=== PATIENT | female | born 1970 | race Caucasian/White ===

== ENCOUNTER → 2018-01-16 15:58 | Outpatient (CLI) | payer MEDICAID, SELFPAY ==
--- NOTE | 2018-01-16 16:04 | MRI_ITS ---
STUDY: MRI LEFT MIDFOOT REASON FOR EXAM: Female, 47 years old. Pain across the metatarsals for 3 months with no known injury. Evaluate for stress injury. TECHNIQUE: Standardized fat and water weighted pulse sequences were obtained in all 3 orthogonal planes. COMPARISON: None. FINDINGS: There is moderate arthrosis of the talonavicular, navicular-cuneiform, cuneiform-metatarsal and metatarsal-tarsal articulations (sagittal series 5 images 2-16). Normal first tarsometatarsal articulation. Normal Lisfranc ligament. Normal second and third tarsometatarsal articulations. Normal cuboid fourth and cuboid fifth tarsometatarsal articulation. There is moderate arthrosis of the first metatarsophalangeal joint (coronal T2 series 8 images 8-14). Normal first through fifth metatarsi. There is no evidence of a stress injury. Normal tibialis anterior tendon. Normal extensor hallucis longus tendon. Normal extensor digitorum longus tendons. Normal peroneus longus tendon and distal insertion. Normal peroneus brevis tendon and distal insertion. Normal intrinsic muscles of the mid and forefoot region. Normal extensor digitorum brevis muscle. Normal subcutis adipose space. 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 No evidence of stress injury. Electronically Signed: Osmany Maldonado MD at 17:14 EDT , Service support ,
== END ==
PROVIDERS: Visit Provider Podiatrist
DX: M84.375A Stress fracture, left foot, initial encounter for fracture (principal); S93.602A Unspecified sprain of left foot, initial encounter; M79.672 Pain in left foot; M25.572 Pain in left ankle and joints of left foot
CPT/HCPCS: 73718

== ENCOUNTER 2018-03-13 13:13 | Emergency (ER) | payer MEDICAID, SELFPAY ==
[2018-03-13 13:14] VITALS: BP 112/80; PULSE 103; RESP 16; TEMP 36.3; O2SAT 97; BMI 33.3
--- NOTE | 2018-03-13 13:23 | RAD_ITS ---
STUDY: X-RAY - RIGHT TIBIA AND FIBULA REASON FOR EXAM: Female, 47 years old. Trauma, pain TECHNIQUE: 3 view(s) of the tibia and fibula were obtained. COMPARISON: Right ankle films, same date FINDINGS: Normal visualized tibia. Normal visualized fibula. There is soft tissue swelling along the lateral aspect of the ankle. RAD/Tibia & Fibula 2 Views IMPRESSION: Lateral soft tissue swelling. No discrete fracture. Electronically Signed: Torey Lopez DO at 14:17 EDT Tel , Service support ,
--- NOTE | 2018-03-13 13:24 | ED.VISSUMM ---
- ER Visit Summary Date of Service: 03/13/18 Chief Complaint: Right ankle injury History of Present Illness: The patient is a 47 F who presents to the emergency department with right ankle injury. Patient was walking downstairs with her hands full. She thinks she missed the last 2 steps. She landed with her foot twisted underneath her. She did not strike her head. She denies other injury. She has been unable to bear weight because of pain. Physical Examination: Exam is relatively unremarkable. Mandel test negative. Pulses are normal. Compartments are soft. Patient does have some mild tenderness at the proximal fibula. She also has some tenderness over the medial and lateral malleolus. No tenderness at the head of the fifth metatarsal. Test Results: [] Emergency Department Course and Treatment: The patient was given oral analgesics. Plain films were obtained of the tib-fib and of the ankle. Tib-fib shows no evidence of acute fracture. Ankle shows soft tissue swelling, but no evidence of acute fracture. The patient will be treated with air splint, crutches, and analgesics. OA RRS report was reviewed and is unremarkable. The patient will be discharged home with outpatient orthopedic follow-up as needed. Treatment Plan: [] Disposition: Charge Impression: 1. Right ankle sprain This note was generated with [employer] dictation software. It may contain incorrect words, spelling, and punctuation that were not noted in review of the chart prior to signing ED Disposition - Plan for ED Patient: Chief Complaint: Lower Extremity Injury Instructions: ED Sprain Ankle W X Ray Prescriptions: Hydrocodone Bitart/Apap 5-325 [[place] 5MG-325MG] 1 tab PO Q6H PRN PRN 3 Days #10 tab PRN Reason: Pain Naproxen [Naprosyn] 500 mg PO BID PRN #20 tab Referrals: NOT,TIAGO [Primary Care Provider] - Mamadou Shane DO [STAFF PHYSICIAN] - 1 Week if not improving
[2018-03-13] MEDS: HYDROcodone Bitartrate/Apap 5/325 Tablet PO (13:30)
--- NOTE | 2018-03-13 13:50 | RAD_ITS ---
STUDY: X-RAY - RIGHT ANKLE REASON FOR EXAM: Female, 47 years old. Trauma, pain TECHNIQUE: 4 view(s) of the ankle. COMPARISON: None. FINDINGS: Normal visualized distal tibia and fibula. Normal medial and lateral malleoli. Normal tibiotalar articulation and ankle mortise. Normal visualized talus and calcaneus. The visualized subtalar, talonavicular, calcaneocuboid and tarsal articulations are normal. There is a lucency seen at the base of the fifth metatarsal, on one view only, which may represent a nondisplaced fracture. There is lateral soft tissue swelling. RAD/Ankle min 3 Views IMPRESSION: Question nondisplaced fracture at the base of the fifth metatarsal. Lateral soft tissue swelling. Electronically Signed: Torey Lopez DO at 14:11 EDT Tel , Service support ,
[2018-03-13 14:29] VITALS: PULSE 90; RESP 16
== END 2018-03-13 14:29 | disposition home or self-care (01) ==
LOC: ED 14:13
PROVIDERS: Emergency Provider Emergency Medicine
DX: S93.401A Sprain of unspecified ligament of right ankle, initial encounter (principal); W10.9XXA Fall (on) (from) unspecified stairs and steps, initial encounter; Y93.9 Activity, unspecified; Y92.89 Other specified places as the place of occurrence of the external cause; Y99.9 Unspecified external cause status; E11.9 Type 2 diabetes mellitus without complications; E78.00 Pure hypercholesterolemia, unspecified; Z72.0 Tobacco use; F32.9 Major depressive disorder, single episode, unspecified
CPT/HCPCS: 73590; 73610; 99284

== ENCOUNTER 2018-06-15 22:07 | Emergency (ER) | payer MEDICAID, SELFPAY ==
[2018-06-15 22:08] VITALS: BP 167/92; PULSE 108; RESP 18; TEMP 36.9; O2SAT 95; BMI 37.0
--- NOTE | 2018-06-15 22:35 | ED.VISSUMM ---
- ER Visit Summary Date of Service: 06/15/18 Chief Complaint: Buttock abscess History of Present Illness: The patient is a 47 F with an abscess to the right buttock first noticed 5 days ago. She has been getting significant drainage at home. No fever Physical Examination: Blood pressure is 167/92. She is afebrile at 98.4. Patient is lying prone on the bed in no acute distress. Heart is regular rate and rhythm. Lung sounds are clear. Skin examination reveals a 3 cm diameter abscess to the medial right buttock. Spontaneous drainage is noted with a large moist scab. There is no surrounding satellite is. There is no remaining fluctuance. Test Results: [] Emergency Department Course and Treatment: Let is applied to the wound. Wound is cleansed and fibrous Is removed as well as possible. Quarter inch packing is placed. Bacitracin ointment and dressing is placed. Patient removed the packing in 2 days. She was treated with a course of Bactrim and Keflex, first doses given here. She is instructed on wound care. Treatment Plan: [] Disposition: Discharge Impression: Cutaneous abscess right buttock This note was generated with [employer] dictation software. It may contain incorrect words, spelling, and punctuation that were not noted in review of the chart prior to signing ED Disposition - Plan for ED Patient: Disposition: Home or Assisted Living Chief Complaint: Abscess Instructions: ED Staph Infec Abx Tx Only Prescriptions: Cephalexin [Keflex] 500 mg PO Q6 #40 capsule Smz/Tmp Ds [Bactrim Ds] 1 tablet PO BID #20 tablet Referrals: [facility] Doctor,Out of [Primary Care Provider] - 5-7 Days
[2018-06-15] MEDS: Lidocaine/Epi/Tetracaine 50 ML 1 APPLIC TOPICAL (22:38)
[2018-06-15] MEDS: Cephalexin 250 MG Capsule 500 MG PO (22:54)
[2018-06-15] MEDS: Smz/Tmp Ds Tablet 1 TABLET PO (22:54)
[2018-06-15 23:17] VITALS: BP 137/89; PULSE 88; RESP 18; O2SAT 97
== END 2018-06-15 23:18 | disposition home or self-care (01) ==
LOC: ED 22:43
PROVIDERS: Emergency Provider Emergency Medicine
DX: L02.31 Cutaneous abscess of buttock (principal); E11.9 Type 2 diabetes mellitus without complications; E78.00 Pure hypercholesterolemia, unspecified; M79.7 Fibromyalgia; Z72.0 Tobacco use; F32.9 Major depressive disorder, single episode, unspecified
CPT/HCPCS: 99283; A4216

== ENCOUNTER 2018-08-02 03:09 | Emergency (ER) | payer MEDICAID, SELFPAY ==
[2018-08-02 03:11] VITALS: BP 158/87; PULSE 97; RESP 14; TEMP 36.7; O2SAT 97
[2018-08-02 03:17] VITALS: BP 159/84; PULSE 95; RESP 18; TEMP 36.9; O2SAT 99; BMI 37.8
--- NOTE | 2018-08-02 03:24 | ED.DCSUM_ITS ---
- ER Visit Summary Date of Service: 08/02/18 Chief Complaint: Vaginal pain History of Present Illness: The patient is a 47 F presents to the emergency department vaginal pain. Patient said the symptoms for the past 3 days. She states it felt like a yeast infection, but it is gotten worse. She is been try ing [id number] remedies with little improvement. She states she felt a bump on the left posterior aspect of her labia. She states it hurts to sit and move. She denies any fevers or chills. She is an insulin-dependent diabetic. She states that her sugars been running normally. She is been taking Tylenol with little improvement. She does have an appointment with her DIRECTOR OF QUALITY CONTROL, but not until Friday. Physical Examination: Exam is relatively unremarkable. exam was done with female nurse international manager. The patient has a lot of erythema of the external vaginal canal. She does have a small indurated area the posterior lateral aspect of the left Bartholin's gland, but there is no fluctuance or evidence of abscess. There is adherent white plaque consistent with yeast vaginitis, but no discharge. There is no streaking or evidence of Suellen gangrene. There is no cellulitis down the legs. Test Results: [] Emergency Department Course and Treatment: The patient may have an early Bartholin's gland cyst, but there is no central fluctuance. I do not feel that incision and drainage is appropriate at this time. I did obtain a urine. The patient is also treated with oral Diflucan given the significant evidence of vaginitis and erythema. Her urine shows no evidence of infection. I am going to start the patient on Bactrim. She was counseled on using warm compresses. She does have follow-up in place within 48 hours with her FACULTY RESEARCH ASSISTANT. I do feel that this is safe. She was counseled on concerning symptoms and reasons to return. She will be discharged home. Treatment Plan: [] Disposition: Discharge Impression: 1. Yeast vaginitis 2. Bartholin's gland cyst This note was generated with [employer] software. It may contain incorrect words, spelling, and punctuation that were not noted in review of the chart prior to signing ED Disposition - Plan for ED Patient: Chief Complaint: Abd Pain Instructions: ED Vaginal Infec Fungal Noni Prescriptions: Fluconazole [Diflucan] 150 mg PO X1 #1 tab Smz/Tmp Ds [Bactrim Ds] 1 tab PO BID #14 tab Referrals: Jessie Grey MD [STAFF PHYSICIAN] -
[2018-08-02] MEDS: Fluconazole 100 MG Tablet 150 MG PO (03:26)
[2018-08-02 03:38] LABS: Bacteria 0 SEEN /hpf (None Seen); Mucous, Urine 0 SEEN /hpf (<or=2+); Red Blood Cells-Urine 0 SEEN /hpf (0-5)
[2018-08-02 03:41] LABS: Color, Urine Straw (Yellow); Glucose, Dipstick 1000 mg/dl (Normal); Ketone-Dipstick Negative (Negative); Leukocyte Esterase-Dipstick 25 /ul (Negative); Nitrite-Dipstick Negative (Negative); Occult Blood-Urine Negative /ul (Negative); Protein-Dipstick Negative (Negative); Specific Gravity, Urine 1.015 (1.002-1.030); Urine Bilirubin Dipstick Negative (Negative); Urine Clarity Clear (Clear); Urine Urobilinogen Normal (Normal); Urine pH 6.5 (5.0 - 8.0)
[2018-08-02 03:48] LABS: Squamous Epithelial Cells - UA 0-5 SEEN /hpf (5-10)
[2018-08-02 03:49] LABS: White Blood Cells 0-5 SEEN /hpf (0-5)
[2018-08-02] MEDS: HYDROcodone Bitartrate/Apap 5/325 Tablet PO (03:59)
[2018-08-02] MEDS: Smz/Tmp Ds Tablet 1 TABLET PO (03:59)
== END 2018-08-02 04:01 | disposition home or self-care (01) ==
PROVIDERS: Emergency Provider Emergency Medicine; Family Provider Family Medicine; PCP Family Medicine
DX: B37.3 Candidiasis of vulva and vagina (principal); N75.0 Cyst of Bartholin's gland; E11.9 Type 2 diabetes mellitus without complications; Z79.4 Long term (current) use of insulin; Z87.891 Personal history of nicotine dependence
CPT/HCPCS: 81001; 99283

== ENCOUNTER 2019-05-18 22:29 | Emergency (ER) | payer MEDICAID, SELFPAY ==
[2019-05-10 09:36] VITALS: BMI 37.8
[2019-05-18 22:30] VITALS: BP 173/101; PULSE 106; RESP 20; TEMP 36.6; O2SAT 98; BMI 37.6
[2019-05-18] MEDS: HYDROcodone Bitartrate/Apap 5/325 Tablet PO (22:52)
[2019-05-18] MEDS: 0.9% Normal Saline 1,000 ML 999 ML IV (22:53)
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
[2019-05-18] MEDS: Pregabalin 50 MG Capsule PO (23:01)
--- NOTE | 2019-05-18 23:06 | ED.RN ---
lab called with critical lab results. Glucose 518. Dr. Kent made aware. no new orders at this time
[2019-05-18 23:08] LABS: ALB/GLOB Ratio 0.9 RATIO (0.9-2.4); AST(SGOT) 8 U/L (15-37); Alanine Aminotransfer ALT/SGPT 16 U/L (13-56); Albumin, Serum 3.5 g/dL (3.2-5.0); Alkaline Phosphatase 133 U/L (45-117); Anion Gap 7 (5-15); BUN 25 mg/dL (7-18); BUN/Creat Ratio 17.4 RATIO (10-20); Calcium,Total 8.8 mg/dL (8.5-10.1); Chloride 99 mmol/L (98-107); Creatinine, Serum 1.44 mg/dL (0.55-1.02); EST Glomerular Filtration Rate 41 mL/min (>60); Est Glom Filt Rate - Afr Amer 50 mL/min (>60); Estimated Creatinine Clearance 43.46 ml/min; Glucose 518 mg/dL (74-106); Protein, Total 7.5 g/dL (6.4-8.2); Sodium Level 131 mmol/L (136-145)
[2019-05-18] MEDS: Insulin Lispro 100 UNIT/ML INSULN.PEN 15 UNIT IV (23:45)
[2019-05-19 00:56] LABS: Bedside Glucose 497 mg/dL (70-110)
[2019-05-19 01:12] VITALS: BP 114/68; PULSE 78; RESP 16; O2SAT 95
[2019-05-19 02:51] LABS: Bedside Glucose 194 mg/dL (70-110)
[2019-05-19 03:05] VITALS: BP 99/65; PULSE 90; RESP 18; O2SAT 96
== END 2019-05-19 03:17 | disposition home or self-care (01) ==
PROVIDERS: Emergency Provider Emergency Medicine; Family Provider Internal Medicine; PCP Internal Medicine
DX: E11.42 Type 2 diabetes mellitus with diabetic polyneuropathy (principal); Z91.19 Patient's noncompliance with other medical treatment and regimen; Z91.14 Patient's other noncompliance with medication regimen; E11.65 Type 2 diabetes mellitus with hyperglycemia; F32.9 Major depressive disorder, single episode, unspecified; M79.7 Fibromyalgia; E78.00 Pure hypercholesterolemia, unspecified; Z89.411 Acquired absence of right great toe
CPT/HCPCS: 80048; 80053; 82009; 82962; 96360; 99285; J7030; A4216

== ENCOUNTER → 2019-05-21 15:59 | Outpatient (CLI) | payer MEDICAID, SELFPAY ==
[2019-05-18 22:30] VITALS: BMI 37.6
[2019-05-21 18:55] LABS: M R Staph aureus DNA By PCR Negative (Negative); Probe Check PASS; Specimen Processing Control PASS; Staph aureus DNA By PCR NEGATIVE (Negative)
== END ==
PROVIDERS: Family Provider Internal Medicine; PCP Internal Medicine; Referring Provider Podiatrist; Visit Provider Podiatrist
DX: L60.0 Ingrowing nail (principal)
CPT/HCPCS: 87070; 87075; 87077; 87186; 87205; 87640

== ENCOUNTER 2019-06-12 09:08 | Inpatient (IN) | payer MEDICAID, SELFPAY ==
[2019-06-12] VITALS (10 sets, daily range): BP systolic 102–145; BP diastolic 1–81; PULSE 99–102; RESP 16–19; TEMP 36.9–39.1; O2SAT 94–99; BMI 35.9; BMI 36.8
--- NOTE | 2019-06-12 09:44 | ED.VIS.LOWEX ---
History of Present Illness Informant: Patient Occurred: Weeks - 7 days Mechanism/Context: - - post surgical wound Onset: Days - 7 Context: Gradual Onset Timing: Continuous Quality of Pain: Aching Location: right 2nd toe Current Severity: Moderate Maximum Severity: Severe Worsened by: nothing Relieved by: nothing Associated Symptoms: Negative for: Parasthesia, Weakness, Loss of Funtion Narrative: 48-year-old female presents to the emergency department for a wound check right second toe. Had a callus removed by podiatry 8 days ago. For the last 2 days has noticed worsening signs of infection. The toe is red and swollen. No drainage. No fevers. Having mild to moderate pain. No trauma. Able to ambulate. History of a right great toe amputation. She has not yet been placed on antibiotics. She has not had a fever. She denies any other review of systems. Tetanus Immunization: Unknown Prior similar symptoms: Yes Recent Illness/Hospitalization: No <Abdulaziz Chaney - Last Filed: 06/12/19 11:41> <Zane Sanz - Last Filed: 06/12/19 14:49> Chief Complaint: Lower Extremity Injury Past Medical History Prior records reviewed: Yes Past Medical History: - - Insulin-dependent diabetes, diabetic neuropathy, right great toe amputation Surgical History: - - T+A, BLTL. Smoking Status: Light Smoker (<10/day) - Family History Maternal Family History: Reports: - - Thyroid disease. Paternal Family History: Reports: Asthma <Abdulaziz Chaney - Last Filed: 06/12/19 11:41> <Zane Sanz - Last Filed: 06/12/19 14:49> - Allergies and Home Meds Allergies/Adverse Reactions: Allergies clindamycin Allergy (Verified 05/18/19 22:30) Hives erythromycin base [From E-Mycin] Allergy (Verified 05/18/19 22:30) Hives Review of Systems All systems negative except as indicated General: Denies: Chills, Fever Skin: Reports: Wounds <Abdulaziz Chaney - Last Filed: 06/12/19 11:41> Physical Exam Vital Signs/Narrative: Vital Signs Temp Pulse Resp BP Pulse Ox 06/12/19 09:10 98.9 F 102 H 19 H 121/63 H 98 Inital Vital Signs reviewed: Yes - Extremity Exam Right Foot: - - Right great toe amputation seen. The right second toe is red and swollen there is a small amount of induration and fluctuance on the medial border of the nail. The nail is intact. There is no lymphatic streaking to the proximal toe or into the foot. DP and PT pulse normal. No other redness noted of the foot or the right lower extremity. Cap refill of the second toe is normal. Sensation diminished but this is chronic from her neuropathy. General: Well nourished, Well developed Head: Normocephalic, Atraumatic Eyes: Perrl, EOMI ENT: No Trauma, Moist Mucous Membranes Neck: Nontender, Full ROM Cardiovascular: Regular rate, Regular rhythm, No murmurs Respiratory: No distress, CTA bilaterally, Chest nontender Abdomen: Soft, Nontender, Nondistended, Normal bowel sounds, No masses Back: Nontender Skin: Normal color, No rash Neurological: Alert, Oriented x3 <Abdulaziz Chaney - Last Filed: 06/12/19 11:41> Vital Signs/Narrative: Vital Signs Temp Pulse Resp BP Pulse Ox 06/12/19 12:32 101.4 F H 102 H 19 H 135/81 H 06/12/19 12:30 101.4 F H 102 H 19 H 135/81 H 99 <Zane Sanz - Last Filed: 06/12/19 14:49> Diagnostic/Tx/Re-eval X-ray of foot interpreted by emergency physician shows no acute osteomyelitis fracture or other acute bony abnormality - Medical Decision Making Patient appears to have a localized infection of the toe with a paronychia. There is no lymphatic streaking. She does not have a fever. Her white blood cell count is not elevated. X-ray shows no osteomyelitis. She has not yet failed outpatient antibiotic therapy. With an 18-gauge needle I was able to de-roof the area of infection on the medial aspect of the toenail with removal of pus. I left this area open. There is no evidence of infection extending under the nail. She was given 1 dose of vancomycin in the emergency department as the patient was concerned for worsening infection because she does have a history of a amputation of her great toe on the same foot. She has an allergy to clindamycin we will place on Bactrim and Keflex. Follow-up on Friday in 48 hours with podiatry <Abdulaziz Chaney Last Filed: 06/12/19 11:41> - Medical Decision Making Saw the patient in conjunction with the physician corporate legal assistant. She has history of diabetes. Right second toe is erythematous. Draining pus after callus removal by podiatry. Patient had a fever here. Pus on exam. X-rays unremarkable. Labs unremarkable. She does meet sirs criteria and has signs of a skin infection. Hospitalist was contacted to admit for further care. Patient was started on antibiotics. <Zane Sanz - Last Filed: 06/12/19 14:49> ED Disposition <Abdulaziz Chaney - Last Filed: 06/12/19 11:41> <Zane Sanz - Last Filed: 06/12/19 14:49> - Plan for ED Patient: Disposition: Acute Care Hospital [facility] Diagnosis: Infection of toe, Diabetes mellitus, type II
--- NOTE | 2019-06-12 10:00 | RAD_ITS ---
STUDY: X-RAY - RIGHT FOOT CLINICAL: Female, 48 years old. Infection 2nd right toe TECHNIQUE: 3 view(s) of the foot. COMPARISON: None. FINDINGS: There is generalized soft tissue swelling of the 2nd digit. There has been amputation of the 1st digit across the metatarsal phalangeal joint. There is somewhat prominent fullness of the soft tissues overlying the distal 1st metatarsal. There is no deep soft tissue gas or radiodense foreign body. There are no lytic or permeative features of the bones. There is dorsal distal foot soft tissue swelling. Small plantar calculus spur. RAD/Foot min 3 Views IMPRESSION: Diffuse soft tissue swelling of the 2nd digit with possible soft tissue swelling extending into the soft tissues distal to the 1st digit amputation. No deep soft tissue gas. No radiographic features of bone erosion to suggest ostial myelitis. Electronically Signed: Sinan Dowd MD at 11:27 EDT Tel , Service support ,
[2019-06-12 10:04] LABS: Absolute Lymphocyte Count 0.87 X10^3/uL (0.83-4.51); Absolute Neutrophil Count 7.1 X10^3/uL (2.0-7.7); Basophil# 0.03 X10^3/uL; Basophil% 0.4 % (0-1); Eosinophil# 0.01 X10^3/uL; Eosinophils% 0.1 % (0-5); Hematocrit 36.8 % (37-47); Lymphocyte # 0.87 X10^3/ul (4.0); Lymphocyte % 10.3 % (19-41); Mean Corp Hgb Conc 32.6 g/dL (32-36); Monocyte# 0.33 X10^3/uL; Monocyte% 3.9 % (0-10); NRBC Flagged by Analyzer 0 % (0-5); Neutrophil # 7.12 X10^3/uL (2.7-7.7); Neutrophil % 84.6 % (47-70); POSITIVE COUNT YES; RBC Distribution Width CV 13.4 % (11.6-14.6); RBC Distribution Width SD 42.3 fl (35.1-43.9); Red Blood Count 4.28 M/mm3 (4.2-5.4); White Blood Count 8.4 K/mm3 (4.4-11.0)
[2019-06-12 10:24] LABS: Differential Indicated SCAN CRITERIA MET
[2019-06-12 10:25] LABS: Platelet Estimate SLT DEC (ADEQ); Platelet Morphology CLUMPED
[2019-06-12 10:36] LABS: Anion Gap 8 (5-15); BUN 18 mg/dL (7-18); BUN/Creat Ratio 19.1 RATIO (10-20); Calcium,Total 8.2 mg/dL (8.5-10.1); Chloride 106 mmol/L (98-107); Creatinine, Serum 0.94 mg/dL (0.55-1.02); EST Glomerular Filtration Rate 68 mL/min (>60); Est Glom Filt Rate - Afr Amer 82 mL/min (>60); Estimated Creatinine Clearance 66.58 ml/min; Glucose 327 mg/dL (74-106); Potassium 3.6 mmol/L (3.5-5.1); Sodium Level 136 mmol/L (136-145)
[2019-06-12] MEDS: Acetaminophen 325 MG Tablet 650 MG PO (12:32)
--- NOTE | 2019-06-12 12:56 | NURSING ---
MED SURG SEMENTI SEPSIS, DIABETIC TOE INFECTION
--- NOTE | 2019-06-12 13:30 | CON.PCM_ITS ---
Problem List (1) Infection of toe Status: Acute (2) Cellulitis of foot, right Status: Acute (3) Type 2 diabetes mellitus with diabetic polyneuropathy Status: Chronic (4) Hammer toe of right foot Status: Chronic Reason for Consult Date of Consultation: 06/12/19 Reason for Consultation: Right foot infection History of Present Illness: The patient is a 48 year old F with significant past medical history of diabetes with neuropathy was seen bedside for right second toe infection. The onset was 2 to 3 days ago when she noticed some redness. She denies known trauma or active drainage. She relates drainage was first noticed when she presented to the emergency room and this was trimmed down by one of the emergency room providers. She denies foot pain however relates she usually does not feel her feet due to her neuropathy. She reports that she has subjective fever, chills, and nausea. She denies vomiting. She reports claudication symptoms after walking a half a block. She has rest paresthesias. She routinely sees Dr. Acuña in the outpatient setting for diabetic foot assessments and palliative care. She saw Dr. Acuña approximately one week ago and did not have any ulcers or infections at that time. Past Medical History Past Medical History (Chronic Problems): Chronic Problems Type 2 diabetes mellitus with diabetic polyneuropathy (Chronic) Hammer toe of right foot (Chronic) Obesity (BMI 30-39.9) (Chronic) Vertigo (Chronic) Hyperlipidemia (Chronic) Fibromyalgia (Chronic) Depression with anxiety (Chronic) Depression (Chronic) Diabetes mellitus, type II (Chronic) Allergies clindamycin Allergy (Verified 05/18/19 22:30) Hives erythromycin base [From E-Mycin] Allergy (Verified 05/18/19 22:30) Hives Home Medications: Ambulatory Orders Medication Instructions Recorded Duloxetine Hcl [Cymbalta] 60 mg PO DAILY 10/30/13 Insulin Aspart [Novolog Flexpen] 20 units SC TIDCM 10/30/13 Insulin Detemir [Levemir (BKC)] 45 units SC QHS #0 10/30/13 Multivitamins,Therapeutic 1 tablet PO DAILY 06/13/14 [Multivitamin] Fluticasone 44 Mcg [Flovent (SP)] 2 puff INHALATION BID PRN 10/17/17 Hydrochlorothiazide 50 mg PO DAILY 10/17/17 Levothyroxine [Synthroid] 112 mcg PO DAILY 10/17/17 Meclizine HCl 25 mg PO TID PRN 10/17/17 Ondansetron [Zofran Odt] 4 mg PO DAILY PRN 10/17/17 Famotidine [Pepcid] 20 mg PO DAILY 05/18/19 Hydroxyzine Pamoate [Vistaril] 50 mg PO TID PRN PRN 05/18/19 Lisinopril [Zestril] 20 mg PO DAILY 05/18/19 Cephalexin [Keflex] 500 mg PO Q12 #14 cap 06/12/19 Pregabalin [Lyrica] 100 mg PO BID 06/12/19 Smz/Tmp Ds [Bactrim Ds] 1 tab PO BID #14 tab 06/12/19 traZODone [Desyrel] 50 mg PO QHS 06/12/19 Surgical History: - - T+A, BLTL. 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 Paternal History Items: Asthma Review of Systems Constitutional: Reports: Fever, Weakness, Fatigue Cardiovascular: Reports: Claudication. Denies: Chest Pain, Orthopnea Respiratory: Denies: Shortness of Breath Gastrointestinal: Reports: Nausea. Denies: Vomiting Musculoskeletal: Denies: Foot Pain, Joint Tenderness, Leg Pain Skin: Reports: Skin Changes Neurological: Reports: Balance problems, Incoordination, Numbness, Tingling Psychiatric: Reports: Anxiety, Depression Patient Problems: Active and Suspected Problems Infection of toe (Acute) Cellulitis of foot, right (Acute) - Physical Exam General: Alert, Oriented x3, Cooperative HEENT: Atraumatic Extremities: No cyanosis, Capillary Refill Less than 3 Seconds - All digits left foot and all remaining digits right foot, No Calf Tenderness - Negative Dominic and Sosa sign bilateral. Compartments are soft to palpate to the right lower extremity and there is no bogginess or fluctuance on palpation, Edema - Mild right second toe and forefoot, Peripheral Pulses Normal - 2/4 PT and DP pulses bilateral lower extremities, Tenderness - No pain with ulcer or second toe palpation Skin: Ulcer/ Wound - Upon callus debridement of the right second distal toe there is a fibrous base ulcer that measures 0.4 x 0.4 x 0.1 cm in size post debridement. The pre-debridement measurement was 0.1 x 0.1 x 0.1 cm. She also has an excoriation to the dorsal distal aspect of the right second toe proximal to the nailbed. There is no probing to bone or joint. There is no purulence on expression. There is intense erythema that is involving the dorsal right second toe that extends to the sulcus level. She does have edema that extends to the forefoot. The nail is well adhered. There is no interdigital maceration., - - There is a right hallux amputation with well-healed cicatrix Musculoskeletal: No Tenderness to Palpation of Joints or Extremities, Muscle Wasting, - - Active range of motion digits bilateral Neurological: - - Lack of normal epicritic sensation light touch is consistent with her neuropathy status Psych/Mental Status: Normal Affect, Appropriate Vital Signs Temp Pulse Resp BP Pulse Ox 101.0 F H 100 16 127/64 H 97 06/12/19 13:16 06/12/19 13:16 06/12/19 13:16 06/12/19 13:16 06/12/19 13:16 Oxygen Delivery Method Room Air Weight: 97.976 kg Body Mass Index (BMI) 35.9 Finger Stick Blood Glucose 496 Intake and Output for Last 24 Hours 06/10/19 06/11/19 06/12/19 23:59 23:59 23:59 Intake Total 530 / 530 Balance 530 / 530 Laboratory Tests Past 24 Hrs 06/12/19 06/12/19 06/12/19 09:47 09:47 09:47 WBC 8.4 RBC 4.28 Hgb 12.0 Hct 36.8 L MCV 86.0 MCH 28.0 MCHC 32.6 RDW Std Deviation 42.3 RDW Coeff of Brea 13.4 Plt Count TNP MPV 10.0 Immature Gran % (Auto) 0.700 Neut % (Auto) 84.6 H Lymph % (Auto) 10.3 L [place] % (Auto) 3.9 Eos % (Auto) 0.1 Baso % (Auto) 0.4 Absolute Neuts (auto) 7.1 Absolute Lymphs (auto) 0.87 Nucleated RBC % 0 Platelet Estimate SLT DEC Plt Morphology Comment CLUMPED Sodium 136 Potassium 3.6 Chloride 106 Carbon Dioxide 22.0 Anion Gap 8 BUN 18 Creatinine 0.94 Estim Creat Clear Calc 66.58 Est GFR (MDRD) Af Amer 82 Est GFR (MDRD) Non-Af 68 BUN/Creatinine Ratio 19.1 Glucose 327 H Lactic Acid Pending Calcium 8.2 L Assessment/Plan All Active Problems Infection of toe (Acute) Cellulitis of foot, right (Acute) Encounter for examination required by Department of Transportation (DOT) (Acute) Right second toe cellulitis Right distal second toe ulcer with fat layer exposed; torres grade 1 Hammertoe deformity right Diabetes with neuropathy surgical shoe; this will be ordered Claudication Other comorbidities I reviewed and discussed her case. She does have a fever of 101 and she is tachycardic. She does not have leukocytosis; her white blood cell count is 8.4. ESR, CRP, and hemoglobin A1C are pending. Three radiographic views of her right foot were evaluated. There is no soft tissue emphysema, foreign body, or osseous destruction to the second toe. Hammertoe deformities noted with dorsal contraction. No acute injuries are noted. Previous hallux amputation is noted. Clinically, the ulcer is noted and verbal consent was obtained to debride the callus and any potential ulcer that is present. This was performed with a 15 blade scalpel to excise devitalized subcutaneous tissue, fibrous tissue, biofilm, and slough. An ulcer was identified and a deep wound culture was obtained for aerobic, anaerobic, and MRSA PCR. Pressure was applied to maintain hemostasis. And a dry gauze was applied. I recommend changing this ulcer site daily with [employer]. Clinically, she appears to have a right foot infection including cellulitis with systemic response. She is going to be admitted for IV antibiotics (vanco, zosyn, levofloxacin); this was initiated in the emergency room. It is noted there is no deep probing to bone. This will be clinically monitor while in house. If she fails to respond to the IV antibiotics, further work-up will be performed including advanced imaging. However at this time no surgical intervention is recommended. I recommend she offloads the ulcer site by right heel weightbearing in a surgical shoe; this will be ordered. Due to her claudication symptoms I do also recommend noninvasive vascular studies. She can obtain this while in house or the outpatient setting. Her palpable pulses are noted and I do not suspect critical limb ischemia at this time. Medical management and DVT prophylaxis per primary team is appreciated. I will continue to follow her closely one house. The consultation is appreciated. Prabhjot dominguez do not hesitate to call if you have any questions. Marge Martin DPM, [facility] [phone]
[2019-06-12 13:43] LABS: Lactic Acid 1.4 mmol/L (0.4-2.0)
--- NOTE | 2019-06-12 14:11 | ART_ITS ---
Reason For Study: Claudication Procedure A bilateral lower extremity continuous wave Doppler with analog waveform analysis,segmental pressures,and ankle brachial indexes without exercise. Left Segmental Pressures Left brachial= 133mmHg. Left posterior tibial artery = 150mmHg. Left dorsalis pedis artery = 144mmHg. Left digit = 123 mmHg. The left dorsalis pedis waveforms are triphasic. The left posterior tibial artery waveforms are triphasic. Right Segmental Pressures Right brachial= 122mmHg. Right posterior tibial artery = 149mmHg. Right dorsalis pedis artery = 142mmHg. The right dorsalis pedis waveforms are triphasic. The right posterior tibial artery waveforms are triphasic. Indices The right ankle brachial index by the dorsalis pedis is 1.07. The right ankle brachial index by the posterior tibial artery is 1.12. The left ankle brachial index by the dorsalis pedis is 1.08. The left ankle brachial index by the posterior tibial artery is 1.13. The left digital-brachial index is 0.92. Interpretation Summary Triphasic Doppler waveforms are noted at ankle level bilaterally. Pulse-volume recording waveform amplitudes appear satisfactory at all levels bilaterally, though were not determined at digital level on the right due to bandaging. Resting ankle-brachial indices are normal bilaterally. The right digital-brachial index was not determined due to bandaging. The left digital-brachial index is normal. There is no evidence of significant arterial occlusive disease in the lower extremities bilaterally. Ordering Physician: Marge Martin Referring Physician: Shirley Garcia Performed By: Chica Nunez RVT
[2019-06-12 14:38] LABS: Erythrocyte Sedimentation Rate 26 mm/hr (0-20)
[2019-06-12 14:48] LABS: AST(SGOT) 9 U/L (15-37); Alanine Aminotransfer ALT/SGPT 15 U/L (13-56); Albumin, Serum 2.9 g/dL (3.2-5.0); Alkaline Phosphatase 114 U/L (45-117); Bilirubin, Direct 0.13 mg/dL (0.00-0.30); Globulin 3.8 g/dL (2.2-4.2); Phosphorus 2.5 mg/dL (2.5-4.9); Protein, Total 6.7 g/dL (6.4-8.2)
[2019-06-12 14:50] LABS: Magnesium 1.6 mg/dL (1.6-2.6)
[2019-06-12 14:57] LABS: Hemoglobin A1c 10.5 % (4.2-6.3)
--- NOTE | 2019-06-12 14:58 | PCM.RX.CS ---
Consult Pharmacy has been consulted to manage selected antiobiotic: Vancomycin Type of Consult: New start Suspected Infection: Skin/Soft tissue Prior Doses of Antibiotics Received/Current Regimen: Received 1500mg IV x1 starting at 10:27 this morning in E.R. Labs: Sodium 136 mmol/L (136-145) 06/12/19 09:47 Potassium 3.6 mmol/L (3.5-5.1) 06/12/19 09:47 Chloride 106 mmol/L (98-107) 06/12/19 09:47 Carbon Dioxide 22.0 mmol/L (21.0-32.0) 06/12/19 09:47 Anion Gap 8 (5-15) 06/12/19 09:47 BUN 18 mg/dL (7-18) 06/12/19 09:47 Creatinine 0.94 mg/dL (0.55-1.02) 06/12/19 09:47 Est GFR (MDRD) Af Amer 82 mL/min (>60) 06/12/19 09:47 Est GFR (MDRD) Non-Af 68 mL/min (>60) 06/12/19 09:47 BUN/Creatinine Ratio 19.1 RATIO (10-20) 06/12/19 09:47 Glucose 327 mg/dL (74-106) H 06/12/19 09:47 Weight used for dosin kg Estimated Creatinine Clearance: 87 ml/min Goal Trough: 15-20 mcg/mL Pharmacy Plan for Drug Dosing: Continue with 1750mg IV q12h starting approximately 12 hours after the first dose in E.R. was given. The patient's CrCl of 87 ml/min was calculated using an adjusted body weight of 74.2 kg. A trough will be drawn before the 4th total dose. Pharmacy Service will continue to monitor and adjust dosing as required. Follow-Up Labs: Trough Vancomycin Labs to be done on [date and time ordered]: 06/13/19 21:30
--- NOTE | 2019-06-12 15:00 | HP.PCM_ITS ---
Problem List (1) Infection of toe Status: Acute (2) Type 2 diabetes mellitus with diabetic polyneuropathy Status: Chronic (3) Hammer toe of right foot Status: Chronic (4) Cellulitis of foot, right Status: Acute (5) Obesity (BMI 30-39.9) Status: Chronic (6) Vertigo Status: Chronic (7) Hyperlipidemia Status: Chronic (8) Fibromyalgia Status: Chronic (9) Depression with anxiety Status: Chronic History of Present Illness Date of Admission: 06/12/19 Chief Complaint: Right second toe redness, fever. The patient is a 48 year old F who presents emergency room due to right second toe ulcer with drainage, redness as well as fever/chills. Patient follows with Dr. Acuña, podiatry and had callus of her right second toe removed a week ago. She reports 2 days ago she began having fever, chills, nausea and noticed right second toe ulceration with redness and drainage. She denies pain. She has a history of right great toe amputation complicated by multi-organism infection. This is now healed. She denies other associated complaints. Patient reports her blood sugars are hit or miss and admits she does not check them routinely. She has a past medical history of type 2 diabetes mellitus with diabetic polyneuropathy, tobacco dependence, hypertension, hyperlipidemia, hypothyroidism, fibromyalgia, obesity. Past Medical History Past Medical History (Chronic Problems): Chronic Problems Type 2 diabetes mellitus with diabetic polyneuropathy (Chronic) Hammer toe of right foot (Chronic) Obesity (BMI 30-39.9) (Chronic) Vertigo (Chronic) Hyperlipidemia (Chronic) Fibromyalgia (Chronic) Depression with anxiety (Chronic) Allergies clindamycin Allergy (Verified 05/18/19 22:30) Hives erythromycin base [From E-Mycin] Allergy (Verified 05/18/19 22:30) Hives Home Medications: Ambulatory Orders Medication Instructions Recorded Duloxetine Hcl [Cymbalta] 60 mg PO DAILY 10/30/13 Insulin Aspart [Novolog Flexpen] 20 units SC TIDCM 10/30/13 Insulin Detemir [Levemir (BKC)] 45 units SC QHS #0 10/30/13 Multivitamins,Therapeutic 1 tablet PO DAILY 06/13/14 [Multivitamin] Fluticasone 44 Mcg [Flovent (SP)] 2 puff INHALATION BID PRN 10/17/17 Hydrochlorothiazide 50 mg PO DAILY 10/17/17 Levothyroxine [Synthroid] 112 mcg PO DAILY 10/17/17 Meclizine HCl 25 mg PO TID PRN 10/17/17 Ondansetron [Zofran Odt] 4 mg PO DAILY PRN 10/17/17 Famotidine [Pepcid] 20 mg PO DAILY 05/18/19 Hydroxyzine Pamoate [Vistaril] 50 mg PO TID PRN PRN 05/18/19 Lisinopril [Zestril] 20 mg PO DAILY 05/18/19 Cephalexin [Keflex] 500 mg PO Q12 #14 cap 06/12/19 Pregabalin [Lyrica] 100 mg PO BID 06/12/19 Smz/Tmp Ds [Bactrim Ds] 1 tab PO BID #14 tab 06/12/19 traZODone [Desyrel] 50 mg PO QHS 06/12/19 Surgical History: - - T+A, BLTL, appendectomy, right great toe amputation. 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 Alcohol: None Drugs: None - *Family History Maternal History Items: - - Thyroid disease. Paternal History Items: Asthma, - - Denies known paternal medical history including cardiac history. Review of Systems Constitutional: Reports: Chills, Fever, Malaise HEENT: Denies: Head Aches, Sinus Congestion, Sinus Drainage Cardiovascular: Denies: Chest Pain, Palpitations Respiratory: Denies: Cough, Shortness of breath at rest, Sputum production Gastrointestinal: Reports: Nausea. Denies: Abdominal Pain, Vomiting Genitourinary: Denies: Dysuria Musculoskeletal: Denies: Joint Pain, Joint Tenderness Skin: Reports: - - Right second toe ulceration with redness and drainage. Neurological: Denies: Numbness, Tingling, Focal weakness Psychiatric: Reports: Anxiety, Depression Hematologic/ Lymphatic: Denies: Easy Bruising, Easy Bleeding VTE Information - Inpt Only VTE Present on Admission: No VTE Mechan Device Prophylaxis: None VTE Pharm Prophylaxis ordered?: Yes Patient Problems: Active and Suspected Problems Infection of toe (Acute) Cellulitis of foot, right (Acute) - Physical Exam General: Alert, Oriented x3, Cooperative HEENT: Atraumatic, PERRLA, EOMI, Normocephalic Neck: Supple, No JVD, Negative Carotid Bruits Lungs: Clear to auscultation, Diminished Cardiovascular: Regular rate, Regular Rhythm, Normal S1, Normal S2, No murmurs Abdomen: Bowel Sounds Present, Soft, Non Tender, Non-Distended Extremities: No clubbing, No cyanosis, No edema, Capillary Refill Less than 3 Seconds Skin: - - Right second toe ulceration, dressing clean dry and intact. No drainage evident. Musculoskeletal: No Tenderness to Palpation of Joints or Extremities Neurological: Cranial nerves II-XII grossly intact, Neuro grossly intact Psych/Mental Status: Flat Affect Vital Signs Temp Pulse Resp BP Pulse Ox 98.8 F 99 18 109/56 L 98 06/12/19 14:15 06/12/19 14:15 06/12/19 14:15 06/12/19 14:15 06/12/19 14:15 Oxygen Delivery Method Room Air Weight: 221 lb 1.6 oz Body Mass Index (BMI) 36.8 Finger Stick Blood Glucose 496 Intake and Output for Last 24 Hours 06/10/19 06/11/19 06/12/19 23:59 23:59 23:59 Intake Total 630 / 630 Balance 630 / 630 Laboratory Tests Past 24 Hrs 06/12/19 06/12/19 06/12/19 09:47 09:47 09:47 WBC 8.4 RBC 4.28 Hgb 12.0 Hct 36.8 L MCV 86.0 MCH 28.0 MCHC 32.6 RDW Std Deviation 42.3 RDW Coeff of Brea 13.4 Plt Count TNP MPV 10.0 Immature Gran % (Auto) 0.700 Neut % (Auto) 84.6 H Lymph % (Auto) 10.3 L [place] % (Auto) 3.9 Eos % (Auto) 0.1 Baso % (Auto) 0.4 Absolute Neuts (auto) 7.1 Absolute Lymphs (auto) 0.87 Nucleated RBC % 0 Platelet Estimate SLT DEC Plt Morphology Comment CLUMPED ESR Sodium 136 Potassium 3.6 Chloride 106 Carbon Dioxide 22.0 Anion Gap 8 BUN 18 Creatinine 0.94 Estim Creat Clear Calc 66.58 Est GFR (MDRD) Af Amer 82 Est GFR (MDRD) Non-Af 68 BUN/Creatinine Ratio 19.1 Glucose 327 H Hemoglobin A1c Lactic Acid 1.4 Calcium 8.2 L Phosphorus Magnesium Total Bilirubin Direct Bilirubin AST ALT Alkaline Phosphatase C-React Prot Ext Range Total Protein Albumin Globulin S.aureus Protein A PCR MRSA (PCR) 06/12/19 06/12/19 06/12/19 13:38 Unknown Unknown WBC RBC Hgb Hct MCV MCH MCHC RDW Std Deviation RDW Coeff of Brea Plt Count MPV Immature Gran % (Auto) Neut % (Auto) Lymph % (Auto) [place] % (Auto) Eos % (Auto) Baso % (Auto) Absolute Neuts (auto) Absolute Lymphs (auto) Nucleated RBC % Platelet Estimate Plt Morphology Comment ESR 26 H Sodium Potassium Chloride Carbon Dioxide Anion Gap BUN Creatinine Estim Creat Clear Calc Est GFR (MDRD) Af Amer Est GFR (MDRD) Non-Af BUN/Creatinine Ratio Glucose Hemoglobin A1c Lactic Acid Calcium Phosphorus Magnesium 1.6 Total Bilirubin Direct Bilirubin AST ALT Alkaline Phosphatase C-React Prot Ext Range 68.60 H Total Protein Albumin Globulin S.aureus Protein A PCR Pending MRSA (PCR) Pending 06/12/19 06/12/19 Unknown Unknown WBC RBC Hgb Hct MCV MCH MCHC RDW Std Deviation RDW Coeff of Brea Plt Count MPV Immature Gran % (Auto) Neut % (Auto) Lymph % (Auto) [place] % (Auto) Eos % (Auto) Baso % (Auto) Absolute Neuts (auto) Absolute Lymphs (auto) Nucleated RBC % Platelet Estimate Plt Morphology Comment ESR Sodium Potassium Chloride Carbon Dioxide Anion Gap BUN Creatinine Estim Creat Clear Calc Est GFR (MDRD) Af Amer Est GFR (MDRD) Non-Af BUN/Creatinine Ratio Glucose Hemoglobin A1c 10.5 H Lactic Acid Calcium Phosphorus 2.5 Magnesium Total Bilirubin 0.60 Direct Bilirubin 0.13 AST 9 L ALT 15 Alkaline Phosphatase 114 C-React Prot Ext Range Total Protein 6.7 Albumin 2.9 L Globulin 3.8 S.aureus Protein A PCR MRSA (PCR) Assessment/Plan All Active Problems Infection of toe (Acute) Cellulitis of foot, right (Acute) 1. Acute sepsis secondary to right second toe ulcer with cellulitis- Wound cultures from 05/21/19 showed morganella morganii, staph epi and prevotella. IV vancomycin and IV levaquin. Podiatry, Dr. Martin on consult. Follows with Dr. Acuña as outpatient. Wound culture obtained. Dressing change daily with Aquacel Ag. Offloading right foot. Noninvasive vascular studies ordered. MRSA PCR pending. PRN pain regimen. 2. Type 2 diabetes mellitus with diabetic polyneuropathy-hemoglobin A1c 10.5%. Accu-Cheks ACHS with SSI. Continue home scheduled NovoLog and long-acting Levemir regimen. Follow blood glucose, adjust insulin as necessary. Patient may benefit from twice daily Levemir. 3. Tobacco dependence- encourage cessation. 4. Hypertension-stable, continue home hydrochlorothiazide, lisinopril. 5. Hyperlipidemia-not on regimen. 6. Hypothyroidism-continue home Synthroid regimen. 7. Morbid obesity- encouraged diet and lifestyle modifications. Nutrition consult. 8. Fibromyalgia- on lyrica. 9. Anxiety/depression-continue duloxetine, trazodone. DVT prophylaxis-Lovenox subcu This patient was seen by ANGELES Ram under the supervision of Dr. Melendez.
[2019-06-12] MEDS: levoFLOXacin IV 500 MG/100 ML BAG 100 MG IV (15:11)
[2019-06-12] MEDS: 0.9% Normal Saline 1,000 ML 100 ML IV (15:12)
[2019-06-12 16:13] LABS: M R Staph aureus DNA By PCR Negative (Negative); Probe Check PASS; Specimen Processing Control PASS; Staph aureus DNA By PCR NEGATIVE (Negative)
[2019-06-12 16:40] LABS: M R Staph aureus DNA By PCR Negative (Negative); Probe Check PASS; Specimen Processing Control PASS; Staph aureus DNA By PCR NEGATIVE (Negative)
[2019-06-12 17:30] LABS: Bedside Glucose 321 mg/dL (70-110)
[2019-06-12] MEDS: oxyCODONE 5 MG Tablet PO (17:37)
[2019-06-12] MEDS: Insulin Lispro 100 UNIT/ML INSULN.PEN 20 UNIT SC (17:38)
[2019-06-12] MEDS: traZODone 50 MG Tablet PO (21:52)
[2019-06-12] MEDS: Insulin Lispro 100 UNIT/ML INSULN.PEN SC (21:52)
[2019-06-12] MEDS: Pregabalin 50 MG Capsule 100 MG PO (21:52)
[2019-06-12 22:10] LABS: Bedside Glucose 169 mg/dL (70-110)
[2019-06-12] MEDS: 0.9% NaCl IVPB Med Flush (250 mL) 15 ML IV (23:36)
[2019-06-12] MEDS: 0.9% NaCl Peripheral Flush Adult/Peds IV (23:36)
[2019-06-13 01:54] VITALS: BP 127/58; PULSE 99; RESP 16; TEMP 39.2; O2SAT 94
[2019-06-13] MEDS: Acetaminophen 325 MG Tablet 650 MG PO ×3 (01:56→16:11)
[2019-06-13] MEDS: 0.9% Normal Saline 1,000 ML 100 ML IV ×2 (03:55→15:10)
[2019-06-13 03:56] VITALS: TEMP 37.3
[2019-06-13] MEDS: Levothyroxine 112 MCG Tablet PO (06:28)
[2019-06-13 07:54] VITALS: BP 109/64; PULSE 79; RESP 18; TEMP 36.6; O2SAT 97
[2019-06-13] MEDS: Enoxaparin 40 MG/0.4 ML Syringe SC (08:13)
[2019-06-13] MEDS: Lisinopril 20 MG Tablet PO (08:14)
[2019-06-13] MEDS: Famotidine 20 MG Tablet PO (08:14)
[2019-06-13] MEDS: Multivitamins,Therapeutic Tablet 1 TABLET PO (08:14)
[2019-06-13] MEDS: Pregabalin 50 MG Capsule 100 MG PO ×2 (08:14→19:44)
[2019-06-13] MEDS: Insulin Lispro 100 UNIT/ML INSULN.PEN SC ×3 (08:20→16:15)
[2019-06-13 08:31] LABS: Bedside Glucose 165 mg/dL (70-110)
[2019-06-13] MEDS: levoFLOXacin IV 500 MG/100 ML BAG 100 MG IV (09:33)
--- NOTE | 2019-06-13 10:20 | PCM.PROGNOTE ---
Patient Problems: Active and Suspected Problems Infection of toe (Acute) Cellulitis of foot, right (Acute) Subjective: This 48-year-old female significant past medical history of diabetes with neuropathy was seen bedside for right second toe infection. She denies subjective fever, chill, nausea that she had upon time of admission. It is noted she did have a fever overnight. She denies foot pain. She is kept her dressing intact. She is resting. She did obtain a surgical shoe since it has been ordered yesterday. She denies chest pain, shortness of breath, urinary difficulty, cough, or other illness. - Physical Exam General: Alert, Oriented x3, Cooperative Extremities: No cyanosis, Capillary Refill Less than 3 Seconds - All digits right foot, No Calf Tenderness - Negative Dominic and Sosa sign right lower extremity, Peripheral Pulses Normal - DP pulse right 2 out of 4, - - Active range of motion digits 2, 3, 4, 5 right foot with dorsal contraction of lesser digits noted. Prior hallux amputation is noted and stable Skin: Ulcer/ Wound - Erythema to right second toe persists with no proximal advancement. There is no purulence on expression to the ulcer site the ulcer bed is granular and fibrous with Aquacel Ag in place. There is no deep probing. There is no adjacent bogginess or fluctuance on palpation. There is no necrosis or maceration. Musculoskeletal: No Tenderness to Palpation of Joints or Extremities, Muscle Wasting, - - Compartment soft to palpate right lower extremity Neurological: - - Lack of normal epicritic sensation to light touch is consistent with her neuropathy status the right foot Psych/Mental Status: Normal Affect, Appropriate Vital Signs Temp Pulse Resp BP Pulse Ox 97.9 F 79 18 109/64 97 06/13/19 07:54 06/13/19 07:54 06/13/19 07:54 06/13/19 07:54 06/13/19 07:54 Oxygen Delivery Method Room Air Weight: 100.289 kg Body Mass Index (BMI) 36.8 Finger Stick Blood Glucose 496 Intake and Output for Last 24 Hours 06/11/19 06/12/19 06/13/19 23:59 23:59 23:59 Intake Total 1660.25 / 2297.25 2313.08 / 2313.08 Balance 1660.25 / 2297.25 2313.08 / 2313.08 Laboratory Tests Past 24 Hrs 06/12/19 06/12/19 06/12/19 09:47 09:47 09:47 WBC 8.4 RBC 4.28 Hgb 12.0 Hct 36.8 L MCV 86.0 MCH 28.0 MCHC 32.6 RDW Std Deviation 42.3 RDW Coeff of Brea 13.4 Plt Count TNP MPV 10.0 Immature Gran % (Auto) 0.700 Neut % (Auto) 84.6 H Lymph % (Auto) 10.3 L [place] % (Auto) 3.9 Eos % (Auto) 0.1 Baso % (Auto) 0.4 Absolute Neuts (auto) 7.1 Absolute Lymphs (auto) 0.87 Nucleated RBC % 0 Platelet Estimate SLT DEC Plt Morphology Comment CLUMPED ESR Sodium 136 Potassium 3.6 Chloride 106 Carbon Dioxide 22.0 Anion Gap 8 BUN 18 Creatinine 0.94 Estim Creat Clear Calc 66.58 Est GFR (MDRD) Af Amer 82 Est GFR (MDRD) Non-Af 68 BUN/Creatinine Ratio 19.1 Glucose 327 H Hemoglobin A1c Lactic Acid 1.4 Calcium 8.2 L Phosphorus Magnesium Total Bilirubin Direct Bilirubin AST ALT Alkaline Phosphatase C-React Prot Ext Range Total Protein Albumin Globulin S.aureus Protein A PCR MRSA (PCR) 06/12/19 06/12/19 06/12/19 13:38 14:45 Unknown WBC RBC Hgb Hct MCV MCH MCHC RDW Std Deviation RDW Coeff of Brea Plt Count MPV Immature Gran % (Auto) Neut % (Auto) Lymph % (Auto) [place] % (Auto) Eos % (Auto) Baso % (Auto) Absolute Neuts (auto) Absolute Lymphs (auto) Nucleated RBC % Platelet Estimate Plt Morphology Comment ESR 26 H Sodium Potassium Chloride Carbon Dioxide Anion Gap BUN Creatinine Estim Creat Clear Calc Est GFR (MDRD) Af Amer Est GFR (MDRD) Non-Af BUN/Creatinine Ratio Glucose Hemoglobin A1c Lactic Acid Calcium Phosphorus Magnesium Total Bilirubin Direct Bilirubin AST ALT Alkaline Phosphatase C-React Prot Ext Range Total Protein Albumin Globulin S.aureus Protein A PCR NEGATIVE NEGATIVE MRSA (PCR) Negative Negative 06/12/19 06/12/19 06/12/19 Unknown Unknown Unknown WBC RBC Hgb Hct MCV MCH MCHC RDW Std Deviation RDW Coeff of Brea Plt Count MPV Immature Gran % (Auto) Neut % (Auto) Lymph % (Auto) [place] % (Auto) Eos % (Auto) Baso % (Auto) Absolute Neuts (auto) Absolute Lymphs (auto) Nucleated RBC % Platelet Estimate Plt Morphology Comment ESR Sodium Potassium Chloride Carbon Dioxide Anion Gap BUN Creatinine Estim Creat Clear Calc Est GFR (MDRD) Af Amer Est GFR (MDRD) Non-Af BUN/Creatinine Ratio Glucose Hemoglobin A1c 10.5 H Lactic Acid Calcium Phosphorus 2.5 Magnesium 1.6 Total Bilirubin 0.60 Direct Bilirubin 0.13 AST 9 L ALT 15 Alkaline Phosphatase 114 C-React Prot Ext Range 68.60 H Total Protein 6.7 Albumin 2.9 L Globulin 3.8 S.aureus Protein A PCR MRSA (PCR) POC Glucose 06/13/19 06/12/19 06/12/19 08:19 21:47 17:24 POC Glucose 165 H 169 H 321 H Medical Necessity - Tobacco Use Smoking Status: Current every day smoker Tobacco Use: Cigarettes - 1/2 PPD. Assessment/Plan All Active Problems Infection of toe (Acute) Cellulitis of foot, right (Acute) Right second toe cellulitis Right distal second toe ulcer with fat layer exposed; torres grade 1 Hammertoe deformity right Diabetes with neuropathy surgical shoe; this will be ordered Claudication Other comorbidities I reviewed and discussed her case. She did have a fever of over 102 last night and is now afebrile this morning. She does not have leukocytosis, ESR was 26, and CRP was 68. Her elevated hemoglobin A1C of 10.5 is also noted. Her infection site was evaluated this morning with continued erythema. There is no purulence or odor. The Aquacel ag dressing was reapplied. I recommend the continuation of broad spectrum IV antibiotics including vancomycin, zosyn, and levofloxacin. Her wound and blood culture results are pending. Her wound culture is MRSA negative. These will be monitored. I recommend she offloads the ulcer site by right heel weightbearing in a surgical shoe. Due to her claudication symptoms I do also recommend noninvasive vascular studies. Medical management and DVT prophylaxis per primary team is appreciated. The podiatry team will continue to follow her closely one house. Please do not hesitate to call if you have any questions. Marge Martin DPM, [facility] [phone]
--- NOTE | 2019-06-13 13:02 | PCM.PROGNOTE ---
Patient Problems: Active and Suspected Problems Infection of toe (Acute) Cellulitis of foot, right (Acute) Subjective: Patient seen and examined. Reports fever, chills improved. Denies pain. Denies current complaints. - Physical Exam General: Alert, Oriented x3, Cooperative HEENT: Atraumatic, PERRLA, EOMI, Normocephalic Neck: Supple, No JVD, Negative Carotid Bruits Lungs: Clear to auscultation, Diminished Cardiovascular: Regular rate, Regular Rhythm, Normal S1, Normal S2, No murmurs Abdomen: Bowel Sounds Present, Soft, Non Tender, Non-Distended Extremities: No clubbing, No cyanosis, No edema, Capillary Refill Less than 3 Seconds Skin: - - Right second toe ulceration with surrounding erythema, dressing clean dry and intact. No drainage evident. Musculoskeletal: No Tenderness to Palpation of Joints or Extremities Neurological: Cranial nerves II-XII grossly intact, Neuro grossly intact Psych/Mental Status: Flat Affect Vital Signs Temp Pulse Resp BP Pulse Ox 97.9 F 79 18 109/64 97 06/13/19 07:54 06/13/19 07:54 06/13/19 07:54 06/13/19 07:54 06/13/19 07:54 Oxygen Delivery Method Room Air Weight: 221 lb 1.978 oz Body Mass Index (BMI) 36.8 Finger Stick Blood Glucose 496 Intake and Output for Last 24 Hours 06/11/19 06/12/19 06/13/19 23:59 23:59 23:59 Intake Total 1660.25 / 2297.25 2801.83 / 2801.83 Balance 1660.25 / 2297.25 2801.83 / 2801.83 Microbiology Past 72 Hours 06/13/19 02:00 Gram Stain - Final Wound - Aerobic & Anaerobic Swabs Laboratory Tests Past 24 Hrs 06/12/19 06/12/19 06/12/19 09:47 13:38 14:45 ESR Hemoglobin A1c Lactic Acid 1.4 Phosphorus Magnesium Total Bilirubin Direct Bilirubin AST ALT Alkaline Phosphatase C-React Prot Ext Range Total Protein Albumin Globulin S.aureus Protein A PCR NEGATIVE NEGATIVE MRSA (PCR) Negative Negative 06/12/19 06/12/19 06/12/19 Unknown Unknown Unknown ESR 26 H Hemoglobin A1c 10.5 H Lactic Acid Phosphorus Magnesium 1.6 Total Bilirubin Direct Bilirubin AST ALT Alkaline Phosphatase C-React Prot Ext Range 68.60 H Total Protein Albumin Globulin S.aureus Protein A PCR MRSA (PCR) 06/12/19 Unknown ESR Hemoglobin A1c Lactic Acid Phosphorus 2.5 Magnesium Total Bilirubin 0.60 Direct Bilirubin 0.13 AST 9 L ALT 15 Alkaline Phosphatase 114 C-React Prot Ext Range Total Protein 6.7 Albumin 2.9 L Globulin 3.8 S.aureus Protein A PCR MRSA (PCR) POC Glucose 06/13/19 06/12/19 06/12/19 08:19 21:47 17:24 POC Glucose 165 H 169 H 321 H Medical Necessity - Tobacco Use Smoking Status: Current every day smoker Tobacco Use: Cigarettes - 1/2 PPD. Assessment/Plan All Active Problems Infection of toe (Acute) Cellulitis of foot, right (Acute) 1. Acute sepsis secondary to right second toe ulcer with cellulitis- Wound cultures 05/21/19 from right great toe amputation site grew morganella morganii, staph epi and prevotella. IV vancomycin and IV levaquin. Podiatry, Dr. Martin on consult. Follows with Dr. Acuña as outpatient. Wound culture pending. Dressing change daily with Aquacel Ag. Offloading right foot. Noninvasive vascular studies ordered. MRSA PCR negative. PRN pain regimen. 2. Type 2 diabetes mellitus with diabetic polyneuropathy-hemoglobin A1c 10.5%. Accu-Cheks ACHS with SSI. Continue home scheduled NovoLog and long-acting Levemir regimen. 3. Tobacco dependence- encourage cessation. 4. Hypertension-stable, continue home hydrochlorothiazide, lisinopril. 5. Hyperlipidemia-not on regimen. 6. Hypothyroidism-continue home Synthroid regimen. 7. Morbid obesity- encouraged diet and lifestyle modifications. Nutrition consult. 8. Fibromyalgia- on lyrica. 9. Anxiety/depression-continue duloxetine, trazodone. DVT prophylaxis-Lovenox subcu This patient was seen by ANGELES Ram under the supervision of Dr. Melendez.
[2019-06-13 14:00] VITALS: BP 91/67; PULSE 71; RESP 18; TEMP 36.7; O2SAT 98
[2019-06-13 14:11] LABS: Bedside Glucose 275 mg/dL (70-110)
[2019-06-13 16:21] LABS: Bedside Glucose 219 mg/dL (70-110)
[2019-06-13] MEDS: DULoxetine Hcl 60 MG Capsule PO (19:45)
[2019-06-13] MEDS: traZODone 50 MG Tablet PO (19:45)
[2019-06-13 19:54] VITALS: BP 131/82; PULSE 67; RESP 18; TEMP 37.1; O2SAT 100
[2019-06-13] MEDS: hydrOXYzine PAM 25 MG Capsule 50 MG PO (21:44)
[2019-06-13] MEDS: oxyCODONE 5 MG Tablet PO (21:44)
[2019-06-13 22:05] LABS: Bedside Glucose 232 mg/dL (70-110)
[2019-06-13 22:15] LABS: Vancomycin, Trough Level 13.2 ug/mL (5.0-15.0)
--- NOTE | 2019-06-13 23:08 | PCM.RX.CS ---
Consult Pharmacy has been consulted to manage selected antiobiotic: Vancomycin Type of Consult: Follow-up Suspected Infection: Skin/Soft tissue Labs: Sodium 136 mmol/L (136-145) 06/12/19 09:47 Potassium 3.6 mmol/L (3.5-5.1) 06/12/19 09:47 Chloride 106 mmol/L (98-107) 06/12/19 09:47 Carbon Dioxide 22.0 mmol/L (21.0-32.0) 06/12/19 09:47 Anion Gap 8 (5-15) 06/12/19 09:47 BUN 18 mg/dL (7-18) 06/12/19 09:47 Creatinine 0.94 mg/dL (0.55-1.02) 06/12/19 09:47 Est GFR (MDRD) Af Amer 82 mL/min (>60) 06/12/19 09:47 Est GFR (MDRD) Non-Af 68 mL/min (>60) 06/12/19 09:47 BUN/Creatinine Ratio 19.1 RATIO (10-20) 06/12/19 09:47 Glucose 327 mg/dL (74-106) H 06/12/19 09:47 Vancomycin Trough 13.2 ug/mL (5.0-15.0) 06/13/19 21:25 Microbiology: Microbiology 06/13/19 02:00 Wound - Aerobic & Anaerobic Swabs Gram Stain - Final Weight used for dosin kg Estimated Creatinine Clearance: 86.7 Goal Trough: 15-20 mcg/mL Pharmacy Plan for Drug Dosing: Pharmacy Service will continue to monitor and adjust dosing as required. Medications Vancomycin HCl 1,750 mg/ (Sodium Chloride) 535 mls @ 250 mls/hr IV Q12H ASHLEY Last Admin: 06/13/19 21:48 Dose: 250 mls/hr Documented by: TROUGH 13.2 INCREASE TO 2000MG Q12H AND REDRAW TROUGH 06/15 @ 2129 Follow-Up Labs: Trough Vancomycin Labs to be done on [date and time ordered]: 06/15
[2019-06-14 02:07] VITALS: BP 109/68; PULSE 69; RESP 16; TEMP 36.6; O2SAT 95
[2019-06-14] MEDS: 0.9% Normal Saline 1,000 ML 100 ML IV ×2 (03:56→16:05)
[2019-06-14] MEDS: Levothyroxine 112 MCG Tablet PO (06:55)
[2019-06-14] MEDS: Insulin Lispro 100 UNIT/ML INSULN.PEN SC ×2 (06:58→22:32)
[2019-06-14] MEDS: Acetaminophen 325 MG Tablet 650 MG PO (07:03)
[2019-06-14 07:11] LABS: Bedside Glucose 206 mg/dL (70-110)
[2019-06-14 07:55] VITALS: BP 111/66; PULSE 64; RESP 16; TEMP 36.8; O2SAT 97
[2019-06-14] MEDS: Multivitamins,Therapeutic Tablet 1 TABLET PO (07:55)
[2019-06-14] MEDS: Pregabalin 50 MG Capsule 100 MG PO ×2 (08:17→20:10)
[2019-06-14] MEDS: Enoxaparin 40 MG/0.4 ML Syringe SC (08:18)
[2019-06-14] MEDS: DULoxetine Hcl 30 MG Capsule PO (08:18)
[2019-06-14] MEDS: Famotidine 20 MG Tablet PO (08:19)
[2019-06-14] MEDS: Lisinopril 20 MG Tablet PO (08:20)
[2019-06-14 08:44] LABS: Anion Gap 5 (5-15); BUN 11 mg/dL (7-18); BUN/Creat Ratio 19.8 RATIO (10-20); Calcium,Total 7.7 mg/dL (8.5-10.1); Chloride 112 mmol/L (98-107); Creatinine, Serum 0.56 mg/dL (0.55-1.02); EST Glomerular Filtration Rate 124 mL/min (>60); Est Glom Filt Rate - Afr Amer 150 mL/min (>60); Estimated Creatinine Clearance 111.75 ml/min; Glucose 192 mg/dL (74-106); Magnesium 1.7 mg/dL (1.6-2.6); Potassium 3.4 mmol/L (3.5-5.1); Sodium Level 141 mmol/L (136-145)
[2019-06-14] MEDS: levoFLOXacin IV 500 MG/100 ML BAG 100 MG IV (11:19)
[2019-06-14 12:10] LABS: Bedside Glucose 273 mg/dL (70-110)
--- NOTE | 2019-06-14 12:20 | MRI_ITS ---
STUDY: MRI RIGHT FOREFOOT WITHOUT CONTRAST REASON FOR EXAM: Female, 48 years old. Right toe open wound x2 days. Cellulitis. Recent right great toe amputation. TECHNIQUE: Standardized fat and water weighted pulse sequences were obtained in all 3 orthogonal planes. COMPARISON: X-ray June 12, 2019 FINDINGS: There is amputation of the phalanges of the great toe. There is soft tissue swelling with focal tract consistent with wound. There is marrow edema of the first metatarsal head and distal shaft, series 8 image 8/. There is marrow edema of the proximal shaft of the second and the base of the third metatarsals and the distal second metatarsal, series 8 images 14/ through . There is marrow edema of the medial and intermediate cuneiform, series 8 image 10 and / . Normal flexor and extensor hallucis longus tendons. Normal second through fifth metatarsophalangeal (MTP) joints. Normal interphalangeal joints of the second through fifth toes. Normal proximal, middle and distal phalanges of the second through fifth toes. Normal flexor and extensor tendons of the second through fifth toes. Normal intrinsic muscles of the forefoot. There is diminished T1 signal at the second interspace and plantar region with possible neuroma, series 4 image 24/36. MRI/Lower Ext/No Jt/w/o IMPRESSION: Amputation of the phalanges of the first toe. Marrow edema of the first metatarsal and second metatarsal head with osteomyelitis. Marrow edema of the proximal second and third metatarsals and cuneiform bones with contiguous spread osteomyelitis versus Charcot arthropathy. Electronically Signed: Irineo Tinajero MD at 16:51 EDT , Service support ,
--- NOTE | 2019-06-14 12:24 | PN_ITS ---
Patient Problems: Active and Suspected Problems Infection of toe (Acute) Cellulitis of foot, right (Acute) Subjective: This 48-year-old female significant past medical history of diabetes with neuropathy was seen bedside for right second toe infection again today. Patient had no acute events overnight. She denies foot pain. Patient states she feels much better today overall. No strikethrough to outer dressing. She is resting comfortably in chair beside her bed. Patient currently denies any feelings of nausea, vomiting, fever, chills. - Physical Exam General: Alert, Oriented x3, Cooperative, No apparent distress Extremities: No cyanosis, Capillary Refill Less than 3 Seconds - All remaining digits of right foot, No Calf Tenderness - Negative Dominic and Sosa sign to right lower extremity, Peripheral Pulses Normal - DP and PT pulses palpable bilateral Skin: Ulcer/ Wound - Erythema to right second toe persists with no proximal advancement. Patient feels this area looks slightly improved since yesterday. There is no purulence on expression to the ulcer site the ulcer bed is granular and fibrous with small amount of slough. There is no deep probing to bone noted. There is no adjacent bogginess or fluctuance on palpation. There is no necrosis or maceration. Small ulcer appreciated to distal medial aspect of right second toe. Ulcer site measured approximately 0.6 cm x 0.6 cm x 0.1 cm pre-debridement and measured approximately 1.1 cm x 0.9 cm x 0.1 cm post debridement. Musculoskeletal: No Tenderness to Palpation of Joints or Extremities, - - Active range of motion digits 2, 3, 4, 5 right foot with dorsal contraction of lesser digits noted. Prior hallux amputation is noted and stable Neurological: - - Lack of normal epicritic sensation consistent with patient's diabetic neuropathy status. Psych/Mental Status: Normal Affect, Appropriate Vital Signs Temp Pulse Resp BP Pulse Ox 98.3 F 64 16 111/66 97 06/14/19 07:55 06/14/19 07:55 06/14/19 07:55 06/14/19 07:55 06/14/19 07:55 Oxygen Delivery Method Room Air Weight: 100.3 kg Body Mass Index (BMI) 36.8 Finger Stick Blood Glucose 496 Intake and Output for Last 24 Hours 06/12/19 06/13/19 06/14/19 23:59 23:59 23:59 Intake Total 1660.25 / 2297.25 5544.16 / 5544.16 1114.92 / 1114.92 Output Total 650 / 650 Balance 1660.25 / 2297.25 5544.16 / 5544.16 464.92 / 464.92 Microbiology Past 72 Hours 06/13/19 02:00 Gram Stain - Final Wound - Aerobic & Anaerobic Swabs Wound Culture - Preliminary Streptococcus agalactiae (B) Coag Negative Staph Laboratory Tests Past 24 Hrs 06/13/19 06/14/19 21:25 08:06 Sodium 141 Potassium 3.4 L Chloride 112 H Carbon Dioxide 24.0 Anion Gap 5 BUN 11 Creatinine 0.56 Estim Creat Clear Calc 111.75 Est GFR (MDRD) Af Amer 150 Est GFR (MDRD) Non-Af 124 BUN/Creatinine Ratio 19.8 Glucose 192 H Calcium 7.7 L Magnesium 1.7 Vancomycin Trough 13.2 POC Glucose 06/14/19 06/14/19 06/13/19 11:25 06:58 21:40 POC Glucose 273 H 206 H 232 H 06/13/19 06/13/19 16:13 11:25 POC Glucose 219 H 275 H Medical Necessity - Tobacco Use Smoking Status: Current every day smoker Tobacco Use: Cigarettes - 1/2 PPD. Assessment/Plan All Active Problems Infection of toe (Acute) Cellulitis of foot, right (Acute) Right second toe cellulitis Right distal second toe ulcer with fat layer exposed Hammertoe deformity right Diabetes with neuropathy Other comorbidities This patient was carefully examined and evaluated earlier this afternoon while resting in a chair beside her bed. Patient's vital signs are all currently stable and she has had no acute events overnight. Patient says she is feeling much better today than she did on admission. Her hemoglobin A1C was 10.5. Her infection site was evaluated today with continued erythema. There is no purulence or odor. A slight selective debridement was then performed using a #15 blade to remove any adherent slough and fibrous tissue as well as some slight surrounding hyperkeratotic tissue from the ulcer site to the right second toe. Patient feels her toe has shown improvement over the last day in appearance. The Aquacel ag dressing was reapplied. I recommend the continuation of broad spectrum IV antibiotics including vancomycin, zosyn, and levofloxacin. Her wound culture is showing preliminary results of strep agalactiae and coag negative staph. Her wound culture is MRSA negative. Blood culture results st ill pending. These will continue to be monitored. I recommend she offloads the ulcer site by right heel weightbearing in a surgical shoe. Noninvasive vascular studies are ordered and will continue to monitor for results from this. I also discussed this case with hospitalist and we will move forward with obtaining an MRI to rule out osteomyelitis of the right second toe since she already has a p revious amputation of the right hallux. Medical management and DVT prophylaxis per primary team is appreciated. The podiatry team will continue to follow closely while in house.
[2019-06-14] MEDS: Insulin Lispro 100 UNIT/ML INSULN.PEN 15 UNIT SC (12:30)
--- NOTE | 2019-06-14 13:30 | CASEMGMT ---
RN GUERO Face to Face with patient for initial transition planning/care coordination assessment. RN GUERO introduced self and role at [facility]. Patient lying in bed, alert and oriented. Patient willing to participate in assessment and is able to answer all questions appropriately. Care providers, pharmacy, and demographics verified. Patient wishes to discharge home, denies need for home health at this time. Patient states she has no further needs or concerns at this time. CM to follow for discharge planning needs that may arise. PCP: Radha Specialists: Domenico podiatramarilis Preferred Pharmacy: [facility] Insurance: [employer] Prescription Benefit: yes Living Will/HPOA: none LNOK: Mother Living Arrangements: Patient is currently [facility]: Patient denies DME. Patient states she has previously been to [facility]. Disposition Plan: Patient to discharge back to [facility] with follow-up plans in place. Will continue to monitor for need for IV ATBs and alternative discharge plans. Chica ARRYOO, RN, CM
--- NOTE | 2019-06-14 14:07 | PCM.PROGNOTE ---
<Marcelle Lopez - Last Filed: 06/14/19 14:14> Patient Problems: Active and Suspected Problems Infection of toe (Acute) Cellulitis of foot, right (Acute) Subjective: Patient seen and examined. Very flat affect. Denies fever, chills. Denies pain. No complaints. - Physical Exam General: Alert, Oriented x3, Cooperative HEENT: Atraumatic, PERRLA, EOMI, Normocephalic Neck: Supple, No JVD, Negative Carotid Bruits Lungs: Clear to auscultation, Normal air movement Cardiovascular: Regular rate, Regular Rhythm, Normal S1, Normal S2, No murmurs Abdomen: Bowel Sounds Present, Soft, Non Tender, Non-Distended Extremities: No clubbing, No cyanosis, No edema Skin: - - Right second toe ulceration with surrounding erythema, no drainage. Musculoskeletal: No Tenderness to Palpation of Joints or Extremities Neurological: Cranial nerves II-XII grossly intact, Neuro grossly intact Psych/Mental Status: Flat Affect Vital Signs Temp Pulse Resp BP Pulse Ox 98.3 F 64 16 111/66 97 06/14/19 07:55 06/14/19 07:55 06/14/19 07:55 06/14/19 07:55 06/14/19 07:55 Oxygen Delivery Method Room Air Weight: 221 lb 1.978 oz Body Mass Index (BMI) 36.8 Finger Stick Blood Glucose 496 Intake and Output for Last 24 Hours 06/12/19 06/13/19 06/14/19 23:59 23:59 23:59 Intake Total 1660.25 / 2297.25 5544.16 / 5544.16 2354.92 / 2354.92 Output Total 950 / 950 Balance 1660.25 / 2297.25 5544.16 / 5544.16 1404.92 / 1404.92 Microbiology Past 72 Hours 06/13/19 02:00 Gram Stain - Final Wound - Aerobic & Anaerobic Swabs Wound Culture - Preliminary Streptococcus agalactiae (B) Coag Negative Staph Laboratory Tests Past 24 Hrs 06/13/19 06/14/19 21:25 08:06 Sodium 141 Potassium 3.4 L Chloride 112 H Carbon Dioxide 24.0 Anion Gap 5 BUN 11 Creatinine 0.56 Estim Creat Clear Calc 111.75 Est GFR (MDRD) Af Amer 150 Est GFR (MDRD) Non-Af 124 BUN/Creatinine Ratio 19.8 Glucose 192 H Calcium 7.7 L Magnesium 1.7 Vancomycin Trough 13.2 POC Glucose 06/14/19 06/14/19 06/13/19 11:25 06:58 21:40 POC Glucose 273 H 206 H 232 H 06/13/19 06/13/19 16:13 11:25 POC Glucose 219 H 275 H Medical Necessity - Tobacco Use Smoking Status: Current every day smoker Tobacco Use: Cigarettes - 1/2 PPD. Assessment/Plan All Active Problems Infection of toe (Acute) Cellulitis of foot, right (Acute) 1. Acute sepsis secondary to right second toe ulcer with cellulitis- Wound cultures 05/21/19 from right great toe amputation site grew morganella morganii, staph epi and prevotella. IV vancomycin and IV Zosyn. Podiatry on consult. Follows with Dr. Acuña as outpatient. Bedside debridement performed 06/14/2018. Wound culture shows strep agalactiae and coag negative staph preliminary. Dressing change daily with Aquacel Ag. Offloading right foot. Noninvasive vascular studies ordered. MRSA PCR negative. PRN pain regimen. MRI of right lower extremity pending. 2. Type 2 diabetes mellitus with diabetic polyneuropathy-hemoglobin A1c 10.5%. Accu-Cheks ACHS with SSI. Continue home scheduled NovoLog and long-acting Levemir regimen. Patient noncompliant with insulin regimen and refused insulin last night. 3. Tobacco dependence- encourage cessation. 4. Hypertension-stable, continue home hydrochlorothiazide, lisinopril. 5. Hyperlipidemia-not on regimen. 6. Hypothyroidism-continue home Synthroid regimen. 7. Morbid obesity- encouraged diet and lifestyle modifications. Nutrition consult. 8. Fibromyalgia- on lyrica. 9. Anxiety/depression-continue duloxetine, trazodone. DVT prophylaxis-Lovenox subcu This patient was seen by ANGELES Ram under the supervision of Dr. Pineda. <Gail Pineda - Last Filed: 06/14/19 14:20> - Physical Exam Vital Signs Temp Pulse Resp BP Pulse Ox 98.3 F 64 16 111/66 97 06/14/19 07:55 06/14/19 07:55 06/14/19 07:55 06/14/19 07:55 06/14/19 07:55 Oxygen Delivery Method Room Air Weight: 100.3 kg Body Mass Index (BMI) 36.8 Finger Stick Blood Glucose 496 Intake and Output for Last 24 Hours 06/12/19 06/13/19 06/14/19 23:59 23:59 23:59 Intake Total 1660.25 / 2297.25 5544.16 / 5544.16 2354.92 / 2354.92 Output Total 950 / 950 Balance 1660.25 / 2297.25 5544.16 / 5544.16 1404.92 / 1404.92 Microbiology Past 72 Hours 06/12/19 09:47 Blood Culture - Preliminary Blood Culture (Wb) - Anticubital Left No growth in 48 hours. 06/13/19 02:00 Gram Stain - Final Wound - Aerobic & Anaerobic Swabs Wound Culture - Preliminary Streptococcus agalactiae (B) Coag Negative Staph Laboratory Tests Past 24 Hrs 06/13/19 06/14/19 21:25 08:06 Sodium 141 Potassium 3.4 L Chloride 112 H Carbon Dioxide 24.0 Anion Gap 5 BUN 11 Creatinine 0.56 Estim Creat Clear Calc 111.75 Est GFR (MDRD) Af Amer 150 Est GFR (MDRD) Non-Af 124 BUN/Creatinine Ratio 19.8 Glucose 192 H Calcium 7.7 L Magnesium 1.7 Vancomycin Trough 13.2 POC Glucose 06/14/19 06/14/19 06/13/19 11:25 06:58 21:40 POC Glucose 273 H 206 H 232 H 06/13/19 16:13 POC Glucose 219 H Assessment/Plan This patient was seen in conjunction with Marcelle Lopez NP. I have independently interviewed and examined the patient and reviewed pertinent historical, laboratory, and other data. Please refer to her note for patient's presentation, findings, and recommendations. Patient was seen and examined. Denies any pain to the right foot. Denies any fever or chills or dizziness or shortness of breath. No acute events overnight. Vitals were reviewed -stable; last fever recorded was 06/13/19 at 1 AM Physical Exam: Gen: Obese, appears comfortable, not pale, not jaundiced, alert oriented x3 CVS:HS I +II, regular, no murmurs RESP: Clinically clear to auscultation GI: BS present and normal, nontender, no palpable organs EXT: Right lower extremity second to dressed up in bandages, no edema or erythema to the foot Labs reviewed?cultures growing Streptococcus agalactiae, coag negative staph Potassium is 3.4, magnesium 1.7 ASSESSMENT: 1. Sepsis secondary to second toe ulcer with cellulitis, possible osteomyelitis 2. Hypokalemia 3. Hypomagnesemia 4. Type II DM with diabetic polyneuropathy 5. Nicotine dependence 6. Hypertension 7. Hypothyroidism 8. Morbid obesity 9. Anxiety/depression/fibromyalgia Meds reviewed Plan: Discussed with Dr. Acuña, patient will be getting MRI of the foot to rule out osteomyelitis Continue on IV Zosyn, vancomycin, Levaquin for now; need to narrow down tomorrow depending on sensitivities Replace potassium, magnesium, recheck in a.m. Continue rest of home medications Code Visit Inpatient E&M: 73568 Subs Hosp L2
[2019-06-14 16:00] VITALS: BP 123/73; PULSE 66; RESP 18; TEMP 36.7; O2SAT 99
--- NOTE | 2019-06-14 16:37 | CASEMGMT ---
Social Work Met with patient for possible need for resources as pt lives at [facility]. Spoke to patient about needs. Pt states she has already applied for [facility] - is on waitlist. Pt has no family or friends. Used bus to get around town and typically spends the day at the library. Offered medical, food, counseling resources - pt declines. States shes is okay and utilizes all resources she can. Patient's mood appears stable. No issues noted. Marisel Cherry, END FINDER FORMING DEPARTMENT FEED CRUSHER
[2019-06-14 17:00] LABS: Bedside Glucose 148 mg/dL (70-110)
[2019-06-14 20:00] VITALS: BP 135/69; PULSE 71; RESP 18; TEMP 36.8; O2SAT 100
[2019-06-14] MEDS: hydrOXYzine PAM 25 MG Capsule 50 MG PO (20:09)
[2019-06-14] MEDS: DULoxetine Hcl 60 MG Capsule PO (20:09)
[2019-06-14] MEDS: traZODone 50 MG Tablet PO (20:09)
[2019-06-14 22:41] LABS: Bedside Glucose 268 mg/dL (70-110)
[2019-06-14] MEDS: oxyCODONE 5 MG Tablet PO (23:17)
[2019-06-15] VITALS (11 sets, daily range): BP systolic 85–141; BP diastolic 48–82; PULSE 65–80; RESP 16–18; TEMP 36.1–37; O2SAT 95–99; BMI 36.8
[2019-06-15] MEDS: 0.9% NaCl IVPB Med Flush (250 mL) 15 ML IV (05:20)
--- NOTE | 2019-06-15 05:55 | EKG12_ITS ---
Test Reason : AM EKG Blood Pressure : / mmHG Vent. Rate : 069 BPM Atrial Rate : 069 BPM P-R Int : 136 ms QRS Dur : 088 ms QT Int : 428 ms P-R-T Axes : 021 058 042 degrees QTc Int : 458 ms Normal sinus rhythm Normal ECG Confirmed by KITTY SEGOVIA, CHEYENNE ([id number]), editor news VINICIUS MULTANI ([id number]) on 06/16/2019 2:27:18 PM Referred By: Ayde Melendez Confirmed By:CHEYENNE TANG MD
[2019-06-15] MEDS: 0.9% NaCl Peripheral Flush Adult/Peds IV (06:18)
[2019-06-15] MEDS: 0.9% Normal Saline 1,000 ML 100 ML IV (06:18)
[2019-06-15 06:34] LABS: Absolute Lymphocyte Count 2.08 X10^3/uL (0.83-4.51); Absolute Neutrophil Count 5.4 X10^3/uL (2.0-7.7); Basophil# 0.04 X10^3/uL; Basophil% 0.5 % (0-1); Eosinophil# 0.21 X10^3/uL; Eosinophils% 2.5 % (0-5); Hematocrit 32.2 % (37-47); Hemoglobin 10.2 g/dL (12.0-15.0); Lymphocyte # 2.08 X10^3/ul (4.0); Lymphocyte % 24.8 % (19-41); Mean Corp Hgb Conc 31.7 g/dL (32-36); Mean Corpuscular Hgb 27.3 pg (27.0-32.0); Mean Corpuscular Volume 86.1 fL (81-99); Mean Platelet Vol. 9.6 fl (6.2-12.0); Monocyte# 0.68 X10^3/uL; Monocyte% 8.1 % (0-10); NRBC Flagged by Analyzer 0 % (0-5); Neutrophil # 5.35 X10^3/uL (2.7-7.7); Neutrophil % 63.6 % (47-70); Platelet Count 197 K/mm3 (150-450); RBC Distribution Width CV 13.6 % (11.6-14.6); RBC Distribution Width SD 42.7 fl (35.1-43.9); Red Blood Count 3.74 M/mm3 (4.2-5.4); White Blood Count 8.4 K/mm3 (4.4-11.0)
[2019-06-15] MEDS: Insulin Lispro 100 UNIT/ML INSULN.PEN SC ×3 (06:35→21:57)
--- NOTE | 2019-06-15 06:54 | NURSING ---
called report to CHUCK James in [place]
[2019-06-15 07:01] LABS: Anion Gap 7 (5-15); BUN 11 mg/dL (7-18); BUN/Creat Ratio 16.3 RATIO (10-20); Chloride 113 mmol/L (98-107); Creatinine, Serum 0.67 mg/dL (0.55-1.02); EST Glomerular Filtration Rate 99 mL/min (>60); Est Glom Filt Rate - Afr Amer 120 mL/min (>60); Glucose 223 mg/dL (74-106); Potassium 3.7 mmol/L (3.5-5.1); Sodium Level 141 mmol/L (136-145); Thyroid Stim Hormone (TSH) 2.91 uIU/mL (0.358-3.74)
[2019-06-15 07:05] LABS: Bedside Glucose 224 mg/dL (70-110)
[2019-06-15 07:17] LABS: Hemoglobin A1c 10.8 % (4.2-6.3)
--- NOTE | 2019-06-15 08:00 | BON_PTH ---
PATIENT: KATHRYN ESQUIVEL LOC: MS3 U#:[id number] AGE/SX: 48/F ROOM: [facility] [place] RE06/12/[address]: Dr. Gail Pineda MD : [id number] BED: 1 DIS: 06/18/2019 SPEC #: [id number] RECD: 06/15/19 11:53 STATUS: GALILEO REQ #: [id number] MARIE: 06/15/19 08:[address]: Mamadou Acuña DEPT: SURGICAL PATHOLOGY RECD BY: Alton Granados ENTERED: 06/15/19 13:18 SP TYPE: Bone OTHR DR: MD Dr. Shirley Golden MD Dr. Mary Catherine Sementi, DO Dr. Jeanna Fascione, FRANCISM Dr. Roger Lorenzo MD Tissues: A - Bone of foot, NOS B - Bone of foot, NOS Procedures: Decalcification bone/plaque Surgery Specimen Level IV HEADER OPERATION: Amputation second toe PRE-OP DIAGNOSIS: Right second toe cellulitis; right distal second toe ulcer fat layer exposed; hammertoe deformity right TISSUE SUBMITTED: A - Bone and soft tissue right second toe, B - Clearance fragment bone and soft tissue second toe MICROSCOPIC DIAGNOSIS A. Bone and soft tissue of right second toe, excision: Ulceration with associated acute and chronic inflammation and granulation. Underlying bone with focal reparative and reactive change. No evidence of acute osteomyelitis. B. Clearance fragment bone, second toe: Bone and soft tissue with no significant pathologic change. No evidence of osteomyelitis. AM:jt 06/18/19 MICROSCOPIC DESCRIPTION Slides are reviewed. GROSS DESCRIPTION A - Received in fixative is one container labeled with the patient's name and designated bone and soft tissue right second toe. The specimen consists of a piece of skin with underlying bone measuring 2 x 2 x 1 cm. The entire specimen is submitted in two cassettes as follows: 1 - skin with underlying tissue, 2??bone after decalcification. B - Received in fixative is one container labeled with the patient's name and designated clearance fragment bone and soft tissue right second toe. The specimen consists of a piece of bone measuring 1 x 0.5 x 0.4 cm. The entire specimen is submitted in one cassette after decalcification. / YVETTE:jt 06/15/19 TC:2 CPT: 30812 x2, 97240 x2
[2019-06-15] MEDS: Bupivacaine Mpf 0.5% 30 ML VIAL (08:10)
--- NOTE | 2019-06-15 08:58 | RAD_ITS ---
STUDY: X-RAY - RIGHT FOOT CLINICAL: Female, 48 years old. Postoperative amputation. TECHNIQUE: 3 view(s) of the foot. COMPARISON: Comparison is made with prior study dated June 12, 2019. FINDINGS: There is a plantar calcaneal spur. Normal visualized subtalar, talonavicular, calcaneocuboid, tarsal and tarsometatarsal articulations. Normal metatarsi. The patient is status post amputation of the great toe as well as the middle and distal phalanges of the second toe. Normal second through fifth metatarsophalangeal joints. Normal interphalangeal joints and phalanges of the lesser toes. Postoperative soft tissue swelling. RAD/Foot min 3 Views IMPRESSION: Status post amputation of the great toe as well as the middle and distal phalanges of the second toe. Postoperative soft tissue changes. Electronically Signed: Jaydon Villanueva, at 13:12 EDT , Service support ,
--- NOTE | 2019-06-15 09:23 | OP.PCM_ITS ---
Problem List (1) Osteomyelitis of toe of right foot Status: Acute (2) Chronic ulcer of right foot with fat layer exposed Status: Chronic (3) Infection of toe Status: Acute (4) Type 2 diabetes mellitus with diabetic polyneuropathy Status: Chronic (5) Hammer toe of right foot Status: Chronic (6) Cellulitis of foot, right Status: Acute Report of Operation Date of Procedure: 06/15/19 Pre-Operative Diagnosis: Ulcer to the distal right second toe with osteomyelitis and cellulitis Post-Operative Diagnosis: Same Surgery/Procedure Performed:: Debridement of necrotic, nonviable, infected soft tissue and bone of the right foot with partial second toe amputation Description of Surgical Findings:: Hemostasis: Well-padded ankle tourniquet Type of Anesthesia:: Local MAC - Preoperative block consisting of 13 mL of 0.5% Marcaine plain and a right ankle block fashion Specimen's removed: Necrotic, infected, nonviable soft tissue and bone of the right second toe that was sent to pathology microbiology for further evaluation. Clearance fragment from the proximal phalanx of the right second toe sent to pathology and microbiology for further evaluation. Description of Procedure: Indications: This 48-year-old uncontrolled diabetic female with neuropathy as well as other comorbidities has been seen by myself in clinic in the past. This patient has a long-standing history of noncompliance. She continues to walk extended amounts of time without checking her feet. She also wears shoes that are in appropriate. This patient most recently presented to the emergency department on June 12 complaining of redness, swelling, tenderness as well as some ulcer to the end of her right second toe. Due to patient's history of previous right hallux amputation, the patient was admitted for further observance. The patient was started on a course of broad-spectrum IV antibiotics on admission. Erythema to the distal half of the left second toe is noted and marked with a pen on admission. Over the next couple of days this area did not worsen, however it did not improve significantly either. The ulcer most recently to the distal aspect of the right second toe measured approximately 1.1 cm x 0.9 cm x 0.1 cm. This area did not probe to bone. As noted above there was some surrounding erythema to the distal half of the right second toe. The patient's vital signs are stable. The patient's WBC today is 8.4. Deep wound cultures were taken and show growth of Streptococcus agalactiae and Staphylococcus epidermidis. Patient is noted to have palpable dorsalis pedis and posterior tibial pulses. Capillary fill time is less than 3 seconds. MRI of the right foot was obtained that showed signs consistent with osteomyelitis to the distal phalanx of the right second toe. At this time the decision was made to perform the debridement of all nonviable, infected, necrotic soft tissue and bone of the right foot with partial right second toe amputation. At this time, the planned surgical procedure was discussed in great detail with the patient. This was done to the patient's satisfaction. The patient agrees to proceed with the planned procedure and operation at this time. All the risks and potential complications were reviewed to the patient. She relates an understanding and importance of proper compliance following this procedure to help optimize the potential of healing, but no guarantees were given. She is advised that the complications and risks include, but are not l imited to, further infection, need for further surgeries, recurrence of ulcers, transfer lesions, increased deformity of the feet and toes, weakness, loss of strength, chronic swelling, Charcot foot, nerve damage, inability to walk, inability to wear shoes, severe pain, complex regional pain syndrome, need for more proximal or extensive amputation such as a TMA or BKA, loss of complete limb, or even possible loss of life. All the patient's questions were answered to her satisfaction. It was then agreed upon to proceed with the above-stated procedure. The consent form was reviewed with the patient and was freely signed. Again no guarantees were given. Description of procedure: The patient was brought to the operating room and placed on the table in the supine position. The patient is already on antibiotics per hospitalist. The patient received MAC anesthesia with a local block consisting of 13 mL of 0.5% Marcaine plain administered in a typical ankle block fashion about the patient's right ankle. Next, a well-padded ankle tourniquet was then applied to the patient's right ankle. The right foot and ankle were then scrubbed prepped and draped in usual aseptic manner. A timeout was performed and the patient was properly identified and the surgical plan was confirmed. Next, attention was first directed to the right foot. The foot was then elevated and the tourniquet was inflated to 250 mmHg. Using a #15 scalpel blade, a vertical fishmouth incision was made starting dorsally overlying the midshaft of the proximal phalanx of the right second toe. This incision was ma de completely down to bone. Next, the right second toe was then disarticulated at the proximal interphalangeal joint of the right second toe, and the end of the right second toe was passed from the operative table in toto. The soft tissue and bone of the right second toe was then divided into 2 sections on the back table and half was sent to microbiology for aerobic, anaerobic, acid-fast, and fungal evaluation. The second half was then sent to pathology for further evaluation. Next, attention was directed back to the surgical site. All tendons were transected as far back as possible and any other nonviable appearing soft tissue was carefully dissected and removed. At this time, top gloves were taken off and clean instruments were used. The surgical site was flushed with copious amounts of normal sterile saline. The remaining tissue and bone appeared healthy. It was at this time that a bone cutter was employed to remove the head of the proximal phalanx of the left second toe as a clearance fragment. The bone appeared to be hard and healthy. This was again passed in toto from the operative table and split into 2 pieces with half going to microbiology for aerobic, anaerobic, acid-fast, and fungal evaluation. The other half was sent to pathology for further evaluation. Once this was complete, the surgical site was again flushed with copious amounts of normal sterile saline. Since all the soft tissue and bone appeared to be healthy and the incision was proximal to the erythematous tissue prior to the start of the procedure, the decision was made to than primarily close the surgical site. This was done with 3-0 nylon in a simple interrupted fashion. The tourniquet was then dropped and a prompt hyperemic response was appreciated to remaining digits of the left foot as well as the distal surgical site and previous healed amputation site of the right hallux. The surgical site was then dressed with Betadine soaked Adaptic, followed by 4 x 4's, ABDs, Kerlix, and an Matthew bandage. After procedure: The patient tolerated the procedure and anesthesia well. He was transferred to the PACU with vital signs stable and vascular status intact to all remaining digits of the left foot. She will be transferred back to the hospital floor upon continued stability. She was advised to continue with nonweightbearing to left lower extremity as much as possible, and if she needs to be up for any reason, she is to be heel weightbearing to the right foot for only a few steps at a time with the assistance of her surgical shoe. She is to keep the dressing clean, dry, and intact. The patient is to continue with antibiotics under the management of primary team. Infectious disease will be consulted. She is also to continue DVT prophylaxis and medical management per primary team. She is to elevate the left foot for postop pain and inflammation management. I will continue to follow this patient while in house.
[2019-06-15 09:31] LABS: Bedside Glucose 177 mg/dL (70-110)
--- NOTE | 2019-06-15 09:37 | PCA ---
pt off floor
[2019-06-15] MEDS: Pregabalin 50 MG Capsule 100 MG PO ×2 (11:31→21:52)
[2019-06-15] MEDS: DULoxetine Hcl 30 MG Capsule PO (11:32)
[2019-06-15] MEDS: Enoxaparin 40 MG/0.4 ML Syringe SC (11:32)
[2019-06-15] MEDS: Psyllium 1 PACKET PO (11:32)
[2019-06-15] MEDS: Famotidine 20 MG Tablet PO (11:33)
[2019-06-15] MEDS: Lisinopril 20 MG Tablet PO (11:33)
[2019-06-15 12:05] LABS: Bedside Glucose 142 mg/dL (70-110)
--- NOTE | 2019-06-15 12:06 | PCM.HP.ID ---
Problem List (1) Osteomyelitis of toe of right foot Status: Acute Reason for Consult: osteo Consulted by: Dr. Pineda History of Present Illness: The patient is a 48 year old F with DM neuropathy, prior R 1st toe amputation, presented 06/12 with acute onset of R foot pain, swelling, redness, and drainage. Toe with bloody drainage, some fevers. Started on vanc/zosyn/levaquin, taken to OR this AM for partial R 2nd toe amputation by Dr. Acuña. Full ROS performed and neg except as noted above. - Medical History Past Medical History (Chronic Problems): Chronic Problems Chronic ulcer of right foot with fat layer exposed (Chronic) Type 2 diabetes mellitus with diabetic polyneuropathy (Chronic) Hammer toe of right foot (Chronic) Obesity (BMI 30-39.9) (Chronic) Vertigo (Chronic) Hyperlipidemia (Chronic) Fibromyalgia (Chronic) Depression with anxiety (Chronic) Allergies/Adverse Reactions: Allergies clindamycin Allergy (Verified 05/18/19 22:30) Hives erythromycin base [From E-Mycin] Allergy (Verified 05/18/19 22:30) Hives Home Medications: Ambulatory Orders Medication Instructions Recorded Duloxetine Hcl [Cymbalta] 60 mg PO QHS 10/30/13 Insulin Detemir [Levemir (BK)] 45 units SC QHS #0 10/30/13 Multivitamins,Therapeutic 1 tablet PO DAILY 06/13/14 [Multivitamin] Fluticasone 44 Mcg [Flovent (SP)] 2 puff INHALATION BID PRN 10/17/17 Hydrochlorothiazide 50 mg PO DAILY 10/17/17 Levothyroxine [Synthroid] 112 mcg PO DAILY 10/17/17 Meclizine HCl 25 mg PO TID PRN 10/17/17 Ondansetron [Zofran Odt] 4 mg PO DAILY PRN 10/17/17 Famotidine [Pepcid] 20 mg PO DAILY 05/18/19 Hydroxyzine Pamoate [Vistaril] 50 mg PO QHS 05/18/19 Lisinopril [Zestril] 20 mg PO DAILY 05/18/19 Insulin Aspart [Novolog Flexpen See Protocol SUBCUT TIDCM 06/12/19 ([facility])] Pregabalin [Lyrica] 100 mg PO BID 06/12/19 traZODone [Desyrel] 50 mg PO QHS 06/12/19 Duloxetine Hcl [Cymbalta] 30 mg PO DAILY 06/13/19 - Social History Tobacco Use: cigarettes Vital Signs Temp Pulse Resp BP Pulse Ox 97.5 F L 67 18 114/66 98 06/15/19 10:40 06/15/19 10:40 06/15/19 10:40 06/15/19 10:40 06/15/19 10:40 Oxygen Delivery Method Room Air Weight: 100.3 kg Body Mass Index (BMI) 36.8 Finger Stick Blood Glucose 496 Microbiology Past 72 Hours 06/13/19 02:00 Gram Stain - Final Wound - Aerobic & Anaerobic Swabs Wound Culture - Final Streptococcus agalactiae (B) Staphylococcus epidermidis 06/12/19 09:47 Blood Culture - Preliminary Blood Culture (Wb) - Anticubital Left No growth in 48 hours. Laboratory Tests Past 24 Hrs 06/15/19 06/15/19 06/15/19 05:58 05:58 05:58 WBC 8.4 RBC 3.74 L Hgb 10.2 L Hct 32.2 L MCV 86.1 MCH 27.3 MCHC 31.7 L RDW Std Deviation 42.7 RDW Coeff of Brea 13.6 Plt Count 197 MPV 9.6 Immature Gran % (Auto) 0.500 Neut % (Auto) 63.6 Lymph % (Auto) 24.8 [place] % (Auto) 8.1 Eos % (Auto) 2.5 Baso % (Auto) 0.5 Absolute Neuts (auto) 5.4 Absolute Lymphs (auto) 2.08 Nucleated RBC % 0 Sodium 141 Potassium 3.7 Chloride 113 H Carbon Dioxide 21.0 Anion Gap 7 BUN 11 Creatinine 0.67 Estim Creat Clear Calc 93.40 Est GFR (MDRD) Af Amer 120 Est GFR (MDRD) Non-Af 99 BUN/Creatinine Ratio 16.3 Glucose 223 H Hemoglobin A1c 10.8 H Calcium 8.0 L TSH 2.91 - Other Studies Radiology: [] reviewed Other Studies: [] Route of nutrition/ use of supplements: [] Nutritional Intake: [] IV Site: [] Carrillo Catheter: [] - Physical Exam General: Alert, Oriented x3, Cooperative, No apparent distress HEENT: Atraumatic, PERRLA, EOMI Neck: Supple, No Nodes Lungs: Clear to auscultation, Normal air movement Cardiovascular: Regular rate, Regular Rhythm Abdomen: Soft, Non Tender, Non-Distended Extremities: No edema Skin: Ulcer/ Wound - R foot wrapped IV Site: Peripheral Musculoskeletal: No Tenderness to Palpation of Joints or Extremities Neurological: Cranial nerves II-XII grossly intact - Assessment/Plan Antibiotics: [] Assessment/Plan: [] Active and Suspected Problems Osteomyelitis of toe of right foot (Acute) Infection of toe (Acute) Cellulitis of foot, right (Acute) R 2nd toe osteo - now s/p partial amputation by Dr. Acuña. Wound cx with MRSE and GBS. Recent cx with morganella and MRSE. Will stop levaquin, continue vanc/zosyn for now. Will follow, thank you.
--- NOTE | 2019-06-15 12:27 | NURSING ---
up to unit talked with patient. Aware per Dr. Pineda if pt wants to leave the unit to sign AMA form. pt being wheeled towards the elevator by a visitor. aware per primary RN pt had unhooked her own IVF. Dr. Pineda at nurses' station reminded patient to sign the form. AMA form taken to the patient in the hallway. Discussed with patient if she leaves the unit she will need to have the IV removed and to return as a patient will have to go through the ER as she will no longer be a patient on our unit. Pt demanding to see the policy to leave the unit. Dr. Pineda came over to talk w/ patient. Discussed patient's safety and monitoring patient and IVF with the infection, and that it in the best interest for the patient to follow the physician's instructions which she has stated at this point not to leave the unit. Pt signed the AMA form but then decided to go back to her room. Alton Ordonez. Energy Sales Broker informed of situation. [id number] This nurse, primary RN, Dr. Pineda, and Alton WOODS discussed situation. Primary RN and Assist. Energy Sales Broker back to talk w/ Patient regarding plan of care
--- NOTE | 2019-06-15 12:45 | NURSING ---
It was reported to this nurse that the patient was requesting to leave the floor temporarily. There was a concern from a previous occurrence when the patient had left the floor but was not easily able to be found the previous day and hospital security was notified to help locate the patient. It was agreed upon that for patient safety reasons that a discussion would occur with the patient to allow her to leave the floor but that certain parameters would need to be followed to mitigate potential safety concerns. Dr Pineda agreed that patient would be able to leave the floor to help relieve some of the patient's anxiety but that we would want to restrict the number of occurrences to 3 times a day for a 10 minute duration each time. It was also noted that the patient should not be going further than the receptionist airline lounge desk and front door area when leaving the unit. This nurse and Mandie RN spoke with the patient and her visitor. Described specific parameters that have been previously mentioned in this note as well as the need to sign in and out when leaving the unit. Emphasized that for the patient's safety nursing staff must be able to easily identify where patients are. Patient kept her hands over her eyes during nearly the whole conversation and stated that she just wanted to take a nap. This nurse exited the room after ensuring there were not any further questions or concerns.
--- NOTE | 2019-06-15 13:06 | PCM.PROGNOTE ---
<Marcelle Lopez - Last Filed: 06/15/19 14:40> Patient Problems: Active and Suspected Problems Osteomyelitis of toe of right foot (Acute) Infection of toe (Acute) Cellulitis of foot, right (Acute) Subjective: Patient seen and examined. Underwent partial second toe amputation this morning with Dr. Acuña. Resting comfortably in bed. Postop dressing in place. - Physical Exam General: Alert, Oriented x3, No apparent distress HEENT: Atraumatic, PERRLA, EOMI, Normocephalic Neck: Supple, No JVD, Negative Carotid Bruits Lungs: Clear to auscultation, Normal air movement Cardiovascular: Regular rate, Regular Rhythm, Normal S1, Normal S2, No murmurs Abdomen: Bowel Sounds Present, Soft, Non Tender, Non-Distended Extremities: No clubbing, No cyanosis, No edema Skin: - - Right foot postop dressing clean dry and intact. Musculoskeletal: No Tenderness to Palpation of Joints or Extremities Neurological: Cranial nerves II-XII grossly intact, Neuro grossly intact Psych/Mental Status: Flat Affect Vital Signs Temp Pulse Resp BP Pulse Ox 97.5 F L 67 18 114/66 98 06/15/19 10:40 06/15/19 10:40 06/15/19 10:40 06/15/19 10:40 06/15/19 10:40 Oxygen Delivery Method Room Air Weight: 221 lb 1.978 oz Body Mass Index (BMI) 36.8 Finger Stick Blood Glucose 496 Intake and Output for Last 24 Hours 06/13/19 06/14/19 06/15/19 23:59 23:59 23:59 Intake Total 5544.16 / 5544.16 4657.50 / 5057.50 2518.84 / 2518.84 Output Total 950 / 950 450 / 450 Balance 5544.16 / 5544.16 3707.50 / 4107.50 2068.84 / 2068.84 Microbiology Past 72 Hours 06/13/19 02:00 Gram Stain - Final Wound - Aerobic & Anaerobic Swabs Wound Culture - Final Streptococcus agalactiae (B) Staphylococcus epidermidis 06/12/19 09:47 Blood Culture - Preliminary Blood Culture (Wb) - Anticubital Left No growth in 48 hours. Laboratory Tests Past 24 Hrs 06/15/19 06/15/19 06/15/19 05:58 05:58 05:58 WBC 8.4 RBC 3.74 L Hgb 10.2 L Hct 32.2 L MCV 86.1 MCH 27.3 MCHC 31.7 L RDW Std Deviation 42.7 RDW Coeff of Brea 13.6 Plt Count 197 MPV 9.6 Immature Gran % (Auto) 0.500 Neut % (Auto) 63.6 Lymph % (Auto) 24.8 [place] % (Auto) 8.1 Eos % (Auto) 2.5 Baso % (Auto) 0.5 Absolute Neuts (auto) 5.4 Absolute Lymphs (auto) 2.08 Nucleated RBC % 0 Sodium 141 Potassium 3.7 Chloride 113 H Carbon Dioxide 21.0 Anion Gap 7 BUN 11 Creatinine 0.67 Estim Creat Clear Calc 93.40 Est GFR (MDRD) Af Amer 120 Est GFR (MDRD) Non-Af 99 BUN/Creatinine Ratio 16.3 Glucose 223 H Hemoglobin A1c 10.8 H Calcium 8.0 L TSH 2.91 POC Glucose 06/15/19 06/15/19 06/15/19 11:53 09:25 06:35 POC Glucose 142 H 177 H 224 H 06/14/19 06/14/19 22:30 16:46 POC Glucose 268 H 148 H Medical Necessity - Tobacco Use Smoking Status: Current every day smoker Tobacco Use: Cigarettes - 1/2 PPD. Assessment/Plan All Active Problems Osteomyelitis of toe of right foot (Acute) Infection of toe (Acute) Cellulitis of foot, right (Acute) 1. Acute sepsis secondary to right second distal toe ulcer with osteomyelitis and cellulitis- Wound culture shows strep agalactiae and staph epidermidis. IV vancomycin and IV Zosyn. Podiatry on consult. Follows with Dr. Acuña as outpatient. Bedside debridement performed 06/14/2018. MRI showed evidence of osteomyelitis second distal phalanx. Patient underwent partial right second toe amputation 06/15/[address] Acuña. Continue dressing changes per podiatry orders. Offloading right foot. Noninvasive vascular studies ordered. MRSA PCR negative. PRN pain regimen. Blood cultures negative. ID consulted. 2. Type 2 diabetes mellitus with diabetic polyneuropathy-hemoglobin A1c 10.5%. Accu-Cheks ACHS with SSI. Continue home scheduled NovoLog and long-acting Levemir regimen. Patient noncompliant with insulin regimen and refused insulin last night. 3. Tobacco dependence- encourage cessation. 4. Hypertension-stable, continue home hydrochlorothiazide, lisinopril. 5. Hyperlipidemia-not on regimen. 6. Hypothyroidism-continue home Synthroid regimen. 7. Morbid obesity- encouraged diet and lifestyle modifications. Nutrition consult. 8. Fibromyalgia- on lyrica. 9. Anxiety/depression-continue duloxetine, trazodone. DVT prophylaxis-Lovenox subcu This patient was seen by ANGELES Ram under the supervision of Dr. Pineda. <Gail Pineda - Last Filed: 06/15/19 16:04> - Physical Exam Vital Signs Temp Pulse Resp BP Pulse Ox 97.5 F L 67 18 114/66 98 06/15/19 10:40 06/15/19 10:40 06/15/19 10:40 06/15/19 10:40 06/15/19 10:40 Oxygen Delivery Method Room Air Weight: 100.3 kg Body Mass Index (BMI) 36.8 Finger Stick Blood Glucose 496 Intake and Output for Last 24 Hours 06/13/19 06/14/19 06/15/19 23:59 23:59 23:59 Intake Total 5544.16 / 5544.16 4657.50 / 5057.50 2518.84 / 2518.84 Output Total 950 / 950 450 / 450 Balance 5544.16 / 5544.16 3707.50 / 4107.50 2068.84 / 2068.84 Microbiology Past 72 Hours 06/15/19 09:00 Gram Stain - Final Bone - Toe 06/15/19 09:00 Gram Stain - Final Bone - Toe 06/13/19 02:00 Gram Stain - Final Wound - Aerobic & Anaerobic Swabs Wound Culture - Final Streptococcus agalactiae (B) Staphylococcus epidermidis Anaerobic Culture - Preliminary Checking for anaerobes, further studies to follow. 06/12/19 09:47 Blood Culture - Preliminary Blood Culture (Wb) - Anticubital Left No growth in 48 hours. Laboratory Tests Past 24 Hrs 06/15/19 06/15/19 06/15/19 05:58 05:58 05:58 WBC 8.4 RBC 3.74 L Hgb 10.2 L Hct 32.2 L MCV 86.1 MCH 27.3 MCHC 31.7 L RDW Std Deviation 42.7 RDW Coeff of Brea 13.6 Plt Count 197 MPV 9.6 Immature Gran % (Auto) 0.500 Neut % (Auto) 63.6 Lymph % (Auto) 24.8 [place] % (Auto) 8.1 Eos % (Auto) 2.5 Baso % (Auto) 0.5 Absolute Neuts (auto) 5.4 Absolute Lymphs (auto) 2.08 Nucleated RBC % 0 Sodium 141 Potassium 3.7 Chloride 113 H Carbon Dioxide 21.0 Anion Gap 7 BUN 11 Creatinine 0.67 Estim Creat Clear Calc 93.40 Est GFR (MDRD) Af Amer 120 Est GFR (MDRD) Non-Af 99 BUN/Creatinine Ratio 16.3 Glucose 223 H Hemoglobin A1c 10.8 H Calcium 8.0 L TSH 2.91 POC Glucose 06/15/19 06/15/19 06/15/19 11:53 09:25 06:35 POC Glucose 142 H 177 H 224 H 06/14/19 06/14/19 22:30 16:46 POC Glucose 268 H 148 H Assessment/Plan This patient was seen in conjunction with Marcelle Lopez NP. I have independently interviewed and examined the patient and reviewed pertinent historical, laboratory, and other data. Please refer to her note for patient's presentation, findings, and recommendations. Patient was seen and examined. MRI of the foot showed marrow edema with osteomyelitis of the second distal phalanx Patient underwent debridement of necrotic, nonviable infected soft tissue and bone of the right foot with partial second toe amputation today, 06/15/19. Operatively on the floor, patient attempted to sign out AMA because she wanted to go outside. Convinced to stay and receive treatment. Vitals were reviewed -stable Physical Exam: Gen: Obese, appears comfortable, not pale, not jaundiced, alert oriented x3 CVS:HS I +II, regular, no murmurs RESP: Clinically clear to auscultation GI: BS present and normal, nontender, no palpable organs EXT: Right lower extremity second to dressed up in ROHAN-bandages, no edema or erythema to the foot Labs reviewed ASSESSMENT: 1. Sepsis secondary to MRSE/ strept agalactaie second toe ulcer osteomyelitis cellulitis, status post excision 2. Hypokalemia, resolved 3. Hypomagnesemia, replaced 4. Type II DM with diabetic polyneuropathy 5. Nicotine dependence 6. Hypertension 7. Hypothyroidism 8. Morbid obesity 9. Anxiety/depression/fibromyalgia Meds reviewed Plan: Continue on vancomycin and Zosyn per ID recommendation Wound care per podiatry recommendation Discussed with child protective services social worker/case management -I think you will be prudent for patient to be discharged to a prison facility for aggressive wound therapy as she is homeless; to assist with facilitating good healing and overall favorable outcome for this patient's wound in the light of her associated neuropathy. Code Visit Inpatient E&M: 52162 Subs Hosp L2
--- NOTE | 2019-06-15 13:17 | PCA ---
pt off floor
--- NOTE | 2019-06-15 15:00 | CASEMGMT ---
Social Work Note SW spoke with pt regarding possibly going to SNF at discharge due to wound care. SW met with pt and introduced self and role at [facility]. Pt is sleeping but easy to awake. SW informed pt that physician is recommending SNF for pt. Pt appears receptive to SNF. SW provided pt with list of area SNF that accept pt's insurance. Pt agreeable to this worker sending a referral to [facility]. SW explained referral process and that pt will need pre-cert. Pt states understanding. SW placed a call to Maritza at [facility] and updated her on referral. SW faxed referral to [facility]. Plan: SNF pending acceptance and pre-cert. Chica Torres RN PALLIATIVE CARE, CASH POSTING CLERK
--- NOTE | 2019-06-15 16:23 | CASEMGMT ---
Social Work Note STEFFI received call from Maritza at [facility] stating pt smokes one pack of cigarettes a day and [facility] is a nonsmoking facility. Maritza mentioned [facility] as they are a smoking facility. STEFFI in to update pt. STEFFI updated pt that [facility] is a non smoking facility so she won't be able to smoke at that facility. Pt states then I am not going. STEFFI informed pt that [facility] in [place] does allow smoking. Pt agreeable to [facility]. STEFFI placed a call back to Maritza and updated her that pt is agreeable to [facility]. Maritza states she will submit for pre-cert. Plan: [facility] pending pre-cert Chica Torres ACCOUNTS RECEIVABLE PROCESSOR, MARKET SURVEY REPRESENTATIVE
[2019-06-15 16:40] LABS: Bedside Glucose 214 mg/dL (70-110)
--- NOTE | 2019-06-15 17:42 | NURSING ---
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 She is insisting to go out and take fresh air. Pt is notified that she cannot leave floor due to her recent surgery and her iv antibiotics. She is very angry and upset demanding to leave stating she is has claustrophobia needs open space. Friend at bedside.Dr. Holloway into see pt and she is ok with her leaving the floor for intervals of 10 mins, 3 times per shift. Pt is also notified that she is to stay in front of the main entrance. Pt later in room having a breakdown sobbing and crying on phone. She later recovers quickly when she is given okay that she can leave the floor for the intervals.She is instructed to sign off floor and sign in on return. She has left at 1740 and did not sign the paper. Also she was noted smoking below 315 room. IV atbs are off due to her leaving the floor for periods of time and not alerting staff she has return immediately.
[2019-06-15] MEDS: oxyCODONE 5 MG Tablet PO (18:14)
[2019-06-15] MEDS: traZODone 50 MG Tablet PO (21:40)
[2019-06-15] MEDS: hydrOXYzine PAM 25 MG Capsule 50 MG PO (21:40)
[2019-06-15] MEDS: DULoxetine Hcl 60 MG Capsule PO (21:41)
[2019-06-15 22:06] LABS: Vancomycin, Trough Level 20.4 ug/mL (5.0-15.0)
[2019-06-15 22:30] LABS: Bedside Glucose 273 mg/dL (70-110)
--- NOTE | 2019-06-15 23:58 | PCM.RX.CS ---
Consult Pharmacy has been consulted to manage selected antiobiotic: Vancomycin Type of Consult: Follow-up Suspected Infection: Skin/Soft tissue Labs: Sodium 141 mmol/L (136-145) 06/15/19 05:58 Potassium 3.7 mmol/L (3.5-5.1) 06/15/19 05:58 Chloride 113 mmol/L (98-107) H 06/15/19 05:58 Carbon Dioxide 21.0 mmol/L (21.0-32.0) 06/15/19 05:58 Anion Gap 7 (5-15) 06/15/19 05:58 BUN 11 mg/dL (7-18) 06/15/19 05:58 Creatinine 0.67 mg/dL (0.55-1.02) 06/15/19 05:58 Est GFR (MDRD) Af Amer 120 mL/min (>60) 06/15/19 05:58 Est GFR (MDRD) Non-Af 99 mL/min (>60) 06/15/19 05:58 BUN/Creatinine Ratio 16.3 RATIO (10-20) 06/15/19 05:58 Glucose 223 mg/dL (74-106) H 06/15/19 05:58 Vancomycin Trough 20.4 ug/mL (5.0-15.0) H 06/15/19 21:08 Microbiology: Microbiology 06/15/19 09:00 Bone - Toe Gram Stain - Final 06/15/19 09:00 Bone - Toe Gram Stain - Final 06/13/19 02:00 Wound - Aerobic & Anaerobic Swabs Gram Stain - Final 06/13/19 02:00 Wound - Aerobic & Anaerobic Swabs Wound Culture - Final Streptococcus agalactiae (B) Staphylococcus epidermidis 06/13/19 02:00 Wound - Aerobic & Anaerobic Swabs Anaerobic Culture - Preliminary Checking for anaerobes, further studies to follow. 06/12/19 09:47 Blood Culture (Wb) - Anticubital Left Blood Culture - Preliminary No growth in 48 hours. Goal Trough: 15-20 mcg/mL Pharmacy Plan for Drug Dosing: Pharmacy Service will continue to monitor and adjust dosing as required. TROUGH 20.4 NO CHANGES REDRAW TROUGH 06/19 Follow-Up Labs: Trough Vancomycin Labs to be done on [date and time ordered]: 06/19
[2019-06-16 03:15] VITALS: BP 124/67; PULSE 73; RESP 16; TEMP 36.6; O2SAT 93
[2019-06-16] MEDS: oxyCODONE 5 MG Tablet PO (03:24)
[2019-06-16 05:50] LABS: Hematocrit 28.7 % (37-47); Hemoglobin 9.2 g/dL (12.0-15.0); Mean Corp Hgb Conc 32.1 g/dL (32-36); Mean Corpuscular Hgb 27.3 pg (27.0-32.0); Mean Corpuscular Volume 85.2 fL (81-99); Mean Platelet Vol. 9.1 fl (6.2-12.0); Platelet Count 205 K/mm3 (150-450); RBC Distribution Width CV 13.9 % (11.6-14.6); RBC Distribution Width SD 43.6 fl (35.1-43.9); Red Blood Count 3.37 M/mm3 (4.2-5.4); White Blood Count 6.7 K/mm3 (4.4-11.0)
[2019-06-16 06:30] LABS: Anion Gap 6 (5-15); BUN 8 mg/dL (7-18); BUN/Creat Ratio 13.3 RATIO (10-20); Chloride 111 mmol/L (98-107); EST Glomerular Filtration Rate 113 mL/min (>60); Est Glom Filt Rate - Afr Amer 137 mL/min (>60); Glucose 214 mg/dL (74-106); Potassium 3.5 mmol/L (3.5-5.1); Sodium Level 141 mmol/L (136-145)
[2019-06-16] MEDS: Insulin Lispro 100 UNIT/ML INSULN.PEN SC ×3 (06:58→21:13)
[2019-06-16] MEDS: Levothyroxine 112 MCG Tablet PO (06:58)
[2019-06-16 07:11] LABS: Bedside Glucose 241 mg/dL (70-110)
[2019-06-16 09:15] VITALS: BP 122/75; PULSE 67; RESP 16; TEMP 36.6; O2SAT 97
[2019-06-16] MEDS: Famotidine 20 MG Tablet PO (10:06)
[2019-06-16] MEDS: Lisinopril 20 MG Tablet PO (10:06)
[2019-06-16] MEDS: Multivitamins,Therapeutic Tablet 1 TABLET PO (10:06)
[2019-06-16] MEDS: DULoxetine Hcl 30 MG Capsule PO (10:06)
[2019-06-16] MEDS: Enoxaparin 40 MG/0.4 ML Syringe SC (10:07)
[2019-06-16] MEDS: Psyllium 1 PACKET PO (10:07)
[2019-06-16] MEDS: HYDROcodone Bitartrate/Apap 5/325 Tablet PO ×2 (10:13→20:38)
[2019-06-16] MEDS: Pregabalin 50 MG Capsule 100 MG PO ×2 (10:14→20:22)
--- NOTE | 2019-06-16 10:15 | NURSING ---
Addendum entered by Tawnya Rogel 06/16/19 12:56: zosyn was hung- attached to ordered IVF not PRN 15ml/hr bag. Notified by lens edger that housekeeper and laundry assistant reported that IV was leaking last night. Vancomycin was scheduled to be hung however, due to leaking- this RN did not feel this was safe for pt. Leaking IV removed and new IV site attempted x2. Mague, charge aide notified and discussed with this RN. Dr. Lorenzo states he is awaiting cultures and then he will decide if pt needs IV atb and d/c to [facility] or if OK to send on PO atb and d/c home. Since need for IV ATB is uncertain, staff requesting it we may have order to obtain midline from Dr. Pineda. Awaiting reply. Original Note: vanco will be hung late due to zosyn running at this time-
--- NOTE | 2019-06-16 12:01 | PN_ITS ---
Patient Problems: Active and Suspected Problems Osteomyelitis of toe of right foot (Acute) Infection of toe (Acute) Cellulitis of foot, right (Acute) Subjective: This 48-year-old female patient was seen resting comfortably in chair by her bed with her feet in the dependent position upon my arrival today. Patient is postop day #1 status post partial right second toe amputation. Patient reports no acute events overnight. Patient states that she feels well today and has no complaints currently. The nursing notes as well as discussing the patient with the hospitalist show that the patient has been noncompliant with not only keeping pressure off of her right foot but is also been noncompliant in her care trying to continually leave the floor and almost signing out AMA yesterday. Patient currently denies any feelings of nausea, vomiting, fever, chills. - Physical Exam General: Alert, Oriented x3, Cooperative, No apparent distress Extremities: Capillary Refill Less than 3 Seconds - To distal stumps of right toes 1 and 2 into the distal digits 3 through 5., No Calf Tenderness - Negative Dominic and Sosa signs bilateral, Edema - Improving edema to right remaining second toe., Peripheral Pulses Normal - DP and PT pulses palpable bilateral Skin: - - Surgical site is well coapted with sutures intact to the remaining proximal aspect of the right second toe following her partial toe amputation yesterday. There is no purulence, no malodor, no streaking cellulitis, no significant increase in warmth appreciated today. Musculoskeletal: No Tenderness to Palpation of Joints or Extremities Neurological: - - Lack of normal epicritic sensation consistent with patient's diabetic status. Psych/Mental Status: Normal Affect, Appropriate Vital Signs Temp Pulse Resp BP Pulse Ox 97.9 F 67 16 122/75 H 97 06/16/19 09:15 06/16/19 09:15 06/16/19 09:15 06/16/19 09:15 06/16/19 09:15 Oxygen Delivery Method Room Air Weight: 100.3 kg Body Mass Index (BMI) 36.8 Finger Stick Blood Glucose 496 Intake and Output for Last 24 Hours 06/14/19 06/15/19 06/16/19 23:59 23:59 23:59 Intake Total 4657.50 / 5057.50 4608.63 / 4908.63 1121 / 1121 Output Total 950 / 950 450 / 950 500 / 500 Balance 3707.50 / 4107.50 4158.63 / 3958.63 621 / 621 Microbiology Past 72 Hours 06/15/19 09:00 Gram Stain - Final Bone - Toe Wound Culture - Preliminary No growth-Final to follow 06/15/19 09:00 Gram Stain - Final Bone - Toe Wound Culture - Preliminary No growth-Final to follow 06/13/19 02:00 Gram Stain - Final Wound - Aerobic & Anaerobic Swabs Wound Culture - Final Streptococcus agalactiae (B) Staphylococcus epidermidis Anaerobic Culture - Preliminary Checking for anaerobes, further studies to follow. 06/12/19 09:47 Blood Culture - Preliminary Blood Culture (Wb) - Anticubital Left No growth in 48 hours. Laboratory Tests Past 24 Hrs 06/15/19 06/16/19 06/16/19 21:08 05:40 05:40 WBC 6.7 RBC 3.37 L Hgb 9.2 L Hct 28.7 L MCV 85.2 MCH 27.3 MCHC 32.1 RDW Std Deviation 43.6 RDW Coeff of Brea 13.9 Plt Count 205 MPV 9.1 Sodium 141 Potassium 3.5 Chloride 111 H Carbon Dioxide 24.0 Anion Gap 6 BUN 8 Creatinine 0.60 Estim Creat Clear Calc 104.30 Est GFR (MDRD) Af Amer 137 Est GFR (MDRD) Non-Af 113 BUN/Creatinine Ratio 13.3 Glucose 214 H Calcium 8.0 L Vancomycin Trough 20.4 H POC Glucose 06/16/19 06/15/19 06/15/19 06:55 21:56 16:30 POC Glucose 241 H 273 H 214 H 06/15/19 11:53 POC Glucose 142 H Medical Necessity - Tobacco Use Smoking Status: Current every day smoker Tobacco Use: Cigarettes - 1/2 PPD. Assessment/Plan All Active Problems Osteomyelitis of toe of right foot (Acute) Infection of toe (Acute) Cellulitis of foot, right (Acute) Postop day #1 status post right partial second toe amputation DM with neuropathy Resolving cellulitis Other comorbidities This patient was carefully examined and evaluated today resting in a chair by her bed with her feet in the dependent position which she was advised against doing. Patient is postop day #1 status post right partial second toe amputation. WBC 6.7. Vital signs are currently stable. Wound cultures taken before the procedure show growth of Streptococcus agalactiae as well as Staphylococcus epidermidis. Bone and soft tissue cultures taken during procedure show rare white blood cells as well as rare gram-positive cocci. Preliminary results from the clearance fragment currently show no white blood cells and no organisms seen currently. No strikethrough appreciated outer dressing. ID on case. The surgical site was carefully examined and evaluated in detail today. Surgical site still well coapted with sutures intact. Erythema continues to resolve as well as edema to the area. No purulence or any other s igns of infection appreciated today. The site was then carefully cleansed with saline, and then dressed with Betadine soaked Adaptic, Betadine gauze, regular 4 x 4's, ABDs, Kerlix and an Matthew bandage. Patient is to continue to leave the dressing clean dry and intact. I again stressed the importance of compliance with the patient and following all the orders that have been placed. Patient to continue to keep right lower extremity elevated as much as possible to help with postop swelling and pain. Upon discharge, the patient is to follow-up with me at [facility] in [place] early next week. She knows the office number and where office is located as she has been there before. Continue medical management DVT prophylaxis appreciated per primary team. Podiatry will continue to follow this patient while in house.
--- NOTE | 2019-06-16 12:14 | PN_ITS ---
<Marcelle Lopez - Last Filed: 06/16/19 12:19> Patient Problems: Active and Suspected Problems Osteomyelitis of toe of right foot (Acute) Infection of toe (Acute) Cellulitis of foot, right (Acute) Subjective: Patient seen and examined. Complains of 8/10 right foot pain. Reports headache, requesting pain medicine be switched to [place]. Denies fever, chills. - Physical Exam General: Alert, Oriented x3, Cooperative HEENT: Atraumatic, PERRLA, EOMI, Normocephalic Neck: Supple, No JVD, Negative Carotid Bruits Lungs: Clear to auscultation, Normal air movement Cardiovascular: Regular rate, Regular Rhythm, Normal S1, Normal S2, No murmurs Abdomen: Bowel Sounds Present, Soft, Non Tender, Non-Distended Extremities: No clubbing, No cyanosis, No edema Skin: No rashes, No breakdown, - - Right foot postop dressing clean dry and intact. Musculoskeletal: No Tenderness to Palpation of Joints or Extremities Neurological: Cranial nerves II-XII grossly intact, Neuro grossly intact Psych/Mental Status: Flat Affect Vital Signs Temp Pulse Resp BP Pulse Ox 97.9 F 67 16 122/75 H 97 06/16/19 09:15 06/16/19 09:15 06/16/19 09:15 06/16/19 09:15 06/16/19 09:15 Oxygen Delivery Method Room Air Weight: 221 lb 1.978 oz Body Mass Index (BMI) 36.8 Finger Stick Blood Glucose 496 Intake and Output for Last 24 Hours 06/14/19 06/15/19 06/16/19 23:59 23:59 23:59 Intake Total 4657.50 / 5057.50 4608.63 / 4908.63 1171 / 1171 Output Total 950 / 950 450 / 950 500 / 500 Balance 3707.50 / 4107.50 4158.63 / 3958.63 671 / 671 Microbiology Past 72 Hours 06/15/19 09:00 Gram Stain - Final Bone - Toe Wound Culture - Preliminary No growth-Final to follow 06/15/19 09:00 Gram Stain - Final Bone - Toe Wound Culture - Preliminary No growth-Final to follow 06/13/19 02:00 Gram Stain - Final Wound - Aerobic & Anaerobic Swabs Wound Culture - Final Streptococcus agalactiae (B) Staphylococcus epidermidis Anaerobic Culture - Preliminary Checking for anaerobes, further studies to follow. 06/12/19 09:47 Blood Culture - Preliminary Blood Culture (Wb) - Anticubital Left No growth in 48 hours. Laboratory Tests Past 24 Hrs 06/15/19 06/16/19 06/16/19 21:08 05:40 05:40 WBC 6.7 RBC 3.37 L Hgb 9.2 L Hct 28.7 L MCV 85.2 MCH 27.3 MCHC 32.1 RDW Std Deviation 43.6 RDW Coeff of Brea 13.9 Plt Count 205 MPV 9.1 Sodium 141 Potassium 3.5 Chloride 111 H Carbon Dioxide 24.0 Anion Gap 6 BUN 8 Creatinine 0.60 Estim Creat Clear Calc 104.30 Est GFR (MDRD) Af Amer 137 Est GFR (MDRD) Non-Af 113 BUN/Creatinine Ratio 13.3 Glucose 214 H Calcium 8.0 L Vancomycin Trough 20.4 H POC Glucose 06/16/19 06/15/19 06/15/19 06:55 21:56 16:30 POC Glucose 241 H 273 H 214 H Medical Necessity - Tobacco Use Smoking Status: Current every day smoker Tobacco Use: Cigarettes - 1/2 PPD. Assessment/Plan All Active Problems Osteomyelitis of toe of right foot (Acute) Infection of toe (Acute) Cellulitis of foot, right (Acute) 1. Acute sepsis secondary to right second distal toe ulcer with osteomyelitis and cellulitis- Wound culture shows strep agalactiae and staph epidermidis. IV vancomycin and IV Zosyn. Podiatry on consult. Follows with Dr. Acuña as outpatient. Bedside debridement performed 06/14/2018. MRI showed evidence of osteomyelitis second distal phalanx. Patient underwent partial right second toe amputation 06/15/[address] Acuña. Continue dressing changes per podiatry orders. Offloading right foot. Noninvasive vascular studies completed. MRSA PCR negative. PRN pain regimen. Blood cultures negative. ID consulted. 2. Type 2 diabetes mellitus with diabetic polyneuropathy-hemoglobin A1c 10.5%. Accu-Cheks ACHS with SSI. Continue home scheduled NovoLog and long-acting Levemir regimen. 3. Tobacco dependence- encourage cessation. 4. Hypertension-stable, continue home hydrochlorothiazide, lisinopril. 5. Hyperlipidemia-not on regimen. 6. Hypothyroidism-continue home Synthroid regimen. 7. Morbid obesity- encouraged diet and lifestyle modifications. Nutrition co nsult. 8. Fibromyalgia- on lyrica. 9. Anxiety/depression-continue duloxetine, trazodone. DVT prophylaxis-Lovenox subcu Discharge planning: SNF pending pre-CERT. This patient was seen by ANGELES Ram under the supervision of Dr. Pineda. <Gail Pineda - Last Filed: 06/16/19 16:41> - Physical Exam Vital Signs Temp Pulse Resp BP Pulse Ox 97.9 F 67 16 122/75 H 97 06/16/19 09:15 06/16/19 09:15 06/16/19 09:15 06/16/19 09:15 06/16/19 09:15 Oxygen Delivery Method Room Air Weight: 100.3 kg Body Mass Index (BMI) 36.8 Finger Stick Blood Glucose 496 Intake and Output for Last 24 Hours 06/14/19 06/15/19 06/16/19 23:59 23:59 23:59 Intake Total 4657.50 / 5057.50 4608.63 / 4908.63 1631 / 1631 Output Total 950 / 950 450 / 950 500 / 500 Balance 3707.50 / 4107.50 4158.63 / 3958.63 1131 / 1131 Microbiology Past 72 Hours 06/15/19 09:00 Gram Stain - Final Bone - Toe Wound Culture - Preliminary No growth-Final to follow 06/15/19 09:00 Gram Stain - Final Bone - Toe Wound Culture - Preliminary No growth-Final to follow 06/13/19 02:00 Gram Stain - Final Wound - Aerobic & Anaerobic Swabs Wound Culture - Final Streptococcus agalactiae (B) Staphylococcus epidermidis Anaerobic Culture - Preliminary Checking for anaerobes, further studies to follow. 06/12/19 09:47 Blood Culture - Preliminary Blood Culture (Wb) - Anticubital Left No growth in 48 hours. Laboratory Tests Past 24 Hrs 06/15/19 06/16/19 06/16/19 21:08 05:40 05:40 WBC 6.7 RBC 3.37 L Hgb 9.2 L Hct 28.7 L MCV 85.2 MCH 27.3 MCHC 32.1 RDW Std Deviation 43.6 RDW Coeff of Brea 13.9 Plt Count 205 MPV 9.1 Sodium 141 Potassium 3.5 Chloride 111 H Carbon Dioxide 24.0 Anion Gap 6 BUN 8 Creatinine 0.60 Estim Creat Clear Calc 104.30 Est GFR (MDRD) Af Amer 137 Est GFR (MDRD) Non-Af 113 BUN/Creatinine Ratio 13.3 Glucose 214 H Calcium 8.0 L Vancomycin Trough 20.4 H POC Glucose 06/16/19 06/15/19 06/15/19 06:55 21:56 16:30 POC Glucose 241 H 273 H 214 H Assessment/Plan This patient was seen in conjunction with Marcelle Lopez NP. I have independently interviewed and examined the patient and reviewed pertinent historical, laboratory, and other data. Please refer to her note for patient's presentation, findings, and recommendations. Patient was seen and examined. No acute events. Denies fever or chills or SOB. Vitals were reviewed -stable Physical Exam: Gen: Obese, appears comfortable, not pale, not jaundiced, alert oriented x3 CVS:HS I +II, regular, no murmurs RESP: Clinically clear to auscultation GI: BS present and normal, nontender, no palpable organs EXT: Right lower extremity, dressed up in ROHAN-bandages, no edema or erythema to the foot Labs reviewed ASSESSMENT: 1. Sepsis secondary to MRSE/ strept agalactaie/second toe ulcer osteomyelitis cellulitis, status post excision 2. Hypokalemia, resolved 3. Hypomagnesemia, replaced 4. Type II DM with diabetic polyneuropathy 5. Nicotine dependence 6. Hypertension 7. Hypothyroidism 8. Morbid obesity 9. Anxiety/depression/fibromyalgia Meds reviewed Plan: On Unasyn per ID recommendation Wound care per podiatry recommendation Discharge planning in the works Code Visit Inpatient E&M: 63321 Subs Hosp L2
--- NOTE | 2019-06-16 12:20 | PCM.PN.ID ---
Patient Problems: Active and Suspected Problems Osteomyelitis of toe of right foot (Acute) Infection of toe (Acute) Cellulitis of foot, right (Acute) Subjective: Feeling ok, no fever, no n/v/d - Physical Exam General: Alert, Cooperative, No apparent distress Lungs: Clear to auscultation, Normal air movement Cardiovascular: Regular rate, Regular Rhythm Abdomen: Soft, Non Tender, Non-Distended Skin: Ulcer/ Wound - toe with improved redness, sutures in place Vital Signs Temp Pulse Resp BP Pulse Ox 97.9 F 67 16 122/75 H 97 06/16/19 09:15 06/16/19 09:15 06/16/19 09:15 06/16/19 09:15 06/16/19 09:15 Oxygen Delivery Method Room Air Weight: 100.3 kg Body Mass Index (BMI) 36.8 Finger Stick Blood Glucose 496 Intake and Output for Last 24 Hours 06/14/19 06/15/19 06/16/19 23:59 23:59 23:59 Intake Total 4657.50 / 5057.50 4608.63 / 4908.63 1171 / 1171 Output Total 950 / 950 450 / 950 500 / 500 Balance 3707.50 / 4107.50 4158.63 / 3958.63 671 / 671 Microbiology Past 72 Hours 06/15/19 09:00 Gram Stain - Final Bone - Toe Wound Culture - Preliminary No growth-Final to follow 06/15/19 09:00 Gram Stain - Final Bone - Toe Wound Culture - Preliminary No growth-Final to follow 06/13/19 02:00 Gram Stain - Final Wound - Aerobic & Anaerobic Swabs Wound Culture - Final Streptococcus agalactiae (B) Staphylococcus epidermidis Anaerobic Culture - Preliminary Checking for anaerobes, further studies to follow. 06/12/19 09:47 Blood Culture - Preliminary Blood Culture (Wb) - Anticubital Left No growth in 48 hours. Laboratory Tests Past 24 Hrs 06/15/19 06/16/19 06/16/19 21:08 05:40 05:40 WBC 6.7 RBC 3.37 L Hgb 9.2 L Hct 28.7 L MCV 85.2 MCH 27.3 MCHC 32.1 RDW Std Deviation 43.6 RDW Coeff of Brea 13.9 Plt Count 205 MPV 9.1 Sodium 141 Potassium 3.5 Chloride 111 H Carbon Dioxide 24.0 Anion Gap 6 BUN 8 Creatinine 0.60 Estim Creat Clear Calc 104.30 Est GFR (MDRD) Af Amer 137 Est GFR (MDRD) Non-Af 113 BUN/Creatinine Ratio 13.3 Glucose 214 H Calcium 8.0 L Vancomycin Trough 20.4 H POC Glucose 06/16/19 06/15/19 06/15/19 06:55 21:56 16:30 POC Glucose 241 H 273 H 214 H Medical Necessity - Tobacco Use Smoking Status: Current every day smoker Tobacco Use: Cigarettes - 1/2 PPD. Route of nutrition/ use of supplements: [] Nutritional Intake: [] IV Site: [] Carrillo Catheter: [] - Assessment/Plan Antibiotics: [] Assessment/Plan: [] Active and Suspected Problems Osteomyelitis of toe of right foot (Acute) Infection of toe (Acute) Cellulitis of foot, right (Acute) R 2nd toe osteo - now s/p partial amputation by Dr. Acuña 06/14. Wound cx with MRSE and GBS. Recent cx with morganella and MRSE. Narrow abx to vanc/unasyn. May be able to complete short course of po abx with levaquin after discharge as long as surgical margins are clear. Will follow, d/w case management coordinator and Dr. Acuña
--- NOTE | 2019-06-16 13:15 | NURSING ---
pt had late breakfast- asked pt to let this RN know before eats lunch
--- NOTE | 2019-06-16 14:06 | CASEMGMT ---
Addendum entered by Chica Torres 06/17/19 16:12: STEFFI spoke with Maritza and Tarun at [facility] regarding pt's pre-cert. Maritza and Tarun state that they have called [facility] and [facility] told them both that they have up to 10 days to complete pre-cert. STEFFI informed Maritza and Tarun that this worker is leaving for the day and to call [facility] number if pre-cert is obtained. SW provided [facility] number. SW placed green sheet and transportation form on pt's chart in the even pre-cert is obtained. STEFFI completed convalescent 7000 in [facility] and placed on pt's chart. Addendum entered by Chica Torres 06/17/19 13:42: STEFFI spoke with Maritza at [facility] and informed Maritza that pt is medically ready for discharge once pre-cert is obtained. Addendum entered by Chica Torres 06/17/19 12:03: STEFFI updated pt that this worker is still waiting for pre-cert for pt to go to [facility]. Pt states she is ready to discharge. SW informed pt that she can't discharge to SNF until pre-cert is obtained. Pt states understanding. Original Note: Social Work Note STEFFI faxed updated clinicals to [facility]. Plan: [facility] pending pre-cert Chica Torres MSW, [employer] SERVICE EDUCATION TEACHER
[2019-06-16 15:30] VITALS: BP 121/79; PULSE 65; RESP 16; TEMP 36.6; O2SAT 97
[2019-06-16 17:01] LABS: Bedside Glucose 274 mg/dL (70-110)
[2019-06-16 20:20] VITALS: BP 147/89; PULSE 72; RESP 18; TEMP 37.1; O2SAT 99
[2019-06-16] MEDS: traZODone 50 MG Tablet PO (20:23)
[2019-06-16] MEDS: hydrOXYzine PAM 25 MG Capsule 50 MG PO (20:23)
[2019-06-16] MEDS: DULoxetine Hcl 60 MG Capsule PO (20:23)
[2019-06-16] MEDS: 0.9% NaCl Peripheral Flush Adult/Peds IV (20:40)
[2019-06-16 21:00] VITALS: PULSE 72; RESP 18; O2SAT 99
[2019-06-16 22:26] LABS: Bedside Glucose 286 mg/dL (70-110)
[2019-06-17 02:38] VITALS: BP 98/53; PULSE 72; RESP 16; TEMP 36.4; O2SAT 94
[2019-06-17] MEDS: HYDROcodone Bitartrate/Apap 5/325 Tablet PO (02:40)
[2019-06-17] MEDS: Levothyroxine 112 MCG Tablet PO (06:44)
[2019-06-17] MEDS: Insulin Lispro 100 UNIT/ML INSULN.PEN SC ×4 (06:50→21:22)
[2019-06-17 06:56] LABS: Bedside Glucose 169 mg/dL (70-110)
[2019-06-17] MEDS: DULoxetine Hcl 30 MG Capsule PO (09:10)
[2019-06-17] MEDS: Lisinopril 20 MG Tablet PO (09:10)
[2019-06-17] MEDS: Enoxaparin 40 MG/0.4 ML Syringe SC (09:10)
[2019-06-17] MEDS: Multivitamins,Therapeutic Tablet 1 TABLET PO (09:10)
[2019-06-17] MEDS: Famotidine 20 MG Tablet PO (09:10)
[2019-06-17] MEDS: Psyllium 1 PACKET PO (09:11)
[2019-06-17] MEDS: Pregabalin 50 MG Capsule 100 MG PO ×2 (09:14→21:20)
[2019-06-17 09:47] VITALS: BP 146/76; PULSE 77; RESP 16; TEMP 36.3; O2SAT 97
--- NOTE | 2019-06-17 10:30 | PCM.PN.ID ---
Patient Problems: Active and Suspected Problems Osteomyelitis of toe of right foot (Acute) Infection of toe (Acute) Cellulitis of foot, right (Acute) Subjective: Feeling ok, wants to be discharged, no fever. - Physical Exam General: Alert, Cooperative, No apparent distress Lungs: Clear to auscultation, Normal air movement Cardiovascular: Regular rate, Regular Rhythm Abdomen: Soft, Non Tender, Non-Distended Skin: Ulcer/ Wound - foot wrapped Vital Signs Temp Pulse Resp BP Pulse Ox 97.4 F L 77 16 146/76 H 97 06/17/19 09:47 06/17/19 09:47 06/17/19 09:47 06/17/19 09:47 06/17/19 09:47 Oxygen Delivery Method Room Air Weight: 100.3 kg Body Mass Index (BMI) 36.8 Finger Stick Blood Glucose 496 Intake and Output for Last 24 Hours 06/15/19 06/16/19 06/17/19 23:59 23:59 23:59 Intake Total 4608.63 / 4908.63 3043 / 3543 1070.50 / 1070.50 Output Total 450 / 950 500 / 500 Balance 4158.63 / 3958.63 2543 / 3043 1070.50 / 1070.50 Microbiology Past 72 Hours 06/13/19 02:00 Gram Stain - Final Wound - Aerobic & Anaerobic Swabs Wound Culture - Final Streptococcus agalactiae (B) Staphylococcus epidermidis Anaerobic Culture - Final Anaerobic cocci 06/15/19 09:00 Gram Stain - Final Bone - Toe Wound Culture - Preliminary Coag Negative Staph 06/15/19 09:00 Gram Stain - Final Bone - Toe Wound Culture - Preliminary No growth-Final to follow Anaerobic Culture - Preliminary No growth in 48 hours. 06/12/19 09:47 Blood Culture - Preliminary Blood Culture (Wb) - Anticubital Left No growth in 48 hours. POC Glucose 06/17/19 06/16/19 06/16/19 06:50 21:00 15:53 POC Glucose 169 H 286 H 274 H Medical Necessity - Tobacco Use Smoking Status: Current every day smoker Tobacco Use: Cigarettes - 1/2 PPD. Route of nutrition/ use of supplements: [] Nutritional Intake: [] IV Site: [] Carrillo Catheter: [] - Assessment/Plan Antibiotics: [] Assessment/Plan: [] Active and Suspected Problems Osteomyelitis of toe of right foot (Acute) Infection of toe (Acute) Cellulitis of foot, right (Acute) R 2nd toe osteo - now s/p partial amputation by Dr. Acuña 06/14. Wound cx with MRSE and GBS and anaerobes. Recent cx with morganella and MRSE. Narrowed abx to vanc/unasyn. Ok to complete short course of po abx with 4 days more oflevaquin/flagyl after discharge as long as surgical margins are clear. Will follow, d/w family service caseworker
[2019-06-17 11:15] LABS: Bedside Glucose 181 mg/dL (70-110)
[2019-06-17 11:19] VITALS: BP 119/67; PULSE 65; RESP 16; TEMP 36.4; O2SAT 97
--- NOTE | 2019-06-17 11:57 | PCM.PROGNOTE ---
Patient Problems: Active and Suspected Problems Osteomyelitis of toe of right foot (Acute) Infection of toe (Acute) Cellulitis of foot, right (Acute) Subjective: This 48-year-old female patient was seen resting comfortably in chair by her bed with her feet in the dependent position upon my arrival today. Patient is postop day #2 status post partial right second toe amputation. Patient reports no acute events overnight. Patient states that she feels well today and has no complaints currently. Patient relates her pain is currently well controlled. Patient currently denies any feelings of nausea, vomiting, fever, chills. - Physical Exam General: Alert, Oriented x3, Cooperative, No apparent distress Extremities: No cyanosis, Capillary Refill Less than 3 Seconds - To distal stumps of right toes 1 and 2 into the distal digits 3-5, No Calf Tenderness - Negative Dominic and Sosa signs bilateral, Edema - Continued improving edema, Peripheral Pulses Normal - DP and PT pulses palpable bilateral Skin: - - Surgical site is well coapted with sutures intact to the remaining proximal aspect of the right second toe following her partial toe amputation yesterday. There is no purulence, no malodor, no streaking cellulitis, no significant increase in warmth appreciated today. No signs of local infection appreciated. Musculoskeletal: No Tenderness to Palpation of Joints or Extremities Neurological: - - Lack of normal epicritic sensation consistent with patient's diabetic status Psych/Mental Status: Normal Affect, Appropriate Vital Signs Temp Pulse Resp BP Pulse Ox 97.5 F L 65 16 119/67 97 06/17/19 11:19 06/17/19 11:19 06/17/19 11:19 06/17/19 11:19 06/17/19 11:19 Oxygen Delivery Method Room Air Weight: 100.3 kg Body Mass Index (BMI) 36.8 Finger Stick Blood Glucose 496 Intake and Output for Last 24 Hours 06/15/19 06/16/19 06/17/19 23:59 23:59 23:59 Intake Total 4608.63 / 4908.63 3043 / 3543 1420.50 / 1420.50 Output Total 450 / 950 500 / 500 Balance 4158.63 / 3958.63 2543 / 3043 1420.50 / 1420.50 Microbiology Past 72 Hours 06/13/19 02:00 Gram Stain - Final Wound - Aerobic & Anaerobic Swabs Wound Culture - Final Streptococcus agalactiae (B) Staphylococcus epidermidis Anaerobic Culture - Final Anaerobic cocci 06/15/19 09:00 Gram Stain - Final Bone - Toe Wound Culture - Preliminary Coag Negative Staph 06/15/19 09:00 Gram Stain - Final Bone - Toe Wound Culture - Preliminary No growth-Final to follow Anaerobic Culture - Preliminary No growth in 48 hours. 06/12/19 09:47 Blood Culture - Preliminary Blood Culture (Wb) - Anticubital Left No growth in 48 hours. POC Glucose 06/17/19 06/17/19 06/16/19 11:06 06:50 21:00 POC Glucose 181 H 169 H 286 H 06/16/19 15:53 POC Glucose 274 H Medical Necessity - Tobacco Use Smoking Status: Current every day smoker Tobacco Use: Cigarettes - 1/2 PPD. Assessment/Plan All Active Problems Osteomyelitis of toe of right foot (Acute) Infection of toe (Acute) Cellulitis of foot, right (Acute) Postop day #2 status post right partial second toe amputation DM with neuropathy Resolving cellulitis Other comorbidities This patient was carefully examined and evaluated today again. She was walking across her room without surgical shoe or pressure to her heel as she had been instructed to do. Patient is postop day #2 status post right partial second toe amputation. Vital signs are currently stable. Wound cultures taken before the procedure show growth of Streptococcus agalactiae as well as Staphylococcus epidermidis. Bone and soft tissue cultures taken during procedure show rare white blood cells as well as rare growth of coag negative staph. Preliminary results from the clearance fragment currently show no white blood cells and no organisms seen currently. No strikethrough appreciated outer dressing. ID on case. The surgical site was carefully examined and evaluated in detail again today. Surgical site still well coapted with sutures intact. No significant signs of erythema or edema to surgical site. No purulence or any other signs of infection appreciated today. The site was then carefully cleansed with saline, and then dressed with Betadine soaked Adaptic, Betadine gauze, regular 4 x 4's, ABDs, Kerlix and an Matthew bandage. Patient is to continue to leave the dressing clean dry and intact. I again stressed the importance of compliance with the patient and following all the orders that have been placed. Patient to continue to keep right lower extremity elevated as much as possible to help with postop swelling and pain. Patient is to keep her dressing from today clean dry and intact until she follows up with me in office. Upon discharge, the patient is to follow-up with me at [facility] in [place] early next week either Friday or Friday. Patient is aware of this. She knows the office number and where office is located as she has been there before. Continue medical management DVT prophylaxis appreciated per primary team. Podiatry will continue to follow this patient while in house.
[2019-06-17 14:37] VITALS: BP 125/76; PULSE 65; RESP 16; TEMP 36.4; O2SAT 99
[2019-06-17] MEDS: 0.9% NaCl Peripheral Flush Adult/Peds IV ×2 (16:26→21:20)
[2019-06-17 16:36] LABS: Bedside Glucose 224 mg/dL (70-110)
--- NOTE | 2019-06-17 18:08 | PCM.PN.HOSP ---
Patient Problems: Active and Suspected Problems Osteomyelitis of toe of right foot (Acute) Infection of toe (Acute) Cellulitis of foot, right (Acute) Subjective: Patient was seen and examined. No new complaints. No acute events. Waiting on discharge to [place] Objective: Physical Exam General: Alert, Oriented x3, Cooperative HEENT: Atraumatic, PERRLA, EOMI, Normocephalic Neck: Supple, No JVD, Negative Carotid Bruits Lungs: Clear to auscultation, Normal air movement Cardiovascular: Regular rate, Regular Rhythm, Normal S1, Normal S2, No murmurs Abdomen: Bowel Sounds Present, Soft, Non Tender, Non-Distended Extremities: No clubbing, No cyanosis, No edema Skin: No rashes, No breakdown, - - Right foot postop dressing clean dry and intact. Musculoskeletal: No Tenderness to Palpation of Joints or Extremities Neurological: Cranial nerves II-XII grossly intact, Neuro grossly intact Psych/Mental Status: Flat Affect Vitals/I&O's: Vital Signs Temp Pulse Resp BP Pulse Ox 97.6 F L 65 16 125/76 H 99 06/17/19 14:37 06/17/19 14:37 06/17/19 14:37 06/17/19 14:37 06/17/19 14:37 Oxygen Delivery Method Room Air Weight: 100.3 kg Body Mass Index (BMI) 36.8 Finger Stick Blood Glucose 496 Intake and Output for Last 24 Hours 06/15/19 06/16/19 06/17/19 23:59 23:59 23:59 Intake Total 4608.63 / 4908.63 3043 / 3543 2657.25 / 2657.25 Output Total 450 / 950 500 / 500 Balance 4158.63 / 3958.63 2543 / 3043 2657.25 / 2657.25 Microbiology Past 72 Hours 06/12/19 09:47 Blood Culture (Wb) - Anticubital Left Blood Culture - Final No growth in 5 days. 06/13/19 02:00 Wound - Aerobic & Anaerobic Swabs Gram Stain - Final 06/13/19 02:00 Wound - Aerobic & Anaerobic Swabs Wound Culture - Final Streptococcus agalactiae (B) Staphylococcus epidermidis 06/13/19 02:00 Wound - Aerobic & Anaerobic Swabs Anaerobic Culture - Final Anaerobic cocci 06/15/19 09:00 Bone - Toe Gram Stain - Final 06/15/19 09:00 Bone - Toe Wound Culture - Preliminary Coag Negative Staph 06/15/19 09:00 Bone - Toe Gram Stain - Final 06/15/19 09:00 Bone - Toe Wound Culture - Preliminary No growth-Final to follow 06/15/19 09:00 Bone - Toe Anaerobic Culture - Preliminary No growth in 48 hours. Laboratory Results 06/16/19 21:00: POC Glucose 286 H 06/17/19 06:50: POC Glucose 169 H 06/17/19 11:06: POC Glucose 181 H 06/17/19 16:19: POC Glucose 224 H Current Medications Hydrocodone Bitart/Acetaminophen ([place] 5mg-325mg) 2 tablet PO Q6H PRN PRN PRN Reason: SEVERE PAIN (6-07/08) Last Admin: 06/17/19 02:40 Dose: 2 tablet Documented by: Dextrose (D50w Syringe) 0 gm IV X1 PRN; Protocol PRN Reason: Hypoglycemia Duloxetine HCl (Cymbalta) 60 mg PO QHS [facility] Last Admin: 06/16/19 20:23 Dose: 60 mg Documented by: Duloxetine HCl (Cymbalta) 30 mg PO DAILY [facility] Last Admin: 06/17/19 09:10 Dose: 30 mg Documented by: Enoxaparin Sodium (Lovenox) 40 mg SC DAILY@1000 [facility] Last Admin: 06/17/19 09:10 Dose: 40 mg Documented by: Famotidine (Pepcid) 20 mg PO DAILY [facility] Last Admin: 06/17/19 09:10 Dose: 20 mg Documented by: Glucagon () 1 mg IM .X1 PRN PRN Reason: Hypoglycemia Hydralazine HCl (Apresoline Iv) 10 mg IV Q4H PRN PRN PRN Reason: SBP > 160 Hydroxyzine Pamoate (Vistaril Pamoate Capsule) 50 mg PO QHS [facility] Last Admin: 06/16/19 20:23 Dose: 50 mg Documented by: Vancomycin IV Pharmacy to Dose (1 ea/ Sodium Chloride) 500 mls @ 250 mls/hr IV X1 PRN; Protocol PRN Reason: Rx to Dose Sodium Chloride () 250 mls @ 15 mls/hr IV .[id number] PRN PRN Reason: SALINE FLUSH Last Infusion: 06/17/19 16:28 Dose: 0 mls/hr Documented by: Vancomycin HCl 2,000 mg/ (Sodium Chloride) 540 mls @ 250 mls/hr IV Q12H [facility] Last Infusion: 06/17/19 12:31 Dose: Infused Documented by: Ampicillin Sodium/Sulbactam Sodium 3,000 mg/ Sodium Chloride 100 mls @ 150 mls/hr IV Q8 [facility] Last Infusion: 06/17/19 15:15 Dose: Infused Documented by: Insulin Glargine (Lantus ([facility])) 45 units SC QHS [facility] Last Admin: 06/16/19 21:12 Dose: 45 u Documented by: Insulin Human Lispro (Humalog Kwikpen ([facility])) 0 unit SC ACHS [facility]; Protocol Last Admin: 06/17/19 16:21 Dose: 4 unit Documented by: Levothyroxine Sodium (Synthroid) 112 mcg PO DAILY@0600 [facility] Last Admin: 06/17/19 06:44 Dose: 112 mcg Documented by: Lisinopril (Zestril) 20 mg PO DAILY [facility] Last Admin: 06/17/19 09:10 Dose: 20 mg Documented by: Magnesium Hydroxide (Milk Of Magnesia) 30 ml PO DAILY PRN PRN PRN Reason: Constipation Meclizine HCl (Antivert) 25 mg PO TID PRN PRN Reason: Vertigo [facility] Last Admin: 06/17/19 09:10 Dose: 1 tablet Documented by: Nicotine (Nicoderm Cq ([facility])) 14 mg TRANSDERM. DAILY [facility] Last Admin: 06/17/19 09:16 Dose: 14 mg Documented by: Nicotine Polacrilex ([place] Nicotine ([facility])) 2 mg PO Q2H PRN PRN PRN Reason: smoking Ondansetron HCl (Zofran) 4 mg IV Q8H PRN PRN PRN Reason: NAUSEA/VOMITING Pregabalin (Lyrica) 100 mg PO BID [facility] Last Admin: 06/17/19 09:14 Dose: 100 mg Documented by: Prochlorperazine Edisylate (Compazine Iv) 5 mg IV Q4H PRN PRN PRN Reason: Breakthrough nausea/vomiting Psyllium Hydrophilic Mucilloid (Metamucil) 1 packet PO DAILY [facility] Last Admin: 06/17/19 09:11 Dose: 1 packet Documented by: Sodium Chloride () 10 - 40 ml IV UD PRN PRN Reason: SALINE FLUSH Last Admin: 06/17/19 16:26 Dose: 10 ml Documented by: Sodium Chloride () 10 - 40 ml IV UD PRN PRN Reason: Midline Flush Trazodone HCl (Desyrel) 50 mg PO QHS [facility] Last Admin: 06/16/19 20:23 Dose: 50 mg Documented by: Medical Necessity - Tobacco Use Smoking Status: Current every day smoker Tobacco Use: Cigarettes - 1/2 PPD. Assessment/Plan All Active Problems Osteomyelitis of toe of right foot (Acute) Infection of toe (Acute) Cellulitis of foot, right (Acute) 1. Sepsis secondary to MRSE/ strept agalactaie/anerobes second toe ulcer osteomyelitis cellulitis, status post partial amputation on 05/30 6 Currently on Vancomycin and Unasyn, ID and podiatry following. ID plans on oral antibiotics after discharge. 2. Hypokalemia, resolved 3. Hypomagnesemia, replaced 4. Type II DM with diabetic polyneuropathy, sugars are fairly controlled, continue on current insulin regimen and blood glucose checks 5. Nicotine dependence, on nicotine replacement 6. Hypertension, controlled, continue lisinopril 7. Hypothyroidism, on levothyroxine 8. Anxiety/depression/fibromyalgia, continue home regimen 9. DVT PPx- Lovenox SC Code Visit Inpatient E&M: 87478 Subs Hosp L2
[2019-06-17 20:58] VITALS: BP 161/96; PULSE 83; RESP 16; TEMP 36.7; O2SAT 96
[2019-06-17] MEDS: hydrOXYzine PAM 25 MG Capsule 50 MG PO (21:20)
[2019-06-17] MEDS: traZODone 50 MG Tablet PO (21:20)
[2019-06-17] MEDS: DULoxetine Hcl 60 MG Capsule PO (21:25)
[2019-06-17 21:41] LABS: Bedside Glucose 216 mg/dL (70-110)
[2019-06-18] MEDS: HYDROcodone Bitartrate/Apap 5/325 Tablet PO (00:15)
[2019-06-18 02:47] VITALS: BP 112/50; PULSE 76; RESP 16; TEMP 36.5; O2SAT 93
[2019-06-18 06:10] LABS: Absolute Lymphocyte Count 2.23 X10^3/uL (0.83-4.51); Absolute Neutrophil Count 5.9 X10^3/uL (2.0-7.7); Basophil# 0.04 X10^3/uL; Basophil% 0.4 % (0-1); Eosinophil# 0.23 X10^3/uL; Eosinophils% 2.5 % (0-5); Hematocrit 32.4 % (37-47); Hemoglobin 10.6 g/dL (12.0-15.0); Lymphocyte # 2.23 X10^3/ul (4.0); Lymphocyte % 24.6 % (19-41); Mean Corp Hgb Conc 32.7 g/dL (32-36); Mean Corpuscular Hgb 27.5 pg (27.0-32.0); Mean Corpuscular Volume 84.2 fL (81-99); Monocyte# 0.62 X10^3/uL; Monocyte% 6.8 % (0-10); NRBC Flagged by Analyzer 0 % (0-5); Neutrophil # 5.87 X10^3/uL (2.7-7.7); Neutrophil % 64.9 % (47-70); Platelet Count 291 K/mm3 (150-450); RBC Distribution Width CV 13.7 % (11.6-14.6); RBC Distribution Width SD 41.9 fl (35.1-43.9); Red Blood Count 3.85 M/mm3 (4.2-5.4); White Blood Count 9.1 K/mm3 (4.4-11.0)
[2019-06-18 06:23] LABS: Anion Gap 5 (5-15); BUN 13 mg/dL (7-18); BUN/Creat Ratio 22.1 RATIO (10-20); Calcium,Total 8.7 mg/dL (8.5-10.1); Chloride 111 mmol/L (98-107); Creatinine, Serum 0.59 mg/dL (0.55-1.02); EST Glomerular Filtration Rate 116 mL/min (>60); Est Glom Filt Rate - Afr Amer 141 mL/min (>60); Estimated Creatinine Clearance 106.07 ml/min; Glucose 114 mg/dL (74-106); Magnesium 1.8 mg/dL (1.6-2.6); Potassium 3.6 mmol/L (3.5-5.1); Sodium Level 142 mmol/L (136-145)
[2019-06-18] MEDS: 0.9% NaCl Peripheral Flush Adult/Peds IV (06:35)
[2019-06-18] MEDS: Levothyroxine 112 MCG Tablet PO (06:35)
[2019-06-18 06:51] LABS: Bedside Glucose 95 mg/dL (70-110)
[2019-06-18] MEDS: Famotidine 20 MG Tablet PO (09:02)
[2019-06-18] MEDS: Psyllium 1 PACKET PO (09:02)
[2019-06-18] MEDS: Lisinopril 20 MG Tablet PO (09:02)
[2019-06-18] MEDS: Enoxaparin 40 MG/0.4 ML Syringe SC (09:02)
[2019-06-18] MEDS: DULoxetine Hcl 30 MG Capsule PO (09:02)
[2019-06-18] MEDS: Multivitamins,Therapeutic Tablet 1 TABLET PO (09:02)
[2019-06-18] MEDS: Pregabalin 50 MG Capsule 100 MG PO (09:05)
[2019-06-18 09:22] VITALS: BP 133/69; PULSE 68; RESP 16; TEMP 36.4; O2SAT 96
--- NOTE | 2019-06-18 10:37 | PCM.TXEXTCAR ---
- Diet 06/15/19 08:55 Diet: Calorie Controlled Is pt able to select menu?: Yes How many daily calories?: 1800 calorie - Routine Orders/Code Status Routine Lab Work: CBC - within 3 days, BMP - within 3 days Code Status: Full Code - Wound(s) Right Second toe proximal Wound Type: s/p I & D and partial second toe amputation Dressing Change: Keep dressing intact until patient see Dr. Acuña on Friday06/21/19 Right second toe Distal Wound Type: Surgical Incision - Therapies Weight Bearing: Non weight bearing - on right foot Extremity Affected:: Right Lower Physical Therapy: Eval and Treat Occupational Therapy: Eval and Treat - Allergies/Procedures Done in Hospital Allergies/Adverse Reactions: Allergies clindamycin Allergy (Verified 05/18/19 22:30) Hives erythromycin base [From E-Mycin] Allergy (Verified 05/18/19 22:30) Hives Procedures: - - s/p right partial 2nd toe amputation - Type of Care/Length of Stay Estimated LOS: Convalescent Care Less Than 30 days Type of Care Needed: Skilled Rehab Potential: Good Prognosis: Good - Additional Orders/Day of Discharge Day of Discharge: 06/18/19 - Dietary and Speech Recommendations Dietitian Recommendations/Changes: Rec diet change to 1600 calorie; cardiac; high fiber diet. Rec Rip 1 packet BID for wound healing--order from pharmacy. - Follow Up Care Primary Care Physician: Shirley Garcia MD [Primary Care Provider] - Mamadou Acuña DPM [STAFF PHYSICIAN] - Please Follow Up With: Mamadou Acuña DPM When: on 06/21/19
--- NOTE | 2019-06-18 10:46 | PCM.DC.SUM ---
Discharge Date and Diagnosis - Problem List Patient Problems: Active and Suspected Problems Osteomyelitis of toe of right foot (Acute) Infection of toe (Acute) Cellulitis of foot, right (Acute) Date of Admission: 06/12/19 Date of Discharge: 06/18/19 - Primary Discharge Diagnosis Active and Suspected Problems Sepsis secondary to MRSA/strep agalactiae/anaerobes Acute osteomyelitis of 2nd toe of right foot (Acute) s/p second toe partial amputation Cellulitis of the foot Hypokalemia Hypomagnesemia Nicotine dependence - Secondary Discharge Diagnosis Chronic Problems Chronic ulcer of right foot with fat layer exposed (Chronic) Type 2 diabetes mellitus with diabetic polyneuropathy (Chronic) Hammer toe of right foot (Chronic) Obesity (BMI 30-39.9) (Chronic) Vertigo (Chronic) Hyperlipidemia (Chronic) Fibromyalgia (Chronic) Depression with anxiety (Chronic) Hospital Course and Treatment Imaging Results: Clinical Impression(s) from Imaging Studies Foot X-Ray 06/12/19 10:00 IMPRESSION: Diffuse soft tissue swelling of the 2nd digit with possible soft tissue swelling extending into the soft tissues distal to the 1st digit amputation. No deep soft tissue gas. No radiographic features of bone erosion to suggest ostial myelitis. Electronically Signed: Sinan Dowd MD at 11:27 EDT Tel , Service support , Lower Extremity MRI 06/14/19 12:20 IMPRESSION: Amputation of the phalanges of the first toe. Marrow edema of the first metatarsal and second metatarsal head with osteomyelitis. Marrow edema of the proximal second and third metatarsals and cuneiform bones with contiguous spread osteomyelitis versus Charcot arthropathy. Electronically Signed: Irineo Tinajero MD at 16:51 EDT , Service support , ADDENDUM: 06/14/19 1724 Foot X-Ray 06/15/19 08:58 IMPRESSION: Status post amputation of the great toe as well as the middle and distal phalanges of the second toe. Postoperative soft tissue changes. Electronically Signed: Jaydon Villanueva, at 13:12 EDT , Service support , [place] [facility] Operations: - - Status post right partial second toe amputation on 06/14/19 Summary of Care Provided: The patient is a 48 year old F with past medical history of type II DM complicated by diabetic polyneuropathy, hypertension, hypothyroidism, history of right first toe amputation who comes in with 3-day history of redness and drainage from ulcer in the right second toe. Patient is homeless and was following with Dr. Acuña in the wound clinic. She initially underwent bedside I&D on 06/13/19. An MRI of the right foot was suspicious for osteomyelitis of the second distal phalanx. She underwent right second toe partial amputation on 06/14/19. Wound cultures from earlier on grew MRSE and GBS. Infectious disease was consulted. He was maintained on IV vancomycin, Levaquin and Zosyn initially. Later transitioned on IV vancomycin and Zosyn. Preliminary results on bone biopsy shows no growth. Patient was discharged on 4 days of Levaquin and metronidazole. She will follow up with Dr. Acuña in the outpatient on 06/21/19. She is non-weight bearing on the right foot. She is to keep the dressing intact until she sees Dr. Acuña in the outpatient Patient Problems: Active and Suspected Problems Osteomyelitis of toe of right foot (Acute) Infection of toe (Acute) Cellulitis of foot, right (Acute) Subjective: On the day of discharge, patient was seen and examined. She denied any new complaints. Her pain is controlled. Objective: Physical Exam General: Alert, Oriented x3, Cooperative HEENT: Atraumatic, PERRLA, EOMI, Normocephalic Neck: Supple, No JVD, Negative Carotid Bruits Lungs: Clear to auscultation, Normal air movement Cardiovascular: Regular rate, Regular Rhythm, Normal S1, Normal S2, No murmurs Abdomen: Bowel Sounds Present, Soft, Non Tender, Non-Distended Extremities: No clubbing, No cyanosis, No edema Skin: No rashes, No breakdown, - - Right foot postop dressing clean dry and intact. Musculoskeletal: No Tenderness to Palpation of Joints or Extremities Neurological: Cranial nerves II-XII grossly intact, Neuro grossly intact Psych/Mental Status: Flat Affect - Physical Exam Vital Signs Temp Pulse Resp BP Pulse Ox 97.5 F L 68 16 133/69 H 96 06/18/19 09:22 06/18/19 09:22 06/18/19 09:22 06/18/19 09:22 06/18/19 09:22 Oxygen Delivery Method Room Air Weight: 100.3 kg Body Mass Index (BMI) 36.8 Finger Stick Blood Glucose 496 Intake and Output for Last 24 Hours 06/16/19 06/17/19 06/18/19 23:59 23:59 23:59 Intake Total 3043 / 3543 2763.00 / 2763.00 1453.00 / 1453.00 Output Total 500 / 500 Balance 2543 / 3043 2763.00 / 2763.00 1453.00 / 1453.00 Microbiology Past 72 Hours 06/15/19 09:00 Gram Stain - Final Bone - Toe Wound Culture - Final No growth aerobically. Anaerobic Culture - Preliminary No growth in 48 hours. 06/15/19 09:00 Gram Stain - Final Bone - Toe Wound Culture - Final Staphylococcus epidermidis 06/12/19 09:47 Blood Culture - Final Blood Culture (Wb) - Anticubital Left No growth in 5 days. 06/13/19 02:00 Gram Stain - Final Wound - Aerobic & Anaerobic Swabs Wound Culture - Final Streptococcus agalactiae (B) Staphylococcus epidermidis Anaerobic Culture - Final Anaerobic cocci Laboratory Tests Past 24 Hrs 06/18/19 06/18/19 05:31 05:31 WBC 9.1 RBC 3.85 L Hgb 10.6 L Hct 32.4 L MCV 84.2 MCH 27.5 MCHC 32.7 RDW Std Deviation 41.9 RDW Coeff of Brea 13.7 Plt Count 291 MPV 9.0 Immature Gran % (Auto) 0.800 Neut % (Auto) 64.9 Lymph % (Auto) 24.6 [place] % (Auto) 6.8 Eos % (Auto) 2.5 Baso % (Auto) 0.4 Absolute Neuts (auto) 5.9 Absolute Lymphs (auto) 2.23 Nucleated RBC % 0 Sodium 142 Potassium 3.6 Chloride 111 H Carbon Dioxide 26.0 Anion Gap 5 BUN 13 Creatinine 0.59 Estim Creat Clear Calc 106.07 Est GFR (MDRD) Af Amer 141 Est GFR (MDRD) Non-Af 116 BUN/Creatinine Ratio 22.1 H Glucose 114 H Calcium 8.7 Magnesium 1.8 POC Glucose 09/20/19 09/19/19 09/19/19 06:45 21:18 16:19 POC Glucose 95 216 H 224 H 06/17/19 11:06 POC Glucose 181 H Discharge Diet: Low fat/ Low Cholesterol, 2000 mg Sodium Diet, Carb Control Diet Discharge Activity: Return to Normal Activity Home Medications: Medications to take at Discharge Duloxetine Hcl [Cymbalta] 60 mg PO QHS 10/30/13 Insulin Detemir [Levemir FlexPen] 45 units SC QHS #0 10/30/13 Multivitamins,Therapeutic [Multivitamin] 1 tablet PO DAILY 06/13/14 Fluticasone 44 Mcg [Flovent 44 Mcg] 2 puff INHALATION BID PRN 10/17/17 Levothyroxine [Synthroid] 112 mcg PO DAILY 10/17/17 Meclizine HCl 25 mg PO TID PRN 10/17/17 Famotidine [Pepcid] 20 mg PO DAILY 05/18/19 Hydroxyzine Pamoate [Vistaril] 50 mg PO QHS 05/18/19 Lisinopril [Zestril] 20 mg PO DAILY 05/18/19 Pregabalin [Lyrica] 100 mg PO BID 06/12/19 traZODone [Desyrel] 50 mg PO QHS 06/12/19 Duloxetine Hcl [Cymbalta] 30 mg PO DAILY 06/13/19 Metronidazole [Flagyl] 500 mg PO TID #12 tab 06/17/19 levoFLOXacin tablet [Levaquin tablet] 500 mg PO DAILY 4 Days #4 tab 06/17/19 Hydrocodone Bitart/Apap 5-325 [[place] 5/325] 1 tab PO Q6H PRN PRN 5 Days #20 tab 06/18/19 Insulin Lispro [Humalog KwikPen] See Protocol SUBCUT ACHS insuln.pen 06/18/19 Nicotine Polacrilex [Nicotine Gum] 2 mg PO Q2H PRN PRN gum 06/18/19 Nicotine [Nicoderm] 14 mg TRANSDERM. DAILY patch 06/18/19 Following Prescrptions Were Given to Patient: Metronidazole [Flagyl] 500 mg PO TID #12 tab Transmission Status: Received by [facility]/pharmacy #[id number] levoFLOXacin tablet [Levaquin tablet] 500 mg PO DAILY 4 Days #4 tab Transmission Status: Received by [facility]pharmacy #[id number] Hydrocodone Bitart/Apap 5-325 [[place] 5/325] 1 tab PO Q6H PRN PRN 5 Days #20 tab PRN Reason: Severe Pain (-07/08) Prescription Printed Primary Care Physician: Shirley Garcia MD [Primary Care Provider] - Mamadou Acuña DPM [STAFF PHYSICIAN] - Please Follow Up With: Mamadou Acuña DPM When: on 06/21/19 Patient Instructions: Cellulitis Disposition: Residential facility Minutes spent on discharge:: 50 Patient Condition:: Stable Medical Necessity - Tobacco Use Smoking Status: Current every day smoker Tobacco Use: Cigarettes - 1/2 PPD. Meaningful Use Info Meaningful Use Diagnoses (Choose all that apply): None applicable Code Visit Inpatient E&M: 40709 Disch Hosp
[2019-06-18] MEDS: Insulin Lispro 100 UNIT/ML INSULN.PEN SC (10:56)
--- NOTE | 2019-06-18 11:09 | PCM.PN.ID ---
Patient Problems: Active and Suspected Problems Osteomyelitis of toe of right foot (Acute) Infection of toe (Acute) Cellulitis of foot, right (Acute) Subjective: Feeling ok, d/c planned, no fever - Physical Exam General: Alert, Cooperative, No apparent distress Lungs: Clear to auscultation, Normal air movement Cardiovascular: Regular rate, Regular Rhythm Abdomen: Soft, Non Tender, Non-Distended Skin: Ulcer/ Wound - foot wrapped Vital Signs Temp Pulse Resp BP Pulse Ox 97.5 F L 68 16 133/69 H 96 06/18/19 09:22 06/18/19 09:22 06/18/19 09:22 06/18/19 09:22 06/18/19 09:22 Oxygen Delivery Method Room Air Weight: 100.3 kg Body Mass Index (BMI) 36.8 Finger Stick Blood Glucose 496 Intake and Output for Last 24 Hours 06/16/19 06/17/19 06/18/19 23:59 23:59 23:59 Intake Total 3043 / 3543 2763.00 / 2763.00 1453.00 / 1453.00 Output Total 500 / 500 Balance 2543 / 3043 2763.00 / 2763.00 1453.00 / 1453.00 Microbiology Past 72 Hours 06/15/19 09:00 Gram Stain - Final Bone - Toe Wound Culture - Final No growth aerobically. Anaerobic Culture - Preliminary No growth in 48 hours. 06/15/19 09:00 Gram Stain - Final Bone - Toe Wound Culture - Final Staphylococcus epidermidis 06/12/19 09:47 Blood Culture - Final Blood Culture (Wb) - Anticubital Left No growth in 5 days. 06/13/19 02:00 Gram Stain - Final Wound - Aerobic & Anaerobic Swabs Wound Culture - Final Streptococcus agalactiae (B) Staphylococcus epidermidis Anaerobic Culture - Final Anaerobic cocci Laboratory Tests Past 24 Hrs 06/18/19 06/18/19 05:31 05:31 WBC 9.1 RBC 3.85 L Hgb 10.6 L Hct 32.4 L MCV 84.2 MCH 27.5 MCHC 32.7 RDW Std Deviation 41.9 RDW Coeff of Bre[place] 13.7 Plt Count 291 MPV 9.0 Immature Gran % (Auto) 0.800 Neut % (Auto) 64.9 Lymph % (Auto) 24.6 [place] % (Auto) 6.8 Eos % (Auto) 2.5 Baso % (Auto) 0.4 Absolute Neuts (auto) 5.9 Absolute Lymphs (auto) 2.23 Nucleated RBC % 0 Sodium 142 Potassium 3.6 Chloride 111 H Carbon Dioxide 26.0 Anion Gap 5 BUN 13 Creatinine 0.59 Estim Creat Clear Calc 106.07 Est GFR (MDRD) Af Amer 141 Est GFR (MDRD) Non-Af 116 BUN/Creatinine Ratio 22.1 H Glucose 114 H Calcium 8.7 Magnesium 1.8 POC Glucose 06/18/19 06/17/19 06/17/19 06:45 21:18 16:19 POC Glucose 95 216 H 224 H 06/17/19 11:06 POC Glucose 181 H Medical Necessity - Tobacco Use Smoking Status: Current every day smoker Tobacco Use: Cigarettes - 1/2 PPD. Route of nutrition/ use of supplements: [] Nutritional Intake: [] IV Site: [] Carrillo Catheter: [] - Assessment/Plan Antibiotics: [] Assessment/Plan: [] Active and Suspected Problems Osteomyelitis of toe of right foot (Acute) Infection of toe (Acute) Cellulitis of foot, right (Acute) R 2nd toe osteo - now s/p partial amputation by Dr. Acuña 06/14. Wound cx with MRSE and GBS and anaerobes. Recent cx with morganella and MRSE. Narrowed abx to vanc/unasyn. Ok to complete short course of po abx with 4 days more of levaquin/flagyl after discharge. Will follow, d/w case operator
[2019-06-18 11:15] LABS: Bedside Glucose 210 mg/dL (70-110)
[2019-06-18 11:18] VITALS: BP 120/68; PULSE 79; RESP 16; TEMP 36.5; O2SAT 97
--- NOTE | 2019-06-18 12:48 | CASEMGMT ---
Social Work Call from [facility] at [facility] and precert has been obtained. Physician informed and d/c planned for today. SW met with pt and informed and she is agreeable. Phone call to [facility] to provide transportation and they will cotton picker between 2 and 5. Pt and nursing made aware. Phone call to [facility] and notified of d/c time. D/C orders faxed. Pt states she will notify anyone that she would like to know about the transfer. D/C to [facility] today. CHRISTOPHER Bejarano
--- NOTE | 2019-06-18 14:50 | NURSING ---
called report to [facility]. pt leaving by susi felix
== END 2019-06-18 17:18 | disposition skilled nursing facility (03) | DRG 314 ==
LOC: ED 11:45 → MS3 13:10
PROVIDERS: Anesthesiology; Nurse Practitioner Family; Podiatrist; Admitting Provider Internal Medicine; Emergency Provider Physician Assistant Medical; Family Provider Internal Medicine; PCP Internal Medicine; Referring Provider Internal Medicine; Visit Provider Internal Medicine
PROC: 0Y6R0Z1 Detachment at Right 2nd Toe, High, Open Approach (ICD-10-PCS; principal; 2019-06-15 07:45)
DX: E11.42 Type 2 diabetes mellitus with diabetic polyneuropathy (principal); E11.65 Type 2 diabetes mellitus with hyperglycemia; E03.9 Hypothyroidism, unspecified; E78.5 Hyperlipidemia, unspecified; I10 Essential (primary) hypertension; L97.512 Non-pressure chronic ulcer of other part of right foot with fat layer exposed; E66.01 Morbid (severe) obesity due to excess calories; L03.031 Cellulitis of right toe; M86.171 Other acute osteomyelitis, right ankle and foot; E11.69 Type 2 diabetes mellitus with other specified complication; E87.6 Hypokalemia; E83.42 Hypomagnesemia; F17.210 Nicotine dependence, cigarettes, uncomplicated; L03.115 Cellulitis of right lower limb; F41.8 Other specified anxiety disorders; Z89.411 Acquired absence of right great toe; Z68.36 Body mass index [BMI] 36.0-36.9, adult; Z79.4 Long term (current) use of insulin; Z59.0 Homelessness; E11.621 Type 2 diabetes mellitus with foot ulcer
CPT/HCPCS: 36415; 73630; 73718; 80048; 80076; 80202; 82962; 83036; 83605; 83735; 84100; 84443; 85025; 85027; 85652; 86140; 87015; 87040; 87070; 87075; 87077; 87102; 87116; 87186; 87205; 87206; 87640; 88304; 88305; 88311; 93005; 93923; 97110; 97162; 97166; 97530; 97802; 99284; 99406; J7030; J7040; J7050; A4216; J0295

== ENCOUNTER 2019-08-23 15:20 | Emergency (ER) | payer MEDICAID, SELFPAY ==
[2019-06-15 06:39] VITALS: BMI 36.8
[2019-08-23] VITALS (13 sets, daily range): BP systolic 104–144; BP diastolic 68–115; PULSE 73–88; RESP 12–20; TEMP 36.5; O2SAT 93–99; BMI 36.0
--- NOTE | 2019-08-23 15:25 | CT_ITS ---
STUDY: CT BRAIN WITHOUT CONTRAST REASON FOR EXAM: Female, 48 years old. Neurological deficit. RADIATION DOSAGE (If Supplied By Facility): CTDIvol = ( 44.99 ) mGy, DLP = ( 767.99 ) mGycm TECHNIQUE: Transaxial CT imaging of the brain was performed without administration of intravenous contrast material. Individualized dose optimization techniques were used for this CT. COMPARISON: Noncontrast CT brain June 13, 2015. FINDINGS: Normal soft tissue structures. Normal calvarium. Normal size ventricles and extra-axial spaces for the patient's age. Normal white matter tracts of the cerebral hemispheres. Normal basal ganglia and thalami. Normal brainstem. Stable, focal low-density in the white matter of the left cerebellar hemisphere may be an old lacunar infarct or volume averaging of a deep sulcus. There is no intracranial hemorrhage. Question of stable lacunar infarct versus deep basilar sulcus at the medial margin of the left temporal lobe on series 2 image 17. There are no findings of an acute ischemic infarction. Normal visualized paranasal sinuses. CT/Brain/Head without Contrast IMPRESSION: No acute intracranial pathology. N.B. : The above information has been verbally conveyed by Sony Padilla MD to Dr. Zane Sanz MD, on 08/23/2019 15:56:02 (ET). Electronically Signed: Sony Padilla MD at 15:57 EST , Service support ,
--- NOTE | 2019-08-23 15:25 | EKG12_ITS ---
Test Reason : STROKETEAM Blood Pressure : / mmHG Vent. Rate : 088 BPM Atrial Rate : 088 BPM P-R Int : 138 ms QRS Dur : 084 ms QT Int : 398 ms P-R-T Axes : 041 074 053 degrees QTc Int : 481 ms Normal sinus rhythm Prolonged QT Abnormal ECG Confirmed by DESIREE SEGOVIA, PHOEBE ([id number]), medical editor VINICIUS MULTANI ([id number]) on 08/25/2019 11:17:09 AM Referred By: RANDALL Confirmed By:PHOEBE RAMÍREZ MD
--- NOTE | 2019-08-23 15:26 | CT_ITS ---
We are attempting to reach an attending provider to discuss findings. An addendum with communication details will be sent when the communication is complete. STUDY: CTA HEAD AND NECK WITH CONTRAST REASON FOR EXAM: Female, 48 years old. RADIATION DOSAGE (If Supplied By Facility): CTDIvol = ( 18.14 ) mGy, DLP = ( 724.24 ) mGycm TECHNIQUE: CT angiography was performed with a multi-detector CT scanner. Data acquisition was obtained from the skull base through the vertex following intravenous administration of IV 100mL [id number]-370 100CC. MIP images were reconstructed from the axial data set. Post-processing of the angiographic images was performed, with multiplanar reformation and 3D reconstruction. Individualized dose optimization techniques were used for this CT. COMPARISON: No relevant priors. FINDINGS: Significant artifacts seen in this examination, however: Normal bilateral petrous carotid arteries. Normal right cavernous carotid artery with a normal supraclinoid bifurcation. Normal left cavernous carotid artery with a normal supraclinoid bifurcation. Normal right A1 segments of the anterior cerebral artery. Normal left A1 segments of the anterior cerebral artery. Normal intact anterior communicating artery (ACOM). Normal bilateral A2 segments of the anterior cerebral arteries. Normal right M1 and M2 segments of the middle cerebral arteries, with a normal M1 bifurcation. Normal left M1 and M2 segments of the middle cerebral arteries, with a normal M1 bifurcation. Normal right posterior communicating artery (PCOM). Normal left posterior communicating artery (PCOM). Normal bilateral vertebral arteries. Normal basilar artery with a normal basilar bifurcation. The visualized bilateral superior cerebellar (SCA) arteries are normal. Normal bilateral P1, P2 and visualized P3 segments of the posterior cerebral arteries. There is no demonstrated aneurysm of the [place]. There is no demonstrated abnormality of the visualized brain. AORTIC ARCH: Normal visualized aortic arch. Normal origins of the brachiocephalic, left common carotid, and left subclavian arteries. RIGHT CAROTID ARTERIES: Normal right common carotid artery (CCA). Normal right common carotid bulb. Normal origin of the right internal carotid (ICA) artery without a hemodynamically significant stenosis. Normal visualized cervical portion of the right internal carotid artery. Normal origin of the right external carotid artery (ECA). LEFT CAROTID ARTERIES: Normal left common carotid artery (CCA). Normal left common carotid bulb. Normal origin of the left internal carotid (ICA) artery without a hemodynamically significant stenosis. Normal visualized cervical portion of the left internal carotid artery. Normal origin of the left external carotid artery (ECA). VERTEBRAL ARTERIES: Normal bilateral vertebral arteries. CT/CTA Head AND Neck W/ Contrast IMPRESSION: Normal CTA Head and neck with contrast. Electronically Signed: Agustina Nguyen, at 16:23 EST Tel , Service support ,
--- NOTE | 2019-08-23 15:31 | NURSING ---
STROKE ALERT CALLED [id number]
--- NOTE | 2019-08-23 15:31 | ED.VISSUMM ---
- ER Visit Summary Date of Service: 08/23/19 Chief Complaint: Stroke History of Present Illness: The patient is a 48 F brought by EMS as a stroke alert. The patient had sudden onset of a headache and then difficulty speaking per EMS. They said that she could not speak at all. Here, her history is limited as she will speak in 1 or 2 word sentences. She said she never had this before. Denies any history of stroke or blood thinners. History of diabetes, M?ni?re's disease. Smoker. Physical Examination: Afebrile and vitals unremarkable except for blood pressure 143/115. Patient is alert but appears uncomfortable. She is oriented to person, place, and month. Neurologic exam is limited secondary to lack of participation. She seems to have muscle tone, but is not making an attempt to hold her arms or legs up bilaterally. She will follow my fingers somewhat. She speaks in short fragments, but does not have any obvious dysarthria. She will follow commands somewhat and her speech does make sense when she does speak. Test Results: EKG shows sinus rhythm at a rate of 88. Imaging and laboratory studies are pending. Emergency Department Course and Treatment: It appears to be uncomfortable and her exam is limited secondary to lack of participation. I cannot identify anything focal, and it seems like her speech changes are related to lack of effort. I suspect she may have hemorrhagic stroke given the sudden onset headache. We will continue with the team, but she will likely not be a TPA candidate based on her symptoms alone. CT, labs, chest x-ray pending. EKG showed sinus rhythm at a rate of 88. No sign of ischemia or infarction pattern. Chest x-ray showed nothing acute. CT brain was unchanged. CTA was normal. Labs were unremarkable except for glucose 241. Patient received Compazine, Benadryl, and Toradol for her headache. The neuro robot was utilized for consultation. Neurology did not feel this was a stroke for that the patient was a TPA candidate. They were concerned this might be conversion disorder, but that is a diagnosis of exclusion. Patient rested in the room. Her symptoms improved. She was able to get up and move. She was able to ambulate. At one point, she was not aware that nursing was still in the room, and she was using her phone without any issue. I suspect there is some component of secondary gain. On reevaluation, she is doing well. Walking, talking, no further symptoms. I do not believe that she needs further inpatient evaluation. Patient will be discharged to follow-up with primary care. Treatment Plan: As above Disposition: Discharge Impression: 1. Headache This note was generated with [employer] dictation software. It may contain incorrect words, spelling, and punctuation that were not noted in review of the chart prior to signing ED Disposition - Plan for ED Patient: Referrals: Shirley Garcia MD [Primary Care Provider] -
--- NOTE | 2019-08-23 15:35 | NURSING ---
FACESHEET FAXED TO [facility]
[2019-08-23 15:37] LABS: Basophil# 0.03 X10^3/uL; Basophil% 0.3 % (0-1); Eosinophil# 0.13 X10^3/uL; Eosinophils% 1.4 % (0-5); Hematocrit 41.5 % (37-47); Hemoglobin 13.6 g/dL (12.0-15.0); Lymphocyte % 25.4 % (19-41); Mean Corp Hgb Conc 32.8 g/dL (32-36); Mean Corpuscular Hgb 26.4 pg (27.0-32.0); Mean Corpuscular Volume 80.4 fL (81-99); Mean Platelet Vol. 9.3 fl (6.2-12.0); Monocyte# 0.58 X10^3/uL; Monocyte% 6.4 % (0-10); NRBC Flagged by Analyzer 0 % (0-5); Neutrophil # 5.98 X10^3/uL (2.7-7.7); Neutrophil % 66.2 % (47-70); Platelet Count 285 K/mm3 (150-450); RBC Distribution Width CV 14.4 % (11.6-14.6); RBC Distribution Width SD 41.5 fl (35.1-43.9); Red Blood Count 5.16 M/mm3 (4.2-5.4); White Blood Count 9.1 K/mm3 (4.4-11.0)
[2019-08-23 15:46] LABS: International Normalized Ratio 1.1; Prothrombin Time (Protime)PT. 13.5 SECONDS (11.7-14.9)
[2019-08-23 15:47] LABS: Partial Thromboplast Time 28.7 Seconds (24.1-36.2)
[2019-08-23 15:57] LABS: Anion Gap 9 (5-15); BUN 10 mg/dL (7-18); BUN/Creat Ratio 14.9 RATIO (10-20); Calcium,Total 8.7 mg/dL (8.5-10.1); Chloride 103 mmol/L (98-107); Creatinine, Serum 0.67 mg/dL (0.55-1.02); EST Glomerular Filtration Rate 100 mL/min (>60); Est Glom Filt Rate - Afr Amer 120 mL/min (>60); Estimated Creatinine Clearance 97.17 ml/min; Glucose 241 mg/dL (74-106); Potassium 3.6 mmol/L (3.5-5.1); Sodium Level 136 mmol/L (136-145)
--- NOTE | 2019-08-23 16:10 | RAD_ITS ---
STUDY: X-RAY CHEST REASON FOR EXAM: Female, 48 years old. Collapse with subsequent incoherence. Stroke alert. TECHNIQUE: Single AP portable upright view of the chest. COMPARISON: PA and lateral chest x-ray November 05, 2015. FINDINGS: The lungs are clear, but under expanded. There is no demonstrated pleural abnormality. Normal size heart. Normal mediastinum and liam. Normal visualized pulmonary arteries. Normal visualized aortic arch and descending thoracic aorta. Normal visualized thoracic spine. Normal visualized ribs, clavicles, and shoulders. There is no demonstrated abnormality of the visualized soft tissue structures of the upper abdomen. RAD/Chest 1 View IMPRESSION: Poor inspiratory effort with crowding. No acute cardiopulmonary disease. Electronically Signed: Sony Padilla MD at 17:25 EST , Service support ,
--- NOTE | 2019-08-23 16:21 | ED.RN ---
pt now using cell phone and texting independently. Speech improved. Able to ambulate to bedside commode without difficulties or assistance. Dr. Umu sullivan.
[2019-08-23] MEDS: DiphenhydrAMINE 50 MG/ML Syringe 25 MG IV (16:25)
[2019-08-23] MEDS: proCHLORPERazine 10 MG/2 ML Vial IV (16:25)
[2019-08-23] MEDS: Ketorolac 30 MG/ML Syringe IV (17:07)
--- NOTE | 2019-08-23 18:22 | ED.DEP ---
ED Disposition - Plan for ED Patient: Instructions: HEADACHE, Unspecified Referrals: Shirley Garcia MD [Primary Care Provider] -
[2019-08-24 07:15] LABS: Bedside Glucose 229 mg/dL (70-110)
== END 2019-08-23 18:36 | disposition home or self-care (01) ==
LOC: ED 15:29
PROVIDERS: Emergency Provider Emergency Medicine; Family Provider Internal Medicine; PCP Internal Medicine
DX: R51 Headache (principal); E11.9 Type 2 diabetes mellitus without complications; F17.200 Nicotine dependence, unspecified, uncomplicated; E03.9 Hypothyroidism, unspecified; K21.9 Gastro-esophageal reflux disease without esophagitis; I10 Essential (primary) hypertension; H81.09 Meniere's disease, unspecified ear
CPT/HCPCS: 70450; 70496; 70498; 71045; 80048; 82962; 84484; 85025; 85610; 85730; 93005; 96374; 96375; 99251; 99285; Q9967; G0463

== ENCOUNTER 2019-08-30 16:10 | Inpatient (IN) | payer MEDICAID, SELFPAY ==
[2019-08-23 15:28] VITALS: BMI 36.0
[2019-08-30] VITALS (8 sets, daily range): BP systolic 105–123; BP diastolic 55–99; PULSE 81–92; RESP 14–18; TEMP 36.6–36.9; O2SAT 95–100; BMI 36.3; BMI 30.6
--- NOTE | 2019-08-30 16:52 | EKG12_ITS ---
Test Reason : CP NEVER CALLED Blood Pressure : / mmHG Vent. Rate : 090 BPM Atrial Rate : 090 BPM P-R Int : 138 ms QRS Dur : 084 ms QT Int : 390 ms P-R-T Axes : 044 046 045 degrees QTc Int : 477 ms Normal sinus rhythm Normal ECG Confirmed by KITTY SEGOVIA, [place] ([id number]), web editor AMI TOUSSAINT ([id number]) on 09/01/2019 12:59:00 PM Referred By: Eliane Israel Confirmed By:CHEYENNE TANG MD
--- NOTE | 2019-08-30 16:54 | RAD_ITS ---
STUDY: X-RAY - RIGHT FOOT CLINICAL: Female, 48 years old. Right foot redness, attention second digit. TECHNIQUE: 3 view(s) of the foot. COMPARISON: None. FINDINGS: Status post amputation of the first digit at the metatarsophalangeal joint. Status post amputation of the second digit at the proximal phalangeal head. There is marked periosteal reaction of the second proximal phalanx. Small chip or bone fragments are noted at the resection site. Bony structures are otherwise unremarkable. Joint spaces are well-maintained. RAD/Foot min 3 Views IMPRESSION: 1. Prominent periosteal reaction of the second proximal phalanx. This may be due to prior surgery or trauma, but is concerning for infection. Consider MRI of the foot with contrast to rule out osteomyelitis. Electronically Signed: Sirena Ortez MD at 18:08 EST Tel , Service support ,
--- NOTE | 2019-08-30 16:55 | ED.DCSUM_ITS ---
History of Present Illness Chief Complaint: Fatigue Informant: Patient, Significant Other Onset: Days - 2-3 Context: Gradual Onset Timing: Continuous Quality: malaised, fatigued Location: all over Current Severity: Severe Maximum Severity: Severe Worsened by: nothing in particular Relieved by: nothing Associated Symptoms: right 2nd toe infection, URI sx; no fevers Narrative: Patient is a diabetic. She states she has had a cold for about a week or week and a half. Occasionally productive cough, swallowing a lot of mucus, which yesterday caused her to vomit multiple times throughout the day, she states that is common for her whenever she swallows mucus from a cold. Today she has no nausea, abdominal pain, diarrhea. She noticed today that her right second toe, which was partially amputated in April of this year due to infection it would not get better, had a blister on the end of it that drained a small amount of pus. She has numbness in that area of her foot so she has no pain. According to her and significant other, she has had soreness at the base of her second metatarsal, the lump on the top of my foot, chronically and that is sore now too. She has no pain elsewhere. She has been dizzy today, vertiginous and has a history of M?ni?re's disease. The dizziness mixed with feeling malaised has made her feel like she was going to collapse several times but not with presyncope/syncope. Her significant other was with her and states she was concerned because she was so tired and weak. In the last day or 2 she has not eaten anything and drink a little fluid. She has not checked her blood sugar. She states she is on Trulicity and that is new for her and made her feel faint since she was on it. - Past Medical History (1) Meniere disease Status: Chronic (2) Osteomyelitis of toe of right foot Status: Resolved (3) Depression with anxiety Status: Chronic (4) Fibromyalgia Status: Chronic (5) Hyperlipidemia Status: Chronic (6) Type 2 diabetes mellitus with diabetic polyneuropathy Status: Chronic Past Medical History - Allergies and Home Meds Allergies/Adverse Reactions: Allergies clindamycin Allergy (Verified 05/18/19 22:30) Hives erythromycin base [From E-Mycin] Allergy (Verified 05/18/19 22:30) Hives Primary Care Physician: Shirley Garcia MD [Primary Care Provider] - Doctors: Dr. Acuña, podiatry Surgical History: - - T+A, BLTL, appendectomy, right great toe amputation. Lives: Spouse/ Significant Other Smoking Status: Current every day smoker - Family History Paternal Family History: Reports: Asthma, - - Denies known paternal medical history including cardiac history. Maternal Family History: Reports: - - Thyroid disease. Review of Systems General: Reports: Malaise. Denies: Chills, Fever, Sweats Eyes: Denies: Visual changes - bilaterally, Diplopia ENT: Reports: Rhinorrhea. Denies: Bilateral ear pain, Sore throat Cardiovascular: Denies: Chest pain, Palpitations Respiratory: Reports: Cough, Sputum. Denies: Dyspnea, Dyspnea on exertion, Orthopnea Gastrointestinal: Reports: Vomiting - yest; resolved. Denies: Abdominal pain, Nausea, Diarrhea, Melena, Hematochezia Genitourinary: Denies: Dysuria, Hematuria, Frequency Musculoskeletal: Reports: Extremity Pain - see HPI. Denies: Back pain, Swelling Skin: Reports: Wounds - right 2nd tow. Denies: Rash Neurological: Reports: Numbness - BLE distally. Denies: Headache, Weakness Physical Exam Vital Signs/Narrative: Vital Signs Temp Pulse Resp BP Pulse Ox 08/30/19 16:14 97.8 F 89 18 109/55 L 100 08/30/19 16:11 97.8 F 91 18 109/55 L 100 Inital Vital Signs reviewed: Yes General: Well nourished, Well developed, No Acute Distress Head: Normocephalic, Atraumatic Eyes: Perrl, EOMI ENT: Moist mucous membranes, No rhinorrhea, - - POP clear Neck: Supple, Nontender, No lymphadenopathy Cardiovascular: Regular rate, Regular rhythm, No murmurs, Normal S1, Normal S2 Respiratory: No distress, CTA bilaterally, Chest nontender Abdomen: Soft, Nontender, Nondistended, Normal bowel sounds Back: Nontender, Normal Inspection Extremities: No edema, Tenderness - much of right foot dorsum, most of which is normal-appearing; small blister end/tip of right 2nd toe at distal aspect of surgical incision, open to peroneal aspect of it, no d/c expressible. no bleeding. toe is mildly erythemetous. no lymphangitis or redness progressing into foot. Skin: Normal color, No Trauma, - - erythema right 2nd toe, mild. see above. no other areas of erythema/wound Neurological: Alert, Oriented x3, Cranial nerves II-XII grossly intact, Normal Strength, Parasthesia - all toes Psychological: Normal affect, Normal Mood Diagnostic/Tx/Re-eval Impressions Foot X-Ray 08/30/19 16:54 IMPRESSION: 1. Prominent periosteal reaction of the second proximal phalanx. This may be due to prior surgery or trauma, but is concerning for infection. Consider MRI of the foot with contrast to rule out osteomyelitis. Electronically Signed: Sirena Ortez MD at 18:08 EST Tel , Service support , Chest X-Ray 08/30/19 17:35 IMPRESSION: Normal x-ray examination of the chest. Electronically Signed: Sirena Ortez MD at 17:56 EST Tel , Service support , 08/30/19 16:54 Foot min 3 Views [RAD] Stat 08/30/19 17:35 Chest PA and Lateral [RAD] Stat Laboratory Results 08/30/19 08/30/19 08/30/19 17:10 17:10 17:10 WBC 12.4 H RBC 4.98 Hgb 13.3 Hct 41.1 MCV 82.5 MCH 26.7 L MCHC 32.4 RDW Std Deviation 44.2 H RDW Coeff of [place] 14.8 H Plt Count 350 MPV 9.8 Immature Gran % (Auto) 0.300 Neut % (Auto) 71.4 H Lymph % (Auto) 21.4 [place] % (Auto) 5.1 Eos % (Auto) 1.3 Baso % (Auto) 0.5 Absolute Neuts (auto) 8.8 H Absolute Lymphs (auto) 2.65 Nucleated RBC % 0 Sodium 136 Potassium 3.6 Chloride 101 Carbon Dioxide 28.0 Anion Gap 7 BUN 27 H Creatinine 1.84 H Estim Creat Clear Calc 34.01 Est GFR (MDRD) Af Amer 38 L Est GFR (MDRD) Non-Af 31 L BUN/Creatinine Ratio 14.7 Glucose 294 H Lactic Acid 1.5 Calcium 9.2 Total Bilirubin 0.60 AST 19 ALT 25 Alkaline Phosphatase 114 Total Protein 7.1 Albumin 3.6 Globulin 3.5 Albumin/Globulin Ratio 1.0 - Medical Decision Making Patient has a mild leukocytosis, acute kidney injury compared with labs that were performed 1 week ago, and an x-ray suggesting periosteal reaction at the proximal phalanx of the right second toe, which may be indicative of early osteomyelitis. Zosyn was given empirically, will add vancomycin and admit for further treatment and work-up. Prior to testing I did discuss with Dr. Acuña, who agreed with admitting her if indicated, or following up with her on oral antibiotics if not. I think admission will probably be beneficial for her today. ED Disposition - Plan for ED Patient: [facility] Diagnosis: SEUN (acute kidney injury), Infection of toe, Type 2 diabetes mellitus with diabetic polyneuropathy, Osteomyelitis of second toe of right foot Referrals: Shirley Garcia MD [Primary Care Provider] -
[2019-08-30] MEDS: 0.9% Normal Saline 1,000 ML 999 ML IV (17:32)
--- NOTE | 2019-08-30 17:35 | RAD_ITS ---
STUDY: X-RAY CHEST REASON FOR EXAM: Female, 48 years old. Infection. TECHNIQUE: PA and lateral chest. COMPARISON: 08/23/2019. FINDINGS: The lungs are clear and expanded. There is no demonstrated pleural abnormality. Normal size heart. Normal mediastinum and liam. Normal visualized pulmonary arteries. Normal visualized aortic arch and descending thoracic aorta. Normal visualized thoracic spine. Normal visualized ribs, clavicles, and shoulders. There is no demonstrated abnormality of the visualized soft tissue structures of the upper abdomen. RAD/Chest PA and Lateral IMPRESSION: Normal x-ray examination of the chest. Electronically Signed: Sirena Ortez MD at 17:56 EST Tel , Service support ,
[2019-08-30 17:37] LABS: Absolute Lymphocyte Count 2.65 X10^3/uL (0.83-4.51); Absolute Neutrophil Count 8.8 X10^3/uL (2.0-7.7); Basophil# 0.06 X10^3/uL; Basophil% 0.5 % (0-1); Eosinophil# 0.16 X10^3/uL; Eosinophils% 1.3 % (0-5); Hematocrit 41.1 % (37-47); Hemoglobin 13.3 g/dL (12.0-15.0); Lymphocyte # 2.65 X10^3/ul (4.0); Lymphocyte % 21.4 % (19-41); Mean Corp Hgb Conc 32.4 g/dL (32-36); Mean Corpuscular Hgb 26.7 pg (27.0-32.0); Mean Corpuscular Volume 82.5 fL (81-99); Mean Platelet Vol. 9.8 fl (6.2-12.0); Monocyte# 0.63 X10^3/uL; Monocyte% 5.1 % (0-10); NRBC Flagged by Analyzer 0 % (0-5); Neutrophil # 8.82 X10^3/uL (2.7-7.7); Neutrophil % 71.4 % (47-70); Platelet Count 350 K/mm3 (150-450); RBC Distribution Width CV 14.8 % (11.6-14.6); RBC Distribution Width SD 44.2 fl (35.1-43.9); Red Blood Count 4.98 M/mm3 (4.2-5.4); White Blood Count 12.4 K/mm3 (4.4-11.0)
[2019-08-30 17:41] LABS: AST(SGOT) 19 U/L (15-37); Alanine Aminotransfer ALT/SGPT 25 U/L (13-56); Albumin, Serum 3.6 g/dL (3.2-5.0); Alkaline Phosphatase 114 U/L (45-117); Anion Gap 7 (5-15); BUN 27 mg/dL (7-18); BUN/Creat Ratio 14.7 RATIO (10-20); Calcium,Total 9.2 mg/dL (8.5-10.1); Chloride 101 mmol/L (98-107); Creatinine, Serum 1.84 mg/dL (0.55-1.02); EST Glomerular Filtration Rate 31 mL/min (>60); Est Glom Filt Rate - Afr Amer 38 mL/min (>60); Estimated Creatinine Clearance 34.01 ml/min; Globulin 3.5 g/dL (2.2-4.2); Glucose 294 mg/dL (74-106); Potassium 3.6 mmol/L (3.5-5.1); Protein, Total 7.1 g/dL (6.4-8.2); Sodium Level 136 mmol/L (136-145)
[2019-08-30 17:51] LABS: Lactic Acid 1.5 mmol/L (0.4-2.0)
--- NOTE | 2019-08-30 18:58 | ED.RN ---
PT GIVEN BEVERAGE TO DRINK. REPORTS SHE IS UNABLE TO URINATE AT THIS TIME.
[2019-08-30] MEDS: Acetaminophen 500 MG Tablet 1000 MG PO (19:07)
--- NOTE | 2019-08-30 19:16 | HP.PCM_ITS ---
Problem List (1) SEUN (acute kidney injury) Status: Acute (2) Osteomyelitis of second toe of right foot Status: Acute (3) Type 2 diabetes mellitus with diabetic polyneuropathy Status: Chronic (4) Hyperlipidemia Status: Chronic (5) Fibromyalgia Status: Chronic (6) Depression with anxiety Status: Chronic History of Present Illness Date of Admission: 08/30/19 Chief Complaint: Weakness, fatigue. The patient is a 48 year old F patient with past medical history as mentioned above presented to the emergency room because of vague symptoms of weakness and fatigue. And although she was young but she was not interested in providing detailed history. Her fianc? was at the bedside and he has been intervening given history throughout the encounter. The patient came to the emergency room because of weakness and fatigue, generalized, nonspecific and without other associated symptoms. Also, she complained of swelling and mild erythema of the right second toe which has been going on for several days and she is not sure if she bumped her right foot on something or not. She denies fever chills. She denied open wound or drainage. Patient underwent debridement and partial amputation of the second right toe for osteomyelitis on May, and she was discharged on Levaquin and Flagyl and she completed her course of antibiotics. She has a history of type 2 diabetes mellitus which seemed to be uncontrolled, her hemoglobin A1c was 10.8 on May, and she mentioned that her doctor increased dose of Levemir to 50 units twice daily 4 days ago. She had a history of hypothyroidism and she has been on levothyroxine, TSH was normal on May,. She has history of depression and anxiety and she has been on Cymbalta, trazodone and Vistaril. In the emergency department, her vital signs were stable. Her routine blood work was remarkable for mild leukocytosis, BUN of 27 and creatinine of 1.84. Her blood glucose was 294 without evidence of DKA. Lactic acid was normal. LFT was unremarkable. EKG revealed normal sinus rhythm, normal QRS, normal WA interval, no acute ischemic changes. X-ray of the right foot revealed prominent periosteal reaction of the second proximal phalanx concerning for osteomyelitis. Chest x-ray showed no acute findings. She is being admitted for acute kidney injury and suspected recurrent osteomyelitis of the right second toe. Past Medical History Past Medical History (Chronic Problems): Chronic Problems Meniere disease (Chronic) Chronic ulcer of right foot with fat layer exposed (Chronic) Type 2 diabetes mellitus with diabetic polyneuropathy (Chronic) Hammer toe of right foot (Chronic) Obesity (BMI 30-39.9) (Chronic) Vertigo (Chronic) Hyperlipidemia (Chronic) Fibromyalgia (Chronic) Depression with anxiety (Chronic) Allergies clindamycin Allergy (Verified 05/18/19 22:30) Hives erythromycin base [From E-Mycin] Allergy (Verified 05/18/19 22:30) Hives Home Medications: Ambulatory Orders Medication Instructions Recorded Duloxetine Hcl [Cymbalta] 60 mg PO QHS 10/30/13 Insulin Detemir [Levemir FlexPen] 50 units SC BID #0 10/30/13 Fluticasone 44 Mcg [Flovent 44 Mcg] 2 puff INHALATION BID PRN 10/17/17 Levothyroxine [Synthroid] 112 mcg PO DAILY 10/17/17 Meclizine HCl 25 mg PO TID PRN 10/17/17 Famotidine [Pepcid] 20 mg PO DAILY 05/18/19 Hydroxyzine Pamoate [Vistaril] 50 mg PO QHS 05/18/19 Lisinopril [Zestril] 20 mg PO DAILY 05/18/19 Pregabalin [Lyrica] 100 mg PO BID 06/12/19 traZODone [Desyrel] 50 mg PO QHS 06/12/19 Duloxetine Hcl [Cymbalta] 30 mg PO DAILY 06/13/19 Insulin Lispro [Humalog KwikPen] See Protocol SUBCUT ACHS 06/18/19 insuln.pen Albuterol Inhaler [Ventolin Hfa 1 - 2 puff INHALATION Q6H PRN PRN 08/30/19 (SP)] Atorvastatin Calcium [Lipitor] 80 mg PO QHS 08/30/19 Biotin 1 mg PO DAILY 08/30/19 Dulaglutide [Trulicity] 0.75 mg SQ WE 08/30/19 Hydrochlorothiazide 50 mg PO DAILY 08/30/19 Surgical History: appendectomy, - - T+A, BLTL, appendectomy, right great toe amputation. 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 Paternal History Items: - - Denies known paternal medical history including cardiac history. Review of Systems Constitutional: Reports: Anorexia, Weakness. Denies: Chills, Fever Eyes: Denies: Blurred vision, Double vision, Drainage, Redness, Vision Change HEENT: Denies: Difficulty Hearing, Ear Pain, Eye Pain, Nasal Congestion, Sore Throat Cardiovascular: Denies: Chest Pain, Chest Pressure, Edema, Heaviness, Light Headedness, Palpitations, Syncope Respiratory: Reports: Cough. Denies: Pleuritic Pain, Shortness of Breath, Sputum production, Wheezing Gastrointestinal: Denies: Abdominal Pain, Constipation, Diarrhea, Nausea, Vomiting Genitourinary: Denies: Dysuria, Frequency, Hematuria Musculoskeletal: Denies: Arm Pain, Back Pain, Foot Pain Skin: Denies: Dryness, Rash Neurological: Denies: Balance problems, Blurred vision, Double vision, Change in Speech, Focal weakness, Headaches, Incoordination, Numbness Psychiatric: Reports: Anxiety, Depression Endocrine: Denies: Change in Body Habitus, Polydipsia, Polyuria VTE Information - Inpt Only VTE Present on Admission: No VTE Mechan Device Prophylaxis: None VTE Pharm Prophylaxis ordered?: Yes Patient Problems: Active and Suspected Problems SEUN (acute kidney injury) (Acute) Osteomyelitis of second toe of right foot (Acute) - Physical Exam Vitals/I&O's: Vital Signs Temp Pulse Resp BP Pulse Ox 98.5 F 92 14 114/99 H 95 08/30/19 19:12 08/30/19 19:12 08/30/19 19:12 08/30/19 19:12 08/30/19 19:12 Oxygen Delivery Method Room Air Weight: 218 lb 11.177 oz Body Mass Index (BMI) 36.3 Finger Stick Blood Glucose 229 Intake and Output for Last 24 Hours 08/28/19 08/29/19 08/30/19 23:59 23:59 23:59 Intake Total 1050.00 / 1050.00 Balance 1050.00 / 1050.00 General: Alert, Oriented x3, Cooperative, No apparent distress HEENT: Atraumatic, PERRLA, EOMI, Normocephalic Oral: Moist Mucosa, No Gingival or Mucosal Lesions/ Ulcerations Neck: Supple, No JVD, Negative Carotid Bruits, Trachea Midline, Thyroid Normal Size and Texture Lungs: Clear to auscultation, Normal air movement, No rhonchi, No wheeze, No rales, Diminished Cardiovascular: Regular rate, Regular Rhythm, Normal S1, Normal S2, PMI Normal Abdomen: Bowel Sounds Present, Soft, Non Tender, Non-Distended, No Hepato- splenomegaly Extremities: No clubbing, No cyanosis, No edema Skin: No rashes, Ulcer/ Wound, - - Right second toe: Mild swelling and erythema of the middle phalanx of the right second toe, very small dry wound on the top of it without drainage. Lymphatic: No Cervical, Supraclavicular, or Inguinal Adenopathy Neurological: Cranial nerves II-XII grossly intact, Motor Exam 5/5 strength throughout Psych/Mental Status: Normal Affect, Appropriate, Alert and oriented to time, place, person, mood and affect Laboratory Results 08/30/19 17:10: WBC 12.4 H, RBC 4.98, Hgb 13.3, Hct 41.1, MCV 82.5, MCH 26.7 L, MCHC 32.4, RDW Std Deviation 44.2 H, RDW Coeff of [place] 14.8 H, Plt Count 350, MPV 9.8, Immature Gran % (Auto) 0.300, Neut % (Auto) 71.4 H, Lymph % (Auto) 21.4, [place] % (Auto) 5.1, Eos % (Auto) 1.3, Baso % (Auto) 0.5, Absolute Neuts (auto) 8.8 H, Absolute Lymphs (auto) 2.65, Nucleated RBC % 0 08/30/19 17:10: Sodium 136, Potassium 3.6, Chloride 101, Carbon Dioxide 28.0, Anion Gap 7, BUN 27 H, Creatinine 1.84 H, Estim Creat Clear Calc 34.01, Est GFR (MDRD) Af Amer 38 L, Est GFR (MDRD) Non-Af 31 L, BUN/Creatinine Ratio 14.7, Glucose 294 H, Calcium 9.2, Total Bilirubin 0.60, AST 19, ALT 25, Alkaline Phosphatase 114, Total Protein 7.1, Albumin 3.6, Globulin 3.5, Albumin/Globulin Ratio 1.0 08/30/19 17:10: Lactic Acid 1.5 Clinical Impression(s) from Imaging Studies Foot X-Ray 08/30/19 16:54 IMPRESSION: 1. Prominent periosteal reaction of the second proximal phalanx. This may be due to prior surgery or trauma, but is concerning for infection. Consider MRI of the foot with contrast to rule out osteomyelitis. Electronically Signed: Sirena Ortez MD at 18:08 EST Tel , Service support , Chest X-Ray 08/30/19 17:35 IMPRESSION: Normal x-ray examination of the chest. Electronically Signed: Sirena Ortez MD at 17:56 EST Tel , Service support , Current Medications Vancomycin HCl 1,500 mg/ (Sodium Chloride) 530 mls @ 250 mls/hr IV X1 ONE Stop: 08/30/19 21:07 Assessment/Plan All Active Problems SEUN (acute kidney injury) (Acute) Osteomyelitis of second toe of right foot (Acute) This is a 48 years old female patient presented to the emergency room because of vague symptoms of weakness and fatigue and also complained of right second toe swelling and erythema and she was found to have acute kidney injury as well as suspected acute osteomyelitis of the right second toe in context of recent history of osteomyelitis of the right second toe status post debridement and partial amputation on May,. #1 suspected recurrent osteomyelitis of the right second toe: In context of recent history of osteomyelitis of the same place status post partial limitation of the right second toe with debridement which was done on May,, patient completed course of Levaquin and Flagyl after surgery. X-ray of the right foot reviewed as above. No evidence of sepsis or severe sepsis. Plan: Admit to [facility] floor, IV fluids, Tylenol PRN, MRSA nasal screening, start IV vancomycin, ESR, CRP, podiatry medicine consult, repeat CBC and BMP tomorrow morning. #2 acute kidney injury: Probably prerenal secondary to dehydration and poor oral intake as well as medication side effects including HCTZ and lisinopril. Baseline kidney function is normal. On admission, BUN was 27 and creatinine was 1.84, creatinine was 0.671-week ago. Plan: IV fluids, hold lisinopril and HCTZ, input output chart, repeat BMP tomorrow morning. #3 uncontrolled type 2 diabetes mellitus: Hemoglobin A1c was 10.8 on April,. According to the patient, dose of Levemir increased to 50 units twice daily 4 days ago by her PCP. Plan: Continue same dose of Levemir twice daily, Accu-Cheks q. before meals at bedtime, sliding scale, hold Trulicity for now, check hemoglobin A1c. #4 hypothyroidism: Stable, continue levothyroxine. #5 anxiety/depression: Continue Cymbalta, Vistaril and trazodone. #6 peripheral neuropathy: Stable, continue Lyrica. #7 M?ni?re's disease/chronic vertigo: Stable, continue meclizine as needed. #8 DVT prophylaxis: Subcu heparin. This note was generated with [employer] dictation software. It may contain incorrect words, spelling, and punctuation that were not noted in checking the note before signing. Code Visit Inpatient E&M: 10684 Init Hosp L3
--- NOTE | 2019-08-30 19:58 | PCM.RX.CS ---
Consult Pharmacy has been consulted to manage selected antiobiotic: Vancomycin Type of Consult: New start Labs: Sodium 136 mmol/L (136-145) 08/30/19 17:10 Potassium 3.6 mmol/L (3.5-5.1) 08/30/19 17:10 Chloride 101 mmol/L (98-107) 08/30/19 17:10 Carbon Dioxide 28.0 mmol/L (21.0-32.0) 08/30/19 17:10 Anion Gap 7 (5-15) 08/30/19 17:10 BUN 27 mg/dL (7-18) H 08/30/19 17:10 Creatinine 1.84 mg/dL (0.55-1.02) H 08/30/19 17:10 Est GFR (MDRD) Af Amer 38 mL/min (>60) L 08/30/19 17:10 Est GFR (MDRD) Non-Af 31 mL/min (>60) L 08/30/19 17:10 BUN/Creatinine Ratio 14.7 RATIO (10-20) 08/30/19 17:10 Glucose 294 mg/dL (74-106) H 08/30/19 17:10 Weight used for dosin lb 15.739 oz Estimated Creatinine Clearance: 40 Goal Trough: 10-15 mcg/mL Pharmacy Plan for Drug Dosing: Pharmacy Service will continue to monitor and adjust dosing as required. Initial dose of 1500mg given 08/30 at 1922 New dose of 1250mg q24h entered Trough will be obtained 09/01 1930 Follow-Up Labs: Trough Vancomycin
[2019-08-30] MEDS: hydrOXYzine PAM 25 MG Capsule 50 MG PO (20:23)
--- NOTE | 2019-08-30 20:37 | PCM.CONS.GEN ---
Problem List (1) Infection of toe Status: Acute (2) Osteomyelitis of second toe of right foot Status: Suspected (3) Chronic ulcer of right foot with fat layer exposed Status: Chronic (4) Type 2 diabetes mellitus with diabetic polyneuropathy Status: Chronic (5) Hammer toe of right foot Status: Chronic Reason for Consult Date of Consultation: 08/30/19 Reason for Consultation: Right foot infection History of Present Illness: The patient is a 48 year old F presented to the emergency room complaining of weakness and fatigue. She also relates she has a right second partial toe amputation stump site ulcer that has been intermittently healing since her surgery with Dr. Acuña earlier this year (06/15/19). She had a prior hallux amputation and partial second toe amputation on the right foot. She has been applying Aquacel Ag to the ulcer site and relates recently this wound has been open for at least a couple of weeks. She relates she last noticed some purulent drainage earlier this week and not currently. She relates her symptoms started yesterday and she also has concurrent redness and swelling to the right foot particularly around the second toe. She denies injury. She denies increased recent activity over the holiday weekend. She denies wearing dress shoes or tight shoes. 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 She does not recall having a previous vascular study performed. She admits she is claudication after walking 2 blocks. She has pronounced neuropathy and does not even feel light touch. She relates her diabetes is fairly controlled and that her kidney impairment is only due to dehydration. She is worried about having another amputation and is crying bedside this evening. Past Medical History Past Medical History (Chronic Problems): Chronic Problems Meniere disease (Chronic) Chronic ulcer of right foot with fat layer exposed (Chronic) Type 2 diabetes mellitus with diabetic polyneuropathy (Chronic) Hammer toe of right foot (Chronic) Obesity (BMI 30-39.9) (Chronic) Vertigo (Chronic) Hyperlipidemia (Chronic) Fibromyalgia (Chronic) Depression with anxiety (Chronic) Allergies clindamycin Allergy (Verified 05/18/19 22:30) Hives erythromycin base [From E-Mycin] Allergy (Verified 05/18/19 22:30) Hives Home Medications: Ambulatory Orders Medication Instructions Recorded Duloxetine Hcl [Cymbalta] 60 mg PO QHS 02/01/14 Insulin Detemir [Levemir FlexPen] 50 units SC BID #0 10/30/13 Levothyroxine [Synthroid] 112 mcg PO DAILY 10/17/17 Meclizine HCl 25 mg PO TID PRN 10/17/17 Famotidine [Pepcid] 20 mg PO DAILY 05/18/19 Hydroxyzine Pamoate [Vistaril] 50 mg PO TID PRN PRN 05/18/19 Pregabalin [Lyrica] 100 mg PO BID 06/12/19 traZODone [Desyrel] 50 mg PO QHS 06/12/19 Duloxetine Hcl [Cymbalta] 30 mg PO DAILY 06/13/19 Albuterol Inhaler [Ventolin Hfa 1 - 2 puff INHALATION Q6H PRN PRN 08/30/19 (SP)] Atorvastatin Calcium [Lipitor] 80 mg PO QHS 08/30/19 Biotin 1 mg PO DAILY 08/30/19 Dulaglutide [Trulicity] 0.75 mg SQ WE 08/30/19 Hydrochlorothiazide 50 mg PO DAILY 08/30/19 Insulin Aspart [Novolog Flexpen] See Protocol SQ TIDCM 08/30/19 Surgical History: appendectomy, - - T+A, BLTL, appendectomy, right great toe amputation. 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 Paternal History Items: - - Denies known paternal medical history including cardiac history. Review of Systems Constitutional: Reports: Malaise, Weakness, Fatigue. Denies: Chills, Fever Cardiovascular: Reports: Claudication. Denies: Chest Pain Respiratory: Denies: Shortness of Breath Gastrointestinal: Denies: Abdominal Pain, Nausea, Vomiting Musculoskeletal: Denies: Foot Pain, Joint Tenderness, Leg Pain Skin: Reports: Wounds. Denies: Skin Changes Neurological: Reports: Incoordination, Numbness, Tingling Psychiatric: Reports: Anxiety, Depression Hematologic/ Lymphatic: Denies: Easy Bleeding Patient Problems: Active and Suspected Problems Infection of toe (Acute) SEUN (acute kidney injury) (Acute) Osteomyelitis of second toe of right foot (Suspected) - Physical Exam Vitals/I&O's: Vital Signs Temp Pulse Resp BP Pulse Ox 98 F 81 16 117/73 96 08/30/19 19:50 08/30/19 19:50 08/30/19 19:50 08/30/19 19:50 08/30/19 19:50 Oxygen Delivery Method Room Air Weight: 83.4 kg Body Mass Index (BMI) 30.6 Finger Stick Blood Glucose 229 Intake and Output for Last 24 Hours 08/28/19 08/29/19 08/30/19 23:59 23:59 23:59 Intake Total 1050.00 / 1050.00 Balance 1050.00 / 1050.00 General: Alert, Oriented x3, Cooperative HEENT: Atraumatic Extremities: No cyanosis, Capillary Refill Less than 3 Seconds, Diminished Peripheral Pulses - 2 out of 4 DP pulse bilateral and PT pulse bilateral. Her hair is scant to the lower leg and foot bilateral, Edema Skin: Ulcer/ Wound - Distal right second amputation stump site of the toe skin discontinuity pre-debridement measures 1 mm x 1 mm x 2 mm post debridement measures 2 mm x 4 mm x 2 mm. It is pale granular base. There is no purulence or odor on expression and no streaking. There is some ecchymosis and faint erythema localized just to the remaining second toe and this has some bulbous swelling. There is no proximal streaking. There is no bogginess or crepitus on palpation. The right hallux amputation cicatrix is healed and intact. There is no interdigital maceration or necrosis noted, - - Atrophic hair bilateral lower extremities. No ulcer or infection noted to the left lower extremity Musculoskeletal: No Muscle Wasting, Muscle Wasting, - - Negative Dominic and Sosa sign bilateral. Compartments are soft to palpate bilateral lower extremities. Right hallux amputation and partial second toe amputation noted. Active range of motion digits and ankle noted without pain bilateral Lymphatic: - - Non palpable popliteal lymph nodes bilateral Neurological: - - Lack of normal epicritic sensation light touch consistent with neuropathy status bilateral lower extremity Psych/Mental Status: Normal Affect, Appropriate Laboratory Results 08/30/19 17:10: WBC 12.4 H, RBC 4.98, Hgb 13.3, Hct 41.1, MCV 82.5, MCH 26.7 L, MCHC 32.4, RDW Std Deviation 44.2 H, RDW Coeff of Brea 14.8 H, Plt Count 350, MPV 9.8, Immature Gran % (Auto) 0.300, Neut % (Auto) 71.4 H, Lymph % (Auto) 21.4, Eddy % (Auto) 5.1, Eos % (Auto) 1.3, Baso % (Auto) 0.5, Absolute Neuts (auto) 8.8 H, Absolute Lymphs (auto) 2.65, Nucleated RBC % 0 08/30/19 17:10: Sodium 136, Potassium 3.6, Chloride 101, Carbon Dioxide 28.0, Anion Gap 7, BUN 27 H, Creatinine 1.84 H, Estim Creat Clear Calc 34.01, Est GFR (MDRD) Af Amer 38 L, Est GFR (MDRD) Non-Af 31 L, BUN/Creatinine Ratio 14.7, Glucose 294 H, Calcium 9.2, Total Bilirubin 0.60, AST 19, ALT 25, Alkaline Phosphatase 114, Total Protein 7.1, Albumin 3.6, Globulin 3.5, Albumin/Globulin Ratio 1.0 08/30/19 17:10: Lactic Acid 1.5 08/30/19 17:10: ESR Pending 08/30/19 17:10: C-React Prot Ext Range Pending 08/30/19 17:10: Hemoglobin A1c Pending Current Medications Acetaminophen (Tylenol) 650 mg PO Q6H PRN PRN PRN Reason: Pain Score 1-3/Temp > 100.7 F Albuterol Sulfate (Ventolin Aerosols) 2.5 mg INHALATION Q4H PRN PRN PRN Reason: Shortness of breath, wheezing Atorvastatin Calcium (Lipitor) 80 mg PO QHS ASHLEY Budesonide (Pulmicort Aerosol) 0.5 mg INHALATION BID PRN PRN Reason: ALLERGIES Dextrose (D50w Syringe) 0 gm IV X1 PRN; Protocol PRN Reason: Hypoglycemia Duloxetine HCl (Cymbalta) 60 mg PO QHS ASHLYE Duloxetine HCl (Cymbalta) 30 mg PO DAILY ASHLEY Famotidine (Pepcid) 20 mg PO DAILY ASHLEY Glucagon () 1 mg IM .X1 PRN PRN Reason: Hypoglycemia Heparin Sodium (Porcine) (Heparin Na) 5,000 unit SC Q8 ASHLEY Hydroxyzine Pamoate (Vistaril Pamoate Capsule) 50 mg PO QHS [facility] Last Admin: 08/30/19 20:23 Dose: 50 mg Documented by: Vancomycin HCl 1,500 mg/ (Sodium Chloride) 530 mls @ 250 mls/hr IV X1 ONE Stop: 08/30/19 21:07 Last Admin: 08/30/19 19:22 Dose: 250 mls/hr Documented by: Sodium Chloride () 1,000 mls @ 125 mls/hr IV .Q8H ASHLEY Vancomycin HCl 1,250 mg/ (Sodium Chloride) 275 mls @ 167 mls/hr IV Q24H ASHLEY Insulin Glargine (Lantus (Bkc)) 50 units SC BID [facility] Insulin Human Lispro (Humalog Kwikpen (Bkc)) 0 unit SC ACHS [facility]; Protocol Levothyroxine Sodium (Synthroid) 112 mcg PO DAILY@0600 [facility] Meclizine HCl (Antivert) 25 mg PO TID PRN PRN Reason: DIZZINESS Nutritional Formula (Lactose Free) (Glucerna Shake) 120 ml PO 4X/DAY [facility] Ondansetron HCl (Zofran) 4 mg IV Q8H PRN PRN PRN Reason: NAUSEA/VOMITING Pregabalin (Lyrica) 100 mg PO BID [facility] Sodium Chloride () 10 - 40 ml IV UD PRN PRN Reason: SALINE FLUSH Trazodone HCl (Desyrel) 50 mg PO QHS [facility] Assessment/Plan All Active Problems Infection of toe (Acute) SEUN (acute kidney injury) (Acute) Right foot cellulitis Right second toe amputation at partial amputation stump site Osteomyelitis suspected versus reparative periosteal thickening secondary to biomechanical forces of proximal phalanx given hallux amputation Uncontrolled diabetes mellitus with neuropathy Acute kidney injury Small vessel disease suspected Smoker Other comorbidities I reviewed and discussed her case this evening. Her x-rays were reviewed which demonstrated no soft tissue emphysema, foreign body, acute fracture dislocation. There is some periosteal thickening noted to the second toe proximal phalanx and previous partial toe amputation is noted. This finding was not present when comparing to her films taken approximately 3 months ago. He does have mild leukocytosis of 12.4, sedimentation rate of 10 and normal C-reactive protein level. Her ulcer was debrided with a 15 blade scalpel after verbal consent was obtained to further evaluate. This was performed to excisionally debride nonviable subcutaneous tissue, biofilm, slough, and fibrous tissue. Pressure was applied to maintain hemostasis and she tolerated this well. Is noted there was no purulence or odor on expression. The ulcer site was cultured and sent for aerobic, anaerobic, and MRSA PCR. There was no deep probing directly to bone. She was advised to have this change daily with Aquacel Ag and gauze. A dry dressing was applied today. She does have some clinical findings consistent with cellulitis in the concern is that there is underlying osteomyelitis. These x-ray findings could be consistent with a bone infection or just increased mechanical stresses to the stomach and also because the periosteal thickening observed. I recommend an MRI to gain further insight on this issue. Her GFR of less than 40 is noted and therefore the test was ordered without contrast. We discussed treatment options pending her response to continue IV broad spectrum antibiotics of vancomycin and Zosyn versus surgical options such as completing the toe amputation. I also recommend an infectious disease consultation given her comorbidities and history of impaired healing potential. We will proceed forward with the testing and reevaluate tomorrow. I also reviewed her noninvasive vascular studies obtained earlier this year and appears she has normal perfusion to the ankle level. Digital brachial indices were not obtained given she has a right hallux amputation. I am concerned about some form of vascular disease including small vessel disease of the toes given her smoking history and her reported claudication symptoms. I do recommend a vascular surgery referral on an inpatient versus outpatient basis given her delayed healing. We discussed compliance with offloading and I recommend she returns to a surgical shoe and performs heel weightbearing activity only. She understands at this time getting into a shoe when the wound is not healed will significantly impair the healing process. Smoking cessation, improved glycemic control, and nutritional supplementation were recommended to optimize healing. Medical management and DVT prophylaxis per primary team is greatly appreciated. Thank you for the consultation. I will continue to follow her closely one house. I answered her questions this evening. Please do not hesitate to call if you have any questions. Marge Martin DPM, [facility] [phone]
--- NOTE | 2019-08-30 20:43 | MRI_ITS ---
STUDY: MRI RIGHT MIDFOOT REASON FOR EXAM: Female, 48 years old. Right second toe redness and swelling. TECHNIQUE: Standardized fat and water weighted pulse sequences were obtained in all 3 orthogonal planes. COMPARISON: X-ray 08/30/2019. FINDINGS: Prior amputation of the first digit at the metatarsophalangeal joint. Prior amputation of the second digit at the neck of the second proximal phalanx. Marrow edema in the cuneiform bones, second and third proximal metatarsal bones. There is mild marrow edema in the first metatarsal head and neck. Tarsometatarsal joints are intact. Metatarsophalangeal joints are unremarkable. Lisfranc ligament is intact. Extensor tendons are intact. Signal abnormality is noted in the flexor tendons of the first and second digits, suspicious for tendinosis. There is moderate marrow edema in the proximal phalanx of the second digit. No cortical destruction. There is moderate soft tissue edema around the second proximal phalanx. No organized collection. Mild dorsal subcutaneous edema. MRI/Lower Ext/No Jt/w/o IMPRESSION: 1. Marrow edema in the second proximal phalanx is concerning for osteomyelitis. 2. Moderate marrow edema in the cuneiform, second and third metatarsal bones is suspicious for early degenerative changes. 3. Tendinosis of the flexor tendons of the first and second digits. Electronically Signed: Sirena Ortez MD at 18:00 EST Tel , Service support ,
[2019-08-30 20:49] LABS: CRP < 2.90 mg/L (0.0-3.0)
[2019-08-30 20:52] LABS: Erythrocyte Sedimentation Rate 10 mm/hr (0-20)
[2019-08-30] MEDS: DULoxetine Hcl 30 MG Capsule 60 MG PO (21:32)
[2019-08-30] MEDS: Atorvastatin Calcium 80 MG Tablet PO (21:32)
[2019-08-30] MEDS: Pregabalin 50 MG Capsule 100 MG PO (21:32)
[2019-08-30] MEDS: traZODone 50 MG Tablet PO (21:32)
[2019-08-30] MEDS: Heparin Injection (Vial) 5,000 UNIT/ML VIAL 5000 UNIT SC (21:33)
[2019-08-30] MEDS: Insulin Lispro 100 UNIT/ML INSULN.PEN SC (21:33)
[2019-08-30] MEDS: 0.9% Normal Saline 1,000 ML 125 ML IV (21:34)
[2019-08-30] MEDS: Glucerna Shake 120 ML LIQUID PO (21:37)
[2019-08-30 23:00] LABS: Bedside Glucose 323 mg/dL (70-110)
[2019-08-30 23:22] LABS: M R Staph aureus DNA By PCR Negative (Negative); Probe Check PASS; Specimen Processing Control PASS; Staph aureus DNA By PCR NEGATIVE (Negative)
[2019-08-31] VITALS (7 sets, daily range): BP systolic 84–134; BP diastolic 51–82; PULSE 68–95; RESP 16–18; TEMP 36.4–37.1; O2SAT 92–99
[2019-08-31] MEDS: 0.9% Normal Saline 1,000 ML 999 ML IV (04:30)
[2019-08-31] MEDS: Heparin Injection (Vial) 5,000 UNIT/ML VIAL 5000 UNIT SC ×3 (06:18→20:17)
[2019-08-31] MEDS: 0.9% Normal Saline 1,000 ML 125 ML IV ×2 (06:18→15:02)
[2019-08-31] MEDS: Levothyroxine 112 MCG Tablet PO (06:19)
[2019-08-31] MEDS: Insulin Lispro 100 UNIT/ML INSULN.PEN SC ×4 (06:19→20:19)
[2019-08-31 06:28] LABS: Bacteria 0 SEEN /hpf (None Seen); Mucous, Urine 0 SEEN /hpf (<or=2+)
[2019-08-31 06:46] LABS: Bedside Glucose 315 mg/dL (70-110)
[2019-08-31 06:51] LABS: Color, Urine Yellow (Yellow); Glucose, Dipstick 1000 mg/dl (Normal); Ketone-Dipstick Negative (Negative); Leukocyte Esterase-Dipstick Negative /ul (Negative); Nitrite-Dipstick Negative (Negative); Occult Blood-Urine 250 /ul (Negative); Protein-Dipstick Negative (Negative); Specific Gravity, Urine 1.015 (1.002-1.030); Urine Bilirubin Dipstick Negative (Negative); Urine Clarity Clear (Clear); Urine Urobilinogen Normal (Normal)
[2019-08-31 06:55] LABS: Absolute Lymphocyte Count 2.63 X10^3/uL (0.83-4.51); Absolute Neutrophil Count 4.4 X10^3/uL (2.0-7.7); Basophil# 0.05 X10^3/uL; Basophil% 0.6 % (0-1); Eosinophil# 0.18 X10^3/uL; Eosinophils% 2.3 % (0-5); Hematocrit 34.6 % (37-47); Hemoglobin 10.9 g/dL (12.0-15.0); Lymphocyte # 2.63 X10^3/ul (4.0); Lymphocyte % 33.4 % (19-41); Mean Corp Hgb Conc 31.5 g/dL (32-36); Mean Corpuscular Hgb 26.5 pg (27.0-32.0); Mean Corpuscular Volume 84.2 fL (81-99); Mean Platelet Vol. 10.3 fl (6.2-12.0); Monocyte# 0.59 X10^3/uL; Monocyte% 7.5 % (0-10); NRBC Flagged by Analyzer 0 % (0-5); Neutrophil # 4.39 X10^3/uL (2.7-7.7); Neutrophil % 55.7 % (47-70); Platelet Count 268 K/mm3 (150-450); RBC Distribution Width CV 14.8 % (11.6-14.6); RBC Distribution Width SD 45.2 fl (35.1-43.9); Red Blood Count 4.11 M/mm3 (4.2-5.4); White Blood Count 7.9 K/mm3 (4.4-11.0)
[2019-08-31 06:58] LABS: Red Blood Cells-Urine 0-5 SEEN /hpf (0-5); Squamous Epithelial Cells - UA 0-5 SEEN /hpf (5-10); White Blood Cells 0 SEEN /hpf (0-5)
--- NOTE | 2019-08-31 07:27 | PCM.PN.HOSP ---
Patient Problems: Active and Suspected Problems Infection of toe (Acute) SEUN (acute kidney injury) (Acute) Osteomyelitis of second toe of right foot (Suspected) Reason for Visit: Follow-up right second toe possible osteomyelitis and acute kidney injury Subjective: No fever or chills. Hemodynamically stable. Vitals/I&O's: Vital Signs Temp Pulse Resp BP Pulse Ox 97.5 F L 71 16 87/51 L 92 08/31/19 06:03 08/31/19 06:03 08/31/19 06:03 08/31/19 06:03 08/31/19 06:03 Oxygen Delivery Method Room Air Weight: 183 lb 13.848 oz Body Mass Index (BMI) 30.6 Finger Stick Blood Glucose 229 Intake and Output for Last 24 Hours 08/29/19 08/30/19 08/31/19 23:59 23:59 23:59 Intake Total 2079. / 2079.00 1966.67 / 1966.67 Output Total 700 / 700 Balance 2079.00 / 2079.00 1266.67 / 1266.67 General: Alert, Oriented x3, Cooperative HEENT: Atraumatic, PERRLA, EOMI, Normocephalic Neck: Supple, No JVD, Negative Carotid Bruits Lungs: Clear to auscultation, Normal air movement, No rhonchi, No wheeze, No rales Cardiovascular: Regular rate, Regular Rhythm, Normal S1, Normal S2, No murmurs Abdomen: Bowel Sounds Present, Soft, Non Tender, Non-Distended Extremities: Capillary Refill Less than 3 Seconds, Edema, - - Right hallux amputation Skin: No rashes, No breakdown, Ulcer/ Wound - Partial second toe amputation. Musculoskeletal: Arthritic Changes, Tenderness - Of right second toe Neurological: Cranial nerves II-XII grossly intact, Deep Tendon Reflexes 2+/4 and Symmetrical, Neuro grossly intact Psych/Mental Status: Normal Affect, Appropriate Laboratory Results 08/30/19 17:10: WBC 12.4 H, RBC 4.98, Hgb 13.3, Hct 41.1, MCV 82.5, MCH 26.7 L, MCHC 32.4, RDW Std Deviation 44.2 H, RDW Coeff of Brea 14.8 H, Plt Count 350, MPV 9.8, Immature Gran % (Auto) 0.300, Neut % (Auto) 71.4 H, Lymph % (Auto) 21.4, [place] % (Auto) 5.1, Eos % (Auto) 1.3, Baso % (Auto) 0.5, Absolute Neuts (auto) 8.8 H, Absolute Lymphs (auto) 2.65, Nucleated RBC % 0 08/30/19 17:10: Sodium 136, Potassium 3.6, Chloride 101, Carbon Dioxide 28.0, Anion Gap 7, BUN 27 H, Creatinine 1.84 H, Estim Creat Clear Calc 34.01, Est GFR (MDRD) Af Amer 38 L, Est GFR (MDRD) Non-Af 31 L, BUN/Creatinine Ratio 14.7, Glucose 294 H, Calcium 9.2, Total Bilirubin 0.60, AST 19, ALT 25, Alkaline Phosphatase 114, Total Protein 7.1, Albumin 3.6, Globulin 3.5, Albumin/Globulin Ratio 1.0 08/30/19 17:10: Lactic Acid 1.5 08/30/19 17:10: ESR 10 08/30/19 17:10: C-React Prot Ext Range < 2.90 08/30/19 17:10: Hemoglobin A1c 12.0 H 08/30/19 20:05: S.aureus Protein A PCR NEGATIVE, MRSA (PCR) Negative 08/30/19 21:13: POC Glucose 323 H 08/31/19 05:55: WBC 7.9, RBC 4.11 L, Hgb 10.9 L, Hct 34.6 L, MCV 84.2, MCH 26.5 L, MCHC 31.5 L, RDW Std Deviation 45.2 H, RDW Coeff of Brea 14.8 H, Plt Count 268, MPV 10.3, Immature Gran % (Auto) 0.500, Neut % (Auto) 55.7, Lymph % (Auto) 33.4, [place] % (Auto) 7.5, Eos % (Auto) 2.3, Baso % (Auto) 0.6, Absolute Neuts (auto) 4.4, Absolute Lymphs (auto) 2.63, Nucleated RBC % 0 08/31/19 05:55: Sodium Pending, Potassium Pending, Chloride Pending, Carbon Dioxide Pending, Anion Gap Pending, BUN Pending, Creatinine Pending, Est GFR (MDRD) Af Amer Pending, Est GFR (MDRD) Non-Af Pending, BUN/Creatinine Ratio Pending, Glucose Pending, Calcium Pending 08/31/19 06:18: POC Glucose 315 H 08/31/19 06:20: Urine Color Yellow, Urine Clarity Clear, Urine pH 6.0, Ur Specific [place] 1.015, Urine Protein Negative, Urine Glucose (UA) 1000 H, Urine Ketones Negative, Urine Occult Blood 250 H, Urine Nitrite Negative, Urine Bilirubin Negative, Urine Urobilinogen Normal, Ur Leukocyte Esterase Negative, Urine RBC 0-5 SEEN, Urine WBC 0 SEEN, Ur Squamous Epith Cells 0-5 SEEN, Urine Bacteria 0 SEEN, Urine Mucus 0 SEEN Current Medications Acetaminophen (Tylenol) 650 mg PO Q6H PRN PRN PRN Reason: Pain Score 1-3/Temp > 100.7 F Albuterol Sulfate (Ventolin Aerosols) 2.5 mg INHALATION Q4H PRN PRN PRN Reason: Shortness of breath, wheezing Atorvastatin Calcium (Lipitor) 80 mg PO QHS [facility] Last Admin: 08/30/19 21:32 Dose: 80 mg Documented by: Budesonide (Pulmicort Aerosol) 0.5 mg INHALATION BID PRN PRN Reason: ALLERGIES Dextrose (D50w Syringe) 0 gm IV X1 PRN; Protocol PRN Reason: Hypoglycemia Duloxetine HCl (Cymbalta) 60 mg PO QHS [facility] Last Admin: 08/30/19 21:32 Dose: 60 mg Documented by: Duloxetine HCl (Cymbalta) 30 mg PO DAILY [facility] Famotidine (Pepcid) 20 mg PO DAILY [facility] Glucagon () 1 mg IM .X1 PRN PRN Reason: Hypoglycemia Heparin Sodium (Porcine) (Heparin Na) 5,000 unit SC Q8 [facility] Last Admin: 08/31/19 06:18 Dose: 5,000 unit Documented by: Hydroxyzine Pamoate (Vistaril Pamoate Capsule) 50 mg PO QHS [facility] Last Admin: 08/30/19 20:23 Dose: 50 mg Documented by: Sodium Chloride () 1,000 mls @ 125 mls/hr IV .Q8H [facility] Last Admin: 08/31/19 06:18 Dose: 125 mls/hr Documented by: Vancomycin HCl 1,250 mg/ (Sodium Chloride) 275 mls @ 167 mls/hr IV Q24H [facility] Insulin Glargine (Lantus (Bkc)) 50 units SC BID [facility] Last Admin: 08/30/19 21:33 Dose: 50 u Documented by: Insulin Human Lispro (Humalog Kwikpen (Bkc)) 0 unit SC ACHS [facility]; Protocol Last Admin: 08/31/19 06:19 Dose: 5 u Documented by: Levothyroxine Sodium (Synthroid) 112 mcg PO DAILY@0600 [facility] Last Admin: 08/31/19 06:19 Dose: 112 mcg Documented by: Meclizine HCl (Antivert) 25 mg PO TID PRN PRN Reason: DIZZINESS Nutritional Formula (Rip - [facility] Flavor) 1 packet PO BIDCM [facility] Nutritional Formula (Lactose Free) (Glucerna Shake) 120 ml PO 4X/DAY [facility] Last Admin: 08/30/19 21:37 Dose: 120 ml Documented by: Ondansetron HCl (Zofran) 4 mg IV Q8H PRN PRN PRN Reason: NAUSEA/VOMITING Pregabalin (Lyrica) 100 mg PO BID [facility] Last Admin: 08/30/19 21:32 Dose: 100 mg Documented by: Sodium Chloride () 10 - 40 ml IV UD PRN PRN Reason: SALINE FLUSH Trazodone HCl (Desyrel) 50 mg PO QHS [facility] Last Admin: 08/30/19 21:32 Dose: 50 mg Documented by: STROKE Vital Signs/Narrative: Vital Signs Temp Pulse Resp BP Pulse Ox 08/31/19 06:03 97.5 F L 71 16 87/51 L 92 08/31/19 04:08 97.7 F L 68 18 84/55 L 92 Medical Necessity - Tobacco Use Smoking Status: Current every day smoker Tobacco Use: Cigarettes Assessment/Plan All Active Problems Infection of toe (Acute) SEUN (acute kidney injury) (Acute) This is a 48 years old female patient who was admitted with right second toe swelling and erythema and was found to have acute kidney injury as well as suspected acute osteomyelitis of the right second toe in context of recent history of osteomyelitis of the right second toe status post debridement and partial amputation on May,. Patient is admitted on [facility] floor. #1 suspected recurrent osteomyelitis of the right second toe: Foot x-ray shows no soft tissue emphysema, foreign body, acute fracture/dislocation. Periosteal reaction with previous partial toe amputation of second toe reported on x-ray. MRI of right foot is ordered. As per industrial recruiter, she had vascular studies ordered 2019 done which showed good perfusion up to ankle level. Digital brachial index was not done because of hallux amputation. Maintain offloading of left lower extremity. 08/31: No fever/chill. On IV vancomycin. MRSA nasal screen negative. CRP and ESR normal. Patient was seen by industrial recruiter. On IV vancomycin. In May 2019 when she had partial amputation of right second toe she completed course of Levaquin and Flagyl. Monitor Vanco trough and level. Pharmacist consulted. #2 acute kidney injury with hypokalemia: Baseline kidney function is normal. On admission, BUN was 27 and creatinine was 1.84, creatinine was 0.67; 1 week ago. 08/31: BUN/creatinine getting better, 25/1.08. Mild hypokalemia, potassium being replaced. Lisinopril and HCTZ on hold. Monitor intake and output. Monitor BMP and electrolytes. #3 uncontrolled type 2 diabetes mellitus: Hemoglobin A1c was 10.8 on April,. 08/31: A1c 12. Glucose in BMP 334, A1c 12.0. Started on Lantus 10 units subcutaneous twice daily. Lantus dose increased to 60 units twice daily. On high-dose sliding scale. Patient was on Levemir 50 units twice daily; increase by PCP 4 days prior to admission. Patient was also on Trulicity. On Accu-Cheks before meals and at bedtime and cover with Humalog sliding scale. Patient also started on 15 units Humalog 3 times daily before meals. #4 hypothyroidism: Stable, continue levothyroxine. #5 anxiety/depression: Continue Cymbalta, Vistaril and trazodone. #6 peripheral neuropathy: Stable, continue Lyrica. #7 M?ni?re's disease/chronic vertigo: Stable, continue meclizine as needed. #8 DVT prophylaxis: Subcu heparin. Microbiology Past 72 Hours 08/30/19 20:05 Wound Drainage - Aerobic & Anaerobic Swabs Gram Stain - Final 08/30/19 20:05 Wound Drainage - Aerobic & Anaerobic Swabs Wound Culture - Preliminary Gram Positive Cocci Laboratory Results 08/30/19 17:10: WBC 12.4 H, RBC 4.98, Hgb 13.3, Hct 41.1, MCV 82.5, MCH 26.7 L, MCHC 32.4, RDW Std Deviation 44.2 H, RDW Coeff of Brea 14.8 H, Plt Count 350, MPV 9.8, Immature Gran % (Auto) 0.300, Neut % (Auto) 71.4 H, Lymph % (Auto) 21.4, [place] % (Auto) 5.1, Eos % (Auto) 1.3, Baso % (Auto) 0.5, Absolute Neuts (auto) 8.8 H, Absolute Lymphs (auto) 2.65, Nucleated RBC % 0 08/30/19 17:10: Sodium 136, Potassium 3.6, Chloride 101, Carbon Dioxide 28.0, Anion Gap 7, BUN 27 H, Creatinine 1.84 H, Estim Creat Clear Calc 34.01, Est GFR (MDRD) Af Amer 38 L, Est GFR (MDRD) Non-Af 31 L, BUN/Creatinine Ratio 14.7, Glucose 294 H, Calcium 9.2, Total Bilirubin 0.60, AST 19, ALT 25, Alkaline Phosphatase 114, Total Protein 7.1, Albumin 3.6, Globulin 3.5, Albumin/Globulin Ratio 1.0 08/30/19 17:10: Lactic Acid 1.5 08/30/19 17:10: ESR 10 08/30/19 17:10: C-React Prot Ext Range < 2.90 08/30/19 17:10: Hemoglobin A1c 12.0 H 08/30/19 20:05: S.aureus Protein A PCR NEGATIVE, MRSA (PCR) Negative 08/30/19 21:13: POC Glucose 323 H 08/31/19 05:55: WBC 7.9, RBC 4.11 L, Hgb 10.9 L, Hct 34.6 L, MCV 84.2, MCH 26.5 L, MCHC 31.5 L, RDW Std Deviation 45.2 H, RDW Coeff of Brea 14.8 H, Plt Count 268, MPV 10.3, Immature Gran % (Auto) 0.500, Neut % (Auto) 55.7, Lymph % (Auto) 33.4, [place] % (Auto) 7.5, Eos % (Auto) 2.3, Baso % (Auto) 0.6, Absolute Neuts (auto) 4.4, Absolute Lymphs (auto) 2.63, Nucleated RBC % 0 08/31/19 05:55: Sodium 138, Potassium 3.1 L, Chloride 106, Carbon Dioxide 25.0, Anion Gap 7, BUN 25 H, Creatinine 1.08 H, Estim Creat Clear Calc 57.95, Est GFR (MDRD) Af Amer 70, Est GFR (MDRD) Non-Af 58 L, BUN/Creatinine Ratio 23.1 H, Glucose 334 H, Calcium 7.8 L 08/31/19 05:55: Magnesium Pending 08/31/19 06:18: POC Glucose 315 H 08/31/19 06:20: Urine Color Yellow, Urine Clarity Clear, Urine pH 6.0, Ur Specific [place] 1.015, Urine Protein Negative, Urine Glucose (UA) 1000 H, Urine Ketones Negative, Urine Occult Blood 250 H, Urine Nitrite Negative, Urine Bilirubin Negative, Urine Urobilinogen Normal, Ur Leukocyte Esterase Negative, Urine RBC 0-5 SEEN, Urine WBC 0 SEEN, Ur Squamous Epith Cells 0-5 SEEN, Urine Bacteria 0 SEEN, Urine Mucus 0 SEEN 08/31/19 11:06: POC Glucose 203 H L Clinical Impression(s) from Imaging Studies Foot X-Ray 08/30/19 16:54 IMPRESSION: 1. Prominent periosteal reaction of the second proximal phalanx. This may be due to prior surgery or trauma, but is concerning for infection. Consider MRI of the foot with contrast to rule out osteomyelitis. Chest X-Ray 08/30/19 17:35 IMPRESSION: Normal x-ray examination of the chest. Code Visit Inpatient E&M: 39726 Subs Hosp L3
[2019-08-31 07:55] LABS: Anion Gap 7 (5-15); BUN 25 mg/dL (7-18); BUN/Creat Ratio 23.1 RATIO (10-20); Calcium,Total 7.8 mg/dL (8.5-10.1); Chloride 106 mmol/L (98-107); Creatinine, Serum 1.08 mg/dL (0.55-1.02); EST Glomerular Filtration Rate 58 mL/min (>60); Est Glom Filt Rate - Afr Amer 70 mL/min (>60); Estimated Creatinine Clearance 57.95 ml/min; Glucose 334 mg/dL (74-106); Potassium 3.1 mmol/L (3.5-5.1); Sodium Level 138 mmol/L (136-145)
[2019-08-31] MEDS: DULoxetine Hcl 30 MG Capsule PO (09:10)
[2019-08-31] MEDS: Famotidine 20 MG Tablet PO (09:11)
[2019-08-31] MEDS: Pregabalin 50 MG Capsule 100 MG PO ×2 (09:15→20:24)
[2019-08-31 11:25] LABS: Bedside Glucose 203 mg/dL (70-110)
--- NOTE | 2019-08-31 11:40 | CASEMGMT ---
Social Work Note SW updated by Surface Supervisor that pt is having difficulty with getting appropriate food for diabetic diet and doesn't have the means to buy the food. SW met with pt and introduced self and role at [facility]. Pt is alert and orientated x3. Pt states that he has everything she needs and denies needing any resources or assistance. Pt states that she is current with [facility] for housing assistance and also has food stamps. SW offered again to provide pt with additional information but pt denied, again stating she has everything she needs and denied any issues with obtaining supplies. Chica Torres SUBSURFACE AUGMENTEE ELINT OPERATOR, [employer]
--- NOTE | 2019-08-31 13:08 | CASEMGMT ---
RN CM Assessment Introduced role of RN CM to patient.? Patient is alert, oriented and able?to participate in RN CM Assessment. ?Care providers, pharmacy, and demographics verified. Presentation: presented to the emergency room because of vague symptoms of weakness and fatigue. And although she was young but she was not interested in providing detailed history. Her fianc? was at the bedside and he has been intervening given history throughout the encounter. The patient came to the emergency room because of weakness and fatigue, generalized, nonspecific and without other associated symptoms. Also, she complained of swelling and mild erythema of the right second toe which has been going on for several days and she is not sure if she bumped her right foot on something or not. She denies fever chills. She denied open wound or drainage. Patient underwent debridement and partial amputation of the second right toe for osteomyelitis on May, and she was discharged on Levaquin and Flagyl and she completed her course of antibiotics. Admit Dx: SEUN, suspected Rt 2nd toe osteomyelitis Re-Admit: No, Inpt 06/12-06/18/19 for diabetic foot infection, Dc'd to [place] (patient chose as she could smoke at that facility) Barriers/Issues: Patient states that she is currently staying with a friend while they look for a place. States that the address that is listed on demographics is a mailing address. PCP: Shirley Garcia Specialists: [facility]- Dr Acuña Preferred Pharmacy: [facility] Insurance: [facility] Benefit: Yes? ?LNOK: Mother Breanna Martínez LW/HPOA: None, states wants information, this Cm provided patient advanced directive information with SW rack card. Living Arrangements:? Lives in a 2SH with approx 20-25 steps to enter through the back. Staying at a friends house until her and sig. other fine a place. ADL?s: Independent with ambulation and ADLs Transportation: [place] Bus/Transit DME: None HHC: None SNF: Past at [facility] Goal: Home and does not think will have any needs. Left a In network HHC list along with [facility] list at bedside in case either is recommended or felt is needed. Denies any other questions, concerns, or issues with DC planning at this time. Aware CM remains available for any emerging needs. DC PLAN: Home with possible [facility] Ab[facility]. Liz Power RNCM
[2019-08-31] MEDS: 0.9% Saline Lock 10 ML Syringe IV (13:12)
[2019-08-31 14:40] LABS: Magnesium 1.9 mg/dL (1.6-2.6)
--- NOTE | 2019-08-31 14:41 | NURSING ---
wound photo: right 2nd toe
[2019-08-31] MEDS: Glucerna Shake 120 ML LIQUID PO (14:47)
--- NOTE | 2019-08-31 16:06 | PN_ITS ---
Patient Problems: Active and Suspected Problems Infection of toe (Acute) SEUN (acute kidney injury) (Acute) Osteomyelitis of second toe of right foot (Suspected) Subjective: This 48 year old female with diabetes was seen bedside for follow up of right foot infection. she denies foot pain. She denies fever, chills, nausea, vomiting , loss of appetite. Upon arrival she was found with her sneakers and jacket on and reports she was going to go out side for a walk. - Physical Exam Vitals/I&O's: Vital Signs Temp Pulse Resp BP Pulse Ox 97.7 F L 82 18 120/74 97 08/31/19 14:52 08/31/19 14:52 08/31/19 14:52 08/31/19 14:52 08/31/19 14:52 Oxygen Delivery Method Room Air Weight: 83.4 kg Body Mass Index (BMI) 30.6 Finger Stick Blood Glucose 229 Intake and Output for Last 24 Hours 08/29/19 08/30/19 08/31/19 23:59 23:59 23:59 Intake Total 2080.00 / 2080.00 3416.67 / 3416.67 Output Total 850 / 850 Balance 2080.00 / 2080.00 2566.67 / 2566.67 General: Alert, Oriented x3, Cooperative Extremities: Capillary Refill Less than 3 Seconds, No Calf Tenderness - negative clem and pichardo signs bilateral, Diminished Peripheral Pulses, Edema - reduced right foot Skin: Ulcer/ Wound - granular base small ulcer tip of partial 2nd toe amputation. no purulence, erythema, streaking noted. Her erythema has resolved. Still have some bulbous shape of her second partial toe amputation site but this is reduced in size compared to yesterday. There are no other open lesions noted to the right lower extremity, maceration, or necrosis. Musculoskeletal: No Tenderness to Palpation of Joints or Extremities, Muscle Wasting, - - Hallux amputation right foot and partial toe amputation Neurological: - - Lack of epicritic sensation light touch consistent with neuropathy status Psych/Mental Status: Normal Affect, Appropriate Microbiology Past 72 Hours 08/30/19 20:05 Wound Drainage - Aerobic & Anaerobic Swabs Gram Stain - Final 08/30/19 20:05 Wound Drainage - Aerobic & Anaerobic Swabs Wound Culture - Preliminary Gram Positive Cocci Laboratory Results 08/30/19 17:10: WBC 12.4 H, RBC 4.98, Hgb 13.3, Hct 41.1, MCV 82.5, MCH 26.7 L, MCHC 32.4, RDW Std Deviation 44.2 H, RDW Coeff of Brea 14.8 H, Plt Count 350, MPV 9.8, Immature Gran % (Auto) 0.300, Neut % (Auto) 71.4 H, Lymph % (Auto) 21.4, [place] % (Auto) 5.1, Eos % (Auto) 1.3, Baso % (Auto) 0.5, Absolute Neuts (auto) 8.8 H, Absolute Lymphs (auto) 2.65, Nucleated RBC % 0 08/30/19 17:10: Sodium 136, Potassium 3.6, Chloride 101, Carbon Dioxide 28.0, Anion Gap 7, BUN 27 H, Creatinine 1.84 H, Estim Creat Clear Calc 34.01, Est GFR (MDRD) Af Amer 38 L, Est GFR (MDRD) Non-Af 31 L, BUN/Creatinine Ratio 14.7, Glucose 294 H, Calcium 9.2, Total Bilirubin 0.60, AST 19, ALT 25, Alkaline Ph osphatase 114, Total Protein 7.1, Albumin 3.6, Globulin 3.5, Albumin/Globulin Ratio 1.0 08/30/19 17:10: Lactic Acid 1.5 08/30/19 17:10: ESR 10 08/30/19 17:10: C-React Prot Ext Range < 2.90 08/30/19 17:10: Hemoglobin A1c 12.0 H 08/30/19 20:05: S.aureus Protein A PCR NEGATIVE, MRSA (PCR) Negative 08/30/19 21:13: POC Glucose 323 H 08/31/19 05:55: WBC 7.9, RBC 4.11 L, Hgb 10.9 L, Hct 34.6 L, MCV 84.2, MCH 26.5 L, MCHC 31.5 L, RDW Std Deviation 45.2 H, RDW Coeff of Brea 14.8 H, Plt Count 268, MPV 10.3, Immature Gran % (Auto) 0.500, Neut % (Auto) 55.7, Lymph % (Auto) 33.4, [place] % (Auto) 7.5, Eos % (Auto) 2.3, Baso % (Auto) 0.6, Absolute Neuts (auto) 4.4, Absolute Lymphs (auto) 2.63, Nucleated RBC % 0 08/31/19 05:55: Sodium 138, Potassium 3.1 L, Chloride 106, Carbon Dioxide 25.0, Anion Gap 7, BUN 25 H, Creatinine 1.08 H, Estim Creat Clear Calc 57.95, Est GFR (MDRD) Af Amer 70, Est GFR (MDRD) Non-Af 58 L, BUN/Creatinine Ratio 23.1 H, Glucose 334 H, Calcium 7.8 L 08/31/19 05:55: Magnesium 1.9 08/31/19 06:18: POC Glucose 315 H 08/31/19 06:20: Urine Color Yellow, Urine Clarity Clear, Urine pH 6.0, Ur Specific [place] 1.015, Urine Protein Negative, Urine Glucose (UA) 1000 H, Urine Ketones Negative, Urine Occult Blood 250 H, Urine Nitrite Negative, Urine Bilirubin Negative, Urine Urobilinogen Normal, Ur Leukocyte Esterase Negative, Urine RBC 0-5 SEEN, Urine WBC 0 SEEN, Ur Squamous Epith Cells 0-5 SEEN, Urine Bacteria 0 SEEN, Urine Mucus 0 SEEN 08/31/19 11:06: POC Glucose 203 H Current Medications Acetaminophen (Tylenol) 650 mg PO Q6H PRN PRN PRN Reason: Pain Score 1-3/Temp > 100.7 F Albuterol Sulfate (Ventolin Aerosols) 2.5 mg INHALATION Q4H PRN PRN PRN Reason: Shortness of breath, wheezing Atorvastatin Calcium (Lipitor) 80 mg PO QHS [facility] Last Admin: 08/30/19 21:32 Dose: 80 mg Documented by: Budesonide (Pulmicort Aerosol) 0.5 mg INHALATION BID PRN PRN Reason: ALLERGIES Dextrose (D50w Syringe) 0 gm IV X1 PRN; Protocol PRN Reason: Hypoglycemia Duloxetine HCl (Cymbalta) 60 mg PO QHS [facility] Last Admin: 08/30/19 21:32 Dose: 60 mg Documented by: Duloxetine HCl (Cymbalta) 30 mg PO DAILY [facility] Last Admin: 08/31/19 09:10 Dose: 30 mg Documented by: Famotidine (Pepcid) 20 mg PO DAILY [facility] Last Admin: 08/31/19 09:11 Dose: 20 mg Documented by: Glucagon () 1 mg IM .X1 PRN PRN Reason: Hypoglycemia Heparin Sodium (Porcine) (Heparin Na) 5,000 unit SC Q8 [facility] Last Admin: 08/31/19 14:47 Dose: 5,000 unit Documented by: Hydroxyzine Pamoate (Vistaril Pamoate Capsule) 50 mg PO QHS [facility] Last Admin: 08/30/19 20:23 Dose: 50 mg Documented by: Sodium Chloride () 1,000 mls @ 125 mls/hr IV .Q8H [facility] Last Admin: 08/31/19 15:02 Dose: 125 mls/hr Documented by: Vancomycin HCl 1,250 mg/ (Sodium Chloride) 275 mls @ 167 mls/hr IV Q24H [facility] Insulin Glargine (Lantus (Bkc)) 60 units SC BID [facility] Insulin Human Lispro (Humalog Kwikpen (Bkc)) 0 unit SC ACHS [facility]; Protocol Last Admin: 08/31/19 13:12 Dose: 2 u Documented by: Insulin Human Lispro (Humalog Kwikpen (Bkc)) 15 unit SC TIDAC [facility] Levothyroxine Sodium (Synthroid) 112 mcg PO DAILY@0600 [facility] Last Admin: 08/31/19 06:19 Dose: 112 mcg Documented by: Meclizine HCl (Antivert) 25 mg PO TID PRN PRN Reason: DIZZINESS Nicotine (Nicoderm Cq (Pbkc)) 21 mg TRANSDERM. DAILY [facility] Last Admin: 08/31/19 15:47 Dose: 21 mg Documented by: Nutritional Formula (Rip - [place] Flavor) 1 packet PO BIDCM [facility] Last Admin: 08/31/19 09:10 Dose: 1 packet Documented by: Nutritional Formula (Lactose Free) (Glucerna Shake) 120 ml PO 4X/DAY [facility] Last Admin: 08/31/19 14:47 Dose: 120 ml Documented by: Ondansetron HCl (Zofran) 4 mg IV Q8H PRN PRN PRN Reason: NAUSEA/VOMITING Potassium Chloride (K-Dur) 40 meq PO BIDCM [facility] Stop: 08/31/19 17:01 Last Admin: 08/31/19 14:47 Dose: 40 meq Documented by: Pregabalin (Lyrica) 100 mg PO BID [facility] Last Admin: 08/31/19 09:15 Dose: 100 mg Documented by: Sodium Chloride () 10 - 40 ml IV UD PRN PRN Reason: SALINE FLUSH Last Admin: 08/31/19 13:12 Dose: 10 ml Documented by: Trazodone HCl (Desyrel) 50 mg PO QHS [facility] Last Admin: 08/30/19 21:32 Dose: 50 mg Documented by: Medical Necessity - Tobacco Use Smoking Status: Current every day smoker Tobacco Use: Cigarettes Assessment/Plan All Active Problems Infection of toe (Acute) SEUN (acute kidney injury) (Acute) Right foot cellulitis Right second toe amputation at partial amputation stump site Osteomyelitis suspected versus reparative periosteal thickening secondary to biomechanical forces of proximal phalanx given hallux amputation Uncontrolled diabetes mellitus with neuropathy Acute kidney injury Small vessel disease suspected Smoker Other comorbidities I reviewed and discussed her case this afternoon. Her x-rays were reviewed which demonstrated no soft tissue emphysema, foreign body, acute fracture dislocation. There is some periosteal thickening noted to the second toe proximal phalanx and previous partial toe amputation is noted. This finding was not present when comparing to her films taken approximately 3 months ago. He does have mild leukocytosis of 12.4 that is now reduced to 7.9, sedimentation rate of 10 and normal C-reactive protein level. She does have some clinical findings consistent with cellulitis in the concern is that there is underlying osteomyelitis. These x-ray findings could be consistent with a bone infection or just increased mechanical stresses to the toe stump site. I recommended an M RI and this has been completed. There appears to be increased intensity to the 2nd proximal phalanx on STIR and T2 which is concern of osteo. The radiologist interpretation is still pending. Her dressing was reapplied. We discussed treatment options pending her response to continue IV broad spectrum antibiotics of vancomycin and Zosyn versus surgical options such as completing the toe amputation. I also recommend an infectious disease consultation given her comorbidities and history of impaired healing potential. She is not amendable to have an amputation at this time and is amendable to proceed with seeing how she does with wound care and antibiotics. I also previously reviewed her noninvasive vascular studies obtained earlier this year and appears she has normal perfusion to the ankle level. Digital brachial indices were not obtained given she has a right hallux amputation. I am concerned about some form of vascular disease including small vessel disease of the toes given her smoking history and her reported claudication symptoms. I do recommend a vascular surgery referral on an inpatient versus outpatient basis given her delayed healing. We discussed compliance with offloading and I recommend she returns to a surgical shoe and performs heel weightbearing activity only. Compliance was reviewed about this again today. Smoking cessation, improved glycemic control, and nutritional supplementation were recommended to optimize healing. Medical management and DVT prophylaxis per primary team is greatly appreciated. I will continue to follow her closely one house. Please do not hesitate to call if you have any questions. Marge Martin DPM, [facility] [phone]
[2019-08-31] MEDS: Insulin Lispro 100 UNIT/ML INSULN.PEN 15 UNIT SC (16:50)
[2019-08-31 17:00] LABS: Bedside Glucose 268 mg/dL (70-110)
[2019-08-31] MEDS: traZODone 50 MG Tablet PO (20:23)
[2019-08-31] MEDS: Acetaminophen 325 MG Tablet 650 MG PO (20:23)
[2019-08-31] MEDS: DULoxetine Hcl 30 MG Capsule 60 MG PO (20:23)
[2019-08-31] MEDS: hydrOXYzine PAM 25 MG Capsule 50 MG PO (20:23)
[2019-08-31] MEDS: Atorvastatin Calcium 80 MG Tablet PO (20:24)
[2019-08-31 20:36] LABS: Bedside Glucose 164 mg/dL (70-110)
[2019-09-01] MEDS: 0.9% Normal Saline 1,000 ML 125 ML IV ×2 (01:55→10:15)
[2019-09-01 02:05] VITALS: BP 131/74; PULSE 77; RESP 16; TEMP 36.6; O2SAT 96
[2019-09-01] MEDS: Heparin Injection (Vial) 5,000 UNIT/ML VIAL 5000 UNIT SC ×3 (05:25→20:44)
[2019-09-01] MEDS: Levothyroxine 112 MCG Tablet PO (05:25)
[2019-09-01] MEDS: Acetaminophen 325 MG Tablet 650 MG PO ×3 (05:29→17:53)
[2019-09-01] MEDS: Insulin Lispro 100 UNIT/ML INSULN.PEN SC ×3 (06:42→16:46)
[2019-09-01] MEDS: Insulin Lispro 100 UNIT/ML INSULN.PEN 15 UNIT SC (06:43)
[2019-09-01 06:44] LABS: Anion Gap 4 (5-15); BUN 22 mg/dL (7-18); BUN/Creat Ratio 33.5 RATIO (10-20); Calcium,Total 7.8 mg/dL (8.5-10.1); Chloride 110 mmol/L (98-107); Creatinine, Serum 0.66 mg/dL (0.55-1.02); EST Glomerular Filtration Rate 102 mL/min (>60); Est Glom Filt Rate - Afr Amer 124 mL/min (>60); Estimated Creatinine Clearance 94.82 ml/min; Glucose 229 mg/dL (74-106); Potassium 3.7 mmol/L (3.5-5.1); Sodium Level 139 mmol/L (136-145)
[2019-09-01 06:50] LABS: Bedside Glucose 223 mg/dL (70-110)
[2019-09-01 07:32] VITALS: O2SAT 95
--- NOTE | 2019-09-01 09:40 | PN_ITS ---
Patient Problems: Active and Suspected Problems Infection of toe (Acute) SEUN (acute kidney injury) (Acute) Osteomyelitis of second toe of right foot (Suspected) Reason for Visit: Follow-up for right toe ulcer. Patient also having diarrhea since yesterday. Objective: Patient had one loose bowel movement yesterday and 3 today. Patient not on laxatives/stool softeners. Vitals/I&O's: Vital Signs Temp Pulse Resp BP Pulse Ox 97.9 F 77 16 131/74 H 96 09/01/19 02:05 09/01/19 02:05 09/01/19 02:05 09/01/19 02:05 09/01/19 02:05 Oxygen Delivery Method Room Air Weight: 183 lb 13.848 oz Body Mass Index (BMI) 30.6 Finger Stick Blood Glucose 229 Intake and Output for Last 24 Hours 08/30/19 08/31/19 09/01/19 23:59 23:59 23:59 Intake Total 0.00 / 0.00 5291.67 / 5771.67 780 / 780 Output Total 850 / 850 Balance 208.00 / 2080.00 4441.67 / 4921.67 780 / 780 General: Alert, Oriented x3, Cooperative HEENT: Atraumatic, PERRLA, EOMI, Normocephalic Neck: Supple, No JVD, Negative Carotid Bruits Lungs: Clear to auscultation, Normal air movement, No rhonchi, No wheeze, No rales Cardiovascular: Regular rate, Regular Rhythm, Normal S1, Normal S2, No murmurs Abdomen: Bowel Sounds Present, Soft, Non Tender, Non-Distended Extremities: No edema, Capillary Refill Less than 3 Seconds Skin: No rashes, No breakdown, Ulcer/ Wound - Right second toe tiny ulcer. Wound photo reviewed Musculoskeletal: No Tenderness to Palpation of Joints or Extremities, Arthritic Changes, Tenderness Neurological: Cranial nerves II-XII grossly intact Psych/Mental Status: Normal Affect, Appropriate Microbiology Past 72 Hours 08/30/19 20:05 Wound Drainage - Aerobic & Anaerobic Swabs Gram Stain - Final 08/30/19 20:05 Wound Drainage - Aerobic & Anaerobic Swabs Wound Culture - Preliminary Gram Positive Cocci Laboratory Results 08/31/19 05:55: Magnesium 1.9 08/31/19 11:06: POC Glucose 203 H 08/31/19 16:49: POC Glucose 268 H 08/31/19 20:18: POC Glucose 164 H 09/01/19 05:58: Sodium 139, Potassium 3.7, Chloride 110 H, Carbon Dioxide 25.0, Anion Gap 4 L, BUN 22 H, Creatinine 0.66, Estim Creat Clear Calc 94.82, Est GFR (MDRD) Af Amer 124, Est GFR (MDRD) Non-Af 102, BUN/Creatinine Ratio 33.5 H, Glucose 229 H, Calcium 7.8 L 09/01/19 06:41: POC Glucose 223 H Current Medications Acetaminophen (Tylenol) 650 mg PO Q6H PRN PRN PRN Reason: Pain Score 1-3/Temp > 100.7 F Last Admin: 09/01/19 05:29 Dose: 650 mg Documented by: Albuterol Sulfate (Ventolin Aerosols) 2.5 mg INHALATION Q4H PRN PRN PRN Reason: Shortness of breath, wheezing Atorvastatin Calcium (Lipitor) 80 mg PO QHS [facility] Last Admin: 08/31/19 20:24 Dose: 80 mg Documented by: Budesonide (Pulmicort Aerosol) 0.5 mg INHALATION BID PRN PRN Reason: ALLERGIES Dextrose (D50w Syringe) 0 gm IV X1 PRN; Protocol PRN Reason: Hypoglycemia Duloxetine HCl (Cymbalta) 60 mg PO QHS [facility] Last Admin: 08/31/19 20:23 Dose: 60 mg Documented by: Duloxetine HCl (Cymbalta) 30 mg PO DAILY [facility] Last Admin: 08/31/19 09:10 Dose: 30 mg Documented by: Famotidine (Pepcid) 20 mg PO DAILY [facility] Last Admin: 08/31/19 09:11 Dose: 20 mg Documented by: Glucagon () 1 mg IM .X1 PRN PRN Reason: Hypoglycemia Heparin Sodium (Porcine) (Heparin Na) 5,000 unit SC Q8 [facility] Last Admin: 09/01/19 05:25 Dose: 5,000 unit Documented by: Hydroxyzine Pamoate (Vistaril Pamoate Capsule) 50 mg PO QHS [facility] Last Admin: 08/31/19 20:23 Dose: 50 mg Documented by: Sodium Chloride () 1,000 mls @ 125 mls/hr IV .Q8H [facility] Last Admin: 09/01/19 01:55 Dose: 125 mls/hr Documented by: Vancomycin HCl 1,250 mg/ (Sodium Chloride) 275 mls @ 167 mls/hr IV Q24H [facility] Last Infusion: 08/31/19 21:51 Dose: Infused Documented by: Insulin Glargine (Lantus (Bkc)) 60 units SC BID [facility] Last Admin: 08/31/19 20:20 Dose: 50 u Documented by: Insulin Human Lispro (Humalog Kwikpen (Bkc)) 0 unit SC ACHS [facility]; Protocol Last Admin: 09/01/19 06:42 Dose: 4 u Documented by: Insulin Human Lispro (Humalog Kwikpen (Bkc)) 15 unit SC TIDAC [facility] Last Admin: 09/01/19 06:43 Dose: 15 units Documented by: Levothyroxine Sodium (Synthroid) 112 mcg PO DAILY@0600 [facility] Last Admin: 09/01/19 05:25 Dose: 112 mcg Documented by: Meclizine HCl (Antivert) 25 mg PO TID PRN PRN Reason: DIZZINESS Nicotine (Nicoderm Cq (Pbkc)) 21 mg TRANSDERM. DAILY [facility] Last Admin: 08/31/19 15:47 Dose: 21 mg Documented by: Nutritional Formula (Rip - [place] Flavor) 1 packet PO BIDCM [facility] Last Admin: 09/01/19 09:10 Dose: Not Given Documented by: Nutritional Formula (Lactose Free) (Glucerna Shake) 120 ml PO 4X/DAY [facility] Last Admin: 08/31/19 20:25 Dose: Not Given Documented by: Ondansetron HCl (Zofran) 4 mg IV Q8H PRN PRN PRN Reason: NAUSEA/VOMITING Pregabalin (Lyrica) 100 mg PO BID [facility] Last Admin: 08/31/19 20:24 Dose: 100 mg Documented by: Sodium Chloride () 10 - 40 ml IV UD PRN PRN Reason: SALINE FLUSH Last Admin: 08/31/19 13:12 Dose: 10 ml Documented by: Trazodone HCl (Desyrel) 50 mg PO QHS [facility] Last Admin: 08/31/19 20:23 Dose: 50 mg Documented by: Medical Necessity - Tobacco Use Smoking Status: Current every day smoker Tobacco Use: Cigarettes Assessment/Plan All Active Problems Infection of toe (Acute) SEUN (acute kidney injury) (Acute) This is a 48 years old female patient who was admitted with right second toe swelling and erythema and was found to have acute kidney injury as well as suspected acute osteomyelitis of the right second toe in context of recent history of osteomyelitis of the right second toe status post debridement and partial amputation on May,. Patient is admitted on [facility] floor. #1 suspected recurrent osteomyelitis of the right second toe: Foot x-ray shows no soft tissue emphysema, foreign body, acute fracture/dislocation. Periosteal reaction with previous partial toe amputation of second toe reported on x-ray. MRI of right foot is ordered. As per ice cream van vendor, she had vascular studies ordered 2019 done which showed good perfusion up to ankle level. Digital brachial index was not done because of hallux amputation. Maintain offloading of left lower extremity. 08/31: No fever/chill. On IV vancomycin. MRSA nasal screen negative. CRP and ESR normal. Patient was seen by ice cream van vendor. On IV vancomycin. In May 2019 when she had partial amputation of right second toe she completed course of Levaquin and Flagyl. Monitor Vanco trough and level. Pharmacist consulted. 09/01: No fever or chills. Continue IV vancomycin. #2 Diarrhea: Patient has positive C. difficile test in September 2017 and was treated with p.o. vancomycin. Stool for C. difficile ordered. Stool for occult blood and lactoferrin ordered. Patient has history of recurrent antibiotic use, was on antibiotic in May 2019. 3. acute kidney injury with hypokalemia: Baseline kidney function is normal. On admission, BUN was 27 and creatinine was 1.84, creatinine was 0.67; 1 week ago. 08/31: BUN/creatinine getting better, 25/1.08. Mild hypokalemia, potassium being replaced. Lisinopril and HCTZ on hold. Monitor intake and output. Monitor BMP and electrolytes. 09/01: Acute kidney injury resolved. #3 uncontrolled type 2 diabetes mellitus: Hemoglobin A1c was 10.8 on April,. 08/31: A1c 12. Glucose in BMP 334, A1c 12.0. Started on Lantus 10 units subcutaneous twice daily. Lantus dose increased to 60 units twice daily. On high-dose sliding scale. Patient was on Levemir 50 units twice daily; increase by PCP 4 days prior to admission. Patient was also on Trulicity. On Accu-Cheks before meals and at bedtime and cover with Humalog sliding scale. Patient also started on 15 units Humalog 3 times daily before meals. /: Blood sugar still elevated. Fasting blood sugar 223. Lantus insulin increased to 70 units twice daily and Humalog 20 units 3 times before meal. #4 hypothyroidism: Stable, continue levothyroxine. #5 anxiety/depression: Continue Cymbalta, Vistaril and trazodone. #6 peripheral neuropathy: Stable, continue Lyrica. #7 M?ni?re's disease/chronic vertigo: Stable, continue meclizine as needed. As per the nursing staff, there is suspicion of substance abuse at home. U tox ordered. #8 DVT prophylaxis: Subcut heparin. Microbiology Past 72 Hours 08/30/19 20:05 Wound Drainage - Aerobic & Anaerobic Swabs Gram Stain - Final 08/30/19 20:05 Wound Drainage - Aerobic & Anaerobic Swabs Wound Culture - Preliminary Gram Positive Cocci Laboratory Results 08/31/19 05:55: Magnesium 1.9 08/31/19 11:06: POC Glucose 203 H 08/31/19 16:49: POC Glucose 268 H 08/31/19 20:18: POC Glucose 164 H 09/01/19 05:58: Sodium 139, Potassium 3.7, Chloride 110 H, Carbon Dioxide 25.0, Anion Gap 4 L, BUN 22 H, Creatinine 0.66, Estim Creat Clear Calc 94.82, Est GFR (MDRD) Af Amer 124, Est GFR (MDRD) Non-Af 102, BUN/Creatinine Ratio 33.5 H, Glucose 229 H, Calcium 7.8 L 09/01/19 06:41: POC Glucose 223 H Clinical Impression(s) from Imaging Studies Foot X-Ray 08/30/19 16:54 IMPRESSION: 1. Prominent periosteal reaction of the second proximal phalanx. This may be due to prior surgery or trauma, but is concerning for infection. Consider MRI of the foot with contrast to rule out osteomyelitis. Chest X-Ray 08/30/19 17:35 IMPRESSION: Normal x-ray examination of the chest. Code Visit Inpatient E&M: 13913 Subs Hosp L2
[2019-09-01 09:52] VITALS: BP 132/78; PULSE 81; RESP 16; TEMP 36.7; O2SAT 97
[2019-09-01] MEDS: DULoxetine Hcl 30 MG Capsule PO (10:01)
[2019-09-01] MEDS: Famotidine 20 MG Tablet PO (10:03)
[2019-09-01] MEDS: Pregabalin 50 MG Capsule 100 MG PO ×2 (10:08→20:45)
[2019-09-01] MEDS: Insulin Lispro 100 UNIT/ML INSULN.PEN 20 UNIT SC ×2 (12:12→16:45)
[2019-09-01 12:21] LABS: Bedside Glucose 159 mg/dL (70-110)
--- NOTE | 2019-09-01 12:37 | PCM.HP.ID ---
Reason for Consult: Diabetic right foot infection Consulted by: Dr. Flynn Aponte History of Present Illness: The patient is a 48 year old F [] This a 48-year-old white female with a past medical history of diabetes mellitus complicated by peripheral neuropathy and previous partial rotation to the right foot including the big toe on the right foot in March and partial imitation the right second toe this past May. Patient was admitted because of concern of erythema of the right foot. No fevers or chills no significant constitutional symptoms. Patient was subsequently placed on parenteral antibiotic therapy. She did undergo an MRI of the right foot. Also had the opportunity to talk to Dr. Martin, metal leaf layer. Patient denies any gastrointestinal distress. No cardiopulmonary symptoms she is otherwise clinically stable. - Medical History Past Medical History (Chronic Problems): Chronic Problems Meniere disease (Chronic) Chronic ulcer of right foot with fat layer exposed (Chronic) Type 2 diabetes mellitus with diabetic polyneuropathy (Chronic) Hammer toe of right foot (Chronic) Obesity (BMI 30-39.9) (Chronic) Vertigo (Chronic) Hyperlipidemia (Chronic) Fibromyalgia (Chronic) Depression with anxiety (Chronic) Allergies/Adverse Reactions: Allergies clindamycin Allergy (Verified 05/18/19 22:30) Hives erythromycin base [From E-Mycin] Allergy (Verified 05/18/19 22:30) Hives Home Medications: Ambulatory Orders Medication Instructions Recorded Duloxetine Hcl [Cymbalta] 60 mg PO QHS 10/30/13 Insulin Detemir [Levemir FlexPen] 50 units SC BID #0 10/30/13 Levothyroxine [Synthroid] 112 mcg PO DAILY 10/17/17 Meclizine HCl 25 mg PO TID PRN 10/17/17 Famotidine [Pepcid] 20 mg PO DAILY 05/18/19 Hydroxyzine Pamoate [Vistaril] 50 mg PO TID PRN PRN 05/18/19 Pregabalin [Lyrica] 100 mg PO BID 06/12/19 traZODone [Desyrel] 50 mg PO QHS 06/12/19 Duloxetine Hcl [Cymbalta] 30 mg PO DAILY 06/13/19 Albuterol Inhaler [Ventolin Hfa 1 - 2 puff INHALATION Q6H PRN PRN 08/30/19 (SP)] Atorvastatin Calcium [Lipitor] 80 mg PO QHS 08/30/19 Biotin 1 mg PO DAILY 08/30/19 Dulaglutide [Trulicity] 0.75 mg SQ WE 08/30/19 Hydrochlorothiazide 50 mg PO DAILY 08/30/19 Insulin Aspart [Novolog Flexpen] See Protocol SQ TIDCM 08/30/19 Vital Signs Temp Pulse Resp BP Pulse Ox 98.0 F 81 16 132/78 H 97 09/01/19 09:52 09/01/19 09:52 09/01/19 09:52 09/01/19 09:52 09/01/19 09:52 Oxygen Delivery Method Room Air Weight: 83.4 kg Body Mass Index (BMI) 30.6 Finger Stick Blood Glucose 229 Microbiology Past 72 Hours 08/30/19 20:05 Gram Stain - Final Wound Drainage - Aerobic & Anaerobic Swabs Wound Culture - Preliminary Gram Positive Cocci Laboratory Tests Past 24 Hrs 08/31/19 09/01/19 05:55 05:58 Sodium 139 Potassium 3.7 Chloride 110 H Carbon Dioxide 25.0 Anion Gap 4 L BUN 22 H Creatinine 0.66 Estim Creat Clear Calc 94.82 Est GFR (MDRD) Af Amer 124 Est GFR (MDRD) Non-Af 102 BUN/Creatinine Ratio 33.5 H Glucose 229 H Calcium 7.8 L Magnesium 1.9 - Other Studies Radiology: [] Other Studies: [] Route of nutrition/ use of supplements: [] Nutritional Intake: [] IV Site: [] Carrillo Catheter: [] Patient is alert does not appear toxic lungs are clear heart exam S1-S2 abdomen is obese but soft. Left foot looks benign right foot I examined with , mild swelling in the right second toe with minimal erythema. - Assessment/Plan Antibiotics: [] Assessment/Plan: [] Active and Suspected Problems Infection of toe (Acute) SEUN (acute kidney injury) (Acute) Osteomyelitis of second toe of right foot (Suspected) Right foot diabetic soft tissue infection. Low suspicion for deep infection. Reasonable to switch to oral antibiotics in the form of Augmentin 875 mg twice daily for 14-day course.
--- NOTE | 2019-09-01 12:49 | PCM.PROGNOTE ---
Patient Problems: Active and Suspected Problems Infection of toe (Acute) SEUN (acute kidney injury) (Acute) Osteomyelitis of second toe of right foot (Suspected) Subjective: This 48-year-old female was seen bedside for follow-up of right second partial toe amputation stump site ulcer with underlying osteomyelitis. She denies pain, fever, chill, nausea, vomiting. - Physical Exam Vitals/I&O's: Vital Signs Temp Pulse Resp BP Pulse Ox 98.0 F 81 16 132/78 H 97 09/01/19 09:52 09/01/19 09:52 09/01/19 09:52 09/01/19 09:52 09/01/19 09:52 Oxygen Delivery Method Room Air Weight: 83.4 kg Body Mass Index (BMI) 30.6 Finger Stick Blood Glucose 229 Intake and Output for Last 24 Hours 08/30/19 08/31/19 09/01/19 23:59 23:59 23:59 Intake Total 2079. / 2079. 5291.67 / 5771.67 2129 Output Total 850 / 850 Balance 2079. / 4441.67 / 4921.67 2129 General: Alert, Oriented x3, Cooperative HEENT: Atraumatic Extremities: No cyanosis, Capillary Refill Less than 3 Seconds, No Calf Tenderness, Diminished Peripheral Pulses, Edema - decreased Skin: Ulcer/ Wound - No erythema, streaking, purulence, necrosis. There is mild serosanguineous drainage only. There is peripheral atrophic and hairless skin to the foot Musculoskeletal: No Tenderness to Palpation of Joints or Extremities, Muscle Wasting, - - Right foot hallux amputation and partial second toe amputation Neurological: - - Lack of epicritic sensation light touch is consistent with neuropathy Psych/Mental Status: Normal Affect, Appropriate Microbiology Past 72 Hours 08/30/19 20:05 Wound Drainage - Aerobic & Anaerobic Swabs Gram Stain - Final 08/30/19 20:05 Wound Drainage - Aerobic & Anaerobic Swabs Wound Culture - Preliminary Gram Positive Cocci Laboratory Results 08/31/19 05:55: Magnesium 1.9 08/31/19 16:49: POC Glucose 268 H 08/31/19 20:18: POC Glucose 164 H 09/01/19 05:58: Sodium 139, Potassium 3.7, Chloride 110 H, Carbon Dioxide 25.0, Anion Gap 4 L, BUN 22 H, Creatinine 0.66, Estim Creat Clear Calc 94.82, Est GFR (MDRD) Af Amer 124, Est GFR (MDRD) Non-Af 102, BUN/Creatinine Ratio 33.5 H, Glucose 229 H, Calcium 7.8 L 09/01/19 06:41: POC Glucose 223 H 09/01/19 12:10: POC Glucose 159 H Current Medications Acetaminophen (Tylenol) 650 mg PO Q6H PRN PRN PRN Reason: Pain Score 1-3/Temp > 100.7 F Last Admin: 09/01/19 12:11 Dose: 650 mg Documented by: Albuterol Sulfate (Ventolin Aerosols) 2.5 mg INHALATION Q4H PRN PRN PRN Reason: Shortness of breath, wheezing Amoxicillin/Clavulanate Potassium (Augmentin Tablet) 875 mg PO BID [facility] Atorvastatin Calcium (Lipitor) 80 mg PO QHS [facility] Last Admin: 08/31/19 20:24 Dose: 80 mg Documented by: Budesonide (Pulmicort Aerosol) 0.5 mg INHALATION BID PRN PRN Reason: ALLERGIES Dextrose (D50w Syringe) 0 gm IV X1 PRN; Protocol PRN Reason: Hypoglycemia Duloxetine HCl (Cymbalta) 60 mg PO QHS [facility] Last Admin: 08/31/19 20:23 Dose: 60 mg Documented by: Duloxetine HCl (Cymbalta) 30 mg PO DAILY [facility] Last Admin: 09/01/19 10:01 Dose: 30 mg Documented by: Famotidine (Pepcid) 20 mg PO DAILY [facility] Last Admin: 09/01/19 10:03 Dose: 20 mg Documented by: Glucagon () 1 mg IM .X1 PRN PRN Reason: Hypoglycemia Heparin Sodium (Porcine) (Heparin Na) 5,000 unit SC Q8 [facility] Last Admin: 09/01/19 05:25 Dose: 5,000 unit Documented by: Hydroxyzine Pamoate (Vistaril Pamoate Capsule) 50 mg PO TID PRN PRN PRN Reason: ANXIETY Sodium Chloride () 1,000 mls @ 125 mls/hr IV .Q8H [facility] Last Admin: 09/01/19 10:15 Dose: 125 mls/hr Documented by: Insulin Glargine (Lantus (Bkc)) 70 units SC BID [facility] Insulin Human Lispro (Humalog Kwikpen (Bkc)) 0 unit SC ACHS [facility]; Protocol Last Admin: 09/01/19 12:13 Dose: 2 u Documented by: Insulin Human Lispro (Humalog Kwikpen (Bkc)) 20 unit SC TIDAC [facility] Last Admin: 09/01/19 12:12 Dose: 20 units Documented by: Levothyroxine Sodium (Synthroid) 112 mcg PO DAILY@0600 [facility] Last Admin: 09/01/19 05:25 Dose: 112 mcg Documented by: Meclizine HCl (Antivert) 25 mg PO TID PRN PRN Reason: DIZZINESS Nicotine (Nicoderm Cq (Pbkc)) 21 mg TRANSDERM. DAILY [facility] Last Admin: 09/01/19 10:01 Dose: 21 mg Documented by: Nutritional Formula ([facility] - [place] Flavor) [facility] Last Admin: 09/01/19 09:10 Dose: Not Given Documented by: Nutritional Formula (Lactose Free) (Glucerna Shake) 120 ml PO 4X/DAY [facility] Last Admin: 09/01/19 10:01 Dose: Not Given Documented by: Ondansetron HCl (Zofran) 4 mg IV Q8H PRN PRN PRN Reason: NAUSEA/VOMITING Pregabalin (Lyrica) 100 mg PO BID [facility] Last Admin: 09/01/19 10:08 Dose: 100 mg Documented by: Sodium Chloride () 10 - 40 ml IV UD PRN PRN Reason: SALINE FLUSH Last Admin: 08/31/19 13:12 Dose: 10 ml Documented by: Trazodone HCl (Desyrel) 50 mg PO QHS [facility] Last Admin: 08/31/19 20:23 Dose: 50 mg Documented by: Medical Necessity - Tobacco Use Smoking Status: Current every day smoker Tobacco Use: Cigarettes Assessment/Plan All Active Problems Infection of toe (Acute) SEUN (acute kidney injury) (Acute) Right foot cellulitis Right second toe amputation at partial amputation stump site Osteomyelitis is possible 2nd proximal phalanx Uncontrolled diabetes mellitus with neuropathy Acute kidney injury Small vessel disease suspected Smoker Other comorbidities I reviewed and discussed her case this afternoon. Her MRI report was reviewed which suggest osteomyelitis is likely to the second proximal phalanx of the right foot. Clinically she demonstrates great improvement without purulence or necrosis. This is likely a subacute condition and there is a low suspicion for acute deep infection at this time. Her dressing was reapplied. The case was discussed with infectious disease. She will be transitioned to oral antibiotics and will likely be discharged home today or tomorrow. We will proceed with a comprehensive wound healing plan including offloading, daily dressing changes and serial debridements, nutrition supplementation and glycemic management. She is not amendable to have an amputation at this time and is amendable to proceed with seeing how she does with wound care and antibiotics. I also previously reviewed her noninvasive vascular studies obtained earlier this year and appears she has normal perfusion to the ankle level. Digital brachial indices were not obtained given she has a right hallux amputation. I am concerned about some form of vascular disease including small vessel disease of the toes given her smoking history and her reported claudication symptoms. I do recommend a vascular surgery referral on an inpatient versus outpatient basis given her delayed healing. Medical management and DVT prophylaxis per primary team is greatly appreciated. I will continue to follow her while in house. Please do not hesitate to call if you have any questions. Marge Martin DPM, [facility] [phone]
--- NOTE | 2019-09-01 12:50 | DCINST_ITS ---
Weight Bearing Status: Partial weight bearing - heel weightbear surgical shoe Call your doctor if your incision/area has: Continuous Slow Oozing, Sudden Increased Bleeding, Increased Pain/ Swelling, Increased Redness, Foul Smelling Discharge Call your doctor if you observe: Fever of 101 or Higher, Calf discomfort, Uncontrolled pain Cleanse incision/area with: Normal Saline, - - change dressing daily with aquacell ag Additional Instructions: take oral antibiotics as recommended by infectious disease Allergies/Adverse Reactions: Allergies clindamycin Allergy (Verified 05/18/19 22:30) Hives erythromycin base [From E-Mycin] Allergy (Verified 05/18/19 22:30) Hives Medications to take at Discharge Duloxetine Hcl [Cymbalta] 60 mg PO QHS 10/30/13 Insulin Detemir [Levemir FlexPen] 50 units SC BID #0 10/30/13 Levothyroxine [Synthroid] 112 mcg PO DAILY 10/17/17 Meclizine HCl 25 mg PO TID PRN 10/17/17 Famotidine [Pepcid] 20 mg PO DAILY 05/18/19 Hydroxyzine Pamoate [Vistaril] 50 mg PO TID PRN PRN 05/18/19 Pregabalin [Lyrica] 100 mg PO BID 06/12/19 traZODone [Desyrel] 50 mg PO QHS 06/12/19 Duloxetine Hcl [Cymbalta] 30 mg PO DAILY 06/13/19 Albuterol Inhaler [Ventolin Hfa (SP)] 1 - 2 puff INHALATION Q6H PRN PRN 08/30/19 Atorvastatin Calcium [Lipitor] 80 mg PO QHS 08/30/19 Biotin 1 mg PO DAILY 08/30/19 Dulaglutide [Trulicity] 0.75 mg SQ WE 08/30/19 Hydrochlorothiazide 50 mg PO DAILY 08/30/19 Insulin Aspart [Novolog Flexpen] See Protocol SQ TIDCM 08/30/19 Primary Care Physician: Shirley Garcia MD [Primary Care Provider] - Test Results: Test results from this visit will be discussed in further detail at your follow- up appointment, if applicable. Please Follow Up With: Marge Martin DPM When: [facility] week [facility]; call [phone] Proposed Discharge Date: 09/01/19
[2019-09-01] MEDS: hydrOXYzine PAM 25 MG Capsule 50 MG PO ×2 (13:13→20:49)
[2019-09-01] MEDS: Amox/Clavulanate 875 MG Tablet PO ×2 (13:17→20:45)
[2019-09-01 15:02] LABS: Amphetamine Urine VISTA NEGATIVE (<1000 ng/mL); Barbiturate Urine VISTA NEGATIVE (< 200 ng/mL); Benzodiazepine Urine VISTA NEGATIVE (< 200 ng/mL); Cocaine Urine VISTA NEGATIVE (< 300 ng/mL); Ecstacy Urine VISTA NEGATIVE (< 500 ng/mL); Methadone Urine VISTA NEGATIVE (< 300 ng/mL); PCP Urine VISTA NEGATIVE (< 25 ng/mL); THC Urine VISTA NEGATIVE (< 50 ng/mL); Vista UDS pH Range 5
[2019-09-01 15:35] VITALS: BP 158/73; PULSE 79; RESP 16; TEMP 37.1; O2SAT 94
[2019-09-01 16:50] LABS: Bedside Glucose 170 mg/dL (70-110)
[2019-09-01 20:32] VITALS: BP 163/87; PULSE 82; RESP 16; TEMP 37.1; O2SAT 95
[2019-09-01] MEDS: Atorvastatin Calcium 80 MG Tablet PO (20:44)
[2019-09-01] MEDS: DULoxetine Hcl 30 MG Capsule 60 MG PO (20:45)
[2019-09-01] MEDS: traZODone 50 MG Tablet PO (20:45)
[2019-09-01 21:00] LABS: Bedside Glucose 126 mg/dL (70-110)
[2019-09-02 02:08] VITALS: BP 110/59; PULSE 74; RESP 16; TEMP 36.6; O2SAT 94
[2019-09-02] MEDS: Acetaminophen 325 MG Tablet 650 MG PO (03:38)
[2019-09-02] MEDS: Heparin Injection (Vial) 5,000 UNIT/ML VIAL 5000 UNIT SC (06:54)
[2019-09-02] MEDS: Levothyroxine 112 MCG Tablet PO (06:54)
[2019-09-02 07:00] LABS: Bedside Glucose 199 mg/dL (70-110)
[2019-09-02 08:12] VITALS: BP 144/82; PULSE 73; PULSE 74; RESP 20; TEMP 36.9; O2SAT 97; O2SAT 98
[2019-09-02] MEDS: Insulin Lispro 100 UNIT/ML INSULN.PEN SC (08:56)
[2019-09-02] MEDS: Insulin Lispro 100 UNIT/ML INSULN.PEN 20 UNIT SC (08:57)
[2019-09-02] MEDS: Amox/Clavulanate 875 MG Tablet PO (08:58)
[2019-09-02] MEDS: Famotidine 20 MG Tablet PO (08:58)
[2019-09-02] MEDS: Pregabalin 50 MG Capsule 100 MG PO (08:58)
[2019-09-02] MEDS: DULoxetine Hcl 30 MG Capsule PO (08:59)
--- NOTE | 2019-09-02 09:43 | DCINST_ITS ---
- Discharge Diagnoses Current Active Problems: Current Active and Chronic Problems Infection of toe (Acute) SEUN (acute kidney injury) (Acute) Type 2 diabetes mellitus with diabetic polyneuropathy (Chronic) You will use the following diet at home:: Calorie/Carbohydrate Controlled (specify 1200, 1400, etc), Cardiac Your food should be the consistency of: Regular Discharge Activity: May Not Drive Weight Bearing Status: Partial weight bearing - heel weightbear surgical shoe Call your doctor if your incision/area has: Continuous Slow Oozing, Sudden Increased Bleeding, Increased Pain/ Swelling, Increased Redness, Foul Smelling Discharge Call your doctor if you observe: Fever of 101 or Higher, Coldness, Increased Pain, Numbness or Tingling, Inability to have a bowel movement, Shortness of b reath, Fainting spells, Swelling in the ankles, Calf discomfort, Uncontrolled pain Cleanse incision/area with: Normal Saline, - - change dressing daily with aquacell ag Additional Instructions: Follow-up BMP with PCP in 1 to 2 weeks. She had acute kidney injury; which is resolved. Patient was on HCTZ 50 mg daily which is stopped. Prescription given for STD 12.5 mg starting on 09/06/2019 Allergies/Adverse Reactions: Allergies clindamycin Allergy (Verified 05/18/19 22:30) Hives erythromycin base [From E-Mycin] Allergy (Verified 05/18/19 22:30) Hives Medications to take at Discharge Duloxetine Hcl [Cymbalta] 60 mg PO QHS 10/30/13 Levothyroxine [Synthroid] 112 mcg PO DAILY 10/17/17 Meclizine HCl 25 mg PO TID PRN 10/17/17 Famotidine [Pepcid] 20 mg PO DAILY 05/18/19 Hydroxyzine Pamoate [Vistaril] 50 mg PO TID PRN PRN 05/18/19 Pregabalin [Lyrica] 100 mg PO BID 06/12/19 traZODone [Desyrel] 50 mg PO QHS 06/12/19 Duloxetine Hcl [Cymbalta] 30 mg PO DAILY 06/13/19 Albuterol Inhaler [Ventolin Hfa] 1 - 2 puff INHALATION Q6H PRN PRN 08/30/19 Atorvastatin Calcium [Lipitor] 80 mg PO QHS 08/30/19 Biotin 1 mg PO DAILY 08/30/19 Dulaglutide [Trulicity] 0.75 mg SQ WE 08/30/19 Insulin Aspart [Novolog Flexpen] See Protocol SQ TIDCM 08/30/19 Amox/Clavulanate Tablet [Augmentin Tablet] 875 mg PO BID #28 tab 09/02/19 Hydrochlorothiazide [Hctz] 12.5 mg PO DAILY #30 tab 09/02/19 Insulin Detemir [Levemir FlexPen] 70 units SC BID #0 09/02/19 Nicotine [Nicoderm Cq] 21 mg TRANSDERM. DAILY patch 09/02/19 The following prescriptions were given: Amox/Clavulanate Tablet [Augmentin Tablet] 875 mg PO BID #28 tab Transmission Status: Pending to [facility]/pharmacy #[id number] Hydrochlorothiazide [Hctz] 12.5 mg PO DAILY #30 tab Transmission Status: Pending to [facility]/pharmacy #[id number] Primary Care Physician: Shirley Garcia MD [Primary Care Provider] - Please follow up with your Primary Care Physician in: in 1 week Test Results: Test results from this visit will be discussed in further detail at your follow- up appointment, if applicable. Please Follow Up With: Marge Martin DPM When: [facility] week [facility]; call [phone] Please Follow Up With: Joaquín Torres MD When: for right toe in 2-3 week Proposed Discharge Date: 09/01/19
[2019-09-02 10:05] VITALS: BP 146/72; PULSE 83; RESP 18; TEMP 36.8; O2SAT 97
--- NOTE | 2019-09-02 10:06 | PCM.DC.SUM ---
Discharge Date and Diagnosis Date of Admission: 08/30/19 Date of Discharge: 09/02/19 - Primary Discharge Diagnosis Active and Suspected Problems Infection of toe (Acute) SEUN (acute kidney injury) (Acute) Osteomyelitis of second toe of right foot (Suspected) - Secondary Discharge Diagnosis Chronic Problems Meniere disease (Chronic) Chronic ulcer of right foot with fat layer exposed (Chronic) Type 2 diabetes mellitus with diabetic polyneuropathy (Chronic) Hammer toe of right foot (Chronic) Obesity (BMI 30-39.9) (Chronic) Vertigo (Chronic) Hyperlipidemia (Chronic) Fibromyalgia (Chronic) Depression with anxiety (Chronic) Hospital Course and Treatment Consultations 08/31/19 14:16 Consult: Onc/Wound/vp ad sales [place] Routine Comment: Reason for Consult:: right 2nd toe ulcer, possible OM Operations: - - Status post right partial second toe amputation on 06/14/19 Summary of Care Provided: This is a 48 years old female patient who was admitted with right second toe swelling and erythema and was found to have acute kidney injury as well as suspected acute osteomyelitis of the right second toe in context of recent history of osteomyelitis of the right second toe status post debridement and partial amputation on May,. Patient is admitted on [facility]. #1 suspected recurrent osteomyelitis of the right second toe: Foot x-ray shows no soft tissue emphysema, foreign body, acute fracture/dislocation. Periosteal reaction with previous partial toe amputation of second toe reported on x-ray. MRI of right foot is ordered. As per water control station engineer, she had vascular studies ordered 2019 done which showed good perfusion up to ankle level. Digital brachial index was not done because of hallux amputation. Maintain offloading of left lower extremity. 08/31: No fever/chill. On IV vancomycin. MRSA nasal screen negative. CRP and ESR normal. Patient was seen by water control station engineer. On IV vancomycin. In May 2019 when she had partial amputation of right second toe she completed course of Levaquin and Flagyl. Monitor Vanco trough and level. Pharmacist consulted. 09/01: No fever or chills. Continue IV vancomycin. 09/02: Antibiotic was changed to Augmentin yesterday. ID follow-up reviewed and appreciated. Patient is discharged on Augmentin for 2 weeks. #2 Diarrhea: Patient has positive C. difficile test in September 2017 and was treated with p.o. vancomycin. Stool for C. difficile ordered. Stool for occult blood and lactoferrin ordered. Patient has history of recurrent antibiotic use, was on antibiotic in May 2019. 09/02: No more loose bowel movement. C. difficile was negative. Enteric bacterial D panel, stool for occult blood and lactoferrin all negative. Probably mild diarrhea related to antibiotics or medications. 3. acute kidney injury with hypokalemia: Baseline kidney function is normal. On admission, BUN was 27 and creatinine was 1.84, creatinine was 0.67; 1 week ago. 08/31: BUN/creatinine getting better, 25/1.08. Mild hypokalemia, potassium being replaced. Lisinopril and HCTZ on hold. Monitor intake and output. Monitor BMP and electrolytes. 09/01: Acute kidney injury resolved. #3 uncontrolled type 2 diabetes mellitus: Hemoglobin A1c was 10.8 on April,. 08/31: A1c 12. Glucose in BMP 334, A1c 12.0. Started on Lantus 10 units subcutaneous twice daily. Lantus dose increased to 60 units twice daily. On high-dose sliding scale. Patient was on Levemir 50 units twice daily; increase by PCP 4 days prior to admission. Patient was also on Trulicity. On Accu-Cheks before meals and at bedtime and cover with Humalog sliding scale. Patient also started on 15 units Humalog 3 times daily before meals. 09/01: Blood sugar still elevated. Fasting blood sugar 223. Lantus insulin increased to 70 units twice daily and Humalog 20 units 3 times before meal. 09/02: Glucose is better controlled. #4 hypothyroidism: Stable, continue levothyroxine. #5 anxiety/depression: Continue Cymbalta, Vistaril and trazodone. #6 peripheral neuropathy: Stable, continue Lyrica. #7 M?ni?re's disease/chronic vertigo: Stable, continue meclizine as needed. As per the nursing staff, there is suspicion of substance abuse at home. U tox ordered. #8 DVT prophylaxis: Subcut heparin. Discharge medication reconciliation done. Discharge follow-up instructions completed. Discharge process discussed with the patient and all questions were answered to patient's satisfaction. Patient was advised for Accu-Cheks and good glucose control between 120- 180 mg/dL. Patient was also on high dose of hydrochlorothiazide 50 mg daily at home. Advised start HCTZ at lower dose on Friday 12.5mg daily and follow-up with PCP with BMP after 1 week. Total time spent, exact 35 minutes on discharge meds reconciliation, examination, review of imaging and blood test and discussion with the patient on follow-up instructions. Microbiology Past 72 Hours 09/01/19 14:00 Stool Enteric Bacteriology - Final 08/30/19 20:05 Wound Drainage - Aerobic & Anaerobic Swabs Gram Stain - Final 08/30/19 20:05 Wound Drainage - Aerobic & Anaerobic Swabs Wound Culture - Preliminary Enterococcus faecalis 08/30/19 20:05 Wound Drainage - Aerobic & Anaerobic Swabs Anaerobic Culture - Preliminary Checking for anaerobes, further studies to follow. 08/30/19 17:10 Blood Culture (Wb) - Anticubital Left Blood Culture - Preliminary No growth in 48 hours. 08/30/19 17:28 Blood Culture (Wb) - Anticubital Right Blood Culture - Preliminary No growth in 48 hours. 09/01/19 14:00 Stool C. difficile DNA Amplification - Final 09/01/19 14:00 Stool Stool Lactoferrin - Final 09/01/19 14:00 Stool Stool Occult Blood (TIA) - Final Laboratory Results 09/01/19 16:41: POC Glucose 170 H 09/01/19 20:38: POC Glucose 126 H 09/02/19 06:53: POC Glucose 199 H Subjective: Vitals are stable. No fever. No abdominal cramps. Patient had one bowel movement yesterday. C. difficile was negative Objective: General: Alert, Oriented x3, Cooperative HEENT: Atraumatic, PERRLA, EOMI, Normocephalic Neck: Supple, No JVD, Negative Carotid Bruits Lungs: Clear to auscultation, Normal air movement, No rhonchi, No wheeze, No rales Cardiovascular: Regular rate, Regular Rhythm, Normal S1, Normal S2, No murmurs Abdomen: Bowel Sounds Present, Soft, Non Tender, Non-Distended Extremities: No edema, Capillary Refill Less than 3 Seconds Skin: No rashes, No breakdown, Ulcer/ Wound Right second toe tiny ulcer. Musculoskeletal: No Tenderness to Palpation of Joints or Extremities, Arthritic Changes, Tenderness Neurological: Cranial nerves II-XII grossly intact Psych/Mental Status: Normal Affect, Appropriate - Physical Exam Vitals/I&O's: Vital Signs Temp Pulse Resp BP Pulse Ox 98.4 F 74 20 H 144/82 H 98 09/02/19 08:12 09/02/19 08:12 09/02/19 08:12 09/02/19 08:12 09/02/19 08:12 Oxygen Delivery Method Room Air Weight: 183 lb 13.848 oz Body Mass Index (BMI) 30.6 Finger Stick Blood Glucose 229 Intake and Output for Last 24 Hours 08/31/19 09/01/19 09/02/19 23:59 23:59 23:59 Intake Total 5291.67 / 5771.67 3484.17 / 3784.17 500 / 500 Output Total 850 / 850 Balance 4441.67 / 4921.67 3484.17 / 3784.17 500 / 500 Microbiology Past 72 Hours 08/30/19 20:05 Wound Drainage - Aerobic & Anaerobic Swabs Gram Stain - Final 08/30/19 20:05 Wound Drainage - Aerobic & Anaerobic Swabs Wound Culture - Preliminary Enterococcus faecalis 08/30/19 20:05 Wound Drainage - Aerobic & Anaerobic Swabs Anaerobic Culture - Preliminary Checking for anaerobes, further studies to follow. 08/30/19 17:10 Blood Culture (Wb) - Anticubital Left Blood Culture - Preliminary No growth in 48 hours. 08/30/19 17:28 Blood Culture (Wb) - Anticubital Right Blood Culture - Preliminary No growth in 48 hours. 09/01/19 14:00 Stool C. difficile DNA Amplification - Final 09/01/19 14:00 Stool Stool Lactoferrin - Final 09/01/19 14:00 Stool Stool Occult Blood (TIA) - Final Laboratory Results 09/01/19 12:10: POC Glucose 159 H 09/01/19 14:20: Urine Opiates Screen NEGATIVE, Urine Methadone Screen NEGATIVE, Ur Barbiturates Screen NEGATIVE, Ur Phencyclidine Scrn NEGATIVE, Ur Amphetamines Screen NEGATIVE, U Methamphetamin-MDMA NEGATIVE, U Benzodiazepines Scrn NEGATIVE, Urine Cocaine Screen NEGATIVE, U Cannabinoids Screen NEGATIVE, Ur Drug Screen Comment 09/01/19 16:41: POC Glucose 170 H 09/01/19 20:38: POC Glucose 126 H 09/02/19 06:53: POC Glucose 199 H Current Medications Acetaminophen (Tylenol) 650 mg PO Q6H PRN PRN PRN Reason: Pain Score 1-3/Temp > 100.7 F Last Admin: 09/02/19 03:38 Dose: 650 mg Documented by: Albuterol Sulfate (Ventolin Aerosols) 2.5 mg INHALATION Q4H PRN PRN PRN Reason: Shortness of breath, wheezing Amoxicillin/Clavulanate Potassium (Augmentin Tablet) 875 mg PO BID [facility] Last Admin: 09/02/19 08:58 Dose: 875 mg Documented by: Atorvastatin Calcium (Lipitor) 80 mg PO QHS [facility] Last Admin: 09/01/19 20:44 Dose: 80 mg Documented by: Budesonide (Pulmicort Aerosol) 0.5 mg INHALATION BID PRN PRN Reason: ALLERGIES Dextrose (D50w Syringe) 0 gm IV X1 PRN; Protocol PRN Reason: Hypoglycemia Duloxetine HCl (Cymbalta) 60 mg PO QHS [facility] Last Admin: 09/01/19 20:45 Dose: 60 mg Documented by: Duloxetine HCl (Cymbalta) 30 mg PO DAILY [facility] Last Admin: 09/02/19 08:59 Dose: 30 mg Documented by: Famotidine (Pepcid) 20 mg PO DAILY [facility] Last Admin: 09/02/19 08:58 Dose: 20 mg Documented by: Glucagon () 1 mg IM .X1 PRN PRN Reason: Hypoglycemia Heparin Sodium (Porcine) (Heparin Na) 5,000 unit SC Q8 [facility] Last Admin: 09/02/19 06:54 Dose: 5,000 unit Documented by: Hydroxyzine Pamoate (Vistaril Pamoate Capsule) 50 mg PO TID PRN PRN PRN Reason: ANXIETY Last Admin: 09/01/19 20:49 Dose: 50 mg Documented by: Insulin Glargine (Lantus (Bkc)) 70 units SC BID [facility] Last Admin: 09/02/19 08:57 Dose: 70 u Documented by: Insulin Human Lispro (Humalog Kwikpen (Bkc)) 0 unit SC ACHS [facility]; Protocol Last Admin: 09/02/19 08:56 Dose: 2 u Documented by: Insulin Human Lispro (Humalog Kwikpen (Bkc)) 20 unit SC TIDAC [facility] Last Admin: 09/02/19 08:57 Dose: 20 units Documented by: Levothyroxine Sodium (Synthroid) 112 mcg PO DAILY@0600 [facility] Last Admin: 09/02/19 06:54 Dose: 112 mcg Documented by: Meclizine HCl (Antivert) 25 mg PO TID PRN PRN Reason: DIZZINESS Nicotine (Nicoderm Cq (Pbkc)) 21 mg TRANSDERM. DAILY [facility] Last Admin: 09/02/19 08:59 Dose: 21 mg Documented by: Nutritional Formula (Rip - [place] Flavor) 1 packet PO BIDCM [facility] Last Admin: 09/02/19 08:59 Dose: 1 packet Documented by: Nutritional Formula (Lactose Free) (Glucerna Shake) 120 ml PO 4X/DAY [facility] Last Admin: 09/02/19 08:59 Dose: Not Given Documented by: Ondansetron HCl (Zofran) 4 mg IV Q8H PRN PRN PRN Reason: NAUSEA/VOMITING Pregabalin (Lyrica) 100 mg PO BID [facility] Last Admin: 09/02/19 08:58 Dose: 100 mg Documented by: Sodium Chloride () 10 - 40 ml IV UD PRN PRN Reason: SALINE FLUSH Last Admin: 08/31/19 13:12 Dose: 10 ml Documented by: Trazodone HCl (Desyrel) 50 mg PO QHS [facility] Last Admin: 09/01/19 20:45 Dose: 50 mg Documented by: Discharge Activity: May Not Drive Weight Bearing Status: Partial weight bearing - heel weightbear surgical shoe Call your doctor if your incision/area has: Continuous Slow Oozing, Sudden Increased Bleeding, Increased Pain/ Swelling, Increased Redness, Foul Smelling Discharge Call your doctor if you observe: Fever of 101 or Higher, Coldness, Increased Pain, Numbness or Tingling, Inability to have a bowel movement, Shortness of breath, Fainting spells, Swelling in the ankles, Calf discomfort, Uncontrolled pain Cleanse incision/area with: Normal Saline, - - change dressing daily with [facility] Home Medications: Medications to take at Discharge Duloxetine Hcl [Cymbalta] 60 mg PO QHS 10/30/13 Levothyroxine [Synthroid] 112 mcg PO DAILY 10/17/17 Meclizine HCl 25 mg PO TID PRN 10/17/17 Famotidine [Pepcid] 20 mg PO DAILY 05/18/19 Hydroxyzine Pamoate [Vistaril] 50 mg PO TID PRN PRN 05/18/19 Pregabalin [Lyrica] 100 mg PO BID 06/12/19 traZODone [Desyrel] 50 mg PO QHS 06/12/19 Duloxetine Hcl [Cymbalta] 30 mg PO DAILY 06/13/19 Albuterol Inhaler [Ventolin Hfa] 1 - 2 puff INHALATION Q6H PRN PRN 08/30/19 Atorvastatin Calcium [Lipitor] 80 mg PO QHS 08/30/19 Biotin 1 mg PO DAILY 08/30/19 Dulaglutide [Trulicity] 0.75 mg SQ WE 08/30/19 Insulin Aspart [Novolog Flexpen] See Protocol SQ TIDCM 08/30/19 Amox/Clavulanate Tablet [Augmentin Tablet] 875 mg PO BID #28 tab 09/02/19 Hydrochlorothiazide [Hctz] 12.5 mg PO DAILY #30 tab 09/02/19 Insulin Detemir [Levemir FlexPen] 70 units SUBCUT BID #0 09/02/19 Nicotine [Nicoderm Cq] 21 mg TRANSDERM. DAILY patch 09/02/19 Following Prescrptions Were Given to Patient: Amox/Clavulanate Tablet [Augmentin Tablet] 875 mg PO BID #28 tab Transmission Status: Received by [id number] Hydrochlorothiazide [Hctz] 12.5 mg PO DAILY #30 tab Transmission Status: Received by [id number] Primary Care Physician: Shirley Garcia MD [Primary Care Provider] - Please follow up with your Primary Care Physician in: in 1 week Please Follow Up With: Marge Martin DPM When: 1 week at [facility]; call [phone] Please Follow Up With: Joaquín Torres MD When: for right toe in 2-3 week Additional Instructions: take oral antibiotics as recommended by infectious disease Medical Necessity - Tobacco Use Smoking Status: Current every day smoker Tobacco Use: Cigarettes Meaningful Use Info Meaningful Use Diagnoses (Choose all that apply): None applicable Code Visit Inpatient E&M: 39924 Disch Hosp
--- NOTE | 2019-09-03 15:37 | CASEMGMT ---
CHUCK CM Discharge Follow-Up Phone Call. Lace: 14 Strata: 4 Discharge Date: 09/02/19 Adm Dx: Acute Kidney Injury, Suspected Rt Second Toe Osteomyelitis. Attempted discharge follow-up phone call. No answer and no voicemail msg came on to be able to leave a message. Man PAREKHN RN CM
== END 2019-09-02 11:45 | disposition home or self-care (01) | DRG 344 ==
LOC: ED 18:54 → MS3 19:18
PROVIDERS: Podiatrist; Admitting Provider Hospitalist; Emergency Provider Emergency Medicine; Family Provider Internal Medicine; PCP Internal Medicine; Referring Provider Hospitalist; Visit Provider Internal Medicine
DX: E11.628 Type 2 diabetes mellitus with other skin complications (principal); L03.031 Cellulitis of right toe; E11.69 Type 2 diabetes mellitus with other specified complication; N17.9 Acute kidney failure, unspecified; L03.115 Cellulitis of right lower limb; E78.5 Hyperlipidemia, unspecified; M86.8X7 Other osteomyelitis, ankle and foot; M79.7 Fibromyalgia; F41.8 Other specified anxiety disorders; E66.9 Obesity, unspecified; E11.42 Type 2 diabetes mellitus with diabetic polyneuropathy; E87.6 Hypokalemia; E11.65 Type 2 diabetes mellitus with hyperglycemia; Z89.421 Acquired absence of other right toe(s); E03.9 Hypothyroidism, unspecified; H81.09 Meniere's disease, unspecified ear; K52.1 Toxic gastroenteritis and colitis; T36.95XA Adverse effect of unspecified systemic antibiotic, initial encounter; Z68.30 Body mass index [BMI] 30.0-30.9, adult; Z79.4 Long term (current) use of insulin; Z89.411 Acquired absence of right great toe
CPT/HCPCS: 36415; 71046; 73630; 73718; 80048; 80053; 80307; 81001; 82274; 82962; 83036; 83605; 83630; 83735; 85025; 85652; 86140; 87040; 87070; 87075; 87077; 87186; 87205; 87493; 87506; 87640; 93005; 97802; 99285; 99406; J7030; J7040; J7050; A4216

== ENCOUNTER 2019-12-14 13:06 | Emergency (ER) | payer MEDICAID, SELFPAY ==
[2019-12-14 13:06] VITALS: BMI 36.3
[2019-12-14 13:07] VITALS: BP 155/83; PULSE 94; RESP 18; TEMP 36.6; O2SAT 100; BMI 33.3
--- NOTE | 2019-12-14 13:19 | RAD_ITS ---
STUDY: X-RAY - RIGHT FOOT CLINICAL: Female, 49 years old. wound distal second toe TECHNIQUE: 3 view(s) of the foot. COMPARISON: August 30, 2019 FINDINGS: Partial amputation of the distal second toe and first toe. Soft tissue swelling of the tissue stump. No evidence of acute osteomyelitis, abscess or soft tissue ulceration. Remainder is within normal limits RAD/Foot min 3 Views IMPRESSION: No significant change from prior. Remainder as above Electronically Signed: Garett Mejia DO at 13:52 EDT Tel , Service support ,
[2019-12-14] MEDS: Smz/Tmp Ds Tablet 1 TABLET PO (13:54)
[2019-12-14] MEDS: Cephalexin 250 MG Capsule 500 MG PO (13:54)
--- NOTE | 2019-12-14 14:03 | ED.DCSUM_ITS ---
- ER Visit Summary Date of Service: 12/14/19 Chief Complaint: [Right second toe wound] History of Present Illness: The patient is a 49 F [presents to the emergency department with a wound on her right second toe that she has had for about a week. Patient states that she accidentally bumped it against a carpet fastener that caused an abrasion to the tip of the second toe which has been surgically partially amputated already. Patient has history of osteomyelitis and has had her great toe resected in part of her second toe. Patient denies any fevers. Patient fell today the wound appears a little bit deeper and also she is noticed some mild swelling and erythema around the wound that she became concerned about infection. Patient called her contract post office clerk who instructed her to come to the ER to get evaluated. Patient denies any other illness recently. Patient has history of diabetes, high cholesterol, osteomyelitis, and fibromyalgia. Patient had been recently on antibiotics for a dental infection and just finished amoxicillin.] Physical Examination: [HEENT-PERRLA, EOMI. Cranial nerves II through XII grossly intact. TMs clear. Mucous membranes moist. No adenopathy. Cardiovascular-regular rate and rhythm without murmur or ectopy Lungs-clear to auscultation, chest wall stable without crepitus or subcu emphysema Abdomen-normoactive bowel sounds, soft, nontender, no rebound or rigidity, no peritoneal signs. Extremities-intact ?4, normal range of motion, normal pulses, atraumatic. Right second toe has a shallow ulceration to the tip of what is now the proximal phalanx as it is been partially amputated. Patient has some mild soft tissue swelling and just minimal erythema. No lymphangitic streaking. No significant pain on palpation. Has decreased sensation to light touch which is chronic secondary to her neuropathy.] Test Results: [X-ray of the right foot obtained showed no evidence of osteomyelitis and x-ray appears unchanged from prior] Emergency Department Course and Treatment: [Patient was treated with Keflex and Bactrim. Given we are in the middle of the pandemic I felt minimizing her stay in the department was reasonable. I did obtain a culture of the wound. I discussed case with Dr. Muniz who was covering for Dr. Acuña. They will follow-up with her in the office within the next several days for a wound check.] Treatment Plan: [Patient will be treated with Bactrim and Keflex] Disposition: [Discharged home in stable condition] Impression: [Diabetic foot wound with cellulitis] This note was generated with [employer] dictation software. It may contain incorrect words, spelling, and punctuation that were not noted in review of the chart prior to signing ED Disposition - Plan for ED Patient: Referrals: Shirley Garcia MD [Primary Care Provider] -
--- NOTE | 2019-12-14 14:06 | ED.DEP ---
ED Disposition - Plan for ED Patient: Instructions: Diabetic Foot Ulcers, Cellulitis Prescriptions: Smz/Tmp Ds [Bactrim Ds] 1 tab PO BID #20 tab Transmission Status: Pending to [id number] Cephalexin [Keflex] 500 mg PO Q6 #40 cap Transmission Status: Pending to [id number] Referrals: Shirley Garcia MD [Primary Care Provider] - Mamadou Acuña DPM [STAFF PHYSICIAN] - 3-5 Days
== END 2019-12-14 14:36 | disposition home or self-care (01) ==
LOC: ED 13:42
PROVIDERS: Emergency Provider Emergency Medicine; PCP Internal Medicine
DX: L03.119 Cellulitis of unspecified part of limb (principal); W19.XXXA Unspecified fall, initial encounter; Z98.890 Other specified postprocedural states; E11.69 Type 2 diabetes mellitus with other specified complication; E78.00 Pure hypercholesterolemia, unspecified; M79.7 Fibromyalgia
CPT/HCPCS: 73630; 87070; 87077; 87186; 87205; 99283

== ENCOUNTER 2020-03-21 14:16 | Inpatient (IN) | payer MEDICAID, SELFPAY ==
[2020-03-21] VITALS (7 sets, daily range): BP systolic 118–164; BP diastolic 66–89; PULSE 85–95; RESP 15–20; TEMP 36.8–37.6; O2SAT 97–100; BMI 43.0; BMI 39.1; BMI 39.0
--- NOTE | 2020-03-21 14:39 | EKG12_ITS ---
Test Reason : Blood Pressure : / mmHG Vent. Rate : 088 BPM Atrial Rate : 088 BPM P-R Int : 140 ms QRS Dur : 084 ms QT Int : 378 ms P-R-T Axes : 026 035 023 degrees QTc Int : 457 ms Normal sinus rhythm Normal ECG Confirmed by YOSVANY ROWLAND ([id number]), clinical editor AMI TOUSSAINT ([id number]) on 03/28/2020 8:13:12 AM Referred By: SAHRA Confirmed By:YOSVANY ROWLAND
--- NOTE | 2020-03-21 14:43 | ED.DCSUM_ITS ---
History of Present Illness Chief Complaint: Wound Informant: Patient Onset: Days - 3 Context: Gradual Onset Timing: Continuous Quality of Pain: Aching Location: right foot/2nd toe Current Severity: Severe Maximum Severity: Severe Worsened by: touching or moving Relieved by: leaving alone Associated Symptoms: Parasthesia. Negative for: Weakness, Loss of Funtion Narrative: Patient states she has had a nonhealing ulcerated wound in the bottom of her right second toe for months and has been seeing Dr. Martin. Due to a nonhealing amputation has been discussed but not decided on yet. Patient states 3 days ago it started getting red painful draining infected, and is getting worse. She called her doctor but she is out of town so she states that she was advised to come to the ER and have us contact the safety clothing and equipment developer on-call. She states it has never been infected until several days ago. She is feeling achy all over and feels she is going septic. She denies any fevers, chills, lightheadedness, shortness of breath, or other systemic symptoms. She is a diabetic and has peripheral neuropathy, she usually is insensate in her feet, but now her pain is severe in her right foot. - Past Medical History (1) Chronic ulcer of right foot with fat layer exposed Status: Chronic (2) Depression with anxiety Status: Chronic (3) Fibromyalgia Status: Chronic (4) Hyperlipidemia Status: Chronic (5) Meniere disease Status: Chronic (6) Obesity (BMI 30-39.9) Status: Chronic (7) Type 2 diabetes mellitus with diabetic polyneuropathy Status: Chronic (8) Osteomyelitis of second toe of right foot Status: Suspected Past Medical History - Allergies and Home Meds Allergies/Adverse Reactions: Allergies clindamycin Allergy (Verified 03/21/20 14:16) Hives erythromycin base [From E-Mycin] Allergy (Verified 03/21/20 14:16) Hives Primary Care Physician: Shirley Garcia MD [Primary Care Provider] - Surgical History: appendectomy, - - T+A, BLTL, appendectomy, right great toe amputation. Lives: Spouse/ Significant Other Smoking Status: Current every day smoker - Family History Maternal Family History: Reports: - - Thyroid disease. Paternal Family History: Reports: - - Denies known paternal medical history including cardiac history. Review of Systems General: Reports: Malaise. Denies: Chills, Fever, Sweats Eyes: Denies: Visual changes - bilaterally, Diplopia ENT: Denies: Rhinorrhea, Sore throat Cardiovascular: Denies: Chest pain, Palpitations Respiratory: Denies: Dyspnea, Cough, Dyspnea on exertion Gastrointestinal: Denies: Abdominal pain, Nausea, Vomiting, Diarrhea, Melena, Hematochezia Genitourinary: Denies: Dysuria, Hematuria, Frequency Musculoskeletal: Reports: Myalgias, Extremity Pain Skin: Reports: Wounds. Denies: Rash Neurological: Reports: Numbness. Denies: Headache, Weakness Physical Exam Vital Signs/Narrative: Vital Signs Temp Pulse Resp BP Pulse Ox 03/21/20 14:17 98.8 F 95 18 135/75 H 99 Inital Vital Signs reviewed: Yes General: Well nourished, Well developed, Obese, - - nad Head: Normocephalic, Atraumatic Eyes: Perrl, EOMI ENT: No Trauma, Moist Mucous Membranes Neck: Nontender, Full ROM Cardiovascular: Regular rate, Regular rhythm, No murmurs. Negative for: Tachycardia Respiratory: No distress, CTA bilaterally, Chest nontender Abdomen: Soft, Nontender, Nondistended, Normal bowel sounds Back: Nontender Skin: Normal color, No rash, - - Ulcerated 1 cm or less wound on the plantar aspect distal right second toe. The great toe has been amputated remotely. The second toe is erythematous, very tender, there is a scant amount of discharge within the wound, and there is erythema spreading from the toe dorsally to the midfoot. There is no erythema above this but she is tender severely throughout the foot, and the distal lower leg, which is normal-appearing in the skin. There is no palpable cords there is no lymphangitis throughout the right lower extremity. There is only very mild swelling in the right forefoot and no swelling elsewhere in the right lower extremity. I see no other wounds. Neurological: Alert, Oriented x3, Cranial nerves II-XII grossly intact, Normal Strength, Parasthesia - Both feet Psychological: - - Anxious Diagnostic/Tx/Re-eval Impressions Foot X-Ray 03/21/20 15:42 IMPRESSION: Status post amputation of the first and second toes. Findings suspicious for evolving acute osteomyelitis involving the distal shaft of the proximal phalanx of the second toe. Electronically Signed: Baldomero Funez MD at 15:56 EDT , Service support , 03/21/20 15:42 Foot min 3 Views [RAD] Stat Laboratory Results 03/21/20 03/21/20 03/21/20 15:10 15:10 15:30 WBC 12.3 H RBC 4.92 Hgb 11.7 L Hct 39.5 MCV 80.3 L MCH 23.8 L MCHC 29.6 L RDW Std Deviation 47.3 H RDW Coeff of Brea 17.2 H Plt Count 342 MPV 9.1 Immature Gran % (Auto) 0.200 Neut % (Auto) 77.5 H Lymph % (Auto) 14.1 L Ross % (Auto) 6.2 Eos % (Auto) 1.5 Baso % (Auto) 0.5 Absolute Neuts (auto) 9.6 H Absolute Lymphs (auto) 1.74 Nucleated RBC % 0 ESR 54 H PT 25.6 H INR 2.4 APTT 54.6 H Sodium 136 Potassium 3.4 L Chloride 101 Carbon Dioxide 25.0 Anion Gap 10 BUN 9 Creatinine 0.70 Estim Creat Clear Calc 70.60 Est GFR (MDRD) Af Amer 115 Est GFR (MDRD) Non-Af 95 BUN/Creatinine Ratio 12.9 Glucose 137 H Lactic Acid Calcium 8.9 Total Bilirubin 0.60 AST 14 L ALT 22 Alkaline Phosphatase 130 H C-React Prot Ext Range 37.60 H Total Protein 7.8 Albumin 3.3 Globulin 4.5 H Albumin/Globulin Ratio 0.7 L 03/21/20 15:30 WBC RBC Hgb Hct MCV MCH MCHC RDW Std Deviation RDW Coeff of Brea Plt Count MPV Immature Gran % (Auto) Neut % (Auto) Lymph % (Auto) Ross % (Auto) Eos % (Auto) Baso % (Auto) Absolute Neuts (auto) Absolute Lymphs (auto) Nucleated RBC % ESR PT INR APTT Sodium Potassium Chloride Carbon Dioxide Anion Gap BUN Creatinine Estim Creat Clear Calc Est GFR (MDRD) Af Amer Est GFR (MDRD) Non-Af BUN/Creatinine Ratio Glucose Lactic Acid 0.7 Calcium Total Bilirubin AST ALT Alkaline Phosphatase C-React Prot Ext Range Total Protein Albumin Globulin Albumin/Globulin Ratio - Rhythm Strip Rhythm Strip: Sinus Rhythm Rate: 88 Ectopy: None - EKG Initial EKG Interpretation: Sinus Rhythm, No Acute Injury Pattern - normal EKG - Medical Decision Making Discussed with Dr. caba who is covering for his , he would be happy to consult on this patient and agrees with admitting her with IV antibiotics. X- ray shows changes consistent with osteomyelitis in the area where the wound/infection is present clinically. The CRP and ESR and white blood count all elevated. There is coagulopathy for unknown reason. Lactate is within normal limits, wound culture and blood cultures were sent prior to starting Zosyn and vancomycin. Plan is for admission to medical surgical and podiatry consultation. There is no subcutaneous emphysema, necrotic tissue, or apparent clinical indication for emergent operative intervention. ED Disposition - Plan for ED Patient: Disposition: [facility] Diagnosis: Osteomyelitis of toe of right foot, Chronic ulcer of right foot with fat layer exposed Referrals: Shirley Garcia MD [Primary Care Provider] -
[2020-03-21] MEDS: Morphine 4 MG/ML Syringe IV (15:21)
[2020-03-21] MEDS: 0.9% Normal Saline 1,000 ML 999 ML IV (15:21)
[2020-03-21 15:27] LABS: Absolute Lymphocyte Count 1.74 X10^3/uL (0.83-4.51); Absolute Neutrophil Count 9.6 X10^3/uL (2.0-7.7); Basophil# 0.06 X10^3/uL; Basophil% 0.5 % (0-1); Eosinophil# 0.19 X10^3/uL; Eosinophils% 1.5 % (0-5); Hematocrit 39.5 % (37-47); Hemoglobin 11.7 g/dL (12.0-15.0); Lymphocyte # 1.74 X10^3/ul (4.0); Lymphocyte % 14.1 % (19-41); Mean Corp Hgb Conc 29.6 g/dL (32-36); Mean Corpuscular Hgb 23.8 pg (27.0-32.0); Mean Corpuscular Volume 80.3 fL (81-99); Mean Platelet Vol. 9.1 fl (6.2-12.0); Monocyte# 0.77 X10^3/uL; Monocyte% 6.2 % (0-10); NRBC Flagged by Analyzer 0 % (0-5); Neutrophil # 9.55 X10^3/uL (2.7-7.7); Neutrophil % 77.5 % (47-70); Platelet Count 342 K/mm3 (150-450); RBC Distribution Width CV 17.2 % (11.6-14.6); RBC Distribution Width SD 47.3 fl (35.1-43.9); Red Blood Count 4.92 M/mm3 (4.2-5.4); White Blood Count 12.3 K/mm3 (4.4-11.0)
--- NOTE | 2020-03-21 15:42 | RAD_ITS ---
STUDY: X-RAY - RIGHT FOOT CLINICAL: Female, 49 years old. INFECTED 2ND TOE ON RIGHT FOOT TECHNIQUE: 3 view(s) of the foot. COMPARISON: None. FINDINGS: Post surgical changes status post amputation of the great toe at the first metatarsal phalangeal joint. There is amputation of the second toe through the PIP joint. There is soft tissue swelling at the operative site as well as diffusely increased lucency involving the articular surface of the distal shaft of the proximal phalanx suggesting early osteomyelitis. This may be further assessed with three-phase bone scan or MRI. RAD/Foot min 3 Views IMPRESSION: Status post amputation of the first and second toes. Findings suspicious for evolving acute osteomyelitis involving the distal shaft of the proximal phalanx of the second toe. Electronically Signed: Baldomero Funez MD at 15:56 EDT , Service support ,
[2020-03-21 15:48] LABS: Erythrocyte Sedimentation Rate 54 mm/hr (0-20)
[2020-03-21 15:52] LABS: International Normalized Ratio 2.4; Prothrombin Time (Protime)PT. 25.6 SECONDS (11.7-14.9)
[2020-03-21 15:54] LABS: Partial Thromboplast Time 54.6 Seconds (24.1-36.2)
[2020-03-21 15:58] LABS: ALB/GLOB Ratio 0.7 RATIO (0.9-2.4); AST(SGOT) 14 U/L (15-37); Alanine Aminotransfer ALT/SGPT 22 U/L (13-56); Albumin, Serum 3.3 g/dL (3.2-5.0); Alkaline Phosphatase 130 U/L (45-117); Anion Gap 10 (5-15); BUN 9 mg/dL (7-18); BUN/Creat Ratio 12.9 RATIO (10-20); Calcium,Total 8.9 mg/dL (8.5-10.1); Chloride 101 mmol/L (98-107); EST Glomerular Filtration Rate 95 mL/min (>60); Est Glom Filt Rate - Afr Amer 115 mL/min (>60); Globulin 4.5 g/dL (2.2-4.2); Glucose 137 mg/dL (74-106); Potassium 3.4 mmol/L (3.5-5.1); Protein, Total 7.8 g/dL (6.4-8.2); Sodium Level 136 mmol/L (136-145)
[2020-03-21 16:16] LABS: Lactic Acid 0.7 mmol/L (0.4-1.9)
--- NOTE | 2020-03-21 17:26 | HP.PCM_ITS ---
<Marcelle Lopez - Last Filed: 03/21/20 17:47> Problem List (1) Osteomyelitis of toe of right foot Status: Suspected (2) Meniere disease Status: Chronic (3) Osteomyelitis of second toe of right foot Status: Suspected (4) Chronic ulcer of right foot with fat layer exposed Status: Chronic (5) Type 2 diabetes mellitus with diabetic polyneuropathy Status: Chronic (6) Hammer toe of right foot Status: Chronic (7) Obesity (BMI 30-39.9) Status: Chronic (8) Vertigo Status: Chronic (9) Hyperlipidemia Status: Chronic (10) Fibromyalgia Status: Chronic (11) Depression with anxiety Status: Chronic History of Present Illness Date of Admission: 03/21/20 Chief Complaint: Right second toe redness. The patient is a 49 year old F who presents to the Emergency Department due to right second toe redness. Patient reports this began on Friday and redness has spread down her foot since that time. She denies fever. Reports shaking chills. States she normally does not have much feeling in her feet however has had stabbing pain in her right second toe since this began. She reports foul- smelling purulent drainage. She denies nausea, vomiting. She has not been on antibiotics. Patient follows with Dr. Martin, podiatry. She has a past medical history of type 2 diabetes mellitus with diabetic polyneuropathy, tobacco dependence, hypertension, hyperlipidemia, hypothyroidism, fibromyalgia, obesity. Past Medical History Past Medical History (Chronic Problems): Chronic Problems Meniere disease (Chronic) Chronic ulcer of right foot with fat layer exposed (Chronic) Type 2 diabetes mellitus with diabetic polyneuropathy (Chronic) Hammer toe of right foot (Chronic) Obesity (BMI 30-39.9) (Chronic) Vertigo (Chronic) Hyperlipidemia (Chronic) Fibromyalgia (Chronic) Depression with anxiety (Chronic) Allergies clindamycin Allergy (Verified 03/21/20 14:16) Hives erythromycin base [From E-Mycin] Allergy (Verified 03/21/20 14:16) Hives Home Medications: Ambulatory Orders Medication Instructions Recorded Famotidine [Pepcid] 20 mg PO BID 05/18/19 Hydroxyzine Pamoate [Vistaril] 50 mg PO TID PRN PRN 05/18/19 traZODone [Desyrel] 100 mg PO QHS 06/12/19 Duloxetine Hcl [Cymbalta] 30 mg PO DAILY PRN PRN 06/13/19 Albuterol Inhaler [Ventolin Hfa] 1 - 2 puff INHALATION Q6H PRN PRN 08/30/19 Atorvastatin Calcium [Lipitor] 80 mg PO QHS 08/30/19 Biotin 1 mg PO DAILY 08/30/19 Dulaglutide [Trulicity] 0.75 mg SQ WE 08/30/19 Insulin Aspart [Novolog Flexpen] See Protocol SQ TIDCM 08/30/19 Nicotine [Nicoderm Cq] 21 mg TRANSDERM. DAILY patch 09/02/19 Cyanocobalamin (Vitamin B-12) 1,000 mcg PO DAILY 03/21/20 [B-12] Duloxetine HCl 60 mg PO DAILY@1800 03/21/20 Hydrochlorothiazide 12.5 mg PO DAILY 03/21/20 Insulin Degludec [Tresiba 100 unit SQ DAILY 03/21/20 Flextouch U-100] Losartan Potassium [Cozaar] 50 mg PO DAILY 03/21/20 Multivitamin with Minerals 1 tab PO DAILY 03/21/20 [Multiple Vitamin] Pregabalin [Lyrica] 100 mg PO BID 03/21/20 Surgical History: appendectomy, - - T+A, BLTL, appendectomy, right great toe amputation. Right second toe partial amputation. Psychiatric History: Anxiety, Depression DATA ARCHITECT History: No pertinent DATA ARCHITECT history Lives: Alone Smoking Status: Current every day smoker Tobacco Use: Cigarettes - Half pack per day Alcohol: None Drugs: None - *Family History Maternal History Items: - - Thyroid disease. Paternal History Items: Asthma, - - Denies known paternal medical history including cardiac history. Review of Systems Constitutional: Reports: Chills, Malaise. Denies: Fever HEENT: Denies: Head Aches, Sinus Congestion, Sinus Drainage Cardiovascular: Denies: Chest Pain, Palpitations Respiratory: Denies: Cough, Shortness of breath at rest, Sputum production Gastrointestinal: Denies: Abdominal Pain, Nausea, Vomiting Genitourinary: Denies: Dysuria Musculoskeletal: Denies: Joint Pain, Joint Tenderness Skin: Reports: - - Right second toe distal wound Neurological: Denies: Numbness, Tingling, Focal weakness Psychiatric: Reports: Anxiety, Depression Hematologic/ Lymphatic: Denies: Easy Bruising, Easy Bleeding VTE Information - Inpt Only VTE Present on Admission: No VTE Mechan Device Prophylaxis: None VTE Pharm Prophylaxis ordered?: Yes Patient Problems: Active and Suspected Problems Osteomyelitis of toe of right foot (Suspected) Osteomyelitis of toe of right foot (Acute) - Physical Exam Vitals/I&O's: Vital Signs Temp Pulse Resp BP Pulse Ox 98.7 F 92 17 164/89 H 99 03/21/20 16:00 03/21/20 16:00 03/21/20 16:00 03/21/20 16:00 03/21/20 16:00 Oxygen Delivery Method Room Air Weight: 220 lb Body Mass Index (BMI) 43.0 Finger Stick Blood Glucose 229 Intake and Output for Last 24 Hours 03/19/20 03/20/20 03/21/20 23:59 23:59 23:59 Intake Total 50 / 50 Balance 50 / 50 General: Alert, Oriented x3, Cooperative HEENT: Atraumatic, PERRLA, EOMI, Normocephalic Neck: Supple, No JVD, Negative Carotid Bruits Lungs: Clear to auscultation, Diminished Cardiovascular: Regular rate, No murmurs Abdomen: Bowel Sounds Present, Soft, Non Tender, Non-Distended, Obese Extremities: No clubbing, No cyanosis, No edema Skin: - - Right second toe distal ulceration with surrounding redness and purulent drainage. Musculoskeletal: No Tenderness to Palpation of Joints or Extremities Neurological: Cranial nerves II-XII grossly intact, Neuro grossly intact Psych/Mental Status: Normal Affect, Appropriate Laboratory Results 03/21/20 15:10: WBC 12.3 H, RBC 4.92, Hgb 11.7 L, Hct 39.5, MCV 80.3 L, MCH 23.8 L, MCHC 29.6 L, RDW Std Deviation 47.3 H, RDW Coeff of Brea 17.2 H, Plt Count 342, MPV 9.1, Immature Gran % (Auto) 0.200, Neut % (Auto) 77.5 H, Lymph % (Auto) 14.1 L, [place] % (Auto) 6.2, Eos % (Auto) 1.5, Baso % (Auto) 0.5, Absolute Neuts (auto) 9.6 H, Absolute Lymphs (auto) 1.74, Nucleated RBC % 0, ESR 54 H 03/21/20 15:10: Sodium 136, Potassium 3.4 L, Chloride 101, Carbon Dioxide 25.0, Anion Gap 10, BUN 9, Creatinine 0.70, Estim Creat Clear Calc 70.60, Est GFR (MDRD) Af Amer 115, Est GFR (MDRD) Non-Af 95, BUN/Creatinine Ratio 12.9, Glucose 137 H, Calcium 8.9, Total Bilirubin 0.60, AST 14 L, ALT 22, Alkaline Phosphatase 130 H, C-React Prot Ext Range 37.60 H, Total Protein 7.8, Albumin 3.3, Globulin 4.5 H, Albumin/Globulin Ratio 0.7 L 03/21/20 15:30: PT 25.6 H, INR 2.4, APTT 54.6 H 03/21/20 15:30: Lactic Acid 0.7 Current Medications Sodium Chloride () 250 mls @ 15 mls/hr IV .[id number] PRN PRN Reason: Additional IVPB Infusion Last Admin: 03/21/20 15:41 Dose: 15 mls/hr Documented by: Vancomycin HCl 1,500 mg/ (Sodium Chloride) 530 mls @ 250 mls/hr IV X1 ONE Stop: 03/21/20 19:07 Assessment/Plan All Active Problems Osteomyelitis of toe of right foot (Acute) 1. Right second toe cellulitis with suspected [id number] demonstrates possible evolving acute osteomyelitis of the distal shaft of the proximal phalanx of the right second toe. Afebrile. Mild leukocytosis. Begin IV vancomycin and IV Zosyn. Podiatry consult, Dr. Muniz. Wound and blood cultures pending. Wound RN consult. Obtain MRI right foot. 2. Type 2 diabetes mellitus with diabetic yhexidsddthboy-Sxtx-Khigi with sliding scale insulin. Lantus 20 units twice daily. Check hemoglobin A1c. Hemoglobin A1c August 2000 1812%. 3. Tobacco dependence-encouraged cessation. Nicotine replacement patch. 4. Hypertension-stable, continue home hydrochlorothiazide, lisinopril. 5. Hyperlipidemia-not on regimen. 6. Hypothyroidism-continue Synthroid regimen. 7. Obesity-encouraged diet lifestyle modifications. 8. Fibromyalgia-on Lyrica. 9. Anxiety/depression-continue duloxetine, trazodone. DVT prophylaxis-Lovenox subcu This patient was seen by ANGELES Ram under the supervision of Dr. Pineda. <Gail Pineda - Last Filed: 03/21/20 20:12> History of Present Illness The patient is a 49 year old F [] Past Medical History Allergies clindamycin Allergy (Verified 03/21/20 14:16) Hives erythromycin base [From E-Mycin] Allergy (Verified 03/21/20 14:16) Hives - Physical Exam Vitals/I&O's: Vital Signs Temp Pulse Resp BP Pulse Ox 98.5 F 89 15 126/71 H 99 03/21/20 17:00 03/21/20 17:00 03/21/20 17:00 03/21/20 17:00 03/21/20 17:00 Oxygen Delivery Method Room Air Weight: 99.79 kg Body Mass Index (BMI) 43.0 Finger Stick Blood Glucose 229 Intake and Output for Last 24 Hours 03/19/20 03/20/20 03/21/20 23:59 23:59 23:59 Intake Total 1050 / 1050 Balance 1050 / 1050 Laboratory Results 03/21/20 15:10: WBC 12.3 H, RBC 4.92, Hgb 11.7 L, Hct 39.5, MCV 80.3 L, MCH 23.8 L, MCHC 29.6 L, RDW Std Deviation 47.3 H, RDW Coeff of Brea 17.2 H, Plt Count 342, MPV 9.1, Immature Gran % (Auto) 0.200, Neut % (Auto) 77.5 H, Lymph % (Auto) 14.1 L, [place] % (Auto) 6.2, Eos % (Auto) 1.5, Baso % (Auto) 0.5, Absolute Neuts (auto) 9.6 H, Absolute Lymphs (auto) 1.74, Nucleated RBC % 0, ESR 54 H 03/21/20 15:10: Sodium 136, Potassium 3.4 L, Chloride 101, Carbon Dioxide 25.0, Anion Gap 10, BUN 9, Creatinine 0.70, Estim Creat Clear Calc 70.60, Est GFR (MDRD) Af Amer 115, Est GFR (MDRD) Non-Af 95, BUN/Creatinine Ratio 12.9, Glucose 137 H, Calcium 8.9, Total Bilirubin 0.60, AST 14 L, ALT 22, Alkaline Phosphatase 130 H, C-React Prot Ext Range 37.60 H, Total Protein 7.8, Albumin 3.3, Globulin 4.5 H, Albumin/Globulin Ratio 0.7 L 03/21/20 15:30: PT 25.6 H, INR 2.4, APTT 54.6 H 03/21/20 15:30: Lactic Acid 0.7 Current Medications Sodium Chloride () 250 mls @ 15 mls/hr IV .[id number] PRN PRN Reason: Additional IVPB Infusion Last Admin: 03/21/20 15:41 Dose: 15 mls/hr Documented by: Vancomycin HCl 1,500 mg/ (Sodium Chloride) 530 mls @ 250 mls/hr IV X1 ONE Stop: 03/21/20 19:07 Last Admin: 03/21/20 17:36 Dose: 250 mls/hr Documented by: Assessment/Plan This patient was seen in conjunction with Marcelle Lopez NP. I have independently interviewed and examined the patient and reviewed pertinent historical, laboratory, and other data. Please refer to her note for patient's presentation, findings, and recommendations. 49-year-old female with past medical history of sepsis secondary to MRSA/strep agalactiae osteomyelitis of the first and second toes osteomyelitis status post amputations, type II DM complicated by diabetic poorly neuropathy, hypothyroidism, who comes in with right second toe redness which started 3 days prior to presentation. Patient admits to chills but denies fever. Denied dizziness or palpitations or shortness of breath or nausea vomiting. She has had worsening pain as well as increased drainage from her foot. Vitals were reviewed -stable, slight elevation in blood pressure on account of pain Physical Exam: Gen: Looks in some discomfort, not pale, not jaundiced, alert oriented x3 CVS:HS I +II, regular, no murmurs RESP: CTA GI: BS present and normal, nontender, no palpable organs EXT: Differential warmth of the right lower leg, erythema of the right second toe stump, open wound with drainage to the plantar surface of the distal phalanx. Labs reviewed: WBC count is 12.3, hemoglobin 11.7, platelet count 342, potassium 3.4, INR 2.4 Foot x-ray shows evolving acute osteomyelitis involving distal shaft of the proximal phalanx of the second toe on the right. ASSESSMENT: 1. Acute right second toe osteomyelitis with cellulitis 2. Type II DM complicated by diabetic polyneuropathy 3. Hypokalemia 4. Hypertension, uncontrolled secondary to pain 5. Nicotine dependence 6. Hyperlipidemia 7. Hypothyroidism 8. Obesity 9. Anxiety/depression/fibromyalgia Meds reviewed Plan: Continue on IV Zosyn and vancomycin; pharmacy to dose vancomycin per trough Podiatry consulted from ED; Would also consult ID MRI of the foot Pain control, Check HbA1c, repeat INR in a.m. Hold Lovenox on account of elevated INR Start on Lantus 20 units twice daily Inpatient E&M: 78716 Init Hosp L3
--- NOTE | 2020-03-21 18:27 | MRI_ITS ---
STUDY: MRI RIGHT FOREFOOT WITHOUT CONTRAST REASON FOR EXAM: Female, 49 years old. R 2ND TOE GOT CAUGHT ON METAL 2 MONS AGO, NON HEALING WOUND, H/O 1ST TOTAL AND 2ND PARTIAL TOE AMPUTATION TECHNIQUE: Standardized fat and water weighted pulse sequences were obtained in all 3 orthogonal planes. COMPARISON: Right foot x-ray dated March 21, 2020 FINDINGS: The phalanges of the great toe have been previously amputated. The middle and distal phalanges of the second digit have been previously amputated. An open soft tissue ulcer is present at the tip of the second proximal phalanx with mild cortical erosion and diffuse edema throughout the bone compatible with osteomyelitis. Cortical thickening and chronic periosteal reaction is also seen indicating acute on chronic process. There are no additional areas concerning for active osteomyelitis. Mild reactive signal is present in the proximal phalanx third digit. A small effusion is present in the second MTP joint space. Mild diffuse subcutaneous edema is present around the foot. Normal metatarsophalangeal joint of the hallux. Normal tibial and fibular sesamoids, with normal sesamoids-first metatarsal articulations. Normal interphalangeal joint of the hallux. Normal proximal and distal phalanges of the great toe. Normal medial and lateral heads of the flexor hallucis brevis tendons. Normal flexor and extensor hallucis longus tendons. Normal second through fifth metatarsophalangeal (MTP) joints. Normal interphalangeal joints of the second through fifth toes. Normal proximal, middle and distal phalanges of the second through fifth toes. Normal first through fourth intermetatarsal spaces. Normal flexor and extensor tendons of the second through fifth toes. Normal visualized metatarsi. There is diffuse atrophy of the intrinsic muscles of the forefoot consistent with a peripheral neuropathy. No visualized soft tissue abscess. There is no demonstrated soft tissue abnormality. MRI/Lower Ext/No Jt/w/o IMPRESSION: 1. Osteomyelitis in the proximal phalanx of the second digit with an open soft tissue ulcer and surrounding soft tissue edema/cellulitis. 2. A small effusion is present in the second MTP joint space. Electronically Signed: Diogenes Serrano MD at 21:40 EDT , Service support ,
--- NOTE | 2020-03-21 18:54 | PCM.CONS.GEN ---
Reason for Consult Date of Consultation: 03/21/20 Reason for Consultation: Right toe ulcer infection History of Present Illness: The patient is a 49 year old female with history of diabetes, previous right 1st toe amputation, and partial 2nd toe amputation has chronic ulceration to the distal aspect of the residual right 2nd toe, which is now infected. Patient has noted redness, swelling and drainage. ESR, CRP and WBC elevated. Xrays findings c/w osteomyelitis. Patient is scheduled to get MRI today. Patient has been admitted for further workup and treatment. Patient relates blood sugars have not been well controlled recently. Patient relates she does not feel well. Patient lives at home with her boyfriend. Past Medical History Past Medical History (Chronic Problems): Chronic Problems Meniere disease (Chronic) Chronic ulcer of right foot with fat layer exposed (Chronic) Type 2 diabetes mellitus with diabetic polyneuropathy (Chronic) Hammer toe of right foot (Chronic) Obesity (BMI 30-39.9) (Chronic) Vertigo (Chronic) Hyperlipidemia (Chronic) Fibromyalgia (Chronic) Depression with anxiety (Chronic) Allergies clindamycin Allergy (Verified 03/21/20 14:16) Hives erythromycin base [From E-Mycin] Allergy (Verified 03/21/20 14:16) Hives Home Medications: Ambulatory Orders Medication Instructions Recorded Famotidine [Pepcid] 20 mg PO BID 05/18/19 Hydroxyzine Pamoate [Vistaril] 50 mg PO TID PRN PRN 05/18/19 traZODone [Desyrel] 100 mg PO QHS 06/12/19 Duloxetine Hcl [Cymbalta] 30 mg PO DAILY PRN PRN 06/13/19 Albuterol Inhaler [Ventolin Hfa] 1 - 2 puff INHALATION Q6H PRN PRN 08/30/19 Atorvastatin Calcium [Lipitor] 80 mg PO QHS 08/30/19 Biotin 1 mg PO DAILY 08/30/19 Dulaglutide [Trulicity] 0.75 mg SQ WE 08/30/19 Insulin Aspart [Novolog Flexpen] See Protocol SQ TIDCM 08/30/19 Nicotine [Nicoderm Cq] 21 mg TRANSDERM. DAILY patch 09/02/19 Cyanocobalamin (Vitamin B-12) 1,000 mcg PO DAILY 03/21/20 [B-12] Duloxetine HCl 60 mg PO DAILY@1800 03/21/20 Hydrochlorothiazide 12.5 mg PO DAILY 03/21/20 Insulin Degludec [Tresiba 100 unit SQ DAILY 03/21/20 Flextouch U-100] Losartan Potassium [Cozaar] 50 mg PO DAILY 03/21/20 Multivitamin with Minerals 1 tab PO DAILY 03/21/20 [Multiple Vitamin] Pregabalin [Lyrica] 100 mg PO BID 03/21/20 Surgical History: appendectomy, - - T+A, BLTL, appendectomy, right great toe amputation. Right second toe partial amputation. 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 Paternal History Items: Asthma, - - Denies known paternal medical history including cardiac history. Review of Systems Constitutional: Denies: Fever Gastrointestinal: Denies: Nausea, Vomiting Musculoskeletal: Reports: Foot Pain Patient Problems: Active and Suspected Problems Osteomyelitis of toe of right foot (Suspected) Osteomyelitis of toe of right foot (Acute) - Physical Exam Vitals/I&O's: Vital Signs Temp Pulse Resp BP Pulse Ox 98.5 F 89 15 126/71 H 99 03/21/20 17:00 03/21/20 17:00 03/21/20 17:00 03/21/20 17:00 03/21/20 17:00 Oxygen Delivery Method Room Air Weight: 106.549 kg Body Mass Index (BMI) 39.0 Finger Stick Blood Glucose 229 Intake and Output for Last 24 Hours 03/19/20 03/20/20 03/21/20 23:59 23:59 23:59 Intake Total 1050 / 1050 Balance 1050 / 1050 General: Alert, Oriented x3, Cooperative, No apparent distress Extremities: Capillary Refill Less than 3 Seconds, No Calf Tenderness, Peripheral Pulses Normal, - - Open ulceration to the distal aspect of the right 2nd toe with drainage, there is localized erythema/cellulitis and edema to the toe, probes deep c/w infection/osteomyelitis. There are no other open lesions, no visible abscess, no crepitus, no fluctuance bilateral foot/ankle. Sensation significantly diminished bilateral foot c/w diabetic neuropathy. There is some tenderness to the right 2nd toe, otherwise no other POP or pain on ROM to the foot/ankle bilateral. Absent 1st toe, right foot from previous amputation. Musculoskeletal: No Muscle Wasting Psych/Mental Status: Normal Affect, Appropriate, Alert and oriented to time, place, person, mood and affect Laboratory Results 03/21/20 15:10: WBC 12.3 H, RBC 4.92, Hgb 11.7 L, Hct 39.5, MCV 80.3 L, MCH 23.8 L, MCHC 29.6 L, RDW Std Deviation 47.3 H, RDW Coeff of Brea 17.2 H, Plt Count 342, MPV 9.1, Immature Gran % (Auto) 0.200, Neut % (Auto) 77.5 H, Lymph % (Auto) 14.1 L, [place] % (Auto) 6.2, Eos % (Auto) 1.5, Baso % (Auto) 0.5, Absolute Neuts (auto) 9.6 H, Absolute Lymphs (auto) 1.74, Nucleated RBC % 0, ESR 54 H 03/21/20 15:10: Sodium 136, Potassium 3.4 L, Chloride 101, Carbon Dioxide 25.0, Anion Gap 10, BUN 9, Creatinine 0.70, Estim Creat Clear Calc 70.60, Est GFR (MDRD) Af Amer 115, Est GFR (MDRD) Non-Af 95, BUN/Creatinine Ratio 12.9, Glucose 137 H, Calcium 8.9, Total Bilirubin 0.60, AST 14 L, ALT 22, Alkaline Phosphatase 130 H, C-React Prot Ext Range 37.60 H, Total Protein 7.8, Albumin 3.3, Globulin 4.5 H, Albumin/Globulin Ratio 0.7 L 03/21/20 15:10: Hemoglobin A1c Pending 03/21/20 15:30: PT 25.6 H, INR 2.4, APTT 54.6 H 03/21/20 15:30: Lactic Acid 0.7 03/21/20 18:36: S.aureus Protein A PCR Pending, MRSA (PCR) Pending Current Medications Acetaminophen (Tylenol) 650 mg PO Q6H PRN PRN PRN Reason: Pain Score 1-10/Temp > 100.7 F Atorvastatin Calcium (Lipitor) 80 mg PO QHS [facility] Cyanocobalamin (Vitamin B12) 1,000 mcg PO DAILYCM [facility] Dextrose (D50w Syringe) 0 gm IV X1 PRN; Protocol PRN Reason: Hypoglycemia Duloxetine HCl (Cymbalta) 60 mg PO DAILY@1800 [facility] Enoxaparin Sodium (Lovenox) 40 mg SC DAILY [facility] Famotidine (Pepcid) 20 mg PO BID [facility] Glucagon () 1 mg IM .X1 PRN PRN Reason: Hypoglycemia Hydrochlorothiazide () 12.5 mg PO DAILY [facility] Vancomycin HCl 1,500 mg/ (Sodium Chloride) 530 mls @ 250 mls/hr IV X1 ONE Stop: 03/21/20 19:07 Last Admin: 03/21/20 17:36 Dose: 250 mls/hr Documented by: Sodium Chloride () 1,000 mls @ 100 mls/hr IV .Q10H [facility] Vancomycin IV Pharmacy to Dose (1 ea/ Sodium Chloride) 500 mls @ 250 mls/hr IV X1 PRN; Protocol PRN Reason: Rx to Dose Piperacillin Sod/Tazobactam (Sod 3.375 gm/ Sodium Chloride) 50 mls @ 12.5 mls/hr IV Q8 [facility] Insulin Glargine (Lantus (Bkc)) 20 units SC BID [facility] Insulin Human Lispro (Humalog Kwikpen (Bkc)) 0 unit SC ACHS ASHLEY; Protocol Insulin Human Lispro (Humalog Kwikpen (Bkc)) 10 unit SC TIDAC [facility] Losartan Potassium (Cozaar) 50 mg PO DAILY [facility] Morphine Sulfate () 2 mg IV Q3H PRN PRN PRN Reason: Pain Score 6-10/10 Nicotine (Nicoderm Cq (Pbkc)) 21 mg TRANSDERM. DAILY [facility] Nicotine (Nicoderm Cq (Pbkc)) 21 mg TRANSDERM. X1 ONE Stop: 03/21/20 18:45 Ondansetron HCl (Zofran) 4 mg IV Q8H PRN PRN PRN Reason: NAUSEA/VOMITING Oxycodone HCl (Oxyir) 5 mg PO Q4H PRN PRN PRN Reason: Pain Score 4-5/10 Pregabalin (Lyrica) 100 mg PO BID [facility] Sodium Chloride () 10 - 40 ml IV UD PRN PRN Reason: SALINE FLUSH Trazodone HCl (Desyrel) 100 mg PO QHS [facility] Assessment/Plan All Active Problems Osteomyelitis of toe of right foot (Acute) Osteomyelitis right 2nd toe Diabetes w/ peripheral neuropathy Reviewed diagnostic data. MRI was been ordered for further evaluation. Culture has been obtained and is pending. Patient has been started on IV antibiotics. We discussed debridement/amputation of the right 2nd toe. Reviewed rationale of this with patient. Patient would like to proceed with this, we will likely plan to proceed w/ this tomorrow. Ordered LEAS for further evaluation of arterial flow. No weightbearing right foot. Apply betadine, gauze, kerlix and jessica dressing to right foot. Reviewed importance of proper blood sugar control to help optimize healing. Podiatry will continue to follow, thank you for consultation.
[2020-03-21 18:57] LABS: Hemoglobin A1c 9.9 % (3.8-5.6)
--- NOTE | 2020-03-21 19:01 | ART_ITS ---
Reason For Study: ulcer Procedure A bilateral lower extremity continuous wave Doppler with analog waveform analysis,segmental pressures,and ankle brachial indexes without exercise. Left Segmental Pressures Left posterior tibial artery = 142mmHg. Left dorsalis pedis artery = 149mmHg. Left digit = 133 mmHg. Right Segmental Pressures Right brachial= 100mmHg. Right posterior tibial artery = 130mmHg. Right dorsalis pedis artery = 138mmHg. Indices The right ankle brachial index by the posterior tibial artery is 1.3. The right ankle brachial index by the dorsalis pedis is 1.38. The left ankle brachial index by the posterior tibial artery is 1.42. The left ankle brachial index by the dorsalis pedis is 1.49. The left digital-brachial index is 1.33. Interpretation Summary Triphasic Doppler waveforms are noted at ankle level bilaterally. Pulse-volume recordings appear satisfactory at all levels bilaterally. The resting right ankle-brachial index is normal. The resting left ankle-brachial index is supra-normal. The right digital-brachial index was not determined due to recent surgery. The left digital-brachial index is normal. There is evidence of arterial calcification distally in the left lower extremity. There is no evidence of significant arterial occlusive disease in the lower extremities bilaterally. Ordering Physician: Baldomero Muniz Performed By: LAYTON WHEELER T
--- NOTE | 2020-03-21 19:11 | PCM.RX.CS ---
Consult Pharmacy has been consulted to manage selected antiobiotic: Vancomycin Type of Consult: New start Suspected Infection: Skin/Soft tissue, Other - POSSIBLE OSTEOMYELITIS Prior Doses of Antibiotics Received/Current Regimen: received 1500mg IV x1 in E.R. starting at 17:36 tonight Labs: Sodium 136 mmol/L (136-145) 03/21/20 15:10 Potassium 3.4 mmol/L (3.5-5.1) L 03/21/20 15:10 Chloride 101 mmol/L (98-107) 03/21/20 15:10 Carbon Dioxide 25.0 mmol/L (21.0-32.0) 03/21/20 15:10 Anion Gap 10 (5-15) 03/21/20 15:10 BUN 9 mg/dL (7-18) 03/21/20 15:10 Creatinine 0.70 mg/dL (0.55-1.02) 03/21/20 15:10 Est GFR (MDRD) Af Amer 115 mL/min (>60) 03/21/20 15:10 Est GFR (MDRD) Non-Af 95 mL/min (>60) 03/21/20 15:10 BUN/Creatinine Ratio 12.9 RATIO (10-20) 03/21/20 15:10 Glucose 137 mg/dL (74-106) H 03/21/20 15:10 Weight used for dosin.5 kg Estimated Creatinine Clearance: >100ml/min Goal Trough: 10-15 mcg/mL Pharmacy Plan for Drug Dosing: Per [facility] dosing protocol, will continue with 1750mg IV q12h. Since this dose is actually greater than the first dose in E.R., will start the 1750mg dose a couple hours earlier than 12 hours after that initial E.R. dose. Will order a trough to be drawn before the 4th total dose. The patient's CrCl of 119ml/min was calculated using an adjusted body weight of 76.8kg since the patient's actual weight is more than 120% of the ideal body weight. Consider increasing to high trough goal range if osteo is confirmed. Pharmacy Service will continue to monitor and adjust dosing as required. Follow-Up Labs: Trough Vancomycin Labs to be done on [date and time ordered]: 03/23/20 02:30
[2020-03-21] MEDS: 0.9% Saline Lock 10 ML Syringe IV ×2 (20:09→22:49)
[2020-03-21] MEDS: Morphine 2 MG/ML Syringe IV (20:10)
[2020-03-21] MEDS: 0.9% Normal Saline 1,000 ML 100 ML IV (20:17)
[2020-03-21] MEDS: DULoxetine Hcl 60 MG Capsule PO (20:25)
[2020-03-21] MEDS: Famotidine 20 MG Tablet PO (20:32)
[2020-03-21] MEDS: traZODone 100 MG Tablet PO (20:34)
[2020-03-21] MEDS: Atorvastatin Calcium 80 MG Tablet PO (20:34)
[2020-03-21 20:37] LABS: M R Staph aureus DNA By PCR Negative (Negative); Probe Check PASS; Specimen Processing Control PASS; Staph aureus DNA By PCR POSITIVE (Negative)
[2020-03-21] MEDS: Pregabalin 50 MG Capsule 100 MG PO (20:37)
--- NOTE | 2020-03-21 20:52 | NURSING ---
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
[2020-03-21] MEDS: Insulin Lispro 100 UNIT/ML INSULN.PEN SC (21:36)
[2020-03-21 22:41] LABS: Bedside Glucose 201 mg/dL (70-110)
[2020-03-21] MEDS: oxyCODONE 5 MG Tablet PO (22:42)
[2020-03-22] VITALS (15 sets, daily range): BP systolic 91–128; BP diastolic 58–72; PULSE 67–100; RESP 14–18; TEMP 36.2–36.9; O2SAT 91–99; BMI 39.1
--- NOTE | 2020-03-22 | BON_PTH ---
PATIENT: KATHRYN ESQUIVEL LOC: MS3 U#:[id number] AGE/SX: 49/F ROOM: PA314 RE03/21/[address]: Dr. Steven Rahman MD : 1970 BED: 1 DIS: 03/24/2020 SPEC #: [id number] RECD: 03/22/20 13:34 STATUS: GALILEO DUARTEVenus #: [id number] MARIE: 03/22/20 00:[address]: Steven Rahman DEPT: SURGICAL PATHOLOGY RECD BY: Ab Medina ENTERED: 03/23/20 07:50 SP TYPE: Bone OTHR DR: MD Dr. Shirley Golden MD Dr. Jeffrey Wunning, DPM Dr. Roger Lorenzo MD Tissues: A - Toe, NOS B - Bone of foot, NOS Procedures: Decalcification bone/plaque Surgery Specimen Level III Surgery Specimen Level IV HEADER OPERATION: Amputation second toe PRE-OP DIAGNOSIS: Osteomyelitis of toe of right foot TISSUE SUBMITTED: A - Second toe, right, B - Clearance fragment second metatarsal MICROSCOPIC DIAGNOSIS A. Second toe, right, amputation: Focal ulceration, acute and chronic inflammation and granulation tissue reaction. Pseudoepitheliomatous hyperplasia and hyperkeratosis. Underlying bone with acute osteomyelitis. B. Clearance fragment second metatarsal: Fragments of bone, cartilage and fibroconnective tissue, negative for acute osteomyelitis. YVETTE:jt 03/29/20 MICROSCOPIC DESCRIPTION Slides are reviewed. GROSS DESCRIPTION A - Received in fixative is one container labeled with the patient's name and designated second toe right. The specimen consists of a portion of toe measuring 4.5 x 1 x 1 cm. The portion of skin measures 3.5 x 2 cm. A focal area of ulceration is noted at the tip of the toe measuring 1.5 x 1 cm. Financial Aid Manager sections are submitted in two cassettes as follows: 1 - ulcerated area, 2 - bone after decalcification. B - Received in fixative is one container labeled with the patient's name and designated clearance fragment second metatarsal. The specimen consists of two fragments of light read soft tissue mixed with possible fragments of bone that in aggregate measure 1 x 0.5 x 0.2 cm. The entire specimen is submitted in one cassette after short decalcification. / YVETTE:jt 03/23/20 TC:2 CPT: 00092, 55043, 06926 x2
[2020-03-22] MEDS: 0.9% Saline Lock 10 ML Syringe IV ×3 (03:10→18:20)
[2020-03-22] MEDS: oxyCODONE 5 MG Tablet PO ×2 (06:32→19:44)
[2020-03-22 06:34] LABS: Absolute Lymphocyte Count 2.31 X10^3/uL (0.83-4.51); Absolute Neutrophil Count 7.3 X10^3/uL (2.0-7.7); Basophil# 0.06 X10^3/uL; Basophil% 0.5 % (0-1); Eosinophils% 2.7 % (0-5); Hematocrit 31.4 % (37-47); Hemoglobin 9.4 g/dL (12.0-15.0); Lymphocyte # 2.31 X10^3/ul (4.0); Lymphocyte % 21.2 % (19-41); Mean Corp Hgb Conc 29.9 g/dL (32-36); Mean Corpuscular Hgb 24.1 pg (27.0-32.0); Mean Corpuscular Volume 80.5 fL (81-99); Mean Platelet Vol. 9.2 fl (6.2-12.0); Monocyte# 0.85 X10^3/uL; Monocyte% 7.8 % (0-10); NRBC Flagged by Analyzer 0 % (0-5); Neutrophil # 7.34 X10^3/uL (2.7-7.7); Neutrophil % 67.3 % (47-70); Platelet Count 278 K/mm3 (150-450); RBC Distribution Width CV 16.9 % (11.6-14.6); White Blood Count 10.9 K/mm3 (4.4-11.0)
[2020-03-22 06:58] LABS: Anion Gap 5 (5-15); BUN 8 mg/dL (7-18); BUN/Creat Ratio 15.8 RATIO (10-20); Calcium,Total 7.6 mg/dL (8.5-10.1); Chloride 109 mmol/L (98-107); EST Glomerular Filtration Rate 138 mL/min (>60); Est Glom Filt Rate - Afr Amer 167 mL/min (>60); Estimated Creatinine Clearance 123.82 ml/min; Glucose 74 mg/dL (74-106); Potassium 3.2 mmol/L (3.5-5.1); Sodium Level 141 mmol/L (136-145)
[2020-03-22 07:36] LABS: Bedside Glucose 80 mg/dL (70-110)
[2020-03-22] MEDS: Famotidine 20 MG Tablet PO ×2 (07:44→19:44)
[2020-03-22] MEDS: Pregabalin 50 MG Capsule 100 MG PO ×2 (07:44→19:44)
[2020-03-22] MEDS: 0.9% Normal Saline 1,000 ML 100 ML IV ×2 (07:46→14:35)
--- NOTE | 2020-03-22 08:05 | NURSING ---
Had discussed patient with Dr Muniz this am. Dr Muniz plans to take patient to surgery later today so there is no need to remove dressing at this time. will follow post op as needed.
[2020-03-22 10:22] LABS: Probe Check PASS; Specimen Processing Control PASS
[2020-03-22 10:26] LABS: Bedside Glucose 77 mg/dL (70-110)
--- NOTE | 2020-03-22 10:50 | CASEMGMT ---
RN CM INDUSTRIAL TECHNOLOGY TEACHER CM to room to meet with patient for initial transition planning/care coordination assessment. CHUCK JACK introduced self and role at [facility]. Pt voices understanding and consents to assessment at this time. Pt resting in bed in no distress at this time. Pt is A/O at this time and answers all questions appropriately. Care providers, pharmacy, and demographics verified/updated at this time. PCP: Dr Garcia Specialists: Dr Martin Preferred Pharmacy: [facility] Insurance: [employer] Prescription Benefit: Yes Living Will/HPOA: States does not have LW or HCPOA . Interested in more information and would like to talk with SW to complete paperwork. Chica Torres, STEFFI, made aware. LNOK: Mother, 4 siblings. Living Arrangements: Lives with her Boyfriend and 11-yr-old son lives with them. They live in a one-story home w/3 steps to enter. No rails. Pt independent w/ADL's. BF/pt share home mgmt tasks. Transportation: Pt states drives self and states no transportation concerns at this time. BF also drives and will be taking pt home @ d/c. DME: Has a glucometer. State it is working properly and she has all the needed supplies for it. Pt states she needs a walker and shower chair. Given list of local DME companies. Pt denies having preference. HHC/SNF: Pt states she went to [facility] about a year ago. Has not had HHC in the past. Pt does not want to go back to a SNF @ D/C. She wants to return home and feels she could manage IV atb's if needed @ discharge. She also states thinks her BF would be able to assist/help as needed. She does not have a preference of HHC agency or Infusion supply company. CM to folow for further discharge planning/needs. Pt voices no further concerns/needs at this time. Advised pt to ask for CM if any further questions/concerns/needs arise. Voices understanding. PLAN: Home. Follow for possible need of IV atb's and HHC. Pt states she needs a walker and shower chair. ID has been consulted. Man ARROYO RN, CM
--- NOTE | 2020-03-22 12:08 | PCM.PROGNOTE ---
<Marcelle Lopez - Last Filed: 03/22/20 12:19> Patient Problems: Active and Suspected Problems Osteomyelitis of toe of right foot (Suspected) Osteomyelitis of toe of right foot (Acute) Subjective: Patient seen and examined. Drowsy this morning. Asking for home Vistaril regimen to be reordered. Denies pain. Denies fever, chills. - Physical Exam Vitals/I&O's: Vital Signs Temp Pulse Resp BP Pulse Ox 97.8 F 73 18 128/67 H 98 03/22/20 10:32 03/22/20 10:32 03/22/20 10:32 03/22/20 10:32 03/22/20 10:32 Oxygen Delivery Method Room Air Weight: 234 lb 14.405 oz Body Mass Index (BMI) 39.1 Finger Stick Blood Glucose 229 Intake and Output for Last 24 Hours 03/20/20 03/21/20 03/22/20 23:59 23:59 23:59 Intake Total 1580.0 / 1780.0 2085 / 2085 Output Total 400 / 400 Balance 1580.0 / 1380.0 1685 / 1685 General: Oriented x3, Cooperative, - - Drowsy HEENT: Atraumatic, PERRLA, EOMI, Normocephalic Oral: Dry Mucosa Neck: Supple, No JVD, Negative Carotid Bruits Lungs: Clear to auscultation, Normal air movement Cardiovascular: Regular rate, No murmurs Abdomen: Bowel Sounds Present, Soft, Non Tender Extremities: No edema, Capillary Refill Less than 3 Seconds Skin: No rashes, No breakdown, - - Right second toe distal ulceration with surrounding redness and purulent drainage. Musculoskeletal: No Tenderness to Palpation of Joints or Extremities Neurological: Cranial nerves II-XII grossly intact, Neuro grossly intact Psych/Mental Status: Flat Affect Microbiology Past 72 Hours 03/21/20 16:15 Wound - Right Foot Wound Culture - Preliminary Staphylococcus aureus Gram negative madeline 03/21/20 15:30 Blood Culture (Wb) - Left Forearm Blood Culture - Preliminary No growth in 48 hours. 03/21/20 15:10 Blood Culture (Wb) - Left Hand Blood Culture - Preliminary No growth in 48 hours. Laboratory Results 03/21/20 15:10: WBC 12.3 H, RBC 4.92, Hgb 11.7 L, Hct 39.5, MCV 80.3 L, MCH 23.8 L, MCHC 29.6 L, RDW Std Deviation 47.3 H, RDW Coeff of Brea 17.2 H, Plt Count 342, MPV 9.1, Immature Gran % (Auto) 0.200, Neut % (Auto) 77.5 H, Lymph % (Auto) 14.1 L, Woodruff % (Auto) 6.2, Eos % (Auto) 1.5, Baso % (Auto) 0.5, Absolute Neuts (auto) 9.6 H, Absolute Lymphs (auto) 1.74, Nucleated RBC % 0, ESR 54 H 03/21/20 15:10: Sodium 136, Potassium 3.4 L, Chloride 101, Carbon Dioxide 25.0, Anion Gap 10, BUN 9, Creatinine 0.70, Estim Creat Clear Calc 70.60, Est GFR (MDRD) Af Amer 115, Est GFR (MDRD) Non-Af 95, BUN/Creatinine Ratio 12.9, Glucose 137 H, Calcium 8.9, Total Bilirubin 0.60, AST 14 L, ALT 22, Alkaline Phosphatase 130 H, C-React Prot Ext Range 37.60 H, Total Protein 7.8, Albumin 3.3, Globulin 4.5 H, Albumin/Globulin Ratio 0.7 L 03/21/20 15:10: Hemoglobin A1c 9.9 H 03/21/20 15:30: PT 25.6 H, INR 2.4, APTT 54.6 H 03/21/20 15:30: Lactic Acid 0.7 03/21/20 18:36: S.aureus Protein A PCR POSITIVE H, MRSA (PCR) Negative 03/21/20 21:35: POC Glucose 201 H 03/22/20 06:00: WBC 10.9, RBC 3.90 L, Hgb 9.4 L, Hct 31.4 L, MCV 80.5 L, MCH 24.1 L, MCHC 29.9 L, RDW Std Deviation 48.0 H, RDW Coeff of Brea 16.9 H, Plt Count 278, MPV 9.2, Immature Gran % (Auto) 0.500, Neut % (Auto) 67.3, Lymph % (Auto) 21.2, Woodruff % (Auto) 7.8, Eos % (Auto) 2.7, Baso % (Auto) 0.5, Absolute Neuts (auto) 7.3, Absolute Lymphs (auto) 2.31, Nucleated RBC % 0 03/22/20 06:00: Sodium 141, Potassium 3.2 L, Chloride 109 H, Carbon Dioxide 27.0, Anion Gap 5, BUN 8, Creatinine 0.50 L, Estim Creat Clear Calc 123.82, Est GFR (MDRD) Af Amer 167, Est GFR (MDRD) Non-Af 138, BUN/Creatinine Ratio 15.8, Glucose 74, Calcium 7.6 L 03/22/20 07:31: POC Glucose 80 03/22/20 08:50: COVID-19 ([facility]) Negative 03/22/20 10:19: POC Glucose 77 Current Medications Acetaminophen (Tylenol) 650 mg PO Q6H PRN PRN PRN Reason: Pain Score 1-10/Temp > 100.7 F Atorvastatin Calcium (Lipitor) 80 mg PO QHS [facility] Last Admin: 03/21/20 20:34 Dose: 80 mg Documented by: Cyanocobalamin (Vitamin B12) 1,000 mcg PO DAILYCM [facility] Last Admin: 03/22/20 07:40 Dose: Not Given Documented by: Dextrose (D50w Syringe) 0 gm IV X1 PRN; Protocol PRN Reason: Hypoglycemia Duloxetine HCl (Cymbalta) 60 mg PO DAILY@1800 [facility] Last Admin: 03/21/20 20:25 Dose: 60 mg Documented by: Famotidine (Pepcid) 20 mg PO BID [facility] Last Admin: 03/22/20 07:44 Dose: 20 mg Documented by: Glucagon () 1 mg IM .X1 PRN PRN Reason: Hypoglycemia Hydrochlorothiazide () 12.5 mg PO DAILY [facility] Last Admin: 03/22/20 10:28 Dose: Not Given Documented by: Sodium Chloride () 1,000 mls @ 100 mls/hr IV .Q10H [facility] Last Admin: 03/22/20 07:46 Dose: 100 mls/hr Documented by: Vancomycin IV Pharmacy to Dose (1 ea/ Sodium Chloride) 500 mls @ 250 mls/hr IV X1 PRN; Protocol PRN Reason: Rx to Dose Piperacillin Sod/Tazobactam (Sod 3.375 gm/ Sodium Chloride) 50 mls @ 12.5 mls/hr IV Q8 [facility] Last Infusion: 03/22/20 11:07 Dose: Infused Documented by: Vancomycin HCl 1,750 mg/ (Sodium Chloride) 535 mls @ 250 mls/hr IV Q12H [facility] Last Infusion: 03/22/20 05:30 Dose: Infused Documented by: Insulin Glargine (Lantus (Bkc)) 20 units SC BID [facility] Last Admin: 03/22/20 10:29 Dose: Not Given Documented by: Insulin Human Lispro (Humalog Kwikpen (Bkc)) 0 unit SC ACHS [facility]; Protocol Last Admin: 03/22/20 11:07 Dose: Not Given Documented by: Insulin Human Lispro (Humalog Kwikpen (Bkc)) 10 unit SC TIDAC [facility] Last Admin: 03/22/20 11:08 Dose: Not Given Documented by: Losartan Potassium (Cozaar) 50 mg PO DAILY [facility] Last Admin: 03/22/20 10:28 Dose: Not Given Documented by: Morphine Sulfate () 2 mg IV Q3H PRN PRN PRN Reason: Pain Score 6-10/10 Last Admin: 03/21/20 20:10 Dose: 2 mg Documented by: Nicotine (Nicoderm Cq (Pbkc)) 21 mg TRANSDERM. DAILY [facility] Last Admin: 03/22/20 10:29 Dose: Not Given Documented by: Ondansetron HCl (Zofran) 4 mg IV Q8H PRN PRN PRN Reason: NAUSEA/VOMITING Oxycodone HCl (Oxyir) 5 mg PO Q4H PRN PRN PRN Reason: Pain Score 4-5/10 Last Admin: 03/22/20 06:32 Dose: 5 mg Documented by: Pregabalin (Lyrica) 100 mg PO BID [facility] Last Admin: 03/22/20 07:44 Dose: 100 mg Documented by: Sodium Chloride () 10 - 40 ml IV UD PRN PRN Reason: SALINE FLUSH Last Admin: 03/22/20 11:06 Dose: 10 ml Documented by: Trazodone HCl (Desyrel) 100 mg PO QHS [facility] Last Admin: 03/21/20 20:34 Dose: 100 mg Documented by: Medical Necessity - Tobacco Use Smoking Status: Current every day smoker Tobacco Use: Cigarettes Assessment/Plan All Active Problems Osteomyelitis of toe of right foot (Acute) 1. Right second toe cellulitis with [id number] demonstrates possible evolving acute osteomyelitis of the distal shaft of the proximal phalanx of the right second toe. MRI right lower extremity shows osteomyelitis of the proximal phalanx of the second digit with open soft tissue ulcer and surrounding soft tissue cellulitis. Continue IV vancomycin and IV Zosyn. Podiatry consult, Dr. Muniz. Blood culture showed no growth in 48 hours. Wound culture preliminary growing staph aureus and gram-negative madeline. Wound RN consult. To undergo surgery today for amputation of right second toe. LEAS ordered, pending. 2. Type 2 diabetes mellitus with diabetic [id number]-Yueh-Prdby with sliding scale insulin. Lantus 10 units twice daily. Hemoglobin A1c 9.9%. Hemoglobin A1c August 2019 12%. 3. Tobacco dependence-encouraged cessation. Nicotine replacement patch. 4. Hypertension-stable, continue home hydrochlorothiazide, lisinopril. 5. Hyperlipidemia-not on regimen. 6. Hypothyroidism-continue Synthroid regimen. 7. Obesity-encouraged diet lifestyle modifications. 8. Fibromyalgia-on Lyrica. 9. Anxiety/depression-continue duloxetine, trazodone. 10. Microcytic anemia-check iron studies. Trend CBC. DVT prophylaxis-Lovenox subcu This patient was seen by ANGELES Ram under the supervision of Dr. Rahman. <Steven Rahman F - Last Filed: 03/22/20 15:18> - Physical Exam Vitals/I&O's: Vital Signs Temp Pulse Resp BP Pulse Ox 97.3 F L 80 18 95/66 99 03/22/20 14:46 03/22/20 14:46 03/22/20 14:46 03/22/20 14:46 03/22/20 14:46 Oxygen Delivery Method Room Air Weight: 234 lb 14.405 oz Body Mass Index (BMI) 39.1 Finger Stick Blood Glucose 229 Intake and Output for Last 24 Hours 03/20/20 03/21/20 03/22/20 23:59 23:59 23:59 Intake Total 1580.0 / 1780.0 3085 / 3085 Output Total 400 / 400 Balance 1580.0 / 1380.0 2685 / 2685 Microbiology Past 72 Hours 03/21/20 16:15 Wound - Right Foot Gram Stain - Final 03/21/20 16:15 Wound - Right Foot Wound Culture - Preliminary Staphylococcus aureus Gram negative madeline 03/21/20 15:30 Blood Culture (Wb) - Left Forearm Blood Culture - Preliminary No growth in 48 hours. 03/21/20 15:10 Blood Culture (Wb) - Left Hand Blood Culture - Preliminary No growth in 48 hours. Laboratory Results 03/21/20 15:10: WBC 12.3 H, RBC 4.92, Hgb 11.7 L, Hct 39.5, MCV 80.3 L, MCH 23.8 L, MCHC 29.6 L, RDW Std Deviation 47.3 H, RDW Coeff of Brea 17.2 H, Plt Count 342, MPV 9.1, Immature Gran % (Auto) 0.200, Neut % (Auto) 77.5 H, Lymph % (Auto) 14.1 L, Woodruff % (Auto) 6.2, Eos % (Auto) 1.5, Baso % (Auto) 0.5, Absolute Neuts (auto) 9.6 H, Absolute Lymphs (auto) 1.74, Nucleated RBC % 0, ESR 54 H 03/21/20 15:10: Sodium 136, Potassium 3.4 L, Chloride 101, Carbon Dioxide 25.0, Anion Gap 10, BUN 9, Creatinine 0.70, Estim Creat Clear Calc 70.60, Est GFR (MDRD) Af Amer 115, Est GFR (MDRD) Non-Af 95, BUN/Creatinine Ratio 12.9, Glucose 137 H, Calcium 8.9, Total Bilirubin 0.60, AST 14 L, ALT 22, Alkaline Phosphatase 130 H, C-React Prot Ext Range 37.60 H, Total Protein 7.8, Albumin 3.3, Globulin 4.5 H, Albumin/Globulin Ratio 0.7 L 03/21/20 15:10: Hemoglobin A1c 9.9 H 03/21/20 15:30: PT 25.6 H, INR 2.4, APTT 54.6 H 03/21/20 15:30: Lactic Acid 0.7 03/21/20 18:36: S.aureus Protein A PCR POSITIVE H, MRSA (PCR) Negative 03/21/20 21:35: POC Glucose 201 H 03/22/20 06:00: WBC 10.9, RBC 3.90 L, Hgb 9.4 L, Hct 31.4 L, MCV 80.5 L, MCH 24.1 L, MCHC 29.9 L, RDW Std Deviation 48.0 H, RDW Coeff of Brea 16.9 H, Plt Count 278, MPV 9.2, Immature Gran % (Auto) 0.500, Neut % (Auto) 67.3, Lymph % (Auto) 21.2, Woodruff % (Auto) 7.8, Eos % (Auto) 2.7, Baso % (Auto) 0.5, Absolute Neuts (auto) 7.3, Absolute Lymphs (auto) 2.31, Nucleated RBC % 0 03/22/20 06:00: Sodium 141, Potassium 3.2 L, Chloride 109 H, Carbon Dioxide 27.0, Anion Gap 5, BUN 8, Creatinine 0.50 L, Estim Creat Clear Calc 123.82, Est GFR (MDRD) Af Amer 167, Est GFR (MDRD) Non-Af 138, BUN/Creatinine Ratio 15.8, Glucose 74, Calcium 7.6 L 03/22/20 06:00: Iron 17 L, TIBC 302, Iron Saturation 5.6 L, Ferritin 4 L, Folate 23.00 03/22/20 07:31: POC Glucose 80 03/22/20 08:50: COVID-19 ([facility]) Negative 03/22/20 10:19: POC Glucose 77 Current Medications Acetaminophen (Tylenol) 650 mg PO Q6H PRN PRN PRN Reason: Pain Score 1-10/Temp > 100.7 F Atorvastatin Calcium (Lipitor) 80 mg PO QHS [facility] Last Admin: 03/21/20 20:34 Dose: 80 mg Documented by: Cyanocobalamin (Vitamin B12) 1,000 mcg PO DAILYCM [facility] Last Admin: 03/22/20 07:40 Dose: Not Given Documented by: Dextrose (D50w Syringe) 0 gm IV X1 PRN; Protocol PRN Reason: Hypoglycemia Duloxetine HCl (Cymbalta) 60 mg PO DAILY@1800 [facility] Last Admin: 03/21/20 20:25 Dose: 60 mg Documented by: Famotidine (Pepcid) 20 mg PO BID [facility] Last Admin: 03/22/20 07:44 Dose: 20 mg Documented by: Glucagon () 1 mg IM .X1 PRN PRN Reason: Hypoglycemia Hydrochlorothiazide () 12.5 mg PO DAILY [facility] Last Admin: 03/22/20 10:28 Dose: Not Given Documented by: Hydroxyzine Pamoate (Vistaril Pamoate Capsule) 50 mg PO TID PRN PRN PRN Reason: ANXIETY Sodium Chloride () 1,000 mls @ 100 mls/hr IV .Q10H [facility] Last Admin: 03/22/20 14:35 Dose: 100 mls/hr Documented by: Vancomycin IV Pharmacy to Dose (1 ea/ Sodium Chloride) 500 mls @ 250 mls/hr IV X1 PRN; Protocol PRN Reason: Rx to Dose Piperacillin Sod/Tazobactam (Sod 3.375 gm/ Sodium Chloride) 50 mls @ 12.5 mls/hr IV Q8 [facility] Last Admin: 03/22/20 13:36 Dose: 12.5 mls/hr Documented by: Vancomycin HCl 1,750 mg/ (Sodium Chloride) 535 mls @ 250 mls/hr IV Q12H [facility] Last Admin: 03/22/20 14:35 Dose: 250 mls/hr Documented by: Lactated Ringer's () 1,000 mls @ 100 mls/hr IV .Q10H [facility] Last Admin: 03/22/20 13:07 Dose: 100 mls/hr Documented by: Insulin Glargine (Lantus (Bkc)) 10 units SC BID [facility] Insulin Human Lispro (Humalog Kwikpen (Bkc)) 0 unit SC ACHS [facility]; Protocol Last Admin: 03/22/20 11:07 Dose: Not Given Documented by: Insulin Human Lispro (Humalog Kwikpen (Bkc)) 10 unit SC TIDAC [facility] Last Admin: 03/22/20 11:08 Dose: Not Given Documented by: Losartan Potassium (Cozaar) 50 mg PO DAILY [facility] Last Admin: 03/22/20 10:28 Dose: Not Given Documented by: Morphine Sulfate () 2 mg IV Q3H PRN PRN PRN Reason: Pain Score 6-10/10 Last Admin: 03/21/20 20:10 Dose: 2 mg Documented by: Nicotine (Nicoderm Cq (Pbkc)) 21 mg TRANSDERM. DAILY [facility] Last Admin: 03/22/20 10:29 Dose: Not Given Documented by: Ondansetron HCl (Zofran) 4 mg IV Q8H PRN PRN PRN Reason: NAUSEA/VOMITING Oxycodone HCl (Oxyir) 5 mg PO Q4H PRN PRN PRN Reason: Pain Score 4-5/10 Last Admin: 03/22/20 06:32 Dose: 5 mg Documented by: Pregabalin (Lyrica) 100 mg PO BID [facility] Last Admin: 03/22/20 07:44 Dose: 100 mg Documented by: Sodium Chloride () 10 - 40 ml IV UD PRN PRN Reason: SALINE FLUSH Last Admin: 03/22/20 11:06 Dose: 10 ml Documented by: Trazodone HCl (Desyrel) 100 mg PO QHS [facility] Last Admin: 03/21/20 20:34 Dose: 100 mg Documented by: Addendum: Dr. Rahman I personally examined the patient and reviewed the chart. I agree with the above. 49-year-old female with a history of diabetes presents with right second toe cellulitis and osteomyelitis on MRI. She underwent operative debridement and amputation of her toe which was sent for culture. Blood cultures are negative however superficial wound cultures demonstrating staph aureus and gram-negative rods, with a positive MRSA PCR. At the moment we will continue with vancomycin and Zosyn for treatment and await cultures. She is doing well postoperatively. Appreciate both podiatry and ID input. Inpatient E&M: [id number] [facility] L2
[2020-03-22] MEDS: Bupivacaine Mpf 0.5% 30 ML VIAL (12:21)
--- NOTE | 2020-03-22 12:40 | OP.PCM_ITS ---
Report of Operation Date of Procedure: 03/22/20 Pre-Operative Diagnosis: Ulcer down to necrotic bone with osteomyelitis right 2nd toe Post-Operative Diagnosis: Same Surgery/Procedure Performed:: Debridement of ulceration/amputation of right 2nd toe business continuity strategy director: None Type of Anesthesia:: Local MAC Specimen's removed: 1. Left 2nd toe sent to pathology. 2. Bone culture left sent toe sent to microbiology. 3. Clearance fragment left 2nd metatarsal sent to pathology and microbiology Estimated Blood Loss (mL): <1mL Description of Procedure: Indications: The patient is a 49 year old female who had a nonviable and necrotic ulceration at the very distal tip of the residual right 2nd toe, probed deep with localized erythema and edema to the distal toe, xray and MRI shows osteomyelitis. The ulcer is chronic. She has uncontrolled diabetes. Given the findings patient elected to proceed with further surgical debridement/amputation of the entire right 2nd toe.This was discussed in great detail, and ultimately patient elected to proceed with this procedure. This was discussed with her in detail, reviewed the possible benefits vs risks. She was advised the risks include, but are not limited to pain, further infections, need for further surgery, nonhealing, delay healing, scarring, poor cosmetic result, numbness, weakness, loss of function, complex regional pain syndrome, blood clots, loss of limb, loss of life, need for further surgery. Patient expressed understanding and agreement, and able to repeat back, all questions were answered. The consent form was reviewed and it was freely signed. No guaranties were given nor implied. Operative Procedure: The patient was brought into the operating room, and was place on the operating room table in the supine position. Patient was carefully secured to the operating room table with a safely belt around their waist. A time out was performed, the patient was properly identified and the surgical plan was confirmed. Patient was already on antibiotics. A well padded pneumatic tourniquet was placed around the right ankle. The patient received MAC anesthesia per the anesthesia team. The patient received a total of 10mL of 0.5% Marcaine plain was given as a right foot 2nd ray block after the skin was cleansed with 70% isopropyl alcohol. The right foot was scrubbed, prepped and draped in the usual aseptic fashion. The right foot was exsanguinated via elevation and the right ankle pneumatic tourniquet was inflated to 250mmHg. There was noted to be an ulceration to the distal aspect of the 2nd toe which probed to the head of the proximal phalanx, there was cellulitis and drainage from site which only extended to the tip of the residual toe. The ulceration measured 0.7cm x 0.5cm and 0.4cm in depth down to bone. The bone was necrotic. Using a 15 scalpel blade an incision was made around the base of the toe, and the ulcer was excisded. The toe was disarticulated at the level of the 2nd metatarsal phalangeal joint excising the toe and ulceration. The bone was necrotic and nonviable. A culture of the proximal phalanx bone was obtained and sent to microbiology. The excised u lceration and toe were sent to pathology. The head of the 2nd metatarsal was healthy appearing was hard, white and did not appear to be infected. A bone culture was obtained from the head of the 2nd metatarsal and was sent to microbiology and pathology for further evaluation. The site was flushed out with copious amounts of normal saline solution. All remaining tissues appeared to be healthy and viable, free of any infection. The site was again flushed out with copious amounts of normal saline solution. A flap was created with the remaining viable skin using a 15 blade, the skin edges were brought together and were reapproximated using 3-0 Prolene. The pneumatic tourniquet was deflated (total tourniquet time was 16 minutes), and there was return of normal flow to the foot, with normal temperature gradient and CFT < 2 seconds to all remaining toes. Hemostasis achieved prior to closure. A dressing was applied which consisted of betadine soaked adaptic, 4x4 gauze, kerlix and jessica dressing. Patient tolerated the above procedure well with no complications. The patient was transported from the operating room to the recovery room in good condition. Post operative orders placed. Patient will be followed as a inpatient. Also of note right foot xrays were obtained after procedure, 3 views. These were reviewed. There is amputation of the 2nd toe, otherwise no acute findings. Grafts/Implants Used: None - Complications None
[2020-03-22] MEDS: Lactated Ringers 1,000 ML 100 ML IV (13:07)
--- NOTE | 2020-03-22 13:07 | PCA ---
pt off floor
--- NOTE | 2020-03-22 13:20 | RAD_ITS ---
STUDY: X-RAY - LEFT FOOT CLINICAL: Female, 49 years old. POST OP TECHNIQUE: 3 view(s) of the foot. COMPARISON: X-ray and MRI of the right foot dated March 21, 2020 FINDINGS: The patient is status post surgical resection of the second proximal phalanx. Expected postoperative gas and swelling is seen in the operative bed and adjacent regions. The remaining bony structures are stable and normal with exception of demineralization. All of the phalanges of the first and second digits have been amputated. No occult fracture. RAD/Foot min 3 Views IMPRESSION: Status post surgical resection of the second proximal phalanx Electronically Signed: Diogenes Serrano MD at 15:57 EDT , Service support ,
--- NOTE | 2020-03-22 13:59 | CASEMGMT ---
Social Work Note SW received referral for advanced directives. Pt is having surgery today, SW will follow up with pt tomorrow. Chica Torres ECONOMIC CONSULTANT, [employer]YR[employer] OPERATOR
[2020-03-22 14:14] LABS: Ferritin 4 ng/mL (8-252); Iron 17 ug/dL (50-170); Iron Binding Capacity,Total 302 ug/dL (250-450); PERCENT IRON SATURATION 5.6 % (15.0-55.0)
--- NOTE | 2020-03-22 15:41 | CON.PCM_ITS ---
Problem List (1) Osteomyelitis of toe of right foot Status: Suspected Reason for Consult: osteo Consulted by: Dr. Rahman History of Present Illness: The patient is a 49 year old F with DM neuropathy, prior foot osteo, presented 03/21 with 3-4 days of R 2nd toe pain, swelling, redness, purulent drainage. She had stubbed her toe recently. No fever or chills. No recent abx. Came to ED, admitted on vanc/zosyn. MRI done. Taken to OR by Dr. Muniz today 03/22 for 2nd toe amputation. Full ROS performed and neg except as noted above. - Medical History Past Medical History (Chronic Problems): Chronic Problems Meniere disease (Chronic) Chronic ulcer of right foot with fat layer exposed (Chronic) Type 2 diabetes mellitus with diabetic polyneuropathy (Chronic) Hammer toe of right foot (Chronic) Obesity (BMI 30-39.9) (Chronic) Vertigo (Chronic) Hyperlipidemia (Chronic) Fibromyalgia (Chronic) Depression with anxiety (Chronic) Allergies/Adverse Reactions: Allergies clindamycin Allergy (Verified 03/21/20 14:16) Hives erythromycin base [From E-Mycin] Allergy (Verified 03/21/20 14:16) Hives Home Medications: Ambulatory Orders Medication Instructions Recorded Famotidine [Pepcid] 20 mg PO BID 05/18/19 Hydroxyzine Pamoate [Vistaril] 50 mg PO TID PRN PRN 05/18/19 traZODone [Desyrel] 100 mg PO QHS 06/12/19 Duloxetine Hcl [Cymbalta] 30 mg PO DAILY PRN PRN 06/13/19 Albuterol Inhaler [Ventolin Hfa] 1 - 2 puff INHALATION Q6H PRN PRN 08/30/19 Atorvastatin Calcium [Lipitor] 80 mg PO QHS 08/30/19 Biotin 1 mg PO DAILY 08/30/19 Dulaglutide [Trulicity] 0.75 mg SQ WE 08/30/19 Insulin Aspart [Novolog Flexpen] See Protocol SQ TIDCM 08/30/19 Nicotine [Nicoderm Cq] 21 mg TRANSDERM. DAILY patch 09/02/19 Cyanocobalamin (Vitamin B-12) 1,000 mcg PO DAILY 03/21/20 [B-12] Duloxetine HCl 60 mg PO DAILY@1800 03/21/20 Hydrochlorothiazide 12.5 mg PO DAILY 03/21/20 Insulin Degludec [Tresiba 100 unit SQ DAILY 03/21/20 Flextouch U-100] Losartan Potassium [Cozaar] 50 mg PO DAILY 03/21/20 Multivitamin with Minerals 1 tab PO DAILY 03/21/20 [Multiple Vitamin] Pregabalin [Lyrica] 100 mg PO BID 03/21/20 - Social History Tobacco Use: cigarettes Vital Signs Temp Pulse Resp BP Pulse Ox 97.3 F L 80 18 95/66 99 03/22/20 14:46 03/22/20 14:46 03/22/20 14:46 03/22/20 14:46 03/22/20 14:46 Oxygen Delivery Method Room Air Weight: 106.549 kg Body Mass Index (BMI) 39.1 Finger Stick Blood Glucose 229 Microbiology Past 72 Hours 03/21/20 16:15 Gram Stain - Final Wound - Right Foot Wound Culture - Preliminary Staphylococcus aureus Gram negative madeline 03/21/20 15:30 Blood Culture - Preliminary Blood Culture (Wb) - Left Forearm No growth in 48 hours. 03/21/20 15:10 Blood Culture - Preliminary Blood Culture (Wb) - Left Hand No growth in 48 hours. Laboratory Tests Past 24 Hrs 03/21/20 03/21/20 03/21/20 15:10 15:10 15:10 WBC RBC Hgb Hct MCV MCH MCHC RDW Std Deviation RDW Coeff of Brea Plt Count MPV Immature Gran % (Auto) Neut % (Auto) Lymph % (Auto) Alexander % (Auto) Eos % (Auto) Baso % (Auto) Absolute Neuts (auto) Absolute Lymphs (auto) Nucleated RBC % ESR 54 H PT INR APTT Sodium 136 Potassium 3.4 L Chloride 101 Carbon Dioxide 25.0 Anion Gap 10 BUN 9 Creatinine 0.70 Estim Creat Clear Calc 70.60 Est GFR (MDRD) Af Amer 115 Est GFR (MDRD) Non-Af 95 BUN/Creatinine Ratio 12.9 Glucose 137 H Hemoglobin A1c 9.9 H Lactic Acid Calcium 8.9 Iron TIBC Iron Saturation Ferritin Total Bilirubin 0.60 AST 14 L ALT 22 Alkaline Phosphatase 130 H C-React Prot Ext Range 37.60 H Total Protein 7.8 Albumin 3.3 Globulin 4.5 H Albumin/Globulin Ratio 0.7 L Folate COVID-19 ([facility]) S.aureus Protein A PCR MRSA (PCR) 03/21/20 03/21/20 03/21/20 15:30 15:30 18:36 WBC RBC Hgb Hct MCV MCH MCHC RDW Std Deviation RDW Coeff of Brea Plt Count MPV Immature Gran % (Auto) Neut % (Auto) Lymph % (Auto) Alexander % (Auto) Eos % (Auto) Baso % (Auto) Absolute Neuts (auto) Absolute Lymphs (auto) Nucleated RBC % ESR PT 25.6 H INR 2.4 APTT 54.6 H Sodium Potassium Chloride Carbon Dioxide Anion Gap BUN Creatinine Estim Creat Clear Calc Est GFR (MDRD) Af Amer Est GFR (MDRD) Non-Af BUN/Creatinine Ratio Glucose Hemoglobin A1c Lactic Acid 0.7 Calcium Iron TIBC Iron Saturation Ferritin Total Bilirubin AST ALT Alkaline Phosphatase C-React Prot Ext Range Total Protein Albumin Globulin Albumin/Globulin Ratio Folate COVID-19 ([facility]) S.aureus Protein A PCR POSITIVE H MRSA (PCR) Negative 03/22/20 03/22/20 03/22/20 06:00 06:00 06:00 WBC 10.9 RBC 3.90 L Hgb 9.4 L Hct 31.4 L MCV 80.5 L MCH 24.1 L MCHC 29.9 L RDW Std Deviation 48.0 H RDW Coeff of Brea 16.9 H Plt Count 278 MPV 9.2 Immature Gran % (Auto) 0.500 Neut % (Auto) 67.3 Lymph % (Auto) 21.2 Alexander % (Auto) 7.8 Eos % (Auto) 2.7 Baso % (Auto) 0.5 Absolute Neuts (auto) 7.3 Absolute Lymphs (auto) 2.31 Nucleated RBC % 0 ESR PT INR APTT Sodium 141 Potassium 3.2 L Chloride 109 H Carbon Dioxide 27.0 Anion Gap 5 BUN 8 Creatinine 0.50 L Estim Creat Clear Calc 123.82 Est GFR (MDRD) Af Amer 167 Est GFR (MDRD) Non-Af 138 BUN/Creatinine Ratio 15.8 Glucose 74 Hemoglobin A1c Lactic Acid Calcium 7.6 L Iron 17 L TIBC 302 Iron Saturation 5.6 L Ferritin 4 L Total Bilirubin AST ALT Alkaline Phosphatase C-React Prot Ext Range Total Protein Albumin Globulin Albumin/Globulin Ratio Folate 23.00 COVID-19 ([facility]) S.aureus Protein A PCR MRSA (PCR) 03/22/20 08:50 WBC RBC Hgb Hct MCV MCH MCHC RDW Std Deviation RDW Coeff of Brea Plt Count MPV Immature Gran % (Auto) Neut % (Auto) Lymph % (Auto) Alexander % (Auto) Eos % (Auto) Baso % (Auto) Absolute Neuts (auto) Absolute Lymphs (auto) Nucleated RBC % ESR PT INR APTT Sodium Potassium Chloride Carbon Dioxide Anion Gap BUN Creatinine Estim Creat Clear Calc Est GFR (MDRD) Af Amer Est GFR (MDRD) Non-Af BUN/Creatinine Ratio Glucose Hemoglobin A1c Lactic Acid Calcium Iron TIBC Iron Saturation Ferritin Total Bilirubin AST ALT Alkaline Phosphatase C-React Prot Ext Range Total Protein Albumin Globulin Albumin/Globulin Ratio Folate COVID-19 ([facility]) Negative S.aureus Protein A PCR MRSA (PCR) - Other Studies Radiology: [] reviewed Other Studies: [] Route of nutrition/ use of supplements: [] Nutritional Intake: [] IV Site: [] Carrillo Catheter: [] - Physical Exam General: Alert, Oriented x3, Cooperative, No apparent distress HEENT: Atraumatic, PERRLA, EOMI Neck: Supple, No Nodes Lungs: Clear to auscultation, Normal air movement Cardiovascular: Regular rate, Regular Rhythm Abdomen: Soft, Non Tender, Non-Distended Extremities: No edema Skin: Ulcer/ Wound - R foot wrapped IV Site: Peripheral, without redness Musculoskeletal: No Tenderness to Palpation of Joints or Extremities Neurological: Cranial nerves II-XII grossly intact - Assessment/Plan Antibiotics: [] Assessment/Plan: [] Active and Suspected Problems Osteomyelitis of toe of right foot (Suspected) Osteomyelitis of toe of right foot (Acute) R 2nd toe osteo with DM neuropathy - wound cx with staph aureus and GNR. Wound pcr with mssa. Taken to OR 03/22/[address] Muniz for amputation. Surg cx pending. Cont empiric vanc/zosyn. If margins are clear, plan will be for short course of po abx at discharge. A1c was 9.9. Will follow, thank you.
[2020-03-22 16:56] LABS: Bedside Glucose 63 mg/dL (70-110)
[2020-03-22 16:56] LABS: Bedside Glucose 68 mg/dL (70-110)
[2020-03-22 16:56] LABS: Bedside Glucose 180 mg/dL (70-110)
[2020-03-22] MEDS: Insulin Lispro 100 UNIT/ML INSULN.PEN SC ×2 (17:33→21:39)
[2020-03-22] MEDS: DULoxetine Hcl 60 MG Capsule PO (17:34)
[2020-03-22] MEDS: Insulin Lispro 100 UNIT/ML INSULN.PEN 10 UNIT SC (17:34)
[2020-03-22] MEDS: Morphine 2 MG/ML Syringe IV ×2 (18:20→21:31)
[2020-03-22] MEDS: Atorvastatin Calcium 80 MG Tablet PO (19:43)
[2020-03-22] MEDS: Acetaminophen 325 MG Tablet 650 MG PO (19:44)
[2020-03-22] MEDS: hydrOXYzine PAM 25 MG Capsule 50 MG PO (19:45)
[2020-03-22] MEDS: traZODone 100 MG Tablet PO (19:45)
[2020-03-22 21:55] LABS: Bedside Glucose 172 mg/dL (70-110)
[2020-03-23 02:21] LABS: Hemoglobin 8.9 g/dL (12.0-15.0); Mean Corp Hgb Conc 27.8 g/dL (32-36); Mean Corpuscular Hgb 23.9 pg (27.0-32.0); Mean Corpuscular Volume 85.8 fL (81-99); Mean Platelet Vol. 9.3 fl (6.2-12.0); Platelet Count 251 K/mm3 (150-450); RBC Distribution Width CV 16.7 % (11.6-14.6); RBC Distribution Width SD 52.2 fl (35.1-43.9); Red Blood Count 3.73 M/mm3 (4.2-5.4); White Blood Count 9.9 K/mm3 (4.4-11.0)
[2020-03-23 02:36] LABS: Anion Gap 1 (5-15); BUN 8 mg/dL (7-18); BUN/Creat Ratio 14.6 RATIO (10-20); Calcium,Total 7.8 mg/dL (8.5-10.1); Chloride 112 mmol/L (98-107); Creatinine, Serum 0.55 mg/dL (0.55-1.02); EST Glomerular Filtration Rate 126 mL/min (>60); Est Glom Filt Rate - Afr Amer 152 mL/min (>60); Estimated Creatinine Clearance 108.02 ml/min; Glucose 168 mg/dL (74-106); Potassium 3.7 mmol/L (3.5-5.1); Sodium Level 139 mmol/L (136-145)
[2020-03-23 02:57] LABS: Vancomycin, Trough Level 12.6 ug/mL (5.0-15.0)
[2020-03-23 03:01] VITALS: BP 121/72; PULSE 75; RESP 18; TEMP 36.5; O2SAT 92
[2020-03-23] MEDS: Morphine 2 MG/ML Syringe IV ×2 (03:05→06:10)
--- NOTE | 2020-03-23 03:25 | PCM.RX.CS ---
Consult Pharmacy has been consulted to manage selected antiobiotic: Vancomycin Type of Consult: Follow-up Suspected Infection: Skin/Soft tissue Prior Doses of Antibiotics Received/Current Regimen: Medications Vancomycin HCl 1,750 mg/ (Sodium Chloride) 535 mls @ 250 mls/hr IV Q12H [facility] Last Admin: 03/23/20 03:05 Dose: 250 mls/hr Labs: Sodium 139 mmol/L (136-145) 03/23/20 02:10 Potassium 3.7 mmol/L (3.5-5.1) 03/23/20 02:10 Chloride 112 mmol/L (98-107) H 03/23/20 02:10 Carbon Dioxide 26.0 mmol/L (21.0-32.0) 03/23/20 02:10 Anion Gap 1 (5-15) L 03/23/20 02:10 BUN 8 mg/dL (7-18) 03/23/20 02:10 Creatinine 0.55 mg/dL (0.55-1.02) 03/23/20 02:10 Est GFR (MDRD) Af Amer 152 mL/min (>60) 03/23/20 02:10 Est GFR (MDRD) Non-Af 126 mL/min (>60) 03/23/20 02:10 BUN/Creatinine Ratio 14.6 RATIO (10-20) 03/23/20 02:10 Glucose 168 mg/dL (74-106) H 03/23/20 02:10 Vancomycin Trough 12.6 ug/mL (5.0-15.0) 03/23/20 02:10 Microbiology: Microbiology 03/21/20 16:15 Wound - Right Foot Gram Stain - Final 03/21/20 16:15 Wound - Right Foot Wound Culture - Preliminary Staphylococcus aureus Gram negative madeline 03/21/20 15:30 Blood Culture (Wb) - Left Forearm Blood Culture - Preliminary No growth in 48 hours. 03/21/20 15:10 Blood Culture (Wb) - Left Hand Blood Culture - Preliminary No growth in 48 hours. Weight used for dosin.5 kg Estimated Creatinine Clearance: >100 Goal Trough: 10-15 mcg/mL Pharmacy Plan for Drug Dosing: Vancomycin trough level of 12.6 was within target range of 10-15. Will continue current dosing at 1750mg q12h, and re-draw trough in 4 days. Pharmacy Service will continue to monitor and adjust dosing as required. Follow-Up Labs: Trough Vancomycin Labs to be done on [date and time ordered]: 03/27/20 @3344
[2020-03-23] MEDS: oxyCODONE 5 MG Tablet PO ×3 (04:41→20:28)
[2020-03-23] MEDS: Acetaminophen 325 MG Tablet 650 MG PO ×2 (04:41→20:28)
[2020-03-23] MEDS: 0.9% Normal Saline 1,000 ML 100 ML IV ×2 (06:11→15:59)
[2020-03-23 06:51] LABS: Bedside Glucose 151 mg/dL (70-110)
[2020-03-23 07:48] VITALS: BP 123/66; PULSE 79; RESP 16; TEMP 37; O2SAT 97
[2020-03-23 07:56] VITALS: PULSE 90
[2020-03-23] MEDS: Insulin Lispro 100 UNIT/ML INSULN.PEN SC ×2 (08:01→22:37)
[2020-03-23] MEDS: Insulin Lispro 100 UNIT/ML INSULN.PEN 10 UNIT SC ×3 (08:02→16:54)
[2020-03-23] MEDS: Famotidine 20 MG Tablet PO ×2 (08:03→20:27)
[2020-03-23] MEDS: Pregabalin 50 MG Capsule 100 MG PO ×2 (08:03→20:27)
[2020-03-23] MEDS: Cyanocobalamin 500 MCG Tablet 1000 MCG PO (08:03)
[2020-03-23] MEDS: hydroCHLOROthiazide 12.5mg 12.5 MG PO (08:03)
[2020-03-23] MEDS: DULoxetine Hcl 60 MG Capsule PO (08:03)
[2020-03-23] MEDS: Losartan Potassium 50 MG Tablet PO (08:03)
--- NOTE | 2020-03-23 10:06 | PN.ID_ITS ---
Patient Problems: Active and Suspected Problems Osteomyelitis of toe of right foot (Suspected) Osteomyelitis of toe of right foot (Acute) Subjective: Feeling ok, no fever, no n/v/d. - Physical Exam Vitals/I&O's: Vital Signs Temp Pulse Resp BP Pulse Ox 98.6 F 90 16 123/66 H 97 03/23/20 07:48 03/23/20 07:56 03/23/20 07:48 03/23/20 07:48 03/23/20 07:48 Oxygen Delivery Method Room Air Weight: 106.549 kg Body Mass Index (BMI) 39.1 Finger Stick Blood Glucose 229 Intake and Output for Last 24 Hours 03/21/20 03/22/20 03/23/20 23:59 23:59 23:59 Intake Total 1580.0 / 1780.0 5270 / 5270 2085 / 2085 Output Total 1200 / 1200 500 / 500 Balance 1580.0 / 1380.0 4070 / 4070 1585 / 1585 General: Alert, Cooperative, No apparent distress Lungs: Clear to auscultation, Normal air movement Cardiovascular: Regular rate, Regular Rhythm Abdomen: Soft, Non Tender, Non-Distended Skin: Ulcer/ Wound - foot wrapped Microbiology Past 72 Hours 03/21/20 16:15 Wound - Right Foot Gram Stain - Final 03/21/20 16:15 Wound - Right Foot Wound Culture - Preliminary Staphylococcus aureus Gram negative madeline 03/21/20 15:30 Blood Culture (Wb) - Left Forearm Blood Culture - Preliminary No growth in 48 hours. 03/21/20 15:10 Blood Culture (Wb) - Left Hand Blood Culture - Preliminary No growth in 48 hours. Laboratory Results 03/22/20 06:00: Iron 17 L, TIBC 302, Iron Saturation 5.6 L, Ferritin 4 L, Folate 23.00 03/22/20 08:50: COVID-19 ([facility]) Negative 03/22/20 10:19: POC Glucose 77 03/22/20 14:42: POC Glucose 63 L 03/22/20 15:06: POC Glucose 68 L 03/22/20 16:48: POC Glucose 180 H 03/22/20 21:38: POC Glucose 172 H 03/23/20 02:10: Vancomycin Trough 12.6 03/23/20 02:10: WBC 9.9, RBC 3.73 L, Hgb 8.9 L, Hct 32.0 L, MCV 85.8 D, MCH 23.9 L, MCHC 27.8 L D, RDW Std Deviation 52.2 H, RDW Coeff of Brea 16.7 H, Plt Count 251, MPV 9.3 03/23/20 02:10: Sodium 139, Potassium 3.7, Chloride 112 H, Carbon Dioxide 26.0, Anion Gap 1 L, BUN 8, Creatinine 0.55, Estim Creat Clear Calc 108.02, Est GFR (MDRD) Af Amer 152, Est GFR (MDRD) Non-Af 126, BUN/Creatinine Ratio 14.6, Glucose 168 H, Calcium 7.8 L 03/23/20 06:45: POC Glucose 151 H Current Medications Acetaminophen (Tylenol) 650 mg PO Q6H PRN PRN PRN Reason: Pain Score 1-10/Temp > 100.7 F Last Admin: 03/23/20 04:41 Dose: 650 mg Documented by: Atorvastatin Calcium (Lipitor) 80 mg PO QHS [facility] Last Admin: 03/22/20 19:43 Dose: 80 mg Documented by: Cyanocobalamin (Vitamin B12) 1,000 mcg PO DAILYCM [facility] Last Admin: 03/23/20 08:03 Dose: 1,000 mcg Documented by: Dextrose (D50w Syringe) 0 gm IV X1 PRN; Protocol PRN Reason: Hypoglycemia Duloxetine HCl (Cymbalta) 60 mg PO DAILY@1800 [facility] Last Admin: 03/23/20 08:03 Dose: 60 mg Documented by: Famotidine (Pepcid) 20 mg PO BID [facility] Last Admin: 03/23/20 08:03 Dose: 20 mg Documented by: Glucagon () 1 mg IM .X1 PRN PRN Reason: Hypoglycemia Hydrochlorothiazide () 12.5 mg PO DAILY [facility] Last Admin: 03/23/20 08:03 Dose: 12.5 mg Documented by: Hydroxyzine Pamoate (Vistaril Pamoate Capsule) 50 mg PO TID PRN PRN PRN Reason: ANXIETY Last Admin: 03/22/20 19:45 Dose: 50 mg Documented by: Sodium Chloride () 1,000 mls @ 100 mls/hr IV .Q10H [facility] Last Admin: 03/23/20 06:11 Dose: 100 mls/hr Documented by: Piperacillin Sod/Tazobactam (Sod 3.375 gm/ Sodium Chloride) 50 mls @ 12.5 mls/hr IV Q8 [facility] Last Admin: 03/23/20 06:10 Dose: 12.5 mls/hr Documented by: Insulin Glargine (Lantus (Bkc)) 10 units SC BID [facility] Last Admin: 03/22/20 21:39 Dose: Not Given Documented by: Insulin Human Lispro (Humalog Kwikpen (Bkc)) 0 unit SC ACHS [facility]; Protocol Last Admin: 03/23/20 08:01 Dose: 1 units Documented by: Insulin Human Lispro (Humalog Kwikpen (Bkc)) 10 unit SC TIDAC [facility] Last Admin: 03/23/20 08:02 Dose: 10 units Documented by: Losartan Potassium (Cozaar) 50 mg PO DAILY [facility] Last Admin: 03/23/20 08:03 Dose: 50 mg Documented by: Morphine Sulfate () 2 mg IV Q3H PRN PRN PRN Reason: Pain Score 6-10/10 Last Admin: 03/23/20 06:10 Dose: 2 mg Documented by: Nicotine (Nicoderm Cq (Pbkc)) 21 mg TRANSDERM. DAILY [facility] Last Admin: 03/23/20 08:03 Dose: 21 mg Documented by: Ondansetron HCl (Zofran) 4 mg IV Q8H PRN PRN PRN Reason: NAUSEA/VOMITING Oxycodone HCl (Oxyir) 5 mg PO Q4H PRN PRN PRN Reason: Pain Score 4-5/10 Last Admin: 03/23/20 04:41 Dose: 5 mg Documented by: Pregabalin (Lyrica) 100 mg PO BID [facility] Last Admin: 03/23/20 08:03 Dose: 100 mg Documented by: Sodium Chloride () 10 - 40 ml IV UD PRN PRN Reason: SALINE FLUSH Last Admin: 03/22/20 18:20 Dose: 10 ml Documented by: Trazodone HCl (Desyrel) 100 mg PO QHS [facility] Last Admin: 03/22/20 19:45 Dose: 100 mg Documented by: Medical Necessity - Tobacco Use Smoking Status: Current every day smoker Tobacco Use: Cigarettes Route of nutrition/ use of supplements: [] Nutritional Intake: [] IV Site: [] Carrillo Catheter: [] - Assessment/Plan Antibiotics: [] Assessment/Plan: [] Active and Suspected Problems Osteomyelitis of toe of right foot (Suspected) Osteomyelitis of toe of right foot (Acute) R 2nd toe osteo with DM neuropathy - wound cx with MSSA and GNR. Wound pcr with mssa. Taken to OR 03/22/[address] Muniz for amputation. Surg cx pending. S top vanc today. Cont empiric zosyn. If margins are clear, plan will be for short course of po abx at discharge. A1c was 9.9. Will follow, d/w primary team
--- NOTE | 2020-03-23 10:30 | CASEMGMT ---
Addendum entered by Nikita Mendez 03/23/20 15:27: Script for tub transfer bench and WW obtained from RADHA Davidson, and faxed to [facility] at this time. They were notified plan is for discharge tomorrow 03/24. CHUCK JACK requested for WW to be delivered to pt's room. Original Note: CHUCK JACK NOTE: To room to discuss discharge planning w/pt. Pt states she gets into a tub to bath and requests a tub/bath transfer bench. Call placed to [facility] and they do have these available and they are covered under [employer] insurance. Pt agreeable to [facility]. Will get script for both tub/bath transfer bench and WW and fax to [facility] prior to pt being discharged. Per ID, anticipated that pt will d/c home on PO atb's. Pt states she does not want [facility] for nursing/teaching unless she would need IV atb's and does not want therapy. Man ARROYO RN CM
[2020-03-23 11:35] LABS: Bedside Glucose 84 mg/dL (70-110)
--- NOTE | 2020-03-23 12:22 | PN_ITS ---
<Nilo Holman - Last Filed: 03/23/20 12:22> Patient Problems: Active and Suspected Problems Osteomyelitis of toe of right foot (Suspected) Osteomyelitis of toe of right foot (Acute) Reason for Visit: RLE osteo Subjective: Pt resting comfortably in bed. Pain adequately controlled with current regimen. No pain at all at time of interview. No fever/chills. No cough/SOB. No N/V/D. Pt plans to go home with assistance of family. Vitals/I&O's: Vital Signs Temp Pulse Resp BP Pulse Ox 98.6 F 90 16 123/66 H 97 03/23/20 07:48 03/23/20 07:56 03/23/20 07:48 03/23/20 07:48 03/23/20 07:48 Oxygen Delivery Method Room Air Weight: 234 lb 14.405 oz Body Mass Index (BMI) 39.1 Finger Stick Blood Glucose 229 Intake and Output for Last 24 Hours 03/21/20 03/22/20 03/23/20 23:59 23:59 23:59 Intake Total 1580.0 / 1780.0 5270 / 5270 2135 / 2135 Output Total 1200 / 1200 500 / 500 Balance 1580.0 / 1380.0 4070 / 4070 1635 / 1635 General: Alert, Oriented x3, Cooperative HEENT: Atraumatic, PERRLA, EOMI, Normocephalic Neck: Supple, No JVD, Negative Carotid Bruits Lungs: Clear to auscultation, Normal air movement Cardiovascular: Regular rate, No murmurs Abdomen: Bowel Sounds Present, Soft, Non Tender Extremities: No edema, Capillary Refill Less than 3 Seconds Skin: No rashes, No breakdown Musculoskeletal: No Tenderness to Palpation of Joints or Extremities Neurological: Cranial nerves II-XII grossly intact Psych/Mental Status: Normal Affect, Appropriate, Alert and oriented to time, place, person, mood and affect Microbiology Past 72 Hours 03/21/20 16:15 Wound - Right Foot Gram Stain - Final 03/21/20 16:15 Wound - Right Foot Wound Culture - Preliminary Staphylococcus aureus Gram negative madeline 03/22/20 12:34 Tissue - Right Foot Gram Stain - Final 03/22/20 12:33 Tissue - Right Foot Gram Stain - Final 03/21/20 15:30 Blood Culture (Wb) - Left Forearm Blood Culture - Preliminary No growth in 48 hours. 03/21/20 15:10 Blood Culture (Wb) - Left Hand Blood Culture - Preliminary No growth in 48 hours. Laboratory Results 03/22/20 06:00: Iron 17 L, TIBC 302, Iron Saturation 5.6 L, Ferritin 4 L, Folate 23.00 03/22/20 14:42: POC Glucose 63 L 03/22/20 15:06: POC Glucose 68 L 03/22/20 16:48: POC Glucose 180 H 03/22/20 21:38: POC Glucose 172 H 03/23/20 02:10: Vancomycin Trough 12.6 03/23/20 02:10: WBC 9.9, RBC 3.73 L, Hgb 8.9 L, Hct 32.0 L, MCV 85.8 D, MCH 23.9 L, MCHC 27.8 L D, RDW Std Deviation 52.2 H, RDW Coeff of Brea 16.7 H, Plt Count 251, MPV 9.3 03/23/20 02:10: Sodium 139, Potassium 3.7, Chloride 112 H, Carbon Dioxide 26.0, Anion Gap 1 L, BUN 8, Creatinine 0.55, Estim Creat Clear Calc 108.02, Est GFR (MDRD) Af Amer 152, Est GFR (MDRD) Non-Af 126, BUN/Creatinine Ratio 14.6, Glucose 168 H, Calcium 7.8 L 03/23/20 06:45: POC Glucose 151 H 03/23/20 11:03: POC Glucose 84 Current Medications Acetaminophen (Tylenol) 650 mg PO Q6H PRN PRN PRN Reason: Pain Score 1-10/Temp > 100.7 F Last Admin: 03/23/20 04:41 Dose: 650 mg Documented by: Atorvastatin Calcium (Lipitor) 80 mg PO QHS [facility] Last Admin: 03/22/20 19:43 Dose: 80 mg Documented by: Cyanocobalamin (Vitamin B12) 1,000 mcg PO DAILYCM [facility] Last Admin: 03/23/20 08:03 Dose: 1,000 mcg Documented by: Dextrose (D50w Syringe) 0 gm IV X1 PRN; Protocol PRN Reason: Hypoglycemia Duloxetine HCl (Cymbalta) 60 mg PO DAILY@1800 [facility] Last Admin: 03/23/20 08:03 Dose: 60 mg Documented by: Famotidine (Pepcid) 20 mg PO BID [facility] Last Admin: 03/23/20 08:03 Dose: 20 mg Documented by: Glucagon () 1 mg IM .X1 PRN PRN Reason: Hypoglycemia Hydrochlorothiazide () 12.5 mg PO DAILY [facility] Last Admin: 03/23/20 08:03 Dose: 12.5 mg Documented by: Hydroxyzine Pamoate (Vistaril Pamoate Capsule) 50 mg PO TID PRN PRN PRN Reason: ANXIETY Last Admin: 03/22/20 19:45 Dose: 50 mg Documented by: Sodium Chloride () 1,000 mls @ 100 mls/hr IV .Q10H [facility] Last Admin: 03/23/20 06:11 Dose: 100 mls/hr Documented by: Piperacillin Sod/Tazobactam (Sod 3.375 gm/ Sodium Chloride) 50 mls @ 12.5 mls/hr IV Q8 [facility] Last Infusion: 03/23/20 10:20 Dose: Infused Documented by: Insulin Glargine (Lantus (Bk)) 10 units SC BID [facility] Last Admin: 03/23/20 10:20 Dose: Not Given Documented by: Insulin Human Lispro (Humalog Kwikpen (Bk)) 0 unit SC ACHS [facility]; Protocol Last Admin: 03/23/20 11:04 Dose: Not Given Documented by: Insulin Human Lispro (Humalog Kwikpen (Bk)) 10 unit SC TIDAC [facility] Last Admin: 03/23/20 08:02 Dose: 10 units Documented by: Losartan Potassium (Cozaar) 50 mg PO DAILY [facility] Last Admin: 03/23/20 08:03 Dose: 50 mg Documented by: Morphine Sulfate () 2 mg IV Q3H PRN PRN PRN Reason: Pain Score 6-10/10 Last Admin: 03/23/20 06:10 Dose: 2 mg Documented by: Nicotine (Nicoderm Cq (Pbkc)) 21 mg TRANSDERM. DAILY [facility] Last Admin: 03/23/20 08:03 Dose: 21 mg Documented by: Ondansetron HCl (Zofran) 4 mg IV Q8H PRN PRN PRN Reason: NAUSEA/VOMITING Oxycodone HCl (Oxyir) 5 mg PO Q4H PRN PRN PRN Reason: Pain Score 4-5/10 Last Admin: 03/23/20 04:41 Dose: 5 mg Documented by: Pregabalin (Lyrica) 100 mg PO BID [facility] Last Admin: 03/23/20 08:03 Dose: 100 mg Documented by: Sodium Chloride () 10 - 40 ml IV UD PRN PRN Reason: SALINE FLUSH Last Admin: 03/22/20 18:20 Dose: 10 ml Documented by: Trazodone HCl (Desyrel) 100 mg PO QHS [facility] Last Admin: 03/22/20 19:45 Dose: 100 mg Documented by: Medical Necessity - Tobacco Use Smoking Status: Current every day smoker Tobacco Use: Cigarettes Assessment/Plan All Active Problems Osteomyelitis of toe of right foot (Acute) 1. RLE osteomyelitis R 2nd digit - s/p amputation. MSSA and GNR. Await final fx. Continue abx per ID. Likely PO at DC. BCx NTD. Surgical cx pending. Afebrile no leukocytosis. Podiatry following. 2. T2DM with obesity - uncontrolled with hyperglycemia, with diabetic polyneuropathy. SSI, lantus. A1C 9.9%. [employer] consult. 3. Nicotine abuse - patch. needs complete cessation in order to promote healing. 4. HTN - hctz, lisinopril 5. Hypothyroidism - synthroid 6. Fibromyalgia - lyrica 7. Anx/Depression - duloxetine, trazodone 8. iron deficiency anemia - low iron/sat/ferritin. venofer, po iron 9. HLD - statin DVT ppx: lovenox DC Planning: home likely tomorrow. await final C&S This patient was seen by Nilo Holman PA-C under the supervision of Doctor Lacey. <Steven Rahman F - Last Filed: 03/23/20 14:38> Vitals/I&O's: Vital Signs Temp Pulse Resp BP Pulse Ox 98.0 F 80 16 128/68 H 97 03/23/20 13:54 03/23/20 14:16 03/23/20 13:54 03/23/20 13:54 03/23/20 13:54 Oxygen Delivery Method Room Air Weight: 234 lb 14.405 oz Body Mass Index (BMI) 39.1 Finger Stick Blood Glucose 229 Intake and Output for Last 24 Hours 03/21/20 03/22/2003/23/20 23:59 23:59 23:59 Intake Total 1580.0 / 1780.0 5270 / 5270 2245 / 2245 Output Total 1200 / 1200 850 / 850 Balance 1580.0 / 1380.0 4070 / 4070 1395 / 1395 Microbiology Past 72 Hours 03/22/20 12:34 Tissue - Right Foot Gram Stain - Final 03/22/20 12:34 Tissue - Right Foot Wound Culture - Preliminary No growth-Final to follow 03/22/20 12:33 Tissue - Right Foot Gram Stain - Final 03/22/20 12:33 Tissue - Right Foot Wound Culture - Preliminary Beta hemolytic organism Mixed Olivia 03/21/20 16:15 Wound - Right Foot Gram Stain - Final 03/21/20 16:15 Wound - Right Foot Wound Culture - Preliminary Staphylococcus aureus Gram negative madeline 03/21/20 15:30 Blood Culture (Wb) - Left Forearm Blood Culture - Preliminary No growth in 48 hours. 03/21/20 15:10 Blood Culture (Wb) - Left Hand Blood Culture - Preliminary No growth in 48 hours. Laboratory Results 03/22/20 14:42: POC Glucose 63 L 03/22/20 15:06: POC Glucose 68 L 03/22/20 16:48: POC Glucose 180 H 03/22/20 21:38: POC Glucose 172 H 03/23/20 02:10: Vancomycin Trough 12.6 03/23/20 02:10: WBC 9.9, RBC 3.73 L, Hgb 8.9 L, Hct 32.0 L, MCV 85.8 D, MCH 23.9 L, MCHC 27.8 L D, RDW Std Deviation 52.2 H, RDW Coeff of Brea 16.7 H, Plt Count 251, MPV 9.3 03/23/20 02:10: Sodium 139, Potassium 3.7, Chloride 112 H, Carbon Dioxide 26.0, Anion Gap 1 L, BUN 8, Creatinine 0.55, Estim Creat Clear Calc 108.02, Est GFR (MDRD) Af Amer 152, Est GFR (MDRD) Non-Af 126, BUN/Creatinine Ratio 14.6, Glucose 168 H, Calcium 7.8 L 03/23/20 06:45: POC Glucose 151 H 03/23/20 11:03: POC Glucose 84 Current Medications Acetaminophen (Tylenol) 650 mg PO Q6H PRN PRN PRN Reason: Pain Score 1-10/Temp > 100.7 F Last Admin: 03/23/20 04:41 Dose: 650 mg Documented by: Atorvastatin Calcium (Lipitor) 80 mg PO QHS [facility] Last Admin: 03/22/20 19:43 Dose: 80 mg Documented by: Cyanocobalamin (Vitamin B12) 1,000 mcg PO DAILYCM [facility] Last Admin: 03/23/20 08:03 Dose: 1,000 mcg Documented by: Dextrose (D50w Syringe) 0 gm IV X1 PRN; Protocol PRN Reason: Hypoglycemia Duloxetine HCl (Cymbalta) 60 mg PO DAILY@1800 [facility] Last Admin: 03/23/20 08:03 Dose: 60 mg Documented by: Enoxaparin Sodium (Lovenox) 40 mg SC DAILY [facility] Famotidine (Pepcid) 20 mg PO BID [facility] Last Admin: 03/23/20 08:03 Dose: 20 mg Documented by: Glucagon () 1 mg IM .X1 PRN PRN Reason: Hypoglycemia Hydrochlorothiazide () 12.5 mg PO DAILY [facility] Last Admin: 03/23/20 08:03 Dose: 12.5 mg Documented by: Hydroxyzine Pamoate (Vistaril Pamoate Capsule) 50 mg PO TID PRN PRN PRN Reason: ANXIETY Last Admin: 03/22/20 19:45 Dose: 50 mg Documented by: Sodium Chloride () 1,000 mls @ 100 mls/hr IV .Q10H [facility] Last Admin: 03/23/20 06:11 Dose: 100 mls/hr Documented by: Piperacillin Sod/Tazobactam (Sod 3.375 gm/ Sodium Chloride) 50 mls @ 12.5 mls/hr IV Q8 [facility] Last Admin: 03/23/20 13:18 Dose: 12.5 mls/hr Documented by: Insulin Glargine (Lantus (Bkc)) 10 units SC BID [facility] Last Admin: 03/23/20 10:20 Dose: Not Given Documented by: Insulin Human Lispro (Humalog Kwikpen (Bkc)) 0 unit SC ACHS [facility]; Protocol Last Admin: 03/23/20 11:04 Dose: Not Given Documented by: Insulin Human Lispro (Humalog Kwikpen (Bkc)) 10 unit SC TIDAC [facility] Last Admin: 03/23/20 12:29 Dose: 10 units Documented by: Losartan Potassium (Cozaar) 50 mg PO DAILY [facility] Last Admin: 03/23/20 08:03 Dose: 50 mg Documented by: Morphine Sulfate () 2 mg IV Q3H PRN PRN PRN Reason: Pain Score 6-10/10 Last Admin: 03/23/20 06:10 Dose: 2 mg Documented by: Nicotine (Nicoderm Cq (Pbkc)) 21 mg TRANSDERM. DAILY [facility] Last Admin: 03/23/20 08:03 Dose: 21 mg Documented by: Ondansetron HCl (Zofran) 4 mg IV Q8H PRN PRN PRN Reason: NAUSEA/VOMITING Oxycodone HCl (Oxyir) 5 mg PO Q4H PRN PRN PRN Reason: Pain Score 4-5/10 Last Admin: 03/23/20 04:41 Dose: 5 mg Documented by: Polysaccharide Iron Complex (Ferrex 150) 150 mg PO DAILY [facility] Pregabalin (Lyrica) 100 mg PO BID [facility] Last Admin: 03/23/20 08:03 Dose: 100 mg Documented by: Sodium Chloride () 10 - 40 ml IV UD PRN PRN Reason: SALINE FLUSH Last Admin: 03/22/20 18:20 Dose: 10 ml Documented by: Trazodone HCl (Desyrel) 100 mg PO QHS [facility] Last Admin: 03/22/20 19:45 Dose: 100 mg Documented by: STROKE Vital Signs/Narrative: Vital Signs Temp Pulse Resp BP Pulse Ox 03/23/20 14:16 80 03/23/20 13:54 98.0 F 79 16 128/68 H 97 Addendum: Dr. Rahman I personally examined the patient and reviewed the chart. I agree with the above. 49-year-old female with a history of diabetes presents with right second toe cellulitis and osteomyelitis on MRI. She underwent operative debridement and amputation of her toe which was sent for culture. Blood cultures are negative however superficial wound cultures demonstrating staph aureus and gram- negative rods, with a negative MRSA PCR. Can discontinue vancomycin continue with dose of Zosyn for now. She is doing well postoperatively. Appreciate both podiatry and ID input. Because the amputation she will likely need a short course of oral antibiotics. Inpatient E&M: 78407 Subs Hosp L2
[2020-03-23 13:54] VITALS: BP 128/68; PULSE 79; RESP 16; TEMP 36.7; O2SAT 97
--- NOTE | 2020-03-23 13:54 | CASEMGMT ---
Social Work Note SW in to speak with pt regarding advanced directives. Pt completed advanced directives. Original provided to pt and copy placed on pt's chart. Chica Torres [employer] PHOTOGRAPHER, [employer]
[2020-03-23 14:16] VITALS: PULSE 80
[2020-03-23 16:01] LABS: Bedside Glucose 119 mg/dL (70-110)
--- NOTE | 2020-03-23 18:33 | PN_ITS ---
Patient Problems: Active and Suspected Problems Osteomyelitis of toe of right foot (Suspected) Osteomyelitis of toe of right foot (Acute) Subjective: Patient was seen today for follow up on right foot. She relates foot is feeling better, no complaints. No complaints of fever, chills, nausea or vomiting. - Physical Exam Vitals/I&O's: Vital Signs Temp Pulse Resp BP Pulse Ox 98.0 F 80 16 128/68 H 97 03/23/20 13:54 03/23/20 14:16 03/23/20 13:54 03/23/20 13:54 03/23/20 13:54 Oxygen Delivery Method Room Air Weight: 106.549 kg Body Mass Index (BMI) 39.1 Finger Stick Blood Glucose 229 Intake and Output for Last 24 Hours 03/21/20 03/22/20 03/23/20 23:59 23:59 23:59 Intake Total 1580.0 / 1780.0 5270 / 5270 3275 / 3275 Output Total 1200 / 1200 850 / 850 Balance 1580.0 / 1380.0 4070 / 4070 2425 / 2425 General: Alert, Oriented x3, Cooperative, No apparent distress Extremities: Capillary Refill Less than 3 Seconds, No Calf Tenderness, Peripheral Pulses Normal, - - s/p debridement/amputation right 2nd toe - tissues viable and well coapted, no necrosis, no fluctuance, no evidence of cellulitis at this time, no drainage, no maloder - healing well. No new ulcerations or areas of breakdown right foot. No POP or pain on ROM to the foot/ankle, right. Psych/Mental Status: Normal Affect, Appropriate, Alert and oriented to time, place, person, mood and affect Microbiology Past 72 Hours 03/22/20 12:34 Tissue - Right Foot Gram Stain - Final 03/22/20 12:34 Tissue - Right Foot Wound Culture - Preliminary No growth-Final to follow 03/22/20 12:33 Tissue - Right Foot Gram Stain - Final 03/22/20 12:33 Tissue - Right Foot Wound Culture - Preliminary Beta hemolytic organism Mixed Olivia 03/21/20 16:15 Wound - Right Foot Gram Stain - Final 03/21/20 16:15 Wound - Right Foot Wound Culture - Preliminary Staphylococcus aureus Gram negative madeline 03/21/20 15:30 Blood Culture (Wb) - Left Forearm Blood Culture - Preliminary No growth in 48 hours. 03/21/20 15:10 Blood Culture (Wb) - Left Hand Blood Culture - Preliminary No growth in 48 hours. Laboratory Results 03/22/20 21:38: POC Glucose 172 H 03/23/20 02:10: Vancomycin Trough 12.6 03/23/20 02:10: WBC 9.9, RBC 3.73 L, Hgb 8.9 L, Hct 32.0 L, MCV 85.8 D, MCH 23.9 L, MCHC 27.8 L D, RDW Std Deviation 52.2 H, RDW Coeff of Brea 16.7 H, Plt Count 251, MPV 9.3 03/23/20 02:10: Sodium 139, Potassium 3.7, Chloride 112 H, Carbon Dioxide 26.0, Anion Gap 1 L, BUN 8, Creatinine 0.55, Estim Creat Clear Calc 108.02, Est GFR (MDRD) Af Amer 152, Est GFR (MDRD) Non-Af 126, BUN/Creatinine Ratio 14.6, Glucose 168 H, Calcium 7.8 L 03/23/20 06:45: POC Glucose 151 H 03/23/20 11:03: POC Glucose 84 03/23/20 15:54: POC Glucose 119 H Current Medications Acetaminophen (Tylenol) 650 mg PO Q6H PRN PRN PRN Reason: Pain Score 1-10/Temp > 100.7 F Last Admin: 03/23/20 04:41 Dose: 650 mg Documented by: Atorvastatin Calcium (Lipitor) 80 mg PO QHS [facility] Last Admin: 03/22/20 19:43 Dose: 80 mg Documented by: [facility] Last Admin: 03/23/20 08:03 Dose: 1,000 mcg Documented by: Dextrose (D50w Syringe) 0 gm IV X1 PRN; Protocol PRN Reason: Hypoglycemia Duloxetine HCl (Cymbalta) 60 mg PO DAILY@1800 [facility] Last Admin: 03/23/20 08:03 Dose: 60 mg Documented by: Enoxaparin Sodium (Lovenox) 40 mg SC DAILY [facility] Famotidine (Pepcid) 20 mg PO BID [facility] Last Admin: 03/23/20 08:03 Dose: 20 mg Documented by: Glucagon () 1 mg IM .X1 PRN PRN Reason: Hypoglycemia Hydrochlorothiazide () 12.5 mg PO DAILY [facility] Last Admin: 03/23/20 08:03 Dose: 12.5 mg Documented by: Hydroxyzine Pamoate (Vistaril Pamoate Capsule) 50 mg PO TID PRN PRN PRN Reason: ANXIETY Last Admin: 03/22/20 19:45 Dose: 50 mg Documented by: Sodium Chloride () 1,000 mls @ 100 mls/hr IV .Q10H [facility] Last Admin: 03/23/20 15:59 Dose: 100 mls/hr Documented by: Piperacillin Sod/Tazobactam (Sod 3.375 gm/ Sodium Chloride) 50 mls @ 12.5 mls/hr IV Q8 [facility] Last Infusion: 03/23/20 17:44 Dose: Infused Documented by: Insulin Glargine (Lantus (Bkc)) 10 units SC BID [facility] Last Admin: 03/23/20 10:20 Dose: Not Given Documented by: Insulin Human Lispro (Humalog Kwikpen (Bkc)) 0 unit SC ACHS [facility]; Protocol Last Admin: 03/23/20 16:00 Dose: Not Given Documented by: Insulin Human Lispro (Humalog Kwikpen (Bkc)) 10 unit SC TIDAC [facility] Last Admin: 03/23/20 16:54 Dose: 10 units Documented by: Losartan Potassium (Cozaar) 50 mg PO DAILY [facility] Last Admin: 03/23/20 08:03 Dose: 50 mg Documented by: Morphine Sulfate () 2 mg IV Q3H PRN PRN PRN Reason: Pain Score 6-10/10 Last Admin: 03/23/20 06:10 Dose: 2 mg Documented by: Nicotine (Nicoderm Cq (Pbkc)) 21 mg TRANSDERM. DAILY [facility] Last Admin: 03/23/20 08:03 Dose: 21 mg Documented by: Ondansetron HCl (Zofran) 4 mg IV Q8H PRN PRN PRN Reason: NAUSEA/VOMITING Oxycodone HCl (Oxyir) 5 mg PO Q4H PRN PRN PRN Reason: Pain Score 4-5/10 Last Admin: 03/23/20 16:00 Dose: 5 mg Documented by: Polysaccharide Iron Complex (Ferrex 150) 150 mg PO DAILY [facility] Pregabalin (Lyrica) 100 mg PO BID [facility] Last Admin: 03/23/20 08:03 Dose: 100 mg Documented by: Sodium Chloride () 10 - 40 ml IV UD PRN PRN Reason: SALINE FLUSH Last Admin: 03/22/20 18:20 Dose: 10 ml Documented by: Trazodone HCl (Desyrel) 100 mg PO QHS [facility] Last Admin: 03/22/20 19:45 Dose: 100 mg Documented by: Medical Necessity - Tobacco Use Smoking Status: Current every day smoker Tobacco Use: Cigarettes Assessment/Plan All Active Problems Osteomyelitis of toe of right foot (Acute) Ulceration down to necrotic bone w/ osteomyelitis right 2nd toe s/p samantha ridement/amputation on 03/22/2020 Diabetes w/ peripheral neuropathy Site checked, healing well, no evidence of complication at this time. Ordered LEAS for further evaluation of arterial flow - reviewed - good arterial flow to foot. No weightbearing right foot. Apply betadine, gauze, kerlix and jessica dressing to right foot - keep dressing clean, dry and intact. Reviewed importance of proper blood sugar control and tobacco cessation to help optimize healing and help prevent further diabetic foot complications. Podiatry will continue to follow; ok to d/c home when ok with ID and medicine teams. Patient to follow up with [facility] on Friday at 8:45am as scheduled, sooner if needed.
--- NOTE | 2020-03-23 18:37 | PCM.DC.POD ---
Discharge Activity: May Not Drive, Use Walker Weight Bearing Status: No weight bearing - No weightbearing on toes on right foot, ok to put partial weight on right heel for transitions if needed. Keep extremity elevated above heart level: Right Leg - Keep right foot elevated w/ pillows as much as possible. Call your doctor if your incision/area has: Continuous Slow Oozing, Sudden Increased Bleeding, Foul Smelling Discharge Call your doctor if you observe: Fever of 101 or Higher, Shortness of breath, Chest pain, Calf discomfort, Uncontrolled pain Cleanse incision/area with: Do not get Incision Wet, Keep Dressing Clean & Dry Allergies/Adverse Reactions: Allergies clindamycin Allergy (Verified 03/21/20 14:16) Hives erythromycin base [From E-Mycin] Allergy (Verified 03/21/20 14:16) Hives Medications to take at Discharge Famotidine [Pepcid] 20 mg PO BID 05/18/19 Hydroxyzine Pamoate [Vistaril] 50 mg PO TID PRN PRN 05/18/19 traZODone [Desyrel] 100 mg PO QHS 06/12/19 Duloxetine Hcl [Cymbalta] 30 mg PO DAILY PRN PRN 06/13/19 Albuterol Inhaler [Ventolin Hfa] 1 - 2 puff INHALATION Q6H PRN PRN 08/30/19 Atorvastatin Calcium [Lipitor] 80 mg PO QHS 08/30/19 Biotin 1 mg PO DAILY 08/30/19 Dulaglutide [Trulicity] 0.75 mg SQ WE 08/30/19 Insulin Aspart [Novolog Flexpen] See Protocol SQ TIDCM 08/30/19 Cyanocobalamin (Vitamin B-12) [B-12] 1,000 mcg PO DAILY 03/21/20 Duloxetine HCl 60 mg PO DAILY@1800 03/21/20 Hydrochlorothiazide 12.5 mg PO DAILY 03/21/20 Losartan Potassium [Cozaar] 50 mg PO DAILY 03/21/20 Multivitamin with Minerals [Multiple Vitamin] 1 tab PO DAILY 03/21/20 Pregabalin [Lyrica] 100 mg PO BID 03/21/20 Acetaminophen [Tylenol Tablet] 650 mg PO Q6H PRN PRN tab 03/24/20 Fluconazole [Diflucan] 200 mg PO X1 #1 tab 03/24/20 Insulin Degludec [Tresiba Flextouch U-100] 10 unit SQ BID #0 03/24/20 Iron Polysaccharide Complex [Ferrex 150] 150 mg PO DAILY #30 cap 03/24/20 Metronidazole [Flagyl] 500 mg PO TID #15 tab 03/24/20 Nicotine [Nicoderm Cq] 21 mg TRANSDERM. DAILY #14 patch 03/24/20 Nystatin [Mycostatin] 1 applic TOPICAL BID tube 03/24/20 levoFLOXacin tablet [Levaquin tablet] 500 mg PO DAILY #5 tab 03/24/20 The following prescriptions were given: Fluconazole [Diflucan] 200 mg PO X1 #1 tab Transmission Status: Re[facility] by [facility] Iron Polysaccharide Complex [Ferrex 150] 150 mg PO DAILY #30 cap Transmission Status: Received by [facility] Metronidazole [Flagyl] 500 mg PO TID #15 tab Transmission Status: Received by [facility] levoFLOXacin tablet [Levaquin tablet] 500 mg PO DAILY #5 tab Transmission Status: Received by [facility] Nicotine [Nicoderm Cq] 21 mg TRANSDERM. DAILY #14 patch Transmission Status: Received by [facility]/pharmacy #[id number] Orders to be completed after discharge: Walker Location: None Selected Primary Care Physician: Shirley Garcia MD [Primary Care Provider] - Test Results: Test results from this visit will be discussed in further detail at your follow-up appointment, if applicable. Please Follow Up With: Baldomero Muniz, DPM - [address], [place], [place]; [phone] When: 03/27/2020 @ 8:45am @ [facility]
[2020-03-23 20:19] VITALS: BP 154/80; PULSE 80; RESP 16; TEMP 37.3; O2SAT 98
[2020-03-23] MEDS: Atorvastatin Calcium 80 MG Tablet PO (20:28)
[2020-03-23] MEDS: traZODone 100 MG Tablet PO (20:29)
[2020-03-23] MEDS: hydrOXYzine PAM 25 MG Capsule 50 MG PO (20:54)
[2020-03-23 22:50] LABS: Bedside Glucose 162 mg/dL (70-110)
[2020-03-24 02:40] VITALS: BP 104/66; PULSE 72; RESP 16; TEMP 36.6; O2SAT 93
[2020-03-24 06:00] LABS: Absolute Neutrophil Count 5.6 X10^3/uL (2.0-7.7); Basophil# 0.07 X10^3/uL; Basophil% 0.8 % (0-1); Eosinophil# 0.28 X10^3/uL; Eosinophils% 3.3 % (0-5); Hematocrit 33.7 % (37-47); Hemoglobin 9.3 g/dL (12.0-15.0); Lymphocyte % 21.4 % (19-41); Mean Corp Hgb Conc 27.6 g/dL (32-36); Mean Corpuscular Volume 86.9 fL (81-99); Mean Platelet Vol. 9.5 fl (6.2-12.0); Monocyte# 0.67 X10^3/uL; Monocyte% 7.9 % (0-10); NRBC Flagged by Analyzer 0 % (0-5); Neutrophil # 5.58 X10^3/uL (2.7-7.7); Neutrophil % 66.2 % (47-70); Platelet Count 256 K/mm3 (150-450); RBC Distribution Width CV 17.1 % (11.6-14.6); RBC Distribution Width SD 53.9 fl (35.1-43.9); Red Blood Count 3.88 M/mm3 (4.2-5.4); White Blood Count 8.4 K/mm3 (4.4-11.0)
[2020-03-24] MEDS: 0.9% Normal Saline 1,000 ML 100 ML IV (06:18)
[2020-03-24 06:50] LABS: Bedside Glucose 79 mg/dL (70-110)
[2020-03-24 08:40] VITALS: BP 140/79; PULSE 79; RESP 16; TEMP 36.6; O2SAT 94
--- NOTE | 2020-03-24 09:07 | NURSING ---
Order is to leave dressing clean and dry to the right foot. will leave in place unless hear otherwise from Dr Muniz.
[2020-03-24] MEDS: Iron Polysaccharide Complex 150 MG CAPSULE PO (09:58)
[2020-03-24] MEDS: Cyanocobalamin 500 MCG Tablet 1000 MCG PO (09:58)
[2020-03-24] MEDS: Losartan Potassium 50 MG Tablet PO (09:59)
[2020-03-24] MEDS: Enoxaparin 40 MG/0.4 ML Syringe SC (09:59)
[2020-03-24] MEDS: Famotidine 20 MG Tablet PO (09:59)
[2020-03-24] MEDS: hydroCHLOROthiazide 12.5mg 12.5 MG PO (10:00)
[2020-03-24] MEDS: Pregabalin 50 MG Capsule 100 MG PO (10:10)
--- NOTE | 2020-03-24 10:13 | DCINST_ITS ---
- Discharge Diagnoses Current Active Problems: Current Active and Chronic Problems Osteomyelitis of toe of right foot (Acute) Chronic ulcer of right foot with fat layer exposed (Chronic) You will use the following diet at home:: Calorie/Carbohydrate Controlled (specify 1200, 1400, etc) - 1800 ron / day, Cardiac Your food should be the consistency of: Regular Your liquids should be the consistency of: Regular/Thin Discharge Activity: May Not Drive, Use Walker Weight Bearing Status: No weight bearing - No weightbearing on toes on right foot, ok to put partial weight on right heel for transitions if needed. Keep extremity elevated above heart level: Right Leg - Keep right foot elevated w/ pillows as much as possible. Call your doctor if your incision/area has: Continuous Slow Oozing, Sudden Increased Bleeding, Foul Smelling Discharge Call your doctor if you observe: Fever of 101 or Higher, Shortness of breath, Chest pain, Calf discomfort, Uncontrolled pain Cleanse incision/area with: Do not get Incision Wet, Keep Dressing Clean & Dry Allergies/Adverse Reactions: Allergies clindamycin Allergy (Verified 03/21/20 14:16) Hives erythromycin base [From E-Mycin] Allergy (Verified 03/21/20 14:16) Hives Medications to take at Discharge Famotidine [Pepcid] 20 mg PO BID 05/18/19 Hydroxyzine Pamoate [Vistaril] 50 mg PO TID PRN PRN 05/18/19 traZODone [Desyrel] 100 mg PO QHS 06/12/19 Duloxetine Hcl [Cymbalta] 30 mg PO DAILY PRN PRN 06/13/19 Albuterol Inhaler [Ventolin Hfa] 1 - 2 puff INHALATION Q6H PRN PRN 08/30/19 Atorvastatin Calcium [Lipitor] 80 mg PO QHS 08/30/19 Biotin 1 mg PO DAILY 08/30/19 Dulaglutide [Trulicity] 0.75 mg SQ WE 08/30/19 Insulin Aspart [Novolog Flexpen] See Protocol SQ TIDCM 08/30/19 Cyanocobalamin (Vitamin B-12) [B-12] 1,000 mcg PO DAILY 03/21/20 Duloxetine HCl 60 mg PO DAILY@1800 03/21/20 Hydrochlorothiazide 12.5 mg PO DAILY 03/21/20 Losartan Potassium [Cozaar] 50 mg PO DAILY 03/21/20 Multivitamin with Minerals [Multiple Vitamin] 1 tab PO DAILY 03/21/20 Pregabalin [Lyrica] 100 mg PO BID 03/21/20 Acetaminophen [Tylenol Tablet] 650 mg PO Q6H PRN PRN tablet 03/24/20 Insulin Degludec [Tresiba Flextouch U-100] 10 unit SQ BID #0 03/24/20 Iron Polysaccharide Complex [Ferrex 150] 150 mg PO DAILY #30 capsule 03/24/20 Nicotine [Nicoderm Cq] 21 mg TRANSDERM. DAILY #14 patch 03/24/20 Nystatin [Mycostatin] 1 applic TOPICAL BID tube 03/24/20 Oxycodone [Oxyir] 5 mg PO Q6H PRN PRN 3 Days #12 tablet 03/24/20 The following prescriptions were given: Iron Polysaccharide Complex [Ferrex 150] 150 mg PO DAILY #30 capsule Nicotine [Nicoderm Cq] 21 mg TRANSDERM. DAILY #14 patch Oxycodone [Oxyir] 5 mg PO Q6H PRN PRN 3 Days #12 tablet PRN Reason: Pain Score 6-10/10 Orders to be completed after discharge: Walker Location: None Selected Primary Care Physician: Shirley Garcia MD [Primary Care Provider] - Please follow up with your Primary Care Physician in: 1-2 weeks Test Results: Test results from this visit will be discussed in further detail at your follow- up appointment, if applicable. Please Follow Up With: Baldomero Muniz, DPM - [address], [place], [place]; [phone] When: 03/27/2020 @ 8:45am @ [facility] Proposed Discharge Date: 03/24/20
[2020-03-24 12:40] LABS: Bedside Glucose 168 mg/dL (70-110)
[2020-03-24 13:00] VITALS: BP 138/78; PULSE 75; RESP 16; TEMP 36.2; O2SAT 95
--- NOTE | 2020-03-24 13:15 | PCM.DC.SUM ---
<Nilo Holman - Last Filed: 03/24/20 13:31> Discharge Date and Diagnosis Date of Admission: 03/21/20 - Primary Discharge Diagnosis Acute Problems: Active Problems Osteomyelitis of toe of right foot (Acute) vaginal candidiasis DMt2 Nicotine abuse Obesity Suspected Problems: Suspected Problems Osteomyelitis of toe of right foot (Suspected) - Secondary Discharge Diagnosis Chronic Problems: Chronic Problems Meniere disease (Chronic) Chronic ulcer of right foot with fat layer exposed (Chronic) Type 2 diabetes mellitus with diabetic polyneuropathy (Chronic) Hammer toe of right foot (Chronic) Obesity (BMI 30-39.9) (Chronic) Vertigo (Chronic) Hyperlipidemia (Chronic) Fibromyalgia (Chronic) Depression with anxiety (Chronic) Hospital Course and Treatment Imaging Results: RAD/Foot min 3 Views IMPRESSION: Status post amputation of the first and second toes. Findings suspicious for evolving acute osteomyelitis involving the distal shaft of the proximal phalanx of the second toe. MRI/Lower Ext/No Jt/w/o IMPRESSION: 1. Osteomyelitis in the proximal phalanx of the second digit with an open soft tissue ulcer and surrounding soft tissue edema/cellulitis. 2. A small effusion is present in the second MTP joint space. Arterial Study: Interpretation Summary Triphasic Doppler waveforms are noted at ankle level bilaterally. Pulse-volume recordings appear satisfactory at all levels bilaterally. The resting right ankle-brachial index is normal. The resting left ankle-brachial index is supra-normal. The right digital-brachial index was not determined due to recent surgery. The left digital-brachial index is normal. There is evidence of arterial calcification distally in the left lower extremity. There is no evidence of significant arterial occlusive disease in the lower extremities bilaterally. RAD/Foot min 3 Views IMPRESSION: Status post surgical resection of the second proximal phalanx Consultations 03/21/20 18:27 Consult: Onc/Wound/glaze sprayer Routine Comment: Podiatry: Cristy ID : [id number] Operations: - - right 2nd digit amputation 03/22/20 Procedures: None Summary of Care Provided: Hospital Course: The patient is a 49 year old F with pmhx of DMt2, nicotine abuse, obesity, who presented to the ER with c/o redness of the right 2nd digit, and shaking chills with foul smelling discharge. Xray showed possible osteomyelitis, MRI showed osteomyelitis. She was placed on vanc and zosyn and ID and podiatry were consulted. Arterial study were not indicative of PAD. She was taken to the OR and had right 2nd toe amputation on 03/22. She tolerated the procedure well. Wound and surgical culture swere sent. She demonstrated MSSA and Enterobacter cloacae. Infectious disease transitioned her antibiotics to 5 more days of levaquin and flagyl. She will need complete smoking cessation and I advised the importance of nicotine cessation to promote wound healing. She requested and was prescribed nicotine patches. She had significant microcytic anemia while here and iron studies demonstrated significant deficiency. She was given venofer with transition to PO iron. She had hypoglycemia initially with her home basal insulin, and this was decreased significant to 10 units BID. She had a vaginal yeast infection while here and was placed on topical fluconazole. She was provided with a dose of diflucan oral to take once she completes antibiotic therapy for her infection. She was discharged home in stable condition with activity restriction per podiatry. She will need follow up with podiatry within 1 week and with her PCP in 1-2 weeks. This patient was seen by Nilo Holman PA-C under the supervision of Dr. Rahman [] - Physical Exam Vitals/I&O's: Vital Signs Temp Pulse Resp BP Pulse Ox 97.8 F 72 16 104/66 93 03/24/20 02:40 03/24/20 02:40 03/24/20 02:40 03/24/20 02:40 03/24/20 02:40 Oxygen Delivery Method Room Air Weight: 234 lb 14.405 oz Body Mass Index (BMI) 39.1 Finger Stick Blood Glucose 229 Intake and Output for Last 24 Hours 03/22/20 03/23/20 03/24/20 23:59 23:59 23:59 Intake Total 5270 / 5270 3675 / 3675 1451.67 / 1451.67 Output Total 1200 / 1200 850 / 850 Balance 4070 / 4070 2825 / 2825 1451.67 / 1451.67 General: Alert, Oriented x3, Cooperative HEENT: Atraumatic, PERRLA, EOMI, Normocephalic Neck: Supple, No JVD, Negative Carotid Bruits Lungs: Clear to auscultation, Normal air movement Cardiovascular: Regular rate, No murmurs Abdomen: Bowel Sounds Present, Soft, Non Tender Extremities: No edema, Capillary Refill Less than 3 Seconds Skin: No rashes, No breakdown Musculoskeletal: No Tenderness to Palpation of Joints or Extremities Neurological: Cranial nerves II-XII grossly intact Psych/Mental Status: Normal Affect, Appropriate, Alert and oriented to time, place, person, mood and affect Microbiology Past 72 Hours 03/22/20 12:33 Tissue - Right Foot Gram Stain - Final 03/22/20 12:33 Tissue - Right Foot Wound Culture - Preliminary Staphylococcus aureus Gram negative madeline Alpha Hemolytic Streptococcus 03/22/20 12:33 Tissue - Right Foot Anaerobic Culture - Preliminary Checking for anaerobes, further studies to follow. 03/22/20 12:34 Tissue - Right Foot Gram Stain - Final 03/22/20 12:34 Tissue - Right Foot Wound Culture - Preliminary No growth-Final to follow 03/22/20 12:34 Tissue - Right Foot Anaerobic Culture - Preliminary No growth in 48 hours. 03/21/20 16:15 Wound - Right Foot Gram Stain - Final 03/21/20 16:15 Wound - Right Foot Wound Culture - Final Staphylococcus aureus Enterobacter cloacae complex 03/21/20 15:30 Blood Culture (Wb) - Left Forearm Blood Culture - Preliminary No growth in 48 hours. 03/21/20 15:10 Blood Culture (Wb) - Left Hand Blood Culture - Preliminary No growth in 48 hours. Laboratory Results 03/23/20 15:54: POC Glucose 119 H 03/23/20 22:36: POC Glucose 162 H 03/24/20 05:38: WBC 8.4, RBC 3.88 L, Hgb 9.3 L, Hct 33.7 L, MCV 86.9, MCH 24.0 L, MCHC 27.6 L, RDW Std Deviation 53.9 H, RDW Coeff of Brea 17.1 H, Plt Count 256, MPV 9.5, Immature Gran % (Auto) 0.400, Neut % (Auto) 66.2, Lymph % (Auto) 21.4, Jack % (Auto) 7.9, Eos % (Auto) 3.3, Baso % (Auto) 0.8, Absolute Neuts (auto) 5.6, Absolute Lymphs (auto) 1.80, Nucleated RBC % 0 03/24/20 06:44: POC Glucose 79 03/24/20 12:25: POC Glucose 168 H Current Medications Acetaminophen (Tylenol) 650 mg PO Q6H PRN PRN PRN Reason: Pain Score 1-10/Temp > 100.7 F Last Admin: 03/23/20 20:28 Dose: 650 mg Documented by: Atorvastatin Calcium (Lipitor) 80 mg PO QHS [facility] Last Admin: 03/23/20 20:28 Dose: 80 mg Documented by: Cyanocobalamin (Vitamin B12) 1,000 mcg PO DAILYCM [facility] Last Admin: 03/24/20 09:58 Dose: 1,000 mcg Documented by: Dextrose (D50w Syringe) 0 gm IV X1 PRN; Protocol PRN Reason: Hypoglycemia Duloxetine HCl (Cymbalta) 60 mg PO DAILY@1800 [facility] Last Admin: 03/23/20 08:03 Dose: 60 mg Documented by: Enoxaparin Sodium (Lovenox) 40 mg SC DAILY [facility] Last Admin: 03/24/20 09:59 Dose: 40 mg Documented by: Famotidine (Pepcid) 20 mg PO BID [facility] Last Admin: 03/24/20 09:59 Dose: 20 mg Documented by: Glucagon () 1 mg IM .X1 PRN PRN Reason: Hypoglycemia Hydrochlorothiazide () 12.5 mg PO DAILY [facility] Last Admin: 03/24/20 10:00 Dose: 12.5 mg Documented by: Hydroxyzine Pamoate (Vistaril Pamoate Capsule) 50 mg PO TID PRN PRN PRN Reason: ANXIETY Last Admin: 03/23/20 20:54 Dose: 50 mg Documented by: Sodium Chloride () 1,000 mls @ 100 mls/hr IV .Q10H [facility] Last Infusion: 03/24/20 06:19 Dose: 0 mls/hr Documented by: Piperacillin Sod/Tazobactam (Sod 3.375 gm/ Sodium Chloride) 50 mls @ 12.5 mls/hr IV Q8 [facility] Last Infusion: 03/24/20 10:15 Dose: Infused Documented by: Insulin Glargine (Lantus (Bk)) 10 units SC BID [facility] Last Admin: 03/24/20 09:57 Dose: Not Given Documented by: Insulin Human Lispro (Humalog Kwikpen ([facility])) 0 unit SC ACHS [facility]; Protocol Last Admin: 03/24/20 12:25 Dose: Not Given Documented by: Insulin Human Lispro (Humalog Kwikpen ([facility])) 10 unit SC TIDAC [facility] Last Admin: 03/24/20 12:26 Dose: Not Given Documented by: Losartan Potassium (Cozaar) 50 mg PO DAILY [facility] Last Admin: 03/24/20 09:59 Dose: 50 mg Documented by: Morphine Sulfate () 2 mg IV Q3H PRN PRN PRN Reason: Pain Score 6-10/10 Last Admin: 03/23/20 06:10 Dose: 2 mg Documented by: Nicotine (Nicoderm Cq ([facility])) 21 mg TRANSDERM. DAILY [facility] Last Admin: 03/24/20 09:59 Dose: 21 mg Documented by: Nystatin (Mycostatin) 1 applic TOPICAL BID [facility]; Protocol Last Admin: 03/24/20 12:26 Dose: Not Given Documented by: Ondansetron HCl (Zofran) 4 mg IV Q8H PRN PRN PRN Reason: NAUSEA/VOMITING Oxycodone HCl (Oxyir) 5 mg PO Q4H PRN PRN PRN Reason: Pain Score 4-5/10 Last Admin: 03/23/20 20:28 Dose: 5 mg Documented by: Polysaccharide Iron Complex (Ferrex 150) 150 mg PO DAILY [facility] Last Admin: 03/24/20 09:58 Dose: 150 mg Documented by: Pregabalin (Lyrica) 100 mg PO BID [facility] Last Admin: 03/24/20 10:10 Dose: 100 mg Documented by: Sodium Chloride () 10 - 40 ml IV UD PRN PRN Reason: SALINE FLUSH Last Admin: 03/22/20 18:20 Dose: 10 ml Documented by: Trazodone HCl (Desyrel) 100 mg PO QHS [facility] Last Admin: 03/23/20 20:29 Dose: 100 mg Documented by: Discharge Diet: Low fat/ Low Cholesterol, 1800 Calorie Control Diet, 2000 mg Sodium Diet Discharge Activity: May Not Drive, Use Walker Weight Bearing Status: No weight bearing - No weightbearing on toes on right foot, ok to put partial weight on right heel for transitions if needed. Keep extremity elevated above heart level: Right Leg - Keep right foot elevated w/ pillows as much as possible. Call your doctor if your incision/area has: Continuous Slow Oozing, Sudden Increased Bleeding, Foul Smelling Discharge Call your doctor if you observe: Fever of 101 or Higher, Shortness of breath, Chest pain, Calf discomfort, Uncontrolled pain Cleanse incision/area with: Do not get Incision Wet, Keep Dressing Clean & Dry Home Medications: Medications to take at Discharge Famotidine [Pepcid] 20 mg PO BID 05/18/19 Hydroxyzine Pamoate [Vistaril] 50 mg PO TID PRN PRN 05/18/19 traZODone [Desyrel] 100 mg PO QHS 06/12/19 Duloxetine Hcl [Cymbalta] 30 mg PO DAILY PRN PRN 06/13/19 Albuterol Inhaler [Ventolin Hfa] 1 - 2 puff INHALATION Q6H PRN PRN 08/30/19 Atorvastatin Calcium [Lipitor] 80 mg PO QHS 08/30/19 Biotin 1 mg PO DAILY 08/30/19 Dulaglutide [Trulicity] 0.75 mg SQ WE 08/30/19 Insulin Aspart [Novolog Flexpen] See Protocol SQ TIDCM 08/30/19 Cyanocobalamin (Vitamin B-12) [B-12] 1,000 mcg PO DAILY 03/21/20 Duloxetine HCl 60 mg PO DAILY@1800 03/21/20 Hydrochlorothiazide 12.5 mg PO DAILY 03/21/20 Losartan Potassium [Cozaar] 50 mg PO DAILY 03/21/20 Multivitamin with Minerals [Multiple Vitamin] 1 tab PO DAILY 03/21/20 Pregabalin [Lyrica] 100 mg PO BID 03/21/20 Acetaminophen [Tylenol Tablet] 650 mg PO Q6H PRN PRN tab 03/24/20 Fluconazole [Diflucan] 200 mg PO X1 #1 tab 03/24/20 Insulin Degludec [Tresiba Flextouch U-100] 10 unit SQ BID #0 03/24/20 Iron Polysaccharide Complex [Ferrex 150] 150 mg PO DAILY #30 cap 03/24/20 Metronidazole [Flagyl] 500 mg PO TID #15 tab 03/24/20 Nicotine [Nicoderm Cq] 21 mg TRANSDERM. DAILY #14 patch 03/24/20 Nystatin [Mycostatin] 1 applic TOPICAL BID tube 03/24/20 Oxycodone [Oxyir] 5 mg PO Q6H PRN PRN 3 Days #12 tab 03/24/20 levoFLOXacin tablet [Levaquin tablet] 500 mg PO DAILY #5 tab 03/24/20 Following Prescrptions Were Given to Patient: Fluconazole [Diflucan] 200 mg PO X1 #1 tab Transmission Status: Received by [facility] Iron Polysaccharide Complex [Ferrex 150] 150 mg PO DAILY #30 cap Transmission Status: [facility] [place] [address] Metronidazole [Flagyl] 500 mg PO TID #15 tab [facility]: [facility] [place] [address] levoFLOXacin tablet [Levaquin tablet] 500 mg PO DAILY #5 tab Transmission Status: [facility] [place] [address] Nicotine [Nicoderm Cq] 21 mg TRANSDERM. DAILY #14 patch Transmission Status: Received by [facility]/pharmacy #[id number] Oxycodone [Oxyir] 5 mg PO Q6H PRN PRN 3 Days #12 tab PRN Reason: Pain Score 6-10/10 Transmission Status: Received by [facility] Other Amb Orders: Walker Location: None Selected Primary Care Physician: Shirley Garcia MD [Primary Care Provider] - Please follow up with your Primary Care Physician in: 1-2 weeks Please Follow Up With: Baldomero Muniz DPM When: 03/27/2020 @ 8:45am @ [facility] Please Follow Up With: Shirley Garcia MD When: 1 to 2 week Disposition: Home Minutes spent on discharge:: 35 Patient Condition:: Stable Medical Necessity - Tobacco Use Smoking Status: Current every day smoker Tobacco Use: Cigarettes Meaningful Use Info Meaningful Use Diagnoses (Choose all that apply): None applicable <Steven Rahman - Last Filed: 03/24/20 14:00> Discharge Date and Diagnosis Date of Discharge: 03/24/20 - Secondary Discharge Diagnosis Chronic Problems: Chronic Problems Meniere disease (Chronic) Chronic ulcer of right foot with fat layer exposed (Chronic) Type 2 diabetes mellitus with diabetic polyneuropathy (Chronic) Hammer toe of right foot (Chronic) Obesity (BMI 30-39.9) (Chronic) Vertigo (Chronic) Hyperlipidemia (Chronic) Fibromyalgia (Chronic) Depression with anxiety (Chronic) Hospital Course and Treatment Consultations 03/21/20 18:27 Consult: Onc/Wound/glaze sprayer Routine Comment: Summary of Care Provided: The patient is a 49 year old F [] - Physical Exam Vitals/I&O's: Vital Signs Temp Pulse Resp BP Pulse Ox 97.1 F L 75 16 138/78 H 95 03/24/20 13:00 03/24/20 13:00 03/24/20 13:00 03/24/20 13:00 03/24/20 13:00 Oxygen Delivery Method Room Air Weight: 234 lb 14.405 oz Body Mass Index (BMI) 39.1 Finger Stick Blood Glucose 229 Intake and Output for Last 24 Hours 03/22/20 03/23/20 03/24/20 23:59 23:59 23:59 Intake Total 5270 / 5270 3675 / 3675 1770.00 / 1770.00 Output Total 1200 / 1200 850 / 850 Balance 4070 / 4070 2825 / 2825 1770.00 / 1770.00 Microbiology Past 72 Hours 03/22/20 12:33 Tissue - Right Foot Gram Stain - Final 03/22/20 12:33 Tissue - Right Foot Wound Culture - Preliminary Staphylococcus aureus Gram negative madeline Alpha Hemolytic Streptococcus 03/22/20 12:33 Tissue - Right Foot Anaerobic Culture - Preliminary Checking for anaerobes, further studies to follow. 03/22/20 12:34 Tissue - Right Foot Gram Stain - Final 03/22/20 12:34 Tissue - Right Foot Wound Culture - Preliminary No growth-Final to follow 03/22/20 12:34 Tissue - Right Foot Anaerobic Culture - Preliminary No growth in 48 hours. 03/21/20 16:15 Wound - Right Foot Gram Stain - Final 03/21/20 16:15 Wound - Right Foot Wound Culture - Final Staphylococcus aureus Enterobacter cloacae complex 03/21/20 15:30 Blood Culture (Wb) - Left Forearm Blood Culture - Preliminary No growth in 48 hours. 03/21/20 15:10 Blood Culture (Wb) - Left Hand Blood Culture - Preliminary No growth in 48 hours. Laboratory Results 03/23/20 15:54: POC Glucose 119 H 03/23/20 22:36: POC Glucose 162 H 03/24/20 05:38: WBC 8.4, RBC 3.88 L, Hgb 9.3 L, Hct 33.7 L, MCV 86.9, MCH 24.0 L, MCHC 27.6 L, RDW Std Deviation 53.9 H, RDW Coeff of Brea 17.1 H, Plt Count 256, MPV 9.5, Immature Gran % (Auto) 0.400, Neut % (Auto) 66.2, Lymph % (Auto) 21.4, Jack % (Auto) 7.9, Eos % (Auto) 3.3, Baso % (Auto) 0.8, Absolute Neuts (auto) 5.6, Absolute Lymphs (auto) 1.80, Nucleated RBC % 0 03/24/20 06:44: POC Glucose 79 03/24/20 12:25: POC Glucose 168 H Addendum: Dr. Rahman I personally examined the patient and reviewed the chart. I agree with the above. 49-year-old female with a history of diabetes presents with right second toe cellulitis and osteomyelitis on MRI. She underwent operative debridement and amputation of her toe which was sent for culture. Blood cultures are negative however superficial wound cultures demonstrating staph aureus and gram-negative rods, with a negative MRSA PCR. Can discontinue vancomycin continue with dose of Zosyn for now. She is doing well postoperatively. Appreciate both podiatry and ID input. Because the amputation she will likely need a short course of oral antibiotics. 03/24/2020: She is feeling better today, cultures have finalized with MSSA and she was evaluated by infectious disease who placed her on Levaquin 500 mg p.o. daily and Flagyl 500 mg p.o. 3 times daily. She is been having yeast infection as well so she was also sent home with Diflucan 200 mg x 1 to be taken after she completes her antibiotics. She is also set up with outpatient follow-up with her PCP and will follow-up with podiatry as an outpatient. The discharge plan was discussed with her and she expressed understanding the risks and benefits of going home today. Inpatient E&M: [id number] Disch Hosp
--- NOTE | 2020-03-24 14:51 | PN.ID_ITS ---
Subjective: Feeling better, d/c home today, no fever - Physical Exam Vitals/I&O's: Vital Signs Temp Pulse Resp BP Pulse Ox 97.1 F L 75 16 138/78 H 95 03/24/20 13:00 03/24/20 13:00 03/24/20 13:00 03/24/20 13:00 03/24/20 13:00 Oxygen Delivery Method Room Air Weight: 106.549 kg Body Mass Index (BMI) 39.1 Finger Stick Blood Glucose 229 Intake and Output for Last 24 Hours 03/22/20 03/23/20 03/24/20 23:59 23:59 23:59 Intake Total 5270 / 5270 3675 / 3675 1770.00 / 1770.00 Output Total 1200 / 1200 850 / 850 Balance 4070 / 4070 2825 / 2825 1770.00 / 1770.00 General: Alert, Cooperative, No apparent distress Lungs: Clear to auscultation, Normal air movement Cardiovascular: Regular rate, Regular Rhythm Abdomen: Soft, Non Tender, Non-Distended Skin: No rashes Microbiology Past 72 Hours 03/22/20 12:33 Tissue - Right Foot Gram Stain - Final 03/22/20 12:33 Tissue - Right Foot Wound Culture - Preliminary Staphylococcus aureus Gram negative madeline Alpha Hemolytic Streptococcus 03/22/20 12:33 Tissue - Right Foot Anaerobic Culture - Preliminary Checking for anaerobes, further studies to follow. 03/22/20 12:34 Tissue - Right Foot Gram Stain - Final 03/22/20 12:34 Tissue - Right Foot Wound Culture - Preliminary No growth-Final to follow 03/22/20 12:34 Tissue - Right Foot Anaerobic Culture - Preliminary No growth in 48 hours. 03/21/20 16:15 Wound - Right Foot Gram Stain - Final 03/21/20 16:15 Wound - Right Foot Wound Culture - Final Staphylococcus aureus Enterobacter cloacae complex 03/21/20 15:30 Blood Culture (Wb) - Left Forearm Blood Culture - Preliminary No growth in 48 hours. 03/21/20 15:10 Blood Culture (Wb) - Left Hand Blood Culture - Preliminary No growth in 48 hours. Laboratory Results 03/23/20 15:54: POC Glucose 119 H 03/23/20 22:36: POC Glucose 162 H 03/24/20 05:38: WBC 8.4, RBC 3.88 L, Hgb 9.3 L, Hct 33.7 L, MCV 86.9, MCH 24.0 L , MCHC 27.6 L, RDW Std Deviation 53.9 H, RDW Coeff of Brea 17.1 H, Plt Count 256, MPV 9.5, Immature Gran % (Auto) 0.400, Neut % (Auto) 66.2, Lymph % (Auto) 21.4, Dolores % (Auto) 7.9, Eos % (Auto) 3.3, Baso % (Auto) 0.8, Absolute Neuts (auto) 5.6, Absolute Lymphs (auto) 1.80, Nucleated RBC % 0 03/24/20 06:44: POC Glucose 79 03/24/20 12:25: POC Glucose 168 H Medical Necessity - Tobacco Use Smoking Status: Current every day smoker Tobacco Use: Cigarettes Route of nutrition/ use of supplements: [] Nutritional Intake: [] IV Site: [] Carrillo Catheter: [] - Assessment/Plan Antibiotics: [] Assessment/Plan: [] Active and Suspected Problems Osteomyelitis of toe of right foot (Suspected) Osteomyelitis of toe of right foot (Acute) R 2nd toe osteo with DM neuropathy - wound cx with MSSA, enterobacter. Wound pcr with mssa. Taken to OR 03/22/[address] Muniz for amputation. Surg cx with staph, GNR, and strep like. Clearance cx pending, neg so far. Ok for d/c home with 5 more days of levaquin and flagyl. If margins are clear, plan will be for short course of po abx at discharge. A1c was 9.9. Will follow as needed, d/w primary team
--- NOTE | 2020-03-27 14:50 | CASEMGMT ---
CHUCK JACK Discharge Follow-up Phone Call: ROSALBA: Colt Strata: 3 Call Date: 02/25/2020 Discharge Date: 02/22/2020 Time of Call: 1450 Duration: 4 minutes Admitting Diagnosis: Right 2nd toe cellulitis with suspected osteomyelitis CHUCK JACK completed follow-up phone call after recent hospitalization. Patient states that she is doing well. Patient had no questions regarding discharge instructions. Patient has follow-up appts scheduled. Patient had no further questions at this time.
== END 2020-03-24 13:18 | disposition home or self-care (01) | DRG 314 ==
LOC: ED 16:46 → MS3 17:55
PROVIDERS: Nurse Practitioner Family; Physician Assistant; Podiatrist; Admitting Provider Internal Medicine; Emergency Provider Emergency Medicine; PCP Internal Medicine; Visit Provider Family Medicine
PROC: 0Y6R0Z0 Detachment at Right 2nd Toe, Complete, Open Approach (ICD-10-PCS; principal; 2020-03-22 11:45)
DX: E11.69 Type 2 diabetes mellitus with other specified complication (principal); M86.8X7 Other osteomyelitis, ankle and foot; B95.61 Methicillin susceptible Staphylococcus aureus infection as the cause of diseases classified elsewhere; B96.89 Other specified bacterial agents as the cause of diseases classified elsewhere; E11.42 Type 2 diabetes mellitus with diabetic polyneuropathy; E11.621 Type 2 diabetes mellitus with foot ulcer; F41.8 Other specified anxiety disorders; M79.7 Fibromyalgia; E78.5 Hyperlipidemia, unspecified; E66.9 Obesity, unspecified; F17.210 Nicotine dependence, cigarettes, uncomplicated; I10 Essential (primary) hypertension; Z68.41 Body mass index [BMI] 40.0-44.9, adult; E03.9 Hypothyroidism, unspecified; E11.649 Type 2 diabetes mellitus with hypoglycemia without coma; E87.6 Hypokalemia; L03.031 Cellulitis of right toe; L97.514 Non-pressure chronic ulcer of other part of right foot with necrosis of bone; D50.9 Iron deficiency anemia, unspecified; E11.65 Type 2 diabetes mellitus with hyperglycemia; B37.3 Candidiasis of vulva and vagina
CPT/HCPCS: 36415; 73630; 73718; 80048; 80053; 80202; 82728; 82746; 82962; 83036; 83540; 83550; 83605; 85025; 85027; 85610; 85652; 85730; 86140; 87015; 87040; 87070; 87075; 87077; 87102; 87116; 87186; 87205; 87206; 87635; 87640; 88304; 88305; 88311; 93005; 93923; 99284; G2023; J1756; J7030; J7040; J7050; J7120; A4216; J2405; U0003

== ENCOUNTER 2020-07-24 19:50 | Emergency (ER) | payer MEDICARE, MEDICAID, SELFPAY ==
[2020-03-22 10:32] VITALS: BMI 39.1
[2020-07-24 19:51] VITALS: BP 163/83; PULSE 92; RESP 18; TEMP 36.2; O2SAT 99; BMI 41.1
--- NOTE | 2020-07-24 20:55 | RAD_ITS ---
STUDY: X-RAY - LEFT FOOT CLINICAL: Female, 49 years old. WOUND TO GREAT TOE x2-3 DAYS, REDNESS AND SWELLING TECHNIQUE: 3 view(s) of the foot. COMPARISON: None. FINDINGS: Normal talus, calcaneus, and tarsal bones. Mild hindfoot osteoarthritis. Normal metatarsi. Normal metatarsophalangeal joint of the great toe. Normal tibial and fibular sesamoid bones. Normal interphalangeal joint of the great toe. Normal phalanges of the great toe. Normal second through fifth metatarsophalangeal joints. Normal interphalangeal joints and phalanges of the lesser toes. Great toe soft tissue swelling. RAD/Foot min 3 Views IMPRESSION: No evidence of osteomyelitis. If there is further concern for osteomyelitis, consider correlation with three-phase bone scan or contrast-enhanced MRI. Electronically Signed: Ryan Kinney MD at 21:29 EDT Tel , Service support ,
--- NOTE | 2020-07-24 21:15 | ED.VIS.GEN ---
History of Present Illness Chief Complaint: Wound Informant: Patient Onset: Days - 2 Context: Gradual Onset Timing: Continuous Quality: sore Location: left foot/toes Current Severity: Mild Maximum Severity: Moderate Worsened by: weight-bearing, palpation Relieved by: leaving alone Associated Symptoms: redness in toes. malaised. no fevers/chills, no discharge. Narrative: Patient is a diabetic with peripheral neuropathy and had a wound on her right third toe, she saw her coloring room worker and they had her do some type of dressings and treatments to it, and that is improving but over the weekend past couple days she noticed that she is now getting wounds/redness that is painful on her other foot that were not there before. She is currently not on any antibiotic and was not recently prescribed 1. She denies any systemic symptoms other than feeling fatigued. Patient presents during the national coronavirus emergency declaration/pandemic. She denies any known contact with anyone infected with COVID-19. She denies traveling out of the immediate area recently. - Past Medical History (1) Osteomyelitis of toe of right foot Status: Resolved (2) Depression with anxiety Status: Chronic (3) Fibromyalgia Status: Chronic (4) Hammer toe of right foot Status: Chronic (5) Hyperlipidemia Status: Chronic (6) Meniere disease Status: Chronic (7) Type 2 diabetes mellitus with diabetic polyneuropathy Status: Chronic Past Medical History - Allergies and Home Meds Allergies/Adverse Reactions: Allergies clindamycin Allergy (Verified 07/24/20 19:53) Hives erythromycin base [From E-Mycin] Allergy (Verified 07/24/20 19:53) Hives Primary Care Physician: Shirley Garcia MD [Primary Care Provider] - Surgical History: appendectomy, - - T+A, BLTL, appendectomy, right great toe amputation. Right second toe partial amputation. Smoking Status: Current every day smoker - Family History Paternal Family History: Reports: Asthma, - - Denies known paternal medical history including cardiac history. Maternal Family History: Reports: - - Thyroid disease. Review of Systems General: Reports: Malaise. Denies: Chills, Fever, Sweats Eyes: Denies: Visual changes - bilaterally, Diplopia ENT: Denies: Rhinorrhea, Sore throat Cardiovascular: Denies: Chest pain, Palpitations Respiratory: Denies: Dyspnea, Cough, Dyspnea on exertion Gastrointestinal: Denies: Abdominal pain, Nausea, Vomiting, Diarrhea, Melena, Hematochezia Genitourinary: Denies: Dysuria, Hematuria, Frequency Musculoskeletal: Reports: Extremity Pain. Denies: Back pain Skin: Reports: Rash, Wounds Neurological: Reports: Parasthesia - Chronic both feet, unchanged. Denies: Headache, Weakness Physical Exam Vital Signs/Narrative: Vital Signs Temp Pulse Resp BP Pulse Ox 07/24/20 19:51 97.1 F L 92 18 163/83 H 99 Inital Vital Signs reviewed: Yes General: Well nourished, Well developed, Obese, No Acute Distress - Well-appearing no distress Head: Normocephalic, Atraumatic ENT: Moist mucous membranes, No rhinorrhea Neck: Supple, Nontender Extremities: Tenderness - Left toes 1-2, and forefoot just proximal to this. Redness is limited to the toes, and the forefoot where she is tender also is normal-appearing dorsally and at the plantar aspect without fluctuance/abscess or lymphangitis. Skin: No Trauma, Rash - Erythema to first 2 toes on the left foot, tibial aspect of both of them, without an obvious wound/etiology. There is a chronic callus on the bottom of the great toe that is not infected. Erythema does not progress proximally. Neurological: Alert, Oriented x3, Cranial nerves II-XII grossly intact, Normal Strength, Parasthesia - Both feet distally Psychological: Normal affect, Normal Mood Diagnostic/Tx/Re-eval Clinical Impression(s) from Imaging Studies Foot X-Ray 07/24/20 20:55 IMPRESSION: No evidence of osteomyelitis. If there is further concern for osteomyelitis, consider correlation with three-phase bone scan or contrast-enhanced MRI. Electronically Signed: Ryan Kinney MD at 21:29 EDT Tel , Service support , - Medical Decision Making Patient states she watches her food carefully, and she knows that this just started within the last 2 days. In order to ensure this is the case, I obtained x-rays, they do not show any radiographic signs of osteomyelitis. At this time I think it would be reasonable to start her on systemic antibiotics. She has a history of MRSA, and although this does not specifically look like MRSA, I think it would be reasonable to cover her for that in addition to regular strep and other more common causes of cellulitis. Advised to follow-up closely with her coloring room worker. Discussed all this with her, and she is comfortable with this overall plan. Prescribed Keflex and Bactrim, started on it now. ED Disposition - Plan for ED Patient: Disposition: Home or Assisted Living Diagnosis: Cellulitis of left toe, Type 2 diabetes mellitus with diabetic polyneuropathy Instructions: ED Cellulitis Prescriptions: Sulfamethoxazole/Trimethoprim [Bactrim Ds Tablet] 1 ea PO BID #20 tab Prescription Printed Cephalexin [Keflex] 500 mg PO Q6 #40 cap Prescription Printed Referrals: Marge Martin DPM [STAFF PHYSICIAN] - 5-7 Days
[2020-07-24] MEDS: Smz/Tmp Ds Tablet 1 TABLET PO (21:31)
[2020-07-24] MEDS: Cephalexin 250 MG Capsule 500 MG PO (21:31)
[2020-07-24 21:40] LABS: Bedside Glucose 269 mg/dL (70-110)
[2020-07-24 22:40] VITALS: BP 157/78; PULSE 73; RESP 18; O2SAT 98
== END 2020-07-24 22:42 | disposition home or self-care (01) ==
PROVIDERS: Emergency Provider Emergency Medicine; PCP Internal Medicine
DX: L03.032 Cellulitis of left toe (principal); E11.42 Type 2 diabetes mellitus with diabetic polyneuropathy; E78.5 Hyperlipidemia, unspecified; M79.7 Fibromyalgia; F32.9 Major depressive disorder, single episode, unspecified; F41.9 Anxiety disorder, unspecified; H81.09 Meniere's disease, unspecified ear; M20.41 Other hammer toe(s) (acquired), right foot; Z88.1 Allergy status to other antibiotic agents; F17.200 Nicotine dependence, unspecified, uncomplicated; Z86.14 Personal history of Methicillin resistant Staphylococcus aureus infection
CPT/HCPCS: 73630; 82962; 99281

== ENCOUNTER → 2020-10-10 18:23 | Outpatient (CLI) | payer MEDICARE, MEDICAID, SELFPAY | PROVIDERS: PCP Internal Medicine; Referring Provider Podiatrist Foot & Ankle Surgery; Visit Provider Podiatrist Foot & Ankle Surgery | DX: L03.032 Cellulitis of left toe (principal) | CPT/HCPCS: 87070; 87205 ==

== ENCOUNTER 2020-10-24 10:30 | Outpatient (RCR) | payer MEDICARE, MEDICAID, SELFPAY ==
[2020-10-17 09:24] VITALS: BP 146/79; PULSE 96; RESP 18; TEMP 36.3; BMI 39.9
--- NOTE | 2020-10-17 11:35 | PCM.WC.PN ---
(1) Skin ulcer of left great toe with fat layer exposed Status: Acute Code(s): L97.522 - Non-pressure chronic ulcer of other part of left foot with fat layer exposed (2) Fibromyalgia Status: Chronic (3) Obesity (BMI 30-39.9) Status: Chronic Code(s): E66.9 - Obesity, unspecified (4) Type 2 diabetes mellitus with diabetic polyneuropathy Status: Chronic Code(s): E11.42 - Type 2 diabetes mellitus with diabetic polyneuropathy Type of Wound Date of Service: 10/17/20 Chief Complaint: left plantar hallux ulcer History of Wound: Patient is a 49 year old female who presents with plantar left hallux ulceration. She was previously seen in my office for management of this wound. At that time she also had cellulitis which was cultured showing coag negative staph with antibiotics on 10/10/20. Patient has been offloading with offloaded surgical shoe. Patient has been struggling with buildup of callus to ulcer site. 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 Patient to continue treatment at the wound care center Progress of Wound: improved, redness and purulent drainage resolved Subjective: Patient seen and examined bedside. Patient denies any new pedal complaints. Patient denies nausea, fever, vomiting, chills, chest pain, shortness of breath, streaking, purulence - Physical Exam Vital Signs Temp Pulse Resp BP 97.4 F L 96 18 146/79 H 10/17/20 09:24 10/17/20 09:24 10/17/20 09:24 10/17/20 09:24 General: Alert, Oriented x3 Abdomen: Obese Extremities: No clubbing, No cyanosis, No edema, Capillary Refill Less than 3 Seconds, No Calf Tenderness, Peripheral Pulses Normal Skin: Ulcer/ Wound - left plantar hallux ulceration. No malodor, erythema, purulence, probing to bone, streaking, or other signs of infection. Skin is atrophic and hairless. Granular base with serosanguineous drainage after debridement, periwound callus noted which is less than last visit Wound Measurements and Assessment WC - Nurse 1 - General Ulcer Measurement Start: 10/17/20 09:05 Freq: Status: Active Protocol: Activity Type Activity Date Activity User E-Sign Co-Sign Detail Recorded Client Recorded Date Recorded By Document 10/17/20 09:24 MW [id number] 10/17/20 09:37 MW 10/17/20 09:24 Wound Center Nurse 1 [Ulcer Assessment] #1 left great toe plantar -Combined with other wound No -Current Size (cm) - Length 0.3 -Current Size (cm) - Width 0.2 -Current Size (cm) - Depth 0.3 -Total Square Cm 0.06 -Date of Last Picture (Recall this 10/17/20 field) -Photo Taken Yes -Epithelialization None Present -Tunneling No -Undermining/Tunneling No -Circular Undermining Yes -Exudate Amt Medium -Wound Margin Flat & Intact -Granulation Amt None Present (0 %) -Granulation Quality N/A -Slough/Fibrin Yes -Necrosis Amt Large (67-100%) -Necrotic Tissue Type Adherent Slough -Structure Exposed N/A -Texture (Sherin-wound Skin Appearance) Assessed,Callus -Moisture (Sherin-wound Skin Appearance Assessed,Dry/ ) Scaly -Color (Sherin-wound Skin Appearance) No Abnormality, Assessed -Temperature (Sherin-wound Skin No Abnormality Appearance) (Pt Warm) -Tenderness on Palpation (Sherin-wound No Skin Appearance) -Ulcer Cleansing Rinsed/ Irrigated with Saline -Foul Odor after Cleansing No -Anesthetic Used 4% Lidocaine Solution [Edema Assessment] -Lower Limb Edema Present No WC - Nurse 2 - General Ulcer CM Notes Start: 10/17/20 09:05 Freq: Status: Active Protocol: Activity Type Activity Date Activity User E-Sign Co-Sign Detail Recorded Client Recorded Date Recorded By Document 10/17/20 10:09 [id number] 10/17/20 10:10 10/17/20 10:09 Wound Center Nurse 2 [Procedure/Treatment] #1 left great toe plantar -Time 10:09 -Correct Patient Yes -Correct Side, Site, Position Yes -Correct Procedure Yes -Procedure Performed Yes -Type of Procedure Debridement -Clinical Debridement Subcutaneous -Tissue Removed Subcutaneous -Post Debridement (cm) - Length 0.6 -Post Debridement (cm) - Width 0.4 -Post Debridement (cm) - Depth 0.3 -Total Square (Post) (cm) 0.24 -Area of Debridement (cm) - Length 0.6 -Area of Debridement (cm) - Width 0.4 -Total Square (Area) (cm) 0.24 -Tunneling No -Undermining/Tunneling No -Circular Undermining No -Wound/Ulcer Outcome Not Healed -Ulcer Cleansing Rinsed/ Irrigated with Saline -Foul Odor after Cleansing No -Bioengineered Tissue No -Bleeding Controlled with Pressure -Offloading No -Type of Offloading Surgical Shoe -Treatment Response Procedure Tolerated Well -Debridement - Subq, 1st 20sq cm Yes [See Physician Procedure note for Specifics] Musculoskeletal: No Tenderness to Palpation of Joints or Extremities, - - right 1,2 toe amputation Neurological: - - decreased epicritic sensation Psych/Mental Status: Normal Affect, Appropriate Debridement Note Post-Debridement Measurements/Treatment WC - Nurse 2 - General Ulcer CM Notes Start: 10/17/20 09:05 Freq: Status: Active Protocol: Activity Type Activity Date Activity User E-Sign Co-Sign Detail Recorded Client Recorded Date Recorded By Document 10/17/20 10:09 [email or web address] [id number] 10/17/20 10:10 [email or web address] 10/17/20 10:09 Wound Center Nurse 2 #1 left great toe plantar -Time 10:09 -Correct Patient Yes -Correct Side, Site, Position Yes -Correct Procedure Yes -Procedure Performed Yes -Type of Procedure Debridement -Clinical Debridement Subcutaneous -Tissue Removed Subcutaneous -Post Debridement (cm) - Length 0.6 -Post Debridement (cm) - Width 0.4 -Post Debridement (cm) - Depth 0.3 -Total Square (Post) (cm) 0.24 -Area of Debridement (cm) - Length 0.6 -Area of Debridement (cm) - Width 0.4 -Total Square (Area) (cm) 0.24 -Tunneling No -Undermining/Tunneling No -Circular Undermining No -Wound/Ulcer Outcome Not Healed -Ulcer Cleansing Rinsed/ Irrigated with Saline -Foul Odor after Cleansing No -Bioengineered Tissue No -Bleeding Controlled with Pressure -Offloading No -Type of Offloading Surgical Shoe -Treatment Response Procedure Tolerated Well -Debridement - Subq, 1st 20sq cm Yes Wound debrided: plantar hallux Laterality: Left Wound Grade/Stage: torres 2 Type of Debridement: Excisional debridement Anesthesia Used: 4% Lidocaine Solution Depth: in the subcutaneous layer Percentage of wound debrided: 100 Instrument Used: #15 blade Tissue Removed: Tissue removed includes fibrous, devitalized, biofilm, and slough tissue Severity: Fat Layer Exposed Amount of bleeding with debridement: Mild Bleeding Controlled with: Pressure Patient tolerated procedure well Assessment/Plan Active Problems Skin ulcer of left great toe with fat layer exposed (Acute) Type 2 diabetes mellitus with diabetic polyneuropathy (Chronic) Obesity (BMI 30-39.9) (Chronic) Fibromyalgia (Chronic) Assessment: left plantar hallux ulceration torres 2. diabetes with neuropathy. toe 1 and 2 amutation right foot Plan: Patient seen and examined. After verbal consent was obtained sharp excisional debridement was carried out which was well tolerated. Patient to finish out course of antibiotics. Infection has resolved. Continue wound care. Continue offloading with offloaded surgical shoe. Discussed proper blood sugar control, diet, wound care, and offloading to better allow healing. Discussed signs of infection to watch out for and to contact if any concerns arise. All questions answered. Follow up 1 week
--- NOTE | 2020-10-23 09:34 | VDLE_ITS ---
Reason For Study: EDEMA RIGHT LEFT CFV is compressible, spontaneous, phasic, CFV is compressible, spontaneous, phasic, competent and demonstrates normal competent, and demonstrates normal augmentation. augmentation. FV is compressible, spontaneous, phasic, FV is compressible, spontaneous, phasic, competent and demonstrates normal competent and demonstrates normal augmentation. augmentation. POP V is compressible, spontaneous, phasic, POP V is compressible, spontaneous, phasic, competent and demonstrates normal competent and demonstrates normal augmentation. augmentation. T/P Trunk is compressible. T/P Trunk is compressible. PTV is compressible. PTV is compressible. RT PerV is compressible. LT PerV is compressible. SFJ is competent and measures 0.67 X 0.94 cm. SFJ is competent and measures 0.83 X 0.67 cm. GSV proximal thigh measures 0.43 X 0.41 cm. GSV proximal thigh measures 0.41 X 0.44 cm. GSV at knee measures 0.32 X 0.37 cm. GSV at knee measures 0.46 X 0.52 cm. GSV is competent throughout. GSV is competent throughout. SSV proximal calf is competent and measures SSV proximal calf is competent and measures 0.33 X 0.42 cm. 0.36 X 0.38 cm. Procedure This is a venous duplex using B-mode, color flow and spectral Doppler. Exam performed in department. Patient was scanned in reverse Trendelenburg position during reflux assessment. The exam was diagnostic. A preliminary report was called and/or faxed to Wound Center. Interpretation Summary Deep veins of the lower extremities are bilaterally patent and compressible segmentally. There is no evidence of deep vein thrombosis on either side. Valvular competence appears intact within the proximal deep venous systems bilaterally. The great saphenous veins appear bilaterally patent and compressible segmentally. Sapheno-femoral junctions are bilaterally competent . Valvular competence appears to be intact segmentally within the great saphenous veins bilaterally. Small saphenous veins are patent and competent bilaterally. Ordering Physician: Haylee Guillen Referring Physician: Baldomero Muniz Performed By: Tova Salazar RDCS, RVT
[2020-10-24 11:09] VITALS: BP 155/90; PULSE 83; RESP 16; TEMP 36.2; BMI 39.9
--- NOTE | 2020-10-24 12:07 | PN.PCM_ITS ---
(1) Skin ulcer of left great toe with fat layer exposed Status: Acute Code(s): L97.522 - Non-pressure chronic ulcer of other part of left foot with fat layer exposed (2) Fibromyalgia Status: Chronic (3) Obesity (BMI 30-39.9) Status: Chronic Code(s): E66.9 - Obesity, unspecified (4) Type 2 diabetes mellitus with diabetic polyneuropathy Status: Chronic Code(s): E11.42 - Type 2 diabetes mellitus with diabetic polyneuropathy Type of Wound Date of Service: 10/24/20 Chief Complaint: left plantar hallux ulcer History of Wound: Patient is a 49 year old female who presents with plantar left hallux ulceration. She was previously seen in my office for management of this wound. At that time she also had cellulitis which was cultured showing coag negative staph with antibiotics on 10/10/20. Patient has been offloading with offloaded surgical shoe. Patient has been struggling with buildup of callus to ulcer site. 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 Patient noted to have completed antibiotics. She has noticed some discoloration to the wound site. Progress of Wound: improved Subjective: Patient seen and examined bedside. Patient denies any new pedal complaints. Patient denies any nausea, fever, chills, chest pain, shortness of breath, cough, streaking, purulence, vomiting. - Physical Exam Vital Signs Temp Pulse Resp BP 97.2 F L 83 16 155/90 H 10/24/20 11:09 10/24/20 11:09 10/24/20 11:09 10/24/20 11:09 General: Alert, Oriented x3 HEENT: Atraumatic Abdomen: Obese Extremities: No clubbing, No cyanosis, No edema, Capillary Refill Less than 3 Seconds, No Calf Tenderness, Peripheral Pulses Normal Skin: Ulcer/ Wound - Left plantar hallux ulceration. No malodor, erythema, purulence, probing to bone, streaking, or other signs of infection. Surrounding callus with dried blood discoloration noted. Skin island noted. Granular base with serosanguineous drainage after debridement Wound Measurements and Assessment WC - Nurse 1 - General Ulcer Measurement Start: 10/17/20 09:05 Freq: Status: Active Protocol: Activity Type Activity Date Activity User E-Sign Co-Sign Detail Recorded Client Recorded Date Recorded By Document 10/24/20 11:09 [id number] 10/24/20 11:19 MW 10/24/20 11:09 Wound Center Nurse 1 [Ulcer Assessment] #1 left great toe plantar -Combined with other wound No -Current Size (cm) - Length 1.4 -Current Size (cm) - Width 0.8 -Current Size (cm) - Depth 0.1 -Total Square Cm 1.12 -Photo Taken No -Epithelialization None Present -Tunneling No -Undermining/Tunneling No -Circular Undermining No -Exudate Amt Small -Exudate Type Serosanguineous -Wound Margin Flat & Intact -Granulation Amt None Present (0 %) -Granulation Quality N/A -Slough/Fibrin Yes -Necrosis Amt Large (67-100%) -Necrotic Tissue Type Adherent Slough -Structure Exposed N/A -Texture (Sherin-wound Skin Appearance) Assessed,Callus -Moisture (Sherin-wound Skin Appearance No Abnormality, ) Assessed -Color (Sherin-wound Skin Appearance) No Abnormality, Assessed -Temperature (Sherin-wound Skin No Abnormality Appearance) (Pt Warm) -Tenderness on Palpation (Sherin-wound No Skin Appearance) -Ulcer Cleansing Rinsed/ Irrigated with Saline -Foul Odor after Cleansing No -Anesthetic Used 4% Lidocaine Solution [Edema Assessment] -Lower Limb Edema Present No WC - Nurse 2 - General Ulcer CM Notes Start: 10/17/20 09:05 Freq: Status: Active Protocol: Activity Type Activity Date Activity User E-Sign Co-Sign Detail Recorded Client Recorded Date Recorded By Document 10/24/20 11:39 [id number] 10/24/20 11:42 10/24/20 11:39 Wound Center Nurse 2 [Procedure/Treatment] #1 left great toe plantar -Time 11:39 -Correct Patient Yes -Correct Side, Site, Position Yes -Correct Procedure Yes -Procedure Performed Yes -Type of Procedure Debridement -Clinical Debridement Subcutaneous -Tissue Removed Subcutaneous -Post Debridement (cm) - Length 1 -Post Debridement (cm) - Width 0.5 -Post Debridement (cm) - Depth 0.1 -Total Square (Post) (cm) 0.5 -Area of Debridement (cm) - Length 1.0 -Area of Debridement (cm) - Width 0.5 -Total Square (Area) (cm) 0.50 -Tunneling No -Undermining/Tunneling No -Circular Undermining No -Wound/Ulcer Outcome Not Healed -Ulcer Cleansing Rinsed/ Irrigated with Saline -Foul Odor after Cleansing No -Bioengineered Tissue No -Bleeding Controlled with Pressure -Offloading Yes -Type of Offloading Surgical Shoe -Treatment Response Procedure Tolerated Well -Debridement - Subq, 1st 20sq cm Yes [See Physician Procedure note for Specifics] Pain Scale: 0-10 Numeric [Pain] -Is Patient Pain Free? Yes - Nurse 3 - General Ulcer D/C NN Start: 10/17/20 09:05 Freq: Status: Active Protocol: Activity Type Activity Date Activity User E-Sign Co-Sign Detail Recorded Client Recorded Date Recorded By Document 10/24/20 11:58 DL [id number] 10/24/20 11:59 DL 10/24/20 11:58 Wound Care Nurse 3 [Wound Dressing] #1 left great toe plantar -Ulcer Cleansing Rinsed/ Irrigated with Saline -Foul Odor after Cleansing No -Other Dressing hydrogel today -Primary Dressing Covered/Secured Dry Gauze, with Secured with Tape [Post Procedure Tolerated] -Treatment Response Procedure Tolerated Well Pain Scale: 0-10 Numeric [Pain] -Is Patient Pain Free? Yes - Visit Discharge [Visit Discharge Information] -Discharge Condition Stable -Ambulatory Status Ambulatory -Accompanied by walked Musculoskeletal: No Tenderness to Palpation of Joints or Extremities Neurological: - - decreased epicritic sensation Psych/Mental Status: Normal Affect, Appropriate, Alert and oriented to time, santo ce, person, mood and affect Debridement Note Post-Debridement Measurements/Treatment - Nurse 2 - General Ulcer CM Notes Start: 10/17/20 09:05 Freq: Status: Active Protocol: Activity Type Activity Date Activity User E-Sign Co-Sign Detail Recorded Client Recorded Date Recorded By Document 10/17/20 10:09 [id number] 10/17/20 10:10 Document 10/24/20 11:39 [id number] 10/24/20 11:42 10/17/20 10/24/20 10:09 11:39 Wound Center Nurse 2 #1 left great toe plantar -Time 10:09 11:39 -Correct Patient Yes Yes -Correct Side, Site, Position Yes Yes -Correct Procedure Yes Yes -Procedure Performed Yes Yes -Type of Procedure Debridement Debridement -Clinical Debridement Subcutaneous Subcutaneous -Tissue Removed Subcutaneous Subcutaneous -Post Debridement (cm) - Length 0.6 1 -Post Debridement (cm) - Width 0.4 0.5 -Post Debridement (cm) - Depth 0.3 0.1 -Total Square (Post) (cm) 0.24 0.5 -Area of Debridement (cm) - Length 0.6 1.0 -Area of Debridement (cm) - Width 0.4 0.5 -Total Square (Area) (cm) 0.24 0.50 -Tunneling No No -Undermining/Tunneling No No -Circular Undermining No No -Wound/Ulcer Outcome Not Healed Not Healed -Ulcer Cleansing Rinsed/ Rinsed/ Irrigated with Irrigated with Saline Saline -Foul Odor after Cleansing No No -Bioengineered Tissue No No -Bleeding Controlled with Pressure Pressure -Offloading No Yes -Type of Offloading Surgical Shoe Surgical Shoe -Treatment Response Procedure Procedure Tolerated Well Tolerated Well -Debridement - Subq, 1st 20sq cm Yes Yes Pain Scale: 0-10 Numeric Is Patient Pain Free? Yes - Nurse 3 - General Ulcer D/C NN Start: 10/17/20 09:05 Freq: Status: Active Protocol: Activity Type Activity Date Activity User E-Sign Co-Sign Detail Recorded Client Recorded Date Recorded By Document 10/24/20 11:58 DL [id number] 10/24/20 11:59 DL 10/24/20 11:58 Wound Care Nurse 3 #1 left great toe plantar -Ulcer Cleansing Rinsed/ Irrigated with Saline -Foul Odor after Cleansing No -Other Dressing hydrogel today -Primary Dressing Covered/Secured with Dry Gauze, Secured with Tape Treatment Response Procedure Tolerated Well Pain Scale: 0-10 Numeric Is Patient Pain Free? Yes WC - Visit Discharge Discharge Condition Stable Ambulatory Status Ambulatory Accompanied by walked Wound debrided: plantar hallux Laterality: Left Wound Grade/Stage: torres 1 Type of Debridement: Excisional debridement Anesthesia Used: 4% Lidocaine Solution Depth: in the subcutaneous layer Percentage of wound debrided: 100 Instrument Used: #15 blade Tissue Removed: Tissue removed includes fibrous, devitalized, biofilm, and slough tissue Severity: Fat Layer Exposed Amount of bleeding with debridement: Mild Bleeding Controlled with: Pressure Patient tolerated procedure well Assessment/Plan Active Problems Skin ulcer of left great toe with fat layer exposed (Acute) Type 2 diabetes mellitus with diabetic polyneuropathy (Chronic) Obesity (BMI 30-39.9) (Chronic) Fibromyalgia (Chronic) Assessment: left plantar hallux ulceration torres 2. diabetes with neuropathy. toe 1 and 2 amutation right foot Plan: Patient seen and examined. Blood flow studies reviewed. Venous studies showed patent deep veins. Arterial studies showed Right OSVALDO 1.08 and TBI 0.99 and left OSVALDO 1.02 and TBI 1.07 with bilateral triphasic pulses noted. This should prove adequate to allow healing. After verbal consent was obtained sharp excisional debridement was carried out which was well tolerated. Patient finished course of antibiotics. Infection has resolved. Continue wound care. Continue offloading with offloaded surgical shoe. Discussed proper blood sugar control, diet, wound care, and offloading to better allow healing. Discussed signs of infection to watch out for and to contact if any concerns arise. Less depth noted to ulceration site. All questions answered. Follow up 1 week
== END 2020-10-29 23:59 ==
LOC: WC 10:30
PROVIDERS: PCP Internal Medicine; Referring Provider Podiatrist; Visit Provider Podiatrist Foot & Ankle Surgery
DX: E11.621 Type 2 diabetes mellitus with foot ulcer (principal); L97.522 Non-pressure chronic ulcer of other part of left foot with fat layer exposed; M79.7 Fibromyalgia; E11.42 Type 2 diabetes mellitus with diabetic polyneuropathy; E66.9 Obesity, unspecified; Z68.30 Body mass index [BMI] 30.0-30.9, adult; R60.0 Localized edema
CPT/HCPCS: 11042; 93923; 93970; 99213; G0463

== ENCOUNTER 2020-10-31 10:00 | Outpatient (RCR) | payer MEDICARE, MEDICAID, SELFPAY ==
[2020-10-31 09:58] VITALS: BP 151/83; PULSE 87; RESP 20; TEMP 36.4; BMI 39.9
--- NOTE | 2020-10-31 10:13 | PN.PCM_ITS ---
(1) Skin ulcer of left great toe with fat layer exposed Status: Acute Code(s): L97.522 - Non-pressure chronic ulcer of other part of left foot with fat layer exposed (2) Type 2 diabetes mellitus with diabetic polyneuropathy Status: Chronic Code(s): E11.42 - Type 2 diabetes mellitus with diabetic polyneuropathy Type of Wound Date of Service: 10/31/20 Chief Complaint: left plantar hallux ulcer History of Wound: Patient is a 49 year old female who presents with plantar left hallux ulceration. She was previously seen in my office for management of this wound. At that time she also had cellulitis which was cultured showing coag negative staph with antibiotics on 10/10/20. Patient has been offloading with offloaded surgical shoe. Patient has been struggling with buildup of callus to ulcer site. 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 Patient noted to have completed antibiotics. She has noticed some discoloration to the wound site. Patient has noticed some redness to yop of her toe which she thinks is rubbing on her shoe. Progress of Wound: Improved Subjective: Patient seen and examined bedside. Patient denies any new pedal complaints. Patient denies any nausea, fever, chills, chest pain, shortness of breath, cough, streaking, purulence, vomiting. Has also noticed some redness to the top of her left great toe. She is not sure what is coming from she has not noticed any drainage or any other issues. - Physical Exam Vital Signs Temp Pulse Resp BP 97.5 F L 87 20 H 151/83 H 10/31/20 09:58 10/31/20 09:58 10/31/20 09:58 10/31/20 09:58 General: Alert, Oriented x3 HEENT: Atraumatic Extremities: No clubbing, No cyanosis, No edema, Capillary Refill Less than 3 Seconds, No Calf Tenderness, Peripheral Pulses Normal, - - Mild erythema noted around nail to dorsal left hallux Skin: Ulcer/ Wound - Left plantar medial hallux ulceration. No malodor, erythema, purulence, probing to bone, streaking, or other signs of infection to periwound. Granular base with serosanguineous drainage after debridement. some callus buildup noted around ulceration with some dried blood in it. Wound Measurements and Assessment WC - Nurse 1 - General Ulcer Measurement Start: 10/31/20 09:58 Freq: Status: Active Protocol: Activity Type Activity Date Activity User E-Sign Co-Sign Detail Recorded Client Recorded Date Recorded By Document 10/31/20 09:58 DL [id number] 10/31/20 10:03 DL 10/31/20 09:58 Wound Center Nurse 1 [Ulcer Assessment] #1 left great toe plantar -Current Size (cm) - Length 0.1 -Current Size (cm) - Width 0.1 -Current Size (cm) - Depth 0.1 -Total Square Cm 0.01 -Photo Taken No -Exudate Amt None Present -Wound Margin Thickened -Granulation Amt Large (67-100%) -Granulation Quality Pale -Necrosis Amt None Present (0 %) -Structure Exposed N/A -Texture (Sherin-wound Skin Appearance) Callus,Scarring -Moisture (Sherin-wound Skin Appearance No Abnormality ) -Color (Sherin-wound Skin Appearance) No Abnormality -Temperature (Sherin-wound Skin No Abnormality Appearance) (Pt Warm) -Tenderness on Palpation (Sherin-wound No Skin Appearance) -Ulcer Cleansing Rinsed/ Irrigated with Saline -Foul Odor after Cleansing No -Anesthetic Used 4% Lidocaine Solution Musculoskeletal: No Tenderness to Palpation of Joints or Extremities, No Muscle Wasting Neurological: - - Lack of epicritic sensation consistent with neuropathy Psych/Mental Status: Normal Affect, Appropriate Debridement Note Wound debrided: Plantar medial hallux Laterality: Left Wound Grade/Stage: Bucio 1 Type of Debridement: Excisional debridement Anesthesia Used: 4% Lidocaine Solution Depth: in the subcutaneous layer Percentage of wound debrided: 100 Instrument Used: #15 blade Tissue Removed: Tissue removed includes fibrous, devitalized, biofilm, and sloug h tissue Severity: Fat Layer Exposed Amount of bleeding with debridement: Mild Bleeding Controlled with: Pressure Patient tolerated procedure well Assessment/Plan Assessment: left plantar hallux ulceration bucio 1. diabetes with neuropathy. toe 1 and 2 amutation right foot Plan: Patient seen and examined. Blood flow studies reviewed. Venous studies showed patent deep veins. Arterial studies showed Right OSVALDO 1.08 and TBI 0.99 and left OSVALDO 1.02 and TBI 1.07 with bilateral triphasic pulses noted. This should prove adequate to allow healing. After verbal consent was obtained sharp excisional debridement was carried out which was well tolerated. Patient finished course of antibiotics. Infection has resolved. Continue wound care. Continue offloading with offloaded surgical shoe. Discussed proper blood sugar control, diet, wound care, and offloading to better allow healing. Discussed signs of infection to watch out for and to contact if any concerns arise. Less depth and size noted to ulceration site. Patient concerned about redness to the top of her left hallux. Patient walked here from her house. Is most likely redness from rubbing on her shoe. The ulceration site itself does not appear to have any signs of infection. Patient is allowed to lotion across the foot but to avoid ulceration site. Continue Fibracol dressing changes daily. All questions answered. Follow up 1 week
== END 2020-11-26 23:59 ==
LOC: WC 10:00
PROVIDERS: PCP Internal Medicine; Visit Provider Podiatrist Foot & Ankle Surgery
DX: E11.621 Type 2 diabetes mellitus with foot ulcer (principal); L97.522 Non-pressure chronic ulcer of other part of left foot with fat layer exposed; E11.42 Type 2 diabetes mellitus with diabetic polyneuropathy; Z89.411 Acquired absence of right great toe; Z89.421 Acquired absence of other right toe(s)
CPT/HCPCS: 11042

== ENCOUNTER 2020-11-11 19:27 | Inpatient (IN) | payer MEDICARE, MEDICAID, SELFPAY ==
[2020-11-11 19:27] VITALS: BP 144/88; PULSE 114; RESP 20; TEMP 36; O2SAT 94; BMI 41.1
--- NOTE | 2020-11-11 20:07 | RAD_ITS ---
STUDY: X-RAY - LEFT FOOT CLINICAL: Female, 49 years old. PT C/O INCREASED PAIN AND INFECTION OF LEFT BIG TOE. TECHNIQUE: 3 view(s) of the foot. COMPARISON: 07/24/2020 FINDINGS: Normal talus, calcaneus, and tarsal bones. Normal visualized subtalar, talonavicular, calcaneocuboid, tarsal and tarsometatarsal articulations. Normal metatarsi. Normal metatarsophalangeal joint of the great toe. Normal tibial and fibular sesamoid bones. Normal interphalangeal joint of the great toe. Normal phalanges of the great toe. Normal second through fifth metatarsophalangeal joints. Normal interphalangeal joints and phalanges of the lesser toes. The soft tissue structures are unremarkable. RAD/Foot min 3 Views IMPRESSION: Normal x-ray examination of the foot. Electronically Signed: Zeferino Duong MD at 20:40 EST , Service support ,
[2020-11-11] MEDS: Ondansetron 4 MG/2 ML Vial IV (20:11)
[2020-11-11] MEDS: Morphine 4 MG/ML Syringe IV (20:11)
[2020-11-11 20:13] LABS: Absolute Lymphocyte Count 2.94 X10^3/uL (0.83-4.51); Absolute Neutrophil Count 7.1 X10^3/uL (2.0-7.7); Basophil# 0.04 X10^3/uL; Basophil% 0.4 % (0-1); Eosinophil# 0.27 X10^3/uL; Eosinophils% 2.5 % (0-5); Hematocrit 45.4 % (37-47); Hemoglobin 15.1 g/dL (12.0-15.0); Lymphocyte # 2.94 X10^3/ul (4.0); Lymphocyte % 26.7 % (19-41); Mean Corp Hgb Conc 33.3 g/dL (32-36); Mean Corpuscular Hgb 29.5 pg (27.0-32.0); Mean Corpuscular Volume 88.8 fL (81-99); Mean Platelet Vol. 10.3 fl (6.2-12.0); Monocyte# 0.66 X10^3/uL; NRBC Flagged by Analyzer 0 % (0-5); Neutrophil # 7.05 X10^3/uL (2.7-7.7); Platelet Count 251 K/mm3 (150-450); RBC Distribution Width CV 13.5 % (11.6-14.6); RBC Distribution Width SD 43.9 fl (35.1-43.9); Red Blood Count 5.11 M/mm3 (4.2-5.4)
[2020-11-11 20:27] LABS: Anion Gap 4 (5-15); BUN 12 mg/dL (7-18); BUN/Creat Ratio 14.4 RATIO (10-20); Calcium,Total 8.7 mg/dL (8.5-10.1); Chloride 102 mmol/L (98-107); Creatinine, Serum 0.83 mg/dL (0.55-1.02); EST Glomerular Filtration Rate 78 mL/min (>60); Est Glom Filt Rate - Afr Amer 94 mL/min (>60); Estimated Creatinine Clearance 74.59 ml/min; Glucose 355 mg/dL (74-106); Potassium 3.9 mmol/L (3.5-5.1); Sodium Level 133 mmol/L (136-145)
[2020-11-11 20:50] LABS: Lactic Acid 1.5 mmol/L (0.4-1.9)
--- NOTE | 2020-11-11 21:31 | ED.DCSUM_ITS ---
History of Present Illness Chief Complaint: Wound Informant: Patient Onset: - - Acute on chronic Current Severity: Moderate Maximum Severity: Moderate Narrative: Patient presents with worsening left toe infection. She has a chronic wound to her medial left great toe is been following in the wound center. She was last on antibiotics in September. Patient states the wound was healing nicely but today noted increased redness and swelling along with pain. She denies fever or chills. No drainage is been noted from the wound. - Past Medical History (1) Depression with anxiety Status: Chronic (2) Fibromyalgia Status: Chronic (3) Hyperlipidemia Status: Chronic (4) Meniere disease Status: Chronic (5) Type 2 diabetes mellitus with diabetic polyneuropathy Status: Chronic Past Medical History - Allergies and Home Meds Allergies/Adverse Reactions: Allergies clindamycin Allergy (Verified 11/11/20 19:37) Hives erythromycin base [From E-Mycin] Allergy (Verified 11/11/20 19:37) Hives Primary Care Physician: Shirley Garcia MD [Primary Care Provider] - Prior records reviewed: Yes Surgical History: appendectomy, - - T+A, BLTL, appendectomy, right great toe amputation. Right second toe partial amputation. Lives: With Family Smoking Status: Current every day smoker - Family History Paternal Family History: Reports: Asthma, - - Denies known paternal medical history including cardiac history. Maternal Family History: Reports: - - Thyroid disease. Review of Systems General: Denies: Chills, Fever Eyes: Denies: Visual changes - bilaterally ENT: Denies: Bilateral ear pain Cardiovascular: Denies: Chest pain Respiratory: Denies: Dyspnea, Cough Gastrointestinal: Denies: Abdominal pain Skin: Reports: Wounds Hematologic: Denies: Easy bruising, Easy bleeding Allergy: Denies: Uticaria Physical Exam Vital Signs/Narrative: Vital Signs Temp Pulse Resp BP Pulse Ox 11/11/20 19:27 96.8 F L 114 H 20 H 144/88 H 94 Inital Vital Signs reviewed: Yes General: Well nourished, Well developed Head: Normocephalic ENT: Moist mucous membranes Neck: Supple Cardiovascular: Regular rate, Regular rhythm Respiratory: No distress, CTA bilaterally Abdomen: Soft, Nontender Extremities: - - Callused ulceration to the medial left great toe. Mild erythema to the toe. No lymphangitic streaking noted. No drainage from the wound. Neurological: Alert, Oriented x3 Psychological: Normal affect Diagnostic/Tx/Re-eval Impressions Foot X-Ray 11/11/20 20:07 IMPRESSION: Normal x-ray examination of the foot. Electronically Signed: Zeferino Duong MD at 20:40 EST , Service support , 11/11/20 20:07 Foot min 3 Views [RAD] Stat Laboratory Results 11/11/20 11/11/20 11/11/20 19:55 19:55 19:55 WBC 11.0 RBC 5.11 Hgb 15.1 H Hct 45.4 MCV 88.8 MCH 29.5 MCHC 33.3 RDW Std Deviation 43.9 RDW Coeff of Brea 13.5 Plt Count 251 MPV 10.3 Immature Gran % (Auto) 0.400 Neut % (Auto) 64.0 Lymph % (Auto) 26.7 [place] % (Auto) 6.0 Eos % (Auto) 2.5 Baso % (Auto) 0.4 Absolute Neuts (auto) 7.1 Absolute Lymphs (auto) 2.94 Nucleated RBC % 0 Sodium 133 L Potassium 3.9 Chloride 102 Carbon Dioxide 27.0 Anion Gap 4 L BUN 12 Creatinine 0.83 Estim Creat Clear Calc 74.59 Est GFR (MDRD) Af Amer 94 Est GFR (MDRD) Non-Af 78 BUN/Creatinine Ratio 14.4 Glucose 355 H Lactic Acid 1.5 Calcium 8.7 - Medical Decision Making Patient was given morphine and Zofran for pain and nausea. Repeat evaluation patient is resting comfortably. I spoke with her wound care doctor, Dr. Guillen. She stated that if the wound looks okay she could go home with oral antibiotics and follow-up in the office on Friday. When I presented this to the patient she was uncomfortable with this plan and stated that with her experience with her past infections she is concerned that this is going to get significantly worse and feels that it would be better treated with IV antibiotics. I have no problem with this and will give the patient a dose of vancomycin and Zosyn. I will speak with hospitalist regarding admission. ED Disposition - Plan for ED Patient: Disposition: Home or Assisted Living Diagnosis: Diabetic foot ulcer Referrals: Ganta,Shirley, MD [Primary Care Provider] -
--- NOTE | 2020-11-11 21:45 | HP.PCM_ITS ---
History of Present Illness Date of Admission: 11/11/20 Chief Complaint: redness and increased pain of left great toe The patient is a 49 year old F with a PMH as outlined who was admitted via the ED with a worsening wound on her left great toe which worsened on the day of admission. She had been following up at the wound clinic and says it was previously healing well. However, she noticed that the toe was more red, swollen and painful today, so she decided to come in to the ED> she denied any fever or chills, nausea vomiting. Review of symptoms otherwise negative. She was tachycardic and tachypneic with temperature was 96.8 Fahrenheit and blood pressure was 144/88. CBC showed WBC of 11 with hemoglobin of 15.1 and platelets of 251. Chemistry showed sodium of 133. Lactic acid was 1.5. Foot x-ray was essentially normal. ED doctor did discuss with podiatry and podiatry first suggested that patient could be sent home on oral antibiotics. However patient preferred to stay for IV antibiotics. She has been admitted to be managed for sepsis due to left great toe infection.] Past Medical History Past Medical History (Chronic Problems): Chronic Problems Meniere disease (Chronic) Chronic ulcer of right foot with fat layer exposed (Chronic) Type 2 diabetes mellitus with diabetic polyneuropathy (Chronic) Hammer toe of right foot (Chronic) Obesity (BMI 30-39.9) (Chronic) Vertigo (Chronic) Hyperlipidemia (Chronic) Fibromyalgia (Chronic) Depression with anxiety (Chronic) Allergies clindamycin Allergy (Verified 11/11/20 19:37) Hives erythromycin base [From E-Mycin] Allergy (Verified 11/11/20 19:37) Hives Home Medications: Ambulatory Orders Medication Instructions Recorded Hydroxyzine Pamoate [Vistaril] 100 mg PO QHS PRN PRN 05/18/19 traZODone [Desyrel] 100 - 200 mg PO QHS PRN PRN 06/12/19 Duloxetine Hcl [Cymbalta] 60 mg PO DAILY 06/13/19 Albuterol Inhaler [Ventolin Hfa] 1 - 2 puff INHALATION Q6H PRN PRN 08/30/19 Atorvastatin Calcium [Lipitor] 80 mg PO QHS 08/30/19 Dulaglutide [Trulicity] 0.75 mg SQ WE 08/30/19 Duloxetine HCl 60 mg PO DAILY@1800 03/21/20 Losartan Potassium [Cozaar] 50 mg PO DAILY 03/21/20 Multivitamin with Minerals 1 tab PO DAILY 03/21/20 [Multiple Vitamin] Pregabalin [Lyrica] 100 mg PO BID 03/21/20 Acetaminophen [Tylenol Tablet] 650 mg PO Q6H PRN PRN tab 03/24/20 Iron Polysaccharide Complex 150 mg PO DAILY #30 cap 03/24/20 [Ferrex 150] Ergocalciferol [Vitamin D] 50,000 unit PO Q7D 10/17/20 Insulin Degludec [Tresiba 100 unit SQ DAILY 10/17/20 Flextouch U-100] Levothyroxine [Synthroid] 25 mcg PO DAILY 11/11/20 Pantoprazole Sodium [Protonix] 20 mg PO BID 11/11/20 Surgical History: appendectomy, - - T+A, BLTL, appendectomy, right great toe amputation. Right second toe partial amputation. 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 Paternal History Items: Asthma, - - Denies known paternal medical history including cardiac history. Review of Systems Constitutional: Denies: Chills, Fever, Malaise, Weakness, Weight Change Eyes: Denies: Blurred vision HEENT: Denies: Head Aches, Sinus Congestion, Sinus Drainage Cardiovascular: Denies: Chest Pain, Palpitations Respiratory: Denies: Cough, Shortness of Breath, Shortness of breath at rest, Sputum production Gastrointestinal: Denies: Abdominal Pain, Nausea, Vomiting Genitourinary: Reports: Dysuria Musculoskeletal: Denies: Joint Pain, Joint Tenderness Skin: Reports: - - left great toe ulceration. Neurological: Denies: Numbness, Tingling, Focal weakness Psychiatric: Denies: Anxiety, Depression, Homicidal Ideations, Suicidal Ideations Hematologic/ Lymphatic: Denies: Easy Bruising, Easy Bleeding VTE Information - Inpt Only VTE Present on Admission: No VTE Pharm Prophylaxis ordered?: Yes Patient Problems: Active and Suspected Problems Diabetic foot ulcer (Acute) - Physical Exam Vitals/I&O's: Vital Signs Temp Pulse Resp BP Pulse Ox 96.8 F L 114 H 20 H 144/88 H 94 11/11/20 19:27 11/11/20 19:27 11/11/20 19:27 11/11/20 19:27 11/11/20 19:27 Oxygen Delivery Method Room Air Weight: 247 lb 9.266 oz Body Mass Index (BMI) 41.1 Finger Stick Blood Glucose 269 General: Alert, Oriented x3, Cooperative HEENT: Atraumatic, PERRLA, EOMI, Normocephalic Oral: Moist Mucosa Neck: Supple, No JVD, Negative Carotid Bruits Lungs: Clear to auscultation, Normal air movement Cardiovascular: Regular rate, No murmurs Abdomen: Bowel Sounds Present, Soft, Non Tender Extremities: No edema, Capillary Refill Less than 3 Seconds Skin: No rashes, No breakdown, Ulcer/ Wound - left great toe is swollen, er ythematous, warm and tender to touch. Has a chronic ulceration on the base of the left great toe Musculoskeletal: No Tenderness to Palpation of Joints or Extremities Lymphatic: No Cervical, Supraclavicular, or Inguinal Adenopathy Neurological: Cranial nerves II-XII grossly intact, Neuro grossly intact, Motor Exam 5/5 strength throughout Psych/Mental Status: Normal Affect, Appropriate, Alert and oriented to time, place, person, mood and affect Laboratory Results 11/11/20 19:55: WBC 11.0, RBC 5.11, Hgb 15.1 H, Hct 45.4, MCV 88.8, MCH 29.5, MCHC 33.3, RDW Std Deviation 43.9, RDW Coeff of Bre[place] 13.5, Plt Count 251, MPV 10.3, Immature Gran % (Auto) 0.400, Neut % (Auto) 64.0, Lymph % (Auto) 26.7, [place] % (Auto) 6.0, Eos % (Auto) 2.5, Baso % (Auto) 0.4, Absolute Neuts (auto) 7.1, Absolute Lymphs (auto) 2.94, Nucleated RBC % 0 11/11/20 19:55: Sodium 133 L, Potassium 3.9, Chloride 102, Carbon Dioxide 27.0, Anion Gap 4 L, BUN 12, Creatinine 0.83, Estim Creat Clear Calc 74.59, Est GFR (MDRD) Af Amer 94, Est GFR (MDRD) Non-Af 78, BUN/Creatinine Ratio 14.4, Glucose 355 H, Calcium 8.7 11/11/20 19:55: Lactic Acid 1.5 Diagnostic Data Foot X-Ray 11/11/20 20:07 IMPRESSION: Normal x-ray examination of the foot. Electronically Signed: Zeferino Duong MD at 20:40 EST , Service support , Current Medications Piperacillin Sod/Tazobactam (Sod 3.375 gm/ Sodium Chloride) 50 mls @ 100 mls/hr IV X1 ONE Stop: 11/11/20 21:59 Last Admin: 11/11/20 21:43 Dose: 100 mls/hr Documented by: Vancomycin HCl 1,750 mg/ (Sodium Chloride) 535 mls @ 250 mls/hr IV X1 ONE Stop: 11/11/20 23:43 Assessment/Plan All Active Problems Osteomyelitis of toe of right foot (Resolved) Skin ulcer of left great toe with fat layer exposed (Acute) Diabetic foot ulcer (Acute) 49 y/o admitted with a complaint of left great toe redness and swelling #Sepsis due to left great toe infection * admit to PCU with telemetry * hydrate gently with IVF * start on IV vancomycin and zosyn * consult podiatry * get blood cultures and consult wound care * #Diabetes mellitus with neuropathy * on trulicity 0.75mg weekly and tresiba insulin 100 units sq daily. * ISS * accuchecks ACHS * on lyrica for neuropathy * #Hypothyroidism: on synthroid #Hypertension: on losartan #Hyperlipidemia: on statin DVT prophylaxis: lovenox Inpatient E&M: 38937 Init Hosp L3
[2020-11-11 21:46] VITALS: BP 132/79; PULSE 82; RESP 16; TEMP 36.3; O2SAT 96
[2020-11-11 21:56] VITALS: BP 132/79; PULSE 82; RESP 16; TEMP 36.3; O2SAT 96
[2020-11-11 22:35] VITALS: BMI 40.5
--- NOTE | 2020-11-11 22:44 | PCS.PANDOC ---
PANDEMIC DOCUMENTATION INITIATED: Date: 11/11/2020 Time: 0
[2020-11-11 22:49] VITALS: BMI 40.5
[2020-11-11 22:51] VITALS: BP 142/78; PULSE 85; RESP 18; TEMP 36.7; O2SAT 97
[2020-11-11 23:05] VITALS: PULSE 79
[2020-11-11 23:31] LABS: Bedside Glucose 218 mg/dL (70-110)
[2020-11-11] MEDS: 0.9% Normal Saline 1,000 ML 125 ML IV (23:37)
[2020-11-11] MEDS: 0.9% Saline Lock 10 ML Syringe IV (23:37)
[2020-11-11] MEDS: Morphine 2 MG/ML Syringe IV (23:37)
[2020-11-12] VITALS (13 sets, daily range): BP systolic 85–127; BP diastolic 48–69; PULSE 73–108; RESP 16–20; TEMP 36.7–39.2; O2SAT 92–100
--- NOTE | 2020-11-12 01:15 | PCM.RX.CS ---
Consult Pharmacy has been consulted to manage selected antiobiotic: Vancomycin Type of Consult: New start Suspected Infection: Sepsis Labs: Sodium 133 mmol/L (136-145) L 11/11/20 19:55 Potassium 3.9 mmol/L (3.5-5.1) 11/11/20 19:55 Chloride 102 mmol/L (98-107) 11/11/20 19:55 Carbon Dioxide 27.0 mmol/L (21.0-32.0) 11/11/20 19:55 Anion Gap 4 (5-15) L 11/11/20 19:55 BUN 12 mg/dL (7-18) 11/11/20 19:55 Creatinine 0.83 mg/dL (0.55-1.02) 11/11/20 19:55 Est GFR (MDRD) Af Amer 94 mL/min (>60) 11/11/20 19:55 Est GFR (MDRD) Non-Af 78 mL/min (>60) 11/11/20 19:55 BUN/Creatinine Ratio 14.4 RATIO (10-20) 11/11/20 19:55 Glucose 355 mg/dL (74-106) H 11/11/20 19:55 Weight used for dosin.5 kg Estimated Creatinine Clearance: 102.6 Goal Trough: 15-20 mcg/mL Pharmacy Plan for Drug Dosing: Pharmacy Service will continue to monitor and adjust dosing as required. Medications Vancomycin HCl 1,500 mg/ (Sodium Chloride) 530 mls @ 250 mls/hr IV Q8H ASHLEY Discontinued Medications Vancomycin HCl 1,750 mg/ (Sodium Chloride) 535 mls @ 250 mls/hr IV X1 ONE Stop: 11/11/20 23:43 Last Admin: 11/11/20 22:12 Dose: 250 mls/hr Documented by: Follow-Up Labs: Trough Vancomycin Labs to be done on [date and time ordered]: 11/12 @ [id number]
[2020-11-12] MEDS: oxyCODONE 5 MG Tablet PO (05:41)
[2020-11-12] MEDS: Levothyroxine 25 MCG TABLET PO (05:43)
[2020-11-12 06:11] LABS: Absolute Lymphocyte Count 2.59 X10^3/uL (0.83-4.51); Absolute Neutrophil Count 6.7 X10^3/uL (2.0-7.7); Basophil# 0.03 X10^3/uL; Basophil% 0.3 % (0-1); Eosinophil# 0.22 X10^3/uL; Eosinophils% 2.1 % (0-5); Hematocrit 42.9 % (37-47); Hemoglobin 13.5 g/dL (12.0-15.0); Lymphocyte # 2.59 X10^3/ul (4.0); Lymphocyte % 25.1 % (19-41); Mean Corp Hgb Conc 31.5 g/dL (32-36); Mean Corpuscular Hgb 29.1 pg (27.0-32.0); Mean Corpuscular Volume 92.5 fL (81-99); Mean Platelet Vol. 10.1 fl (6.2-12.0); Monocyte# 0.68 X10^3/uL; Monocyte% 6.6 % (0-10); NRBC Flagged by Analyzer 0 % (0-5); Neutrophil # 6.73 X10^3/uL (2.7-7.7); Neutrophil % 65.4 % (47-70); Platelet Count 232 K/mm3 (150-450); RBC Distribution Width CV 13.5 % (11.6-14.6); RBC Distribution Width SD 46.3 fl (35.1-43.9); Red Blood Count 4.64 M/mm3 (4.2-5.4); White Blood Count 10.3 K/mm3 (4.4-11.0)
[2020-11-12 06:37] LABS: Anion Gap 4 (5-15); BUN 13 mg/dL (7-18); BUN/Creat Ratio 13.2 RATIO (10-20); Calcium,Total 7.8 mg/dL (8.5-10.1); Chloride 105 mmol/L (98-107); Creatinine, Serum 0.99 mg/dL (0.55-1.02); EST Glomerular Filtration Rate 64 mL/min (>60); Est Glom Filt Rate - Afr Amer 77 mL/min (>60); Estimated Creatinine Clearance 62.53 ml/min; Glucose 312 mg/dL (74-106); Potassium 3.9 mmol/L (3.5-5.1); Sodium Level 135 mmol/L (136-145)
[2020-11-12] MEDS: 0.9% Normal Saline 1,000 ML 125 ML IV (06:38)
[2020-11-12] MEDS: Insulin Lispro 100 UNIT/ML INSULN.PEN SC ×2 (06:44→11:30)
[2020-11-12 07:05] LABS: Bedside Glucose 322 mg/dL (70-110)
--- NOTE | 2020-11-12 07:45 | CON.PCM_ITS ---
Problem List (1) Foot ulcer, left Status: Acute (2) Cellulitis of left foot Status: Acute (3) Diabetic foot ulcer Status: Acute (4) Type 2 diabetes mellitus with diabetic polyneuropathy Status: Chronic Reason for Consult Date of Consultation: 11/12/20 Reason for Consultation: Left foot cellulitis. Left foot ulcer to hallux History of Present Illness: The patient is a 49 year old F who presents to emergency department with worsening of left hallux ulceration. Patient has history of diabetes with a mputation amputation of right toe. Patient relates that she has been seen at the wound care center but missed this week's appointment due to not be able to get transportation. Patient states that that has worsened in the last day with increased redness swelling pain. Patient is also noted a spike in her blood sugar. Patient was seen in the emergency department where course of oral antibiotics and close follow-up with me in office was offered to her. Patient not been on antibiotics since September when she took some Bactrim for a similar issue. At which time the issue cleared up and the wound continued to progress. Patient states that this felt really bad and she did not want to lose another toe so was like to be admitted for IV antibiotics. Patient denies any nausea fever vomiting chills chest pain shortness of breath diarrhea constipation. She denies any drainage out of the ulcer site. No other pedal complaints. Patient also has a surgical shoe with offloading. [] Past Medical History Past Medical History (Chronic Problems): Chronic Problems Meniere disease (Chronic) Chronic ulcer of right foot with fat layer exposed (Chronic) Type 2 diabetes mellitus with diabetic polyneuropathy (Chronic) Hammer toe of right foot (Chronic) Obesity (BMI 30-39.9) (Chronic) Vertigo (Chronic) Hyperlipidemia (Chronic) Fibromyalgia (Chronic) Depression with anxiety (Chronic) Allergies clindamycin Allergy (Verified 11/11/20 19:37) Hives erythromycin base [From E-Mycin] Allergy (Verified 11/11/20 19:37) Hives Home Medications: Ambulatory Orders Medication Instructions Recorded Hydroxyzine Pamoate [Vistaril] 100 mg PO QHS PRN PRN 05/18/19 traZODone [Desyrel] 100 - 200 mg PO QHS 06/12/19 Albuterol Inhaler [Ventolin Hfa] 1 - 2 puff INHALATION Q6H PRN PRN 08/30/19 Atorvastatin Calcium [Lipitor] 80 mg PO QHS 08/30/19 Dulaglutide [Trulicity] 0.75 mg SQ WE 08/30/19 Duloxetine HCl 60 mg PO DAILY@1800 03/21/20 Losartan Potassium [Cozaar] 50 mg PO DAILY 03/21/20 Multivitamin with Minerals 1 tab PO DAILY 03/21/20 [Multiple Vitamin] Pregabalin [Lyrica] 100 mg PO BID 03/21/20 Acetaminophen [Tylenol Tablet] 650 mg PO Q6H PRN PRN tab 03/24/20 Ergocalciferol [Vitamin D] 50,000 unit PO WE 10/17/20 Insulin Degludec [Tresiba 100 unit SQ DAILY 10/17/20 Flextouch U-100] Iron Polysaccharide Complex 150 mg PO DAILY 11/11/20 [Ferrex 150] Levothyroxine [Synthroid] 25 mcg PO DAILY 11/11/20 Pantoprazole Sodium [Protonix] 20 mg PO BID 11/11/20 Surgical History: appendectomy, - - T+A, BLTL, appendectomy, right great toe amputation. Right second toe partial amputation. 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 Paternal History Items: Asthma, - - Denies known paternal medical history including cardiac history. Review of Systems Constitutional: Denies: Chills, Fever Cardiovascular: Denies: Chest Pain Respiratory: Denies: Cough, Shortness of Breath Gastrointestinal: Denies: Constipation, Diarrhea, Nausea, Vomiting Musculoskeletal: Reports: Foot Pain - Left hallux Skin: Reports: Wounds - Left hallux Neurological: Reports: Numbness, Tingling Patient Problems: Active and Suspected Problems Diabetic foot ulcer (Acute) Foot ulcer, left (Acute) Cellulitis of left foot (Acute) - Physical Exam Vitals/I&O's: Vital Signs Temp Pulse Resp BP Pulse Ox 98.2 F 77 16 110/53 L 93 11/12/20 04:46 11/12/20 07:01 11/12/20 04:46 11/12/20 04:46 11/12/20 07:17 Oxygen Delivery Method Room Air Weight: 110.5 kg Body Mass Index (BMI) 40.5 Finger Stick Blood Glucose 269 Intake and Output for Last 24 Hours 11/10/20 11/11/20 11/12/20 23:59 23:59 23:59 Intake Total 290 / 290 1532.33 / 1532.33 Balance 290 / 290 1532.33 / 1532.33 General: Alert, Oriented x3 HEENT: Atraumatic Abdomen: Obese Extremities: Capillary Refill Less than 3 Seconds, No Calf Tenderness, Diminished Peripheral Pulses, Edema - Left hallux, Tenderness Skin: Ulcer/ Wound - Hallux left. No malodor, purulence, probing to bone. There is some erythema and edema noted to the left hallux. This is worse than last time I saw her. Ulcer covered by callus tissue. skin atrophic and hairless. Sanguinous drainage noted upon debridement Musculoskeletal: Tenderness, - - Right hallux amputation Neurological: - - Lack of epicritic sensation consistent with neuropathy Psych/Mental Status: Normal Affect, Appropriate Laboratory Results 11/11/20 19:55: WBC 11.0, RBC 5.11, Hgb 15.1 H, Hct 45.4, MCV 88.8, MCH 29.5, MCHC 33.3, RDW Std Deviation 43.9, RDW Coeff of Brea 13.5, Plt Count 251, MPV 10.3, Immature Gran % (Auto) 0.400, Neut % (Auto) 64.0, Lymph % (Auto) 26.7, [place] % (Auto) 6.0, Eos % (Auto) 2.5, Baso % (Auto) 0.4, Absolute Neuts (auto) 7.1, Absolute Lymphs (auto) 2.94, Nucleated RBC % 0 11/11/20 19:55: Sodium 133 L, Potassium 3.9, Chloride 102, Carbon Dioxide 27.0, Anion Gap 4 L, BUN 12, Creatinine 0.83, Estim Creat Clear Calc 74.59, Est GFR (MDRD) Af Amer 94, Est GFR (MDRD) Non-Af 78, BUN/Creatinine Ratio 14.4, Glucose 355 H, Calcium 8.7 11/11/20 19:55: Lactic Acid 1.5 11/11/20 23:25: POC Glucose 218 H 11/12/20 05:32: WBC 10.3, RBC 4.64, Hgb 13.5, Hct 42.9, MCV 92.5, MCH 29.1, MCHC 31.5 L D, RDW Std Deviation 46.3 H, RDW Coeff of Brea 13.5, Plt Count 232, MPV 10.1, Immature Gran % (Auto) 0.500, Neut % (Auto) 65.4, Lymph % (Auto) 25.1, [place] % (Auto) 6.6, Eos % (Auto) 2.1, Baso % (Auto) 0.3, Absolute Neuts (auto) 6.7, Absolute Lymphs (auto) 2.59, Nucleated RBC % 0 11/12/20 05:32: Sodium 135 L, Potassium 3.9, Chloride 105, Carbon Dioxide 26.0, Anion Gap 4 L, BUN 13, Creatinine 0.99, Estim Creat Clear Calc 62.53, Est GFR (MDRD) Af Amer 77, Est GFR (MDRD) Non-Af 64, BUN/Creatinine Ratio 13.2, Glucose 312 H, Calcium 7.8 L 11/12/20 06:42: POC Glucose 322 H Current Medications Acetaminophen (Acetaminophen 325 Mg Tablet) 650 mg PO Q6H PRN PRN PRN Reason: Pain Score 1-10/Temp > 100.7 F Albuterol Sulfate (Albuterol 2.5 Mg/3 Ml Vial.Neb.) 2.5 mg INHALATION Q4H PRN PRN PRN Reason: SOB &/OR WHEEZING Atorvastatin Calcium (Atorvastatin Calcium 80 Mg Tablet) 80 mg PO QHS ASHLEY Duloxetine HCl (Duloxetine Hcl 60 Mg Capsule) 60 mg PO DAILY@1800 [facility] Enoxaparin Sodium (Enoxaparin 40 Mg/0.4 Ml Syringe) 40 mg SC DAILY ASHLEY Ergocalciferol (Ergocalciferol 50,000 Unit Capsule) 50,000 unit PO Q7D ASHLEY Hydroxyzine Pamoate (Hydroxyzine Yarely 25 Mg Capsule) 100 mg PO QHS PRN PRN PRN Reason: ANXIETY Sodium Chloride () 250 mls @ 15 mls/hr IV .[id number] PRN PRN Reason: Saline Flush Last Infusion: 11/12/20 05:42 Dose: 0 mls/hr Documented by: Sodium Chloride () 250 mls @ 15 mls/hr IV .[id number] PRN PRN Reason: Additional IVPB Infusion Sodium Chloride () 1,000 mls @ 125 mls/hr IV .Q8H [facility] Stop: 11/12/20 14:49 Last Admin: 11/12/20 06:38 Dose: 125 mls/hr Documented by: Vancomycin IV Pharmacy to Dose (1 ea/ Sodium Chloride) 500 mls @ 250 mls/hr IV X1 PRN; Protocol PRN Reason: Rx to Dose Piperacillin Sod/Tazobactam (Sod 3.375 gm/ Sodium Chloride) 50 mls @ 12.5 mls/hr IV Q8 [facility] Last Admin: 11/12/20 05:39 Dose: 12.5 mls/hr Documented by: Vancomycin HCl 1,500 mg/ (Sodium Chloride) 530 mls @ 250 mls/hr IV Q8H [facility] Last Admin: 11/12/20 05:39 Dose: 250 mls/hr Documented by: Insulin Glargine (Insulin Glargine 100 Units/Ml Pen) 100 units SC DAILY [facility] Insulin Human Lispro (Insulin Lispro 100 Unit/Ml Insuln.Pen) 0 unit SC ACHS [facility]; Protocol Last Admin: 11/12/20 06:44 Dose: 6 u Documented by: Levothyroxine Sodium (Levothyroxine 25 Mcg Tablet) 25 mcg PO DAILY@0600 [facility] Last Admin: 11/12/20 05:43 Dose: 25 mcg Documented by: Losartan Potassium (Losartan Potassium 50 Mg Tablet) 50 mg PO DAILY [facility] Morphine Sulfate (Morphine 2 Mg/Ml Syringe) 2 mg IV Q3H PRN PRN PRN Reason: Pain Score 6-10 Last Admin: 11/11/20 23:37 Dose: 2 mg Documented by: Multivitamins/Minerals (Multivitamins,Ther W-Minerals Tablet) 1 tablet PO DAILY@0800 [facility] Non-Formulary Medication (Dulaglutide) 0.75 mg SQ WE [facility] Nutritional Formula (Lactose Free) (Glucerna Shake 120 Ml Liquid) 120 ml PO 4X/DAY [facility] Ondansetron HCl (Ondansetron 4 Mg/2 Ml Vial) 4 mg IV Q8H PRN PRN PRN Reason: NAUSEA/VOMITING Oxycodone HCl (Oxycodone 5 Mg Tablet) 5 mg PO Q4H PRN PRN PRN Reason: Pain Score 4-5 Last Admin: 11/12/20 05:41 Dose: 5 mg Documented by: Pantoprazole Sodium (Pantoprazole Sodium 20 Mg Tablet) 20 mg PO BID A[facility] Polysaccharide Iron Complex (Iron Polysaccharide Complex 150 Mg Capsule) 150 mg PO DAILYCM [facility] Pregabalin (Pregabalin 50 Mg Capsule) 100 mg PO BID [facility] Sodium Chloride (0.9% Saline Lock 10 Ml Syringe) 10 - 40 ml IV UD PRN PRN Reason: SALINE FLUSH Last Admin: 11/11/20 23:37 Dose: 10 ml Documented by: Trazodone HCl (Trazodone 50 Mg Tablet) 100 mg PO QHS [facility] Assessment/Plan All Active Problems Osteomyelitis of toe of right foot (Resolved) Skin ulcer of left great toe with fat layer exposed (Acute) Diabetic foot ulcer (Acute) Foot ulcer, left (Acute) Cellulitis of left foot (Acute) Left hallux ulceration Left hallux cellulitis Diabetes with neuropathy Patient seen and examined. I have been seeing patient at the wound care center for this wound. Patient was noted to have missed this week's appointment due to transportation issues. There is increased erythema and edema to the left hallux compared to last time I saw the patient. Blood flow studies reviewed. Venous studies showed patent deep veins. Arterial studies showed Right OSVALDO 1.08 and TBI 0.99 and left OSVALDO 1.02 and TBI 1.07 with bilateral triphasic pulses noted. This should prove adequate to allow healing. White blood cell count of 11, lactic acid 1.5, glucose 355, blood cultures pending Continue wound care With hydrogel dry sterile dressing daily Continue offloading with offloaded surgical shoe. She has this with her for while in the hospital discussed proper blood sugar control, diet, wound care, and offloading to better allow healing. Left medial hallux ulceration sharp excisional nonselective debridement was carried out into the level of subcutaneous tissue with a curette with removal of all devitalized, slough, biofilm, and fibrous tissue. This was done without incidence. This was tolerated due to patient's neuropathy. Debridement measurements reviewed 0 x 0 x 0 cm with complete callus Over ulceration. Post debridement post debridement measurements were 0.8 x 0.8 x 0.5 cm Cultures were obtained Continue antibiotics X-rays were reviewed showing no evidence of osteomyelitis Wound does not currently probe to bone. Discussed with patient the next up would be getting an MRI to assess if there is any underlying bone infection. Patient has had cellulitis in his toe before. He responded well to antibiotics at that time. MRI ordered Thank you for the consult Podiatry continue to follow. Please reach out if any questions or concerns Haylee Guillen DPM [facility] [phone] This note was generated with [employer] dictation software. It may contain incorrect words, spelling, and punctuation that were not noted in checking the note before signing.
[2020-11-12] MEDS: Morphine 2 MG/ML Syringe IV (08:07)
[2020-11-12] MEDS: 0.9% Saline Lock 10 ML Syringe IV (08:07)
[2020-11-12] MEDS: Glucerna Shake 120 ML LIQUID PO (09:35)
[2020-11-12] MEDS: Enoxaparin 40 MG/0.4 ML Syringe SC (09:35)
[2020-11-12] MEDS: Iron Polysaccharide Complex 150 MG CAPSULE PO (09:36)
[2020-11-12] MEDS: Pantoprazole Sodium 20 MG Tablet PO ×2 (09:36→21:13)
[2020-11-12] MEDS: Multivitamins,Ther W-Minerals Tablet 1 TABLET PO (09:36)
[2020-11-12] MEDS: Losartan Potassium 50 MG Tablet PO (09:36)
[2020-11-12] MEDS: Pregabalin 50 MG Capsule 100 MG PO ×2 (09:36→21:12)
[2020-11-12 11:46] LABS: Bedside Glucose 209 mg/dL (70-110)
[2020-11-12] MEDS: Acetaminophen 325 MG Tablet 650 MG PO (15:56)
[2020-11-12 16:56] LABS: Bedside Glucose 101 mg/dL (70-110)
--- NOTE | 2020-11-12 17:10 | PN_ITS ---
Patient Problems: Active and Suspected Problems Diabetic foot ulcer (Acute) Foot ulcer, left (Acute) Cellulitis of left foot (Acute) Subjective: Patient was seen and examined today, she spiked a temperature this afternoon of 102. Patient's white blood cell count was normal however this morning. Patient is currently on broad-spectrum antibiotics, she was seen by podiatry today who ordered an MRI of the patient. Patient has no complaints of any chills however at this time and does not really feel like she is running a temperature. - Physical Exam Vitals/I&O's: Vital Signs Temp Pulse Resp BP Pulse Ox 102.5 F H 108 H 18 103/48 L 92 11/12/20 15:35 11/12/20 15:35 11/12/20 15:35 11/12/20 15:35 11/12/20 15:35 Oxygen Delivery Method Room Air Weight: 110.5 kg Body Mass Index (BMI) 40.5 Finger Stick Blood Glucose 269 Intake and Output for Last 24 Hours 11/10/20 11/11/20 11/12/20 23:59 23:59 23:59 Intake Total 290 / 290 4002.33 / 4002.33 Balance 290 / 290 4002.33 / 4002.33 General: Alert, Oriented x3, Cooperative, No apparent distress, Well developed HEENT: Atraumatic, PERRLA, EOMI, Normocephalic Oral: Moist Mucosa Neck: Supple, No JVD, Trachea Midline, Thyroid Normal Size and Texture Lungs: Clear to auscultation, Normal air movement, No rhonchi, No wheeze, No rales Cardiovascular: Regular rate, Regular Rhythm, Normal S1, Normal S2, No murmurs, PMI Normal, No rub noted, No Gallop Abdomen: Bowel Sounds Present, Soft, Non Tender, Non-Distended Extremities: No clubbing, No cyanosis, No edema, Capillary Refill Less than 3 Seconds Skin: No rashes, No breakdown Musculoskeletal: No Tenderness to Palpation of Joints or Extremities Neurological: Cranial nerves II-XII grossly intact, Neuro grossly intact Psych/Mental Status: Normal Affect, Appropriate, Alert and oriented to time, place, person, mood and affect Laboratory Results 11/11/20 19:55: WBC 11.0, RBC 5.11, Hgb 15.1 H, Hct 45.4, MCV 88.8, MCH 29.5, MCHC 33.3, RDW Std Deviation 43.9, RDW Coeff of Brea 13.5, Plt Count 251, MPV 10.3, Immature Gran % (Auto) 0.400, Neut % (Auto) 64.0, Lymph % (Auto) 26.7, Dickens % (Auto) 6.0, Eos % (Auto) 2.5, Baso % (Auto) 0.4, Absolute Neuts (auto) 7.1, Absolute Lymphs (auto) 2.94, Nucleated RBC % 0 11/11/20 19:55: Sodium 133 L, Potassium 3.9, Chloride 102, Carbon Dioxide 27.0, Anion Gap 4 L, BUN 12, Creatinine 0.83, Estim Creat Clear Calc 74.59, Est GFR (MDRD) Af Amer 94, Est GFR (MDRD) Non-Af 78, BUN/Creatinine Ratio 14.4, Glucose 355 H, Calcium 8.7 11/11/20 19:55: Lactic Acid 1.5 11/11/20 23:25: POC Glucose 218 H 11/12/20 05:32: WBC 10.3, RBC 4.64, Hgb 13.5, Hct 42.9, MCV 92.5, MCH 29.1, MCHC 31.5 L D, RDW Std Deviation 46.3 H, RDW Coeff of Brea 13.5, Plt Count 232, MPV 10.1, Immature Gran % (Auto) 0.500, Neut % (Auto) 65.4, Lymph % (Auto) 25.1, Dickens % (Auto) 6.6, Eos % (Auto) 2.1, Baso % (Auto) 0.3, Absolute Neuts (auto) 6.7, Absolute Lymphs (auto) 2.59, Nucleated RBC % 0 11/12/20 05:32: Sodium 135 L, Potassium 3.9, Chloride 105, Carbon Dioxide 26.0, Anion Gap 4 L, BUN 13, Creatinine 0.99, Estim Creat Clear Calc 62.53, Est GFR (MDRD) Af Amer 77, Est GFR (MDRD) Non-Af 64, BUN/Creatinine Ratio 13.2, Glucose 312 H, Calcium 7.8 L 11/12/20 06:42: POC Glucose 322 H 11/12/20 11:29: POC Glucose 209 H 11/12/20 16:31: POC Glucose 101 Current Medications Acetaminophen (Acetaminophen 325 Mg Tablet) 650 mg PO Q6H PRN PRN PRN Reason: Pain Score 1-10/Temp > 100.7 F Last Admin: 11/12/20 15:56 Dose: 650 mg Documented by: Albuterol Sulfate (Albuterol 2.5 Mg/3 Ml Vial.Neb.) 2.5 mg INHALATION Q4H PRN PRN PRN Reason: SOB &/OR WHEEZING Atorvastatin Calcium (Atorvastatin Calcium 80 Mg Tablet) 80 mg PO QHS [facility] Duloxetine HCl (Duloxetine Hcl 60 Mg Capsule) 60 mg PO DAILY@1800 [facility] Enoxaparin Sodium (Enoxaparin 40 Mg/0.4 Ml Syringe) 40 mg SC DAILY [facility] Last Admin: 11/12/20 09:35 Dose: 40 mg Documented by: Ergocalciferol (Ergocalciferol 50,000 Unit Capsule) 50,000 unit PO Q7D [facility] Hydroxyzine Pamoate (Hydroxyzine Yarely 25 Mg Capsule) 100 mg PO QHS PRN PRN PRN Reason: ANXIETY Sodium Chloride () 250 mls @ 15 mls/hr IV .[id number] PRN PRN Reason: Saline Flush Last Infusion: 11/12/20 05:42 Dose: 0 mls/hr Documented by: Sodium Chloride () 250 mls @ 15 mls/hr IV .[id number] PRN PRN Reason: Additional IVPB Infusion Vancomycin IV Pharmacy to Dose (1 ea/ Sodium Chloride) 500 mls @ 250 mls/hr IV X1 PRN; Protocol PRN Reason: Rx to Dose Piperacillin Sod/Tazobactam (Sod 3.375 gm/ Sodium Chloride) 50 mls @ 12.5 mls/hr IV Q8 [facility] Last Admin: 11/12/20 13:39 Dose: 12.5 mls/hr Documented by: Vancomycin HCl 1,500 mg/ (Sodium Chloride) 530 mls @ 250 mls/hr IV Q8H [facility] Last Infusion: 11/12/20 15:54 Dose: Infused Documented by: Insulin Glargine (Insulin Glargine 100 Units/Ml Pen) 100 units SC DAILY [facility] Last Admin: 11/12/20 09:35 Dose: 100 u Documented by: Insulin Human Lispro (Insulin Lispro 100 Unit/Ml Insuln.Pen) 0 unit SC ACHS [facility]; Protocol Last Admin: 11/12/20 16:32 Dose: Not Given Documented by: L-Arginine/L-Glutamine/Calcium HMB (Rip (Unflavored) Packet) [facility] Levothyroxine Sodium (Levothyroxine 25 Mcg Tablet) 25 mcg PO DAILY@0600 [facility] Last Admin: 11/12/20 05:43 Dose: 25 mcg Documented by: Losartan Potassium (Losartan Potassium 50 Mg Tablet) 50 mg PO DAILY [facility] Last Admin: 11/12/20 09:36 Dose: 50 mg Documented by: Morphine Sulfate (Morphine 2 Mg/Ml Syringe) 2 mg IV Q3H PRN PRN PRN Reason: Pain Score 6-10 Last Admin: 11/12/20 08:07 Dose: 2 mg Documented by: Multivitamins/Minerals (Multivitamins,Ther W-Minerals Tablet) 1 tablet PO DAILY@0800 [facility] Last Admin: 11/12/20 09:36 Dose: 1 tablet Documented by: Non-Formulary Medication (Dulaglutide) 0.75 mg SQ [facility] Ondansetron HCl (Ondansetron 4 Mg/2 Ml Vial) 4 mg IV Q8H PRN PRN PRN Reason: NAUSEA/VOMITING Oxycodone HCl (Oxycodone 5 Mg Tablet) 5 mg PO Q4H PRN PRN PRN Reason: Pain Score 4-5 Last Admin: 11/12/20 05:41 Dose: 5 mg Documented by: Pantoprazole Sodium (Pantoprazole Sodium 20 Mg Tablet) 20 mg PO BID [facility] Last Admin: 11/12/20 09:36 Dose: 20 mg Documented by: Polysaccharide Iron Complex (Iron Polysaccharide Complex 150 Mg Capsule) 150 [facility] Last Admin: 11/12/20 09:36 Dose: 150 mg Documented by: Pregabalin (Pregabalin 50 Mg Capsule) 100 mg PO BID [facility] Last Admin: 11/12/20 09:36 Dose: 100 mg Documented by: Sodium Chloride (0.9% Saline Lock 10 Ml Syringe) 10 - 40 ml IV UD PRN PRN Reason: SALINE FLUSH Last Admin: 11/12/20 08:07 Dose: 10 ml Documented by: Trazodone HCl (T[facility]odone 50 Mg Tablet) [facility] Medical Necessity - Tobacco Use Smoking Status: Current every day smoker Assessment/Plan All Active Problems Osteomyelitis of toe of right foot (Resolved) Skin ulcer of left great toe with fat layer exposed (Acute) Diabetic foot ulcer (Acute) Foot ulcer, left (Acute) Cellulitis of left foot (Acute) #1 cellulitis of the left great toe-secondary to type 2 diabetes with polyneuropathy-patient will remain on her current coverage, blood cultures are pending at this time, patient will have an MRI of her lower extremity tomorrow, podiatry is participating in her care, labs will be repeated tomorrow. #2 cellulitis of the left foot-again patient is on broad-spectrum antibiotics #3 type 2 diabetes #4 diabetic neuropathy #5 hyperlipidemia Inpatient E&M: 51308 Subs Hosp L2
[2020-11-12] MEDS: Juven (unflavored) Packet 1 PACKET PO (17:16)
[2020-11-12] MEDS: DULoxetine Hcl 60 MG Capsule PO (17:16)
[2020-11-12] MEDS: Ondansetron 4 MG/2 ML Vial IV (19:09)
[2020-11-12 19:21] LABS: Bedside Glucose 115 mg/dL (70-110)
[2020-11-12] MEDS: 0.9% Normal Saline 1,000 ML 500 ML IV (21:11)
[2020-11-12] MEDS: Atorvastatin Calcium 80 MG Tablet PO (21:13)
[2020-11-12 21:25] LABS: Bedside Glucose 86 mg/dL (70-110)
[2020-11-12] MEDS: 0.9% Normal Saline 1,000 ML 150 ML IV (22:42)
[2020-11-13] VITALS (11 sets, daily range): BP systolic 89–134; BP diastolic 54–71; PULSE 69–86; RESP 16–18; TEMP 36.7–36.9; O2SAT 92–97
--- NOTE | 2020-11-13 03:02 | PCM.RX.CS ---
Consult Pharmacy has been consulted to manage selected antiobiotic: Vancomycin Type of Consult: Follow-up Labs: Sodium 135 mmol/L (136-145) L 11/12/20 05:32 Potassium 3.9 mmol/L (3.5-5.1) 11/12/20 05:32 Chloride 105 mmol/L (98-107) 11/12/20 05:32 Carbon Dioxide 26.0 mmol/L (21.0-32.0) 11/12/20 05:32 Anion Gap 4 (5-15) L 11/12/20 05:32 BUN 13 mg/dL (7-18) 11/12/20 05:32 Creatinine 0.99 mg/dL (0.55-1.02) 11/12/20 05:32 Est GFR (MDRD) Af Amer 77 mL/min (>60) 11/12/20 05:32 Est GFR (MDRD) Non-Af 64 mL/min (>60) 11/12/20 05:32 BUN/Creatinine Ratio 13.2 RATIO (10-20) 11/12/20 05:32 Glucose 312 mg/dL (74-106) H 11/12/20 05:32 Vancomycin Trough 49.0 ug/mL (5.0-15.0) H 11/12/20 21:16 Goal Trough: 15-20 mcg/mL Pharmacy Plan for Drug Dosing: Pharmacy Service will continue to monitor and adjust dosing as required. TROUGH 49 HOLD DOSE AND DRAW RANDOM TROUGH 11/13 @ 2200 Follow-Up Labs: Trough Vancomycin Labs to be done on [date and time ordered]: 11/14 @ 2200
[2020-11-13] MEDS: 0.9% Normal Saline 1,000 ML 999 ML IV (04:58)
[2020-11-13 06:00] LABS: Absolute Lymphocyte Count 2.52 X10^3/uL (0.83-4.51); Absolute Neutrophil Count 11.2 X10^3/uL (2.0-7.7); Basophil# 0.05 X10^3/uL; Basophil% 0.3 % (0-1); Eosinophil# 0.31 X10^3/uL; Hematocrit 36.6 % (37-47); Hemoglobin 11.6 g/dL (12.0-15.0); Lymphocyte # 2.52 X10^3/ul (4.0); Lymphocyte % 16.6 % (19-41); Mean Corp Hgb Conc 31.7 g/dL (32-36); Mean Corpuscular Hgb 29.7 pg (27.0-32.0); Mean Corpuscular Volume 93.6 fL (81-99); Mean Platelet Vol. 9.8 fl (6.2-12.0); Monocyte# 1.03 X10^3/uL; Monocyte% 6.8 % (0-10); NRBC Flagged by Analyzer 0 % (0-5); Neutrophil # 11.18 X10^3/uL (2.7-7.7); Platelet Count 158 K/mm3 (150-450); RBC Distribution Width CV 14.1 % (11.6-14.6); RBC Distribution Width SD 47.8 fl (35.1-43.9); Red Blood Count 3.91 M/mm3 (4.2-5.4); White Blood Count 15.1 K/mm3 (4.4-11.0)
[2020-11-13] MEDS: Levothyroxine 25 MCG TABLET PO (06:36)
[2020-11-13 06:45] LABS: Anion Gap 6 (5-15); BUN 30 mg/dL (7-18); Calcium,Total 7.2 mg/dL (8.5-10.1); Chloride 110 mmol/L (98-107); Creatinine, Serum 3.34 mg/dL (0.55-1.02); EST Glomerular Filtration Rate 16 mL/min (>60); Est Glom Filt Rate - Afr Amer 19 mL/min (>60); Estimated Creatinine Clearance 18.54 ml/min; Glucose 113 mg/dL (74-106); Potassium 4.2 mmol/L (3.5-5.1); Sodium Level 139 mmol/L (136-145)
[2020-11-13] MEDS: Albuterol 2.5 MG/3 ML VIAL.NEB. INHALATION (07:16)
[2020-11-13] MEDS: 0.9% Normal Saline 1,000 ML 150 ML IV (07:30)
[2020-11-13] MEDS: Enoxaparin 40 MG/0.4 ML Syringe SC (09:13)
[2020-11-13] MEDS: Pantoprazole Sodium 20 MG Tablet PO ×2 (09:14→21:26)
[2020-11-13] MEDS: Multivitamins,Ther W-Minerals Tablet 1 TABLET PO (09:14)
[2020-11-13] MEDS: Iron Polysaccharide Complex 150 MG CAPSULE PO (09:14)
--- NOTE | 2020-11-13 10:11 | MRI_ITS ---
STUDY: MRI LEFT FOREFOOT WITH AND WITHOUT CONTRAST REASON FOR EXAM: Ulcer at the plantar surface of the first toe. TECHNIQUE: Standardized fat and water weighted pulse sequences were obtained in all 3 orthogonal planes, post contrast administration. DOTAREM 20 CC IV was administered for the contrast portion of the examination. COMPARISON: Radiographs 11/11/2020. FINDINGS: There is mild arthrosis of the metatarsophalangeal joint of the hallux with mild chondral thinning and and an osteochondral lesion of the head of the first metatarsal measuring 0.5 cm in AP dimension (T1 sagittal image 20). Normal tibial and fibular sesamoids, with normal sesamoids-first metatarsal articulations. Normal interphalangeal joint of the hallux. There is mild bone edema of the ungual tuft of the first distal phalanx (inversion recovery sagittal image 19) without corresponding decreased T1 bone marrow signal and with mild contrast enhancement (postcontrast T1 sagittal image 19), either early osteomyelitis or reactive bone edema. Normal proximal phalanx of the great toe. Normal medial and lateral heads of the flexor hallucis brevis tendons. Normal flexor and extensor hallucis longus tendons. Normal second through fifth metatarsophalangeal (MTP) joints. Normal interphalangeal joints of the second through fifth toes. Normal proximal, middle and distal phalanges of the second through fifth toes. Normal flexor and extensor tendons of the second through fifth toes. Normal first through fourth intermetatarsal spaces. There is mild bone edema of the proximal second metatarsal (inversion recovery sagittal image 11), a stress phenomenon. There is mild bone edema of the proximal third metatarsal (inversion recovery sagittal image 8), a stress phenomenon. There is bone edema of the medial cuneiform (inversion recovery sagittal images 15-17), a stress phenomenon. Normal intrinsic muscles of the forefoot. There is edema in the subcutis adipose space. There is no focal fluid collection to indicate soft tissue abscess. MRI/Lower Ext No Joint W/WO Cont IMPRESSION: Mild bone edema of the ungual tuft of the first distal phalanx, either early osteomyelitis or reactive bone edema. Mild arthrosis of the first metatarsophalangeal joint with an osteochondral lesion of the head of the first metatarsal. Mild bone edema of the proximal second and third metatarsals, a stress phenomenon. Bone edema of the medial cuneiform, a stress phenomenon. No demonstrated soft tissue abscess. Electronically Signed: Cesar Bey MD at 11:23 EST Tel , Service support ,
--- NOTE | 2020-11-13 10:47 | CASEMGMT ---
RN CM Assessment Note Introduced role of CM to patient in room. Pt is awake, alert and able to participate in assessment. Demographics, PCP verified. Patient states she was independent at home prior to admission. Presentation: pain and worsening wound on left great toe. Diagnosis: cellulitis of the L great toe PCP: Dr. Garcia Specialists: wound center Insurance: Mikael Rizvi Pharmacy: [facility] Prescription Benefit: yes LNOK: kristal Martínez, Mother; Monserrat Crenshaw, sister is DPOA Living Will/DPOA: on file in [facility] and Monserrat Crenshaw, sister is Living Arrangements: Live in a ground floor apartment with 8 steps down. She states she is independent with ADL and no care needs prior. She has a tub/shower. No difficulty with showering at this time. Tranportation: drives or has friend who can drive DME: [facility]- is functioning and patient has supplies. HHC: none SNF: [facility] in past Patient DC Goals: Home DC Plan: anticipate home on discharge. will follow for dc needs re: foot wound. CM available for discharge planning coordination. Contact CM for any concerns/needs that may arise. Anisha ARROYO RN ACM
[2020-11-13] MEDS: Insulin Lispro 100 UNIT/ML INSULN.PEN SC ×3 (10:56→21:27)
[2020-11-13 11:01] LABS: Bedside Glucose 86 mg/dL (70-110)
[2020-11-13 11:10] LABS: Bedside Glucose 188 mg/dL (70-110)
[2020-11-13 13:33] LABS: Anion Gap 9 (5-15); BUN 33 mg/dL (7-18); BUN/Creat Ratio 8.3 RATIO (10-20); Calcium,Total 7.4 mg/dL (8.5-10.1); Chloride 109 mmol/L (98-107); Creatinine, Serum 3.96 mg/dL (0.55-1.02); EST Glomerular Filtration Rate 13 mL/min (>60); Est Glom Filt Rate - Afr Amer 16 mL/min (>60); Estimated Creatinine Clearance 15.63 ml/min; Glucose 174 mg/dL (74-106); Potassium 4.4 mmol/L (3.5-5.1); Sodium Level 137 mmol/L (136-145)
--- NOTE | 2020-11-13 14:01 | PCM.PROGNOTE ---
Patient Problems: Active and Suspected Problems Diabetic foot ulcer (Acute) Foot ulcer, left (Acute) Cellulitis of left foot (Acute) Subjective: Patient was seen today for follow up on left 1st toe. Patient had MRI done today. Patient resting in bed, no complaints of fever, chills, nausea or vomiting. She is asking if she can go home today. - Physical Exam Vitals/I&O's: Vital Signs Temp Pulse Resp BP Pulse Ox 98.5 F 76 18 109/62 95 11/13/20 09:13 11/13/20 09:13 11/13/20 09:13 11/13/20 09:13 11/13/20 09:13 Oxygen Delivery Method Room Air Weight: 110.5 kg Body Mass Index (BMI) 40.5 Finger Stick Blood Glucose 269 Intake and Output for Last 24 Hours 11/11/20 11/12/20 11/13/20 23:59 23:59 23:59 Intake Total 290 / 290 5640.66 / 6315.66 3281.25 / 3281.25 Balance 290 / 290 5640.66 / 6315.66 3281.25 / 3281.25 General: Alert, Oriented x3, Cooperative, No apparent distress Extremities: No cyanosis, Capillary Refill Less than 3 Seconds, No Calf Tenderness, Peripheral Pulses Normal, - - Left 1st toe with some mild erythema and some edema localized to the toe, there is healed ulceration to the plantar 1st toe with no drainage, no maloder, no necrosis, no fluctuance, no crepitus, no visible abscess, no evidence of ischemia to the foot. Psych/Mental Status: Appropriate, Alert and oriented to time, place, person, mood and affect Microbiology Past 72 Hours 11/12/20 07:30 Wound - Toe Gram Stain - Final 11/12/20 07:30 Wound - Toe Wound Culture - Preliminary Coag Negative Staph Laboratory Results 11/12/20 16:31: POC Glucose 101 11/12/20 19:12: POC Glucose 115 H 11/12/20 20:55: POC Glucose 86 11/12/20 21:16: Vancomycin Trough 49.0 H 11/13/20 05:54: WBC 15.1 H, RBC 3.91 L, Hgb 11.6 L, Hct 36.6 L, MCV 93.6, MCH 29.7, MCHC 31.7 L, RDW Std Deviation 47.8 H, RDW Coeff of Brea 14.1, Plt Count 158, MPV 9.8, Immature Gran % (Auto) 0.300, Neut % (Auto) 74.0 H, Lymph % (Auto) 16.6 L, [place] % (Auto) 6.8, Eos % (Auto) 2.0, Baso % (Auto) 0.3, Absolute Neuts (auto) 11.2 H, Absolute Lymphs (auto) 2.52, Nucleated RBC % 0 11/13/20 05:54: Sodium 139, Potassium 4.2, Chloride 110 H, Carbon Dioxide 23.0, Anion Gap 6, BUN 30 H, Creatinine 3.34 H, Estim Creat Clear Calc 18.54, Est GFR (MDRD) Af Amer 19 L, Est GFR (MDRD) Non-Af 16 L, BUN/Creatinine Ratio 9.0 L, Glucose 113 H, Calcium 7.2 L 11/13/20 06:35: POC Glucose 86 11/13/20 10:55: POC Glucose 188 H 11/13/20 13:13: Sodium 137, Potassium 4.4, Chloride 109 H, Carbon Dioxide 19.0 L, Anion Gap 9, BUN 33 H, Creatinine 3.96 H, Estim Creat Clear Calc 15.63, Est GFR (MDRD) Af Amer 16 L, Est GFR (MDRD) Non-Af 13 L, BUN/Creatinine Ratio 8.3 L, Glucose 174 H, Calcium 7.4 L Current Medications Acetaminophen (Acetaminophen 325 Mg Tablet) 650 mg PO Q6H PRN PRN PRN Reason: Pain Score 1-10/Temp > 100.7 F Last Admin: 11/12/20 15:56 Dose: 650 mg Documented by: Albuterol Sulfate (Albuterol 2.5 Mg/3 Ml Vial.Neb.) 2.5 mg INHALATION Q4H PRN PRN PRN Reason: SOB &/OR WHEEZING Last Admin: 11/13/20 07:16 Dose: 2.5 mg Documented by: Atorvastatin Calcium (Atorvastatin Calcium 80 Mg Tablet) 80 mg PO QHS [facility] Last Admin: 11/12/20 21:13 Dose: 80 mg Documented by: Duloxetine HCl (Duloxetine Hcl 60 Mg Capsule) 60 mg PO DAILY@1800 [facility] Last Admin: 11/12/20 17:16 Dose: 60 mg Documented by: Enoxaparin Sodium (Enoxaparin 40 Mg/0.4 Ml Syringe) 40 mg SC DAILY [facility] Last Admin: 11/13/20 09:13 Dose: 40 mg Documented by: Ergocalciferol (Ergocalciferol 50,000 Unit Capsule) 50,000 unit PO Q7D [facility] Hydroxyzine Pamoate (Hydroxyzine Yarely 25 Mg Capsule) 100 mg PO QHS PRN PRN PRN Reason: ANXIETY Sodium Chloride () 250 mls @ 15 mls/hr IV .[id number] PRN PRN Reason: Saline Flush Last Infusion: 11/13/20 06:15 Dose: 0 mls/hr Documented by: Sodium Chloride () 250 mls @ 15 mls/hr IV .[id number] PRN PRN Reason: Additional IVPB Infusion Vancomycin IV Pharmacy to Dose (1 ea/ Sodium Chloride) 500 mls @ 250 mls/hr IV X1 PRN; Protocol PRN Reason: Rx to Dose Piperacillin Sod/Tazobactam (Sod 3.375 gm/ Sodium Chloride) 50 mls @ 12.5 mls/hr IV Q8 [facility] Last Infusion: 11/13/20 09:45 Dose: Infused Documented by: Insulin Glargine (Insulin Glargine 100 Units/Ml Pen) 100 units SC DAILY [facility] Last Admin: 11/13/20 09:15 Dose: Not Given Documented by: Insulin Human Lispro (Insulin Lispro 100 Unit/Ml Insuln.Pen) 0 unit SC [facility]; Protocol Last Admin: 11/13/20 10:56 Dose: 2 u Documented by: L-Arginine/L-Glutamine/Calcium HMB (Rip (Unflavored) Packet) 1 packet PO BIDCM [facility] Last Admin: 11/13/20 09:14 Dose: Not Given Documented by: Levothyroxine Sodium (Levothyroxine 25 Mcg Tablet) 25 mcg PO DAILY@0600 [facility] Last Admin: 11/13/20 06:36 Dose: 25 mcg Documented by: Losartan Potassium (Losartan Potassium 50 Mg Tablet) 50 mg PO DAILY [facility] Last Admin: 11/12/20 09:36 Dose: 50 mg Documented by: Morphine Sulfate (Morphine 2 Mg/Ml Syringe) 2 mg IV Q3H PRN PRN PRN Reason: Pain Score 6-10 Last Admin: 11/12/20 08:07 Dose: 2 mg Documented by: Multivitamins/Minerals (Multivitamins,Ther W-Minerals Tablet) 1 tablet PO DAILY@0800 [facility] Last Admin: 11/13/20 09:14 Dose: 1 tablet Documented by: Ondansetron HCl (Ondansetron 4 Mg/2 Ml Vial) 4 mg IV Q8H PRN PRN PRN Reason: NAUSEA/VOMITING Last Admin: 11/12/20 19:09 Dose: 4 mg Documented by: Oxycodone HCl (Oxycodone 5 Mg Tablet) 5 mg PO Q4H PRN PRN PRN Reason: Pain Score 4-5 Last Admin: 11/12/20 05:41 Dose: 5 mg Documented by: Pantoprazole Sodium (Pantoprazole Sodium 20 Mg Tablet) 20 mg PO BID [facility] Last Admin: 11/13/20 09:14 Dose: 20 mg Documented by: Polysaccharide Iron Complex (Iron Polysaccharide Complex 150 Mg Capsule) 150 mg PO DAILYCM [facility] Last Admin: 11/13/20 09:14 Dose: 150 mg Documented by: Pregabalin (Pregabalin 50 Mg Capsule) 100 mg PO BID [facility] Last Admin: 11/12/20 21:12 Dose: 100 mg Documented by: Sodium Chloride (0.9% Saline Lock 10 Ml Syringe) 10 - 40 ml IV UD PRN PRN Reason: SALINE FLUSH Last Admin: 11/12/20 08:07 Dose: 10 ml Documented by: Trazodone HCl (Trazodone 50 Mg Tablet) 100 mg PO QHS [facility] Last Admin: 11/12/20 23:45 Dose: Not Given Documented by: Medical Necessity - Tobacco Use Smoking Status: Current every day smoker Assessment/Plan All Active Problems Osteomyelitis of toe of right foot (Resolved) Skin ulcer of left great toe with fat layer exposed (Acute) Diabetic foot ulcer (Acute) Foot ulcer, left (Acute) Cellulitis of left foot (Acute) Ulceration down to subcutaneous tissue left 1st toe w/ early osteomyelitis to distal phalanx Diabetes with peripheral neuropathy Hx of previous toe amputations Reviewed diagnostic data. There has been noted improvement to left 1st toe - ulceration appears healed at this time, there is some residual mild erythema and edema localized to the toe but does appear improved. There is no drainage, no necrosis, no maloder, no visible abscess. Culture reviewed and growing coag neg staph, patient on IV antibiotic therapy at this time. Blood cultures pending. Amputation vs nonsurgical/antibiotic care discussed. Wound is healed at this time and toe is improved on antibiotics, however it was noted her creatinine was elevated on repeat BMP. Patient would like to save toe if possible. Infectious Disease/Dr. Lorenzo has been consulted. Although wound is healed recommend continuing with daily dressing changes to keep the toe protected to help prevent ulcer recurrence. Applied hydrogel and gauze dressing - change daily - when patient goes home do daily dressing changes using Aquacel Ag and gauze daily. Keep toe offloaded at all times. Use offloading surgical shoe when all weightbearing on left foot. Limit weightbearing on left foot as much as possible. Heel weightbearing only left foot. Podiatry will continue to follow while in hospital, otherwise patient to follow up with Dr. Guillen in clinic within 1 week of discharge.
--- NOTE | 2020-11-13 15:22 | PCM.HP.ID ---
Problem List (1) Osteomyelitis Status: Acute Reason for Consult: osteo Consulted by: Dr. Vergara History of Present Illness: The patient is a 49 year old F with diabetic neuropathy, recurrent osteo, presented to ED 11/11 with L 1st toe pain, redness, ulcer, fever. No recent abx. Admitted on vanc/zosyn, seen by podiatry. Had high vanc level last night, developed SEUN, then MRI done with contrast this AM. Feeling ok, fever resolved. Full ROS performed and neg except as noted above. - Medical History Past Medical History (Chronic Problems): Chronic Problems Meniere disease (Chronic) Chronic ulcer of right foot with fat layer exposed (Chronic) Type 2 diabetes mellitus with diabetic polyneuropathy (Chronic) Hammer toe of right foot (Chronic) Obesity (BMI 30-39.9) (Chronic) Vertigo (Chronic) Hyperlipidemia (Chronic) Fibromyalgia (Chronic) Depression with anxiety (Chronic) Allergies/Adverse Reactions: Allergies clindamycin Allergy (Verified 11/11/20 19:37) Hives erythromycin base [From E-Mycin] Allergy (Verified 11/11/20 19:37) Hives Home Medications: Ambulatory Orders Medication Instructions Recorded Hydroxyzine Pamoate [Vistaril] 100 mg PO QHS PRN PRN 05/18/19 traZODone [Desyrel] 100 - 200 mg PO QHS 06/12/19 Albuterol Inhaler [Ventolin Hfa] 1 - 2 puff INHALATION Q6H PRN PRN 08/30/19 Atorvastatin Calcium [Lipitor] 80 mg PO QHS 08/30/19 Dulaglutide [Trulicity] 0.75 mg SQ WE 08/30/19 Duloxetine HCl 60 mg PO DAILY@1800 03/21/20 Losartan Potassium [Cozaar] 50 mg PO DAILY 03/21/20 Multivitamin with Minerals 1 tab PO DAILY 03/21/20 [Multiple Vitamin] Pregabalin [Lyrica] 100 mg PO BID 03/21/20 Acetaminophen [Tylenol Tablet] 650 mg PO Q6H PRN PRN tab 03/24/20 Ergocalciferol [Vitamin D] 50,000 unit PO WE 10/17/20 Insulin Degludec [Tresiba 100 unit SQ DAILY 10/17/20 Flextouch U-100] Iron Polysaccharide Complex 150 mg PO DAILY 11/11/20 [Ferrex 150] Levothyroxine [Synthroid] 25 mcg PO DAILY 11/11/20 Pantoprazole Sodium [Protonix] 20 mg PO BID 11/11/20 - Social History Tobacco Use: cigarettes Vital Signs Temp Pulse Resp BP Pulse Ox 98.3 F 86 18 128/68 H 96 11/13/20 15:13 11/13/20 15:13 11/13/20 15:13 11/13/20 15:13 11/13/20 15:13 Oxygen Delivery Method Room Air Weight: 110.5 kg Body Mass Index (BMI) 40.5 Finger Stick Blood Glucose 269 Microbiology Past 72 Hours 11/12/20 07:30 Gram Stain - Final Wound - Toe Wound Culture - Preliminary Coag Negative Staph Laboratory Tests Past 24 Hrs 11/12/20 11/13/20 11/13/20 21:16 05:54 05:54 WBC 15.1 H RBC 3.91 L Hgb 11.6 L Hct 36.6 L MCV 93.6 MCH 29.7 MCHC 31.7 L RDW Std Deviation 47.8 H RDW Coeff of Brea 14.1 Plt Count 158 MPV 9.8 Immature Gran % (Auto) 0.300 Neut % (Auto) 74.0 H Lymph % (Auto) 16.6 L [place] % (Auto) 6.8 Eos % (Auto) 2.0 Baso % (Auto) 0.3 Absolute Neuts (auto) 11.2 H Absolute Lymphs (auto) 2.52 Nucleated RBC % 0 Sodium 139 Potassium 4.2 Chloride 110 H Carbon Dioxide 23.0 Anion Gap 6 BUN 30 H Creatinine 3.34 H Estim Creat Clear Calc 18.54 Est GFR (MDRD) Af Amer 19 L Est GFR (MDRD) Non-Af 16 L BUN/Creatinine Ratio 9.0 L Glucose 113 H Calcium 7.2 L Vancomycin Trough 49.0 H 11/13/20 13:13 WBC RBC Hgb Hct MCV MCH MCHC RDW Std Deviation RDW Coeff of Brea Plt Count MPV Immature Gran % (Auto) Neut % (Auto) Lymph % (Auto) [place] % (Auto) Eos % (Auto) Baso % (Auto) Absolute Neuts (auto) Absolute Lymphs (auto) Nucleated RBC % Sodium 137 Potassium 4.4 Chloride 109 H Carbon Dioxide 19.0 L Anion Gap 9 BUN 33 H Creatinine 3.96 H Estim Creat Clear Calc 15.63 Est GFR (MDRD) Af Amer 16 L Est GFR (MDRD) Non-Af 13 L BUN/Creatinine Ratio 8.3 L Glucose 174 H Calcium 7.4 L Vancomycin Trough - Other Studies Radiology: [] reviewed Other Studies: [] Route of nutrition/ use of supplements: [] Nutritional Intake: [] IV Site: [] Carrillo Catheter: [] - Physical Exam General: Alert, Oriented x3, Cooperative, No apparent distress HEENT: Atraumatic, PERRLA, EOMI Neck: Supple, No Nodes Lungs: Clear to auscultation, Normal air movement Cardiovascular: Regular rate, Regular Rhythm Abdomen: Soft, Non Tender, Non-Distended Extremities: No edema Skin: Ulcer/ Wound - L 1st toe ulcer mild redness IV Site: Peripheral, without redness Musculoskeletal: No Tenderness to Palpation of Joints or Extremities Neurological: Cranial nerves II-XII grossly intact - Assessment/Plan Antibiotics: [] Assessment/Plan: [] Active and Suspected Problems Diabetic foot ulcer (Acute) Foot ulcer, left (Acute) Cellulitis of left foot (Acute) L 1st toe osteo with DM neuropathy - cx with CoNS so far. New SEUN after vanc trough of 49. Cr worse this afternoon, now at 4. Given GFR less than 20 this AM, not sure how she was able to get MRI this morning but she was given gadolinium. Concern for being high risk for development of nephrogenic systemic fibrosis. Would consult neph urgently for eval for dialysis to try to clear the contrast. Will stop vanc, repeat level to be done tonight. Change zosyn to ceftriaxone. Will follow, thank you, spoke with Dr. Vergara.
[2020-11-13] MEDS: Acetaminophen 325 MG Tablet 650 MG PO (16:21)
[2020-11-13 16:31] LABS: Bedside Glucose 200 mg/dL (70-110)
--- NOTE | 2020-11-13 16:57 | US_ITS ---
STUDY: RENAL ULTRASOUND - COMPLETE REASON FOR EXAM: Female, 49 years old. Elevated BUN/creatinine TECHNIQUE: Ultrasound evaluation of the kidneys was performed with real-time and static arteaga-scale imaging. COMPARISON: None. FINDINGS: RIGHT KIDNEY: Normal location of the right kidney, which is normal in size. The right kidney measures 11.9 x 5.8 x 6.0 cm. There is a normal cortex of the right kidney. The renal cortex measures 2.7 cm. There is no right renal mass or cyst. There are no right renal calculi. There is no right hydronephrosis. DISTAL RIGHT URETER: There is non-visualization of the distal right ureter. There is no demonstrated right ureterovesical junction calculus. There is a visualized right ureteral jet. LEFT KIDNEY: Normal location of the left kidney, which is normal in size. The left kidney measures 11.6 x 6.6 x 7.1 cm. There is a normal cortex of the left kidney. The renal cortex measures 2.2 cm. There is no left renal mass or cyst. There are no left renal calculi. There is no left hydronephrosis. DISTAL LEFT URETER: There is non-visualization of the distal left ureter. There is no demonstrated left ureterovesical junction calculus. There is a visualized left ureteral jet. AORTA: There is no elongation or tortuosity of the abdominal aorta. I.V.C.: The IVC is patent. BLADDER: The bladder is incompletely distended US/Kidney and Bladder IMPRESSION: No suspicious sonographic findings Electronically Signed: Sony Soria MD at 19:21 EST , Service support ,
[2020-11-13] MEDS: 0.9% Normal Saline 1,000 ML 125 ML IV (16:58)
[2020-11-13] MEDS: DULoxetine Hcl 60 MG Capsule PO (18:15)
--- NOTE | 2020-11-13 19:03 | PN_ITS ---
Patient Problems: Active and Suspected Problems Diabetic foot ulcer (Acute) Foot ulcer, left (Acute) Cellulitis of left foot (Acute) Osteomyelitis (Acute) Subjective: Patient was seen and examined today, her creatinine was elevated highly today over her creatinine yesterday, patient completed an MRI with contrast today which showed evidence of osteomyelitis in the left great toe. I talked with infectious diseases and nephrology today, nephrology feels that it is possible but unlikely that the MRI contrast is going to cause a problem but there is a possibility. Nephrology recommended administration of fluids along with monitoring of her labs. Ultrasound of the kidneys and bladder was recommended as well as a UA with urinary sodium and creatinine. Patient is aware of her elevated creatinine today. I also talked with podiatry about her medical care. Objective: General: Alert, Oriented x3, Cooperative, No apparent distress, Well developed HEENT: Atraumatic, PERRLA, EOMI, Normocephalic Oral: Moist Mucosa Neck: Supple, No JVD, Trachea Midline, Thyroid Normal Size and Texture Lungs: Clear to auscultation, Normal air movement, No rhonchi, No wheeze, No rales Cardiovascular: Regular rate, Regular Rhythm, Normal S1, Normal S2, No murmurs, PMI Normal, No rub noted, No Gallop Abdomen: Bowel Sounds Present, Soft, Non Tender, Non-Distended Extremities: No clubbing, No cyanosis, No edema, Capillary Refill Less than 3 Seconds Skin: No rashes, No breakdown Musculoskeletal: No Tenderness to Palpation of Joints or Extremities Neurological: Cranial nerves II-XII grossly intact, Neuro grossly intact Psych/Mental Status: Normal Affect, Appropriate, Alert and oriented to time, place, person, mood and affect - Physical Exam Vitals/I&O's: Vital Signs Temp Pulse Resp BP Pulse Ox 98.3 F 86 18 128/68 H 96 11/13/20 15:13 11/13/20 15:13 11/13/20 15:13 11/13/20 15:13 11/13/20 15:13 Oxygen Delivery Method Room Air Weight: 110.5 kg Body Mass Index (BMI) 40.5 Finger Stick Blood Glucose 269 Intake and Output for Last 24 Hours 11/11/20 11/12/20 11/13/20 23:59 23:59 23:59 Intake Total 290 / 290 5640.66 / 6315.66 4967.08 / 4967.08 Balance 290 / 290 5640.66 / 6315.66 4967.08 / 4967.08 Microbiology Past 72 Hours 11/12/20 07:30 Wound - Toe Gram Stain - Final 11/12/20 07:30 Wound - Toe Wound Culture - Preliminary Coag Negative Staph Laboratory Results 11/12/20 19:12: POC Glucose 115 H 11/12/20 20:55: POC Glucose 86 11/12/20 21:16: Vancomycin Trough 49.0 H 11/13/20 05:54: WBC 15.1 H, RBC 3.91 L, Hgb 11.6 L, Hct 36.6 L, MCV 93.6, MCH 29.7, MCHC 31.7 L, RDW Std Deviation 47.8 H, RDW Coeff of Brea 14.1, Plt Count 158, MPV 9.8, Immature Gran % (Auto) 0.300, Neut % (Auto) 74.0 H, Lymph % (Auto) 16.6 L, [place] % (Auto) 6.8, Eos % (Auto) 2.0, Baso % (Auto) 0.3, Absolute Neuts (auto) 11.2 H, Absolute Lymphs (auto) 2.52, Nucleated RBC % 0 11/13/20 05:54: Sodium 139, Potassium 4.2, Chloride 110 H, Carbon Dioxide 23.0, Anion Gap 6, BUN 30 H, Creatinine 3.34 H, Estim Creat Clear Calc 18.54, Est GFR (MDRD) Af Amer 19 L, Est GFR (MDRD) Non-Af 16 L, BUN/Creatinine Ratio 9.0 L, Glucose 113 H, Calcium 7.2 L 11/13/20 06:35: POC Glucose 86 11/13/20 10:55: POC Glucose 188 H 11/13/20 13:13: Sodium 137, Potassium 4.4, Chloride 109 H, Carbon Dioxide 19.0 L , Anion Gap 9, BUN 33 H, Creatinine 3.96 H, Estim Creat Clear Calc 15.63, Est GFR (MDRD) Af Amer 16 L, Est GFR (MDRD) Non-Af 13 L, BUN/Creatinine Ratio 8.3 L, Glucose 174 H, Calcium 7.4 L 11/13/20 16:18: POC Glucose 200 H Current Medications Acetaminophen (Acetaminophen 325 Mg Tablet) 650 mg PO Q6H PRN PRN PRN Reason: Pain Score 1-10/Temp > 100.7 F Last Admin: 11/13/20 16:21 Dose: 650 mg Documented by: Albuterol Sulfate (Albuterol 2.5 Mg/3 Ml Vial.Neb.) 2.5 mg INHALATION Q4H PRN PRN PRN Reason: SOB &/OR WHEEZING Last Admin: 11/13/20 07:16 Dose: 2.5 mg Documented by: Atorvastatin Calcium (Atorvastatin Calcium 80 Mg Tablet) 80 mg PO QHS [facility] Last Admin: 11/12/20 21:13 Dose: 80 mg Documented by: Duloxetine HCl (Duloxetine Hcl 60 Mg Capsule) 60 mg PO DAILY@1800 [facility] Last Admin: 11/13/20 18:15 Dose: 60 mg Documented by: Ergocalciferol (Ergocalciferol 50,000 Unit Capsule) 50,000 unit PO Q7D [facility] Hydroxyzine Pamoate (Hydroxyzine Yarely 25 Mg Capsule) 100 mg PO QHS PRN PRN PRN Reason: ANXIETY Sodium Chloride () 250 mls @ 15 mls/hr IV .[id number] PRN PRN Reason: Saline Flush Last Infusion: 11/13/20 06:15 Dose: 0 mls/hr Documented by: Sodium Chloride () 250 mls @ 15 mls/hr IV .[id number] PRN PRN Reason: Additional IVPB Infusion Ceftriaxone Sodium 2 gm/ (Sodium Chloride) 50 mls @ 100 mls/hr IV Q24 ASHLEY Sodium Chloride () 1,000 mls @ 125 mls/hr IV .Q8H [facility] Last Infusion: 11/13/20 18:15 Dose: 125 mls/hr Documented by: Insulin Glargine (Insulin Glargine 100 Units/Ml Pen) 100 units SC DAILY [facility] Last Admin: 11/13/20 09:15 Dose: Not Given Documented by: Insulin Human Lispro (Insulin Lispro 100 Unit/Ml Insuln.Pen) 0 unit SC ACHS [facility]; Protocol Last Admin: 11/13/20 16:19 Dose: 4 u Documented by: L-Arginine/L-Glutamine/Calcium HMB (Rip (Unflavored) Packet) 1 packet PO BIDCM [facility] Last Admin: 11/13/20 16:19 Dose: Not Given Documented by: Levothyroxine Sodium (Levothyroxine 25 Mcg Tablet) 25 mcg PO DAILY@0600 [facility] Last Admin: 11/13/20 06:36 Dose: 25 mcg Documented by: Losartan Potassium (Losartan Potassium 50 Mg Tablet) 50 mg PO DAILY [facility] Last Admin: 11/12/20 09:36 Dose: 50 mg Documented by: Morphine Sulfate (Morphine 2 Mg/Ml Syringe) 2 mg IV Q3H PRN PRN PRN Reason: Pain Score 6-10 Last Admin: 11/12/20 08:07 Dose: 2 mg Documented by: Multivitamins/Minerals (Multivitamins,Ther W-Minerals Tablet) 1 tablet PO DAILY@0800 [facility] Last Admin: 11/13/20 09:14 Dose: 1 tablet Documented by: Ondansetron HCl (Ondansetron 4 Mg/2 Ml Vial) 4 mg IV Q8H PRN PRN PRN Reason: NAUSEA/VOMITING Last Admin: 11/12/20 19:09 Dose: 4 mg Documented by: Oxycodone HCl (Oxycodone 5 Mg Tablet) 5 mg PO Q4H PRN PRN PRN Reason: Pain Score 4-5 Last Admin: 11/12/20 05:41 Dose: 5 mg Documented by: Pantoprazole Sodium (Pantoprazole Sodium 20 Mg Tablet) 20 mg PO BID [facility] Last Admin: 11/13/20 09:14 Dose: 20 mg Documented by: Polysaccharide Iron Complex (Iron Polysaccharide Complex 150 Mg [facility]apsule) [facility] Last Admin: 11/13/20 09:14 Dose: 150 mg Documented by: Pregabalin (Pregabalin 50 Mg Capsule) 100 mg PO BID [facility] Last Admin: 11/12/20 21:12 Dose: 100 mg Documented by: Sodium Chloride (0.9% Saline Lock 10 Ml Syringe) 10 - 40 ml IV UD PRN PRN Reason: SALINE FLUSH Last Admin: 11/12/20 08:07 Dose: 10 ml Documented by: Trazodone HCl (Trazodone 50 Mg Tablet) 100 mg PO QHS [facility] Last Admin: 11/12/20 23:45 Dose: Not Given Documented by: Medical Necessity - Tobacco Use Smoking Status: Current every day smoker Assessment/Plan All Active Problems Osteomyelitis of toe of right foot (Resolved) Skin ulcer of left great toe with fat layer exposed (Acute) Diabetic foot ulcer (Acute) Foot ulcer, left (Acute) Cellulitis of left foot (Acute) Osteomyelitis (Acute) #1 cellulitis of the left great toe with osteomyelitis-secondary to type 2 diabetes with polyneuropathy-ID has changed her antibiotic coverage at this time, patient's vancomycin was stopped #2 cellulitis of the left foot-again patient is on broad-spectrum antibiotics #3 type 2 diabetes #4 diabetic neuropathy #5 hyperlipidemia #6 acute kidney injury secondary to probable ATN nephrology will see the patient, patient will have a renal ultrasound performed tonight, she will receive IV fluids and labs will be rechecked tomorrow Inpatient E&M: 73449 Subs Hosp L2
[2020-11-13] MEDS: traZODone 50 MG Tablet 100 MG PO (21:26)
[2020-11-13] MEDS: Atorvastatin Calcium 80 MG Tablet PO (21:27)
[2020-11-13 21:35] LABS: Bedside Glucose 260 mg/dL (70-110)
[2020-11-14] VITALS (11 sets, daily range): BP systolic 124–155; BP diastolic 65–94; PULSE 74–93; RESP 14–18; TEMP 36.4–37; O2SAT 96–99
[2020-11-14] MEDS: 0.9% Normal Saline 1,000 ML 125 ML IV ×2 (01:28→09:38)
[2020-11-14 04:52] LABS: Color, Urine Yellow (Yellow); Glucose, Dipstick 50 mg/dl (Normal); Ketone-Dipstick Negative (Negative); Leukocyte Esterase-Dipstick 500 /ul (Negative); Nitrite-Dipstick Negative (Negative); Occult Blood-Urine 25 /ul (Negative); Protein-Dipstick 100 mg/dl (Negative); Urine Bilirubin Dipstick Negative (Negative); Urine Clarity Cloudy (Clear); Urine Urobilinogen Normal (Normal)
[2020-11-14 05:08] LABS: Urine Sodium 60 mmol/L (Not Establ.)
[2020-11-14] MEDS: Insulin Lispro 100 UNIT/ML INSULN.PEN SC ×4 (06:48→21:09)
[2020-11-14] MEDS: Levothyroxine 25 MCG TABLET PO (06:48)
[2020-11-14 07:06] LABS: Bedside Glucose 207 mg/dL (70-110)
[2020-11-14 07:17] LABS: Absolute Lymphocyte Count 1.63 X10^3/uL (0.83-4.51); Absolute Neutrophil Count 9.7 X10^3/uL (2.0-7.7); Basophil# 0.05 X10^3/uL; Basophil% 0.4 % (0-1); Eosinophil# 0.28 X10^3/uL; Eosinophils% 2.2 % (0-5); Hematocrit 39.3 % (37-47); Hemoglobin 12.1 g/dL (12.0-15.0); Lymphocyte # 1.63 X10^3/ul (4.0); Lymphocyte % 12.9 % (19-41); Mean Corp Hgb Conc 30.8 g/dL (32-36); Mean Corpuscular Hgb 29.1 pg (27.0-32.0); Mean Corpuscular Volume 94.5 fL (81-99); Mean Platelet Vol. 10.6 fl (6.2-12.0); Monocyte# 0.98 X10^3/uL; Monocyte% 7.8 % (0-10); NRBC Flagged by Analyzer 0 % (0-5); Neutrophil # 9.65 X10^3/uL (2.7-7.7); Neutrophil % 76.3 % (47-70); Platelet Count 186 K/mm3 (150-450); RBC Distribution Width CV 13.8 % (11.6-14.6); RBC Distribution Width SD 48.2 fl (35.1-43.9); Red Blood Count 4.16 M/mm3 (4.2-5.4); White Blood Count 12.6 K/mm3 (4.4-11.0)
[2020-11-14 07:31] LABS: Anion Gap 8 (5-15); BUN 46 mg/dL (7-18); BUN/Creat Ratio 8.8 RATIO (10-20); Calcium,Total 7.4 mg/dL (8.5-10.1); Chloride 110 mmol/L (98-107); Creatinine, Serum 5.22 mg/dL (0.55-1.02); EST Glomerular Filtration Rate 9 mL/min (>60); Est Glom Filt Rate - Afr Amer 11 mL/min (>60); Estimated Creatinine Clearance 11.86 ml/min; Glucose 226 mg/dL (74-106); Potassium 4.7 mmol/L (3.5-5.1); Sodium Level 137 mmol/L (136-145)
[2020-11-14] MEDS: Iron Polysaccharide Complex 150 MG CAPSULE PO (08:30)
[2020-11-14] MEDS: Multivitamins,Ther W-Minerals Tablet 1 TABLET PO (08:31)
[2020-11-14] MEDS: Pantoprazole Sodium 20 MG Tablet PO ×2 (08:32→21:09)
[2020-11-14] MEDS: Albuterol 2.5 MG/3 ML VIAL.NEB. INHALATION (08:43)
--- NOTE | 2020-11-14 08:47 | PCM.PN.HOSP ---
Patient Problems: Active and Suspected Problems Diabetic foot ulcer (Acute) Foot ulcer, left (Acute) Cellulitis of left foot (Acute) Osteomyelitis (Acute) Reason for Visit: Follow-up on acute SEUN/cellulitis of the left foot/ulcer Subjective: Patient was seen and examined. She complains of feeling swollen. Her urine output according to her is fair; not accurately recorded. She denied any dizziness or palpitations. Discussed with nephrology, patient will be having kidney biopsy tomorrow Objective: Physical exam: General: Alert, Oriented x3, Cooperative, No apparent distress, Well developed HEENT: Atraumatic, PERRLA, EOMI, Normocephalic Oral: Moist Mucosa Neck: Supple, No JVD, Trachea Midline, Thyroid Normal Size and Texture Lungs: Clear to auscultation, Normal air movement, No rhonchi, No wheeze, No rales Cardiovascular: Regular rate, Regular Rhythm, Normal S1, Normal S2, No murmurs, PMI Normal, No rub noted, No Gallop Abdomen: Bowel Sounds Present, Soft, Non Tender, Non-Distended Extremities: No clubbing, No cyanosis, No edema, Capillary Refill Less than 3 Seconds Skin: No rashes, No breakdown Musculoskeletal: No Tenderness to Palpation of Joints or Extremities Neurological: Cranial nerves II-XII grossly intact, Neuro grossly intact Psych/Mental Status: Normal Affect, Appropriate, Alert and oriented to time, place, person, mood and affect Vitals/I&O's: Vital Signs Temp Pulse Resp BP Pulse Ox 98.6 F 77 14 139/68 H 96 11/14/20 03:25 11/14/20 07:00 11/14/20 03:25 11/14/20 03:25 11/14/20 03:25 Oxygen Delivery Method Room Air Weight: 110.5 kg Body Mass Index (BMI) 40.5 Finger Stick Blood Glucose 269 Intake and Output for Last 24 Hours 11/12/20 11/13/20 11/14/20 23:59 23:59 23:59 Intake Total 5640.66 / 6315.66 5687.08 / 5687.08 1142.08 / 1142.08 Balance 5640.66 / 6315.66 5687.08 / 5687.08 1142.08 / 1142.08 Microbiology Past 72 Hours 11/12/20 07:30 Wound - Toe Gram Stain - Final 11/12/20 07:30 Wound - Toe Wound Culture - Final Staphylococcus epidermidis 11/12/20 07:30 Wound - Toe Anaerobic Culture - Final No anaerobic bacteria isolated. Laboratory Results 11/13/20 06:35: POC Glucose 86 11/13/20 10:55: POC Glucose 188 H 11/13/20 13:13: Sodium 137, Potassium 4.4, Chloride 109 H, Carbon Dioxide 19.0 L, Anion Gap 9, BUN 33 H, Creatinine 3.96 H, Estim Creat Clear Calc 15.63, Est GFR (MDRD) Af Amer 16 L, Est GFR (MDRD) Non-Af 13 L, BUN/Creatinine Ratio 8.3 L, Glucose 174 H, Calcium 7.4 L 11/13/20 16:18: POC Glucose 200 H 11/13/20 21:24: POC Glucose 260 H 11/14/20 04:40: Urine Color Yellow, Urine Clarity Cloudy, Urine pH 6.0, Ur Specific [place] 1.010, Urine Protein 100 H, Urine Glucose (UA) 50 H, Urine Ketones Negative, Urine Occult Blood 25 H, Urine Nitrite Negative, Urine Bilirubin Negative, Urine Urobilinogen Normal, Ur Leukocyte Esterase 500 H 11/14/20 04:40: Ur Random Sodium 60, Urine Creatinine 39.10 11/14/20 06:05: WBC 12.6 H, RBC 4.16 L, Hgb 12.1, Hct 39.3, MCV 94.5, MCH 29.1, MCHC 30.8 L, RDW Std Deviation 48.2 H, RDW Coeff of Brea 13.8, Plt Count 186, MPV 10.6, Immature Gran % (Auto) 0.400, Neut % (Auto) 76.3 H, Lymph % (Auto) 12.9 L, [place] % (Auto) 7.8, Eos % (Auto) 2.2, Baso % (Auto) 0.4, Absolute Neuts (auto) 9.7 H, Absolute Lymphs (auto) 1.63, Nucleated RBC % 0 11/14/20 06:05: Sodium 137, Potassium 4.7, Chloride 110 H, Carbon Dioxide 19.0 L, Anion Gap 8, BUN 46 H, Creatinine 5.22 H, Estim Creat Clear Calc 11.86, Est GFR (MDRD) Af Amer 11 L, Est GFR (MDRD) Non-Af 9 L, BUN/Creatinine Ratio 8.8 L, Glucose 226 H, Calcium 7.4 L 11/14/20 06:47: POC Glucose 207 H Current Medications Acetaminophen (Acetaminophen 325 Mg Tablet) 650 mg PO Q6H PRN PRN PRN Reason: Pain Score 1-10/Temp > 100.7 F Last Admin: 11/13/20 16:21 Dose: 650 mg Documented by: Albuterol Sulfate (Albuterol 2.5 Mg/3 Ml Vial.Neb.) 2.5 mg INHALATION Q4H PRN PRN PRN Reason: SOB &/OR WHEEZING Last Admin: 11/14/20 08:43 Dose: 2.5 mg Documented by: Atorvastatin Calcium (Atorvastatin Calcium 80 Mg Tablet) 80 mg PO QHS [facility] Last Admin: 11/13/20 21:27 Dose: 80 mg Documented by: Duloxetine HCl (Duloxetine Hcl 60 Mg Capsule) 60 mg PO DAILY@1800 [facility] Last Admin: 11/13/20 18:15 Dose: 60 mg Documented by: Ergocalciferol (Ergocalciferol 50,000 Unit Capsule) 50,000 unit PO Q7D [facility] Hydroxyzine Pamoate (Hydroxyzine Yarely 25 Mg Capsule) 100 mg PO QHS PRN PRN PRN Reason: ANXIETY Sodium Chloride () 250 mls @ 15 mls/hr IV .[id number] PRN PRN Reason: Saline Flush Last Infusion: 11/13/20 06:15 Dose: 0 mls/hr Documented by: Sodium Chloride () 250 mls @ 15 mls/hr IV .[id number] PRN PRN Reason: Additional IVPB Infusion Ceftriaxone Sodium 2 gm/ (Sodium Chloride) 50 mls @ 100 mls/hr IV Q24 ASHLEY Sodium Chloride () 1,000 mls @ 125 mls/hr IV .Q8H [facility] Last Admin: 11/14/20 01:28 Dose: 125 mls/hr Documented by: Insulin Glargine (Insulin Glargine 100 Units/Ml Pen) 100 units SC DAILY [facility] Last Admin: 11/13/20 09:15 Dose: Not Given Documented by: Insulin Human Lispro (Insulin Lispro 100 Unit/Ml Insuln.Pen) 0 unit SC [facility]; Protocol Last Admin: 11/14/20 06:48 Dose: 4 u Documented by: L-Arginine/L-Glutamine/Calcium HMB ([facility] (Unflavored) Packet) [facility] Last Admin: 11/14/20 08:30 Dose: Not Given Documented by: Levothyroxine Sodium (Levothyroxine 25 Mcg Tablet) 25 mcg PO DAILY@0600 [facility] Last Admin: 11/14/20 06:48 Dose: 25 mcg Documented by: Loratadine (Loratadine 10 Mg Tablet) 10 mg PO DAILY PRN PRN PRN Reason: ALLERGIES Losartan Potassium (Losartan Potassium 50 Mg Tablet) 50 mg PO DAILY [facility] Last Admin: 11/12/20 09:36 Dose: 50 mg Documented by: Morphine Sulfate (Morphine 2 Mg/Ml Syringe) 2 mg IV Q3H PRN PRN PRN Reason: Pain Score 6-10 Last Admin: 11/12/20 08:07 Dose: 2 mg Documented by: Multivitamins/Minerals (Multivitamins,Ther W-Minerals Tablet) 1 tablet PO DAILY@0800 [facility] Last Admin: 11/14/20 08:31 Dose: 1 tablet Documented by: Nicotine (Nicotine 21 Mg Patch) 21 mg TD DAILY [facility] Last Admin: 11/14/20 08:33 Dose: 21 mg Documented by: Ondansetron HCl (Ondansetron 4 Mg/2 Ml Vial) 4 mg IV Q8H PRN PRN PRN Reason: NAUSEA/VOMITING Last Admin: 11/12/20 19:09 Dose: 4 mg Documented by: Oxycodone HCl (Oxycodone 5 Mg Tablet) 5 mg PO Q4H PRN PRN PRN Reason: Pain Score 4-5 Last Admin: 11/12/20 05:41 Dose: 5 mg Documented by: Pantoprazole Sodium (Pantoprazole Sodium 20 Mg Tablet) 20 mg PO BID [facility] Last Admin: 11/14/20 08:32 Dose: 20 mg Documented by: Polysaccharide Iron Complex (Iron Polysaccharide Complex 150 Mg Capsule) [facility] Last Admin: 11/14/20 08:30 Dose: 150 mg Documented by: Pregabalin (Pregabalin 50 Mg Capsule) 100 mg PO BID [facility] Last Admin: 11/12/20 21:12 Dose: 100 mg Documented by: Sodium Chloride (0.9% Saline Lock 10 Ml Syringe) 10 - 40 ml IV UD PRN PRN Reason: SALINE FLUSH Last Admin: 11/12/20 08:07 Dose: 10 ml Documented by: Trazodone HCl (Trazodone 50 Mg Tablet) 100 mg PO QHS ASHLEY Last Admin: 11/13/20 21:26 Dose: 100 mg Documented by: STROKE Vital Signs/Narrative: Vital Signs Pulse 11/14/20 07:00 77 Medical Necessity - Tobacco Use Smoking Status: Current every day smoker Assessment/Plan All Active Problems Osteomyelitis of toe of right foot (Resolved) Skin ulcer of left great toe with fat layer exposed (Acute) Diabetic foot ulcer (Acute) Foot ulcer, left (Acute) Cellulitis of left foot (Acute) Osteomyelitis (Acute) 1. Acute kidney injury, likely ATN vs AIN vs vancomycin side-effect Baseline Cr <1, Cr now >5 Kidney USG unremarkable Nephrology consulted, plan for kidney biopsy noted, serologies ordered Will repeat labs in am 2. Acute cellulitis/osteomyelitis of the left great toe, wound cultures growing staph epidermidis On IV ceftriaxone, podiatry and ID following 3. Type 2 DM complicated by diabetic neuropathy, BS fairly controlled Continue on Lantus and ISS Hold Lyrica and pregabalin 4. Hypothyroidism, continue on synthroid 5. Hypertension, controlled, continue to monitor Home losartan on hold 6. DVT PPx- SCDs - Lovenox on hold for biopsy [facility]: [id number]
--- NOTE | 2020-11-14 10:42 | PN.ID_ITS ---
Patient Problems: Active and Suspected Problems Diabetic foot ulcer (Acute) Foot ulcer, left (Acute) Cellulitis of left foot (Acute) Osteomyelitis (Acute) Subjective: Toe feels better, no fever, making urine, no n/v/d. - Physical Exam Vitals/I&O's: Vital Signs Temp Pulse Resp BP Pulse Ox 97.6 F L 86 18 155/94 H 99 11/14/20 08:50 11/14/20 08:50 11/14/20 08:50 11/14/20 08:50 11/14/20 08:50 Oxygen Delivery Method Room Air Weight: 110.5 kg Body Mass Index (BMI) 40.5 Finger Stick Blood Glucose 269 Intake and Output for Last 24 Hours 11/12/20 11/13/20 11/14/20 23:59 23:59 23:59 Intake Total 5640.66 / 6315.66 5687.08 / 5687.08 2192.08 / 2192.08 Balance 5640.66 / 6315.66 5687.08 / 5687.08 2192.08 / 2192.08 General: Alert, Cooperative, No apparent distress Lungs: Clear to auscultation, Normal air movement Cardiovascular: Regular rate, Regular Rhythm Abdomen: Soft, Non Tender, Non-Distended Skin: Ulcer/ Wound - toe wrapped Microbiology Past 72 Hours 11/12/20 07:30 Wound - Toe Gram Stain - Final 11/12/20 07:30 Wound - Toe Wound Culture - Final Staphylococcus epidermidis 11/12/20 07:30 Wound - Toe Anaerobic Culture - Final No anaerobic bacteria isolated. Laboratory Results 11/13/20 06:35: POC Glucose 86 11/13/20 10:55: POC Glucose 188 H 11/13/20 13:13: Sodium 137, Potassium 4.4, Chloride 109 H, Carbon Dioxide 19.0 L , Anion Gap 9, BUN 33 H, Creatinine 3.96 H, Estim Creat Clear Calc 15.63, Est GFR (MDRD) Af Amer 16 L, Est GFR (MDRD) Non-Af 13 L, BUN/Creatinine Ratio 8.3 L, Glucose 174 H, Calcium 7.4 L 11/13/20 16:18: POC Glucose 200 H 11/13/20 21:24: POC Glucose 260 H 11/14/20 04:40: Urine Color Yellow, Urine Clarity Cloudy, Urine pH 6.0, Ur Specific Malin 1.010, Urine Protein 100 H, Urine Glucose (UA) 50 H, Urine Ketones Negative, Urine Occult Blood 25 H, Urine Nitrite Negative, Urine Bilirubin Negative, Urine Urobilinogen Normal, Ur Leukocyte Esterase 500 H 11/14/20 04:40: Ur Random Sodium 60, Urine Creatinine 39.10 11/14/20 06:05: WBC 12.6 H, RBC 4.16 L, Hgb 12.1, Hct 39.3, MCV 94.5, MCH 29.1, MCHC 30.8 L, RDW Std Deviation 48.2 H, RDW Coeff of Brea 13.8, Plt Count 186, MPV 10.6, Immature Gran % (Auto) 0.400, Neut % (Auto) 76.3 H, Lymph % (Auto) 12.9 L, [place] % (Auto) 7.8, Eos % (Auto) 2.2, Baso % (Auto) 0.4, Absolute Neuts (auto) 9.7 H, Absolute Lymphs (auto) 1.63, Nucleated RBC % 0 11/14/20 06:05: Sodium 137, Potassium 4.7, Chloride 110 H, Carbon Dioxide 19.0 L , Anion Gap 8, BUN 46 H, Creatinine 5.22 H, Estim Creat Clear Calc 11.86, Est GFR (MDRD) Af Amer 11 L, Est GFR (MDRD) Non-Af 9 L, BUN/Creatinine Ratio 8.8 L, Glucose 226 H, Calcium 7.4 L 11/14/20 06:47: POC Glucose 207 H Current Medications Acetaminophen (Acetaminophen 325 Mg Tablet) 650 mg PO Q6H PRN PRN PRN Reason: Pain Score 1-10/Temp > 100.7 F Last Admin: 11/13/20 16:21 Dose: 650 mg Documented by: Albuterol Sulfate (Albuterol 2.5 Mg/3 Ml Vial.Neb.) 2.5 mg INHALATION Q4H PRN PRN PRN Reason: SOB &/OR WHEEZING Last Admin: 11/14/20 08:43 Dose: 2.5 mg Documented by: Atorvastatin Calcium (Atorvastatin Calcium 80 Mg Tablet) 80 mg PO QHS [facility] Last Admin: 11/13/20 21:27 Dose: 80 mg Documented by: Duloxetine HCl (Duloxetine Hcl 60 Mg Capsule) 60 mg PO DAILY@1800 [facility] Last Admin: 11/13/20 18:15 Dose: 60 mg Documented by: Ergocalciferol (Ergocalciferol 50,000 Unit Capsule) 50,000 unit PO Q7D [facility] Hydroxyzine Pamoate (Hydroxyzine Yarely 25 Mg Capsule) 100 mg PO QHS PRN PRN PRN Reason: ANXIETY Sodium Chloride () 250 mls @ 15 mls/hr IV .[id number] PRN PRN Reason: Saline Flush Last Infusion: 11/13/20 06:15 Dose: 0 mls/hr Documented by: Sodium Chloride () 250 mls @ 15 mls/hr IV .[id number] PRN PRN Reason: Additional IVPB Infusion Ceftriaxone Sodium 2 gm/ (Sodium Chloride) 50 mls @ 100 mls/hr IV Q24 [facility] Last Infusion: 11/14/20 09:44 Dose: Infused Documented by: Sodium Chloride () 1,000 mls @ 125 mls/hr IV .Q8H [facility] Last Admin: 11/14/20 09:38 Dose: 125 mls/hr Documented by: Insulin Glargine (Insulin Glargine 100 Units/Ml Pen) 100 units SC DAILY [facility] Last Admin: 11/14/20 09:38 Dose: 100 u Documented by: Insulin Human Lispro (Insulin Lispro 100 Unit/Ml Insuln.Pen) 0 unit [facility]; Protocol Last Admin: 11/14/20 06:48 Dose: 4 u Documented by: L-Arginine/L-Glutamine/Calcium HMB (Rip (Unflavored) Packet) 1 packet PO BIDCM [facility] Last Admin: 11/14/20 08:30 Dose: Not Given Documented by: Levothyroxine Sodium (Levothyroxine 25 Mcg Tablet) 25 mcg PO DAILY@0600 [facility] Last Admin: 11/14/20 06:48 Dose: 25 mcg Documented by: Loratadine (Loratadine 10 Mg Tablet) 10 mg PO DAILY PRN PRN PRN Reason: ALLERGIES Losartan Potassium (Losartan Potassium 50 Mg Tablet) 50 mg PO DAILY [facility] Last Admin: 11/12/20 09:36 Dose: 50 mg Documented by: Morphine Sulfate (Morphine 2 Mg/Ml Syringe) 2 mg IV Q3H PRN PRN PRN Reason: Pain Score 6-10 Last Admin: 11/12/20 08:07 Dose: 2 mg Documented by: Multivitamins/Minerals (Multivitamins,Ther W-Minerals Tablet) 1 tablet PO DAILY@0800 [facility] Last Admin: 11/14/20 08:31 Dose: 1 tablet Documented by: Nicotine (Nicotine 21 Mg Patch) 21 mg TD DAILY [facility] Last Admin: 11/14/20 08:33 Dose: 21 mg Documented by: Ondansetron HCl (Ondansetron 4 Mg/2 Ml Vial) 4 mg IV Q8H PRN PRN PRN Reason: NAUSEA/VOMITING Last Admin: 11/12/20 19:09 Dose: 4 mg Documented by: Oxycodone HCl (Oxycodone 5 Mg Tablet) 5 mg PO Q4H PRN PRN PRN Reason: Pain Score 4-5 Last Admin: 11/12/20 05:41 Dose: 5 mg Documented by: Pantoprazole Sodium (Pantoprazole Sodium 20 Mg Tablet) 20 mg PO BID [facility] Last Admin: 11/14/20 08:32 Dose: 20 mg Documented by: Polysaccharide Iron Complex (Iron Polysaccharide Complex 150 Mg Capsule) 150 mg PO DAILYCM [facility] Last Admin: 11/14/20 08:30 Dose: 150 mg Documented by: Pregabalin (Pregabalin 50 Mg Capsule) 100 mg PO BID [facility] Last Admin: 11/12/20 21:12 Dose: 100 mg Documented by: Sodium Chloride (0.9% Saline Lock 10 Ml Syringe) 10 - 40 ml IV UD PRN PRN Reason: SALINE FLUSH Last Admin: 11/12/20 08:07 Dose: 10 ml Documented by: Trazodone HCl (Trazodone 50 Mg Tablet) 100 mg PO QHS [facility] Last Admin: 11/13/20 21:26 Dose: 100 mg Documented by: Medical Necessity - Tobacco Use Smoking Status: Current every day smoker Route of nutrition/ use of supplements: [] Nutritional Intake: [] IV Site: [] Carrillo Catheter: [] - Assessment/Plan Antibiotics: [] Assessment/Plan: [] Active and Suspected Problems Diabetic foot ulcer (Acute) Foot ulcer, left (Acute) Cellulitis of left foot (Acute) L 1st toe osteo with DM neuropathy - cx with MSSE. New SEUN after vanc trough of 49. Cr worse this AM, neph consulted. Reported last night that the gadolinium-based contrast would not require dialysis. Cont ceftriaxone. Will follow
[2020-11-14 11:46] LABS: Bedside Glucose 255 mg/dL (70-110)
--- NOTE | 2020-11-14 13:04 | PCM.PROGNOTE ---
Patient Problems: Active and Suspected Problems Diabetic foot ulcer (Acute) Foot ulcer, left (Acute) Cellulitis of left foot (Acute) Osteomyelitis (Acute) Subjective: Patient was seen today for follow up on left 1st toe. She was resting in bed. She relates she feels swollen. Otherwise no other complaints, no complaints of f/c/n/v. - Physical Exam Vitals/I&O's: Vital Signs Temp Pulse Resp BP Pulse Ox 97.6 F L 80 18 155/94 H 99 11/14/20 08:50 11/14/20 11:00 11/14/20 08:50 11/14/20 08:50 11/14/20 08:50 Oxygen Delivery Method Room Air Weight: 110.5 kg Body Mass Index (BMI) 40.5 Finger Stick Blood Glucose 269 Intake and Output for Last 24 Hours 11/12/20 11/13/20 11/14/20 23:59 23:59 23:59 Intake Total 5640.66 / 6315.66 5687.08 / 5687.08 2794.58 / 2794.58 Balance 5640.66 / 6315.66 5687.08 / 5687.08 2794.58 / 2794.58 General: Alert, Oriented x3, Cooperative, No apparent distress Microbiology Past 72 Hours 11/12/20 07:30 Wound - Toe Gram Stain - Final 11/12/20 07:30 Wound - Toe Wound Culture - Final Staphylococcus epidermidis 11/12/20 07:30 Wound - Toe Anaerobic Culture - Final No anaerobic bacteria isolated. Laboratory Results 11/13/20 13:13: Sodium 137, Potassium 4.4, Chloride 109 H, Carbon Dioxide 19.0 L, Anion Gap 9, BUN 33 H, Creatinine 3.96 H, Estim Creat Clear Calc 15.63, Est GFR (MDRD) Af Amer 16 L, Est GFR (MDRD) Non-Af 13 L, BUN/Creatinine Ratio 8.3 L, Glucose 174 H, Calcium 7.4 L 11/13/20 16:18: POC Glucose 200 H 11/13/20 21:24: POC Glucose 260 H 11/14/20 04:40: Urine Color Yellow, Urine Clarity Cloudy, Urine pH 6.0, Ur Specific Eads 1.010, Urine Protein 100 H, Urine Glucose (UA) 50 H, Urine Ketones Negative, Urine Occult Blood 25 H, Urine Nitrite Negative, Urine Bilirubin Negative, Urine Urobilinogen Normal, Ur Leukocyte Esterase 500 H 11/14/20 04:40: Ur Random Sodium 60, Urine Creatinine 39.10 11/14/20 06:05: WBC 12.6 H, RBC 4.16 L, Hgb 12.1, Hct 39.3, MCV 94.5, MCH 29.1, MCHC 30.8 L, RDW Std Deviation 48.2 H, RDW Coeff of Brea 13.8, Plt Count 186, MPV 10.6, Immature Gran % (Auto) 0.400, Neut % (Auto) 76.3 H, Lymph % (Auto) 12.9 L, [place] % (Auto) 7.8, Eos % (Auto) 2.2, Baso % (Auto) 0.4, Absolute Neuts (auto) 9.7 H, Absolute Lymphs (auto) 1.63, Nucleated RBC % 0 11/14/20 06:05: Sodium 137, Potassium 4.7, Chloride 110 H, Carbon Dioxide 19.0 L, Anion Gap 8, BUN 46 H, Creatinine 5.22 H, Estim Creat Clear Calc 11.86, Est GFR (MDRD) Af Amer 11 L, Est GFR (MDRD) Non-Af 9 L, BUN/Creatinine Ratio 8.8 L, Glucose 226 H, Calcium 7.4 L 11/14/20 06:47: POC Glucose 207 H 11/14/20 11:35: POC Glucose 255 H Current Medications Acetaminophen (Acetaminophen 325 Mg Tablet) 650 mg PO Q6H PRN PRN PRN Reason: Pain Score 1-10/Temp > 100.7 F Last Admin: 11/13/20 16:21 Dose: 650 mg Documented by: Albuterol Sulfate (Albuterol 2.5 Mg/3 Ml Vial.Neb.) 2.5 mg INHALATION Q4H PRN PRN PRN Reason: SOB &/OR WHEEZING Last Admin: 11/14/20 08:43 Dose: 2.5 mg Documented by: Atorvastatin Calcium (Atorvastatin Calcium 80 Mg Tablet) 80 mg PO QHS [facility] Last Admin: 11/13/20 21:27 Dose: 80 mg Documented by: Duloxetine HCl (Duloxetine Hcl 60 Mg Capsule) 60 mg PO DAILY@1800 [facility] Last Admin: 11/13/20 18:15 Dose: 60 mg Documented by: Ergocalciferol (Ergocalciferol 50,000 Unit Capsule) 50,000 unit PO Q7D [facility] Hydroxyzine Pamoate (Hydroxyzine Yarely 25 Mg Capsule) 100 mg PO QHS PRN PRN PRN Reason: ANXIETY Sodium Chloride () 250 mls @ 15 mls/hr IV .[id number] PRN PRN Reason: Saline Flush Last Infusion: 11/13/20 06:15 Dose: 0 mls/hr Documented by: Sodium Chloride () 250 mls @ 15 mls/hr IV .[id number] PRN PRN Reason: Additional IVPB Infusion Ceftriaxone Sodium 2 gm/ (Sodium Chloride) 50 mls @ 100 mls/hr IV Q24 [facility] Last Infusion: 11/14/20 09:44 Dose: Infused Documented by: Insulin Glargine (Insulin Glargine 100 Units/Ml Pen) 100 units SC DAILY [facility] Last Admin: 11/14/20 09:38 Dose: 100 u Documented by: Insulin Human Lispro (Insulin Lispro 100 Unit/Ml Insuln.Pen) 0 unit SC ACHS [facility]; Protocol Last Admin: 11/14/20 11:37 Dose: 4 u Documented by: L-Arginine/L-Glutamine/Calcium HMB (Rip (Unflavored) Packet) 1 packet PO BIDCM [facility] Last Admin: 11/14/20 08:30 Dose: Not Given Documented by: Levothyroxine Sodium (Levothyroxine 25 Mcg Tablet) 25 mcg PO DAILY@0600 [facility] Last Admin: 11/14/20 06:48 Dose: 25 mcg Documented by: Loratadine (Loratadine 10 Mg Tablet) 10 mg PO DAILY PRN PRN PRN Reason: ALLERGIES Losartan Potassium (Losartan Potassium 50 Mg Tablet) 50 mg PO DAILY [facility] Last Admin: 11/12/20 09:36 Dose: 50 mg Documented by: Morphine Sulfate (Morphine 2 Mg/Ml Syringe) 2 mg IV Q3H PRN PRN PRN Reason: Pain Score 6-10 Last Admin: 11/12/20 08:07 Dose: 2 mg Documented by: Multivitamins/Minerals (Multivitamins,Ther W-Minerals Tablet) 1 tablet PO DAILY@0800 [facility] Last Admin: 11/14/20 08:31 Dose: 1 tablet Documented by: Nicotine (Nicotine 21 Mg Patch) 21 mg TD DAILY [facility] Last Admin: 11/14/20 08:33 Dose: 21 mg Documented by: Ondansetron HCl (Ondansetron 4 Mg/2 Ml Vial) 4 mg IV Q8H PRN PRN PRN Reason: NAUSEA/VOMITING Last Admin: 11/12/20 19:09 Dose: 4 mg Documented by: Oxycodone HCl (Oxycodone 5 Mg Tablet) 5 mg PO Q4H PRN PRN PRN Reason: Pain Score 4-5 Last Admin: 11/12/20 05:41 Dose: 5 mg Documented by: Pantoprazole Sodium (Pantoprazole Sodium 20 Mg Tablet) 20 mg PO BID [facility] Last Admin: 11/14/20 08:32 Dose: 20 mg Documented by: Polysaccharide Iron Complex (Iron Polysaccharide Complex 150 [facility]apsule) [facility] Last Admin: 11/14/20 08:30 Dose: 150 mg Documented by: Pregabalin (Pregabalin 50 Mg Capsule) 100 mg PO BID [facility] Last Admin: 11/12/20 21:12 Dose: 100 mg Documented by: Sodium Chloride (0.9% Saline Lock 10 Ml Syringe) 10 - 40 ml IV UD PRN PRN Reason: SALINE FLUSH Last Admin: 11/12/20 08:07 Dose: 10 ml Documented by: Trazodone HCl (Trazodone 50 Mg Tablet) 100 mg PO QHS [facility] Last Admin: 11/13/20 21:26 Dose: 100 mg Documented by: Medical Necessity - Tobacco Use Smoking Status: Current every day smoker Assessment/Plan All Active Problems Osteomyelitis of toe of right foot (Resolved) Skin ulcer of left great toe with fat layer exposed (Acute) Diabetic foot ulcer (Acute) Foot ulcer, left (Acute) Cellulitis of left foot (Acute) Osteomyelitis (Acute) Ulceration down to subcutaneous tissue left 1st toe w/ early osteomyelitis to distal phalanx Diabetes with peripheral neuropathy Hx of previous toe amputations SEUN Reviewed diagnostic data. MRI left foot has been reviewed. Left 1st toe ulceration appears healed at this time. There is no drainage, no necrosis, no maloder, no visible abscess. Culture reviewed and growing staph epi, patient on IV antibiotic therapy at this time. Blood cultures pending. Amputation vs nonsurgical/antibiotic care discussed. Wound is healed at this time and toe is improved on antibiotics. Infectious Disease/Dr. Lorenzo on consult. Although wound is healed recommend continuing with daily dressing changes to keep the toe protected to help prevent ulcer recurrence. Applied hydrogel and gauze dressing - change daily. Keep toe offloaded at all times. Use offloading surgical shoe when all weightbearing on left foot. Limit weightbearing on left foot as much as possible. Nephrology has been consulted for SEUN. Podiatry will continue to follow while in hospital.
--- NOTE | 2020-11-14 13:07 | NURSING ---
Was consulted on patient for wound to the left great toe. Dr Muniz states wound is now healed.
--- NOTE | 2020-11-14 14:46 | PCM.CONS.R ---
Consultation - Renal 11/14/20 PCP/ Referring MD: Requesting physician: [] Primary care physician: Dr. Shirley Garcia MD Reason for Consultation:: seun - History of Present Illness History of Present Illness: The patient is a 49 year old F w/pmh as below noted on November 11 with first toe pain redness ulcerations and fever and she was admitted for IV antibiotics. She was started on vancomycin and Zosyn and she was seen by podiatry. A trough vanco level was 49 and a creatinine was noted to increase to 5.2 today which prompted renal consult from normal range on admission. Patient was started yesterday on IV fluids but those were stopped because she felt that she developed puffiness in her hands and feet. She denies shortness of breath nausea vomiting diarrhea abdominal pain dysuria fever chills headache flank pain skin rashes hemoptysis hematochezia melena. Initial creatinine 3 days ago was 0.9 and today is 5.2. No other complaints today. - Allergies Allergies: Allergies clindamycin Allergy (Verified 11/11/20 19:37) Hives erythromycin base [From E-Mycin] Allergy (Verified 11/11/20 19:37) Hives - Current Medications Current Medications: Current Medications Acetaminophen (Acetaminophen 325 Mg Tablet) 650 mg PO Q6H PRN PRN PRN Reason: Pain Score 1-10/Temp > 100.7 F Last Admin: 11/13/20 16:21 Dose: 650 mg Documented by: Albuterol Sulfate (Albuterol 2.5 Mg/3 Ml Vial.Neb.) 2.5 mg INHALATION Q4H PRN PRN PRN Reason: SOB &/OR WHEEZING Last Admin: 11/14/20 08:43 Dose: 2.5 mg Documented by: Atorvastatin Calcium (Atorvastatin Calcium 80 Mg Tablet) 80 mg PO QHS [facility] Last Admin: 11/13/20 21:27 Dose: 80 mg Documented by: Duloxetine HCl (Duloxetine Hcl 60 Mg Capsule) 60 mg PO DAILY@1800 [facility] Last Admin: 11/13/20 18:15 Dose: 60 mg Documented by: Ergocalciferol (Ergocalciferol 50,000 Unit Capsule) 50,000 unit PO Q7D ASHLEY Hydroxyzine Pamoate (Hydroxyzine Yarely 25 Mg Capsule) 100 mg PO QHS PRN PRN PRN Reason: ANXIETY Sodium Chloride () 250 mls @ 15 mls/hr IV .[id number] PRN PRN Reason: Saline Flush Last Infusion: 11/13/20 06:15 Dose: 0 mls/hr Documented by: Sodium Chloride () 250 mls @ 15 mls/hr IV .[id number] PRN PRN Reason: Additional IVPB Infusion Ceftriaxone Sodium 2 gm/ (Sodium Chloride) 50 mls @ 100 mls/hr IV Q24 [facility] Last Infusion: 11/14/20 09:44 Dose: Infused Documented by: Insulin Glargine (Insulin Glargine 100 Units/Ml Pen) 100 units SC DAILY [facility] Last Admin: 11/14/20 09:38 Dose: 100 u Documented by: Insulin Human Lispro (Insulin Lispro 100 Unit/Ml Insuln.Pen) 0 unit SC ACHS [facility]; Protocol Last Admin: 11/14/20 11:37 Dose: 4 u Documented by: L-Arginine/L-Glutamine/Calcium HMB (Rip (Unflavored) Packet) 1 packet PO BIDCM [facility] Last Admin: 11/14/20 08:30 Dose: Not Given Documented by: Levothyroxine Sodium (Levothyroxine 25 Mcg Tablet) 25 mcg PO DAILY@0600 [facility] Last Admin: 11/14/20 06:48 Dose: 25 mcg Documented by: Loratadine (Loratadine 10 Mg Tablet) 10 mg PO DAILY PRN PRN PRN Reason: ALLERGIES Losartan Potassium (Losartan Potassium 50 Mg Tablet) 50 mg PO DAILY [facility] Last Admin: 11/12/20 09:36 Dose: 50 mg Documented by: Morphine Sulfate (Morphine 2 Mg/Ml Syringe) 2 mg IV Q3H PRN PRN PRN Reason: Pain Score 6-10 Last Admin: 11/12/20 08:07 Dose: 2 mg Documented by: Multivitamins/Minerals (Multivitamins,Ther W-Minerals Tablet) 1 tablet PO DAILY@0800 [facility] Last Admin: 11/14/20 08:31 Dose: 1 tablet Documented by: Nicotine (Nicotine 21 Mg Patch) 21 mg TD DAILY [facility] Last Admin: 11/14/20 08:33 Dose: 21 mg Documented by: Ondansetron HCl (Ondansetron 4 Mg/2 Ml Vial) 4 mg IV Q8H PRN PRN PRN Reason: NAUSEA/VOMITING Last Admin: 11/12/20 19:09 Dose: 4 mg Documented by: Oxycodone HCl (Oxycodone 5 Mg Tablet) 5 mg PO Q4H PRN PRN PRN Reason: Pain Score 4-5 Last Admin: 11/12/20 05:41 Dose: 5 mg Documented by: Pantoprazole Sodium (Pantoprazole Sodium 20 Mg Tablet) 20 mg PO BID [facility] Last Admin: 11/14/20 08:32 Dose: 20 mg Documented by: Polysaccharide Iron Complex (Iron Polysaccharide Complex 150 Mg Capsule) 150 mg PO DAILYCM [facility] Last Admin: 11/14/20 08:30 Dose: 150 mg Documented by: Pregabalin (Pregabalin 50 Mg Capsule) 100 mg PO BID [facility] Last Admin: 11/12/20 21:12 Dose: 100 mg Documented by: Sodium Chloride (0.9% Saline Lock 10 Ml Syringe) 10 - 40 ml IV UD PRN PRN Reason: SALINE FLUSH Last Admin: 11/12/20 08:07 Dose: 10 ml Documented by: Trazodone HCl (Trazodone 50 Mg Tablet) 100 mg PO QHS [facility] Last Admin: 11/13/20 21:26 Dose: 100 mg Documented by: - Past Medical History Past Medical History (Chronic Problems): Chronic Problems Meniere disease (Chronic) Chronic ulcer of right foot with fat layer exposed (Chronic) Type 2 diabetes mellitus with diabetic polyneuropathy (Chronic) Hammer toe of right foot (Chronic) Obesity (BMI 30-39.9) (Chronic) Vertigo (Chronic) Hyperlipidemia (Chronic) Fibromyalgia (Chronic) Depression with anxiety (Chronic) - Past Surgical History Surgical History: appendectomy, - - T+A, BLTL, appendectomy, right great toe amputation. Right second toe partial amputation. - Social History Smoking Status: Current every day smoker - Family History Maternal History Items: - - Thyroid disease. Paternal History Items: Asthma, - - Denies known paternal medical history including cardiac history. Review of Systems Eyes: Reports: - - negative unless noted in the HPI Patient Problems: Active and Suspected Problems Diabetic foot ulcer (Acute) Foot ulcer, left (Acute) Cellulitis of left foot (Acute) Osteomyelitis (Acute) - Physical Exam Vitals/I&O's: Vital Signs Temp Pulse Resp BP Pulse Ox 97.6 F L 80 18 155/94 H 99 11/14/20 08:50 11/14/20 11:00 11/14/20 08:50 11/14/20 08:50 11/14/20 08:50 Oxygen Delivery Method Room Air Weight: 110.5 kg Body Mass Index (BMI) 40.5 Finger Stick Blood Glucose 269 Intake and Output for Last 24 Hours 11/12/20 11/13/20 11/14/20 23:59 23:59 23:59 Intake Total 5640.66 / 6315.66 5687.08 / 5687.08 2794.58 / 2794.58 Balance 5640.66 / 6315.66 5687.08 / 5687.08 2794.58 / 2794.58 General: Alert, Cooperative HEENT: Atraumatic, EOMI Oral: Moist Mucosa Neck: Supple, Trachea Midline Lungs: Clear to auscultation, Normal air movement Cardiovascular: Regular rate, Regular Rhythm, Normal S1, Normal S2 Abdomen: Bowel Sounds Present, Soft, Obese Extremities: No edema Skin: No rashes, - - muyltiple toe amputations Microbiology Past 72 Hours 11/11/20 19:55 Blood Culture (Wb) - Left Forearm Blood Culture - Preliminary No growth in 48 hours. 11/11/20 20:10 Blood Culture (Wb) - Anticubital Right Blood Culture - Preliminary No growth in 48 hours. 11/12/20 07:30 Wound - Toe Gram Stain - Final 11/12/20 07:30 Wound - Toe Wound Culture - Final Staphylococcus epidermidis 11/12/20 07:30 Wound - Toe Anaerobic Culture - Final No anaerobic bacteria isolated. Laboratory Results 11/13/20 16:18: POC Glucose 200 H 11/13/20 21:24: POC Glucose 260 H 11/14/20 04:40: Urine Color Yellow, Urine Clarity Cloudy, Urine pH 6.0, Ur Specific [place] 1.010, Urine Protein 100 H, Urine Glucose (UA) 50 H, Urine Ketones Negative, Urine Occult Blood 25 H, Urine Nitrite Negative, Urine Bilirubin Negative, Urine Urobilinogen Normal, Ur Leukocyte Esterase 500 H 11/14/20 04:40: Ur Random Sodium 60, Urine Creatinine 39.10 11/14/20 06:05: WBC 12.6 H, RBC 4.16 L, Hgb 12.1, Hct 39.3, MCV 94.5, MCH 29.1, MCHC 30.8 L, RDW Std Deviation 48.2 H, RDW Coeff of Brea 13.8, Plt Count 186, MPV 10.6, Immature Gran % (Auto) 0.400, Neut % (Auto) 76.3 H, Lymph % (Auto) 12.9 L, [place] % (Auto) 7.8, Eos % (Auto) 2.2, Baso % (Auto) 0.4, Absolute Neuts (auto) 9.7 H, Absolute Lymphs (auto) 1.63, Nucleated RBC % 0 11/14/20 06:05: Sodium 137, Potassium 4.7, Chloride 110 H, Carbon Dioxide 19.0 L, Anion Gap 8, BUN 46 H, Creatinine 5.22 H, Estim Creat Clear Calc 11.86, Est GFR (MDRD) Af Amer 11 L, Est GFR (MDRD) Non-Af 9 L, BUN/Creatinine Ratio 8.8 L, Glucose 226 H, Calcium 7.4 L 11/14/20 06:47: POC Glucose 207 H 11/14/20 11:35: POC Glucose 255 H Current Medications Acetaminophen (Acetaminophen 325 Mg Tablet) 650 mg PO Q6H PRN PRN PRN Reason: Pain Score 1-10/Temp > 100.7 F Last Admin: 11/13/20 16:21 Dose: 650 mg Documented by: Albuterol Sulfate (Albuterol 2.5 Mg/3 Ml Vial.Neb.) 2.5 mg INHALATION Q4H PRN PRN PRN Reason: SOB &/OR WHEEZING Last Admin: 11/14/20 08:43 Dose: 2.5 mg Documented by: Atorvastatin Calcium (Atorvastatin Calcium 80 Mg Tablet) 80 mg PO QHS [facility] Last Admin: 11/13/20 21:27 Dose: 80 mg Documented by: Duloxetine HCl (Duloxetine Hcl 60 Mg Capsule) 60 mg PO DAILY@1800 [facility] Last Admin: 11/13/20 18:15 Dose: 60 mg Documented by: Ergocalciferol (Ergocalciferol 50,000 Unit Capsule) 50,000 unit PO Q7D [facility] Hydroxyzine Pamoate (Hydroxyzine Yarely 25 Mg Capsule) 100 mg PO QHS PRN PRN PRN Reason: ANXIETY Sodium Chloride () 250 mls @ 15 mls/hr IV .[id number] PRN PRN Reason: Saline Flush Last Infusion: 02/15/21 06:15 Dose: 0 mls/hr Documented by: Sodium Chloride () 250 mls @ 15 mls/hr IV .[id number] PRN PRN Reason: Additional IVPB Infusion Ceftriaxone Sodium 2 gm/ (Sodium Chloride) 50 mls @ 100 mls/hr IV Q24 [facility] Last Infusion: 11/14/20 09:44 Dose: Infused Documented by: Insulin Glargine (Insulin Glargine 100 Units/Ml Pen) 100 units SC DAILY [facility] Last Admin: 11/14/20 09:38 Dose: 100 u Documented by: Insulin Human Lispro (Insulin Lispro 100 Unit/Ml Insuln.Pen) 0 unit SC ACHS [facility]; Protocol Last Admin: 11/14/20 11:37 Dose: 4 u Documented by: L-Arginine/L-Glutamine/Calcium HMB (Rip (Unflavored) Packet) 1 packet PO BIDCM [facility] Last Admin: 11/14/20 08:30 Dose: Not Given Documented by: Levothyroxine Sodium (Levothyroxine 25 Mcg Tablet) 25 mcg PO DAILY@0600 [facility] Last Admin: 11/14/20 06:48 Dose: 25 mcg Documented by: Loratadine (Loratadine 10 Mg Tablet) 10 mg PO DAILY PRN PRN PRN Reason: ALLERGIES Losartan Potassium (Losartan Potassium 50 Mg Tablet) 50 mg PO DAILY [facility] Last Admin: 11/12/20 09:36 Dose: 50 mg Documented by: Morphine Sulfate (Morphine 2 Mg/Ml Syringe) 2 mg IV Q3H PRN PRN PRN Reason: Pain Score 6-10 Last Admin: 11/12/20 08:07 Dose: 2 mg Documented by: Multivitamins/Minerals (Multivitamins,Ther W-Minerals Tablet) 1 tablet PO DAILY@0800 [facility] Last Admin: 11/14/20 08:31 Dose: 1 tablet Documented by: Nicotine (Nicotine 21 Mg Patch) 21 mg TD DAILY [facility] Last Admin: 11/14/20 08:33 Dose: 21 mg Documented by: Ondansetron HCl (Ondansetron 4 Mg/2 Ml Vial) 4 mg IV Q8H PRN PRN PRN Reason: NAUSEA/VOMITING Last Admin: 11/12/20 19:09 Dose: 4 mg Documented by: Oxycodone HCl (Oxycodone 5 Mg Tablet) 5 mg PO Q4H PRN PRN PRN Reason: Pain Score 4-5 Last Admin: 11/12/20 05:41 Dose: 5 mg Documented by: Pantoprazole Sodium (Pantoprazole Sodium 20 Mg Tablet) 20 mg PO BID [facility] Last Admin: 11/14/20 08:32 Dose: 20 mg Documented by: Polysaccharide Iron Complex (Iron Polysaccharide Complex 150 Mg Capsule) 150 mg PO DAILYCM [facility] Last Admin: 11/14/20 08:30 Dose: 150 mg Documented by: Pregabalin (Pregabalin 50 Mg Capsule) 100 mg PO BID [facility] Last Admin: 11/12/20 21:12 Dose: 100 mg Documented by: Sodium Chloride (0.9% Saline Lock 10 Ml Syringe) 10 - 40 ml IV UD PRN PRN Reason: SALINE FLUSH Last Admin: 11/12/20 08:07 Dose: 10 ml Documented by: Trazodone HCl (Trazodone 50 Mg Tablet) 100 mg PO QHS [facility] Last Admin: 11/13/20 21:26 Dose: 100 mg Documented by: Assessment/Plan All Active Problems Osteomyelitis of toe of right foot (Resolved) Skin ulcer of left great toe with fat layer exposed (Acute) Diabetic foot ulcer (Acute) Foot ulcer, left (Acute) Cellulitis of left foot (Acute) Osteomyelitis (Acute) SEUN ATI with vanco nephrotoxicity also AIN in differential diagnosis Metabolic acidosis the patient had MRI with dotarem so HD was not performed to prevent NSF because risks of placing a dialysis catheter outweighed the benefits. I discussed at length with the patient the major benefits and risks of renal biopsy including but not limited to , kidney loss, other organ damage, bleeding requiring transfusion, infection, pain. The patient agrees to proceed with the biopsy. I also explained to her that if there is no significant improvement in her renal function she might still need dialysis Will order serologies though the suspicion for other diagnosis except ATI with vanco and AIN is low but they are requested by the pathologist who reads the renal biopsy Avoid nephrotoxins Vancomycin was stopped The ultrasound was normal Patient is nonoliguric continue to measure strict I's and O's hold losartan but pressure increases can start labetalol 100 mg p.o. twice daily and titrate as needed or can start a calcium channel erin Above assessment and plan was discussed at length with the patient who voiced understanding and agrees to proceed with the plan as outlined above. She was given the opportunity to ask questions and stated that those were answered to her satisfaction. Thank you very much for allowing me to participate in the care of this patient. Please do not hesitate to call if you have any questions or concerns.
[2020-11-14 16:16] LABS: International Normalized Ratio 1.1; Prothrombin Time (Protime)PT. 13.8 SECONDS (11.7-14.9)
[2020-11-14 16:31] LABS: Bedside Glucose 173 mg/dL (70-110)
[2020-11-14 17:08] LABS: HIV - WCH Non-Reactive (Nonreactive)
[2020-11-14] MEDS: DULoxetine Hcl 60 MG Capsule PO (17:29)
[2020-11-14] MEDS: Bisacodyl 5 MG Tablet PO (17:39)
[2020-11-14] MEDS: Polyethylene Glycol 3350 17 GM PACKET PO (17:39)
[2020-11-14] MEDS: Acetaminophen 325 MG Tablet 650 MG PO (19:41)
[2020-11-14] MEDS: Sodium Bicarbonate 650 MG Tablet PO (21:09)
[2020-11-14] MEDS: traZODone 50 MG Tablet 100 MG PO (21:09)
[2020-11-14 21:45] LABS: Bedside Glucose 249 mg/dL (70-110)
[2020-11-14] MEDS: oxyCODONE 5 MG Tablet PO (22:26)
[2020-11-14 22:31] LABS: Mucous, Urine 0 SEEN /hpf (<or=2+); Red Blood Cells-Urine 0 SEEN /hpf (0-5)
[2020-11-14 22:33] LABS: Color, Urine Yellow (Yellow); Glucose, Dipstick 50 mg/dl (Normal); Ketone-Dipstick Negative (Negative); Leukocyte Esterase-Dipstick 500 /ul (Negative); Nitrite-Dipstick Negative (Negative); Occult Blood-Urine 10 /ul (Negative); Protein-Dipstick 30 mg/dl (Negative); Urine Bilirubin Dipstick Negative (Negative); Urine Clarity Clear (Clear); Urine Urobilinogen Normal (Normal)
[2020-11-14 22:53] LABS: Bacteria 1+ /hpf (None Seen); Squamous Epithelial Cells - UA 0-5 SEEN /hpf (5-10); White Blood Cells 5-10 SEEN /hpf (0-5)
[2020-11-15] VITALS (26 sets, daily range): BP systolic 123–161; BP diastolic 70–99; PULSE 71–88; RESP 15–19; TEMP 36.2–36.7; O2SAT 93–100; BMI 39.9
[2020-11-15 07:00] LABS: Bedside Glucose 161 mg/dL (70-110)
[2020-11-15 07:27] LABS: Absolute Lymphocyte Count 1.67 X10^3/uL (0.83-4.51); Absolute Neutrophil Count 8.1 X10^3/uL (2.0-7.7); Basophil# 0.05 X10^3/uL; Basophil% 0.5 % (0-1); Eosinophil# 0.27 X10^3/uL; Eosinophils% 2.5 % (0-5); Hematocrit 38.8 % (37-47); Lymphocyte # 1.67 X10^3/ul (4.0); Lymphocyte % 15.2 % (19-41); Mean Corp Hgb Conc 30.9 g/dL (32-36); Mean Corpuscular Hgb 29.2 pg (27.0-32.0); Mean Corpuscular Volume 94.4 fL (81-99); Mean Platelet Vol. 10.5 fl (6.2-12.0); Monocyte# 0.86 X10^3/uL; Monocyte% 7.8 % (0-10); NRBC Flagged by Analyzer 0 % (0-5); Neutrophil # 8.11 X10^3/uL (2.7-7.7); Neutrophil % 73.5 % (47-70); Platelet Count 203 K/mm3 (150-450); RBC Distribution Width CV 13.9 % (11.6-14.6); RBC Distribution Width SD 47.6 fl (35.1-43.9); Red Blood Count 4.11 M/mm3 (4.2-5.4)
[2020-11-15 07:54] LABS: Albumin, Serum 2.3 g/dL (3.2-5.0); Anion Gap 8 (5-15); BUN 54 mg/dL (7-18); BUN/Creat Ratio 8.4 RATIO (10-20); Chloride 110 mmol/L (98-107); Creatinine, Serum 6.42 mg/dL (0.55-1.02); EST Glomerular Filtration Rate 7 mL/min (>60); Est Glom Filt Rate - Afr Amer 9 mL/min (>60); Estimated Creatinine Clearance 9.64 ml/min; Glucose 161 mg/dL (74-106); Phosphorus 7.8 mg/dL (2.5-4.9); Potassium 4.6 mmol/L (3.5-5.1); Sodium Level 137 mmol/L (136-145)
[2020-11-15 08:03] LABS: Vancomycin, Random Level 39.8 ug/mL (0.0-15.0)
--- NOTE | 2020-11-15 09:00 | CT_ITS ---
PROCEDURE: CT GUIDED PERCUTANEOUS KIDNEY BIOPSY. DATE: 11/15/2020 INDICATION: Female, 49 years old. Renal insufficiency. PHYSICIAN: Jaydon Villanueva M.D. MEDICATIONS: 2 mg of VERSED and 50 mcg of FENTANYL intravenously. Conscious sedation was started at 9:11 AM and terminated and 9:27 AM. The patient was independently monitored by the department nurses. ACCESS SITE: Lower pole of the right kidney. NEEDLE: 18-gauge core biopsy needle system SPECIMEN: 4 18-gauge cores EBL: None. COMPLICATIONS: None immediate. RADIATION DOSAGE (If Supplied By Facility): CTDIvol = ( 15 ) mGy, DLP = ( 314.82 ) mGycm. Individualized dose optimization techniques were utilized. The risks, benefits, and alternatives to the procedure and sedation were explained to the patient. The specific risk of hemorrhage requiring further treatment or intervention was detailed and accepted. Written informed consent was obtained. The patient was placed on the CT table in the prone position. Multiple axial images were obtained from the lung base through the caudal extent of the kidneys. An appropriate entry site was identified and a wale made on the skin. The skin overlying the [right ] posterior flank was prepped and draped in sterile fashion. 1% lidocaine was administered subcutaneously for local anesthesia. Initially, a 22 gauge needle was advanced and CT images confirmed good needle position. The 22 gauge needle was then exchanged for an 17 gauge introducer needle which was advanced. Repeat CT images confirmed good needle trajectory and tip position. The introducer needle was then advanced into the periphery of the inferior renal pole, and CT images were again obtained to confirm exact tip location. The inner stylet of the introducer needle was then removed and an 18 gauge coaxial needle was advanced thru the introducer needle and biopsy performed. A total of [4 ] passes were performed and the specimen collected was sent to Pathology for further evaluation. The needle was withdrawn. Hemostasis was achieved with manual compression and a sterile dressing was applied. Repeat CT images of the biopsy area was performed which demonstrated no gross bleeding or hematoma. The patient tolerated the procedure well without immediate complications. The patient was transported to the [floor/recovery area] in stable condition. CT/Biopsy/Inj or Needle Placement IMPRESSION: Successful CT guided percutaneous kidney biopsy. Electronically Signed: Jaydon Villanueva MD at 9:48 EST , Service support ,
[2020-11-15] MEDS: Midazolam 2 MG/2 ML Syringe IV (09:11)
[2020-11-15] MEDS: fentaNYL 100 MCG/2 ML Ampul IV (09:11)
--- NOTE | 2020-11-15 09:30 | KID_PTH ---
PATIENT: KATHRYN ESQUIVEL LOC: [facility] U#:[id number] AGE/SX: 49/F ROOM: [facility] RE11/11/[address]: Dr. Steven Rahman MD : 1970 BED: 1 DIS: 11/17/2020 SPEC #: [id number] RECD: 11/15/20 09:34 STATUS: GALILEO REVenus #: [id number] MARIE: 11/15/20 09:[address]: Agustin Preciado DEPT: SURGICAL PATHOLOGY RECD BY: Sally Bucio ENTERED: 11/15/20 10:28 SP TYPE: KIDNEY OTHR DR: MD Dr. Gail Og MD Dr. Chitra Ganta, MD Dr. Kelly Kubiak DPM MD Dr. Roger Kaur MD Tissues: Kidney, NOS Procedures: Electron Microscopy (ACH) Fluorescent Antibody (ACH) Sp St Grp II Kidney (ACH) Kidney Biopsy (ACH) Fluorescent antibody (ACH) add'l Comments: @ Ordering doctor for [facility] edited from to @ by RGOOD at 11/15/20 1538 @ Submitting doctor edited from to @ by RGOOD at 11/15/20 1538 HEADER OPERATION: CT-guided right kidney biopsy PRE-OP DIAGNOSIS: Acute kidney injury; Vancomycin nephrotoxicity & AIN TISSUE SUBMITTED: Kidney, 18-gauge x4 MICROSCOPIC DIAGNOSIS Kidney, right, renal biopsy: Acute/allergic interstitial nephritis, moderate. Acute tubular damage, moderate. Renal parenchyma with moderate arteriolar hyalinosis. See comment. COMMENT The findings are those of renal parenchyma with both acute tubular damage including dilated proximal tubular profiles with degenerative changes and regenerative epithelial changes including mitotic figures and sloughed epithelial cells as well as rare broad acellular casts in collecting tubules. Some collecting tubules demonstrate tubular cytoplasmic debris. Also identified within the specimen are foci (multifocal) of interstitial inflammatory infiltrate consisting predominantly of lymphocytes with admixed eosinophils as would be seen in acute/allergic interstitial nephritis. Also, of note are afferent and efferent arteriolar hyalinosis changes as would be seen in diabetic arteriolar hyalinosis. The possibility of additional/ underlying hypertensive changes cannot be completely ruled out given the changes in afferent arterioles. Clinical correlation is essential. No glomerulosclerosis or ischemic glomerular changes or increased mesangial matrix is noted. Pattern best fits with allergic/acute interstitial nephritis and acute tubular necrosis (acute tubular damage) in this renal biopsy specimen. Clinical and medication history correlation is essential. CLINICAL INFORMATION: Acute tubular injury; Vancomycin nephrotoxicity and allergic/acute interstitial nephritis. Acute kidney injury. MICROSCOPIC DESCRIPTION LIGHT MICROSCOPY: Marginally adequate biopsy specimen consisting predominantly of renal cortex and up to 9 glomeruli or portions of glomeruli for histologic evaluation. All glomeruli demonstrate open capillary loops and normal mesangial matrix and cellularity. Rare arterioles demonstrate moderate arteriolar hyalinosis. Vasculature is otherwise unremarkable. Renal parenchyma demonstrates numerous dilated proximal tubule profiles with simplified epithelial features and rare mitotic figures in addition to interstitial inflammatory infiltrate with admixture of lymphocytes and eosinophils. Focal tubulitis is identified. No pyelonephritis is noted. No epithelial crescents are identified within glomeruli. No areas of vasculitis are seen. Afferent and efferent arterioles demonstrate moderate arteriolar hyalinosis. Dilated collecting tubules demonstrate few broad acellular casts. PAS stain highlights arteriolar hyalinosis, moderate and demonstrates loss of normal brush border on many dilated proximal tubular epithelial cells cytoplasm/apical cytoplasm. Slight increase in mesangial matrix is seen in glomeruli. No arterial intimal fibrosis is seen. Interstitial/tubular interstitial inflammatory infiltrate is seen. Munguia (silver) stain demonstrates normal mesangial matrix and normal thickness glomerular basement membranes with no splits, breaks or irregular luminal outlines. Arteriolar hyalinosis is seen. Trichrome stain demonstrates normal mesangial matrix and is negative for fuchsinophilic deposits within glomeruli. Moderate arteriolar hyalinosis is seen. Renal parenchyma demonstrates 25% interstitial fibrosis. Interstitial inflammatory infiltrate is noted as are dilated tubular profiles throughout. [place] red stain is negative for congophilia and for birefringence and dichromatism by polarization microscopy. IMMUNOFLUORESCENCE: Tissue submitted for immunofluorescence microscopy demonstrates renal cortex and medulla and up to 3 glomeruli or portions of glomeruli for histologic evaluation. All glomeruli demonstrate open capillary loops and normal mesangial matrix and cellularity. IgG, IgA, IgM, C1q, kappa light chain, lambda light chain, fibrin and albumin are negative within glomeruli, tubules and vascular structures. C3 demonstrates trace positivity at vascular pole in some glomeruli as well as 1+ positive staining in arteriolar hyalinosis in the biopsy specimen. No staining of tubulointerstitium is seen. ELECTRON MICROSCOPY: Toluidine blue-stained sections (thick/media production operator sections) reveal tubular interstitium without identifiable glomerulus for histologic evaluation. Dilated tubular profiles are seen in addition to reparative changes of tubular epithelium and interstitial inflammatory infiltrate consisting predominantly of lymphocytes with rare admixed eosinophils. Tissue insufficient for electron microscopic/ultrastructural examination (absent glomeruli). GROSS DESCRIPTION The specimen is sent entirely to [facility] for diagnosis. Received in transport medium labeled with the patient's name and right kidney, the specimen consists of three cylindrical pieces of read renal parenchyma which ae 0.7 x 0.1 x 0.1 cm each. Bead Preparer section is submitted for immunofluorescence microscopy. Bead Preparer section is submitted for electron microscopy. The remainder of the specimen is entirely submitted as A1.
--- NOTE | 2020-11-15 09:46 | PN_ITS ---
Patient Problems: Active and Suspected Problems Diabetic foot ulcer (Acute) Foot ulcer, left (Acute) Cellulitis of left foot (Acute) Osteomyelitis (Acute) Subjective: Patient was seen this morning, patient has planned renal biopsy today. She has no other complaints of f/c/n/v. - Physical Exam Vitals/I&O's: Vital Signs Temp Pulse Resp BP Pulse Ox 97.4 F L 80 15 128/76 H 94 11/15/20 06:22 11/15/20 09:37 11/15/20 09:37 11/15/20 09:37 11/15/20 09:37 Oxygen Flow Rate (L/min) [4] 2 Oxygen Flow Rate (L/min) [3] 2 Oxygen Flow Rate (L/min) [2] 2 Oxygen Flow Rate (L/min) [1 ( 2 Initial Baseline)] Oxygen Flow Rate (L/min) 2 Oxygen Delivery Method [4] Nasal Cannula Oxygen Delivery Method [3] Nasal Cannula Oxygen Delivery Method [2] Nasal Cannula Oxygen Delivery Method [1 ( Room Air Initial Baseline)] Oxygen Delivery Method Room Air Weight: 108.862 kg Body Mass Index (BMI) 39.9 Finger Stick Blood Glucose 269 Intake and Output for Last 24 Hours 11/13/20 11/14/20 11/15/20 23:59 23:59 23:59 Intake Total 5687.08 / 5687.08 3274.58 / 3274.58 637.5 / 637.5 Output Total 400 / 400 Balance 5687.08 / 5687.08 2874.58 / 2874.58 637.5 / 637.5 General: Alert, Oriented x3, Cooperative, No apparent distress Extremities: Capillary Refill Less than 3 Seconds, No Calf Tenderness, - - Left 1st toe with no open lesion, no drainage, no cellulitis noted. Microbiology Past 72 Hours 11/14/20 04:40 Urine, Clean Catch Urine Culture - Preliminary Culture exhibits no growth. 11/11/20 19:55 Blood Culture (Wb) - Left Forearm Blood Culture - Preliminary No growth in 48 hours. 11/11/20 20:10 Blood Culture (Wb) - Anticubital Right Blood Culture - Preliminary No growth in 48 hours. 11/12/20 07:30 Wound - Toe Gram Stain - Final 11/12/20 07:30 Wound - Toe Wound Culture - Final Staphylococcus epidermidis 11/12/20 07:30 Wound - Toe Anaerobic Culture - Final No anaerobic bacteria isolated. Laboratory Results 11/14/20 11:35: POC Glucose 255 H 11/14/20 15:52: c-ANCA Antibody Pending, p-ANCA Antibody Pending 11/14/20 15:52: PABLO Screen Pending, DILLON-1 Antibody Pending, SS-A/Ro IgG Antibody Pending, SS-B/La IgG Antibody Pending, Sm (Guerra) Antibody Pending, BANQUET PILOT Antibody Pending, Scl-70 Scleroderma Ab Pending, Double Strand DNA Ab Pending, Centromere B Antibody Pending 11/14/20 15:52: Glomerular Base Memb Ab Pending, Complement C3 Pending, Complement C4 Pending 11/14/20 15:52: RPR Pending 11/14/20 15:52: Serum Cryoglobulins Pending, Hepatitis A IgM Ab Pending, Hep Bs Antigen Pending, Hep B Core IgM Ab Pending, Hepatitis C Ab (EIA) Pending 11/14/20 15:52: HIV 1&2 Antibody Non-Reactive 11/14/20 15:52: PT 13.8, INR 1.1, APTT 32.0 11/14/20 16:21: POC Glucose 173 H 11/14/20 21:08: POC Glucose 249 H 11/14/20 22:20: Urine Color Yellow, Urine Clarity Clear, Urine pH 6.0, Ur Specific [place] 1.010, Urine Protein 30 H, Urine Glucose (UA) 50 H, Urine Ketones Negative, Urine Occult Blood 10 H, Urine Nitrite Negative, Urine Bilirubin Negative, Urine Urobilinogen Normal, Ur Leukocyte Esterase 500 H, Urine RBC 0 SEEN, Urine WBC 5-10 SEEN, Ur Squamous Epith Cells 0-5 SEEN, Urine Bacteria 1+, Urine Mucus 0 SEEN 11/15/20 05:55: WBC 11.0, RBC 4.11 L, Hgb 12.0, Hct 38.8, MCV 94.4, MCH 29.2, MCHC 30.9 L, RDW Std Deviation 47.6 H, RDW Coeff of Bre[place] 13.9, Plt Count 203, MPV 10.5, Immature Gran % (Auto) 0.500, Neut % (Auto) 73.5 H, Lymph % (Auto) 15.2 L, [place] % (Auto) 7.8, Eos % (Auto) 2.5, Baso % (Auto) 0.5, Absolute Neuts (auto) 8.1 H, Absolute Lymphs (auto) 1.67, Nucleated RBC % 0 11/15/20 05:55: Sodium 137, Potassium 4.6, Chloride 110 H, Carbon Dioxide 19.0 L , Anion Gap 8, BUN 54 H, Creatinine 6.42 H, Estim Creat Clear Calc 9.64, Est GFR (MDRD) Af Amer 9 L, Est GFR (MDRD) Non-Af 7 L, BUN/Creatinine Ratio 8.4 L, Glucose 161 H, Calcium 8.0 L, Phosphorus 7.8 H, Albumin 2.3 L 11/15/20 05:55: Random Vancomycin 39.8 H 11/15/20 06:29: POC Glucose 161 H Current Medications Acetaminophen (Acetaminophen 325 Mg Tablet) 650 mg PO Q6H PRN PRN PRN Reason: Pain Score 1-10/Temp > 100.7 F Last Admin: 11/14/20 19:41 Dose: 650 mg Documented by: Albuterol Sulfate (Albuterol 2.5 Mg/3 Ml Vial.Neb.) 2.5 mg INHALATION Q4H PRN PRN PRN Reason: SOB &/OR WHEEZING Last Admin: 11/14/20 08:43 Dose: 2.5 mg Documented by: Bisacodyl (Bisacodyl 5 Mg Tablet) 5 mg PO DAILY [facility] Last Admin: 11/14/20 17:39 Dose: 5 mg Documented by: Ergocalciferol (Ergocalciferol 50,000 Unit Capsule) 50,000 unit PO Q7D [facility] Fentanyl Citrate (Fentanyl 100 Mcg/2 Ml Ampul) 25 - 50 mcg IV UD PRN PRN Reason: Procedural Pain Control Stop: 11/15/20 23:59 Last Admin: 11/15/20 09:11 Dose: 50 mcg Documented by: Sodium Chloride () 250 mls @ 15 mls/hr IV .[id number] PRN PRN Reason: Saline Flush Last Infusion: 11/13/20 06:15 Dose: 0 mls/hr Documented by: Sodium Chloride () 250 mls @ 15 mls/hr IV .[id number] PRN PRN Reason: Additional IVPB Infusion Ceftriaxone Sodium 2 gm/ (Sodium Chloride) 50 mls @ 100 mls/hr IV Q24 [facility] Last Infusion: 11/14/20 09:44 Dose: Infused Documented by: Sodium Chloride () 1,000 mls @ 75 mls/hr IV .[id number] [facility] Sodium Chloride () 500 mls @ 0 mls/hr IV .Q0M [facility] Stop: 11/15/20 23:59 Last Admin: 11/15/20 09:11 Dose: 15 mls/hr Documented by: Insulin Glargine (Insulin Glargine 100 Units/Ml Pen) 100 units SC DAILY [facility] Last Admin: 11/14/20 09:38 Dose: 100 u Documented by: Insulin Human Lispro (Insulin Lispro 100 Unit/Ml Insuln.Pen) 0 unit SC ACHS [facility]; Protocol Last Admin: 11/15/20 08:09 Dose: Not Given Documented by: L-Arginine/L-Glutamine/Calcium HMB (Rip (Unflavored) Packet) 1 packet PO BIDCM [facility] Last Admin: 11/14/20 16:24 Dose: Not Given Documented by: Levothyroxine Sodium (Levothyroxine 25 Mcg Tablet) 25 mcg PO DAILY@0600 [facility] Last Admin: 11/14/20 06:48 Dose: 25 mcg Documented by: Loratadine (Loratadine 10 Mg Tablet) 10 mg PO DAILY PRN PRN PRN Reason: ALLERGIES Midazolam HCl (Midazolam 2 Mg/2 Ml Syringe) 1 - 2 mg IV UD PRN PRN Reason: Procedural Sedation Stop: 11/15/20 23:59 Last Admin: 11/15/20 09:11 Dose: 2 mg Documented by: Multivitamins/Minerals (Multivitamins,Ther W-Minerals Tablet) 1 tablet PO DAILY@0800 [facility] Last Admin: 11/14/20 08:31 Dose: 1 tablet Documented by: Nicotine (Nicotine 21 Mg Patch) 21 mg TD DAILY [facility] Last Admin: 11/14/20 08:33 Dose: 21 mg Documented by: Ondansetron HCl (Ondansetron 4 Mg/2 Ml Vial) 4 mg IV Q8H PRN PRN PRN Reason: NAUSEA/VOMITING Last Admin: 11/12/20 19:09 Dose: 4 mg Documented by: Oxycodone HCl (Oxycodone 5 Mg Tablet) 5 mg PO Q6H PRN PRN PRN Reason: Pain Score 4-10 Last Admin: 11/14/20 22:26 Dose: 5 mg Documented by: Pantoprazole Sodium (Pantoprazole Sodium 20 Mg Tablet) 20 mg PO BID [facility] Last Admin: 11/14/20 21:09 Dose: 20 mg Documented by: Polysaccharide Iron Complex (Iron Polysaccharide Complex 150 Mg Capsule) 150 mg PO DAILYCM [facility] Last Admin: 11/14/20 08:30 Dose: 150 mg Documented by: Sodium Bicarbonate (Sodium Bicarbonate 650 Mg Tablet) 650 mg PO TID [facility] Last Admin: 11/14/20 21:09 Dose: 650 mg Documented by: Sodium Chloride (0.9% Saline Lock 10 Ml Syringe) 10 - 40 ml IV UD PRN PRN Reason: SALINE FLUSH Last Admin: 11/12/20 08:07 Dose: 10 ml Documented by: Trazodone HCl (Trazodone 50 Mg Tablet) 100 mg PO QHS [facility] Last Admin: 11/14/20 21:09 Dose: 100 mg Documented by: Medical Necessity - Tobacco Use Smoking Status: Current every day smoker Assessment/Plan All Active Problems Osteomyelitis of toe of right foot (Resolved) Skin ulcer of left great toe with fat layer exposed (Acute) Diabetic foot ulcer (Acute) Foot ulcer, left (Acute) Cellulitis of left foot (Acute) Osteomyelitis (Acute) Ulceration down to subcutaneous tissue left 1st toe w/ early osteomyelitis to distal phalanx Diabetes with peripheral neuropathy Hx of previous toe amputations SEUN Reviewed diagnostic data. Left 1st toe ulceration appears healed at this time. There is no drainage, no necrosis, no maloder, no visible abscess. Culture reviewed and growing staph epi, patient on IV antibiotic therapy at this time. Amputation vs nonsurgical/antibiotic care discussed. Wound is healed at this time and toe is improved on antibiotics. Patient would like to avoid amputation. Toe appears salvageable at this time. Infectious Disease/Dr. Lorenzo on consult. Although wound is healed recommend continuing with daily dressing changes to keep the toe protected to help prevent ulcer recurrence. Applied hydrogel and gauze dressing - change daily. Keep toe offloaded at all times. Use offloading surgical shoe when all weightbearing on left foot. Limit weightbearing on left foot as much as possib le. Nephrology has been consulted for SEUN. Podiatry will continue to follow while in hospital.
[2020-11-15] MEDS: 0.9% Normal Saline 1,000 ML 75 ML IV (10:40)
[2020-11-15] MEDS: Sodium Bicarbonate 650 MG Tablet PO ×3 (10:41→20:45)
[2020-11-15] MEDS: Iron Polysaccharide Complex 150 MG CAPSULE PO (10:42)
[2020-11-15] MEDS: Multivitamins,Ther W-Minerals Tablet 1 TABLET PO (10:42)
[2020-11-15] MEDS: Pantoprazole Sodium 20 MG Tablet PO ×2 (10:42→20:45)
[2020-11-15] MEDS: Levothyroxine 25 MCG TABLET PO (10:42)
[2020-11-15] MEDS: Bisacodyl 5 MG Tablet PO (10:42)
[2020-11-15 11:11] LABS: Bedside Glucose 130 mg/dL (70-110)
--- NOTE | 2020-11-15 11:26 | RDU_ITS ---
Reason For Study: Severe SEUN Right Renal Artery Left Renal Artery Right renal artery ostium Left renal artery ostium 72.7/13.6 118.3/21.5 RSV/EDV. PSV/EDV. Right renal artery proximal Left renal artery proximal PSV/EDV 146/23.5 PSV/EDV. 72.7/16.4 . Right renal artery mid 168.2/30.8 Left renal artery mid 90.6/19.4 PSV/EDV. PSV/EDV . Right renal artery distal Left renal artery distal 79.6/13.6 136.5/22.4 PSV/EDV. PSV/EDV. Right RAR 2.78. Left RAR 1.50. Right Renal Parenchyma Left Renal Parenchyma Upper Pole Medula 34/7.5 PSV/EDV. Left upper pole medulla 34.9/7.9 Right upper pole medulla EDR 0.22 . PSV/EDV . Right upper pole medulla R.I. Left upper pole medulla EDR 0.23 . 0.78 . Left upper pole medulla R.I. 0.77 . Upper Andrea Cortx 23.9/6.6 PSV/EDV. UP Cortex 17.7/4.2 PSV/EDV. Right upper pole cortex EDR 0.27 . Left upper pole cortex EDR 0.24 . Right upper pole cortex R.I. 0.73 . Left upper pole cortex R.I. 0.76 . Right lower Pole medulla 35.8/7.5 Left lower Pole medulla 27/6.1 PSV/EDV . PSV/EDV . Right lower pole medulla EDR 0.21 . Left lower pole medulla EDR 0.23 . Right lower pole medulla R.I. Left lower pole medulla R.I. 0.77 . 0.79 . Lower Pole Cortx 21.4/6.1 PSV/EDV. Lower Pole Cortex 19.4/7.5 PSV/EDV. Left lower pole cortex EDR 0.28 . Right lower pole cortex EDR 0.39 . Left lower pole cortex R.I. 0.72 . Right lower pole cortex R.I. 0.61 . Left Renal Hilar Right Renal Hilar LT Hilar avg 52.6/10.9 PSV/EDV . Right Hilar avg 55/10.2 PSV/EDV. Left hilar acceleration time 70 Right hilar acceleration time 40 m/sec. m/sec. Left Renal Dimensions Right Renal Dimensions Left kidney size 11.38 cm . Right kidney size 11.23 cm . Left cortical dimension 2.54 cm . Right cortical dimension 2.27 cm . Aorta Aorta mid, 60.5 cm/sec. Velocity taken while pateint in left decubital position. Unable to obtain from supine due to fluid and bowel gas. Interpretation Summary Technically difficult examination with poor visualization and fluid/bowel gas identified. Diameter of the abdominal aorta was not obtained Less than 60% stenosis right renal artery Maintained right renal length of 11.23 cm Less than 60% stenosis left renal artery Maintained left renal length of 11.38 cm Abnormal renal resistivity indices bilaterally suspicious for intrinsic renal parenchymal disease. Ordering Physician: Agustin Preciado Referring Physician: Shirley Garcia Performed By: Chica Nunez RVT
--- NOTE | 2020-11-15 11:31 | PCM.PN.REN ---
Patient Problems: Active and Suspected Problems Diabetic foot ulcer (Acute) Foot ulcer, left (Acute) Cellulitis of left foot (Acute) Osteomyelitis (Acute) Subjective: No gross hematuria no pain at the renal biopsy site no shortness of air no chest pain still has good urine output - Physical Exam Vitals/I&O's: Vital Signs Temp Pulse Resp BP Pulse Ox 97.2 F L 75 18 133/72 H 96 11/15/20 10:40 11/15/20 11:00 11/15/20 10:40 11/15/20 10:40 11/15/20 10:40 Oxygen Flow Rate (L/min) [4] 2 Oxygen Flow Rate (L/min) [3] 2 Oxygen Flow Rate (L/min) [2] 2 Oxygen Flow Rate (L/min) [1 ( 2 Initial Baseline)] Oxygen Flow Rate (L/min) 2 Oxygen Delivery Method [4] Nasal Cannula Oxygen Delivery Method [3] Nasal Cannula Oxygen Delivery Method [2] Nasal Cannula Oxygen Delivery Method [1 ( Room Air Initial Baseline)] Oxygen Delivery Method Room Air Weight: 108.862 kg Body Mass Index (BMI) 39.9 Finger Stick Blood Glucose 269 Intake and Output for Last 24 Hours 11/13/20 11/14/20 11/15/20 23:59 23:59 23:59 Intake Total 5687.08 / 5687.08 3274.58 / 3274.58 716.5 / 716.5 Output Total 400 / 400 Balance 5687.08 / 5687.08 2874.58 / 2874.58 716.5 / 716.5 General: Alert, Cooperative HEENT: Atraumatic, Normocephalic Neck: Supple, Trachea Midline Lungs: Clear to auscultation, Normal air movement Cardiovascular: Regular rate, Regular Rhythm, Normal S1 Abdomen: Bowel Sounds Present, Soft, Obese Extremities: No clubbing Skin: No rashes Microbiology Past 72 Hours 11/14/20 04:40 Urine, Clean Catch Urine Culture - Preliminary Culture exhibits no growth. 11/11/20 19:55 Blood Culture (Wb) - Left Forearm Blood Culture - Preliminary No growth in 48 hours. 11/11/20 20:10 Blood Culture (Wb) - Anticubital Right Blood Culture - Preliminary No growth in 48 hours. 11/12/20 07:30 Wound - Toe Gram Stain - Final 11/12/20 07:30 Wound - Toe Wound Culture - Final Staphylococcus epidermidis 11/12/20 07:30 Wound - Toe Anaerobic Culture - Final No anaerobic bacteria isolated. Laboratory Results 11/14/20 11:35: POC Glucose 255 H 11/14/20 15:52: c-ANCA Antibody Pending, p-ANCA Antibody Pending 11/14/20 15:52: PABLO Screen Pending, DILLON-1 Antibody Pending, SS-A/Ro IgG Antibody Pending, SS-B/La IgG Antibody Pending, Sm (Guerra) Antibody Pending, [employer] Antibody Pending, Scl-70 Scleroderma Ab Pending, Double Strand DNA Ab Pending, Centromere B Antibody Pending 11/14/20 15:52: Glomerular Base Memb Ab Pending, Complement C3 Pending, Complement C4 Pending 11/14/20 15:52: RPR Pending 11/14/20 15:52: Serum Cryoglobulins Pending, Hepatitis A IgM Ab Pending, Hep Bs Antigen Pending, Hep B Core IgM Ab Pending, Hepatitis C Ab (EIA) Pending 11/14/20 15:52: HIV 1&2 Antibody Non-Reactive 11/14/20 15:52: PT 13.8, INR 1.1, APTT 32.0 11/14/20 16:21: POC Glucose 173 H 11/14/20 21:08: POC Glucose 249 H 11/14/20 22:20: Urine Color Yellow, Urine Clarity Clear, Urine pH 6.0, Ur Specific [place] 1.010, Urine Protein 30 H, Urine Glucose (UA) 50 H, Urine Ketones Negative, Urine Occult Blood 10 H, Urine Nitrite Negative, Urine Bilirubin Negative, Urine Urobilinogen Normal, Ur Leukocyte Esterase 500 H, Urine RBC 0 SEEN, Urine WBC 5-10 SEEN, Ur Squamous Epith Cells 0-5 SEEN, Urine Bacteria 1+, Urine Mucus 0 SEEN 11/15/20 05:55: WBC 11.0, RBC 4.11 L, Hgb 12.0, Hct 38.8, MCV 94.4, MCH 29.2, MCHC 30.9 L, RDW Std Deviation 47.6 H, RDW Coeff of Bre[place] 13.9, Plt Count 203, MPV 10.5, Immature Gran % (Auto) 0.500, Neut % (Auto) 73.5 H, Lymph % (Auto) 15.2 L, [place] % (Auto) 7.8, Eos % (Auto) 2.5, Baso % (Auto) 0.5, Absolute Neuts (auto) 8.1 H, Absolute Lymphs (auto) 1.67, Nucleated RBC % 0 11/15/20 05:55: Sodium 137, Potassium 4.6, Chloride 110 H, Carbon Dioxide 19.0 L, Anion Gap 8, BUN 54 H, Creatinine 6.42 H, Estim Creat Clear Calc 9.64, Est GFR (MDRD) Af Amer 9 L, Est GFR (MDRD) Non-Af 7 L, BUN/Creatinine Ratio 8.4 L, Glucose 161 H, Calcium 8.0 L, Phosphorus 7.8 H, Albumin 2.3 L 11/15/20 05:55: Random Vancomycin 39.8 H 11/15/20 06:29: POC Glucose 161 H 11/15/20 10:53: POC Glucose 130 H Current Medications Acetaminophen (Acetaminophen 325 Mg Tablet) 650 mg PO Q6H PRN PRN PRN Reason: Pain Score 1-10/Temp > 100.7 F Last Admin: 11/14/20 19:41 Dose: 650 mg Documented by: Albuterol Sulfate (Albuterol 2.5 Mg/3 Ml Vial.Neb.) 2.5 mg INHALATION Q4H PRN PRN PRN Reason: SOB &/OR WHEEZING Last Admin: 11/14/20 08:43 Dose: 2.5 mg Documented by: Bisacodyl (Bisacodyl 5 Mg Tablet) 5 mg PO DAILY [facility] Last Admin: 11/15/20 10:42 Dose: 5 mg Documented by: Ergocalciferol (Ergocalciferol 50,000 Unit Capsule) 50,000 unit PO Q7D [facility] Last Admin: 11/15/20 10:43 Dose: 50,000 unit Documented by: Sodium Chloride () 250 mls @ 15 mls/hr IV .[id number] PRN PRN Reason: Saline Flush Last Infusion: 11/15/20 10:55 Dose: 0 mls/hr Documented by: Sodium Chloride () 250 mls @ 15 mls/hr IV .[id number] PRN PRN Reason: Additional IVPB Infusion Ceftriaxone Sodium 2 gm/ (Sodium Chloride) 50 mls @ 100 mls/hr IV Q24 [facility] Last Infusion: 11/15/20 11:20 Dose: Infused Documented by: Sodium Chloride () 1,000 mls @ 75 mls/hr IV .[id number] [facility] Last Admin: 11/15/20 10:40 Dose: 75 mls/hr Documented by: Insulin Glargine (Insulin Glargine 100 Units/Ml Pen) 100 units SC DAILY [facility] Last Admin: 11/14/20 09:38 Dose: 100 u Documented by: Insulin Human Lispro (Insulin Lispro 100 Unit/Ml Insuln.Pen) 0 unit SC [facility]; Protocol Last Admin: 11/15/20 10:54 Dose: Not Given Documented by: L-Arginine/L-Glutamine/Calcium HMB (Rip (Unflavored) Packet) [facility] Last Admin: 11/15/20 10:42 Dose: Not Given Documented by: Levothyroxine Sodium (Levothyroxine 25 Mcg Tablet) 25 mcg PO DAILY@0600 [facility] Last Admin: 11/15/20 10:42 Dose: 25 mcg Documented by: Loratadine (Loratadine 10 Mg Tablet) 10 mg PO DAILY PRN PRN PRN Reason: ALLERGIES Multivitamins/Minerals (Multivitamins,Ther W-Minerals Tablet) 1 tablet PO DAILY@0800 [facility] Last Admin: 11/15/20 10:42 Dose: 1 tablet Documented by: Nicotine (Nicotine 21 Mg Patch) 21 mg TD DAILY [facility] Last Admin: 11/15/20 10:44 Dose: 21 mg Documented by: Ondansetron HCl (Ondansetron 4 Mg/2 Ml Vial) 4 mg IV Q8H PRN PRN PRN Reason: NAUSEA/VOMITING Last Admin: 11/12/20 19:09 Dose: 4 mg Documented by: Oxycodone HCl (Oxycodone 5 Mg Tablet) 5 mg PO Q6H PRN PRN PRN Reason: Pain Score 4-10 Last Admin: 11/14/20 22:26 Dose: 5 mg Documented by: Pantoprazole Sodium (Pantoprazole Sodium 20 Mg Tablet) 20 mg PO BID [facility] Last Admin: 11/15/20 10:42 Dose: 20 mg Documented by: Polysaccharide Iron Complex (Iron Polysaccharide Complex 150 Mg Capsule) [facility] Last Admin: 11/15/20 10:42 Dose: 150 mg Documented by: Sodium Bicarbonate (Sodium Bicarbonate 650 Mg Tablet) 650 mg PO TID [facility] Last Admin: 11/15/20 10:41 Dose: 650 mg Documented by: Sodium Chloride (0.9% Saline Lock 10 Ml Syringe) 10 - 40 ml IV UD PRN PRN Reason: SALINE FLUSH Last Admin: 11/12/20 08:07 Dose: 10 ml Documented by: Trazodone HCl (Trazodone 50 Mg Tablet) 100 mg PO QHS [facility] Last Admin: 11/14/20 21:09 Dose: 100 mg Documented by: Medical Necessity - Tobacco Use Smoking Status: Current every day smoker Assessment/Plan All Active Problems Osteomyelitis of toe of right foot (Resolved) Skin ulcer of left great toe with fat layer exposed (Acute) Diabetic foot ulcer (Acute) Foot ulcer, left (Acute) Cellulitis of left foot (Acute) Osteomyelitis (Acute) SEUN ATI with vanco nephrotoxicity also AIN in differential diagnosis Metabolic acidosis Hyperphosphatemia Patient is nonoliguric continue to measure strict I's and O's hold losartan avoid nephrotoxins major risks and benefits of dialysis including but not limited to heart attack stroke seizures infection explained to the patient voiced understanding and agrees to proceed with dialysis. Order was placed for tunneled dialysis catheter placement by surgery. We will initiate dialysis tomorrow. Start binders Follow-up on the renal biopsy result hopefully we can get light microscopy report by Friday my office will try to contact repeatedly the pathologist. d/w patient and donta
--- NOTE | 2020-11-15 12:55 | PCM.PN.ID ---
Patient Problems: Active and Suspected Problems Diabetic foot ulcer (Acute) Foot ulcer, left (Acute) Cellulitis of left foot (Acute) Osteomyelitis (Acute) Subjective: Feeling ok, making urine, no fever - Physical Exam Vitals/I&O's: Vital Signs Temp Pulse Resp BP Pulse Ox 97.2 F L 75 18 133/72 H 96 11/15/20 10:40 11/15/20 11:00 11/15/20 10:40 11/15/20 10:40 11/15/20 10:40 Oxygen Flow Rate (L/min) [4] 2 Oxygen Flow Rate (L/min) [3] 2 Oxygen Flow Rate (L/min) [2] 2 Oxygen Flow Rate (L/min) [1 ( 2 Initial Baseline)] Oxygen Flow Rate (L/min) 2 Oxygen Delivery Method [4] Nasal Cannula Oxygen Delivery Method [3] Nasal Cannula Oxygen Delivery Method [2] Nasal Cannula Oxygen Delivery Method [1 ( Room Air Initial Baseline)] Oxygen Delivery Method Room Air Weight: 108.862 kg Body Mass Index (BMI) 39.9 Finger Stick Blood Glucose 269 Intake and Output for Last 24 Hours 11/13/20 11/14/20 11/15/20 23:59 23:59 23:59 Intake Total 5687.08 / 5687.08 3274.58 / 3274.58 836.5 / 836.5 Output Total 400 / 400 300 / 300 Balance 5687.08 / 5687.08 2874.58 / 2874.58 536.5 / 536.5 General: Alert, Cooperative, No apparent distress Lungs: Clear to auscultation, Normal air movement Cardiovascular: Regular rate, Regular Rhythm Abdomen: Soft, Non Tender, Non-Distended Skin: Ulcer/ Wound - toe wrapped Microbiology Past 72 Hours 11/14/20 04:40 Urine, Clean Catch Urine Culture - Preliminary Culture exhibits no growth. 11/11/20 19:55 Blood Culture (Wb) - Left Forearm Blood Culture - Preliminary No growth in 48 hours. 11/11/20 20:10 Blood Culture (Wb) - Anticubital Right Blood Culture - Preliminary No growth in 48 hours. 11/12/20 07:30 Wound - Toe Gram Stain - Final 11/12/20 07:30 Wound - Toe Wound Culture - Final Staphylococcus epidermidis 11/12/20 07:30 Wound - Toe Anaerobic Culture - Final No anaerobic bacteria isolated. Laboratory Results 11/14/20 15:52: c-ANCA Antibody Pending, p-ANCA Antibody Pending 11/14/20 15:52: PABLO Screen Pending, DILLON-1 Antibody Pending, SS-A/Ro IgG Antibody Pending, SS-B/La IgG Antibody Pending, Sm (Guerra) Antibody Pending, COLLEGE TEACHER Antibody Pending, Scl-70 Scleroderma Ab Pending, Double Strand DNA Ab Pending, Centromere B Antibody Pending 11/14/20 15:52: Glomerular Base Memb Ab Pending, Complement C3 Pending, Complement C4 Pending 11/14/20 15:52: RPR Pending 11/14/20 15:52: Serum Cryoglobulins Pending, Hepatitis A IgM Ab Pending, Hep Bs Antigen Pending, Hep B Core IgM Ab Pending, Hepatitis C Ab (EIA) Pending 11/14/20 15:52: HIV 1&2 Antibody Non-Reactive 11/14/20 15:52: PT 13.8, INR 1.1, APTT 32.0 11/14/20 16:21: POC Glucose 173 H 11/14/20 21:08: POC Glucose 249 H 11/14/20 22:20: Urine Color Yellow, Urine Clarity Clear, Urine pH 6.0, Ur Specific [place] 1.010, Urine Protein 30 H, Urine Glucose (UA) 50 H, Urine Ketones Negative, Urine Occult Blood 10 H, Urine Nitrite Negative, Urine Bilirubin Negative, Urine Urobilinogen Normal, Ur Leukocyte Esterase 500 H, Urine RBC 0 SEEN, Urine WBC 5-10 SEEN, Ur Squamous Epith Cells 0-5 SEEN, Urine Bacteria 1+, Urine Mucus 0 SEEN 11/15/20 05:55: WBC 11.0, RBC 4.11 L, Hgb 12.0, Hct 38.8, MCV 94.4, MCH 29.2, MCHC 30.9 L, RDW Std Deviation 47.6 H, RDW Coeff of Bre[place] 13.9, Plt Count 203, MPV 10.5, Immature Gran % (Auto) 0.500, Neut % (Auto) 73.5 H, Lymph % (Auto) 15.2 L, [place] % (Auto) 7.8, Eos % (Auto) 2.5, Baso % (Auto) 0.5, Absolute Neuts (auto) 8.1 H, Absolute Lymphs (auto) 1.67, Nucleated RBC % 0 11/15/20 05:55: Sodium 137, Potassium 4.6, Chloride 110 H, Carbon Dioxide 19.0 L, Anion Gap 8, BUN 54 H, Creatinine 6.42 H, Estim Creat Clear Calc 9.64, Est GFR (MDRD) Af Amer 9 L, Est GFR (MDRD) Non-Af 7 L, BUN/Creatinine Ratio 8.4 L, Glucose 161 H, Calcium 8.0 L, Phosphorus 7.8 H, Albumin 2.3 L 11/15/20 05:55: Random Vancomycin 39.8 H 11/15/20 06:29: POC Glucose 161 H 11/15/20 10:53: POC Glucose 130 H Current Medications Acetaminophen (Acetaminophen 325 Mg Tablet) 650 mg PO Q6H PRN PRN PRN Reason: Pain Score 1-10/Temp > 100.7 F Last Admin: 11/14/20 19:41 Dose: 650 mg Documented by: Albuterol Sulfate (Albuterol 2.5 Mg/3 Ml Vial.Neb.) 2.5 mg INHALATION Q4H PRN PRN PRN Reason: SOB &/OR WHEEZING Last Admin: 11/14/20 08:43 Dose: 2.5 mg Documented by: Bisacodyl (Bisacodyl 5 Mg Tablet) 5 mg PO DAILY [facility] Last Admin: 11/15/20 10:42 Dose: 5 mg Documented by: Ergocalciferol (Ergocalciferol 50,000 Unit Capsule) 50,000 unit PO Q7D [facility] Last Admin: 11/15/20 10:43 Dose: 50,000 unit Documented by: Sodium Chloride () 250 mls @ 15 mls/hr IV .[id number] PRN PRN Reason: Saline Flush Last Infusion: 11/15/20 10:55 Dose: 0 mls/hr Documented by: Sodium Chloride () 250 mls @ 15 mls/hr IV .[id number] PRN PRN Reason: Additional IVPB Infusion Ceftriaxone Sodium 2 gm/ (Sodium Chloride) 50 mls @ 100 mls/hr IV Q24 [facility] Last Infusion: 11/15/20 11:20 Dose: Infused Documented by: Sodium Chloride () 1,000 mls @ 75 mls/hr IV .[id number] [facility] Last Admin: 11/15/20 10:40 Dose: 75 mls/hr Documented by: Insulin Glargine (Insulin Glargine 100 Units/Ml Pen) 100 units SC DAILY [facility] Last Admin: 11/14/20 09:38 Dose: 100 u Documented by: Insulin Human Lispro (Insulin Lispro 100 Unit/Ml Insuln.Pen) 0 unit SC [facility]; Protocol Last Admin: 11/15/20 10:54 Dose: Not Given Documented by: L-Arginine/L-Glutamine/Calcium HMB ([facility] (Unflavored) Packet) [facility] Last Admin: 11/15/20 10:42 Dose: Not Given Documented by: Levothyroxine Sodium (Levothyroxine 25 Mcg Tablet) 25 mcg PO DAILY@0600 [facility] Last Admin: 11/15/20 10:42 Dose: 25 mcg Documented by: Loratadine (Loratadine 10 Mg Tablet) 10 mg PO DAILY PRN PRN PRN Reason: ALLERGIES Multivitamins/Minerals (Multivitamins,Ther W-Minerals Tablet) 1 tablet PO DAILY@0800 [facility] Last Admin: 11/15/20 10:42 Dose: 1 tablet Documented by: Nicotine (Nicotine 21 Mg Patch) 21 mg TD DAILY [facility] Last Admin: 11/15/20 10:44 Dose: 21 mg Documented by: Ondansetron HCl (Ondansetron 4 Mg/2 Ml Vial) 4 mg IV Q8H PRN PRN PRN Reason: NAUSEA/VOMITING Last Admin: 11/12/20 19:09 Dose: 4 mg Documented by: Oxycodone HCl (Oxycodone 5 Mg Tablet) 5 mg PO Q6H PRN PRN PRN Reason: Pain Score 4-10 Last Admin: 11/14/20 22:26 Dose: 5 mg Documented by: Pantoprazole Sodium (Pantoprazole Sodium 20 Mg Tablet) 20 mg PO BID [facility] Last Admin: 11/15/20 10:42 Dose: 20 mg Documented by: Polysaccharide Iron Complex (Iron Polysaccharide Complex 150 Mg Capsule) [facility] Last Admin: 11/15/20 10:42 Dose: 150 mg Documented by: Sevelamer Carbonate (Sevelamer Carbonate 800 Mg Tablet) [facility] [place] Sodium Bicarbonate (Sodium Bicarbonate 650 Mg Tablet) 650 mg PO TID [facility] Last Admin: 11/15/20 10:41 Dose: 650 mg Documented by: Sodium Chloride (0.9% Saline Lock 10 Ml Syringe) 10 - 40 ml IV UD PRN PRN Reason: SALINE FLUSH Last Admin: 11/12/20 08:07 Dose: 10 ml Documented by: Trazodone HCl (Trazodone 50 Mg Tablet) 100 mg PO QHS [facility] Last Admin: 11/14/20 21:09 Dose: 100 mg Documented by: Medical Necessity - Tobacco Use Smoking Status: Current every day smoker Route of nutrition/ use of supplements: [] Nutritional Intake: [] IV Site: [] Carrillo Catheter: [] - Assessment/Plan Antibiotics: [] Assessment/Plan: [] Active and Suspected Problems Diabetic foot ulcer (Acute) Foot ulcer, left (Acute) Cellulitis of left foot (Acute) L 1st toe osteo with DM neuropathy - cx with MSSE. New SEUN after vanc trough of 49. Cr worse this AM, neph following, HD planned. Cont ceftriaxone. Will follow
--- NOTE | 2020-11-15 14:54 | CON.PCM_ITS ---
Problem List (1) SEUN (acute kidney injury) Status: Acute (2) Vascular catheter fitting or adjustment Status: Acute Reason for Consult Date of Consultation: 11/15/20 History of Present Illness: The patient is a 49 year old F w/pmh as below noted on November 11 with first toe pain redness ulcerations and fever and she was admitted for IV antibiotics. She was started on vancomycin and Zosyn and she was seen by podiatry. A trough vanco level was 49 and a creatinine was noted to increase to 5.2 today which prompted renal consult from normal range on admission. Patient was started yesterday on IV fluids but those were stopped because she felt that she developed puffiness in her hands and feet. She denies shortness of breath nausea vomiting diarrhea abdominal pain dysuria fever chills headache flank pain skin rashes hemoptysis hematochezia melena. I have been consulted by nephrology for placement of a tunneled dialysis catheter. Past Medical History Past Medical History (Chronic Problems): Chronic Problems Meniere disease (Chronic) Chronic ulcer of right foot with fat layer exposed (Chronic) Type 2 diabetes mellitus with diabetic polyneuropathy (Chronic) Hammer toe of right foot (Chronic) Obesity (BMI 30-39.9) (Chronic) Vertigo (Chronic) Hyperlipidemia (Chronic) Fibromyalgia (Chronic) Depression with anxiety (Chronic) Allergies clindamycin Allergy (Verified 11/11/20 19:37) Hives erythromycin base [From E-Mycin] Allergy (Verified 11/11/20 19:37) Hives Home Medications: Ambulatory Orders Medication Instructions Recorded Hydroxyzine Pamoate [Vistaril] 100 mg PO QHS PRN PRN 05/18/19 traZODone [Desyrel] 100 - 200 mg PO QHS 06/12/19 Albuterol Inhaler [Ventolin Hfa] 1 - 2 puff INHALATION Q6H PRN PRN 08/30/19 Atorvastatin Calcium [Lipitor] 80 mg PO QHS 08/30/19 Dulaglutide [Trulicity] 0.75 mg SQ WE 08/30/19 Duloxetine HCl 60 mg PO DAILY@1800 03/21/20 Losartan Potassium [Cozaar] 50 mg PO DAILY 03/21/20 Multivitamin with Minerals 1 tab PO DAILY 03/21/20 [Multiple Vitamin] Pregabalin [Lyrica] 100 mg PO BID 03/21/20 Acetaminophen [Tylenol Tablet] 650 mg PO Q6H PRN PRN tab 03/24/20 Ergocalciferol [Vitamin D] 50,000 unit PO WE 10/17/20 Insulin Degludec [Tresiba 100 unit SQ DAILY 10/17/20 Flextouch U-100] Iron Polysaccharide Complex 150 mg PO DAILY 11/11/20 [Ferrex 150] Levothyroxine [Synthroid] 25 mcg PO DAILY 11/11/20 Pantoprazole Sodium [Protonix] 20 mg PO BID 11/11/20 Surgical History: appendectomy, - - T+A, BLTL, appendectomy, right great toe amputation. Right second toe partial amputation. 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 Paternal History Items: Asthma, - - Denies known paternal medical history including cardiac history. Review of Systems Constitutional: Denies: Chills, Fever, Weight Change Cardiovascular: Denies: Chest Pain, Chest Pressure, Chest Tightness, Pal pitations Respiratory: Denies: Cough, Hemoptysis, Shortness of breath at rest, Shortness of breath upon exertion, Wheezing Gastrointestinal: Denies: Abdominal Pain, Constipation, Diarrhea, Hematemesis, Nausea, Melena, Vomiting Patient Problems: Active and Suspected Problems Diabetic foot ulcer (Acute) Foot ulcer, left (Acute) Cellulitis of left foot (Acute) Osteomyelitis (Acute) - Physical Exam Vitals/I&O's: Vital Signs Temp Pulse Resp BP Pulse Ox 97.2 F L 75 18 133/72 H 96 11/15/20 10:40 11/15/20 11:00 11/15/20 10:40 11/15/20 10:40 11/15/20 10:40 Oxygen Flow Rate (L/min) [4] 2 Oxygen Flow Rate (L/min) [3] 2 Oxygen Flow Rate (L/min) [2] 2 Oxygen Flow Rate (L/min) [1 ( 2 Initial Baseline)] Oxygen Flow Rate (L/min) 2 Oxygen Delivery Method [4] Nasal Cannula Oxygen Delivery Method [3] Nasal Cannula Oxygen Delivery Method [2] Nasal Cannula Oxygen Delivery Method [1 ( Room Air Initial Baseline)] Oxygen Delivery Method Room Air Weight: 240 lb Body Mass Index (BMI) 39.9 Finger Stick Blood Glucose 269 Intake and Output for Last 24 Hours 11/13/20 11/14/20 11/15/20 23:59 23:59 23:59 Intake Total 5687.08 / 5687.08 3274.58 / 3274.58 836.5 / 836.5 Output Total 400 / 400 300 / 300 Balance 5687.08 / 5687.08 2874.58 / 2874.58 536.5 / 536.5 General: Alert, Oriented x3 Lungs: Clear to auscultation Cardiovascular: Regular rate, Regular Rhythm, No murmurs Abdomen: Bowel Sounds Present, Soft, Non Tender, Non-Distended Microbiology Past 72 Hours 11/14/20 04:40 Urine, Clean Catch Urine Culture - Preliminary Culture exhibits no growth. 11/11/20 19:55 Blood Culture (Wb) - Left Forearm Blood Culture - Preliminary No growth in 48 hours. 11/11/20 20:10 Blood Culture (Wb) - Anticubital Right Blood Culture - Preliminary No growth in 48 hours. 11/12/20 07:30 Wound - Toe Gram Stain - Final 11/12/20 07:30 Wound - Toe Wound Culture - Final Staphylococcus epidermidis 11/12/20 07:30 Wound - Toe Anaerobic Culture - Final No anaerobic bacteria isolated. Laboratory Results 11/14/20 15:52: c-ANCA Antibody Pending, p-ANCA Antibody Pending 11/14/20 15:52: PABLO Screen Pending, DILLON-1 Antibody Pending, SS-A/Ro IgG Antibody Pending, SS-B/La IgG Antibody Pending, Sm (Guerra) Antibody Pending, CLOCK SMITH Antibody Pending, Scl-70 Scleroderma Ab Pending, Double Strand DNA Ab Pending, Centromere B Antibody Pending 11/14/20 15:52: Glomerular Base Memb Ab Pending, Complement C3 Pending, Complement C4 Pending 11/14/20 15:52: RPR Pending 11/14/20 15:52: Serum Cryoglobulins Pending, Hepatitis A IgM Ab Pending, Hep Bs Antigen Pending, Hep B Core IgM Ab Pending, Hepatitis C Ab (EIA) Pending 11/14/20 15:52: HIV 1&2 Antibody Non-Reactive 11/14/20 15:52: PT 13.8, INR 1.1, APTT 32.0 11/14/20 16:21: POC Glucose 173 H 11/14/20 21:08: POC Glucose 249 H 11/14/20 22:20: Urine Color Yellow, Urine Clarity Clear, Urine pH 6.0, Ur Specific [place] 1.010, Urine Protein 30 H, Urine Glucose (UA) 50 H, Urine Ketones Negative, Urine Occult Blood 10 H, Urine Nitrite Negative, Urine Bilirubin Negative, Urine Urobilinogen Normal, Ur Leukocyte Esterase 500 H, Urine RBC 0 SEEN, Urine WBC 5-10 SEEN, Ur Squamous Epith Cells 0-5 SEEN, Urine Bacteria 1+, Urine Mucus 0 SEEN 11/15/20 05:55: WBC 11.0, RBC 4.11 L, Hgb 12.0, Hct 38.8, MCV 94.4, MCH 29.2, MC HC 30.9 L, RDW Std Deviation 47.6 H, RDW Coeff of Bre[place] 13.9, Plt Count 203, MPV 10.5, Immature Gran % (Auto) 0.500, Neut % (Auto) 73.5 H, Lymph % (Auto) 15.2 L, [place] % (Auto) 7.8, Eos % (Auto) 2.5, Baso % (Auto) 0.5, Absolute Neuts (auto) 8.1 H, Absolute Lymphs (auto) 1.67, Nucleated RBC % 0 11/15/20 05:55: Sodium 137, Potassium 4.6, Chloride 110 H, Carbon Dioxide 19.0 L , Anion Gap 8, BUN 54 H, Creatinine 6.42 H, Estim Creat Clear Calc 9.64, Est GFR (MDRD) Af Amer 9 L, Est GFR (MDRD) Non-Af 7 L, BUN/Creatinine Ratio 8.4 L, Glucose 161 H, Calcium 8.0 L, Phosphorus 7.8 H, Albumin 2.3 L 11/15/20 05:55: Random Vancomycin 39.8 H 11/15/20 06:29: POC Glucose 161 H 11/15/20 10:53: POC Glucose 130 H Current Medications Acetaminophen (Acetaminophen 325 Mg Tablet) 650 mg PO Q6H PRN PRN PRN Reason: Pain Score 1-10/Temp > 100.7 F Last Admin: 11/14/20 19:41 Dose: 650 mg Documented by: Albuterol Sulfate (Albuterol 2.5 Mg/3 Ml Vial.Neb.) 2.5 mg INHALATION Q4H PRN PRN PRN Reason: SOB &/OR WHEEZING Last Admin: 11/14/20 08:43 Dose: 2.5 mg Documented by: Bisacodyl (Bisacodyl 5 Mg Tablet) 5 mg PO DAILY [facility] Last Admin: 11/15/20 10:42 Dose: 5 mg Documented by: Ergocalciferol (Ergocalciferol 50,000 Unit Capsule) 50,000 unit PO Q7D [facility] Last Admin: 11/15/20 10:43 Dose: 50,000 unit Documented by: Sodium Chloride () 250 mls @ 15 mls/hr IV .[id number] PRN PRN Reason: Saline Flush Last Infusion: 11/15/20 10:55 Dose: 0 mls/hr Documented by: Sodium Chloride () 250 mls @ 15 mls/hr IV .[id number] PRN PRN Reason: Additional IVPB Infusion Ceftriaxone Sodium 2 gm/ (Sodium Chloride) 50 mls @ 100 mls/hr IV Q24 [facility] Last Infusion: 11/15/20 11:20 Dose: Infused Documented by: Sodium Chloride () 1,000 mls @ 75 mls/hr IV .[id number] [facility] Last Admin: 11/15/20 10:40 Dose: 75 mls/hr Documented by: Insulin Glargine (Insulin Glargine 100 Units/Ml Pen) 100 units SC DAILY [facility] Last Admin: 11/14/20 09:38 Dose: 100 u Documented by: Insulin Human Lispro (Insulin Lispro 100 Unit/Ml Insuln.Pen) 0 unit SC [facility]; Protocol Last Admin: 11/15/20 10:54 Dose: Not Given Documented by: L-Arginine/L-Glutamine/Calcium HMB (Rip (Unflavored) Packet) 1 packet PO BIDCM [facility] Last Admin: 11/15/20 10:42 Dose: Not Given Documented by: Levothyroxine Sodium (Levothyroxine 25 Mcg Tablet) 25 mcg PO DAILY@0600 [facility] Last Admin: 11/15/20 10:42 Dose: 25 mcg Documented by: Loratadine (Loratadine 10 Mg Tablet) 10 mg PO DAILY PRN PRN PRN Reason: ALLERGIES Multivitamins/Minerals (Multivitamins,Ther W-Minerals Tablet) 1 tablet PO DAILY@0800 [facility] Last Admin: 11/15/20 10:42 Dose: 1 tablet Documented by: Nicotine (Nicotine 21 Mg Patch) 21 mg TD DAILY [facility] Last Admin: 11/15/20 10:44 Dose: 21 mg Documented by: Ondansetron HCl (Ondansetron 4 Mg/2 Ml Vial) 4 mg IV Q8H PRN PRN PRN Reason: NAUSEA/VOMITING Last Admin: 11/12/20 19:09 Dose: 4 mg Documented by: Oxycodone HCl (Oxycodone 5 Mg Tablet) 5 mg PO Q6H PRN PRN PRN Reason: Pain Score 4-10 Last Admin: 11/14/20 22:26 Dose: 5 mg Documented by: Pantoprazole Sodium (Pantoprazole Sodium 20 Mg Tablet) 20 mg PO BID [facility] Last Admin: 11/15/20 10:42 Dose: 20 mg Documented by: Polysaccharide Iron Complex (Iron Polysaccharide Complex 150 Mg Capsule) 150 mg PO DAILYCM [facility] Last Admin: 11/15/20 10:42 Dose: 150 mg Documented by: Sevelamer Carbonate (Sevelamer Carbonate 800 Mg Tablet) 800 mg PO TIDCM [facility] Sodium Bicarbonate (Sodium Bicarbonate 650 Mg Tablet) 650 mg PO TID [facility] Last Admin: 11/15/20 10:41 Dose: 650 mg Documented by: Sodium Chloride (0.9% Saline Lock 10 Ml Syringe) 10 - 40 ml IV UD PRN PRN Reason: SALINE FLUSH Last Admin: 11/12/20 08:07 Dose: 10 ml Documented by: Trazodone HCl (Trazodone 50 Mg Tablet) 100 mg PO QHS [facility] Last Admin: 11/14/20 21:09 Dose: 100 mg Documented by: Assessment/Plan All Active Problems Osteomyelitis of toe of right foot (Resolved) Skin ulcer of left great toe with fat layer exposed (Acute) Diabetic foot ulcer (Acute) Foot ulcer, left (Acute) Cellulitis of left foot (Acute) Osteomyelitis (Acute) SEUN (acute kidney injury) (Acute) Vascular catheter fitting or adjustment (Acute) I am going to place a right internal jugular tunneled dialysis catheter. Risk benefits to include bleeding infection possible pneumothorax with possible infections later which could require this to be removed prematurely. Patient also understands the general surgery holes risk for Covid disease as well as blood clots heart attacks pneumonias and strokes up to and including .
[2020-11-15 15:01] LABS: Bedside Glucose 195 mg/dL (70-110)
--- NOTE | 2020-11-15 15:06 | CASEMGMT ---
Pt qualifies for a Palliative referral per the [facility] palliative screening tool at this time. Dr. Pineda aware and states ok for Palliative c/s at this time. Palliative updated at this time. Anjali WOODS CM
--- NOTE | 2020-11-15 15:30 | CASEMGMT ---
Per Dr. Preciado, pt will need OP dialysis set up. Pt is currently in OR getting a tunnel cath placed, so this RN CM unable to speak with pt regarding choice for local dialysis center at this time. CM to follow. Anjali RN CM
[2020-11-15] MEDS: Cefazolin 2 GM in 0.9% Normal Saline 100 ML IV (15:44)
[2020-11-15] MEDS: Lidocaine 1% (30 ml sdv) 30 ML Vial (15:52)
[2020-11-15] MEDS: Bupivacaine Mpf 0.5% 30 ML VIAL (15:52)
[2020-11-15] MEDS: Heparin 10,000 UNITS/10 ML Vial 10000 UNITS (16:00)
--- NOTE | 2020-11-15 16:06 | PCM.PN.HOSP ---
Patient Problems: Active and Suspected Problems Diabetic foot ulcer (Acute) Foot ulcer, left (Acute) Cellulitis of left foot (Acute) Osteomyelitis (Acute) SEUN (acute kidney injury) (Acute) Vascular catheter fitting or adjustment (Acute) Reason for Visit: Follow-up on acute SEUN/cellulitis of the left foot/ulcer Subjective: Patient was seen and examined. She had a kidney biopsy done today and a tunneled catheter placed. Feels well. Complains of still feeling swollen. Denied any shortness of breath. Objective: Physical exam: General: Alert, Oriented x3, Cooperative, No apparent distress, Well developed HEENT: Atraumatic, PERRLA, EOMI, Normocephalic Oral: Moist Mucosa Neck: Supple, No JVD, Trachea Midline, Thyroid Normal Size and Texture Lungs: Clear to auscultation, Normal air movement, No rhonchi, No wheeze, No rales Cardiovascular: Regular rate, Regular Rhythm, Normal S1, Normal S2, No murmurs, PMI Normal, No rub noted, No Gallop Abdomen: Bowel Sounds Present, Soft, Non Tender, Non-Distended Extremities: No clubbing, No cyanosis, No edema, Capillary Refill Less than 3 Seconds Skin: No rashes, No breakdown Musculoskeletal: No Tenderness to Palpation of Joints or Extremities Neurological: Cranial nerves II-XII grossly intact, Neuro grossly intact Psych/Mental Status: Normal Affect, Appropriate, Alert and oriented to time, place, person, mood and affect Vitals/I&O's: Vital Signs Temp Pulse Resp BP Pulse Ox 97.2 F L 75 18 133/72 H 96 11/15/20 10:40 11/15/20 11:00 11/15/20 10:40 11/15/20 10:40 11/15/20 10:40 Oxygen Flow Rate (L/min) [4] 2 Oxygen Flow Rate (L/min) [3] 2 Oxygen Flow Rate (L/min) [2] 2 Oxygen Flow Rate (L/min) [1 ( 2 Initial Baseline)] Oxygen Flow Rate (L/min) 2 Oxygen Delivery Method [4] Nasal Cannula Oxygen Delivery Method [3] Nasal Cannula Oxygen Delivery Method [2] Nasal Cannula Oxygen Delivery Method [1 ( Room Air Initial Baseline)] Oxygen Delivery Method Room Air Weight: 108.862 kg Body Mass Index (BMI) 39.9 Finger Stick Blood Glucose 269 Intake and Output for Last 24 Hours 11/13/20 11/14/20 11/15/20 23:59 23:59 23:59 Intake Total 5687.08 / 5687.08 3274.58 / 3274.58 836.5 / 836.5 Output Total 400 / 400 300 / 300 Balance 5687.08 / 5687.08 2874.58 / 2874.58 536.5 / 536.5 Microbiology Past 72 Hours 11/14/20 04:40 Urine, Clean Catch Urine Culture - Preliminary Culture exhibits no growth. 11/11/20 19:55 Blood Culture (Wb) - Left Forearm Blood Culture - Preliminary No growth in 48 hours. 11/11/20 20:10 Blood Culture (Wb) - Anticubital Right Blood Culture - Preliminary No growth in 48 hours. 11/12/20 07:30 Wound - Toe Gram Stain - Final 11/12/20 07:30 Wound - Toe Wound Culture - Final Staphylococcus epidermidis 11/12/20 07:30 Wound - Toe Anaerobic Culture - Final No anaerobic bacteria isolated. Laboratory Results 11/14/20 15:52: HIV 1&2 Antibody Non-Reactive 11/14/20 15:52: PT 13.8, INR 1.1, APTT 32.0 11/14/20 16:21: POC Glucose 173 H 11/14/20 21:08: POC Glucose 249 H 11/14/20 22:20: Urine Color Yellow, Urine Clarity Clear, Urine pH 6.0, Ur Specific [place] 1.010, Urine Protein 30 H, Urine Glucose (UA) 50 H, Urine Ketones Negative, Urine Occult Blood 10 H, Urine Nitrite Negative, Urine Bilirubin Negative, Urine Urobilinogen Normal, Ur Leukocyte Esterase 500 H, Urine RBC 0 SEEN, Urine WBC 5-10 SEEN, Ur Squamous Epith Cells 0-5 SEEN, Urine Bacteria 1+, Urine Mucus 0 SEEN 11/15/20 05:55: WBC 11.0, RBC 4.11 L, Hgb 12.0, Hct 38.8, MCV 94.4, MCH 29.2, MCHC 30.9 L, RDW Std Deviation 47.6 H, RDW Coeff of [place] 13.9, Plt Count 203, MPV 10.5, Immature Gran % (Auto) 0.500, Neut % (Auto) 73.5 H, Lymph % (Auto) 15.2 L, [place] % (Auto) 7.8, Eos % (Auto) 2.5, Baso % (Auto) 0.5, Absolute Neuts (auto) 8.1 H, Absolute Lymphs (auto) 1.67, Nucleated RBC % 0 11/15/20 05:55: Sodium 137, Potassium 4.6, Chloride 110 H, Carbon Dioxide 19.0 L, Anion Gap 8, BUN 54 H, Creatinine 6.42 H, Estim Creat Clear Calc 9.64, Est GFR (MDRD) Af Amer 9 L, Est GFR (MDRD) Non-Af 7 L, BUN/Creatinine Ratio 8.4 L, Glucose 161 H, Calcium 8.0 L, Phosphorus 7.8 H, Albumin 2.3 L 11/15/20 05:55: Random Vancomycin 39.8 H 11/15/20 06:29: POC Glucose 161 H 11/15/20 10:53: POC Glucose 130 H 11/15/20 14:53: POC Glucose 195 H Current Medications Acetaminophen (Acetaminophen 325 Mg Tablet) 650 mg PO Q6H PRN PRN PRN Reason: Pain Score 1-10/Temp > 100.7 F Last Admin: 11/14/20 19:41 Dose: 650 mg Documented by: Albuterol Sulfate (Albuterol 2.5 Mg/3 Ml Vial.Neb.) 2.5 mg INHALATION Q4H PRN PRN PRN Reason: SOB &/OR WHEEZING Last Admin: 11/14/20 08:43 Dose: 2.5 mg Documented by: Bisacodyl (Bisacodyl 5 Mg Tablet) 5 mg PO DAILY [facility] Last Admin: 11/15/20 10:42 Dose: 5 mg Documented by: Ergocalciferol (Ergocalciferol 50,000 Unit Capsule) 50,000 unit PO Q7D [facility] Last Admin: 11/15/20 10:43 Dose: 50,000 unit Documented by: Sodium Chloride () 250 mls @ 15 mls/hr IV .[id number] PRN PRN Reason: Saline Flush Last Infusion: 11/15/20 10:55 Dose: 0 mls/hr Documented by: Sodium Chloride () 250 mls @ 15 mls/hr IV .[id number] PRN PRN Reason: Additional IVPB Infusion Ceftriaxone Sodium 2 gm/ (Sodium Chloride) 50 mls @ 100 mls/hr IV Q24 [facility] Last Infusion: 11/15/20 11:20 Dose: Infused Documented by: Sodium Chloride () 1,000 mls @ 75 mls/hr IV .[id number] [facility] Last Admin: 11/15/20 10:40 Dose: 75 mls/hr Documented by: Insulin Glargine (Insulin Glargine 100 Units/Ml Pen) 100 units SC DAILY [facility] Last Admin: 11/14/20 09:38 Dose: 100 u Documented by: Insulin Human Lispro (Insulin Lispro 100 Unit/Ml Insuln.Pen) 0 unit SC [facility]; Protocol Last Admin: 11/15/20 10:54 Dose: Not Given Documented by: L-Arginine/L-Glutamine/Calcium HMB (Rip (Unflavored) Packet) [facility] Last Admin: 11/15/20 10:42 Dose: Not Given Documented by: Levothyroxine Sodium (Levothyroxine 25 Mcg Tablet) 25 mcg PO DAILY@0600 [facility] Last Admin: 11/15/20 10:42 Dose: 25 mcg Documented by: Loratadine (Loratadine 10 Mg Tablet) 10 mg PO DAILY PRN PRN PRN Reason: ALLERGIES Multivitamins/Minerals (Multivitamins,Ther W-Minerals Tablet) 1 tablet PO DAILY@0800 [facility] Last Admin: 11/15/20 10:42 Dose: 1 tablet Documented by: Nicotine (Nicotine 21 Mg Patch) 21 mg TD DAILY [facility] Last Admin: 11/15/20 10:44 Dose: 21 mg Documented by: Ondansetron HCl (Ondansetron 4 Mg/2 Ml Vial) 4 mg IV Q8H PRN PRN PRN Reason: NAUSEA/VOMITING Last Admin: 11/12/20 19:09 Dose: 4 mg Documented by: Oxycodone HCl (Oxycodone 5 Mg Tablet) 5 mg PO Q6H PRN PRN PRN Reason: Pain Score 4-10 Last Admin: 11/14/20 22:26 Dose: 5 mg Documented by: Pantoprazole Sodium (Pantoprazole Sodium 20 Mg Tablet) 20 mg PO BID [facility] Last Admin: 11/15/20 10:42 Dose: 20 mg Documented by: Polysaccharide Iron Complex (Iron Polysaccharide Complex 150 Mg Capsule) [facility] Last Admin: 11/15/20 10:42 Dose: 150 mg Documented by: Sevelamer Carbonate (Sevelamer Carbonate 800 Mg Tablet) 800 mg PO TIDCM [facility] Sodium Bicarbonate (Sodium Bicarbonate 650 Mg Tablet) 650 mg PO TID [facility] Last Admin: 11/15/20 10:41 Dose: 650 mg Documented by: Sodium Chloride (0.9% Saline Lock 10 Ml Syringe) 10 - 40 ml IV UD PRN PRN Reason: SALINE FLUSH Last Admin: 11/12/20 08:07 Dose: 10 ml Documented by: Trazodone HCl (Trazodone 50 Mg Tablet) 100 mg PO QHS [facility] Last Admin: 11/14/20 21:09 Dose: 100 mg Documented by: Medical Necessity - Tobacco Use Smoking Status: Current every day smoker Assessment/Plan All Active Problems Osteomyelitis of toe of right foot (Resolved) Skin ulcer of left great toe with fat layer exposed (Acute) Diabetic foot ulcer (Acute) Foot ulcer, left (Acute) Cellulitis of left foot (Acute) Osteomyelitis (Acute) SEUN (acute kidney injury) (Acute) Vascular catheter fitting or adjustment (Acute) 1. Acute kidney injury, likely ATN vs AIN vs vancomycin side-effect Creatinine is worse at 6.42. Baseline Cr <1, Cr now >5 Kidney USG unremarkable Status post kidney biopsy and tunneled dialysis catheter; dialysis planned for a.m. Will repeat labs in am 2. Acute cellulitis/osteomyelitis of the left great toe, wound cultures growing staph epidermidis On IV ceftriaxone, podiatry and ID following 3. Type 2 DM complicated by diabetic neuropathy, BS fairly controlled Continue on Lantus and ISS Hold Lyrica and pregabalin 4. Hypothyroidism, continue on synthroid 5. Hypertension, controlled, continue to monitor Home losartan on hold 6. DVT PPx- SCDs - Lovenox on hold for biopsy Inpatient E&M: 00395 Subs Hosp L3
--- NOTE | 2020-11-15 16:24 | PCM.OPRPT ---
Problem List (1) SEUN (acute kidney injury) Status: Acute (2) Vascular catheter fitting or adjustment Status: Acute Report of Operation Date of Procedure: 11/15/20 Pre-Operative Diagnosis: 1. Vascular fitting and adjustment. 2. Acute kidney injury Post-Operative Diagnosis: Same Surgery/Procedure Performed:: Placement of a tunneled palindrome IV dialysis catheter (right internal jugular) Type of Anesthesia:: Local MAC Anesthesiologist: Jd Romo Estimated Blood Loss (mL): <25 cc Description of Procedure: Patient was brought into the operating room. Placed in the supine position. Position of the bed was then placed head down. Ultrasound of the neck revealed the location of the internal jugular vein. The neck and chest were marked appropriately. The neck and chest were then sterilely prepped and draped in the usual fashion. Local was injected into the neck. Seldinger's technique was used to gain access into the internal jugular vein. Guidewire was placed over the needle the needle was removed. Fluoroscopy was used to confirm proper placement of the wire. I used the catheter to wale an area on the chest I injected local into the chest and more local into the neck I lengthen my incision on the neck and made an incision on the neck I dilated these areas with a small hemostat. I injected local in the subcutaneous tissues. I tunneled from the chest up into the neck and brought the palindrome catheter through. I then used sequential dilators over the guidewire placing the single-lumen sheath and dilator into the internal jugular vein. I removed the guidewire and the dilator. I placed the palindrome catheter through the introducer remove the sheath and the catheter was then placed completely into the internal jugular vein. I used fluoroscopy showing that there was a gentle bend in the catheter and it lay perfectly straight into the superior vena cava. I flushed it with 2 cc of Hepflush in both of the lines. I sutured the neck incision with a 3-0 Vicryl the chest incision with a 3-0 Vicryl then I secured the catheter to the skin with 2 sutures of 2-0 nylon. Dermabond was applied sterile dressings were applied and the patient tolerated the procedure well. Portable chest x-ray was obtained. - Admit VTE Documentation VTE Present on Admission: No VTE Mechan Device Prophylaxis: SCD's VTE Pharm Prophylaxis ordered?: No Reason prophylaxis not ordered:: Treatment Not Indicated - Procedures Cardiovascular CF Procedures [id number]: [id number] Insert tunneled cv cath
--- NOTE | 2020-11-15 16:25 | RAD_ITS ---
STUDY: X-RAY CHEST REASON FOR EXAM: Female, 49 years old. DIALYSIS CATH PLACEMENT TECHNIQUE: Single frontal view of the chest. COMPARISON: 08/30/2019 FINDINGS: There is no new focal consolidation. There is a new right sided dialysis catheter in place with its tip terminating within the expected region of the superior vena cava. There is no pneumothorax visualized. Normal size heart. Normal mediastinum and liam. Normal visualized pulmonary arteries. Normal visualized aortic arch and descending thoracic aorta. Normal visualized thoracic spine. Normal visualized ribs, clavicles, and shoulders. There is no demonstrated abnormality of the visualized soft tissue structures of the upper abdomen. RAD/CXR for Line Placement IMPRESSION: New central venous catheter in a satisfactory position. No acute cardiopulmonary process. Electronically Signed: Sheridan Buck MD at 16:42 EST Tel , Service support ,
[2020-11-15 16:55] LABS: Bedside Glucose 159 mg/dL (70-110)
[2020-11-15] MEDS: Insulin Lispro 100 UNIT/ML INSULN.PEN SC ×2 (17:14→20:45)
[2020-11-15] MEDS: SEVELAMER CARBONATE 800 MG TABLET PO (17:14)
[2020-11-15] MEDS: Acetaminophen 325 MG Tablet 650 MG PO (20:27)
[2020-11-15] MEDS: traZODone 50 MG Tablet 100 MG PO (20:45)
[2020-11-15] MEDS: oxyCODONE 5 MG Tablet PO (22:24)
[2020-11-15 22:41] LABS: Bedside Glucose 184 mg/dL (70-110)
[2020-11-16] VITALS (12 sets, daily range): BP systolic 130–161; BP diastolic 74–87; PULSE 74–80; RESP 16–18; TEMP 36.2–37.1; O2SAT 92–97
[2020-11-16 01:10] LABS: Rapid Plasmin Reagin (RPR) NONREACTIVE (NONREACTIVE)
[2020-11-16] MEDS: Sodium Bicarbonate 650 MG Tablet PO ×3 (05:05→20:24)
[2020-11-16] MEDS: Levothyroxine 25 MCG TABLET PO (05:05)
[2020-11-16] MEDS: oxyCODONE 5 MG Tablet PO (05:05)
[2020-11-16] MEDS: Insulin Lispro 100 UNIT/ML INSULN.PEN SC ×3 (06:34→20:24)
[2020-11-16 06:35] LABS: Albumin, Serum 2.3 g/dL (3.2-5.0); BUN 61 mg/dL (7-18); BUN/Creat Ratio 8.5 RATIO (10-20); Chloride 109 mmol/L (98-107); Creatinine, Serum 7.18 mg/dL (0.55-1.02); EST Glomerular Filtration Rate 6 mL/min (>60); Est Glom Filt Rate - Afr Amer 8 mL/min (>60); Estimated Creatinine Clearance 8.62 ml/min; Glucose 168 mg/dL (74-106); Phosphorus 7.4 mg/dL (2.5-4.9); Potassium 4.7 mmol/L (3.5-5.1); Sodium Level 136 mmol/L (136-145)
[2020-11-16 07:00] LABS: Bedside Glucose 177 mg/dL (70-110)
--- NOTE | 2020-11-16 11:15 | CASEMGMT ---
Addendum entered by Chica Wharton 11/16/20 15:35: [facility]. Anjali WOODS CM Addendum entered by Chica Wharton 11/16/20 11:49: Stefanie Head, Hospital/patient liasion, updated on referral at this time. Anjali WOODS CM Original Note: This RN CM to room and pt provided with verbal list of in-network OP dialysis centers and [facility]. Referral placed thru [facility] at this time and faxed to [facility] admissions/[facility] at this time. Hep B is still pending from 11/14 and Moe, PCU charge, is checking on this at this time. Call to [facility] to notify of referral at this time. Pt states she would be able to get a ride through her insurance at this time for her 1st visit. CM to follow. Anjali WOODS CM
--- NOTE | 2020-11-16 11:21 | DIALYSIS ---
HD x 2 hours complete. Tolerated first tx well. No fluid removed. Used right chest wall dialysis catheter. Catheter closed with heparin per fill volume. Caps placed. Dressing is dry and intact. Report was given to CHUCK Nice.
[2020-11-16] MEDS: 0.9% Saline Lock 10 ML Syringe IV (11:25)
[2020-11-16] MEDS: Heparin 10,000 UNITS/10 ML Vial IV (11:29)
[2020-11-16 11:36] LABS: Bedside Glucose 123 mg/dL (70-110)
--- NOTE | 2020-11-16 11:55 | NURSING ---
Scheduled AM medications late d/t HD and NPO for kidney ultrasound.
[2020-11-16] MEDS: SEVELAMER CARBONATE 800 MG TABLET PO ×2 (11:59→16:55)
[2020-11-16] MEDS: Iron Polysaccharide Complex 150 MG CAPSULE PO (12:00)
[2020-11-16] MEDS: Bisacodyl 5 MG Tablet PO (12:00)
[2020-11-16] MEDS: Multivitamins,Ther W-Minerals Tablet 1 TABLET PO (12:00)
[2020-11-16] MEDS: Acetaminophen 325 MG Tablet 650 MG PO ×2 (12:00→20:23)
[2020-11-16] MEDS: Pantoprazole Sodium 20 MG Tablet PO ×2 (12:00→20:24)
[2020-11-16] MEDS: Juven (unflavored) Packet 1 PACKET PO (12:03)
--- NOTE | 2020-11-16 12:22 | PN.RENAL_ITS ---
Patient Problems: Active and Suspected Problems Diabetic foot ulcer (Acute) Foot ulcer, left (Acute) Cellulitis of left foot (Acute) Osteomyelitis (Acute) SEUN (acute kidney injury) (Acute) Vascular catheter fitting or adjustment (Acute) Subjective: no sob/cp no c/o today - Physical Exam Vitals/I&O's: Vital Signs Temp Pulse Resp BP Pulse Ox 97.5 F L 79 18 161/87 H 95 11/16/20 11:20 11/16/20 11:20 11/16/20 11:20 11/16/20 11:20 11/16/20 10:50 Oxygen Flow Rate (L/min) [4] 2 Oxygen Flow Rate (L/min) [3] 2 Oxygen Flow Rate (L/min) [2] 2 Oxygen Flow Rate (L/min) [1 ( 2 Initial Baseline)] Oxygen Flow Rate (L/min) 2 Oxygen Delivery Method [4] Nasal Cannula Oxygen Delivery Method [3] Nasal Cannula Oxygen Delivery Method [2] Nasal Cannula Oxygen Delivery Method [1 ( Room Air Initial Baseline)] Oxygen Delivery Method Room Air Weight: 108.862 kg Body Mass Index (BMI) 39.9 Finger Stick Blood Glucose 159 Intake and Output for Last 24 Hours 11/14/20 11/15/20 11/16/20 23:59 23:59 23:59 Intake Total 3274.58 / 3274.58 1256.5 / 1376.5 291.25 / 291.25 Output Total 400 / 400 600 / 600 500 / 500 Balance 2874.58 / 2874.58 656.5 / 776.5 -208.75 / -208.75 General: Alert, Cooperative HEENT: Atraumatic, PERRLA, Normocephalic Neck: Supple, Trachea Midline Lungs: Clear to auscultation, Normal air movement Cardiovascular: Regular rate, Regular Rhythm, Normal S1, Normal S2 Abdomen: Bowel Sounds Present, Soft, Non Tender Extremities: No edema Skin: No rashes Microbiology Past 72 Hours 11/14/20 04:40 Urine, Clean Catch Urine Culture - Final Culture exhibits no growth. 11/11/20 19:55 Blood Culture (Wb) - Left Forearm Blood Culture - Preliminary No growth in 48 hours. 11/11/20 20:10 Blood Culture (Wb) - Anticubital Right Blood Culture - Preliminary No growth in 48 hours. 11/12/20 07:30 Wound - Toe Gram Stain - Final 11/12/20 07:30 Wound - Toe Wound Culture - Final Staphylococcus epidermidis 11/12/20 07:30 Wound - Toe Anaerobic Culture - Final No anaerobic bacteria isolated. Laboratory Results 11/14/20 15:52: RPR NONREACTIVE 11/15/20 14:53: POC Glucose 195 H 11/15/20 16:40: POC Glucose 159 H 11/15/20 20:43: POC Glucose 184 H 11/16/20 05:35: Sodium 136, Potassium 4.7, Chloride 109 H, Carbon Dioxide 17.0 L , BUN 61 H, Creatinine 7.18 H, Estim Creat Clear Calc 8.62, Est GFR (MDRD) Af Amer 8 L, Est GFR (MDRD) Non-Af 6 L, BUN/Creatinine Ratio 8.5 L, Glucose 168 H, Calcium 8.0 L, Phosphorus 7.4 H, Albumin 2.3 L 11/16/20 06:32: POC Glucose 177 H 11/16/20 10:55: POC Glucose 123 H Current Medications Acetaminophen (Acetaminophen 325 Mg Tablet) 650 mg PO Q6H PRN PRN PRN Reason: Pain Score 1-10/Temp > 100.7 F Last Admin: 11/16/20 12:00 Dose: 650 mg Documented by: Albuterol Sulfate (Albuterol 2.5 Mg/3 Ml Vial.Neb.) 2.5 mg INHALATION Q4H PRN PRN PRN Reason: SOB &/OR WHEEZING Last Admin: 11/14/20 08:43 Dose: 2.5 mg Documented by: Bisacodyl (Bisacodyl 5 Mg Tablet) 5 mg PO DAILY [facility] Last Admin: 11/16/20 12:00 Dose: 5 mg Documented by: Ergocalciferol (Ergocalciferol 50,000 Unit Capsule) 50,000 unit PO Q7D [facility] Last Admin: 11/15/20 10:43 Dose: 50,000 unit Documented by: Sodium Chloride () 250 mls @ 15 mls/hr IV .[id number] PRN PRN Reason: Saline Flush Last Infusion: 11/16/20 12:00 Dose: 0 mls/hr Documented by: Sodium Chloride () 250 mls @ 15 mls/hr IV .[id number] PRN PRN Reason: Additional IVPB Infusion Ceftriaxone Sodium 2 gm/ (Sodium Chloride) 50 mls @ 100 mls/hr IV Q24 [facility] Last Infusion: 11/16/20 11:55 Dose: Infused Documented by: Insulin Glargine (Insulin Glargine 100 Units/Ml Pen) 100 units SC DAILY [facility] Last Admin: 11/15/20 17:10 Dose: Not Given Documented by: Insulin Human Lispro (Insulin Lispro 100 Unit/Ml Insuln.Pen) 0 unit SC [facility]; Protocol Last Admin: 11/16/20 11:15 Dose: Not Given Documented by: L-Arginine/L-Glutamine/Calcium [facility]MB ([facility]) [facility]) [facility] Last Admin: 11/16/20 12:03 Dose: 1 packet Documented by: Levothyroxine Sodium (Levothyroxine 25 Mcg Tablet) 25 mcg PO DAILY@0600 [facility] Last Admin: 11/16/20 05:05 Dose: 25 mcg Documented by: Loratadine (Loratadine 10 Mg Tablet) 10 mg PO DAILY PRN PRN PRN Reason: ALLERGIES Multivitamins/Minerals (Multivitamins,Ther W-Minerals Tablet) 1 tablet PO DAILY@0800 [facility] Last Admin: 11/16/20 12:00 Dose: 1 tablet Documented by: Nicotine (Nicotine 21 Mg Patch) 21 mg TD DAILY [facility] Last Admin: 11/16/20 11:28 Dose: 21 mg Documented by: Ondansetron HCl (Ondansetron 4 Mg/2 Ml Vial) 4 mg IV Q8H PRN PRN PRN Reason: NAUSEA/VOMITING Last Admin: 11/12/20 19:09 Dose: 4 mg Documented by: Oxycodone HCl (Oxycodone 5 Mg Tablet) 5 mg PO Q6H PRN PRN PRN Reason: Pain Score 4-10 Last Admin: 11/16/20 05:05 Dose: 5 mg Documented by: Pantoprazole Sodium (Pantoprazole Sodium 20 Mg Tablet) 20 mg PO BID [facility] Last Admin: 11/16/20 12:00 Dose: 20 mg Documented by: Polysaccharide Iron Complex (Iron Polysaccharide Complex 150 Mg Capsule) [facility] Last Admin: 11/16/20 12:00 Dose: 150 mg Documented by: Sevelamer Carbonate (Sevelamer Carbonate 800 Mg Tablet) [facility] [place] Last Admin: 11/16/20 11:59 Dose: 800 mg Documented by: Sodium Bicarbonate (Sodium Bicarbonate 650 Mg Tablet) 650 mg PO TID [facility] Last Admin: 11/16/20 05:05 Dose: 650 mg Documented by: Sodium Chloride (0.9% Saline Lock 10 Ml Syringe) 10 - 40 ml IV UD PRN PRN Reason: SALINE FLUSH Last Admin: 11/16/20 11:25 Dose: 10 ml Documented by: Trazodone HCl (Trazodone 50 Mg Tablet) 100 mg PO QHS [facility] Last Admin: 11/15/20 20:45 Dose: 100 mg Documented by: Medical Necessity - Tobacco Use Smoking Status: Current every day smoker Assessment/Plan All Active Problems Osteomyelitis of toe of right foot (Resolved) Skin ulcer of left great toe with fat layer exposed (Acute) Diabetic foot ulcer (Acute) Foot ulcer, left (Acute) Cellulitis of left foot (Acute) Osteomyelitis (Acute) SEUN (acute kidney injury) (Acute) Vascular catheter fitting or adjustment (Acute) SEUN ATI with vanco nephrotoxicity also AIN in differential diagnosis Metabolic acidosis Hyperphosphatemia Patient is nonoliguric continue to measure strict I's and O's hold losartan avoid nephrotoxins tolerated well first HD session for now on binders Follow-up on the renal biopsy result hopefully we can get light microscopy report by tomorrow my office will try to contact the pathologist. STEFFI working on HD unit placement d/w patient and CM.
[2020-11-16 13:25] LABS: Bedside Glucose 161 mg/dL (70-110)
[2020-11-16 13:31] LABS: Absolute Lymphocyte Count 1.17 X10^3/uL (0.83-4.51); Absolute Neutrophil Count 6.8 X10^3/uL (2.0-7.7); Basophil# 0.04 X10^3/uL; Basophil% 0.4 % (0-1); Eosinophil# 0.21 X10^3/uL; Eosinophils% 2.3 % (0-5); Hematocrit 36.2 % (37-47); Hemoglobin 11.8 g/dL (12.0-15.0); Lymphocyte # 1.17 X10^3/ul (4.0); Lymphocyte % 12.9 % (19-41); Mean Corp Hgb Conc 32.6 g/dL (32-36); Mean Corpuscular Volume 88.9 fL (81-99); Mean Platelet Vol. 9.7 fl (6.2-12.0); Monocyte# 0.78 X10^3/uL; Monocyte% 8.6 % (0-10); NRBC Flagged by Analyzer 0 % (0-5); Neutrophil # 6.83 X10^3/uL (2.7-7.7); Neutrophil % 75.2 % (47-70); Platelet Count 217 K/mm3 (150-450); RBC Distribution Width CV 13.8 % (11.6-14.6); RBC Distribution Width SD 44.7 fl (35.1-43.9); Red Blood Count 4.07 M/mm3 (4.2-5.4); White Blood Count 9.1 K/mm3 (4.4-11.0)
[2020-11-16] MEDS: predniSONE 20 MG Tablet 60 MG PO (15:45)
[2020-11-16 17:15] LABS: Bedside Glucose 166 mg/dL (70-110)
--- NOTE | 2020-11-16 18:31 | PCM.PN.HOSP ---
Patient Problems: Active and Suspected Problems Diabetic foot ulcer (Acute) Foot ulcer, left (Acute) Cellulitis of left foot (Acute) Osteomyelitis (Acute) SEUN (acute kidney injury) (Acute) Vascular catheter fitting or adjustment (Acute) Reason for Visit: Follow-up on acute SEUN/cellulitis of the left foot/ulcer Subjective: Adonis was seen and examined. She is having her first dialysis today. Discussed with nephrology later on, her kidney biopsy was suggestive of ATN and AIN; discussed with ID, agree with prednisone 60 mg daily for 2 weeks. Nephrology will be following Objective: Physical exam: General: Alert, Oriented x3, Cooperative, No apparent distress, Well developed HEENT: Atraumatic, PERRLA, EOMI, Normocephalic Oral: Moist Mucosa Neck: Supple, No JVD, Trachea Midline, Thyroid Normal Size and Texture Lungs: Clear to auscultation, Normal air movement, No rhonchi, No wheeze, No rales Cardiovascular: Regular rate, Regular Rhythm, Normal S1, Normal S2, No murmurs, PMI Normal, No rub noted, No Gallop Abdomen: Bowel Sounds Present, Soft, Non Tender, Non-Distended Extremities: No clubbing, No cyanosis, No edema, Capillary Refill Less than 3 Seconds Skin: No rashes, No breakdown Musculoskeletal: No Tenderness to Palpation of Joints or Extremities Neurological: Cranial nerves II-XII grossly intact, Neuro grossly intact Psych/Mental Status: Normal Affect, Appropriate, Alert and oriented to time, place, person, mood and affect Vitals/I&O's: Vital Signs Temp Pulse Resp BP Pulse Ox 98.8 F 80 16 153/80 H 97 11/16/20 16:50 11/16/20 16:50 11/16/20 16:50 11/16/20 16:50 11/16/20 16:50 Oxygen Flow Rate (L/min) [4] 2 Oxygen Flow Rate (L/min) [3] 2 Oxygen Flow Rate (L/min) [2] 2 Oxygen Flow Rate (L/min) [1 ( 2 Initial Baseline)] Oxygen Flow Rate (L/min) 2 Oxygen Delivery Method [4] Nasal Cannula Oxygen Delivery Method [3] Nasal Cannula Oxygen Delivery Method [2] Nasal Cannula Oxygen Delivery Method [1 ( Room Air Initial Baseline)] Oxygen Delivery Method Room Air Weight: 108.862 kg Body Mass Index (BMI) 39.9 Finger Stick Blood Glucose 159 Intake and Output for Last 24 Hours 11/14/20 11/15/20 11/16/20 23:59 23:59 23:59 Intake Total 3274.58 / 3274.58 1256.5 / 1376.5 651.25 / 651.25 Output Total 400 / 400 600 / 600 700 / 700 Balance 2874.58 / 2874.58 656.5 / 776.5 -48.75 / -48.75 Microbiology Past 72 Hours 11/14/20 04:40 Urine, Clean Catch Urine Culture - Final Culture exhibits no growth. 11/11/20 19:55 Blood Culture (Wb) - Left Forearm Blood Culture - Preliminary No growth in 48 hours. 11/11/20 20:10 Blood Culture (Wb) - Anticubital Right Blood Culture - Preliminary No growth in 48 hours. 11/12/20 07:30 Wound - Toe Gram Stain - Final 11/12/20 07:30 Wound - Toe Wound Culture - Final Staphylococcus epidermidis 11/12/20 07:30 Wound - Toe Anaerobic Culture - Final No anaerobic bacteria isolated. Laboratory Results 11/14/20 15:52: RPR NONREACTIVE 11/15/20 20:43: POC Glucose 184 H 11/16/20 05:35: Sodium 136, Potassium 4.7, Chloride 109 H, Carbon Dioxide 17.0 L, BUN 61 H, Creatinine 7.18 H, Estim Creat Clear Calc 8.62, Est GFR (MDRD) Af Amer 8 L, Est GFR (MDRD) Non-Af 6 L, BUN/Creatinine Ratio 8.5 L, Glucose 168 H, Calcium 8.0 L, Phosphorus 7.4 H, Albumin 2.3 L 11/16/20 06:32: POC Glucose 177 H 11/16/20 10:55: POC Glucose 123 H 11/16/20 13:08: POC Glucose 161 H 11/16/20 13:20: WBC 9.1, RBC 4.07 L, Hgb 11.8 L, Hct 36.2 L, MCV 88.9 D, MCH 29.0, MCHC 32.6 D, RDW Std Deviation 44.7 H, RDW Coeff of Brea 13.8, Plt Count 217, MPV 9.7, Immature Gran % (Auto) 0.600, Neut % (Auto) 75.2 H, Lymph % (Auto) 12.9 L, [place] % (Auto) 8.6, Eos % (Auto) 2.3, Baso % (Auto) 0.4, Absolute Neuts (auto) 6.8, Absolute Lymphs (auto) 1.17, Nucleated RBC % 0 11/16/20 16:52: POC Glucose 166 H Current Medications Acetaminophen (Acetaminophen 325 Mg Tablet) 650 mg PO Q6H PRN PRN PRN Reason: Pain Score 1-10/Temp > 100.7 F Last Admin: 11/16/20 12:00 Dose: 650 mg Documented by: Albuterol Sulfate (Albuterol 2.5 Mg/3 Ml Vial.Neb.) 2.5 mg INHALATION Q4H PRN PRN PRN Reason: SOB &/OR WHEEZING Last Admin: 11/14/20 08:43 Dose: 2.5 mg Documented by: Bisacodyl (Bisacodyl 5 Mg Tablet) 5 mg PO DAILY [facility] Last Admin: 11/16/20 12:00 Dose: 5 mg Documented by: Ergocalciferol (Ergocalciferol 50,000 Unit Capsule) 50,000 unit PO Q7D [facility] Last Admin: 11/15/20 10:43 Dose: 50,000 unit Documented by: Sodium Chloride () 250 mls @ 15 mls/hr IV .[id number] PRN PRN Reason: Saline Flush Last Infusion: 11/16/20 12:00 Dose: 0 mls/hr Documented by: Sodium Chloride () 250 mls @ 15 mls/hr IV .[id number] PRN PRN Reason: Additional IVPB Infusion Ceftriaxone Sodium 2 gm/ (Sodium Chloride) 50 mls @ 100 mls/hr IV Q24 [facility] Last Infusion: 11/16/20 11:55 Dose: Infused Documented by: Insulin Glargine (Insulin Glargine 100 Units/Ml Pen) 100 units SC DAILY [facility] Last Admin: 11/16/20 13:09 Dose: 100 u Documented by: Insulin Human Lispro (Insulin Lispro 100 Unit/Ml Insuln.Pen) 0 unit SC ACHS [facility]; Protocol Last Admin: 11/16/20 16:55 Dose: 2 u Documented by: L-Arginine/L-Glutamine/Calcium HMB (Rip (Unflavored) Packet) 1 packet PO BIDCM [facility] Last Admin: 11/16/20 16:54 Dose: Not Given Documented by: Levothyroxine Sodium (Levothyroxine 25 Mcg Tablet) 25 mcg PO DAILY@0600 [facility] Last Admin: 11/16/20 05:05 Dose: 25 mcg Documented by: Loratadine (Loratadine 10 Mg Tablet) 10 mg PO DAILY PRN PRN PRN Reason: ALLERGIES Multivitamins/Minerals (Multivitamins,Ther W-Minerals Tablet) 1 tablet PO DAILY@0800 [facility] Last Admin: 11/16/20 12:00 Dose: 1 tablet Documented by: Nicotine (Nicotine 21 Mg Patch) 21 mg TD DAILY [facility] Last Admin: 11/16/20 11:28 Dose: 21 mg Documented by: Ondansetron HCl (Ondansetron 4 Mg/2 Ml Vial) 4 mg IV Q8H PRN PRN PRN Reason: NAUSEA/VOMITING Last Admin: 11/12/20 19:09 Dose: 4 mg Documented by: Oxycodone HCl (Oxycodone 5 Mg Tablet) 5 mg PO Q6H PRN PRN PRN Reason: Pain Score 4-10 Last Admin: 11/16/20 05:05 Dose: 5 mg Documented by: Pantoprazole Sodium (Pantoprazole Sodium 20 Mg Tablet) 20 mg PO BID [facility] Last Admin: 11/16/20 12:00 Dose: 20 mg Documented by: Polysaccharide Iron Complex (Iron Polysaccharide Complex 150 Mg Capsule) 150 mg PO DAILYCM [facility] Last Admin: 11/16/20 12:00 Dose: 150 mg Documented by: Prednisone (Prednisone 20 Mg Tablet) 60 mg PO DAILY@0800 [facility] Sevelamer Carbonate (Sevelamer Carbonate 800 Mg Tablet) 800 mg PO TIDCM [facility] Last Admin: 11/16/20 16:55 Dose: 800 mg Documented by: Sodium Bicarbonate (Sodium Bicarbonate 650 Mg Tablet) 650 mg PO TID [facility] Last Admin: 11/16/20 14:21 Dose: 650 mg Documented by: Sodium Chloride (0.9% Saline Lock 10 Ml Syringe) 10 - 40 ml IV UD PRN PRN Reason: SALINE FLUSH Last Admin: 11/16/20 11:25 Dose: 10 ml Documented by: Trazodone HCl (Trazodone 50 Mg Tablet) 100 mg PO QHS [facility] Last Admin: 11/15/20 20:45 Dose: 100 mg Documented by: STROKE Vital Signs/Narrative: Vital Signs Temp Pulse Resp BP Pulse Ox 11/16/20 16:50 98.8 F 80 16 153/80 H 97 11/16/20 15:00 74 Medical Necessity - Tobacco Use Smoking Status: Current every day smoker Assessment/Plan All Active Problems Osteomyelitis of toe of right foot (Resolved) Skin ulcer of left great toe with fat layer exposed (Acute) Diabetic foot ulcer (Acute) Foot ulcer, left (Acute) Cellulitis of left foot (Acute) Osteomyelitis (Acute) SEUN (acute kidney injury) (Acute) Vascular catheter fitting or adjustment (Acute) 1. Acute kidney injury, likely ATN vs AIN vs vancomycin side-effect Creatinine is worse at 6.42. Baseline Cr <1, creatinine is 7.18 Started on dialysis today (day1) Kidney USG unremarkable Status post kidney biopsy and tunneled dialysis catheter; biopsy results suggestive of ATN and AIN Started on prednisone 60 mg daily for 2 weeks Will repeat labs in am 2. Acute cellulitis/osteomyelitis of the left great toe, wound cultures growing staph epidermidis On IV ceftriaxone, podiatry and ID following 3. Type 2 DM complicated by diabetic neuropathy, BS fairly controlled Continue on Lantus and ISS Resumed on Lyrica and pregabalin 4. Hypothyroidism, continue on synthroid 5. Hypertension, controlled, continue to monitor Home losartan on hold 6. DVT PPx- SCDs - Lovenox on hold for biopsy Inpatient E&M: 33800 [facility] Hosp L3
[2020-11-16 20:10] LABS: Cytoplasmic Ab (C-ANCA) <1:20 titer (Neg:<1:20)
[2020-11-16] MEDS: traZODone 50 MG Tablet 100 MG PO (20:24)
[2020-11-16 21:56] LABS: Bedside Glucose 224 mg/dL (70-110)
[2020-11-16] MEDS: DULoxetine Hcl 60 MG Capsule PO (22:00)
[2020-11-16] MEDS: Pregabalin 50 MG Capsule 100 MG PO (22:00)
--- NOTE | 2020-11-16 23:32 | NURSING ---
Patient PM meds given early d/t patient request.
[2020-11-17] VITALS (8 sets, daily range): BP systolic 125–166; BP diastolic 67–91; PULSE 64–83; RESP 14–16; TEMP 36.6–37; O2SAT 94–97
[2020-11-17] MEDS: Acetaminophen 325 MG Tablet 650 MG PO (04:12)
[2020-11-17] MEDS: Sodium Bicarbonate 650 MG Tablet PO (06:36)
[2020-11-17] MEDS: Levothyroxine 25 MCG TABLET PO (06:36)
[2020-11-17] MEDS: Insulin Lispro 100 UNIT/ML INSULN.PEN SC ×3 (06:36→16:39)
[2020-11-17 06:50] LABS: Bedside Glucose 350 mg/dL (70-110)
[2020-11-17 06:55] LABS: Absolute Lymphocyte Count 0.82 X10^3/uL (0.83-4.51); Absolute Neutrophil Count 9.2 X10^3/uL (2.0-7.7); Basophil# 0.02 X10^3/uL; Basophil% 0.2 % (0-1); Hemoglobin 12.3 g/dL (12.0-15.0); Lymphocyte # 0.82 X10^3/ul (4.0); Lymphocyte % 7.9 % (19-41); Mean Corp Hgb Conc 32.4 g/dL (32-36); Mean Corpuscular Volume 89.6 fL (81-99); Mean Platelet Vol. 9.5 fl (6.2-12.0); Monocyte# 0.31 X10^3/uL; NRBC Flagged by Analyzer 0 % (0-5); Neutrophil # 9.16 X10^3/uL (2.7-7.7); Neutrophil % 88.2 % (47-70); Platelet Count 256 K/mm3 (150-450); RBC Distribution Width CV 13.6 % (11.6-14.6); RBC Distribution Width SD 44.5 fl (35.1-43.9); Red Blood Count 4.24 M/mm3 (4.2-5.4); White Blood Count 10.4 K/mm3 (4.4-11.0)
[2020-11-17 07:27] LABS: Albumin, Serum 2.2 g/dL (3.2-5.0); BUN 64 mg/dL (7-18); Calcium,Total 7.9 mg/dL (8.5-10.1); Chloride 106 mmol/L (98-107); Creatinine, Serum 6.38 mg/dL (0.55-1.02); EST Glomerular Filtration Rate 7 mL/min (>60); Est Glom Filt Rate - Afr Amer 9 mL/min (>60); Glucose 353 mg/dL (74-106); Phosphorus 5.5 mg/dL (2.5-4.9); Potassium 4.4 mmol/L (3.5-5.1); Sodium Level 135 mmol/L (136-145)
[2020-11-17] MEDS: SEVELAMER CARBONATE 800 MG TABLET PO ×2 (08:01→12:58)
[2020-11-17 09:36] LABS: Complement C3 142 mg/dL (82-167)
--- NOTE | 2020-11-17 10:32 | CASEMGMT ---
Call from Stefanie at [facility] and she states pt is medically and financially cleared at this time. This RN CM has not received schedule letter yet at this time and Stefanie is aware. CM to follow. SStdarrell WOODS CM
[2020-11-17 10:54] LABS: Perinuclear Ab (P-ANCA) <1:20 titer (Neg:<1:20)
[2020-11-17 10:55] LABS: ANTINUCLEAR ANTIBODIES DIRECT Negative (Negative)
[2020-11-17 12:09] LABS: Anti-Glomerular Basement Memb 4 units (0-20)
[2020-11-17 13:05] LABS: Bedside Glucose 305 mg/dL (70-110)
--- NOTE | 2020-11-17 14:10 | CASEMGMT ---
Addendum entered by Chica Wharton 11/17/20 15:41: [facility] aware that pt will be there tomorrow, voice understanding. Pt states that she has a ride for tomorrow and will work on getting rides set up thru her insurance. Pt provided with chair time/contact info on her d/c f/u appts and pt provided a copy at this time. Still on schedule letter from [facility]. Pt voices no further questions/concerns/needs at this time. Anjali WOODS CM Original Note: Per Guerrero at [facility], pt's chair time is TTS at 0610 and pt will need to arrive at 0550. Pt updated at this time. Page to Dr. Preciado to see if pt needs to have 1st OP dialysis on 11/18/20 or 11/21/20 at this time. Guerrero at [facility] to be updated if pt is coming tomorrow. Anjali WOODS CM
--- NOTE | 2020-11-17 14:26 | PCM.PN.ID ---
Patient Problems: Active and Suspected Problems Diabetic foot ulcer (Acute) Foot ulcer, left (Acute) Cellulitis of left foot (Acute) Osteomyelitis (Acute) SEUN (acute kidney injury) (Acute) Vascular catheter fitting or adjustment (Acute) Subjective: Feeling ok, HD today, no fever - Physical Exam Vitals/I&O's: Vital Signs Temp Pulse Resp BP Pulse Ox 98.6 F 81 14 125/67 H 96 11/17/20 10:05 11/17/20 10:05 11/17/20 10:05 11/17/20 10:05 11/17/20 10:05 Oxygen Flow Rate (L/min) [4] 2 Oxygen Flow Rate (L/min) [3] 2 Oxygen Flow Rate (L/min) [2] 2 Oxygen Flow Rate (L/min) [1 ( 2 Initial Baseline)] Oxygen Flow Rate (L/min) 2 Oxygen Delivery Method [4] Nasal Cannula Oxygen Delivery Method [3] Nasal Cannula Oxygen Delivery Method [2] Nasal Cannula Oxygen Delivery Method [1 ( Room Air Initial Baseline)] Oxygen Delivery Method Room Air Weight: 108.862 kg Body Mass Index (BMI) 39.9 Finger Stick Blood Glucose 159 Intake and Output for Last 24 Hours 11/15/20 11/16/20 11/17/20 23:59 23:59 23:59 Intake Total 1256.5 / 1376.5 651.25 / 771.25 420 / 420 Output Total 600 / 600 700 / 700 0 / 0 Balance 656.5 / 776.5 -48.75 / 71.25 420 / 420 General: Alert, Cooperative, No apparent distress Lungs: Clear to auscultation, Normal air movement Cardiovascular: Regular rate, Regular Rhythm Abdomen: Soft, Non Tender, Non-Distended Skin: No rashes Microbiology Past 72 Hours 11/11/20 19:55 Blood Culture (Wb) - Left Forearm Blood Culture - Final No growth in 5 days. 11/11/20 20:10 Blood Culture (Wb) - Anticubital Right Blood Culture - Final No growth in 5 days. 11/14/20 04:40 Urine, Clean Catch Urine Culture - Final Culture exhibits no growth. Laboratory Results 11/14/20 15:52: c-ANCA Antibody <1:20, Atypical p-ANCA <1:20, p-ANCA Antibody <1:20 11/14/20 15:52: PABLO Screen Negative, DILLON-1 Antibody Not Reportable, SS-A/Ro IgG Antibody Not Reportable, SS-B/La IgG Antibody Not Reportable, Sm (Guerra) Antibody Not Reportable, PASTRY COOK HELPER Antibody Not Reportable, Scl-70 Scleroderma Ab Not Reportable, Double Strand DNA Ab Not Reportable, Centromere B Antibody Not Reportable 11/14/20 15:52: Glomerular Base Memb Ab 4, Complement C3 142, Complement C4 31 11/16/20 16:52: POC Glucose 166 H 11/16/20 20:22: POC Glucose 224 H 11/17/20 06:35: POC Glucose 350 H 11/17/20 06:43: WBC 10.4, RBC 4.24, Hgb 12.3, Hct 38.0, MCV 89.6, MCH 29.0, MCHC 32.4, RDW Std Deviation 44.5 H, RDW Coeff of Brea 13.6, Plt Count 256, MPV 9.5, Immature Gran % (Auto) 0.700, Neut % (Auto) 88.2 H, Lymph % (Auto) 7.9 L, [place] % (Auto) 3.0, Eos % (Auto) 0.0, Baso % (Auto) 0.2, Absolute Neuts (auto) 9.2 H, Absolute Lymphs (auto) 0.82 L, Nucleated RBC % 0 11/17/20 06:43: Sodium 135 L, Potassium 4.4, Chloride 106, Carbon Dioxide 19.0 L, BUN 64 H, Creatinine 6.38 H, Estim Creat Clear Calc 9.70, Est GFR (MDRD) Af Amer 9 L, Est GFR (MDRD) Non-Af 7 L, BUN/Creatinine Ratio 10.0, Glucose 353 H, Calcium 7.9 L, Phosphorus 5.5 H, Albumin 2.2 L 11/17/20 12:51: POC Glucose 305 H Current Medications Acetaminophen (Acetaminophen 325 Mg Tablet) 650 mg PO Q6H PRN PRN PRN Reason: Pain Score 1-10/Temp > 100.7 F Last Admin: 11/17/20 04:12 Dose: 650 mg Documented by: Albuterol Sulfate (Albuterol 2.5 Mg/3 Ml Vial.Neb.) 2.5 mg INHALATION Q4H PRN PRN PRN Reason: SOB &/OR WHEEZING Last Admin: 11/14/20 08:43 Dose: 2.5 mg Documented by: Amlodipine Besylate (Amlodipine 10 Mg Tablet) 10 mg PO DAILY [facility] Bisacodyl (Bisacodyl 5 Mg Tablet) 5 mg PO DAILY [facility] Last Admin: 11/16/20 12:00 Dose: 5 mg Documented by: Duloxetine HCl (Duloxetine Hcl 60 Mg Capsule) 60 mg PO QPM [facility] Ergocalciferol (Ergocalciferol 50,000 Unit Capsule) 50,000 unit PO Q7D [facility] Last Admin: 11/15/20 10:43 Dose: 50,000 unit Documented by: Sodium Chloride () 250 mls @ 15 mls/hr IV .[id number] PRN PRN Reason: Saline Flush Last Infusion: 11/16/20 12:00 Dose: 0 mls/hr Documented by: Sodium Chloride () 250 mls @ 15 mls/hr IV .[id number] PRN PRN Reason: Additional IVPB Infusion Ceftriaxone Sodium 2 gm/ (Sodium Chloride) 50 mls @ 100 mls/hr IV Q24 [facility] Last Infusion: 11/16/20 11:55 Dose: Infused Documented by: Insulin Glargine (Insulin Glargine 100 Units/Ml Pen) 100 units SC DAILY [facility] Last Admin: 11/17/20 12:54 Dose: 100 u Documented by: Insulin Human Lispro (Insulin Lispro 100 Unit/Ml Insuln.Pen) 0 unit SC [facility]; Protocol Last Admin: 11/17/20 12:54 Dose: 6 u Documented by: L-Arginine/L-Glutamine/Calcium HMB (Rip (Unflavored) Packet) 1 packet PO BIDCM [facility] Last Admin: 11/17/20 08:01 Dose: Not Given Documented by: Levothyroxine Sodium (Levothyroxine 25 Mcg Tablet) 25 mcg PO DAILY@0600 [facility] Last Admin: 11/17/20 06:36 Dose: 25 mcg Documented by: Loratadine (Loratadine 10 Mg Tablet) 10 mg PO DAILY PRN PRN PRN Reason: ALLERGIES Multivitamins/Minerals (Multivitamins,Ther W-Minerals Tablet) 1 tablet PO DAILY@0800 [facility] Last Admin: 11/16/20 12:00 Dose: 1 tablet Documented by: Nicotine (Nicotine 21 Mg Patch) 21 mg TD DAILY [facility] Last Admin: 11/17/20 10:03 Dose: 21 mg Documented by: Ondansetron HCl (Ondansetron 4 Mg/2 Ml Vial) 4 mg IV Q8H PRN PRN PRN Reason: NAUSEA/VOMITING Last Admin: 11/12/20 19:09 Dose: 4 mg Documented by: Oxycodone HCl (Oxycodone 5 Mg Tablet) 5 mg PO Q6H PRN PRN PRN Reason: Pain Score 4-10 Last Admin: 11/16/20 05:05 Dose: 5 mg Documented by: Pantoprazole Sodium (Pantoprazole Sodium 20 Mg Tablet) 20 mg PO BID [facility] Last Admin: 11/16/20 20:24 Dose: 20 mg Documented by: Polysaccharide Iron Complex (Iron Polysaccharide Complex 150 Mg Capsule) 150 mg PO DAILYCM [facility] Last Admin: 11/16/20 12:00 Dose: 150 mg Documented by: Prednisone (Prednisone 20 Mg Tablet) 60 mg PO DAILY@0800 [facility] Pregabalin (Pregabalin 50 Mg Capsule) 100 mg PO BID [facility] Last Admin: 11/16/20 22:00 Dose: 100 mg Documented by: Sevelamer Carbonate (Sevelamer Carbonate 800 Mg Tablet) 800 mg PO TIDCM [facility] Last Admin: 11/17/20 12:58 Dose: 800 mg Documented by: Sodium Bicarbonate (Sodium Bicarbonate 650 Mg Tablet) 650 mg PO TID [facility] Last Admin: 11/17/20 06:36 Dose: 650 mg Documented by: Sodium Chloride (0.9% Saline Lock 10 Ml Syringe) 10 - 40 ml IV UD PRN PRN Reason: SALINE FLUSH Last Admin: 11/16/20 11:25 Dose: 10 ml Documented by: Trazodone HCl (Trazodone 50 Mg Tablet) 100 mg PO QHS [facility] Last Admin: 11/16/20 20:24 Dose: 100 mg Documented by: Medical Necessity - Tobacco Use Smoking Status: Current every day smoker Route of nutrition/ use of supplements: [] Nutritional Intake: [] IV Site: [] Carrillo Catheter: [] - Assessment/Plan Antibiotics: [] Assessment/Plan: [] Active and Suspected Problems Diabetic foot ulcer (Acute) Foot ulcer, left (Acute) Cellulitis of left foot (Acute) L 1st toe osteo with DM neuropathy - cx with MSSE. New SEUN after vanc trough of 49. On HD now, getting ceftriaxone, toe looks better. Ok for d/c on po doxy to complete 6 weeks total abx. ID followup prn. Will follow
--- NOTE | 2020-11-17 15:28 | PCM.DC ---
- Discharge Diagnoses Current Active Problems: Current Active and Chronic Problems Diabetic foot ulcer (Acute) Foot ulcer, left (Acute) Cellulitis of left foot (Acute) Osteomyelitis (Acute) SEUN (acute kidney injury) (Acute) Vascular catheter fitting or adjustment (Acute) Meniere disease (Chronic) Type 2 diabetes mellitus with diabetic polyneuropathy (Chronic) Hyperlipidemia (Chronic) Fibromyalgia (Chronic) Depression with anxiety (Chronic) You will use the following diet at home:: Renal (restricted protein/sodium) Your food should be the consistency of: Regular Your liquids should be the consistency of: Regular/Thin Discharge Activity: Return to Normal Activity Call your doctor if you observe: Fever of 101 or Higher, Shortness of breath, Dizziness, Fainting spells, Swelling in the ankles, Chest pain, Increased palpitations (irregular heartbeat) Instructions: Discharge Instructions for Kidney Biopsy, ED Procedural Sedation, (Adult) Allergies/Adverse Reactions: Allergies clindamycin Allergy (Verified 11/11/20 19:37) Hives erythromycin base [From E-Mycin] Allergy (Verified 11/11/20 19:37) Hives Medications to take at Discharge Hydroxyzine Pamoate [Vistaril] 100 mg PO QHS PRN PRN 05/18/19 traZODone [Desyrel] 100 - 200 mg PO QHS 06/12/19 Albuterol Inhaler [Ventolin Hfa] 1 - 2 puff INHALATION Q6H PRN PRN 08/30/19 Atorvastatin Calcium [Lipitor] 80 mg PO QHS 08/30/19 Dulaglutide [Trulicity] 0.75 mg SQ WE 08/30/19 Duloxetine HCl 60 mg PO DAILY@1800 03/21/20 Multivitamin with Minerals [Multiple Vitamin] 1 tab PO DAILY 03/21/20 Pregabalin [Lyrica] 100 mg PO BID 03/21/20 Acetaminophen [Tylenol Tablet] 650 mg PO Q6H PRN PRN tab 03/24/20 Ergocalciferol [Vitamin D] 50,000 unit PO WE 10/17/20 Insulin Degludec [Tresiba Flextouch U-100] 100 unit SQ DAILY 10/17/20 Iron Polysaccharide Complex [Ferrex 150] 150 mg PO DAILY 11/11/20 Levothyroxine [Synthroid] 25 mcg PO DAILY 11/11/20 Pantoprazole Sodium [Protonix] 20 mg PO BID 11/11/20 Amlodipine [Norvasc] 10 mg PO DAILY #30 tab 11/17/20 Doxycycline 100 mg PO BID #72 cap 11/17/20 Sodium Bicarbonate 650 mg PO TID #90 tab 11/17/20 predniSONE tablet 60 mg PO DAILY@0800 #42 tab 11/17/20 The following prescriptions were given: Doxycycline 100 mg PO BID #72 cap Transmission Status: Received by [facility] Amlodipine [Norvasc] 10 mg PO DAILY #30 tab Transmission Status: Pending to [facility] predniSONE tablet 60 mg PO DAILY@0800 #42 tab Transmission Status: Pending to [facility] Sodium Bicarbonate 650 mg PO TID #90 tab Transmission Status: Pending to [facility] Primary Care Physician: Shirley Garcia MD [Primary Care Provider] - Please follow up with your Primary Care Physician in: 3-5 days Test Results: Test results from this visit will be discussed in further detail at your follow-up appointment, if applicable. Please Follow Up With: Friday, , Friday When: 6:10am, arrive by 5:50
[2020-11-17] MEDS: Heparin 10,000 UNITS/10 ML Vial IV (15:53)
--- NOTE | 2020-11-17 16:09 | DIALYSIS ---
HD x 3 hours complete. Tolerated tx well. No fluid removed. Used right chest wall dialysis catheter. Lumens closed with heparin per fill volume. Caps placed. Dressing is dry and intact. Report was given to CHUCK Ibanez.
--- NOTE | 2020-11-17 16:23 | NURSING ---
Medications late d/t dialysis treatment
--- NOTE | 2020-11-17 16:26 | PCM.DC.SUM ---
Discharge Date and Diagnosis - Problem List Patient Problems: Active and Suspected Problems Diabetic foot ulcer (Acute) Foot ulcer, left (Acute) Cellulitis of left foot (Acute) Osteomyelitis (Acute) SEUN (acute kidney injury) (Acute) Vascular catheter fitting or adjustment (Acute) Date of Admission: 11/11/20 Date of Discharge: 11/17/20 - Primary Discharge Diagnosis Acute Problems: Active Problems Diabetic foot ulcer (Acute) Foot ulcer, left (Acute) Cellulitis of left foot (Acute) Osteomyelitis (Acute) SEUN (acute kidney injury) (Acute) Vascular catheter fitting or adjustment (Acute) - Secondary Discharge Diagnosis Chronic Problems: Chronic Problems Meniere disease (Chronic) Chronic ulcer of right foot with fat layer exposed (Chronic) Type 2 diabetes mellitus with diabetic polyneuropathy (Chronic) Hammer toe of right foot (Chronic) Obesity (BMI 30-39.9) (Chronic) Vertigo (Chronic) Hyperlipidemia (Chronic) Fibromyalgia (Chronic) Depression with anxiety (Chronic) Hospital Course and Treatment Imaging Results: Clinical Impression(s) from Imaging Studies Foot X-Ray 11/11/20 20:07 IMPRESSION: Normal x-ray examination of the foot. Electronically Signed: Zeferino Duong MD at 20:40 EST , Service support , Lower Extremity MRI 11/13/20 10:11 IMPRESSION: Mild bone edema of the ungual tuft of the first distal phalanx, either early osteomyelitis or reactive bone edema. Mild arthrosis of the first metatarsophalangeal joint with an osteochondral lesion of the head of the first metatarsal. Mild bone edema of the proximal second and third metatarsals, a stress phenomenon. Bone edema of the medial cuneiform, a stress phenomenon. No demonstrated soft tissue abscess. Electronically Signed: Cesar Bey MD at 11:23 EST Tel , Service support , Renal Ultrasound 11/13/20 16:57 IMPRESSION: No suspicious sonographic findings Electronically Signed: Sony Soria MD at 19:21 EST , Service support , Biopsy CT 11/15/20 09:00 IMPRESSION: Successful CT guided percutaneous kidney biopsy. Electronically Signed: Jaydon Villanueva MD at 9:48 EST , Service support , Chest X-Ray 11/15/20 16:25 IMPRESSION: New central venous catheter in a satisfactory position. No acute cardiopulmonary process. Electronically Signed: Sheridan Buck MD at 16:42 EST Tel , Service support , Renal Artery Duplex: Interpretation Summary Technically difficult examination with poor visualization and fluid/bowel gas identified. Diameter of the abdominal aorta was not obtained Less than 60% stenosis right renal artery Maintained right renal length of 11.23 cm Less than 60% stenosis left renal artery Maintained left renal length of 11.38 cm Abnormal renal resistivity indices bilaterally suspicious for intrinsic renal parenchymal disease. Consults: ID Nephrology Podiatry Operations: - - right 2nd digit amputation 03/22/20 Procedures: None Summary of Care Provided: Per HPI: The patient is a 49 year old F with a PMH as outlined who was admitted via the ED with a worsening wound on her left great toe which worsened on the day of admission. She had been following up at the wound clinic and says it was previously healing well. However, she noticed that the toe was more red, swollen and painful today, so she decided to come in to the ED> she denied any fever or chills, nausea vomiting. Review of symptoms otherwise negative. She was tachycardic and tachypneic with temperature was 96.8 Fahrenheit and blood pressure was 144/88. CBC showed WBC of 11 with hemoglobin of 15.1 and platelets of 251. Chemistry showed sodium of 133. Lactic acid was 1.5. Foot x-ray was essentially normal. ED doctor did discuss with podiatry and podiatry first suggested that patient could be sent home on oral antibiotics. However patient preferred to stay for IV antibiotics. She has been admitted to be managed for sepsis due to left great toe infection. Hospital Course: 1. Acute osteomyelitis of the left great [id number] female presented to the ER with a worsening wound in her left great toe. On presentation she had a leukocytosis of 11 but was afebrile. Cultures obtained demonstrated Staph epidermidis sensitive initially to vancomycin. She was ultimately transitioned to p.o. doxycycline on discharge for 6 weeks with outpatient follow-up. She will need to follow-up with podiatry in the future if this becomes another issue however it was felt that her toe was salvageable since she was improving on antibiotic so podiatry did not feel that amputation was warranted. I discussed with her the plan for discharge today and she expressed understanding of the risk and benefits of going home and would like to go home. 2. ATN/AIN-during her hospitalization her vancomycin trough reached 49 and then she obtained an MRI of her left lower extremity with contrast. Afterward she was found to be in an SEUN. She ultimately obtained a renal biopsy which demonstrated AIN and nephrology was consulted. They recommended initiation of steroids for 2 weeks, and general surgery was consulted to place a tunneled dialysis catheter as dialysis is anticipated to be temporary. Her creatinine peaked at 7.18, and on the day of discharge was down to 6.38. She did receive dialysis today and will receive another short course dialysis tomorrow and then she can resume her normal schedule of Friday, , Friday. 3. Insulin-dependent type 2 diabetes, hypothyroidism, hypertension are all chronic medical conditions which complicate her care her home medications were continued where appropriate. Because of the SEUN her losartan was discontinued and she was placed on Norvasc. Since she is on prednisone for her AIN would recommend that she have close follow-up with her outpatient physician to monitor her blood sugars. She is continued on her Trulicity as well as her Tresiba. Patient Problems: Active and Suspected Problems Diabetic foot ulcer (Acute) Foot ulcer, left (Acute) Cellulitis of left foot (Acute) Osteomyelitis (Acute) SEUN (acute kidney injury) (Acute) Vascular catheter fitting or adjustment (Acute) - Physical Exam Vitals/I&O's: Vital Signs Temp Pulse Resp BP Pulse Ox 98.3 F 83 16 149/86 H 95 11/17/20 16:07 11/17/20 16:07 11/17/20 16:07 11/17/20 16:07 11/17/20 15:00 Oxygen Flow Rate (L/min) [4] 2 Oxygen Flow Rate (L/min) [3] 2 Oxygen Flow Rate (L/min) [2] 2 Oxygen Flow Rate (L/min) [1 ( 2 Initial Baseline)] Oxygen Flow Rate (L/min) 2 Oxygen Delivery Method [4] Nasal Cannula Oxygen Delivery Method [3] Nasal Cannula Oxygen Delivery Method [2] Nasal Cannula Oxygen Delivery Method [1 ( Room Air Initial Baseline)] Oxygen Delivery Method Room Air Weight: 240 lb 1.334 oz Body Mass Index (BMI) 39.9 Finger Stick Blood Glucose 159 Intake and Output for Last 24 Hours 11/15/20 11/16/20 11/17/20 23:59 23:59 23:59 Intake Total 1256.5 / 1376.5 651.25 / 771.25 420 / 420 Output Total 600 / 600 700 / 700 0 / 0 Balance 656.5 / 776.5 -48.75 / 71.25 420 / 420 General: Alert, Oriented x3, Cooperative, No apparent distress HEENT: Atraumatic, PERRLA, EOMI, Normocephalic Oral: Moist Mucosa Neck: Supple, No JVD Lungs: Clear to auscultation, Normal air movement, No rhonchi, No wheeze, No rales Cardiovascular: Regular rate, Regular Rhythm, Normal S1, Normal S2, No murmurs Abdomen: Soft, Non Tender, Non-Distended, No Hepato-splenomegaly, Obese Extremities: No edema, Capillary Refill Less than 3 Seconds Skin: No rashes, No breakdown, - - Very minimal redness on her left great toe she states much improved Neurological: Neuro grossly intact, Sensory exam intact to light touch and pain Psych/Mental Status: Normal Affect, Appropriate Microbiology Past 72 Hours 11/11/20 19:55 Blood Culture (Wb) - Left Forearm Blood Culture - Final No growth in 5 days. 11/11/20 20:10 Blood Culture (Wb) - Anticubital Right Blood Culture - Final No growth in 5 days. 11/14/20 04:40 Urine, Clean Catch Urine Culture - Final Culture exhibits no growth. Laboratory Results 11/14/20 15:52: c-ANCA Antibody <1:20, Atypical p-ANCA <1:20, p-ANCA Antibody <1:20 11/14/20 15:52: PABLO Screen Negative, DILLON-1 Antibody Not Reportable, SS-A/Ro IgG Antibody Not Reportable, SS-B/La IgG Antibody Not Reportable, Sm (Guerra) Antibody Not Reportable, PAYMENT PROCESSOR Antibody Not Reportable, Scl-70 Scleroderma Ab Not Reportable, Double Strand DNA Ab Not Reportable, Centromere B Antibody Not Reportable 11/14/20 15:52: Glomerular Base Memb Ab 4, Complement C3 142, Complement C4 31 11/16/20 16:52: POC Glucose 166 H 11/16/20 20:22: POC Glucose 224 H 11/17/20 06:35: POC Glucose 350 H 11/17/20 06:43: WBC 10.4, RBC 4.24, Hgb 12.3, Hct 38.0, MCV 89.6, MCH 29.0, MCHC 32.4, RDW Std Deviation 44.5 H, RDW Coeff of Brea 13.6, Plt Count 256, MPV 9.5, Immature Gran % (Auto) 0.700, Neut % (Auto) 88.2 H, Lymph % (Auto) 7.9 L, [place] % (Auto) 3.0, Eos % (Auto) 0.0, Baso % (Auto) 0.2, Absolute Neuts (auto) 9.2 H, Absolute Lymphs (auto) 0.82 L, Nucleated RBC % 0 11/17/20 06:43: Sodium 135 L, Potassium 4.4, Chloride 106, Carbon Dioxide 19.0 L, BUN 64 H, Creatinine 6.38 H, Estim Creat Clear Calc 9.70, Est GFR (MDRD) Af Amer 9 L, Est GFR (MDRD) Non-Af 7 L, BUN/Creatinine Ratio 10.0, Glucose 353 H, Calcium 7.9 L, Phosphorus 5.5 H, Albumin 2.2 L 11/17/20 12:51: POC Glucose 305 H Current Medications Acetaminophen (Acetaminophen 325 Mg Tablet) 650 mg PO Q6H PRN PRN PRN Reason: Pain Score 1-10/Temp > 100.7 F Last Admin: 11/17/20 04:12 Dose: 650 mg Documented by: Albuterol Sulfate (Albuterol 2.5 Mg/3 Ml Vial.Neb.) 2.5 mg INHALATION Q4H PRN PRN PRN Reason: SOB &/OR WHEEZING Last Admin: 11/14/20 08:43 Dose: 2.5 mg Documented by: Amlodipine Besylate (Amlodipine 10 Mg Tablet) 10 mg PO DAILY [facility] Bisacodyl (Bisacodyl 5 Mg Tablet) 5 mg PO DAILY [facility] Last Admin: 11/16/20 12:00 Dose: 5 mg Documented by: Duloxetine HCl (Duloxetine Hcl 60 Mg Capsule) 60 mg PO QPM [facility] Ergocalciferol (Ergocalciferol 50,000 Unit Capsule) 50,000 unit PO Q7D [facility] Last Admin: 11/15/20 10:43 Dose: 50,000 unit Documented by: Sodium Chloride () 250 mls @ 15 mls/hr IV .[id number] PRN PRN Reason: Saline Flush Last Infusion: 11/16/20 12:00 Dose: 0 mls/hr Documented by: Sodium Chloride () 250 mls @ 15 mls/hr IV .[id number] PRN PRN Reason: Additional IVPB Infusion Ceftriaxone Sodium 2 gm/ (Sodium Chloride) 50 mls @ 100 mls/hr IV Q24 [facility] Last Infusion: 11/16/20 11:55 Dose: Infused Documented by: Insulin Glargine (Insulin Glargine 100 Units/Ml Pen) 100 units SC DAILY [facility] Last Admin: 11/17/20 12:54 Dose: 100 u Documented by: Insulin Human Lispro (Insulin Lispro 100 Unit/Ml Insuln.Pen) 0 unit SC [facility]; Protocol Last Admin: 11/17/20 12:54 Dose: 6 u Documented by: Levothyroxine Sodium (Levothyroxine 25 Mcg Tablet) 25 mcg PO DAILY@0600 [facility] Last Admin: 11/17/20 06:36 Dose: 25 mcg Documented by: Loratadine (Loratadine 10 Mg Tablet) 10 mg PO DAILY PRN PRN PRN Reason: ALLERGIES Multivitamins/Minerals (Multivitamins,Ther W-Minerals Tablet) 1 tablet PO DAILY@0800 [facility] Last Admin: 11/16/20 12:00 Dose: 1 tablet Documented by: Nicotine (Nicotine 21 Mg Patch) 21 mg TD DAILY [facility] Last Admin: 11/17/20 10:03 Dose: 21 mg Documented by: Ondansetron HCl (Ondansetron 4 Mg/2 Ml Vial) 4 mg IV Q8H PRN PRN PRN Reason: NAUSEA/VOMITING Last Admin: 11/12/20 19:09 Dose: 4 mg Documented by: Oxycodone HCl (Oxycodone 5 Mg Tablet) 5 mg PO Q6H PRN PRN PRN Reason: Pain Score 4-10 Last Admin: 11/16/20 05:05 Dose: 5 mg Documented by: Pantoprazole Sodium (Pantoprazole Sodium 20 Mg Tablet) 20 mg PO BID [facility] Last Admin: 11/16/20 20:24 Dose: 20 mg Documented by: Polysaccharide Iron Complex (Iron Polysaccharide Complex 150 Mg Capsule) 150 mg PO DAILYCM [facility] Last Admin: 11/16/20 12:00 Dose: 150 mg Documented by: Prednisone (Prednisone 20 Mg Tablet) 60 mg PO DAILY@0800 [facility] Pregabalin (Pregabalin 50 Mg Capsule) 100 mg PO BID [facility] Last Admin: 11/17/20 16:23 Dose: Not Given Documented by: Sevelamer Carbonate (Sevelamer Carbonate 800 Mg Tablet) 800 mg PO TIDCM [facility] Last Admin: 11/17/20 12:58 Dose: 800 mg Documented by: Sodium Bicarbonate (Sodium Bicarbonate 650 Mg Tablet) 650 mg PO TID [facility] Last Admin: 11/17/20 16:23 Dose: Not Given Documented by: Sodium Chloride (0.9% Saline Lock 10 Ml Syringe) 10 - 40 ml IV UD PRN PRN Reason: SALINE FLUSH Last Admin: 11/16/20 11:25 Dose: 10 ml Documented by: Trazodone HCl (Trazodone 50 Mg Tablet) 100 mg PO QHS [facility] Last Admin: 11/16/20 20:24 Dose: 100 mg Documented by: Discharge Activity: Return to Normal Activity Call your doctor if you observe: Fever of 101 or Higher, Shortness of breath, Dizziness, Fainting spells, Swelling in the ankles, Chest pain, Increased palpitations (irregular heartbeat) Home Medications: Medications to take at Discharge Hydroxyzine Pamoate [Vistaril] 100 mg PO QHS PRN PRN 05/18/19 traZODone [Desyrel] 100 - 200 mg PO QHS 06/12/19 Albuterol Inhaler [Ventolin Hfa] 1 - 2 puff INHALATION Q6H PRN PRN 08/30/19 Atorvastatin Calcium [Lipitor] 80 mg PO QHS 08/30/19 Dulaglutide [Trulicity] 0.75 mg SQ WE 08/30/19 Duloxetine HCl 60 mg PO DAILY@1800 03/21/20 Multivitamin with Minerals [Multiple Vitamin] 1 tab PO DAILY 03/21/20 Pregabalin [Lyrica] 100 mg PO BID 03/21/20 Acetaminophen [Tylenol Tablet] 650 mg PO Q6H PRN PRN tab 03/24/20 Ergocalciferol [Vitamin D] 50,000 unit PO WE 10/17/20 Insulin Degludec [Tresiba Flextouch U-100] 100 unit SQ DAILY 10/17/20 Iron Polysaccharide Complex [Ferrex 150] 150 mg PO DAILY 11/11/20 Levothyroxine [Synthroid] 25 mcg PO DAILY 11/11/20 Pantoprazole Sodium [Protonix] 20 mg PO BID 11/11/20 Amlodipine [Norvasc] 10 mg PO DAILY #30 tab 11/17/20 Doxycycline 100 mg PO BID #72 cap 11/17/20 Sodium Bicarbonate 650 mg PO TID #90 tab 11/17/20 predniSONE tablet 60 mg PO DAILY@0800 #42 tab 11/17/20 Following Prescriptions Were Given to Patient: Doxycycline 100 mg PO BID #72 cap Transmission Status: Received by [facility] Amlodipine [Norvasc] 10 mg PO DAILY #30 tab Transmission Status: Received by [facility] predniSONE tablet 60 mg PO DAILY@0800 #42 tab Transmission Status: Received by [facility] Sodium Bicarbonate 650 mg PO TID #90 tab Transmission Status: Received by [facility] Primary Care Physician: Shirley Garcia MD [Primary Care Provider] - Please follow up with your Primary Care Physician in: 3-5 days Please Follow Up With: Friday, , Friday When: 6:10am, arrive by 5:50 Please Follow Up With: Shirley Garcia MD Patient Instructions: Discharge Instructions for Kidney Biopsy, ED Procedural Sedation, (Adult) Disposition: Home Minutes spent on discharge:: 35 Patient Condition:: Stable Medical Necessity - Tobacco Use Smoking Status: Current every day smoker Meaningful Use Info Meaningful Use Diagnoses (Choose all that apply): None applicable Inpatient E&M: [id number] [facility]
[2020-11-17] MEDS: Multivitamins,Ther W-Minerals Tablet 1 TABLET PO (16:35)
[2020-11-17] MEDS: Iron Polysaccharide Complex 150 MG CAPSULE PO (16:35)
[2020-11-17] MEDS: predniSONE 20 MG Tablet 60 MG PO (16:35)
[2020-11-17] MEDS: amLODIPine 10 MG Tablet PO (16:39)
--- NOTE | 2020-11-17 16:45 | PN.RENAL_ITS ---
Patient Problems: Active and Suspected Problems Diabetic foot ulcer (Acute) Foot ulcer, left (Acute) Cellulitis of left foot (Acute) Osteomyelitis (Acute) SEUN (acute kidney injury) (Acute) Vascular catheter fitting or adjustment (Acute) Subjective: no c/o tolerated HD well - Physical Exam Vitals/I&O's: Vital Signs Temp Pulse Resp BP Pulse Ox 98.3 F 83 16 159/68 H 95 11/17/20 16:07 11/17/20 16:07 11/17/20 16:07 11/17/20 16:40 11/17/20 15:00 Oxygen Flow Rate (L/min) [4] 2 Oxygen Flow Rate (L/min) [3] 2 Oxygen Flow Rate (L/min) [2] 2 Oxygen Flow Rate (L/min) [1 ( 2 Initial Baseline)] Oxygen Flow Rate (L/min) 2 Oxygen Delivery Method [4] Nasal Cannula Oxygen Delivery Method [3] Nasal Cannula Oxygen Delivery Method [2] Nasal Cannula Oxygen Delivery Method [1 ( Room Air Initial Baseline)] Oxygen Delivery Method Room Air Weight: 108.9 kg Body Mass Index (BMI) 39.9 Finger Stick Blood Glucose 159 Intake and Output for Last 24 Hours 11/15/20 11/16/20 11/17/20 23:59 23:59 23:59 Intake Total 1256.5 / 1376.5 651.25 / 771.25 420 / 420 Output Total 600 / 600 700 / 700 0 / 0 Balance 656.5 / 776.5 -48.75 / 71.25 420 / 420 General: Alert, Cooperative HEENT: Atraumatic, Normocephalic Neck: Supple Lungs: Clear to auscultation, Normal air movement Cardiovascular: Normal S1, Normal S2 Abdomen: Bowel Sounds Present, Soft, Non Tender, Obese Extremities: No edema Microbiology Past 72 Hours 11/11/20 19:55 Blood Culture (Wb) - Left Forearm Blood Culture - Final No growth in 5 days. 11/11/20 20:10 Blood Culture (Wb) - Anticubital Right Blood Culture - Final No growth in 5 days. 11/14/20 04:40 Urine, Clean Catch Urine Culture - Final Culture exhibits no growth. Laboratory Results 11/14/20 15:52: c-ANCA Antibody <1:20, Atypical p-ANCA <1:20, p-ANCA Antibody <1:20 11/14/20 15:52: PABLO Screen Negative, DILLON-1 Antibody Not Reportable, SS-A/Ro IgG Antibody Not Reportable, SS-B/La IgG Antibody Not Reportable, Sm (Guerra) Antibody Not Reportable, DIAMOND DIE DRILLER Antibody Not Reportable, Scl-70 Scleroderma Ab Not Reportable, Double Strand DNA Ab Not Reportable, Centromere B Antibody Not Reportable 11/14/20 15:52: Glomerular Base Memb Ab 4, Complement C3 142, Complement C4 31 11/16/20 16:52: POC Glucose 166 H 11/16/20 20:22: POC Glucose 224 H 11/17/20 06:35: POC Glucose 350 H 11/17/20 06:43: WBC 10.4, RBC 4.24, Hgb 12.3, Hct 38.0, MCV 89.6, MCH 29.0, MCHC 32.4, RDW Std Deviation 44.5 H, RDW Coeff of Brea 13.6, Plt Count 256, MPV 9.5, Immature Gran % (Auto) 0.700, Neut % (Auto) 88.2 H, Lymph % (Auto) 7.9 L, [place] % (Auto) 3.0, Eos % (Auto) 0.0, Baso % (Auto) 0.2, Absolute Neuts (auto) 9.2 H, Absolute Lymphs (auto) 0.82 L, Nucleated RBC % 0 11/17/20 06:43: Sodium 135 L, Potassium 4.4, Chloride 106, Carbon Dioxide 19.0 L , BUN 64 H, Creatinine 6.38 H, Estim Creat Clear Calc 9.70, Est GFR (MDRD) Af Amer 9 L, Est GFR (MDRD) Non-Af 7 L, BUN/Creatinine Ratio 10.0, Glucose 353 H, Calcium 7.9 L, Phosphorus 5.5 H, Albumin 2.2 L 11/17/20 12:51: POC Glucose 305 H Current Medications Acetaminophen (Acetaminophen 325 Mg Tablet) 650 mg PO Q6H PRN PRN PRN Reason: Pain Score 1-10/Temp > 100.7 F Last Admin: 11/17/20 04:12 Dose: 650 mg Documented by: Albuterol Sulfate (Albuterol 2.5 Mg/3 Ml Vial.Neb.) 2.5 mg INHALATION Q4H PRN PRN PRN Reason: SOB &/OR WHEEZING Last Admin: 11/14/20 08:43 Dose: 2.5 mg Documented by: Amlodipine Besylate (Amlodipine 10 Mg Tablet) 10 mg PO DAILY [facility] Last Admin: 11/17/20 16:39 Dose: 10 mg Documented by: Bisacodyl (Bisacodyl 5 Mg Tablet) 5 mg PO DAILY [facility] Last Admin: 11/17/20 16:28 Dose: Not Given Documented by: Duloxetine HCl (Duloxetine Hcl 60 Mg Capsule) 60 mg PO QPM [facility] Ergocalciferol (Ergocalciferol 50,000 Unit Capsule) 50,000 unit PO Q7D [facility] Last Admin: 11/15/20 10:43 Dose: 50,000 unit Documented by: Sodium Chloride () 250 mls @ 15 mls/hr IV .[id number] PRN PRN Reason: Saline Flush Last Infusion: 11/16/20 12:00 Dose: 0 mls/hr Documented by: Sodium Chloride () 250 mls @ 15 mls/hr IV .[id number] PRN PRN Reason: Additional IVPB Infusion Ceftriaxone Sodium 2 gm/ (Sodium Chloride) 50 mls @ 100 mls/hr IV Q24 [facility] Last Admin: 11/17/20 16:28 Dose: 100 mls/hr Documented by: Insulin Glargine (Insulin Glargine 100 Units/Ml Pen) 100 units SC DAILY [facility] Last Admin: 11/17/20 12:54 Dose: 100 u Documented by: Insulin Human Lispro (Insulin Lispro 100 Unit/Ml Insuln.Pen) 0 unit SC [facility]; Protocol Last Admin: 11/17/20 16:39 Dose: 4 u Documented by: Levothyroxine Sodium (Levothyroxine 25 Mcg Tablet) 25 mcg PO DAILY@0600 [facility] Last Admin: 11/17/20 06:36 Dose: 25 mcg Documented by: Loratadine (Loratadine 10 Mg Tablet) 10 mg PO DAILY PRN PRN PRN Reason: ALLERGIES Multivitamins/Minerals (Multivitamins,Ther W-Minerals Tablet) 1 tablet PO DAILY@0800 [facility] Last Admin: 11/17/20 16:35 Dose: 1 tablet Documented by: Nicotine (Nicotine 21 Mg Patch) 21 mg TD DAILY [facility] Last Admin: 11/17/20 10:03 Dose: 21 mg Documented by: Ondansetron HCl (Ondansetron 4 Mg/2 Ml Vial) 4 mg IV Q8H PRN PRN PRN Reason: NAUSEA/VOMITING Last Admin: 11/12/20 19:09 Dose: 4 mg Documented by: Oxycodone HCl (Oxycodone 5 Mg Tablet) 5 mg PO Q6H PRN PRN PRN Reason: Pain Score 4-10 Last Admin: 11/16/20 05:05 Dose: 5 mg Documented by: Pantoprazole Sodium (Pantoprazole Sodium 20 Mg Tablet) 20 mg PO BID [facility] Last Admin: 11/17/20 16:28 Dose: Not Given Documented by: Polysaccharide Iron Complex (Iron Polysaccharide Complex 150 Mg Capsule) 150 mg PO DAILYCM [facility] Last Admin: 11/17/20 16:35 Dose: 150 mg Documented by: Prednisone (Prednisone 20 Mg Tablet) 60 mg PO DAILY@0800 [facility] Last Admin: 11/17/20 16:35 Dose: 60 mg Documented by: Pregabalin (Pregabalin 50 Mg Capsule) 100 mg PO BID [facility] Last Admin: 11/17/20 16:23 Dose: Not Given Documented by: Sevelamer Carbonate (Sevelamer Carbonate 800 Mg Tablet) 800 mg PO TIDCM [facility] Last Admin: 11/17/20 12:58 Dose: 800 mg Documented by: Sodium Bicarbonate (Sodium Bicarbonate 650 Mg Tablet) 650 mg PO TID [facility] Last Admin: 11/17/20 16:23 Dose: Not Given Documented by: Sodium Chloride (0.9% Saline Lock 10 Ml Syringe) 10 - 40 ml IV UD PRN PRN Reason: SALINE FLUSH Last Admin: 11/16/20 11:25 Dose: 10 ml Documented by: Trazodone HCl (Trazodone 50 Mg Tablet) 100 mg PO QHS [facility] Last Admin: 11/16/20 20:24 Dose: 100 mg Documented by: Medical Necessity - Tobacco Use Smoking Status: Current every day smoker Assessment/Plan All Active Problems Osteomyelitis of toe of right foot (Resolved) Skin ulcer of left great toe with fat layer exposed (Acute) Diabetic foot ulcer (Acute) Foot ulcer, left (Acute) Cellulitis of left foot (Acute) Osteomyelitis (Acute) SEUN (acute kidney injury) (Acute) Vascular catheter fitting or adjustment (Acute) SEUN 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 Continue for now prednisone for AIN component but will need to be taper fast when she started to recover and come off dialysis. Signed out to Dr. Beavers which will be her community case manager in the dialysis unit to taper the steroids fast as soon as she starts to recover. stop binders and sodium bicarbonate d/w patient hd rn and CM
[2020-11-17 16:50] LABS: Bedside Glucose 210 mg/dL (70-110)
[2020-11-20 14:08] LABS: HEPATITIS B SURFACE AG Negative (Negative); Hepatitis A IgM Antibody Negative (Negative); Hepatitis B Core AB IgM Negative (Negative)
--- NOTE | 2020-11-20 14:37 | CASEMGMT ---
CHUCK JACK Discharge F/U Phone Call LACE: 13 Strata: 3 Discharge date: 11/17/20 Call date: 11/20/20 Call time: [phone] Admission dx: Sepsis d/t great toe infection Pt states is doing 'much better' since discharge. Pt states had 1st OP dialysis on friday and then will go back tomorrow. Pt states they started to go over diet with her and will continue tomorrow. Pt states no questions regarding d/c instructions/medications at this time. Pt states has f/u virtual visit with Dr. Garcia scheduled and will see Dr. Beavers at dialysis center. Pt states no suggestions for [facility] at this time. Pt voices no further questions/concerns/needs at this time. [place] JACK
[2020-11-20 20:33] LABS: Hep C Antibodies 0.1 s/co ratio (0.0-0.9)
== END 2020-11-17 17:21 | disposition home or self-care (01) | DRG 623 ==
LOC: ED 21:37 → PCU 22:23
PROVIDERS: Internal Medicine; Internal Medicine Infectious Disease; Surgery; Admitting Provider Student in an Organized Health Care Education/Training Program; Emergency Provider Emergency Medicine; PCP Internal Medicine; Visit Provider Family Medicine
PROC: 0JH63XZ Insertion of Tunneled Vascular Access Device into Chest Subcutaneous Tissue and Fascia, Percutaneous Approach (ICD-10-PCS; principal; 2020-11-15 14:45)
DX: E11.621 Type 2 diabetes mellitus with foot ulcer (principal); L03.116 Cellulitis of left lower limb; Z68.41 Body mass index [BMI] 40.0-44.9, adult; M86.172 Other acute osteomyelitis, left ankle and foot; E87.2 Acidosis; N17.0 Acute kidney failure with tubular necrosis; L97.522 Non-pressure chronic ulcer of other part of left foot with fat layer exposed; H81.09 Meniere's disease, unspecified ear; E03.9 Hypothyroidism, unspecified; E83.39 Other disorders of phosphorus metabolism; E78.5 Hyperlipidemia, unspecified; E11.42 Type 2 diabetes mellitus with diabetic polyneuropathy; E11.69 Type 2 diabetes mellitus with other specified complication; I10 Essential (primary) hypertension; F41.8 Other specified anxiety disorders; M79.7 Fibromyalgia; Z79.4 Long term (current) use of insulin; Z79.890 Hormone replacement therapy; Z89.429 Acquired absence of other toe(s), unspecified side; Z82.5 Family history of asthma and other chronic lower respiratory diseases; Z79.899 Other long term (current) drug therapy; E66.9 Obesity, unspecified; T36.8X5A Adverse effect of other systemic antibiotics, initial encounter; F17.210 Nicotine dependence, cigarettes, uncomplicated
CPT/HCPCS: 36415; 71045; 73630; 73720; 76000; 76770; 77012; 80048; 80069; 80074; 80202; 81001; 81002; 82570; 82595; 82962; 83520; 83605; 84300; 85025; 85610; 85730; 86038; 86160; 86225; 86235; 86256; 86592; 86703; 87040; 87070; 87075; 87077; 87086; 87186; 87205; 88305; 88307; 88313; 88346; 88348; 88350; 90937; 93975; 94640; 97802; 97803; 99155; 99156; 99284; 99406; A9575; J7030; J7040; J7050; A4216; G0257; J0696; J2405

== ENCOUNTER 2020-12-08 17:24 | Emergency (ER) | payer MEDICARE, MEDICAID, SELFPAY ==
[2020-11-15 08:39] VITALS: BMI 39.9
[2020-12-08 17:25] VITALS: BP 163/84; PULSE 115; RESP 14; TEMP 36.9; O2SAT 98; BMI 38.9
--- NOTE | 2020-12-08 18:35 | ED.VIS.GEN ---
History of Present Illness Chief Complaint: Wound Detail of Chief Complaint: Left great toe Informant: Patient Onset: Days Context: Sudden Onset Timing: Continuous Quality: Pain Location: Left great toe Current Severity: Mild Maximum Severity: Moderate Worsened by: Walking Relieved by: Nothing Associated Symptoms: Redness and drainage Narrative: Patient is a 50-year-old woman with history of diabetes who was admitted approximate 1 month ago for infection of her left great toe. She was seen by podiatry. She developed renal failure requiring hemodialysis. She states the cause was vancomycin. She reports allergy to clindamycin and macrolide. She reports documented temperature of 101.0 ?F at home. She also reports chills. She denies blurred vision, polyuria polydipsia. She denies HEENT, cardiac or respiratory symptoms. She denies nausea or vomiting. She denies urologic symptoms. She is concerned that she is experiencing pain since she has diabetic neuropathy and normally does not feel anything. Prior similar symptoms: Yes Recent Illness/Hospitalization: Yes - Past Medical History (1) Diabetic foot ulcer Status: Acute (2) Osteomyelitis Status: Acute (3) Depression with anxiety Status: Chronic (4) Fibromyalgia Status: Chronic (5) Hammer toe of right foot Status: Chronic (6) Hyperlipidemia Status: Chronic (7) Meniere disease Status: Chronic (8) Obesity (BMI 30-39.9) Status: Chronic (9) Type 2 diabetes mellitus with diabetic polyneuropathy Status: Chronic Past Medical History - Allergies and Home Meds Allergies/Adverse Reactions: Allergies clindamycin Allergy (Verified 11/11/20 19:37) Hives erythromycin base [From E-Mycin] Allergy (Verified 11/11/20 19:37) Hives vancomycin Allergy (Verified 12/08/20 17:28) Hives Primary Care Physician: Shirley Garcia MD [Primary Care Provider] - Prior records reviewed: Yes Surgical History: appendectomy, - - T+A, BLTL, appendectomy, right great toe amputation. Right second toe partial amputation. Lives: Alone Smoking Status: Unknown if ever smoked Alcohol: None Drugs: None - Family History Paternal Family History: Reports: Asthma, - - Denies known paternal medical history including cardiac history. Maternal Family History: Reports: - - Thyroid disease. Review of Systems General: Reports: Chills, Fever, Malaise. Denies: Subjective, Sweats Eyes: Denies: Visual changes - bilaterally, Blurred Vision - bilaterally ENT: Denies: Bilateral ear pain, Rhinorrhea, Sore throat Cardiovascular: Denies: Chest pain, Palpitations Respiratory: Denies: Dyspnea, Cough, Dyspnea on exertion Gastrointestinal: Denies: Abdominal pain, Nausea, Vomiting, Diarrhea, Melena, Hematochezia Genitourinary: Denies: Dysuria, Hematuria, Frequency Musculoskeletal: Reports: Swelling, Extremity Pain. Denies: Myalgias, Arthralgias, Neck pain, Back pain Skin: Reports: Rash, Wounds. Denies: Abscess, Abrasions Neurological: Reports: Parasthesia. Denies: Headache, Weakness Psych: Reports: Depression Endocrine: Denies: Polyuria, Polydipsia Physical Exam Vital Signs/Narrative: Vital Signs Temp Pulse Resp BP Pulse Ox 12/08/20 17:25 98.4 F 115 H 14 163/84 H 98 Inital Vital Signs reviewed: Yes General: Well nourished, Well developed, No Acute Distress Head: Normocephalic, Atraumatic Eyes: Perrl, EOMI ENT: Moist mucous membranes, No rhinorrhea Neck: Supple, Nontender Cardiovascular: Regular rhythm, No murmurs, Normal S1, Normal S2, Tachycardia Respiratory: No distress, CTA bilaterally, Chest nontender Abdomen: Soft, Nontender, Nondistended, Normal bowel sounds Back: Nontender, Normal Inspection Extremities: No edema, Tenderness, - - Erythema of the left great toe. There is a wound on the medial plantar surface. No fluctuance. There is no lymphangitis. DP and PT pulse are 2+ on the left side. Skin: Normal color, No rash Neurological: Alert, Oriented x3, Cranial nerves II-XII grossly intact, Normal Strength, Normal Sensation Psychological: Normal affect, Normal Mood Diagnostic/Tx/Re-eval Chest X-Ray - ED: Read by ED Physician - Review x-ray of the left foot reveals no acute abnormality. There is no subcutaneous air, periosteal elevation or destruction of the phalanges involving the great toe. X-ray was interpreted by me at 1918. Impressions Foot X-Ray 12/08/20 18:45 IMPRESSION: Normal x-ray examination of the foot. Electronically Signed: Diogenes Serrano MD at 19:30 EST , Service support , 12/08/20 18:45 Foot min 3 Views [RAD] Stat Laboratory Results 12/08/20 12/08/20 12/08/20 18:35 18:35 18:35 WBC Cancelled Corrected WBC Cancelled RBC Cancelled Hgb Cancelled Hct Cancelled MCV Cancelled MCH Cancelled MCHC Cancelled RDW Std Deviation Cancelled RDW Coeff of Brea Cancelled Plt Count Cancelled MPV Cancelled Immature Gran % (Auto) Cancelled Neut % (Auto) Cancelled Lymph % (Auto) Cancelled Pendleton % (Auto) Cancelled Eos % (Auto) Cancelled Baso % (Auto) Cancelled Absolute Neuts (auto) Cancelled Absolute Lymphs (auto) Cancelled Total Counted Cancelled Neutrophils % (Manual) Cancelled Band Neutrophils % Cancelled Lymphocytes % (Manual) Cancelled Monocytes % (Manual) Cancelled Eosinophils % (Manual) Cancelled Basophils % (Manual) Cancelled Metamyelocytes % Cancelled Myelocytes % Cancelled Promyelocytes % Cancelled Blast Cells % Cancelled Plasma Cell % (Manual) Cancelled Other Cells % Cancelled Nucleated RBC % Cancelled Nucleated RBCs/100 WBC Cancelled Differential Comment Cancelled Diff Path Review Cancelled Hypersegmented Neuts Cancelled Atypical Lymphocytes Cancelled Reactive Lymphocytes Cancelled Smudge Cells Cancelled Toxic Granulation Cancelled Toxic Vacuolation Cancelled Dohle Bodies Cancelled Alida Rods Cancelled Platelet Estimate Cancelled Plt Morphology Comment Cancelled RBC Morphology Cancelled Polychromasia Cancelled Hypochromasia Cancelled Poikilocytosis Cancelled Basophilic Stippling Cancelled Anisocytosis Cancelled Microcytosis Cancelled Macrocytosis Cancelled Spherocytes Cancelled Sickle Cells Cancelled Target Cells Cancelled Tear Drop Cells Cancelled Ovalocytes Cancelled Stomatocytes Cancelled Clifton-Mcclure Bodies Cancelled Greenbush Cells Cancelled Bite Cells Cancelled Crenated Cell Cancelled Acanthocytes (Spur) Cancelled Rouleaux Cancelled Schistocytes Cancelled ESR Cancelled Sodium 132 L Potassium 4.7 Chloride 100 Carbon Dioxide 27.0 Anion Gap 5 BUN 17 Creatinine 1.15 H Estim Creat Clear Calc 53.25 Est GFR (MDRD) Af Amer 65 Est GFR (MDRD) Non-Af 53 L BUN/Creatinine Ratio 14.8 Glucose 283 H Lactic Acid Cancelled Calcium 9.6 12/08/20 12/08/20 19:57 19:57 WBC 11.8 H Corrected WBC RBC 4.37 Hgb 12.9 Hct 40.3 MCV 92.2 MCH 29.5 MCHC 32.0 RDW Std Deviation 47.8 H RDW Coeff of Brea 14.2 Plt Count 158 MPV 9.5 Immature Gran % (Auto) 1.000 H Neut % (Auto) 77.6 H Lymph % (Auto) 13.3 L Pendleton % (Auto) 6.6 Eos % (Auto) 1.1 Baso % (Auto) 0.4 Absolute Neuts (auto) 9.1 H Absolute Lymphs (auto) 1.56 Total Counted Neutrophils % (Manual) Band Neutrophils % Lymphocytes % (Manual) Monocytes % (Manual) Eosinophils % (Manual) Basophils % (Manual) Metamyelocytes % Myelocytes % Promyelocytes % Blast Cells % Plasma Cell % (Manual) Other Cells % Nucleated RBC % 0 Nucleated RBCs/100 WBC Differential Comment Diff Path Review Hypersegmented Neuts Atypical Lymphocytes Reactive Lymphocytes Smudge Cells Toxic Granulation Toxic Vacuolation Dohle Bodies Alida Rods Platelet Estimate Plt Morphology Comment RBC Morphology Polychromasia Hypochromasia Poikilocytosis Basophilic Stippling Anisocytosis Microcytosis Macrocytosis Spherocytes Sickle Cells Target Cells Tear Drop Cells Ovalocytes Stomatocytes Clifton-Mcclure Bodies Greenbush Cells Bite Cells Crenated Cell Acanthocytes (Spur) Rouleaux Schistocytes ESR 28 Sodium Potassium Chloride Carbon Dioxide Anion Gap BUN Creatinine Estim Creat Clear Calc Est GFR (MDRD) Af Amer Est GFR (MDRD) Non-Af BUN/Creatinine Ratio Glucose Lactic Acid 1.1 Calcium Patient is white count is slightly elevated. ESR is slightly elevated. Lactate is normal. Creatinine is improved to 1.15. Case was discussed with the ammonia refrigeration technician. Plan is IV antibiotics in the emergency department and discharged with doxycycline 100 mg twice daily. She is to call Dr. Guillen's office to be seen on Friday. - Medical Decision Making X-rays were obtained to determine if there is evidence of osteomyelitis. There is appropriate labs obtaining which included a CBC, ESR and lactate. Electrolyte panel was obtained to assess glucose, renal function and electrolytes. She was treated with Zosyn. ED Disposition - Plan for ED Patient: Disposition: Home or Assisted Living Diagnosis: Cellulitis of great toe, left, Hyperglycemia due to type 2 diabetes mellitus, Elevated serum creatinine Instructions: ED Cellulitis Prescriptions: Doxycycline 100 mg PO BID #14 cap Prescription Printed Referrals: Shirley Garcia MD [Primary Care Provider] - Haylee Guillen DPM [STAFF PHYSICIAN] - 12/11/20 Additional Instructions: Call Dr. Guillen's office tomorrow morning or Friday morning to be seen on Friday.
[2020-12-08] MEDS: Ondansetron 4 MG/2 ML Vial IV (18:39)
[2020-12-08] MEDS: Morphine 4 MG/ML Syringe IV (18:40)
--- NOTE | 2020-12-08 18:45 | RAD_ITS ---
STUDY: X-RAY - LEFT FOOT CLINICAL: Female, 50 years old. Injury/Pain TECHNIQUE: 3 view(s) of the foot. COMPARISON: None. FINDINGS: Normal talus, calcaneus, and tarsal bones. Normal visualized subtalar, talonavicular, calcaneocuboid, tarsal and tarsometatarsal articulations. Normal metatarsi. Normal metatarsophalangeal joint of the great toe. Normal tibial and fibular sesamoid bones. Normal interphalangeal joint of the great toe. Normal phalanges of the great toe. Normal second through fifth metatarsophalangeal joints. Normal interphalangeal joints and phalanges of the lesser toes. The soft tissue structures are unremarkable. There is no demonstrated fracture. RAD/Foot min 3 Views IMPRESSION: Normal x-ray examination of the foot. Electronically Signed: Diogenes Serrano MD at 19:30 EST , Service support ,
[2020-12-08 19:05] LABS: Anion Gap 5 (5-15); BUN 17 mg/dL (7-18); BUN/Creat Ratio 14.8 RATIO (10-20); Calcium,Total 9.6 mg/dL (8.5-10.1); Chloride 100 mmol/L (98-107); Creatinine, Serum 1.15 mg/dL (0.55-1.02); EST Glomerular Filtration Rate 53 mL/min (>60); Est Glom Filt Rate - Afr Amer 65 mL/min (>60); Estimated Creatinine Clearance 53.25 ml/min; Glucose 283 mg/dL (74-106); Potassium 4.7 mmol/L (3.5-5.1); Sodium Level 132 mmol/L (136-145)
[2020-12-08 19:26] VITALS: BP 116/70; PULSE 103; RESP 19; O2SAT 98
[2020-12-08 20:07] LABS: Absolute Lymphocyte Count 1.56 X10^3/uL (0.83-4.51); Absolute Neutrophil Count 9.1 X10^3/uL (2.0-7.7); Basophil# 0.05 X10^3/uL; Basophil% 0.4 % (0-1); Eosinophil# 0.13 X10^3/uL; Eosinophils% 1.1 % (0-5); Hematocrit 40.3 % (37-47); Hemoglobin 12.9 g/dL (12.0-15.0); Lymphocyte # 1.56 X10^3/ul (4.0); Lymphocyte % 13.3 % (19-41); Mean Corpuscular Hgb 29.5 pg (27.0-32.0); Mean Corpuscular Volume 92.2 fL (81-99); Mean Platelet Vol. 9.5 fl (6.2-12.0); Monocyte# 0.78 X10^3/uL; Monocyte% 6.6 % (0-10); NRBC Flagged by Analyzer 0 % (0-5); Neutrophil # 9.12 X10^3/uL (2.7-7.7); Neutrophil % 77.6 % (47-70); Platelet Count 158 K/mm3 (150-450); RBC Distribution Width CV 14.2 % (11.6-14.6); RBC Distribution Width SD 47.8 fl (35.1-43.9); Red Blood Count 4.37 M/mm3 (4.2-5.4); White Blood Count 11.8 K/mm3 (4.4-11.0)
[2020-12-08 20:23] LABS: Erythrocyte Sedimentation Rate 28 mm/hr (0-30)
[2020-12-08 20:32] LABS: Lactic Acid 1.1 mmol/L (0.4-1.9)
[2020-12-08 21:44] VITALS: BP 116/70; PULSE 103; RESP 19; TEMP 36.9; O2SAT 98
--- NOTE | 2020-12-08 21:44 | ED.RN ---
UPON DISCHARGING PT, PT WAS SHAKING LET AND RESTLESS. QUESTIONED PT IF SHE NEEDING ANYTHING, SHE VERBALIZED NO I AM JUST IN PAIN. OFFERED PAIN MEDICINE, SHE VERBALIZED NO I JUST LIVE DOWN THE STREET. AMBULATED OUT OF DEPARTMENT WITHOUT DIFFICULTY.
== END 2020-12-08 21:46 | disposition home or self-care (01) ==
PROVIDERS: Emergency Provider Emergency Medicine; PCP Internal Medicine
DX: L03.032 Cellulitis of left toe (principal); E11.40 Type 2 diabetes mellitus with diabetic neuropathy, unspecified; E11.65 Type 2 diabetes mellitus with hyperglycemia; E66.9 Obesity, unspecified; E78.5 Hyperlipidemia, unspecified; M79.7 Fibromyalgia; Z88.1 Allergy status to other antibiotic agents; Z83.49 Family history of other endocrine, nutritional and metabolic diseases; R79.89 Other specified abnormal findings of blood chemistry; F41.8 Other specified anxiety disorders; H81.09 Meniere's disease, unspecified ear; Z99.2 Dependence on renal dialysis
CPT/HCPCS: 36415; 73630; 80048; 83605; 85025; 85652; 87040; 96365; 96375; 99285; J7040; A4216; J2405

== ENCOUNTER 2020-12-20 12:24 | Observation (INO) | payer MEDICARE, MEDICAID, SELFPAY ==
[2020-12-19 10:56] VITALS: BMI 38.9
[2020-12-20] VITALS (8 sets, daily range): BP systolic 119–157; BP diastolic 67–91; PULSE 77–102; RESP 13–16; TEMP 36.5–36.9; O2SAT 95–98; BMI 41.1; BMI 41.4
--- NOTE | 2020-12-20 12:49 | ED.VISSUMM ---
- ER Visit Summary Date of Service: 12/20/20 Chief Complaint: Left first toe infected History of Present Illness: The patient is a [address] Guillen and Dr. Garcia. She was admitted to the hospital last month for sepsis due to her left great toe. She was discharged on doxycycline. She went to the wound center yesterday. Despite the doxycycline patient reports that she has had increasing redness and drainage from her left great toe that began 2 days ago. States that the drainage is yellow. She complains of a throbbing pain is 10 out of 10 at worst and 9 out of 10 currently. Is worsened by walking relieved by rest. There is been no relief with Tylenol. She reports that she has chronic paresthesias in her legs bilaterally that are unchanged. Patient reports that this morning she had subjective fever, chills, nausea. She denies any other complaints. Physical Examination: Vitals: Stable. Afebrile. General: Well-nourished and well-developed. Head: Normocephalic atraumatic. Neck: Supple, no lymphadenopathy. No JVD. Nontender. Cardiovascular: Regular rate and rhythm. No murmurs. Respiratory: No respiratory distress. Clear to auscultation bilaterally. Abdominal: Soft, nontender, nondistended, normal bowel sounds. No guarding, rebound, or peritoneal signs. Back: Nontender. Extremities: Left great toe is swollen and erythematous. Is moderately tender to palpation. She does have a draining wound on the medial side of this. She has 2+ dorsalis pedis pulse. She has decrease sensation to light touch in a stocking distribution. Skin: Normal color, no rash. Neurologic: Alert and oriented ?3. Cranial nerves II through XII are intact. Normal strength and sensation. Psych: Normal affect. Test Results: CBC shows an H&H 10.9 and 33.5, second neutrophils 77, lymphocytes 15. Chem-7 shows sodium 134, glucose of 392. Of note her creatinine is 0.95. ESR is 18. CRP is 8.35. LFTs show an albumin of 3.0, AST of 9, alk phos of 135, total protein 6.3. INR is 1.1. PTT is 28.5. Lactic acid is 1.6. Clinical Impression(s) from Imaging Studies Foot X-Ray 03/24/21 13:27 IMPRESSION: Soft tissue swelling overlying the great toe Electronically Signed: Jaydon Villanueva MD at 13:45 EDT , Service support , Emergency Department Course and Treatment: Patient had an IV placed. She was given Zosyn, morphine, and Zofran IV. At this time vancomycin has been held because she went into renal failure last month following an MRI and vancomycin. Treatment Plan: Patient was discussed with Dr. Aponte. She will be admitted the hospital for further evaluation and treatment. Disposition: Admitted in improved condition. Impression: 1. Abscess left great toe. 2. [id number] diabetes mellitus. This note was generated with [employer] dictation software. It may contain incorrect words, spelling, and punctuation that were not noted in review of the chart prior to signing ED Disposition - Plan for ED Patient: Referrals: Shirley Garcia MD [Primary Care Provider] -
[2020-12-20] MEDS: Ondansetron 4 MG/2 ML Vial IV (13:02)
[2020-12-20] MEDS: Morphine 4 MG/ML Syringe IV ×2 (13:02→17:06)
[2020-12-20 13:08] LABS: Erythrocyte Sedimentation Rate 18 mm/hr (0-30)
[2020-12-20 13:10] LABS: Absolute Lymphocyte Count 1.33 X10^3/uL (0.83-4.51); Absolute Neutrophil Count 6.6 X10^3/uL (2.0-7.7); Basophil# 0.04 X10^3/uL; Basophil% 0.5 % (0-1); Eosinophil# 0.08 X10^3/uL; Eosinophils% 0.9 % (0-5); Hematocrit 33.5 % (37-47); Hemoglobin 10.9 g/dL (12.0-15.0); Lymphocyte # 1.33 X10^3/ul (4.0); Lymphocyte % 15.4 % (19-41); Mean Corp Hgb Conc 32.5 g/dL (32-36); Mean Corpuscular Hgb 29.6 pg (27.0-32.0); Mean Platelet Vol. 9.5 fl (6.2-12.0); Monocyte# 0.51 X10^3/uL; Monocyte% 5.9 % (0-10); NRBC Flagged by Analyzer 0 % (0-5); Neutrophil # 6.64 X10^3/uL (2.7-7.7); Neutrophil % 76.6 % (47-70); Platelet Count 181 K/mm3 (150-450); RBC Distribution Width CV 14.3 % (11.6-14.6); Red Blood Count 3.68 M/mm3 (4.2-5.4); White Blood Count 8.7 K/mm3 (4.4-11.0)
[2020-12-20 13:15] LABS: International Normalized Ratio 1.1; Partial Thromboplast Time 28.5 Seconds (24.1-36.2); Prothrombin Time (Protime)PT. 13.4 SECONDS (11.7-14.9)
--- NOTE | 2020-12-20 13:27 | RAD_ITS ---
STUDY: X-RAY - LEFT FOOT CLINICAL: Female, 50 years old. Osteo TECHNIQUE: 3 view(s) of the foot. COMPARISON: Comparison is made with prior examination dated 12/08/2020. FINDINGS: Normal talus, calcaneus, and tarsal bones. Normal visualized subtalar, talonavicular, calcaneocuboid, tarsal and tarsometatarsal articulations. Normal metatarsi. There is degenerative arthrosis of the metatarsophalangeal joint of the hallux . Normal tibial and fibular sesamoid bones. Normal interphalangeal joint of the great toe. Normal phalanges of the great toe. Normal second through fifth metatarsophalangeal joints. Normal interphalangeal joints and phalanges of the lesser toes. Soft tissue swelling overlying the great toe. No bony destruction is seen. RAD/Foot min 3 Views IMPRESSION: Soft tissue swelling overlying the great toe Electronically Signed: Jaydon Villanueva MD at 13:45 EDT , Service support ,
[2020-12-20 13:28] LABS: Lactic Acid 1.6 mmol/L (0.4-1.9)
[2020-12-20 13:33] LABS: ALB/GLOB Ratio 0.9 RATIO (0.9-2.4); AST(SGOT) 9 U/L (15-37); Alanine Aminotransfer ALT/SGPT 22 U/L (13-56); Alkaline Phosphatase 135 U/L (45-117); Anion Gap 5 (5-15); BUN 12 mg/dL (7-18); BUN/Creat Ratio 12.6 RATIO (10-20); CRP 8.35 mg/L (0.0-3.0); Calcium,Total 8.5 mg/dL (8.5-10.1); Chloride 104 mmol/L (98-107); Creatinine, Serum 0.95 mg/dL (0.55-1.02); EST Glomerular Filtration Rate 66 mL/min (>60); Est Glom Filt Rate - Afr Amer 80 mL/min (>60); Estimated Creatinine Clearance 64.46 ml/min; Globulin 3.3 g/dL (2.2-4.2); Glucose 392 mg/dL (74-106); Protein, Total 6.3 g/dL (6.4-8.2); Sodium Level 134 mmol/L (136-145)
--- NOTE | 2020-12-20 14:30 | NURSING ---
DR KING FOR DR BHAKTA
--- NOTE | 2020-12-20 14:37 | NURSING ---
MED SURG CHRISTINE ABSCESS LEFT GREAT TOE
--- NOTE | 2020-12-20 14:46 | NURSING ---
DR KING IN ER
--- NOTE | 2020-12-20 15:14 | PCM.HP.STD ---
Problem List (1) Osteomyelitis of toe of right foot Status: Resolved (2) Skin ulcer of left great toe with fat layer exposed Status: Acute (3) Diabetic foot ulcer Status: Acute Qualifiers: Diabetic foot ulcer location: toe Diabetes mellitus type: type 2 Laterality: left (4) Osteomyelitis Status: Acute (5) SEUN (acute kidney injury) Status: Resolved (6) Vascular catheter fitting or adjustment Status: Resolved (7) Presence of permanent central venous catheter Status: Resolved (8) Meniere disease Status: Chronic (9) Osteomyelitis of second toe of right foot Status: Suspected (10) Chronic ulcer of right foot with fat layer exposed Status: Chronic (11) Type 2 diabetes mellitus with diabetic polyneuropathy Status: Chronic (12) Hammer toe of right foot Status: Chronic (13) Obesity (BMI 30-39.9) Status: Chronic (14) Vertigo Status: Chronic (15) Hyperlipidemia Status: Chronic (16) Fibromyalgia Status: Chronic (17) Depression with anxiety Status: Chronic History of Present Illness Date of Admission: 12/20/20 Chief Complaint: Left great toe abscess and ulcer The patient is a 50 year old F with history of left great toe osteomyelitis for which she was admitted in October 2020 came to ER for increased pain, swelling and drainage from the left great toe. During previous admission, patient had MRI with contrast and vancomycin for osteomyelitis which resulted into acute kidney injury/AIN for which she required temporary hemodialysis through tunneled dialysis catheter. Her creatinine peaked up at 7.18. Current BUN/creatinine normal range. She has generalized symptoms of chills, aches and pain but denies vomiting, headache. Pain is 8-10/10 intensity, worse with movement. Patient has diabetic foot shoe. She was sent to ER from wound care center as infection is getting worse. She is on doxycycline at home. In ED, vital signs are in normal range except initial BP was 157/81. Heart rate 102/min. CRP elevated. Normal white count. Liver chemistry shows alkaline phosphatase 135. Glucose 210 in Accu-Chek and 392 and BMP. Lactic acid normal. Last A1c 9.9 in February 2020. Patient had foot x-ray done which shows soft tissue swelling overlying the great toe. Past Medical History Past Medical History (Chronic Problems): Chronic Problems (Last Reviewed 12/15/20 @ 10:40 by Yudelka Bustos) Meniere disease (Chronic) Chronic ulcer of right foot with fat layer exposed (Chronic) Type 2 diabetes mellitus with diabetic polyneuropathy (Chronic) Hammer toe of right foot (Chronic) Obesity (BMI 30-39.9) (Chronic) Vertigo (Chronic) Hyperlipidemia (Chronic) Fibromyalgia (Chronic) Depression with anxiety (Chronic) Medical History: Medical History (Last Reviewed 12/15/20 @ 10:40 by Yudelka Bustos) Osteomyelitis of toe of right foot (Resolved) M86.9 Skin ulcer of left great toe with fat layer exposed (Acute) L97.522 Diabetic foot ulcer (Acute) E11.621, L97.509 Osteomyelitis (Acute) M86.9 SEUN (acute kidney injury) (Acute) N17.9 Vascular catheter fitting or adjustment (Acute) Z45.2 Presence of permanent central venous catheter (Acute) Z95.828 Meniere disease (Chronic) H81.09 Osteomyelitis of second toe of right foot (Suspected) M86.9 Chronic ulcer of right foot with fat layer exposed (Chronic) L97.512 Type 2 diabetes mellitus with diabetic polyneuropathy (Chronic) E11.42 Obesity (BMI 30-39.9) (Chronic) E66.9 Vertigo (Chronic) R42 Hyperlipidemia (Chronic) E78.5 Fibromyalgia (Chronic) Depression with anxiety (Chronic) Allergies clindamycin Allergy (Verified 12/19/20 11:05) Hives erythromycin base [From E-Mycin] Allergy (Verified 12/19/20 11:05) Hives vancomycin Allergy (Verified 12/19/20 11:05) Hives Gadolinium-MRI Contrast Medium [CONTRAST] Adverse Reaction (Verified 12/20/20 12:25) NEEDS FOLLOW-UP Iodinated Contrast Media [CONTRASTS] Adverse Reaction (Verified 12/20/20 12:25) NEEDS FOLLOW-UP Home Medications: Ambulatory Orders Medication Instructions Recorded Albuterol Inhaler [Ventolin Hfa] 1 - 2 puff INHALATION Q6H PRN PRN 08/30/19 Atorvastatin Calcium [Lipitor] 80 mg PO DAILY 08/30/19 Dulaglutide [Trulicity] 0.75 mg SQ WE 08/30/19 Duloxetine HCl 60 mg PO DAILY@1800 03/21/20 Multivitamin with Minerals 1 tab PO DAILY 03/21/20 [Multiple Vitamin] Pregabalin [Lyrica] 100 mg PO BID 03/21/20 Ergocalciferol [Vitamin D] 50,000 unit PO WE 10/17/20 Insulin Degludec [Tresiba 100 unit SQ DAILY 10/17/20 Flextouch U-100] Levothyroxine [Synthroid] 25 mcg PO DAILY 11/11/20 Pantoprazole Sodium [Protonix] 20 mg PO BID 11/11/20 Doxycycline 100 mg PO BID #72 cap 11/17/20 Acetaminophen [Tylenol Arthritis] 1,300 mg PO DAILY PRN PRN 12/08/20 Biotin 5,000 mcg SL DAILY 12/08/20 Hydroxyzine Pamoate 100 mg PO QHS PRN 12/08/20 Losartan Potassium 50 mg PO DAILY 12/08/20 Amlodipine [Norvasc] 10 mg PO DAILY 12/20/20 Trazodone HCl 100 mg PO QHS 12/20/20 Surgical History: appendectomy, - - T+A, BLTL, appendectomy, right great toe amputation. Right second toe partial amputation. 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 Maternal History Items: - - Thyroid disease. Review of Systems Constitutional: Reports: Chills, Malaise, Weakness. Denies: Fever, Weight Change HEENT: Denies: Head Aches, Sinus Congestion, Sinus Drainage Cardiovascular: Denies: Chest Pain, Palpitations Respiratory: Denies: Cough, Shortness of breath at rest, Sputum production Gastrointestinal: Denies: Abdominal Pain, Nausea, Vomiting Genitourinary: Denies: Dysuria Musculoskeletal: Denies: Joint Pain, Joint Tenderness Skin: Reports: Rash, Skin Changes, Wounds Neurological: Reports: Incoordination, Numbness, Tingling. Denies: Focal weakness Psychiatric: Reports: Anxiety, Depression. Denies: Homicidal Ideations, Suicidal Ideations Hematologic/ Lymphatic: Denies: Easy Bruising, Easy Bleeding VTE Information - Inpt Only VTE Present on Admission: No VTE Mechan Device Prophylaxis: None VTE Pharm Prophylaxis ordered?: Yes Objective: General: Alert, Oriented x3, Cooperative HEENT: Atraumatic, PERRLA, EOMI, Normocephalic Oral: No Gingival or Mucosal Lesions/ Ulcerations Neck: Supple, No JVD, Negative Carotid Bruits Lungs: Air entry diminished in bilateral lung bases. No crepitation/rhonchi Cardiovascular: Regular rate, Regular Rhythm, Normal S1, Normal S2, No murmurs Abdomen: Bowel Sounds Present, Soft, Non Tender, Non-Distended : No renal angle tenderness. No suprapubic tenderness. Extremities: No edema, Capillary Refill Less than 3 Seconds Skin: Subcutaneous deep ulcer over plantar aspect of left toe. Tenderness, swelling and induration of left great toe. Redness extends proximally up to mid forefoot. Musculoskeletal: No Tenderness to Palpation of Joints or Extremities Neurological: Decreased sensation over plantar aspect of bilateral foot. Position sense great toe absence. Cranial nerves II-XII grossly intact, Deep Tendon Reflexes 2+/4 Psych/Mental Status: Normal Affect, Appropriate. - Physical Exam Vitals/I&O's: Vital Signs Temp Pulse Resp BP Pulse Ox 98.1 F 91 16 128/91 H 97 12/20/20 14:55 12/20/20 14:55 12/20/20 14:55 12/20/20 14:55 12/20/20 14:55 Oxygen Delivery Method Room Air Weight: 246 lb 14.684 oz Body Mass Index (BMI) 41.1 Finger Stick Blood Glucose 159 Intake and Output for Last 24 Hours 12/18/20 12/19/20 12/20/20 23:59 23:59 23:59 Intake Total 100 / 100 Balance 100 / 100 Laboratory Results 12/20/20 12:55: WBC 8.7, RBC 3.68 L, Hgb 10.9 L, Hct 33.5 L, MCV 91.0, MCH 29.6, MCHC 32.5, RDW Std Deviation 47.0 H, RDW Coeff of Brea 14.3, Plt Count 181, MPV 9.5, Immature Gran % (Auto) 0.700, Neut % (Auto) 76.6 H, Lymph % (Auto) 15.4 L, [place] % (Auto) 5.9, Eos % (Auto) 0.9, Baso % (Auto) 0.5, Absolute Neuts (auto) 6.6, Absolute Lymphs (auto) 1.33, Nucleated RBC % 0, ESR 18 12/20/20 12:55: PT 13.4, INR 1.1, APTT 28.5 12/20/20 12:55: Sodium 134 L, Potassium 4.0, Chloride 104, Carbon Dioxide 25.0, Anion Gap 5, BUN 12, Creatinine 0.95, Estim Creat Clear Calc 64.46, Est GFR (MDRD) Af Amer 80, Est GFR (MDRD) Non-Af 66, BUN/Creatinine Ratio 12.6, Glucose 392 H, Calcium 8.5, Total Bilirubin 0.50, AST 9 L, ALT 22, Alkaline Phosphatase 135 H, C-React Prot Ext Range 8.35 H, Total Protein 6.3 L, Albumin 3.0 L, Globulin 3.3, Albumin/Globulin Ratio 0.9 12/20/20 12:55: Lactic Acid 1.6 Current Medications Sodium Chloride (0.9% Saline Lock 10 Ml Syringe) 10 - 40 ml IV UD PRN PRN Reason: SALINE FLUSH Assessment/Plan All Active Problems (Last Reviewed 12/15/20 @ 10:40 by Yudelka Bustos) Osteomyelitis of toe of right foot (Resolved) Skin ulcer of left great toe with fat layer exposed (Acute) Diabetic foot ulcer (Acute) Osteomyelitis (Acute) SEUN (acute kidney injury) (Resolved) Presence of permanent central venous catheter (Resolved) Vascular catheter fitting or adjustment (Resolved) The patient is a 50 year old F with history of left great toe osteomyelitis for which she was admitted in October 2020 came to ER for increased pain, swelling and drainage from the left great toe with worsening of ulcer. 1. Chronic ulcer of left great toe with localized cellulitis extending up to left forefoot with recent history of acute osteomyelitis: Patient is being admitted in PCU. Consult podiatry. Previous wound culture shows MSSE sensitive to doxycycline. Other wound culture was coagulase-negative staph. Patient started on IV Zosyn and continue it. ID has been consulted. 2. Diabetes mellitus type 2, uncontrolled complicated with diabetic polyneuropathy diabetic foot: Patient has decreased sensation over plantar aspect of both feet. Accu-Cheks before meals and at bedtime. At home, patient on Trulicity and Tresiba. Started on Lantus 90 units subcutaneous daily along with prandial Humalog insulin and sliding scale coverage. Titrate the dose of insulin as per Accu-Cheks. A1c tomorrow a.m. 3. Recent history of acute kidney injury from AIN from vancomycin and IV contrast, Dotarem: Continue losartan as her home medications. Avoid vancomycin or other nephrotoxic medications. Monitor kidney function daily. 4. Hypertension: Blood pressure last one is 126/75. Continue home medication. 5. Other comorbidities include hypothyroidism, morbid obesity, BMI 41.4 kg/m?: Home medication reconciliation done. VTE prophylaxis: Lovenox 40 mg subcu daily Living will/advanced directive/end of life care: Patient does have living will or advanced directive. After discussion of benefits/risks procedures involved with full code, DNR CC arrest and DNR CC, the patient opted for full code Patient does want artificial life support including intubation, tube feed, ventilator and/chest compression, central venous catheter, vasopressor and DC shock if needed Total time spent in [id number] encounter in discussion of advanced directive 16 minutes. Clinical Impression(s) from Imaging Studies Foot X-Ray 12/20/20 13:27 IMPRESSION: Soft tissue swelling overlying the great toe Inpatient E&M: 20842 Init Hosp L3 Procedures: 03930 Advncd Care Plan 30 Min
[2020-12-20] MEDS: 0.9% Normal Saline 1,000 ML 75 ML IV (15:30)
--- NOTE | 2020-12-20 16:00 | CON.PCM_ITS ---
Problem List (1) Non-pressure chronic ulcer of other part of left foot with fat layer exposed Status: Chronic (2) Cellulitis of toe of left foot Status: Acute (3) Diabetic foot ulcer Status: Acute Qualifiers: Diabetic foot ulcer location: toe Diabetes mellitus type: type 2 Laterality: left Reason for Consult Date of Consultation: 12/20/20 Reason for Consultation: left foot ulcer History of Present Illness: The patient is a 50 year old F who I am well established with. Patient was seen by me yesterday at the wound care center at which time patient was complaining of some increased pain to her ulcer site. This morning patient woke up with nausea fever chills and temperature. To call the office for emergency visit notes she was seen this morning in office. It is noted that the toe ulcer had increased drainage with increased amount of erythema and edema surrounding the digit. That given patient clinical symptoms we decided patient should go to the emergency room for further work-up. Patient has been on doxycycline since discharge from the hospital from previous admission at which time she had an SEUN from vancomycin and IV contrast dye. Patient wears a surgical shoe with offloaded area to the ulceration site. Patient has history of osteomyelitis to the right hallux which required amputation. Patient would like to try to save the toe if at all possible. [] Past Medical History Past Medical History (Chronic Problems): Chronic Problems (Last Reviewed 12/15/20 @ 10:40 by Yudelak Bustos) Non-pressure chronic ulcer of other part of left foot with fat layer exposed (Chronic) Meniere disease (Chronic) Chronic ulcer of right foot with fat layer exposed (Chronic) Type 2 diabetes mellitus with diabetic polyneuropathy (Chronic) Hammer toe of right foot (Chronic) Obesity (BMI 30-39.9) (Chronic) Vertigo (Chronic) Hyperlipidemia (Chronic) Fibromyalgia (Chronic) Depression with anxiety (Chronic) Medical History: Medical History (Last Reviewed 12/15/20 @ 10:40 by Yudelka Bustos) Osteomyelitis of toe of right foot (Resolved) M86.9 Skin ulcer of left great toe with fat layer exposed (Acute) L97.522 Diabetic foot ulcer (Acute) E11.621, L97.509 Osteomyelitis (Acute) M86.9 Meniere disease (Chronic) H81.09 Osteomyelitis of second toe of right foot (Suspected) M86.9 Chronic ulcer of right foot with fat layer exposed (Chronic) L97.512 Type 2 diabetes mellitus with diabetic polyneuropathy (Chronic) E11.42 Obesity (BMI 30-39.9) (Chronic) E66.9 Vertigo (Chronic) R42 Hyperlipidemia (Chronic) E78.5 Fibromyalgia (Chronic) Depression with anxiety (Chronic) SEUN (acute kidney injury) (Resolved) N17.9 Presence of permanent central venous catheter (Resolved) Z95.828 Vascular catheter fitting or adjustment (Resolved) Z45.2 Allergies clindamycin Allergy (Verified 12/19/20 11:05) Hives erythromycin base [From E-Mycin] Allergy (Verified 12/19/20 11:05) Hives vancomycin Allergy (Verified 12/19/20 11:05) Hives Gadolinium-MRI Contrast Medium [CONTRAST] Adverse Reaction (Verified 12/20/20 12:25) NEEDS FOLLOW-UP Iodinated Contrast Media [CONTRASTS] Adverse Reaction (Verified 12/20/20 12:25) NEEDS FOLLOW-UP Home Medications: Ambulatory Orders Medication Instructions Recorded Albuterol Inhaler [Ventolin Hfa] 1 - 2 puff INHALATION Q6H PRN PRN 08/30/19 Atorvastatin Calcium [Lipitor] 80 mg PO DAILY 08/30/19 Dulaglutide [Trulicity] 0.75 mg SQ WE 08/30/19 Duloxetine HCl 60 mg PO DAILY@1800 03/21/20 Multivitamin with Minerals 1 tab PO DAILY 03/21/20 [Multiple Vitamin] Pregabalin [Lyrica] 100 mg PO BID 03/21/20 Ergocalciferol [Vitamin D] 50,000 unit PO WE 10/17/20 Insulin Degludec [Tresiba 100 unit SQ DAILY 10/17/20 Flextouch U-100] Levothyroxine [Synthroid] 25 mcg PO DAILY 11/11/20 Pantoprazole Sodium [Protonix] 20 mg PO BID 11/11/20 Doxycycline 100 mg PO BID #72 cap 11/17/20 Acetaminophen [Tylenol Arthritis] 1,300 mg PO DAILY PRN PRN 12/08/20 Biotin 5,000 mcg SL DAILY 12/08/20 Hydroxyzine Pamoate 100 mg PO QHS PRN 12/08/20 Losartan Potassium 50 mg PO DAILY 12/08/20 Amlodipine [Norvasc] 10 mg PO DAILY 12/20/20 Trazodone HCl 100 mg PO QHS 12/20/20 Surgical History: appendectomy, - - T+A, BLTL, appendectomy, right great toe amputation. Right second toe partial amputation. 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 Paternal History Items: Asthma, - - Denies known paternal medical history including cardiac history. Review of Systems Constitutional: Reports: Chills, Fever HEENT: Denies: Hard of Hearing Cardiovascular: Reports: Edema - Left hallux. Denies: Chest Pain Respiratory: Reports: Cough - Chronic. Denies: Shortness of Breath Gastrointestinal: Denies: Nausea, Vomiting Musculoskeletal: Reports: Foot Pain, - - Right hallux amputation Skin: Reports: Wounds - Left hallux Neurological: Reports: Numbness, Tingling Patient Problems: Active and Suspected Problems (Last Reviewed 12/15/20 @ 10:40 by Yudelka Bustos) Cellulitis of toe of left foot (Acute) Skin ulcer of left great toe with fat layer exposed (Acute) Diabetic foot ulcer (Acute) Osteomyelitis (Acute) Osteomyelitis of second toe of right foot (Suspected) - Physical Exam Vitals/I&O's: Vital Signs Temp Pulse Resp BP Pulse Ox 97.8 F 88 16 132/82 H 97 12/20/20 15:15 12/20/20 15:20 12/20/20 15:15 12/20/20 15:15 12/20/20 15:15 Oxygen Delivery Method Room Air Weight: 112.9 kg Body Mass Index (BMI) 41.4 Finger Stick Blood Glucose 159 Intake and Output for Last 24 Hours 12/18/20 12/19/20 12/20/20 23:59 23:59 23:59 Intake Total 100 / 100 Balance 100 / 100 General: Alert, Oriented x3, Cooperative HEENT: Atraumatic Abdomen: Obese Extremities: No clubbing, No cyanosis, No Calf Tenderness, Edema - Edema and erythema noted to left hallux worsening from previous visit 24 hours ago, Peripheral Pulses Normal, Tenderness - Left hallux Skin: Ulcer/ Wound - Left medial plantar hallux ulceration. No malodor, purulence, probing to bone, crepitus. There is surrounding erythema and edema with slight fluctuation noted. Skin is atrophic and hairless. Granular base sanguinous drainage. Musculoskeletal: Tenderness - Left hallux Neurological: - - Decrease in epicritic sensation consistent with neuropathy Psych/Mental Status: Normal Affect, Appropriate Laboratory Results 12/20/20 12:55: WBC 8.7, RBC 3.68 L, Hgb 10.9 L, Hct 33.5 L, MCV 91.0, MCH 29.6, MCHC 32.5, RDW Std Deviation 47.0 H, RDW Coeff of Brea 14.3, Plt Count 181, MPV 9.5, Immature Gran % (Auto) 0.700, Neut % (Auto) 76.6 H, Lymph % (Auto) 15.4 L, [place] % (Auto) 5.9, Eos % (Auto) 0.9, Baso % (Auto) 0.5, Absolute Neuts (auto) 6.6, Absolute Lymphs (auto) 1.33, Nucleated RBC % 0, ESR 18 12/20/20 12:55: PT 13.4, INR 1.1, APTT 28.5 12/20/20 12:55: Sodium 134 L, Potassium 4.0, Chloride 104, Carbon Dioxide 25.0, Anion Gap 5, BUN 12, Creatinine 0.95, Estim Creat Clear Calc 64.46, Est GFR (MDRD) Af Amer 80, Est GFR (MDRD) Non-Af 66, BUN/Creatinine Ratio 12.6, Glucose 392 H, Calcium 8.5, Total Bilirubin 0.50, AST 9 L, ALT 22, Alkaline Phosphatase 135 H, C-React Prot Ext Range 8.35 H, Total Protein 6.3 L, Albumin 3.0 L, Globulin 3.3, Albumin/Globulin Ratio 0.9 12/20/20 12:55: Lactic Acid 1.6 12/20/20 12:55: Phosphorus Pending, Magnesium Pending, Prealbumin Pending Current Medications Acetaminophen (Acetaminophen 325 Mg Tablet) 650 mg PO Q6H PRN PRN PRN Reason: Pain Score 1-10/Temp > 100.7 F Albuterol Sulfate (Albuterol 2.5 Mg/3 Ml Vial.Neb.) 2.5 mg INHALATION Q4H PRN PRN Reason: SOB &/OR WHEEZING Amlodipine Besylate (Amlodipine 10 Mg Tablet) 10 mg PO DAILY [facility] Atorvastatin Calcium (Atorvastatin Calcium 80 Mg Tablet) 80 mg PO QHS [facility] Dextrose (Dextrose 50%-Water 25 Gm/50 Ml Disp.Syrin) 0 gm IV X1 PRN; Protocol PRN Reason: Hypoglycemia Doxycycline Monohydrate (Doxycycline 100 Mg Capsule) 100 mg PO BID [facility] Duloxetine HCl (Duloxetine Hcl 60 Mg Capsule) 60 mg PO DAILY@1800 [facility] Ergocalciferol (Ergocalciferol 50,000 Unit Capsule) 50,000 unit PO WE [facility] Glucagon (Glucagon 1 Mg/Ml Syringe) 1 mg IM .X1 PRN PRN Reason: Hypoglycemia Sodium Chloride () 1,000 mls @ 75 mls/hr IV .[id number] [facility] Stop: 12/21/20 04:52 Piperacillin Sod/Tazobactam (Sod 3.375 gm/ Sodium Chloride) 50 mls @ 12.5 mls/hr IV Q8 [facility] Insulin Glargine (Insulin Glargine 100 Units/Ml Pen) 90 units SC BREAKFAST [facility] Insulin Human Lispro (Insulin Lispro 100 Unit/Ml Insuln.Pen) 0 unit SC ACHS ASHLEY; Protocol Insulin Human Lispro (Insulin Lispro 100 Unit/Ml Insuln.Pen) 15 unit SC TIDAC [facility] Levothyroxine Sodium (Levothyroxine 25 Mcg Tablet) 25 mcg PO DAILY [facility] Losartan Potassium (Losartan Potassium 50 Mg Tablet) 50 mg PO DAILY [facility] Morphine Sulfate (Morphine 4 Mg/Ml Syringe) 4 mg IV Q3H PRN PRN PRN Reason: Pain Score 6-10 Nitroglycerin (Nitroglycerin (Inpatient Use) 0.4 Mg Tab.Subl) 0.4 mg SL Q5M PRN PRN Reason: CARDIAC/CHEST PAIN Non-Formulary Medication (Hydroxyzine Pamoate) 100 mg PO QHS PRN PRN Reason: ANXIETY Non-Formulary Medication (Pregabalin [Lyrica]) 100 mg PO BID [facility] Oxycodone HCl (Oxycodone 5 Mg Tablet) 5 mg PO Q4H PRN PRN PRN Reason: Pain Score 4-10 Pantoprazole Sodium (Pantoprazole Sodium 20 Mg Tablet) 20 mg PO BID [facility] Polyethylene Glycol (Polyethylene Glycol 3350 17 Gm Packet) 17 gm PO DAILY [facility] Prochlorperazine Edisylate (Prochlorperazine 10 Mg/2 Ml Vial) 5 mg IV Q4H PRN PRN PRN Reason: Breakthrough nausea/vomiting Trazodone HCl (Trazodone 100 Mg Tablet) 100 mg PO QHS [facility] Assessment/Plan All Active Problems (Last Reviewed 12/15/20 @ 10:40 by Yudelka Bustos) Cellulitis of toe of left foot (Acute) Osteomyelitis of toe of right foot (Resolved) Skin ulcer of left great toe with fat layer exposed (Acute) Diabetic foot ulcer (Acute) Osteomyelitis (Acute) SEUN (acute kidney injury) (Resolved) Presence of permanent central venous catheter (Resolved) Vascular catheter fitting or adjustment (Resolved) Left hallux ulceration Left foot cellulitis Possible deeper infection abscess versus osteomyelitis Diabetes with neuropathy History of osteomyelitis with amputation of right hallux Patient seen and examined. WBC 8.7, ESR 18, CRP 8.35 Patient is well-known to me and has been battling this wound to her left hallux for months. Patient had recent worsening of wound which required admission to the hospital with IV antibiotics. At that time patient received vancomycin and IV contrast dye which gave her an SEUN. Patient has recently come off of dialysis. Patient was discharged at that time with doxycycline. Patient still on doxycycline. Patient had recent worsening of the wound even from when I saw her 12/19/2020 2 today 12/20/2020. At time of previous admission an MRI was obtained which showed ostitis of the left hallux. I recommend getting another MRI to see if there has been any progression of infection or an abscess. MRI ordered left toes Discussed with the patient that we will await these results and order further tests discuss if there is any necessity for surgery whether amputation or an I&D. Patient would like to save toe if at all possible. Again discussed that we will know more once results come back. Cultures were obtained follow results Continue antibiotics per infectious disease All questions were answered Thank you for the consult. Please contact if any questions or concerns Haylee Guillen DPM [facility] [phone]
--- NOTE | 2020-12-20 16:12 | MRI_ITS ---
STUDY: MRI LEFT FOREFOOT WITHOUT CONTRAST REASON FOR EXAM: Female, 50 years old. possible abscess/OM left hallux - TECHNIQUE: Standardized fat and water weighted pulse sequences were obtained in all 3 orthogonal planes. COMPARISON: X-ray dated 12/20/2020 and MRI dated 11/13/2020. FINDINGS: First digit soft tissue swelling with skin thickening. No abscess identified. No acute osteomyelitis. No acute fracture or dislocation. Mild reactive bone marrow edema at the first metatarsal head. First metatarsophalangeal joint arthrosis. Mild/moderate tarsometatarsal joint arthrosis predominating medially. Medial navicular cuneiform arthrosis. Mild talonavicular arthrosis. Stable stress reactions at the second and third metatarsals. Mild muscle atrophy (axial image 9 series 4). Flexor and extensor tendons intact without acute abnormality. Normal Lisfranc ligament. Capsular/ligamentous structures intact. Visualized portions of the plantar fascia intact. Normal plantar plates. MRI/Lower Ext/No Jt/w/o IMPRESSION: No acute osteomyelitis or abscess Soft tissue swelling/cellulitis Degenerative changes, as above, with stable metatarsal stress reactions Muscle atrophy/denervation Electronically Signed: Jd España DO at 8:05 EDT Tel , Service support ,
[2020-12-20 16:17] LABS: Magnesium 1.5 mg/dL (1.6-2.6); Phosphorus 2.9 mg/dL (2.5-4.9); Prealbumin 18.4 mg/dL (20.0-40.0)
[2020-12-20 16:55] LABS: Bedside Glucose 332 mg/dL (70-110)
[2020-12-20] MEDS: Insulin Lispro 100 UNIT/ML INSULN.PEN SC (16:58)
[2020-12-20] MEDS: Insulin Lispro 100 UNIT/ML INSULN.PEN 15 UNIT SC (16:58)
[2020-12-20] MEDS: 0.9% Saline Lock 10 ML Syringe IV (17:58)
[2020-12-20] MEDS: DULoxetine Hcl 60 MG Capsule PO (19:14)
[2020-12-20] MEDS: Glucerna Shake 120 ML LIQUID PO (19:14)
[2020-12-20 20:11] LABS: Bedside Glucose 80 mg/dL (70-110)
[2020-12-20] MEDS: Acetaminophen 325 MG Tablet 650 MG PO (20:19)
[2020-12-20] MEDS: oxyCODONE 5 MG Tablet PO (20:19)
[2020-12-20] MEDS: Pantoprazole Sodium 20 MG Tablet PO (22:01)
[2020-12-20] MEDS: Atorvastatin Calcium 80 MG Tablet PO (22:01)
[2020-12-20] MEDS: Doxycycline 100 MG CAPSULE PO (22:01)
[2020-12-20] MEDS: Pregabalin 50 MG Capsule 100 MG PO (22:06)
[2020-12-20 22:15] LABS: Bedside Glucose 162 mg/dL (70-110)
[2020-12-21 00:41] LABS: M R Staph aureus DNA By PCR Negative (Negative); Probe Check PASS; Specimen Processing Control PASS; Staph aureus DNA By PCR NEGATIVE (Negative)
[2020-12-21] MEDS: Acetaminophen 325 MG Tablet 650 MG PO ×2 (03:56→11:33)
[2020-12-21] MEDS: oxyCODONE 5 MG Tablet PO (03:57)
[2020-12-21 03:58] VITALS: BP 118/70; PULSE 73; RESP 18; TEMP 36.3; O2SAT 98
[2020-12-21 04:09] LABS: Mucous, Urine 0 SEEN /hpf (<or=2+); Red Blood Cells-Urine 0 SEEN /hpf (0-5)
[2020-12-21 04:23] LABS: Color, Urine Yellow (Yellow); Glucose, Dipstick 250 mg/dl (Normal); Ketone-Dipstick 5 mg/dl (Negative); Leukocyte Esterase-Dipstick Negative /ul (Negative); Nitrite-Dipstick Negative (Negative); Occult Blood-Urine Negative /ul (Negative); Protein-Dipstick 15 mg/dl (Negative); Specific Gravity, Urine 1.015 (1.002-1.030); Urine Bilirubin Dipstick Negative (Negative); Urine Clarity Clear (Clear); Urine Urobilinogen Normal (Normal)
[2020-12-21 04:31] LABS: Squamous Epithelial Cells - UA 10-25 SEEN /hpf (5-10)
[2020-12-21 04:32] LABS: Bacteria RARE /hpf (None Seen); White Blood Cells 0-5 SEEN /hpf (0-5)
[2020-12-21] MEDS: Levothyroxine 25 MCG TABLET PO (06:12)
[2020-12-21 07:01] VITALS: O2SAT 98
[2020-12-21 07:12] LABS: Absolute Lymphocyte Count 2.22 X10^3/uL (0.83-4.51); Absolute Neutrophil Count 3.7 X10^3/uL (2.0-7.7); Basophil# 0.04 X10^3/uL; Basophil% 0.6 % (0-1); Eosinophil# 0.16 X10^3/uL; Eosinophils% 2.3 % (0-5); Hematocrit 32.1 % (37-47); Hemoglobin 10.2 g/dL (12.0-15.0); Lymphocyte # 2.22 X10^3/ul (4.0); Lymphocyte % 32.4 % (19-41); Mean Corp Hgb Conc 31.8 g/dL (32-36); Mean Corpuscular Hgb 29.5 pg (27.0-32.0); Mean Corpuscular Volume 92.8 fL (81-99); Mean Platelet Vol. 9.5 fl (6.2-12.0); Monocyte% 10.2 % (0-10); NRBC Flagged by Analyzer 0 % (0-5); Neutrophil # 3.69 X10^3/uL (2.7-7.7); Neutrophil % 53.9 % (47-70); Platelet Count 162 K/mm3 (150-450); RBC Distribution Width CV 14.6 % (11.6-14.6); RBC Distribution Width SD 48.7 fl (35.1-43.9); Red Blood Count 3.46 M/mm3 (4.2-5.4); White Blood Count 6.9 K/mm3 (4.4-11.0)
[2020-12-21 07:53] LABS: ALB/GLOB Ratio 0.8 RATIO (0.9-2.4); AST(SGOT) 15 U/L (15-37); Alanine Aminotransfer ALT/SGPT 22 U/L (13-56); Albumin, Serum 2.6 g/dL (3.2-5.0); Alkaline Phosphatase 106 U/L (45-117); Anion Gap 4 (5-15); BUN 12 mg/dL (7-18); BUN/Creat Ratio 16.1 RATIO (10-20); Calcium,Total 8.1 mg/dL (8.5-10.1); Chloride 107 mmol/L (98-107); Creatinine, Serum 0.75 mg/dL (0.55-1.02); EST Glomerular Filtration Rate 88 mL/min (>60); Est Glom Filt Rate - Afr Amer 106 mL/min (>60); Estimated Creatinine Clearance 81.65 ml/min; Globulin 3.1 g/dL (2.2-4.2); Glucose 173 mg/dL (74-106); Protein, Total 5.7 g/dL (6.4-8.2); Sodium Level 138 mmol/L (136-145)
--- NOTE | 2020-12-21 08:29 | PN_ITS ---
Patient Problems: Active and Suspected Problems (Last Reviewed 12/15/20 @ 10:40 by Yudelka Bustos) Cellulitis of toe of left foot (Acute) Skin ulcer of left great toe with fat layer exposed (Acute) Diabetic foot ulcer (Acute) Osteomyelitis (Acute) Osteomyelitis of second toe of right foot (Suspected) Subjective: Patient seen and examined resting comfortably. Patient denies any new pedal complaints. Patient denies any nausea, fever, chills, chest pain, shortness of breath, cough, streaking, purulence, vomiting. Patient relates that her pain fever chills and nausea have improved vastly since being admitted to the hospital started on IV antibiotics. - Physical Exam Vitals/I&O's: Vital Signs Temp Pulse Resp BP Pulse Ox 97.3 F L 73 18 118/70 98 12/21/20 03:58 12/21/20 03:58 12/21/20 03:58 12/21/20 03:58 12/21/20 07:01 Oxygen Delivery Method Room Air Weight: 112.9 kg Body Mass Index (BMI) 41.4 Finger Stick Blood Glucose 159 Intake and Output for Last 24 Hours 12/19/20 12/20/20 12/21/20 23:59 23:59 23:59 Intake Total 710.00 / 1330.00 1090 / 1090 Output Total 400 / 400 Balance 310.00 / 930.00 1090 / 1090 General: Alert, Oriented x3 HEENT: Atraumatic Extremities: No clubbing, No cyanosis, Capillary Refill Less than 3 Seconds, No Calf Tenderness, Edema - Edema and erythema improved to left hallux, Peripheral Pulses Normal Skin: Ulcer/ Wound - Left plantar medial hallux ulceration. Decreased erythema and edema and pain to palpation compared to previous study. Wound is granular without any purulent drainage. Does not probe to bone. Musculoskeletal: Tenderness - Ulceration site improved Neurological: - - Decrease in epicritic sensation consistent with neuropathy Psych/Mental Status: Normal Affect, Appropriate Laboratory Results 12/20/20 12:55: WBC 8.7, RBC 3.68 L, Hgb 10.9 L, Hct 33.5 L, MCV 91.0, MCH 29.6, MCHC 32.5, RDW Std Deviation 47.0 H, RDW Coeff of [place] 14.3, Plt Count 181, MPV 9.5, Immature Gran % (Auto) 0.700, Neut % (Auto) 76.6 H, Lymph % (Auto) 15.4 L, [place] % (Auto) 5.9, Eos % (Auto) 0.9, Baso % (Auto) 0.5, Absolute Neuts (auto) 6.6, Absolute Lymphs (auto) 1.33, Nucleated RBC % 0, ESR 18 12/20/20 12:55: PT 13.4, INR 1.1, APTT 28.5 12/20/20 12:55: Sodium 134 L, Potassium 4.0, Chloride 104, Carbon Dioxide 25.0, Anion Gap 5, BUN 12, Creatinine 0.95, Estim Creat Clear Calc 64.46, Est GFR (MDRD) Af Amer 80, Est GFR (MDRD) Non-Af 66, BUN/Creatinine Ratio 12.6, Glucose 392 H, Calcium 8.5, Total Bilirubin 0.50, AST 9 L, ALT 22, Alkaline Phosphatase 135 H, C-React Prot Ext Range 8.35 H, Total Protein 6.3 L, Albumin 3.0 L, Globulin 3.3, Albumin/Globulin Ratio 0.9 12/20/20 12:55: Lactic Acid 1.6 12/20/20 12:55: Phosphorus 2.9, Magnesium 1.5 L, Prealbumin 18.4 L 12/20/20 16:45: POC Glucose 332 H 12/20/20 20:04: POC Glucose 80 12/20/20 20:15: S.aureus Protein A PCR NEGATIVE, MRSA (PCR) Negative 12/20/20 22:03: POC Glucose 162 H 12/21/20 03:25: Urine Color Yellow, Urine Clarity Clear, Urine pH 6.0, Ur Specific [place] 1.015, Urine Protein 15 H, Urine Glucose (UA) 250 H, Urine Ketones 5 H, Urine Occult Blood Negative, Urine Nitrite Negative, Urine Bilirubin Negative, Urine Urobilinogen Normal, Ur Leukocyte Esterase Negative, Urine RBC 0 SEEN, Urine WBC 0-5 SEEN, Ur Squamous Epith Cells 10-25 SEEN, Urine Bacteria RARE, Urine Mucus 0 SEEN 12/21/20 07:00: WBC 6.9, RBC 3.46 L, Hgb 10.2 L, Hct 32.1 L, MCV 92.8, MCH 29.5, MCHC 31.8 L, RDW Std Deviation 48.7 H, RDW Coeff of [place] 14.6, Plt Count 162, MPV 9.5, Immature Gran % (Auto) 0.600, Neut % (Auto) 53.9, Lymph % (Auto) 32.4, [place] % (Auto) 10.2 H, Eos % (Auto) 2.3, Baso % (Auto) 0.6, Absolute Neuts (auto) 3.7, Absolute Lymphs (auto) 2.22, Nucleated RBC % 0 12/21/20 07:00: Sodium 138, Potassium 4.0, Chloride 107, Carbon Dioxide 27.0, Anion Gap 4 L, BUN 12, Creatinine 0.75, Estim Creat Clear Calc 81.65, Est GFR (MDRD) Af Amer 106, Est GFR (MDRD) Non-Af 88, BUN/Creatinine Ratio 16.1, Glucose 173 H, Calcium 8.1 L, Total Bilirubin 0.40, AST 15, ALT 22, Alkaline Phosphatase 106, Total Protein 5.7 L, Albumin 2.6 L, Globulin 3.1, Albumin/Globulin Ratio 0.8 L 12/21/20 07:00: Hemoglobin A1c Pending Current Medications Acetaminophen (Acetaminophen 325 Mg Tablet) 650 mg PO Q6H PRN PRN PRN Reason: Pain Score 1-10/Temp > 100.7 F Last Admin: 12/21/20 03:56 Dose: 650 mg Documented by: Albuterol Sulfate (Albuterol 2.5 Mg/3 Ml Vial.Neb.) 2.5 mg INHALATION Q4H PRN PRN Reason: SOB &/OR WHEEZING Amlodipine Besylate (Amlodipine 10 Mg Tablet) 10 mg PO DAILY [facility] Atorvastatin Calcium (Atorvastatin Calcium 80 Mg Tablet) 80 mg PO QHS [facility] Last Admin: 12/20/20 22:01 Dose: 80 mg Documented by: Dextrose (Dextrose 50%-Water 25 Gm/50 Ml Disp.Syrin) 0 gm IV X1 PRN; Protocol PRN Reason: Hypoglycemia Doxycycline Monohydrate (Doxycycline 100 Mg Capsule) 100 mg PO BID [facility] Last Admin: 12/20/20 22:01 Dose: 100 mg Documented by: Duloxetine HCl (Duloxetine Hcl 60 Mg Capsule) 60 mg PO DAILY@1800 [facility] Last Admin: 12/20/20 19:14 Dose: 60 mg Documented by: Ergocalciferol (Ergocalciferol 50,000 Unit Capsule) 50,000 unit PO WE [facility] Glucagon (Glucagon 1 Mg/Ml Syringe) 1 mg IM .X1 PRN PRN Reason: Hypoglycemia Hydroxyzine Pamoate (Hydroxyzine Yarely 25 Mg Capsule) 100 mg PO QHS PRN PRN Reason: ANXIETY Piperacillin Sod/Tazobactam (Sod 3.375 gm/ Sodium Chloride) 50 mls @ 12.5 mls/hr IV Q8 [facility] Last Admin: 12/21/20 06:12 Dose: 12.5 mls/hr Documented by: Sodium Chloride () 250 mls @ 15 mls/hr IV .[id number] PRN PRN Reason: Saline Flush Insulin Glargine (Insulin Glargine 100 Units/Ml Pen) 90 units SC BREAKFAST [facility] Insulin Human Lispro (Insulin Lispro 100 Unit/Ml Insuln.Pen) 0 unit SC ACHS [facility]; Protocol Last Admin: 12/20/20 22:04 Dose: Not Given Documented by: Insulin Human Lispro (Insulin Lispro 100 Unit/Ml Insuln.Pen) 15 unit SC TIDAC [facility] Last Admin: 12/20/20 16:58 Dose: 15 u Documented by: Levothyroxine Sodium (Levothyroxine 25 Mcg Tablet) 25 mcg PO DAILY@0600 [facility] Last Admin: 12/21/20 06:12 Dose: 25 mcg Documented by: Losartan Potassium (Losartan Potassium 50 Mg Tablet) 50 mg PO DAILY [facility] Morphine Sulfate (Morphine 4 Mg/Ml Syringe) 4 mg IV Q3H PRN PRN PRN Reason: Pain Score 6-10 Last Admin: 12/20/20 17:06 Dose: 4 mg Documented by: Nicotine (Nicotine 21 Mg Patch) 21 mg TD DAILY [facility] Last Admin: 12/20/20 19:14 Dose: 21 mg Documented by: Nitroglycerin (Nitroglycerin (Inpatient Use) 0.4 Mg Tab.Subl) 0.4 mg SL Q5M PRN PRN Reason: CARDIAC/CHEST PAIN Nutritional Formula (Lactose Free) (Glucerna Shake 120 Ml Liquid) 120 ml PO TIDCM [facility] Last Admin: 12/20/20 19:14 Dose: 120 ml Documented by: Oxycodone HCl (Oxycodone 5 Mg Tablet) 5 mg PO Q4H PRN PRN PRN Reason: Pain Score 4-10 Last Admin: 12/21/20 03:57 Dose: 5 mg Documented by: Pantoprazole Sodium (Pantoprazole Sodium 20 Mg Tablet) 20 mg PO BID [facility] Last Admin: 12/20/20 22:01 Dose: 20 mg Documented by: Polyethylene Glycol (Polyethylene Glycol 3350 17 Gm Packet) 17 gm PO DAILY [facility] Pregabalin (Pregabalin 50 Mg Capsule) 100 mg PO BID [facility] Last Admin: 12/20/20 22:06 Dose: 100 mg Documented by: Prochlorperazine Edisylate (Prochlorperazine 10 Mg/2 Ml Vial) 5 mg IV Q4H PRN PRN PRN Reason: Breakthrough nausea/vomiting Sodium Chloride (0.9% Saline Lock 10 Ml Syringe) 10 - 40 ml IV UD PRN PRN Reason: SALINE FLUSH Last Admin: 12/20/20 17:58 Dose: 20 ml Documented by: Trazodone HCl (Trazodone 100 Mg Tablet) 100 mg PO QHS [facility] Last Admin: 12/20/20 22:01 Dose: Not Given Documented by: Medical Necessity - Tobacco Use Smoking Status: Current every day smoker Tobacco Use: Cigarettes Assessment/Plan All Active Problems (Last Reviewed 12/15/20 @ 10:40 by Yudelka Bustos) Cellulitis of toe of left foot (Acute) Osteomyelitis of toe of right foot (Resolved) Skin ulcer of left great toe with fat layer exposed (Acute) Diabetic foot ulcer (Acute) Osteomyelitis (Acute) SEUN (acute kidney injury) (Resolved) Presence of permanent central venous catheter (Resolved) Vascular catheter fitting or adjustment (Resolved) Left hallux ulceration Left foot cellulitis Possible deeper infection abscess versus osteomyelitis Diabetes with neuropathy History of osteomyelitis with amputation of right hallux Patient seen and examined. WBC 6.9, ESR 18, CRP 8.35 Noted improvement to the left hallux both with edema, erythema, pain to palpation MRI obtained 11/13/2020 demonstrated early osteomyelitic changes without abscess. MRI obtained 12/20/2020 demonstrated no osteomyelitis or abscess. Discussed these results with the patient. Discussed that given patient's history of recurrent cellulitis to the area with chronic ulceration that she may benefit from a stronger course of antibiotics possibly IV antibiotics. Will await ID recommendations. Patient has been on doxycycline since October with the reoccurrence of her left hallux infection. She has had significant improvement with just a days worth of IV antibiotics. Patient also has a history of kidney issues requiring dialysis which will play a part and antibiotic selection. Upon discussion with the patient she elected to continue trying to save the toe. She does not wish to undergo any amputation or surgery at this time. She wishes to pursue antibiotic treatment of her infection. Cultures were obtained follow results Continue antibiotics per infectious disease All questions were answered Please contact if any questions or concerns Haylee Guillen DPM [facility] [place] [phone]
[2020-12-21 08:47] LABS: Hemoglobin A1c 10.8 % (3.8-5.6)
[2020-12-21] MEDS: Insulin Lispro 100 UNIT/ML INSULN.PEN 15 UNIT SC ×3 (08:47→17:21)
[2020-12-21] MEDS: Insulin Lispro 100 UNIT/ML INSULN.PEN SC ×3 (08:48→21:46)
[2020-12-21] MEDS: Glucerna Shake 120 ML LIQUID PO (08:54)
[2020-12-21 08:55] VITALS: BP 146/83; PULSE 79; RESP 16; TEMP 36.7; O2SAT 98
--- NOTE | 2020-12-21 09:18 | NURSING ---
skin photo: left great toe
[2020-12-21] MEDS: Losartan Potassium 50 MG Tablet PO (09:19)
[2020-12-21] MEDS: Doxycycline 100 MG CAPSULE PO ×2 (09:19→21:46)
[2020-12-21] MEDS: Pantoprazole Sodium 20 MG Tablet PO ×2 (09:19→21:47)
--- NOTE | 2020-12-21 09:19 | NURSING ---
wound photo: left great toe
[2020-12-21] MEDS: amLODIPine 10 MG Tablet PO (09:21)
[2020-12-21] MEDS: Pregabalin 50 MG Capsule 100 MG PO ×2 (09:27→21:45)
[2020-12-21 09:31] LABS: Bedside Glucose 247 mg/dL (70-110)
--- NOTE | 2020-12-21 09:44 | PCM.HP.ID ---
Problem List (1) Cellulitis of toe of left foot Status: Acute Reason for Consult: toe infection Consulted by: Dr. Robertson History of Present Illness: The patient is a 50 year old F with DM, tobacco abuse, recurrent osteo, presented with acute onset L 1st toe pain, redness, swelling, yellow/bloody drainage. No clear inciting event, but she did hit her toe on the laundry basket. Has been on doxy since October for L 1st toe msse osteo, hospital course at that time complicated by SEUN with vanc requiring temporary HD. HD line has been removed. Had some chills yesterday. Sent to ED from wound center, admitted on po doxy and zosyn. Foot improved today. Full ROS performed and neg except as noted above. - Medical History Past Medical History (Chronic Problems): Chronic Problems (Last Reviewed 12/15/20 @ 10:40 by Yudelka Bustos) Non-pressure chronic ulcer of other part of left foot with fat layer exposed (Chronic) Meniere disease (Chronic) Chronic ulcer of right foot with fat layer exposed (Chronic) Type 2 diabetes mellitus with diabetic polyneuropathy (Chronic) Hammer toe of right foot (Chronic) Obesity (BMI 30-39.9) (Chronic) Vertigo (Chronic) Hyperlipidemia (Chronic) Fibromyalgia (Chronic) Depression with anxiety (Chronic) Allergies/Adverse Reactions: Allergies clindamycin Allergy (Verified 12/19/20 11:05) Hives erythromycin base [From E-Mycin] Allergy (Verified 12/19/20 11:05) Hives vancomycin Allergy (Verified 12/19/20 11:05) Hives Gadolinium-MRI Contrast Medium [CONTRAST] Adverse Reaction (Verified 12/20/20 12:25) NEEDS FOLLOW-UP Iodinated Contrast Media [CONTRASTS] Adverse Reaction (Verified 12/20/20 12:25) NEEDS FOLLOW-UP Home Medications: Ambulatory Orders Medication Instructions Recorded Albuterol Inhaler [Ventolin Hfa] 1 - 2 puff INHALATION Q6H PRN PRN 08/30/19 Atorvastatin Calcium [Lipitor] 80 mg PO DAILY 08/30/19 Dulaglutide [Trulicity] 0.75 mg SQ WE 08/30/19 Duloxetine HCl 60 mg PO DAILY@1800 03/21/20 Multivitamin with Minerals 1 tab PO DAILY 03/21/20 [Multiple Vitamin] Pregabalin [Lyrica] 100 mg PO BID 03/21/20 Ergocalciferol [Vitamin D] 50,000 unit PO WE 10/17/20 Insulin Degludec [Tresiba 100 unit SQ DAILY 10/17/20 Flextouch U-100] Levothyroxine [Synthroid] 25 mcg PO DAILY 11/11/20 Pantoprazole Sodium [Protonix] 20 mg PO BID 11/11/20 Doxycycline 100 mg PO BID #72 cap 11/17/20 Acetaminophen [Tylenol Arthritis] 1,300 mg PO DAILY PRN PRN 12/08/20 Biotin 5,000 mcg SL DAILY 12/08/20 Hydroxyzine Pamoate 100 mg PO QHS PRN 12/08/20 Losartan Potassium 50 mg PO DAILY 12/08/20 Amlodipine [Norvasc] 10 mg PO DAILY 12/20/20 Trazodone HCl 100 mg PO QHS 12/20/20 - Social History Tobacco Use: cigarettes Vital Signs Temp Pulse Resp BP Pulse Ox 98.0 F 79 16 146/83 H 98 12/21/20 08:55 12/21/20 08:55 12/21/20 08:55 12/21/20 08:55 12/21/20 08:55 Oxygen Delivery Method Room Air Weight: 112.9 kg Body Mass Index (BMI) 41.4 Finger Stick Blood Glucose 159 Laboratory Tests Past 24 Hrs 12/20/20 12/20/20 12/20/20 12:55 12:55 12:55 WBC 8.7 RBC 3.68 L Hgb 10.9 L Hct 33.5 L MCV 91.0 MCH 29.6 MCHC 32.5 RDW Std Deviation 47.0 H RDW Coeff of Bre[place] 14.3 Plt Count 181 MPV 9.5 Immature Gran % (Auto) 0.700 Neut % (Auto) 76.6 H Lymph % (Auto) 15.4 L [place] % (Auto) 5.9 Eos % (Auto) 0.9 Baso % (Auto) 0.5 Absolute Neuts (auto) 6.6 Absolute Lymphs (auto) 1.33 Nucleated RBC % 0 ESR 18 PT 13.4 INR 1.1 APTT 28.5 Sodium 134 L Potassium 4.0 Chloride 104 Carbon Dioxide 25.0 Anion Gap 5 BUN 12 Creatinine 0.95 Estim Creat Clear Calc 64.46 Est GFR (MDRD) Af Amer 80 Est GFR (MDRD) Non-Af 66 BUN/Creatinine Ratio 12.6 Glucose 392 H Hemoglobin A1c Lactic Acid Calcium 8.5 Phosphorus Magnesium Total Bilirubin 0.50 AST 9 L ALT 22 Alkaline Phosphatase 135 H C-React Prot Ext Range 8.35 H Total Protein 6.3 L Albumin 3.0 L Globulin 3.3 Albumin/Globulin Ratio 0.9 Prealbumin Urine Color Urine Clarity Urine pH Ur Specific [place] Urine Protein Urine Glucose (UA) Urine Ketones Urine Occult Blood Urine Nitrite Urine Bilirubin Urine Urobilinogen Ur Leukocyte Esterase Urine RBC Urine WBC Ur Squamous Epith Cells Urine Bacteria Urine Mucus S.aureus Protein A PCR MRSA (PCR) 12/20/20 12/20/20 12/20/20 12:55 12:55 20:15 WBC RBC Hgb Hct MCV MCH MCHC RDW Std Deviation RDW Coeff of [place] Plt Count MPV Immature Gran % (Auto) Neut % (Auto) Lymph % (Auto) [place]aines % (Auto) Eos % (Auto) Baso % (Auto) Absolute Neuts (auto) Absolute Lymphs (auto) Nucleated RBC % ESR PT INR APTT Sodium Potassium Chloride Carbon Dioxide Anion Gap BUN Creatinine Estim Creat Clear Calc Est GFR (MDRD) Af Amer Est GFR (MDRD) Non-Af BUN/Creatinine Ratio Glucose Hemoglobin A1c Lactic Acid 1.6 Calcium Phosphorus 2.9 Magnesium 1.5 L Total Bilirubin AST ALT Alkaline Phosphatase C-React Prot Ext Range Total Protein Albumin Globulin Albumin/Globulin Ratio Prealbumin 18.4 L Urine Color Urine Clarity Urine pH Ur Specific [place] Urine Protein Urine Glucose (UA) Urine Ketones Urine Occult Blood Urine Nitrite Urine Bilirubin Urine Urobilinogen Ur Leukocyte Esterase Urine RBC Urine WBC Ur Squamous Epith Cells Urine Bacteria Urine Mucus S.aureus Protein A PCR NEGATIVE MRSA (PCR) Negative 12/21/20 12/21/20 12/21/20 03:25 07:00 07:00 WBC 6.9 RBC 3.46 L Hgb 10.2 L Hct 32.1 L MCV 92.8 MCH 29.5 MCHC 31.8 L RDW Std Deviation 48.7 H RDW Coeff of Bre[place] 14.6 Plt Count 162 MPV 9.5 Immature Gran % (Auto) 0.600 Neut % (Auto) 53.9 Lymph % (Auto) 32.4 Haines % (Auto) 10.2 H Eos % (Auto) 2.3 Baso % (Auto) 0.6 Absolute Neuts (auto) 3.7 Absolute Lymphs (auto) 2.22 Nucleated RBC % 0 ESR PT INR APTT Sodium 138 Potassium 4.0 Chloride 107 Carbon Dioxide 27.0 Anion Gap 4 L BUN 12 Creatinine 0.75 Estim Creat Clear Calc 81.65 Est GFR (MDRD) Af Amer 106 Est GFR (MDRD) Non-Af 88 BUN/Creatinine Ratio 16.1 Glucose 173 H Hemoglobin A1c Lactic Acid Calcium 8.1 L Phosphorus Magnesium Total Bilirubin 0.40 AST 15 ALT 22 Alkaline Phosphatase 106 C-React Prot Ext Range Total Protein 5.7 L Albumin 2.6 L Globulin 3.1 Albumin/Globulin Ratio 0.8 L Prealbumin Urine Color Yellow Urine Clarity Clear Urine pH 6.0 Ur Specific [place] 1.015 Urine Protein 15 H Urine Glucose (UA) 250 H Urine Ketones 5 H Urine Occult Blood Negative Urine Nitrite Negative Urine Bilirubin Negative Urine Urobilinogen Normal Ur Leukocyte Esterase Negative Urine RBC 0 SEEN Urine WBC 0-5 SEEN Ur Squamous Epith Cells 10-25 SEEN Urine Bacteria RARE Urine Mucus 0 SEEN S.aureus Protein A PCR MRSA (PCR) 12/21/20 07:00 WBC RBC Hgb Hct MCV MCH MCHC RDW Std Deviation RDW Coeff of Bre[place] Plt Count MPV Immature Gran % (Auto) Neut % (Auto) Lymph % (Auto) [place]aines % (Auto) Eos % (Auto) Baso % (Auto) Absolute Neuts (auto) Absolute Lymphs (auto) Nucleated RBC % ESR PT INR APTT Sodium Potassium Chloride Carbon Dioxide Anion Gap BUN Creatinine Estim Creat Clear Calc Est GFR (MDRD) Af Amer Est GFR (MDRD) Non-Af BUN/Creatinine Ratio Glucose Hemoglobin A1c 10.8 H Lactic Acid Calcium Phosphorus Magnesium Total Bilirubin AST ALT Alkaline Phosphatase C-React Prot Ext Range Total Protein Albumin Globulin Albumin/Globulin Ratio Prealbumin Urine Color Urine Clarity Urine pH Ur Specific [place] Urine Protein Urine Glucose (UA) Urine Ketones Urine Occult Blood Urine Nitrite Urine Bilirubin Urine Urobilinogen Ur Leukocyte Esterase Urine RBC Urine WBC Ur Squamous Epith Cells Urine Bacteria Urine Mucus S.aureus Protein A PCR MRSA (PCR) - Other Studies Radiology: [] reviewed Other Studies: [] Route of nutrition/ use of supplements: [] Nutritional Intake: [] IV Site: [] Carrillo Catheter: [] - Physical Exam General: Alert, Oriented x3, Cooperative, No apparent distress HEENT: Atraumatic, PERRLA, EOMI Neck: Supple, No Nodes Lungs: Clear to auscultation, Normal air movement Cardiovascular: Regular rate, Regular Rhythm Abdomen: Soft, Non Tender, Non-Distended Extremities: No edema Skin: Ulcer/ Wound - toe wrapped, reviewed photos IV Site: Peripheral, without redness Musculoskeletal: No Tenderness to Palpation of Joints or Extremities Neurological: Cranial nerves II-XII grossly intact - Assessment/Plan Antibiotics: [] Assessment/Plan: [] Active and Suspected Problems (Last Reviewed 12/15/20 @ 10:40 by Yudelka Bustos) Cellulitis of toe of left foot (Acute) Skin ulcer of left great toe with fat layer exposed (Acute) Diabetic foot ulcer (Acute) Osteomyelitis (Acute) Osteomyelitis of second toe of right foot (Suspected) toe infection with DM and recent msse osteo - MRI now shows no osteo. Staph aureus pcr neg. Improving on po doxy and zosyn. Wound cx pending. Plan at this point will be for short course of abx for superficial infection. Will follow, thank you, d/w Dr. Guillen
--- NOTE | 2020-12-21 11:14 | CASEMGMT ---
CHUCK JACK Assessment: Face to Face with pt for initial transition planning/care coordination assessment. RN CM introduced self and role at [facility], pt voices understanding and consents to assessment. Pt is A/O x4 and answers all questions appropriately at this time. Pt lying in bed in no distress. Care providers, pharmacy, and demographics verified/updated. Admitting Dx: L Great Toe Abscess/Cellulitis PCP: Dr. Garcia Specialists: Dr. 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 Pt DPOA is Monserrat Crenshaw, her sister. LNOK: Sister Monserrat Crenshaw and mother Breanna Martínez Living Arrangements: Pt lives with her son in a single story apt with 8 steps to enter with rail. Pt denies concerns at home. Pt states she is I in ADL's. Transportation: Pt drives self. No concerns regarding transportation. DME/HHC/SNF: Pt has a working BGM. She states she has not used it in years. She is aware of how to use it, but chooses not to. Denies any DME in the home. Pt is aware that therapy recommended a fww. This CM provided pt with a list of local in network DME companies. Pt chose [employer]. Pt states she was in [facility] in the past. Pt sees Dr. Guillen at the [facility] one time a week. States she is I in dressing changes. Pt states she would be open to having HH SN if necessary, but states she doesn't need any therapy at home. Pt states no concerns with going home at time of dc. Pt states no further concerns/needs. CM to follow. Advised pt to ask CM if any further question/concerns/needs arise, voices understanding. Pt Goal: Home Plan: Home with family support, fu plans in place. Will follow for HHC needs.
[2020-12-21 12:50] LABS: Bedside Glucose 187 mg/dL (70-110)
--- NOTE | 2020-12-21 13:36 | PCM.PN.HOSP ---
Patient Problems: Active and Suspected Problems (Last Reviewed 12/15/20 @ 10:40 by Yudelka Bustos) Cellulitis of toe of left foot (Acute) Skin ulcer of left great toe with fat layer exposed (Acute) Diabetic foot ulcer (Acute) Osteomyelitis (Acute) Osteomyelitis of second toe of right foot (Suspected) Subjective: Patient seen and examined. She was admitted with a complaint of left great toe abscess and ulcer. She is currently on IV antibiotics. She has been managed for cellulitis of the left great toe. She had no complaints this morning. Pain was well controlled. Review of systems otherwise negative. Podiatry and ID are on board. Vitals/I&O's: Vital Signs Temp Pulse Resp BP Pulse Ox 98.0 F 79 16 146/83 H 98 12/21/20 08:55 12/21/20 08:55 12/21/20 08:55 12/21/20 08:55 12/21/20 08:55 Oxygen Delivery Method Room Air Weight: 248 lb 14.43 oz Body Mass Index (BMI) 41.4 Finger Stick Blood Glucose 159 Intake and Output for Last 24 Hours 12/19/20 12/20/20 12/21/20 23:59 23:59 23:59 Intake Total 710.00 / 1330.00 1940 / 1940 Output Total 400 / 400 300 / 300 Balance 310.00 / 930.00 1640 / 1640 General: Alert, Oriented x3, Cooperative, No apparent distress HEENT: Atraumatic, PERRLA, EOMI, Normocephalic Oral: Dry Mucosa Neck: Supple, No JVD, Negative Carotid Bruits Lungs: Clear to auscultation, Normal air movement, No rhonchi, No wheeze, No rales Cardiovascular: Regular rate, Regular Rhythm, Normal S1, Normal S2, No murmurs Abdomen: Bowel Sounds Present, Soft, Non Tender Extremities: No clubbing, No cyanosis, - - left great toe wrapped in bandage Skin: - Musculoskeletal: No Tenderness to Palpation of Joints or Extremities Lymphatic: No Cervical, Supraclavicular, or Inguinal Adenopathy Neurological: Cranial nerves II-XII grossly intact, Neuro grossly intact, Motor Exam 5/5 strength throughout Psych/Mental Status: Normal Affect, Appropriate, Alert and oriented to time, place, person, mood and affect Microbiology Past 72 Hours 12/20/20 Unknown Wound - Toe Gram Stain - Final Laboratory Results 12/20/20 12:55: Phosphorus 2.9, Magnesium 1.5 L, Prealbumin 18.4 L 12/20/20 16:45: POC Glucose 332 H 12/20/20 20:04: POC Glucose 80 12/20/20 20:15: S.aureus Protein A PCR NEGATIVE, MRSA (PCR) Negative 12/20/20 22:03: POC Glucose 162 H 12/21/20 03:25: Urine Color Yellow, Urine Clarity Clear, Urine pH 6.0, Ur Specific [place] 1.015, Urine Protein 15 H, Urine Glucose (UA) 250 H, Urine Ketones 5 H, Urine Occult Blood Negative, Urine Nitrite Negative, Urine Bilirubin Negative, Urine Urobilinogen Normal, Ur Leukocyte Esterase Negative, Urine RBC 0 SEEN, Urine WBC 0-5 SEEN, Ur Squamous Epith Cells 10-25 SEEN, Urine Bacteria RARE, Urine Mucus 0 SEEN 12/21/20 07:00: WBC 6.9, RBC 3.46 L, Hgb 10.2 L, Hct 32.1 L, MCV 92.8, MCH 29.5, MCHC 31.8 L, RDW Std Deviation 48.7 H, RDW Coeff of Brea 14.6, Plt Count 162, MPV 9.5, Immature Gran % (Auto) 0.600, Neut % (Auto) 53.9, Lymph % (Auto) 32.4, [place] % (Auto) 10.2 H, Eos % (Auto) 2.3, Baso % (Auto) 0.6, Absolute Neuts (auto) 3.7, Absolute Lymphs (auto) 2.22, Nucleated RBC % 0 12/21/20 07:00: Sodium 138, Potassium 4.0, Chloride 107, Carbon Dioxide 27.0, Anion Gap 4 L, BUN 12, Creatinine 0.75, Estim Creat Clear Calc 81.65, Est GFR (MDRD) Af Amer 106, Est GFR (MDRD) Non-Af 88, BUN/Creatinine Ratio 16.1, Glucose 173 H, Calcium 8.1 L, Total Bilirubin 0.40, AST 15, ALT 22, Alkaline Phosphatase 106, Total Protein 5.7 L, Albumin 2.6 L, Globulin 3.1, Albumin/Globulin Ratio 0.8 L 12/21/20 07:00: Hemoglobin A1c 10.8 H 12/21/20 08:46: POC Glucose 247 H 12/21/20 11:29: POC Glucose 187 H Diagnostic Data Foot X-Ray 12/20/20 13:27 IMPRESSION: Soft tissue swelling overlying the great toe Electronically Signed: Jaydon Villanueva MD at 13:45 EDT , Service support , Lower Extremity MRI 12/20/20 16:12 IMPRESSION: No acute osteomyelitis or abscess Soft tissue swelling/cellulitis Degenerative changes, as above, with stable metatarsal stress reactions Muscle atrophy/denervation Electronically Signed: Jd España DO at 8:05 EDT Tel , Service support , Current Medications Acetaminophen (Acetaminophen 325 Mg Tablet) 650 mg PO Q6H PRN PRN PRN Reason: Pain Score 1-10/Temp > 100.7 F Last Admin: 12/21/20 11:33 Dose: 650 mg Documented by: Albuterol Sulfate (Albuterol 2.5 Mg/3 Ml Vial.Neb.) 2.5 mg INHALATION Q4H PRN PRN Reason: SOB &/OR WHEEZING Amlodipine Besylate (Amlodipine 10 Mg Tablet) 10 mg PO DAILY [facility] Last Admin: 12/21/20 09:21 Dose: 10 mg Documented by: Atorvastatin Calcium (Atorvastatin Calcium 80 Mg Tablet) 80 mg PO QHS [facility] Last Admin: 12/20/20 22:01 Dose: 80 mg Documented by: Dextrose (Dextrose 50%-Water 25 Gm/50 Ml Disp.Syrin) 0 gm IV X1 PRN; Protocol PRN Reason: Hypoglycemia Doxycycline Monohydrate (Doxycycline 100 Mg Capsule) 100 mg PO BID [facility] Last Admin: 12/21/20 09:19 Dose: 100 mg Documented by: Duloxetine HCl (Duloxetine Hcl 60 Mg Capsule) 60 mg PO DAILY@1800 [facility] Last Admin: 12/20/20 19:14 Dose: 60 mg Documented by: Ergocalciferol (Ergocalciferol 50,000 Unit Capsule) 50,000 unit PO [facility] Glucagon (Glucagon 1 Mg/Ml Syringe) 1 mg IM .X1 PRN PRN Reason: Hypoglycemia Hydroxyzine Pamoate (Hydroxyzine Yarely 25 Mg Capsule) 100 mg PO QHS PRN PRN Reason: ANXIETY Piperacillin Sod/Tazobactam (Sod 3.375 gm/ Sodium Chloride) 50 mls @ 12.5 mls/hr IV Q8 [facility] Last Infusion: 12/21/20 10:12 Dose: Infused Documented by: Sodium Chloride () 250 mls @ 15 mls/hr IV .[id number] PRN PRN Reason: Saline Flush Insulin Glargine (Insulin Glargine 100 Units/Ml Pen) 90 units SC BREAKFAST [facility] Last Admin: 12/21/20 08:49 Dose: 90 units Documented by: Insulin Human Lispro (Insulin Lispro 100 Unit/Ml Insuln.Pen) 0 unit SC ACHS [facility]; Protocol Last Admin: 12/21/20 12:35 Dose: 2 u Documented by: Insulin Human Lispro (Insulin Lispro 100 Unit/Ml Insuln.Pen) 15 unit SC TIDAC [facility] Last Admin: 12/21/20 12:34 Dose: 15 u Documented by: Levothyroxine Sodium (Levothyroxine 25 Mcg Tablet) 25 mcg PO DAILY@0600 [facility] Last Admin: 12/21/20 06:12 Dose: 25 mcg Documented by: Losartan Potassium (Losartan Potassium 50 Mg Tablet) 50 mg PO DAILY [facility] Last Admin: 12/21/20 09:19 Dose: 50 mg Documented by: Morphine Sulfate (Morphine 4 Mg/Ml Syringe) 4 mg IV Q3H PRN PRN PRN Reason: Pain Score 6-10 Last Admin: 12/20/20 17:06 Dose: 4 mg Documented by: Nicotine (Nicotine 21 Mg Patch) 21 mg TD DAILY [facility] Last Admin: 12/21/20 09:20 Dose: 21 mg Documented by: Nitroglycerin (Nitroglycerin (Inpatient Use) 0.4 Mg Tab.Subl) 0.4 mg SL Q5M PRN PRN Reason: CARDIAC/CHEST PAIN Nutritional Formula (Lactose Free) (Glucerna Shake 120 Ml Liquid) 120 ml PO TIDCM [facility] Last Admin: 12/21/20 12:36 Dose: Not Given Documented by: Oxycodone HCl (Oxycodone 5 Mg Tablet) 5 mg PO Q4H PRN PRN PRN Reason: Pain Score 4-10 Last Admin: 12/21/20 03:57 Dose: 5 mg Documented by: Pantoprazole Sodium (Pantoprazole Sodium 20 Mg Tablet) 20 mg PO BID [facility] Last Admin: 12/21/20 09:19 Dose: 20 mg Documented by: Polyethylene Glycol (Polyethylene Glycol 3350 17 Gm Packet) 17 gm PO DAILY [facility] Last Admin: 12/21/20 09:20 Dose: Not Given Documented by: Pregabalin (Pregabalin 50 Mg Capsule) 100 mg PO BID [facility] Last Admin: 12/21/20 09:27 Dose: 100 mg Documented by: Prochlorperazine Edisylate (Prochlorperazine 10 Mg/2 Ml Vial) 5 mg IV Q4H PRN PRN PRN Reason: Breakthrough nausea/vomiting Sodium Chloride (0.9% Saline Lock 10 Ml Syringe) 10 - 40 ml IV UD PRN PRN Reason: SALINE FLUSH Last Admin: 12/20/20 17:58 Dose: 20 ml Documented by: Trazodone HCl (Trazodone 100 Mg Tablet) 100 mg PO QHS [facility] Last Admin: 12/20/20 22:01 Dose: Not Given Documented by: Medical Necessity - Tobacco Use Smoking Status: Current every day smoker Tobacco Use: Cigarettes Assessment/Plan All Active Problems (Last Reviewed 12/15/20 @ 10:40 by Yudelka Bustos) Cellulitis of toe of left foot (Acute) Osteomyelitis of toe of right foot (Resolved) Skin ulcer of left great toe with fat layer exposed (Acute) Diabetic foot ulcer (Acute) Osteomyelitis (Acute) SEUN (acute kidney injury) (Resolved) Presence of permanent central venous catheter (Resolved) Vascular catheter fitting or adjustment (Resolved) #Chronic ulcer of the left great toe with cellulitis podiatry on board on IV zosyn and doxycycline ID also consulted; MRI of the foot shows no acute osteomyelitis or abscess, and showed soft tissue swelling and cellulitis wound cultures pending #Type 2 diabetes mellitus with peripheral neuropathy On Tresiba 100 units daily. Also on dulaglutide 0.75 mg once weekly ISS. Accuchecks ACHS A1C is 10.8 #Hypertension: On amlodipine #Hypothyroidism: on synthroid #History of SEUN due to vancomycin and IV contrast CR now normal will monitor DVT prophylaxis: lovenox Inpatient E&M: [id number] [facility] L2
[2020-12-21 14:18] VITALS: BP 117/66; PULSE 80; RESP 18; TEMP 36.5; O2SAT 94
[2020-12-21] MEDS: DULoxetine Hcl 60 MG Capsule PO (17:20)
[2020-12-21 17:21] LABS: Bedside Glucose 141 mg/dL (70-110)
[2020-12-21] MEDS: hydrOXYzine PAM 25 MG Capsule 100 MG PO (18:55)
[2020-12-21] MEDS: traZODone 100 MG Tablet PO (19:00)
[2020-12-21 19:02] VITALS: BP 134/75; PULSE 85; RESP 18; TEMP 36.6; O2SAT 95
[2020-12-21] MEDS: Atorvastatin Calcium 80 MG Tablet PO (21:46)
[2020-12-21 21:50] VITALS: BP 103/61; PULSE 83; RESP 16; TEMP 36.4; O2SAT 96
[2020-12-21 21:55] LABS: Bedside Glucose 238 mg/dL (70-110)
[2020-12-22 04:06] VITALS: BP 95/63; PULSE 70; RESP 18; TEMP 36.6; O2SAT 96
[2020-12-22] MEDS: Levothyroxine 25 MCG TABLET PO (06:15)
[2020-12-22 07:15] VITALS: BP 109/55; PULSE 79; RESP 16; TEMP 36.5; O2SAT 94
--- NOTE | 2020-12-22 07:56 | PCM.PROGNOTE ---
Patient Problems: Active and Suspected Problems (Last Reviewed 12/15/20 @ 10:40 by Yudelka Bustos) Cellulitis of toe of left foot (Acute) Skin ulcer of left great toe with fat layer exposed (Acute) Diabetic foot ulcer (Acute) Osteomyelitis (Acute) Osteomyelitis of second toe of right foot (Suspected) Subjective: Patient seen and examined resting comfortably. Patient denies any new pedal complaints. Patient denies any nausea, fever, chills, chest pain, shortness of breath, cough, streaking, purulence, vomiting. She relates some neuropathy pain bilateral feet - Physical Exam Vitals/I&O's: Vital Signs Temp Pulse Resp BP Pulse Ox 97.7 F L 79 16 109/55 L 94 12/22/20 07:15 12/22/20 07:15 12/22/20 07:15 12/22/20 07:15 12/22/20 07:15 Oxygen Delivery Method Room Air Weight: 114.3 kg Body Mass Index (BMI) 41.4 Finger Stick Blood Glucose 159 Intake and Output for Last 24 Hours 12/20/20 12/21/20 12/22/20 23:59 23:59 23:59 Intake Total 710.00 / 1330.00 2440 / 2690 300 / 300 Output Total 400 / 400 300 / 300 Balance 310.00 / 930.00 2140 / 2390 300 / 300 General: Alert, Oriented x3 HEENT: Atraumatic Abdomen: Obese Skin: Ulcer/ Wound - Left medial hallux. Less erythema and edema. No pain to palpation. Overall generalized improvement. Musculoskeletal: No Tenderness to Palpation of Joints or Extremities Neurological: - - Decrease in epicritic sensation consistent with neuropathy Psych/Mental Status: Normal Affect, Appropriate Microbiology Past 72 Hours 12/20/20 Unknown Wound - Toe Gram Stain - Final Laboratory Results 12/21/20 07:00: Hemoglobin A1c 10.8 H 12/21/20 08:46: POC Glucose 247 H 12/21/20 11:29: POC Glucose 187 H 12/21/20 16:52: POC Glucose 141 H 12/21/20 21:45: POC Glucose 238 H Current Medications Acetaminophen (Acetaminophen 325 Mg Tablet) 650 mg PO Q6H PRN PRN PRN Reason: Pain Score 1-10/Temp > 100.7 F Last Admin: 12/21/20 11:33 Dose: 650 mg Documented by: Albuterol Sulfate (Albuterol 2.5 Mg/3 Ml Vial.Neb.) 2.5 mg INHALATION Q4H PRN PRN Reason: SOB &/OR WHEEZING Amlodipine Besylate (Amlodipine 10 Mg Tablet) 10 mg PO DAILY [facility] Last Admin: 12/21/20 09:21 Dose: 10 mg Documented by: Atorvastatin Calcium (Atorvastatin Calcium 80 Mg Tablet) 80 mg PO QHS [facility] Last Admin: 12/21/20 21:46 Dose: 80 mg Documented by: Dextrose (Dextrose 50%-Water 25 Gm/50 Ml Disp.Syrin) 0 gm IV X1 PRN; Protocol PRN Reason: Hypoglycemia Doxycycline Monohydrate (Doxycycline 100 Mg Capsule) 100 mg PO BID [facility] Last Admin: 12/21/20 21:46 Dose: 100 mg Documented by: Duloxetine HCl (Duloxetine Hcl 60 Mg Capsule) 60 mg PO DAILY@1800 [facility] Last Admin: 12/21/20 17:20 Dose: 60 mg Documented by: Ergocalciferol (Ergocalciferol 50,000 Unit Capsule) 50,000 unit PO [facility] Glucagon (Glucagon 1 Mg/Ml Syringe) 1 mg IM .X1 PRN PRN Reason: Hypoglycemia Hydroxyzine Pamoate (Hydroxyzine Yarely 25 Mg Capsule) 100 mg PO QHS PRN PRN Reason: ANXIETY Last Admin: 12/21/20 18:55 Dose: 100 mg Documented by: Piperacillin Sod/Tazobactam (Sod 3.375 gm/ Sodium Chloride) 50 mls @ 12.5 mls/hr IV Q8 [facility] Last Admin: 12/22/20 06:17 Dose: 12.5 mls/hr Documented by: Sodium Chloride () 250 mls @ 15 mls/hr IV .[id number] PRN PRN Reason: Saline Flush Insulin Glargine (Insulin Glargine 100 Units/Ml Pen) 90 units SC BREAKFAST [facility] Last Admin: 12/21/20 08:49 Dose: 90 units Documented by: Insulin Human Lispro (Insulin Lispro 100 Unit/Ml Insuln.Pen) 0 unit SC ACHS [facility]; Protocol Last Admin: 12/21/20 21:46 Dose: 4 u Documented by: Insulin Human Lispro (Insulin Lispro 100 Unit/Ml Insuln.Pen) 15 unit SC TIDAC [facility] Last Admin: 12/21/20 17:21 Dose: 15 u Documented by: Levothyroxine Sodium (Levothyroxine 25 Mcg Tablet) 25 mcg PO DAILY@0600 [facility] Last Admin: 12/22/20 06:15 Dose: 25 mcg Documented by: Losartan Potassium (Losartan Potassium 50 Mg Tablet) 50 mg PO DAILY [facility] Last Admin: 12/21/20 09:19 Dose: 50 mg Documented by: Morphine Sulfate (Morphine 4 Mg/Ml Syringe) 4 mg IV Q3H PRN PRN PRN Reason: Pain Score 6-10 Last Admin: 12/20/20 17:06 Dose: 4 mg Documented by: Nicotine (Nicotine 21 Mg Patch) 21 mg TD DAILY [facility] Last Admin: 12/21/20 09:20 Dose: 21 mg Documented by: Nitroglycerin (Nitroglycerin (Inpatient Use) 0.4 Mg Tab.Subl) 0.4 mg SL Q5M PRN PRN Reason: CARDIAC/CHEST PAIN Nutritional Formula (Lactose Free) (Glucerna Shake 120 Ml Liquid) 120 ml PO TIDCM [facility] Last Admin: 12/21/20 17:20 Dose: Not Given Documented by: Oxycodone HCl (Oxycodone 5 Mg Tablet) 5 mg PO Q4H PRN PRN PRN Reason: Pain Score 4-10 Last Admin: 12/21/20 03:57 Dose: 5 mg Documented by: Pantoprazole Sodium (Pantoprazole Sodium 20 Mg Tablet) 20 mg PO BID [facility] Last Admin: 12/21/20 21:47 Dose: 20 mg Documented by: Polyethylene Glycol (Polyethylene Glycol 3350 17 Gm Packet) 17 gm PO DAILY [facility] Last Admin: 12/21/20 09:20 Dose: Not Given Documented by: Pregabalin (Pregabalin 50 Mg Capsule) 100 mg PO BID [facility] Last Admin: 12/21/20 21:45 Dose: 100 mg Documented by: Prochlorperazine Edisylate (Prochlorperazine 10 Mg/2 Ml Vial) 5 mg IV Q4H PRN PRN PRN Reason: Breakthrough nausea/vomiting Sodium Chloride (0.9% Saline Lock 10 Ml Syringe) 10 - 40 ml IV UD PRN PRN Reason: SALINE FLUSH Last Admin: 12/20/20 17:58 Dose: 20 ml Documented by: Trazodone HCl (Trazodone 100 Mg Tablet) 100 mg PO QHS [facility] Last Admin: 12/21/20 19:00 Dose: 100 mg Documented by: Medical Necessity - Tobacco Use Smoking Status: Current every day smoker Tobacco Use: Cigarettes Assessment/Plan All Active Problems (Last Reviewed 12/15/20 @ 10:40 by Yudelka Bustos) Cellulitis of toe of left foot (Acute) Osteomyelitis of toe of right foot (Resolved) Skin ulcer of left great toe with fat layer exposed (Acute) Diabetic foot ulcer (Acute) Osteomyelitis (Acute) SEUN (acute kidney injury) (Resolved) Presence of permanent central venous catheter (Resolved) Vascular catheter fitting or adjustment (Resolved) Left hallux ulceration Left foot cellulitis Possible deeper infection abscess versus osteomyelitis Diabetes with neuropathy History of osteomyelitis with amputation of right hallux Patient seen and examined. WBC 6.9, ESR 18, CRP 8.35 Noted improvement to the left hallux both with edema, erythema, pain to palpation MRI obtained 11/13/2020 demonstrated early osteomyelitic changes without abscess. MRI obtained 12/20/2020 demonstrated no osteomyelitis or abscess. Discussed these results with the patient. Discussed that given patient's history of recurrent cellulitis to the area with chronic ulceration that she may benefit from a stronger course of antibiotics possibly IV antibiotics. Will await ID recommendations. Patient has been on doxycycline since October with the reoccurrence of her left hallux infection. She has had significant improvement with just a days worth of IV antibiotics. Patient also has a history of kidney issues requiring dialysis which will play a part and antibiotic selection. Upon discussion with the patient she elected to continue trying to save the toe. She does not wish to undergo any amputation or surgery at this time. She wishes to pursue antibiotic treatment of her infection. Cultures were obtained follow results so far growing strept group B Continue antibiotics per infectious disease All questions were answered Please contact if any questions or concerns Upon DC patient to follow up at [facility]. She is already scheduled for Friday appointment. To continue silver dressing. Abx per ID recs. Haylee Guillen DPM [facility] [phone] thank you
[2020-12-22 08:31] VITALS: PULSE 74; RESP 16; O2SAT 94
[2020-12-22 08:33] LABS: Absolute Neutrophil Count 4.6 X10^3/uL (2.0-7.7); Basophil# 0.06 X10^3/uL; Basophil% 0.8 % (0-1); Eosinophil# 0.17 X10^3/uL; Eosinophils% 2.2 % (0-5); Hematocrit 35.2 % (37-47); Hemoglobin 11.2 g/dL (12.0-15.0); Lymphocyte % 28.8 % (19-41); Mean Corp Hgb Conc 31.8 g/dL (32-36); Mean Corpuscular Hgb 29.4 pg (27.0-32.0); Mean Corpuscular Volume 92.4 fL (81-99); Mean Platelet Vol. 9.6 fl (6.2-12.0); Monocyte# 0.56 X10^3/uL; Monocyte% 7.3 % (0-10); NRBC Flagged by Analyzer 0 % (0-5); Neutrophil # 4.62 X10^3/uL (2.7-7.7); Neutrophil % 60.4 % (47-70); Platelet Count 211 K/mm3 (150-450); RBC Distribution Width CV 14.5 % (11.6-14.6); Red Blood Count 3.81 M/mm3 (4.2-5.4); White Blood Count 7.7 K/mm3 (4.4-11.0)
[2020-12-22] MEDS: Insulin Lispro 100 UNIT/ML INSULN.PEN 15 UNIT SC ×2 (08:45→12:40)
[2020-12-22] MEDS: Doxycycline 100 MG CAPSULE PO (08:47)
[2020-12-22] MEDS: Losartan Potassium 50 MG Tablet PO (08:47)
[2020-12-22] MEDS: Pantoprazole Sodium 20 MG Tablet PO (08:47)
[2020-12-22] MEDS: amLODIPine 10 MG Tablet PO (08:48)
[2020-12-22 08:50] LABS: Anion Gap 4 (5-15); BUN 21 mg/dL (7-18); BUN/Creat Ratio 29.3 RATIO (10-20); Calcium,Total 9.1 mg/dL (8.5-10.1); Chloride 107 mmol/L (98-107); Creatinine, Serum 0.72 mg/dL (0.55-1.02); EST Glomerular Filtration Rate 92 mL/min (>60); Est Glom Filt Rate - Afr Amer 111 mL/min (>60); Estimated Creatinine Clearance 85.05 ml/min; Glucose 135 mg/dL (74-106); Potassium 3.9 mmol/L (3.5-5.1); Sodium Level 138 mmol/L (136-145)
[2020-12-22] MEDS: Glucerna Shake 120 ML LIQUID PO (08:52)
[2020-12-22] MEDS: Pregabalin 50 MG Capsule 100 MG PO (08:52)
[2020-12-22 09:05] LABS: Bedside Glucose 143 mg/dL (70-110)
--- NOTE | 2020-12-22 10:06 | CASEMGMT ---
Pt screened with [facility] Palliative Care Tool. Pt did not meet criteria.
[2020-12-22 11:42] VITALS: BP 152/83; PULSE 86; RESP 12; TEMP 36.6; O2SAT 96
--- NOTE | 2020-12-22 12:18 | PN.ID_ITS ---
Patient Problems: Active and Suspected Problems (Last Reviewed 12/15/20 @ 10:40 by Yudelka Bustos) Cellulitis of toe of left foot (Acute) Skin ulcer of left great toe with fat layer exposed (Acute) Diabetic foot ulcer (Acute) Osteomyelitis (Acute) Osteomyelitis of second toe of right foot (Suspected) Subjective: Feeling better, toe improved, no fever, no n/v/d - Physical Exam Vitals/I&O's: Vital Signs Temp Pulse Resp BP Pulse Ox 97.8 F 86 12 152/83 H 96 12/22/20 11:42 12/22/20 11:42 12/22/20 11:42 12/22/20 11:42 12/22/20 11:42 Oxygen Delivery Method Room Air Weight: 114.3 kg Body Mass Index (BMI) 41.4 Finger Stick Blood Glucose 159 Intake and Output for Last 24 Hours 12/20/20 12/21/20 12/22/20 23:59 23:59 23:59 Intake Total 710.00 / 1330.00 2440 / 2690 300 / 300 Output Total 400 / 400 300 / 300 Balance 310.00 / 930.00 2140 / 2390 300 / 300 General: Alert, Cooperative, No apparent distress Lungs: Clear to auscultation, Normal air movement Cardiovascular: Regular rate, Regular Rhythm Abdomen: Soft, Non Tender, Non-Distended Skin: Ulcer/ Wound - toe wrapped Microbiology Past 72 Hours 12/20/20 Unknown Wound - Toe Gram Stain - Final 12/20/20 Unknown Wound - Toe Wound Culture - Preliminary Streptococcus agalactiae (B) Coag Negative Staph Laboratory Results 12/21/20 11:29: POC Glucose 187 H 12/21/20 16:52: POC Glucose 141 H 12/21/20 21:45: POC Glucose 238 H 12/22/20 08:20: WBC 7.7, RBC 3.81 L, Hgb 11.2 L, Hct 35.2 L, MCV 92.4, MCH 29.4, MCHC 31.8 L, RDW Std Deviation 49.0 H, RDW Coeff of Brea 14.5, Plt Count 211, MPV 9.6, Immature Gran % (Auto) 0.500, Neut % (Auto) 60.4, Lymph % (Auto) 28.8, Dunn % (Auto) 7.3, Eos % (Auto) 2.2, Baso % (Auto) 0.8, Absolute Neuts (auto) 4.6, Absolute Lymphs (auto) 2.20, Nucleated RBC % 0 12/22/20 08:20: Sodium 138, Potassium 3.9, Chloride 107, Carbon Dioxide 27.0, Anion Gap 4 L, BUN 21 H, Creatinine 0.72, Estim Creat Clear Calc 85.05, Est GFR (MDRD) Af Amer 111, Est GFR (MDRD) Non-Af 92, BUN/Creatinine Ratio 29.3 H, Glucose 135 H, Calcium 9.1 12/22/20 08:41: POC Glucose 143 H Current Medications Acetaminophen (Acetaminophen 325 Mg Tablet) 650 mg PO Q6H PRN PRN PRN Reason: Pain Score 1-10/Temp > 100.7 F Last Admin: 12/21/20 11:33 Dose: 650 mg Documented by: Albuterol Sulfate (Albuterol 2.5 Mg/3 Ml Vial.Neb.) 2.5 mg INHALATION Q4H PRN PRN Reason: SOB &/OR WHEEZING Amlodipine Besylate (Amlodipine 10 Mg Tablet) 10 mg PO DAILY [facility] Last Admin: 12/22/20 08:48 Dose: 10 mg Documented by: Atorvastatin Calcium (Atorvastatin Calcium 80 Mg Tablet) 80 mg PO QHS [facility] Last Admin: 12/21/20 21:46 Dose: 80 mg Documented by: Dextrose (Dextrose 50%-Water 25 Gm/50 Ml Disp.Syrin) 0 gm IV X1 PRN; Protocol PRN Reason: Hypoglycemia Doxycycline Monohydrate (Doxycycline 100 Mg Capsule) 100 mg PO BID [facility] Last Admin: 12/22/20 08:47 Dose: 100 mg Documented by: Duloxetine HCl (Duloxetine Hcl 60 Mg Capsule) 60 mg PO DAILY@1800 [facility] Last Admin: 12/21/20 17:20 Dose: 60 mg Documented by: Ergocalciferol (Ergocalciferol 50,000 Unit Capsule) 50,000 unit PO [facility] Glucagon (Glucagon 1 Mg/Ml Syringe) 1 mg IM .X1 PRN PRN Reason: Hypoglycemia Hydroxyzine Pamoate (Hydroxyzine Yarely 25 Mg Capsule) 100 mg PO QHS PRN PRN Reason: ANXIETY Last Admin: 12/21/20 18:55 Dose: 100 mg Documented by: Piperacillin Sod/Tazobactam (Sod 3.375 gm/ Sodium Chloride) 50 mls @ 12.5 mls/hr IV Q8 [facility] Last Admin: 12/22/20 06:17 Dose: 12.5 mls/hr Documented by: Sodium Chloride () 250 mls @ 15 mls/hr IV .[id number] PRN PRN Reason: Saline Flush Insulin Glargine (Insulin Glargine 100 Units/Ml Pen) 90 units SC BREAKFAST [facility] Last Admin: 12/22/20 08:43 Dose: 90 units Documented by: Insulin Human Lispro (Insulin Lispro 100 Unit/Ml Insuln.Pen) 0 unit SC ACHS [facility]; Protocol Last Admin: 12/22/20 08:44 Dose: Not Given Documented by: Insulin Human Lispro (Insulin Lispro 100 Unit/Ml Insuln.Pen) 15 unit SC TIDAC [facility] Last Admin: 12/22/20 08:45 Dose: 15 u Documented by: Levothyroxine Sodium (Levothyroxine 25 Mcg Tablet) 25 mcg PO DAILY@0600 [facility] Last Admin: 12/22/20 06:15 Dose: 25 mcg Documented by: Losartan Potassium (Losartan Potassium 50 Mg Tablet) 50 mg PO DAILY [facility] Last Admin: 12/22/20 08:47 Dose: 50 mg Documented by: Morphine Sulfate (Morphine 4 Mg/Ml Syringe) 4 mg IV Q3H PRN PRN PRN Reason: Pain Score 6-10 Last Admin: 12/20/20 17:06 Dose: 4 mg Documented by: Nicotine (Nicotine 21 Mg Patch) 21 mg TD DAILY [facility] Last Admin: 12/22/20 08:46 Dose: 21 mg Documented by: Nitroglycerin (Nitroglycerin (Inpatient Use) 0.4 Mg Tab.Subl) 0.4 mg SL Q5M PRN PRN Reason: CARDIAC/CHEST PAIN Nutritional Formula (Lactose Free) (Glucerna Shake 120 Ml Liquid) 120 ml PO TIDCM [facility] Last Admin: 12/22/20 08:52 Dose: 120 ml Documented by: Oxycodone HCl (Oxycodone 5 Mg Tablet) 5 mg PO Q4H PRN PRN PRN Reason: Pain Score 4-10 Last Admin: 12/21/20 03:57 Dose: 5 mg Documented by: Pantoprazole Sodium (Pantoprazole Sodium 20 Mg Tablet) 20 mg PO BID [facility] Last Admin: 12/22/20 08:47 Dose: 20 mg Documented by: Polyethylene Glycol (Polyethylene Glycol 3350 17 Gm Packet) 17 gm PO DAILY [facility] Last Admin: 12/22/20 08:53 Dose: Not Given Documented by: Pregabalin (Pregabalin 50 Mg Capsule) 100 mg PO BID [facility] Last Admin: 12/22/20 08:52 Dose: 100 mg Documented by: Prochlorperazine Edisylate (Prochlorperazine 10 Mg/2 Ml Vial) 5 mg IV Q4H PRN PRN PRN Reason: Breakthrough nausea/vomiting Sodium Chloride (0.9% Saline Lock 10 Ml Syringe) 10 - 40 ml IV UD PRN PRN Reason: SALINE FLUSH Last Admin: 12/20/20 17:58 Dose: 20 ml Documented by: Trazodone HCl (Trazodone 100 Mg Tablet) 100 mg PO QHS [facility] Last Admin: 12/21/20 19:00 Dose: 100 mg Documented by: Medical Necessity - Tobacco Use Smoking Status: Current every day smoker Tobacco Use: Cigarettes Route of nutrition/ use of supplements: [] Nutritional Intake: [] IV Site: [] Carrillo Catheter: [] - Assessment/Plan Antibiotics: [] Assessment/Plan: [] Active and Suspected Problems (Last Reviewed 12/15/20 @ 10:40 by Yudelka Bustos) Cellulitis of toe of left foot (Acute) Skin ulcer of left great toe with fat layer exposed (Acute) Diabetic foot ulcer (Acute) Osteomyelitis (Acute) Osteomyelitis of second toe of right foot (Suspected) toe infection with DM and recent msse osteo - MRI now shows no osteo. Staph aureus pcr neg. Improving on po doxy and zosyn. Wound cx with GBS and 2nd cx with rare GBS and CoNS. Ok for d/c home off of doxy, with 7 days of keflex. Will follow as needed, d/w showcase maker
[2020-12-22] MEDS: Insulin Lispro 100 UNIT/ML INSULN.PEN SC (12:40)
[2020-12-22 12:56] LABS: Bedside Glucose 213 mg/dL (70-110)
--- NOTE | 2020-12-22 14:07 | PCM.DC ---
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) Type 2 diabetes mellitus with diabetic polyneuropathy (Chronic) Hammer toe of right foot (Chronic) Obesity (BMI 30-39.9) (Chronic) Vertigo (Chronic) Hyperlipidemia (Chronic) Fibromyalgia (Chronic) Depression with anxiety (Chronic) You will use the following diet at home:: Calorie/Carbohydrate Controlled (specify 1200, 1400, etc) - 1800 calorie diet Your food should be the consistency of: Regular Your liquids should be the consistency of: Regular/Thin Discharge Activity: Return to Normal Activity Weight Bearing Status: Weight bearing as tolerated Call your doctor if your incision/area has: Increased Pain/ Swelling, Increased Redness, Foul Smelling Discharge, Swelling at the incision site Call your doctor if you observe: Fever of 101 or Higher, Uncontrolled pain Instructions: ED Cellulitis Allergies/Adverse Reactions: Allergies clindamycin Allergy (Verified 12/19/20 11:05) Hives erythromycin base [From E-Mycin] Allergy (Verified 12/19/20 11:05) Hives vancomycin Allergy (Verified 12/19/20 11:05) Hives Gadolinium-MRI Contrast Medium [CONTRAST] Adverse Reaction (Verified 12/20/20 12:25) NEEDS FOLLOW-UP Iodinated Contrast Media [CONTRASTS] Adverse Reaction (Verified 12/20/20 12:25) NEEDS FOLLOW-UP Medications to take at Discharge Albuterol Inhaler [Ventolin Hfa] 1 - 2 puff INHALATION Q6H PRN PRN 08/30/19 Atorvastatin Calcium [Lipitor] 80 mg PO DAILY 08/30/19 Dulaglutide [Trulicity] 0.75 mg SQ WE 08/30/19 Duloxetine HCl 60 mg PO DAILY@1800 03/21/20 Multivitamin with Minerals [Multiple Vitamin] 1 tab PO DAILY 03/21/20 Pregabalin [Lyrica] 100 mg PO BID 03/21/20 Ergocalciferol [Vitamin D] 50,000 unit PO WE 10/17/20 Insulin Degludec [Tresiba Flextouch U-100] 100 unit SQ DAILY 10/17/20 Levothyroxine [Synthroid] 25 mcg PO DAILY 11/11/20 Pantoprazole Sodium [Protonix] 20 mg PO BID 11/11/20 Acetaminophen [Tylenol Arthritis] 1,300 mg PO DAILY PRN PRN 12/08/20 Biotin 5,000 mcg SL DAILY 12/08/20 Hydroxyzine Pamoate 100 mg PO QHS PRN 12/08/20 Losartan Potassium 50 mg PO DAILY 12/08/20 Amlodipine [Norvasc] 10 mg PO DAILY 12/20/20 Trazodone HCl 100 mg PO QHS 12/20/20 Cephalexin [Keflex] 500 mg PO Q8 #20 capsule 12/22/20 The following prescriptions were given: Cephalexin [Keflex] 500 mg PO Q8 #20 capsule Transmission Status: [facility] Primary Care Physician: Shirley Garcia MD [Primary Care Provider] - Please follow up with your Primary Care Physician in: 1-2 weeks Test Results: Test results from this visit will be discussed in further detail at your follow-up appointment, if applicable. Please Follow Up With: Haylee Guillen DPM When: at the wound care clinic next Friday as scheduled. Proposed Discharge Date: 12/22/20
--- NOTE | 2020-12-22 14:14 | PCM.DC.SUM ---
Discharge Date and Diagnosis - Problem List Patient Problems: Active and Suspected Problems (Last Reviewed 12/15/20 @ 10:40 by Yudelka Bustos) Cellulitis of toe of left foot (Acute) Skin ulcer of left great toe with fat layer exposed (Acute) Diabetic foot ulcer (Acute) Osteomyelitis (Acute) Osteomyelitis of second toe of right foot (Suspected) Date of Admission: 12/20/20 Date of Discharge: 12/22/20 - Primary Discharge Diagnosis Acute Problems: Active Problems (Last Reviewed 12/15/20 @ 10:40 by Yudelka Bustos) Cellulitis of toe of left foot (Acute) Skin ulcer of left great toe with fat layer exposed (Acute) Diabetic foot ulcer (Acute) Osteomyelitis (Acute) Suspected Problems: Suspected Problems (Last Reviewed 12/15/20 @ 10:40 by Yudelka Bustos) Osteomyelitis of second toe of right foot (Suspected) - Secondary Discharge Diagnosis Chronic Problems: Chronic Problems (Last Reviewed 12/15/20 @ 10:40 by Yudelka Bustos) Non-pressure chronic ulcer of other part of left foot with fat layer exposed (Chronic) Meniere disease (Chronic) Chronic ulcer of right foot with fat layer exposed (Chronic) Type 2 diabetes mellitus with diabetic polyneuropathy (Chronic) Hammer toe of right foot (Chronic) Obesity (BMI 30-39.9) (Chronic) Vertigo (Chronic) Hyperlipidemia (Chronic) Fibromyalgia (Chronic) Depression with anxiety (Chronic) Hospital Course and Treatment Imaging Results: Diagnostic Data Foot X-Ray 12/20/20 13:27 IMPRESSION: Soft tissue swelling overlying the great toe Electronically Signed: Jaydon Villanueva MD at 13:45 EDT , Service support , Lower Extremity MRI 12/20/20 16:12 IMPRESSION: No acute osteomyelitis or abscess Soft tissue swelling/cellulitis Degenerative changes, as above, with stable metatarsal stress reactions Muscle atrophy/denervation Electronically Signed: Jd España DO at 8:05 EDT Tel , Service support , podiatry- Dr Guillen Infectious Diseases- Dr Lorenzo Operations: - - right 2nd digit amputation 03/22/20 Procedures: None Summary of Care Provided: The patient is a 50 year old F with a past medical history as outlined including left great toe osteomyelitis for which she was admitted via the ER in October 2020, type 2 diabetes mellitus, hyperlipidemia and chronic right foot ulcer. She was admitted through the ED on 12/20/2020 after being sent there from the wound care center as her left great toe infection was getting worse. She had chills, aches and pains and vomiting as well as headache. She had been on doxycycline at home. On admission, his CRP was elevated and lactic acid was normal. Last A1c in February 2020 was 9.9. X-ray of the foot done showed soft tissue swelling overlying the left great toe. She was admitted to be managed for cellulitis of the left great toe., During her previous admission in October 2020, she had SEUN due to IV vancomycin and IV contrast administration and required dialysis. Podiatry and infectious disease were consulted. Started on IV Zosyn in addition to the IV doxycycline. A1c checked was 10.8. Wound cultures obtained grew coagulase-negative staph and strep agalactiae. Blood cultures were negative after 48 hours. Patient was discharged home on 12/22/2020 with a prescription for p.o. Keflex for 7 days. She is to follow-up with her primary care doctor and is also to follow-up with podiatry on outpatient basis at the wound clinic. Patient seen and examined prior to discharge. She had no complaints. Review of systems otherwise negative. Labs and vitals reviewed. Home medication reviewed and reconciled. O/E: Vital Signs Temp Pulse Resp BP Pulse Ox 97.8 F 86 12 152/83 H 96 12/22/20 11:42 12/22/20 11:42 12/22/20 11:42 12/22/20 11:42 12/22/20 11:42 General: Alert, Oriented x3, Cooperative, No apparent distress HEENT: Atraumatic, PERRLA, EOMI, Normocephalic Oral: Dry Mucosa Neck: Supple, No JVD, Negative Carotid Bruits Lungs: Clear to auscultation, Normal air movement, No rhonchi, No wheeze, No rales Cardiovascular: Regular rate, Regular Rhythm, Normal S1, Normal S2, No murmurs Abdomen: Bowel Sounds Present, Soft, Non Tender Extremities: No clubbing, No cyanosis, - - left great toe wrapped in bandage Skin: - Musculoskeletal: No Tenderness to Palpation of Joints or Extremities Lymphatic: No Cervical, Supraclavicular, or Inguinal Adenopathy Neurological: Cranial nerves II-XII grossly intact, Neuro grossly intact, Motor Exam 5/5 strength throughout Psych/Mental Status: Normal Affect, Appropriate, Alert and oriented to time, place, person, mood and affect Plan is for discharge home today. Patient Problems: Active and Suspected Problems (Last Reviewed 12/15/20 @ 10:40 by Yudekla Bustos) Cellulitis of toe of left foot (Acute) Skin ulcer of left great toe with fat layer exposed (Acute) Diabetic foot ulcer (Acute) Osteomyelitis (Acute) Osteomyelitis of second toe of right foot (Suspected) - Physical Exam Vitals/I&O's: Vital Signs Temp Pulse Resp BP Pulse Ox 97.8 F 86 12 152/83 H 96 12/22/20 11:42 12/22/20 11:42 12/22/20 11:42 12/22/20 11:42 12/22/20 11:42 Oxygen Delivery Method Room Air Weight: 251 lb 15.814 oz Body Mass Index (BMI) 41.4 Finger Stick Blood Glucose 159 Intake and Output for Last 24 Hours 12/20/20 12/21/20 12/22/20 23:59 23:59 23:59 Intake Total 710.00 / 1330.00 2440 / 2690 350 / 350 Output Total 400 / 400 300 / 300 Balance 310.00 / 930.00 2140 / 2390 350 / 350 Microbiology Past 72 Hours 12/20/20 12:55 Blood Culture (Wb) - Anticubital Right Blood Culture - Preliminary No growth in 48 hours. 12/20/20 13:10 Blood Culture (Wb) - Left Forearm Blood Culture - Preliminary No growth in 48 hours. 12/20/20 Unknown Wound - Toe Gram Stain - Final 12/20/20 Unknown Wound - Toe Wound Culture - Preliminary Streptococcus agalactiae (B) Coag Negative Staph Laboratory Results 12/21/20 16:52: POC Glucose 141 H 12/21/20 21:45: POC Glucose 238 H 12/22/20 08:20: WBC 7.7, RBC 3.81 L, Hgb 11.2 L, Hct 35.2 L, MCV 92.4, MCH 29.4, MCHC 31.8 L, RDW Std Deviation 49.0 H, RDW Coeff of Brea 14.5, Plt Count 211, MPV 9.6, Immature Gran % (Auto) 0.500, Neut % (Auto) 60.4, Lymph % (Auto) 28.8, [place] % (Auto) 7.3, Eos % (Auto) 2.2, Baso % (Auto) 0.8, Absolute Neuts (auto) 4.6, Absolute Lymphs (auto) 2.20, Nucleated RBC % 0 12/22/20 08:20: Sodium 138, Potassium 3.9, Chloride 107, Carbon Dioxide 27.0, Anion Gap 4 L, BUN 21 H, Creatinine 0.72, Estim Creat Clear Calc 85.05, Est GFR (MDRD) Af Amer 111, Est GFR (MDRD) Non-Af 92, BUN/Creatinine Ratio 29.3 H, Glucose 135 H, Calcium 9.1 12/22/20 08:41: POC Glucose 143 H 12/22/20 12:38: POC Glucose 213 H Current Medications Acetaminophen (Acetaminophen 325 Mg Tablet) 650 mg PO Q6H PRN PRN PRN Reason: Pain Score 1-10/Temp > 100.7 F Last Admin: 12/21/20 11:33 Dose: 650 mg Documented by: Albuterol Sulfate (Albuterol 2.5 Mg/3 Ml Vial.Neb.) 2.5 mg INHALATION Q4H PRN PRN Reason: SOB &/OR WHEEZING Amlodipine Besylate (Amlodipine 10 Mg Tablet) 10 mg PO DAILY [facility] Last Admin: 12/22/20 08:48 Dose: 10 mg Documented by: Atorvastatin Calcium (Atorvastatin Calcium 80 Mg Tablet) 80 mg PO QHS [facility] Last Admin: 12/21/20 21:46 Dose: 80 mg Documented by: Dextrose (Dextrose 50%-Water 25 Gm/50 Ml Disp.Syrin) 0 gm IV X1 PRN; Protocol PRN Reason: Hypoglycemia Doxycycline Monohydrate (Doxycycline 100 Mg Capsule) 100 mg PO BID [facility] Last Admin: 12/22/20 08:47 Dose: 100 mg Documented by: Duloxetine HCl (Duloxetine Hcl 60 Mg Capsule) 60 mg PO DAILY@1800 [facility] Last Admin: 12/21/20 17:20 Dose: 60 mg Documented by: Ergocalciferol (Ergocalciferol 50,000 Unit Capsule) 50,[address] [facility] Glucagon (Glucagon 1 Mg/Ml Syringe) 1 mg IM .X1 PRN PRN Reason: Hypoglycemia Hydroxyzine Pamoate (Hydroxyzine Yarely 25 Mg Capsule) 100 mg PO QHS PRN PRN Reason: ANXIETY Last Admin: 12/21/20 18:55 Dose: 100 mg Documented by: Piperacillin Sod/Tazobactam (Sod 3.375 gm/ Sodium Chloride) 50 mls @ 12.5 mls/hr IV Q8 [facility] Last Admin: 12/22/20 12:49 Dose: 12.5 mls/hr Documented by: Sodium Chloride () 250 mls @ 15 mls/hr IV .[id number] PRN PRN Reason: Saline Flush Insulin Glargine (Insulin Glargine 100 Units/Ml Pen) 90 units SC BREAKFAST [facility] Last Admin: 12/22/20 08:43 Dose: 90 units Documented by: Insulin Human Lispro (Insulin Lispro 100 Unit/Ml Insuln.Pen) 0 unit SC ACHS [facility]; Protocol Last Admin: 12/22/20 12:40 Dose: 4 u Documented by: Insulin Human Lispro (Insulin Lispro 100 Unit/Ml Insuln.Pen) 15 unit SC TIDAC [facility] Last Admin: 12/22/20 12:40 Dose: 15 u Documented by: Levothyroxine Sodium (Levothyroxine 25 Mcg Tablet) 25 mcg PO DAILY@0600 [facility] Last Admin: 12/22/20 06:15 Dose: 25 mcg Documented by: Losartan Potassium (Losartan Potassium 50 Mg Tablet) 50 mg PO DAILY [facility] Last Admin: 12/22/20 08:47 Dose: 50 mg Documented by: Morphine Sulfate (Morphine 4 Mg/Ml Syringe) 4 mg IV Q3H PRN PRN PRN Reason: Pain Score 6-10 Last Admin: 12/20/20 17:06 Dose: 4 mg Documented by: Nicotine (Nicotine 21 Mg Patch) 21 mg TD DAILY [facility] Last Admin: 12/22/20 08:46 Dose: 21 mg Documented by: Nitroglycerin (Nitroglycerin (Inpatient Use) 0.4 Mg Tab.Subl) 0.4 mg SL Q5M PRN PRN Reason: CARDIAC/CHEST PAIN Nutritional Formula (Lactose Free) (Glucerna Shake 120 Ml Liquid) 120 ml PO TIDCM [facility] Last Admin: 12/22/20 12:43 Dose: Not Given Documented by: Oxycodone HCl (Oxycodone 5 Mg Tablet) 5 mg PO Q4H PRN PRN PRN Reason: Pain Score 4-10 Last Admin: 12/21/20 03:57 Dose: 5 mg Documented by: Pantoprazole Sodium (Pantoprazole Sodium 20 Mg Tablet) 20 mg PO BID [facility] Last Admin: 12/22/20 08:47 Dose: 20 mg Documented by: Polyethylene Glycol (Polyethylene Glycol 3350 17 Gm Packet) 17 gm PO DAILY [facility] Last Admin: 12/22/20 08:53 Dose: Not Given Documented by: Pregabalin (Pregabalin 50 Mg Capsule) 100 mg PO BID [facility] Last Admin: 12/22/20 08:52 Dose: 100 mg Documented by: Prochlorperazine Edisylate (Prochlorperazine 10 Mg/2 Ml Vial) 5 mg IV Q4H PRN PRN PRN Reason: Breakthrough nausea/vomiting Sodium Chloride (0.9% Saline Lock 10 Ml Syringe) 10 - 40 ml IV UD PRN PRN Reason: SALINE FLUSH Last Admin: 12/20/20 17:58 Dose: 20 ml Documented by: Trazodone HCl (Trazodone 100 Mg Tablet) 100 mg PO QHS [facility] Last Admin: 12/21/20 19:00 Dose: 100 mg Documented by: Discharge Diet: Low fat/ Low Cholesterol, 1800 Calorie Control Diet Discharge Activity: Return to Normal Activity Weight Bearing Status: Weight bearing as tolerated Call your doctor if your incision/area has: Increased Pain/ Swelling, Increased Redness, Foul Smelling Discharge, Swelling at the incision site Call your doctor if you observe: Fever of 101 or Higher, Uncontrolled pain Home Medications: Medications to take at Discharge Albuterol Inhaler [Ventolin Hfa] 1 - 2 puff INHALATION Q6H PRN PRN 08/30/19 Atorvastatin Calcium [Lipitor] 80 mg PO DAILY 08/30/19 Dulaglutide [Trulicity] 0.75 mg SQ WE 08/30/19 Duloxetine HCl 60 mg PO DAILY@1800 03/21/20 Multivitamin with Minerals [Multiple Vitamin] 1 tab PO DAILY 03/21/20 Pregabalin [Lyrica] 100 mg PO BID 03/21/20 Ergocalciferol [Vitamin D] 50,000 unit PO WE 10/17/20 Insulin Degludec [Tresiba Flextouch U-100] 100 unit SQ DAILY 10/17/20 Levothyroxine [Synthroid] 25 mcg PO DAILY 11/11/20 Pantoprazole Sodium [Protonix] 20 mg PO BID 11/11/20 Acetaminophen [Tylenol Arthritis] 1,300 mg PO DAILY PRN PRN 12/08/20 Biotin 5,000 mcg SL DAILY 12/08/20 Hydroxyzine Pamoate 100 mg PO QHS PRN 12/08/20 Losartan Potassium 50 mg PO DAILY 12/08/20 Amlodipine [Norvasc] 10 mg PO DAILY 12/20/20 Trazodone HCl 100 mg PO QHS 12/20/20 Cephalexin [Keflex] 500 mg PO Q8 #20 capsule 12/22/20 Following Prescriptions Were Given to Patient: Cephalexin [Keflex] 500 mg PO Q8 #20 capsule Transmission Status: Received by GUERA HAMMER1953 [facility] Primary Care Physician: Shirley Garcia MD [Primary Care Provider] - Please follow up with your Primary Care Physician in: 1-2 weeks Please Follow Up With: Haylee Guillen DPM When: at the wound care clinic next Friday as scheduled. Patient Instructions: ED Cellulitis Disposition: Home Minutes spent on discharge:: 45 Patient Condition:: Stable Medical Necessity - Tobacco Use Smoking Status: Current every day smoker Tobacco Use: Cigarettes Meaningful Use Info Meaningful Use Diagnoses (Choose all that apply): None applicable Inpatient E&M: 70577 Disch Hosp
[2020-12-22 15:00] VITALS: BP 110/65; PULSE 78; RESP 16; TEMP 36.7; O2SAT 96
--- NOTE | 2020-12-22 15:08 | CASEMGMT ---
Addendum entered by Demetrice Serrato 12/22/20 15:38: Transport called for pt to dc. Pt walker has not arrived. TC to [employer]. They have not left yet. Spoke with pt in room. She is agreeable to bead picker walker when she leaves the hospital. No further needs at this time. Original Note: Faxed referral for fww to [facility]. TC to [facility] and spoke with Loreta to make aware that pt is dc'ing today and to deliver to room.
[2020-12-22 15:30] LABS: Bedside Glucose 91 mg/dL (70-110)
--- NOTE | 2020-12-25 15:36 | CASEMGMT ---
CHUCK JACK Discharge Follow-up Phone Call: ROSALBA: Chelle Strata: 3 Call Date: 12/25/2020 Discharge Date: 12/22/2020 Time of Call:[id number] Duration: 0 Admitting Diagnosis: L great toe abscess CHUCK JACK attempted to reach pt for follow up tc. No answer, left vm on pt identified phone with return call back number.
== END 2020-12-22 15:35 | disposition home or self-care (01) | DRG 638 ==
LOC: ED 13:29 → MS3 15:02
PROVIDERS: Admitting Provider Internal Medicine; Emergency Provider Emergency Medicine; PCP Internal Medicine; Visit Provider Student in an Organized Health Care Education/Training Program
DX: E11.621 Type 2 diabetes mellitus with foot ulcer (principal); L97.522 Non-pressure chronic ulcer of other part of left foot with fat layer exposed; E11.42 Type 2 diabetes mellitus with diabetic polyneuropathy; E11.65 Type 2 diabetes mellitus with hyperglycemia; Z68.41 Body mass index [BMI] 40.0-44.9, adult; E66.01 Morbid (severe) obesity due to excess calories; Z79.4 Long term (current) use of insulin; L03.032 Cellulitis of left toe; M20.41 Other hammer toe(s) (acquired), right foot; E78.5 Hyperlipidemia, unspecified; F41.8 Other specified anxiety disorders; M79.7 Fibromyalgia; I10 Essential (primary) hypertension; E03.9 Hypothyroidism, unspecified; Z66 Do not resuscitate; F17.210 Nicotine dependence, cigarettes, uncomplicated; Z79.890 Hormone replacement therapy; Z79.899 Other long term (current) drug therapy
CPT/HCPCS: 11042; 36415; 73630; 73718; 80048; 80053; 81001; 82962; 83036; 83605; 83735; 84100; 84134; 85025; 85610; 85652; 85730; 86140; 87040; 87070; 87075; 87077; 87186; 87205; 87640; 96361; 96365; 96366; 96375; 96376; 97802; 99213; 99218; 99284; J7030; A4216; G0378; G0463; J2405

== ENCOUNTER → 2020-12-20 16:35 | Outpatient (CLI) | payer MEDICARE, MEDICAID, SELFPAY ==
[2020-12-20 15:16] VITALS: BMI 41.4
[2020-12-20 19:39] LABS: M R Staph aureus DNA By PCR Negative (Negative); Probe Check PASS; Staph aureus DNA By PCR NEGATIVE (Negative)
== END ==
PROVIDERS: PCP Internal Medicine; Referring Provider Podiatrist Foot & Ankle Surgery; Visit Provider Podiatrist Foot & Ankle Surgery
DX: L03.032 Cellulitis of left toe (principal); M20.12 Hallux valgus (acquired), left foot
CPT/HCPCS: 87070; 87077; 87186; 87205; 87640

== ENCOUNTER 2020-12-26 09:15 | Outpatient (RCR) | payer MEDICARE, MEDICAID, SELFPAY ==
[2020-11-15 08:39] VITALS: BMI 39.9
[2020-11-27 00:35] VITALS: BP 151/83; PULSE 87; RESP 20; TEMP 36.4
[2020-12-19 10:56] VITALS: BP 161/85; PULSE 86; RESP 18; TEMP 36.3; BMI 38.9
--- NOTE | 2020-12-20 16:35 | PN.PCM_ITS ---
(1) Cellulitis of toe of left foot Status: Acute Code(s): L03.032 - Cellulitis of left toe (2) Skin ulcer of left great toe with fat layer exposed Status: Acute Code(s): L97.522 - Non-pressure chronic ulcer of other part of left foot with fat layer exposed (3) Diabetic foot ulcer Status: Acute Qualifiers: Diabetic foot ulcer location: toe Diabetes mellitus type: type 2 Laterality: left Code(s): E11.621 - Type 2 diabetes mellitus with foot ulcer; L97.509 - Non- pressure chronic ulcer of other part of unspecified foot with unspecified severity (4) Obesity (BMI 30-39.9) Status: Chronic Code(s): E66.9 - Obesity, unspecified (5) Type 2 diabetes mellitus with diabetic polyneuropathy Status: Chronic Code(s): E11.42 - Type 2 diabetes mellitus with diabetic shanta yneuropathy Type of Wound Date of Service: 12/19/20 Chief Complaint: left plantar hallux ulcer History of Wound: Patient is a 49 year old female who presents with plantar left hallux ulceration. She was previously seen in my office for management of this wound. At that time she also had cellulitis which was cultured showing coag negative staph with antibiotics on 10/10/20. Patient has been offloading with offloaded surgical shoe. Patient has been struggling with buildup of callus to ulcer site. 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 Patient was admitted to the hospital in October 2019 for worsening infection with early acute osteomyelitis noted on MRI to her left great toe. Patient was discharged at that time on doxycycline 6-week course per infectious disease. Patient was also noted during that hospital stay to have an SEUN from combination of vancomycin and IV dye contrast. Patient has recently finished dialysis with return of normal kidney function. Patient relates that is starting to get red again is concern for infection. Progress of Wound: Slight erythema with increased pain per patient Subjective: Patient seen and examined resting comfortably. Patient denies any new pedal complaints. Patient denies any nausea, fever, chills, chest pain, shortness of breath, cough, streaking, purulence, vomiting. Patient relates that the toe is getting red again and is more painful than normal. She is concern for infection - Physical Exam Vital Signs Temp Pulse Resp BP 97.3 F L 86 18 161/85 H 12/19/20 10:56 12/19/20 10:56 12/19/20 10:56 12/19/20 10:56 General: Alert, Oriented x3 HEENT: Atraumatic Abdomen: Obese Extremities: No clubbing, No cyanosis, Capillary Refill Less than 3 Seconds, No Calf Tenderness, Edema - Left great toe with mild erythema, Peripheral Pulses Normal, Tenderness - To palpation of left great toe Skin: Ulcer/ Wound - Left plantar medial hallux. No malodor, purulence, probing to bone, streaking, fluctuation, crepitus. There is some edema noted to hallux with slight erythema. Skin is hairless. Granular base Wound Measurements and Assessment WC - Nurse 1 - General Ulcer Measurement Start: 12/19/20 10:56 Freq: Status: Active Protocol: Activity Type Activity Date Activity User E-Sign Co-Sign Detail Recorded Client Recorded Date Recorded By Document 12/19/20 10:56 DL [id number] 12/19/20 11:02 DL 12/19/20 10:56 Wound Center Nurse 1 [Ulcer Assessment] #2 l Grt Toe Plantar -Current Size (cm) - Length 0.4 -Current Size (cm) - Width 0.2 -Current Size (cm) - Depth 0.2 -Total Square Cm 0.08 -Photo Taken Yes -Maximum Distance #2 (cm) 0.2 -Circular Undermining Yes -Exudate Amt Small -Exudate Type Serosanguineous -Wound Margin Thickened -Granulation Amt Small (1-33%) -Granulation Quality [place] -Necrosis Amt Small (1-33%) -Necrotic Tissue Type Adherent Slough -Structure Exposed N/A -Texture (Sherin-wound Skin Appearance) Callus, Localized Edema ,Scarring -Moisture (Sherin-wound Skin Appearance Dry/Scaly ) -Color (Sherin-wound Skin Appearance) Erythema -Temperature (Sherin-wound Skin No Abnormality Appearance) (Pt Warm) -Tenderness on Palpation (Sherin-wound No Skin Appearance) -Ulcer Cleansing Wound Cleanser -Foul Odor after Cleansing No -Anesthetic Used 4% Lidocaine Solution WC - Nurse 2 - General Ulcer CM Notes Start: 12/19/20 10:56 Freq: Status: Active Protocol: Activity Type Activity Date Activity User E-Sign Co-Sign Detail Recorded Client Recorded Date Recorded By Document 12/19/20 11:33 [id number] 12/19/20 11:36 JF 12/19/20 11:33 Wound Center Nurse 2 [Procedure/Treatment] -Time 11:33 -Correct Patient Yes -Correct Side, Site, Position Yes -Correct Procedure Yes -Procedure Performed Yes -Type of Procedure Debridement -Clinical Debridement Subcutaneous -Tissue Removed Subcutaneous -Post Debridement (cm) - Length 1 -Post Debridement (cm) - Width 0.2 -Post Debridement (cm) - Depth 0.2 -Total Square (Post) (cm) 0.2 -Area of Debridement (cm) - Length 1 -Area of Debridement (cm) - Width 0.2 -Total Square (Area) (cm) 0.2 -Tunneling No -Undermining/Tunneling No -Circular Undermining No -Wound/Ulcer Outcome Not Healed -Ulcer Cleansing Rinsed/ Irrigated with Saline -Foul Odor after Cleansing No -Bioengineered Tissue No -Bleeding Controlled with Pressure -Offloading Yes -Type of Offloading Surgical Shoe -Debridement - Subq, 1st 20sq cm Yes [See Physician Procedure note for Specifics] Pain Scale: 0-10 Numeric [Pain] -Is Patient Pain Free? Yes - Nurse 3 - General Ulcer D/C NN Start: 12/19/20 10:56 Freq: Status: Active Protocol: Activity Type Activity Date Activity User E-Sign Co-Sign Detail Recorded Client Recorded Date Recorded By Document 12/19/20 11:47 DL [email or web address] 12/19/20 11:48 DL 12/19/20 11:47 Wound Care Nurse 3 [Wound Dressing] #2 l Grt Toe Plantar -Ulcer Cleansing Rinsed/ Irrigated with Saline -Foul Odor after Cleansing No -Primary Dressing Applied Fibracol Plus 4x4 -Primary Dressing Covered/Secured Dry Gauze & with Roll Gauze, Secured with Tape -Fibracol Plus 4x4 1 Pain Scale: 0-10 Numeric [Pain] -Is Patient Pain Free? Yes - Visit Discharge [Visit Discharge Information] -Discharge Condition Stable -Ambulatory Status Ambulatory -Transportation Private Auto Musculoskeletal: Tenderness Neurological: - - Decrease in epicritic sensation consistent with neuropathy Psych/Mental Status: Normal Affect, Appropriate Debridement Note Post-Debridement Measurements/Treatment - Nurse 2 - General Ulcer CM Notes Start: 12/19/20 10:56 Freq: Status: Active Protocol: Activity Type Activity Date Activity User E-Sign Co-Sign Detail Recorded Client Recorded Date Recorded By Document 12/19/20 11:33 [id number] 12/19/20 11:36 12/19/20 11:33 Wound Center Nurse 2 #2 l Grt Toe Plantar -Time 11:33 -Correct Patient Yes -Correct Side, Site, Position Yes -Correct Procedure Yes -Procedure Performed Yes -Type of Procedure Debridement -Clinical Debridement Subcutaneous -Tissue Removed Subcutaneous -Post Debridement (cm) - Length 1 -Post Debridement (cm) - Width 0.2 -Post Debridement (cm) - Depth 0.2 -Total Square (Post) (cm) 0.2 -Area of Debridement (cm) - Length 1 -Area of Debridement (cm) - Width 0.2 -Total Square (Area) (cm) 0.2 -Tunneling No -Undermining/Tunneling No -Circular Undermining No -Wound/Ulcer Outcome Not Healed -Ulcer Cleansing Rinsed/ Irrigated with Saline -Foul Odor after Cleansing No -Bioengineered Tissue No -Bleeding Controlled with Pressure -Offloading Yes -Type of Offloading Surgical Shoe -Debridement - Subq, 1st 20sq cm Yes Pain Scale: 0-10 Numeric Is Patient Pain Free? Yes - Nurse 3 - General Ulcer D/C NN Start: 12/19/20 10:56 Freq: Status: Active Protocol: Activity Type Activity Date Activity User E-Sign Co-Sign Detail Recorded Client Recorded Date Recorded By Document 12/19/20 11:47 DL [id number] 12/19/20 11:48 DL 12/19/20 11:47 Wound Care Nurse 3 #2 l Grt Toe Plantar -Ulcer Cleansing Rinsed/ Irrigated with Saline -Foul Odor after Cleansing No -Primary Dressing Applied Fibracol Plus 4x4 -Primary Dressing Covered/Secured with Dry Gauze & Roll Gauze, Secured with Tape -Fibracol Plus 4x4 1 Pain Scale: 0-10 Numeric Is Patient Pain Free? Yes WC - Visit Discharge Discharge Condition Stable Ambulatory Status Ambulatory Transportation Private Auto Wound debrided: Hallux medial plantar Laterality: Left Wound Grade/Stage: Bucio 3 Type of Debridement: Excisional debridement Anesthesia Used: 4% Lidocaine Solution Depth: in the subcutaneous layer Percentage of wound debrided: 100 Instrument Used: #15 blade Tissue Removed: Tissue removed include fibrous, devitalized, biofilm, slough tissue, callus Severity: Fat Layer Exposed Amount of bleeding with debridement: Mild Bleeding Controlled with: Pressure Patient tolerated procedure well Assessment/Plan Assessment: left plantar hallux ulceration bucio 3. History of acute osteomyelitis left great toe. diabetes with neuropathy. toe 1 and 2 amutation right foot Plan: Patient seen and examined. Blood flow studies reviewed. Venous studies showed patent deep veins. Arterial studies showed Right OSVALDO 1.08 and TBI 0.99 and left OSVALDO 1.02 and TBI 1.07 with bilateral triphasic pulses noted. This should prove adequate to allow healing. After verbal consent was obtained sharp excisional debridement was carried out which was well tolerated with patient's neuropathy. Patient on doxycycline. Continue wound care. Continue offloading with offloaded surgical shoe. Discussed proper blood sugar control, diet, wound care, and offloading to better allow healing. Discussed signs of infection to watch out for and to contact if any concerns arise. Patient concerned about redness to the top of her left hallux with increased pain. Patient denies any nausea fever vomiting chills chest pain shortness of breath at this time. Patient educated on signs to watch out for and if seen patient contact doctor's office or go to the emergency room. All questions answered. Follow up 1 week. This note was generated with [employer] dictation software. It may contain incorrect words, spelling, and punctuation that were not noted in checking the note before signing.
[2020-12-26 09:21] VITALS: BP 161/81; PULSE 95; RESP 16; TEMP 35.7; BMI 38.9
--- NOTE | 2020-12-26 10:01 | PN.PCM_ITS ---
(1) Cellulitis of toe of left foot Status: Acute Code(s): L03.032 - Cellulitis of left toe (2) Skin ulcer of left great toe with fat layer exposed Status: Acute Code(s): L97.522 - Non-pressure chronic ulcer of other part of left foot with fat layer exposed (3) Diabetic foot ulcer Status: Acute Qualifiers: Diabetic foot ulcer location: toe Diabetes mellitus type: type 2 Laterality: left Code(s): E11.621 - Type 2 diabetes mellitus with foot ulcer; L97.509 - Non- pressure chronic ulcer of other part of unspecified foot with unspecified severity (4) Obesity (BMI 30-39.9) Status: Chronic Code(s): E66.9 - Obesity, unspecified (5) Type 2 diabetes mellitus with diabetic polyneuropathy Status: Chronic Code(s): E11.42 - Type 2 diabetes mellitus with diabetic shanta yneuropathy (6) Amputation of right great toe Status: Acute Code(s): S98.111A - Complete traumatic amputation of right great toe, initial encounter Type of Wound Date of Service: 11/28/20 Chief Complaint: left plantar hallux ulcer History of Wound: Patient is a 49 year old female who presents with plantar left hallux ulceration. She was previously seen in my office for management of this wound. At that time she also had cellulitis which was cultured showing coag negative staph with antibiotics on 10/10/20. Patient has been offloading with offloaded surgical shoe. Patient has been struggling with buildup of callus to ulcer site. 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 Patient was admitted to the hospital in October 2019 for worsening infection with early acute osteomyelitis noted on MRI to her left great toe. Patient was discharged at that time on doxycycline 6-week course per infectious disease. Patient was also noted during that hospital stay to have an SEUN from combination of vancomycin and IV dye contrast. Patient has recently finished dialysis with return of normal kidney function. After patient visit last week patient woke up the next morning with complaints of fever chills malaise and worsening of the wound. Patient seen in my office on 12/20/2020 at which point she was sent to emergency room for admittance from 12/20/2020 to 12/22/2020. New cultures were obtained and 12/20/2020 demonstrating strep agalactiae and strep epididymis. Blood work from this admission demonstrated a white blood cell count of 7.7, ESR of 18, hemoglobin A1c of 10.8 and CRP of 8.35. A new MRI was obtained of the left foot showing no further evidence of osteomyelitis of the hallux. Patient was seen by infectious disease and was discharged on oral antibiotics of cephalexin and doxycycline. Progress of Wound: Wound is improved from being seen in the hospital Subjective: Patient seen and examined resting comfortably. Patient denies any new pedal complaints. Patient denies any nausea, fever, chills, chest pain, shortness of breath, cough, streaking, purulence, vomiting. Patient relates pain is much improved - Physical Exam Vital Signs Temp Pulse Resp BP 96.2 F L 95 16 161/81 H 12/26/20 09:21 12/26/20 09:21 12/26/20 09:21 12/26/20 09:21 General: Alert, Oriented x3 HEENT: Atraumatic Abdomen: Obese Extremities: No clubbing, No cyanosis, Capillary Refill Less than 3 Seconds, No Calf Tenderness, Diminished Peripheral Pulses, Edema - Improved Skin: Ulcer/ Wound - Left medial hallux ulceration. No malodor, purulence, probing to bone, streaking, fluctuation, crepitus, or other signs of infection. Skin is atrophic and hairless. Granular base, erythema improved Wound Measurements and Assessment WC - Nurse 1 - General Ulcer Measurement Start: 12/19/20 10:56 Freq: Status: Active Protocol: Activity Type Activity Date Activity User E-Sign Co-Sign Detail Recorded Client Recorded Date Recorded By Document 12/26/20 09:21 [facility] [id number] 12/26/20 09:25 [facility] 12/26/20 09:21 Wound Center Nurse 1 [Ulcer Assessment] #2 l Grt Toe Plantar -Combined with other wound No -Current Size (cm) - Length 0.1 -Current Size (cm) - Width 0.1 -Current Size (cm) - Depth 0.1 -Total Square Cm 0.01 -Photo Taken No -Tunneling No -Undermining/Tunneling No -Circular Undermining No -Exudate Amt Small -Exudate Type Serosanguineous -Wound Margin Distinct, Outline Attached -Granulation Amt None Present (0 %) -Slough/Fibrin Yes -Necrosis Amt Large (67-100%) -Necrotic Tissue Type Adherent Slough -Texture (Sherin-wound Skin Appearance) Assessed,Callus ,Scarring -Moisture (Sherin-wound Skin Appearance Assessed ) -Color (Sherin-wound Skin Appearance) Assessed -Temperature (Sherin-wound Skin No Abnormality Appearance) (Pt Warm) -Tenderness on Palpation (Sherin-wound No Skin Appearance) -Ulcer Cleansing Rinsed/ Irrigated with Saline -Foul Odor after Cleansing No -Anesthetic Used 5% Lidocaine Gel - Nurse 2 - General Ulcer CM Notes Start: 12/19/20 10:56 Freq: Status: Active Protocol: Activity Type Activity Date Activity User E-Sign Co-Sign Detail Recorded Client Recorded Date Recorded By Document 12/26/20 09:44 [id number] 12/26/20 09:47 12/26/20 09:44 Wound Center Nurse 2 [Procedure/Treatment] -Time 09:44 -Correct Patient Yes -Correct Side, Site, Position Yes -Correct Procedure Yes -Procedure Performed Yes -Type of Procedure Debridement -Clinical Debridement Subcutaneous -Tissue Removed Subcutaneous -Post Debridement (cm) - Length 1.5 -Post Debridement (cm) - Width 0.2 -Post Debridement (cm) - Depth 0.1 -Total Square (Post) (cm) 0.30 -Area of Debridement (cm) - Length 1.5 -Area of Debridement (cm) - Width 0.2 -Total Square (Area) (cm) 0.30 -Tunneling No -Undermining/Tunneling No -Circular Undermining No -Wound/Ulcer Outcome Not Healed -Ulcer Cleansing Rinsed/ Irrigated with Saline -Foul Odor after Cleansing No -Bioengineered Tissue No -Bleeding Controlled with Pressure -Offloading Yes -Type of Offloading Surgical Shoe -Treatment Response Procedure Tolerated Well -Debridement - Subq, 1st 20sq cm Yes [See Physician Procedure note for Specifics] Pain Scale: 0-10 Numeric [Pain] -Is Patient Pain Free? Yes - Nurse 3 - General Ulcer D/C NN Start: 12/19/20 10:56 Freq: Status: Active Protocol: Activity Type Activity Date Activity User E-Sign Co-Sign Detail Recorded Client Recorded Date Recorded By Document 12/26/20 09:54 [facility] [id number] 12/26/20 09:54 [facility] 03/30/21 09:54 Wound Care Nurse 3 [Wound Dressing] #2 l Grt Toe Plantar -Ulcer Cleansing Rinsed/ Irrigated with Saline -Foul Odor after Cleansing No -Primary Dressing Applied Other -Other Dressing hydrogel today -Primary Dressing Covered/Secured Dry Gauze, with Secured with Tape [Post Procedure Tolerated] -Treatment Response Procedure Tolerated Well Pain Scale: 0-10 Numeric [Pain] -Is Patient Pain Free? Yes WC - Visit Discharge [Visit Discharge Information] -Discharge Condition Stable -Ambulatory Status Ambulatory -Transportation Private Auto Musculoskeletal: Tenderness - Minimal to ulceration site, - - Right hallux amputation Neurological: - - Decrease in epicritic sensation Psych/Mental Status: Normal Affect, Appropriate Debridement Note Post-Debridement Measurements/Treatment - Nurse 2 - General Ulcer CM Notes Start: 12/19/20 10:56 Freq: Status: Active Protocol: Activity Type Activity Date Activity User E-Sign Co-Sign Detail Recorded Client Recorded Date Recorded By Document 12/19/20 11:33 [id number] 12/19/20 11:36 Document 12/26/20 09:44 [id number] 12/26/20 09:47 12/19/20 12/26/20 11:33 09:44 Wound Center Nurse 2 #2 l Grt Toe Plantar -Time 11:33 09:44 -Correct Patient Yes Yes -Correct Side, Site, Position Yes Yes -Correct Procedure Yes Yes -Procedure Performed Yes Yes -Type of Procedure Debridement Debridement -Clinical Debridement Subcutaneous Subcutaneous -Tissue Removed Subcutaneous Subcutaneous -Post Debridement (cm) - Length 1 1.5 -Post Debridement (cm) - Width 0.2 0.2 -Post Debridement (cm) - Depth 0.2 0.1 -Total Square (Post) (cm) 0.2 0.30 -Area of Debridement (cm) - Length 1 1.5 -Area of Debridement (cm) - Width 0.2 0.2 -Total Square (Area) (cm) 0.2 0.30 -Tunneling No No -Undermining/Tunneling No No -Circular Undermining No No -Wound/Ulcer Outcome Not Healed Not Healed -Ulcer Cleansing Rinsed/ Rinsed/ Irrigated with Irrigated with Saline Saline -Foul Odor after Cleansing No No -Bioengineered Tissue No No -Bleeding Controlled with Pressure Pressure -Offloading Yes Yes -Type of Offloading Surgical Shoe Surgical Shoe -Treatment Response Procedure Tolerated Well -Debridement - Subq, 1st 20sq cm Yes Yes Pain Scale: 0-10 Numeric Is Patient Pain Free? Yes Yes - Nurse 3 - General Ulcer D/C NN Start: 12/19/20 10:56 Freq: Status: Active Protocol: Activity Type Activity Date Activity User E-Sign Co-Sign Detail Recorded Client Recorded Date Recorded By Document 12/19/20 11:47 DL [id number] 12/19/20 11:48 DL Document 12/26/20 09:54 [facility] [id number] 12/26/20 09:54 [facility] 12/19/20 12/26/20 11:47 09:54 Wound Care Nurse 3 #2 l Grt Toe Plantar -Ulcer Cleansing Rinsed/ Rinsed/ Irrigated with Irrigated with Saline Saline -Foul Odor after Cleansing No No -Primary Dressing Applied Fibracol Plus Other 4x4 -Other Dressing hydrogel today -Primary Dressing Covered/Secured with Dry Gauze & Dry Gauze, Roll Gauze, Secured with Secured with Tape Tape -Fibracol Plus 4x4 1 Treatment Response Procedure Tolerated Well Pain Scale: 0-10 Numeric Is Patient Pain Free? Yes Yes - Visit Discharge Discharge Condition Stable Stable Ambulatory Status Ambulatory Ambulatory Transportation Private Auto Private Auto Wound debrided: Hallux Laterality: Left Wound Grade/Stage: Bucio 1 Type of Debridement: Excisional debridement Anesthesia Used: 4% Lidocaine Solution Depth: in the subcutaneous layer Percentage of wound debrided: 100 Instrument Used: #15 blade Tissue Removed: Tissue removed includes fibrous, devitalized, biofilm, and slough tissue Severity: Fat Layer Exposed Amount of bleeding with debridement: Mild Bleeding Controlled with: Pressure Patient tolerated procedure well Assessment/Plan Active Problems (Last Reviewed 12/15/20 @ 10:40 by Yudelka Bustos) Cellulitis of toe of left foot (Acute) Amputation of right great toe (Acute) Skin ulcer of left great toe with fat layer exposed (Acute) Diabetic foot ulcer (Acute) Type 2 diabetes mellitus with diabetic polyneuropathy (Chronic) Obesity (BMI 30-39.9) (Chronic) Assessment: left plantar hallux ulceration Bucio 1, previously bucio 3. History of acute osteomyelitis left great toe-resolved. diabetes with neuropathy. toe 1 and 2 amutation right foot Plan: Patient seen and examined. Patient is being seen as a follow-up from recent hospital stay. Clinically patient looks much improved. Patient reports improvement in her pain as well. MRI obtained while in the hospital on 12/20/2020 demonstrated no evidence of osteomyelitis to the left hallux after treatment course of antibiotics. Blood flow studies reviewed. Venous studies showed patent deep veins. Arterial studies showed Right OSVALDO 1.08 and TBI 0.99 and left OSVALDO 1.02 and TBI 1.07 with bilateral triphasic pulses noted. This should prove adequate to allow healing. After verbal consent was obtained sharp excisional debridement was carried out which was well tolerated with patient's neuropathy. Patient on doxycycline and Keflex per infectious disease by Dr. Lorenzo. Continue wound care. Continue offloading with offloaded surgical shoe. Discussed proper blood sugar control, diet, wound care, and offloading to better allow healing. Discussed signs of infection to watch out for and to contact if any concerns arise. Patient educated on signs to watch out for and if seen patient contact doctor's office or go to the emergency room. All questions answered. Follow up 1 week. This note was generated with [employer] dictation software. It may contain incorrect words, spelling, and punctuation that were not noted in checking the note before signing.
== END 2020-12-27 23:59 ==
LOC: WC 09:15
PROVIDERS: PCP Internal Medicine; Visit Provider Podiatrist Foot & Ankle Surgery
DX: E11.621 Type 2 diabetes mellitus with foot ulcer (principal); L97.522 Non-pressure chronic ulcer of other part of left foot with fat layer exposed; L03.032 Cellulitis of left toe; E11.42 Type 2 diabetes mellitus with diabetic polyneuropathy; E66.9 Obesity, unspecified; Z89.411 Acquired absence of right great toe; Z89.421 Acquired absence of other right toe(s)
CPT/HCPCS: 11042; 99213; G0463

== ENCOUNTER 2021-01-24 11:15 | Outpatient (RCR) | payer MEDICARE, MEDICAID, SELFPAY ==
[2020-12-28 00:42] VITALS: BP 161/81; PULSE 95; RESP 16; TEMP 35.7; BMI 41.4
[2021-01-02 09:36] VITALS: BP 154/99; PULSE 85; RESP 16; TEMP 36.9; BMI 41.4
--- NOTE | 2021-01-02 12:48 | PN.PCM_ITS ---
(1) Skin ulcer of left great toe with fat layer exposed Status: Chronic Code(s): L97.522 - Non-pressure chronic ulcer of other part of left foot with fat layer exposed (2) Type 2 diabetes mellitus with diabetic polyneuropathy Status: Chronic Code(s): E11.42 - Type 2 diabetes mellitus with diabetic polyneuropathy (3) Cellulitis of toe of left foot Status: Acute Code(s): L03.032 - Cellulitis of left toe (4) Osteomyelitis Status: Acute Code(s): M86.9 - Osteomyelitis, unspecified (5) Amputation of right great toe Status: Chronic Code(s): S98.111A - Complete traumatic amputation of right great toe, initial encounter Type of Wound Date of Service: 01/02/21 Chief Complaint: left plantar hallux ulcer History of Wound: Patient is a 49 year old female who presents with plantar left hallux ulceration. She was previously seen in my office for management of this wound. At that time she also had cellulitis which was cultured showing coag negative staph with antibiotics on 10/10/20. Patient has been offloading with offloaded surgical shoe. Patient has been struggling with buildup of callus to ulcer site. 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 Patient was admitted to the hospital in October 2019 for worsening infection with early acute osteomyelitis noted on MRI to her left great toe. Patient was discharged at that time on doxycycline 6-week course per infectious disease. Patient was also noted during that hospital stay to have an SEUN from combination of vancomycin and IV dye contrast. Patient has recently finished dialysis with return of normal kidney function. After patient visit last week patient woke up the next morning with complaints of fever chills malaise and worsening of the wound. Patient seen in my office on 12/20/2020 at which point she was sent to emergency room for admittance from 12/20/2020 to 12/22/2020. New cultures were obtained and 12/20/2020 demonstrating strep agalactiae and strep epididymis. Blood work from this admission demonstrated a white blood cell count of 7.7, ESR of 18, hemoglobin A1c of 10.8 and CRP of 8.35. A new MRI was obtained of the left foot showing no further evidence of osteomyelitis of the hallux. Patient was seen by infectious disease and was discharged on oral antibiotics of cephalexin and doxycycline. Progress of Wound: Hallux ulcerations stable with some remaining erythema noted Subjective: Patient seen and examined resting comfortably. Patient denies any new pedal complaints. Patient denies any nausea, fever, chills, chest pain, shortness of breath, cough, streaking, purulence, vomiting. Patient relates some concern over remaining redness to the toe. She relates that her pain and swelling to the digit have resolved though. Patient still taking antibiotics - Physical Exam Vital Signs Temp Pulse Resp BP 98.4 F 85 16 154/99 H 01/02/21 09:36 01/02/21 09:36 01/02/21 09:36 01/02/21 09:36 General: Alert, Oriented x3 HEENT: Atraumatic Abdomen: Obese Extremities: No clubbing, No cyanosis, No edema, Capillary Refill Less than 3 Seconds, No Calf Tenderness, Peripheral Pulses Normal Skin: Ulcer/ Wound - Left medial hallux. No malodor, purulence, probing to bone, streaking, fluctuation, crepitus, or other signs of infection. There is mild erythema to entire hallux remaining. Skin is atrophic and hairless. Granular base Wound Measurements and Assessment WC - Nurse 1 - General Ulcer Measurement Start: 01/02/21 09:36 Freq: Status: Active Protocol: Activity Type Activity Date Activity User E-Sign Co-Sign Detail Recorded Client Recorded Date Recorded By Document 01/02/21 09:36 [facility] [id number] 01/02/21 09:42 [facility] 01/02/21 09:36 Wound Center Nurse 1 [Ulcer Assessment] #2 l Grt Toe Plantar -Combined with other wound No -Current Size (cm) - Length 0.1 -Current Size (cm) - Width 0.1 -Current Size (cm) - Depth 0.3 -Total Square Cm 0.01 -Photo Taken No -Epithelialization None Present -Tunneling No -Undermining/Tunneling No -Circular Undermining No -Exudate Amt Small -Exudate Type Serosanguineous -Wound Margin Distinct, Outline Attached -Granulation Amt Small (1-33%) -Granulation Quality Red -Slough/Fibrin Yes -Necrosis Amt Large (67-100%) -Necrotic Tissue Type Adherent Slough -Texture (Sherin-wound Skin Appearance) Assessed,Callus ,Scarring -Moisture (Sherin-wound Skin Appearance Assessed,Dry/ ) Scaly -Color (Sherin-wound Skin Appearance) Assessed -Temperature (Sherin-wound Skin No Abnormality Appearance) (Pt Warm) -Tenderness on Palpation (Sherin-wound No Skin Appearance) -Ulcer Cleansing Rinsed/ Irrigated with Saline -Foul Odor after Cleansing No -Anesthetic Used 5% Lidocaine Gel - Nurse 2 - General Ulcer CM Notes Start: 01/02/21 09:36 Freq: Status: Active Protocol: Activity Type Activity Date Activity User E-Sign Co-Sign Detail Recorded Client Recorded Date Recorded By Document 01/02/21 10:17 [id number] 01/02/21 10:21 01/02/21 10:17 Wound Center Nurse 2 [Procedure/Treatment] -Time 10:17 -Correct Patient Yes -Correct Side, Site, Position Yes -Correct Procedure Yes -Procedure Performed Yes -Type of Procedure Debridement -Clinical Debridement Subcutaneous -Tissue Removed Subcutaneous -Post Debridement (cm) - Length 0.8 -Post Debridement (cm) - Width 0.4 -Post Debridement (cm) - Depth 0.1 -Total Square (Post) (cm) 0.32 -Area of Debridement (cm) - Length 0.8 -Area of Debridement (cm) - Width 0.4 -Total Square (Area) (cm) 0.32 -Tunneling No -Undermining/Tunneling No -Circular Undermining No -Wound/Ulcer Outcome Not Healed -Ulcer Cleansing Rinsed/ Irrigated with Saline -Foul Odor after Cleansing No -Bioengineered Tissue No -Bleeding Controlled with Pressure -Offloading No -Treatment Response Procedure Tolerated Well -Debridement - Subq, 1st 20sq cm Yes [See Physician Procedure note for Specifics] Pain Scale: 0-10 Numeric [Pain] -Is Patient Pain Free? Yes - Nurse 3 - General Ulcer D/C NN Start: 01/02/21 09:36 Freq: Status: Active Protocol: Activity Type Activity Date Activity User E-Sign Co-Sign Detail Recorded Client Recorded Date Recorded By Document 01/02/21 10:23 [id number] 01/02/21 10:23 01/02/21 10:23 Wound Care Nurse 3 [Wound Dressing] #2 l Grt Toe Plantar -Ulcer Cleansing Rinsed/ Irrigated with Saline -Foul Odor after Cleansing No -Primary Dressing Applied C Hydrogel ($) -Primary Dressing Covered/Secured Dry Gauze, with Secured with Tape Pain Scale: 0-10 Numeric [Pain] -Is Patient Pain Free? Yes WC - Visit Discharge [Visit Discharge Information] -Discharge Condition Stable -Ambulatory Status Ambulatory -Transportation Private Auto -Medication Reconcilliation completed Yes & provided to patient/care provider -Clinical Summary of Care Provided Yes Musculoskeletal: No Tenderness to Palpation of Joints or Extremities, - - Toe amputations Neurological: - - Decrease in epicritic sensation Psych/Mental Status: Normal Affect, Appropriate Debridement Note Post-Debridement Measurements/Treatment - Nurse 2 - General Ulcer CM Notes Start: 01/02/21 09:36 Freq: Status: Active Protocol: Activity Type Activity Date Activity User E-Sign Co-Sign Detail Recorded Client Recorded Date Recorded By Document 01/02/21 10:17 GISELA [id number] 01/02/21 10:21 01/02/21 10:17 Wound Center Nurse 2 #2 l Grt Toe Plantar -Time 10:17 -Correct Patient Yes -Correct Side, Site, Position Yes -Correct Procedure Yes -Procedure Performed Yes -Type of Procedure Debridement -Clinical Debridement Subcutaneous -Tissue Removed Subcutaneous -Post Debridement (cm) - Length 0.8 -Post Debridement (cm) - Width 0.4 -Post Debridement (cm) - Depth 0.1 -Total Square (Post) (cm) 0.32 -Area of Debridement (cm) - Length 0.8 -Area of Debridement (cm) - Width 0.4 -Total Square (Area) (cm) 0.32 -Tunneling No -Undermining/Tunneling No -Circular Undermining No -Wound/Ulcer Outcome Not Healed -Ulcer Cleansing Rinsed/ Irrigated with Saline -Foul Odor after Cleansing No -Bioengineered Tissue No -Bleeding Controlled with Pressure -Offloading No -Treatment Response Procedure Tolerated Well -Debridement - Subq, 1st 20sq cm Yes Pain Scale: 0-10 Numeric Is Patient Pain Free? Yes - Nurse 3 - General Ulcer D/C NN Start: 01/02/21 09:36 Freq: Status: Active Protocol: Activity Type Activity Date Activity User E-Sign Co-Sign Detail Recorded Client Recorded Date Recorded By Document 01/02/21 10:23 JF [id number] 01/02/21 10:23 01/02/21 10:23 Wound Care Nurse 3 #2 l Grt Toe Plantar -Ulcer Cleansing Rinsed/ Irrigated with Saline -Foul Odor after Cleansing No -Primary Dressing Applied C Hydrogel ($) -Primary Dressing Covered/Secured with Dry Gauze, Secured with Tape Pain Scale: 0-10 Numeric Is Patient Pain Free? Yes WC - Visit Discharge Discharge Condition Stable Ambulatory Status Ambulatory Transportation Private Auto Medication Reconcilliation completed & Yes provided to patient/care provider Clinical Summary of Care Provided Yes Wound debrided: Hallux Laterality: Left Wound Grade/Stage: Bucio 1 Type of Debridement: Excisional debridement Anesthesia Used: 4% Lidocaine Solution Depth: in the subcutaneous layer Percentage of wound debrided: 100 Instrument Used: #15 blade Tissue Removed: Tissue removed includes fibrous, devitalized, biofilm, callus,slough tissue Severity: Fat Layer Exposed Amount of bleeding with debridement: Mild Bleeding Controlled with: Compression and gauze Patient tolerated procedure well Assessment/Plan Assessment: left plantar hallux ulceration Bucio 1, previously bucio 3. History of acute osteomyelitis left great toe-resolved. diabetes with neuropathy. toe 1 and 2 amutation right foot Plan: Patient seen and examined. Patient is being seen as a follow-up from recent hospital stay. Clinically patient looks much improved. Patient reports improvement in her pain as well. There is some redness remaining. Edema and pain resolved. MRI obtained while in the hospital on 12/20/2020 demonstrated no evidence of osteomyelitis to the left hallux after treatment course of antibiotics. Blood flow studies reviewed. Venous studies showed patent deep veins. Arterial studies showed Right OSVALDO 1.08 and TBI 0.99 and left OSVALDO 1.02 and TBI 1.07 with bilateral triphasic pulses noted. This should prove adequate to allow healing. After verbal consent was obtained sharp excisional debridement was carried out which was well tolerated with patient's neuropathy. Patient on doxycycline and Keflex per infectious disease by Dr. Lorenzo. Patient relates having finished the doxycycline, but is still taking the keflex. Continue wound care daily. Continue offloading with offloaded surgical shoe. Discussed proper blood sugar control, diet, wound care, and offloading to better allow healing. Discussed signs of infection to watch out for and to contact if any concerns arise. Patient educated on signs to watch out for and if seen patient contact doctor's office or go to the emergency room. All questions answered. Follow up 1 week. This note was generated with [employer] software. It may contain incorrect words, spelling, and punctuation that were not noted in checking the note before signing.
[2021-01-09 09:43] VITALS: BP 178/93; PULSE 85; RESP 18; TEMP 36.8; BMI 41.4
--- NOTE | 2021-01-09 12:25 | PN.PCM_ITS ---
(1) Skin ulcer of left great toe with fat layer exposed Status: Chronic Code(s): L97.522 - Non-pressure chronic ulcer of other part of left foot with fat layer exposed (2) Type 2 diabetes mellitus with diabetic polyneuropathy Status: Chronic Code(s): E11.42 - Type 2 diabetes mellitus with diabetic polyneuropathy (3) Cellulitis of toe of left foot Status: Acute Code(s): L03.032 - Cellulitis of left toe (4) Osteomyelitis Status: Acute Code(s): M86.9 - Osteomyelitis, unspecified (5) Amputation of right great toe Status: Chronic Code(s): S98.111A - Complete traumatic amputation of right great toe, initial encounter Type of Wound Date of Service: 01/09/21 Chief Complaint: left plantar hallux ulcer History of Wound: Patient is a 49 year old female who presents with plantar left hallux ulceration. She was previously seen in my office for management of this wound. At that time she also had cellulitis which was cultured showing coag negative staph with antibiotics on 10/10/20. Patient has been offloading with offloaded surgical shoe. Patient has been struggling with buildup of callus to ulcer site. 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 Patient was admitted to the hospital in October 2019 for worsening infection with early acute osteomyelitis noted on MRI to her left great toe. Patient was discharged at that time on doxycycline 6-week course per infectious disease. Patient was also noted during that hospital stay to have an SEUN from combination of vancomycin and IV dye contrast. Patient has recently finished dialysis with return of normal kidney function. After patient visit last week patient woke up the next morning with complaints of fever chills malaise and worsening of the wound. Patient seen in my office on 12/20/2020 at which point she was sent to emergency room for admittance from 12/20/2020 to 12/22/2020. New cultures were obtained and 12/20/2020 demonstrating strep agalactiae and strep epididymis. Blood work from this admission demonstrated a white blood cell count of 7.7, ESR of 18, hemoglobin A1c of 10.8 and CRP of 8.35. A new MRI was obtained of the left foot showing no further evidence of osteomyelitis of the hallux. Patient was seen by infectious disease and was discharged on oral antibiotics of cephalexin and doxycycline. Patient has since finished these. Progress of Wound: Hallux ulcerations stable with some continuing decrease in erythema noted Subjective: Patient seen and examined resting comfortably. Patient denies any new pedal complaints. Patient denies any nausea, fever, chills, chest pain, shortness of breath, cough, streaking, purulence, vomiting. Patient denies any pain in her foot and has not noticed any erythema - Physical Exam Vital Signs Temp Pulse Resp BP 98.2 F 85 18 178/93 H 01/09/21 09:43 01/09/21 09:43 01/09/21 09:43 01/09/21 09:43 General: Alert, Oriented x3 HEENT: Atraumatic Abdomen: Obese Extremities: No cyanosis, No edema, Capillary Refill Less than 3 Seconds, No Calf Tenderness, Diminished Peripheral Pulses Skin: Ulcer/ Wound - Left hallux. No malodor, purulence, probing to bone, streaking, fluctuation, crepitus, or other signs of infection. Skin is atrophic and hairless. Granular base. Surrounding callus tissue noted with some dried blood encountered. Some maceration tissue. Minimal erythema present much improved Wound Measurements and Assessment WC - Nurse 1 - General Ulcer Measurement Start: 01/02/21 09:36 Freq: Status: Active Protocol: Activity Type Activity Date Activity User E-Sign Co-Sign Detail Recorded Client Recorded Date Recorded By Document 01/09/21 09:43 [id number] 01/09/21 09:48 DL 01/09/21 09:43 Wound Center Nurse 1 [Ulcer Assessment] #2 l Grt Toe Plantar -Current Size (cm) - Length 1.2 -Current Size (cm) - Width 0.8 -Current Size (cm) - Depth 0.1 -Total Square Cm 0.96 -Photo Taken No -Exudate Amt None Present -Wound Margin Thickened -Granulation Amt None Present (0 %) -Necrosis Amt Large (67-100%) -Necrotic Tissue Type Adherent Slough -Structure Exposed N/A -Texture (Sherin-wound Skin Appearance) Callus -Moisture (Sherin-wound Skin Appearance Dry/Scaly ) -Color (Sherin-wound Skin Appearance) No Abnormality -Temperature (Sherin-wound Skin No Abnormality Appearance) (Pt Warm) -Tenderness on Palpation (Sherin-wound No Skin Appearance) -Ulcer Cleansing Wound Cleanser -Foul Odor after Cleansing No -Anesthetic Used 4% Lidocaine Solution - Nurse 2 - General Ulcer CM Notes Start: 01/02/21 09:36 Freq: Status: Active Protocol: Activity Type Activity Date Activity User E-Sign Co-Sign Detail Recorded Client Recorded Date Recorded By Document 01/09/21 10:09 [email or web address] [email or web address] 01/09/21 10:13 GISELA 01/09/21 10:09 Wound Center Nurse 2 [Procedure/Treatment] -Time 10:09 -Correct Patient Yes -Correct Side, Site, Position Yes -Correct Procedure Yes -Procedure Performed Yes -Type of Procedure Debridement -Clinical Debridement Subcutaneous -Tissue Removed Subcutaneous -Post Debridement (cm) - Length 1 -Post Debridement (cm) - Width 0.2 -Post Debridement (cm) - Depth 0.1 -Total Square (Post) (cm) 0.2 -Area of Debridement (cm) - Length 1 -Area of Debridement (cm) - Width 0.2 -Total Square (Area) (cm) 0.2 -Tunneling No -Undermining/Tunneling No -Circular Undermining No -Wound/Ulcer Outcome Not Healed -Ulcer Cleansing Rinsed/ Irrigated with Saline -Foul Odor after Cleansing No -Bioengineered Tissue No -Bleeding Controlled with Pressure -Offloading No -Treatment Response Procedure Tolerated Well -Debridement - Subq, 1st 20sq cm Yes [See Physician Procedure note for Specifics] Pain Scale: 0-10 Numeric [Pain] -Is Patient Pain Free? Yes - Nurse 3 - General Ulcer D/C NN Start: 01/02/21 09:36 Freq: Status: Active Protocol: Activity Type Activity Date Activity User E-Sign Co-Sign Detail Recorded Client Recorded Date Recorded By Document 01/09/21 10:17 [email or web address] [id number] 01/09/21 10:18 GISELA 01/09/21 10:17 Wound Care Nurse 3 [Wound Dressing] #2 l Grt Toe Plantar -Ulcer Cleansing Rinsed/ Irrigated with Saline -Foul Odor after Cleansing No -Primary Dressing Applied C Hydrogel ($) -Primary Dressing Covered/Secured Dry Gauze, with Secured with Tape Pain Scale: 0-10 Numeric [Pain] -Is Patient Pain Free? Yes - Visit Discharge [Visit Discharge Information] -Discharge Condition Stable -Ambulatory Status Ambulatory -Transportation Private Auto -Medication Reconcilliation completed Yes & provided to patient/care provider -Clinical Summary of Care Provided Yes Musculoskeletal: - - Toe amputation right Neurological: - - Decrease in epicritic sensation Psych/Mental Status: Normal Affect, Appropriate Debridement Note Post-Debridement Measurements/Treatment - Nurse 2 - General Ulcer CM Notes Start: 01/02/21 09:36 Freq: Status: Active Protocol: Activity Type Activity Date Activity User E-Sign Co-Sign Detail Recorded Client Recorded Date Recorded By Document 01/02/21 10:17 [id number] 01/02/21 10:21 Document 01/09/21 10:09 [id number] 01/09/21 10:13 01/02/21 01/09/21 10:17 10:09 Wound Center Nurse 2 #2 l Grt Toe Plantar -Time 10:17 10:09 -Correct Patient Yes Yes -Correct Side, Site, Position Yes Yes -Correct Procedure Yes Yes -Procedure Performed Yes Yes -Type of Procedure Debridement Debridement -Clinical Debridement Subcutaneous Subcutaneous -Tissue Removed Subcutaneous Subcutaneous -Post Debridement (cm) - Length 0.8 1 -Post Debridement (cm) - Width 0.4 0.2 -Post Debridement (cm) - Depth 0.1 0.1 -Total Square (Post) (cm) 0.32 0.2 -Area of Debridement (cm) - Length 0.8 1 -Area of Debridement (cm) - Width 0.4 0.2 -Total Square (Area) (cm) 0.32 0.2 -Tunneling No No -Undermining/Tunneling No No -Circular Undermining No No -Wound/Ulcer Outcome Not Healed Not Healed -Ulcer Cleansing Rinsed/ Rinsed/ Irrigated with Irrigated with Saline Saline -Foul Odor after Cleansing No No -Bioengineered Tissue No No -Bleeding Controlled with Pressure Pressure -Offloading No No -Treatment Response Procedure Procedure Tolerated Well Tolerated Well -Debridement - Subq, 1st 20sq cm Yes Yes Pain Scale: 0-10 Numeric Is Patient Pain Free? Yes Yes - Nurse 3 - General Ulcer D/C NN Start: 01/02/21 09:36 Freq: Status: Active Protocol: Activity Type Activity Date Activity User E-Sign Co-Sign Detail Recorded Client Recorded Date Recorded By Document 01/02/21 10:23 GISELA [id number] 01/02/21 10:23 Document 01/09/21 10:17 [id number] 01/09/21 10:18 GISELA 01/02/21 01/09/21 10:23 10:17 Wound Care Nurse 3 #2 l Grt Toe Plantar -Ulcer Cleansing Rinsed/ Rinsed/ Irrigated with Irrigated with Saline Saline -Foul Odor after Cleansing No No -Primary Dressing Applied C Hydrogel ($) C Hydrogel ($) -Primary Dressing Covered/Secured with Dry Gauze, Dry Gauze, Secured with Secured with Tape Tape Pain Scale: 0-10 Numeric Is Patient Pain Free? Yes Yes WC - Visit Discharge Discharge Condition Stable Stable Ambulatory Status Ambulatory Ambulatory Transportation Private Auto Private Auto Medication Reconcilliation completed & Yes Yes provided to patient/care provider Clinical Summary of Care Provided Yes Yes Wound debrided: Hallux Laterality: Left Wound Grade/Stage: Bucio 1 Type of Debridement: Excisional debridement Anesthesia Used: 4% Lidocaine Solution Depth: in the subcutaneous layer Percentage of wound debrided: 100 Instrument Used: #15 blade Tissue Removed: Tissue removed includes fibrous, devitalized, biofilm, ron john,slough tissue Severity: Fat Layer Exposed Amount of bleeding with debridement: Mild Bleeding Controlled with: Pressure Patient tolerated procedure well Assessment/Plan Active Problems (Last Reviewed 12/15/20 @ 10:40 by Yudelka Bustos) Cellulitis of toe of left foot (Acute) Amputation of right great toe (Chronic) Skin ulcer of left great toe with fat layer exposed (Chronic) Osteomyelitis (Acute) Type 2 diabetes mellitus with diabetic polyneuropathy (Chronic) Assessment: left plantar hallux ulceration Bucio 1, previously bucio 3. History of acute osteomyelitis left great toe-resolved. diabetes with neuropathy. toe 1 and 2 amutation right foot Plan: Patient seen and examined. Ulceration site noted to have been improved. There is still callus buildup likely from patient walking on the foot with increased pressure. MRI obtained while in the hospital on 12/20/2020 demonstrated no evidence of osteomyelitis to the left hallux after treatment course of antibiotics. Blood flow studies reviewed. Venous studies showed patent deep veins. Arterial studies showed Right OSVALDO 1.08 and TBI 0.99 and left OSVADLO 1.02 and TBI 1.07 with bilateral triphasic pulses noted. This should prove adequate to allow healing. After verbal consent was obtained sharp excisional debridement was carried out which was well tolerated with patient's neuropathy. Patient has since finished course of antibiotics per Dr. Lorenzo after [facility] admission. Continue wound care daily. Continue offloading with offloaded surgical shoe or offloading pad is patient states that she does not tolerate the surgical shoe well. Reiterated patient the importance of offloading for wound healing. Discussed that the amount of callus buildup is suggestive of too much pressure to the ulcerative site. Discussed proper blood sugar control, diet, wo und care, and offloading to better allow healing. Discussed signs of infection to watch out for and to contact if any concerns arise. Patient educated on signs to watch out for and if seen patient contact doctor's office or go to the emergency room. All questions answered. Follow up 1 week. This note was generated with [employer] dictation software. It may contain incorrect words, spelling, and punctuation that were not noted in checking the note before signing.
[2021-01-16 08:46] VITALS: BP 152/95; PULSE 83; RESP 16; TEMP 36.6; BMI 41.4
--- NOTE | 2021-01-16 12:26 | PCM.WC.PN ---
(1) Skin ulcer of left great toe with fat layer exposed Status: Chronic Code(s): L97.522 - Non-pressure chronic ulcer of other part of left foot with fat layer exposed (2) Type 2 diabetes mellitus with diabetic polyneuropathy Status: Chronic Code(s): E11.42 - Type 2 diabetes mellitus with diabetic polyneuropathy (3) Cellulitis of toe of left foot Status: Acute Code(s): L03.032 - Cellulitis of left toe (4) Osteomyelitis Status: Acute Code(s): M86.9 - Osteomyelitis, unspecified (5) Amputation of right great toe Status: Chronic Code(s): S98.111A - Complete traumatic amputation of right great toe, initial encounter Type of Wound Date of Service: 01/16/21 Chief Complaint: left plantar hallux ulcer History of Wound: Patient is a 49 year old female who presents with plantar left hallux ulceration. She was previously seen in my office for management of this wound. At that time she also had cellulitis which was cultured showing coag negative staph with antibiotics on 10/10/20. Patient has been offloading with offloaded surgical shoe. Patient has been struggling with buildup of callus to ulcer site. 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 Patient was admitted to the hospital in October 2019 for worsening infection with early acute osteomyelitis noted on MRI to her left great toe. Patient was discharged at that time on doxycycline 6-week course per infectious disease. Patient was also noted during that hospital stay to have an SEUN from combination of vancomycin and IV dye contrast. Patient has recently finished dialysis with return of normal kidney function. After patient visit last week patient woke up the next morning with complaints of fever chills malaise and worsening of the wound. Patient seen in my office on 12/20/2020 at which point she was sent to emergency room for admittance from 12/20/2020 to 12/22/2020. New cultures were obtained and 12/20/2020 demonstrating strep agalactiae and strep epididymis. Blood work from this admission demonstrated a white blood cell count of 7.7, ESR of 18, hemoglobin A1c of 10.8 and CRP of 8.35. A new MRI was obtained of the left foot showing no further evidence of osteomyelitis of the hallux. Patient was seen by infectious disease and was discharged on oral antibiotics of cephalexin and doxycycline. Patient has since finished these. She relates that there has been some return of the redness since finishing the antibiotics Progress of Wound: Hallux ulcerations noted increase in erythema Subjective: Patient seen and examined resting comfortably. Patient relates the redness has come back to her hallux. Patient denies any nausea, fever, chills, chest pain, shortness of breath, cough, streaking, purulence, vomiting. - Physical Exam Vital Signs Temp Pulse Resp BP 97.9 F 83 16 152/95 H 01/16/21 08:46 01/16/21 08:46 01/16/21 08:46 01/16/21 08:46 General: Alert, Oriented x3 HEENT: Atraumatic Abdomen: Obese Extremities: No clubbing, No cyanosis, Capillary Refill Less than 3 Seconds, No Calf Tenderness, Edema - Hallux, Peripheral Pulses Normal Skin: Ulcer/ Wound - Left hallux. No malodor malodor, purulent. There is significant callus buildup with blood noted within the callus. Erythema has increased from last visit. Minor edema noted. Does not probe to bone. Granular base. Periwound maceration noted Wound Measurements and Assessment WC - Nurse 1 - General Ulcer Measurement Start: 01/02/21 09:36 Freq: Status: Active Protocol: Activity Type Activity Date Activity User E-Sign Co-Sign Detail Recorded Client Recorded Date Recorded By Document 01/16/21 08:46 [facility] [id number] 01/16/21 08:50 BMF 01/16/21 08:46 Wound Center Nurse 1 [Ulcer Assessment] #2 l Grt Toe Plantar -Combined with other wound No -Current Size (cm) - Length 1.2 -Current Size (cm) - Width 0.3 -Current Size (cm) - Depth 0.1 -Total Square Cm 0.36 -Photo Taken No -Epithelialization None Present -Tunneling No -Undermining/Tunneling No -Circular Undermining No -Exudate Amt Small -Exudate Type Serosanguineous -Wound Margin Distinct, Outline Attached -Granulation Amt Large (67-100%) -Granulation Quality Red -Slough/Fibrin Yes -Necrosis Amt Small (1-33%) -Necrotic Tissue Type Adherent Slough -Texture (Sherin-wound Skin Appearance) Assessed, Localized Edema ,Scarring -Moisture (Sherin-wound Skin Appearance Assessed ) -Color (Sherin-wound Skin Appearance) Assessed, Erythema -Temperature (Sherin-wound Skin Hot Appearance) -Tenderness on Palpation (Sherin-wound Yes Skin Appearance) -Ulcer Cleansing Rinsed/ Irrigated with Saline -Foul Odor after Cleansing No -Anesthetic Used 5% Lidocaine Gel EVIN - Nurse 2 - General Ulcer CM Notes Start: 01/02/21 09:36 Freq: Status: Active Protocol: Activity Type Activity Date Activity User E-Sign Co-Sign Detail Recorded Client Recorded Date Recorded By Document 01/16/21 09:13 [id number] 01/16/21 09:20 01/16/21 09:13 Wound Center Nurse 2 [Procedure/Treatment] -Time 09:14 -Correct Patient Yes -Correct Side, Site, Position Yes -Correct Procedure Yes -Procedure Performed Yes -Type of Procedure Debridement -Clinical Debridement Subcutaneous -Tissue Removed Subcutaneous -Post Debridement (cm) - Length 1.7 -Post Debridement (cm) - Width 1 -Post Debridement (cm) - Depth 0.1 -Total Square (Post) (cm) 1.7 -Area of Debridement (cm) - Length 1.7 -Area of Debridement (cm) - Width 1 -Total Square (Area) (cm) 1.7 -Tunneling No -Undermining/Tunneling No -Circular Undermining No -Wound/Ulcer Outcome Not Healed -Ulcer Cleansing Rinsed/ Irrigated with Saline -Foul Odor after Cleansing No -Bioengineered Tissue No -Bleeding Controlled with Pressure -Offloading No -Treatment Response Procedure Tolerated Well -Debridement - Subq, 1st 20sq cm Yes [See Physician Procedure note for Specifics] Pain Scale: 0-10 Numeric [Pain] -Is Patient Pain Free? Yes EVIN - Nurse 3 - General Ulcer D/C NN Start: 01/02/21 09:36 Freq: Status: Active Protocol: Activity Type Activity Date Activity User E-Sign Co-Sign Detail Recorded Client Recorded Date Recorded By Document 01/16/21 09:46 [facility] [id number] 01/16/21 09:46 [facility] 01/16/21 09:46 Wound Care Nurse 3 [Wound Dressing] #2 l Grt Toe Plantar -Ulcer Cleansing Rinsed/ Irrigated with Saline -Foul Odor after Cleansing No -Primary Dressing Applied Aquacel AG 4x4 -Primary Dressing Covered/Secured Dry Gauze, with Secured with Tape -[employer] 4x4 1 [Post Procedure Tolerated] -Treatment Response Procedure Tolerated Well Pain Scale: 0-10 Numeric [Pain] -Is Patient Pain Free? Yes - Visit Discharge [Visit Discharge Information] -Discharge Condition Stable -Ambulatory Status Ambulatory -Transportation Private Auto Musculoskeletal: - - Right toes amputation Neurological: - - Decrease in epicritic sensation Psych/Mental Status: Normal Affect, Appropriate Debridement Note Post-Debridement Measurements/Treatment - Nurse 2 - General Ulcer CM Notes Start: 01/02/21 09:36 Freq: Status: Active Protocol: Activity Type Activity Date Activity User E-Sign Co-Sign Detail Recorded Client Recorded Date Recorded By Document 01/02/21 10:17 [id number] 01/02/21 10:21 Document 01/09/21 10:09 [id number] 01/09/21 10:13 Document 01/16/21 09:13 [id number] 01/16/21 09:20 01/02/21 01/09/21 01/16/21 10:17 10:09 09:13 Wound Center Nurse 2 #2 l Grt Toe Plantar -Time 10:17 10:09 09:14 -Correct Patient Yes Yes Yes -Correct Side, Site, Position Yes Yes Yes -Correct Procedure Yes Yes Yes -Procedure Performed Yes Yes Yes -Type of Procedure Debridement Debridement Debridement -Clinical Debridement Subcutaneous Subcutaneous Subcutaneous -Tissue Removed Subcutaneous Subcutaneous Subcutaneous -Post Debridement (cm) - Length 0.8 1 1.7 -Post Debridement (cm) - Width 0.4 0.2 1 -Post Debridement (cm) - Depth 0.1 0.1 0.1 -Total Square (Post) (cm) 0.32 0.2 1.7 -Area of Debridement (cm) - Length 0.8 1 1.7 -Area of Debridement (cm) - Width 0.4 0.2 1 -Total Square (Area) (cm) 0.32 0.2 1.7 -Tunneling No No No -Undermining/Tunneling No No No -Circular Undermining No No No -Wound/Ulcer Outcome Not Healed Not Healed Not Healed -Ulcer Cleansing Rinsed/ Rinsed/ Rinsed/ Irrigated with Irrigated with Irrigated with Saline Saline Saline -Foul Odor after Cleansing No No No -Bioengineered Tissue No No No -Bleeding Controlled with Pressure Pressure Pressure -Offloading No No No -Treatment Response Procedure Procedure Procedure Tolerated Well Tolerated Well Tolerated Well -Debridement - Subq, 1st 20sq cm Yes Yes Yes Pain Scale: 0-10 Numeric Is Patient Pain Free? Yes Yes Yes - Nurse 3 - General Ulcer D/C NN Start: 01/02/21 09:36 Freq: Status: Active Protocol: Activity Type Activity Date Activity User E-Sign Co-Sign Detail Recorded Client Recorded Date Recorded By Document 01/02/21 10:23 [id number] 01/02/21 10:23 Document 01/09/21 10:17 [id number] 01/09/21 10:18 Document 01/16/21 09:46 [facility] [id number] 01/16/21 09:46 [facility] 01/02/21 01/09/21 01/16/21 10:23 10:17 09:46 Wound Care Nurse 3 #2 l Grt Toe Plantar -Ulcer Cleansing Rinsed/ Rinsed/ Rinsed/ Irrigated with Irrigated with Irrigated with Saline Saline Saline -Foul Odor after Cleansing No No No -Primary Dressing Applied C Hydrogel ($) C Hydrogel ($) Aquacel AG 4x4 -Primary Dressing Covered/Secured with Dry Gauze, Dry Gauze, Dry Gauze, Secured with Secured with Secured with Tape Tape Tape -Aquacel AG 4x4 1 Treatment Response Procedure Tolerated Well Pain Scale: 0-10 Numeric Is Patient Pain Free? Yes Yes Yes - Visit Discharge Discharge Condition Stable Stable Stable Ambulatory Status Ambulatory Ambulatory Ambulatory Transportation Private Auto Private Auto Private Auto Medication Reconcilliation completed & Yes Yes provided to patient/care provider Clinical Summary of Care Provided Yes Yes Wound debrided: Hallux Laterality: Left Wound Grade/Stage: Bucio 1 Type of Debridement: Excisional debridement Anesthesia Used: 4% Lidocaine Solution Depth: in the subcutaneous layer Percentage of wound debrided: 100 Instrument Used: #15 blade Tissue Removed: Tissue removed includes fibrous, devitalized, biofilm, and slough tissue Severity: Fat Layer Exposed Amount of bleeding with debridement: Mild Bleeding Controlled with: Pressure Patient tolerated procedure well Assessment/Plan Active Problems (Last Reviewed 12/15/20 @ 10:40 by Yudelka Bustos) Cellulitis of toe of left foot (Acute) Amputation of right great toe (Chronic) Skin ulcer of left great toe with fat layer exposed (Chronic) Osteomyelitis (Acute) Type 2 diabetes mellitus with diabetic polyneuropathy (Chronic) Assessment: left plantar hallux ulceration Bucio 1, previously bucio 3. Cellulitis left hallux. History of acute osteomyelitis left great toe-resolved. diabetes with neuropathy. toe 1 and 2 amutation right foot Plan: Patient seen and examined. Ulceration site noted to have been worsening with increased erythema since patient finished antibiotic course. This is consistent with return of cellulitis. There is still callus buildup likely from patient walking on the foot with increased pressure. New culture was obtained today. Patient was also started on Keflex and doxycycline based on cultures from recent admission. We will adjust if needed as cultures result. Patient also had a hemoglobin A1c ordered. We will begin work-up for hyperbaric oxygen therapy as a potential treatment modality for the patient. Other work-up labs and tests were recently ordered during hospital visit. MRI obtained while in the hospital on 12/20/2020 demonstrated no evidence of osteomyelitis to the left hallux after treatment course of antibiotics. Blood flow studies reviewed. Venous studies showed patent deep veins. Arterial studies showed Right OSVALDO 1.08 and TBI 0.99 and left OSVALDO 1.02 and TBI 1.07 with bilateral triphasic pulses noted. This should prove adequate to allow healing. After verbal consent was obtained sharp excisional debridement was carried out which was well tolerated with patient's neuropathy. Continue wound care daily with silver dressing. Continue offloading with offloaded surgical shoe or offloading pad is patient states that she does not tolerate the surgical shoe well. Reiterated patient the importance of offloading for wound healing. Discussed that the amount of callus buildup is suggestive of too much pressure to the ulcerative site. Discussed proper blood sugar control, diet, wound care, and offloading to better allow healing. Discussed signs of infection to watch out for and to contact if any concerns arise. Patient educated on signs to watch out for and if seen patient contact doctor's office or go to the emergency room. All questions answered. Follow up 1 week. This note was generated with [employer] dictation software. It may contain incorrect words, spelling, and punctuation that were not noted in checking the note before signing. The problems addressed require a low medical decision making level which includes two or more minor problems, a stable chronic illness, or an acute uncomplicated illness or injury.
[2021-01-16 18:10] LABS: M R Staph aureus DNA By PCR Negative (Negative); Probe Check PASS; Staph aureus DNA By PCR POSITIVE (Negative)
[2021-01-23 09:00] VITALS: BP 156/89; PULSE 90; RESP 16; TEMP 36; BMI 41.4
[2021-01-24 11:09] VITALS: BP 153/88; PULSE 96; RESP 16; TEMP 36.8; BMI 41.4
--- NOTE | 2021-01-24 13:09 | PCM.PROGNOTE ---
Subjective Subjective: progress note for HBO consult Objective Data Objective Data She currently has a DFU torres 3 of the L foot a including the toes She has been following standard wound care and it is failing so will try HBO along with wound care She still needs to repeat her EKG because it on its date and she is to repeat her A1c because it was while she was on prednisone and in the hospital. It was >10 She will start at 2 EVY no breaks once a day for 30 days to start Vital Signs: Vital Signs Temp Pulse Resp BP 98.2 F 96 16 153/88 H 01/24/21 11:09 01/24/21 11:09 01/24/21 11:09 01/24/21 11:09 Oxygen Delivery Method Room Air Body Mass Index (BMI) 41.4 Finger Stick Blood Glucose 159 Lab / Micro Data Micro: Microbiology 01/16/21 Unknown Wound Abcess - Toe Gram Stain - Final 01/16/21 Unknown Wound Abcess - Toe Wound Culture - Final Streptococcus agalactiae (B) Staphylococcus aureus 01/16/21 Unknown Wound Abcess - Toe Anaerobic Culture - Preliminary Checking for anaerobes, further studies to follow. Physical Exam Const alert and oriented x3 HEENT head/scalp atraumatic Eyes PERRL Neck supple Lymph Lymphatic: no lymphadenopathy noted Resp normal respiratory effort Cardio regular rate, regular rhythm and S1 normal heart sound GI normal to inspection, nondistended, normoactive bowel sounds, soft to palpation and non-tender Palpation: Negative for guarding Extremity no clubbing, cyanosis or edema Skin Wounds: wounds noted Neuro CN's II-XII intact bilaterally Psych affect normal Assessment & Plan Assessment/Plan (1) Non-pressure chronic ulcer of other part of left foot with fat layer exposed: Status: Chronic Code(s): L97.522 - Non-pressure chronic ulcer of other part of left foot with fat layer exposed Plan: progression after receiving all information and submitting to INS for approval (2) Cellulitis of toe of left foot: Status: Acute Code(s): L03.032 - Cellulitis of left toe (3) Skin ulcer of left great toe with fat layer exposed: Status: Chronic Code(s): L97.522 - Non-pressure chronic ulcer of other part of left foot with fat layer exposed (4) Diabetic foot ulcer: Status: Acute Code(s): E11.621 - Type 2 diabetes mellitus with foot ulcer; L97.509 - Non-pressure chronic ulcer of other part of unspecified foot with unspecified severity Qualifiers: Diabetic foot ulcer location: toe Diabetes mellitus type: type 2 Laterality: left Non-pressure ulcer stage: with muscle involvement without evidence of necrosis Qualified Code(s): E11.621 - Type 2 diabetes mellitus with foot ulcer; L97.525 - Non-pressure chronic ulcer of other part of left foot with muscle involvement without evidence of necrosis (5) Osteomyelitis: Status: Acute Code(s): M86.9 - Osteomyelitis, unspecified Qualifiers: Osteomyelitis type: subacute Osteomyelitis location: foot Laterality: left Qualified Code(s): M86.272 - Subacute osteomyelitis, left ankle and foot
--- NOTE | 2021-01-24 13:27 | EKG12_ITS ---
Test Reason : HYPERBARIC CLEARANCE Blood Pressure : / mmHG Vent. Rate : 090 BPM Atrial Rate : 090 BPM P-R Int : 140 ms QRS Dur : 080 ms QT Int : 376 ms P-R-T Axes : 030 052 048 degrees QTc Int : 459 ms Normal sinus rhythm Normal ECG Confirmed by KITTY SEGOVIA, [place] ([id number]), editor school photograph AMI TOUSSAINT ([id number]) on 01/25/2021 9:18:30 AM Referred By: LOGAN Confirmed By:CHEYENNE TANG MD
--- NOTE | 2021-01-24 15:24 | PCM.WC.PN ---
History of Present Illness Date of Service: 01/23/21 Chief Complaint: left plantar hallux ulcer infection History of Wound: Patient is a 49 year old female who presents with plantar left hallux ulceration. Patient has had multiple previous infections to this wound. Patient has had both cellulitis and osteomyelitis noted to this wound. She has been hospitalized for this on multiple occasions. She has been following up with infectious disease with Dr. Lorenzo for management. 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 She would not like to lose this toe. Patient has been offloading with offloaded surgical shoe or cam boot. Patient has been struggling with buildup of callus to ulcer site. 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 Patient was most recently admitted to the hospital in November 2019 for worsening infection. During admission in October 2019 patient was also noted during that hospital stay to have an SEUN from combination of vancomycin and IV dye contrast. Patient has recently finished dialysis with return of normal kidney function. Patient seen in my office on 12/20/2020 at which point she was sent to emergency room for admittance from 12/20/2020 to 12/22/2020. New cultures were obtained and 12/20/2020 demonstrating strep agalactiae and strep epididymis. Blood work from this admission demonstrated a white blood cell count of 7.7, ESR of 18, hemoglobin A1c of 10.8 and CRP of 8.35. A new MRI was obtained of the left foot showing no further evidence of osteomyelitis of the hallux. Patient was seen by infectious disease and was discharged on oral antibiotics of cephalexin and doxycycline. After finishing these antibiotics symptoms have returned. Patient was restarted on antibiotics. New cultures were obtained. Subjective Subjective: Patient is resting comfortably and denies any new pedal complains. Patient denies any nausea, fever, vomiting, chills, chest pain, shortness of breath, streaking, or purulence. Patient relates that wound is still present with redness noted to her toe. She states that there is some improvement in the swelling. She is still having some pain. She is concerned about infection. Objective Data Objective Data Vital Signs: Vital Signs Temp Pulse Resp BP 98.2 F 96 16 153/88 H 01/24/21 11:09 01/24/21 11:09 01/24/21 11:09 01/24/21 11:09 Oxygen Delivery Method Room Air Body Mass Index (BMI) 41.4 Finger Stick Blood Glucose 159 Lab / Micro Data Micro: Microbiology 01/16/21 Unknown Wound Abcess - Toe Gram Stain - Final 01/16/21 Unknown Wound Abcess - Toe Wound Culture - Final Streptococcus agalactiae (B) Staphylococcus aureus 01/16/21 Unknown Wound Abcess - Toe Anaerobic Culture - Final Prevotella bivia Assessment & Plan Assessment/Plan (1) Non-pressure chronic ulcer of other part of left foot with fat layer exposed: Status: Chronic Code(s): L97.522 - Non-pressure chronic ulcer of other part of left foot with fat layer exposed (2) Cellulitis of toe of left foot: Status: Acute Code(s): L03.032 - Cellulitis of left toe (3) Type 2 diabetes mellitus with diabetic polyneuropathy: Status: Chronic Code(s): E11.42 - Type 2 diabetes mellitus with diabetic polyneuropathy (4) Abscess of left great toe: Status: Acute Code(s): L02.612 - Cutaneous abscess of left foot (5) Osteomyelitis: Status: Resolved Code(s): M86.9 - Osteomyelitis, unspecified Qualifiers: Laterality: left Osteomyelitis location: foot Osteomyelitis type: subacute Qualified Code(s): M86.272 - Subacute osteomyelitis, left ankle and foot (6) Amputation of right great toe: Status: Chronic Code(s): S98.111A - Complete traumatic amputation of right great toe, initial encounter Plan: Assessment: left plantar hallux ulceration Bucio 3. Cellulitis/abscess left hallux. History of acute osteomyelitis left great toe diabetes with neuropathy and ulceration. toe 1 and 2 amputation right foot Plan: Patient seen and examined. Ulceration site noted to have consistent erythema and edema. Slight diminishment of edema noted. Again drainage noted underneath the callus Consistent with an abscess. Cultures from 01/16/2021 demonstrated Streptococcus agalactiae and Staph aureus as well as Prevotella Bivia. I discussed case with Dr. Lorenzo for continued antibiotic management. Patient keeps getting signs of infection. Patient has possibility of remaining underlying infection. It was determined that patinet should be started on augmentin PO 250mg 125mg for 7 days. This was sent to patient's pharmacy Patient also had a hemoglobin A1c 12/21/2020 was 10.8. Albumin 12/21/20 of 2/6. CRP 12/20/20 of 8.35 During recent inpatient admission for reoccuring infection to her hallux wound patient saw the hospital legal billing clerk on 12/20/20 where dietary counseling was given to address low albumin and high blood sugar to better optimize patient for healing. We will begin work-up for hyperbaric oxygen therapy as a potential treatment modality for the patient. Other work-up labs and tests were recently ordered during hospital visit. MRI obtained while in the hospital on 12/20/2020 demonstrated no evidence of osteomyelitis to the left hallux but did show swelling and cellulitis after treatment course of antibiotics. Patient is noted to have recurrent signs of infection to the hallux consistent with infection. There is concern the infection could have reinfected the bone. Blood flow studies reviewed. Venous studies showed patent deep veins. Arterial studies showed Right OSVALDO 1.08 and TBI 0.99 and left OSVALDO 1.02 and TBI 1.07 with bilateral triphasic pulses noted. This should prove adequate to allow healing. After verbal consent was obtained sharp excisional debridement was carried out which was well tolerated with patient's neuropathy. Continue wound care daily with silver dressing. Continue offloading with offloaded surgical shoe or offloading pad is patient states that she does not tolerate the surgical shoe well. Patient presents today in offloaded cam boot that she said she was able to find at home. The offloaded CAM boot is also a valid offloading option for the patient. Reiterated patient the importance of offloading for wound healing. Discussed that the amount of callus buildup is suggestive of too much pressure to the ulcerative site. Discussed proper blood sugar control, diet, wound care, and offloading to better allow healing. Discussed signs of infection to watch out for and to contact if any concerns arise. Patient educated on signs to watch out for and if seen patient contact doctor's office or go to the emergency room. Patient to finish course of antibiotics. Patient has a diabetic foot ulceration that has failed to show mesureable signs of healing after completing 30 consecutive days of standard wound care. We will discuss to see if patient might be a potential candidate for hyperbaric oxygen therapy. This would include further work up with labs, imaging, and clearance consultation. If patient is approved for hyperbaric oxygen therapy our goals would be to get progression and healing of patient's wounds while continuing regular debridements, monitoring, offloading, medical optimizing and monitoring. All questions answered. Follow up 1 week. This note was generated with [employer] dictation software. It may contain incorrect words, spelling, and punctuation that were not noted in checking the note before signing. The problems addressed require a low medical decision making level which includes two or more minor problems, a stable chronic illness, or an acute uncomplicated illness or injury. Physical Exam Const alert and no apparent distress General Appearance: cooperative and comfortable HEENT Head and Scalp: atraumatic Lymph Lymphatic: no lymphedema noted Resp normal respiratory effort Effort and Inspection: able to speak in complete sentences Cardio Peripheral Pulses: posterior tibial pulses present bilateral diminished and dorsalis pedis pulses present bilateral diminished Extremity normal capillary refill and no calf tenderness General Extremity: edema bilateral lower extremity, no tenderness to palpation of joints or extremities and other findings Other Details: Ambulating in offloaded cam boot ; Negative for clubbing or cyanosis Peripheral Pulses: Yes posterior tibial pulses present bilateral diminished and dorsalis pedis pulses present bilateral diminished Right Lower Extremity: foot and digits Positive for other (Amputation noted to toes without signs of infection well-healed) Skin General Skin Exam: Negative for ecchymosis, eschar or pallor Wounds: amputation other toe and wounds noted Wound Narrative: ulcers noted to left medial hallux. No malodor, probing to bone, streaking, fluctuation, crepitus. Skin is atrophic and hairless. Surrounding callus tissue noted. Granular base with surrounding maceration. Patient has had recurrent erythema with cellulitis/abscess noted to ulceration. Overlying skin callus is not allowing wound to drain. Neuro Gait (Neuro): normal gait Sensory Exam: extremities light-touch: decreased Motor Exam: strength 5/5 throughout Psych Appearance: appropriate Attitude: calm
== END 2021-01-26 23:59 ==
LOC: WC 11:15
PROVIDERS: PCP Internal Medicine; Visit Provider Podiatrist Foot & Ankle Surgery
DX: E11.621 Type 2 diabetes mellitus with foot ulcer (principal); L97.522 Non-pressure chronic ulcer of other part of left foot with fat layer exposed; L97.525 Non-pressure chronic ulcer of other part of left foot with muscle involvement without evidence of necrosis; E11.42 Type 2 diabetes mellitus with diabetic polyneuropathy; L03.032 Cellulitis of left toe; M86.272 Subacute osteomyelitis, left ankle and foot; E66.9 Obesity, unspecified; Z89.411 Acquired absence of right great toe; Z89.421 Acquired absence of other right toe(s)
CPT/HCPCS: 11042; 87070; 87075; 87077; 87186; 87205; 87640; 93005; 99212; G0463

== ENCOUNTER 2021-02-02 16:04 | Emergency (ER) | payer MEDICARE, MEDICAID, SELFPAY ==
[2021-01-30 08:45] VITALS: BMI 41.4
[2021-02-02 16:05] VITALS: BP 139/72; PULSE 85; RESP 16; TEMP 36.3; O2SAT 95; BMI 39.2
[2021-02-02 16:43] VITALS: BP 139/72; PULSE 85; RESP 16; TEMP 36.3; O2SAT 95
--- NOTE | 2021-02-02 16:57 | ED.VIS.LOWEX ---
HPI History of Present Illness Chief Complaint: Wound Narrative Narrative: 50-year-old female presenting with left great toe pain. She states she has history of osteomyelitis on the right foot and has previously been seen by Dr. Haylee Guillen and wound care for monitoring of the left great toe. She states he is currently on Augmentin and has multiple antibiotic allergies. She states that her left great toe is getting worse. She has not talked to her housekeeping coordinator about this. She does go to wound care every Friday. She states she feels nauseous but she does not have any fever, chills, vomiting, diarrhea, constipation. She feels that she is nauseous because her toe was more infected. She states it is not painful. [facility] Medical History SEUN (acute kidney injury) Chronic ulcer of right foot with fat layer exposed Depression with anxiety Diabetic foot ulcer Fibromyalgia Hyperlipidemia Meniere disease Obesity (BMI 30-39.9) Osteomyelitis Osteomyelitis of second toe of right foot Osteomyelitis of toe of right foot Presence of permanent central venous catheter Skin ulcer of left great toe with fat 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 Vascular catheter fitting or adjustment Vertigo Home Medications albuterol sulfate 1 - 2 puff INHALATION Q6H PRN PRN 08/30/19 [History Last Taken 11/08/20] atorvastatin 80 mg PO DAILY 08/30/19 [History Last Taken 12/19/20] dulaglutide 0.75 mg SQ WE 08/30/19 [History Last Taken 12/13/20] duloxetine 60 mg PO DAILY@1800 03/21/20 [History Last Taken 12/19/20] multivitamin with minerals 1 tab PO DAILY 03/21/20 [History Last Taken 12/20/20] pregabalin 100 mg PO BID 03/21/20 [History Last Taken 12/20/20] ergocalciferol (vitamin D2) 50,000 unit PO WE 10/17/20 [History Last Taken 12/20/20] insulin degludec 100 unit SQ DAILY 10/17/20 [History Last Taken 12/20/20] levothyroxine 50 mcg PO DAILY 11/11/20 [History Last Taken 12/20/20] pantoprazole 20 mg PO BID 11/11/20 [History Last Taken 12/20/20] acetaminophen 1,300 mg PO DAILY PRN PRN 12/08/20 [History Last Taken Unknown] biotin 5,000 mcg SL DAILY 12/08/20 [History Last Taken 12/20/20] hydroxyzine pamoate 100 mg PO QHS PRN 12/08/20 [History Last Taken 12/19/20] losartan 50 mg PO DAILY 12/08/20 [History Last Taken 12/20/20] amlodipine 10 mg PO DAILY 12/20/20 [History Last Taken 12/20/20] trazodone 100 mg PO QHS 12/20/20 [History Last Taken 12/19/20] amoxicillin-pot clavulanate 1 tab PO BID 02/02/21 [History Last Taken Unknown] sulfamethoxazole-trimethoprim [Bactrim DS] 1 tab PO Q12H #20 tab 02/02/21 [Rx Last Taken Unknown] Allergy/AdvReac Type Severity Reaction Status Date / Time clindamycin Allergy Hives Verified 02/02/21 16:09 erythromycin base Allergy Hives Verified 02/02/21 16:09 [From E-Mycin] vancomycin Allergy Hives Verified 02/02/21 16:09 Gadolinium-MRI Contrast AdvReac NEEDS Verified 02/02/21 16:09 Medium FOLLOW-UP [CONTRAST] Iodinated Contrast Media AdvReac NEEDS Verified 02/02/21 16:09 [CONTRASTS] FOLLOW-UP Social History Smoking Status: Current every day smoker ROS ROS ED Constitutional Constitutional ED: Denies chills, fever(s) or sweats Eyes Eyes: Denies blurry vision or change in vision ENT ENT ED: Denies ear pain or sore throat Cardiovascular Cardiovascular: Denies chest pain, palpitations or racing heartbeat Respiratory/Chest Respiratory/Chest: Denies cough, dyspnea or sputum Gastrointestinal Gastrointestinal: Reports nausea; Denies abdominal pain, constipation, diarrhea or vomiting Genitourinary Genitourinary ED: Denies dysuria, hematuria or urinary frequency Musculoskeletal Musculoskeletal: Denies arthralgias, myalgias or neck pain Integumentary Reports other Details: Erythema of left great toe. Wound on plantar surface of left great toe. ; Denies abscess, Abrasions or rash Neurologic Neurologic: Denies headache(s), paresthesias or weakness Psychiatric Psychiatric: Denies anxiety, depression, suicidal ideation or suicidal thoughts Endocrine Endocrinology: Denies polydipsia or polyuria EXAM Physical Exam Const Vital Signs: 02/02/21 16:05 02/02/21 16:43 Temperature 97.3 F L 97.3 F L Temperature Source Temporal Temporal Pulse Rate 85 85 Respiratory Rate 16 16 Blood Pressure 139/72 H 139/72 H Blood Pressure Mean 94 94 Pulse Ox 95 95 Oxygen Delivery Method Room Air Room Air General Appearance ED: Negative for pallor HEENT Reports normocephalic, head/scalp atraumatic and moist mucous membranes Eyes PERRL and EOMs intact bilaterally Neck no lymphadenopathy and supple Chest Wall inspection of chest normal and palpation of chest normal Resp normal respiratory effort and clear to auscultation bilaterally Auscultation: Negative for rales, rhonchi or wheezes Cardio regular rate and regular rhythm GI normal to inspection, nondistended, normoactive bowel sounds and non-distended Auscultation: normoactive bowel sounds Palpation: soft Narrative: Deferred Back/Spine no CVA tenderness General Back: Negative for CVA tenderness Cervical Spine: Negative for cervical spine tenderness Extremity normal to inspection General Extremety ED: Yes edema and tenderness General Extremity: edema Left Lower Extremity: foot and digits Positive for inspection (Erythema over left great toe. There is a small area of superficial ulceration on the left great toe. There is no drainage present. There is no tenderness to palpation. No crepitance palpated.) Neuro oriented x3 and CN's II-XII intact bilaterally Sensorium / Orientation: alert Motor Exam: strength 5/5 throughout Psych mental status grossly normal Attitude: No agitated Skin no rashes or lesions noted and no wounds General Skin Exam: Negative for jaundice or pallor MDM MDM MDM Narrative Medical decision making narrative: Patient presenting with left toe erythema. She is on Augmentin currently. Patient has not talked to her housekeeping coordinator before coming. Patient has not had any systemic signs or symptoms other than nausea. Her lab work today shows a leukocytosis white blood cell count of 9.0 without left shift. Hemoglobin hematocrit are stable. Electrolytes and renal function are normal. Sed rate is 23. CRP is 6.25. Left foot x-ray as interpreted by myself shows no acute bony abnormalities. Radiology does agree. I did speak with Dr. Guillen who recommended changing the patient's medication to Bactrim. At this point I do not believe that she needs to be admitted and neither does Dr. Guillen. She has an appointment with Dr. Guillen on Friday and is urged to make this. If she has any new or worsening symptoms she will return. Lab Data Attestation: I reviewed the patient's lab results. Labs: Laboratory Results - last 24 hr 02/02/21 02/02/21 17:05 17:05 WBC 9.0 RBC 4.52 Hgb 13.0 Hct 39.9 MCV 88.3 MCH 28.8 MCHC 32.6 RDW Std Deviation 45.4 H RDW Coeff of [place] 14.0 Plt Count 284 MPV 9.5 Immature Gran % (Auto) 0.300 Neut % (Auto) 56.8 Lymph % (Auto) 31.6 [place] % (Auto) 8.0 Eos % (Auto) 2.7 Baso % (Auto) 0.6 Absolute Neuts (auto) 5.1 Absolute Lymphs (auto) 2.83 Nucleated RBC % 0 ESR 23 Sodium 138 Potassium 3.8 Chloride 106 Carbon Dioxide 27.0 Anion Gap 5 BUN 18 Creatinine 0.79 Estim Creat Clear Calc 77.51 Est GFR (MDRD) Af Amer 100 Est GFR (MDRD) Non-Af 83 BUN/Creatinine Ratio 22.9 H Glucose 177 H Calcium 8.9 Total Bilirubin 0.40 AST 6 L ALT 18 Alkaline Phosphatase 118 H C-React Prot Ext Range 6.25 H Total Protein 7.1 Albumin 3.4 Globulin 3.7 Albumin/Globulin Ratio 0.9 Radiography Diagnostic Testing: Radiology Impression Foot X-Ray 02/02/21 17:12 IMPRESSION: No acute or focal abnormalities in the foot. Electronically Signed: Ashley Shannon MD at 17:33 EDT Tel , Service support , Discharge Plan Triage Chief Complaint: Wound ED Provider: Greg Aleman Dx/Rx/DC Orders Instructions: Diabetic Foot Ulcers Prescriptions: New sulfamethoxazole-trimethoprim [Bactrim DS] 800-160 mg tablet 1 tab PO Q12H Qty: 20 RF: 0 No Action dulaglutide 0.75 MG/0.5 ML pen injector 0.75 mg SQ WE RF: 0 atorvastatin 80 MG tablet 80 mg PO DAILY RF: 0 albuterol sulfate 1 INHALER inhaler 1 - 2 puff inhalation Q6H PRN PRN (Reason: Sob &/Or Wheezing) RF: 0 multivitamin with minerals 1 EACH tablet 1 tab PO DAILY RF: 0 duloxetine 60 MG capsule,delayed release(DR/EC) 60 mg PO DAILY@1800 RF: 0 pregabalin 100 MG capsule 100 mg PO BID RF: 0 ergocalciferol (vitamin D2) 50,000 UNIT capsule 50,000 unit PO WE RF: 0 insulin degludec 100 UNIT/ML insulin pen 100 unit SQ DAILY RF: 0 levothyroxine 25 MCG tablet 50 mcg PO DAILY RF: 0 pantoprazole 20 MG tablet 20 mg PO BID RF: 0 losartan 50 MG tablet 50 mg PO DAILY RF: 0 hydroxyzine pamoate 100 MG capsule 100 mg PO QHS PRN (Reason: Anxiety) RF: 0 acetaminophen 650 MG tablet extended release 1,300 mg PO DAILY PRN PRN (Reason: Pain 1-10 Or Fever) RF: 0 biotin 5,000 MCG tablet, sublingual 5,000 mcg SL DAILY RF: 0 trazodone 100 MG tablet 100 mg PO QHS RF: 0 amlodipine 10 MG tablet 10 mg PO DAILY RF: 0 amoxicillin-pot clavulanate 250-125 mg tablet 1 tab PO BID RF: 0 Primary Care Provider: Shirley Garcia Referrals: Shirley Garcia MD [Primary Care Provider] - Disposition Disposition: Home, self care Discharge Date/Time: 02/02/21 19:46
--- NOTE | 2021-02-02 17:12 | RAD_ITS ---
STUDY: X-RAY - LEFT FOOT CLINICAL: Female, 50 years old. great toe pain TECHNIQUE: 3 view(s) of the foot. COMPARISON: None. FINDINGS: Normal talus, calcaneus, and tarsal bones. There are minor age-related changes. Normal visualized subtalar, talonavicular, calcaneocuboid, tarsal and tarsometatarsal articulations. Normal metatarsi. Normal metatarsophalangeal joint of the great toe. Normal tibial and fibular sesamoid bones. Normal interphalangeal joint of the great toe. Normal phalanges of the great toe. Normal second through fifth metatarsophalangeal joints. Normal interphalangeal joints and phalanges of the lesser toes. The soft tissue structures are unremarkable. RAD/Foot min 3 Views IMPRESSION: No acute or focal abnormalities in the foot. Electronically Signed: Ashley Shannon MD at 17:33 EDT Tel , Service support ,
[2021-02-02 17:14] LABS: Absolute Lymphocyte Count 2.83 X10^3/uL (0.83-4.51); Absolute Neutrophil Count 5.1 X10^3/uL (2.0-7.7); Basophil# 0.05 X10^3/uL; Basophil% 0.6 % (0-1); Eosinophil# 0.24 X10^3/uL; Eosinophils% 2.7 % (0-5); Hematocrit 39.9 % (37-47); Lymphocyte # 2.83 X10^3/ul (0.83-4.51); Lymphocyte % 31.6 % (19-41); Mean Corp Hgb Conc 32.6 g/dL (32-36); Mean Corpuscular Hgb 28.8 pg (27.0-32.0); Mean Corpuscular Volume 88.3 fL (81-99); Mean Platelet Vol. 9.5 fl (6.2-12.0); Monocyte# 0.72 X10^3/uL; NRBC Flagged by Analyzer 0 % (0-5); Neutrophil # 5.09 X10^3/uL (2.7-7.7); Neutrophil % 56.8 % (47-70); Platelet Count 284 K/mm3 (150-450); RBC Distribution Width SD 45.4 fl (35.1-43.9); Red Blood Count 4.52 M/mm3 (4.2-5.4)
[2021-02-02 17:30] LABS: ALB/GLOB Ratio 0.9 RATIO (0.9-2.4); AST(SGOT) 6 U/L (15-37); Alanine Aminotransfer ALT/SGPT 18 U/L (13-56); Albumin, Serum 3.4 g/dL (3.2-5.0); Alkaline Phosphatase 118 U/L (45-117); Anion Gap 5 (5-15); BUN 18 mg/dL (7-18); BUN/Creat Ratio 22.9 RATIO (10-20); CRP 6.25 mg/L (0.0-3.0); Calcium,Total 8.9 mg/dL (8.5-10.1); Chloride 106 mmol/L (98-107); Creatinine, Serum 0.79 mg/dL (0.55-1.02); EST Glomerular Filtration Rate 83 mL/min (>60); Est Glom Filt Rate - Afr Amer 100 mL/min (>60); Estimated Creatinine Clearance 77.51 ml/min; Globulin 3.7 g/dL (2.2-4.2); Glucose 177 mg/dL (74-106); Potassium 3.8 mmol/L (3.5-5.1); Protein, Total 7.1 g/dL (6.4-8.2); Sodium Level 138 mmol/L (136-145)
[2021-02-02 17:39] LABS: Erythrocyte Sedimentation Rate 23 mm/hr (0-30)
== END 2021-02-02 19:46 | disposition home or self-care (01) ==
PROVIDERS: Emergency Provider Student in an Organized Health Care Education/Training Program; PCP Internal Medicine
DX: E11.621 Type 2 diabetes mellitus with foot ulcer (principal); L97.529 Non-pressure chronic ulcer of other part of left foot with unspecified severity; E66.9 Obesity, unspecified; F17.200 Nicotine dependence, unspecified, uncomplicated; E78.5 Hyperlipidemia, unspecified; Z79.4 Long term (current) use of insulin
CPT/HCPCS: 73630; 80053; 85025; 85652; 86140; 99282

== ENCOUNTER 2021-02-23 08:30 | Outpatient (RCR) | payer MEDICARE, MEDICAID, SELFPAY ==
[2021-01-27 00:41] VITALS: BP 153/88; PULSE 96; RESP 16; TEMP 36.8
[2021-01-30 08:45] VITALS: BP 150/78; PULSE 95; RESP 16; TEMP 36.5; BMI 41.4
--- NOTE | 2021-01-30 12:09 | PN.PCM_ITS ---
History of Present Illness Date of Service: 01/30/21 Chief Complaint: left plantar hallux ulcer infection History of Wound: Patient is a 49 year old female who presents with plantar left hallux ulceration. Patient has had multiple previous infections to this wound. Patient has had both cellulitis and osteomyelitis noted to this wound. She has been hospitalized for this on multiple occasions. She has been following up with infectious disease with Dr. Lorenzo for management. 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 She would not like to lose this toe. Patient has been offloading with offloaded surgical shoe or cam boot. Patient has been struggling with buildup of callus to ulcer site. 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 Patient was most recently admitted to the hospital in November 2019 for worsening infection. During admission in October 2019 patient was also noted during that hospital stay to have an SEUN from combination of vancomycin and IV dye contrast. Patient has recently finished dialysis with return of normal kidney function. Patient seen in my office on 12/20/2020 at which point she was sent to emergency room for admittance from 12/20/2020 to 12/22/2020. Cultures were obtained and 12/20/2020 demonstrating strep agalactiae and strep epididymis. Blood work from this admission demonstrated a white blood cell count of 7.7, ESR of 18, hemoglobin A1c of 10.8 and CRP of 8.35. A new MRI was obtained of the left foot showing no further evidence of osteomyelitis of the hallux. Patient was seen by infectious disease and was discharged on oral antibiotics of cephalexin and doxycycline. After finishing these antibiotics symptoms have returned. Cultures obtained 01/16/21 grew prevotella bivia, MSSA, and strep agalactiae. Discussion was had with Dr. Lorenzo who recommended Augmentin for patient treatment course. This was prescribed and patient is currently taking. Progress of Wound: unchanged, still showing signs of cellulitis Subjective Subjective: Patient seen and examined resting comfortably. Patient denies any new pedal complaints. Patient denies any nausea, fever, chills, chest pain, shortness of breath, cough, streaking, purulence, vomiting. She relates that her toe still remains red, she is worried about infection. She does not have pain to the area Objective Data Objective Data Vital Signs: Vital Signs Temp Pulse Resp BP 97.7 F L 95 16 150/78 H 01/30/21 08:45 01/30/21 08:45 01/30/21 08:45 01/30/21 08:45 Body Mass Index (BMI) 41.4 Finger Stick Blood Glucose 159 Assessment & Plan Assessment/Plan (1) Non-pressure chronic ulcer of other part of left foot with fat layer exposed: Status: Chronic Code(s): L97.522 - Non-pressure chronic ulcer of other part of left foot with fat layer exposed (2) Abscess of left great toe: Status: Acute Code(s): L02.612 - Cutaneous abscess of left foot (3) Cellulitis of toe of left foot: Status: Acute Code(s): L03.032 - Cellulitis of left toe (4) Diabetic foot ulcer: Status: Acute Code(s): E11.621 - Type 2 diabetes mellitus with foot ulcer; L97.509 - Non-pressure chronic ulcer of other part of unspecified foot with unspecified severity Qualifiers: Diabetes mellitus type: type 2 Diabetic foot ulcer location: toe Laterality: left Non-pressure ulcer stage: with muscle involvement without evidence of necrosis Qualified Code(s): E11.621 - Type 2 diabetes mellitus with foot ulcer; L97.525 - Non-pressure chronic ulcer of other part of left foot with muscle involvement without evidence of necrosis (5) Type 2 diabetes mellitus with diabetic polyneuropathy: Status: Chronic Code(s): E11.42 - Type 2 diabetes mellitus with diabetic polyneuropathy Qualifiers: Diabetes mellitus fci insulin use: unspecified assistant terminal manager insulin use status Qualified Code(s): E11.42 - Type 2 diabetes mellitus with diabetic polyneuropathy (6) Amputation of right great toe: Status: Chronic Code(s): S98.111A - Complete traumatic amputation of right great toe, initial encounter Plan: Patient seen and examined.? Ulceration site noted to have consistent erythema and edema.? Slight diminishment of edema noted.? Again drainage noted underneath the callus Consistent with an abscess.? ? Cultures from 01/16/2021 demonstrated Streptococcus agalactiae and Staph aureus as well as Prevotella Bivia.? I discussed case with Dr. Lorenzo for continued antibiotic management. Patient keeps getting signs of infection. Patient has possibility of remaining underlying infection. It was determined that patient should be started on augmentin. Patient relates that she did not fill this prescription as she is currently taking amoxicillin from her dentist after some dental work. Patient also had a hemoglobin A1c 12/21/2020 was 10.8.? Albumin 12/21/20 of 2/6.? CRP 12/20/20 of 8.35. Patient had more recent labs done at the [facility]. We we will try to obtain these results. During recent inpatient admission for reoccuring infection to her hallux wound patient saw the hospital enterprise sales person on 12/20/20 where dietary counseling was given to address low albumin and high blood sugar to better optimize patient for healing. We will begin work-up for hyperbaric oxygen therapy as a potential treatment mo dality for the patient.? Other work-up labs and tests were recently ordered during hospital visit.? MRI obtained while in the hospital on 12/20/2020 demonstrated no evidence of osteomyelitis to the left hallux but did show swelling and cellulitis after treatment course of antibiotics.? Patient is noted to have recurrent signs of infection to the hallux consistent with infection.? There is concern the infection could have reinfected the bone.? No signs of infection recur since patient comes off the antibiotics and sometimes remain even while on the antibiotics even though not as severe Blood flow studies reviewed. Venous studies showed patent deep veins.? Arterial studies showed Right OSVALDO 1.08 and TBI 0.99 and left OSVALDO 1.02 and TBI 1.07 with bilateral triphasic pulses noted.? This should prove adequate to allow healing.? After verbal consent was obtained sharp excisional debridement was carried out which was well tolerated with patient's neuropathy.? Continue wound care daily with silver dressing.? Continue offloading with offloaded surgical shoe or offloading pad is patient states that she does not tolerate the surgical shoe well.? Patient presents today in offloaded cam boot that she said she was able to find at home. The offloaded CAM boot is also a valid offloading option for the patient. ?Reiterated patient the importance of offloading for wound healing.? Discussed that the amount of callus buildup is suggestive of too much pressure to the ulcerative site.? Discussed proper blood sugar control, diet, wound care, and offloading to better allow healing.? Discussed signs of infection to watch out for and to contact if any concerns arise.? Patient educated on signs to watch out for and if seen patient contact doctor's office or go to the emergency room.? Patient to finish course of antibiotics.? Patient has a diabetic foot ulceration that has failed to show measurable signs of healing after completing 30 consecutive days of standard wound care. We will discuss to see if patient might be a potential candidate for hyperbaric oxygen therapy.? This would include further work up with labs, imaging, and clearance consultation. If patient is approved for hyperbaric oxygen therapy our goals would be to get progression and healing of patient's wounds while continuing regular debridements, monitoring, offloading, medical optimizing and monitoring. All questions answered.? Follow up 1 week.? This note was generated with [employer] dictation software.? It may contain incorrect words, spelling, and punctuation that were not noted in checking the note before signing.? Physical Exam Const alert and no apparent distress General Appearance: cooperative and comfortable HEENT Head and Scalp: atraumatic Lymph Lymphatic: no lymphedema noted and lymphedema Resp normal respiratory effort Effort and Inspection: able to speak in complete sentences Extremity normal capillary refill, no calf tenderness and no pedal edema General Extremity: no tenderness to palpation of joints or extremities; Negative for clubbing or cyanosis Peripheral Pulses: Yes posterior tibial pulses present bilateral diminished and dorsalis pedis pulses present bilateral diminished Skin General Skin Exam: Negative for ecchymosis, erythema, eschar, pallor or dermatitis Rashes: no rashes Wounds: wounds noted Wound Narrative: ulcers noted to left medial hallux. No malodor, probing to bone, streaking, fluctuation, crepitus.? Skin is atrophic and hairless.? Surrounding callus tissue noted.? Granular base with surrounding maceration.? Patient has had recurrent erythema with cellulitis/abscess noted to ulceration.? Overlying skin callus is not allowing wound to drain. Upon debridement of overlying callus Serous drainage noted Amputation noted to right toes Neuro Gait (Neuro): normal gait Sensory Exam: extremities light-touch: decreased Motor Exam: strength 5/5 throughout Psych Appearance: appropriate Attitude: calm Debridement Note Debridement Note Post-Debridement Measurements and Additional Note: Post-Debridement Measurements/Treatment WC - Nurse 2 - General Ulcer CM Notes Start: 01/30/21 08:45 Freq: Status: Active Protocol: Activity Type Activity Date Activity User E-Sign Co-Sign Detail Recorded Client Recorded Date Recorded By Document 01/30/21 09:02 GISELA [id number] 01/30/21 09:08 01/30/21 09:02 Wound Center Nurse 2 #2 l Grt Toe Plantar -Time 09:04 -Correct Patient Yes -Correct Side, Site, Position Yes -Correct Procedure Yes -Procedure Performed Yes -Type of Procedure Debridement -Clinical Debridement Subcutaneous -Tissue Removed Subcutaneous -Post Debridement (cm) - Length 1.1 -Post Debridement (cm) - Width 0.8 -Post Debridement (cm) - Depth 0.2 -Total Square (Post) (cm) 0.88 -Area of Debridement (cm) - Length 1.1 -Area of Debridement (cm) - Width 0.8 -Total Square (Area) (cm) 0.88 -Tunneling No -Undermining/Tunneling No -Circular Undermining No -Wound/Ulcer Outcome Not Healed -Ulcer Cleansing Rinsed/ Irrigated with Saline -Foul Odor after Cleansing No -Bioengineered Tissue No -Bleeding Controlled with Pressure -Offloading Yes -Type of Offloading Surgical Shoe -Treatment Response Procedure Tolerated Well -Debridement - Subq, 1st 20sq cm Yes Pain Scale: 0-10 Numeric Is Patient Pain Free? Yes - Nurse 3 - General Ulcer D/C NN Start: 01/30/21 08:45 Freq: Status: Active Protocol: Activity Type Activity Date Activity User E-Sign Co-Sign Detail Recorded Client Recorded Date Recorded By Document 01/30/21 09:19 MW [id number] 01/30/21 09:20 MW 01/30/21 09:19 Wound Care Nurse 3 #2 l Grt Toe Plantar -Ulcer Cleansing Rinsed/ Irrigated with Saline -Foul Odor after Cleansing No -Negative Pressure Wound Therapy N/A -Primary Dressing Applied Aquacel AG 4x4 -Primary Dressing Covered/Secured with Dry Gauze, Secured with Tape -Aquacel AG 4x4 1 Treatment Response Procedure Tolerated Well Pain Scale: 0-10 Numeric Is Patient Pain Free? Yes Teaching: Wound Center Dressing Your Wound -Person Taught Patient -Teaching Method Discussion, Demonstration -Response to teaching Verbalize understanding WC - Visit Discharge Discharge Condition Stable Ambulatory Status Ambulatory Transportation Private Auto Accompanied by self Medication Reconcilliation completed & No provided to patient/care provider Clinical Summary of Care Provided Yes Wound debrided: Hallux Laterality: Left Wound Grade/Stage: Bucio 3 Type of Debridement: Excisional debridement Anesthesia Used: 4% Lidocaine Solution Depth: in the subcutaneous layer Percentage of wound debrided: 100 Instrument Used: #15 blade Tissue Removed: includes fibrous, devitalized, biofilm, callus and slough tissue Severity: Fat Layer Exposed Amount of bleeding with debridement: Mild Bleeding Controlled with: Pressure Patient tolerated procedure: Patient tolerated procedure well
[2021-02-06 08:30] VITALS: BP 150/76; PULSE 81; RESP 16; TEMP 36.3; BMI 41.4
--- NOTE | 2021-02-06 09:38 | PCM.WC.PN ---
History of Present Illness Date of Service: 02/06/21 Chief Complaint: left plantar hallux ulcer infection History of Wound: Patient is a 49 year old female who presents with plantar left hallux ulceration. Patient has had multiple previous infections to this wound. Patient has had both cellulitis and osteomyelitis noted to this wound. She has been hospitalized for this on multiple occasions. She has been following up with infectious disease with Dr. Lorenzo for management. 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 She would not like to lose this toe. Patient has been offloading with offloaded surgical shoe or cam boot. Patient has been struggling with buildup of callus to ulcer site. 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 Patient was most recently admitted to the hospital in November 2019 for worsening infection. During admission in October 2019 patient was also noted during that hospital stay to have an SEUN from combination of vancomycin and IV dye contrast. Patient has recently finished dialysis with return of normal kidney function. Patient seen in my office on 12/20/2020 at which point she was sent to emergency room for admittance from 12/20/2020 to 12/22/2020. Cultures were obtained and 12/20/2020 demonstrating strep agalactiae and strep epididymis. Blood work from this admission demonstrated a white blood cell count of 7.7, ESR of 18, hemoglobin A1c of 10.8 and CRP of 8.35. A new MRI was obtained of the left foot showing no further evidence of osteomyelitis of the hallux. Patient was seen by infectious disease and was discharged on oral antibiotics of cephalexin and doxycycline. After finishing these antibiotics symptoms have returned. Cultures obtained 01/16/21 grew prevotella bivia, MSSA, and strep agalactiae. Discussion was had with Dr. Lorenzo who recommended Augmentin for patient treatment course. This was prescribed and patient is currently taking. Patient relates that she is currently taking the Augmentin. She was seen in the emergency room over the weekend 02/02/2021 at which point Bactrim was prescribed for her at that time. Patient had a white blood cell count of 9.0, ESR of 23, CRP of 6.25, albumin of 3.4, creatinine of 0.79. Patient went to the ED for worsening pain to her left hallux wound. Hemoglobin A1c obtained at the [facility] showed results of 9.5% on 01/24/2021 Progress of Wound: unchanged, still showing signs of cellulitis Subjective Subjective: Patient seen and examined resting comfortably. Patient denies any new pedal complaints. She relates that her left hallux is still red and hot. Patient denies any nausea, fever, chills, chest pain, shortness of breath, cough, streaking, purulence, vomiting. Objective Data Objective Data Vital Signs: Vital Signs Temp Pulse Resp BP 97.3 F L 81 16 150/76 H 02/06/21 08:30 02/06/21 08:30 02/06/21 08:30 02/06/21 08:30 Oxygen Delivery Method Room Air Body Mass Index (BMI) 41.4 Finger Stick Blood Glucose 159 Assessment & Plan Assessment/Plan (1) Non-pressure chronic ulcer of other part of left foot with fat layer exposed: (2) Abscess of left great toe: (3) Cellulitis of toe of left foot: (4) Diabetic foot ulcer: QUALIFIERS: Diabetic foot ulcer location: toe Diabetes mellitus type: type 2 Laterality: left Non-pressure ulcer stage: with muscle involvement without evidence of necrosis Qualified Code(s): E11.621 - Type 2 diabetes mellitus with foot ulcer; L97.525 - Non-pressure chronic ulcer of other part of left foot with muscle involvement without evidence of necrosis (5) Type 2 diabetes mellitus with diabetic polyneuropathy: QUALIFIERS: Diabetes mellitus assistant terminal manager insulin use: unspecified skilled nursing insulin use status Qualified Code(s): E11.42 - Type 2 diabetes mellitus with diabetic polyneuropathy (6) Amputation of right great toe: PLAN: Patient seen and examined.? Ulceration site noted to have consistent erythema and edema.? Slight diminishment of edema noted.? Again drainage noted underneath the callus Consistent with an abscess.? ? Cultures from 01/16/2021 demonstrated Streptococcus agalactiae and Staph aureus as well as Prevotella Bivia.? I discussed case with Dr. Lorenzo for continued antibiotic management. Patient keeps getting signs of infection. Patient has possibility of remaining underlying infection. It was determined that patient should be started on augmentin. Patient relates that she is currently taking the Augmentin. Patient was seen in the hospital emergency department over the weekend for worsening pain to her left hallux. Patient at that time was given prescription for Bactrim. Patient relates she is taking the Augmentin at this time but has not filled her Bactrim prescription. Patient also had a hemoglobin A1c 01/24/2021 was 9.5%.? Albumin 02/02/2021 of 3.4.? CRP 02/02/2021 of 6.25. ESR on 02/02/2021 was 23. White blood cell count of 9.0 on 02/02/2021 During recent inpatient admission for reoccuring infection to her hallux wound patient saw the hospital reservoir engineering consultant on 12/20/20 where dietary counseling was given to address low albumin and high blood sugar to better optimize patient for healing. We will begin work-up for hyperbaric oxygen therapy as a potential treatment modality for the patient.? Other work-up labs and tests were recently ordered during hospital visit.? MRI obtained while in the hospital on 12/20/2020 demonstrated no evidence of osteomyelitis to the left hallux but did show swelling and cellulitis after treatment course of antibiotics.? Patient is noted to have recurrent signs of infection to the hallux consistent with infection.? There is concern the infection could have reinfected the bone.? No signs of infection recur since patient comes off the antibiotics and sometimes remain even while on the antibiotics even though not as severe Blood flow studies reviewed. Venous studies showed patent deep veins.? Arterial studies showed Right OSVALDO 1.08 and TBI 0.99 and left OSVALDO 1.02 and TBI 1.07 with bilateral triphasic pulses noted.? This should prove adequate to allow healing.? After verbal consent was obtained sharp excisional debridement was carried out which was well tolerated with patient's neuropathy.? Continue wound care daily with silver dressing.? Discussed importance of offloading with offloaded surgical shoe or offloading pad is patient states that she does not tolerate the surgical shoe well.? Patient presents today in offloaded cam boot that she said she was able to find at home. The offloaded CAM boot is also a valid offloading option for the patient. Discussed with the patient doing a total contact cast for offloading purposes. Patient was agreeable. Patient provided verbal consent for a total contact cast. This was applied in a well padded neutral position according standard protocol. The patient tolerated this well. Patient was also advised to keep this clean, dry, and intact until follow-up next week. Patient is to have this checked on Friday for any problems with the total contact cast. ?Reiterated patient the importance of offloading for wound healing.? Discussed that the amount of callus buildup is suggestive of too much pressure to the ulcerative site.? Discussed proper blood sugar control, diet, wound care, and offloading to better allow healing.? Discussed signs of infection to watch out for and to contact if any concerns arise.? Patient educated on signs to watch out for and if seen patient contact doctor's office or go to the emergency room.? Patient to finish course of antibiotics.? Patient has a diabetic foot ulceration that has failed to show measurable signs of healing after completing 30 consecutive days of standard wound care. We will discuss to see if patient might be a potential candidate for hyperbaric oxygen therapy.? This would include further work up with labs, imaging, and clearance consultation. If patient is approved for hyperbaric oxygen therapy our goals would be to get progression and healing of patient's wounds while continuing regular debridements, monitoring, offloading, medical optimizing and monitoring. All questions answered.? We are still waiting clearance for HBO from patient's insurance. Hopefully will be able to start next week. Follow up 1 week.? This note was generated with [employer] dictation software.? It may contain incorrect words, spelling, and punctuation that were not noted in checking the note before signing.? Physical Exam Const alert and no apparent distress General Appearance: cooperative and comfortable Lymph Lymphatic: no lymphedema noted Resp normal respiratory effort Effort and Inspection: able to speak in complete sentences Extremity normal capillary refill, no calf tenderness and no pedal edema General Extremity: no tenderness to palpation of joints or extremities; Negative for clubbing or cyanosis Skin General Skin Exam: Negative for ecchymosis, erythema, eschar, pallor or dermatitis Rashes: no rashes Wounds: wounds noted Wound Narrative: ulcers noted to left medial hallux. No malodor, probing to bone, streaking, fluctuation, crepitus.? Skin is atrophic and hairless.? Surrounding callus tissue noted.? Granular base with surrounding maceration.? Patient has had recurrent erythema with cellulitis/abscess noted to ulceration.? Overlying skin callus is not allowing wound to drain. Upon debridement of overlying callus Serous drainage noted 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 Neuro Gait (Neuro): normal gait Sensory Exam: extremities light-touch: decreased Motor Exam: strength 5/5 throughout Psych Appearance: appropriate Attitude: calm Debridement Note Debridement Note Post-Debridement Measurements and Additional Note: Post-Debridement Measurements/Treatment WC - Nurse 1 - General Ulcer Assessment Start: 01/30/21 08:45 Freq: Status: Active Protocol: NANCY Activity Type Activity Date Activity User E-Sign Co-Sign Detail Recorded Client Recorded Date Recorded By Document 01/30/21 08:45 MS [id number] 01/30/21 08:54 MS Document 02/06/21 08:30 BMF [id number] 02/06/21 08:35 BMF 01/30/21 02/06/21 08:45 08:30 WC - Today's Visit Information Type of service Follow-up Visit Follow-up Visit (Physician/COMPUTER SYSTEMS DESIGN ANALYST (Physician/COMPUTER SYSTEMS DESIGN ANALYST ) ) Arrival Mode Ambulatory Ambulatory Transfer Assistance None Patient Identification Verified (Name & Yes Yes ) Patient Requires Transmission-Based No No Precautions Safety Precautions NA Finger Stick Blood Sugar(mg/dl) (if 186 indicated): Blood Sugar Stated by Stated by Patient Patient Height and Weight Body Mass Index (BMI) 41.4 41.4 BMI Classification Obese Obese Vital Signs Temperature (97.8 F-99.1 F) 97.7 F L 97.3 F L Temperature Source Temporal Temporal Pulse Rate (60-100) 95 81 Pulse Location Monitor Monitor Respiratory Rate (12-18) 16 16 Respiratory rate source Observation Observation Oxygen Delivery Method Room Air Blood Pressure (90/60-120/80) 150/78 H 150/76 H Blood Pressure Mean (mm Hg) 102 100 Source Monitor Monitor Position Sitting Sitting Blood Pressure Location Left Arm Right Arm History Since Last Visit- (Skip if this is Patient's initial visit) Have you changed medications since your No No last visit? Any new allergies or adverse reactions No No Had a fall/change in ADL's that may No No increase risk of falls Signs or symptoms of abuse and/or No No neglect since last visit Have you been in the hospital since your No No last visit? Has dressing in place as prescribed Yes Yes Has compression in place as prescribed N/A N/A Has offloadiing in place as prescribed N/A Yes Experienced any changes in pain level or No No management Left Footwear Surgical Shoe Multipodus with pressure Splint/Boot relief insole Right Footwear Regular Shoe Regular Shoe Pain Scale: 0-10 Numeric Is Patient Pain Free? Yes WC - Nurse 1 - General Ulcer Measurement Start: 01/30/21 08:45 Freq: Status: Active Protocol: Activity Type Activity Date Activity User E-Sign Co-Sign Detail Recorded Client Recorded Date Recorded By Document 01/30/21 08:45 MS [id number] 01/30/21 08:54 MS Document 02/06/21 08:30 [facility] [id number] 02/06/21 08:35 [facility] 01/30/21 02/06/21 08:45 08:30 Wound Center Nurse 1 #2 l Grt Toe Plantar -Combined with other wound No -Current Size (cm) - Length 1.6 1.8 -Current Size (cm) - Width 1 1.4 -Current Size (cm) - Depth 0.1 0.2 -Total Square Cm 1.6 2.52 -Photo Taken No -Epithelialization None Present -Tunneling No -Undermining/Tunneling No -Circular Undermining No -Exudate Amt Small Medium -Exudate Type Serosanguineous -Wound Margin Distinct, Distinct, Outline Outline Attached Attached -Granulation Amt Small (1-33%) None Present (0 %) -Slough/Fibrin Yes Yes -Necrosis Amt Small (1-33%) Large (67-100%) -Necrotic Tissue Type Adherent Slough Adherent Slough -Texture (Sherin-wound Skin Appearance) No Abnormality Assessed,Callus ,Scarring -Moisture (Sherin-wound Skin Appearance) No Abnormality Assessed, Maceration -Color (Sherin-wound Skin Appearance) No Abnormality Assessed -Temperature (Sherin-wound Skin No Abnormality No Abnormality Appearance) (Pt Warm) (Pt Warm) -Tenderness on Palpation (Sherin-wound Yes Skin Appearance) -Ulcer Cleansing soap and water Rinsed/ Irrigated with Saline -Foul Odor after Cleansing No No -Anesthetic Used 4% Lidocaine 5% Lidocaine Solution Gel WC - Nurse 2 - General Ulcer CM Notes Start: 01/30/21 08:45 Freq: Status: Active Protocol: Activity Type Activity Date Activity User E-Sign Co-Sign Detail Recorded Client Recorded Date Recorded By Document 01/30/21 09:02 GISELA [id number] 01/30/21 09:08 JF Document 02/06/21 08:47 JF [id number] 02/06/21 08:58 JF 01/30/21 02/06/21 09:02 08:47 Wound Center Nurse 2 #2 l Grt Toe Plantar -Time 09:04 08:47 -Correct Patient Yes Yes -Correct Side, Site, Position Yes Yes -Correct Procedure Yes Yes -Procedure Performed Yes Yes -Type of Procedure Debridement Debridement -Clinical Debridement Subcutaneous Subcutaneous -Tissue Removed Subcutaneous Subcutaneous -Post Debridement (cm) - Length 1.1 1.2 -Post Debridement (cm) - Width 0.8 0.5 -Post Debridement (cm) - Depth 0.2 0.1 -Total Square (Post) (cm) 0.88 0.60 -Area of Debridement (cm) - Length 1.1 1.2 -Area of Debridement (cm) - Width 0.8 0.5 -Total Square (Area) (cm) 0.88 0.60 -Tunneling No No -Undermining/Tunneling No No -Circular Undermining No No -Wound/Ulcer Outcome Not Healed Not Healed -Ulcer Cleansing Rinsed/ Rinsed/ Irrigated with Irrigated with Saline Saline -Foul Odor after Cleansing No No -Bioengineered Tissue No No -Bleeding Controlled with Pressure Pressure -Offloading Yes Yes -Type of Offloading Surgical Shoe Total Contact Cast (TCC) - Left ($) -Treatment Response Procedure Procedure Tolerated Well Tolerated Well -Debridement - Subq, 1st 20sq cm Yes Yes Pain Scale: 0-10 Numeric Is Patient Pain Free? Yes Yes WC - Nurse 3 - General Ulcer D/C NN Start: 01/30/21 08:45 Freq: Status: Active Protocol: Activity Type Activity Date Activity User E-Sign Co-Sign Detail Recorded Client Recorded Date Recorded By Document 01/30/21 09:19 MW [id number] 01/30/21 09:20 MW Document 02/06/21 09:03 [facility] [id number] 02/06/21 09:08 [facility] Document 02/06/21 09:04 JF [id number] 02/06/21 09:05 JF 01/30/21 02/06/21 02/06/21 09:19 09:03 09:04 Wound Care Nurse 3 #2 l Grt Toe Plantar -Ulcer Cleansing Rinsed/ Rinsed/ Irrigated with Irrigated with Saline Saline -Foul Odor after Cleansing No No -Negative Pressure Wound Therapy N/A -Primary Dressing Applied Aquacel AG 4x4 Aquacel AG 2x2 Aquacel AG 4x4 -Primary Dressing Covered/Secured with Dry Gauze, Dry Gauze Dry Gauze, Secured with Secured with Tape Tape -Other Covering TCC Undercasting applied, size 3 -Aquacel AG 4x4 1 1 -Aquacel AG 2x2 1 Treatment Response Procedure Procedure Tolerated Well Tolerated Well Pain Scale: 0-10 Numeric Is Patient Pain Free? Yes Yes Yes Teaching: Wound Center Dressing Your Wound -Person Taught Patient -Teaching Method Discussion, Demonstration -Response to teaching Verbalize understanding WC - Visit Discharge Discharge Condition Stable Stable Stable Ambulatory Status Ambulatory Ambulatory Ambulatory Transportation Private Auto Private Auto Private Auto Accompanied by self Medication Reconcilliation completed & No Yes provided to patient/care provider Clinical Summary of Care Provided Yes Yes Notes: TCC applied today per Brandan Stewart, instruction given. Wound debrided: Hallux Laterality: Left Wound Grade/Stage: Bucio 3 Type of Debridement: Excisional debridement Anesthesia Used: 4% Lidocaine Solution Depth: in the subcutaneous layer Percentage of wound debrided: 100 Instrument Used: #15 blade Tissue Removed: Includes fibrous, devitalized, biofilm, callus and slough tissue Severity: Fat Layer Exposed Amount of bleeding with debridement: Mild Bleeding Controlled with: Pressure Patient tolerated procedure: Patient tolerated procedure well
[2021-02-07 14:11] VITALS: BP 150/91; PULSE 94; RESP 16; TEMP 36.6; BMI 41.4
[2021-02-13 08:35] VITALS: BP 152/81; PULSE 87; RESP 16; TEMP 36.8; BMI 41.4
--- NOTE | 2021-02-13 09:12 | PN.PCM_ITS ---
History of Present Illness Date of Service: 02/13/21 Chief Complaint: left plantar hallux ulcer infection History of Wound: Patient is a 49 year old female who presents with plantar left hallux ulceration. Patient has had multiple previous infections to this wound. Patient has had both cellulitis and osteomyelitis noted to this wound. She has been hospitalized for this on multiple occasions. She has been following up with infectious disease with Dr. Lorenzo for management. 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 She would not like to lose this toe. Patient has been offloading with offloaded surgical shoe or cam boot. Patient has been struggling with buildup of callus to ulcer site. 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 Patient was most recently admitted to the hospital in November 2019 for worsening infection. During admission in October 2019 patient was also noted during that hospital stay to have an SEUN from combination of vancomycin and IV dye contrast. Patient has recently finished dialysis with return of normal kidney function. Patient seen in my office on 12/20/2020 at which point she was sent to emergency room for admittance from 12/20/2020 to 12/22/2020. Cultures were obtained and 12/20/2020 demonstrating strep agalactiae and strep epididymis. Blood work from this admission demonstrated a white blood cell count of 7.7, ESR of 18, hemoglobin A1c of 10.8 and CRP of 8.35. A new MRI was obtained of the left foot showing no further evidence of osteomyelitis of the hallux. Patient was seen by infectious disease and was discharged on oral antibiotics of cephalexin and doxycycline. After finishing these antibiotics symptoms have returned. Cultures obtained 01/16/21 grew prevotella bivia, MSSA, and strep agalactiae. Discussion was had with Dr. Lorenzo who recommended Augmentin for patient treatment course. This was prescribed and patient is currently taking. Patient relates that she is currently taking the Augmentin. She was seen in the emergency room over the weekend 02/02/2021 at which point Bactrim was prescribed for her at that time. Patient had a white blood cell count of 9.0, ESR of 23, CRP of 6.25, albumin of 3.4, creatinine of 0.79. Patient went to the ED for worsening pain to her left hallux wound. Hemoglobin A1c obtained at the [facility] showed results of 9.5% on 01/24/2021 Progress of Wound: Improved less erythema noted Subjective Subjective Patient seen and examined resting comfortably. Patient denies any new pedal complaints. Patient denies any nausea, fever, chills, chest pain, shortness of breath, cough, streaking, purulence, vomiting. Patient was not able to tolerate the total contact cast and had it removed end of last week at her nurses visit. She relates that it was just too unwieldy and she was afraid that she is getting a new wound with a blister formation. Objective Data Objective Data Vital Signs: Vital Signs Temp Pulse Resp BP 98.2 F 87 16 152/81 H 02/13/21 08:35 02/13/21 08:35 02/13/21 08:35 02/13/21 08:35 Oxygen Delivery Method Room Air Body Mass Index (BMI) 41.4 Assessment & Plan Assessment/Plan (1) Non-pressure chronic ulcer of other part of left foot with fat layer exposed: (2) Abscess of left great toe: (3) Cellulitis of toe of left foot: (4) Diabetic foot ulcer: QUALIFIERS: Diabetic foot ulcer location: toe Diabetes mellitus type: type 2 Laterality: left Non-pressure ulcer stage: with muscle involvement without evidence of necrosis Qualified Code(s): E11.621 - Type 2 diabetes mellitus with foot ulcer; L97.525 - Non-pressure chronic ulcer of other part of left foot with muscle involvement without evidence of necrosis (5) Type 2 diabetes mellitus with diabetic polyneuropathy: QUALIFIERS: Diabetes mellitus half-way insulin use: unspecified half-way insulin use status Qualified Code(s): E11.42 - Type 2 diabetes mellitus with diabetic polyneuropathy (6) Amputation of right great toe: PLAN: Patient seen and examined.? Ulceration site noted to have consistent erythema and edema.? Diminishment of erythema and edema noted.? Patient has since finished her antibiotics. Cultures from 01/16/2021 demonstrated Streptococcus agalactiae and Staph aureus as well as Prevotella Bivia.? I discussed case with Dr. Lorenzo for continued antibiotic management. Patient keeps getting signs of infection. Patient has possibility of remaining underlying infection. It was determined that patient should be started on augmentin. Patient has since finished her prescription. Patient also had a hemoglobin A1c 01/24/2021 was 9.5%.? Albumin 02/02/2021 of 3.4.? CRP 02/02/2021 of 6.25. ESR on 02/02/2021 was 23. White blood cell count of 9.0 on 02/02/2021 During recent inpatient admission for reoccurring infection to her hallux wound patient saw the hospital studio technician video operator on 12/20/20 where dietary counseling was given to address low albumin and high blood sugar to better optimize patient for healing. We will begin work-up for hyperbaric oxygen therapy as a potential treatment modality for the patient.? Other work-up labs and tests were recently ordered during hospital visit.? MRI obtained while in the hospital on 12/20/2020 demonstrated no evidence of osteomyelitis to the left hallux but did show swelling and cellulitis after treatment course of antibiotics.? Patient is noted to have recurrent signs of infection to the hallux consistent with infection.? There is concern the infection could have reinfected the bone.? No signs of infection recur since patient comes off the antibiotics and sometimes remain even while on the antibiotics even though not as severe Blood flow studies reviewed. Venous studies showed patent deep veins.? Arterial studies showed Right OSVALDO 1.08 and TBI 0.99 and left OSVALDO 1.02 and TBI 1.07 with bilateral triphasic pulses noted.? This should prove adequate to allow healing.? After verbal consent was obtained sharp excisional debridement was carried out which was well tolerated with patient's neuropathy.? Continue wound care daily with silver dressing.? Discussed importance of offloading with offloaded surgical shoe or cam boot with offloading pad. Patient did not tolerate an offloading by a total contact cast and does not wish to return to this option in the future. Patient presents today in offloaded cam boot that she said she was able to find at home. The offloaded CAM boot is also a valid offloading option for the patient. ?Reiterated patient the importance of offloading for wound healing.? Discussed that the amount of callus buildup is suggestive of too much pressure to the ulcerative site.? Discussed proper blood sugar control, diet, wound care, and offloading to better allow healing.? Discussed signs of infection to watch out for and to contact if any concerns arise.? Patient educated on signs to watch out for and if seen patient contact doctor's office or go to the emergency room.? Patient to finish course of antibiotics.? Patient has a diabetic foot ulceration that has failed to show measurable signs of healing after completing 30 consecutive days of standard wound care. We will discuss to see if patient might be a potential candidate for hyperbaric oxygen therapy.? This would include further work up with labs, imaging, and clearance consultation. If patient is approved for hyperbaric oxygen therapy our goals would be to get progression and healing of patient's wounds while continuing regular debridements, monitoring, offloading, medical optimizing and monitoring. All questions answered.? We are still waiting clearance for HBO from patient's insurance. Patient to begin her therapy tomorrow Follow up 1 week.? This note was generated with goBramble dictation software.? It may contain incorrect words, spelling, and punctuation that were not noted in checking the note before signing.? Physical Exam Const alert and no apparent distress General Appearance: cooperative and comfortable Lymph Lymphatic: no lymphedema noted Resp normal respiratory effort Effort and Inspection: able to speak in complete sentences Extremity normal capillary refill, no calf tenderness and no pedal edema General Extremity: no tenderness to palpation of joints or extremities; Negative for clubbing or cyanosis Peripheral Pulses: Yes posterior tibial pulses present bilateral 2+ and dorsalis pedis pulses present bilateral 2+ Skin General Skin Exam: Negative for ecchymosis, erythema, eschar, pallor or dermatitis Rashes: no rashes Wounds: wounds noted Wound Narrative: ulcers noted to left medial hallux. No malodor, probing to bone, streaking, fluctuation, crepitus.? Skin is atrophic and hairless.? Surrounding callus tissue noted.? Granular base with surrounding maceration.? Patient has last erythema noted to hallux.? Overlying skin callus is not allowing wound to drain adequately. Upon debridement of overlying callus Serous drainage noted 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 Neuro Gait (Neuro): normal gait Sensory Exam: extremities light-touch: decreased Motor Exam: strength 5/5 throughout Psych Appearance: appropriate Attitude: calm Debridement Note Debridement Note Post-Debridement Measurements and Additional Note: Post-Debridement Measurements/Treatment EVIN - Nurse 1 - General Ulcer Assessment Start: 01/30/21 08:45 Freq: Status: Active Protocol: NANCY Activity Type Activity Date Activity User E-Sign Co-Sign Detail Recorded Client Recorded Date Recorded By Document 05/04/21 08:45 MS [id number] 01/30/21 08:54 MS Document 02/06/21 08:30 BMF [id number] 02/06/21 08:35 BMF Document 02/07/21 14:11 MS [id number] 02/07/21 14:13 MS Document 02/13/21 08:35 BMF [id number] 02/13/21 08:40 BMF 01/30/21 02/06/21 02/07/21 08:45 08:30 14:11 WC - Today's Visit Information Type of service Follow-up Visit Follow-up Visit Nurse-only (Physician/ASSISTED LIVING CARE MANAGER (Physician/ASSISTED LIVING CARE MANAGER Visit ) ) Arrival Mode Ambulatory Ambulatory Ambulatory Transfer Assistance None Patient Identification Verified (Name & Yes Yes Yes ) Patient Requires Transmission-Based No No No Precautions Safety Precautions NA NA Finger Stick Blood Sugar(mg/dl) (if 186 indicated): Blood Sugar Stated by Stated by Patient Patient Height and Weight Body Mass Index (BMI) 41.4 41.4 41.4 BMI Classification Obese Obese Obese Vital Signs Temperature (97.8 F-99.1 F) 97.7 F L 97.3 F L 97.9 F Temperature Source Temporal Temporal Temporal Pulse Rate (60-100) 95 81 94 Pulse Location Monitor Monitor Monitor Respiratory Rate (12-18) 16 16 16 Respiratory rate source Observation Observation Observation Oxygen Delivery Method Room Air Blood Pressure (90/60-120/80) 150/78 H 150/76 H 150/91 H Blood Pressure Mean (mm Hg) 102 100 110 Source Monitor Monitor Monitor Position Sitting Sitting Sitting Blood Pressure Location Left Arm Right Arm Right Arm History Since Last Visit- (Skip if this is Patient's initial visit) Have you changed medications since your No No No last visit? Any new allergies or adverse reactions No No No Had a fall/change in ADL's that may No No No increase risk of falls Signs or symptoms of abuse and/or No No No neglect since last visit Have you been in the hospital since your No No No last visit? Has dressing in place as prescribed Yes Yes Yes Has compression in place as prescribed N/A N/A N/A Has offloadiing in place as prescribed N/A Yes N/A Experienced any changes in pain level or No No No management Left Footwear Surgical Shoe Multipodus No Footwear with pressure Splint/Boot relief insole Right Footwear Regular Shoe Regular Shoe Regular Shoe Pain Scale: 0-10 Numeric Is Patient Pain Free? Yes 02/13/21 08:35 WC - Today's Visit Information Type of service Follow-up Visit (Physician/ASSISTED LIVING CARE MANAGER ) Arrival Mode Ambulatory Transfer Assistance None Patient Identification Verified (Name & Yes ) Patient Requires Transmission-Based No Precautions Safety Precautions Finger Stick Blood Sugar(mg/dl) (if indicated): Blood Sugar Height and Weight Body Mass Index (BMI) 41.4 BMI Classification Obese Vital Signs Temperature (97.8 F-99.1 F) 98.2 F Temperature Source Temporal Pulse Rate (60-100) 87 Pulse Location Monitor Respiratory Rate (12-18) 16 Respiratory rate source Observation Oxygen Delivery Method Room Air Blood Pressure (90/60-120/80) 152/81 H Blood Pressure Mean (mm Hg) 104 Source Monitor Position Sitting Blood Pressure Location Left Arm History Since Last Visit- (Skip if this is Patient's initial visit) Have you changed medications since your No last visit? Any new allergies or adverse reactions No Had a fall/change in ADL's that may No increase risk of falls Signs or symptoms of abuse and/or No neglect since last visit Have you been in the hospital since your No last visit? Has dressing in place as prescribed Yes Has compression in place as prescribed N/A Has offloadiing in place as prescribed Yes Experienced any changes in pain level or No management Left Footwear Multipodus Splint/Boot Right Footwear Regular Shoe Pain Scale: 0-10 Numeric Is Patient Pain Free? Yes - Nurse 1 - General Ulcer Measurement Start: 01/30/21 08:45 Freq: Status: Active Protocol: Activity Type Activity Date Activity User E-Sign Co-Sign Detail Recorded Client Recorded Date Recorded By Document 01/30/21 08:45 MS [id number] 01/30/21 08:54 MS Document 02/06/21 08:30 BMF [id number] 02/06/21 08:35 BMF Document 02/13/21 08:35 BMF [id number] 02/13/21 08:40 BMF 01/30/21 02/06/21 02/13/21 08:45 08:30 08:35 Wound Center Nurse 1 #2 l Grt Toe Plantar -Combined with other wound No No -Current Size (cm) - Length 1.6 1.8 1.2 -Current Size (cm) - Width 1 1.4 1 -Current Size (cm) - Depth 0.1 0.2 0.2 -Total Square Cm 1.6 2.52 1.2 -Photo Taken No No -Epithelialization None Present None Present -Tunneling No No -Undermining/Tunneling No No -Circular Undermining No No -Exudate Amt Small Medium Small -Exudate Type Serosanguineous Serosanguineous -Wound Margin Distinct, Distinct, Distinct, Outline Outline Outline Attached Attached Attached -Granulation Amt Small (1-33%) None Present (0 Small (1-33%) %) -Granulation Quality [place] -Slough/Fibrin Yes Yes Yes -Necrosis Amt Small (1-33%) Large (67-100%) Large (67-100%) -Necrotic Tissue Type Adherent Slough Adherent Slough Adherent Slough -Texture (Sherin-wound Skin Appearance) No Abnormality Assessed,Callus Assessed, ,Scarring Scarring -Moisture (Sherin-wound Skin Appearance) No Abnormality Assessed, Assessed,Dry/ Maceration Scaly -Color (Sherin-wound Skin Appearance) No Abnormality Assessed Assessed -Temperature (Sherin-wound Skin No Abnormality No Abnormality No Abnormality Appearance) (Pt Warm) (Pt Warm) (Pt Warm) -Tenderness on Palpation (Sherin-wound Yes No Skin Appearance) -Ulcer Cleansing soap and water Rinsed/ Rinsed/ Irrigated with Irrigated with Saline Saline -Foul Odor after Cleansing No No No -Anesthetic Used 4% Lidocaine 5% Lidocaine 5% Lidocaine Solution Gel Gel WC - Nurse 2 - General Ulcer CM Notes Start: 01/30/21 08:45 Freq: Status: Active Protocol: Activity Type Activity Date Activity User E-Sign Co-Sign Detail Recorded Client Recorded Date Recorded By Document 01/30/21 09:02 [id number] 01/30/21 09:08 Document 02/06/21 08:47 JF [id number] 02/06/21 08:58 Document 02/13/21 08:50 [id number] 02/13/21 08:54 01/30/21 02/06/21 02/13/21 09:02 08:47 08:50 Wound Center Nurse 2 #2 l Grt Toe Plantar -Time 09:04 08:47 08:50 -Correct Patient Yes Yes Yes -Correct Side, Site, Position Yes Yes Yes -Correct Procedure Yes Yes Yes -Procedure Performed Yes Yes Yes -Type of Procedure Debridement Debridement Debridement -Clinical Debridement Subcutaneous Subcutaneous Subcutaneous -Tissue Removed Subcutaneous Subcutaneous Subcutaneous -Post Debridement (cm) - Length 1.1 1.2 1 -Post Debridement (cm) - Width 0.8 0.5 0.5 -Post Debridement (cm) - Depth 0.2 0.1 0.1 -Total Square (Post) (cm) 0.88 0.60 0.5 -Area of Debridement (cm) - Length 1.1 1.2 1 -Area of Debridement (cm) - Width 0.8 0.5 0.5 -Total Square (Area) (cm) 0.88 0.60 0.5 -Tunneling No No No -Undermining/Tunneling No No No -Circular Undermining No No No -Wound/Ulcer Outcome Not Healed Not Healed Not Healed -Ulcer Cleansing Rinsed/ Rinsed/ Rinsed/ Irrigated with Irrigated with Irrigated with Saline Saline Saline -Foul Odor after Cleansing No No No -Bioengineered Tissue No No No -Bleeding Controlled with Pressure Pressure Pressure -Offloading Yes Yes Yes -Type of Offloading Surgical Shoe Total Contact Surgical Shoe Cast (TCC) - Left ($) -Treatment Response Procedure Procedure Tolerated Well Tolerated Well -Debridement - Subq, 1st 20sq cm Yes Yes Yes Pain Scale: 0-10 Numeric Is Patient Pain Free? Yes Yes Yes WC - Nurse 3 - General Ulcer D/C NN Start: 01/30/21 08:45 Freq: Status: Active Protocol: Activity Type Activity Date Activity User E-Sign Co-Sign Detail Recorded Client Recorded Date Recorded By Document 01/30/21 09:19 MW [id number] 01/30/21 09:20 MW Document 02/06/21 09:03 BMF [id number] 02/06/21 09:08 BMF Document 02/06/21 09:04 JF [id number] 02/06/21 09:05 JF Document 02/07/21 14:23 MS [id number] 02/07/21 14:23 MS Document 02/13/21 09:04 DL [id number] 02/13/21 09:07 DL 01/30/21 02/06/21 02/06/21 09:19 09:03 09:04 Wound Care Nurse 3 #2 l Grt Toe Plantar -Ulcer Cleansing Rinsed/ Rinsed/ Irrigated with Irrigated with Saline Saline -Foul Odor after Cleansing No No -Negative Pressure Wound Therapy N/A -Primary Dressing Applied Aquacel AG 4x4 Aquacel AG 2x2 Aquacel AG 4x4 -Other Dressing -Primary Dressing Covered/Secured with Dry Gauze, Dry Gauze Dry Gauze, Secured with Secured with Tape Tape -Other Covering TCC Undercasting applied, size 3 -Aquacel AG 4x4 1 1 -Aquacel AG 2x2 1 Treatment Response Procedure Procedure Tolerated Well Tolerated Well Pain Scale: 0-10 Numeric Is Patient Pain Free? Yes Yes Yes Teaching: Wound Center Dressing Your Wound -Person Taught Patient -Teaching Method Discussion, Demonstration -Response to teaching Verbalize understanding WC - Visit Discharge Discharge Condition Stable Stable Stable Ambulatory Status Ambulatory Ambulatory Ambulatory Transportation Private Auto Private Auto Private Auto Accompanied by self Medication Reconcilliation completed & No Yes provided to patient/care provider Clinical Summary of Care Provided Yes Yes Notes: TCC applied today per Brandan Stewart, instruction given. 02/07/21 02/13/21 14:23 09:04 Wound Care Nurse 3 #2 l Grt Toe Plantar -Ulcer Cleansing Wound Cleanser -Foul Odor after Cleansing No -Negative Pressure Wound Therapy -Primary Dressing Applied Aquacel AG 4x4 -Other Dressing aquacel ag -Primary Dressing Covered/Secured with Dry Gauze, Dry Gauze, Secured with Secured with Tape Tape -Other Covering -Aquacel AG 4x4 1 -Aquacel AG 2x2 Treatment Response Procedure Tolerated Well Pain Scale: 0-10 Numeric Is Patient Pain Free? Yes Teaching: Wound Center Dressing Your Wound -Person Taught -Teaching Method -Response to teaching WC - Visit Discharge Discharge Condition Stable Ambulatory Status Ambulatory Transportation Accompanied by Medication Reconcilliation completed & provided to patient/care provider Clinical Summary of Care Provided Notes: Wound debrided: Plantar medial hallux Laterality: Left Wound Grade/Stage: [place] 3 Type of Debridement: Excisional debridement Anesthesia Used: 4% Lidocaine Solution Depth: in the subcutaneous layer Percentage of wound debrided: 100 Instrument Used: #15 blade Tissue Removed: includes fibrous, devitalized, biofilm, callus and slough tissue Severity: Fat Layer Exposed Amount of bleeding with debridement: Mild Bleeding Controlled with: Pressure Patient tolerated procedure: Patient tolerated procedure well
[2021-02-14 11:37] LABS: Bedside Glucose 347 mg/dL (70-110)
--- NOTE | 2021-02-14 12:34 | PCM.HBO.PN ---
History of Present Illness Date of Service: 02/14/21 Chief Complaint: left plantar hallux ulcer infection History of Wound: Patient is a 49 year old female who presents with plantar left hallux ulceration. Patient has had multiple previous infections to this wound. Patient has had both cellulitis and osteomyelitis noted to this wound. She has been hospitalized for this on multiple occasions. She has been following up with infectious disease with Dr. Lorenzo for management. 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 She would not like to lose this toe. Patient has been offloading with offloaded surgical shoe or cam boot. Patient has been struggling with buildup of callus to ulcer site. 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 Patient was most recently admitted to the hospital in November 2019 for worsening infection. During admission in October 2019 patient was also noted during that hospital stay to have an SEUN from combination of vancomycin and IV dye contrast. Patient has recently finished dialysis with return of normal kidney function. Patient seen in my office on 12/20/2020 at which point she was sent to emergency room for admittance from 12/20/2020 to 12/22/2020. Cultures were obtained and 12/20/2020 demonstrating strep agalactiae and strep epididymis. Blood work from this admission demonstrated a white blood cell count of 7.7, ESR of 18, hemoglobin A1c of 10.8 and CRP of 8.35. A new MRI was obtained of the left foot showing no further evidence of osteomyelitis of the hallux. Patient was seen by infectious disease and was discharged on oral antibiotics of cephalexin and doxycycline. After finishing these antibiotics symptoms have returned. Cultures obtained 01/16/21 grew prevotella bivia, MSSA, and strep agalactiae. Discussion was had with Dr. Lorenzo who recommended Augmentin for patient treatment course. This was prescribed and patient is currently taking. Patient relates that she is currently taking the Augmentin. She was seen in the emergency room over the weekend 02/02/2021 at which point Bactrim was prescribed for her at that time. Patient had a white blood cell count of 9.0, ESR of 23, CRP of 6.25, albumin of 3.4, creatinine of 0.79. Patient went to the ED for worsening pain to her left hallux wound. Hemoglobin A1c obtained at the [facility] showed results of 9.5% on 01/24/2021 Progress of Wound: Improved less erythema noted Subjective Subjective BS 349 has been trying to take insulin by counting Carbs . Did not eat this AM or take insulin. Objective Data Objective Data unable to dive today becasuse of the Hyperglycemia Vital Signs: Vital Signs Temp Pulse Resp BP 98.2 F 87 16 152/81 H 02/13/21 08:35 02/13/21 08:35 02/13/21 08:35 02/13/21 08:35 Oxygen Delivery Method Room Air Body Mass Index (BMI) 41.4 Lab / Micro Data Labs: Laboratory Results - last 24 hr 02/14/21 08:34 POC Glucose 347 H Exam Nursing Assessment and Debridement Post-Debridement Measurements and Additional Note: Post-Debridement Measurements/Treatment - Nurse 1 - General Ulcer Assessment Start: 01/30/21 08:45 Freq: Status: Active Protocol: EVIN.LOWEXT Activity Type Activity Date Activity User E-Sign Co-Sign Detail Recorded Client Recorded Date Recorded By Document 02/13/21 08:35 [facility] [id number] 02/13/21 08:40 [facility] 02/13/21 08:35 - Today's Visit Information Type of service Follow-up Visit (Physician/MEMBER SERVICE REPRESENTATIVE ) Arrival Mode Ambulatory Transfer Assistance None Patient Identification Verified (Name & Yes ) Patient Requires Transmission-Based No Precautions Height and Weight Body Mass Index (BMI) 41.4 BMI Classification Obese Vital Signs Temperature (97.8 F-99.1 F) 98.2 F Temperature Source Temporal Pulse Rate (60-100) 87 Pulse Location Monitor Respiratory Rate (12-18) 16 Respiratory rate source Observation Oxygen Delivery Method Room Air Blood Pressure (90/60-120/80) 152/81 H Blood Pressure Mean (mm Hg) 104 Source Monitor Position Sitting Blood Pressure Location Left Arm History Since Last Visit- (Skip if this is Patient's initial visit) Have you changed medications since your No last visit? Any new allergies or adverse reactions No Had a fall/change in ADL's that may No increase risk of falls Signs or symptoms of abuse and/or No neglect since last visit Have you been in the hospital since your No last visit? Has dressing in place as prescribed Yes Has compression in place as prescribed N/A Has offloadiing in place as prescribed Yes Experienced any changes in pain level or No management Left Footwear Multipodus Splint/Boot Right Footwear Regular Shoe Pain Scale: 0-10 Numeric Is Patient Pain Free? Yes - Nurse 1 - General Ulcer Measurement Start: 01/30/21 08:45 Freq: Status: Active Protocol: Activity Type Activity Date Activity User E-Sign Co-Sign Detail Recorded Client Recorded Date Recorded By Document 02/13/21 08:35 [facility] [id number] 02/13/21 08:40 [facility] 02/13/21 08:35 Wound Center Nurse 1 #2 l Grt Toe Plantar -Combined with other wound No -Current Size (cm) - Length 1.2 -Current Size (cm) - Width 1 -Current Size (cm) - Depth 0.2 -Total Square Cm 1.2 -Photo Taken No -Epithelialization None Present -Tunneling No -Undermining/Tunneling No -Circular Undermining No -Exudate Amt Small -Exudate Type Serosanguineous -Wound Margin Distinct, Outline Attached -Granulation Amt Small (1-33%) -Granulation Quality [place] -Slough/Fibrin Yes -Necrosis Amt Large (67-100%) -Necrotic Tissue Type Adherent Slough -Texture (Sherin-wound Skin Appearance) Assessed, Scarring -Moisture (Sherin-wound Skin Appearance) Assessed,Dry/ Scaly -Color (Sherin-wound Skin Appearance) Assessed -Temperature (Sherin-wound Skin No Abnormality Appearance) (Pt Warm) -Tenderness on Palpation (Sherin-wound No Skin Appearance) -Ulcer Cleansing Rinsed/ Irrigated with Saline -Foul Odor after Cleansing No -Anesthetic Used 5% Lidocaine Gel - Nurse 2 - General Ulcer CM Notes Start: 01/30/21 08:45 Freq: Status: Active Protocol: Activity Type Activity Date Activity User E-Sign Co-Sign Detail Recorded Client Recorded Date Recorded By Document 02/13/21 08:50 GISELA [id number] 02/13/21 08:54 GISELA 02/13/21 08:50 Wound Center Nurse 2 -Time 08:50 -Correct Patient Yes -Correct Side, Site, Position Yes -Correct Procedure Yes -Procedure Performed Yes -Type of Procedure Debridement -Clinical Debridement Subcutaneous -Tissue Removed Subcutaneous -Post Debridement (cm) - Length 1 -Post Debridement (cm) - Width 0.5 -Post Debridement (cm) - Depth 0.1 -Total Square (Post) (cm) 0.5 -Area of Debridement (cm) - Length 1 -Area of Debridement (cm) - Width 0.5 -Total Square (Area) (cm) 0.5 -Tunneling No -Undermining/Tunneling No -Circular Undermining No -Wound/Ulcer Outcome Not Healed -Ulcer Cleansing Rinsed/ Irrigated with Saline -Foul Odor after Cleansing No -Bioengineered Tissue No -Bleeding Controlled with Pressure -Offloading Yes -Type of Offloading Surgical Shoe -Debridement - Subq, 1st 20sq cm Yes Pain Scale: 0-10 Numeric Is Patient Pain Free? Yes - Nurse 3 - General Ulcer D/C NN Start: 01/30/21 08:45 Freq: Status: Active Protocol: Activity Type Activity Date Activity User E-Sign Co-Sign Detail Recorded Client Recorded Date Recorded By Document 02/13/21 09:04 DL [id number] 02/13/21 09:07 DL 02/13/21 09:04 Wound Care Nurse 3 #2 l Grt Toe Plantar -Ulcer Cleansing Wound Cleanser -Foul Odor after Cleansing No -Other Dressing aquacel ag -Primary Dressing Covered/Secured with Dry Gauze, Secured with Tape Treatment Response Procedure Tolerated Well Pain Scale: 0-10 Numeric Is Patient Pain Free? Yes WC - Visit Discharge Discharge Condition Stable Ambulatory Status Ambulatory
[2021-02-15 08:26] LABS: Bedside Glucose 221 mg/dL (70-110)
[2021-02-15 09:24] VITALS: BP 149/81; PULSE 97; RESP 16; TEMP 37.2
--- NOTE | 2021-02-15 12:58 | PCM.HBO.PN ---
History of Present Illness Date of Service: 02/15/21 Chief Complaint: left plantar hallux ulcer infection History of Wound: Patient is a 49 year old female who presents with plantar left hallux ulceration. Patient has had multiple previous infections to this wound. Patient has had both cellulitis and osteomyelitis noted to this wound. She has been hospitalized for this on multiple occasions. She has been following up with infectious disease with Dr. Lorenzo for management. 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 She would not like to lose this toe. Patient has been offloading with offloaded surgical shoe or cam boot. Patient has been struggling with buildup of callus to ulcer site. 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 Patient was most recently admitted to the hospital in November 2019 for worsening infection. During admission in October 2019 patient was also noted during that hospital stay to have an SEUN from combination of vancomycin and IV dye contrast. Patient has recently finished dialysis with return of normal kidney function. Patient seen in my office on 12/20/2020 at which point she was sent to emergency room for admittance from 12/20/2020 to 12/22/2020. Cultures were obtained and 12/20/2020 demonstrating strep agalactiae and strep epididymis. Blood work from this admission demonstrated a white blood cell count of 7.7, ESR of 18, hemoglobin A1c of 10.8 and CRP of 8.35. A new MRI was obtained of the left foot showing no further evidence of osteomyelitis of the hallux. Patient was seen by infectious disease and was discharged on oral antibiotics of cephalexin and doxycycline. After finishing these antibiotics symptoms have returned. Cultures obtained 01/16/21 grew prevotella bivia, MSSA, and strep agalactiae. Discussion was had with Dr. Lorenzo who recommended Augmentin for patient treatment course. This was prescribed and patient is currently taking. Patient relates that she is currently taking the Augmentin. She was seen in the emergency room over the weekend 02/02/2021 at which point Bactrim was prescribed for her at that time. Patient had a white blood cell count of 9.0, ESR of 23, CRP of 6.25, albumin of 3.4, creatinine of 0.79. Patient went to the ED for worsening pain to her left hallux wound. Hemoglobin A1c obtained at the [facility] showed results of 9.5% on 01/24/2021 Progress of Wound: Improved less erythema noted Subjective Subjective She denies any new concerns at this time. Here for initial HBO treatment. Could not go through with HBO yesterday due to elevated blood glucose readings. Objective Data Objective Data Vital Signs: Vital Signs Temp Pulse Resp BP 98.9 F 97 16 149/81 H 02/15/21 09:24 02/15/21 09:24 02/15/21 09:24 02/15/21 09:24 Oxygen Delivery Method Room Air Body Mass Index (BMI) 41.4 Lab / Micro Data Labs: Laboratory Results - last 24 hr 02/15/21 08:24 POC Glucose 221 H Exam Physical Exam Const alert, oriented x3 and no apparent distress General Appearance: cooperative and comfortable HEENT normocephalic Head and Scalp: normal to inspection and normocephalic Neck full ROM and supple Resp normal respiratory effort Effort and Inspection: able to speak in complete sentences Neuro oriented x3, CN's II-XII intact bilaterally, moves all extremities and no focal motor deficits Psych mental status grossly normal Nursing Assessment and Debridement Post-Debridement Measurements and Additional Note: Post-Debridement Measurements/Treatment - Nurse 1 - General Ulcer Assessment Start: 01/30/21 08:45 Freq: Status: Active Protocol: NANCY Activity Type Activity Date Activity User E-Sign Co-Sign Detail Recorded Client Recorded Date Recorded By Document 02/13/21 08:35 [facility] [id number] 02/13/21 08:40 [facility] 02/13/21 08:35 - Today's Visit Information Type of service Follow-up Visit (Physician/CRAB PICKER ) Arrival Mode Ambulatory Transfer Assistance None Patient Identification Verified (Name & Yes ) Patient Requires Transmission-Based No Precautions Height and Weight Body Mass Index (BMI) 41.4 BMI Classification Obese Vital Signs Temperature (97.8 F-99.1 F) 98.2 F Temperature Source Temporal Pulse Rate (60-100) 87 Pulse Location Monitor Respiratory Rate (12-18) 16 Respiratory rate source Observation Oxygen Delivery Method Room Air Blood Pressure (90/60-120/80) 152/81 H Blood Pressure Mean (mm Hg) 104 Source Monitor Position Sitting Blood Pressure Location Left Arm History Since Last Visit- (Skip if this is Patient's initial visit) Have you changed medications since your No last visit? Any new allergies or adverse reactions No Had a fall/change in ADL's that may No increase risk of falls Signs or symptoms of abuse and/or No neglect since last visit Have you been in the hospital since your No last visit? Has dressing in place as prescribed Yes Has compression in place as prescribed N/A Has offloadiing in place as prescribed Yes Experienced any changes in pain level or No management Left Footwear Multipodus Splint/Boot Right Footwear Regular Shoe Pain Scale: 0-10 Numeric Is Patient Pain Free? Yes - Nurse 1 - General Ulcer Measurement Start: 01/30/21 08:45 Freq: Status: Active Protocol: Activity Type Activity Date Activity User E-Sign Co-Sign Detail Recorded Client Recorded Date Recorded By Document 02/13/21 08:35 [facility] [id number] 02/13/21 08:40 [facility] 02/13/21 08:35 Wound Center Nurse 1 #2 l Grt Toe Plantar -Combined with other wound No -Current Size (cm) - Length 1.2 -Current Size (cm) - Width 1 -Current Size (cm) - Depth 0.2 -Total Square Cm 1.2 -Photo Taken No -Epithelialization None Present -Tunneling No -Undermining/Tunneling No -Circular Undermining No -Exudate Amt Small -Exudate Type Serosanguineous -Wound Margin Distinct, Outline Attached -Granulation Amt Small (1-33%) -Granulation Quality [place] -Slough/Fibrin Yes -Necrosis Amt Large (67-100%) -Necrotic Tissue Type Adherent Slough -Texture (Sherin-wound Skin Appearance) Assessed, Scarring -Moisture (Sherin-wound Skin Appearance) Assessed,Dry/ Scaly -Color (Sherin-wound Skin Appearance) Assessed -Temperature (Sherin-wound Skin No Abnormality Appearance) (Pt Warm) -Tenderness on Palpation (Sherin-wound No Skin Appearance) -Ulcer Cleansing Rinsed/ Irrigated with Saline -Foul Odor after Cleansing No -Anesthetic Used 5% Lidocaine Gel - Nurse 2 - General Ulcer CM Notes Start: 01/30/21 08:45 Freq: Status: Active Protocol: Activity Type Activity Date Activity User E-Sign Co-Sign Detail Recorded Client Recorded Date Recorded By Document 02/13/21 08:50 GISELA [id number] 02/13/21 08:54 GISELA 05/18/21 08:50 Wound Center Nurse 2 -Time 08:50 -Correct Patient Yes -Correct Side, Site, Position Yes -Correct Procedure Yes -Procedure Performed Yes -Type of Procedure Debridement -Clinical Debridement Subcutaneous -Tissue Removed Subcutaneous -Post Debridement (cm) - Length 1 -Post Debridement (cm) - Width 0.5 -Post Debridement (cm) - Depth 0.1 -Total Square (Post) (cm) 0.5 -Area of Debridement (cm) - Length 1 -Area of Debridement (cm) - Width 0.5 -Total Square (Area) (cm) 0.5 -Tunneling No -Undermining/Tunneling No -Circular Undermining No -Wound/Ulcer Outcome Not Healed -Ulcer Cleansing Rinsed/ Irrigated with Saline -Foul Odor after Cleansing No -Bioengineered Tissue No -Bleeding Controlled with Pressure -Offloading Yes -Type of Offloading Surgical Shoe -Debridement - Subq, 1st 20sq cm Yes Pain Scale: 0-10 Numeric Is Patient Pain Free? Yes - Nurse 3 - General Ulcer D/C NN Start: 01/30/21 08:45 Freq: Status: Active Protocol: Activity Type Activity Date Activity User E-Sign Co-Sign Detail Recorded Client Recorded Date Recorded By Document 02/13/21 09:04 DL [id number] 02/13/21 09:07 DL 02/13/21 09:04 Wound Care Nurse 3 #2 l Grt Toe Plantar -Ulcer Cleansing Wound Cleanser -Foul Odor after Cleansing No -Other Dressing aquacel ag -Primary Dressing Covered/Secured with Dry Gauze, Secured with Tape Treatment Response Procedure Tolerated Well Pain Scale: 0-10 Numeric Is Patient Pain Free? 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 As above, could not have treatment yesterday due to elevated blood glucose readings. Bilateral cerumen impaction noted on examination left greater than right. Cerumen removal of the left ear done with a curette however, patient could not tolerate hyperbaric oxygen treatment due to bilateral ear pain/discomfort. Hyperbaric oxygen treatment was terminated. Refer to ENT for further assessment. This note was generated with [employer] dictation software. It may contain incorrect words, spelling, and punctuation that were not noted in checking the note before signing.
[2021-02-19 08:31] LABS: Bedside Glucose 107 mg/dL (70-110)
[2021-02-19 09:04] VITALS: BP 151/94; PULSE 92; RESP 16; TEMP 36.4
[2021-02-19 23:46] LABS: Bedside Glucose 66 mg/dL (70-110)
[2021-02-19 23:46] LABS: Bedside Glucose 69 mg/dL (70-110)
[2021-02-20 08:26] LABS: Bedside Glucose 211 mg/dL (70-110)
[2021-02-20 09:03] VITALS: BP 152/97; PULSE 90; RESP 16; TEMP 36.8
[2021-02-20 09:16] VITALS: BP 152/97; PULSE 90; RESP 16; TEMP 36.8; BMI 41.4
--- NOTE | 2021-02-20 11:29 | PN.PCM_ITS ---
History of Present Illness Date of Service: 02/20/21 Chief Complaint: left plantar hallux ulcer infection History of Wound: Patient is a 49 year old female who presents with plantar left hallux ulceration. Patient has had multiple previous infections to this wound. Patient has had both cellulitis and osteomyelitis noted to this wound. She has been hospitalized for this on multiple occasions. She has been following up with infectious disease with Dr. Lorenzo for management. 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 She would not like to lose this toe. Patient has been offloading with offloaded surgical shoe or cam boot. Patient has been struggling with buildup of callus to ulcer site. 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 Patient was most recently admitted to the hospital in November 2019 for worsening infection. During admission in October 2019 patient was also noted during that hospital stay to have an SEUN from combination of vancomycin and IV dye contrast. Patient has recently finished dialysis with return of normal kidney function. Patient seen in my office on 12/20/2020 at which point she was sent to emergency room for admittance from 12/20/2020 to 12/22/2020. Cultures were obtained and 12/20/2020 demonstrating strep agalactiae and strep epididymis. Blood work from this admission demonstrated a white blood cell count of 7.7, ESR of 18, hemoglobin A1c of 10.8 and CRP of 8.35. A new MRI was obtained of the left foot showing no further evidence of osteomyelitis of the hallux. Patient was seen by infectious disease and was discharged on oral antibiotics of cephalexin and doxycycline. After finishing these antibiotics symptoms have returned. Cultures obtained 01/16/21 grew prevotella bivia, MSSA, and strep agalactiae. Patient relates that she is currently taking the Augmentin. She was seen in the emergency room over the weekend 02/02/2021 at which point Bactrim was prescribed for her at that time. Patient had a white blood cell count of 9.0, ESR of 23, CRP of 6.25, albumin of 3.4, creatinine of 0.79. Patient went to the ED for worsening pain to her left hallux wound. Hemoglobin A1c obtained at the [facility] showed results of 9.5% on 01/24/2021 Patient has started hyperbaric oxygen therapy to assist in wound healing Progress of Wound: More erythema noted and dry blister noted to second digit Subjective Subjective Patient seen and examined resting comfortably. Patient denies any new pedal complaints. Patient denies any nausea, fever, chills, chest pain, shortness of breath, cough, streaking, purulence, vomiting. Patient relates that there is more pain noted to her hallux and she is concerned about how red it is getting again Objective Data Objective Data Vital Signs: Vital Signs Temp Pulse Resp BP 98.3 F 90 16 152/97 H 02/20/21 09:16 02/20/21 09:16 02/20/21 09:16 02/20/21 09:16 Oxygen Delivery Method Room Air Body Mass Index (BMI) 41.4 Lab / Micro Data Labs: Laboratory Results - last 24 hr 02/19/21 02/19/21 02/20/21 08:42 08:44 08:19 POC Glucose 69 L 66 L 211 H Physical Exam Const alert and no apparent distress General Appearance: cooperative and comfortable Lymph Lymphatic: no lymphedema noted Resp normal respiratory effort Effort and Inspection: able to speak in complete sentences Extremity normal capillary refill, no calf tenderness and no pedal edema General Extremity: no tenderness to palpation of joints or extremities; Negative for clubbing or cyanosis Peripheral Pulses: Yes posterior tibial pulses present right 2+ and dorsalis pedis pulses present right 2+ Skin General Skin Exam: Negative for ecchymosis, erythema, eschar, pallor or dermatitis Rashes: no rashes Wounds: wounds noted Wound Narrative: ulcers noted to left medial hallux. No malodor, probing to bone, streaking, fluctuation, crepitus.? Skin is atrophic and hairless.? Surrounding callus tissue noted.? Granular base with surrounding maceration.? Patient has erythema noted to entire hallux.? Overlying skin callus is not allowing wound to drain adequately. Upon debridement of overlying callus Serous drainage noted. Pain upon palpation and range of motion of IPJ of hallux Left second digit noted to have dry dorsal skin from previous blister secondary to total contact cast 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 Neuro Gait (Neuro): normal gait Sensory Exam: extremities light-touch: decreased Motor Exam: strength 5/5 throughout Psych Appearance: appropriate Attitude: calm Debridement Note Debridement Note Post-Debridement Measurements and Additional Note: Post-Debridement Measurements/Treatment WC - Nurse 1 - General Ulcer Assessment Start: 01/30/21 08:45 Freq: Status: Active Protocol: EVIN.LOWEXT Activity Type Activity Date Activity User E-Sign Co-Sign Detail Recorded Client Recorded Date Recorded By Document 01/30/21 08:45 MS [id number] 01/30/21 08:54 MS Document 02/06/21 08:30 BMF [id number] 02/06/21 08:35 BMF Document 02/07/21 14:11 MS [id number] 02/07/21 14:13 MS Document 02/13/21 08:35 BMF [id number] 02/13/21 08:40 BMF Document 02/20/21 09:16 JF [id number] 02/20/21 09:19 JF Edit Result 02/20/21 09:16 JF (1) [id number] 02/20/21 09:23 JF (1) Type of service => Initial Visit, => Follow-up Visit ( => Physician/PLASTIC CARD GRADER [employer]) Arrival Mode => Ambulatory Patient Identification Verified (Name & => Yes ) Patient Requires Transmission-Based => No Precautions Temperature (97.8 F-99.1 F) => 98.3 F Temperature Source => Temporal Pulse Rate (60-100) => 90 Respiratory Rate (12-18) => 16 Respiratory rate source => Observation Blood Pressure (90/60-120/80) => 152/97 H Blood Pressure Mean (mm Hg) => 115 Source => Monitor Position => Semi-Fowlers Blood Pressure Location => Left Arm 01/30/21 02/06/21 02/07/21 08:45 08:30 14:11 - Today's Visit Information Type of service Follow-up Visit Follow-up Visit Nurse-only (Physician/PLASTIC CARD GRADER [employer] (Physician/PLASTIC CARD GRADER [employer] Visit ) ) Arrival Mode Ambulatory Ambulatory Ambulatory Transfer Assistance None Patient Identification Verified (Name & Yes Yes Yes ) Patient Requires Transmission-Based No No No Precautions Safety Precautions NA NA Finger Stick Blood Sugar(mg/dl) (if 186 indicated): Blood Sugar Stated by Stated by Patient Patient Height and Weight Body Mass Index (BMI) 41.4 41.4 41.4 BMI Classification Obese Obese Obese Vital Signs Temperature (97.8 F-99.1 F) 97.7 F L 97.3 F L 97.9 F Temperature Source Temporal Temporal Temporal Pulse Rate (60-100) 95 81 94 Pulse Location Monitor Monitor Monitor Respiratory Rate (12-18) 16 16 16 Respiratory rate source Observation Observation Observation Oxygen Delivery Method Room Air Blood Pressure (90/60-120/80) 150/78 H 150/76 H 150/91 H Blood Pressure Mean (mm Hg) 102 100 110 Source Monitor Monitor Monitor Position Sitting Sitting Sitting Blood Pressure Location Left Arm Right Arm Right Arm History Since Last Visit- (Skip if this is Patient's initial visit) Have you changed medications since your No No No last visit? Any new allergies or adverse reactions No No No Had a fall/change in ADL's that may No No No increase risk of falls Signs or symptoms of abuse and/or No No No neglect since last visit Have you been in the hospital since your No No No last visit? Has dressing in place as prescribed Yes Yes Yes Has compression in place as prescribed N/A N/A N/A Has offloadiing in place as prescribed N/A Yes N/A Experienced any changes in pain level or No No No management Left Footwear Surgical Shoe Multipodus No Footwear with pressure Splint/Boot relief insole Right Footwear Regular Shoe Regular Shoe Regular Shoe Pain Scale: 0-10 Numeric Is Patient Pain Free? Yes 02/13/21 02/20/21 08:35 09:16 WC - Today's Visit Information Type of service Follow-up Visit Initial Visit, (Physician/PLASTIC CARD GRADER [facility] Follow-up Visit ) (Physician/PLASTIC CARD GRADER [employer] ) Arrival Mode Ambulatory Ambulatory Transfer Assistance None Patient Identification Verified (Name & Yes Yes ) Patient Requires Transmission-Based No No Precautions Safety Precautions Finger Stick Blood Sugar(mg/dl) (if indicated): Blood Sugar Height and Weight Body Mass Index (BMI) 41.4 41.4 BMI Classification Obese Obese Vital Signs Temperature (97.8 F-99.1 F) 98.2 F 98.3 F Temperature Source Temporal Temporal Pulse Rate (60-100) 87 90 Pulse Location Monitor Respiratory Rate (12-18) 16 16 Respiratory rate source Observation Observation Oxygen Delivery Method Room Air Blood Pressure (90/60-120/80) 152/81 H 152/97 H Blood Pressure Mean (mm Hg) 104 115 Source Monitor Monitor Position Sitting Semi-Fowlers Blood Pressure Location Left Arm Left Arm History Since Last Visit- (Skip if this is Patient's initial visit) Have you changed medications since your No last visit? Any new allergies or adverse reactions No Had a fall/change in ADL's that may No increase risk of falls Signs or symptoms of abuse and/or No neglect since last visit Have you been in the hospital since your No last visit? Has dressing in place as prescribed Yes Has compression in place as prescribed N/A Has offloadiing in place as prescribed Yes Experienced any changes in pain level or No management Left Footwear Multipodus Surgical Shoe Splint/Boot with pressure relief insole Right Footwear Regular Shoe Pain Scale: 0-10 Numeric Is Patient Pain Free? Yes Yes WC - Nurse 1 - General Ulcer Measurement Start: 01/30/21 08:45 Freq: Status: Active Protocol: Activity Type Activity Date Activity User E-Sign Co-Sign Detail Recorded Client Recorded Date Recorded By Document 01/30/21 08:45 MS [id number] 01/30/21 08:54 MS Document 02/06/21 08:30 BMF [id number] 02/06/21 08:35 BMF Document 02/13/21 08:35 BMF [id number] 02/13/21 08:40 BM Document 02/20/21 09:16 JF [id number] 02/20/21 09:19 JF 01/30/21 02/06/21 02/13/21 08:45 08:30 08:35 Wound Center Nurse 1 #2 l Grt Toe Plantar -Combined with other wound No No -Current Size (cm) - Length 1.6 1.8 1.2 -Current Size (cm) - Width 1 1.4 1 -Current Size (cm) - Depth 0.1 0.2 0.2 -Total Square Cm 1.6 2.52 1.2 -Photo Taken No No -Epithelialization None Present None Present -Tunneling No No -Undermining/Tunneling No No -Circular Undermining No No -Exudate Amt Small Medium Small -Exudate Type Serosanguineous Serosanguineous -Wound Margin Distinct, Distinct, Distinct, Outline Outline Outline Attached Attached Attached -Granulation Amt Small (1-33%) None Present (0 Small (1-33%) %) -Granulation Quality [place] -Slough/Fibrin Yes Yes Yes -Necrosis Amt Small (1-33%) Large (67-100%) Large (67-100%) -Necrotic Tissue Type Adherent Slough Adherent Slough Adherent Slough -Structure Exposed -Texture (Sherin-wound Skin Appearance) No Abnormality Assessed,Callus Assessed, ,Scarring Scarring -Moisture (Sherin-wound Skin Appearance) No Abnormality Assessed, Assessed,Dry/ Maceration Scaly -Color (Sherin-wound Skin Appearance) No Abnormality Assessed Assessed -Temperature (Sherin-wound Skin No Abnormality No Abnormality No Abnormality Appearance) (Pt Warm) (Pt Warm) (Pt Warm) -Tenderness on Palpation (Sherin-wound Yes No Skin Appearance) -Ulcer Cleansing soap and water Rinsed/ Rinsed/ Irrigated with Irrigated with Saline Saline -Foul Odor after Cleansing No No No -Anesthetic Used 4% Lidocaine 5% Lidocaine 5% Lidocaine Solution Gel Gel Lower Limb Edema Present 02/20/21 09:16 Wound Center Nurse 1 #2 l Grt Toe Plantar -Combined with other wound No -Current Size (cm) - Length 1.2 -Current Size (cm) - Width 0.9 -Current Size (cm) - Depth 0.4 -Total Square Cm 1.08 -Photo Taken -Epithelialization None Present -Tunneling No -Undermining/Tunneling No -Circular Undermining No -Exudate Amt Small -Exudate Type Sanguineous -Wound Margin Flat & Intact -Granulation Amt Small (1-33%) -Granulation Quality Hyper- granulation, [place] -Slough/Fibrin -Necrosis Amt Large (67-100%) -Necrotic Tissue Type Adherent Slough -Structure Exposed N/A -Texture (Sherin-wound Skin Appearance) Assessed,Callus -Moisture (Sherin-wound Skin Appearance) Assessed,Dry/ Scaly -Color (Sherin-wound Skin Appearance) Assessed,Rubor -Temperature (Sherin-wound Skin No Abnormality Appearance) (Pt Warm) -Tenderness on Palpation (Sherin-wound No Skin Appearance) -Ulcer Cleansing Rinsed/ Irrigated with Saline -Foul Odor after Cleansing No -Anesthetic Used 5% Lidocaine Gel Lower Limb Edema Present No WC - Nurse 2 - General Ulcer CM Notes Start: 01/30/21 08:45 Freq: Status: Active Protocol: Activity Type Activity Date Activity User E-Sign Co-Sign Detail Recorded Client Recorded Date Recorded By Document 01/30/21 09:02 JF [id number] 01/30/21 09:08 JF Document 02/06/21 08:47 GISELA [id number] 02/06/21 08:58 Document 02/13/21 08:50 [id number] 02/13/21 08:54 Document 02/20/21 09:23 [id number] 02/20/21 09:32 01/30/21 02/06/21 02/13/21 09:02 08:47 08:50 Wound Center Nurse 2 #2 l Grt Toe Plantar -Time 09:04 08:47 08:50 -Correct Patient Yes Yes Yes -Correct Side, Site, Position Yes Yes Yes -Correct Procedure Yes Yes Yes -Procedure Performed Yes Yes Yes -Type of Procedure Debridement Debridement Debridement -Clinical Debridement Subcutaneous Subcutaneous Subcutaneous -Tissue Removed Subcutaneous Subcutaneous Subcutaneous -Post Debridement (cm) - Length 1.1 1.2 1 -Post Debridement (cm) - Width 0.8 0.5 0.5 -Post Debridement (cm) - Depth 0.2 0.1 0.1 -Total Square (Post) (cm) 0.88 0.60 0.5 -Area of Debridement (cm) - Length 1.1 1.2 1 -Area of Debridement (cm) - Width 0.8 0.5 0.5 -Total Square (Area) (cm) 0.88 0.60 0.5 -Tunneling No No No -Undermining/Tunneling No No No -Circular Undermining No No No -Wound/Ulcer Outcome Not Healed Not Healed Not Healed -Ulcer Cleansing Rinsed/ Rinsed/ Rinsed/ Irrigated with Irrigated with Irrigated with Saline Saline Saline -Foul Odor after Cleansing No No No -Bioengineered Tissue No No No -Bleeding Controlled with Pressure Pressure Pressure -Offloading Yes Yes Yes -Type of Offloading Surgical Shoe Total Contact Surgical Shoe Cast (TCC) - Left ($) -Treatment Response Procedure Procedure Tolerated Well Tolerated Well -Debridement - Subq, 1st 20sq cm Yes Yes Yes Pain Scale: 0-10 Numeric Is Patient Pain Free? Yes Yes Yes 02/20/21 09:23 Wound Center Nurse 2 #2 l Grt Toe Plantar -Time 09:24 -Correct Patient Yes -Correct Side, Site, Position Yes -Correct Procedure Yes -Procedure Performed Yes -Type of Procedure Debridement -Clinical Debridement Subcutaneous -Tissue Removed Subcutaneous -Post Debridement (cm) - Length 1 -Post Debridement (cm) - Width 1 -Post Debridement (cm) - Depth 0.1 -Total Square (Post) (cm) 1 -Area of Debridement (cm) - Length 1 -Area of Debridement (cm) - Width 1 -Total Square (Area) (cm) 1 -Tunneling No -Undermining/Tunneling No -Circular Undermining No -Wound/Ulcer Outcome Not Healed -Ulcer Cleansing Rinsed/ Irrigated with Saline -Foul Odor after Cleansing No -Bioengineered Tissue No -Bleeding Controlled with Pressure -Offloading Yes -Type of Offloading Camwalker -Treatment Response Procedure Tolerated Well -Debridement - Subq, 1st 20sq cm Yes Pain Scale: 0-10 Numeric Is Patient Pain Free? Yes WC - Nurse 3 - General Ulcer D/C NN Start: 01/30/21 08:45 Freq: Status: Active Protocol: Activity Type Activity Date Activity User E-Sign Co-Sign Detail Recorded Client Recorded Date Recorded By Document 01/30/21 09:19 MW [id number] 01/30/21 09:20 MW Document 02/06/21 09:03 [facility] [id number] 02/06/21 09:08 BMF Document 02/06/21 09:04 JF [id number] 02/06/21 09:05 JF Document 02/07/21 14:23 MS [id number] 02/07/21 14:23 MS Document 02/13/21 09:04 DL [id number] 02/13/21 09:07 DL Document 02/20/21 09:33 JF [id number] 02/20/21 09:33 JF 01/30/21 02/06/21 02/06/21 09:19 09:03 09:04 Wound Care Nurse 3 #2 l Grt Toe Plantar -Ulcer Cleansing Rinsed/ Rinsed/ Irrigated with Irrigated with Saline Saline -Foul Odor after Cleansing No No -Negative Pressure Wound Therapy N/A -Primary Dressing Applied Aquacel AG 4x4 Aquacel AG 2x2 Aquacel AG 4x4 -Other Dressing -Primary Dressing Covered/Secured with Dry Gauze, Dry Gauze Dry Gauze, Secured with Secured with Tape Tape -Other Covering TCC Undercasting applied, size 3 -Aquacel AG 4x4 1 1 -Aquacel AG 2x2 1 Treatment Response Procedure Procedure Tolerated Well Tolerated Well Pain Scale: 0-10 Numeric Is Patient Pain Free? Yes Yes Yes Teaching: Wound Center Dressing Your Wound -Person Taught Patient -Teaching Method Discussion, Demonstration -Response to teaching Verbalize understanding WC - Visit Discharge Discharge Condition Stable Stable Stable Ambulatory Status Ambulatory Ambulatory Ambulatory Transportation Private Auto Private Auto Private Auto Accompanied by self Medication Reconcilliation completed & No Yes provided to patient/care provider Clinical Summary of Care Provided Yes Yes Notes: TCC applied today per Brandan Stewart, instruction given. 02/07/21 02/13/21 02/20/21 14:23 09:04 09:33 Wound Care Nurse 3 #2 l Grt Toe Plantar -Ulcer Cleansing Wound Cleanser Rinsed/ Irrigated with Saline -Foul Odor after Cleansing No No -Negative Pressure Wound Therapy -Primary Dressing Applied Aquacel AG 4x4 Aquacel AG 2x2 -Other Dressing aquacel ag -Primary Dressing Covered/Secured with Dry Gauze, Dry Gauze, Dry Gauze, Secured with Secured with Secured with Tape Tape Tape -Other Covering -Aquacel AG 4x4 1 -Aquacel AG 2x2 1 Treatment Response Procedure Tolerated Well Pain Scale: 0-10 Numeric Is Patient Pain Free? Yes Yes Teaching: Wound Center Dressing Your Wound -Person Taught -Teaching Method -Response to teaching WC - Visit Discharge Discharge Condition Stable Stable Ambulatory Status Ambulatory Ambulatory Transportation Private Auto Accompanied by Medication Reconcilliation completed & Yes provided to patient/care provider Clinical Summary of Care Provided Yes Notes: Wound debrided: Hallux Laterality: Left Wound Grade/Stage: Bucio 3 Type of Debridement: Excisional debridement Anesthesia Used: 4% Lidocaine Solution Depth: in the subcutaneous layer Percentage of wound debrided: 100 Instrument Used: #15 blade Tissue Removed: includes fibrous, devitalized, biofilm, callus and slough tissue Severity: Fat Layer Exposed Amount of bleeding with debridement: Mild Bleeding Controlled with: Pressure Patient tolerated procedure: Patient tolerated procedure well Assessment/Plan Assessment/Plan (1) Non-pressure chronic ulcer of other part of left foot with fat layer exposed: CODE(S): L97.522 - Non-pressure chronic ulcer of other part of left foot with fat layer exposed (2) Abscess of left great toe: CODE(S): L02.612 - Cutaneous abscess of left foot (3) Cellulitis of toe of left foot: CODE(S): L03.032 - Cellulitis of left toe (4) Diabetic foot ulcer: CODE(S): E11.621 - Type 2 diabetes mellitus with foot ulcer; L97.509 - Non-pressure chronic ulcer of other part of unspecified foot with unspecified severity QUALIFIERS: Diabetic foot ulcer location: toe Diabetes mellitus type: type 2 Laterality: left Non-pressure ulcer stage: with muscle involvement without evidence of necrosis Qualified Code(s): E11.621 - Type 2 diabetes mellitus with foot ulcer; L97.525 - Non-pressure chronic ulcer of other part of left foot with muscle involvement without evidence of necrosis (5) Type 2 diabetes mellitus with diabetic polyneuropathy: CODE(S): E11.42 - Type 2 diabetes mellitus with diabetic polyneuropathy QUALIFIERS: Diabetes mellitus nursing home insulin use: unspecified terminal makeup operator insulin use status Qualified Code(s): E11.42 - Type 2 diabetes mellitus with diabetic polyneuropathy (6) Amputation of right great toe: CODE(S): S98.111A - Complete traumatic amputation of right great toe, initial encounter PLAN: Patient seen and examined.? Ulceration site noted to have worsening erythema and edema.? Patient has since finished her antibiotics. Left second digit noted to have dry stable eschar from rubbing and blistering from total contact cast. Cultures from 01/16/2021 demonstrated Streptococcus agalactiae and Staph aureus as well as Prevotella Bivia.? I discussed case with Dr. Lorenzo for continued antibiotic management. Patient keeps getting signs of infection. Patient has possibility of remaining underlying infection. It was determined that patient should be started on augmentin. Patient has since finished her prescription. With worsening signs of infection noted a new culture was obtained today and patient was started on Augmentin which was sent to her pharmacy of choice. Patient also had a hemoglobin A1c 01/24/2021 was 9.5%.? Albumin 02/02/2021 of 3.4.? CRP 02/02/2021 of 6.25. ESR on 02/02/2021 was 23. White blood cell count of 9.0 on 02/02/2021 During recent inpatient admission for reoccurring infection to her hallux wound patient saw the hospital hardwood flooring specialist on 12/20/20 where dietary counseling was given to address low albumin and high blood sugar to better optimize patient for healing. MRI obtained while in the hospital on 12/20/2020 demonstrated no evidence of osteomyelitis to the left hallux but did show swelling and cellulitis after treatment course of antibiotics.? Patient is noted to have recurrent signs of infection to the hallux consistent with infection.? There is concern the infection could have reinfected the bone.? No signs of infection recur since patient comes off the antibiotics and sometimes remain even while on the antibiotics even though not as severe Blood flow studies reviewed. Venous studies showed patent deep veins.? Arterial studies showed Right OSVALDO 1.08 and TBI 0.99 and left OSVALDO 1.02 and TBI 1.07 with bilateral triphasic pulses noted.? This should prove adequate to allow healing.? After verbal consent was obtained sharp excisional debridement was carried out which was well tolerated with patient's neuropathy.? Continue wound care daily with silver dressing.? Discussed importance of offloading with offloaded surgical shoe or cam boot with offloading pad. Patient did not tolerate an offloading by a total contact cast and does not wish to return to this option in the future. Patient presents today in offloaded cam boot that she said she was able to find at home. The offloaded CAM boot is also a valid offloading option for the patient. ?Reiterated patient the importance of offloading for wound healing.? Discussed that the amount of callus buildup is suggestive of too much pressure to the ulcerative site.? Discussed proper blood sugar control, diet, wound care, and offloading to better allow healing.? Discussed signs of infection to watch out for and to contact if any concerns arise.? Patient educated on signs to watch out for and if seen patient contact doctor's office or go to the emergency room.? Patient to finish course of antibiotics.? Patient has a diabetic foot ulceration that has failed to show measurable signs of healing after completing 30 consecutive days of standard wound care. We will discuss to see if patient might be a potential candidate for hyperbaric oxygen therapy.? This would include further work up with labs, imaging, and clearance c onsultation. If patient is approved for hyperbaric oxygen therapy our goals would be to get progression and healing of patient's wounds while continuing regular debridements, monitoring, offloading, medical optimizing and monitoring. All questions answered.? Patient noted to have started HBO therapy. Patient not been able to dive every day due to ear pain and improper glucose control. Patient has shown up daily even if she was not eligible to dive that day. Patient is to follow-up with ENT after this appointment to get her ears possibly tubed to better allow HBO. Follow up 1 week.? This note was generated with Dragon dictation software.? It may contain incorrect words, spelling, and punctuation that were not noted in checking the note before signing.? The problems addressed require a low medical decision making level which includes two or more minor problems, a stable chronic illness, or an acute uncomplicated illness or injury.
--- NOTE | 2021-02-20 14:31 | HBO.PN.PCM_ITS ---
History of Present Illness Date of Service: 02/20/21 Chief Complaint: Ulceration, infection, and osteomyelitis of the left hallux. History of Wound: Patient is a 49 year old female who presents with plantar left hallux ulceration. Patient has had multiple previous infections to this wound. Patient has had both cellulitis and osteomyelitis noted to this wound. She has been hospitalized for this on multiple occasions. She has been following up with infectious disease with Dr. Lorenzo for management. 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 She would not like to lose this toe. Patient has been offloading with offloaded surgical shoe or cam boot. Patient has been struggling with buildup of callus to ulcer site. 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 Patient was most recently admitted to the hospital in November 2019 for worsening infection. During admission in October 2019 patient was also noted during that hospital stay to have an SEUN from combination of vancomycin and IV dye contrast. Patient has recently finished dialysis with return of normal kidney function. Patient seen in my office on 12/20/2020 at which point she was sent to emergency room for admittance from 12/20/2020 to 12/22/2020. Cultures were obtained and 12/20/2020 demonstrating strep agalactiae and strep epididymis. Blood work from this admission demonstrated a white blood cell count of 7.7, ESR of 18, hemoglobin A1c of 10.8 and CRP of 8.35. A new MRI was obtained of the left foot showing no further evidence of osteomyelitis of the hallux. Patient was seen by infectious disease and was discharged on oral antibiotics of cephalexin and do xycycline. After finishing these antibiotics symptoms have returned. Cultures obtained 01/16/21 grew prevotella bivia, MSSA, and strep agalactiae. Patient relates that she is currently taking the Augmentin. She was seen in the emergency room over the weekend 02/02/2021 at which point Bactrim was prescribed for her at that time. Patient had a white blood cell count of 9.0, ESR of 23, CRP of 6.25, albumin of 3.4, creatinine of 0.79. Patient went to the ED for worsening pain to her left hallux wound. Hemoglobin A1c obtained at the [facility] showed results of 9.5% on 01/24/2021 Patient has started hyperbaric oxygen therapy to assist in wound healing Objective Data Objective Data Vital Signs: Vital Signs Temp Pulse Resp BP 98.3 F 90 16 152/97 H 02/20/21 09:16 02/20/21 09:16 02/20/21 09:16 02/20/21 09:16 Oxygen Delivery Method Room Air Body Mass Index (BMI) 41.4 Lab / Micro Data Labs: Laboratory Results - last 24 hr 02/19/21 02/19/21 02/20/21 08:42 08:44 08:19 POC Glucose 69 L 66 L 211 H Exam Physical Exam Const alert, oriented x3, no apparent distress and well nourished General Appearance: cooperative and well developed HEENT normocephalic HEENT Narrative: The right tympanic membrane looked a bit hemorrhagic by otoscopic examination. Cerumen was noted to partially obscure visualization of the entire tympanic membrane. The left tympanic membrane was not examined. Head and Scalp: atraumatic Eyes PERRL and EOMs intact bilaterally Resp normal respiratory effort and no use of accessory muscles Psych affect normal Appearance: grossly normal and well kempt Nursing Assessment and Debridement Post-Debridement Measurements and Additional Note: Post-Debridement Measurements/Treatment - Nurse 1 - General Ulcer Assessment Start: 01/30/21 08:45 Freq: Status: Active Protocol: NANCY Activity Type Activity Date Activity User E-Sign Co-Sign Detail Recorded Client Recorded Date Recorded By Document 02/20/21 09:16 [id number] 02/20/21 09:19 GISELA 02/20/21 09:16 - Today's Visit Information Type of service Initial Visit, Follow-up Visit (Physician/MEASUREMENT SUPERINTENDENT ) Arrival Mode Ambulatory Patient Identification Verified (Name & Yes ) Patient Requires Transmission-Based No Precautions Height and Weight Body Mass Index (BMI) 41.4 BMI Classification Obese Vital Signs Temperature (97.8 F-99.1 F) 98.3 F Temperature Source Temporal Pulse Rate (60-100) 90 Respiratory Rate (12-18) 16 Respiratory rate source Observation Blood Pressure (90/60-120/80) 152/97 H Blood Pressure Mean (mm Hg) 115 Source Monitor Position Semi-Fowlers Blood Pressure Location Left Arm History Since Last Visit- (Skip if this is Patient's initial visit) Left Footwear Surgical Shoe with pressure relief insole Pain Scale: 0-10 Numeric Is Patient Pain Free? Yes WC - Nurse 1 - General Ulcer Measurement Start: 01/30/21 08:45 Freq: Status: Active Protocol: Activity Type Activity Date Activity User E-Sign Co-Sign Detail Recorded Client Recorded Date Recorded By Document 02/20/21 09:16 [id number] 02/20/21 09:19 02/20/21 09:16 Wound Center Nurse 1 #2 l Grt Toe Plantar -Combined with other wound No -Current Size (cm) - Length 1.2 -Current Size (cm) - Width 0.9 -Current Size (cm) - Depth 0.4 -Total Square Cm 1.08 -Epithelialization None Present -Tunneling No -Undermining/Tunneling No -Circular Undermining No -Exudate Amt Small -Exudate Type Sanguineous -Wound Margin Flat & Intact -Granulation Amt Small (1-33%) -Granulation Quality Hyper- granulation, Pen Mar -Necrosis Amt Large (67-100%) -Necrotic Tissue Type Adherent Slough -Structure Exposed N/A -Texture (Sherin-wound Skin Appearance) Assessed,Callus -Moisture (Sherin-wound Skin Appearance) Assessed,Dry/ Scaly -Color (Sherin-wound Skin Appearance) Assessed,Rubor -Temperature (Sherin-wound Skin No Abnormality Appearance) (Pt Warm) -Tenderness on Palpation (Sherin-wound No Skin Appearance) -Ulcer Cleansing Rinsed/ Irrigated with Saline -Foul Odor after Cleansing No -Anesthetic Used 5% Lidocaine Gel Lower Limb Edema Present No WC - Nurse 2 - General Ulcer CM Notes Start: 01/30/21 08:45 Freq: Status: Active Protocol: Activity Type Activity Date Activity User E-Sign Co-Sign Detail Recorded Client Recorded Date Recorded By Document 02/20/21 09:23 [id number] 02/20/21 09:32 02/20/21 09:23 Wound Center Nurse 2 #2 l Grt Toe Plantar -Time 09:24 -Correct Patient Yes -Correct Side, Site, Position Yes -Correct Procedure Yes -Procedure Performed Yes -Type of Procedure Debridement -Clinical Debridement Subcutaneous -Tissue Removed Subcutaneous -Post Debridement (cm) - Length 1 -Post Debridement (cm) - Width 1 -Post Debridement (cm) - Depth 0.1 -Total Square (Post) (cm) 1 -Area of Debridement (cm) - Length 1 -Area of Debridement (cm) - Width 1 -Total Square (Area) (cm) 1 -Tunneling No -Undermining/Tunneling No -Circular Undermining No -Wound/Ulcer Outcome Not Healed -Ulcer Cleansing Rinsed/ Irrigated with Saline -Foul Odor after Cleansing No -Bioengineered Tissue No -Bleeding Controlled with Pressure -Offloading Yes -Type of Offloading Camwalker -Treatment Response Procedure Tolerated Well -Debridement - Subq, 1st 20sq cm Yes Pain Scale: 0-10 Numeric Is Patient Pain Free? Yes - Nurse 3 - General Ulcer D/C NN Start: 01/30/21 08:45 Freq: Status: Active Protocol: Activity Type Activity Date Activity User E-Sign Co-Sign Detail Recorded Client Recorded Date Recorded By Document 02/20/21 09:33 GISELA [id number] 02/20/21 09:33 GISELA 02/20/21 09:33 Wound Care Nurse 3 #2 l Grt Toe Plantar -Ulcer Cleansing Rinsed/ Irrigated with Saline -Foul Odor after Cleansing No -Primary Dressing Applied Aquacel AG 2x2 -Primary Dressing Covered/Secured with Dry Gauze, Secured with Tape -Aquacel AG 2x2 1 Pain Scale: 0-10 Numeric Is Patient Pain Free? Yes WC - Visit Discharge Discharge Condition Stable Ambulatory Status Ambulatory Transportation Private Auto Medication Reconcilliation completed & Yes provided to patient/care provider Clinical Summary of Care Provided Yes Assessment/Plan Assessment/Plan (1) Left hallux osteomyelitis: CODE(S): M86.9 - Osteomyelitis, unspecified (2) Osteomyelitis: CODE(S): M86.9 - Osteomyelitis, unspecified QUALIFIERS: Osteomyelitis type: subacute Osteomyelitis location: foot Laterality: left Qualified Code(s): M86.272 - Subacute osteomyelitis, left ankle and foot (3) Abscess of left great toe: CODE(S): L02.612 - Cutaneous abscess of left foot (4) Diabetic foot ulcer with osteomyelitis: CODE(S): E11.621 - Type 2 diabetes mellitus with foot ulcer; E11.69 - Type 2 diabetes mellitus with other specified complication; L97.509 - Non-pressure chronic ulcer of other part of unspecified foot with unspecified severity; M86.9 - Osteomyelitis, unspecified PLAN: The patient experienced significant pain date, upon initiation of hyperbaric oxygen therapy. Hyperbaric oxygen therapy was administered for a total of only 13 minutes. The hyperbaric oxygen session was brought to a conclusion, and the dive was concluded. Due to the pain in the patient's ears, particularly that on the left, patient is to be sent to the ENT service. It is anticipated that myringotomy tubes will be placed, which will enable the patient to continue with hyperbaric oxygen therapy as planned, without the barotrauma which is evident having occurred with today's abbreviated hyperbaric oxygen therapy session. The patient will return once her tubes have been placed.
[2021-02-20 18:28] LABS: M R Staph aureus DNA By PCR Negative (Negative); Probe Check PASS; Staph aureus DNA By PCR POSITIVE (Negative)
[2021-02-22 08:25] LABS: Bedside Glucose 383 mg/dL (70-110)
[2021-02-23 08:35] LABS: Bedside Glucose 246 mg/dL (70-110)
[2021-02-23 10:33] VITALS: BP 132/72; BP 149/71; PULSE 72; PULSE 80; RESP 16; RESP 17; TEMP 36.7
[2021-02-23 11:10] LABS: Bedside Glucose 181 mg/dL (70-110)
--- NOTE | 2021-02-23 12:55 | PCM.HBO.PN ---
History of Present Illness Date of Service: 02/23/21 Chief Complaint: Ulceration, infection, and osteomyelitis of the left hallux. History of Wound: Patient is a 49 year old female who presents with plantar left hallux ulceration. Patient has had multiple previous infections to this wound. Patient has had both cellulitis and osteomyelitis noted to this wound. She has been hospitalized for this on multiple occasions. She has been following up with infectious disease with Dr. Lorenzo for management. 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 She would not like to lose this toe. Patient has been offloading with offloaded surgical shoe or cam boot. Patient has been struggling with buildup of callus to ulcer site. 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 Patient was most recently admitted to the hospital in November 2019 for worsening infection. During admission in October 2019 patient was also noted during that hospital stay to have an SEUN from combination of vancomycin and IV dye contrast. Patient has recently finished dialysis with return of normal kidney function. Patient seen in my office on 12/20/2020 at which point she was sent to emergency room for admittance from 12/20/2020 to 12/22/2020. Cultures were obtained and 12/20/2020 demonstrating strep agalactiae and strep epididymis. Blood work from this admission demonstrated a white blood cell count of 7.7, ESR of 18, hemoglobin A1c of 10.8 and CRP of 8.35. A new MRI was obtained of the left foot showing no further evidence of osteomyelitis of the hallux. Patient was seen by infectious disease and was discharged on oral antibiotics of cephalexin and doxycycline. After finishing these antibiotics symptoms have returned. Cultures obtained 01/16/21 grew prevotella bivia, MSSA, and strep agalactiae. Patient relates that she is currently taking the Augmentin. She was seen in the emergency room over the weekend 02/02/2021 at which point Bactrim was prescribed for her at that time. Patient had a white blood cell count of 9.0, ESR of 23, CRP of 6.25, albumin of 3.4, creatinine of 0.79. Patient went to the ED for worsening pain to her left hallux wound. Hemoglobin A1c obtained at the [facility] showed results of 9.5% on 01/24/2021 Patient has started hyperbaric oxygen therapy to assist in wound healing Subjective Subjective Progress: Today is the 1st full treatment of hyperbaric oxygen therapy for Maryanne. The patient is scheduled for 30 treatments total. Tolerance of hyperbaric oxygen therapy: Hyperbaric oxygen treatment was provided as per the facility's protocol at 2.0 EVY in 100% oxygen for 90 minutes without air breaks. The patient tolerated hyperbaric oxygen well, without complications or complaints. Upon emergence of the hyperbaric chamber, the patient's vital signs remained stable. She underwent myringotomy tube placement last week and tubes are in place and open. Objective Data Objective Data Vital Signs: Vital Signs Temp Pulse Resp BP 98.0 F 80 17 132/72 H 02/23/21 10:33 02/23/21 10:33 02/23/21 10:33 02/23/21 10:33 Oxygen Delivery Method Room Air Body Mass Index (BMI) 41.4 Lab / Micro Data Labs: Laboratory Results - last 24 hr 02/23/21 02/23/21 08:33 11:04 POC Glucose 246 H 181 H Micro: Microbiology 02/20/21 Unknown Wound Abcess - Toe Gram Stain - Final 02/20/21 Unknown Wound Abcess - Toe Wound Culture - Final Staphylococcus aureus Streptococcus agalactiae (B) 02/20/21 Unknown Wound Abcess - Toe Anaerobic Culture - Preliminary Checking for anaerobes, further studies to follow. Exam Physical Exam Const alert, oriented x3 and no apparent distress General Appearance: cooperative HEENT normocephalic and head/scalp atraumatic HEENT Narrative: myringotomy tubes open patent and present TM b/l Psych cooperative and affect normal Appearance: grossly normal Assessment/Plan Assessment/Plan (1) Diabetic foot ulcer with osteomyelitis: CODE(S): E11.621 - Type 2 diabetes mellitus with foot ulcer; E11.69 - Type 2 diabetes mellitus with other specified complication; L97.509 - Non-pressure chronic ulcer of other part of unspecified foot with unspecified severity; M86.9 - Osteomyelitis, unspecified (2) Left hallux osteomyelitis: CODE(S): M86.9 - Osteomyelitis, unspecified (3) Abscess of left great toe: CODE(S): L02.612 - Cutaneous abscess of left foot (4) Non-pressure chronic ulcer of other part of left foot with fat layer exposed: CODE(S): L97.522 - Non-pressure chronic ulcer of other part of left foot with fat layer exposed (5) Diabetic foot ulcer: CODE(S): E11.621 - Type 2 diabetes mellitus with foot ulcer; L97.509 - Non-pressure chronic ulcer of other part of unspecified foot with unspecified severity QUALIFIERS: Diabetic foot ulcer location: toe Diabetes mellitus type: type 2 Laterality: left Non-pressure ulcer stage: with muscle involvement without evidence of necrosis Qualified Code(s): E11.621 - Type 2 diabetes mellitus with foot ulcer; L97.525 - Non-pressure chronic ulcer of other part of left foot with muscle involvement without evidence of necrosis (6) Type 2 diabetes mellitus with diabetic polyneuropathy: CODE(S): E11.42 - Type 2 diabetes mellitus with diabetic polyneuropathy QUALIFIERS: Diabetes mellitus long term acute care registered nurse insulin use: unspecified fdc insulin use status Qualified Code(s): E11.42 - Type 2 diabetes mellitus with diabetic polyneuropathy PLAN: Maryanne tolerated her 1st full treatment of hyperbaric oxygen well. The patient appears to be tolerating hyperbaric oxygen therapy well, which will be continued as per his medical treatment plan.
== END 2021-02-26 23:59 ==
LOC: WC 08:30
PROVIDERS: PCP Internal Medicine; Visit Provider Podiatrist Foot & Ankle Surgery
DX: E11.621 Type 2 diabetes mellitus with foot ulcer (principal); L97.522 Non-pressure chronic ulcer of other part of left foot with fat layer exposed; L02.612 Cutaneous abscess of left foot; L03.032 Cellulitis of left toe; E11.42 Type 2 diabetes mellitus with diabetic polyneuropathy; E11.69 Type 2 diabetes mellitus with other specified complication; M86.272 Subacute osteomyelitis, left ankle and foot; H61.23 Impacted cerumen, bilateral; H92.03 Otalgia, bilateral
CPT/HCPCS: 11042; 29445; 69210; 82962; 87070; 87075; 87077; 87186; 87205; 87640; 99183; 99212; G0277; G0463

== ENCOUNTER 2021-03-28 08:30 | Outpatient (RCR) | payer MEDICARE, MEDICAID, SELFPAY ==
[2021-02-21 08:07] VITALS: BMI 39.2
[2021-02-27 00:26] VITALS: BP 149/71; PULSE 72; RESP 16; TEMP 36.7
[2021-02-27 09:11] VITALS: BP 119/66; BP 139/73; PULSE 77; PULSE 87; RESP 16; TEMP 36.2
[2021-02-27 11:38] LABS: Bedside Glucose 244 mg/dL (70-110)
[2021-02-27 11:39] LABS: Bedside Glucose 207 mg/dL (70-110)
--- NOTE | 2021-02-27 15:20 | HBO.PN.PCM_ITS ---
History of Present Illness Date of Service: 02/27/21 Chief Complaint: Ulceration, infection, and osteomyelitis of the left hallux. History of Wound: Patient is a 49 year old female who presents with plantar left hallux ulceration. Patient has had multiple previous infections to this wound. Patient has had both cellulitis and osteomyelitis noted to this wound. She has been hospitalized for this on multiple occasions. She has been following up with infectious disease with Dr. Lorenzo for management. 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 She would not like to lose this toe. Patient has been offloading with offloaded surgical shoe or cam boot. Patient has been struggling with buildup of callus to ulcer site. 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 Patient was most recently admitted to the hospital in November 2019 for worsening infection. During admission in October 2019 patient was also noted during that hospital stay to have an SEUN from combination of vancomycin and IV dye contrast. Patient has recently finished dialysis with return of normal kidney function. Patient seen in my office on 12/20/2020 at which point she was sent to emergency room for admittance from 12/20/2020 to 12/22/2020. Cultures were obtained and 12/20/2020 demonstrating strep agalactiae and strep epididymis. Blood work from this admission demonstrated a white blood cell count of 7.7, ESR of 18, hemoglobin A1c of 10.8 and CRP of 8.35. A new MRI was obtained of the left foot showing no further evidence of osteomyelitis of the hallux. Patient was seen by infectious disease and was discharged on oral antibiotics of cephalexin and do xycycline. After finishing these antibiotics symptoms have returned. Cultures obtained 01/16/21 grew prevotella bivia, MSSA, and strep agalactiae. Patient relates that she is currently taking the Augmentin. She was seen in the emergency room over the weekend 02/02/2021 at which point Bactrim was prescribed for her at that time. Patient had a white blood cell count of 9.0, ESR of 23, CRP of 6.25, albumin of 3.4, creatinine of 0.79. Patient went to the ED for worsening pain to her left hallux wound. Hemoglobin A1c obtained at the [facility] showed results of 9.5% on 01/24/2021 Patient has started hyperbaric oxygen therapy to assist in wound healing Subjective Subjective The patient underwent hyperbaric oxygen therapy today. Today's session represents the third such session of an anticipated 30 such sessions. Hyperbaric oxygen therapy was administered today as per the facility's protocol. Hyperbaric oxygen therapy was administered at 2 [place] for 90 minutes with no air breaks. Patient tolerated hyperbaric oxygen therapy well, without complaints or complications. Upon emergence from the hyperbaric chamber, the patient's vital signs remained stable. She was discharged in good condition. Preprocedure and post procedure blood glucose measurements were documented elsewhere. Objective Data Objective Data Vital Signs: Vital Signs Temp Pulse Resp BP 97.2 F L 87 16 119/66 02/27/21 09:11 02/27/21 09:11 02/27/21 09:11 02/27/21 09:11 Body Mass Index (BMI) 39.2 Lab / Micro Data Labs: Laboratory Results - last 24 hr 02/27/21 02/27/21 08:29 10:36 POC Glucose 244 H 207 H Exam Physical Exam Const alert, oriented x3, no apparent distress and well nourished General Appearance: cooperative and well developed HEENT normocephalic Head and Scalp: atraumatic Eyes PERRL and EOMs intact bilaterally Resp normal respiratory effort and clear to auscultation bilaterally Psych Appearance: grossly normal Assessment/Plan Assessment/Plan (1) Left hallux osteomyelitis: CODE(S): M86.9 - Osteomyelitis, unspecified (2) Diabetic foot ulcer with osteomyelitis: CODE(S): E11.621 - Type 2 diabetes mellitus with foot ulcer; E11.69 - Type 2 diabetes mellitus with other specified complication; L97.509 - Non-pressure chronic ulcer of other part of unspecified foot with unspecified severity; M86.9 - Osteomyelitis, unspecified (3) Hyperglycemia: CODE(S): R73.9 - Hyperglycemia, unspecified (4) Abscess of left great toe: CODE(S): L02.612 - Cutaneous abscess of left foot (5) Non-pressure chronic ulcer of other part of left foot with fat layer exposed: CODE(S): L97.522 - Non-pressure chronic ulcer of other part of left foot with fat layer exposed (6) Cellulitis of toe of left foot: CODE(S): L03.032 - Cellulitis of left toe PLAN: The patient appears to be tolerating hyperbaric oxygen therapy well, which will be continued as per the patient's medical plan.
[2021-03-05 08:35] LABS: Bedside Glucose 282 mg/dL (70-110)
[2021-03-06 08:15] LABS: Bedside Glucose 228 mg/dL (70-110)
[2021-03-06 08:59] VITALS: BP 115/64; BP 148/74; PULSE 83; PULSE 85; RESP 16; TEMP 36.6; TEMP 36.7
[2021-03-06 09:50] LABS: Bedside Glucose 201 mg/dL (70-110)
[2021-03-06 10:29] VITALS: BP 148/74; PULSE 83; RESP 16; TEMP 36.6; BMI 39.2
--- NOTE | 2021-03-06 14:39 | PCM.HBO.PN ---
History of Present Illness Date of Service: 03/06/21 Chief Complaint: Ulceration, infection, and osteomyelitis of the left hallux. Subjective Subjective The patient underwent hyperbaric oxygen therapy today. Today's session represents the third such session of an anticipated 30 such sessions. Hyperbaric oxygen therapy was administered today as per the facility's protocol. Hyperbaric oxygen therapy was administered at 2 [place] for 78 minutes with no air breaks. Session was cut short due to patient requires use restroom. Patient tolerated hyperbaric oxygen therapy well, without complaints or complications. Upon emergence from the hyperbaric chamber, the patient's vital signs remained stable. She was discharged in good condition. Preprocedure and post procedure blood glucose measurements were documented elsewhere. Objective Data Objective Data Vital Signs: Vital Signs Temp Pulse Resp BP 97.9 F 83 16 148/74 H 03/06/21 10:29 03/06/21 10:29 03/06/21 10:29 03/06/21 10:29 Oxygen Delivery Method Room Air Body Mass Index (BMI) 39.2 Lab / Micro Data Labs: Laboratory Results - last 24 hr 03/06/21 03/06/21 08:09 09:47 POC Glucose 228 H 201 H Exam Physical Exam Const alert, oriented x3, no apparent distress and well nourished General Appearance: cooperative and well developed HEENT normocephalic Head and Scalp: atraumatic Resp normal respiratory effort and clear to auscultation bilaterally Cardio regular rate and regular rhythm Psych Appearance: grossly normal Nursing Assessment and Debridement Post-Debridement Measurements and Additional Note: Post-Debridement Measurements/Treatment - Nurse 1 - General Ulcer Assessment Start: 02/27/21 08:18 Freq: Status: Active Protocol: WC.LOWPAULAT Activity Type Activity Date Activity User E-Sign Co-Sign Detail Recorded Client Recorded Date Recorded By Document 03/06/21 10:29 [facility] [id number] 03/06/21 10:34 [facility] 03/06/21 10:29 - Today's Visit Information Type of service 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 ) Arrival Mode Ambulatory Transfer Assistance None Patient Identification Verified (Name & Yes ) Patient Requires Transmission-Based No Precautions Height and Weight Body Mass Index (BMI) 39.2 BMI Classification Obese Vital Signs Temperature (97.8 F-99.1 F) 97.9 F Temperature Source Temporal Pulse Rate (60-100) 83 Pulse Location Monitor Respiratory Rate (12-18) 16 Respiratory rate source Observation Oxygen Delivery Method Room Air Blood Pressure (90/60-120/80) 148/74 H Blood Pressure Mean (mm Hg) 98 Source Monitor History Since Last Visit- (Skip if this is Patient's initial visit) Have you changed medications since your No last visit? Any new allergies or adverse reactions No Had a fall/change in ADL's that may No increase risk of falls Signs or symptoms of abuse and/or No neglect since last visit Have you been in the hospital since your No last visit? Has dressing in place as prescribed Yes Has compression in place as prescribed N/A Has offloadiing in place as prescribed N/A Experienced any changes in pain level or No management Left Footwear Multipodus Splint/Boot Right Footwear Regular Shoe Pain Scale: 0-10 Numeric Is Patient Pain Free? Yes WC - Nurse 1 - General Ulcer Measurement Start: 02/27/21 08:18 Freq: Status: Active Protocol: Activity Type Activity Date Activity User E-Sign Co-Sign Detail Recorded Client Recorded Date Recorded By Document 03/06/21 10:29 [facility] [id number] 03/06/21 10:34 [facility] 03/06/21 10:29 Wound Center Nurse 1 #2 l Grt Toe Plantar -Combined with other wound No -Current Size (cm) - Length 0.8 -Current Size (cm) - Width 0.7 -Current Size (cm) - Depth 0.1 -Total Square Cm 0.56 -Photo Taken No -Epithelialization None Present -Tunneling No -Undermining/Tunneling No -Circular Undermining No -Exudate Amt Small -Exudate Type Serosanguineous -Wound Margin Distinct, Outline Attached -Granulation Amt Medium (34-66%) -Granulation Quality [place] -Slough/Fibrin Yes -Necrosis Amt Medium (34-66%) -Necrotic Tissue Type Eschar -Texture (Sherin-wound Skin Appearance) Assessed,Callus ,Scarring -Moisture (Sherin-wound Skin Appearance) Assessed,Dry/ Scaly -Color (Sherin-wound Skin Appearance) Assessed -Temperature (Sherin-wound Skin No Abnormality Appearance) (Pt Warm) -Tenderness on Palpation (Sherin-wound No Skin Appearance) -Ulcer Cleansing Rinsed/ Irrigated with Saline -Foul Odor after Cleansing No -Anesthetic Used 5% Lidocaine Gel - Nurse 2 - General Ulcer CM Notes Start: 02/27/21 08:18 Freq: Status: Active Protocol: Activity Type Activity Date Activity User E-Sign Co-Sign Detail Recorded Client Recorded Date Recorded By Document 03/06/21 11:18 [id number] 03/06/21 11:23 03/06/21 11:18 Wound Center Nurse 2 -Time 11:20 -Correct Patient Yes -Correct Side, Site, Position Yes -Correct Procedure Yes -Procedure Performed Yes -Type of Procedure Debridement -Clinical Debridement Subcutaneous -Tissue Removed Subcutaneous -Post Debridement (cm) - Length 1.3 -Post Debridement (cm) - Width 0.9 -Post Debridement (cm) - Depth 0.1 -Total Square (Post) (cm) 1.17 -Area of Debridement (cm) - Length 1.3 -Area of Debridement (cm) - Width 0.9 -Total Square (Area) (cm) 1.17 -Tunneling No -Undermining/Tunneling No -Circular Undermining No -Wound/Ulcer Outcome Not Healed -Ulcer Cleansing Rinsed/ Irrigated with Saline -Foul Odor after Cleansing No -Bioengineered Tissue No -Bleeding Controlled with Pressure -Offloading Yes -Type of Offloading Camwalker -Treatment Response Procedure Tolerated Well -Debridement - Subq, 1st 20sq cm Yes Pain Scale: 0-10 Numeric Is Patient Pain Free? Yes - Nurse 3 - General Ulcer D/C NN Start: 02/27/21 08:18 Freq: Status: Active Protocol: Activity Type Activity Date Activity User E-Sign Co-Sign Detail Recorded Client Recorded Date Recorded By Document 03/06/21 11:28 [facility] [id number] 03/06/21 11:29 [facility] 03/06/21 11:28 Wound Care Nurse 3 #2 l Grt Toe Plantar -Ulcer Cleansing Rinsed/ Irrigated with Saline -Foul Odor after Cleansing No -Primary Dressing Applied Fibracol Plus 4x4 -Primary Dressing Covered/Secured with Dry Gauze, Secured with Tape -Fibracol Plus 4x4 1 Treatment Response Procedure Tolerated Well Pain Scale: 0-10 Numeric Is Patient Pain Free? Yes WC - Visit Discharge Discharge Condition Stable Ambulatory Status Ambulatory Transportation Private Auto Assessment/Plan Assessment/Plan (1) Left hallux osteomyelitis: CODE(S): M86.9 - Osteomyelitis, unspecified (2) Diabetic foot ulcer with osteomyelitis: CODE(S): E11.621 - Type 2 diabetes mellitus with foot ulcer; E11.69 - Type 2 diabetes mellitus with other specified complication; L97.509 - Non-pressure chronic ulcer of other part of unspecified foot with unspecified severity; M86.9 - Osteomyelitis, unspecified (3) Hyperglycemia: CODE(S): R73.9 - Hyperglycemia, unspecified (4) Abscess of left great toe: CODE(S): L02.612 - Cutaneous abscess of left foot (5) Non-pressure chronic ulcer of other part of left foot with fat layer exposed: CODE(S): L97.522 - Non-pressure chronic ulcer of other part of left foot with fat layer exposed (6) Cellulitis of toe of left foot: CODE(S): L03.032 - Cellulitis of left toe
--- NOTE | 2021-03-07 15:56 | PN.PCM_ITS ---
History of Present Illness Date of Service: 03/06/21 Chief Complaint: Ulceration, infection, and osteomyelitis of the left hallux. History of Wound: Patient is a 49 year old female who presents with plantar left hallux ulceration. Patient has had multiple previous infections to this wound. Patient has had both cellulitis and osteomyelitis noted to this wound. She has been hospitalized for this on multiple occasions. She has been following up with infectious disease with Dr. Lorenzo for management. 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 She would not like to lose this toe. Patient has been offloading with offloaded surgical shoe or cam boot. Patient has been struggling with buildup of callus to ulcer site. 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 Patient was most recently admitted to the hospital in November 2019 for worsening infection. During admission in October 2019 patient was also noted during that hospital stay to have an SEUN from combination of vancomycin and IV dye contrast. Patient has recently finished dialysis with return of normal kidney function. Patient seen in my office on 12/20/2020 at which point she was sent to emergency room for admittance from 12/20/2020 to 12/22/2020. Cultures were obtained and 12/20/2020 demonstrating strep agalactiae and strep epididymis. Blood work from this admission demonstrated a white blood cell count of 7.7, ESR of 18, hemoglobin A1c of 10.8 and CRP of 8.35. A new MRI was obtained of the left foot showing no further evidence of osteomyelitis of the hallux. Patient was seen by infectious disease and was discharged on oral antibiotics of cephalexin and do xycycline. After finishing these antibiotics symptoms have returned. Cultures obtained 01/16/21 grew prevotella bivia, MSSA, and strep agalactiae. Patient relates that she is currently taking the Augmentin. She was seen in the emergency room over the weekend 02/02/2021 at which point Bactrim was prescribed for her at that time. Patient had a white blood cell count of 9.0, ESR of 23, CRP of 6.25, albumin of 3.4, creatinine of 0.79. Patient went to the ED for worsening pain to her left hallux wound. Hemoglobin A1c obtained at the [facility] showed results of 9.5% on 01/24/2021 Patient has started hyperbaric oxygen therapy to assist in wound healing Progress of Wound: Increased callus tissue noted around wound Subjective Subjective Patient seen and examined resting comfortably. Patient denies any new pedal complaints. Patient denies any nausea, fever, chills, chest pain, shortness of breath, cough, streaking, purulence, vomiting. Patient relates that she is controlling her blood sugar. Objective Data Objective Data Vital Signs: Vital Signs Temp Pulse Resp BP 97.9 F 83 16 148/74 H 03/06/21 10:29 03/06/21 10:29 03/06/21 10:29 03/06/21 10:29 Oxygen Delivery Method Room Air Body Mass Index (BMI) 39.2 Physical Exam Narrative Const alert and no apparent distress General Appearance: cooperative and comfortable Lymph Lymphatic: no lymphedema noted Resp normal respiratory effort Effort and Inspection: able to speak in complete sentences Extremity normal capillary refill, no calf tenderness and no pedal edema General Extremity: no tenderness to palpation of joints or extremities; Negative for clubbing or cyanosis Peripheral Pulses: Yes posterior tibial pulses present right 2+ and dorsalis pedis pulses present right 2+ Skin General Skin Exam: Negative for ecchymosis, erythema, eschar, pallor or dermatitis Rashes: no rashes Wounds: wounds noted Wound Narrative: ulcers noted to left medial plantar hallux. No malodor, probing to bone, streaking, fluctuation, crepitus. Skin is atrophic and hairless. Surrounding callus tissue noted. Granular base. Patient has minor erythema noted to entire hallux. Significant callus buildup noted likely given to patient having missed appointment last week. Upon debridement of overlying callus Serous drainage noted. Pain upon palpation and range of motion of IPJ of hallux Left second digit noted to have dry dorsal skin from previous blister secondary to total contact cast. Stable no signs of infection no wound. 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 Neuro Gait (Neuro): normal gait Sensory Exam: extremities light-touch: decreased Motor Exam: strength 5/5 throughout Psych Appearance: appropriate Attitude: calm Debridement Note Debridement Note Post-Debridement Measurements and Additional Note: Post-Debridement Measurements/Treatment EVIN - Nurse 1 - General Ulcer Assessment Start: 02/27/21 08:18 Freq: Status: Active Protocol: NANCY Activity Type Activity Date Activity User E-Sign Co-Sign Detail Recorded Client Recorded Date Recorded By Document 03/06/21 10:29 [facility] [id number] 03/06/21 10:34 [facility] 03/06/21 10:29 WC - Today's Visit Information Type of service Follow-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 ) Arrival Mode Ambulatory Transfer Assistance None Patient Identification Verified (Name & Yes ) Patient Requires Transmission-Based No Precautions Height and Weight Body Mass Index (BMI) 39.2 BMI Classification Obese Vital Signs Temperature (97.8 F-99.1 F) 97.9 F Temperature Source Temporal Pulse Rate (60-100) 83 Pulse Location Monitor Respiratory Rate (12-18) 16 Respiratory rate source Observation Oxygen Delivery Method Room Air Blood Pressure (90/60-120/80) 148/74 H Blood Pressure Mean (mm Hg) 98 Source Monitor History Since Last Visit- (Skip if this is Patient's initial visit) Have you changed medications since your No last visit? Any new allergies or adverse reactions No Had a fall/change in ADL's that may No increase risk of falls Signs or symptoms of abuse and/or No neglect since last visit Have you been in the hospital since your No last visit? Has dressing in place as prescribed Yes Has compression in place as prescribed N/A Has offloadiing in place as prescribed N/A Experienced any changes in pain level or No management Left Footwear Multipodus Splint/Boot Right Footwear Regular Shoe Pain Scale: 0-10 Numeric Is Patient Pain Free? Yes - Nurse 1 - General Ulcer Measurement Start: 02/27/21 08:18 Freq: Status: Active Protocol: Activity Type Activity Date Activity User E-Sign Co-Sign Detail Recorded Client Recorded Date Recorded By Document 03/06/21 10:29 [facility] [id number] 03/06/21 10:34 [facility] 03/06/21 10:29 Wound Center Nurse 1 #2 l Grt Toe Plantar -Combined with other wound No -Current Size (cm) - Length 0.8 -Current Size (cm) - Width 0.7 -Current Size (cm) - Depth 0.1 -Total Square Cm 0.56 -Photo Taken No -Epithelialization None Present -Tunneling No -Undermining/Tunneling No -Circular Undermining No -Exudate Amt Small -Exudate Type Serosanguineous -Wound Margin Distinct, Outline Attached -Granulation Amt Medium (34-66%) -Granulation Quality [place] -Slough/Fibrin Yes -Necrosis Amt Medium (34-66%) -Necrotic Tissue Type Eschar -Texture (Sherin-wound Skin Appearance) Assessed,Callus ,Scarring -Moisture (Sherin-wound Skin Appearance) Assessed,Dry/ Scaly -Color (Sherin-wound Skin Appearance) Assessed -Temperature (Sherin-wound Skin No Abnormality Appearance) (Pt Warm) -Tenderness on Palpation (Sherin-wound No Skin Appearance) -Ulcer Cleansing Rinsed/ Irrigated with Saline -Foul Odor after Cleansing No -Anesthetic Used 5% Lidocaine Gel WC - Nurse 2 - General Ulcer CM Notes Start: 02/27/21 08:18 Freq: Status: Active Protocol: Activity Type Activity Date Activity User E-Sign Co-Sign Detail Recorded Client Recorded Date Recorded By Document 03/06/21 11:18 [id number] 03/06/21 11:23 03/06/21 11:18 Wound Center Nurse 2 -Time 11:20 -Correct Patient Yes -Correct Side, Site, Position Yes -Correct Procedure Yes -Procedure Performed Yes -Type of Procedure Debridement -Clinical Debridement Subcutaneous -Tissue Removed Subcutaneous -Post Debridement (cm) - Length 1.3 -Post Debridement (cm) - Width 0.9 -Post Debridement (cm) - Depth 0.1 -Total Square (Post) (cm) 1.17 -Area of Debridement (cm) - Length 1.3 -Area of Debridement (cm) - Width 0.9 -Total Square (Area) (cm) 1.17 -Tunneling No -Undermining/Tunneling No -Circular Undermining No -Wound/Ulcer Outcome Not Healed -Ulcer Cleansing Rinsed/ Irrigated with Saline -Foul Odor after Cleansing No -Bioengineered Tissue No -Bleeding Controlled with Pressure -Offloading Yes -Type of Offloading Camwalker -Treatment Response Procedure Tolerated Well -Debridement - Subq, 1st 20sq cm Yes Pain Scale: 0-10 Numeric Is Patient Pain Free? Yes - Nurse 3 - General Ulcer D/C NN Start: 02/27/21 08:18 Freq: Status: Active Protocol: Activity Type Activity Date Activity User E-Sign Co-Sign Detail Recorded Client Recorded Date Recorded By Document 03/06/21 11:28 [facility] [id number] 03/06/21 11:29 [facility] 03/06/21 11:28 Wound Care Nurse 3 #2 l Grt Toe Plantar -Ulcer Cleansing Rinsed/ Irrigated with Saline -Foul Odor after Cleansing No -Primary Dressing Applied Fibracol Plus 4x4 -Primary Dressing Covered/Secured with Dry Gauze, Secured with Tape -Fibracol Plus 4x4 1 Treatment Response Procedure Tolerated Well Pain Scale: 0-10 Numeric Is Patient Pain Free? Yes WC - Visit Discharge Discharge Condition Stable Ambulatory Status Ambulatory Transportation Private Auto Wound debrided: Hallux Laterality: Right Wound Grade/Stage: [place] 3 Type of Debridement: Excisional debridement Anesthesia Used: 4% Lidocaine Solution Depth: in the subcutaneous layer Percentage of wound debrided: 100 Instrument Used: 3mm curette Tissue Removed: includes fibrous, devitalized, biofilm, callus and slough tissue Severity: Fat Layer Exposed Amount of bleeding with debridement: Mild Bleeding Controlled with: Pressure Patient tolerated procedure: Patient tolerated procedure well Assessment/Plan Assessment/Plan (1) Abscess of left great toe: CODE(S): L02.612 - Cutaneous abscess of left foot (2) Non-pressure chronic ulcer of other part of left foot with fat layer exposed: CODE(S): L97.522 - Non-pressure chronic ulcer of other part of left foot with fat layer exposed (3) Obesity (BMI 30-39.9): CODE(S): E66.9 - Obesity, unspecified QUALIFIERS: Obesity type: due to excess calories Serious obesity comorbidity presence: with serious comorbidity (4) Type 2 diabetes mellitus with diabetic polyneuropathy: CODE(S): E11.42 - Type 2 diabetes mellitus with diabetic polyneuropathy QUALIFIERS: Diabetes mellitus alf insulin use: unspecified alf insulin use status Qualified Code(s): E11.42 - Type 2 diabetes mellitus with diabetic polyneuropathy PLAN: Patient seen and examined. Ulceration sites are stable. There is noted increased callus buildup. This is likely due to patient not being debrided this week from missed appointment. Patient is continuing in HBO therapy. Cultures from 01/16/2021 demonstrated Streptococcus agalactiae and Staph aureus as well as Prevotella Bivia. I discussed case with Dr. Lorenzo for continued antibiotic management. Patient keeps getting signs of infection. Patient has possibility of remaining underlying infection. It was determined that patient should be started on augmentin. Patient has since finished her prescription. With worsening signs of infection noted a new culture was obtained today and patient was started on Augmentin which was sent to her pharmacy of choice. Patient also had a hemoglobin A1c 01/24/2021 was 9.5%. Albumin 02/02/2021 of 3.4. CRP 02/02/2021 of 6.25. ESR on 02/02/2021 was 23. White blood cell count of 9.0 on 02/02/2021 During recent inpatient admission for reoccurring infection to her hallux wound patient saw the hospital base filler on 12/20/20 where dietary counseling was given to address low albumin and high blood sugar to better optimize patient for healing. MRI obtained while in the hospital on 12/20/2020 demonstrated no evidence of o steomyelitis to the left hallux but did show swelling and cellulitis after treatment course of antibiotics. Patient is noted to have recurrent signs of infection to the hallux consistent with infection. There is concern the infection could have reinfected the bone. No signs of infection recur since patient comes off the antibiotics and sometimes remain even while on the antibiotics even though not as severe Blood flow studies reviewed. Venous studies showed patent deep veins. Arterial studies showed Right OSVALDO 1.08 and TBI 0.99 and left OSVALDO 1.02 and TBI 1.07 with bilateral triphasic pulses noted. This should prove adequate to allow healing. After verbal consent was obtained sharp excisional debridement was carried out which was well tolerated with patient's neuropathy. Continue wound care daily with silver dressing. Discussed importance of offloading with offloaded surgical shoe or cam boot with offloading pad. Patient did not tolerate an offloading by a total contact cast and does not wish to return to this option in the future. Patient presents today in offloaded cam boot that she said she was able to find at home. The offloaded CAM boot is also a valid offloading option for the patient. Reiterated patient the importance of offloading for wound healing. Discussed that the amount of callus buildup is suggestive of too much pressure to the ulcerative site. Discussed proper blood sugar control, diet, wound care, and offloading to better allow healing. Discussed signs of infection to watch out for and to contact if any concerns arise. Patient educated on signs to watch out for and if seen patient contact doctor's office or go to the emergency room. Patient to finish course of antibiotics. Patient has a diabetic foot ulceration that has failed to show measurable signs of healing after completing 30 consecutive days of standard wound care. We will discuss to see if patient might be a potential candidate for hyperbaric oxygen therapy. This would include further work up with labs, imaging, and clearance consultation. If patient is approved for hyperbaric oxygen therapy our goals would be to get progression and healing of patient's wounds while continuing regular debridements, monitoring, offloading, medical optimizing and monitoring. All questions answered. Patient noted to have started HBO therapy. Patient has since gotten tubes plac ed in her ears by ENT in order to better allow for HBO therapy. Patient is still not being able to drive every day due to extremes in blood sugar. Discussed referral to endocrinology to better control her blood sugars. Patient is agreeable. Referral was sent to Dr. Man. Follow up 1 week. This note was generated with [employer] dictation software. It may contain incorrect words, spelling, and punctuation that were not noted in checking the note before signing.
[2021-03-12 08:11] LABS: Bedside Glucose 323 mg/dL (70-110)
[2021-03-13 08:01] LABS: Bedside Glucose 261 mg/dL (70-110)
[2021-03-13 11:05] VITALS: BP 158/85; PULSE 88; RESP 16; TEMP 36.2; BMI 39.2
--- NOTE | 2021-03-13 12:55 | PN.PCM_ITS ---
History of Present Illness Date of Service: 03/13/21 Chief Complaint: Ulceration, infection, and osteomyelitis of the left hallux. History of Wound: Patient is a 49 year old female who presents with plantar left hallux ulceration. Patient has had multiple previous infections to this wound. Patient has had both cellulitis and osteomyelitis noted to this wound. She has been hospitalized for this on multiple occasions. She has been following up with infectious disease with Dr. Lorenzo for management. 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 She would not like to lose this toe. Patient has been offloading with offloaded surgical shoe or cam boot. Patient has been struggling with buildup of callus to ulcer site. 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 Patient was most recently admitted to the hospital in November 2019 for worsening infection. During admission in October 2019 patient was also noted during that hospital stay to have an SEUN from combination of vancomycin and IV dye contrast. Patient has recently finished dialysis with return of normal kidney function. Patient seen in my office on 12/20/2020 at which point she was sent to emergency room for admittance from 12/20/2020 to 12/22/2020. Cultures were obtained and 12/20/2020 demonstrating strep agalactiae and strep epididymis. Blood work from this admission demonstrated a white blood cell count of 7.7, ESR of 18, hemoglobin A1c of 10.8 and CRP of 8.35. A new MRI was obtained of the left foot showing no further evidence of osteomyelitis of the hallux. Patient was seen by infectious disease and was discharged on oral antibiotics of cephalexin and do xycycline. After finishing these antibiotics symptoms have returned. Cultures obtained 01/16/21 grew prevotella bivia, MSSA, and strep agalactiae. Patient relates that she is currently taking the Augmentin. She was seen in the emergency room over the weekend 02/02/2021 at which point Bactrim was prescribed for her at that time. Patient had a white blood cell count of 9.0, ESR of 23, CRP of 6.25, albumin of 3.4, creatinine of 0.79. Patient went to the ED for worsening pain to her left hallux wound. Hemoglobin A1c obtained at the [facility] showed results of 9.5% on 01/24/2021. Referral was sent to Dr. Man and nanotechnology engineering technologist for further blood glucose control. Patient is yet to make appointment. Patient is not been able to dive during HBO therapy due to extremes in blood sugar. Patient has started hyperbaric oxygen therapy to assist in wound healing Progress of Wound: Stable Subjective Subjective Patient seen and examined resting comfortably. Patient denies any new pedal complaints. Patient denies any nausea, fever, chills, chest pain, shortness of breath, cough, streaking, purulence, vomiting. Patient relates that her blood sugar was within range when she was at home but by the time she got to the facility had elevated to the point where she was no longer eligible to dive this morning. Patient relates that she has only been able to do HBO handful of times due to extremes in blood sugars Objective Data Objective Data Vital Signs: Vital Signs Temp Pulse Resp BP 97.1 F L 88 16 158/85 H 03/13/21 11:05 03/13/21 11:05 03/13/21 11:05 03/13/21 11:05 Oxygen Delivery Method Room Air Body Mass Index (BMI) 39.2 Lab / Micro Data Labs: Laboratory Results - last 24 hr 03/13/21 07:56 POC Glucose 261 H Physical Exam Narrative Const alert and no apparent distress General Appearance: cooperative and comfortable Lymph Lymphatic: no lymphedema noted Resp normal respiratory effort Effort and Inspection: able to speak in complete sentences Extremity normal capillary refill, no calf tenderness and no pedal edema General Extremity: no tenderness to palpation of joints or extremities; Negative for clubbing or cyanosis Peripheral Pulses: Yes posterior tibial pulses present right 2+ and dorsalis pedis pulses present right 2+ Skin General Skin Exam: Negative for ecchymosis, erythema, eschar, pallor or dermatitis Rashes: no rashes Wounds: wounds noted Wound Narrative: ulcers noted to left medial plantar hallux. No malodor, probing to bone, streaking, fluctuation, crepitus. Skin is atrophic and hairless. Mild surrounding callus tissue noted. Granular base. Patient has minor erythema noted to entire hallux this has possibly been chronic and has been present for several months without significant change or resolution with antibiotics. Serosanguineous drainage noted. Left second digit noted to have dry dorsal skin from previous blister secondary to total contact cast. Stable no signs of infection no wound. 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 Neuro Gait (Neuro): normal gait Sensory Exam: extremities light-touch: decreased Motor Exam: strength 5/5 throughout Psych Appearance: appropriate Attitude: calm Debridement Note Debridement Note Post-Debridement Measurements and Additional Note: Post-Debridement Measurements/Treatment - Nurse 1 - General Ulcer Assessment Start: 02/27/21 08:18 Freq: Status: Active Protocol: EVIN.LOWEXDileep Activity Type Activity Date Activity User E-Sign Co-Sign Detail Recorded Client Recorded Date Recorded By Document 03/06/21 10:29 [facility] [id number] 03/06/21 10:34 [facility] Document 03/13/21 11:05 [facility] [id number] 03/13/21 11:10 [facility] 03/06/21 03/13/21 10:29 11:05 - Today's Visit Information Type of service Follow-up Visit Follow-up Visit (Physician/CONE WORKER (Physician/CONE WORKER ) ) Arrival Mode Ambulatory Ambulatory Transfer Assistance None None Patient Identification Verified (Name & Yes Yes ) Patient Requires Transmission-Based No No Precautions Height and Weight Body Mass Index (BMI) 39.2 39.2 BMI Classification Obese Obese Vital Signs Temperature (97.8 F-99.1 F) 97.9 F 97.1 F L Temperature Source Temporal Temporal Pulse Rate (60-100) 83 88 Pulse Location Monitor Monitor Respiratory Rate (12-18) 16 16 Respiratory rate source Observation Observation Oxygen Delivery Method Room Air Room Air Blood Pressure (90/60-120/80) 148/74 H 158/85 H Blood Pressure Mean (mm Hg) 98 109 Source Monitor Monitor Position Sitting Blood Pressure Location Left Forearm History Since Last Visit- (Skip if this is Patient's initial visit) Have you changed medications since your No No last visit? Any new allergies or adverse reactions No No Had a fall/change in ADL's that may No No increase risk of falls Signs or symptoms of abuse and/or No No neglect since last visit Have you been in the hospital since your No No last visit? Has dressing in place as prescribed Yes No Has compression in place as prescribed N/A N/A Has offloadiing in place as prescribed N/A N/A Experienced any changes in pain level or No No management Left Footwear Multipodus Regular Shoe Splint/Boot Right Footwear Regular Shoe Regular Shoe Pain Scale: 0-10 Numeric Is Patient Pain Free? Yes Yes - Nurse 1 - General Ulcer Measurement Start: 02/27/21 08:18 Freq: Status: Active Protocol: Activity Type Activity Date Activity User E-Sign Co-Sign Detail Recorded Client Recorded Date Recorded By Document 03/06/21 10:29 [facility] [id number] 03/06/21 10:34 [facility] Document 03/13/21 11:05 [facility] [id number] 03/13/21 11:10 [facility] 03/06/21 03/13/21 10:29 11:05 Wound Center Nurse 1 #2 l Grt Toe Plantar -Combined with other wound No No -Current Size (cm) - Length 0.8 0.8 -Current Size (cm) - Width 0.7 0.6 -Current Size (cm) - Depth 0.1 0.2 -Total Square Cm 0.56 0.48 -Photo Taken No No -Epithelialization None Present None Present -Tunneling No No -Undermining/Tunneling No No -Circular Undermining No No -Exudate Amt Small Small -Exudate Type Serosanguineous Serosanguineous -Wound Margin Distinct, Distinct, Outline Outline Attached Attached -Granulation Amt Medium (34-66%) Small (1-33%) -Granulation Quality [place] Red -Slough/Fibrin Yes Yes -Necrosis Amt Medium (34-66%) Large (67-100%) -Necrotic Tissue Type Eschar Adherent Slough -Texture (Sherin-wound Skin Appearance) Assessed,Callus Assessed,Callus ,Scarring ,Scarring -Moisture (Sherin-wound Skin Appearance) Assessed,Dry/ Assessed,Dry/ Scaly Scaly -Color (Sherin-wound Skin Appearance) Assessed Assessed -Temperature (Sherin-wound Skin No Abnormality No Abnormality Appearance) (Pt Warm) (Pt Warm) -Tenderness on Palpation (Sherin-wound No No Skin Appearance) -Ulcer Cleansing Rinsed/ Rinsed/ Irrigated with Irrigated with Saline Saline -Foul Odor after Cleansing No No -Anesthetic Used 5% Lidocaine 5% Lidocaine Gel Gel - Nurse 2 - General Ulcer CM Notes Start: 02/27/21 08:18 Freq: Status: Active Protocol: Activity Type Activity Date Activity User E-Sign Co-Sign Detail Recorded Client Recorded Date Recorded By Document 03/06/21 11:18 [id number] 03/06/21 11:23 Document 03/13/21 11:15 MW [id number] 03/13/21 11:16 MW 03/06/21 03/13/21 11:18 11:15 Wound Center Nurse 2 #2 l Grt Toe Plantar -Time 11:20 11:15 -Correct Patient Yes Yes -Correct Side, Site, Position Yes Yes -Correct Procedure Yes Yes -Procedure Performed Yes Yes -Type of Procedure Debridement Debridement -Clinical Debridement Subcutaneous Subcutaneous -Tissue Removed Subcutaneous Subcutaneous -Post Debridement (cm) - Length 1.3 0.9 -Post Debridement (cm) - Width 0.9 0.6 -Post Debridement (cm) - Depth 0.1 0.1 -Total Square (Post) (cm) 1.17 0.54 -Area of Debridement (cm) - Length 1.3 0.9 -Area of Debridement (cm) - Width 0.9 0.6 -Total Square (Area) (cm) 1.17 0.54 -Tunneling No No -Undermining/Tunneling No No -Circular Undermining No No -Wound/Ulcer Outcome Not Healed Not Healed -Ulcer Cleansing Rinsed/ Rinsed/ Irrigated with Irrigated with Saline Saline -Foul Odor after Cleansing No No -Bioengineered Tissue No No -Bleeding Controlled with Pressure Pressure -Offloading Yes No -Type of Offloading Camwalker -Treatment Response Procedure Procedure Tolerated Well Tolerated Well -Debridement - Subq, 1st 20sq cm Yes Yes Pain Scale: 0-10 Numeric Is Patient Pain Free? Yes Yes WC - Nurse 3 - General Ulcer D/C NN Start: 02/27/21 08:18 Freq: Status: Active Protocol: Activity Type Activity Date Activity User E-Sign Co-Sign Detail Recorded Client Recorded Date Recorded By Document 03/06/21 11:28 [facility] [id number] 03/06/21 11:29 [facility] Document 03/13/21 11:16 MW [id number] 03/13/21 11:17 MW 03/06/21 03/13/21 11:28 11:16 Wound Care Nurse 3 #2 l Grt Toe Plantar -Ulcer Cleansing Rinsed/ Rinsed/ Irrigated with Irrigated with Saline Saline -Foul Odor after Cleansing No No -Negative Pressure Wound Therapy N/A -Primary Dressing Applied Fibracol Plus Promogran 4x4 Maryuri Matter -Primary Dressing Covered/Secured with Dry Gauze, Dry Gauze, Secured with Secured with Tape Tape -Fibracol Plus 4x4 1 -Promogran Maryuri Matter 1 Treatment Response Procedure Procedure Tolerated Well Tolerated Well Pain Scale: 0-10 Numeric Is Patient Pain Free? Yes Yes Teaching: Wound Center Dressing Your Wound -Person Taught Patient -Teaching Method Discussion, Demonstration -Response to teaching Verbalize understanding WC - Visit Discharge Discharge Condition Stable Stable Ambulatory Status Ambulatory Ambulatory Transportation Private Auto Private Auto Accompanied by self Medication Reconcilliation completed & No provided to patient/care provider Clinical Summary of Care Provided Yes Wound debrided: Hallux Laterality: Left Wound Grade/Stage: Bucio 3 Type of Debridement: Excisional debridement Anesthesia Used: 4% Lidocaine Solution Depth: in the subcutaneous layer Percentage of wound debrided: 100 Instrument Used: 3mm curette Tissue Removed: includes fibrous, devitalized, biofilm, callus and slough tissue Severity: Fat Layer Exposed Amount of bleeding with debridement: Mild Bleeding Controlled with: Pressure Patient tolerated procedure: Patient tolerated procedure well Assessment/Plan Assessment/Plan (1) Abscess of left great toe: CODE(S): L02.612 - Cutaneous abscess of left foot (2) Non-pressure chronic ulcer of other part of left foot with fat layer exposed: CODE(S): L97.522 - Non-pressure chronic ulcer of other part of left foot with fat layer exposed (3) Obesity (BMI 30-39.9): CODE(S): E66.9 - Obesity, unspecified QUALIFIERS: Obesity type: due to excess calories Serious obesity comorbidity presence: with serious comorbidity (4) Type 2 diabetes mellitus with diabetic polyneuropathy: CODE(S): E11.42 - Type 2 diabetes mellitus with diabetic polyneuropathy QUALIFIERS: Diabetes mellitus residential insulin use: unspecified rodent exterminator insulin use status Qualified Code(s): E11.42 - Type 2 diabetes mellitus with diabetic polyneuropathy PLAN: Patient seen and examined. Ulceration sites are stable. There is noted increased callus buildup. Patient relates that she was unable to dive today for HBO therapy given high blood sugars. Patient has yet to hear from Dr. Man's office endocrinology to try to get better control of her sugars. Patient is only been able to undergo HBO therapy a handful of times since she was approved due to her extremes in blood sugar. Patient also had a hemoglobin A1c 01/24/2021 was 9.5%. Albumin 02/02/2021 of 3.4. CRP 02/02/2021 of 6.25. ESR on 02/02/2021 was 23. White blood cell count of 9.0 on 02/02/2021 During recent inpatient admission for reoccurring infection to her hallux wound patient saw the hospital rental salesperson on 12/20/20 where dietary counseling was given to address low albumin and high blood sugar to better optimize patient for healing. MRI obtained while in the hospital on 12/20/2020 demonstrated no evidence of osteomyelitis to the left hallux but did show swelling and cellulitis after treatment course of antibiotics. Patient is noted to have recurrent signs of infection to the hallux consistent with infection. There is concern the infection could have reinfected the bone. No signs of infection recur since patient comes off the antibiotics and sometimes remain even while on the antibiotics even though not as severe Blood flow studies reviewed. Venous studies showed patent deep veins. Arterial studies showed Right OSVALDO 1.08 and TBI 0.99 and left OSVALDO 1.02 and TBI 1.07 with bilateral triphasic pulses noted. This should prove adequate to allow healing. After verbal consent was obtained sharp excisional debridement was carried out which was well tolerated with patient's neuropathy. Continue wound care daily with maryuri silver dressing. Discussed importance of offloading with offloaded surgical shoe or cam boot with offloading pad. Patient did not tolerate an offloading by a total contact cast and does not wish to return to this option in the future. Patient presents today in offloaded tennis shoe. The offloaded CAM boot is also a valid offloading option for the patient. Reiterated patient the importance of offloading for wound healing. Discussed that the amount of callus buildup is suggestive of too much pressure to the ulcerative site. Discussed proper blood sugar control, diet, wound care, and offloading to better allow healing. Discussed signs of infection to watch out for and to contact if any concerns arise. Patient educated on signs to watch out for and if seen patient contact doctor's office or go to the emergency room. Patient has a diabetic foot ulceration that has failed to show measurable signs of healing after completing 30 consecutive days of standard wound care. We will discuss to see if patient might be a potential candidate for hyperbaric oxygen therapy. This would include further work up with labs, imaging, and clearance consultation. If patient is approved for hyperbaric oxygen therapy our goals would be to get progression and healing of patient's wounds while continuing regular debridements, monitoring, offloading, medical optimizing and monitoring. All questions answered. Patient noted to have started HBO therapy. Patient has since gotten tubes p laced in her ears by ENT in order to better allow for HBO therapy. Patient is still not being able to drive every day due to extremes in blood sugar. Discussed referral to endocrinology to better control her blood sugars. Patient is agreeable. Referral was sent to Dr. Man. Patient has yet to hear from Dr Man's office Follow up 1 week. This note was generated with [employer] dictation software. It may contain incorrect words, spelling, and punctuation that were not noted in checking the note before signing.
[2021-03-14 08:11] LABS: Bedside Glucose 216 mg/dL (70-110)
[2021-03-14 08:34] VITALS: BP 148/78; BP 153/78; PULSE 79; PULSE 82; RESP 17; TEMP 36.2; TEMP 36.3
[2021-03-14 10:40] LABS: Bedside Glucose 274 mg/dL (70-110)
--- NOTE | 2021-03-14 11:57 | HBO.PN.PCM_ITS ---
History of Present Illness Date of Service: 03/14/21 Chief Complaint: Ulceration, infection, and osteomyelitis of the left hallux. History of Wound: Patient is a 49 year old female who presents with plantar left hallux ulceration. Patient has had multiple previous infections to this wound. Patient has had both cellulitis and osteomyelitis noted to this wound. She has been hospitalized for this on multiple occasions. She has been following up with infectious disease with Dr. Lorenzo for management. 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 She would not like to lose this toe. Patient has been offloading with offloaded surgical shoe or cam boot. Patient has been struggling with buildup of callus to ulcer site. 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 Patient was most recently admitted to the hospital in November 2019 for worsening infection. During admission in October 2019 patient was also noted during that hospital stay to have an SEUN from combination of vancomycin and IV dye contrast. Patient has recently finished dialysis with return of normal kidney function. Patient seen in my office on 12/20/2020 at which point she was sent to emergency room for admittance from 12/20/2020 to 12/22/2020. Cultures were obtained and 12/20/2020 demonstrating strep agalactiae and strep epididymis. Blood work from this admission demonstrated a white blood cell count of 7.7, ESR of 18, hemoglobin A1c of 10.8 and CRP of 8.35. A new MRI was obtained of the left foot showing no further evidence of osteomyelitis of the hallux. Patient was seen by infectious disease and was discharged on oral antibiotics of cephalexin and do xycycline. After finishing these antibiotics symptoms have returned. Cultures obtained 01/16/21 grew prevotella bivia, MSSA, and strep agalactiae. Patient relates that she is currently taking the Augmentin. She was seen in the emergency room over the weekend 02/02/2021 at which point Bactrim was prescribed for her at that time. Patient had a white blood cell count of 9.0, ESR of 23, CRP of 6.25, albumin of 3.4, creatinine of 0.79. Patient went to the ED for worsening pain to her left hallux wound. Hemoglobin A1c obtained at the [facility] showed results of 9.5% on 01/24/2021. Referral was sent to Dr. Man and taximeter repairer for further blood glucose control. Patient is yet to make appointment. Patient is not been able to dive during HBO therapy due to extremes in blood sugar. Patient has started hyperbaric oxygen therapy to assist in wound healing Progress of Wound: Stable Objective Data Objective Data Vital Signs: Vital Signs Temp Pulse Resp BP 97.3 F L 82 17 153/78 H 03/14/21 08:34 03/14/21 08:34 03/14/21 08:34 03/14/21 08:34 Oxygen Delivery Method Room Air Body Mass Index (BMI) 39.2 Lab / Micro Data Labs: Laboratory Results - last 24 hr 03/14/21 03/14/21 08:08 10:15 POC Glucose 216 H 274 H Exam Nursing Assessment and Debridement Post-Debridement Measurements and Additional Note: Post-Debridement Measurements/Treatment WC - Nurse 1 - General Ulcer Assessment Start: 02/27/21 08:18 Freq: Status: Active Protocol: WC.LOWEXDileep Activity Type Activity Date Activity User E-Sign Co-Sign Detail Recorded Client Recorded Date Recorded By Document 03/13/21 11:05 [facility] [id number] 03/13/21 11:10 [facility] 03/13/21 11:05 - Today's Visit Information Type of service Follow-up Visit (Physician/DEMONSTRATOR ELECTRIC GAS APPLIANCES ) Arrival Mode Ambulatory Transfer Assistance None Patient Identification Verified (Name & Yes ) Patient Requires Transmission-Based No Precautions Height and Weight Body Mass Index (BMI) 39.2 BMI Classification Obese Vital Signs Temperature (97.8 F-99.1 F) 97.1 F L Temperature Source Temporal Pulse Rate (60-100) 88 Pulse Location Monitor Respiratory Rate (12-18) 16 Respiratory rate source Observation Oxygen Delivery Method Room Air Blood Pressure (90/60-120/80) 158/85 H Blood Pressure Mean (mm Hg) 109 Source Monitor Position Sitting Blood Pressure Location Left Forearm History Since Last Visit- (Skip if this is Patient's initial visit) Have you changed medications since your No last visit? Any new allergies or adverse reactions No Had a fall/change in ADL's that may No increase risk of falls Signs or symptoms of abuse and/or No neglect since last visit Have you been in the hospital since your No last visit? Has dressing in place as prescribed No Has compression in place as prescribed N/A Has offloadiing in place as prescribed N/A Experienced any changes in pain level or No management Left Footwear Regular Shoe Right Footwear Regular Shoe Pain Scale: 0-10 Numeric Is Patient Pain Free? Yes - Nurse 1 - General Ulcer Measurement Start: 02/27/21 08:18 Freq: Status: Active Protocol: Activity Type Activity Date Activity User E-Sign Co-Sign Detail Recorded Client Recorded Date Recorded By Document 03/13/21 11:05 [facility] [id number] 03/13/21 11:10 [facility] 03/13/21 11:05 Wound Center Nurse 1 #2 l Grt Toe Plantar -Combined with other wound No -Current Size (cm) - Length 0.8 -Current Size (cm) - Width 0.6 -Current Size (cm) - Depth 0.2 -Total Square Cm 0.48 -Photo Taken No -Epithelialization None Present -Tunneling No -Undermining/Tunneling No -Circular Undermining No -Exudate Amt Small -Exudate Type Serosanguineous -Wound Margin Distinct, Outline Attached -Granulation Amt Small (1-33%) -Granulation Quality Red -Slough/Fibrin Yes -Necrosis Amt Large (67-100%) -Necrotic Tissue Type Adherent Slough -Texture (Sherin-wound Skin Appearance) Assessed,Callus ,Scarring -Moisture (Sherin-wound Skin Appearance) Assessed,Dry/ Scaly -Color (Sherin-wound Skin Appearance) Assessed -Temperature (Sherin-wound Skin No Abnormality Appearance) (Pt Warm) -Tenderness on Palpation (Sherin-wound No Skin Appearance) -Ulcer Cleansing Rinsed/ Irrigated with Saline -Foul Odor after Cleansing No -Anesthetic Used 5% Lidocaine Gel - Nurse 2 - General Ulcer CM Notes Start: 02/27/21 08:18 Freq: Status: Active Protocol: Activity Type Activity Date Activity User E-Sign Co-Sign Detail Recorded Client Recorded Date Recorded By Document 03/13/21 11:15 MW [id number] 03/13/21 11:16 MW 03/13/21 11:15 Wound Center Nurse 2 -Time 11:15 -Correct Patient Yes -Correct Side, Site, Position Yes -Correct Procedure Yes -Procedure Performed Yes -Type of Procedure Debridement -Clinical Debridement Subcutaneous -Tissue Removed Subcutaneous -Post Debridement (cm) - Length 0.9 -Post Debridement (cm) - Width 0.6 -Post Debridement (cm) - Depth 0.1 -Total Square (Post) (cm) 0.54 -Area of Debridement (cm) - Length 0.9 -Area of Debridement (cm) - Width 0.6 -Total Square (Area) (cm) 0.54 -Tunneling No -Undermining/Tunneling No -Circular Undermining No -Wound/Ulcer Outcome Not Healed -Ulcer Cleansing Rinsed/ Irrigated with Saline -Foul Odor after Cleansing No -Bioengineered Tissue No -Bleeding Controlled with Pressure -Offloading No -Treatment Response Procedure Tolerated Well -Debridement - Subq, 1st 20sq cm Yes Pain Scale: 0-10 Numeric Is Patient Pain Free? Yes WC - Nurse 3 - General Ulcer D/C NN Start: 02/27/21 08:18 Freq: Status: Active Protocol: Activity Type Activity Date Activity User E-Sign Co-Sign Detail Recorded Client Recorded Date Recorded By Document 03/13/21 11:16 MW [id number] 03/13/21 11:17 MW 03/13/21 11:16 Wound Care Nurse 3 #2 l Grt Toe Plantar -Ulcer Cleansing Rinsed/ Irrigated with Saline -Foul Odor after Cleansing No -Negative Pressure Wound Therapy N/A -Primary Dressing Applied Promogran Rain Matter -Primary Dressing Covered/Secured with Dry Gauze, Secured with Tape -Promogran Rain Matter 1 Treatment Response Procedure Tolerated Well Pain Scale: 0-10 Numeric Is Patient Pain Free? Yes Teaching: Wound Center Dressing Your Wound -Person Taught Patient -Teaching Method Discussion, Demonstration -Response to teaching Verbalize understanding WC - Visit Discharge Discharge Condition Stable Ambulatory Status Ambulatory Transportation Private Auto Accompanied by self Medication Reconcilliation completed & No provided to patient/care provider Clinical Summary of Care Provided Yes Assessment/Plan Assessment/Plan (1) Abscess of left great toe: CODE(S): L02.612 - Cutaneous abscess of left foot (2) Non-pressure chronic ulcer of other part of left foot with fat layer exposed: CODE(S): L97.522 - Non-pressure chronic ulcer of other part of left foot with fat layer exposed (3) Obesity (BMI 30-39.9): CODE(S): E66.9 - Obesity, unspecified QUALIFIERS: Obesity type: due to excess calories Serious obesity comorbidity presence: with serious comorbidity Body mass index: BMI 33.0-33.9 Obesity classification: adult class 1 (BMI 30 - 34.9) Qualified Code(s): E66.09 - Other obesity due to excess calories; Z68.33 - Body mass index [BMI] 33.0- 33.9, adult (4) Type 2 diabetes mellitus with diabetic polyneuropathy: CODE(S): E11.42 - Type 2 diabetes mellitus with diabetic polyneuropathy QUALIFIERS: Diabetes mellitus custodial insulin use: unspecified roasterman insulin use status Qualified Code(s): E11.42 - Type 2 diabetes mellitus with diabetic polyneuropathy
[2021-03-15 08:15] LABS: Bedside Glucose 169 mg/dL (70-110)
--- NOTE | 2021-03-15 09:11 | PCM.HBO.PN ---
History of Present Illness Date of Service: 03/15/21 Chief Complaint: Ulceration, infection, and osteomyelitis of the left hallux. History of Wound: Patient is a 49 year old female who presents with plantar left hallux ulceration. Patient has had multiple previous infections to this wound. Patient has had both cellulitis and osteomyelitis noted to this wound. She has been hospitalized for this on multiple occasions. She has been following up with infectious disease with Dr. Lorenzo for management. 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 She would not like to lose this toe. Patient has been offloading with offloaded surgical shoe or cam boot. Patient has been struggling with buildup of callus to ulcer site. 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 Patient was most recently admitted to the hospital in November 2019 for worsening infection. During admission in October 2019 patient was also noted during that hospital stay to have an SEUN from combination of vancomycin and IV dye contrast. Patient has recently finished dialysis with return of normal kidney function. Patient seen in my office on 12/20/2020 at which point she was sent to emergency room for admittance from 12/20/2020 to 12/22/2020. Cultures were obtained and 12/20/2020 demonstrating strep agalactiae and strep epididymis. Blood work from this admission demonstrated a white blood cell count of 7.7, ESR of 18, hemoglobin A1c of 10.8 and CRP of 8.35. A new MRI was obtained of the left foot showing no further evidence of osteomyelitis of the hallux. Patient was seen by infectious disease and was discharged on oral antibiotics of cephalexin and doxycycline. After finishing these antibiotics symptoms have returned. Cultures obtained 01/16/21 grew prevotella bivia, MSSA, and strep agalactiae. Patient relates that she is currently taking the Augmentin. She was seen in the emergency room over the weekend 02/02/2021 at which point Bactrim was prescribed for her at that time. Patient had a white blood cell count of 9.0, ESR of 23, CRP of 6.25, albumin of 3.4, creatinine of 0.79. Patient went to the ED for worsening pain to her left hallux wound. Hemoglobin A1c obtained at the [facility] showed results of 9.5% on 01/24/2021. Referral was sent to Dr. Man and oil field equipment mechanic supervisor for further blood glucose control. Patient is yet to make appointment. Patient is not been able to dive during HBO therapy due to extremes in blood sugar. Patient has started hyperbaric oxygen therapy to assist in wound healing Progress of Wound: Stable Subjective Subjective The patient underwent hyperbaric oxygen therapy today. Today's session represents the 6th such session of an anticipated 30 such sessions. Hyperbaric oxygen therapy was administered today as per the facility's protocol. Hyperbaric oxygen therapy was administered at 2 [place] for 90 minutes with no air breaks. Patient tolerated hyperbaric oxygen therapy well, without complaints or complications. Upon emergence from the hyperbaric chamber, the patient's vital signs remained stable. She was discharged in good condition. Preprocedure and post procedure blood glucose measurements were documented elsewhere. Objective Data Objective Data Vital Signs: Vital Signs Temp Pulse Resp BP 97.3 F L 82 17 153/78 H 03/14/21 08:34 03/14/21 08:34 03/14/21 08:34 03/14/21 08:34 Oxygen Delivery Method Room Air Body Mass Index (BMI) 39.2 Lab / Micro Data Labs: Laboratory Results - last 24 hr 03/14/21 03/15/21 10:15 08:11 POC Glucose 274 H 169 H Exam Physical Exam Const alert, oriented x3 and no apparent distress General Appearance: cooperative and comfortable Orientation / Consciousness: awake and oriented to person HEENT normocephalic, head/scalp atraumatic and hearing grossly normal bilaterally Tympanic Membrane: TM's normal bilaterally Resp normal respiratory effort Effort and Inspection: able to speak in complete sentences Neuro oriented x3, CN's II-XII intact bilaterally, moves all extremities and no focal motor deficits Psych mental status grossly normal Appearance: grossly normal Attitude: calm Activity / Motor Behavior: appropriate eye contact Speech: normal speech Mood & Affect: euthymic mood Nursing Assessment and Debridement Post-Debridement Measurements and Additional Note: Post-Debridement Measurements/Treatment - Nurse 1 - General Ulcer Assessment Start: 02/27/21 08:18 Freq: Status: Active Protocol: EVIN.GAIL Activity Type Activity Date Activity User E-Sign Co-Sign Detail Recorded Client Recorded Date Recorded By Document 03/13/21 11:05 [facility] [id number] 03/13/21 11:10 [facility] 03/13/21 11:05 - Today's Visit Information Type of service Follow-up Visit (Physician/PUNCH PRESS OPERATOR ) Arrival Mode Ambulatory Transfer Assistance None Patient Identification Verified (Name & Yes ) Patient Requires Transmission-Based No Precautions Height and Weight Body Mass Index (BMI) 39.2 BMI Classification Obese Vital Signs Temperature (97.8 F-99.1 F) 97.1 F L Temperature Source Temporal Pulse Rate (60-100) 88 Pulse Location Monitor Respiratory Rate (12-18) 16 Respiratory rate source Observation Oxygen Delivery Method Room Air Blood Pressure (90/60-120/80) 158/85 H Blood Pressure Mean (mm Hg) 109 Source Monitor Position Sitting Blood Pressure Location Left Forearm History Since Last Visit- (Skip if this is Patient's initial visit) Have you changed medications since your No last visit? Any new allergies or adverse reactions No Had a fall/change in ADL's that may No increase risk of falls Signs or symptoms of abuse and/or No neglect since last visit Have you been in the hospital since your No last visit? Has dressing in place as prescribed No Has compression in place as prescribed N/A Has offloadiing in place as prescribed N/A Experienced any changes in pain level or No management Left Footwear Regular Shoe Right Footwear Regular Shoe Pain Scale: 0-10 Numeric Is Patient Pain Free? Yes - Nurse 1 - General Ulcer Measurement Start: 02/27/21 08:18 Freq: Status: Active Protocol: Activity Type Activity Date Activity User E-Sign Co-Sign Detail Recorded Client Recorded Date Recorded By Document 03/13/21 11:05 [facility] [id number] 03/13/21 11:10 [facility] 03/13/21 11:05 Wound Center Nurse 1 #2 l Grt Toe Plantar -Combined with other wound No -Current Size (cm) - Length 0.8 -Current Size (cm) - Width 0.6 -Current Size (cm) - Depth 0.2 -Total Square Cm 0.48 -Photo Taken No -Epithelialization None Present -Tunneling No -Undermining/Tunneling No -Circular Undermining No -Exudate Amt Small -Exudate Type Serosanguineous -Wound Margin Distinct, Outline Attached -Granulation Amt Small (1-33%) -Granulation Quality Red -Slough/Fibrin Yes -Necrosis Amt Large (67-100%) -Necrotic Tissue Type Adherent Slough -Texture (Sherin-wound Skin Appearance) Assessed,Callus ,Scarring -Moisture (Sherin-wound Skin Appearance) Assessed,Dry/ Scaly -Color (Sherin-wound Skin Appearance) Assessed -Temperature (Sherin-wound Skin No Abnormality Appearance) (Pt Warm) -Tenderness on Palpation (Sherin-wound No Skin Appearance) -Ulcer Cleansing Rinsed/ Irrigated with Saline -Foul Odor after Cleansing No -Anesthetic Used 5% Lidocaine Gel WC - Nurse 2 - General Ulcer CM Notes Start: 02/27/21 08:18 Freq: Status: Active Protocol: Activity Type Activity Date Activity User E-Sign Co-Sign Detail Recorded Client Recorded Date Recorded By Document 03/13/21 11:15 MW [id number] 03/13/21 11:16 MW 03/13/21 11:15 Wound Center Nurse 2 -Time 11:15 -Correct Patient Yes -Correct Side, Site, Position Yes -Correct Procedure Yes -Procedure Performed Yes -Type of Procedure Debridement -Clinical Debridement Subcutaneous -Tissue Removed Subcutaneous -Post Debridement (cm) - Length 0.9 -Post Debridement (cm) - Width 0.6 -Post Debridement (cm) - Depth 0.1 -Total Square (Post) (cm) 0.54 -Area of Debridement (cm) - Length 0.9 -Area of Debridement (cm) - Width 0.6 -Total Square (Area) (cm) 0.54 -Tunneling No -Undermining/Tunneling No -Circular Undermining No -Wound/Ulcer Outcome Not Healed -Ulcer Cleansing Rinsed/ Irrigated with Saline -Foul Odor after Cleansing No -Bioengineered Tissue No -Bleeding Controlled with Pressure -Offloading No -Treatment Response Procedure Tolerated Well -Debridement - Subq, 1st 20sq cm Yes Pain Scale: 0-10 Numeric Is Patient Pain Free? Yes - Nurse 3 - General Ulcer D/C NN Start: 02/27/21 08:18 Freq: Status: Active Protocol: Activity Type Activity Date Activity User E-Sign Co-Sign Detail Recorded Client Recorded Date Recorded By Document 03/13/21 11:16 MW [id number] 03/13/21 11:17 MW 03/13/21 11:16 Wound Care Nurse 3 #2 l Grt Toe Plantar -Ulcer Cleansing Rinsed/ Irrigated with Saline -Foul Odor after Cleansing No -Negative Pressure Wound Therapy N/A -Primary Dressing Applied Promogran Rain Matter -Primary Dressing Covered/Secured with Dry Gauze, Secured with Tape -Promogran Rain Matter 1 Treatment Response Procedure Tolerated Well Pain Scale: 0-10 Numeric Is Patient Pain Free? Yes Teaching: Wound Center Dressing Your Wound -Person Taught Patient -Teaching Method Discussion, Demonstration -Response to teaching Verbalize understanding WC - Visit Discharge Discharge Condition Stable Ambulatory Status Ambulatory Transportation Private Auto Accompanied by self Medication Reconcilliation completed & No provided to patient/care provider Clinical Summary of Care Provided Yes Charges/Coding Wound Center CF Procedures HBO Supervision: [id number] Hyperbaric Oxygen; supervision Assessment/Plan Assessment/Plan (1) Left hallux osteomyelitis: CODE(S): M86.9 - Osteomyelitis, unspecified (2) Diabetic foot ulcer with osteomyelitis: CODE(S): E11.621 - Type 2 diabetes mellitus with foot ulcer; E11.69 - Type 2 diabetes mellitus with other specified complication; L97.509 - Non-pressure chronic ulcer of other part of unspecified foot with unspecified severity; M86.9 - Osteomyelitis, unspecified (3) Type 2 diabetes mellitus with diabetic polyneuropathy: CODE(S): E11.42 - Type 2 diabetes mellitus with diabetic polyneuropathy QUALIFIERS: Diabetes mellitus equipment operator intermodal yard insulin use: unspecified equipment operator intermodal yard insulin use status Qualified Code(s): E11.42 - Type 2 diabetes mellitus with diabetic polyneuropathy PLAN: The patient tolerated hyperbaric oxygen therapy well which will be continued per her medical plan.
[2021-03-15 09:13] VITALS: BP 141/70; BP 144/89; PULSE 81; PULSE 91; RESP 16; RESP 17; TEMP 36.4
[2021-03-15 10:36] LABS: Bedside Glucose 227 mg/dL (70-110)
[2021-03-16 08:11] LABS: Bedside Glucose 224 mg/dL (70-110)
[2021-03-16 08:46] VITALS: BP 146/72; BP 152/77; PULSE 75; PULSE 90; RESP 16; TEMP 36.7
[2021-03-16 10:51] LABS: Bedside Glucose 164 mg/dL (70-110)
--- NOTE | 2021-03-16 13:20 | PCM.HBO.PN ---
History of Present Illness Date of Service: 03/16/21 Chief Complaint: Ulceration, infection, and osteomyelitis of the left hallux. History of Wound: Patient is a 49 year old female who presents with plantar left hallux ulceration. Patient has had multiple previous infections to this wound. Patient has had both cellulitis and osteomyelitis noted to this wound. She has been hospitalized for this on multiple occasions. She has been following up with infectious disease with Dr. Lorenzo for management. 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 She would not like to lose this toe. Patient has been offloading with offloaded surgical shoe or cam boot. Patient has been struggling with buildup of callus to ulcer site. 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 Patient was most recently admitted to the hospital in November 2019 for worsening infection. During admission in October 2019 patient was also noted during that hospital stay to have an SEUN from combination of vancomycin and IV dye contrast. Patient has recently finished dialysis with return of normal kidney function. Patient seen in my office on 12/20/2020 at which point she was sent to emergency room for admittance from 12/20/2020 to 12/22/2020. Cultures were obtained and 12/20/2020 demonstrating strep agalactiae and strep epididymis. Blood work from this admission demonstrated a white blood cell count of 7.7, ESR of 18, hemoglobin A1c of 10.8 and CRP of 8.35. A new MRI was obtained of the left foot showing no further evidence of osteomyelitis of the hallux. Patient was seen by infectious disease and was discharged on oral antibiotics of cephalexin and doxycycline. After finishing these antibiotics symptoms have returned. Cultures obtained 01/16/21 grew prevotella bivia, MSSA, and strep agalactiae. Patient relates that she is currently taking the Augmentin. She was seen in the emergency room over the weekend 02/02/2021 at which point Bactrim was prescribed for her at that time. Patient had a white blood cell count of 9.0, ESR of 23, CRP of 6.25, albumin of 3.4, creatinine of 0.79. Patient went to the ED for worsening pain to her left hallux wound. Hemoglobin A1c obtained at the [facility] showed results of 9.5% on 01/24/2021. Referral was sent to Dr. Man and real estate intern for further blood glucose control. Patient is yet to make appointment. Patient is not been able to dive during HBO therapy due to extremes in blood sugar. Patient has started hyperbaric oxygen therapy to assist in wound healing Progress of Wound: Stable Subjective Subjective The patient underwent hyperbaric oxygen therapy today. Today's session represents the 7th such session of an anticipated 30 such sessions. Hyperbaric oxygen therapy was administered today as per the facility's protocol. Hyperbaric oxygen therapy was administered at 2 shasta for 90 minutes with no air breaks. Patient tolerated hyperbaric oxygen therapy well, without complaints or complications. Upon emergence from the hyperbaric chamber, the patient's vital signs remained stable. She was discharged in good condition. Preprocedure and post procedure blood glucose measurements were documented elsewhere. Objective Data Objective Data Vital Signs: Vital Signs Temp Pulse Resp BP 98.1 F 90 16 146/72 H 03/16/21 08:46 03/16/21 08:46 03/16/21 08:46 03/16/21 08:46 Oxygen Delivery Method Room Air Body Mass Index (BMI) 39.2 Lab / Micro Data Labs: Laboratory Results - last 24 hr 03/16/21 03/16/21 08:08 10:28 POC Glucose 224 H 164 H Exam Physical Exam Const alert, oriented x3 and no apparent distress General Appearance: cooperative and comfortable HEENT normocephalic, head/scalp atraumatic, EAC's normal and TM's normal bilaterally HEENT Narrative: tympanostomy tubes patent and present TMs bilaterally Psych mental status grossly normal, thought process normal, cooperative and affect normal Assessment/Plan Assessment/Plan (1) Left hallux osteomyelitis: CODE(S): M86.9 - Osteomyelitis, unspecified (2) Diabetic foot ulcer with osteomyelitis: CODE(S): E11.621 - Type 2 diabetes mellitus with foot ulcer; E11.69 - Type 2 diabetes mellitus with other specified complication; L97.509 - Non-pressure chronic ulcer of other part of unspecified foot with unspecified severity; M86.9 - Osteomyelitis, unspecified (3) Diabetic foot ulcer: CODE(S): E11.621 - Type 2 diabetes mellitus with foot ulcer; L97.509 - Non-pressure chronic ulcer of other part of unspecified foot with unspecified severity QUALIFIERS: Diabetic foot ulcer location: toe Diabetes mellitus type: type 2 Laterality: left Non-pressure ulcer stage: with muscle involvement without evidence of necrosis Qualified Code(s): E11.621 - Type 2 diabetes mellitus with foot ulcer; L97.525 - Non-pressure chronic ulcer of other part of left foot with muscle involvement without evidence of necrosis (4) Osteomyelitis: CODE(S): M86.9 - Osteomyelitis, unspecified QUALIFIERS: Osteomyelitis type: subacute Osteomyelitis location: foot Laterality: left Qualified Code(s): M86.272 - Subacute osteomyelitis, left ankle and foot (5) Type 2 diabetes mellitus with diabetic polyneuropathy: CODE(S): E11.42 - Type 2 diabetes mellitus with diabetic polyneuropathy QUALIFIERS: Diabetes mellitus ferry terminal agent insulin use: unspecified ferry terminal agent insulin use status Qualified Code(s): E11.42 - Type 2 diabetes mellitus with diabetic polyneuropathy PLAN: The patient appears to be tolerating hyperbaric oxygen therapy well, which will be continued as per her medical treatment plan.
[2021-03-20 08:39] LABS: Bedside Glucose 267 mg/dL (70-110)
[2021-03-20 10:27] VITALS: BP 155/86; PULSE 84; RESP 16; TEMP 36.9; BMI 39.2
--- NOTE | 2021-03-20 11:14 | PN.PCM_ITS ---
History of Present Illness Date of Service: 03/20/21 Chief Complaint: Ulceration, infection, and osteomyelitis of the left hallux. History of Wound: Patient is a 49 year old female who presents with plantar left hallux ulceration. Patient has had multiple previous infections to this wound. Patient has had both cellulitis and osteomyelitis noted to this wound. She has been hospitalized for this on multiple occasions. She has been following up with infectious disease with Dr. Lorenzo for management. 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 She would not like to lose this toe. Patient has been offloading with offloaded surgical shoe or cam boot. Patient has been struggling with buildup of callus to ulcer site. 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 Patient was most recently admitted to the hospital in November 2019 for worsening infection. During admission in October 2019 patient was also noted during that hospital stay to have an SEUN from combination of vancomycin and IV dye contrast. Patient has recently finished dialysis with return of normal kidney function. Patient seen in my office on 12/20/2020 at which point she was sent to emergency room for admittance from 12/20/2020 to 12/22/2020. Cultures were obtained and 12/20/2020 demonstrating strep agalactiae and strep epididymis. Blood work from this admission demonstrated a white blood cell count of 7.7, ESR of 18, hemoglobin A1c of 10.8 and CRP of 8.35. A new MRI was obtained of the left foot showing no further evidence of osteomyelitis of the hallux. Patient was seen by infectious disease and was discharged on oral antibiotics of cephalexin and do xycycline. After finishing these antibiotics symptoms have returned. Cultures obtained 01/16/21 grew prevotella bivia, MSSA, and strep agalactiae. Patient relates that she is currently taking the Augmentin. She was seen in the emergency room over the weekend 02/02/2021 at which point Bactrim was prescribed for her at that time. Patient had a white blood cell count of 9.0, ESR of 23, CRP of 6.25, albumin of 3.4, creatinine of 0.79. Patient went to the ED for worsening pain to her left hallux wound. Hemoglobin A1c obtained at the [facility] showed results of 9.5% on 01/24/2021. Referral was sent to Dr. Man and traffic checker for further blood glucose control. Patient is yet to make appointment. Patient is not been able to dive during HBO therapy due to extremes in blood sugar. Patient has started hyperbaric oxygen therapy to assist in wound healing Progress of Wound: Stable less erythema and and callus noted Subjective Subjective Patient seen and examined resting comfortably. Patient denies any new pedal complaints. Patient denies any nausea, fever, chills, chest pain, shortness of breath, cough, streaking, purulence, vomiting. Objective Data Objective Data Vital Signs: Vital Signs Temp Pulse Resp BP 98.4 F 84 16 155/86 H 03/20/21 10:27 03/20/21 10:27 03/20/21 10:27 03/20/21 10:27 Oxygen Delivery Method Room Air Body Mass Index (BMI) 39.2 Lab / Micro Data Labs: Laboratory Results - last 24 hr 03/20/21 08:01 POC Glucose 267 H Physical Exam Narrative Const alert and no apparent distress General Appearance: cooperative and comfortable Lymph Lymphatic: no lymphedema noted Resp normal respiratory effort Effort and Inspection: able to speak in complete sentences Extremity normal capillary refill, no calf tenderness and no pedal edema General Extremity: no tenderness to palpation of joints or extremities; Negative for clubbing or cyanosis Peripheral Pulses: Yes posterior tibial pulses present right 2+ and dorsalis pedis pulses present right 2+ Skin General Skin Exam: Negative for ecchymosis, erythema, eschar, pallor or dermatitis Rashes: no rashes Wounds: wounds noted Wound Narrative: ulcers noted to left medial plantar hallux. No malodor, probing to bone, streaking, fluctuation, crepitus. Skin is atrophic and hairless. Mild surrounding callus tissue noted. Granular base. Patient has minor erythema noted to entire hallux this has possibly been chronic and has been present for several months without significant change or resolution with antibiotics but is noted to be improved today. Serosanguineous drainage noted. 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 Neuro Gait (Neuro): normal gait Sensory Exam: extremities light-touch: decreased Motor Exam: strength 5/5 throughout Psych Appearance: appropriate Attitude: calm Debridement Note Debridement Note Post-Debridement Measurements and Additional Note: Post-Debridement Measurements/Treatment EVIN - Nurse 1 - General Ulcer Assessment Start: 02/27/21 08:18 Freq: Status: Active Protocol: ELIZABETHEXT Activity Type Activity Date Activity User E-Sign Co-Sign Detail Recorded Client Recorded Date Recorded By Document 03/06/21 10:29 [facility] [id number] 03/06/21 10:34 [facility] Document 03/13/21 11:05 [facility] [id number] 03/13/21 11:10 BM Document 03/20/21 10:27 DL Desktop 03/20/21 10:32 DL 03/06/21 03/13/21 03/20/21 10:29 11:05 10:27 WC - Today's Visit Information Type of service Follow-up Visit Follow-up Visit Follow-up Visit (Physician/SECURITY SUPPORT ANALYST (Physician/SECURITY SUPPORT ANALYST (Physician/SECURITY SUPPORT ANALYST ) ) ) Arrival Mode Ambulatory Ambulatory Ambulatory Transfer Assistance None None None Patient Identification Verified (Name & Yes Yes Yes ) Patient Requires Transmission-Based No No No Precautions Finger Stick Blood Sugar(mg/dl) (if 261 indicated): Blood Sugar Stated by Patient Height and Weight Body Mass Index (BMI) 39.2 39.2 39.2 BMI Classification Obese Obese Obese Vital Signs Temperature (97.8 F-99.1 F) 97.9 F 97.1 F L 98.4 F Temperature Source Temporal Temporal Temporal Pulse Rate (60-100) 83 88 84 Pulse Location Monitor Monitor Monitor Respiratory Rate (12-18) 16 16 16 Respiratory rate source Observation Observation Observation Oxygen Delivery Method Room Air Room Air Room Air Blood Pressure (90/60-120/80) 148/74 H 158/85 H 155/86 H Blood Pressure Mean (mm Hg) 98 109 109 Source Monitor Monitor Monitor Position Sitting Sitting Blood Pressure Location Left Forearm Left Forearm History Since Last Visit- (Skip if this is Patient's initial visit) Have you changed medications since your No No No last visit? Any new allergies or adverse reactions No No No Had a fall/change in ADL's that may No No No increase risk of falls Signs or symptoms of abuse and/or No No No neglect since last visit Have you been in the hospital since your No No No last visit? Has dressing in place as prescribed Yes No Has compression in place as prescribed N/A N/A Has offloadiing in place as prescribed N/A N/A Experienced any changes in pain level or No No management Left Footwear Multipodus Regular Shoe Regular Shoe Splint/Boot Right Footwear Regular Shoe Regular Shoe Regular Shoe Pain Scale: 0-10 Numeric Is Patient Pain Free? Yes Yes Yes WC - Nurse 1 - General Ulcer Measurement Start: 02/27/21 08:18 Freq: Status: Active Protocol: Activity Type Activity Date Activity User E-Sign Co-Sign Detail Recorded Client Recorded Date Recorded By Document 03/06/21 10:29 [facility] [id number] 03/06/21 10:34 [facility] Document 03/13/21 11:05 BM [id number] 03/13/21 11:10 BM Document 03/20/21 10:27 DL Desktop 03/20/21 10:32 DL 03/06/21 03/13/21 03/20/21 10:29 11:05 10:27 Wound Center Nurse 1 #2 l Grt Toe Plantar -Combined with other wound No No No -Current Size (cm) - Length 0.8 0.8 0.9 -Current Size (cm) - Width 0.7 0.6 0.6 -Current Size (cm) - Depth 0.1 0.2 0.4 -Total Square Cm 0.56 0.48 0.54 -Photo Taken No No No -Epithelialization None Present None Present None Present -Tunneling No No No -Undermining/Tunneling No No Yes -Undermining/Tunneling Starts (O'clock 12 ) -Undermining/Tunneling Ends (O'clock) 12 -Maximum Distance (cm) 0.2 -Circular Undermining No No Yes -Exudate Amt Small Small Medium -Exudate Type Serosanguineous Serosanguineous Serosanguineous -Wound Margin Distinct, Distinct, Flat & Intact Outline Outline Attached Attached -Granulation Amt Medium (34-66%) Small (1-33%) Medium (34-66%) -Granulation Quality [place] Red Red -Slough/Fibrin Yes Yes Yes -Necrosis Amt Medium (34-66%) Large (67-100%) Medium (34-66%) -Necrotic Tissue Type Eschar Adherent Slough Eschar -Texture (Sherin-wound Skin Appearance) Assessed,Callus Assessed,Callus Assessed, ,Scarring ,Scarring Scarring -Moisture (Sherin-wound Skin Appearance) Assessed,Dry/ Assessed,Dry/ Assessed,Dry/ Scaly Scaly Scaly -Color (Sherin-wound Skin Appearance) Assessed Assessed Assessed -Temperature (Sherin-wound Skin No Abnormality No Abnormality No Abnormality Appearance) (Pt Warm) (Pt Warm) (Pt Warm) -Tenderness on Palpation (Sherin-wound No No No Skin Appearance) -Ulcer Cleansing Rinsed/ Rinsed/ Rinsed/ Irrigated with Irrigated with Irrigated with Saline Saline Saline -Foul Odor after Cleansing No No No -Anesthetic Used 5% Lidocaine 5% Lidocaine 4% Lidocaine Gel Gel Solution WC - Nurse 2 - General Ulcer CM Notes Start: 02/27/21 08:18 Freq: Status: Active Protocol: Activity Type Activity Date Activity User E-Sign Co-Sign Detail Recorded Client Recorded Date Recorded By Document 03/06/21 11:18 JF [id number] 03/06/21 11:23 JF Document 03/13/21 11:15 MW [id number] 03/13/21 11:16 MW Document 03/20/21 10:52 [id number] 03/20/21 11:02 03/06/21 03/13/21 03/20/21 11:18 11:15 10:52 Wound Center Nurse 2 #2 l Grt Toe Plantar -Time 11:20 11:15 10:53 -Correct Patient Yes Yes Yes -Correct Side, Site, Position Yes Yes Yes -Correct Procedure Yes Yes Yes -Procedure Performed Yes Yes Yes -Type of Procedure Debridement Debridement Debridement -Clinical Debridement Subcutaneous Subcutaneous Subcutaneous -Tissue Removed Subcutaneous Subcutaneous Epidermis, Subcutaneous -Post Debridement (cm) - Length 1.3 0.9 0.9 -Post Debridement (cm) - Width 0.9 0.6 0.6 -Post Debridement (cm) - Depth 0.1 0.1 0.1 -Total Square (Post) (cm) 1.17 0.54 0.54 -Area of Debridement (cm) - Length 1.3 0.9 0.9 -Area of Debridement (cm) - Width 0.9 0.6 0.6 -Total Square (Area) (cm) 1.17 0.54 0.54 -Tunneling No No No -Undermining/Tunneling No No No -Circular Undermining No No No -Wound/Ulcer Outcome Not Healed Not Healed Not Healed -Ulcer Cleansing Rinsed/ Rinsed/ Rinsed/ Irrigated with Irrigated with Irrigated with Saline Saline Saline -Foul Odor after Cleansing No No No -Bioengineered Tissue No No No -Bleeding Controlled with Pressure Pressure Pressure -Offloading Yes No Yes -Type of Offloading Camwalker Camwalker -Treatment Response Procedure Procedure Procedure Tolerated Well Tolerated Well Tolerated Well -Debridement - Subq, 1st 20sq cm Yes Yes Yes Pain Scale: 0-10 Numeric Is Patient Pain Free? Yes Yes Yes - Nurse 3 - General Ulcer D/C NN Start: 02/27/21 08:18 Freq: Status: Active Protocol: Activity Type Activity Date Activity User E-Sign Co-Sign Detail Recorded Client Recorded Date Recorded By Document 03/06/21 11:28 [facility] [id number] 03/06/21 11:29 BM Document 03/13/21 11:16 MW [id number] 03/13/21 11:17 MW Document 03/20/21 11:08 [facility] Desktop 03/20/21 11:09 [facility] 03/06/21 03/13/21 03/20/21 11:28 11:16 11:08 Wound Care Nurse 3 #2 l Grt Toe Plantar -Ulcer Cleansing Rinsed/ Rinsed/ Rinsed/ Irrigated with Irrigated with Irrigated with Saline Saline Saline -Foul Odor after Cleansing No No No -Negative Pressure Wound Therapy N/A -Primary Dressing Applied Fibracol Plus Promogran Promogran 4x4 Maryuri Matter Maryuri Matter -Primary Dressing Covered/Secured with Dry Gauze, Dry Gauze, Dry Gauze, Secured with Secured with Secured with Tape Tape Tape -Fibracol Plus 4x4 1 -Promogran Maryuri Matter 1 1 Treatment Response Procedure Procedure Procedure Tolerated Well Tolerated Well Tolerated Well Pain Scale: 0-10 Numeric Is Patient Pain Free? Yes Yes Yes Teaching: Wound Center Dressing Your Wound -Person Taught Patient -Teaching Method Discussion, Demonstration -Response to teaching Verbalize understanding - Visit Discharge Discharge Condition Stable Stable Stable Ambulatory Status Ambulatory Ambulatory Ambulatory Transportation Private Auto Private Auto Private Auto Accompanied by self Medication Reconcilliation completed & No provided to patient/care provider Clinical Summary of Care Provided Yes Wound debrided: Hallux Laterality: Left Wound Grade/Stage: Bucio 3 Type of Debridement: Excisional debridement Anesthesia Used: 4% Lidocaine Solution Depth: in the subcutaneous layer Percentage of wound debrided: 100 Instrument Used: 3mm curette Tissue Removed: includes fibrous, devitalized, biofilm, callus and slough tissue Severity: Fat Layer Exposed Amount of bleeding with debridement: Mild Bleeding Controlled with: Pressure Patient tolerated procedure: Patient tolerated procedure well Assessment/Plan Assessment/Plan (1) Abscess of left great toe: CODE(S): L02.612 - Cutaneous abscess of left foot (2) Non-pressure chronic ulcer of other part of left foot with fat layer exposed: CODE(S): L97.522 - Non-pressure chronic ulcer of other part of left foot with fat layer exposed (3) Obesity (BMI 30-39.9): CODE(S): E66.9 - Obesity, unspecified QUALIFIERS: Obesity type: due to excess calories Obesity classification: adult class 1 (BMI 30 - 34.9) Serious obesity comorbidity presence: with serious comorbidity Body mass index: BMI 33.0-33.9 Qualified Code(s): E66.09 - Other obesity due to excess calories; Z68.33 - Body mass index [BMI] 33.0-33.9, adult (4) Type 2 diabetes mellitus with diabetic polyneuropathy: CODE(S): E11.42 - Type 2 diabetes mellitus with diabetic polyneuropathy QUALIFIERS: Diabetes mellitus chcf insulin use: unspecified terminal operator insulin use status Qualified Code(s): E11.42 - Type 2 diabetes mellitus with diabetic polyneuropathy PLAN: Patient seen and examined. Ulceration sites are stable. There is noted less erythema and callus buildup. Patient relates that she was unable to dive today for HBO therapy given high blood sugars. Patient has yet to hear from Dr. Man's office endocrinology to try to get better control of her sugars. Patient was given information for Dr. Man's office that she would contact them herself we will resend fax as well. Patient is only been able to undergo HBO therapy a handful of times since she was approved due to her extremes in blood sugar. Patient is noting improvement since diving though. Patient presents today ambulating in sandals Patient also had a hemoglobin A1c 01/24/2021 was 9.5%. Albumin 02/02/2021 of 3.4. CRP 02/02/2021 of 6.25. ESR on 02/02/2021 was 23. White blood cell count of 9.0 on 02/02/2021 During recent inpatient admission for reoccurring infection to her hallux wound patient saw the hospital senior technical support engineer on 12/20/20 where dietary counseling was given to address low albumin and high blood sugar to better optimize patient for healing. MRI obtained while in the hospital on 12/20/2020 demonstrated no evidence of osteomyelitis to the left hallux but did show swelling and cellulitis after treatment course of antibiotics. Patient is noted to have recurrent signs of infection to the hallux consistent with infection. There is concern the infection could have reinfected the bone. No signs of infection recur since patient comes off the antibiotics and sometimes remain even while on the antibiotics even though not as severe Blood flow studies reviewed. Venous studies showed patent deep veins. Arterial studies showed Right OSVALDO 1.08 and TBI 0.99 and left OSVALDO 1.02 and TBI 1.07 with bilateral triphasic pulses noted. This should prove adequate to allow healing. After verbal consent was obtained sharp excisional debridement was carried out which was well tolerated with patient's neuropathy. Continue wound care daily with maryuri silver dressing. Discussed importance of offloading with offloaded surgical shoe or cam boot with offloading pad. Patient did not tolerate an offloading by a total contact cast and does not wish to return to this option in the future. P patient has an offloaded CAM boot is also a valid offloading option for the patient. Reiterated patient the importance of offloading for wound healing. Discussed that the amount of callus buildup is suggestive of too much pressure to the ulcerative site. Discussed proper blood sugar control, diet, wound care, and offloading to better allow healing. Discussed signs of infection to watch out for and to contact if any concerns arise. Patient educated on signs to watch out for and if seen patient contact doctor's office or go to the emergency room. Patient has a diabetic foot ulceration that has failed to show measurable signs of healing after completing 30 consecutive days of standard wound care. We will discuss to see if patient might be a potential candidate for hyperbaric oxygen therapy. This would include further work up with labs, imaging, and clearance consultation. If patient is approved for hyperbaric oxygen therapy our goals would be to get progression and healing of patient's wounds while continuing regular debridements, monitoring, offloading, medical optimizing and monitoring. All questions answered. Patient noted to have started HBO therapy. Patient has since gotten tubes placed in her ears by ENT in order to better allow for HBO therapy. Patient is still not being able to dive every day due to extremes in blood sugar. Discussed referral to endocrinology to better control her blood sugars. Patient is agreeable. Referral was sent to Dr. Man. Patient has yet to hear from Dr Man's office Follow up 1 week. This note was generated with [employer] dictation software. It may contain incorrect words, spelling, and punctuation that were not noted in checking the note before signing.
[2021-03-21 08:05] LABS: Bedside Glucose 204 mg/dL (70-110)
[2021-03-21 08:23] VITALS: BP 119/61; BP 120/75; PULSE 76; PULSE 94; RESP 16; RESP 17; TEMP 36.2; TEMP 36.3
[2021-03-21 10:20] LABS: Bedside Glucose 294 mg/dL (70-110)
--- NOTE | 2021-03-21 11:55 | PCM.HBO.PN ---
History of Present Illness Date of Service: 03/21/21 Chief Complaint: Ulceration, infection, and osteomyelitis of the left hallux. History of Wound: Patient is a 49 year old female who presents with plantar left hallux ulceration. Patient has had multiple previous infections to this wound. Patient has had both cellulitis and osteomyelitis noted to this wound. She has been hospitalized for this on multiple occasions. She has been following up with infectious disease with Dr. Lorenzo for management. 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 She would not like to lose this toe. Patient has been offloading with offloaded surgical shoe or cam boot. Patient has been struggling with buildup of callus to ulcer site. 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 Patient was most recently admitted to the hospital in November 2019 for worsening infection. During admission in October 2019 patient was also noted during that hospital stay to have an SEUN from combination of vancomycin and IV dye contrast. Patient has recently finished dialysis with return of normal kidney function. Patient seen in my office on 12/20/2020 at which point she was sent to emergency room for admittance from 12/20/2020 to 12/22/2020. Cultures were obtained and 12/20/2020 demonstrating strep agalactiae and strep epididymis. Blood work from this admission demonstrated a white blood cell count of 7.7, ESR of 18, hemoglobin A1c of 10.8 and CRP of 8.35. A new MRI was obtained of the left foot showing no further evidence of osteomyelitis of the hallux. Patient was seen by infectious disease and was discharged on oral antibiotics of cephalexin and doxycycline. After finishing these antibiotics symptoms have returned. Cultures obtained 01/16/21 grew prevotella bivia, MSSA, and strep agalactiae. Patient relates that she is currently taking the Augmentin. She was seen in the emergency room over the weekend 02/02/2021 at which point Bactrim was prescribed for her at that time. Patient had a white blood cell count of 9.0, ESR of 23, CRP of 6.25, albumin of 3.4, creatinine of 0.79. Patient went to the ED for worsening pain to her left hallux wound. Hemoglobin A1c obtained at the [facility] showed results of 9.5% on 01/24/2021. Referral was sent to Dr. Man and foreman/pile driving and erection for further blood glucose control. Patient is yet to make appointment. Patient is not been able to dive during HBO therapy due to extremes in blood sugar. Patient has started hyperbaric oxygen therapy to assist in wound healing Progress of Wound: Stable less erythema and and callus noted Objective Data Objective Data Patient tolerated HBO treatments well. Patient discharged in good condition. Patient will follow up for further treatments Vital Signs: Vital Signs Temp Pulse Resp BP 97.3 F L 94 16 120/75 03/21/21 08:23 03/21/21 08:23 03/21/21 08:23 03/21/21 08:23 Oxygen Delivery Method Room Air Body Mass Index (BMI) 39.2 Lab / Micro Data Labs: Laboratory Results - last 24 hr 03/21/21 03/21/21 08:03 10:10 POC Glucose 204 H 294 H Exam Nursing Assessment and Debridement Post-Debridement Measurements and Additional Note: Post-Debridement Measurements/Treatment WC - Nurse 1 - General Ulcer Assessment Start: 02/27/21 08:18 Freq: Status: Active Protocol: NANCY Activity Type Activity Date Activity User E-Sign Co-Sign Detail Recorded Client Recorded Date Recorded By Document 03/20/21 10:27 DL Desktop 03/20/21 10:32 DL 03/20/21 10:27 WC - Today's Visit Information Type of service Follow-up Visit (Physician/WO[facility]ER ) Arrival Mode Ambulatory Transfer Assistance None Patient Identification Verified (Name & Yes ) Patient Requires Transmission-Based No Precautions Finger Stick Blood Sugar(mg/dl) (if 261 indicated): Blood Sugar Stated by Patient Height and Weight Body Mass Index (BMI) 39.2 BMI Classification Obese Vital Signs Temperature (97.8 F-99.1 F) 98.4 F Temperature Source Temporal Pulse Rate (60-100) 84 Pulse Location Monitor Respiratory Rate (12-18) 16 Respiratory rate source Observation Oxygen Delivery Method Room Air Blood Pressure (90/60-120/80) 155/86 H Blood Pressure Mean (mm Hg) 109 Source Monitor Position Sitting Blood Pressure Location Left Forearm History Since Last Visit- (Skip if this is Patient's initial visit) Have you changed medications since your No last visit? Any new allergies or adverse reactions No Had a fall/change in ADL's that may No increase risk of falls Signs or symptoms of abuse and/or No neglect since last visit Have you been in the hospital since your No last visit? Left Footwear Regular Shoe Right Footwear Regular Shoe Pain Scale: 0-10 Numeric Is Patient Pain Free? Yes - Nurse 1 - General Ulcer Measurement Start: 02/27/21 08:18 Freq: Status: Active Protocol: Activity Type Activity Date Activity User E-Sign Co-Sign Detail Recorded Client Recorded Date Recorded By Document 03/20/21 10:27 DL Desktop 03/20/21 10:32 DL 03/20/21 10:27 Wound Center Nurse 1 #2 l Grt Toe Plantar -Combined with other wound No -Current Size (cm) - Length 0.9 -Current Size (cm) - Width 0.6 -Current Size (cm) - Depth 0.4 -Total Square Cm 0.54 -Photo Taken No -Epithelialization None Present -Tunneling No -Undermining/Tunneling Yes -Undermining/Tunneling Starts (O'clock 12 ) -Undermining/Tunneling Ends (O'clock) 12 -Maximum Distance (cm) 0.2 -Circular Undermining Yes -Exudate Amt Medium -Exudate Type Serosanguineous -Wound Margin Flat & Intact -Granulation Amt Medium (34-66%) -Granulation Quality Red -Slough/Fibrin Yes -Necrosis Amt Medium (34-66%) -Necrotic Tissue Type Eschar -Texture (Sherin-wound Skin Appearance) Assessed, Scarring -Moisture (Sherin-wound Skin Appearance) Assessed,Dry/ Scaly -Color (Sherin-wound Skin Appearance) Assessed -Temperature (Sherin-wound Skin No Abnormality Appearance) (Pt Warm) -Tenderness on Palpation (Sherin-wound No Skin Appearance) -Ulcer Cleansing Rinsed/ Irrigated with Saline -Foul Odor after Cleansing No -Anesthetic Used 4% Lidocaine Solution EVIN - Nurse 2 - General Ulcer CM Notes Start: 02/27/21 08:18 Freq: Status: Active Protocol: Activity Type Activity Date Activity User E-Sign Co-Sign Detail Recorded Client Recorded Date Recorded By Document 03/20/21 10:52 GISELA [id number] 03/20/21 11:02 GISELA 03/20/21 10:52 Wound Center Nurse 2 -Time 10:53 -Correct Patient Yes -Correct Side, Site, Position Yes -Correct Procedure Yes -Procedure Performed Yes -Type of Procedure Debridement -Clinical Debridement Subcutaneous -Tissue Removed Epidermis, Subcutaneous -Post Debridement (cm) - Length 0.9 -Post Debridement (cm) - Width 0.6 -Post Debridement (cm) - Depth 0.1 -Total Square (Post) (cm) 0.54 -Area of Debridement (cm) - Length 0.9 -Area of Debridement (cm) - Width 0.6 -Total Square (Area) (cm) 0.54 -Tunneling No -Undermining/Tunneling No -Circular Undermining No -Wound/Ulcer Outcome Not Healed -Ulcer Cleansing Rinsed/ Irrigated with Saline -Foul Odor after Cleansing No -Bioengineered Tissue No -Bleeding Controlled with Pressure -Offloading Yes -Type of Offloading Camwalker -Treatment Response Procedure Tolerated Well -Debridement - Subq, 1st 20sq cm Yes Pain Scale: 0-10 Numeric Is Patient Pain Free? Yes - Nurse 3 - General Ulcer D/C NN Start: 02/27/21 08:18 Freq: Status: Active Protocol: Activity Type Activity Date Activity User E-Sign Co-Sign Detail Recorded Client Recorded Date Recorded By Document 03/20/21 11:08 [facility] Desktop 03/20/21 11:09 [facility] 03/20/21 11:08 Wound Care Nurse 3 #2 l Grt Toe Plantar -Ulcer Cleansing Rinsed/ Irrigated with Saline -Foul Odor after Cleansing No -Primary Dressing Applied Promogran Rain Matter -Primary Dressing Covered/Secured with Dry Gauze, Secured with Tape -Promogran Rain Matter 1 Treatment Response Procedure Tolerated Well Pain Scale: 0-10 Numeric Is Patient Pain Free? Yes - Visit Discharge Discharge Condition Stable Ambulatory Status Ambulatory Transportation Private Auto Assessment/Plan Assessment/Plan (1) Left hallux osteomyelitis: CODE(S): M86.9 - Osteomyelitis, unspecified PLAN: Patient will follow up tomorrow for HBO treatments blood sugars stable and vital signs were stable (2) Diabetic foot ulcer with osteomyelitis: CODE(S): E11.621 - Type 2 diabetes mellitus with foot ulcer; E11.69 - Type 2 diabetes mellitus with other specified complication; L97.509 - Non-pressure chronic ulcer of other part of unspecified foot with unspecified severity; M86.9 - Osteomyelitis, unspecified
[2021-03-22 08:31] LABS: Bedside Glucose 62 mg/dL (70-110)
[2021-03-22 08:40] LABS: Bedside Glucose 104 mg/dL (70-110)
[2021-03-22 11:05] LABS: Bedside Glucose 69 mg/dL (70-110)
[2021-03-22 11:05] LABS: Bedside Glucose 55 mg/dL (70-110)
[2021-03-23 08:11] LABS: Bedside Glucose 290 mg/dL (70-110)
[2021-03-26 08:01] LABS: Bedside Glucose 245 mg/dL (70-110)
[2021-03-26 08:28] VITALS: BP 111/55; BP 144/90; PULSE 73; PULSE 86; RESP 16; TEMP 36.3; TEMP 36.6
--- NOTE | 2021-03-26 09:34 | PCM.HBO.PN ---
History of Present Illness Date of Service: 03/26/21 Chief Complaint: Ulceration, infection, and osteomyelitis of the left hallux. History of Wound: Patient is a 49 year old female who presents with plantar left hallux ulceration. Patient has had multiple previous infections to this wound. Patient has had both cellulitis and osteomyelitis noted to this wound. She has been hospitalized for this on multiple occasions. She has been following up with infectious disease with Dr. Lorenzo for management. 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 She would not like to lose this toe. Patient has been offloading with offloaded surgical shoe or cam boot. Patient has been struggling with buildup of callus to ulcer site. 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 Patient was most recently admitted to the hospital in November 2019 for worsening infection. During admission in October 2019 patient was also noted during that hospital stay to have an SEUN from combination of vancomycin and IV dye contrast. Patient has recently finished dialysis with return of normal kidney function. Patient seen in my office on 12/20/2020 at which point she was sent to emergency room for admittance from 12/20/2020 to 12/22/2020. Cultures were obtained and 12/20/2020 demonstrating strep agalactiae and strep epididymis. Blood work from this admission demonstrated a white blood cell count of 7.7, ESR of 18, hemoglobin A1c of 10.8 and CRP of 8.35. A new MRI was obtained of the left foot showing no further evidence of osteomyelitis of the hallux. Patient was seen by infectious disease and was discharged on oral antibiotics of cephalexin and doxycycline. After finishing these antibiotics symptoms have returned. Cultures obtained 01/16/21 grew prevotella bivia, MSSA, and strep agalactiae. Patient relates that she is currently taking the Augmentin. She was seen in the emergency room over the weekend 02/02/2021 at which point Bactrim was prescribed for her at that time. Patient had a white blood cell count of 9.0, ESR of 23, CRP of 6.25, albumin of 3.4, creatinine of 0.79. Patient went to the ED for worsening pain to her left hallux wound. Hemoglobin A1c obtained at the [facility] showed results of 9.5% on 01/24/2021. Referral was sent to Dr. Man and sheet metal journeyman for further blood glucose control. Patient is yet to make appointment. Patient is not been able to dive during HBO therapy due to extremes in blood sugar. Patient has started hyperbaric oxygen therapy to assist in wound healing Progress of Wound: Stable less erythema and and callus noted Subjective Subjective The patient underwent hyperbaric oxygen therapy today. Today's session represents the 9th such session of an anticipated 30 such sessions. Hyperbaric oxygen therapy was administered today as per the facility's protocol. Hyperbaric oxygen therapy was administered at 2 [place] for 90 minutes with no air breaks. Patient tolerated hyperbaric oxygen therapy well, without complaints or complications. Upon emergence from the hyperbaric chamber, the patient's vital signs remained stable. She was discharged in good condition. Preprocedure and post procedure blood glucose measurements were documented elsewhere. Objective Data Objective Data Vital Signs: Vital Signs Temp Pulse Resp BP 97.9 F 86 16 144/90 H 03/26/21 08:28 03/26/21 08:28 03/26/21 08:28 03/26/21 08:28 Oxygen Delivery Method Room Air Body Mass Index (BMI) 39.2 Lab / Micro Data Labs: Laboratory Results - last 24 hr 03/26/21 07:56 POC Glucose 245 H Exam Physical Exam Const alert, oriented x3, no apparent distress and well nourished General Appearance: cooperative and well developed HEENT normocephalic Head and Scalp: atraumatic Resp normal respiratory effort and clear to auscultation bilaterally Cardio regular rate and regular rhythm Psych Appearance: grossly normal Assessment/Plan Assessment/Plan (1) Left hallux osteomyelitis: CODE(S): M86.9 - Osteomyelitis, unspecified (2) Diabetic foot ulcer with osteomyelitis: CODE(S): E11.621 - Type 2 diabetes mellitus with foot ulcer; E11.69 - Type 2 diabetes mellitus with other specified complication; L97.509 - Non-pressure chronic ulcer of other part of unspecified foot with unspecified severity; M86.9 - Osteomyelitis, unspecified
[2021-03-26 10:15] LABS: Bedside Glucose 176 mg/dL (70-110)
[2021-03-27 08:05] LABS: Bedside Glucose 193 mg/dL (70-110)
[2021-03-27 09:04] VITALS: BP 132/70; BP 152/71; PULSE 747; PULSE 82; RESP 16; RESP 18; TEMP 36.7; TEMP 36.8
[2021-03-27 10:15] LABS: Bedside Glucose 132 mg/dL (70-110)
[2021-03-27 10:51] VITALS: BP 132/76; PULSE 82; RESP 16; TEMP 36.8; BMI 39.2
--- NOTE | 2021-03-27 12:46 | PN.PCM_ITS ---
History of Present Illness Date of Service: 03/27/21 Chief Complaint: Ulceration, infection, and osteomyelitis of the left hallux. History of Wound: Patient is a 49 year old female who presents with plantar left hallux ulceration. Patient has had multiple previous infections to this wound. Patient has had both cellulitis and osteomyelitis noted to this wound. She has been hospitalized for this on multiple occasions. She has been following up with infectious disease with Dr. Lorenzo for management. 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 She would not like to lose this toe. Patient has been offloading with offloaded surgical shoe or cam boot. Patient has been struggling with buildup of callus to ulcer site. 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 Patient was most recently admitted to the hospital in November 2019 for worsening infection. During admission in October 2019 patient was also noted during that hospital stay to have an SEUN from combination of vancomycin and IV dye contrast. Patient has recently finished dialysis with return of normal kidney function. Patient seen in my office on 12/20/2020 at which point she was sent to emergency room for admittance from 12/20/2020 to 12/22/2020. Cultures were obtained and 12/20/2020 demonstrating strep agalactiae and strep epididymis. Blood work from this admission demonstrated a white blood cell count of 7.7, ESR of 18, hemoglobin A1c of 10.8 and CRP of 8.35. A new MRI was obtained of the left foot showing no further evidence of osteomyelitis of the hallux. Patient was seen by infectious disease and was discharged on oral antibiotics of cephalexin and do xycycline. After finishing these antibiotics symptoms have returned. Cultures obtained 01/16/21 grew prevotella bivia, MSSA, and strep agalactiae. Patient relates that she is currently taking the Augmentin. She was seen in the emergency room over the weekend 02/02/2021 at which point Bactrim was prescribed for her at that time. Patient had a white blood cell count of 9.0, ESR of 23, CRP of 6.25, albumin of 3.4, creatinine of 0.79. Patient went to the ED for worsening pain to her left hallux wound. Hemoglobin A1c obtained at the [facility] showed results of 9.5% on 01/24/2021. Referral was sent to Dr. Man and diamond assorter for further blood glucose control. Patient is yet to make appointment. Patient is not been able to dive during HBO therapy due to extremes in blood sugar. Patient has started hyperbaric oxygen therapy to assist in wound healing Progress of Wound: Stable erythema and and callus noted Subjective Subjective Patient seen and examined resting comfortably. Patient denies any new pedal complaints. Patient denies any nausea, fever, chills, chest pain, shortness of breath, cough, streaking, purulence, vomiting. Objective Data Objective Data Vital Signs: Vital Signs Temp Pulse Resp BP 98.3 F 82 16 132/76 H 03/27/21 10:51 03/27/21 10:51 03/27/21 10:51 03/27/21 10:51 Oxygen Delivery Method Room Air Body Mass Index (BMI) 39.2 Lab / Micro Data Labs: Laboratory Results - last 24 hr 03/27/21 03/27/21 08:00 10:08 POC Glucose 193 H 132 H Physical Exam Narrative Const alert and no apparent distress General Appearance: cooperative and comfortable Lymph Lymphatic: no lymphedema noted Resp normal respiratory effort Effort and Inspection: able to speak in complete sentences Extremity normal capillary refill, no calf tenderness and no pedal edema General Extremity: no tenderness to palpation of joints or extremities; Negative for clubbing or cyanosis Peripheral Pulses: Yes posterior tibial pulses present right 2+ and dorsalis pedis pulses present right 2+ Skin General Skin Exam: Negative for ecchymosis, erythema, eschar, pallor or dermatitis Rashes: no rashes Wounds: wounds noted Wound Narrative: ulcers noted to left medial plantar hallux. No malodor, probing to bone, streaking, fluctuation, crepitus. Skin is atrophic and hairless. Mild surrounding callus tissue noted. Granular base. Patient has minor erythema noted to entire hallux this has possibly been chronic and has been present for several months without significant change or resolution with antibiotics but is noted to be unchanged today. Serosanguineous drainage noted. 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 Neuro Gait (Neuro): normal gait Sensory Exam: extremities light-touch: decreased Motor Exam: strength 5/5 throughout Psych Appearance: appropriate Attitude: calm Debridement Note Debridement Note Post-Debridement Measurements and Additional Note: Post-Debridement Measurements/Treatment WC - Nurse 1 - General Ulcer Assessment Start: 02/27/21 08:18 Freq: Status: Active Protocol: WC.LOWEXT Activity Type Activity Date Activity User E-Sign Co-Sign Detail Recorded Client Recorded Date Recorded By Document 03/06/21 10:29 [facility] [id number] 03/06/21 10:34 BM Document 03/13/21 11:05 [facility] [id number] 03/13/21 11:10 BMF Document 03/20/21 10:27 DL Desktop 03/20/21 10:32 DL Document 03/27/21 10:51 DL [id number] 03/27/21 10:55 DL 03/06/21 03/13/21 03/20/21 10:29 11:05 10:27 WC - Today's Visit Information Type of service Follow-up Visit Follow-up Visit Follow-up Visit (Physician/MOBILE DEVELOPER (Physician/MOBILE DEVELOPER (Physician/MOBILE DEVELOPER ) ) ) Arrival Mode Ambulatory Ambulatory Ambulatory Transfer Assistance None None None Patient Identification Verified (Name & Yes Yes Yes ) Patient Requires Transmission-Based No No No Precautions Finger Stick Blood Sugar(mg/dl) (if 261 indicated): Blood Sugar Stated by Patient Height and Weight Body Mass Index (BMI) 39.2 39.2 39.2 BMI Classification Obese Obese Obese Vital Signs Temperature (97.8 F-99.1 F) 97.9 F 97.1 F L 98.4 F Temperature Source Temporal Temporal Temporal Pulse Rate (60-100) 83 88 84 Pulse Location Monitor Monitor Monitor Respiratory Rate (12-18) 16 16 16 Respiratory rate source Observation Observation Observation Oxygen Delivery Method Room Air Room Air Room Air Blood Pressure (90/60-120/80) 148/74 H 158/85 H 155/86 H Blood Pressure Mean (mm Hg) 98 109 109 Source Monitor Monitor Monitor Position Sitting Sitting Blood Pressure Location Left Forearm Left Forearm History Since Last Visit- (Skip if this is Patient's initial visit) Have you changed medications since your No No No last visit? Any new allergies or adverse reactions No No No Had a fall/change in ADL's that may No No No increase risk of falls Signs or symptoms of abuse and/or No No No neglect since last visit Have you been in the hospital since your No No No last visit? Has dressing in place as prescribed Yes No Has compression in place as prescribed N/A N/A Has offloadiing in place as prescribed N/A N/A Experienced any changes in pain level or No No management Left Footwear Multipodus Regular Shoe Regular Shoe Splint/Boot Right Footwear Regular Shoe Regular Shoe Regular Shoe Pain Scale: 0-10 Numeric Is Patient Pain Free? Yes Yes Yes 03/27/21 10:51 WC - Today's Visit Information Type of service Follow-up Visit (Physician/MOBILE DEVELOPER ) Arrival Mode Ambulatory Transfer Assistance None Patient Identification Verified (Name & Yes ) Patient Requires Transmission-Based No Precautions Finger Stick Blood Sugar(mg/dl) (if 234 indicated): Blood Sugar Stated by Patient Height and Weight Body Mass Index (BMI) 39.2 BMI Classification Obese Vital Signs Temperature (97.8 F-99.1 F) 98.3 F Temperature Source Temporal Pulse Rate (60-100) 82 Pulse Location Monitor Respiratory Rate (12-18) 16 Respiratory rate source Observation Oxygen Delivery Method Blood Pressure (90/60-120/80) 132/76 H Blood Pressure Mean (mm Hg) 94 Source Monitor Position Blood Pressure Location History Since Last Visit- (Skip if this is Patient's initial visit) Have you changed medications since your No last visit? Any new allergies or adverse reactions No Had a fall/change in ADL's that may No increase risk of falls Signs or symptoms of abuse and/or No neglect since last visit Have you been in the hospital since your No last visit? Has dressing in place as prescribed Yes Has compression in place as prescribed N/A Has offloadiing in place as prescribed Experienced any changes in pain level or No management Left Footwear Slipper Right Footwear Slipper Pain Scale: 0-10 Numeric Is Patient Pain Free? Yes - Nurse 1 - General Ulcer Measurement Start: 02/27/21 08:18 Freq: Status: Active Protocol: Activity Type Activity Date Activity User E-Sign Co-Sign Detail Recorded Client Recorded Date Recorded By Document 03/06/21 10:29 [facility] [id number] 03/06/21 10:34 [facility] Document 03/13/21 11:05 [facility] [id number] 03/13/21 11:10 BM Document 03/20/21 10:27 DL Desktop 03/20/21 10:32 DL Document 03/27/21 10:51 DL [id number] 03/27/21 10:55 DL 03/06/21 03/13/2121 10:29 11:05 10:27 Wound Center Nurse 1 #2 l Grt Toe Plantar -Combined with other wound No No No -Current Size (cm) - Length 0.8 0.8 0.9 -Current Size (cm) - Width 0.7 0.6 0.6 -Current Size (cm) - Depth 0.1 0.2 0.4 -Total Square Cm 0.56 0.48 0.54 -Photo Taken No No No -Epithelialization None Present None Present None Present -Tunneling No No No -Undermining/Tunneling No No Yes -Undermining/Tunneling Starts (O'clock 12 ) -Undermining/Tunneling Ends (O'clock) 12 -Maximum Distance (cm) 0.2 -Circular Undermining No No Yes -Exudate Amt Small Small Medium -Exudate Type Serosanguineous Serosanguineous Serosanguineous -Wound Margin Distinct, Distinct, Flat & Intact Outline Outline Attached Attached -Granulation Amt Medium (34-66%) Small (1-33%) Medium (34-66%) -Granulation Quality Artas Red Red -Slough/Fibrin Yes Yes Yes -Necrosis Amt Medium (34-66%) Large (67-100%) Medium (34-66%) -Necrotic Tissue Type Eschar Adherent Slough Eschar -Structure Exposed -Texture (Sherin-wound Skin Appearance) Assessed,Callus Assessed,Callus Assessed, ,Scarring ,Scarring Scarring -Moisture (Sherin-wound Skin Appearance) Assessed,Dry/ Assessed,Dry/ Assessed,Dry / Scaly Scaly Scaly -Color (Sherin-wound Skin Appearance) Assessed Assessed Assessed -Temperature (Sherin-wound Skin No Abnormality No Abnormality No Abnormality Appearance) (Pt Warm) (Pt Warm) (Pt Warm) -Tenderness on Palpation (Sherin-wound No No No Skin Appearance) -Ulcer Cleansing Rinsed/ Rinsed/ Rinsed/ Irrigated with Irrigated with Irrigated with Saline Saline Saline -Foul Odor after Cleansing No No No -Anesthetic Used 5% Lidocaine 5% Lidocaine 4% Lidocaine Gel Gel Solution 03/27/21 10:51 Wound Center Nurse 1 #2 l Grt Toe Plantar -Combined with other wound -Current Size (cm) - Length 0.6 -Current Size (cm) - Width 0.6 -Current Size (cm) - Depth 0.2 -Total Square Cm 0.36 -Photo Taken No -Epithelialization -Tunneling -Undermining/Tunneling -Undermining/Tunneling Starts (O'clock ) -Undermining/Tunneling Ends (O'clock) -Maximum Distance (cm) -Circular Undermining -Exudate Amt Small -Exudate Type Serosanguineous -Wound Margin Thickened -Granulation Amt Medium (34-66%) -Granulation Quality Red -Slough/Fibrin -Necrosis Amt Large (67-100%) -Necrotic Tissue Type Adherent Slough -Structure Exposed N/A -Texture (Sherin-wound Skin Appearance) Callus -Moisture (Sherin-wound Skin Appearance) Dry/Scaly -Color (Sherin-wound Skin Appearance) No Abnormality -Temperature (Sherin-wound Skin No Abnormality Appearance) (Pt Warm) -Tenderness on Palpation (Sherin-wound No Skin Appearance) -Ulcer Cleansing Wound Cleanser -Foul Odor after Cleansing No -Anesthetic Used 4% Lidocaine Solution WC - Nurse 2 - General Ulcer CM Notes Start: 02/27/21 08:18 Freq: Status: Active Protocol: Activity Type Activity Date Activity User E-Sign Co-Sign Detail Recorded Client Recorded Date Recorded By Document 03/06/21 11:18 [id number] 03/06/21 11:23 Document 03/13/21 11:15 MW [id number] 03/13/21 11:16 MW Document 03/20/21 10:52 [id number] 03/20/21 11:02 Document 03/27/21 11:28 [id number] 03/27/21 11:30 03/06/21 03/13/21 03/20/21 11:18 11:15 10:52 Wound Center Nurse 2 #2 l Grt Toe Plantar -Time 11:20 11:15 10:53 -Correct Patient Yes Yes Yes -Correct Side, Site, Position Yes Yes Yes -Correct Procedure Yes Yes Yes -Procedure Performed Yes Yes Yes -Type of Procedure Debridement Debridement Debridement -Clinical Debridement Subcutaneous Subcutaneous Subcutaneous -Tissue Removed Subcutaneous Subcutaneous Epidermis, Subcutaneous -Post Debridement (cm) - Length 1.3 0.9 0.9 -Post Debridement (cm) - Width 0.9 0.6 0.6 -Post Debridement (cm) - Depth 0.1 0.1 0.1 -Total Square (Post) (cm) 1.17 0.54 0.54 -Area of Debridement (cm) - Length 1.3 0.9 0.9 -Area of Debridement (cm) - Width 0.9 0.6 0.6 -Total Square (Area) (cm) 1.17 0.54 0.54 -Tunneling No No No -Undermining/Tunneling No No No -Circular Undermining No No No -Wound/Ulcer Outcome Not Healed Not Healed Not Healed -Ulcer Cleansing Rinsed/ Rinsed/ Rinsed/ Irrigated with Irrigated with Irrigated with Saline Saline Saline -Foul Odor after Cleansing No No No -Bioengineered Tissue No No No -Bleeding Controlled with Pressure Pressure Pressure -Offloading Yes No Yes -Type of Offloading Camwalker Camwalker -Treatment Response Procedure Procedure Procedure Tolerated Well Tolerated Well Tolerated Well -Debridement - Subq, 1st 20sq cm Yes Yes Yes Pain Scale: 0-10 Numeric Is Patient Pain Free? Yes Yes Yes 03/27/21 11:28 Wound Center Nurse 2 #2 l Grt Toe Plantar -Time 11:28 -Correct Patient Yes -Correct Side, Site, Position Yes -Correct Procedure Yes -Procedure Performed Yes -Type of Procedure Debridement -Clinical Debridement Subcutaneous -Tissue Removed Subcutaneous -Post Debridement (cm) - Length 0.9 -Post Debridement (cm) - Width 0.6 -Post Debridement (cm) - Depth 0.1 -Total Square (Post) (cm) 0.54 -Area of Debridement (cm) - Length 0.9 -Area of Debridement (cm) - Width 0.6 -Total Square (Area) (cm) 0.54 -Tunneling No -Undermining/Tunneling No -Circular Undermining No -Wound/Ulcer Outcome Not Healed -Ulcer Cleansing Rinsed/ Irrigated with Saline -Foul Odor after Cleansing No -Bioengineered Tissue No -Bleeding Controlled with Pressure -Offloading Yes -Type of Offloading Surgical Shoe -Treatment Response Procedure Tolerated Well -Debridement - Subq, 1st 20sq cm Yes Pain Scale: 0-10 Numeric Is Patient Pain Free? Yes - Nurse 3 - General Ulcer D/C NN Start: 02/27/21 08:18 Freq: Status: Active Protocol: Activity Type Activity Date Activity User E-Sign Co-Sign Detail Recorded Client Recorded Date Recorded By Document 03/06/21 11:28 [facility] [id number] 03/06/21 11:29 [facility] Document 03/13/21 11:16 MW [id number] 03/13/21 11:17 MW Document 03/20/21 11:08 [facility] Desktop 03/20/21 11:09 [facility] Document 03/27/21 11:34 [id number] 03/27/21 11:35 03/06/21 03/13/21 03/20/21 11:28 11:16 11:08 Wound Care Nurse 3 #2 l Grt Toe Plantar -Ulcer Cleansing Rinsed/ Rinsed/ Rinsed/ Irrigated with Irrigated with Irrigated with Saline Saline Saline -Foul Odor after Cleansing No No No -Negative Pressure Wound Therapy N/A -Primary Dressing Applied Fibracol Plus Promogran Promogran 4x4 Maryuri Matter Maryuri Matter -Primary Dressing Covered/Secured with Dry Gauze, Dry Gauze, Dry Gauze, Secured with Secured with Secured with Tape Tape Tape -Fibracol Plus 4x4 1 -Promogran Maryuri Matter 1 1 Treatment Response Procedure Procedure Procedure Tolerated Well Tolerated Well Tolerated Well Pain Scale: 0-10 Numeric Is Patient Pain Free? Yes Yes Yes Teaching: Wound Center Dressing Your Wound -Person Taught Patient -Teaching Method Discussion, Demonstration -Response to teaching Verbalize understanding WC - Visit Discharge Discharge Condition Stable Stable Stable Ambulatory Status Ambulatory Ambulatory Ambulatory Transportation Private Auto Private Auto Private Auto Accompanied by self Medication Reconcilliation completed & No provided to patient/care provider Clinical Summary of Care Provided Yes 03/27/21 11:34 Wound Care Nurse 3 #2 l Grt Toe Plantar -Ulcer Cleansing Rinsed/ Irrigated with Saline -Foul Odor after Cleansing No -Negative Pressure Wound Therapy -Primary Dressing Applied Promogran Maryuri Matter -Primary Dressing Covered/Secured with Dry Gauze, Secured with Tape -Fibracol Plus 4x4 -Promogran Maryuri Matter 1 Treatment Response Pain Scale: 0-10 Numeric Is Patient Pain Free? Yes Teaching: Wound Center Dressing Your Wound -Person Taught -Teaching Method -Response to teaching WC - Visit Discharge Discharge Condition Stable Ambulatory Status Ambulatory Transportation Private Auto Accompanied by Medication Reconcilliation completed & Yes provided to patient/care provider Clinical Summary of Care Provided Yes Wound debrided: hallux Laterality: Left Wound Grade/Stage: torres 3 Type of Debridement: Excisional debridement Anesthesia Used: 4% Lidocaine Solution Depth: in the subcutaneous layer Percentage of wound debrided: 100 Instrument Used: 3mm curette Tissue Removed: includes fibrous, devitalized, biofilm, callus and slough tissue Severity: Fat Layer Exposed Amount of bleeding with debridement: Mild Bleeding Controlled with: Pressure Patient tolerated procedure: Patient tolerated procedure well Assessment/Plan Assessment/Plan (1) Abscess of left great toe: CODE(S): L02.612 - Cutaneous abscess of left foot (2) Non-pressure chronic ulcer of other part of left foot with fat layer exposed: CODE(S): L97.522 - Non-pressure chronic ulcer of other part of left foot with fat layer exposed (3) Obesity (BMI 30-39.9): CODE(S): E66.9 - Obesity, unspecified QUALIFIERS: Body mass index: BMI 33.0-33.9 Obesity classification: adult class 1 (BMI 30 - 34.9) Obesity type: due to excess calories Serious obesity comorbidity presence: with serious comorbidity Qualified Code(s): E66.09 - Other obesity due to excess calories; Z68.33 - Body mass index [BMI] 33.0-33.9, adult (4) Type 2 diabetes mellitus with diabetic polyneuropathy: CODE(S): E11.42 - Type 2 diabetes mellitus with diabetic polyneuropathy QUALIFIERS: Diabetes mellitus terminal gauger insulin use: unspecified terminal gauger insulin use status Qualified Code(s): E11.42 - Type 2 diabetes mellitus with diabetic polyneuropathy PLAN: Patient seen and examined. Patient presents today ambulating in sandals Ulceration sites are stable. There is noted less erythema and callus buildup. Patient was able to get ahold of Dr Man's office who relayed they couldn't get her in until August. Patient talked to her PCP, Dr Garcia, who is willing to work with her with his team to better control her sugars. Patient is only been able to undergo HBO therapy a handful of times since she was approved due to her extremes in blood sugar. Patient is noting improvement since diving though. Patient also had a hemoglobin A1c 01/24/2021 was 9.5%. Albumin 02/02/2021 of 3.4. CRP 02/02/2021 of 6.25. ESR on 02/02/2021 was 23. White blood cell count of 9.0 on 02/02/2021 During recent inpatient admission for reoccurring infection to her hallux wound patient saw the hospital learning coach on 12/20/20 where dietary counseling was given to address low albumin and high blood sugar to better optimize patient for healing. MRI obtained while in the hospital on 12/20/2020 demonstrated no evidence of osteomyelitis to the left hallux but did show swelling and cellulitis after treatment course of antibiotics. Patient is noted to have recurrent signs of infection to the hallux consistent with infection. There is concern the infection could have reinfected the bone. No signs of infection recur since patient comes off the antibiotics and sometimes remain even while on the antibiotics even though not as severe Blood flow studies reviewed. Venous studies showed patent deep veins. Arterial studies showed Right OSVALDO 1.08 and TBI 0.99 and left OSVALDO 1.02 and TBI 1.07 with bilateral triphasic pulses noted. This should prove adequate to allow healing. After verbal consent was obtained sharp excisional debridement was carried out which was well tolerated with patient's neuropathy. Continue wound care daily with maryuri silver dressing. Discussed importance of offloading with offloaded surgical shoe or cam boot with offloading pad. Patient did not tolerate an offloading by a total contact cast and does not wish to return to this option in the future. Patient has an offloaded CAM boot is also a valid offloading option for the patient. Reiterated patient the importance of offloading for wound healing. Discussed that the amount of callus buildup is suggestive of too much pressure to the ulcerative site. Discussed proper blood sugar control, diet, wound care, and offloading to better allow healing. Discussed signs of infection to watch out for and to contact if any concerns arise. Patient educated on signs to watch out for and if seen patient contact doctor's office or go to the emergency room. All questions answered. Patient noted to have started HBO therapy. Patient has since gotten tubes placed in her ears by ENT in order to better allow for HBO therapy. Patient is still not being able to dive every day due to extremes in blood sugar. Follow up 1 week. This note was generated with [employer] dictation software. It may contain incorrect words, spelling, and punctuation that were not noted in checking the note before signing.
--- NOTE | 2021-03-27 13:32 | PCM.HBO.PN ---
History of Present Illness Date of Service: 03/27/21 Chief Complaint: Ulceration, infection, and osteomyelitis of the left hallux. History of Wound: Patient is a 49 year old female who presents with plantar left hallux ulceration. Patient has had multiple previous infections to this wound. Patient has had both cellulitis and osteomyelitis noted to this wound. She has been hospitalized for this on multiple occasions. She has been following up with infectious disease with Dr. Lornezo for management. 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 She would not like to lose this toe. Patient has been offloading with offloaded surgical shoe or cam boot. Patient has been struggling with buildup of callus to ulcer site. 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 Patient was most recently admitted to the hospital in November 2019 for worsening infection. During admission in October 2019 patient was also noted during that hospital stay to have an SEUN from combination of vancomycin and IV dye contrast. Patient has recently finished dialysis with return of normal kidney function. Patient seen in my office on 12/20/2020 at which point she was sent to emergency room for admittance from 12/20/2020 to 12/22/2020. Cultures were obtained and 12/20/2020 demonstrating strep agalactiae and strep epididymis. Blood work from this admission demonstrated a white blood cell count of 7.7, ESR of 18, hemoglobin A1c of 10.8 and CRP of 8.35. A new MRI was obtained of the left foot showing no further evidence of osteomyelitis of the hallux. Patient was seen by infectious disease and was discharged on oral antibiotics of cephalexin and doxycycline. After finishing these antibiotics symptoms have returned. Cultures obtained 01/16/21 grew prevotella bivia, MSSA, and strep agalactiae. Patient relates that she is currently taking the Augmentin. She was seen in the emergency room over the weekend 02/02/2021 at which point Bactrim was prescribed for her at that time. Patient had a white blood cell count of 9.0, ESR of 23, CRP of 6.25, albumin of 3.4, creatinine of 0.79. Patient went to the ED for worsening pain to her left hallux wound. Hemoglobin A1c obtained at the [facility] showed results of 9.5% on 01/24/2021. Referral was sent to Dr. Man and net software architect for further blood glucose control. Patient is yet to make appointment. Patient is not been able to dive during HBO therapy due to extremes in blood sugar. Patient has started hyperbaric oxygen therapy to assist in wound healing Progress of Wound: Stable less erythema and and callus noted Subjective Subjective Hyperbaric oxygen therapy was administered as per the facility's protocol. Today's session represents the 10th such session of 30 planned sessions. The patient tolerated hyperbaric oxygen therapy well, without complaints or complications. Upon emergence from the hyperbaric chamber, the patient's vital signs remained stable. Patient was discharged in good condition. She was treated at 2 shasta for 90 minutes, with no air breaks. Pre- and post- blood glucose measurements are documented elsewhere. Objective Data Objective Data Vital Signs: Vital Signs Temp Pulse Resp BP 98.3 F 82 16 132/76 H 03/27/21 10:51 03/27/21 10:51 03/27/21 10:51 03/27/21 10:51 Oxygen Delivery Method Room Air Body Mass Index (BMI) 39.2 Lab / Micro Data Labs: Laboratory Results - last 24 hr 03/27/21 03/27/21 08:00 10:08 POC Glucose 193 H 132 H Exam Physical Exam Const alert, oriented x3, no apparent distress and well nourished General Appearance: cooperative and well developed HEENT normocephalic Head and Scalp: atraumatic Eyes PERRL and EOMs intact bilaterally Resp normal respiratory effort and no use of accessory muscles Effort and Inspection: able to speak in complete sentences Psych affect normal Appearance: grossly normal and well kempt Nursing Assessment and Debridement Post-Debridement Measurements and Additional Note: Post-Debridement Measurements/Treatment - Nurse 1 - General Ulcer Assessment Start: 02/27/21 08:18 Freq: Status: Active Protocol: WC.LOWJOHANNY Activity Type Activity Date Activity User E-Sign Co-Sign Detail Recorded Client Recorded Date Recorded By Document 03/27/21 10:51 DL [id number] 03/27/21 10:55 DL 03/27/21 10:51 - Today's Visit Information Type of service Follow-up Visit (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 ) Arrival Mode Ambulatory Transfer Assistance None Patient Identification Verified (Name & Yes ) Patient Requires Transmission-Based No Precautions Finger Stick Blood Sugar(mg/dl) (if 234 indicated): Blood Sugar Stated by Patient Height and Weight Body Mass Index (BMI) 39.2 BMI Classification Obese Vital Signs Temperature (97.8 F-99.1 F) 98.3 F Temperature Source Temporal Pulse Rate (60-100) 82 Pulse Location Monitor Respiratory Rate (12-18) 16 Respiratory rate source Observation Blood Pressure (90/60-120/80) 132/76 H Blood Pressure Mean (mm Hg) 94 Source Monitor History Since Last Visit- (Skip if this is Patient's initial visit) Have you changed medications since your No last visit? Any new allergies or adverse reactions No Had a fall/change in ADL's that may No increase risk of falls Signs or symptoms of abuse and/or No neglect since last visit Have you been in the hospital since your No last visit? Has dressing in place as prescribed Yes Has compression in place as prescribed N/A Experienced any changes in pain level or No management Left Footwear Slipper Right Footwear Slipper Pain Scale: 0-10 Numeric Is Patient Pain Free? Yes WC - Nurse 1 - General Ulcer Measurement Start: 02/27/21 08:18 Freq: Status: Active Protocol: Activity Type Activity Date Activity User E-Sign Co-Sign Detail Recorded Client Recorded Date Recorded By Document 03/27/21 10:51 DL [id number] 03/27/21 10:55 DL 03/27/21 10:51 Wound Center Nurse 1 #2 l Grt Toe Plantar -Current Size (cm) - Length 0.6 -Current Size (cm) - Width 0.6 -Current Size (cm) - Depth 0.2 -Total Square Cm 0.36 -Photo Taken No -Exudate Amt Small -Exudate Type Serosanguineous -Wound Margin Thickened -Granulation Amt Medium (34-66%) -Granulation Quality Red -Necrosis Amt Large (67-100%) -Necrotic Tissue Type Adherent Slough -Structure Exposed N/A -Texture (Sherin-wound Skin Appearance) Callus -Moisture (Sherin-wound Skin Appearance) Dry/Scaly -Color (Sherin-wound Skin Appearance) No Abnormality -Temperature (Sherin-wound Skin No Abnormality Appearance) (Pt Warm) -Tenderness on Palpation (Sherin-wound No Skin Appearance) -Ulcer Cleansing Wound Cleanser -Foul Odor after Cleansing No -Anesthetic Used 4% Lidocaine Solution WC - Nurse 2 - General Ulcer CM Notes Start: 02/27/21 08:18 Freq: Status: Active Protocol: Activity Type Activity Date Activity User E-Sign Co-Sign Detail Recorded Client Recorded Date Recorded By Document 03/27/21 11:28 JF [id number] 03/27/21 11:30 03/27/21 11:28 Wound Center Nurse 2 -Time 11:28 -Correct Patient Yes -Correct Side, Site, Position Yes -Correct Procedure Yes -Procedure Performed Yes -Type of Procedure Debridement -Clinical Debridement Subcutaneous -Tissue Removed Subcutaneous -Post Debridement (cm) - Length 0.9 -Post Debridement (cm) - Width 0.6 -Post Debridement (cm) - Depth 0.1 -Total Square (Post) (cm) 0.54 -Area of Debridement (cm) - Length 0.9 -Area of Debridement (cm) - Width 0.6 -Total Square (Area) (cm) 0.54 -Tunneling No -Undermining/Tunneling No -Circular Undermining No -Wound/Ulcer Outcome Not Healed -Ulcer Cleansing Rinsed/ Irrigated with Saline -Foul Odor after Cleansing No -Bioengineered Tissue No -Bleeding Controlled with Pressure -Offloading Yes -Type of Offloading Surgical Shoe -Treatment Response Procedure Tolerated Well -Debridement - Subq, 1st 20sq cm Yes Pain Scale: 0-10 Numeric Is Patient Pain Free? Yes - Nurse 3 - General Ulcer D/C NN Start: 02/27/21 08:18 Freq: Status: Active Protocol: Activity Type Activity Date Activity User E-Sign Co-Sign Detail Recorded Client Recorded Date Recorded By Document 03/27/21 11:34 GISELA [id number] 03/27/21 11:35 03/27/21 11:34 Wound Care Nurse 3 #2 l Grt Toe Plantar -Ulcer Cleansing Rinsed/ Irrigated with Saline -Foul Odor after Cleansing No -Primary Dressing Applied Promogran Rain Matter -Primary Dressing Covered/Secured with Dry Gauze, Secured with Tape -Promogran Rain Matter 1 Pain Scale: 0-10 Numeric Is Patient Pain Free? Yes - Visit Discharge Discharge Condition Stable Ambulatory Status Ambulatory Transportation Private Auto Medication Reconcilliation completed & Yes provided to patient/care provider Clinical Summary of Care Provided Yes Assessment/Plan Assessment/Plan (1) Left hallux osteomyelitis: CODE(S): M86.9 - Osteomyelitis, unspecified (2) Diabetic foot ulcer with osteomyelitis: CODE(S): E11.621 - Type 2 diabetes mellitus with foot ulcer; E11.69 - Type 2 diabetes mellitus with other specified complication; L97.509 - Non-pressure chronic ulcer of other part of unspecified foot with unspecified severity; M86.9 - Osteomyelitis, unspecified (3) Non-pressure chronic ulcer of other part of left foot with fat layer exposed: CODE(S): L97.522 - Non-pressure chronic ulcer of other part of left foot with fat layer exposed (4) Osteomyelitis: CODE(S): M86.9 - Osteomyelitis, unspecified QUALIFIERS: Osteomyelitis type: other chronic Osteomyelitis location: foot Laterality: left Qualified Code(s): M86.672 - Other chronic osteomyelitis, left ankle and foot PLAN: The patient appears to be tolerating hyperbaric oxygen therapy well, which will be continued as per the patient's medical plan.
[2021-03-28 08:11] LABS: Bedside Glucose 243 mg/dL (70-110)
[2021-03-28 08:41] VITALS: BP 117/75; BP 139/76; PULSE 76; PULSE 86; RESP 16; RESP 17; TEMP 36.7; TEMP 36.8
[2021-03-28 10:26] LABS: Bedside Glucose 146 mg/dL (70-110)
--- NOTE | 2021-03-28 13:12 | HBO.PN.PCM_ITS ---
History of Present Illness Date of Service: 03/28/21 Chief Complaint: Ulceration, infection, and osteomyelitis of the left hallux. History of Wound: Patient is a 49 year old female who presents with plantar left hallux ulceration. Patient has had multiple previous infections to this wound. Patient has had both cellulitis and osteomyelitis noted to this wound. She has been hospitalized for this on multiple occasions. She has been following up with infectious disease with Dr. Lorenzo for management. 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 She would not like to lose this toe. Patient has been offloading with offloaded surgical shoe or cam boot. Patient has been struggling with buildup of callus to ulcer site. 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 Patient was most recently admitted to the hospital in November 2019 for worsening infection. During admission in October 2019 patient was also noted during that hospital stay to have an SEUN from combination of vancomycin and IV dye contrast. Patient has recently finished dialysis with return of normal kidney function. Patient seen in my office on 12/20/2020 at which point she was sent to emergency room for admittance from 12/20/2020 to 12/22/2020. Cultures were obtained and 12/20/2020 demonstrating strep agalactiae and strep epididymis. Blood work from this admission demonstrated a white blood cell count of 7.7, ESR of 18, hemoglobin A1c of 10.8 and CRP of 8.35. A new MRI was obtained of the left foot showing no further evidence of osteomyelitis of the hallux. Patient was seen by infectious disease and was discharged on oral antibiotics of cephalexin and do xycycline. After finishing these antibiotics symptoms have returned. Cultures obtained 01/16/21 grew prevotella bivia, MSSA, and strep agalactiae. Patient relates that she is currently taking the Augmentin. She was seen in the emergency room over the weekend 02/02/2021 at which point Bactrim was prescribed for her at that time. Patient had a white blood cell count of 9.0, ESR of 23, CRP of 6.25, albumin of 3.4, creatinine of 0.79. Patient went to the ED for worsening pain to her left hallux wound. Hemoglobin A1c obtained at the [facility] showed results of 9.5% on 01/24/2021. Referral was sent to Dr. Man and tip out worker for further blood glucose control. Patient is yet to make appointment. Patient is not been able to dive during HBO therapy due to extremes in blood sugar. Patient has started hyperbaric oxygen therapy to assist in wound healing Progress of Wound: Stable less erythema and and callus noted Objective Data Objective Data Received number treatment 11 of 30 HBO treatments stable vital signs and blood sugars Vital Signs: Vital Signs Temp Pulse Resp BP 98.3 F 86 16 117/75 03/28/21 08:41 03/28/21 08:41 03/28/21 08:41 03/28/21 08:41 Oxygen Delivery Method Room Air Body Mass Index (BMI) 39.2 Lab / Micro Data Labs: Laboratory Results - last 24 hr 03/28/21 03/28/21 08:04 10:23 POC Glucose 243 H 146 H Exam Nursing Assessment and Debridement Post-Debridement Measurements and Additional Note: Post-Debridement Measurements/Treatment WC - Nurse 1 - General Ulcer Assessment Start: 02/27/21 08:18 Freq: Status: Active Protocol: NANCY Activity Type Activity Date Activity User E-Sign Co-Sign Detail Recorded Client Recorded Date Recorded By Document 03/27/21 10:51 DL [id number] 03/27/21 10:55 DL 03/27/21 10:51 WC - Today's Visit Information Type of service Follow-up Visit (Physician/STRADDLE BUGGY OPERATOR ) Arrival Mode Ambulatory Transfer Assistance None Patient Identification Verified (Name & Yes ) Patient Requires Transmission-Based No Precautions Finger Stick Blood Sugar(mg/dl) (if 234 indicated): Blood Sugar Stated by Patient Height and Weight Body Mass Index (BMI) 39.2 BMI Classification Obese Vital Signs Temperature (97.8 F-99.1 F) 98.3 F Temperature Source Temporal Pulse Rate (60-100) 82 Pulse Location Monitor Respiratory Rate (12-18) 16 Respiratory rate source Observation Blood Pressure (90/60-120/80) 132/76 H Blood Pressure Mean (mm Hg) 94 Source Monitor History Since Last Visit- (Skip if this is Patient's initial visit) Have you changed medications since your No last visit? Any new allergies or adverse reactions No Had a fall/change in ADL's that may No increase risk of falls Signs or symptoms of abuse and/or No neglect since last visit Have you been in the hospital since your No last visit? Has dressing in place as prescribed Yes Has compression in place as prescribed N/A Experienced any changes in pain level or No management Left Footwear Slipper Right Footwear Slipper Pain Scale: 0-10 Numeric Is Patient Pain Free? Yes - Nurse 1 - General Ulcer Measurement Start: 02/27/21 08:18 Freq: Status: Active Protocol: Activity Type Activity Date Activity User E-Sign Co-Sign Detail Recorded Client Recorded Date Recorded By Document 03/27/21 10:51 WILL [id number] 03/27/21 10:55 DL 03/27/21 10:51 Wound Center Nurse 1 #2 l Grt Toe Plantar -Current Size (cm) - Length 0.6 -Current Size (cm) - Width 0.6 -Current Size (cm) - Depth 0.2 -Total Square Cm 0.36 -Photo Taken No -Exudate Amt Small -Exudate Type Serosanguineous -Wound Margin Thickened -Granulation Amt Medium (34-66%) -Granulation Quality Red -Necrosis Amt Large (67-100%) -Necrotic Tissue Type Adherent Slough -Structure Exposed N/A -Texture (Sherin-wound Skin Appearance) Callus -Moisture (Sherin-wound Skin Appearance) Dry/Scaly -Color (Sherin-wound Skin Appearance) No Abnormality -Temperature (Sherin-wound Skin No Abnormality Appearance) (Pt Warm) -Tenderness on Palpation (Sherin-wound No Skin Appearance) -Ulcer Cleansing Wound Cleanser -Foul Odor after Cleansing No -Anesthetic Used 4% Lidocaine Solution EVIN - Nurse 2 - General Ulcer CM Notes Start: 02/27/21 08:18 Freq: Status: Active Protocol: Activity Type Activity Date Activity User E-Sign Co-Sign Detail Recorded Client Recorded Date Recorded By Document 03/27/21 11:28 GISELA [id number] 03/27/21 11:30 GISELA 03/27/21 11:28 Wound Center Nurse 2 -Time 11:28 -Correct Patient Yes -Correct Side, Site, Position Yes -Correct Procedure Yes -Procedure Performed Yes -Type of Procedure Debridement -Clinical Debridement Subcutaneous -Tissue Removed Subcutaneous -Post Debridement (cm) - Length 0.9 -Post Debridement (cm) - Width 0.6 -Post Debridement (cm) - Depth 0.1 -Total Square (Post) (cm) 0.54 -Area of Debridement (cm) - Length 0.9 -Area of Debridement (cm) - Width 0.6 -Total Square (Area) (cm) 0.54 -Tunneling No -Undermining/Tunneling No -Circular Undermining No -Wound/Ulcer Outcome Not Healed -Ulcer Cleansing Rinsed/ Irrigated with Saline -Foul Odor after Cleansing No -Bioengineered Tissue No -Bleeding Controlled with Pressure -Offloading Yes -Type of Offloading Surgical Shoe -Treatment Response Procedure Tolerated Well -Debridement - Subq, 1st 20sq cm Yes Pain Scale: 0-10 Numeric Is Patient Pain Free? Yes - Nurse 3 - General Ulcer D/C NN Start: 02/27/21 08:18 Freq: Status: Active Protocol: Activity Type Activity Date Activity User E-Sign Co-Sign Detail Recorded Client Recorded Date Recorded By Document 03/27/21 11:34 GISELA [id number] 03/27/21 11:35 GISELA 03/27/21 11:34 Wound Care Nurse 3 #2 l Grt Toe Plantar -Ulcer Cleansing Rinsed/ Irrigated with Saline -Foul Odor after Cleansing No -Primary Dressing Applied Promogran Rain Matter -Primary Dressing Covered/Secured with Dry Gauze, Secured with Tape -Promogran Rain Matter 1 Pain Scale: 0-10 Numeric Is Patient Pain Free? Yes WC - Visit Discharge Discharge Condition Stable Ambulatory Status Ambulatory Transportation Private Auto Medication Reconcilliation completed & Yes provided to patient/care provider Clinical Summary of Care Provided Yes Assessment/Plan Assessment/Plan (1) Left hallux osteomyelitis: CODE(S): M86.9 - Osteomyelitis, unspecified (2) Diabetic foot ulcer with osteomyelitis: CODE(S): E11.621 - Type 2 diabetes mellitus with foot ulcer; E11.69 - Type 2 diabetes mellitus with other specified complication; L97.509 - Non-pressure chronic ulcer of other part of unspecified foot with unspecified severity; M86.9 - Osteomyelitis, unspecified PLAN: Continue HBO treatments daily follow-up as needed with regular office visits monitoring blood sugars and vital signs
== END 2021-03-28 23:59 ==
LOC: WC 08:30
PROVIDERS: PCP Internal Medicine; Visit Provider Podiatrist Foot & Ankle Surgery
DX: E11.621 Type 2 diabetes mellitus with foot ulcer (principal); L97.522 Non-pressure chronic ulcer of other part of left foot with fat layer exposed; L02.612 Cutaneous abscess of left foot; E66.9 Obesity, unspecified; Z68.33 Body mass index [BMI] 33.0-33.9, adult; E11.42 Type 2 diabetes mellitus with diabetic polyneuropathy; L03.032 Cellulitis of left toe; Z79.4 Long term (current) use of insulin; Z99.2 Dependence on renal dialysis
CPT/HCPCS: 11042; 82962; 99183; G0277

== ENCOUNTER 2021-04-19 16:37 | Observation (INO) | payer MEDICARE, MEDICAID, SELFPAY ==
[2021-04-17 08:13] VITALS: BMI 39.2
[2021-04-19 16:38] VITALS: BP 173/89; PULSE 96; RESP 18; TEMP 36.6; O2SAT 97; BMI 41.5
[2021-04-19 16:46] VITALS: BP 173/89; PULSE 96; RESP 18; TEMP 36.6; O2SAT 97
--- NOTE | 2021-04-19 16:53 | EDS_ITS ---
HPI History of Present Illness Chief Complaint: Wound Informant: patient Onset/Context/Timing Onset: Month(s) Context: Gradual Onset Timing: Waxes and wanes Current Severity: Moderate Maximum Severity: Moderate Narrative Narrative: Patient presents with increased redness and drainage from her chronic left great toe wound. Patient has been battling a diabetic ulcer to the left great toe for several months. She is currently being seen at the wound center and undergoing hyperbaric treatments. She states she has not been able to dive this week because her blood sugars have been too high. She has noted increased redness and odor from the wound over the past couple of days. She does note that her blood sugars were over 300 today. [facility] Medical History SEUN (acute kidney injury) Chronic ulcer of right foot with fat layer exposed Depression with anxiety Diabetic foot ulcer Fibromyalgia Hyperlipidemia Meniere disease Obesity (BMI 30-39.9) Osteomyelitis Osteomyelitis of second toe of right foot Osteomyelitis of toe of right foot Presence of permanent central venous catheter Skin ulcer of left great toe with fat 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 Vascular catheter fitting or adjustment Vertigo Home Medications albuterol sulfate 1 - 2 puff INHALATION Q6H PRN PRN 08/30/19 [History Last Taken 11/08/20] atorvastatin 80 mg PO DAILY 08/30/19 [History Last Taken 12/19/20] dulaglutide 0.75 mg SQ WE 08/30/19 [History Last Taken 12/13/20] duloxetine 60 mg PO DAILY@1800 03/21/20 [History Last Taken 12/19/20] multivitamin with minerals 1 tab PO DAILY 03/21/20 [History Last Taken 12/20/20] pregabalin 100 mg PO BID 03/21/20 [History Last Taken 12/20/20] ergocalciferol (vitamin D2) 50,000 unit PO WE 10/17/20 [History Last Taken 12/20/20] insulin degludec 100 unit SQ DAILY 10/17/20 [History Last Taken 12/20/20] levothyroxine 50 mcg PO DAILY 11/11/20 [History Last Taken 12/20/20] pantoprazole 20 mg PO BID 11/11/20 [History Last Taken 12/20/20] acetaminophen 1,300 mg PO DAILY PRN PRN 12/08/20 [History Last Taken Unknown] biotin 5,000 mcg SL DAILY 12/08/20 [History Last Taken 12/20/20] hydroxyzine pamoate 100 mg PO QHS PRN 12/08/20 [History Last Taken 12/19/20] losartan 50 mg PO DAILY 12/08/20 [History Last Taken 12/20/20] amlodipine 10 mg PO DAILY 12/20/20 [History Last Taken 12/20/20] trazodone 100 mg PO QHS 12/20/20 [History Last Taken 12/19/20] amoxicillin-pot clavulanate 1 tab PO BID 02/02/21 [History Last Taken Unknown] sulfamethoxazole-trimethoprim [Bactrim DS] 1 tab PO Q12H #20 tab 02/02/21 [Rx Last Taken Unknown] amoxicillin-pot clavulanate [Augmentin] 1 tab PO BID 15 Days #30 tab 02/20/21 [Rx Last Taken Unknown] Allergy/AdvReac Type Severity Reaction Status Date / Time clindamycin Allergy Hives Verified 04/19/21 16:37 erythromycin base Allergy Hives Verified 04/19/21 16:37 [From E-Mycin] vancomycin Allergy Hives Verified 04/19/21 16:37 Gadolinium-MRI Contrast AdvReac NEEDS Verified 04/19/21 16:37 Medium FOLLOW-UP [CONTRAST] Iodinated Contrast Media AdvReac NEEDS Verified 04/19/21 16:37 [CONTRASTS] FOLLOW-UP Social History Smoking Status: Current every day smoker tobacco type: cigarettes ROS ROS ED Constitutional Constitutional ED: Denies chills or fever(s) Eyes Eyes: Denies change in vision ENT ENT ED: Denies sore throat Cardiovascular Cardiovascular: Denies chest pain Respiratory/Chest Respiratory/Chest: Denies cough or dyspnea Gastrointestinal Gastrointestinal: Denies abdominal pain, diarrhea, nausea or vomiting Genitourinary Genitourinary ED: Denies dysuria Musculoskeletal Musculoskeletal: Denies back pain Integumentary Reports rash and other Details: Ulceration to the left great toe. Neurologic Neurologic: Denies headache(s) or weakness Psychiatric Psychiatric: Denies anxiety or depression Endocrine Endocrinology: Denies polydipsia or polyuria Allergic/Immunologic Allergic/Immunologic ED: Denies urticaria EXAM Physical Exam Const Vital Signs: 04/19/21 16:38 04/19/21 16:46 Temperature 97.8 F 97.8 F Temperature Source Oral Oral Pulse Rate 96 96 Respiratory Rate 18 18 Blood Pressure 173/89 H 173/89 H Blood Pressure Mean 117 117 Pulse Ox 97 97 Oxygen Delivery Method Room Air Room Air Positive well nourished and well developed General Appearance ED: well developed HEENT Reports normocephalic and head/scalp atraumatic Eyes PERRL and EOMs intact bilaterally Neck supple Chest Wall inspection of chest normal and palpation of chest normal Resp normal respiratory effort and clear to auscultation bilaterally Cardio regular rate and regular rhythm GI normal to inspection, nondistended, normoactive bowel sounds Palpation: soft Extremity Extremity Narrative: Ulceration to the left great toe with erythema and lymphangitic streak up to the level of the ankle. No spontaneous drainage at this time. Neuro oriented x3 Sensorium / Orientation: alert Psych Mood & Affect: tearful MDM MDM MDM Narrative Medical decision making narrative: Patient's prior records are reviewed. Lab work and cultures are ordered along with x-ray of the left foot. She is given IV Zosyn and doxycycline secondary to her allergies and previous cultures. Lab Data Attestation: I reviewed the patient's lab results. Labs: Laboratory Results - last 24 hr 04/19/21 04/19/21 17:13 17:13 WBC 13.9 H RBC 4.75 Hgb 12.9 Hct 40.3 MCV 84.8 MCH 27.2 MCHC 32.0 RDW Std Deviation 43.2 RDW Coeff of Brea 13.9 Plt Count 296 MPV 9.6 Immature Gran % (Auto) 0.400 Neut % (Auto) 70.8 H Lymph % (Auto) 18.4 L [place] % (Auto) 7.8 Eos % (Auto) 2.0 Baso % (Auto) 0.6 Absolute Neuts (auto) 9.9 H Absolute Lymphs (auto) 2.56 Nucleated RBC % 0 ESR 36 H Sodium 137 Potassium 3.7 Chloride 105 Carbon Dioxide 25.0 Anion Gap 7 BUN 15 Creatinine 0.79 Estim Creat Clear Calc 77.51 Est GFR (MDRD) Af Amer 100 Est GFR (MDRD) Non-Af 83 BUN/Creatinine Ratio 19.1 Glucose 132 H Calcium 8.9 C-React Prot Ext Range 23.70 H Radiography Diagnostic Testing: Radiology Impression Foot X-Ray 04/19/21 17:35 IMPRESSION: There is no acute fracture, dislocation or destructive osseous pathology. Electronically Signed: Cesar Laurent DO at 18:08 EDT Tel [phone], Service support , Treatment and Re-Evaluation Comments:: Left foot x-ray per my interpretation reveals no obvious acute bony abnormality. Lab work does reveal elevated white count as well as elevated sed rate and CRP. These are elevated more than her prior visits with similar complaints. Blood sugar this time is 132. With the patient having lab changes and lymphangitic streaking I do feel she would be best treated with IV antibiotics. I will speak with hospitalist regarding admission. Discharge Plan Triage Chief Complaint: Wound ED Provider: Ekaterina Maza Dx/Rx/DC Orders Clinical Impression: Diabetic foot infection Prescriptions: No Action dulaglutide 0.75 MG/0.5 ML pen injector 0.75 mg SQ WE RF: 0 atorvastatin 80 MG tablet 80 mg PO DAILY RF: 0 albuterol sulfate 1 INHALER inhaler 1 - 2 puff inhalation Q6H PRN PRN (Reason: Sob &/Or Wheezing) RF: 0 multivitamin with minerals 1 EACH tablet 1 tab PO DAILY RF: 0 duloxetine 60 MG capsule,delayed release(DR/EC) 60 mg PO DAILY@1800 RF: 0 pregabalin 100 MG capsule 100 mg PO BID RF: 0 ergocalciferol (vitamin D2) 50,000 UNIT capsule 50,000 unit PO WE RF: 0 insulin degludec 100 UNIT/ML insulin pen 100 unit SQ DAILY RF: 0 levothyroxine 25 MCG tablet 50 mcg PO DAILY RF: 0 pantoprazole 20 MG tablet 20 mg PO BID RF: 0 losartan 50 MG tablet 50 mg PO DAILY RF: 0 hydroxyzine pamoate 100 MG capsule 100 mg PO QHS PRN (Reason: Anxiety) RF: 0 acetaminophen 650 MG tablet extended release 1,300 mg PO DAILY PRN PRN (Reason: Pain 1-10 Or Fever) RF: 0 biotin 5,000 MCG tablet, sublingual 5,000 mcg SL DAILY RF: 0 trazodone 100 MG tablet 100 mg PO QHS RF: 0 amlodipine 10 MG tablet 10 mg PO DAILY RF: 0 amoxicillin-pot clavulanate [Augmentin] 1 EACH tablet 1 tab PO BID 15 Days Qty: 30 RF: 0 amoxicillin-pot clavulanate 250-125 mg tablet 1 tab PO BID RF: 0 sulfamethoxazole-trimethoprim [Bactrim DS] 800-160 mg tablet 1 tab PO Q12H Qty: 20 RF: 0 Primary Care Provider: Shirley Garcia Referrals: Shirley Garcia MD [Primary Care Provider] - Disposition Disposition: Acute Care Hospital [facility]
[2021-04-19 17:33] LABS: Absolute Lymphocyte Count 2.56 X10^3/uL (0.83-4.51); Absolute Neutrophil Count 9.9 X10^3/uL (2.0-7.7); Basophil# 0.08 X10^3/uL; Basophil% 0.6 % (0-1); Eosinophil# 0.28 X10^3/uL; Hematocrit 40.3 % (37-47); Hemoglobin 12.9 g/dL (12.0-15.0); Lymphocyte # 2.56 X10^3/ul (0.83-4.51); Lymphocyte % 18.4 % (19-41); Mean Corpuscular Hgb 27.2 pg (27.0-32.0); Mean Corpuscular Volume 84.8 fL (81-99); Mean Platelet Vol. 9.6 fl (6.2-12.0); Monocyte# 1.09 X10^3/uL; Monocyte% 7.8 % (0-10); NRBC Flagged by Analyzer 0 % (0-5); Neutrophil # 9.87 X10^3/uL (2.7-7.7); Neutrophil % 70.8 % (47-70); Platelet Count 296 K/mm3 (150-450); RBC Distribution Width CV 13.9 % (11.6-14.6); RBC Distribution Width SD 43.2 fl (35.1-43.9); Red Blood Count 4.75 M/mm3 (4.2-5.4); White Blood Count 13.9 K/mm3 (4.4-11.0)
--- NOTE | 2021-04-19 17:35 | RAD_ITS ---
STUDY: X-RAY - LEFT FOOT CLINICAL: Female, 50 years old. Infection. TECHNIQUE: 3 view(s) of the foot. COMPARISON: None. FINDINGS: Normal talus, calcaneus, and tarsal bones. Normal visualized subtalar, talonavicular, calcaneocuboid, tarsal and tarsometatarsal articulations. Normal metatarsi. Normal metatarsophalangeal joint of the great toe. Normal tibial and fibular sesamoid bones. Normal interphalangeal joint of the great toe. Normal phalanges of the great toe. Normal second through fifth metatarsophalangeal joints. Normal interphalangeal joints and phalanges of the lesser toes. The soft tissue structures are unremarkable. RAD/Foot min 3 Views IMPRESSION: There is no acute fracture, dislocation or destructive osseous pathology. Electronically Signed: Cesar Laurent DO at 18:08 EDT Tel [phone], Service support ,
[2021-04-19 17:50] LABS: Anion Gap 7 (5-15); BUN 15 mg/dL (7-18); BUN/Creat Ratio 19.1 RATIO (10-20); Calcium,Total 8.9 mg/dL (8.5-10.1); Chloride 105 mmol/L (98-107); Creatinine, Serum 0.79 mg/dL (0.55-1.02); EST Glomerular Filtration Rate 83 mL/min (>60); Est Glom Filt Rate - Afr Amer 100 mL/min (>60); Estimated Creatinine Clearance 77.51 ml/min; Glucose 132 mg/dL (74-106); Potassium 3.7 mmol/L (3.5-5.1); Sodium Level 137 mmol/L (136-145)
[2021-04-19 17:52] LABS: Erythrocyte Sedimentation Rate 36 mm/hr (0-30)
[2021-04-19] MEDS: 0.9% Normal Saline 1,000 ML 150 ML IV (18:20)
[2021-04-19 18:22] VITALS: BP 163/84; PULSE 82; RESP 16; TEMP 36.8; O2SAT 97
[2021-04-19 18:30] VITALS: BP 163/84; PULSE 82; RESP 16; TEMP 36.8; O2SAT 97
--- NOTE | 2021-04-19 18:35 | HP.PCM.HOS_ITS ---
HPI - General General Date of Admission: 04/19/21 Date of Service: 04/19/21 Chief Complaint: Infected foot wound HPI Narrative KATHRYN ESQUIVEL, is a 50 F who presented to the emergency department [facility] on 04/19/2021 complaining of increased redness and drainage from her chronic left toe diabetic foot wound. She reports that she has been battling a diabetic ulcer on the great toe of her left foot for several months. She is currently being seen by Dr. Guillen at the wound center and intermittently undergoing hyperbaric treatments although it has been difficult given her hyperglycemia issues. She states that over the past couple days she has had increased redness and odor from the wound. She does admit that her blood sugars are markedly uncontrolled. It appears that she has been on outpatient antibiotics. Her vital signs in the emergency department were stable. A CBC showed a leukocytosis with a left shift. Her BMP was overall unremarkable and her blood glucose was 132. A CRP was performed and was 23.7. A foot x-ray was performed and showed no acute fractures, dislocation, or destructive osseous pathology. Wound cultures from January show staph aureus group B strep and Prevotella with an anaerobic cocci and this seems to be consistent from wound cultures done previous to that time. In the past her staph aureus has been MSSA not MRSA. She was given doxycycline Zosyn in the emergency department and will be admitted to [facility] for further antibiotics and evaluation. [facility] Medical History SEUN (acute kidney injury) Chronic ulcer of right foot with fat layer exposed Depression with anxiety Diabetic foot ulcer Fibromyalgia Hyperlipidemia Meniere disease Obesity (BMI 30-39.9) Osteomyelitis Osteomyelitis of second toe of right foot Osteomyelitis of toe of right foot Presence of permanent central venous catheter Skin ulcer of left great toe with fat 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 Vascular catheter fitting or adjustment Vertigo Home Medications albuterol sulfate 1 - 2 puff INHALATION Q6H PRN PRN 08/30/19 [History Last Taken 11/08/20] atorvastatin 80 mg PO DAILY 08/30/19 [History Last Taken 12/19/20] dulaglutide 0.75 mg SQ WE 08/30/19 [History Last Taken 12/13/20] duloxetine 60 mg PO DAILY@1800 03/21/20 [History Last Taken 12/19/20] multivitamin with minerals 1 tab PO DAILY 03/21/20 [History Last Taken 12/20/20] pregabalin 100 mg PO BID 03/21/20 [History Last Taken 12/20/20] ergocalciferol (vitamin D2) 50,000 unit PO WE 10/17/20 [History Last Taken 12/20/20] insulin degludec 100 unit SQ DAILY 10/17/20 [History Last Taken 12/20/20] levothyroxine 50 mcg PO DAILY 11/11/20 [History Last Taken 12/20/20] pantoprazole 20 mg PO BID 11/11/20 [History Last Taken 12/20/20] acetaminophen 1,300 mg PO DAILY PRN PRN 12/08/20 [History Last Taken Unknown] biotin 5,000 mcg SL DAILY 12/08/20 [History Last Taken 12/20/20] hydroxyzine pamoate 100 mg PO QHS PRN 12/08/20 [History Last Taken 12/19/20] losartan 50 mg PO DAILY 12/08/20 [History Last Taken 12/20/20] amlodipine 10 mg PO DAILY 12/20/20 [History Last Taken 12/20/20] trazodone 100 mg PO QHS 12/20/20 [History Last Taken 12/19/20] amoxicillin-pot clavulanate 1 tab PO BID 02/02/21 [History Last Taken Unknown] sulfamethoxazole-trimethoprim [Bactrim DS] 1 tab PO Q12H #20 tab 02/02/21 [Rx Last Taken Unknown] amoxicillin-pot clavulanate [Augmentin] 1 tab PO BID 15 Days #30 tab 02/20/21 [Rx Last Taken Unknown] Allergy/AdvReac Type Severity Reaction Status Date / Time clindamycin Allergy Hives Verified 04/19/21 16:37 erythromycin base Allergy Hives Verified 04/19/21 16:37 [From E-Mycin] vancomycin Allergy Hives Verified 04/19/21 16:37 Gadolinium-MRI Contrast AdvReac NEEDS Verified 04/19/21 16:37 Medium FOLLOW-UP [CONTRAST] Iodinated Contrast Media AdvReac NEEDS Verified 04/19/21 16:37 [CONTRASTS] FOLLOW-UP Social History Smoking Status: Current every day smoker tobacco type: cigarettes ROS Constitutional Constitutional: Denies anorexia, change in weight, chills, fatigue, fever(s), malaise, night sweats, weakness or other Eyes Eyes: Denies blurry vision, change in eye color, change in vision, discharge from eye(s), double vision, erythema, eye pain, loss of vision or other ENT HEENT: Denies abnormal hearing, dysphagia, ear pain, epistaxis, headache(s), hearing loss, nasal congestion, nasal discharge, post nasal drip, sinus pressure, sore throat or other Cardiovascular Cardiovascular: Denies chest pain, claudication, dyspnea on exertion, edema, lightheadedness, orthopnea, palpitations, paroxysmal nocturnal dyspnea, rapid heart rate, syncope or other Respiratory/Chest Respiratory/Chest: Denies cough, dyspnea, excessive phlegm production, hemoptysis, productive cough, shortness of breath at rest, shortness of breath with exertion, wheezing or other Gastrointestinal Gastrointestinal: Denies abdominal pain, coffee ground emesis, constipation, diarrhea, dyspepsia, hematemesis, hematochezia, loose stools, melena, nausea, vomiting or other Musculoskeletal Musculoskeletal: Denies arthralgias, back pain, joint pain, joint stiffness, joint swelling, myalgias, neck pain or other Neurologic Neurologic: Denies abnormal gait, abnormal speech, confusion, disequilibrium, dizziness, focal weakness, headache(s), numbness, paresthesias, seizure-like activity, seizures, syncope, tingling, tremor(s) or other Psychiatric Psychiatric: Denies anxiety, depression, homicidal ideation, suicidal ideation or other Endocrine Endocrinology: Denies change in body appearance, cold intolerance, excessive sweating, heat intolerance, polydipsia, polyuria or other Hematologic/Lymphatic Hematologic/Lymphatic: Denies anemia, easy bleeding, easy bruising, lymphadenopathy or other Allergic/Immunologic Allergic/Immunologic: Denies rhinitis, hives, eczemia, asthma or other Vital Signs Vital Signs Vital Signs: 04/19/21 16:38 04/19/21 16:46 04/19/21 18:22 Temperature 97.8 F 97.8 F 98.2 F Temperature Source Oral Oral Temporal Pulse Rate 96 96 82 Respiratory Rate 18 18 16 Blood Pressure 173/89 H 173/89 H 163/84 H Blood Pressure Mean 117 117 110 Pulse Ox 97 97 97 Oxygen Delivery Method Room Air Room Air Room Air 04/19/21 18:30 Temperature 98.2 F Temperature Source Temporal Pulse Rate 82 Respiratory Rate 16 Blood Pressure 163/84 H Blood Pressure Mean 110 Pulse Ox 97 Oxygen Delivery Method Room Air Weight Weight: 113.398 kg Body Mass Index (BMI) 41.5 Physical Exam Const alert, oriented x3 and no apparent distress Constitutional Narrative: Morbidly obese middle-aged white female sitting up in bed, appears comfortable, nontoxic General Appearance: cooperative Neck supple, no JVD and no carotid bruits Neck Narrative: Trachea midline Resp normal respiratory effort, no retractions, no use of accessory muscles and clear to auscultation bilaterally Resp Narrative: Diminished but clear diffusely Cardio regular rate, regular rhythm, S1 normal heart sound, S2 normal heart sound, no murmurs, no rub, no gallops, no clicks and no JVD GI normal to inspection, nondistended, normoactive bowel sounds, soft to palpation, non-tender and non-distended Extremity no clubbing, cyanosis or edema Peripheral Pulses: Yes pulses 2+ throughout, posterior tibial pulses present and dorsalis pedis pulses present Skin no rashes or lesions noted, No no wounds, skin turgor normal, no jaundice, no petechiae and no mottling Skin Narrative: Left hallux with erythema from the tip to the MTP joint, ulceration at the distal lateral tip, no drainage, necrotic tissue noted Neuro oriented x3, CN's II-XII intact bilaterally, moves all extremities and no focal motor deficits Neuro Narrative: Bilateral lower extremity neuropathy Sensorium / Orientation: awake, alert, oriented to person, oriented to place and oriented to time Speech: speech normal Psych Mood & Affect: anxious Results Lab / Micro Data Result Diagrams: 04/19/21 17:13 04/19/21 17:13 Labs: Laboratory Results - last 24 hr 04/19/21 17:13: WBC 13.9 H, RBC 4.75, Hgb 12.9, Hct 40.3, MCV 84.8, MCH 27.2, MCHC 32.0, RDW Std Deviation 43.2, RDW Coeff of Brea 13.9, Plt Count 296, MPV 9.6, Immature Gran % (Auto) 0.400, Neut % (Auto) 70.8 H, Lymph % (Auto) 18.4 L, Leslie % (Auto) 7.8, Eos % (Auto) 2.0, Baso % (Auto) 0.6, Absolute Neuts (auto) 9.9 H, Absolute Lymphs (auto) 2.56, Nucleated RBC % 0, ESR 36 H 04/19/21 17:13: Sodium 137, Potassium 3.7, Chloride 105, Carbon Dioxide 25.0, Anion Gap 7, BUN 15, Creatinine 0.79, Estim Creat Clear Calc 77.51, Est GFR (MDRD) Af Amer 100, Est GFR (MDRD) Non-Af 83, BUN/Creatinine Ratio 19.1, Glucose 132 H, Calcium 8.9, C-React Prot Ext Range 23.70 H Radiology Impression Foot X-Ray 04/19/21 17:35 IMPRESSION: There is no acute fracture, dislocation or destructive osseous pathology. Electronically Signed: Cesar Laurent DO at 18:08 EDT Tel [phone], Service support , Assessment & Plan Assessment/Plan (1) Diabetic foot infection: (2) Type 2 diabetes mellitus with diabetic polyneuropathy: QUALIFIERS: Diabetes mellitus half-way insulin use: unspecified half-way insulin use status Qualified Code(s): E11.42 - Type 2 diabetes mellitus with diabetic polyneuropathy (3) Hyperlipidemia: PLAN: Left great toe diabetic foot wound -Concern for OM -? Unable to get MRI--> patient states this was because she was told not to have gadolinium anymore because it causes renal failure and she has a history of SEUN--> I discussed with her that we do not use gadolinium with people with kidney injury but it does not cause renal failure--> will leave to podiatry infectious disease to order MRI if they feel that this is appropriate -Start Zyvox and Zosyn for now--> narrow as able -Hold Cymbalta while on Zyvox -Obtain wound cultures-anaerobic and aerobic -Check MRSA PCR -Blood cultures pending -Consult Dr. Guileln from podiatry -Consult Dr. Sharma from infectious disease DM-2 uncontrolled -Continue home insulin 100 units daily -States her blood sugars were much better controlled when she was on an insulin pump but due to insurance reasons she is not able to have this any longer -Add moderate dose sliding scale -Accu-Cheks -Carb controlled cardiac diet Hypertension/hyperlipidemia -Continue atorvastatin 80 mg daily -Continue amlodipine 10 mg daily -Continue losartan 50 mg daily GERD -Continue PPI Diabetic neuropathy -Continue Lyrica Hypothyroidism -Continue levothyroxine Vitamin D deficiency -Restart ergocalciferol at discharge -Takes weekly on Friday Depression -Hold Cymbalta while on Zyvox -Continue trazodone Tobacco abuse -Discussed importance of cessation especially with wound healing issues -Needle pulses are good -Continue patch 14 mcg daily Morbid obesity -Recommend weight loss -BMI 41.6 -Complicates treatment, outcomes, prognosis DVT prophylaxis -Lovenox CODE STATUS -Full code Charges/Coding Visit Charges Inpatient E&M: 95475 Init Hosp L2
--- NOTE | 2021-04-19 19:07 | ED.RN ---
Pt requesting bariatric gown, none available in ER, aware to have Med Surg staff attempt to find one. Did not want to put on regular gown. Unable to obtain wound culture because there is currently no drainage.
[2021-04-19 19:25] VITALS: BMI 40.9
[2021-04-19 19:27] VITALS: BP 137/89; PULSE 87; RESP 16; TEMP 37.1; O2SAT 95
[2021-04-19] MEDS: Linezolid 600 MG 600 MG/300 ML BAG 200 MG IV (21:35)
[2021-04-19] MEDS: Pantoprazole Sodium 20 MG Tablet PO (21:36)
[2021-04-19] MEDS: traZODone 100 MG Tablet 200 MG PO (21:36)
[2021-04-19] MEDS: Pregabalin 50 MG Capsule 100 MG PO (21:37)
[2021-04-19] MEDS: hydrOXYzine PAM 25 MG Capsule 100 MG PO (21:37)
[2021-04-19] MEDS: Insulin Lispro 100 UNIT/ML INSULN.PEN SC (21:45)
[2021-04-19 22:41] LABS: Bedside Glucose 167 mg/dL (70-110)
[2021-04-19 23:21] LABS: M R Staph aureus DNA By PCR Negative (Negative); Probe Check PASS; Staph aureus DNA By PCR POSITIVE (Negative)
[2021-04-20 03:10] VITALS: BP 117/75; PULSE 72; RESP 18; TEMP 36.6; O2SAT 92
[2021-04-20] MEDS: Levothyroxine 50 MCG Tablet PO (05:14)
[2021-04-20 05:39] LABS: Absolute Lymphocyte Count 2.59 X10^3/uL (0.83-4.51); Absolute Neutrophil Count 6.4 X10^3/uL (2.0-7.7); Basophil# 0.05 X10^3/uL; Basophil% 0.5 % (0-1); Eosinophil# 0.31 X10^3/uL; Hematocrit 37.9 % (37-47); Hemoglobin 12.1 g/dL (12.0-15.0); Lymphocyte # 2.59 X10^3/ul (0.83-4.51); Lymphocyte % 24.8 % (19-41); Mean Corp Hgb Conc 31.9 g/dL (32-36); Mean Corpuscular Volume 84.6 fL (81-99); Mean Platelet Vol. 9.4 fl (6.2-12.0); Monocyte# 1.01 X10^3/uL; Monocyte% 9.7 % (0-10); NRBC Flagged by Analyzer 0 % (0-5); Neutrophil # 6.43 X10^3/uL (2.7-7.7); Neutrophil % 61.6 % (47-70); Platelet Count 267 K/mm3 (150-450); RBC Distribution Width SD 43.5 fl (35.1-43.9); Red Blood Count 4.48 M/mm3 (4.2-5.4); White Blood Count 10.4 K/mm3 (4.4-11.0)
[2021-04-20 05:42] LABS: International Normalized Ratio 1.1; Prothrombin Time (Protime)PT. 13.5 SECONDS (11.7-14.9)
[2021-04-20 05:55] LABS: ALB/GLOB Ratio 0.7 RATIO (0.9-2.4); AST(SGOT) 7 U/L (15-37); Alanine Aminotransfer ALT/SGPT 14 U/L (13-56); Albumin, Serum 2.6 g/dL (3.2-5.0); Alkaline Phosphatase 88 U/L (45-117); Anion Gap 5 (5-15); BUN 13 mg/dL (7-18); BUN/Creat Ratio 17.9 RATIO (10-20); Chloride 107 mmol/L (98-107); Creatinine, Serum 0.73 mg/dL (0.55-1.02); EST Glomerular Filtration Rate 91 mL/min (>60); Est Glom Filt Rate - Afr Amer 110 mL/min (>60); Estimated Creatinine Clearance 83.88 ml/min; Globulin 3.5 g/dL (2.2-4.2); Glucose 170 mg/dL (74-106); Magnesium 1.9 mg/dL (1.6-2.6); Phosphorus 3.7 mg/dL (2.5-4.9); Potassium 3.5 mmol/L (3.5-5.1); Protein, Total 6.1 g/dL (6.4-8.2); Sodium Level 137 mmol/L (136-145)
[2021-04-20 06:40] LABS: Bedside Glucose 143 mg/dL (70-110)
--- NOTE | 2021-04-20 07:45 | MRI_ITS ---
STUDY: MRI LEFT FOREFOOT WITHOUT CONTRAST REASON FOR EXAM: Female, 50 years old. chronic left hallux ulcer, check for osteomyelitis -- PATIENT COULD NOT HOLD STILL TECHNIQUE: Standardized fat and water weighted pulse sequences were obtained in all 3 orthogonal planes. COMPARISON: X-ray dated 04/19/2021. MRI dated 12/20/2020. FINDINGS: Extensive patient motion. Soft tissue swelling/ulceration at the first digit. First digit intact. No abscess identified. Second metatarsal shaft bone marrow edema without evidence of cortical destruction (short axis image 30). Mild/moderate tarsometatarsal joint arthrosis predominating medially. Moderate first metatarsophalangeal joint arthrosis. Normal second through fifth metatarsophalangeal joints. Mild first interphalangeal joint arthrosis. 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 Mild lateral muscle atrophy. Flexor tendons intact with mild tendinosis. Extensor tendons intact with mild peritendinitis. Normal Lisfranc ligament. MRI/Lower Ext/No Jt/w/o IMPRESSION: Motion limited exam First digit soft tissue swelling/ulceration without osteomyelitis Second metatarsal shaft bone marrow edema/stress reaction Mild flexor tendinosis and extensor peritendinitis Osseous degenerative findings, as above Electronically Signed: Jd España DO at 10:30 EDT Tel , Service support ,
--- NOTE | 2021-04-20 07:45 | PCM.CONS.GEN ---
Assessment & Plan Assessment/Plan (1) Non-pressure chronic ulcer of other part of left foot with fat layer exposed: (2) Cellulitis of toe of left foot: (3) Hyperglycemia: (4) Left hallux osteomyelitis: PLAN: Patient seen and examined at bedside. Patient is noted to have no systemic signs of illness at this time. Patient is well-known to me and has had this chronic left hallux ulceration for several months duration. She has tried oral and IV antibiotics, wound care and HBO therapy with minimal success. She has not been able to do HBO therapy regularly due to hyperglycemia. She is working with her PCP to help control distance. Patient could benefit from nutrition consult. Sharp excisional nonselective debridement was carried out into the level of subcutaneous tissue with a #15 blade with removal of all devitalized, slough, biofilm, and fibrous tissue. This was done without incidence. This was tolerated due to patient's neuropathy. Cultures were obtained the wound at this time. There is serosanguineous drainage noted. MRI ordered to assess for worsening infection including possible osteomyelitis. Discussed briefly with the patient that depending on MRI results and severity of wound that surgical intervention may prove necessary. Continue IV antibiotics. Recommend ID consult continue daily dressing changes with Continue daily dressing changes with Aquacel silver dry sterile dressing to left hallux Patient is to continue using offloading surgical shoes and continue wound care. We will follow culture results as well as MRI results Thank you for the consult. Podiatry will continue to follow. Please contact if any questions or concerns Haylee Guillen DPM [facility] [phone] HPI Consult Data Date of Consult: 04/20/21 HPI Narrative Reason for Consultation: Left hallux ulceration and infection HPI Narrative: KATHRYN ESQUIVEL, is a 50 F who presents for worsening left hallux infection. Patient is well-known to me has been seen at the wound care center for chronic left foot ulceration. Patient has had history of osteomyelitis in this toe which was treated with IV antibiotics but ulceration remain. Patient has been trying to get the wound to heal with hyperbaric oxygen therapy but due to elevated blood sugars she has not been able to do this regularly. Patient relates that oral antibiotics do not help with her redness and pain often. Patient relates that her wound has been getting worse over the last week. Patient was last seen at the request and this week due to me not being in the office. Patient did not contact the clinic in order to report any worsening symptoms. Patient relates that she ended up going to the emergency room yesterday due to worsening infection. She denies any nausea fever vomiting chills chest pain shortness of breath at this time. Patient has been noted recently to be wearing her sandals and not her offloading shoes to help with her wound healing. She relates that since it has gotten worse she has gone back to using her offloading shoes. Patient is also working closely with her primary care physician in order to better improve her blood sugar levels. [facility] Medical History (Updated 04/20/21 @ 08:[address] Haylee Guillen, DPM) SEUN (acute kidney injury) Anxiety Chronic pain Chronic ulcer of right foot with fat layer exposed Depression Depression with anxiety Diabetes Diabetic foot ulcer Fibromyalgia Hyperlipidemia Hypothyroidism Meniere disease Obesity (BMI 30-39.9) Osteomyelitis Osteomyelitis of second toe of right foot Osteomyelitis of toe of right foot Presence of permanent central venous catheter Skin ulcer of left great toe with fat layer exposed Sleep apnea Smoker Type 2 diabetes mellitus with diabetic polyneuropathy Vascular catheter fitting or adjustment Vertigo Home Medications albuterol sulfate 1 - 2 puff INHALATION Q6H PRN PRN 08/30/19 [History Last Taken 11/08/20] atorvastatin 80 mg PO DAILY 08/30/19 [History Last Taken 04/18/21] dulaglutide 0.75 mg SQ WE 08/30/19 [History Last Taken 04/18/21] duloxetine 60 mg PO DAILY@1800 03/21/20 [History Last Taken 04/18/21] multivitamin with minerals 1 tab PO DAILY 03/21/20 [History Last Taken 04/19/21] pregabalin 100 mg PO BID 03/21/20 [History Last Taken 04/19/21] ergocalciferol (vitamin D2) 50,000 unit PO WE 10/17/20 [History Last Taken 04/18/21] insulin degludec 100 unit SQ DAILY 10/17/20 [History Last Taken 04/19/21] levothyroxine 50 mcg PO DAILY 11/11/20 [History Last Taken 04/19/21] pantoprazole 20 mg PO BID 11/11/20 [History Last Taken 04/19/21] hydroxyzine pamoate 100 mg PO QHS 12/08/20 [History Last Taken 04/18/21] losartan 50 mg PO DAILY 12/08/20 [History Last Taken 04/19/21] amlodipine 10 mg PO DAILY 12/20/20 [History Last Taken 04/19/21] trazodone 200 mg PO QHS 12/20/20 [History Last Taken 04/18/21] Allergy/AdvReac Type Severity Reaction Status Date / Time clindamycin Allergy Hives Verified 04/19/21 16:37 erythromycin base Allergy Hives Verified 04/19/21 16:37 [From E-Mycin] vancomycin Allergy Hives Verified 04/19/21 16:37 Gadolinium-MRI Contrast AdvReac NEEDS Verified 04/19/21 16:37 Medium FOLLOW-UP [CONTRAST] Iodinated Contrast Media AdvReac NEEDS Verified 04/19/21 16:37 [CONTRASTS] FOLLOW-UP Surgical History (Updated 04/19/21 @ 19:35 by Ekaterina Marcelo) History of appendectomy Social History Smoking Status: Current every day smoker tobacco type: cigarettes ROS Constitutional Constitutional: Denies chills or fever(s) Cardiovascular Cardiovascular: Denies chest pain Respiratory/Chest Respiratory/Chest: Denies cough Gastrointestinal Gastrointestinal: Denies nausea or vomiting Musculoskeletal Musculoskeletal: Denies muscle cramps or muscle weakness Integumentary Integumentary: Reports wounds Neurologic Neurologic: Reports numbness and tingling Physical Exam Narrative Const alert and no apparent distress General Appearance: cooperative and comfortable Lymph Lymphatic: no lymphedema noted Resp normal respiratory effort Effort and Inspection: able to speak in complete sentences Extremity normal capillary refill, no calf tenderness and no pedal edema General Extremity: no tenderness to palpation of joints or extremities; Negative for clubbing or cyanosis Peripheral Pulses: Yes posterior tibial pulses present right 2+ and dorsalis pedis pulses present right 2+ Skin General Skin Exam: Negative for ecchymosis, eschar, pallor or dermatitis Rashes: no rashes Wounds: wounds noted Wound Narrative: ulcers noted to left medial plantar hallux. No malodor, probing to bone, fluctuation, crepitus. Skin is atrophic and hairless. Surrounding callus tissue noted. Granular base. Patient has erythema noted to entire hallux. Serosanguineous drainage noted. No pain. No purulent drainage, wound appears larger than at last appointment measures 2x1.5x0.2cm to level of fat 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 Neuro Gait (Neuro): normal gait Sensory Exam: extremities light-touch: decreased Motor Exam: strength 5/5 throughout Psych Appearance: appropriate Lab / Micro Data Result Diagrams: 04/20/21 05:13 04/20/21 05:13 Labs: Laboratory Results - last 24 hr 04/19/21 17:13: WBC 13.9 H, RBC 4.75, Hgb 12.9, Hct 40.3, MCV 84.8, MCH 27.2, MCHC 32.0, RDW Std Deviation 43.2, RDW Coeff of Bre[place] 13.9, Plt Count 296, MPV 9.6, Immature Gran % (Auto) 0.400, Neut % (Auto) 70.8 H, Lymph % (Auto) 18.4 L, [place] % (Auto) 7.8, Eos % (Auto) 2.0, Baso % (Auto) 0.6, Absolute Neuts (auto) 9.9 H, Absolute Lymphs (auto) 2.56, Nucleated RBC % 0, ESR 36 H 04/19/21 17:13: Sodium 137, Potassium 3.7, Chloride 105, Carbon Dioxide 25.0, Anion Gap 7, BUN 15, Creatinine 0.79, Estim Creat Clear Calc 77.51, Est GFR (MDRD) Af Amer 100, Est GFR (MDRD) Non-Af 83, BUN/Creatinine Ratio 19.1, Glucose 132 H, Calcium 8.9, C-React Prot Ext Range 23.70 H 04/19/21 21:43: POC Glucose 167 H 04/19/21 21:55: S.aureus Protein A PCR POSITIVE H, MRSA (PCR) Negative 04/20/21 05:13: WBC 10.4, RBC 4.48, Hgb 12.1, Hct 37.9, MCV 84.6, MCH 27.0, MCHC 31.9 L, RDW Std Deviation 43.5, RDW Coeff of Bre[place] 14.0, Plt Count 267, MPV 9.4, Immature Gran % (Auto) 0.400, Neut % (Auto) 61.6, Lymph % (Auto) 24.8, [place] % (Auto) 9.7, Eos % (Auto) 3.0, Baso % (Auto) 0.5, Absolute Neuts (auto) 6.4, Absolute Lymphs (auto) 2.59, Nucleated RBC % 0 04/20/21 05:13: Sodium 137, Potassium 3.5, Chloride 107, Carbon Dioxide 25.0, Anion Gap 5, BUN 13, Creatinine 0.73, Estim Creat Clear Calc 83.88, Est GFR (MDRD) Af Amer 110, Est GFR (MDRD) Non-Af 91, BUN/Creatinine Ratio 17.9, Glucose 170 H, Calcium 8.0 L, Phosphorus 3.7, Magnesium 1.9, Total Bilirubin 0.40, AST 7 L, ALT 14, Alkaline Phosphatase 88, Total Protein 6.1 L, Albumin 2.6 L, Globulin 3.5, Albumin/Globulin Ratio 0.7 L 04/20/21 05:13: PT 13.5, INR 1.1 04/20/21 06:28: POC Glucose 143 H Radiology Impression Foot X-Ray 04/19/21 17:35 IMPRESSION: There is no acute fracture, dislocation or destructive osseous pathology. Electronically Signed: Cesar Laurent DO at 18:08 EDT Tel [phone], Service support ,
--- NOTE | 2021-04-20 08:20 | NURSING ---
wound photo: left great toe
[2021-04-20 10:16] LABS: M R Staph aureus DNA By PCR Negative (Negative); Probe Check PASS; Specimen Processing Control PASS; Staph aureus DNA By PCR POSITIVE (Negative)
[2021-04-20 11:10] VITALS: BP 104/40; PULSE 74; RESP 15; TEMP 36.7; O2SAT 97
[2021-04-20] MEDS: Pregabalin 50 MG Capsule 100 MG PO (11:19)
[2021-04-20] MEDS: Pantoprazole Sodium 20 MG Tablet PO (11:20)
[2021-04-20] MEDS: Multivitamins,Ther W-Minerals Tablet 1 TABLET PO (11:20)
[2021-04-20] MEDS: Enoxaparin 40 MG/0.4 ML Syringe SC (11:21)
[2021-04-20] MEDS: Insulin Lispro 100 UNIT/ML INSULN.PEN SC (11:27)
[2021-04-20] MEDS: Linezolid 600 MG 600 MG/300 ML BAG 200 MG IV (11:34)
[2021-04-20 11:35] LABS: Bedside Glucose 221 mg/dL (70-110)
[2021-04-20] MEDS: 0.9% Saline Lock 10 ML Syringe IV (11:35)
[2021-04-20] MEDS: Acetaminophen 325 MG Tablet 650 MG PO (11:40)
--- NOTE | 2021-04-20 12:00 | CASEMGMT ---
RN GUERO Face to Face with patient for initial transition planning/care coordination assessment. RN CM introduced self and role at [facility]. Patient lying in bed, alert and oriented. Patient willing to participate in assessment and is able to answer all questions appropriately. Care providers, pharmacy, and demographics verified. Patient wishes to discharge home, denies need for home health at this time. Will monitor for need for HHC for IV ATBs. Patient states she has no further needs or concerns at this time. CM to follow for discharge planning needs that may arise. PCP: Radha Specialists: Mindy Rizvi Pharmacy: [facility] Insurance: Mikael SANDHU [employer] Prescription Benefit: yes Living Will/HPOA: none LNOK: Mother, sister, 12yo son Living Arrangements: Patient lives with 12 yo son, who is currently with grandparents, in a basement apt with 8 steps and railing to enter. Patient states she is independent at home and has been completing own wound care. Transportation: Self/friend DME/HHC: patient states she has a walker at home. Patient has previously been to [facility]. No previous HHC. Patient follows at the wound center. Disposition Plan: Patient to discharge home with family support and follow-up plans in place. Will monitor for possible IV ATBs at discharge. Chica ARROYO, RN, CM
--- NOTE | 2021-04-20 12:43 | CASEMGMT ---
Palliative screening tool completed for [facility]. Patient does not meet criteria for palliative consult at this time.
--- NOTE | 2021-04-20 13:05 | CON.PCM.ID_ITS ---
Assessment & Plan Assessment/Plan (1) Diabetic foot infection: PLAN: MRI did not show osteo. Wound cx pending. On empiric linezolid/zosyn. Will change linezolid to po. May be candidate for home with po abx soon. Will follow, thank you. Encouraged her to get covid vaccine but she is not interested. HPI Consult Data Date of Consult: 04/20/21 HPI Narrative HPI Narrative: KATHRYN ESQUIVEL, is a 50 F with recurrent foot infections, DM, presented with about 5 days of new L 1st toe wound with redness and drainage. Minimal pain due to neuropathy. No recent abx. No fever. Not interested in covid vaccine. Came to ED, admitted on linezolid/zosyn, feeling about the same, MRI done. Full ROS performed and neg except as noted above. [facility] Medical History SEUN (acute kidney injury) Anxiety Chronic pain Chronic ulcer of right foot with fat layer exposed Depression Depression with anxiety Diabetes Diabetic foot ulcer Fibromyalgia Hyperlipidemia Hypothyroidism Meniere disease Obesity (BMI 30-39.9) Osteomyelitis Osteomyelitis of second toe of right foot Osteomyelitis of toe of right foot Presence of permanent central venous catheter Skin ulcer of left great toe with fat layer exposed Sleep apnea Smoker Type 2 diabetes mellitus with diabetic polyneuropathy Vascular catheter fitting or adjustment Vertigo Home Medications albuterol sulfate 1 - 2 puff INHALATION Q6H PRN PRN 08/30/19 [History Last Taken 11/08/20] atorvastatin 80 mg PO DAILY 08/30/19 [History Last Taken 04/18/21] dulaglutide 0.75 mg SQ WE 08/30/19 [History Last Taken 04/18/21] duloxetine 60 mg PO DAILY@1800 03/21/20 [History Last Taken 04/18/21] multivitamin with minerals 1 tab PO DAILY 03/21/20 [History Last Taken 04/19/21] pregabalin 100 mg PO BID 03/21/20 [History Last Taken 04/19/21] ergocalciferol (vitamin D2) 50,000 unit PO WE 10/17/20 [History Last Taken 04/18/21] insulin degludec 100 unit SQ DAILY 10/17/20 [History Last Taken 04/19/21] levothyroxine 50 mcg PO DAILY 11/11/20 [History Last Taken 04/19/21] pantoprazole 20 mg PO BID 11/11/20 [History Last Taken 04/19/21] hydroxyzine pamoate 100 mg PO QHS 12/08/20 [History Last Taken 04/18/21] losartan 50 mg PO DAILY 12/08/20 [History Last Taken 04/19/21] amlodipine 10 mg PO DAILY 12/20/20 [History Last Taken 04/19/21] trazodone 200 mg PO QHS 12/20/20 [History Last Taken 04/18/21] Allergy/AdvReac Type Severity Reaction Status Date / Time clindamycin Allergy Hives Verified 04/19/21 16:37 erythromycin base Allergy Hives Verified 04/19/21 16:37 [From E-Mycin] vancomycin Allergy Hives Verified 04/19/21 16:37 Gadolinium-MRI Contrast AdvReac NEEDS Verified 04/19/21 16:37 Medium FOLLOW-UP [CONTRAST] Iodinated Contrast Media AdvReac NEEDS Verified 04/19/21 16:37 [CONTRASTS] FOLLOW-UP Surgical History (Updated 04/19/21 @ 19:35 by Ekaterina Marcelo) History of appendectomy Social History Smoking Status: Current every day smoker tobacco type: cigarettes Physical Exam Const alert, oriented x3 and no apparent distress General Appearance: cooperative Exam Limitations: no limitations HEENT normocephalic and head/scalp atraumatic Eyes PERRL and EOMs intact bilaterally Neck supple and No nodes Resp normal air movement and clear to auscultation bilaterally Cardio regular rate and regular rhythm GI normal to inspection, nondistended, normoactive bowel sounds Extremity no clubbing, cyanosis or edema Skin Skin Narrative: reviewed photo of toe Neuro CN's II-XII intact bilaterally Medical Records Data Medical Nutrition Assessment Dietitian: Nutrition Therapy Diagnosis Start: 04/20/21 12:09 Freq: Status: Active Protocol: Document 04/20/21 12:26 REGIS (Rec: 04/20/21 12:27 REGIS [id number]) Nutrition Malnutrition Evidence of Malnutrition Exists No Intake Problem Increased Nutrient Needs (specify) Etiology (protein) related to wound healing Signs/Symptoms as evidenced by L great toe diabetic ulcer and orders for oral nutrition supplementation Status Active Problem Clinical Problem Altered Nutrient-Related Laboratory Values Etiology related to endocrine dysfunction Signs/Symptoms as evidenced by gluc 170 Status Active Problem Recommendation Dietitian Recommendations/Changes Will change diet to 1800 calorie Cardiac diet Will d/c kervin carvalho w/ medlucrecia d/t pt refusal Will order Rip bid to help w / wound healing Lab / Micro Data Result Diagrams: 04/20/21 05:13 04/20/21 05:13 Labs: Laboratory Results - last 24 hr 04/19/21 17:13: WBC 13.9 H, RBC 4.75, Hgb 12.9, Hct 40.3, MCV 84.8, MCH 27.2, MCHC 32.0, RDW Std Deviation 43.2, RDW Coeff of Brea 13.9, Plt Count 296, MPV 9.6, Immature Gran % (Auto) 0.400, Neut % (Auto) 70.8 H, Lymph % (Auto) 18.4 L, [place] % (Auto) 7.8, Eos % (Auto) 2.0, Baso % (Auto) 0.6, Absolute Neuts (auto) 9.9 H, Absolute Lymphs (auto) 2.56, Nucleated RBC % 0, ESR 36 H 04/19/21 17:13: Sodium 137, Potassium 3.7, Chloride 105, Carbon Dioxide 25.0, Anion Gap 7, BUN 15, Creatinine 0.79, Estim Creat Clear Calc 77.51, Est GFR (MDRD) Af Amer 100, Est GFR (MDRD) Non-Af 83, BUN/Creatinine Ratio 19.1, Glucose 132 H, Calcium 8.9, C-React Prot Ext Range 23.70 H 04/19/21 21:43: POC Glucose 167 H 04/19/21 21:55: S.aureus Protein A PCR POSITIVE H, MRSA (PCR) Negative 04/20/21 05:13: WBC 10.4, RBC 4.48, Hgb 12.1, Hct 37.9, MCV 84.6, MCH 27.0, MCHC 31.9 L, RDW Std Deviation 43.5, RDW Coeff of Brea 14.0, Plt Count 267, MPV 9.4, Immature Gran % (Auto) 0.400, Neut % (Auto) 61.6, Lymph % (Auto) 24.8, [place] % (Auto) 9.7, Eos % (Auto) 3.0, Baso % (Auto) 0.5, Absolute Neuts (auto) 6.4, Absolute Lymphs (auto) 2.59, Nucleated RBC % 0 04/20/21 05:13: Sodium 137, Potassium 3.5, Chloride 107, Carbon Dioxide 25.0, Anion Gap 5, BUN 13, Creatinine 0.73, Estim Creat Clear Calc 83.88, Est GFR (MDRD) Af Amer 110, Est GFR (MDRD) Non-Af 91, BUN/Creatinine Ratio 17.9, Glucose 170 H, Calcium 8.0 L, Phosphorus 3.7, Magnesium 1.9, Total Bilirubin 0.40, AST 7 L, ALT 14, Alkaline Phosphatase 88, Total Protein 6.1 L, Albumin 2.6 L, Globulin 3.5, Albumin/Globulin Ratio 0.7 L 04/20/21 05:13: PT 13.5, INR 1.1 04/20/21 06:28: POC Glucose 143 H 04/20/21 07:45: S.aureus Protein A PCR POSITIVE H, MRSA (PCR) Negative 04/20/21 11:26: POC Glucose 221 H Radiology Impression Foot X-Ray 04/19/21 17:35 IMPRESSION: There is no acute fracture, dislocation or destructive osseous pathology. Electronically Signed: Cesar Laurent DO at 18:08 EDT Tel [phone], Service support , Lower Extremity MRI 04/20/21 07:45 IMPRESSION: Motion limited exam First digit soft tissue swelling/ulceration without osteomyelitis Second metatarsal shaft bone marrow edema/stress reaction Mild flexor tendinosis and extensor peritendinitis Osseous degenerative findings, as above Electronically Signed: Jd España DO at 10:30 EDT Tel , Service support ,
--- NOTE | 2021-04-20 15:04 | PCM.DC.SUM ---
Providers Date of Admission: 04/19/21 Date of Discharge: 04/20/21 Primary Care Physician: Dr. Shirley Garcia MD Consultations 04/19/21 19:38 Consult: Infectious Disease Routine Consulting Provider: Roger Lorenzo Reason for Consult: Diabetic foot infection EMERGENT Consult: No Notified: Yes Date Notified: 04/20/21 Time Notified: 03:48 Method of Notification: Answering Service Method of Consult:: In-Person Consult: Onc/Wound/group home worker Routine Comment: Reason for Consult:: diabetic foot wound Consult: Podiatry Routine Consulting Provider: Haylee Guillen Reason for Consult: L foot diabetic foot wound EMERGENT Consult: No Notified: Yes Date Notified: 04/20/21 Time Notified: 06:18 Method of Notification: Text Method of Consult:: In-Person Reason For Visit: INFECTED DIABETIC ULCER Diagnosis Discharge Diagnosis (1) Diabetic foot infection: Status: Acute Code(s): E11.628 - Type 2 diabetes mellitus with other skin complications; L08.9 - Local infection of the skin and subcutaneous tissue, unspecified (2) Hyperglycemia: Status: Acute Code(s): R73.9 - Hyperglycemia, unspecified Medications at Discharge Home Medications albuterol sulfate 1 - 2 puff INHALATION Q6H PRN PRN 08/30/19 atorvastatin 80 mg PO DAILY 08/30/19 dulaglutide 0.75 mg SQ WE 08/30/19 duloxetine 60 mg PO DAILY@1800 03/21/20 multivitamin with minerals 1 tab PO DAILY 03/21/20 pregabalin 100 mg PO BID 03/21/20 ergocalciferol (vitamin D2) 50,000 unit PO WE 10/17/20 levothyroxine 50 mcg PO DAILY 11/11/20 pantoprazole 20 mg PO BID 11/11/20 hydroxyzine pamoate 100 mg PO QHS 12/08/20 losartan 50 mg PO DAILY 12/08/20 amlodipine 10 mg PO DAILY 12/20/20 trazodone 200 mg PO QHS 12/20/20 amoxicillin-pot clavulanate [Augmentin] 1 tab PO BID 10 Days #20 tab 04/20/21 doxycycline hyclate 100 mg PO BID #20 cap 04/20/21 insulin degludec 100 unit SQ DAILY #0 ml 04/20/21 magnesium hydroxide 400 mg PO DAILY #5 tab 04/20/21 potassium chloride 20 meq PO DAILY #5 tab 04/20/21 Hospital Course Operations None Procedures None Summary of Care Provided Minutes Spent on Discharge: 55 Hospital Course: 50-year-old female with past medical history of type II DM, complicated by polyneuropathy, chronic left to diabetic foot wound who follows with Dr. Guillen in the outpatient. Patient is currently in hyperbaric treatment for her diabetic ulcer. She presents with increased redness and odor from the wound. Her blood sugars are uncontrolled. X-ray of the foot on admission showed no acute fractures or dislocation or destructive osseous pathology. Previous wound cultures grew staph aureus, group B strep. She was admitted to the PCU, managed on doxycycline and Zosyn. She underwent MRI of the foot that was negative for acute osteomyelitis. She was seen by infectious disease and recommended to be discharged on doxycycline and Augmentin. Patient was kept on insulin regimen and advised to follow-up closely with podiatry and with her digital campaign manager. Physical Exam Const alert, oriented x3 and no apparent distress Constitutional Narrative: Morbidly obese middle-aged white female sitting up in bed, appears comfortable, nontoxic General Appearance: cooperative Neck supple, no JVD and no carotid bruits Neck Narrative: Trachea midline Resp normal respiratory effort, no retractions, no use of accessory muscles and clear to auscultation bilaterally Resp Narrative: Diminished but clear diffusely Cardio regular rate, regular rhythm, S1 normal heart sound, S2 normal heart sound, no murmurs, no rub, no gallops, no clicks and no JVD GI normal to inspection, nondistended, normoactive bowel sounds, soft to palpation, non-tender and non-distended Extremity no clubbing, cyanosis or edema Skin no rashes or lesions noted, No no wounds, skin turgor normal, no jaundice, no petechiae and no mottling Skin Narrative: Left hallux with erythema from the tip to the MTP joint, ulceration at the distal lateral tip, no drainage, necrotic tissue noted Neuro oriented x3, CN's II-XII intact bilaterally, moves all extremities and no focal motor deficits Neuro Narrative: Bilateral lower extremity neuropathy Sensorium / Orientation: awake, alert, oriented to person, oriented to place and oriented to time Speech: speech normal Psych Mood & Affect: anxious Medical Records Data Medical Nutrition Assessment Dietitian: Nutrition Therapy Diagnosis Start: 04/20/21 12:09 Freq: Status: Active Protocol: Document 04/20/21 12:26 [facility] (Rec: 04/20/21 12:27 [facility] [id number]) Nutrition Malnutrition Evidence of Malnutrition Exists No Intake Problem Increased Nutrient Needs (specify) Etiology (protein) related to wound healing Signs/Symptoms as evidenced by L great toe diabetic ulcer and orders for oral nutrition supplementation Status Active Problem Clinical Problem Altered Nutrient-Related Laboratory Values Etiology related to endocrine dysfunction Signs/Symptoms as evidenced by gluc 170 Status Active Problem Recommendation Dietitian Recommendations/Changes Will change diet to 1800 calorie Cardiac diet Will d/c glucerna lennyke w/ medpass d/t pt refusal Will order Rip bid to help w / wound healing Weight / BMI Weight Weight: 111.629 kg Body Mass Index (BMI) 40.9 ABG / Lab / Microbiology Data Result Diagrams: 04/20/21 05:13 04/20/21 05:13 Laboratory: Laboratory Results - last 24 hr 04/19/21 17:13: WBC 13.9 H, RBC 4.75, Hgb 12.9, Hct 40.3, MCV 84.8, MCH 27.2, MCHC 32.0, RDW Std Deviation 43.2, RDW Coeff of Brea 13.9, Plt Count 296, MPV 9.6, Immature Gran % (Auto) 0.400, Neut % (Auto) 70.8 H, Lymph % (Auto) 18.4 L, Cannon % (Auto) 7.8, Eos % (Auto) 2.0, Baso % (Auto) 0.6, Absolute Neuts (auto) 9.9 H, Absolute Lymphs (auto) 2.56, Nucleated RBC % 0, ESR 36 H 04/19/21 17:13: Sodium 137, Potassium 3.7, Chloride 105, Carbon Dioxide 25.0, Anion Gap 7, BUN 15, Creatinine 0.79, Estim Creat Clear Calc 77.51, Est GFR (MDRD) Af Amer 100, Est GFR (MDRD) Non-Af 83, BUN/Creatinine Ratio 19.1, Glucose 132 H, Calcium 8.9, C-React Prot Ext Range 23.70 H 04/19/21 21:43: POC Glucose 167 H 04/19/21 21:55: S.aureus Protein A PCR POSITIVE H, MRSA (PCR) Negative 04/20/21 05:13: WBC 10.4, RBC 4.48, Hgb 12.1, Hct 37.9, MCV 84.6, MCH 27.0, MCHC 31.9 L, RDW Std Deviation 43.5, RDW Coeff of Brea 14.0, Plt Count 267, MPV 9.4, Immature Gran % (Auto) 0.400, Neut % (Auto) 61.6, Lymph % (Auto) 24.8, Cannon % (Auto) 9.7, Eos % (Auto) 3.0, Baso % (Auto) 0.5, Absolute Neuts (auto) 6.4, Absolute Lymphs (auto) 2.59, Nucleated RBC % 0 04/20/21 05:13: Sodium 137, Potassium 3.5, Chloride 107, Carbon Dioxide 25.0, Anion Gap 5, BUN 13, Creatinine 0.73, Estim Creat Clear Calc 83.88, Est GFR (MDRD) Af Amer 110, Est GFR (MDRD) Non-Af 91, BUN/Creatinine Ratio 17.9, Glucose 170 H, Calcium 8.0 L, Phosphorus 3.7, Magnesium 1.9, Total Bilirubin 0.40, AST 7 L, ALT 14, Alkaline Phosphatase 88, Total Protein 6.1 L, Albumin 2.6 L, Globulin 3.5, Albumin/Globulin Ratio 0.7 L 04/20/21 05:13: PT 13.5, INR 1.1 04/20/21 06:28: POC Glucose 143 H 04/20/21 07:45: S.aureus Protein A PCR POSITIVE H, MRSA (PCR) Negative 04/20/21 11:26: POC Glucose 221 H Microbiology: Microbiology 04/20/21 07:45 Wound - Left Foot Gram Stain - Final 04/19/21 21:55 Wound - Toe Gram Stain - Final 04/19/21 21:55 Wound - Toe Wound Culture - Preliminary Gram positive organism Radiography Diagnostic Testing: Radiology Impression Foot X-Ray 04/19/21 17:35 IMPRESSION: There is no acute fracture, dislocation or destructive osseous pathology. Electronically Signed: Cesar Laurent DO at 18:08 EDT Tel [phone], Service support , Lower Extremity MRI 04/20/21 07:45 IMPRESSION: Motion limited exam First digit soft tissue swelling/ulceration without osteomyelitis Second metatarsal shaft bone marrow edema/stress reaction Mild flexor tendinosis and extensor peritendinitis Osseous degenerative findings, as above Electronically Signed: Jd HebertDO mara at 10:30 EDT Tel , Service support , D/C Instructions Discharge Diet: Low fat / Low cholesterol, 2000 Calorie Control Diet and 2000 mg Sodium Diet Meaningful Use Info Meaningful Use Diagnoses (Choose all that apply): None applicable Discharge Plan Admission Admit Date/Time: 04/19/21 18:34 Primary Reason for Your Visit: Infected left toe/diabetic foot Attending Provider: Gail Dyer Primary Care Provider: Shirley Garcia Consulting Providers: Roger Lorenzo ; Haylee Guillen Instructions Additional Instructions / Restrictions: Take note of changes to your medications. Follow-up with podiatry recommendations. Follow-up with Dr. Guillen in the wound clinic as scheduled. Discharge Orders/Prescriptions Prescriptions: New potassium chloride 20 mEq tablet extended release 20 meq PO DAILY Qty: 5 RF: 0 magnesium hydroxide 400 mg (170 mg magnesium) tablet,chewable 400 mg PO DAILY Qty: 5 RF: 0 doxycycline hyclate 100 mg capsule 100 mg PO BID Qty: 20 RF: 0 amoxicillin-pot clavulanate [Augmentin] 875-125 mg tablet 1 tab PO BID 10 Days Qty: 20 RF: 0 Continued dulaglutide 0.75 MG/0.5 ML pen injector 0.75 mg SQ WE RF: 0 atorvastatin 80 MG tablet 80 mg PO DAILY RF: 0 albuterol sulfate 1 INHALER inhaler 1 - 2 puff inhalation Q6H PRN PRN (Reason: Sob &/Or Wheezing) RF: 0 multivitamin with minerals 1 EACH tablet 1 tab PO DAILY RF: 0 duloxetine 60 MG capsule,delayed release(DR/EC) 60 mg PO DAILY@1800 RF: 0 pregabalin 100 MG capsule 100 mg PO BID RF: 0 ergocalciferol (vitamin D2) 50,000 UNIT capsule 50,000 unit PO WE RF: 0 levothyroxine 25 MCG tablet 50 mcg PO DAILY RF: 0 pantoprazole 20 MG tablet 20 mg PO BID RF: 0 losartan 50 MG tablet 50 mg PO DAILY RF: 0 hydroxyzine pamoate 100 MG capsule 100 mg PO QHS RF: 0 trazodone 100 MG tablet 200 mg PO QHS RF: 0 amlodipine 10 MG tablet 10 mg PO DAILY RF: 0 insulin degludec 100 UNIT/ML insulin pen 100 unit SQ DAILY Qty: 0 RF: 0 Referrals / Follow Up: Shirley Garcia MD [Primary Care Provider] - 04/30/21 4:00 pm Haylee Guillen DPM [STAFF PHYSICIAN] - See Referral Note (as scheduled) Disposition Disposition (needs filled in before D/C Order can be placed): Home, Self Care Charges/Coding Visit Charges Inpatient E&M: 49884 Disch Hosp
[2021-04-20 15:31] VITALS: BP 146/68; PULSE 71; RESP 14; TEMP 36.6; O2SAT 96
[2021-04-20] MEDS: Losartan Potassium 50 MG Tablet PO (15:34)
[2021-04-20] MEDS: amLODIPine 10 MG Tablet PO (15:34)
--- NOTE | 2021-04-23 15:24 | CASEMGMT ---
RN CM Discharge F/U Phone Call LACE: 13 Strata: 3 Discharge date: 04/20/21 Call date: 04/23/21 Call time: 1525 Attempted to reach pt without success, message left for pt to call this RN CM back if/when able. S[place]en RN CM Admission dx: Infected diabetic ulcer
== END 2021-04-20 15:58 | disposition home or self-care (01) | DRG 638 ==
LOC: ED 18:32 → PCU 18:56
PROVIDERS: Podiatrist Foot & Ankle Surgery; Admitting Provider Internal Medicine; Emergency Provider Emergency Medicine; PCP Internal Medicine; Visit Provider Internal Medicine
DX: E11.621 Type 2 diabetes mellitus with foot ulcer (principal); L97.512 Non-pressure chronic ulcer of other part of right foot with fat layer exposed; E11.42 Type 2 diabetes mellitus with diabetic polyneuropathy; E11.65 Type 2 diabetes mellitus with hyperglycemia; Z68.41 Body mass index [BMI] 40.0-44.9, adult; Z79.4 Long term (current) use of insulin; M79.7 Fibromyalgia; E78.5 Hyperlipidemia, unspecified; E66.9 Obesity, unspecified; Z79.899 Other long term (current) drug therapy; F17.210 Nicotine dependence, cigarettes, uncomplicated; I10 Essential (primary) hypertension; E03.9 Hypothyroidism, unspecified; E55.9 Vitamin D deficiency, unspecified; F41.8 Other specified anxiety disorders; L08.9 Local infection of the skin and subcutaneous tissue, unspecified; M79.89 Other specified soft tissue disorders
CPT/HCPCS: 36415; 73630; 73718; 80048; 80053; 82962; 83735; 84100; 85025; 85610; 85652; 86140; 87040; 87070; 87075; 87077; 87186; 87205; 87640; 96361; 96365; 96366; 96367; 96372; 97802; 99218; 99284; J2020; J7030; A4216; G0378

== ENCOUNTER 2021-04-25 08:30 | Outpatient (RCR) | payer MEDICARE, MEDICAID, SELFPAY ==
[2021-03-27 10:51] VITALS: BMI 39.2
[2021-03-29 00:22] VITALS: BP 139/76; PULSE 76; RESP 17; TEMP 36.7
[2021-03-29 08:15] LABS: Bedside Glucose 269 mg/dL (70-110)
[2021-03-29 08:30] LABS: Bedside Glucose 276 mg/dL (70-110)
[2021-03-29 08:49] VITALS: BP 163/81; PULSE 81; RESP 15; TEMP 36.4
[2021-04-03 08:10] LABS: Bedside Glucose 217 mg/dL (70-110)
[2021-04-03 09:25] VITALS: BP 118/77; BP 140/73; PULSE 79; PULSE 84; RESP 16; TEMP 36.6; TEMP 36.7
[2021-04-03 10:25] LABS: Bedside Glucose 211 mg/dL (70-110)
[2021-04-03 11:17] VITALS: BP 150/76; PULSE 84; RESP 16; TEMP 36.6; BMI 39.2
--- NOTE | 2021-04-03 12:38 | PN.PCM_ITS ---
History of Present Illness Date of Service: 04/03/21 Chief Complaint: Ulceration, infection, and osteomyelitis of the left hallux. History of Wound: Patient is a 49 year old female who presents with plantar left hallux ulceration. Patient has had multiple previous infections to this wound. Patient has had both cellulitis and osteomyelitis noted to this wound. She has been hospitalized for this on multiple occasions. She has been following up with infectious disease with Dr. Lorenzo for management. 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 She would not like to lose this toe. Patient has been offloading with offloaded surgical shoe or cam boot. Patient has been struggling with buildup of callus to ulcer site. 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 Patient was most recently admitted to the hospital in November 2019 for worsening infection. During admission in October 2019 patient was also noted during that hospital stay to have an SEUN from combination of vancomycin and IV dye contrast. Patient has recently finished dialysis with return of normal kidney function. Patient seen in my office on 12/20/2020 at which point she was sent to emergency room for admittance from 12/20/2020 to 12/22/2020. Cultures were obtained and 12/20/2020 demonstrating strep agalactiae and strep epididymis. Blood work from this admission demonstrated a white blood cell count of 7.7, ESR of 18, hemoglobin A1c of 10.8 and CRP of 8.35. A new MRI was obtained of the left foot showing no further evidence of osteomyelitis of the hallux. Patient was seen by infectious disease and was discharged on oral antibiotics of cephalexin and do xycycline. After finishing these antibiotics symptoms have returned. Cultures obtained 01/16/21 grew prevotella bivia, MSSA, and strep agalactiae. Patient relates that she is currently taking the Augmentin. She was seen in the emergency room over the weekend 02/02/2021 at which point Bactrim was prescribed for her at that time. Patient had a white blood cell count of 9.0, ESR of 23, CRP of 6.25, albumin of 3.4, creatinine of 0.79. Patient went to the ED for worsening pain to her left hallux wound. Hemoglobin A1c obtained at the [facility] showed results of 9.5% on 01/24/2021. Referral was sent to Dr. Man and cinder man for further blood glucose control. Patient is yet to make appointment. Patient is not been able to dive during HBO therapy due to extremes in blood sugar. Patient has started hyperbaric oxygen therapy to assist in wound healing Progress of Wound: Slightly larger with more callus buildup without signs of infection Subjective Subjective Patient seen and examined resting comfortably. Patient denies any new pedal complaints. Patient denies any nausea, fever, chills, chest pain, shortness of breath, cough, streaking, purulence, vomiting. Objective Data Objective Data Vital Signs: Vital Signs Temp Pulse Resp BP 98 F 84 16 150/76 H 04/03/21 11:17 04/03/21 11:17 04/03/21 11:17 04/03/21 11:17 Oxygen Delivery Method Room Air Body Mass Index (BMI) 39.2 Lab / Micro Data Labs: Laboratory Results - last 24 hr 04/03/21 04/03/21 08:03 10:24 POC Glucose 217 H 211 H Physical Exam Narrative Const alert and no apparent distress General Appearance: cooperative and comfortable Lymph Lymphatic: no lymphedema noted Resp normal respiratory effort Effort and Inspection: able to speak in complete sentences Extremity normal capillary refill, no calf tenderness and no pedal edema General Extremity: no tenderness to palpation of joints or extremities; Negative for clubbing or cyanosis Peripheral Pulses: Yes posterior tibial pulses present right 2+ and dorsalis pedis pulses present right 2+ Skin General Skin Exam: Negative for ecchymosis, erythema, eschar, pallor or dermatitis Rashes: no rashes Wounds: wounds noted Wound Narrative: ulcers noted to left medial plantar hallux. No malodor, probing to bone, streaking, fluctuation, crepitus. Skin is atrophic and hairless. Mild surrounding callus tissue noted. Granular base. Patient has minor erythema noted to entire hallux this has possibly been chronic and has been present for several months without significant change or resolution with antibiotics but is noted to be unchanged today. Serosanguineous drainage noted. 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 Neuro Gait (Neuro): normal gait Sensory Exam: extremities light-touch: decreased Motor Exam: strength 5/5 throughout Psych Appearance: appropriate Attitude: calm Debridement Note Debridement Note Post-Debridement Measurements and Additional Note: Post-Debridement Measurements/Treatment WC - Nurse 1 - General Ulcer Assessment Start: 03/29/21 08:49 Freq: Status: Active Protocol: NANCY Activity Type Activity Date Activity User E-Sign Co-Sign Detail Recorded Client Recorded Date Recorded By Document 04/03/21 11:17 [facility] [employer] 04/03/21 11:23 [facility] 04/03/21 11:17 - Today's Visit Information Type of service Follow-up Visit (Physician/C.O.D. AUDIT CLERK ) Arrival Mode Ambulatory Transfer Assistance None Patient Identification Verified (Name & Yes ) Patient Requires Transmission-Based No Precautions Height and Weight Body Mass Index (BMI) 39.2 BMI Classification Obese Vital Signs Temperature (97.8 F-99.1 F) 98 F Temperature Source Temporal Pulse Rate (60-100) 84 Pulse Location Monitor Respiratory Rate (12-18) 16 Respiratory rate source Observation Oxygen Delivery Method Room Air Blood Pressure (90/60-120/80) 150/76 H Blood Pressure Mean (mm Hg) 100 Source Monitor Position Sitting Blood Pressure Location Left Arm History Since Last Visit- (Skip if this is Patient's initial visit) Have you changed medications since your No last visit? Any new allergies or adverse reactions No Had a fall/change in ADL's that may No increase risk of falls Signs or symptoms of abuse and/or No neglect since last visit Have you been in the hospital since your No last visit? Has dressing in place as prescribed Yes Has compression in place as prescribed N/A Has offloadiing in place as prescribed N/A Experienced any changes in pain level or No management Left Footwear Regular Shoe Right Footwear Regular Shoe Pain Scale: 0-10 Numeric Is Patient Pain Free? Yes - Nurse 1 - General Ulcer Measurement Start: 03/29/21 08:49 Freq: Status: Active Protocol: Activity Type Activity Date Activity User E-Sign Co-Sign Detail Recorded Client Recorded Date Recorded By Document 04/03/21 11:17 [facility] [employer] 04/03/21 11:23 [facility] 04/03/21 11:17 Wound Center Nurse 1 #2 l Grt Toe Plantar -Combined with other wound No -Current Size (cm) - Length 0.6 -Current Size (cm) - Width 0.4 -Current Size (cm) - Depth 0.2 -Total Square Cm 0.24 -Photo Taken No -Epithelialization None Present -Tunneling No -Undermining/Tunneling No -Circular Undermining No -Exudate Amt Small -Exudate Type Serosanguineous -Wound Margin Distinct, Outline Attached -Granulation Amt Small (1-33%) -Granulation Quality Red -Slough/Fibrin Yes -Necrosis Amt Medium (34-66%) -Necrotic Tissue Type Adherent Slough -Texture (Sherin-wound Skin Appearance) Assessed,Callus ,Scarring -Moisture (Sherin-wound Skin Appearance) Assessed,Dry/ Scaly -Color (Sherin-wound Skin Appearance) Assessed -Temperature (Sherin-wound Skin No Abnormality Appearance) (Pt Warm) -Tenderness on Palpation (Sherin-wound No Skin Appearance) -Ulcer Cleansing Rinsed/ Irrigated with Saline -Foul Odor after Cleansing No -Anesthetic Used 5% Lidocaine Gel WC - Nurse 2 - General Ulcer CM Notes Start: 03/29/21 08:49 Freq: Status: Active Protocol: Activity Type Activity Date Activity User E-Sign Co-Sign Detail Recorded Client Recorded Date Recorded By Document 04/03/21 11:45 GISELA [id number] 04/03/21 11:46 GISELA 04/03/21 11:45 Wound Center Nurse 2 -Time 11:45 -Correct Patient Yes -Correct Side, Site, Position Yes -Correct Procedure Yes -Procedure Performed Yes -Type of Procedure Debridement -Clinical Debridement Subcutaneous -Tissue Removed Subcutaneous -Post Debridement (cm) - Length 0.8 -Post Debridement (cm) - Width 1 -Post Debridement (cm) - Depth 0.1 -Total Square (Post) (cm) 0.8 -Area of Debridement (cm) - Length 0.8 -Area of Debridement (cm) - Width 1 -Total Square (Area) (cm) 0.8 -Tunneling No -Undermining/Tunneling No -Circular Undermining No -Wound/Ulcer Outcome Not Healed -Ulcer Cleansing Rinsed/ Irrigated with Saline -Foul Odor after Cleansing No -Bioengineered Tissue No -Bleeding Controlled with Pressure -Offloading No -Treatment Response Procedure Tolerated Well -Debridement - Subq, 1st 20sq cm Yes Pain Scale: 0-10 Numeric Is Patient Pain Free? Yes - Nurse 3 - General Ulcer D/C NN Start: 03/29/21 08:49 Freq: Status: Active Protocol: Activity Type Activity Date Activity User E-Sign Co-Sign Detail Recorded Client Recorded Date Recorded By Document 04/03/21 11:47 [id number] 04/03/21 11:48 JF 04/03/21 11:47 Wound Care Nurse 3 #2 l Grt Toe Plantar -Ulcer Cleansing Rinsed/ Irrigated with Saline -Foul Odor after Cleansing No -Primary Dressing Applied Promogran Maryuri Matter -Primary Dressing Covered/Secured with Secured with Tape -Promogran Maryuri Matter 1 Pain Scale: 0-10 Numeric Is Patient Pain Free? Yes WC - Visit Discharge Discharge Condition Stable Ambulatory Status Ambulatory Transportation Private [facility] Medication Reconcilliation completed & Yes provided to patient/care provider Clinical Summary of Care Provided Yes Wound debrided: Hallux Laterality: Left Wound Grade/Stage: Bucio 3 Type of Debridement: Excisional debridement Anesthesia Used: 4% Lidocaine Solution Depth: in the subcutaneous layer Percentage of wound debrided: 100 Instrument Used: #15 blade Tissue Removed: includes fibrous, devitalized, biofilm, callus and slough tissue Severity: Fat Layer Exposed Amount of bleeding with debridement: Mild Bleeding Controlled with: Pressure Patient tolerated procedure: Patient tolerated procedure well Assessment/Plan Assessment/Plan (1) Non-pressure chronic ulcer of other part of left foot with fat layer exposed: CODE(S): L97.522 - Non-pressure chronic ulcer of other part of left foot with fat layer exposed (2) Left hallux osteomyelitis: CODE(S): M86.9 - Osteomyelitis, unspecified (3) Amputation of right great toe: CODE(S): S98.111A - Complete traumatic amputation of right great toe, initial encounter (4) Type 2 diabetes mellitus with diabetic polyneuropathy: CODE(S): E11.42 - Type 2 diabetes mellitus with diabetic polyneuropathy QUALIFIERS: Diabetes mellitus [employer] insulin use: unspecified [employer] insulin use status Qualified Code(s): E11.42 - Type 2 diabetes mellitus with diabetic polyneuropathy (5) Obesity (BMI 30-39.9): CODE(S): E66.9 - Obesity, unspecified QUALIFIERS: Body mass index: BMI 33.0-33.9 Obesity classification: adult class 1 (BMI 30 - 34.9) Obesity type: due to excess calories Serious obesity comorbidity presence: with serious comorbidity Qualified Code(s): E66.09 - Other obesity due to excess calories; Z68.33 - Body mass index [BMI] 33.0-33.9, adult PLAN: Patient seen and examined. Patient presents today ambulating in sandals again Ulceration site is slightly larger. Patient is following up with Dr Garcia, who is willing to work with her with his team to better control her sugars. Patient is only been able to undergo HBO therapy a handful of times since she was approved due to her extremes in blood sugar. Patient is noting improvement since diving though. Patient also had a hemoglobin A1c 01/24/2021 was 9.5%. Albumin 02/02/2021 of 3.4. CRP 02/02/2021 of 6.25. ESR on 02/02/2021 was 23. White blood cell count of 9.0 on 02/02/2021 During recent inpatient admission for reoccurring infection to her hallux wound patient saw the hospital lockstitch waistline joiner on 12/20/20 where dietary counseling was given to address low albumin and high blood sugar to better optimize patient for healing. MRI obtained while in the hospital on 12/20/2020 demonstrated no evidence of osteomyelitis to the left hallux but did show swelling and cellulitis after treatment course of antibiotics. Patient is noted to have recurrent signs of infection to the hallux consistent with infection. There is concern the infec tion could have reinfected the bone. No signs of infection recur since patient comes off the antibiotics and sometimes remain even while on the antibiotics even though not as severe Blood flow studies reviewed. Venous studies showed patent deep veins. Arterial studies showed Right OSVALDO 1.08 and TBI 0.99 and left OSVALDO 1.02 and TBI 1.07 with bilateral triphasic pulses noted. This should prove adequate to allow healing. After verbal consent was obtained sharp excisional debridement was carried out which was well tolerated with patient's neuropathy. Continue wound care daily with maryuri silver dressing followed by DSD. Discussed importance of offloading with offloaded surgical shoe or cam boot with offloading pad. Patient did not tolerate an offloading by a total contact cast and does not wish to return to this option in the future. Patient has an offloaded CAM boot is also a valid offloading option for the patient. Reiterated patient the importance of offloading for wound healing. Discussed that the amount of callus buildup and increased size of the ulceration is suggestive of too much pressure to the ulcerative site. Discussed that every step adds up. Discussed that the sandals she presents in today are not helping to offload the ulceration site. Discussed proper blood sugar control, diet, wound care, and offloading to better allow healing. Discussed signs of infection to watch out for and to contact if any concerns arise. Patient educated on signs to watch out for and if seen patient contact doctor's office or go to the emergency room. All questions answered. Patient noted to have started HBO therapy. Patient has since gotten tubes placed in her ears by ENT in order to better allow for HBO therapy. Patient is still not being able to dive every day due to extremes in blood sugar. Follow up 1 week. This note was generated with [employer] dictation software. It may contain incorrect words, spelling, and punctuation that were not noted in checking the note before signing.
--- NOTE | 2021-04-03 13:14 | HBO.PN.PCM_ITS ---
History of Present Illness Date of Service: 04/03/21 Chief Complaint: Ulceration, infection, and osteomyelitis of the left hallux. History of Wound: Patient is a 49 year old female who presents with plantar left hallux ulceration. Patient has had multiple previous infections to this wound. Patient has had both cellulitis and osteomyelitis noted to this wound. She has been hospitalized for this on multiple occasions. She has been following up with infectious disease with Dr. Lorenzo for management. 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 She would not like to lose this toe. Patient has been offloading with offloaded surgical shoe or cam boot. Patient has been struggling with buildup of callus to ulcer site. 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 Patient was most recently admitted to the hospital in November 2019 for worsening infection. During admission in October 2019 patient was also noted during that hospital stay to have an SEUN from combination of vancomycin and IV dye contrast. Patient has recently finished dialysis with return of normal kidney function. Patient seen in my office on 12/20/2020 at which point she was sent to emergency room for admittance from 12/20/2020 to 12/22/2020. Cultures were obtained and 12/20/2020 demonstrating strep agalactiae and strep epididymis. Blood work from this admission demonstrated a white blood cell count of 7.7, ESR of 18, hemoglobin A1c of 10.8 and CRP of 8.35. A new MRI was obtained of the left foot showing no further evidence of osteomyelitis of the hallux. Patient was seen by infectious disease and was discharged on oral antibiotics of cephalexin and do xycycline. After finishing these antibiotics symptoms have returned. Cultures obtained 01/16/21 grew prevotella bivia, MSSA, and strep agalactiae. Patient relates that she is currently taking the Augmentin. She was seen in the emergency room over the weekend 02/02/2021 at which point Bactrim was prescribed for her at that time. Patient had a white blood cell count of 9.0, ESR of 23, CRP of 6.25, albumin of 3.4, creatinine of 0.79. Patient went to the ED for worsening pain to her left hallux wound. Hemoglobin A1c obtained at [facility] showed results of 9.5% on 01/24/2021. Referral was sent to Dr. Man and hemodialysis lab technician for further blood glucose control. Patient is yet to make appointment. Patient is not been able to dive during HBO therapy due to extremes in blood sugar. Patient has started hyperbaric oxygen therapy to assist in wound healing Subjective Subjective This is a 50-year-old undergoing hyperbaric oxygen therapy for infection and osteomyelitis of the left hallux. Today's hyperbaric oxygen therapy session represents the 12th session of an expected 30 such sessions. Hyperbaric oxygen therapy was administered as per the facility's protocol. Patient underwent hyperbaric treatment at 2 [place] for 90 minutes, and no air breaks. Patient did well without complications, but had a small episode of emesis at the very conclusion of her treatment. Upon emergence from the hyperbaric chamber, the patient's vital signs remained stable. She was discharged in good condition. Pre- and post- treatment glucose measurements are documented elsewhere. Objective Data Objective Data Vital Signs: Vital Signs Temp Pulse Resp BP 98 F 84 16 150/76 H 04/03/21 11:17 04/03/21 11:17 04/03/21 11:17 04/03/21 11:17 Oxygen Delivery Method Room Air Body Mass Index (BMI) 39.2 Lab / Micro Data Labs: Laboratory Results - last 24 hr 04/03/21 04/03/21 08:03 10:24 POC Glucose 217 H 211 H Exam Physical Exam Const alert, oriented x3 and no apparent distress General Appearance: cooperative and well developed HEENT normocephalic Head and Scalp: atraumatic Eyes PERRL and EOMs intact bilaterally Resp normal respiratory effort and no use of accessory muscles Effort and Inspection: able to speak in complete sentences Psych Appearance: grossly normal Nursing Assessment and Debridement Post-Debridement Measurements and Additional Note: Post-Debridement Measurements/Treatment - Nurse 1 - General Ulcer Assessment Start: 03/29/21 08:49 Freq: Status: Active Protocol: [email or web address].GAIL Activity Type Activity Date Activity User E-Sign Co-Sign Detail Recorded Client Recorded Date Recorded By Document 04/03/21 11:17 [facility] Desktop 04/03/21 11:23 [facility] 04/03/21 11:17 - Today's Visit Information Type of service Follow-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 ) Arrival Mode Ambulatory Transfer Assistance None Patient Identification Verified (Name & Yes ) Patient Requires Transmission-Based No Precautions Height and Weight Body Mass Index (BMI) 39.2 BMI Classification Obese Vital Signs Temperature (97.8 F-99.1 F) 98 F Temperature Source Temporal Pulse Rate (60-100) 84 Pulse Location Monitor Respiratory Rate (12-18) 16 Respiratory rate source Observation Oxygen Delivery Method Room Air Blood Pressure (90/60-120/80) 150/76 H Blood Pressure Mean (mm Hg) 100 Source Monitor Position Sitting Blood Pressure Location Left Arm History Since Last Visit- (Skip if this is Patient's initial visit) Have you changed medications since your No last visit? Any new allergies or adverse reactions No Had a fall/change in ADL's that may No increase risk of falls Signs or symptoms of abuse and/or No neglect since last visit Have you been in the hospital since your No last visit? Has dressing in place as prescribed Yes Has compression in place as prescribed N/A Has offloadiing in place as prescribed N/A Experienced any changes in pain level or No management Left Footwear Regular Shoe Right Footwear Regular Shoe Pain Scale: 0-10 Numeric Is Patient Pain Free? Yes WC - Nurse 1 - General Ulcer Measurement Start: 03/29/21 08:49 Freq: Status: Active Protocol: Activity Type Activity Date Activity User E-Sign Co-Sign Detail Recorded Client Recorded Date Recorded By Document 04/03/21 11:17 [facility] Desktop 04/03/21 11:23 [facility] 04/03/21 11:17 Wound Center Nurse 1 #2 l Grt Toe Plantar -Combined with other wound No -Current Size (cm) - Length 0.6 -Current Size (cm) - Width 0.4 -Current Size (cm) - Depth 0.2 -Total Square Cm 0.24 -Photo Taken No -Epithelialization None Present -Tunneling No -Undermining/Tunneling No -Circular Undermining No -Exudate Amt Small -Exudate Type Serosanguineous -Wound Margin Distinct, Outline Attached -Granulation Amt Small (1-33%) -Granulation Quality Red -Slough/Fibrin Yes -Necrosis Amt Medium (34-66%) -Necrotic Tissue Type Adherent Slough -Texture (Sherin-wound Skin Appearance) Assessed,Callus ,Scarring -Moisture (Sherin-wound Skin Appearance) Assessed,Dry/ Scaly -Color (Sherin-wound Skin Appearance) Assessed -Temperature (Sherin-wound Skin No Abnormality Appearance) (Pt Warm) -Tenderness on Palpation (Sherin-wound No Skin Appearance) -Ulcer Cleansing Rinsed/ Irrigated with Saline -Foul Odor after Cleansing No -Anesthetic Used 5% Lidocaine Gel - Nurse 2 - General Ulcer CM Notes Start: 03/29/21 08:49 Freq: Status: Active Protocol: Activity Type Activity Date Activity User E-Sign Co-Sign Detail Recorded Client Recorded Date Recorded By Document 04/03/21 11:45 GISELA [id number] 04/03/21 11:46 GISELA 04/03/21 11:45 Wound Center Nurse 2 -Time 11:45 -Correct Patient Yes -Correct Side, Site, Position Yes -Correct Procedure Yes -Procedure Performed Yes -Type of Procedure Debridement -Clinical Debridement Subcutaneous -Tissue Removed Subcutaneous -Post Debridement (cm) - Length 0.8 -Post Debridement (cm) - Width 1 -Post Debridement (cm) - Depth 0.1 -Total Square (Post) (cm) 0.8 -Area of Debridement (cm) - Length 0.8 -Area of Debridement (cm) - Width 1 -Total Square (Area) (cm) 0.8 -Tunneling No -Undermining/Tunneling No -Circular Undermining No -Wound/Ulcer Outcome Not Healed -Ulcer Cleansing Rinsed/ Irrigated with Saline -Foul Odor after Cleansing No -Bioengineered Tissue No -Bleeding Controlled with Pressure -Offloading No -Treatment Response Procedure Tolerated Well -Debridement - Subq, 1st 20sq cm Yes Pain Scale: 0-10 Numeric Is Patient Pain Free? Yes - Nurse 3 - General Ulcer D/C NN Start: 03/29/21 08:49 Freq: Status: Active Protocol: Activity Type Activity Date Activity User E-Sign Co-Sign Detail Recorded Client Recorded Date Recorded By Document 04/03/21 11:47 GISELA [id number] 04/03/21 11:48 GISELA 04/03/21 11:47 Wound Care Nurse 3 #2 l Grt Toe Plantar -Ulcer Cleansing Rinsed/ Irrigated with Saline -Foul Odor after Cleansing No -Primary Dressing Applied Promogran Rain Matter -Primary Dressing Covered/Secured with Secured with Tape -Promogran Rain Matter 1 Pain Scale: 0-10 Numeric Is Patient Pain Free? Yes WC - Visit Discharge Discharge Condition Stable Ambulatory Status Ambulatory Transportation Private Auto Medication Reconcilliation completed & Yes provided to patient/care provider Clinical Summary of Care Provided Yes Assessment/Plan Assessment/Plan (1) Left hallux osteomyelitis: CODE(S): M86.9 - Osteomyelitis, unspecified (2) Diabetic foot ulcer with osteomyelitis: CODE(S): E11.621 - Type 2 diabetes mellitus with foot ulcer; E11.69 - Type 2 diabetes mellitus with other specified complication; L97.509 - Non-pressure chronic ulcer of other part of unspecified foot with unspecified severity; M86.9 - Osteomyelitis, unspecified (3) Hyperglycemia: CODE(S): R73.9 - Hyperglycemia, unspecified (4) Abscess of left great toe: CODE(S): L02.612 - Cutaneous abscess of left foot (5) Non-pressure chronic ulcer of other part of left foot with fat layer exposed: CODE(S): L97.522 - Non-pressure chronic ulcer of other part of left foot with fat layer exposed (6) Cellulitis of toe of left foot: CODE(S): L03.032 - Cellulitis of left toe (7) Skin ulcer of left great toe with fat layer exposed: CODE(S): L97.522 - Non-pressure chronic ulcer of other part of left foot with fat layer exposed (8) Diabetic foot ulcer: CODE(S): E11.621 - Type 2 diabetes mellitus with foot ulcer; L97.509 - Non-pressure chronic ulcer of other part of unspecified foot with unspecified severity QUALIFIERS: Diabetic foot ulcer location: toe Diabetes mellitus type: type 2 Laterality: left Non-pressure ulcer stage: with muscle involvement without evidence of necrosis Qualified Code(s): E11.621 - Type 2 diabetes mellitus with foot ulcer; L97.525 - Non-pressure chronic ulcer of other part of left foot with muscle involvement without evidence of necrosis (9) Osteomyelitis: CODE(S): M86.9 - Osteomyelitis, unspecified QUALIFIERS: Osteomyelitis type: other chronic Osteomyelitis location: foot Laterality: left Qualified Code(s): M86.672 - Other chronic osteomyelitis, left ankle and foot PLAN: The patient appears to be tolerating hyperbaric oxygen therapy well, which will be continued as per the patient's medical plan.
[2021-04-09 08:05] LABS: Bedside Glucose 234 mg/dL (70-110)
[2021-04-09 08:55] VITALS: BP 155/80; PULSE 77; RESP 16; TEMP 36.3
--- NOTE | 2021-04-09 09:22 | PCM.HBO.PN ---
History of Present Illness Date of Service: 04/09/21 Chief Complaint: Ulceration, infection, and osteomyelitis of the left hallux. History of Wound: Patient is a 49 year old female who presents with plantar left hallux ulceration. Patient has had multiple previous infections to this wound. Patient has had both cellulitis and osteomyelitis noted to this wound. She has been hospitalized for this on multiple occasions. She has been following up with infectious disease with Dr. Lorenzo for management. 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 She would not like to lose this toe. Patient has been offloading with offloaded surgical shoe or cam boot. Patient has been struggling with buildup of callus to ulcer site. 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 Patient was most recently admitted to the hospital in November 2019 for worsening infection. During admission in October 2019 patient was also noted during that hospital stay to have an SEUN from combination of vancomycin and IV dye contrast. Patient has recently finished dialysis with return of normal kidney function. Patient seen in my office on 12/20/2020 at which point she was sent to emergency room for admittance from 12/20/2020 to 12/22/2020. Cultures were obtained and 12/20/2020 demonstrating strep agalactiae and strep epididymis. Blood work from this admission demonstrated a white blood cell count of 7.7, ESR of 18, hemoglobin A1c of 10.8 and CRP of 8.35. A new MRI was obtained of the left foot showing no further evidence of osteomyelitis of the hallux. Patient was seen by infectious disease and was discharged on oral antibiotics of cephalexin and doxycycline. After finishing these antibiotics symptoms have returned. Cultures obtained 01/16/21 grew prevotella bivia, MSSA, and strep agalactiae. Patient relates that she is currently taking the Augmentin. She was seen in the emergency room over the weekend 02/02/2021 at which point Bactrim was prescribed for her at that time. Patient had a white blood cell count of 9.0, ESR of 23, CRP of 6.25, albumin of 3.4, creatinine of 0.79. Patient went to the ED for worsening pain to her left hallux wound. Hemoglobin A1c obtained at the [facility] showed results of 9.5% on 01/24/2021. Referral was sent to Dr. Man and chucker for further blood glucose control. Patient is yet to make appointment. Patient is not been able to dive during HBO therapy due to extremes in blood sugar. Patient has started hyperbaric oxygen therapy to assist in wound healing Progress of Wound: Slightly larger with more callus buildup without signs of infection Subjective Subjective This is a 50-year-old undergoing hyperbaric oxygen therapy for infection and osteomyelitis of the left hallux. Today's hyperbaric oxygen therapy session represents the 13th session of an expected 30 such sessions. Hyperbaric oxygen therapy was administered as per the facility's protocol. Shortly after being placed into the hyperbaric oxygen chamber she experienced right ear pain. The session was discontinued. The patient was removed from the chamber. She did have some slight redness to the right tympanic membrane, however the eustachian tube remained intact. She does have an appointment later this afternoon with her shear grinder operator. She admits that she had been having increase in sinus symptoms today as well. Stop treatment today. Hold until cleared by shear grinder operator. She did have an increased amount of cerumen to that right ear canal. Objective Data Objective Data Vital Signs: Vital Signs Temp Pulse Resp BP 97.4 F L 77 16 155/80 H 04/09/21 08:55 04/09/21 08:55 04/09/21 08:55 04/09/21 08:55 Oxygen Delivery Method Room Air Body Mass Index (BMI) 39.2 Lab / Micro Data Labs: Laboratory Results - last 24 hr 04/09/21 08:03: POC Glucose 234 H Exam Physical Exam Const alert, oriented x3, no apparent distress and well nourished General Appearance: cooperative and well developed HEENT normocephalic Head and Scalp: atraumatic Resp normal respiratory effort and clear to auscultation bilaterally Cardio regular rate and regular rhythm Psych Appearance: grossly normal Assessment/Plan Assessment/Plan (1) Ear pain, right: CODE(S): H92.01 - Otalgia, right ear PLAN: The patient will be evaluated by shear grinder operator later today. I suspect she will need to have the cerumen removed. Hold on further HBO treatments until released by shear grinder operator. (2) Left hallux osteomyelitis: CODE(S): M86.9 - Osteomyelitis, unspecified (3) Diabetic foot ulcer with osteomyelitis: CODE(S): E11.621 - Type 2 diabetes mellitus with foot ulcer; E11.69 - Type 2 diabetes mellitus with other specified complication; L97.509 - Non-pressure chronic ulcer of other part of unspecified foot with unspecified severity; M86.9 - Osteomyelitis, unspecified (4) Hyperglycemia: CODE(S): R73.9 - Hyperglycemia, unspecified (5) Abscess of left great toe: CODE(S): L02.612 - Cutaneous abscess of left foot (6) Non-pressure chronic ulcer of other part of left foot with fat layer exposed: CODE(S): L97.522 - Non-pressure chronic ulcer of other part of left foot with fat layer exposed (7) Cellulitis of toe of left foot: CODE(S): L03.032 - Cellulitis of left toe (8) Skin ulcer of left great toe with fat layer exposed: CODE(S): L97.522 - Non-pressure chronic ulcer of other part of left foot with fat layer exposed (9) Diabetic foot ulcer: CODE(S): E11.621 - Type 2 diabetes mellitus with foot ulcer; L97.509 - Non-pressure chronic ulcer of other part of unspecified foot with unspecified severity QUALIFIERS: Diabetic foot ulcer location: toe Diabetes mellitus type: type 2 Laterality: left Non-pressure ulcer stage: with muscle involvement without evidence of necrosis Qualified Code(s): E11.621 - Type 2 diabetes mellitus with foot ulcer; L97.525 - Non-pressure chronic ulcer of other part of left foot with muscle involvement without evidence of necrosis (10) Osteomyelitis: CODE(S): M86.9 - Osteomyelitis, unspecified QUALIFIERS: Osteomyelitis type: other chronic Osteomyelitis location: foot Laterality: left Qualified Code(s): M86.672 - Other chronic osteomyelitis, left ankle and foot
[2021-04-11 08:06] LABS: Bedside Glucose 244 mg/dL (70-110)
[2021-04-16 08:38] VITALS: TEMP 36.3
[2021-04-17 07:20] LABS: Bedside Glucose 285 mg/dL (70-110)
[2021-04-17 07:20] LABS: Bedside Glucose 286 mg/dL (70-110)
[2021-04-17 08:05] LABS: Bedside Glucose 262 mg/dL (70-110)
[2021-04-17 08:13] VITALS: BP 144/71; PULSE 91; TEMP 36.4; BMI 39.2
[2021-04-25 08:46] LABS: Bedside Glucose 146 mg/dL (70-110)
[2021-04-25 09:20] VITALS: BP 174/88; PULSE 83; RESP 16; TEMP 36.7
--- NOTE | 2021-04-25 11:03 | HBO.PN.PCM_ITS ---
History of Present Illness Date of Service: 04/25/21 Chief Complaint: Ulceration, infection, and osteomyelitis of the left hallux. History of Wound: Patient is a 49 year old female who presents with plantar left hallux ulceration. Patient has had multiple previous infections to this wound. Patient has had both cellulitis and osteomyelitis noted to this wound. She has been hospitalized for this on multiple occasions. She has been following up with infectious disease with Dr. Lorenzo for management. 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 She would not like to lose this toe. Patient has been offloading with offloaded surgical shoe or cam boot. Patient has been struggling with buildup of callus to ulcer site. 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 Patient was most recently admitted to the hospital in November 2019 for worsening infection. During admission in October 2019 patient was also noted during that hospital stay to have an SEUN from combination of vancomycin and IV dye contrast. Patient has recently finished dialysis with return of normal kidney function. Patient seen in my office on 12/20/2020 at which point she was sent to emergency room for admittance from 12/20/2020 to 12/22/2020. Cultures were obtained and 12/20/2020 demonstrating strep agalactiae and strep epididymis. Blood work from this admission demonstrated a white blood cell count of 7.7, ESR of 18, hemoglobin A1c of 10.8 and CRP of 8.35. A new MRI was obtained of the left foot showing no further evidence of osteomyelitis of the hallux. Patient was seen by infectious disease and was discharged on oral antibiotics of cephalexin and do xycycline. After finishing these antibiotics symptoms have returned. Cultures obtained 01/16/21 grew prevotella bivia, MSSA, and strep agalactiae. Patient relates that she is currently taking the Augmentin. She was seen in the emergency room over the weekend 02/02/2021 at which point Bactrim was prescribed for her at that time. Patient had a white blood cell count of 9.0, ESR of 23, CRP of 6.25, albumin of 3.4, creatinine of 0.79. Patient went to the ED for worsening pain to her left hallux wound. Hemoglobin A1c obtained at the [facility] showed results of 9.5% on 01/24/2021. Referral was sent to Dr. Man and epitaxial reactor operator for further blood glucose control. Patient is yet to make appointment. Patient is not been able to dive during HBO therapy due to extremes in blood sugar. Patient has started hyperbaric oxygen therapy to assist in wound healing Patient started HBO treatment today but developed bilateral ear pain and left patient was only under for 2 minutes. Patient states refuses to go see a ENT and probably will not finish HBO. Progress of Wound: Slightly larger with more callus buildup without signs of infection Objective Data Objective Data Vital Signs: Vital Signs Temp Pulse Resp BP 98.1 F 83 16 174/88 H 04/25/21 09:20 04/25/21 09:20 04/25/21 09:20 04/25/21 09:20 Oxygen Delivery Method Room Air Body Mass Index (BMI) 39.2 Lab / Micro Data Labs: Laboratory Results - last 24 hr 04/25/21 08:03: POC Glucose 146 H Assessment/Plan Assessment/Plan (1) Acute pain of both ears: CODE(S): H92.03 - Otalgia, bilateral PLAN: Patient refuses to go to ENT and would like not to do HBO again (2) Diabetic foot infection: CODE(S): E11.628 - Type 2 diabetes mellitus with other skin complications; L08.9 - Local infection of the skin and subcutaneous tissue, unspecified (3) Osteomyelitis: CODE(S): M86.9 - Osteomyelitis, unspecified QUALIFIERS: Osteomyelitis type: other chronic Osteomyelitis location: foot Laterality: left Qualified Code(s): M86.672 - Other chronic osteomyelitis, left ankle and foot PLAN: Patient was only down for 2 minutes before she developed ear pain and came back up HBO was disc continued and patient was discharged home
== END 2021-04-28 23:59 ==
LOC: WC 08:30
PROVIDERS: PCP Internal Medicine; Visit Provider Podiatrist Foot & Ankle Surgery
DX: E11.621 Type 2 diabetes mellitus with foot ulcer (principal); L97.525 Non-pressure chronic ulcer of other part of left foot with muscle involvement without evidence of necrosis; M86.672 Other chronic osteomyelitis, left ankle and foot; S89.111A Salter-Harris Type I physeal fracture of lower end of right tibia, initial encounter for closed fracture; E11.42 Type 2 diabetes mellitus with diabetic polyneuropathy; E66.09 Other obesity due to excess calories; Z68.33 Body mass index [BMI] 33.0-33.9, adult; Z91.19 Patient's noncompliance with other medical treatment and regimen; Z89.411 Acquired absence of right great toe; Z99.2 Dependence on renal dialysis; E11.65 Type 2 diabetes mellitus with hyperglycemia; L02.612 Cutaneous abscess of left foot; L03.032 Cellulitis of left toe
CPT/HCPCS: 11042; 82962; 99183; G0277

== ENCOUNTER 2021-05-22 11:30 | Outpatient (RCR) | payer MEDICARE, MEDICAID, SELFPAY ==
[2021-04-29 00:26] VITALS: BP 174/88; PULSE 83; RESP 16; TEMP 36.7
[2021-05-01 11:44] VITALS: BP 159/85; PULSE 99; RESP 22; TEMP 36.6; BMI 40.9
--- NOTE | 2021-05-03 10:42 | PN.PCM_ITS ---
History of Present Illness Date of Service: 05/01/21 Chief Complaint: Left hallux wound History of Wound: Patient is a 50 year old female who presents with chronic nonhealing plantar left hallux ulceration. Patient has had multiple previous infections to this wound. Patient has had both cellulitis and osteomyelitis noted to this wound. She has been hospitalized for this on multiple occasions. She has been following up with infectious disease with Dr. Lorenzo for management. 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 She would not like to lose this toe. Patient was most recently admitted to the hospital on 04/19/2021 for worsening cellulitis and left hallux ulceration. At that time her white blood cell upon admission was 13.9 and resolved back to normal levels with antibiotics. Patient's ESR was 36, CRP was 23.7, albumin was 2.6, total protein was 6.1. Patient had positive MRSA PCR test from the wound. Infectious disease was also consulted during her hospital visit along with podiatry. She was discharged on doxycycline and Augmentin per infectious disease, Dr. Lorenzo. Patient is also noted to have significant delays in wound healing. She is been seen multiple times at the office without wearing her offloading shoe for her ulcer. She is also been noncompliant and regularly coming to her HBO therapy appointments. She is also struggling to maintain her blood sugar at a level that is acceptable for HBO therapy. She has been working with her PCP and a pharmacist for better blood sugar control. She is also been trying to lose weight with noom recently. Progress of Wound: Stable Subjective Subjective Patient seen and examined resting comfortably. Patient denies any new pedal complaints. Patient denies any nausea, fever, chills, chest pain, shortness of breath, cough, streaking, purulence, vomiting. Patient relates that she is trying to take a more active role in her health Objective Data Objective Data Vital Signs: Vital Signs Temp Pulse Resp BP 98 F 99 22 H 159/85 H 05/01/21 11:44 05/01/21 11:44 05/01/21 11:44 05/01/21 11:44 Body Mass Index (BMI) 40.9 Physical Exam Narrative Const alert and no apparent distress General Appearance: cooperative and comfortable Lymph Lymphatic: no lymphedema noted Resp normal respiratory effort Effort and Inspection: able to speak in complete sentences Extremity normal capillary refill, no calf tenderness and no pedal edema General Extremity: no tenderness to palpation of joints or extremities; Negative for clubbing or cyanosis Peripheral Pulses: posterior tibial pulses present left 2+ and dorsalis pedis pulses present left 2+ Skin General Skin Exam: Negative for ecchymosis, eschar, pallor or dermatitis Rashes: no rashes Wounds: wounds noted Wound Narrative: ulcers noted to left medial plantar hallux. No malodor, probing to bone, fluctuation, crepitus. Skin is atrophic and hairless. Surrounding callus tissue noted. Granular base. Patient has less erythema noted to entire hallux-redness to hallux is a chronic finding. Serosanguineous drainage noted. No pain. No purulent drainage 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 Neuro Gait (Neuro): normal gait Sensory Exam: extremities light-touch: decreased Motor Exam: strength 5/5 throughout Psych Appearance: appropriate Debridement Note Debridement Note Post-Debridement Measurements and Additional Note: Post-Debridement Measurements/Treatment - Nurse 1 - General Ulcer Assessment Start: 05/01/21 11:43 Freq: Status: Active Protocol: NANCY Activity Type Activity Date Activity User E-Sign Co-Sign Detail Recorded Client Recorded Date Recorded By Document 05/01/21 11:44 DL [id number] 05/01/21 11:46 DL 05/01/21 11:44 - Today's Visit Information Type of service Follow-up Visit (Physician/DIRECTOR INDUSTRIAL RELATIONS ) Arrival Mode Ambulatory Transfer Assistance None Patient Identification Verified (Name & Yes ) Patient Requires Transmission-Based No Precautions Height and Weight Body Mass Index (BMI) 40.9 BMI Classification Obese Vital Signs Temperature (97.8 F-99.1 F) 98 F Temperature Source Temporal Pulse Rate (60-100) 99 Pulse Location Monitor Respiratory Rate (12-18) 22 H Respiratory rate source Observation Blood Pressure (90/60-120/80) 159/85 H Blood Pressure Mean (mm Hg) 109 Source Monitor History Since Last Visit- (Skip if this is Patient's initial visit) Have you changed medications since your No last visit? Any new allergies or adverse reactions No Had a fall/change in ADL's that may No increase risk of falls Signs or symptoms of abuse and/or No neglect since last visit Have you been in the hospital since your No last visit? Has dressing in place as prescribed Yes Has compression in place as prescribed N/A Has offloadiing in place as prescribed No Experienced any changes in pain level or No management Pain Scale: 0-10 Numeric Is Patient Pain Free? Yes WC - Nurse 1 - General Ulcer Measurement Start: 05/01/21 11:43 Freq: Status: Active Protocol: Activity Type Activity Date Activity User E-Sign Co-Sign Detail Recorded Client Recorded Date Recorded By Document 05/01/21 11:44 WILL [id number] 05/01/21 11:46 DL 05/01/21 11:44 Wound Center Nurse 1 #2 l Grt Toe Plantar -Current Size (cm) - Length 0.5 -Current Size (cm) - Width 0.3 -Current Size (cm) - Depth 0.1 -Total Square Cm 0.15 -Photo Taken No -Exudate Amt Small -Exudate Type Serosanguineous -Wound Margin Thickened -Granulation Amt Large (67-100%) -Granulation Quality Pale -Necrosis Amt Medium (34-66%) -Necrotic Tissue Type Adherent Slough -Structure Exposed N/A -Texture (Sherin-wound Skin Appearance) Scarring -Moisture (Sherin-wound Skin Appearance) Dry/Scaly -Color (Sherin-wound Skin Appearance) Assessed -Temperature (Sherin-wound Skin No Abnormality Appearance) (Pt Warm) -Tenderness on Palpation (Sherin-wound No Skin Appearance) -Ulcer Cleansing Wound Cleanser -Foul Odor after Cleansing No -Anesthetic Used 4% Lidocaine Solution EVIN - Nurse 2 - General Ulcer CM Notes Start: 05/01/21 11:43 Freq: Status: Active Protocol: Activity Type Activity Date Activity User E-Sign Co-Sign Detail Recorded Client Recorded Date Recorded By Document 05/01/21 12:12 GISELA [id number] 05/01/21 12:16 GISELA 05/01/21 12:12 Wound Center Nurse 2 -Time 12:13 -Correct Patient Yes -Correct Side, Site, Position Yes -Correct Procedure Yes -Procedure Performed Yes -Type of Procedure Debridement -Clinical Debridement Subcutaneous -Tissue Removed Subcutaneous -Post Debridement (cm) - Length 1.2 -Post Debridement (cm) - Width 0.4 -Post Debridement (cm) - Depth 0.2 -Total Square (Post) (cm) 0.48 -Area of Debridement (cm) - Length 1.2 -Area of Debridement (cm) - Width 0.4 -Total Square (Area) (cm) 0.48 -Tunneling No -Undermining/Tunneling No -Circular Undermining No -Wound/Ulcer Outcome Not Healed -Ulcer Cleansing Rinsed/ Irrigated with Saline -Foul Odor after Cleansing No -Bioengineered Tissue No -Bleeding Controlled with Pressure -Offloading Yes -Type of Offloading Camwalker -Treatment Response Procedure Tolerated Well -Debridement - Subq, 1st 20sq cm Yes Pain Scale: 0-10 Numeric Is Patient Pain Free? Yes - Nurse 3 - General Ulcer D/C NN Start: 05/01/21 11:43 Freq: Status: Active Protocol: Activity Type Activity Date Activity User E-Sign Co-Sign Detail Recorded Client Recorded Date Recorded By Document 05/01/21 12:27 DL [id number] 05/01/21 12:28 DL 05/01/21 12:27 Wound Care Nurse 3 #2 l Grt Toe Plantar -Ulcer Cleansing Rinsed/ Irrigated with Saline -Foul Odor after Cleansing No -Primary Dressing Applied Promogran Maryuri Matter -Primary Dressing Covered/Secured with Dry Gauze,Dry Gauze & Roll Gauze,Secured with Tape -Promogran Maryuri Matter 1 Treatment Response Procedure Tolerated Well Pain Scale: 0-10 Numeric Is Patient Pain Free? Yes WC - Visit Discharge Discharge Condition Stable Ambulatory Status Ambulatory Transportation Private Auto Wound debrided: Hallux Laterality: Left Wound Grade/Stage: Bucio 3 Type of Debridement: Excisional debridement Anesthesia Used: 4% Lidocaine Solution Depth: in the subcutaneous layer Percentage of wound debrided: 100 Instrument Used: #15 blade Tissue Removed: includes fibrous, devitalized, biofilm, callus and slough tissue Severity: Fat Layer Exposed Amount of bleeding with debridement: Mild Bleeding Controlled with: Pressure Patient tolerated procedure: Patient tolerated procedure well Assessment/Plan Assessment/Plan (1) Non-pressure chronic ulcer of other part of left foot with fat layer exposed: CODE(S): L97.522 - Non-pressure chronic ulcer of other part of left foot with fat layer exposed (2) Cellulitis of toe of left foot: CODE(S): L03.032 - Cellulitis of left toe (3) Osteomyelitis: CODE(S): M86.9 - Osteomyelitis, unspecified QUALIFIERS: Osteomyelitis type: other chronic Osteomyelitis location: foot Laterality: left Qualified Code(s): M86.672 - Other chronic osteomyelitis, left ankle and foot (4) Type 2 diabetes mellitus with diabetic polyneuropathy: CODE(S): E11.42 - Type 2 diabetes mellitus with diabetic polyneuropathy QUALIFIERS: Diabetes mellitus halfway insulin use: unspecified halfway insulin use status Qualified Code(s): E11.42 - Type 2 diabetes mellitus with diabetic polyneuropathy (5) Obesity (BMI 30-39.9): CODE(S): E66.9 - Obesity, unspecified QUALIFIERS: Obesity type: due to excess calories Obesity classification: adult class 1 (BMI 30 - 34.9) Serious obesity comorbidity presence: with serious comorbidity Body mass index: BMI 33.0-33.9 Qualified Code(s): E66.09 - Other obesity due to excess calories; Z68.33 - Body mass index [BMI] 33.0-33.9, adult (6) Delayed wound healing: CODE(S): T14.8XXD - Other injury of unspecified body region, subsequent encounter (7) Amputation of right great toe: CODE(S): S98.111A - Complete traumatic amputation of right great toe, initial encounter PLAN: Patient seen and examined. Patient presents today ambulating in sandals again Ulceration site stable with significant callus buildup likely doing to her not being compliant in wearing her offloading shoes. Patient is following up with Dr Garcia, who is willing to work with her with his team to better control her sugars. Patient is only been able to undergo HBO therapy a handful of times since she was approved due to her extremes in blood sugar and not showing up to her appointments. She relates that she has an appointment this afternoon with a endocrine pharmacist to try to better control her blood sugars. Patient had episode last HBO therapy session where she relates significant ear pain. Patient is noted to have had tubes placed by ENT previously. Patient is does not wish to continue HBO at this time. Discussed with the patient that we have tried other modalities to get her wound to heal and with her noncompliance with offloading, increased blood sugar levels, for nutrition levels, and other complicating factors that that it is going to be hard to heal this wound. Patient relates that she is trying to take a more active role in her health and has signed up for [facility] for assisted nutrition and weight loss program. Discussed at length with the patient that she needs to be taking better control of her health and responsibility for otherwise she is unlikely to make progress. She relates that her blood sugars have been in the high 200s and 300s lately. Patient also had a hemoglobin A1c 01/24/2021 was 9.5%. 04/19/2021 ESR 36 and CRP of 23.7. 04/20/2021 total protein 6.1, albumin 2.6. 12/21/2020 hemoglobin A1c of 10.8%. Left hallux ulcer wound culture 04/20/2021 + for MRSA, Streptococcus agalactiae, anaerobic cocci. MRI 04/20/2021 was limited due to motion but did not demonstrate any osteomyelitis of the hallux Blood flow studies 10/23/2020. Venous studies showed patent deep veins. Arterial studies showed Right OSVALDO 1.08 and TBI 0.99 and left OSVALDO 1.02 and TBI 1.07 with bilateral triphasic pulses noted. This should prove adequate to allow healing. After verbal consent was obtained sharp excisional debridement was carried out which was well tolerated with patient's neuropathy. Continue wound care daily with maryuri silver dressing followed by DSD. Discussed importance of offloading with offloaded surgical shoe or cam boot with offloading pad. Patient did not tolerate an offloading by a total contact cast and does not wish to return to this option in the future. Patient has an offloaded CAM boot is also a valid offloading option for the patient. Patient has been noncompliant with offloading as she has frequently been showing up to her appointments in tennis shoes or sandals. Patient is also been missing her appointments. Discussed proper blood sugar control, diet, wound care, and offloading to better allow healing. Discussed signs of infection to watch out for and to contact if any concerns arise. Patient educated on signs to watch out for and if seen patient contact doctor's office or go to the emergency room. All questions answered. Follow up 2 weeks. This note was generated with [employer] dictation software. It may contain incorrect words, spelling, and punctuation that were not noted in checking the note before signing. 20 to 29 minutes was spent on this encounter. This included both face to face and non face to face care, which includes but not limited to time preparing for the visit (which includes but not limited to reviewing medical record, any pertinent paperwork, as well as previous imaging and/or test results), reviewing/obtaining the noted history, performing the noted examination, counseling and providing education to the patient as well as to patient's family and/or patient caregivers per patient request. This also includes ordering any medication(s), test(s), and/or procedure(s) as indicated and as documented in the medical record, interpreting / sharing this information when indicated (and with patient's permission) as documented, communicating with other healthcare providers as needed/as requested, the time documenting information in the medical record, as well as any further care coordination.
[2021-05-22 11:07] VITALS: BP 157/76; PULSE 88; TEMP 37.1; BMI 40.9
--- NOTE | 2021-05-22 11:40 | PCM.WC.PN ---
History of Present Illness Date of Service: 05/22/21 Chief Complaint: Left hallux wound History of Wound: Patient is a 50 year old female who presents with chronic nonhealing plantar left hallux ulceration. Patient has had multiple previous infections to this wound. Patient has had both cellulitis and osteomyelitis noted to this wound. She has been hospitalized for this on multiple occasions. She has been following up with infectious disease with Dr. Lorenzo for management. 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 She would not like to lose this toe. Patient was most recently admitted to the hospital on 04/19/2021 for worsening cellulitis and left hallux ulceration. At that time her white blood cell upon admission was 13.9 and resolved back to normal levels with antibiotics. Patient's ESR was 36, CRP was 23.7, albumin was 2.6, total protein was 6.1. Patient had positive MRSA PCR test from the wound. Infectious disease was also consulted during her hospital visit along with podiatry. She was discharged on doxycycline and Augmentin per infectious disease, Dr. Lorenzo. Patient is also noted to have significant delays in wound healing. She is been seen multiple times at the office without wearing her offloading shoe for her ulcer. She is also been noncompliant and regularly coming to her HBO therapy appointments. She is also struggling to maintain her blood sugar at a level that is acceptable for HBO therapy. She has been working with her PCP and a pharmacist for better blood sugar control. She is also been trying to lose weight with noom recently. Progress of Wound: Stable Subjective Subjective Patient seen and examined resting comfortably. Patient denies any new pedal complaints. Patient denies any nausea, fever, chills, chest pain, shortness of breath, cough, streaking, purulence, vomiting. Objective Data Objective Data Vital Signs: Vital Signs Temp Pulse Resp BP 98.7 F 88 22 H 157/76 H 05/22/21 11:07 05/22/21 11:07 05/01/21 11:44 05/22/21 11:07 Body Mass Index (BMI) 40.9 Physical Exam Narrative Const alert and no apparent distress General Appearance: cooperative and comfortable Lymph Lymphatic: no lymphedema noted Resp normal respiratory effort Effort and Inspection: able to speak in complete sentences Extremity normal capillary refill, no calf tenderness and no pedal edema General Extremity: no tenderness to palpation of joints or extremities; Negative for clubbing or cyanosis Peripheral Pulses: posterior tibial pulses present left 2+ and dorsalis pedis pulses present left 2+ Skin General Skin Exam: Negative for ecchymosis, eschar, pallor or dermatitis Rashes: no rashes Wounds: wounds noted Wound Narrative: ulcers noted to left medial plantar hallux. No malodor, probing to bone, fluctuation, crepitus. Skin is atrophic and hairless. Mild surrounding callus tissue noted. Granular base. Patient has less erythema noted to entire hallux-redness to hallux is a chronic finding. Serosanguineous drainage noted. No pain. No purulent drainage 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 Neuro Gait (Neuro): normal gait Sensory Exam: extremities light-touch: decreased Motor Exam: strength 5/5 throughout Psych Appearance: appropriate Debridement Note Debridement Note Post-Debridement Measurements and Additional Note: Post-Debridement Measurements/Treatment - Nurse 1 - General Ulcer Assessment Start: 05/01/21 11:43 Freq: Status: Active Protocol: NANCY Activity Type Activity Date Activity User E-Sign Co-Sign Detail Recorded Client Recorded Date Recorded By Document 05/01/21 11:44 DL [id number] 05/01/21 11:46 DL Document 05/22/21 11:07 AK [id number] 05/22/21 11:09 AK 05/01/21 05/22/21 11:44 11:07 - Today's Visit Information Type of service Follow-up Visit Follow-up Visit (Physician/GLAZE WIPER (Physician/GLAZE WIPER ) ) Arrival Mode Ambulatory Ambulatory Transfer Assistance None Patient Identification Verified (Name & Yes Yes ) Patient Requires Transmission-Based No No Precautions Height and Weight Body Mass Index (BMI) 40.9 40.9 BMI Classification Obese Obese Vital Signs Temperature (97.8 F-99.1 F) 98 F 98.7 F Temperature Source Temporal Temporal Pulse Rate (60-100) 99 88 Pulse Location Monitor Monitor Respiratory Rate (12-18) 22 H Respiratory rate source Observation Blood Pressure (90/60-120/80) 159/85 H 157/76 H Blood Pressure Mean (mm Hg) 109 103 Source Monitor Monitor History Since Last Visit- (Skip if this is Patient's initial visit) Have you changed medications since your No No last visit? Any new allergies or adverse reactions No No Had a fall/change in ADL's that may No No increase risk of falls Signs or symptoms of abuse and/or No No neglect since last visit Have you been in the hospital since your No No last visit? Has dressing in place as prescribed Yes Yes Has compression in place as prescribed N/A N/A Has offloadiing in place as prescribed No Yes Experienced any changes in pain level or No No management Left Footwear Surgical Shoe with pressure relief insole Right Footwear Regular Shoe Pain Scale: 0-10 Numeric Is Patient Pain Free? Yes - Nurse 1 - General Ulcer Measurement Start: 05/01/21 11:43 Freq: Status: Active Protocol: Activity Type Activity Date Activity User E-Sign Co-Sign Detail Recorded Client Recorded Date Recorded By Document 05/01/21 11:44 DL [id number] 05/01/21 11:46 DL Document 05/22/21 11:07 AK [id number] 05/22/21 11:09 AK 05/01/21 05/22/21 11:44 11:07 Wound Center Nurse 1 #2 l Grt Toe Plantar -Current Size (cm) - Length 0.5 1.6 -Current Size (cm) - Width 0.3 1.5 -Current Size (cm) - Depth 0.1 0.1 -Total Square Cm 0.15 2.40 -Photo Taken No No -Tunneling No -Undermining/Tunneling No -Circular Undermining No -Exudate Amt Small Small -Exudate Type Serosanguineous Serous -Wound Margin Thickened Distinct, Outline Attached -Granulation Amt Large (67-100%) -Granulation Quality Pale [place] -Necrosis Amt Medium (34-66%) Small (1-33%) -Necrotic Tissue Type Adherent Slough Eschar -Structure Exposed N/A -Texture (Sherin-wound Skin Appearance) Scarring No Abnormality, Assessed -Moisture (Sherin-wound Skin Appearance) Dry/Scaly No Abnormality, Assessed -Color (Sherin-wound Skin Appearance) Assessed No Abnormality, Assessed -Temperature (Sherin-wound Skin No Abnormality No Abnormality Appearance) (Pt Warm) (Pt Warm) -Tenderness on Palpation (Sherin-wound No No Skin Appearance) -Ulcer Cleansing Wound Cleanser Rinsed/ Irrigated with Saline -Foul Odor after Cleansing No -Anesthetic Used 4% Lidocaine 5% Lidocaine Solution Gel WC - Nurse 2 - General Ulcer CM Notes Start: 05/01/21 11:43 Freq: Status: Active Protocol: Activity Type Activity Date Activity User E-Sign Co-Sign Detail Recorded Client Recorded Date Recorded By Document 05/01/21 12:12 JF [id number] 05/01/21 12:16 JF Document 05/22/21 11:17 JF [id number] 05/22/21 11:20 JF 05/01/21 05/22/21 12:12 11:17 Wound Center Nurse 2 #2 l Grt Toe Plantar -Time 12:13 11:17 -Correct Patient Yes Yes -Correct Side, Site, Position Yes Yes -Correct Procedure Yes Yes -Procedure Performed Yes Yes -Type of Procedure Debridement Debridement -Clinical Debridement Subcutaneous Subcutaneous -Tissue Removed Subcutaneous Subcutaneous -Post Debridement (cm) - Length 1.2 1.1 -Post Debridement (cm) - Width 0.4 0.6 -Post Debridement (cm) - Depth 0.2 0.1 -Total Square (Post) (cm) 0.48 0.66 -Area of Debridement (cm) - Length 1.2 1.1 -Area of Debridement (cm) - Width 0.4 0.6 -Total Square (Area) (cm) 0.48 0.66 -Tunneling No No -Undermining/Tunneling No No -Circular Undermining No No -Wound/Ulcer Outcome Not Healed Not Healed -Ulcer Cleansing Rinsed/ Rinsed/ Irrigated with Irrigated with Saline Saline -Foul Odor after Cleansing No No -Bioengineered Tissue No No -Bleeding Controlled with Pressure Pressure -Offloading Yes No -Type of Offloading Camwalker -Treatment Response Procedure Procedure Tolerated Well Tolerated Well -Debridement - Subq, 1st 20sq cm Yes Yes Pain Scale: 0-10 Numeric Is Patient Pain Free? Yes Yes WC - Nurse 3 - General Ulcer D/C NN Start: 05/01/21 11:43 Freq: Status: Active Protocol: Activity Type Activity Date Activity User E-Sign Co-Sign Detail Recorded Client Recorded Date Recorded By Document 05/01/21 12:27 DL [id number] 05/01/21 12:28 DL Document 05/22/21 11:25 DL [id number] 05/22/21 11:25 DL 05/01/21 05/22/21 12:27 11:25 Wound Care Nurse 3 #2 l Grt Toe Plantar -Ulcer Cleansing Rinsed/ Rinsed/ Irrigated with Irrigated with Saline Saline -Foul Odor after Cleansing No No -Primary Dressing Applied Promogran Maryuri Matter -Other Dressing hydrogel -Primary Dressing Covered/Secured with Dry Gauze,Dry Dry Gauze & Gauze & Roll Roll Gauze, Gauze,Secured Secured with with Tape Tape -Promogran Maryuri Matter 1 Treatment Response Procedure Procedure Tolerated Well Tolerated Well Pain Scale: 0-10 Numeric Is Patient Pain Free? Yes Yes WC - Visit Discharge Discharge Condition Stable Stable Ambulatory Status Ambulatory Ambulatory Transportation Private Auto Private Auto Wound debrided: Hallux Laterality: Left Wound Grade/Stage: Bucio 3 Type of Debridement: Excisional debridement Anesthesia Used: 4% Lidocaine Solution Depth: in the subcutaneous layer Percentage of wound debrided: 100 Instrument Used: #15 blade Tissue Removed: includes fibrous, devitalized, biofilm, callus and slough tissue Severity: Fat Layer Exposed Amount of bleeding with debridement: Mild Bleeding Controlled with: Pressure Patient tolerated procedure: Patient tolerated procedure well Assessment/Plan Assessment/Plan (1) Non-pressure chronic ulcer of other part of left foot with fat layer exposed: CODE(S): L97.522 - Non-pressure chronic ulcer of other part of left foot with fat layer exposed (2) Cellulitis of toe of left foot: CODE(S): L03.032 - Cellulitis of left toe (3) Osteomyelitis: CODE(S): M86.9 - Osteomyelitis, unspecified QUALIFIERS: Osteomyelitis type: other chronic Osteomyelitis location: foot Laterality: left Qualified Code(s): M86.672 - Other chronic osteomyelitis, left ankle and foot (4) Type 2 diabetes mellitus with diabetic polyneuropathy: CODE(S): E11.42 - Type 2 diabetes mellitus with diabetic polyneuropathy QUALIFIERS: Diabetes mellitus intermediate card tender insulin use: unspecified intermediate card tender insulin use status Qualified Code(s): E11.42 - Type 2 diabetes mellitus with diabetic polyneuropathy (5) Obesity (BMI 30-39.9): CODE(S): E66.9 - Obesity, unspecified QUALIFIERS: Obesity type: due to excess calories Obesity classification: adult class 1 (BMI 30 - 34.9) Serious obesity comorbidity presence: with serious comorbidity Body mass index: BMI 33.0-33.9 Qualified Code(s): E66.09 - Other obesity due to excess calories; Z68.33 - Body mass index [BMI] 33.0-33.9, adult (6) Delayed wound healing: CODE(S): T14.8XXD - Other injury of unspecified body region, subsequent encounter (7) Amputation of right great toe: CODE(S): S98.111A - Complete traumatic amputation of right great toe, initial encounter PLAN: Patient seen and examined. Patient presents today ambulating in sandals again Ulceration site stable with less callus buildup. Patient relates that she was able to get into game moderator, Dr. Man, and she enjoyed her experience at that office. She relates that they had a long conversation about proper diet and decreasing carb, 1 to 5 g per meal or less. Patient has been able to start this process and relates that everything is going well. She relates she is also continuing with Noom for assistance in weight management. She has follow-up appointment with Dr. Man's nurse next week. Discussed possibility of revisiting HBO therapy option if she is able to maintain her blood sugars at a constant level that would permit her to dive. Blood flow studies 10/23/2020. Venous studies showed patent deep veins. Arterial studies showed Right OSVALDO 1.08 and TBI 0.99 and left OSVALDO 1.02 and TBI 1.07 with bilateral triphasic pulses noted. This should prove adequate to allow healing. After verbal consent was obtained sharp excisional debridement was carried out which was well tolerated with patient's neuropathy. Continue wound care daily with maryuri silver dressing followed by DSD. Clean foot with soap and water. Discussed importance of offloading with offloaded surgical shoe or cam boot with offloading pad. Patient did not tolerate an offloading by a total contact cast and does not wish to return to this option in the future. Patient has an offloaded CAM boot is also a valid offloading option for the patient. Patient has been noncompliant with offloading as she has frequently been showing up to her appointments in tennis shoes or sandals. Patient is also been missing her appointments. Discussed proper blood sugar control, diet, wound care, and offloading to better allow healing. All questions answered. Follow up 2 weeks. This note was generated with [employer] software. It may contain incorrect words, spelling, and punctuation that were not noted in checking the note before signing.
== END 2021-05-29 23:59 ==
LOC: WC 11:30
PROVIDERS: PCP Internal Medicine; Visit Provider Podiatrist Foot & Ankle Surgery
DX: E11.621 Type 2 diabetes mellitus with foot ulcer (principal); L97.522 Non-pressure chronic ulcer of other part of left foot with fat layer exposed; E11.42 Type 2 diabetes mellitus with diabetic polyneuropathy; E66.9 Obesity, unspecified; Z68.41 Body mass index [BMI] 40.0-44.9, adult; Z89.421 Acquired absence of other right toe(s)
CPT/HCPCS: 11042

== ENCOUNTER 2021-06-15 16:15 | Emergency (ER) | payer MEDICARE, MEDICAID, SELFPAY ==
[2021-06-15 16:17] VITALS: BP 143/85; PULSE 90; RESP 17; TEMP 36.2; O2SAT 94; BMI 41.5
[2021-06-15 16:19] VITALS: BP 143/85; PULSE 90; RESP 17; TEMP 36.2; O2SAT 94
--- NOTE | 2021-06-15 17:01 | EDS_ITS ---
HPI History of Present Illness Chief Complaint: Wound Narrative Narrative: Patient presents with chronic left great toe infection. She states that she sustained injury approximately a year ago where she sliced it open. She has been having problems on and off with infection. She last saw her multiplex operator a month ago or so, and did not have antibiotics at that time because it was looking improved. She has past medical history of diabetes and diabetic neuropathy so she does not have pain. She has had fever on and off over the last few days, and states that her left great toe is getting redder and more swollen. She denies any nausea or vomiting. No other symptoms. [facility] Medical History SEUN (acute kidney injury) Anxiety Chronic pain Chronic ulcer of right foot with fat layer exposed Depression Depression with anxiety Diabetes Diabetic foot ulcer Fibromyalgia Hyperlipidemia Hypothyroidism Meniere disease Obesity (BMI 30-39.9) Osteomyelitis Osteomyelitis of second toe of right foot Osteomyelitis of toe of right foot Presence of permanent central venous catheter Skin ulcer of left great toe with fat layer exposed Sleep apnea Smoker Type 2 diabetes mellitus with diabetic polyneuropathy Vascular catheter fitting or adjustment Vertigo Home Medications albuterol sulfate 1 - 2 puff INHALATION Q6H PRN PRN 08/30/19 [History Last Taken 11/08/20] atorvastatin 80 mg PO DAILY 08/30/19 [History Last Taken 04/18/21] duloxetine 60 mg PO DAILY@1800 03/21/20 [History Last Taken 04/18/21] multivitamin with minerals 1 tab PO DAILY 03/21/20 [History Last Taken 04/19/21] pregabalin 100 mg PO BID 03/21/20 [History Last Taken 04/19/21] ergocalciferol (vitamin D2) 50,000 unit PO WE 10/17/20 [History Last Taken 04/18/21] levothyroxine 50 mcg PO DAILY 11/11/20 [History Last Taken 04/19/21] pantoprazole 20 mg PO BID 11/11/20 [History Last Taken 04/19/21] hydroxyzine pamoate 100 mg PO QHS 12/08/20 [History Last Taken 04/18/21] losartan 50 mg PO DAILY 12/08/20 [History Last Taken 04/19/21] amlodipine 10 mg PO DAILY 12/20/20 [History Last Taken 04/19/21] trazodone 200 mg PO QHS 12/20/20 [History Last Taken 04/18/21] amoxicillin-pot clavulanate [Augmentin] 1 tab PO BID 10 Days #20 tab 04/20/21 [Rx Last Taken Unknown] doxycycline hyclate 100 mg PO BID #20 cap 04/20/21 [Rx Last Taken Unknown] insulin degludec 100 unit SQ DAILY #0 ml 04/20/21 [Rx Last Taken 04/19/21] magnesium hydroxide 400 mg PO DAILY #5 tab 04/20/21 [Rx Last Taken Unknown] potassium chloride 20 meq PO DAILY #5 tab 04/20/21 [Rx Last Taken Unknown] dulaglutide 1.5 mg/0.5 mL subcutaneous pen injector 1.5 mg SUBCUT ml 05/18/21 [History Last Taken Unknown] gabapentin 100 mg capsule 100 mg PO cap 05/18/21 [History Last Taken Unknown] insulin aspart U-100 100 unit/mL (3 mL) subcutaneous pen 40 unit SUBCUT TID #15 ml 05/18/21 [Rx Last Taken Unknown] levothyroxine 50 mcg tablet 50 mcg PO DAILY tab 05/18/21 [History Last Taken Unknown] amoxicillin-pot clavulanate [Augmentin] 1 tab PO BID #20 tab 06/15/21 [Rx Last Taken Unknown] Allergy/AdvReac Type Severity Reaction Status Date / Time clindamycin Allergy Hives Verified 06/15/21 16:16 erythromycin base Allergy Hives Verified 06/15/21 16:16 [From E-Mycin] vancomycin Allergy Hives Verified 06/15/21 16:16 Gadolinium-MRI Contrast AdvReac NEEDS Verified 06/15/21 16:16 Medium FOLLOW-UP [CONTRAST] Iodinated Contrast Media AdvReac NEEDS Verified 06/15/21 16:16 [CONTRASTS] FOLLOW-UP Surgical History History of appendectomy Social History Smoking Status: Current every day smoker tobacco type: cigarettes ROS ROS ED ROS Narrative Constitutional: Positive fever, no chills. HEENT: No sore throat. No neck pain. No loss of vision. No rhinorrhea. Cardiovascular: No chest pain. No palpitations. No pedal edema. Respiratory: No cough, no shortness of breath. Abdominal: No abdominal pain. No nausea. No vomiting. Genitourinary: No dysuria. No hematuria. Musculoskeletal: No myalgias. No arthralgias. Neurologic: No headaches. No dizziness. No lightheadedness. Positive diabetic neuropathy of bilateral lower extremities. Skin: No rash. Increased redness left great toe. Psychiatric: No depression. No anxiety. EXAM Physical Exam Narrative Exam Narrative: Afebrile. Vital signs noted. Nontoxic-appearing. HEENT: Normocephalic. Atraumatic. PERRL, EOMI. Neck soft and supple. No point tenderness or step off. Cardiovascular: Regular rate and rhythm. No murmurs, rubs, or gallops appreciated. Respiratory: No tachypnea. Lungs clear to auscultation bilaterally. Gastrointestinal: Abdomen soft, nontender, with normoactive bowel sounds. No rebound or guarding. Neurological: Awake. Alert. Nonfocal, nonlateralizing. Skin: No rash. Positive erythema left great toe circumferentially with dried skin. Positive open wound on plantar aspect. No purulent drainage. Palpable dorsalis pedis pulse. Musculoskeletal: No pedal edema. Full range of motion extremities. Const Vital Signs: 06/15/21 16:17 06/15/21 16:19 Temperature 97.2 F L 97.2 F L Temperature Source Temporal Temporal Pulse Rate 90 90 Respiratory Rate 17 17 Blood Pressure 143/85 H 143/85 H Blood Pressure Mean 104 104 Pulse Ox 94 94 Oxygen Delivery Method Room Air Room Air MDM MDM MDM Narrative Medical decision making narrative: Comprehensive work-up was pursued. I will take x-rays of the left great toe to look for signs of osteomyelitis. Baseline laboratories were also drawn. X-ray of the foot shows no evidence of osteomyelitis, no subcutaneous gas, no fracture. There is mild soft tissue swelling. She has normal white count of 6.2, hemoglobin stable at 13.3. Her electrolyte panel is grossly unremarkable except for glucose elevated to 23 consistent with her diabetes. Lactic acid is normal at 0.9. C-reactive protein is slightly elevated at 7.9, but ESR is normal at 27. At this point in time, I feel she be discharged safely home with follow-up. She was given her first Augmentin tablet here in the emergency department and a prescription written for the next 10 days. She will follow up with her multiplex operator on Friday. Return instructions to the emergency department were reviewed. Disposition is discharged home in stable condition. Lab Data Attestation: I reviewed the patient's lab results. Labs: Laboratory Results - last 24 hr 06/15/21 06/15/21 06/15/21 17:15 17:15 17:15 WBC 6.2 RBC 4.94 Hgb 13.3 Hct 41.8 MCV 84.6 MCH 26.9 L MCHC 31.8 L RDW Std Deviation 46.3 H RDW Coeff of Brea 15.2 H Plt Count 270 MPV 9.4 Immature Gran % (Auto) 0.600 Neut % (Auto) 59.2 Lymph % (Auto) 29.7 [place] % (Auto) 6.6 Eos % (Auto) 3.4 Baso % (Auto) 0.5 Absolute Neuts (auto) 3.7 Absolute Lymphs (auto) 1.83 Nucleated RBC % 0 ESR 27 Sodium 138 Potassium 4.0 Chloride 104 Carbon Dioxide 30.0 Anion Gap 4 L BUN 11 Creatinine 0.81 Estim Creat Clear Calc 72.55 Est GFR (MDRD) Af Amer 97 Est GFR (MDRD) Non-Af 80 BUN/Creatinine Ratio 13.6 Glucose 223 H Lactic Acid 0.9 Calcium 8.7 Total Bilirubin 0.30 AST 8 L ALT 18 Alkaline Phosphatase 115 C-React Prot Ext Range 7.63 H Total Protein 7.2 Albumin 2.9 L Globulin 4.3 H Albumin/Globulin Ratio 0.7 L Radiography Diagnostic Testing: Radiology Impression Toe X-Ray 06/15/21 17:31 IMPRESSION: 1. Mild soft tissue swelling is present around the distal phalanges of the great toe. No visualized subcutaneous gas. No evidence of osteomyelitis no fracture seen. Electronically Signed: Diogenes Serrano MD at 18:38 EDT , Service support , Discharge Plan Triage Chief Complaint: Wound ED Provider: Moe Jaramillo Dx/Rx/DC Orders Clinical Impression: Cellulitis, Diabetic foot infection Instructions: ED Cellulitis, ED Diabetic Foot Care, ED Wound Check (Infection) Prescriptions: New amoxicillin-pot clavulanate [Augmentin] 875-125 mg tablet 1 tab PO BID Qty: 20 RF: 0 No Action levothyroxine 50 mcg tablet 50 mcg PO DAILY RF: 0 gabapentin 100 mg capsule 100 mg PO RF: 0 Trulicity 1.5 mg/0.5 mL pen injector 1.5 mg subcut RF: 0 insulin aspart U-100 [Novolog Flexpen U-100 Insulin] 100 unit/mL (3 mL) insulin pen 40 unit subcut TID Qty: 15 RF: 0 atorvastatin 80 MG tablet 80 mg PO DAILY RF: 0 albuterol sulfate 1 INHALER inhaler 1 - 2 puff inhalation Q6H PRN PRN (Reason: Sob &/Or Wheezing) RF: 0 multivitamin with minerals 1 EACH tablet 1 tab PO DAILY RF: 0 duloxetine 60 MG capsule,delayed release(DR/EC) 60 mg PO DAILY@1800 RF: 0 pregabalin 100 MG capsule 100 mg PO BID RF: 0 ergocalciferol (vitamin D2) 50,000 UNIT capsule 50,000 unit PO WE RF: 0 levothyroxine 25 MCG tablet 50 mcg PO DAILY RF: 0 pantoprazole 20 MG tablet 20 mg PO BID RF: 0 losartan 50 MG tablet 50 mg PO DAILY RF: 0 hydroxyzine pamoate 100 MG capsule 100 mg PO QHS RF: 0 trazodone 100 MG tablet 200 mg PO QHS RF: 0 amlodipine 10 MG tablet 10 mg PO DAILY RF: 0 potassium chloride 20 mEq tablet extended release 20 meq PO DAILY Qty: 5 RF: 0 magnesium hydroxide 400 mg (170 mg magnesium) tablet,chewable 400 mg PO DAILY Qty: 5 RF: 0 insulin degludec 100 UNIT/ML insulin pen 100 unit SQ DAILY Qty: 0 RF: 0 doxycycline hyclate 100 mg capsule 100 mg PO BID Qty: 20 RF: 0 amoxicillin-pot clavulanate [Augmentin] 875-125 mg tablet 1 tab PO BID 10 Days Qty: 20 RF: 0 Primary Care Provider: Shirley Garcia Referrals: Shirley Garcia MD [Primary Care Provider] - Disposition Disposition: Home, Self Care
--- NOTE | 2021-06-15 17:31 | RAD_ITS ---
STUDY: X-RAY LEFT FOOT, GREAT TOE REASON FOR EXAM: Female, 50 years old. pt states left great toe redness and edema, has had wound for 1.5 years Cellulitis TECHNIQUE: 3 view(s) of the toe were obtained. COMPARISON: Left foot x-ray dated April 19, 2021 FINDINGS: Mild soft tissue swelling is present around the distal phalanges of the great toe. No visualized subcutaneous gas. No evidence of osteomyelitis no fracture seen. Normal visualized metatarsus. Normal metatarsophalangeal (M.T.P) joint. Normal interphalangeal joints. Normal phalanges and interphalangeal joints. Portions of the second and third digits included in the [id number] are normal. RAD/Toe(s) Min 2 Views IMPRESSION: 1. Mild soft tissue swelling is present around the distal phalanges of the great toe. No visualized subcutaneous gas. No evidence of osteomyelitis no fracture seen. Electronically Signed: Diogenes Serrano MD at 18:38 EDT , Service support ,
[2021-06-15 17:38] LABS: Absolute Lymphocyte Count 1.83 X10^3/uL (0.83-4.51); Absolute Neutrophil Count 3.7 X10^3/uL (2.0-7.7); Basophil# 0.03 X10^3/uL; Basophil% 0.5 % (0-1); Eosinophil# 0.21 X10^3/uL; Eosinophils% 3.4 % (0-5); Hematocrit 41.8 % (37-47); Hemoglobin 13.3 g/dL (12.0-15.0); Lymphocyte # 1.83 X10^3/ul (0.83-4.51); Lymphocyte % 29.7 % (19-41); Mean Corp Hgb Conc 31.8 g/dL (32-36); Mean Corpuscular Hgb 26.9 pg (27.0-32.0); Mean Corpuscular Volume 84.6 fL (81-99); Mean Platelet Vol. 9.4 fl (6.2-12.0); Monocyte# 0.41 X10^3/uL; Monocyte% 6.6 % (0-10); NRBC Flagged by Analyzer 0 % (0-5); Neutrophil # 3.65 X10^3/uL (2.7-7.7); Neutrophil % 59.2 % (47-70); Platelet Count 270 K/mm3 (150-450); RBC Distribution Width CV 15.2 % (11.6-14.6); RBC Distribution Width SD 46.3 fl (35.1-43.9); Red Blood Count 4.94 M/mm3 (4.2-5.4); White Blood Count 6.2 K/mm3 (4.4-11.0)
[2021-06-15 17:50] LABS: ALB/GLOB Ratio 0.7 RATIO (0.9-2.4); AST(SGOT) 8 U/L (15-37); Alanine Aminotransfer ALT/SGPT 18 U/L (13-56); Albumin, Serum 2.9 g/dL (3.2-5.0); Alkaline Phosphatase 115 U/L (45-117); Anion Gap 4 (5-15); BUN 11 mg/dL (7-18); BUN/Creat Ratio 13.6 RATIO (10-20); CRP 7.63 mg/L (0.0-3.0); Calcium,Total 8.7 mg/dL (8.5-10.1); Chloride 104 mmol/L (98-107); Creatinine, Serum 0.81 mg/dL (0.55-1.02); EST Glomerular Filtration Rate 80 mL/min (>60); Est Glom Filt Rate - Afr Amer 97 mL/min (>60); Estimated Creatinine Clearance 72.55 ml/min; Globulin 4.3 g/dL (2.2-4.2); Glucose 223 mg/dL (74-106); Protein, Total 7.2 g/dL (6.4-8.2); Sodium Level 138 mmol/L (136-145)
[2021-06-15 18:00] LABS: Lactic Acid 0.9 mmol/L (0.4-1.9)
[2021-06-15 18:02] LABS: Erythrocyte Sedimentation Rate 27 mm/hr (0-30)
[2021-06-15] MEDS: Amox/Clavulanate 875 MG Tablet PO (20:18)
== END 2021-06-15 20:18 | disposition home or self-care (01) ==
PROVIDERS: Emergency Provider Emergency Medicine; PCP Internal Medicine
DX: L03.032 Cellulitis of left toe (principal); E11.40 Type 2 diabetes mellitus with diabetic neuropathy, unspecified; E03.9 Hypothyroidism, unspecified; E78.5 Hyperlipidemia, unspecified; F41.9 Anxiety disorder, unspecified; G47.30 Sleep apnea, unspecified; G89.29 Other chronic pain; H81.09 Meniere's disease, unspecified ear; F17.210 Nicotine dependence, cigarettes, uncomplicated; Z79.4 Long term (current) use of insulin
CPT/HCPCS: 73660; 80053; 83605; 85025; 85652; 86140; 99284; A4216

== ENCOUNTER 2021-06-28 16:07 | Emergency (ER) | payer MEDICARE, MEDICAID, SELFPAY ==
[2021-06-28 16:07] VITALS: BP 183/104; PULSE 86; RESP 14; TEMP 37.1; O2SAT 96; BMI 41.1
--- NOTE | 2021-06-28 16:28 | US_ITS ---
STUDY: ULTRASOUND OF THE FEMALE PELVIS - COMPLETE REASON FOR EXAM: Female, 50 years old. left pelvic pain TECHNIQUE: Endovaginal. Transvaginal US was obtained to better visualized the ovaries. COMPARISON: None. FINDINGS: The uterus is anteverted and is in a midline position. The uterus measures 9.5 x 5.9 cm. There is a Nabothian cyst of the cervix. The endometrium measures 7 mm in thickness, and is hyperechoic. There is no demonstrated endometrial mass. There is no demonstrated myometrial mass. I.U.D. - The patient does not have an I.U.D. The right ovary is visualized. The right ovary measures 3.5 x 2.3 cm. There is no right ovarian cyst or ovarian mass. There is no visualized right adnexal mass or complex lesion. There is normal arterial and normal venous vascularity. The left ovary is visualized. The left ovary measures 3.5 x 3.5 cm. Cyst measures 30 mm. There is no visualized left adnexal mass or complex lesion. There is normal arterial and normal venous vascularity. There is no fluid in the cul-de-sac. US/Transvaginal Non- IMPRESSION: There is a Nabothian cyst of the cervix. Simple appearing 3 cm cyst of the left ovary. Electronically Signed: Aleksandr Dominguez MD at 18:46 EDT , Service support ,
--- NOTE | 2021-06-28 16:33 | EDS_ITS ---
HPI History of Present Illness Chief Complaint: Lower Extremity Injury Informant: patient Narrative Narrative: Patient here multiple complaints. Reporting nontraumatic left hip pain progressing over the past month however worsened over the past day. In addition yesterday states increasing pain in the pelvis pressure. Denies history ovarian cysts. She states she has had on and off symptoms before relieved with [id number] medications. Symptoms more severe since yesterday. Still has her ovaries. Patient brought in by private vehicle. Last menstrual period 2 weeks ago. Normal bowel movements. Nonbloody stools. No fevers. No chest pains. No cough. No nausea or vomiting. Reports pain is severe. [facility] History SEUN (acute kidney injury) Anxiety Chronic pain Chronic ulcer of right foot with fat layer exposed Depression Depression with anxiety Diabetes Diabetic foot ulcer Fibromyalgia Hyperlipidemia Hypothyroidism Meniere disease Obesity (BMI 30-39.9) Osteomyelitis Osteomyelitis of second toe of right foot Osteomyelitis of toe of right foot Presence of permanent central venous catheter Skin ulcer of left great toe with fat layer exposed Sleep apnea Smoker Type 2 diabetes mellitus with diabetic polyneuropathy Vascular catheter fitting or adjustment Vertigo Home Medications albuterol sulfate 1 - 2 puff INHALATION Q6H PRN PRN 08/30/19 [History Last Taken 11/08/20] atorvastatin 80 mg PO DAILY 08/30/19 [History Last Taken 04/18/21] duloxetine 60 mg PO DAILY@1800 03/21/20 [History Last Taken 04/18/21] multivitamin with minerals 1 tab PO DAILY 03/21/20 [History Last Taken 04/19/21] pregabalin 100 mg PO BID 03/21/20 [History Last Taken 04/19/21] ergocalciferol (vitamin D2) 50,000 unit PO WE 10/17/20 [History Last Taken 04/18/21] levothyroxine 50 mcg PO DAILY 11/11/20 [History Last Taken 04/19/21] pantoprazole 20 mg PO BID 11/11/20 [History Last Taken 04/19/21] hydroxyzine pamoate 100 mg PO QHS 12/08/20 [History Last Taken 04/18/21] losartan 50 mg PO DAILY 12/08/20 [History Last Taken 04/19/21] amlodipine 10 mg PO DAILY 12/20/20 [History Last Taken 04/19/21] trazodone 200 mg PO QHS 12/20/20 [History Last Taken 04/18/21] amoxicillin-pot clavulanate [Augmentin] 1 tab PO BID 10 Days #20 tab 04/20/21 [Rx Last Taken Unknown] doxycycline hyclate 100 mg PO BID #20 cap 04/20/21 [Rx Last Taken Unknown] insulin degludec 100 unit SQ DAILY #0 ml 04/20/21 [Rx Last Taken 04/19/21] magnesium hydroxide 400 mg PO DAILY #5 tab 04/20/21 [Rx Last Taken Unknown] potassium chloride 20 meq PO DAILY #5 tab 04/20/21 [Rx Last Taken Unknown] gabapentin 100 mg capsule 100 mg PO cap 05/18/21 [History Last Taken Unknown] insulin aspart U-100 100 unit/mL (3 mL) subcutaneous pen 40 unit SUBCUT TID #15 ml 05/18/21 [Rx Last Taken Unknown] levothyroxine 50 mcg tablet 50 mcg PO DAILY tab 05/18/21 [History Last Taken Unknown] amoxicillin-pot clavulanate [Augmentin] 1 tab PO BID #20 tab 06/15/21 [Rx Last Taken Unknown] dulaglutide 0.75 mg/0.5 mL subcutaneous pen injector 0.75 mg SUBCUT QWEEK #2 ml 06/19/21 [Rx Last Taken Unknown] naproxen [Naprosyn] 500 mg PO BID PRN #30 tab 06/28/21 [Rx Last Taken Unknown] Allergy/AdvReac Type Severity Reaction Status Date / Time clindamycin Allergy Hives Verified 06/28/21 16:11 erythromycin base Allergy Hives Verified 06/28/21 16:11 [From E-Mycin] vancomycin Allergy Hives Verified 06/28/21 16:11 Gadolinium-MRI Contrast AdvReac NEEDS Verified 06/28/21 16:11 Medium FOLLOW-UP [CONTRAST] Iodinated Contrast Media AdvReac NEEDS Verified 06/28/21 16:11 [CONTRASTS] FOLLOW-UP Surgical History History of appendectomy Social History Smoking Status: Current every day smoker tobacco type: cigarettes ROS ROS ED Constitutional Constitutional ED: Denies chills, fever(s) or sweats Eyes Eyes: Denies change in vision ENT ENT ED: Denies dysphagia or sore throat Cardiovascular Cardiovascular: Denies chest pain, leg edema, palpitations or racing heartbeat Respiratory/Chest Respiratory/Chest: Denies cough, dyspnea or dyspnea on exertion Gastrointestinal Gastrointestinal: Reports abdominal pain; Denies diarrhea, nausea or vomiting Genitourinary Genitourinary ED: Denies dysuria, hematuria or urinary frequency Musculoskeletal Musculoskeletal: Reports arthralgias; Denies back pain, extremity pain or neck pain Integumentary Denies rash or wounds Neurologic Neurologic: Denies headache(s), paresthesias or weakness EXAM Physical Exam Const Vital Signs: 06/28/21 16:07 06/28/21 18:13 06/28/21 19:19 Temperature 98.8 F Temperature Source Temporal Pulse Rate 86 71 Respiratory Rate 14 16 16 Blood Pressure 183/104 H 137/79 H Blood Pressure Mean 130 98 Pulse Ox 96 100 Oxygen Delivery Method Room Air Room Air mod distress Positive well nourished and well developed General Appearance ED: well developed HEENT Reports moist mucous membranes normocephalic and atraumatic Eyes PERRL, EOMs intact bilaterally and conjunctivae normal General Eye ED: Yes normal appearance of both eyes Neck no lymphadenopathy and supple General: Negative for tenderness Chest Wall Chest: Negative for tenderness Resp normal respiratory effort and normal air movement Effort and Inspection: symmetric chest movement; Negative for respiratory distress Cardio regular rate, regular rhythm and no murmurs Peripheral Pulses: pulses 2+ throughout GI GI Narrative: TTP left pelvis Palpation: Negative for guarding or rebound tenderness present Back/Spine no CVA tenderness and no thoracic nor lumbar tenderness Extremity Extremity Narrative: Pain with movement of left hip. no rash. no shortening or rotation. Pulses intact distally. General Extremety ED: Negative for edema or tenderness General Extremity: Negative for edema Neuro oriented x3 and no sensory deficits noted Sensorium / Orientation: awake and alert Skin no rashes or lesions noted and no wounds MDM MDM MDM Narrative Medical decision making narrative: Patient multiple complaints, left hip pain along with left pelvic pain. Is tender on exam is uncomfortable. She is given morphine, work-up initiated. Labs are stable white count 7.9 hCG negative. Left hip x-ray negative. Pelvic ultrasound obtained notes a 3 cm left ovarian cyst at simple there is positive flow. Patient ambulated into the department witnessed by nursing. Discussed with patient will place on NSAIDs at this time for treatment for hip pain and her ovarian cyst. She seen gynecology through [facility] therefore information was given to follow-up as an outpatient. All questions were answered. Lab Data Attestation: I reviewed the patient's lab results. Labs: Laboratory Results - last 24 hr 06/28/21 06/28/21 06/28/21 17:09 17:09 17:09 WBC 7.9 RBC 4.65 Hgb 12.4 Hct 39.4 MCV 84.7 MCH 26.7 L MCHC 31.5 L RDW Std Deviation 47.7 H RDW Coeff of [place] 15.3 H Plt Count 338 MPV 9.5 Immature Gran % (Auto) 0.300 Neut % (Auto) 54.8 Lymph % (Auto) 32.7 [place] % (Auto) 8.0 Eos % (Auto) 3.3 Baso % (Auto) 0.9 Absolute Neuts (auto) 4.3 Absolute Lymphs (auto) 2.57 Nucleated RBC % 0 Sodium 137 Potassium 3.9 Chloride 103 Carbon Dioxide 28.0 Anion Gap 6 BUN 12 Creatinine 0.72 Estim Creat Clear Calc 85.05 Est GFR (MDRD) Af Amer 110 Est GFR (MDRD) Non-Af 91 BUN/Creatinine Ratio 16.6 Glucose 123 H Calcium 9.2 Serum , Qual NEGATIVE Radiography Chest X-Ray - ED: Read by ED Physician and Read by Radiologist Diagnostic Testing: Radiology Impression Transvaginal US 06/28/21 16:28 IMPRESSION: There is a Nabothian cyst of the cervix. Simple appearing 3 cm cyst of the left ovary. Electronically Signed: Aleksandr Dominguez MD at 18:46 EDT , Service support , Hip/Pelvis X-Ray 06/28/21 17:55 IMPRESSION: Normal x-ray examination of the pelvis and hip. Electronically Signed: Aleksandr Dominguez MD at 18:37 EDT , Service support , Discharge Plan Triage Chief Complaint: Lower Extremity Injury ED Provider: Gabriel Maria Dx/Rx/DC Orders Clinical Impression: Cyst of left ovary, Hip pain, left Instructions: How Your Hip Works, ED Ovarian Cyst Prescriptions: New naproxen [Naprosyn] 500 mg tablet 500 mg PO BID PRN (Reason: pain) Qty: 30 RF: 0 No Action levothyroxine 50 mcg tablet 50 mcg PO DAILY RF: 0 gabapentin 100 mg capsule 100 mg PO RF: 0 insulin aspart U-100 [Novolog Flexpen U-100 Insulin] 100 unit/mL (3 mL) insulin pen 40 unit subcut TID Qty: 15 RF: 0 Trulicity 0.75 mg/0.5 mL pen injector 0.75 mg subcut QWEEK Qty: 2 RF: 6 atorvastatin 80 MG tablet 80 mg PO DAILY RF: 0 albuterol sulfate 1 INHALER inhaler 1 - 2 puff inhalation Q6H PRN PRN (Reason: Sob &/Or Wheezing) RF: 0 multivitamin with minerals 1 EACH tablet 1 tab PO DAILY RF: 0 duloxetine 60 MG capsule,delayed release(DR/EC) 60 mg PO DAILY@1800 RF: 0 pregabalin 100 MG capsule 100 mg PO BID RF: 0 ergocalciferol (vitamin D2) 50,000 UNIT capsule 50,000 unit PO WE RF: 0 levothyroxine 25 MCG tablet 50 mcg PO DAILY RF: 0 pantoprazole 20 MG tablet 20 mg PO BID RF: 0 losartan 50 MG tablet 50 mg PO DAILY RF: 0 hydroxyzine pamoate 100 MG capsule 100 mg PO QHS RF: 0 trazodone 100 MG tablet 200 mg PO QHS RF: 0 amlodipine 10 MG tablet 10 mg PO DAILY RF: 0 potassium chloride 20 mEq tablet extended release 20 meq PO DAILY Qty: 5 RF: 0 magnesium hydroxide 400 mg (170 mg magnesium) tablet,chewable 400 mg PO DAILY Qty: 5 RF: 0 insulin degludec 100 UNIT/ML insulin pen 100 unit SQ DAILY Qty: 0 RF: 0 doxycycline hyclate 100 mg capsule 100 mg PO BID Qty: 20 RF: 0 amoxicillin-pot clavulanate [Augmentin] 875-125 mg tablet 1 tab PO BID 10 Days Qty: 20 RF: 0 amoxicillin-pot clavulanate [Augmentin] 875-125 mg tablet 1 tab PO BID Qty: 20 RF: 0 Primary Care Provider: Shirley Garcia Referrals: Shirley Garcia MD [Primary Care Provider] - 3-5 Days Gabrielle Rivera MD [STAFF PHYSICIAN] - 3-5 Days Activity Restrictions/Additional Instructions: 3 cm left ovarian cyst noted. Follow-up with [facility] Counselor. Left hip pain, negative x- rays. Follow-up with your doctor. Disposition Disposition: Home, Self Care Discharge Date/Time: 06/28/21 19:19
[2021-06-28] MEDS: 0.9% Normal Saline 1,000 ML 150 ML IV (16:39)
[2021-06-28] MEDS: Morphine 4 MG/ML Syringe IV (16:39)
[2021-06-28] MEDS: Ondansetron 4 MG/2 ML Vial IV (16:40)
--- NOTE | 2021-06-28 16:47 | ED.RN ---
Left hip and pelvic pain for the last two months. Oliver any injury. More painful today. Ambulation and movement makes pain worse. Laying down makes hip feel better.
[2021-06-28 17:25] LABS: Absolute Lymphocyte Count 2.57 X10^3/uL (0.83-4.51); Absolute Neutrophil Count 4.3 X10^3/uL (2.0-7.7); Basophil# 0.07 X10^3/uL; Basophil% 0.9 % (0-1); Eosinophil# 0.26 X10^3/uL; Eosinophils% 3.3 % (0-5); Hematocrit 39.4 % (37-47); Hemoglobin 12.4 g/dL (12.0-15.0); Lymphocyte # 2.57 X10^3/ul (0.83-4.51); Lymphocyte % 32.7 % (19-41); Mean Corp Hgb Conc 31.5 g/dL (32-36); Mean Corpuscular Hgb 26.7 pg (27.0-32.0); Mean Corpuscular Volume 84.7 fL (81-99); Mean Platelet Vol. 9.5 fl (6.2-12.0); Monocyte# 0.63 X10^3/uL; NRBC Flagged by Analyzer 0 % (0-5); Neutrophil # 4.31 X10^3/uL (2.7-7.7); Neutrophil % 54.8 % (47-70); Platelet Count 338 K/mm3 (150-450); RBC Distribution Width CV 15.3 % (11.6-14.6); RBC Distribution Width SD 47.7 fl (35.1-43.9); Red Blood Count 4.65 M/mm3 (4.2-5.4); White Blood Count 7.9 K/mm3 (4.4-11.0)
[2021-06-28 17:49] LABS: Anion Gap 6 (5-15); BUN 12 mg/dL (7-18); BUN/Creat Ratio 16.6 RATIO (10-20); Calcium,Total 9.2 mg/dL (8.5-10.1); Chloride 103 mmol/L (98-107); Creatinine, Serum 0.72 mg/dL (0.55-1.02); EST Glomerular Filtration Rate 91 mL/min (>60); Est Glom Filt Rate - Afr Amer 110 mL/min (>60); Estimated Creatinine Clearance 85.05 ml/min; Glucose 123 mg/dL (74-106); Potassium 3.9 mmol/L (3.5-5.1); Sodium Level 137 mmol/L (136-145)
--- NOTE | 2021-06-28 17:55 | RAD_ITS ---
STUDY: X-RAY - PELVIS AND LEFT HIP REASON FOR EXAM: Female, 50 years old. Pain TECHNIQUE: XR Hip Unilateral with Pelvis when performed; 2-3 Views COMPARISON: None. FINDINGS: There is a non-specific bowel gas pattern. Normal visualized soft tissue structures. There are bilateral tubal ligation clips. Normal bilateral iliac wings, sacroiliac joints and visualized sacrum. Normal bilateral superior and inferior pubic rami. Normal pubic symphysis. Normal bilateral ischial tuberosities. Normal visualized femoral head. Normal acetabulum. Normal hip joint. RAD/HIP, UNI W/ Pelvis 2-3 Views IMPRESSION: Normal x-ray examination of the pelvis and hip. Electronically Signed: Aleksandr Dominguez MD at 18:37 EDT , Service support ,
[2021-06-28 17:56] LABS: Internal QC Validated? YES +Cl - CLEAR BKGD; Pregnancy, Serum, hCG Quali. NEGATIVE Negative
[2021-06-28 18:13] VITALS: BP 137/79; PULSE 71; RESP 16; O2SAT 100
[2021-06-28 19:19] VITALS: RESP 16
== END 2021-06-28 19:19 | disposition home or self-care (01) ==
PROVIDERS: Emergency Provider Emergency Medicine; PCP Internal Medicine
DX: N83.202 Unspecified ovarian cyst, left side (principal); M25.552 Pain in left hip; R10.2 Pelvic and perineal pain; E03.9 Hypothyroidism, unspecified; E78.5 Hyperlipidemia, unspecified; F41.9 Anxiety disorder, unspecified; N88.8 Other specified noninflammatory disorders of cervix uteri; G47.30 Sleep apnea, unspecified; G89.29 Other chronic pain; E11.621 Type 2 diabetes mellitus with foot ulcer; L97.512 Non-pressure chronic ulcer of other part of right foot with fat layer exposed; L97.522 Non-pressure chronic ulcer of other part of left foot with fat layer exposed; E11.42 Type 2 diabetes mellitus with diabetic polyneuropathy; F17.210 Nicotine dependence, cigarettes, uncomplicated; E66.9 Obesity, unspecified; H81.09 Meniere's disease, unspecified ear; Z68.30 Body mass index [BMI] 30.0-30.9, adult; Z79.1 Long term (current) use of non-steroidal anti-inflammatories (NSAID); Z79.4 Long term (current) use of insulin
CPT/HCPCS: 73502; 76830; 80048; 84703; 85025; 93976; 96361; 96374; 96375; 99284; J7030; A4216; J2405

== ENCOUNTER 2021-08-16 14:49 | Outpatient (RCR) | payer MEDICARE, MEDICAID, SELFPAY ==
[2021-05-30 00:31] VITALS: BP 157/76; PULSE 88; RESP 22; TEMP 37.1; BMI 40.9
[2021-08-16 15:01] VITALS: BMI 40.9
--- NOTE | 2021-08-16 16:38 | HP.PCM_ITS ---
History of Present Illness Date of Service: 08/16/21 Chief Complaint: Left hallux wound History of Wound: Patient is a 50 year old female who presents with chronic nonhealing plantar left hallux ulceration. Patient has had multiple previous infections to this wound. Patient has had both cellulitis and osteomyelitis noted to this wound. She has been hospitalized for this on multiple occasions. She had previously been following up with infectious disease with Dr. Lorenzo for management. 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 She did follow up with Dr. Guillen at the wound healing center prior and apparently discussed potential amputation. Patient states that she has been fed up with having this wound for over a year and a half now and would like to consider amputation after the holidays and would like referred to podiatry for surgery. The patient does have a history of being noncompliant. Today in office she is not utilizing her offloading shoe for her ulcer and she is actually wearing cowboy boots with a very narrow toe space. She was previously set up for HBO therapy but missed those appointments earlier in the year. She does note that she is following up with endocrinology Dr. Man on getting her blood sugars under control. Her most recent A1c was 10.3. She currently has been utilizing silver cell and covering with gauze. She denies any systemic or localized signs of infection at this time. Past medical, family, and social history reviewed and not pertinent to the current visit and all other systems reviewed and negative with exception of those listed above. [facility] Medical History SEUN (acute kidney injury) Anxiety Chronic pain Chronic ulcer of right foot with fat layer exposed Depression Depression with anxiety Diabetes Diabetic foot ulcer Fibromyalgia Hyperlipidemia Hypothyroidism Meniere disease Obesity (BMI 30-39.9) Osteomyelitis Osteomyelitis of second toe of right foot Osteomyelitis of toe of right foot Presence of permanent central venous catheter Skin ulcer of left great toe with fat layer exposed Sleep apnea Smoker Type 2 diabetes mellitus with diabetic polyneuropathy Vascular catheter fitting or adjustment Vertigo Home Medications albuterol sulfate 1 - 2 puff INHALATION Q6H PRN PRN 08/30/19 [History Last Taken 11/08/20] atorvastatin 80 mg PO DAILY 08/30/19 [History Last Taken 04/18/21] duloxetine 60 mg PO DAILY@1800 03/21/20 [History Last Taken 04/18/21] multivitamin with minerals 1 tab PO DAILY 03/21/20 [History Last Taken 04/19/21] pregabalin 100 mg PO BID 03/21/20 [History Last Taken 04/19/21] ergocalciferol (vitamin D2) 50,000 unit PO WE 10/17/20 [History Last Taken 04/18/21] levothyroxine 50 mcg PO DAILY 11/11/20 [History Last Taken 04/19/21] pantoprazole 20 mg PO BID 11/11/20 [History Last Taken 04/19/21] hydroxyzine pamoate 100 mg PO QHS 12/08/20 [History Last Taken 04/18/21] losartan 50 mg PO DAILY 12/08/20 [History Last Taken 04/19/21] amlodipine 10 mg PO DAILY 12/20/20 [History Last Taken 04/19/21] trazodone 200 mg PO QHS 12/20/20 [History Last Taken 04/18/21] magnesium hydroxide 400 mg PO DAILY #5 tab 04/20/21 [Rx Last Taken Unknown] potassium chloride 20 meq PO DAILY #5 tab 04/20/21 [Rx Last Taken Unknown] gabapentin 100 mg capsule 100 mg PO cap 05/18/21 [History Last Taken Unknown] levothyroxine 50 mcg tablet 50 mcg PO DAILY tab 05/18/21 [History Last Taken Unknown] dulaglutide 0.75 mg/0.5 mL subcutaneous pen injector 0.75 mg SUBCUT QWEEK #2 ml 06/19/21 [Rx Last Taken Unknown] naproxen [Naprosyn] 500 mg PO BID PRN #30 tab 06/28/21 [Rx Last Taken Unknown] FreeStyle Lite Strips #360 ea NS 08/03/21 [Rx Last Taken Unknown] Novolog Flexpen U-100 Insulin 100 unit/mL (3 mL) subcutaneous 40 unit SUBCUT TID #108 ml NS 08/03/21 [Rx Last Taken Unknown] cephalexin 500 mg capsule 500 mg PO Q12H #14 cap 08/03/21 [Rx Last Taken Unknown] glimepiride 4 mg tablet 4 mg PO BID #180 tab 08/03/21 [Rx Last Taken Unknown] pen needle, diabetic 32 gauge x #450 ea 08/03/21 [Rx Last Taken Unknown] insulin glargine 100 unit/mL (3 mL) subcutaneous pen 100 unit SUBCUT QHS #90 ml 08/06/21 [Rx Last Taken Unknown] FreeStyle Gómez 14 Day Sensor #2 ea NS 08/13/21 [Rx Last Taken Unknown] Allergy/AdvReac Type Severity Reaction Status Date / Time clindamycin Allergy Hives Verified 08/03/21 11:19 erythromycin base Allergy Hives Verified 08/03/21 11:19 [From E-Mycin] vancomycin Allergy Hives Verified 08/03/21 11:19 Gadolinium-MRI Contrast AdvReac NEEDS Verified 08/03/21 11:19 Medium FOLLOW-UP [CONTRAST] Iodinated Contrast Media AdvReac NEEDS Verified 08/03/21 11:19 [CONTRASTS] FOLLOW-UP Surgical History History of appendectomy Social History Smoking Status: Current every day smoker tobacco type: cigarettes ROS ROS Narrative Negative x10 systems with exception of those listed above Vital Signs Vital Signs Vital Signs: Weight Body Mass Index (BMI) 40.9 Physical Exam Narrative Const alert and no apparent distress General Appearance: cooperative and comfortable Lymph Lymphatic: no lymphedema noted Resp normal respiratory effort Effort and Inspection: able to speak in complete sentences Extremity normal capillary refill, no calf tenderness and no pedal edema General Extremity: no tenderness to palpation of joints or extremities; Negative for clubbing or cyanosis Peripheral Pulses: posterior tibial pulses present left 2+ and dorsalis pedis pulses present left 2+ Skin General Skin Exam: Negative for ecchymosis, eschar, pallor or dermatitis Rashes: no rashes Wounds: wounds noted Wound Narrative: ulcers noted to left medial plantar hallux. No malodor, probing to bone, fluctuation, crepitus. She does have chronic venous changes to bilateral lower extremities with out any edema. Mild surrounding callus tissue noted. Granular base. no drainage noted. No pain. No purulent drainage 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 Neuro Gait (Neuro): normal gait Sensory Exam: extremities light-touch: decreased Motor Exam: strength 5/5 throughout Psych Appearance: appropriate Debridement Note Debridement Note Wound debrided: Left plantar hallux Laterality: Left Type of Debridement: Excisional debridement Anesthesia Used: 5% Lidocaine Gel Depth: Down to and including healthy tissue and in the subcutaneous layer Percentage of wound debrided: 100 Instrument Used: 5mm curette Tissue Removed: Slough and devitalized tissue Severity: Fat Layer Exposed Amount of bleeding with debridement: Mild Bleeding Controlled with: Pressure Patient tolerated procedure: Patient tolerated procedure well Post-Debridement Measurements and Additional Note: Post-Debridement Measurements/Treatment WC - Nurse 1 - General Ulcer Assessment Start: 08/16/21 15:01 Freq: Status: Active Protocol: NANCY Activity Type Activity Date Activity User E-Sign Co-Sign Detail Recorded Client Recorded Date Recorded By Document 08/16/21 15:01 ML [id number] 08/16/21 15:20 ML 08/16/21 15:01 - Today's Visit Information Type of service Initial Visit Arrival Mode Ambulatory Transfer Assistance None Height and Weight Body Mass Index (BMI) 40.9 BMI Classification Obese EVIN - Nurse 1 - General Ulcer Measurement Start: 08/16/21 15:01 Freq: Status: Active Protocol: Activity Type Activity Date Activity User E-Sign Co-Sign Detail Recorded Client Recorded Date Recorded By Document 08/16/21 15:01 ML [id number] 08/16/21 15:20 ML 08/16/21 15:01 Wound Center Nurse 1 #3 left great toe -Current Size (cm) - Length 1.3 -Current Size (cm) - Width 0.8 -Current Size (cm) - Depth 0.3 -Total Square Cm 1.04 -Undermining/Tunneling Yes -Undermining/Tunneling Starts (O'clock 1 ) -Undermining/Tunneling Ends (O'clock) 5 -Maximum Distance (cm) 0.5 -Exudate Amt Small -Exudate Type Serous -Wound Margin Thickened & Rolled Under -Granulation Amt Large (67-100%) -Slough/Fibrin Yes -Necrosis Amt Medium (34-66%) -Necrotic Tissue Type Adherent Slough -Texture (Sherin-wound Skin Appearance) Assessed -Moisture (Sherin-wound Skin Appearance) Assessed -Color (Sherin-wound Skin Appearance) Assessed -Temperature (Sherin-wound Skin No Abnormality Appearance) (Pt Warm) -Tenderness on Palpation (Sherin-wound No Skin Appearance) -Ulcer Cleansing Soap and Water -Foul Odor after Cleansing No -Anesthetic Used 4% Lidocaine Solution WC - Nurse 2 - General Ulcer CM Notes Start: 08/16/21 15:01 Freq: Status: Active Protocol: Activity Type Activity Date Activity User E-Sign Co-Sign Detail Recorded Client Recorded Date Recorded By Document 08/16/21 15:34 MW [id number] 08/16/21 15:42 MW 08/16/21 15:34 Wound Center Nurse 2 -Time 15:35 -Correct Patient Yes -Correct Side, Site, Position Yes -Correct Procedure Yes -Procedure Performed Yes -Type of Procedure Debridement -Clinical Debridement Subcutaneous -Tissue Removed Subcutaneous -Post Debridement (cm) - Length 2.2 -Post Debridement (cm) - Width 1.5 -Post Debridement (cm) - Depth 0.5 -Total Square (Post) (cm) 3.30 -Area of Debridement (cm) - Length 2.2 -Area of Debridement (cm) - Width 1.5 -Total Square (Area) (cm) 3.30 -Tunneling No -Undermining/Tunneling No -Circular Undermining No -Wound/Ulcer Outcome Not Healed -Ulcer Cleansing Rinsed/ Irrigated with Saline -Foul Odor after Cleansing No -Bioengineered Tissue No -Bleeding Controlled with Pressure -Offloading No -Treatment Response Procedure Tolerated Well -Debridement - Subq, 1st 20sq cm Yes Pain Scale: 0-10 Numeric Is Patient Pain Free? Yes Charges/Coding Visit Charges Office Visits / Consults: 96226 OV L4 Est Procedures Integumentary 111xxx-113xx: 50062 Kacy subq tissue 20 sq cm/< Assessment/Plan Assessment/Plan (1) Non-pressure chronic ulcer of other part of left foot with fat layer exposed: CODE(S): L97.522 - Non-pressure chronic ulcer of other part of left foot with fat layer exposed (2) Cellulitis of toe of left foot: CODE(S): L03.032 - Cellulitis of left toe (3) Osteomyelitis: CODE(S): M86.9 - Osteomyelitis, unspecified QUALIFIERS: Osteomyelitis type: other chronic Osteomyelitis location: foot Laterality: left Qualified Code(s): M86.672 - Other chronic osteomyelitis, left ankle and foot (4) Type 2 diabetes mellitus with diabetic polyneuropathy: CODE(S): E11.42 - Type 2 diabetes mellitus with diabetic polyneuropathy QUALIFIERS: Diabetes mellitus retirement insulin use: unspecified retirement insulin use status Qualified Code(s): E11.42 - Type 2 diabetes mellitus with diabetic polyneuropathy (5) Obesity (BMI 30-39.9): CODE(S): E66.9 - Obesity, unspecified QUALIFIERS: Obesity type: due to excess calories Obesity classification: adult class 1 (BMI 30 - 34.9) Serious obesity comorbidity presence: with serious comorbidity Body mass index: BMI 33.0-33.9 Qualified Code(s): E66.09 - Other obesity due to excess calories; Z68.33 - Body mass index [BMI] 33.0-33.9, adult (6) Delayed wound healing: CODE(S): T14.8XXD - Other injury of unspecified body region, subsequent encounter (7) Amputation of right great toe: CODE(S): S98.111A - Complete traumatic amputation of right great toe, initial encounter PLAN: Debridement performed today in clinic as annotated above. Silver cell cover with gauze applied. At home wound-care instructions: Moistened silver cell cover with gauze, Change dressing once daily or more frequently as needed due to contamination. Wash wounds daily with antibacterial soap and water, rinse and dry thoroughly before each dressing change. Compression: N/A Off-loading: The patient was instructed to avoid pressure and friction on the affected areas. Reposition every 2 hours at minimum. Avoid prolonged standing and/or dangling of legs. When seated, feet should be elevated at chest level. Frequent ambulation is encouraged. Discussed importance of offloading with offl oaded surgical shoe or cam boot with offloading pad. Diet: Patient encouraged to increase protein intake while taking caution to avoid high carbohydrate and/or sugar intake. Labs/cultures/imaging: Cultures ordered and collected today. Routine baseline lab work held. Blood flow studies 10/23/2020. Venous studies showed patent deep veins. Arterial studies showed Right OSVALDO 1.08 and TBI 0.99 and left OSAVLDO 1.02 and TBI 1.07 with bilateral triphasic pulses noted. This should prove adequate to allow healing. Follow-up: Return to clinic in 1 week for re-evaluation. Patient does wish to have a surgical consult to consider amputation, she will be referred to Dr. Martin. return sooner or report to the emergency room should symptoms worsen, or new symptoms arise.
--- NOTE | 2021-08-21 11:40 | WC ---
Wound culture results from 08/16/21 reviewed per Timo Johnson NP. Antibiotic Augmentin sent to [facility] per Timo. Spoke to patient at 1025 to notify. Voiced understanding and will pick it up today.
== END 2021-08-28 23:59 ==
LOC: WC 14:49
PROVIDERS: PCP Internal Medicine; Visit Provider Nurse Practitioner Family
DX: E11.621 Type 2 diabetes mellitus with foot ulcer (principal); L97.522 Non-pressure chronic ulcer of other part of left foot with fat layer exposed; L97.512 Non-pressure chronic ulcer of other part of right foot with fat layer exposed; L03.032 Cellulitis of left toe; M86.672 Other chronic osteomyelitis, left ankle and foot; E11.42 Type 2 diabetes mellitus with diabetic polyneuropathy; Z68.33 Body mass index [BMI] 33.0-33.9, adult; T14.8XXD Other injury of unspecified body region, subsequent encounter; E03.9 Hypothyroidism, unspecified; E11.69 Type 2 diabetes mellitus with other specified complication; E66.09 Other obesity due to excess calories; Z79.4 Long term (current) use of insulin; E78.5 Hyperlipidemia, unspecified; F41.8 Other specified anxiety disorders; G47.30 Sleep apnea, unspecified; G89.29 Other chronic pain; H81.09 Meniere's disease, unspecified ear; M79.7 Fibromyalgia; Z79.1 Long term (current) use of non-steroidal anti-inflammatories (NSAID); F17.210 Nicotine dependence, cigarettes, uncomplicated
CPT/HCPCS: 11042; 87070; 87075; 87077; 87186; 87205; 99213; G0463

== ENCOUNTER 2021-09-13 15:11 | Outpatient (RCR) | payer MEDICARE, MEDICAID, SELFPAY ==
[2021-08-29 00:04] VITALS: BP 157/76; PULSE 88; RESP 22; TEMP 37.1; BMI 40.9
[2021-09-13 15:13] VITALS: BP 155/75; PULSE 89; RESP 16; TEMP 36.7; BMI 40.9
--- NOTE | 2021-09-13 23:11 | PN.PCM_ITS ---
History of Present Illness Date of Service: 09/13/21 Chief Complaint: Left hallux wound History of Wound: Patient is a 50 year old female who presents with chronic nonhealing plantar left hallux ulceration. Patient has had multiple previous infections to this wound. Patient has had both cellulitis and osteomyelitis noted to this wound. She has been hospitalized for this on multiple occasions. She had previously been following up with infectious disease with Dr. Lorenzo for management. 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 She did follow up with Dr. Guillen at the wound healing center prior and apparently discussed potential amputation. Patient states that she has been fed up with having this wound for over a year and a half now and would like to consider amputation after the holidays and would like referred to podiatry for surgery. The patient does have a history of being noncompliant. Today in office she is not utilizing her offloading shoe for her ulcer and she is actually wearing cowboy boots with a very narrow toe space. She was previously set up for HBO therapy but missed those appointments earlier in the year. She does note that she is following up with endocrinology Dr. Man on getting her blood sugars under control. Her most recent A1c was 10.3. She currently has been utilizing silver cell and covering with gauze. She denies any systemic or localized signs of infection at this time. Past medical, family, and social history reviewed and not pertinent to the current visit and all other systems reviewed and negative with exception of those listed above. Progress of Wound: 09/13/2021?no new concerns, patient awaiting evaluation for amputation of the left great toe. She wishes to wait until the new year to get this procedure done Objective Data Objective Data Vital Signs: Vital Signs Temp Pulse Resp BP 98.0 F 89 16 155/75 H 09/13/21 15:13 09/13/21 15:13 09/13/21 15:13 09/13/21 15:13 Body Mass Index (BMI) 40.9 Charges/Coding Procedures Integumentary 111xxx-113xx: 99864 Kacy subq tissue 20 sq cm/< Physical Exam Narrative Const alert and no apparent distress General Appearance: cooperative and comfortable Lymph Lymphatic: no lymphedema noted Resp normal respiratory effort Effort and Inspection: able to speak in complete sentences Extremity normal capillary refill, no calf tenderness and no pedal edema General Extremity: no tenderness to palpation of joints or extremities; Negative for clubbing or cyanosis Peripheral Pulses: posterior tibial pulses present left 2+ and dorsalis pedis pulses present left 2+ Skin General Skin Exam: Negative for ecchymosis, eschar, pallor or dermatitis Rashes: no rashes Wounds: wounds noted Wound Narrative: ulcers noted to left medial plantar hallux. No malodor, probing to bone, fluctuation, crepitus. She does have chronic venous changes to bilateral lower extremities with out any edema. Mild surrounding callus tissue noted. Granular base. no drainage noted. No pain. No purulent drainage 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 Neuro Gait (Neuro): normal gait Sensory Exam: extremities light-touch: decreased Motor Exam: strength 5/5 throughout Psych Appearance: appropriate Debridement Note Debridement Note Wound debrided: Left hallux ulceration Laterality: Left Type of Debridement: Excisional debridement Anesthesia Used: 5% Lidocaine Gel Depth: in the subcutaneous layer Percentage of wound debrided: 100 Instrument Used: 5mm curette Tissue Removed: Slough and devitalized tissue Severity: Fat Layer Exposed Amount of bleeding with debridement: Mild Bleeding Controlled with: Pressure Patient tolerated procedure: Patient tolerated procedure well Post-Debridement Measurements and Additional Note: Post-Debridement Measurements/Treatment WC - Nurse 1 - General Ulcer Assessment Start: 09/13/21 15:13 Freq: Status: Active Protocol: NANCY Activity Type Activity Date Activity User E-Sign Co-Sign Detail Recorded Client Recorded Date Recorded By Document 09/13/21 15:13 ML [id number] 09/13/21 15:16 ML 09/13/21 15:13 - Today's Visit Information Type of service Follow-up Visit (Physician/RISK MANAGEMENT PROFESSIONAL ) Arrival Mode Ambulatory Patient Identification Verified (Name & Yes ) Patient Requires Transmission-Based No Precautions Safety Precautions NA Height and Weight Body Mass Index (BMI) 40.9 BMI Classification Obese Vital Signs Temperature (97.8 F-99.1 F) 98.0 F Temperature Source Temporal Pulse Rate (60-100) 89 Pulse Location Monitor Respiratory Rate (12-18) 16 Respiratory rate source Observation Blood Pressure (90/60-120/80) 155/75 H Blood Pressure Mean (mm Hg) 101 Source Monitor Position Sitting Blood Pressure Location Left Arm History Since Last Visit- (Skip if this is Patient's initial visit) Have you changed medications since your No last visit? Any new allergies or adverse reactions No Had a fall/change in ADL's that may No increase risk of falls Signs or symptoms of abuse and/or No neglect since last visit Have you been in the hospital since your No last visit? Has dressing in place as prescribed Yes Has compression in place as prescribed N/A Has offloadiing in place as prescribed N/A Experienced any changes in pain level or No management Left Footwear Regular Shoe Right Footwear Regular Shoe Pain Scale: 0-10 Numeric Is Patient Pain Free? Yes - Nurse 1 - General Ulcer Measurement Start: 09/13/21 15:13 Freq: Status: Active Protocol: Activity Type Activity Date Activity User E-Sign Co-Sign Detail Recorded Client Recorded Date Recorded By Document 09/13/21 15:13 ML [id number] 09/13/21 15:16 ML 09/13/21 15:13 Wound Center Nurse 1 #3 left great toe -Current Size (cm) - Length 0.8 -Current Size (cm) - Width 0.6 -Current Size (cm) - Depth 0.2 -Total Square Cm 0.48 -Exudate Amt Medium -Exudate Type Serosanguineous -Wound Margin Distinct, Outline Attached -Granulation Amt Small (1-33%) -Slough/Fibrin Yes -Necrosis Amt Small (1-33%) -Texture (Sherin-wound Skin Appearance) Assessed -Moisture (Sherin-wound Skin Appearance) Assessed -Color (Sherin-wound Skin Appearance) Assessed -Temperature (Sherin-wound Skin No Abnormality Appearance) (Pt Warm) -Tenderness on Palpation (Sherni-wound No Skin Appearance) -Ulcer Cleansing Rinsed/ Irrigated with Saline -Foul Odor after Cleansing No -Anesthetic Used 4% Lidocaine Solution WC - Nurse 2 - General Ulcer CM Notes Start: 09/13/21 15:13 Freq: Status: Active Protocol: Activity Type Activity Date Activity User E-Sign Co-Sign Detail Recorded Client Recorded Date Recorded By Document 09/13/21 15:42 MW [id number] 09/13/21 15:45 MW 09/13/21 15:42 Wound Center Nurse 2 -Time 15:42 -Correct Patient Yes -Correct Side, Site, Position Yes -Correct Procedure Yes -Procedure Performed Yes -Type of Procedure Debridement -Clinical Debridement Subcutaneous -Tissue Removed Subcutaneous -Post Debridement (cm) - Length 1.0 -Post Debridement (cm) - Width 0.5 -Post Debridement (cm) - Depth 0.4 -Total Square (Post) (cm) 0.50 -Area of Debridement (cm) - Length 1.0 -Area of Debridement (cm) - Width 0.5 -Total Square (Area) (cm) 0.50 -Tunneling No -Undermining/Tunneling No -Circular Undermining No -Wound/Ulcer Outcome Not Healed -Ulcer Cleansing Rinsed/ Irrigated with Saline -Foul Odor after Cleansing No -Bioengineered Tissue No -Bleeding Controlled with Pressure -Offloading No -Treatment Response Procedure Tolerated Well -Debridement - Subq, 1st 20sq cm Yes Pain Scale: 0-10 Numeric Is Patient Pain Free? Yes Assessment/Plan Assessment/Plan (1) Non-pressure chronic ulcer of other part of left foot with fat layer exposed: CODE(S): L97.522 - Non-pressure chronic ulcer of other part of left foot with fat layer exposed (2) Cellulitis of toe of left foot: CODE(S): L03.032 - Cellulitis of left toe (3) Osteomyelitis: CODE(S): M86.9 - Osteomyelitis, unspecified QUALIFIERS: Osteomyelitis type: other chronic Osteomyelitis location: foot Laterality: left Qualified Code(s): M86.672 - Other chronic osteomyelitis, left ankle and foot (4) Type 2 diabetes mellitus with diabetic polyneuropathy: CODE(S): E11.42 - Type 2 diabetes mellitus with diabetic polyneuropathy QUALIFIERS: Diabetes mellitus ophthalmologist retina specialist insulin use: unspecified ophthalmologist retina specialist insulin use status Qualified Code(s): E11.42 - Type 2 diabetes mellitus with diabetic polyneuropathy (5) Obesity (BMI 30-39.9): CODE(S): E66.9 - Obesity, unspecified QUALIFIERS: Obesity type: due to excess calories Obesity classification: adult class 1 (BMI 30 - 34.9) Serious obesity comorbidity presence: with serious comorbidity Body mass index: BMI 33.0-33.9 Qualified Code(s): E66.09 - Other obesity due to excess calories; Z68.33 - Body mass index [BMI] 33.0-33.9, adult (6) Delayed wound healing: CODE(S): T14.8XXD - Other injury of unspecified body region, subsequent encounter (7) Amputation of right great toe: CODE(S): S98.111A - Complete traumatic amputation of right great toe, initial encounter PLAN: Debridement performed today in clinic as annotated above. Silver cell cover with gauze applied. At home wound-care instructions: Moistened silver cell cover with gauze, Change dressing once daily or more frequently as needed due to contamination. Wash wounds daily with antibacterial soap and water, rinse and dry thoroughly before each dressing change. Compression: N/A Off-loading: The patient was instructed to avoid pressure and friction on the affected areas. Reposition every 2 hours at minimum. Avoid prolonged standing and/or dangling of legs. When seated, feet should be elevated at chest level. Frequent ambulation is encouraged. Discussed importance of offloading with offloaded surgical shoe or cam boot with offloading pad. Diet: Patient encouraged to increase protein intake while taking caution to avoid high carbohydrate and/or sugar intake. Labs/cultures/imaging: Cultures ordered and collected today. Routine baseline lab work held. Blood flow studies 10/23/2020. Venous studies showed patent deep veins. Arterial studies showed Right OSVALDO 1.08 and TBI 0.99 and left OSVALDO 1.02 and TBI 1.07 with bilateral triphasic pulses noted. This should prove adequate to allow healing. Follow-up: Return to clinic in 1 week for re-evaluation. Patient does wish to have a surgical consult to consider amputation, she will be referred to Dr. Martin. return sooner or report to the emergency room should symptoms worsen, or new symptoms arise.
== END 2021-09-28 23:59 ==
LOC: WC 15:11
PROVIDERS: PCP Internal Medicine; Visit Provider Nurse Practitioner Family
DX: L97.522 Non-pressure chronic ulcer of other part of left foot with fat layer exposed (principal); L03.032 Cellulitis of left toe; Z68.33 Body mass index [BMI] 33.0-33.9, adult; Z91.19 Patient's noncompliance with other medical treatment and regimen; E66.9 Obesity, unspecified; E11.42 Type 2 diabetes mellitus with diabetic polyneuropathy; M86.672 Other chronic osteomyelitis, left ankle and foot; Z79.4 Long term (current) use of insulin; Z79.899 Other long term (current) drug therapy
CPT/HCPCS: 11042

== ENCOUNTER 2021-10-01 12:16 | Emergency (ER) | payer MEDICARE, MEDICAID, SELFPAY ==
[2021-10-01 12:17] VITALS: BP 178/87; PULSE 85; RESP 16; TEMP 36.3; O2SAT 95; BMI 41.6
--- NOTE | 2021-10-01 13:47 | ED.RN ---
PT NO LONGER WANTS TO WAIT. PT LWBS
== END 2021-10-01 13:50 | disposition left against medical advice (07) ==
LOC: ED 13:50
PROVIDERS: PCP Internal Medicine
DX: L08.9 Local infection of the skin and subcutaneous tissue, unspecified (principal)

== ENCOUNTER 2021-11-13 09:13 | Outpatient (CLI) | payer MEDICARE, MEDICAID, SELFPAY ==
--- NOTE | 2021-11-13 10:00 | MRI_ITS ---
STUDY: MRI BRAIN WITHOUT CONTRAST REASON FOR EXAM: Female, 50 years old. ATAXIA, bILATERAL HEARING LOSS, tinnitus TECHNIQUE: Standardized multiplanar fat and water weighted pulse sequences were obtained. MRI examination of brain obtained with standard protocol clearly multiplanar multiecho noncontrast imaging. Additional high-resolution imaging posterior cranial fossa obtained. Contrast: No contrast administered. COMPARISON: CT examination of the head dated 08/23/2019 FINDINGS: HEMISPHERES, CEREBELLUM AND BRAINSTEM: 1. The cerebral parenchyma, ventricular system, subarachnoid spaces have normal configuration and density. There is a normal gyral pattern. There is normal mccall/white differentiation. No midline shift.. 2. The hemispheric white matter has normal appearance. 3. No intraparenchymal mass, hemorrhage, or acute territorial infarct. 4. The cerebellum, brainstem, basilar and suprasellar cisterns have normal appearance. No Chiari malformation. 5. There is normal appearance of the 7th and 8th cranial nerve complexes, IACs and membranous labyrinth. No mass is noted. No evidence fluid or soft tissue accumulation the middle ear cavities. PITUITARY: Infundibulum and pituitary have normal configuration. Midline structures appear normal. CSF SPACES: Appropriate for age. No hydrocephalus. Basal cisterns are patent. VESSELS: 1. There are normal flow voids noted in the great vessels at the skull base ORBITS AND PARANASAL SINUSES: 1. Both globes, extraocular muscles, optic nerves and retrobulbar fat appear unremarkable. 2. Mild mucosal thickening in the ethmoid complexes, no air-fluid levels or roberta sinus opacification. Incidental note of RIGHT mastoid air cell disease. 3. There is incidental note of FLAIR and T2 hyperintense collections in the fossa of Rosenmuller bilaterally greater on the RIGHT than LEFT consistent with benign fossa of Rosenmuller cysts. BONY ELEMENTS: Bony elements of the cranial vault, facial skeleton and skull base have normal appearance. SCALP AND SOFT TISSUES: Normal appearance of the soft tissues of the scalp and the visualized face OTHER: None MRI/Brain without Contrast IMPRESSION: 1. No intracranial mass, hemorrhage, or acute territorial infarct. 2. Normal appearance the 7th and 8th cranial nerve complexes, IACs and membranous labyrinth. No masses noted. No evidence of fluid or soft tissue accumulation the middle ear cavities. 3. Mild chronic-appearing ethmoid mucosal thickening. Mild to moderate RIGHT mastoid air cell disease. 4. Incidental note of a benign fossa of Rosenmuller cysts bilaterally. Electronically Signed: Sinan Mason MD at 16:04 EST ,
== END 2021-11-13 23:59 | disposition home or self-care (01) ==
LOC: MRI 09:15
PROVIDERS: PCP Internal Medicine; Referring Provider Otolaryngology Otolaryngology/Facial Plastic Surgery; Visit Provider Otolaryngology Otolaryngology/Facial Plastic Surgery
DX: R27.0 Ataxia, unspecified (principal); H93.19 Tinnitus, unspecified ear
CPT/HCPCS: 70551

== ENCOUNTER 2022-03-15 16:49 | Emergency (ER) | payer MEDICARE, MEDICAID, SELFPAY ==
[2022-03-15 16:50] VITALS: BP 152/79; PULSE 88; RESP 16; TEMP 36.4; O2SAT 95; BMI 40.7
[2022-03-15 16:53] VITALS: BP 152/79; PULSE 88; RESP 16; TEMP 36.4; O2SAT 95
[2022-03-15 17:06] LABS: Absolute Lymphocyte Count 1.96 X10^3/uL (0.83-4.51); Absolute Neutrophil Count 10.8 X10^3/uL (2.0-7.7); Basophil# 0.03 X10^3/uL; Basophil% 0.2 % (0-1); Eosinophil# 0.31 X10^3/uL; Eosinophils% 2.2 % (0-5); Hematocrit 40.9 % (37-47); Hemoglobin 12.9 g/dL (12.0-15.0); Lymphocyte # 1.96 X10^3/ul (0.83-4.51); Lymphocyte % 14.2 % (19-41); Mean Corp Hgb Conc 31.5 g/dL (32-36); Mean Corpuscular Hgb 27.4 pg (27.0-32.0); Mean Platelet Vol. 9.4 fl (6.2-12.0); Monocyte# 0.65 X10^3/uL; Monocyte% 4.7 % (0-10); NRBC Flagged by Analyzer 0 % (0-5); Neutrophil # 10.84 X10^3/uL (2.7-7.7); Neutrophil % 78.4 % (47-70); Platelet Count 250 K/mm3 (150-450); RBC Distribution Width CV 15.8 % (11.6-14.6); RBC Distribution Width SD 49.7 fl (35.1-43.9); White Blood Count 13.8 K/mm3 (4.4-11.0)
[2022-03-15 17:22] LABS: Anion Gap 4 (5-15); BUN 14 mg/dL (7-18); BUN/Creat Ratio 21.3 RATIO (10-20); Calcium,Total 8.7 mg/dL (8.5-10.1); Chloride 110 mmol/L (98-107); Creatinine, Serum 0.66 mg/dL (0.55-1.02); EST Glomerular Filtration Rate 101 mL/min (>60); Est Glom Filt Rate - Afr Amer 122 mL/min (>60); Estimated Creatinine Clearance 91.76 ml/min; Glucose 124 mg/dL (74-106); Potassium 3.9 mmol/L (3.5-5.1); Sodium Level 139 mmol/L (136-145)
[2022-03-15] MEDS: 0.9% Normal Saline 1,000 ML 1000 ML IV (18:30)
[2022-03-15] MEDS: diazePAM 5 MG Tablet PO (18:30)
[2022-03-15] MEDS: Ondansetron 4 MG/2 ML Vial IV (18:30)
[2022-03-15 18:33] VITALS: BP 148/70; PULSE 79; RESP 18; TEMP 37.4; O2SAT 98
--- NOTE | 2022-03-15 19:10 | EDS_ITS ---
HPI History of Present Illness Chief Complaint: Nausea/Vomiting Informant: patient Narrative Narrative: 59-year-old female presenting to the emergency department with vomiting diarrhea. She states that she started Trulicity about 3 weeks ago and for the past 3 weeks has had diarrhea. This week she is also had vomiting. She states that she talked to her national sales representative 2 days ago who wanted her to keep taking it. She has Zofran at home for problems with her M?ni?re's disease. She states that because she has been vomiting so much her M?ni?re's is really flaring up. She took some Imodium this morning. She states that every time she eats or drinks she either has diarrhea or vomiting. Triage vital signs were reviewed and normal. [facility] Medical History SEUN (acute kidney injury) Anxiety Chronic pain Chronic ulcer of right foot with fat layer exposed Depression Depression with anxiety Diabetes Diabetes Diabetic foot ulcer Essential hypertension Fibromyalgia Hyperlipidemia Hypothyroidism Meniere disease Obesity Obesity (BMI 30-39.9) Osteomyelitis Osteomyelitis of second toe of right foot Osteomyelitis of toe of right foot Presence of permanent central venous catheter Skin ulcer of left great toe with fat layer exposed Sleep apnea Smoker Type 2 diabetes mellitus with diabetic polyneuropathy Vascular catheter fitting or adjustment Vertigo Home Medications albuterol sulfate 90 mcg/actuation aerosol inhaler 1 - 2 puff inhalation Q6H PRN PRN Sob &/Or Wheezing 08/30/19 [History Last Taken 11/08/20] atorvastatin 80 mg tablet 80 mg PO DAILY cholesterol 08/30/19 [History Last Taken 04/18/21] duloxetine 60 mg capsule,delayed release 60 mg PO DAILY@1800 DEPRESSION 03/21/20 [History Last Taken 04/18/21] multivitamin with minerals 1 tab PO DAILY SUPPLEMENT 03/21/20 [History Last Taken 04/19/21] pregabalin 100 mg capsule 100 mg PO BID NERVE PAIN 03/21/20 [History Last Taken 04/19/21] ergocalciferol (vitamin D2) 1,250 mcg (50,000 unit) capsule 50,000 unit PO WE supplement 10/17/20 [History Last Taken 04/18/21] levothyroxine 25 mcg tablet 50 mcg PO DAILY thyroid 11/11/20 [History Last Taken 04/19/21] pantoprazole 20 mg tablet,delayed release 20 mg PO BID gi distress 11/11/20 [History Last Taken 04/19/21] hydroxyzine pamoate 100 mg capsule 100 mg PO QHS anxiety 12/08/20 [History Last Taken 04/18/21] losartan 50 mg tablet 50 mg PO DAILY bp 12/08/20 [History Last Taken 04/19/21] amlodipine 10 mg tablet 10 mg PO DAILY BP 12/20/20 [History Last Taken 04/19/21] magnesium hydroxide 400 mg (170 mg magnesium) chewable tablet 400 mg PO DAILY #5 tabs 04/20/21 [Rx Last Taken Unknown] potassium chloride 20 mEq tablet,extended release 20 meq PO DAILY #5 tabs 0 04/20/21 [Rx Last Taken Unknown] gabapentin 100 mg capsule 100 mg PO 05/18/21 [History Last Taken Unknown] levothyroxine 50 mcg tablet 50 mcg PO DAILY 05/18/21 [History Last Taken Unknown] naproxen 500 mg tablet (Naprosyn) 500 mg PO BID PRN pain #30 tabs 06/28/21 [Rx Last Taken Unknown] FreeStyle Lite Strips (blood sugar diagnostic) #360 ea 08/03/21 [Rx Last Taken Unknown] pen needle, diabetic 32 gauge x 5/32 (BD Ultra-Fine Alka Pen Needle) #450 ea 08/03/21 [Rx Last Taken Unknown] amoxicillin 875 mg-potassium clavulanate 125 mg tablet (Augmentin) 1 tab PO BID #20 tabs 08/21/21 [Rx Last Taken Unknown] Novolog Flexpen U-100 Insulin 100 unit/mL (3 mL) subcutaneous (insulin aspart U- 100) 40 unit (0.4 mL) subcut TID #108 mL 11/14/21 [Rx Last Taken Unknown] gabapentin 600 mg tablet 600 mg PO 11/14/21 [History Last Taken Unknown] amoxicillin 875 mg tablet 875 mg PO 12/18/21 [History Last Taken Unknown] FreeStyle Gómez 14 Day Sensor (flash glucose sensor) #2 ea 02/13/22 [Rx Last Taken Unknown] dulaglutide 1.5 mg/0.5 mL subcutaneous pen injector (Trulicity) 1.5 mg (0.5 mL) subcut QWEEK #2 mL 02/13/22 [Rx Last Taken Unknown] glimepiride 4 mg tablet 4 mg PO BID #180 tabs 02/13/22 [Rx Last Taken Unknown] insulin glargine 100 unit/mL (3 mL) subcutaneous pen (Lantus Solostar U-100 Insulin) 100 unit subcut QHS #90 mL 02/13/22 [Rx Last Taken Unknown] levothyroxine 75 mcg tablet 75 mcg PO 02/13/22 [History Last Taken Unknown] trazodone 100 mg tablet 100 mg PO QHS SLEEP 02/13/22 [History Last Taken Unknown] Allergy/AdvReac Type Severity Reaction Status Date / Time clindamycin Allergy Hives Verified 03/15/22 17:22 erythromycin base Allergy Hives Verified 03/15/22 17:22 [From E-Mycin] vancomycin Allergy Hives Verified 03/15/22 17:22 Gadolinium-MRI Contrast AdvReac Other Verified 03/15/22 17:22 Medium [CONTRAST] Iodinated Contrast Media AdvReac NEEDS Verified 03/15/22 17:22 [CONTRASTS] FOLLOW-UP Surgical History History of appendectomy Social History Smoking Status: Current every day smoker tobacco type: cigarettes ROS ROS ED Constitutional Constitutional ED: Denies chills, fever(s) or weight loss Eyes Eyes: Denies change in vision or diplopia ENT ENT ED: Denies ear pain, rhinorrhea or sore throat Cardiovascular Cardiovascular: Denies chest pain, orthopnea, palpitations or racing heartbeat Respiratory/Chest Respiratory/Chest: Denies cough, dyspnea or orthopnea Gastrointestinal Gastrointestinal: Reports diarrhea, nausea and vomiting; Denies abdominal pain Genitourinary Genitourinary ED: Denies dysuria, hematuria or urinary frequency Musculoskeletal Musculoskeletal: Denies arthralgias or myalgias Integumentary Denies abscess or rash Neurologic Neurologic: Reports headache(s) and other Details: Dizziness ; Denies weakness Psychiatric Psychiatric: Denies anxiety, depression, suicidal ideation or suicidal thoughts Endocrine Endocrinology: Denies polydipsia, polyphagia or polyuria Allergic/Immunologic Allergic/Immunologic ED: Denies mouth swelling, tongue swelling or urticaria EXAM Physical Exam Const Vital Signs: 03/15/22 16:50 03/15/22 16:53 03/15/22 18:33 Temperature 97.6 F L 97.6 F L 99.4 F H Temperature Source Temporal Temporal Oral Pulse Rate 88 88 79 Respiratory Rate 16 16 18 Blood Pressure 152/79 H 152/79 H 148/70 H Blood Pressure Mean 103 103 96 Pulse Ox 95 95 98 Oxygen Delivery Method Room Air Room Air Room Air 03/15/22 20:00 Temperature Temperature Source Pulse Rate Respiratory Rate 18 Blood Pressure Blood Pressure Mean Pulse Ox 99 Oxygen Delivery Method Room Air Positive well nourished, well developed and obese General Appearance ED: well developed Nutritional Appearance: obese HEENT Reports normocephalic, head/scalp atraumatic and moist mucous membranes Eyes PERRL and EOMs intact bilaterally Neck no lymphadenopathy, supple and no JVD Resp normal respiratory effort and clear to auscultation bilaterally Cardio regular rate, regular rhythm and no murmurs GI normal to inspection, nondistended, normoactive bowel sounds and non-tender Palpation: soft Back/Spine no CVA tenderness and normal ROM Extremity normal to inspection General Extremety ED: Negative for edema General Extremity: Negative for edema Neuro oriented x3 and CN's II-XII intact bilaterally Sensorium / Orientation: alert Motor Exam: strength 5/5 throughout Psych mental status grossly normal Mood & Affect: Negative for depressed or tearful Skin no rashes or lesions noted and no wounds MDM MDM MDM Narrative Medical decision making narrative: Patient received volume a liter of IV fluid and Zofran. Basic blood work showed a white count 13.8 BMP normal liver lipase normal. Patient will be discharged home. She has follow-up next week with her national sales representative. She does not plan on taking the Trulicity at this Friday. She tells me this is the third time she is tries taking it and she gets the same result each time. Lab Data Attestation: I reviewed the patient's lab results. Labs: Laboratory Results - last 24 hr 03/15/22 03/15/22 03/15/22 17:00 17:00 17:00 WBC 13.8 H RBC 4.70 Hgb 12.9 Hct 40.9 MCV 87.0 MCH 27.4 MCHC 31.5 L RDW Std Deviation 49.7 H RDW Coeff of Brea 15.8 H Plt Count 250 MPV 9.4 Immature Gran % (Auto) 0.300 Neut % (Auto) 78.4 H Lymph % (Auto) 14.2 L [place] % (Auto) 4.7 Eos % (Auto) 2.2 Baso % (Auto) 0.2 Absolute Neuts (auto) 10.8 H Absolute Lymphs (auto) 1.96 Nucleated RBC % 0 Sodium 139 Potassium 3.9 Chloride 110 H Carbon Dioxide 25.0 Anion Gap 4 L BUN 14 Creatinine 0.66 Estim Creat Clear Calc 91.76 Est GFR (MDRD) Af Amer 122 Est GFR (MDRD) Non-Af 101 BUN/Creatinine Ratio 21.3 H Glucose 124 H Calcium 8.7 Total Bilirubin 0.50 Direct Bilirubin 0.15 AST 17 ALT 19 Alkaline Phosphatase 108 Total Protein 6.8 Albumin 3.0 L Globulin 3.8 Lipase 60 L Discharge Plan Triage Chief Complaint: Nausea/Vomiting ED Provider: Zane Kent Dx/Rx/DC Orders Clinical Impression: Vomiting, Diarrhea, Meniere disease Prescriptions: No Action levothyroxine 50 mcg tablet 50 mcg PO DAILY gabapentin 100 mg capsule 100 mg PO (DME) pen needle, diabetic [BD Ultra-Fine Alka Pen Needle] 32 gauge x 5/32 needle See Rx Instructions .ROUTE .MEDSUPPLY Qty: 450 3RF Rx Instructions: 5x/day (DME) FreeStyle Lite Strips Strip See Rx Instructions .ROUTE .MEDSUPPLY Qty: 360 3RF Rx Instructions: 4x/day amoxicillin 875 mg tablet 875 mg PO Label Comments: take 1 tablet by mouth twice a day for 10 days gabapentin 600 mg tablet 600 mg PO Label Comments: take 1 tablet by mouth twice a day insulin aspart U-100 [Novolog Flexpen U-100 Insulin] 100 unit/mL (3 mL) insulin pen 40 unit subcut TID Qty: 108 1RF levothyroxine 75 mcg tablet 75 mcg PO Label Comments: take 1 tablet by mouth once daily for THYROID ON AN EMPTY STOMACH atorvastatin 80 MG tablet 80 mg PO DAILY albuterol sulfate 1 INHALER inhaler 1 - 2 puff inhalation Q6H PRN PRN (Reason: Sob &/Or Wheezing) multivitamin with minerals 1 EACH tablet 1 tab PO DAILY duloxetine 60 MG capsule,delayed release(DR/EC) 60 mg PO DAILY@1800 pregabalin 100 MG capsule 100 mg PO BID ergocalciferol (vitamin D2) 50,000 UNIT capsule 50,000 unit PO WE Rx Instructions: takes every friday levothyroxine 25 MCG tablet 50 mcg PO DAILY pantoprazole 20 MG tablet 20 mg PO BID losartan 50 MG tablet 50 mg PO DAILY hydroxyzine pamoate 100 MG capsule 100 mg PO QHS Label Comments: take 1 capsule by mouth at bedtime if needed amlodipine 10 MG tablet 10 mg PO DAILY trazodone 100 mg tablet 100 mg PO QHS potassium chloride 20 mEq tablet extended release 20 meq PO DAILY Qty: 5 0RF magnesium hydroxide 400 mg (170 mg magnesium) tablet,chewable 400 mg PO DAILY Qty: 5 0RF naproxen [Naprosyn] 500 mg tablet 500 mg PO BID PRN (Reason: pain) Qty: 30 0RF amoxicillin-pot clavulanate [Augmentin] 875-125 mg tablet 1 tab PO BID Qty: 20 0RF Trulicity 1.5 mg/0.5 mL pen injector 1.5 mg subcut QWEEK Qty: 2 2RF (DME) FreeStyle Gómez 14 Day Sensor Kit See Rx Instructions .ROUTE .MEDSUPPLY Qty: 2 6RF Rx Instructions: As directed glimepiride 4 mg tablet 4 mg PO BID Qty: 180 2RF Lantus Solostar U-100 Insulin 100 unit/mL (3 mL) insulin pen 100 unit subcut QHS Qty: 90 3RF Primary Care Provider: Shirley Garcia Referrals: Shirley Garcia MD [Primary Care Provider] - Alli Man MD [STAFF PHYSICIAN] - Keep [facility] appointment Disposition Disposition: Home, Self Care
[2022-03-15 19:51] LABS: AST(SGOT) 17 U/L (15-37); Alanine Aminotransfer ALT/SGPT 19 U/L (13-56); Alkaline Phosphatase 108 U/L (45-117); Bilirubin, Direct 0.15 mg/dL (0.00-0.30); Globulin 3.8 g/dL (2.2-4.2); Lipase 60 U/L (73-393); Protein, Total 6.8 g/dL (6.4-8.2)
[2022-03-15 20:00] VITALS: RESP 18; O2SAT 99
== END 2022-03-15 20:59 | disposition home or self-care (01) ==
PROVIDERS: Emergency Provider Emergency Medicine; PCP Internal Medicine; Visit Provider Emergency Medicine
DX: R11.2 Nausea with vomiting, unspecified (principal); E11.42 Type 2 diabetes mellitus with diabetic polyneuropathy; H81.09 Meniere's disease, unspecified ear; R19.7 Diarrhea, unspecified; I10 Essential (primary) hypertension; F17.210 Nicotine dependence, cigarettes, uncomplicated; E78.5 Hyperlipidemia, unspecified
CPT/HCPCS: 80048; 80076; 83690; 85025; 99285; J7030; A4216; J2405

== ENCOUNTER 2022-04-08 15:55 | Emergency (ER) | payer MEDICARE, MEDICAID, SELFPAY ==
[2022-04-08 15:56] VITALS: BP 176/88; PULSE 96; RESP 16; TEMP 36.3; O2SAT 96; BMI 40.2
--- NOTE | 2022-04-08 16:14 | EDS_ITS ---
HPI History of Present Illness Chief Complaint: Lower Extremity Injury Informant: patient Onset/Context/Timing Onset: Days Context: Gradual Onset Timing: Continuous Current Severity: Mild Narrative Narrative: 51-year-old diabetic female who is complaining of redness to her left great and second toes since Friday. She has a history of similar infections to the point where she needed her right great and second toe amputated. She denies any fever or chills. States her sugars have been running between 120-150. She did check them today. She denies any illness. Prior similar symptoms: Yes Recent Illness/Hospitalization: No PFSH [facility] Medical History SEUN (acute kidney injury) Anxiety Chronic pain Chronic ulcer of right foot with fat layer exposed Depression Depression with anxiety Diabetes Diabetes Diabetic foot ulcer Essential hypertension Fibromyalgia Hyperlipidemia Hypothyroidism Meniere disease Obesity Obesity (BMI 30-39.9) Osteomyelitis Osteomyelitis of second toe of right foot Osteomyelitis of toe of right foot Presence of permanent central venous catheter Skin ulcer of left great toe with fat layer exposed Sleep apnea Smoker Type 2 diabetes mellitus with diabetic polyneuropathy Vascular catheter fitting or adjustment Vertigo Home Medications albuterol sulfate 90 mcg/actuation aerosol inhaler 1 - 2 puff inhalation Q6H PRN PRN Sob &/Or Wheezing 08/30/19 [History Last Taken 11/08/20] atorvastatin 80 mg tablet 80 mg PO DAILY cholesterol 08/30/19 [History Last Taken 04/18/21] duloxetine 60 mg capsule,delayed release 60 mg PO DAILY@1800 DEPRESSION 03/21/20 [History Last Taken 04/18/21] multivitamin with minerals 1 tab PO DAILY SUPPLEMENT 03/21/20 [History Last Taken 04/19/21] pregabalin 100 mg capsule 100 mg PO BID NERVE PAIN 03/21/20 [History Last Taken 04/19/21] ergocalciferol (vitamin D2) 1,250 mcg (50,000 unit) capsule 50,000 unit PO WE supplement 10/17/20 [History Last Taken 04/18/21] pantoprazole 20 mg tablet,delayed release 20 mg PO BID gi distress 11/11/20 [History Last Taken 04/19/21] hydroxyzine pamoate 100 mg capsule 100 mg PO QHS anxiety 12/08/20 [History Last Taken 04/18/21] losartan 50 mg tablet 50 mg PO DAILY bp 12/08/20 [History Last Taken 04/19/21] amlodipine 10 mg tablet 10 mg PO DAILY BP 12/20/20 [History Last Taken 04/19/21] magnesium hydroxide 400 mg (170 mg magnesium) chewable tablet 400 mg PO DAILY #5 tabs 04/20/21 [Rx Last Taken Unknown] potassium chloride 20 mEq tablet,extended release 20 meq PO DAILY #5 tabs 04/20/21 [Rx Last Taken Unknown] gabapentin 100 mg capsule 100 mg PO 05/18/21 [History Last Taken Unknown] naproxen 500 mg tablet (Naprosyn) 500 mg PO BID PRN pain #30 tabs 06/28/21 [Rx Last Taken Unknown] FreeStyle Lite Strips (blood sugar diagnostic) #360 ea 08/03/21 [Rx Last Taken Unknown] pen needle, diabetic 32 gauge x 5/32 (BD Ultra-Fine Alka Pen Needle) #450 ea 08/03/21 [Rx Last Taken Unknown] Novolog Flexpen U-100 Insulin 100 unit/mL (3 mL) subcutaneous (insulin aspart U- 100) 40 unit (0.4 mL) subcut TID #108 mL 11/14/21 [Rx Last Taken Unknown] gabapentin 600 mg tablet 600 mg PO 11/14/21 [History Last Taken Unknown] FreeStyle Gómez 14 Day Sensor (flash glucose sensor) #2 ea 02/13/22 [Rx Last Taken Unknown] glimepiride 4 mg tablet 4 mg PO BID #180 tabs 02/13/22 [Rx Last Taken Unknown] insulin glargine 100 unit/mL (3 mL) subcutaneous pen (Lantus Solostar U-100 Insulin) 100 unit subcut QHS #90 mL 02/13/22 [Rx Last Taken Unknown] levothyroxine 75 mcg tablet 75 mcg PO 02/13/22 [History Last Taken Unknown] trazodone 100 mg tablet 100 mg PO QHS SLEEP 02/13/22 [History Last Taken Unknown] nitrofurantoin monohydrate/macrocrystals 100 mg capsule 100 mg PO 03/20/22 [History Last Taken Unknown] cephalexin 500 mg capsule 500 mg PO Q6 #40 caps 04/08/22 [Rx Last Taken Unknown] Allergy/AdvReac Type Severity Reaction Status Date / Time clindamycin Allergy Hives Verified 03/20/22 08:49 erythromycin base Allergy Hives Verified 03/20/22 08:49 [From E-Mycin] vancomycin Allergy Hives Verified 03/20/22 08:49 Gadolinium-MRI Contrast AdvReac Other Verified 03/20/22 08:49 Medium [CONTRAST] Iodinated Contrast Media AdvReac NEEDS Verified 03/20/22 08:49 [CONTRASTS] FOLLOW-UP Surgical History History of appendectomy Social History Smoking Status: Current every day smoker tobacco type: cigarettes ROS ROS ED ROS Narrative Denies Review of Systems ROS Unobtainable: Denies due to encephalopathy Constitutional Constitutional ED: Denies chills or fever(s) Eyes Eyes: Denies blurry vision ENT ENT ED: Denies ear pain Cardiovascular Cardiovascular: Denies chest pain Respiratory/Chest Respiratory/Chest: Denies cough Gastrointestinal Gastrointestinal: Denies abdominal pain, constipation, diarrhea, melena or nausea Genitourinary Genitourinary ED: Denies dysuria Musculoskeletal Musculoskeletal: Denies arthralgias Neurologic Neurologic: Denies headache(s) Psychiatric Psychiatric: Denies anxiety Endocrine Endocrinology: Denies cold intolerance Hematologic/Lymphatic Hematologic/Lymphatic: Reports none Allergic/Immunologic Allergic/Immunologic ED: Denies mouth swelling or tongue swelling EXAM Physical Exam Narrative Exam Narrative: 51-year-old female no acute distress. Vital signs stable afebrile. H EENT exam unremarkable. Neck nontender. Lungs clear to auscultation. Heart regular rhythm no murmur. Abdomen soft nontender. Moving all 4 extremities. She has palpable DP pulses bilaterally. 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 Her left foot has early cellulitis to the medial portion of the left great toe and most of the second toe. There is no involvement of the foot otherwise. No streaks. She is able to wiggle her toes. She has strong DP pulses bilaterally. Consistent with cellulitis. Const Vital Signs: 04/08/22 15:56 Temperature 97.3 F L Temperature Source Temporal Pulse Rate 96 Respiratory Rate 16 Blood Pressure 176/88 H Blood Pressure Mean 117 Pulse Ox 96 Oxygen Delivery Method Room Air Positive well nourished, well developed and obese; Negative for cachectic, contractures or unkempt General Appearance ED: well developed; Negative for unkempt, cachectic or contractures Nutritional Appearance: obese; Negative for cachectic HEENT Reports moist mucous membranes; Denies dry mucous membranes Negative for trauma Mouth ED: No dry mucous membranes Mouth: No dry mucous membranes Eyes PERRL and EOMs intact bilaterally General Eye ED: Negative for pale conjunctiva Neck no lymphadenopathy, supple and no JVD General: Negative for tenderness Lymph Lymphatic: Negative for other Chest Wall inspection of chest normal and palpation of chest normal Resp normal respiratory effort and clear to auscultation bilaterally Effort and Inspection: Negative for retractions Auscultation: Negative for rales or rhonchi Cardio regular rate, regular rhythm, S1 normal heart sound, S2 normal heart sound and no murmurs Rate: Negative for bradycardia Rhythm: Negative for abnormal rhythm GI normal to inspection, nondistended, normoactive bowel sounds, non-tender, non- distended and no masses Auscultation: normoactive bowel sounds Palpation: soft; Negative for tender Extremity Negative for normal to inspection Extremity Narrative: Redness of the left great toe and medial aspect and the left second toe. No streaks. Consistent with cellulitis. Minor swelling. General Extremety ED: Yes tenderness Neuro oriented x3 Sensorium / Orientation: alert Motor Exam: strength 5/5 throughout Psych mental status grossly normal Appearance: Negative for unkempt Skin No no rashes or lesions noted Rashes: rashes noted MDM MDM MDM Narrative Medical decision making narrative: 51-year-old diabetic female with cellulitis of her left second great toe and second toe. There is no signs of ingrown nail. She will be started on Keflex p.o. here and 4 times a day for the next 10 days. She sees a local school guard and will follow-up with them this week. Ensure this is improving. She knows return if worse. Discharge Plan Triage Chief Complaint: Lower Extremity Injury ED Provider: Hernan Figueroa Dx/Rx/DC Orders Clinical Impression: Cellulitis, Type 2 diabetes mellitus with diabetic polyneuropathy, Diabetic foot infection Instructions: ED Cellulitis Prescriptions: New cephalexin 500 mg capsule 500 mg PO Q6 Qty: 40 0RF No Action gabapentin 100 mg capsule 100 mg PO (DME) pen needle, diabetic [BD Ultra-Fine Alka Pen Needle] 32 gauge x 5/32 needle See Rx Instructions .ROUTE .MEDSUPPLY Qty: 450 3RF Rx Instructions: 5x/day (DME) FreeStyle Lite Strips Strip See Rx Instructions .ROUTE .MEDSUPPLY Qty: 360 3RF Rx Instructions: 4x/day gabapentin 600 mg tablet 600 mg PO Label Comments: take 1 tablet by mouth twice a day insulin aspart U-100 [Novolog Flexpen U-100 Insulin] 100 unit/mL (3 mL) insulin pen 40 unit subcut TID Qty: 108 1RF levothyroxine 75 mcg tablet 75 mcg PO Label Comments: take 1 tablet by mouth once daily for THYROID ON AN EMPTY STOMACH nitrofurantoin monohyd/m-cryst 100 mg capsule 100 mg PO Label Comments: take 1 capsule by mouth twice a day for 5 days atorvastatin 80 MG tablet 80 mg PO DAILY albuterol sulfate 1 INHALER inhaler 1 - 2 puff inhalation Q6H PRN PRN (Reason: Sob &/Or Wheezing) multivitamin with minerals 1 EACH tablet 1 tab PO DAILY duloxetine 60 MG capsule,delayed release(DR/EC) 60 mg PO DAILY@1800 pregabalin 100 MG capsule 100 mg PO BID ergocalciferol (vitamin D2) 50,000 UNIT capsule 50,000 unit PO WE Rx Instructions: takes every friday pantoprazole 20 MG tablet 20 mg PO BID losartan 50 MG tablet 50 mg PO DAILY hydroxyzine pamoate 100 MG capsule 100 mg PO QHS Label Comments: take 1 capsule by mouth at bedtime if needed amlodipine 10 MG tablet 10 mg PO DAILY trazodone 100 mg tablet 100 mg PO QHS potassium chloride 20 mEq tablet extended release 20 meq PO DAILY Qty: 5 0RF magnesium hydroxide 400 mg (170 mg magnesium) tablet,chewable 400 mg PO DAILY Qty: 5 0RF naproxen [Naprosyn] 500 mg tablet 500 mg PO BID PRN (Reason: pain) Qty: 30 0RF (DME) FreeStyle Gómez 14 Day Sensor Kit See Rx Instructions .ROUTE .MEDSUPPLY Qty: 2 6RF Rx Instructions: As directed glimepiride 4 mg tablet 4 mg PO BID Qty: 180 2RF Lantus Solostar U-100 Insulin 100 unit/mL (3 mL) insulin pen 100 unit subcut QHS Qty: 90 3RF Primary Care Provider: Shirley Garcia Referrals: Shirley Garcia MD [Primary Care Provider] - Marge Martin DPM [STAFF PHYSICIAN] - As soon as possible Activity Restrictions/Additional Instructions: Keflex antibiotic 4 times a day. Get it filled to soon as possible today and you can take another 1 tonight before you go to bed. Then started tomorrow morning with breakfast and take it 4 times a day for the next 10 days. Follow-up with your school guard Dr. Martin this week. Return if looking worse, increased redness or streaks in the leg fever or chills. Disposition Disposition: Home, Self Care
[2022-04-08] MEDS: Cephalexin 250 MG Capsule 500 MG PO (16:31)
[2022-04-08 16:33] VITALS: BP 176/81; PULSE 90; RESP 16; O2SAT 97
== END 2022-04-08 16:34 | disposition home or self-care (01) ==
PROVIDERS: Emergency Provider Emergency Medicine; PCP Internal Medicine; Visit Provider Emergency Medicine
DX: L03.032 Cellulitis of left toe (principal); E11.621 Type 2 diabetes mellitus with foot ulcer; L97.512 Non-pressure chronic ulcer of other part of right foot with fat layer exposed; E11.42 Type 2 diabetes mellitus with diabetic polyneuropathy; Z79.4 Long term (current) use of insulin; I10 Essential (primary) hypertension; F17.210 Nicotine dependence, cigarettes, uncomplicated; E78.5 Hyperlipidemia, unspecified; E03.9 Hypothyroidism, unspecified; F41.9 Anxiety disorder, unspecified; F32.A Depression, unspecified; E66.9 Obesity, unspecified; Z79.899 Other long term (current) drug therapy
CPT/HCPCS: 99282

== ENCOUNTER → 2022-04-09 | Outpatient (CLI) | payer MEDICARE, MEDICAID, SELFPAY ==
[2022-04-09 20:06] LABS: M R Staph aureus DNA By PCR Negative (Negative); Probe Check PASS; Staph aureus DNA By PCR POSITIVE (Negative)
== END | disposition home or self-care (01) ==
LOC: LABSPEC 04-10 08:12
PROVIDERS: PCP Internal Medicine; Visit Provider Podiatrist
DX: L03.116 Cellulitis of left lower limb (principal)
CPT/HCPCS: 87070; 87075; 87077; 87186; 87205; 87640

== ENCOUNTER 2022-09-04 15:45 | Inpatient (IN) | payer MEDICARE, MEDICAID, SELFPAY ==
[2022-09-04 15:46] VITALS: BP 143/79; PULSE 100; RESP 18; TEMP 36.2; O2SAT 93; BMI 39.9
[2022-09-04 16:48] VITALS: BP 143/79; PULSE 100; RESP 18; TEMP 36.2; O2SAT 93
--- NOTE | 2022-09-04 17:14 | EKG12_ITS ---
Test Reason : GEN ILLNESS Blood Pressure : / mmHG Vent. Rate : 092 BPM Atrial Rate : 092 BPM P-R Int : 138 ms QRS Dur : 088 ms QT Int : 372 ms P-R-T Axes : 049 057 059 degrees QTc Int : 460 ms Normal sinus rhythm Nonspecific T wave abnormality Prolonged QT Abnormal ECG Confirmed by LORRAINE SEGOVIA, CLAIRE ([id number]), photo editor AMI TOUSSAINT ([id number]) on 09/10/2022 10:12:04 AM Referred By: ROBINA Confirmed By:SARA PETERS MD
--- NOTE | 2022-09-04 17:17 | EDS_ITS ---
HPI History of Present Illness Chief Complaint: General Illness Informant: patient Narrative Narrative: Sent in from doctor's office for concerns for abdominal wall abscess. States noted symptoms a week ago that is progressed. Yesterday had a fever 101. Reports had had abscesses in the past. Denies cough or urinary symptoms. Reports 2 days ago nausea and vomiting. None today. No diarrhea. Currently nauseated. Allergy to clindamycin vancomycin and ureter mycin. History of diabetes. Prior similar symptoms: Yes PFSH [facility] Medical History (Updated 09/04/22 @ 19:[address] Gail Dyer MD) SEUN (acute kidney injury) Amputated toe of right foot Anxiety Chronic pain Chronic ulcer of right foot with fat layer exposed Depression Diabetes Diabetic foot ulcer Essential hypertension Fibromyalgia History of amputation of great toe Hyperlipidemia Hypothyroidism Meniere disease Obesity Obesity (BMI 30-39.9) Osteomyelitis Osteomyelitis of second toe of right foot Osteomyelitis of toe of right foot Presence of permanent central venous catheter Skin ulcer of left great toe with fat layer exposed Sleep apnea Smoker Type 2 diabetes mellitus with diabetic polyneuropathy Vascular catheter fitting or adjustment Vertigo Home Medications albuterol sulfate 90 mcg/actuation aerosol inhaler 2 puff inhalation Q4H PRN Sob &/Or Wheezing 08/30/19 [History Last Taken 11/08/20] atorvastatin 80 mg tablet 80 mg PO QHS cholesterol 08/30/19 [History Last Taken 09/03/22] duloxetine 60 mg capsule,delayed release 60 mg PO QHS DEPRESSION 03/21/20 [History Last Taken 09/03/22] multivitamin with minerals 1 tab PO DAILY SUPPLEMENT 03/21/20 [History Last Taken 09/04/22] ergocalciferol (vitamin D2) 1,250 mcg (50,000 unit) capsule 50,000 unit PO MO supplement 10/17/20 [History Last Taken 09/02/22] pantoprazole 20 mg tablet,delayed release 20 mg PO BID ACID REFLUX 11/11/20 [History Last Taken 09/04/22] losartan 50 mg tablet 50 mg PO DAILY BLOOD PRESSURE 12/08/20 [History Last Taken 09/04/22] gabapentin 600 mg tablet 600 mg PO BID NERVE PAIN 11/14/21 [History Last Taken 09/04/22] levothyroxine 75 mcg tablet (Levoxyl) 75 mcg PO DAILY THYROID 02/13/22 [History Last Taken 09/04/22] trazodone 100 mg tablet 100 mg PO QHS PRN Sleep 02/13/22 [History Last Taken 09/03/22] insulin glargine 100 unit/mL (3 mL) subcutaneous pen (Lantus Solostar U-100 Insulin) 52 unit subcut DAILY DIABETES 04/08/22 [History Last Taken 09/04/22] meclizine 25 mg tablet (Dramamine (meclizine)) 25 mg PO QHS DIZZINESS 05/16/22 [History Last Taken 09/03/22] blood sugar diagnostic (Poll Me LtdTouch Verio test strips) #100 ea 06/20/22 [Rx Last Taken Unknown] blood-glucose meter (OneTouch Verio Meter) #1 ea 06/20/22 [Rx Last Taken Unknown] flash glucose sensor (FreeStyle Gómez 2 Sensor kit) #2 ea 08/14/22 [Rx Last Taken Unknown] glimepiride 4 mg tablet 4 mg PO BID DIABETES 09/04/22 [History Last Taken 09/04/22] hydroxyzine HCl 50 mg tablet 100 mg PO QHS PRN Anxiety 09/04/22 [History Last Taken 09/02/22] insulin aspart U-100 100 unit/mL (3 mL) subcutaneous pen (Novolog Flexpen U-100 Insulin aspart) See Protocol subcut TID 09/04/22 [History Last Taken 09/04/22] naproxen 500 mg tablet 500 mg PO BID PRN Pain 09/04/22 [History Last Taken 08/31/22] semaglutide 1 mg/dose (4 mg/3 mL) subcutaneous pen injector (Ozempic) 1 mg subcut RIVERA DIABETES 09/04/22 [History Last Taken 09/01/22] Allergy/AdvReac Type Severity Reaction Status Date / Time clindamycin Allergy Hives Verified 09/04/22 15:48 erythromycin base Allergy Hives Verified 09/04/22 15:48 [From E-Mycin] vancomycin Allergy Hives Verified 09/04/22 15:48 Gadolinium-MRI Contrast AdvReac Other Verified 09/04/22 15:48 Medium [CONTRAST] Iodinated Contrast Media AdvReac NEEDS Verified 09/04/22 15:48 [CONTRASTS] FOLLOW-UP Surgical History History of appendectomy Social History (Updated 09/04/22 @ 19:[address] Gail Dyer MD) Smoking Status: Current every day smoker tobacco type: cigarettes alcohol intake: former substance use type: marijuana ROS ROS ED Constitutional Constitutional ED: Reports fever(s); Denies chills or sweats Eyes Eyes: Denies change in vision ENT ENT ED: Denies dysphagia or sore throat Cardiovascular Cardiovascular: Denies chest pain, leg edema, palpitations or racing heartbeat Respiratory/Chest Respiratory/Chest: Denies cough, dyspnea or dyspnea on exertion Gastrointestinal Gastrointestinal: Reports abdominal pain, nausea and vomiting; Denies diarrhea Genitourinary Genitourinary ED: Denies dysuria, hematuria or urinary frequency Musculoskeletal Musculoskeletal: Denies back pain, extremity pain or neck pain Integumentary Reports abscess; Denies rash or wounds Neurologic Neurologic: Denies headache(s), paresthesias or weakness EXAM Physical Exam Const Vital Signs: 09/04/22 15:46 09/04/22 17:14 09/04/22 16:48 Temperature 97.1 F L 97.1 F L Temperature Source Temporal Temporal Pulse Rate 100 100 Respiratory Rate 18 18 Blood Pressure 143/79 H 143/79 H Blood Pressure Mean 100 100 Pulse Ox 93 93 Oxygen Delivery Method Room Air Room Air Room Air Oxygen Flow Rate (L/min) 09/04/22 17:48 Temperature 97.4 F L Temperature Source Temporal Pulse Rate 84 Respiratory Rate 15 Blood Pressure 145/57 H Blood Pressure Mean 86 Pulse Ox 93 Oxygen Delivery Method Nasal Cannula Oxygen Flow Rate (L/min) 2 Positive well nourished and well developed General Appearance ED: well developed and NAD HEENT Reports moist mucous membranes normocephalic and atraumatic Eyes PERRL, EOMs intact bilaterally and conjunctivae normal General Eye ED: Yes normal appearance of both eyes Neck no lymphadenopathy and supple General: Negative for tenderness Chest Wall Chest: Negative for tenderness Resp normal respiratory effort and normal air movement Effort and Inspection: symmetric chest movement; Negative for respiratory distress Cardio regular rate, regular rhythm and no murmurs Peripheral Pulses: pulses 2+ throughout GI normal to inspection, nondistended, normoactive bowel sounds GI Narrative: Left lower quadrant abscess 5 x 6 cm surrounding erythema. Tender to palpation. There was drainage on dressing. Palpation: Negative for guarding or rebound tenderness present Back/Spine no CVA tenderness and no thoracic nor lumbar tenderness Extremity normal to inspection General Extremety ED: Negative for edema or tenderness General Extremity: Negative for edema Neuro oriented x3 and no sensory deficits noted Sensorium / Orientation: awake and alert Skin Skin Narrative: See above MDM MDM MDM Narrative Medical decision making narrative: Patient with abdominal wall abscess surrounding cellulitis this was outlined. Heart rate is 100, afebrile in the ED. Sepsis labs were ordered. White count returned at 17.5. Lactic acid 0.8. Creatinine 0.76. Abscess was I&D in the emergency department with cultures obtained. Bedside ultrasound performed depth of the abscess 1.5 cm. Patient has allergy to vancomycin. She is covered Zosyn and doxycycline. Glucose was 64 she was given juice and oral intake in the lab glucose remaining at 68. We will start D5 normal saline. I will speak with hospitalist for admission. Procedure note: Written consent. Normal sterile conditions. Shur-Clens prep, a total of 10 cc lidocaine 2% with epinephrine used for local analgesia. A cruciate incision made with 11 blade there is mild exudative returns, cultures were obtained. Copiously flushed with normal saline. Dressing placed. Patient tolerated procedure well. Lab Data Attestation: I reviewed the patient's lab results. Labs: Laboratory Results - last 24 hr 09/04/22 09/04/22 09/04/22 17:10 17:38 17:38 WBC 17.5 H RBC 4.95 Hgb 14.2 Hct 43.3 MCV 87.5 MCH 28.7 MCHC 32.8 RDW Std Deviation 46.5 H RDW Coeff of Brea 14.6 Plt Count 283 MPV 9.3 Immature Gran % (Auto) 0.400 Neut % (Auto) 65.8 Lymph % (Auto) 24.8 White % (Auto) 7.2 Eos % (Auto) 1.4 Baso % (Auto) 0.4 Absolute Neuts (auto) 11.5 H Absolute Lymphs (auto) 4.34 Nucleated RBC % 0 PT 13.9 INR 1.1 APTT 29.4 Sodium Potassium Chloride Carbon Dioxide Anion Gap BUN Creatinine Estim Creat Clear Calc Est GFR (MDRD) Af Amer Est GFR (MDRD) Non-Af BUN/Creatinine Ratio Glucose Lactic Acid Calcium Total Bilirubin AST ALT Alkaline Phosphatase Total Protein Albumin Globulin Albumin/Globulin Ratio POC Glucose 64 L 09/04/22 09/04/22 09/04/22 17:38 17:38 18:13 WBC RBC Hgb Hct MCV MCH MCHC RDW Std Deviation RDW Coeff of Brea Plt Count MPV Immature Gran % (Auto) Neut % (Auto) Lymph % (Auto) White % (Auto) Eos % (Auto) Baso % (Auto) Absolute Neuts (auto) Absolute Lymphs (auto) Nucleated RBC % PT INR APTT Sodium 137 Potassium 3.7 Chloride 106 Carbon Dioxide 28.0 Anion Gap 3 L BUN 11 Creatinine 0.76 Estim Creat Clear Calc 79.69 Est GFR (MDRD) Af Amer 104 Est GFR (MDRD) Non-Af 86 BUN/Creatinine Ratio 14.6 Glucose 68 L Lactic Acid 0.8 Calcium 9.1 Total Bilirubin 0.50 AST 9 L ALT 11 L Alkaline Phosphatase 101 Total Protein 7.3 Albumin 2.9 L Globulin 4.4 H Albumin/Globulin Ratio 0.7 L POC Glucose 68 L EKG Initial EKG: Attestation: I personally reviewed and interpreted this EKG as follows: Comments: Sinus rhythm 92, no ST changes. QTc 460. Discharge Plan Dx/Rx/DC Orders Clinical Impression: Abdominal wall abscess, Abdominal wall cellulitis, History of diabetes mellitus Disposition Disposition: Acute Care Hospital [facility] Discharge Date/Time: 09/04/22 19:50
[2022-09-04] MEDS: 0.9% Normal Saline 1,000 ML 150 ML IV (17:23)
[2022-09-04] MEDS: Ondansetron 4 MG/2 ML Vial IV (17:30)
[2022-09-04 17:31] LABS: Bedside Glucose 64 mg/dL (74-106)
[2022-09-04] MEDS: Morphine 4 MG/ML Syringe IV (17:31)
[2022-09-04 17:48] VITALS: BP 145/57; PULSE 84; RESP 15; TEMP 36.3; O2SAT 93
[2022-09-04 17:51] LABS: Absolute Lymphocyte Count 4.34 X10^3/uL (0.83-4.51); Absolute Neutrophil Count 11.5 X10^3/uL (2.0-7.7); Basophil# 0.07 X10^3/uL; Basophil% 0.4 % (0-1); Eosinophil# 0.25 X10^3/uL; Eosinophils% 1.4 % (0-5); Hematocrit 43.3 % (37-47); Hemoglobin 14.2 g/dL (12.0-15.0); Lymphocyte # 4.34 X10^3/ul (0.83-4.51); Lymphocyte % 24.8 % (19-41); Mean Corp Hgb Conc 32.8 g/dL (32-36); Mean Corpuscular Hgb 28.7 pg (27.0-32.0); Mean Corpuscular Volume 87.5 fL (81-99); Mean Platelet Vol. 9.3 fl (6.2-12.0); Monocyte# 1.26 X10^3/uL; Monocyte% 7.2 % (0-10); NRBC Flagged by Analyzer 0 % (0-5); Neutrophil # 11.52 X10^3/uL (2.7-7.7); Neutrophil % 65.8 % (47-70); Platelet Count 283 K/mm3 (150-450); RBC Distribution Width CV 14.6 % (11.6-14.6); RBC Distribution Width SD 46.5 fl (35.1-43.9); Red Blood Count 4.95 M/mm3 (4.2-5.4); White Blood Count 17.5 K/mm3 (4.4-11.0)
[2022-09-04 18:05] LABS: International Normalized Ratio 1.1; Prothrombin Time (Protime)PT. 13.9 SECONDS (11.7-14.9)
[2022-09-04 18:07] LABS: Partial Thromboplast Time 29.4 Seconds (24.1-36.2)
[2022-09-04 18:09] LABS: ALB/GLOB Ratio 0.7 RATIO (0.9-2.4); AST(SGOT) 9 U/L (15-37); Alanine Aminotransfer ALT/SGPT 11 U/L (13-56); Albumin, Serum 2.9 g/dL (3.2-5.0); Alkaline Phosphatase 101 U/L (45-117); Anion Gap 3 (5-15); BUN 11 mg/dL (7-18); BUN/Creat Ratio 14.6 RATIO (10-20); Calcium,Total 9.1 mg/dL (8.5-10.1); Chloride 106 mmol/L (98-107); Creatinine, Serum 0.76 mg/dL (0.55-1.02); EST Glomerular Filtration Rate 86 mL/min (>60); Est Glom Filt Rate - Afr Amer 104 mL/min (>60); Estimated Creatinine Clearance 79.69 ml/min; Globulin 4.4 g/dL (2.2-4.2); Glucose 68 mg/dL (74-106); Potassium 3.7 mmol/L (3.5-5.1); Protein, Total 7.3 g/dL (6.4-8.2); Sodium Level 137 mmol/L (136-145)
[2022-09-04 18:18] LABS: Lactic Acid 0.8 mmol/L (0.4-1.9)
[2022-09-04 18:36] LABS: Bedside Glucose 68 mg/dL (74-106)
[2022-09-04] MEDS: Lidocaine 2% /Epi 1:100 (20ml) 20 ML VIAL INFILT (18:36)
--- NOTE | 2022-09-04 18:46 | ED.RN ---
PT O2 SATS DECREASE TO 88% ROOM AIR WHILE PT LAYS IN BED. 2L O2 VIA NC APPLIED AT THIS TIME. PT TOLERATES WELL. PT STATES SHE HAS A HX OF SLEEP APNEA,
--- NOTE | 2022-09-04 19:01 | PCM.HP.STD ---
HPI - General General Date of Admission: 09/04/22 Date of Service: 09/04/22 Chief Complaint: Abscess - 1 week HPI Narrative KATHRYN ESQUIVEL, is a 51 F who presents with the above. Patient has past medical history of type II DM, complicated by diabetic polyneuropathy, history of osteomyelitis, s/p amputation of the right first and second digits. She comes in with anterior abdominal wall swelling, erythema that has been ongoing for about a week. Patient stated it started off as a small pimple. This has progressively gotten better. She admits to nausea and vomiting as well as subjective fever and chills. Vitals in the ED showed blood pressure 143/79, heart rate of 100, speech rate 18, temperature 97.1 F, oxygen sats of 93% on room air. WBC count is 17.5, hemoglobin 14.2, platelet count 283, INR 1.1, CMP is unremarkable. A bedside ultrasound done by the ED physician showed the abscess extending to about 1.5 cm anterior to the fascia. A bedside I&D was done. [facility] Medical History (Updated 09/04/22 @ 19:[address] Gail Dyer MD) SEUN (acute kidney injury) Amputated toe of right foot Anxiety Chronic pain Chronic ulcer of right foot with fat layer exposed Depression Diabetes Diabetic foot ulcer Essential hypertension Fibromyalgia History of amputation of great toe Hyperlipidemia Hypothyroidism Meniere disease Obesity Obesity (BMI 30-39.9) Osteomyelitis Osteomyelitis of second toe of right foot Osteomyelitis of toe of right foot Presence of permanent central venous catheter Skin ulcer of left great toe with fat layer exposed Sleep apnea Smoker Type 2 diabetes mellitus with diabetic polyneuropathy Vascular catheter fitting or adjustment Vertigo Home Medications albuterol sulfate 90 mcg/actuation aerosol inhaler 2 puff inhalation Q4H PRN Sob &/Or Wheezing 08/30/19 [History Last Taken 11/08/20] atorvastatin 80 mg tablet 80 mg PO QHS cholesterol 08/30/19 [History Last Taken 09/03/22] duloxetine 60 mg capsule,delayed release 60 mg PO QHS DEPRESSION 03/21/20 [History Last Taken 09/03/22] multivitamin with minerals 1 tab PO DAILY SUPPLEMENT 03/21/20 [History Last Taken 09/04/22] ergocalciferol (vitamin D2) 1,250 mcg (50,000 unit) capsule 50,000 unit PO MO supplement 10/17/20 [History Last Taken 09/02/22] pantoprazole 20 mg tablet,delayed release 20 mg PO BID ACID REFLUX 11/11/20 [History Last Taken 09/04/22] losartan 50 mg tablet 50 mg PO DAILY BLOOD PRESSURE 12/08/20 [History Last Taken 09/04/22] gabapentin 600 mg tablet 600 mg PO BID NERVE PAIN 11/14/21 [History Last Taken 09/04/22] levothyroxine 75 mcg tablet (Levoxyl) 75 mcg PO DAILY THYROID 02/13/22 [History Last Taken 09/04/22] trazodone 100 mg tablet 100 mg PO QHS PRN Sleep 02/13/22 [History Last Taken 09/03/22] insulin glargine 100 unit/mL (3 mL) subcutaneous pen (Lantus Solostar U-100 Insulin) 52 unit subcut DAILY DIABETES 04/08/22 [History Last Taken 09/04/22] meclizine 25 mg tablet (Dramamine (meclizine)) 25 mg PO QHS DIZZINESS 05/16/22 [History Last Taken 09/03/22] blood sugar diagnostic (OneTouch Verio test strips) #100 ea 06/20/22 [Rx Last Taken Unknown] blood-glucose meter (OneTouch Verio Meter) #1 ea 06/20/22 [Rx Last Taken Unknown] flash glucose sensor (FreeStyle Gómez 2 Sensor kit) #2 ea 08/14/22 [Rx Last Taken Unknown] glimepiride 4 mg tablet 4 mg PO BID DIABETES 09/04/22 [History Last Taken 09/04/22] hydroxyzine HCl 50 mg tablet 100 mg PO QHS PRN Anxiety 09/04/22 [History Last Taken 09/02/22] insulin aspart U-100 100 unit/mL (3 mL) subcutaneous pen (Novolog Flexpen U-100 Insulin aspart) See Protocol subcut TID 09/04/22 [History Last Taken 09/04/22] naproxen 500 mg tablet 500 mg PO BID PRN Pain 09/04/22 [History Last Taken 08/31/22] semaglutide 1 mg/dose (4 mg/3 mL) subcutaneous pen injector (Ozempic) 1 mg subcut RIVERA DIABETES 09/04/22 [History Last Taken 09/01/22] Allergy/AdvReac Type Severity Reaction Status Date / Time clindamycin Allergy Hives Verified 09/04/22 15:48 erythromycin base Allergy Hives Verified 09/04/22 15:48 [From E-Mycin] vancomycin Allergy Hives Verified 09/04/22 15:48 Gadolinium-MRI Contrast AdvReac Other Verified 09/04/22 15:48 Medium [CONTRAST] Iodinated Contrast Media AdvReac NEEDS Verified 09/04/22 15:48 [CONTRASTS] FOLLOW-UP Surgical History History of appendectomy Social History (Updated 09/04/22 @ 19:[address] Gail Dyer MD) Smoking Status: Current every day smoker tobacco type: cigarettes alcohol intake: former substance use type: marijuana ROS ROS Narrative Constitutional: Reports: Malaise, Weakness, Fatigue, fever, chills. Denies: Anorexia, Night Sweats, Weight Change Eyes: Denies: Blurred vision, Cataracts, Conjunctivae Inflammation, Pain, Redness, Vision Change HEENT: Denies: Difficulty Hearing, Difficulty Swallowing, Head Aches, Hearing Changes, Sinus Congestion, Sinus Drainage Cardiovascular: Denies: Chest Pain, Orthopnea, Palpitations Respiratory: Denies: Cough, Shortness of breath at rest, Sputum production Gastrointestinal: Denies: Abdominal Pain, Nausea, Vomiting Genitourinary: Denies: Dysuria Musculoskeletal: Denies: Joint Pain, Joint stiffness, Joint swelling, Joint Tenderness Skin: See HPI Neurological: Denies: Numbness, Tingling, Focal weakness Vital Signs Vital Signs Vital Signs: 09/04/22 15:46 09/04/22 17:14 09/04/22 16:48 Temperature 97.1 F L 97.1 F L Temperature Source Temporal Temporal Pulse Rate 100 100 Respiratory Rate 18 18 Blood Pressure 143/79 H 143/79 H Blood Pressure Mean 100 100 Pulse Ox 93 93 Oxygen Delivery Method Room Air Room Air Room Air Oxygen Flow Rate (L/min) 09/04/22 17:48 Temperature 97.4 F L Temperature Source Temporal Pulse Rate 84 Respiratory Rate 15 Blood Pressure 145/57 H Blood Pressure Mean 86 Pulse Ox 93 Oxygen Delivery Method Nasal Cannula Oxygen Flow Rate (L/min) 2 Weight Weight: 108.862 kg Body Mass Index (BMI) 39.9 Physical Exam Narrative Physical exam: General: Alert, Oriented x3, Cooperative, appears unwell, mildly dehydrated HEENT: Atraumatic Oral: Moist Mucosa Neck: Supple Lungs: Clear to auscultation Cardiovascular: HS I+II, regular, no murmurs Abdomen: Erythema and swelling of the lower anterior abdominal wall, and also about 3 cm x 3 cm seen from recent I&D, bowel Sounds Present, Soft, slightly tender to palpation Extremities: No edema Skin: No rashes, No breakdown Neurological: Grossly intact Psych/Mental Status: Appropriate Results Lab / Micro Data Result Diagrams: 09/04/22 17:38 09/04/22 17:38 Labs: Laboratory Results - last 24 hr 09/04/22 17:10: POC Glucose 64 L 09/04/22 17:38: WBC 17.5 H, RBC 4.95, Hgb 14.2, Hct 43.3, MCV 87.5, MCH 28.7, MCHC 32.8, RDW Std Deviation 46.5 H, RDW Coeff of Bre[place] 14.6, Plt Count 283, MPV 9.3, Immature Gran % (Auto) 0.400, Neut % (Auto) 65.8, Lymph % (Auto) 24.8, [place] % (Auto) 7.2, Eos % (Auto) 1.4, Baso % (Auto) 0.4, Absolute Neuts (auto) 11.5 H, Absolute Lymphs (auto) 4.34, Nucleated RBC % 0 09/04/22 17:38: PT 13.9, INR 1.1, APTT 29.4 09/04/22 17:38: Sodium 137, Potassium 3.7, Chloride 106, Carbon Dioxide 28.0, Anion Gap 3 L, BUN 11, Creatinine 0.76, Estim Creat Clear Calc 79.69, Est GFR (MDRD) Af Amer 104, Est GFR (MDRD) Non-Af 86, BUN/Creatinine Ratio 14.6, Glucose 68 L, Calcium 9.1, Total Bilirubin 0.50, AST 9 L, ALT 11 L, Alkaline Phosphatase 101, Total Protein 7.3, Albumin 2.9 L, Globulin 4.4 H, Albumin/Globulin Ratio 0.7 L 09/04/22 17:38: Lactic Acid 0.8 09/04/22 18:13: POC Glucose 68 L Assessment & Plan Assessment/Plan (1) Abdominal wall abscess: (2) Abdominal wall cellulitis: PLAN: Plan 1. Anterior abdominal wall abscess/cellulitis, status post bedside I&D Patient is a known diabetic with history of noncompliance Will admit to [facility], continue on IV Zosyn and doxycycline Consult general surgery and infectious disease Will get CT of the abdomen/pelvis with contrast - We will hydrate to avoid acute kidney injury 2. Type 2 DM, complicated by diabetic polyneuropathy, patient is insulin-dependent She was hypoglycemic in the emergency room; hold Amaryl We will continue to monitor blood glucose checks Q6h, and add low-dose insulin sliding scale We will continue with duloxetine, gabapentin 3. Hypertension/hyperlipidemia, continue on atorvastatin,losartan 4. Hypothyroidism, continue Synthroid 5. Obesity, BMI 39.9, lifestyle modification recommended 6. DVT prophylaxis?low risk, early ambulation recommended Charges/Coding Visit Charges Inpatient E&M: 82447 Init Hosp L3
[2022-09-04] MEDS: Dextrose 5%/0.9% NaCl 1,000 ML 125 ML IV (19:48)
[2022-09-04 19:53] VITALS: BP 141/78; PULSE 89; RESP 16; TEMP 36.6; O2SAT 94
[2022-09-04 20:00] VITALS: BP 127/65; PULSE 81; RESP 18; TEMP 36.8; O2SAT 94; BMI 41.2
[2022-09-04 20:18] VITALS: BP 127/65; PULSE 81; RESP 18; TEMP 36.8; O2SAT 94
--- NOTE | 2022-09-04 21:09 | CT_ITS ---
INDICATION: Acute anterior abdominal abscess, s/p I D EXAMINATION: CT ABDOMEN AND PELVIS WITH CONTRAST - CT Abdomen And Pelvis W/ Contrast Injection TECHNIQUE: Helically acquired images were obtained of the abdomen and pelvis following IV contrast. A radiation dose optimization technique was used for this scan. IV Contrast dosage and agent: 100 mL Isovue-300 Oral contrast: None. COMPARISON: June 13, 2014. FINDINGS: LOWER CHEST: Lung bases are clear. No cardiomegaly or pericardial effusion. LIVER: Homogeneous. No focal mass. GALLBLADDER AND BILIARY TREE: No calcified gallstones. No gallbladder distension or wall edema. No intra- or extrahepatic biliary ductal dilation. PANCREAS: No focal cystic or solid mass. SPLEEN: Normal size without focal cystic or solid mass. ADRENAL GLANDS: No nodules. KIDNEYS AND URETERS: Mild bilateral perinephric stranding, increased from June 11, 2014. Normal renal cortical enhancement. No hydronephrosis. No large nephrolithiasis. Unremarkable ureters. Decompressed unremarkable bladder. PERITONEUM: No ascites or free air. No other fluid collection. BOWEL: No stomach or bowel distension. Prior appendectomy. No acute colonic finding. LYMPH NODES: No enlarged mesenteric or retroperitoneal lymph nodes. VESSELS: Aorta is non-dilated. URINARY BLADDER: Unremarkable. REPRODUCTIVE ORGANS: Unremarkable uterus. Bilateral tubal ligation clips present. Left ovarian 3.7 cm cyst or cystic mass. Unremarkable right ovary.. ABDOMINAL WALL: No discrete abdominal or pelvic wall hernia. Skin thickening and subcutaneous edema along the anterior-inferior pannus, with ulceration of the left lateral margin, axial image 116. No evidence of nondraining subcutaneous fluid collection.. BONES: No lytic or blastic abnormality. CT/Abdomen/Pelvis WITH Contrast IMPRESSION: Findings compatible with cellulitis along the anterior-inferior pannus with ulceration at the left anterior margin suggestive of draining previous abscess. No evidence of non-draining subcutaneous abscess. Left ovarian 3.7 cm cyst or cystic mass, not significantly changed in size from ultrasound June 28, 2021. Nonemergent ultrasound follow-up however is recommended to better assess for new internal complexity. Mild bilateral perinephric stranding which is commonly senescent, increased from prior CT. Correlate with urine and there is clinical concern for pyelonephritis Electronically Signed: Jus Gonzalez MD at 22:54 EST ,
[2022-09-04] MEDS: traZODone 100 MG Tablet PO (21:33)
[2022-09-04] MEDS: DULoxetine Hcl 60 MG Capsule PO (21:34)
[2022-09-05] VITALS (13 sets, daily range): BP systolic 98–136; BP diastolic 55–73; PULSE 68–72; RESP 14–18; TEMP 36.1–36.9; O2SAT 92–97; BMI 41.2
[2022-09-05] MEDS: 0.9% Saline Lock 10 ML Syringe IV ×2 (00:22→03:12)
[2022-09-05] MEDS: Insulin Lispro 100 UNIT/ML INSULN.PEN SC ×2 (00:29→16:54)
[2022-09-05 00:55] LABS: Bedside Glucose 277 mg/dL (74-106)
[2022-09-05] MEDS: 0.9% Normal Saline 1,000 ML 150 ML IV (03:04)
[2022-09-05] MEDS: Morphine 2 MG/ML Syringe IV (03:11)
--- NOTE | 2022-09-05 04:34 | CON.PCM.SX_ITS ---
Assessment & Plan Assessment/Plan (1) Abdominal wall abscess: (2) Abdominal wall cellulitis: (3) History of diabetes mellitus: PLAN: Plan 51-year-old female with left lower quadrant abdominal wall cellulitis and necrotic abscess with necrotic skin and subcutaneous tissue. I recommended the patient a wide debridement of this area. This will require at minimum skin and subcutaneous tissues but may also require deeper tissues if indicated. I have described to her the technique, benefit, risk and alternatives. Cannot accomplish this at the bedside and will require operative debridement sharply. I then instructed her that she likely will be left with a significant wound And we requiring ongoing wound care management. She has had an opportunity to ask and have questions answered. I will contact the nurse spooling supervisor and ask for the first available operative time today. Patient will be kept NPO. I will consult nursing wound care support I appreciate the opportunity of assisting with the surgical care. Roger Haas M.D., F.A.C.S. HPI Consult Data Date of Consult: 09/05/22 HPI Narrative Reason for Consultation: Abdominal wall abscess and cellulitis HPI Narrative: KATHRYN ESQUIVEL, is a 51 F who presents to the [facility] with the abdominal wall abscess and cellulitis. I been asked to see the patient by and a written copy of my surgical consult will be returned to her. The patient reports that she had been ill for a week. She will presented to the emergency room yesterday evening and in the emergency room had an incision and drainage of an abdominal wall abscess per Dr. Gabriel Maria. I have been asked to see the patient for surgical support secondary to the appearance of the infection. The patient is a insulin requiring diabetic but she claims that her injection sites are periumbilical and not at the site of this infection. She claims that she occasionally gets boils which tend to spontaneously resolve. Her presentation is complicated by the use of cigarettes and marijuana. She is on multiple medications.Her BMI is 39.9. Her laboratory demonstrates a white blood cell count of 17.5 with a hemoglobin 14.2 hematocrit 43.3 platelet count of 283,000. BUN is 11 and creatinine 0.76. Her most recent hemoglobin A1c on June 20, 2022 was elevated at 8.6. Current lactic acid level 0.8. Her albumin is 2.9. [facility] Medical History (Updated 09/04/22 @ 19:[address] Gail Dyer MD) SEUN (acute kidney injury) Amputated toe of right foot Anxiety Chronic pain Chronic ulcer of right foot with fat layer exposed Depression Diabetes Diabetic foot ulcer Essential hypertension Fibromyalgia History of amputation of great toe Hyperlipidemia Hypothyroidism Meniere disease Obesity Obesity (BMI 30-39.9) Osteomyelitis Osteomyelitis of second toe of right foot Osteomyelitis of toe of right foot Presence of permanent central venous catheter Skin ulcer of left great toe with fat layer exposed Sleep apnea Smoker Type 2 diabetes mellitus with diabetic polyneuropathy Vascular catheter fitting or adjustment Vertigo Home Medications albuterol sulfate 90 mcg/actuation aerosol inhaler 2 puff inhalation Q4H PRN Sob &/Or Wheezing 08/30/19 [History Last Taken 11/08/20] atorvastatin 80 mg tablet 80 mg PO QHS cholesterol 08/30/19 [History Last Taken 09/03/22] duloxetine 60 mg capsule,delayed release 60 mg PO QHS DEPRESSION 03/21/20 [History Last Taken 09/03/22] multivitamin with minerals 1 tab PO DAILY SUPPLEMENT 03/21/20 [History Last Taken 09/04/22] ergocalciferol (vitamin D2) 1,250 mcg (50,000 unit) capsule 50,000 unit PO MO supplement 10/17/20 [History Last Taken 09/02/22] pantoprazole 20 mg tablet,delayed release 20 mg PO BID ACID REFLUX 11/11/20 [History Last Taken 09/04/22] losartan 50 mg tablet 50 mg PO DAILY BLOOD PRESSURE 12/08/20 [History Last Taken 09/04/22] gabapentin 600 mg tablet 600 mg PO BID NERVE PAIN 11/14/21 [History Last Taken 09/04/22] levothyroxine 75 mcg tablet (Levoxyl) 75 mcg PO DAILY THYROID 02/13/22 [History Last Taken 09/04/22] trazodone 100 mg tablet 100 mg PO QHS PRN Sleep 02/13/22 [History Last Taken 09/03/22] insulin glargine 100 unit/mL (3 mL) subcutaneous pen (Lantus Solostar U-100 Insulin) 52 unit subcut DAILY DIABETES 04/08/22 [History Last Taken 09/04/22] meclizine 25 mg tablet (Dramamine (meclizine)) 25 mg PO QHS DIZZINESS 05/16/22 [History Last Taken 09/03/22] blood sugar diagnostic (OneTouch Verio test strips) #100 ea 06/20/22 [Rx Last Taken Unknown] blood-glucose meter (OneTouch Verio Meter) #1 ea 06/20/22 [Rx Last Taken Unknown] flash glucose sensor (FreeStyle Gómez 2 Sensor kit) #2 ea 08/14/22 [Rx Last Taken Unknown] glimepiride 4 mg tablet 4 mg PO BID DIABETES 09/04/22 [History Last Taken 09/04/22] hydroxyzine HCl 50 mg tablet 100 mg PO QHS PRN Anxiety 09/04/22 [History Last Taken 09/02/22] insulin aspart U-100 100 unit/mL (3 mL) subcutaneous pen (Novolog Flexpen U-100 Insulin aspart) See Protocol subcut TID 09/04/22 [History Last Taken 09/04/22] naproxen 500 mg tablet 500 mg PO BID PRN Pain 09/04/22 [History Last Taken 08/31/22] semaglutide 1 mg/dose (4 mg/3 mL) subcutaneous pen injector (Ozempic) 1 mg subcut RIVERA DIABETES 09/04/22 [History Last Taken 09/01/22] Allergy/AdvReac Type Severity Reaction Status Date / Time clindamycin Allergy Hives Verified 09/04/22 15:48 erythromycin base Allergy Hives Verified 09/04/22 15:48 [From E-Mycin] vancomycin Allergy Hives Verified 09/04/22 15:48 Gadolinium-MRI Contrast AdvReac Other Verified 09/04/22 15:48 Medium [CONTRAST] Iodinated Contrast Media AdvReac NEEDS Verified 09/04/22 15:48 [CONTRASTS] FOLLOW-UP Surgical History History of appendectomy Social History (Updated 09/04/22 @ 19:[address] Gail Dyer MD) Smoking Status: Current every day smoker tobacco type: cigarettes alcohol intake: former substance use type: marijuana ROS Cardiovascular Cardiovascular: Reports systems reviewed and no addt'l complaints, except as documented and other Details: She denies myocardial infarction or chest pain Respiratory/Chest Respiratory/Chest: Reports systems reviewed and no addt'l complaints, except as documented Gastrointestinal Gastrointestinal: Denies change in bowel habits Integumentary Integumentary: Reports other Details: She claims to have multiple boils that occur and by her account spontaneously resolve. She does not give an etiology and claims that they are not related to needle sticks Neurologic Neurologic: Reports other Details: Denies history of stroke Hematologic/Lymphatic Hematologic/Lymphatic: Reports other Details: Denies history of DVT Physical Exam Const alert, oriented x3 and no apparent distress HEENT normocephalic Chest inspection of chest normal Resp normal respiratory effort Cardio Rate: regular rate Rhythm: regular rhythm GI GI Narrative: Abdomen is morbidly obese with a large overhanging pannus, left lower quadrant there is an extensive area of erythema that has been skin marked. Do not have exact measurements but its at least 10 to 15 cm in length. Centrally there is a area of epidermal lightest cyst with foul dark necrotic discharge and purulence with dark and necrotic skin and subcutaneous tissue Extremity no calf tenderness Neuro Neuro Narrative: Patient is aware of situation and place Lab / Micro Data Result Diagrams: 09/04/22 17:38 09/04/22 17:38 Labs: Laboratory Results - last 24 hr 09/04/22 17:10: POC Glucose 64 L 09/04/22 17:38: WBC 17.5 H, RBC 4.95, Hgb 14.2, Hct 43.3, MCV 87.5, MCH 28.7, MCHC 32.8, RDW Std Deviation 46.5 H, RDW Coeff of Brea 14.6, Plt Count 283, MPV 9.3, Immature Gran % (Auto) 0.400, Neut % (Auto) 65.8, Lymph % (Auto) 24.8, [place] % (Auto) 7.2, Eos % (Auto) 1.4, Baso % (Auto) 0.4, Absolute Neuts (auto) 11.5 H, Absolute Lymphs (auto) 4.34, Nucleated RBC % 0 09/04/22 17:38: PT 13.9, INR 1.1, APTT 29.4 09/04/22 17:38: Sodium 137, Potassium 3.7, Chloride 106, Carbon Dioxide 28.0, Anion Gap 3 L, BUN 11, Creatinine 0.76, Estim Creat Clear Calc 79.69, Est GFR (MDRD) Af Amer 104, Est GFR (MDRD) Non-Af 86, BUN/Creatinine Ratio 14.6, Glucose 68 L, Calcium 9.1, Total Bilirubin 0.50, AST 9 L, ALT 11 L, Alkaline Phosphatase 101, Total Protein 7.3, Albumin 2.9 L, Globulin 4.4 H, Albumin/Globulin Ratio 0.7 L 09/04/22 17:38: Lactic Acid 0.8 09/04/22 18:13: POC Glucose 68 L 09/05/22 00:24: POC Glucose 277 H Radiology Impression Abdomen/Pelvis CT 09/04/22 21:09 IMPRESSION: Findings compatible with cellulitis along the anterior-inferior pannus with ulceration at the left anterior margin suggestive of draining previous abscess. No evidence of non-draining subcutaneous abscess. Left ovarian 3.7 cm cyst or cystic mass, not significantly changed in size from ultrasound June 28, 2021. Nonemergent ultrasound follow-up however is recommended to better assess for new internal complexity. Mild bilateral perinephric stranding which is commonly senescent, increased from prior CT. Correlate with urine and there is clinical concern for pyelonephritis Electronically Signed: Jus Gonzalez MD at 22:54 EST ,
[2022-09-05 06:08] LABS: Bedside Glucose 132 mg/dL (74-106)
[2022-09-05 06:10] LABS: Absolute Lymphocyte Count 2.62 X10^3/uL (0.83-4.51); Absolute Neutrophil Count 9.7 X10^3/uL (2.0-7.7); Basophil# 0.05 X10^3/uL; Basophil% 0.4 % (0-1); Eosinophils% 2.2 % (0-5); Hematocrit 39.2 % (37-47); Hemoglobin 12.5 g/dL (12.0-15.0); Lymphocyte # 2.62 X10^3/ul (0.83-4.51); Lymphocyte % 19.1 % (19-41); Mean Corp Hgb Conc 31.9 g/dL (32-36); Mean Corpuscular Hgb 28.7 pg (27.0-32.0); Mean Corpuscular Volume 89.9 fL (81-99); Mean Platelet Vol. 9.1 fl (6.2-12.0); Monocyte% 7.3 % (0-10); NRBC Flagged by Analyzer 0 % (0-5); Neutrophil # 9.69 X10^3/uL (2.7-7.7); Neutrophil % 70.6 % (47-70); Platelet Count 259 K/mm3 (150-450); RBC Distribution Width CV 14.6 % (11.6-14.6); RBC Distribution Width SD 48.2 fl (35.1-43.9); Red Blood Count 4.36 M/mm3 (4.2-5.4); White Blood Count 13.7 K/mm3 (4.4-11.0)
[2022-09-05 06:47] LABS: ALB/GLOB Ratio 0.6 RATIO (0.9-2.4); AST(SGOT) 6 U/L (15-37); Alanine Aminotransfer ALT/SGPT 13 U/L (13-56); Albumin, Serum 2.3 g/dL (3.2-5.0); Alkaline Phosphatase 87 U/L (45-117); Anion Gap 3 (5-15); BUN 12 mg/dL (7-18); BUN/Creat Ratio 17.4 RATIO (10-20); Calcium,Total 8.3 mg/dL (8.5-10.1); Chloride 110 mmol/L (98-107); Creatinine, Serum 0.69 mg/dL (0.55-1.02); EST Glomerular Filtration Rate 96 mL/min (>60); Est Glom Filt Rate - Afr Amer 116 mL/min (>60); Estimated Creatinine Clearance 84.23 ml/min; Globulin 3.9 g/dL (2.2-4.2); Glucose 129 mg/dL (74-106); Potassium 3.9 mmol/L (3.5-5.1); Protein, Total 6.2 g/dL (6.4-8.2); Sodium Level 138 mmol/L (136-145)
[2022-09-05] MEDS: Gabapentin 600 MG Tablet PO ×2 (08:40→20:48)
--- NOTE | 2022-09-05 09:02 | WOUNDNOTE ---
wound photo: left lower abdomen
--- NOTE | 2022-09-05 09:03 | WOUNDNOTE ---
wound photo: right upper medial thigh
--- NOTE | 2022-09-05 10:08 | CON.PCM.ID_ITS ---
Assessment & Plan Assessment/Plan (1) Abdominal wall abscess: PLAN: Wound cx with staph aureus. Wbc improved. OR today. On doxy/zosyn. Will change doxy to linezolid for more reliable MRSA empiric coverage. Will stop trazodone to decrease risk serotonin syndrome as she is also on SSRI. Will follow, thank you (2) History of diabetes mellitus: HPI Consult Data Date of Consult: 09/05/22 HPI Narrative Reason for Consultation: abd wall abscess HPI Narrative: KATHRYN ESQUIVEL, is a 51 F who presented 09/04/22 with one week progressive lower abd pain, redness, swelling. Started as small pustule. Sx worsened, developed fever/chills, nausea, malaise. No recent abx. Came to ED, bedside I&D done, admitted on doxy/zosyn, seen by Dr. Haas, OR planned for today for I&D. Full ROS performed and neg except as noted above. FOR[facility]LY [facility] Medical History SEUN (acute kidney injury) Amputated toe of right foot Anxiety Chronic pain Chronic ulcer of right foot with fat layer exposed Depression Diabetes Diabetic foot ulcer Essential hypertension Fibromyalgia History of amputation of great toe Hyperlipidemia Hypothyroidism Meniere disease Obesity Obesity (BMI 30-39.9) Osteomyelitis Osteomyelitis of second toe of right foot Osteomyelitis of toe of right foot Presence of permanent central venous catheter Skin ulcer of left great toe with fat layer exposed Sleep apnea Smoker Type 2 diabetes mellitus with diabetic polyneuropathy Vascular catheter fitting or adjustment Vertigo Home Medications albuterol sulfate 90 mcg/actuation aerosol inhaler 2 puff inhalation Q4H PRN Sob &/Or Wheezing 08/30/19 [History Last Taken 11/08/20] atorvastatin 80 mg tablet 80 mg PO QHS cholesterol 08/30/19 [History Last Taken 09/03/22] duloxetine 60 mg capsule,delayed release 60 mg PO QHS DEPRESSION 03/21/20 [History Last Taken 09/03/22] multivitamin with minerals 1 tab PO DAILY SUPPLEMENT 03/21/20 [History Last Taken 09/04/22] ergocalciferol (vitamin D2) 1,250 mcg (50,000 unit) capsule 50,000 unit PO MO supplement 10/17/20 [History Last Taken 09/02/22] pantoprazole 20 mg tablet,delayed release 20 mg PO BID ACID REFLUX 11/11/20 [History Last Taken 09/04/22] losartan 50 mg tablet 50 mg PO DAILY BLOOD PRESSURE 12/08/20 [History Last Taken 09/04/22] gabapentin 600 mg tablet 600 mg PO BID NERVE PAIN 11/14/21 [History Last Taken 09/04/22] levothyroxine 75 mcg tablet (Levoxyl) 75 mcg PO DAILY THYROID 02/13/22 [History Last Taken 09/04/22] trazodone 100 mg tablet 100 mg PO QHS PRN Sleep 02/13/22 [History Last Taken 09/03/22] insulin glargine 100 unit/mL (3 mL) subcutaneous pen (Lantus Solostar U-100 Insulin) 52 unit subcut DAILY DIABETES 04/08/22 [History Last Taken 09/04/22] meclizine 25 mg tablet (Dramamine (meclizine)) 25 mg PO QHS DIZZINESS 05/16/22 [History Last Taken 09/03/22] blood sugar diagnostic (OneTouch Verio test strips) #100 ea 06/20/22 [Rx Last Taken Unknown] blood-glucose meter (OneTouch Verio Meter) #1 ea 06/20/22 [Rx Last Taken Unknown] flash glucose sensor (FreeStyle Gómez 2 Sensor kit) #2 ea 08/14/22 [Rx Last Taken Unknown] glimepiride 4 mg tablet 4 mg PO BID DIABETES 09/04/22 [History Last Taken 09/04/22] hydroxyzine HCl 50 mg tablet 100 mg PO QHS PRN Anxiety 09/04/22 [History Last Taken 09/02/22] insulin aspart U-100 100 unit/mL (3 mL) subcutaneous pen (Novolog Flexpen U-100 Insulin aspart) See Protocol subcut TID 09/04/22 [History Last Taken 09/04/22] naproxen 500 mg tablet 500 mg PO BID PRN Pain 09/04/22 [History Last Taken 08/31/22] semaglutide 1 mg/dose (4 mg/3 mL) subcutaneous pen injector (Ozempic) 1 mg subcut RIVERA DIABETES 09/04/22 [History Last Taken 09/01/22] Allergy/AdvReac Type Severity Reaction Status Date / Time clindamycin Allergy Hives Verified 09/04/22 15:48 erythromycin base Allergy Hives Verified 09/04/22 15:48 [From E-Mycin] vancomycin Allergy Hives Verified 09/04/22 15:48 Gadolinium-MRI Contrast AdvReac Other Verified 09/04/22 15:48 Medium [CONTRAST] Iodinated Contrast Media AdvReac NEEDS Verified 09/04/22 15:48 [CONTRASTS] FOLLOW-UP Surgical History History of appendectomy Social History (Updated 09/04/22 @ 19:[address] Gail Dyer MD) Smoking Status: Current every day smoker tobacco type: cigarettes alcohol intake: former substance use type: marijuana Physical Exam Const alert, oriented x3 and no apparent distress General Appearance: cooperative HEENT normocephalic and head/scalp atraumatic Eyes PERRL and EOMs intact bilaterally Neck supple and No nodes Resp normal air movement and clear to auscultation bilaterally Cardio regular rate and regular rhythm GI soft to palpation and non-distended GI Narrative: mild soreness Extremity General Extremity: Negative for edema Skin Skin Narrative: Reviewed photos. Large abd wound with surrounding cellulitis, small tender nodule/redness on R upper thigh Neuro CN's II-XII intact bilaterally Lab / Micro Data Attestation: I reviewed the patient's lab results. Result Diagrams: 09/05/22 05:50 09/05/22 05:50 Labs: Laboratory Results - last 24 hr 09/04/22 17:10: POC Glucose 64 L 09/04/22 17:38: WBC 17.5 H, RBC 4.95, Hgb 14.2, Hct 43.3, MCV 87.5, MCH 28.7, MCHC 32.8, RDW Std Deviation 46.5 H, RDW Coeff of Brea 14.6, Plt Count 283, MPV 9.3, Immature Gran % (Auto) 0.400, Neut % (Auto) 65.8, Lymph % (Auto) 24.8, [place] % (Auto) 7.2, Eos % (Auto) 1.4, Baso % (Auto) 0.4, Absolute Neuts (auto) 11.5 H , Absolute Lymphs (auto) 4.34, Nucleated RBC % 0 09/04/22 17:38: PT 13.9, INR 1.1, APTT 29.4 09/04/22 17:38: Sodium 137, Potassium 3.7, Chloride 106, Carbon Dioxide 28.0, Anion Gap 3 L, BUN 11, Creatinine 0.76, Estim Creat Clear Calc 79.69, Est GFR (MDRD) Af Amer 104, Est GFR (MDRD) Non-Af 86, BUN/Creatinine Ratio 14.6, Glucose 68 L, Calcium 9.1, Total Bilirubin 0.50, AST 9 L, ALT 11 L, Alkaline Phosphatase 101, Total Protein 7.3, Albumin 2.9 L, Globulin 4.4 H, Albumin/ Globulin Ratio 0.7 L 09/04/22 17:38: Lactic Acid 0.8 09/04/22 18:13: POC Glucose 68 L 09/05/22 00:24: POC Glucose 277 H 09/05/22 05:33: POC Glucose 132 H 09/05/22 05:50: WBC 13.7 H, RBC 4.36, Hgb 12.5, Hct 39.2, MCV 89.9, MCH 28.7, MCHC 31.9 L, RDW Std Deviation 48.2 H, RDW Coeff of Brea 14.6, Plt Count 259, MPV 9.1, Immature Gran % (Auto) 0.400, Neut % (Auto) 70.6 H, Lymph % (Auto) 19.1, [place] % (Auto) 7.3, Eos % (Auto) 2.2, Baso % (Auto) 0.4, Absolute Neuts (auto) 9.7 H, Absolute Lymphs (auto) 2.62, Nucleated RBC % 0 09/05/22 05:50: Sodium 138, Potassium 3.9, Chloride 110 H, Carbon Dioxide 25.0, Anion Gap 3 L, BUN 12, Creatinine 0.69, Estim Creat Clear Calc 84.23, Est GFR (MDRD) Af Amer 116, Est GFR (MDRD) Non-Af 96, BUN/Creatinine Ratio 17.4, Glucose 129 H, Calcium 8.3 L, Total Bilirubin 0.40, AST 6 L, ALT 13, Alkaline Phosphatase 87, Total Protein 6.2 L, Albumin 2.3 L, Globulin 3.9, Albumin/Globulin Ratio 0.6 L Micro: Microbiology 09/04/22 19:30 Wound Abcess - Abdominal Wound Culture - Preliminary Staphylococcus aureus Radiology Impression Abdomen/Pelvis CT 09/04/22 21:09 IMPRESSION: Findings compatible with cellulitis along the anterior-inferior pannus with ulceration at the left anterior margin suggestive of draining previous abscess. No evidence of non-draining subcutaneous abscess. Left ovarian 3.7 cm cyst or cystic mass, not significantly changed in size from ultrasound June 28, 2021. Nonemergent ultrasound follow-up however is recommended to better assess for new internal complexity. Mild bilateral perinephric stranding which is commonly senescent, increased from prior CT. Correlate with urine and there is clinical concern for pyelonephritis Electronically Signed: Jus Gonzalez MD at 22:54 EST ,
--- NOTE | 2022-09-05 10:25 | CASEMGMT ---
CHUCK JACK Face to Face with patient for initial transition planning/care coordination assessment. CHUCK JACK introduced self and role at [facility]. Patient lying in bed, alert and oriented. Patient willing to participate in assessment and is able to answer all questions appropriately. Care providers, pharmacy, and demographics verified. Patient wishes to discharge home, with possible HHC pending wound care. CM to provide patient with HHC list. Patient states she has no further needs or concerns at this time. CM to follow for discharge planning needs that may arise. PCP: Radha Specialists: [facility] organic section technical lead Preferred Pharmacy: [facility] Insurance: [facility] Prescription Benefit: yes Living Will/HPOA: none LNOK: mother, sister Living Arrangements: Patient lives alone in a first floor apartment with 6 steps and railing to enter the home. Patient states she is independent Transportation: Provide a ride DME/HHC: Patient states she has cane and walker at home. No previous HHC. Patient had been to [facility] in the past. CHUCK JACK discussed possible need for HHC for wound care at discharge, will monitor Disposition Plan: Patient to discharge home with follow-up plans in place. Will monitor for HHC at discharge pending surgery. Chica ARROYO, RN, CM
--- NOTE | 2022-09-05 10:58 | CASEMGMT ---
Addendum entered by Chica Wharton 09/05/22 15:25: Per [facility], they cannot accept pt as they will no longer be in-network with [facility] starting 09/29/21. CM to follow. Anjali WOODS CM Addendum entered by Chica Wharton 09/05/22 15:20: [facility] already declined pt. Anjali WOODS CM Addendum entered by Chica Wharton 09/05/22 15:14: This RN CM to room and pt states has picked the following HHC choices: [facility], [facility], [facility], and [facility]. C order placed for SN. Referral sent to all via [facility]. CM to follow. Anjali WOODS CM Original Note: This RN CM to room and pt provided list of HHC providers including quality and resource use data and consistent with pt's preferred geographic region, medical needs, and insurance network. CM to follow. Anjali WOODS CM
[2022-09-05] MEDS: 0.9% Normal Saline 1,000 ML 75 ML IV ×2 (11:19→21:15)
[2022-09-05 11:55] LABS: Bedside Glucose 89 mg/dL (74-106)
[2022-09-05] MEDS: Bupivacaine Mpf 0.5% 30 ML VIAL (13:26)
--- NOTE | 2022-09-05 13:30 | ABS_PTH ---
PATIENT: KATHRYN ESQUIVEL LOC: [facility] U#:[id number] AGE/SX: 51/F ROOM: [facility] RE09/04/[address]: Dr. Kelli Bean DO : 1970 BED: 1 DIS: 09/06/2022 SPEC #: [id number] RECD: 09/05/22 15:09 STATUS: GALILEO SZYMANSKI #: [id number] MARIE: 09/05/22 13:[address]: Roger Haas DEPT: SURGICAL PATHOLOGY RECD BY: Sally Bucio ENTERED: 09/06/22 08:38 SP TYPE: Abscess OTHR DR: MD Dr. Shirley Kulkarni MD Dr. Kathryn Lee, DO Dr. Robert D Cebul, MD Dr. Robert Leininger, MD Tissues: Abdominal wall, NOS Procedures: Surgery Specimen Level III Comments: @ Ordering doctor for SUIII edited from to @ jorge BUSCH at 09/06/22 1423 @ Submitting doctor edited from to @ jorge BUSCH at 09/06/22 1423 HEADER OPERATION: Debridement wound, LLQ abdomen, I & D right lower furuncle wound PRE-OP DIAGNOSIS: Abdominal wall abscess TISSUE SUBMITTED: Left lower quadrant abdomen abscess MICROSCOPIC DIAGNOSIS Left lower quadrant abdomen abscess: Extensive acute inflammation and abscess formation. YVETTE:jt 09/09/2022 MICROSCOPIC DESCRIPTION Slides are reviewed. GROSS DESCRIPTION Received in fixative is one container labeled with the patient's name and designated left lower quadrant abdomen abscess. The specimen consists of a piece of skin with underlying tissue measuring 5 x 4 cm and up to 3 cm in thickness. Also present in the container is a piece of skin with underlying tissue measuring 6.5 x 4 cm and up to 2.5 cm in thickness. A central area is noted measuring 6 cm in greatest dimension. Also present in the container is a piece of skin measuring 3.5 x 0.5 x 0.3 cm. Sections do not reveal any mass lesion. Backhoe Operator sections are submitted in three cassettes. / YVETTE:jt 09/06/2022 TC:2 CPT: 92589
--- NOTE | 2022-09-05 13:40 | OP.PCM_ITS ---
Report of Operation Date of Procedure: 09/05/22 Pre-Operative Diagnosis: Left lower quadrant abdominal wall abscess with cellul itis. Furuncle right lower quadrant Post-Operative Diagnosis: Same Surgery/Procedure Performed:: Debridement left lower quadrant abdominal wall abscess with 5 x 6 cm excision. Incision and drainage right lower quadrant furuncle Description of Surgical Findings:: Timeout informed consent was obtained. 51-year-old female was taken to the operating placed on the table underwent general anesthesia she was placed in Trendelenburg and became apparent that in the right lower quadrant there was a 1 cm diameter erythematous furuncle. I presume that the left lower quadrant abscess had originated from such a finding. Patient was already asleep however felt that it was pertinent to provide some local control of this right lower quadrant area so it would not progress to the same problem that the left lower quadrant was. We prepped the low abdomen with Betadine. She was already on therapeutic antibiotics. Simply used a 15 blade to incise the furuncle in the right lower quadrant and then we applied dry dressings. The left lower quadrant abscess was elliptically sharply excised down into the subcutaneous tissues. Fascia did not need to be involved. An approximately 5 x 6 cm elliptical excision of skin and fat and abscess was performed. Hemostasis was obtained with electrocautery. The excision had been performed sharply with scalpel dissection. Betadine moistened gauze was placed followed by ABD dressings. The periincisional area was anesthetized with 30 cc of 0.5% Marcaine. She tolerated procedure well Specimen is left lower quadrant necrotic skin abscess and subcutaneous fat. Drains none. Blood loss minimal. Roger Haas M.D., F.A.C.S. Surgeon: Roger Haas Type of Anesthesia: General and Local Anesthesiologist: Rivera Espinal
--- NOTE | 2022-09-05 13:42 | PN.HOSP_ITS ---
Subjective Subjective Plan is for OR later today. Appears to has history of staff aureus. Doxycycline was changed to linezolid and trazodone discontinued to decrease risk of serotonin syndrome with linezolid coverage. Patient complains of ongoing pain. She understands that she will have a postoperative wound VAC. Patient also reports that she has had elevated blood sugars but is following with endocrinology and titrations of her insulin regimen has been made and her blood sugars are slowly improving. Objective Data Objective Data Vital Signs: Vital Signs Temp Pulse Resp BP Pulse Ox O2 Del Method O2 Flow Rate 97.7 F L 68 16 114/65 92 Room Air 2 09/05/22 11:25 09/05/22 11:25 09/05/22 11:25 09/05/22 11:25 09/05/22 11:25 09/05/22 11:25 09/04/22 20:00 Oxygen Flow Rate (L/min) 2 Oxygen Delivery Method Room Air Weight: 109 kg Body Mass Index (BMI) 41.2 Intake & Output: Intake and Output for Last 24 Hours 09/03/22 09/04/22 09/05/22 23:59 23:59 23:59 Intake Total 1002.5 / 1002.5 1692.5 / 1692.5 Balance 1002.5 / 1002.5 1692.5 / 1692.5 Lab / Micro Data Result Diagrams: 09/05/22 05:50 09/05/22 05:50 Labs: Laboratory Results - last 24 hr 09/04/22 17:10: POC Glucose 64 L 09/04/22 17:38: WBC 17.5 H, RBC 4.95, Hgb 14.2, Hct 43.3, MCV 87.5, MCH 28.7, MCHC 32.8, RDW Std Deviation 46.5 H, RDW Coeff of Brea 14.6, Plt Count 283, MPV 9.3, Immature Gran % (Auto) 0.400, Neut % (Auto) 65.8, Lymph % (Auto) 24.8, [place] % (Auto) 7.2, Eos % (Auto) 1.4, Baso % (Auto) 0.4, Absolute Neuts (auto) 11.5 H, Absolute Lymphs (auto) 4.34, Nucleated RBC % 0 09/04/22 17:38: PT 13.9, INR 1.1, APTT 29.4 09/04/22 17:38: Sodium 137, Potassium 3.7, Chloride 106, Carbon Dioxide 28.0, Anion Gap 3 L, BUN 11, Creatinine 0.76, Estim Creat Clear Calc 79.69, Est GFR (MDRD) Af Amer 104, Est GFR (MDRD) Non-Af 86, BUN/Creatinine Ratio 14.6, Glucose 68 L, Calcium 9.1, Total Bilirubin 0.50, AST 9 L, ALT 11 L, Alkaline Phosphatase 101, Total Protein 7.3, Albumin 2.9 L, Globulin 4.4 H, Albumin/Globulin Ratio 0.7 L 09/04/22 17:38: Lactic Acid 0.8 09/04/22 18:13: POC Glucose 68 L 09/05/22 00:24: POC Glucose 277 H 09/05/22 05:33: POC Glucose 132 H 09/05/22 05:50: WBC 13.7 H, RBC 4.36, Hgb 12.5, Hct 39.2, MCV 89.9, MCH 28.7, MCHC 31.9 L, RDW Std Deviation 48.2 H, RDW Coeff of Brea 14.6, Plt Count 259, MPV 9.1, Immature Gran % (Auto) 0.400, Neut % (Auto) 70.6 H, Lymph % (Auto) 19.1, [place] % (Auto) 7.3, Eos % (Auto) 2.2, Baso % (Auto) 0.4, Absolute Neuts (auto) 9.7 H, Absolute Lymphs (auto) 2.62, Nucleated RBC % 0 09/05/22 05:50: Sodium 138, Potassium 3.9, Chloride 110 H, Carbon Dioxide 25.0, Anion Gap 3 L, BUN 12, Creatinine 0.69, Estim Creat Clear Calc 84.23, Est GFR (MDRD) Af Amer 116, Est GFR (MDRD) Non-Af 96, BUN/Creatinine Ratio 17.4, Glucose 129 H, Calcium 8.3 L, Total Bilirubin 0.40, AST 6 L, ALT 13, Alkaline Phosphatase 87, Total Protein 6.2 L, Albumin 2.3 L, Globulin 3.9, Albumin/Ivory bulin Ratio 0.6 L 09/05/22 11:23: POC Glucose 89 Micro: Microbiology 09/04/22 19:30 Wound Abcess - Abdominal Gram Stain - Final 09/04/22 19:30 Wound Abcess - Abdominal Wound Culture - Preliminary Staphylococcus aureus Radiography Diagnostic Testing: Radiology Impression Abdomen/Pelvis CT 09/04/22 21:09 IMPRESSION: Findings compatible with cellulitis along the anterior-inferior pannus with ulceration at the left anterior margin suggestive of draining previous abscess. No evidence of non-draining subcutaneous abscess. Left ovarian 3.7 cm cyst or cystic mass, not significantly changed in size from ultrasound June 28, 2021. Nonemergent ultrasound follow-up however is recommended to better assess for new internal complexity. Mild bilateral perinephric stranding which is commonly senescent, increased from prior CT. Correlate with urine and there is clinical concern for pyelonephritis Electronically Signed: Jus Gonzalez MD at 22:54 EST Reading Location ID and State: [facility] / [place] Tel , Service support , Physical Exam Const alert, oriented x3, no apparent distress and well nourished Constitutional Narrative: Morbidly obese, middle-aged, white female lying in bed, sleeping at the time of my exam however awakens with tactile stimulus, appears nontoxic HEENT head/scalp atraumatic and moist oral mucous membranes HEENT Narrative: Dentition is poor, Mallampati is 3, no thrush Head and Scalp: normocephalic Resp normal respiratory effort and no retractions Auscultation: Negative for crackles, rhonchi or wheezes Cardio regular rate, regular rhythm, S1 normal heart sound, S2 normal heart sound, no murmurs, no rub, no gallops and no clicks GI soft to palpation GI Narrative: Large necrotic appearing wound at the mid abdominal level approximately 2 to 3 inches lateral to the umbilicus on the left side, draining purulent material with surrounding erythema, tender to palpation, bowel sounds are normal active, no distention Palpation: tender Extremity no clubbing, cyanosis or edema Extremity Narrative: Multiple toes missing off of right foot, hypersensitive from neuropathy, no cyanosis or clubbing Skin Skin Narrative: Abdominal wound as noted above Neuro oriented x3, CN's II-XII intact bilaterally and moves all extremities Neuro Narrative: Peripheral neuropathy noted Speech: speech normal Psych affect normal Psych Narrative: Good eye contact, appropriate interaction Assessment & Plan Assessment/Plan (1) Abdominal wall abscess: (2) Leukocytosis: PLAN: Plan Abdominal wall abscess -OR later this afternoon for debridement -Anticipate VAC will be required at discharge -Continue antibiotics with change of doxycycline to linezolid for improved MRSA coverage -Trazodone on hold while on linezolid to avoid serotonin syndrome -Cultures are pending -Patient with recurrent previous staph aureus infections and will therefore assess with nasal swab and nasal Bactroban for eradication if positive -General surgery/ID consulted-appreciate input DM-2 uncontrolled -Per endocrinology documentation on 08/14/2022-most recent hemoglobin A1c on 06/20/2022 was 8.6 -Patient with history of noncompliance especially with long-acting -Restart home Lantus at 30 units and titrate up as needed -Baseline Lantus dose of 52 units daily -Continue sliding scale -Continue Accu-Cheks -Hold home glimepiride -Hold home Ozempic Hyperlipidemia -Continue home atorvastatin Diabetic neuropathy -Continue home gabapentin Hypertension -Continue home losartan Hypothyroidism -Continue home levothyroxine GERD -Continue home Protonix Vitamin D deficiency -Continue home ergocalciferol Depression/anxiety -Continue home meds Morbid obesity -BMI 41.2 -Recommend weight loss next-complicates treatment, prognosis, outcomes DVT prophylaxis -Start enoxaparin Charges/Coding Visit Charges Inpatient E&M: 85177 [facility] Hosp L2
[2022-09-05 13:51] LABS: M R Staph aureus DNA By PCR Negative (Negative)
[2022-09-05 13:52] LABS: Probe Check PASS; Specimen Processing Control PASS
[2022-09-05 14:31] LABS: Bedside Glucose 62 mg/dL (74-106)
[2022-09-05] MEDS: Linezolid 600 MG Tablet PO ×2 (14:46→20:49)
[2022-09-05 17:30] LABS: Bedside Glucose 183 mg/dL (74-106)
[2022-09-05] MEDS: Acetaminophen 325 MG Tablet 650 MG PO (18:40)
[2022-09-05] MEDS: Insulin Glargine-YFGN 100 UNIT/ML Pen 30 UNIT SC (20:48)
[2022-09-05] MEDS: Pantoprazole Sodium 20 MG Tablet PO (20:48)
[2022-09-05] MEDS: DULoxetine Hcl 60 MG Capsule PO (20:48)
[2022-09-05] MEDS: Atorvastatin Calcium 80 MG Tablet PO (20:48)
[2022-09-05] MEDS: oxyCODONE 5 MG Tablet PO (20:48)
[2022-09-05] MEDS: Meclizine HCl 25 MG Tablet PO (20:49)
[2022-09-06] MEDS: Insulin Lispro 100 UNIT/ML INSULN.PEN SC ×3 (00:02→11:04)
[2022-09-06 00:20] LABS: Bedside Glucose 196 mg/dL (74-106)
[2022-09-06 03:21] VITALS: BP 130/77; PULSE 71; RESP 18; TEMP 36.4; O2SAT 92
[2022-09-06] MEDS: Acetaminophen 325 MG Tablet 650 MG PO (05:38)
[2022-09-06] MEDS: Levothyroxine 75 MCG Tablet PO (05:39)
--- NOTE | 2022-09-06 06:06 | PCM.PN.SRG ---
Subjective Subjective Patient notes mild soreness left lower abdomen but well tolerable. Objective Data Objective Data Vital Signs: Vital Signs Temp Pulse Resp BP Pulse Ox O2 Del Method O2 Flow Rate 97.6 F L 71 18 130/77 H 92 Room Air 2 09/06/22 03:21 09/06/22 03:21 09/06/22 03:21 09/06/22 03:21 09/06/22 03:21 09/06/22 03:22 09/05/22 14:51 Oxygen Flow Rate (L/min) 2 Oxygen Delivery Method Room Air Weight: 240 lb 4.862 oz Body Mass Index (BMI) 41.2 Intake & Output: Intake and Output for Last 24 Hours 09/04/22 09/05/22 09/06/22 23:59 23:59 23:59 Intake Total 1002.5 / 1002.5 2887.5 / 2887.5 50 / 50 Output Total Balance 1002.5 / 1002.5 2877.5 / 2877.5 50 / 50 Lab / Micro Data Result Diagrams: 09/05/22 05:50 09/05/22 05:50 Labs: Laboratory Results - last 24 hr 09/05/22 05:33: POC Glucose 132 H 09/05/22 05:50: WBC 13.7 H, RBC 4.36, Hgb 12.5, Hct 39.2, MCV 89.9, MCH 28.7, MCHC 31.9 L, RDW Std Deviation 48.2 H, RDW Coeff of Brea 14.6, Plt Count 259, MPV 9.1, Immature Gran % (Auto) 0.400, Neut % (Auto) 70.6 H, Lymph % (Auto) 19.1, [place] % (Auto) 7.3, Eos % (Auto) 2.2, Baso % (Auto) 0.4, Absolute Neuts (auto) 9.7 H, Absolute Lymphs (auto) 2.62, Nucleated RBC % 0 09/05/22 05:50: Sodium 138, Potassium 3.9, Chloride 110 H, Carbon Dioxide 25.0, Anion Gap 3 L, BUN 12, Creatinine 0.69, Estim Creat Clear Calc 84.23, Est GFR (MDRD) Af Amer 116, Est GFR (MDRD) Non-Af 96, BUN/Creatinine Ratio 17.4, Glucose 129 H, Calcium 8.3 L, Total Bilirubin 0.40, AST 6 L, ALT 13, Alkaline Phosphatase 87, Total Protein 6.2 L, Albumin 2.3 L, Globulin 3.9, Albumin/Globulin Ratio 0.6 L 09/05/22 08:35: MRSA (PCR) Negative 09/05/22 11:23: POC Glucose 89 09/05/22 14:06: POC Glucose 62 L 09/05/22 16:53: POC Glucose 183 H 09/06/22 00:00: POC Glucose 196 H Micro: Microbiology 09/04/22 19:30 Wound Abcess - Abdominal Gram Stain - Final 09/04/22 19:30 Wound Abcess - Abdominal Wound Culture - Preliminary Staphylococcus aureus Assessment & Plan Assessment/Plan (1) Abdominal wall abscess: (2) Abdominal wall cellulitis: PLAN: Plan I anticipate wound VAC application to the left lower quadrant wound today. Based upon findings at surgery I would anticipate likely discharge today. Anticipate office follow-up weekly for wound VAC care. Anticipate possible future split thickness skin grafting to the left lower abdomen to facilitate resolution. Roger Haas M.D., F.A.C.S.
--- NOTE | 2022-09-06 06:07 | DCINST_ITS ---
Discharge Instructions Dressing / Incision Additional Dressing/Incision Instructions:: Wound VAC care and management as described per wound care nursing. Follow Up Care Please Follow Up With: Keke Hernandez PA-C When: Office follow-up once weekly for assistance with wound VAC care and further surgical management [phone] Test Results: Test results from this visit will be discussed in further detail at your follow- up appointment, if applicable. Discharge Plan Admission Admit Date/Time: 09/04/22 18:57 Attending Provider: Kelli Baen Primary Care Provider: Shirley Garcia Consulting Providers: Gail Dyer ; Roger Haas ; Roger Lorenzo Discharge Orders/Prescriptions Prescriptions: No Action gabapentin 600 mg tablet 600 mg PO BID levothyroxine [Levoxyl] 75 mcg tablet 75 mcg PO DAILY meclizine [Dramamine (meclizine)] 25 mg tablet 25 mg PO QHS (DME) blood-glucose meter [OneTouch Verio Meter] Misc See Rx Instructions .Route Qty: 1 0RF Rx Instructions: As directed (DME) OneTouch Verio test strips Strip See Rx Instructions .Route Qty: 100 5RF Rx Instructions: 3x/day (DME) FreeStyle Gómez 2 Sensor Kit See Rx Instructions .Route Qty: 2 5RF Rx Instructions: As directed atorvastatin 80 MG tablet 80 mg PO QHS albuterol sulfate 1 INHALER inhaler 2 puff inhalation Q4H PRN (Reason: Sob &/Or Wheezing) multivitamin with minerals 1 EACH tablet 1 tab PO DAILY duloxetine 60 MG capsule,delayed release(DR/EC) 60 mg PO QHS ergocalciferol (vitamin D2) 50,000 UNIT capsule 50,000 unit PO MO pantoprazole 20 MG tablet 20 mg PO BID losartan 50 MG tablet 50 mg PO DAILY trazodone 100 mg tablet 100 mg PO QHS PRN (Reason: Sleep) insulin glargine [Lantus Solostar U-100 Insulin] 100 unit/mL (3 mL) insulin pen 52 unit subcut DAILY hydroxyzine HCl 50 mg tablet 100 mg PO QHS PRN (Reason: Anxiety) naproxen 500 mg tablet 500 mg PO BID PRN (Reason: Pain) glimepiride 4 mg tablet 4 mg PO BID insulin aspart U-100 [Novolog Flexpen U-100 Insulin] 100 unit/mL (3 mL) insulin pen See Protocol subcut TID Protocol: 6. Sliding Scale Insulin Custom Condition: mg/dl range Dose/Route: Number of Units Protocol Text: Custom Sliding Scale Ozempic 1 mg/dose (4 mg/3 mL) pen injector 1 mg subcut RIVERA Referrals / Follow Up: Shirley Garcia MD [Primary Care Provider] -
[2022-09-06 07:01] LABS: Bedside Glucose 276 mg/dL (74-106)
[2022-09-06 07:13] LABS: Absolute Lymphocyte Count 2.44 X10^3/uL (0.83-4.51); Basophil# 0.06 X10^3/uL; Basophil% 0.6 % (0-1); Eosinophil# 0.27 X10^3/uL; Eosinophils% 2.6 % (0-5); Hematocrit 43.3 % (37-47); Hemoglobin 12.7 g/dL (12.0-15.0); Lymphocyte # 2.44 X10^3/ul (0.83-4.51); Lymphocyte % 23.6 % (19-41); Mean Corp Hgb Conc 29.3 g/dL (32-36); Mean Corpuscular Hgb 29.1 pg (27.0-32.0); Mean Corpuscular Volume 99.1 fL (81-99); Mean Platelet Vol. 9.7 fl (6.2-12.0); Monocyte# 0.57 X10^3/uL; Monocyte% 5.5 % (0-10); NRBC Flagged by Analyzer 0 % (0-5); Neutrophil # 6.96 X10^3/uL (2.7-7.7); Neutrophil % 67.1 % (47-70); Platelet Count 289 K/mm3 (150-450); RBC Distribution Width CV 14.8 % (11.6-14.6); RBC Distribution Width SD 54.2 fl (35.1-43.9); Red Blood Count 4.37 M/mm3 (4.2-5.4); White Blood Count 10.4 K/mm3 (4.4-11.0)
[2022-09-06 07:39] LABS: Anion Gap 3 (5-15); BUN 16 mg/dL (7-18); Calcium,Total 8.3 mg/dL (8.5-10.1); Chloride 108 mmol/L (98-107); Creatinine, Serum 0.76 mg/dL (0.55-1.02); EST Glomerular Filtration Rate 85 mL/min (>60); Est Glom Filt Rate - Afr Amer 103 mL/min (>60); Estimated Creatinine Clearance 76.47 ml/min; Glucose 246 mg/dL (74-106); Magnesium 2.3 mg/dL (1.6-2.6); Phosphorus 2.9 mg/dL (2.5-4.9); Sodium Level 136 mmol/L (136-145)
--- NOTE | 2022-09-06 08:55 | WOUNDNOTE ---
Home VAC approved. awaiting home health care for dressing changes.
[2022-09-06 09:00] VITALS: BP 139/80; PULSE 72; RESP 16; TEMP 36.4; O2SAT 93
[2022-09-06 09:04] VITALS: BP 139/80; PULSE 72; RESP 16; TEMP 36.4; O2SAT 93
[2022-09-06] MEDS: Linezolid 600 MG Tablet PO (09:05)
[2022-09-06] MEDS: Pantoprazole Sodium 20 MG Tablet PO (09:05)
[2022-09-06] MEDS: Multivitamins,Ther W-Minerals Tablet 1 TABLET PO (09:05)
[2022-09-06] MEDS: Gabapentin 600 MG Tablet PO (09:05)
--- NOTE | 2022-09-06 10:32 | WOUNDNOTE ---
Home VAC applied. Pt tolerated wound VAC application well. reviewed alarms, etc. with patient. pt aware to bring wound vac dressing to office appt. pt very appreciative of care.
--- NOTE | 2022-09-06 10:51 | WOUNDNOTE ---
wound photo: left lower abdomen
--- NOTE | 2022-09-06 10:51 | WOUNDNOTE ---
wound photo: right lower abdomen
--- NOTE | 2022-09-06 11:02 | CASEMGMT ---
Addendum entered by Chica Wharton 09/06/22 11:11: Call from Elly pt's [facility], and she is updated on d/c plan. Anjali WOODS CM Original Note: Pt updated on all denials from [facility] and states no preference for [facility] as long as she can 'get out of here to go see my Maximino(pt's 1yo dog).' Referral to [facility] via [facility]. Per Madhuri at [facility], they can accept pt and do SOC 09/08/22. Awaiting ID c/s for antibx recommendations. Pt updated on all, voices understanding. CM to follow for any further [facility] responses and antibx. Anjali WOODS CM
[2022-09-06] MEDS: Mupirocin Ointment 22gm Tube 1 APPLIC NASAL (11:05)
--- NOTE | 2022-09-06 11:18 | PCM.DC.SUM ---
Providers Date of Admission: 09/04/22 Date of Discharge: 09/06/22 Primary Care Physician: Dr. Shirley Garcia MD Consultations 09/04/22 20:13 Consult: General Surgery Routine Consulting Provider: Roger Haas Reason for Consult: Anterior abdominal wall abscess EMERGENT Consult: No Notified: Yes Date Notified: 09/04/22 Time Notified: 19:29 Method of Notification: Verbal Consult: Infectious Disease Routine Consulting Provider: oRger Lorenzo Reason for Consult: Anterior abdominal wall abscess EMERGENT Consult: No Notified: Yes Date Notified: 09/05/22 Time Notified: 08:03 Method of Notification: Text Consult: Onc/Wound/barrel lathe operator outside Routine Comment: 09/05/22 04:45 Consult: Onc/Wound/barrel lathe operator outside Routine Comment: Reason for Consult:: Cellulitis, left lower quadrant abdominal wound, future wound VAC Reason For Visit: ABCESS Diagnosis Discharge Diagnosis (1) Abdominal wall abscess: Status: Acute Code(s): L02.211 - Cutaneous abscess of abdominal wall (2) Abdominal wall cellulitis: Status: Acute Code(s): L03.311 - Cellulitis of abdominal wall Medications at Discharge Home Medications albuterol sulfate 90 mcg/actuation aerosol inhaler 2 puff inhalation Q4H PRN Sob &/Or Wheezing 08/30/19 atorvastatin 80 mg tablet 80 mg PO QHS cholesterol 08/30/19 duloxetine 60 mg capsule,delayed release 60 mg PO QHS DEPRESSION 03/21/20 multivitamin with minerals 1 tab PO DAILY SUPPLEMENT 03/21/20 ergocalciferol (vitamin D2) 1,250 mcg (50,000 unit) capsule 50,000 unit PO MO supplement 10/17/20 pantoprazole 20 mg tablet,delayed release 20 mg PO BID ACID REFLUX 11/11/20 losartan 50 mg tablet 50 mg PO DAILY BLOOD PRESSURE 12/08/20 gabapentin 600 mg tablet 600 mg PO BID NERVE PAIN 11/14/21 levothyroxine 75 mcg tablet (Levoxyl) 75 mcg PO DAILY THYROID 02/13/22 trazodone 100 mg tablet 100 mg PO QHS PRN Sleep 02/13/22 insulin glargine 100 unit/mL (3 mL) subcutaneous pen (Lantus Solostar U-100 Insulin) 52 unit subcut DAILY DIABETES 04/08/22 meclizine 25 mg tablet (Dramamine (meclizine)) 25 mg PO QHS DIZZINESS 05/16/22 blood sugar diagnostic (OneTouch Verio test strips) #100 ea 06/20/22 blood-glucose meter (OneTouch Verio Meter) #1 ea 06/20/22 flash glucose sensor (FreeStyle Gómez 2 Sensor kit) #2 ea 08/14/22 glimepiride 4 mg tablet 4 mg PO BID DIABETES 09/04/22 hydroxyzine HCl 50 mg tablet 100 mg PO QHS PRN Anxiety 09/04/22 insulin aspart U-100 100 unit/mL (3 mL) subcutaneous pen (Novolog Flexpen U-100 Insulin aspart) See Protocol subcut TID 09/04/22 naproxen 500 mg tablet 500 mg PO BID PRN Pain 09/04/22 semaglutide 1 mg/dose (4 mg/3 mL) subcutaneous pen injector (Ozempic) 1 mg subcut RIVERA DIABETES 09/04/22 doxycycline monohydrate 100 mg capsule 100 mg PO BID #14 caps 09/06/22 mupirocin 2 % topical ointment 1 applic NASAL BID #22 grams 09/06/22 oxycodone 5 mg tablet 5 mg PO Q4H PRN PRN Pain Score 4-10 7 days #42 tabs 09/06/22 Hospital Course Operations - (Debridement of left lower quadrant abdominal wall abscess with 5 x 6 cm excision and I&D of right lower quadrant for nuchal) Procedures None Summary of Care Provided Minutes Spent on Discharge: 36 Hospital Course: Ms. Minaya is a 51-year-old white female who presented to emergency department [facility] on 09/04/2022 with a left abdominal abscess that had been present for a week. She reported that it started with some anterior abdominal swelling and erythema and started as a small pimple but had progressively gotten larger and started to drain. She admitted to having associated nausea and vomiting as well as subjective fever and chills. Upon presentation vitals in the emergency department demonstrated ?blood pressure 143/79, heart rate of 100, speech rate 18, temperature 97.1 F, oxygen sats of 93% on room air.? WBC count is 17.5, hemoglobin 14.2, platelet count 283, INR 1.1, CMP is unremarkable. An ultrasound that was done at the bedside by the emergency department physician showed an abscess that extended about 1.5 cm anterior to the fascia and a bedside I&D was done. CT of the abdomen pelvis was also performed which demonstrated findings compatible with cellulitis along the anterior inferior pannus with ulceration at the left anterior margin suggestive of draining previous abscess as well as a left ovarian cyst that had not changed in size from previous ultrasound in May 2021 and mild bilateral perinephritic stranding. The patient had no urinary symptoms. She was seen by Dr. Haas from general surgery on the morning after admission and was taken to the OR on the same date for debridement of the left lower quadrant abdominal abscess with a 5 x 6 cm excision as well as an I&D of a right lower quadrant furuncle. Blood cultures were obtained but pending at the time of discharge we will follow these after discharge however I doubt the patient is bacteremic given her clinical presentation. Initial cultures from the emergency department show MRSA. It appears that the patient has had recurrent MRSA infections and wounds so we will empirically treat her for colonization with nasal Bactroban for the next 5 days. A prescription was sent at discharge for this. Infectious disease was consulted for recommendations for antibiotics at the time of discharge. Their recommendation was for doxycycline 100 mg po BID for 7 more days. Postoperatively wound VAC was placed and the patient will follow-up with general surgery's office weekly and it is expected that she may need grafting once healing starts to occur. Prescriptions for antibiotics as well as pain medicine were sent to her pharmacy. Home health was set up as well. The patient was discharged home in stable condition on 09/06/2022. CT above incidentally did note a left ovarian cyst that was stable however they did recommend follow-up ultrasound be performed not emergently as an outpatient. I will leave this to her primary care physician for follow-up. We recommend follow-up with her primary care physician within the next 2 weeks as well as follow-up with general surgery in the next week. She was also instructed to follow-up with her director information security as scheduled and we did discuss the importance of improved glycemic control in the prevention of recurrent infections. Her most recent hemoglobin A1c was 8.6 on 06/20/2022 and insulin adjustments had been made. Discharge diagnoses: Abdominal wall abscess/cellulitis Left ovarian cyst DM-2 uncontrolled Hyperlipidemia Diabetic neuropathy Hypertension Hypothyroidism GERD Vitamin D deficiency Morbid obesity Depression Anxiety Physical Exam Narrative Patient states she overall feels okay. Having some intermittent pain more with manipulation of the wound. Anxious to go home if possible. Const alert, oriented x3, no apparent distress and well nourished Constitutional Narrative: Morbidly obese, middle-aged, white female lying in bed, nontoxic, wound nurse at bedside placing wound VAC General Appearance: cooperative, comfortable, well kempt and well developed Orientation / Consciousness: awake, oriented to person, oriented to place and oriented to time Exam Limitations: no limitations Nutritional Appearance: morbidly obese HEENT normocephalic, head/scalp atraumatic, hearing grossly normal bilaterally and moist oral mucous membranes HEENT Narrative: Mallampati 3, no thrush Eyes PERRL, EOMs intact bilaterally and conjunctivae normal Eyes Narrative: No scleral icterus Neck no lymphadenopathy and supple Neck Narrative: Trachea midline, neck is short and thick, no thyroid enlargement Resp normal respiratory effort, no retractions, no use of accessory muscles and clear to auscultation bilaterally Auscultation: Negative for crackles, rhonchi or wheezes Cardio regular rate, regular rhythm, S1 normal heart sound, S2 normal heart sound, no murmurs, no rub, no gallops and no clicks GI GI Narrative: Postoperative wound with subcutaneous fat exposed, margins appear clean with good hemostasis, mild tenderness around area, wound VAC being placed at the time of my exam, no distention, abdomen is soft, bowel sounds are normal Palpation: tender Extremity no clubbing, cyanosis or edema Extremity Narrative: Multiple toes missing off of right foot, hypersensitive from neuropathy, no cyanosis or clubbing Skin skin turgor normal and no jaundice Skin Narrative: Abdominal wound as noted above Neuro oriented x3, CN's II-XII intact bilaterally and moves all extremities Neuro Narrative: Peripheral neuropathy noted with altered sensation at bilateral distal lower extremities Speech: speech normal Psych affect normal Psych Narrative: Good eye contact, appropriate interaction Weight / BMI Weight Weight: 109 kg Body Mass Index (BMI) 41.2 ABG / Lab / Microbiology Data Result Diagrams: 09/06/22 06:20 09/06/22 06:20 Laboratory: Laboratory Results - last 24 hr 09/05/22 08:35: MRSA (PCR) Negative 09/05/22 11:23: POC Glucose 89 09/05/22 14:06: POC Glucose 62 L 09/05/22 16:53: POC Glucose 183 H 09/06/22 00:00: POC Glucose 196 H 09/06/22 05:36: POC Glucose 276 H 09/06/22 06:20: WBC 10.4, RBC 4.37, Hgb 12.7, Hct 43.3, MCV 99.1 H D, MCH 29.1, MCHC 29.3 L D, RDW Std Deviation 54.2 H, RDW Coeff of Brea 14.8 H, Plt Count 289, MPV 9.7, Immature Gran % (Auto) 0.600, Neut % (Auto) 67.1, Lymph % (Auto) 23.6, Edgar % (Auto) 5.5, Eos % (Auto) 2.6, Baso % (Auto) 0.6, Absolute Neuts (auto) 7.0, Absolute Lymphs (auto) 2.44, Nucleated RBC % 0 09/06/22 06:20: Sodium 136, Potassium 4.0, Chloride 108 H, Carbon Dioxide 25.0, Anion Gap 3 L, BUN 16, Creatinine 0.76, Estim Creat Clear Calc 76.47, Est GFR (MDRD) Af Amer 103, Est GFR (MDRD) Non-Af 85, BUN/Creatinine Ratio 21.0 H, Glucose 246 H, Calcium 8.3 L, Phosphorus 2.9, Magnesium 2.3 Microbiology: Microbiology 09/04/22 19:30 Wound Abcess - Abdominal Gram Stain - Final 09/04/22 19:30 Wound Abcess - Abdominal Wound Culture - Final Meth. resistant Staph. aureus D/C Instructions Discharge Diet: 1800 Calorie Control Diet Discharge Activity: Return to Normal Activity Additional Dressing/Incision Instructions: Wound VAC care and management as described per wound care nursing. Please Follow Up With: Keke Hernandez PA-C When: Office follow-up once weekly for assistance with wound VAC care and further surgical management [phone] Meaningful Use Info Meaningful Use Diagnoses (Choose all that apply): None applicable Discharge Plan Admission Admit Date/Time: 09/04/22 18:57 Primary Reason for Your Visit: Abdominal abscess Attending Provider: Kelli Bean Primary Care Provider: Shirley Garcia Consulting Providers: Gail Dyer ; Roger Haas ; Roger Lorenzo Discharge Orders/Prescriptions Prescriptions: New mupirocin 2 % Ointment 1 applic NASAL BID Qty: 22 0RF Protocol: *Topical Application Instructions APPLICATION INSTRUCTIONS: nasal Rx Instructions: Apply intranasally 2 times daily for 5 days oxycodone 5 mg Tablet 5 mg PO Q4H PRN PRN (Reason: Pain Score 4-10) 7 Days Qty: 42 0RF doxycycline monohydrate 100 mg capsule 100 mg PO BID Qty: 14 0RF Continued gabapentin 600 mg tablet 600 mg PO BID levothyroxine [Levoxyl] 75 mcg tablet 75 mcg PO DAILY meclizine [Dramamine (meclizine)] 25 mg tablet 25 mg PO QHS (DME) blood-glucose meter [OneTouch Verio Meter] Misc See Rx Instructions .Route Qty: 1 0RF Rx Instructions: As directed (DME) OneTouch Verio test strips Strip See Rx Instructions .Route Qty: 100 5RF Rx Instructions: 3x/day (DME) FreeStyle Gómez 2 Sensor Kit See Rx Instructions .Route Qty: 2 5RF Rx Instructions: As directed atorvastatin 80 MG tablet 80 mg PO QHS albuterol sulfate 1 INHALER inhaler 2 puff inhalation Q4H PRN (Reason: Sob &/Or Wheezing) multivitamin with minerals 1 EACH tablet 1 tab PO DAILY duloxetine 60 MG capsule,delayed release(DR/EC) 60 mg PO QHS ergocalciferol (vitamin D2) 50,000 UNIT capsule 50,000 unit PO MO pantoprazole 20 MG tablet 20 mg PO BID losartan 50 MG tablet 50 mg PO DAILY trazodone 100 mg tablet 100 mg PO QHS PRN (Reason: Sleep) insulin glargine [Lantus Solostar U-100 Insulin] 100 unit/mL (3 mL) insulin pen 52 unit subcut DAILY hydroxyzine HCl 50 mg tablet 100 mg PO QHS PRN (Reason: Anxiety) naproxen 500 mg tablet 500 mg PO BID PRN (Reason: Pain) glimepiride 4 mg tablet 4 mg PO BID insulin aspart U-100 [Novolog Flexpen U-100 Insulin] 100 unit/mL (3 mL) insulin pen See Protocol subcut TID Protocol: 6. Sliding Scale Insulin Custom Condition: mg/dl range Dose/Route: Number of Units Protocol Text: Custom Sliding Scale Ozempic 1 mg/dose (4 mg/3 mL) pen injector 1 mg subcut RIVERA Referrals / Follow Up: Shirley Garcia MD [Primary Care Provider] - 09/18/22 3:40 pm (ITS ACTUALLY GOING TO BE WITH THE NURSE PRACTITIONER) Mercedes Castelan, NADIR-C [Non-Staff -Ordering Privileges] - 09/18/22 8:15 am Keke Hernandez PA-C [Med Staff - Adv Practice Prof] - 09/12/22 1:15 pm Disposition Disposition (needs filled in before D/C Order can be placed): Home Health Service Charges/Coding Visit Charges Inpatient E&M: 02789 Disch Hosp
[2022-09-06 11:30] LABS: Bedside Glucose 283 mg/dL (74-106)
[2022-09-06 12:03] VITALS: BP 139/80; PULSE 72; RESP 16; TEMP 36.4; O2SAT 93
--- NOTE | 2022-09-06 13:39 | PCM.PN.ID ---
Physical Exam Narrative Feeling better, abd pain improved, no fever Const alert and no apparent distress Resp normal air movement and clear to auscultation bilaterally Cardio regular rate and regular rhythm GI soft to palpation and non-distended GI Narrative: mild soreness Skin Skin Narrative: abd bandaged ID ID: Route of nutrition/ use of supplements: [] Nutritional Intake: [] IV Site: [] Carrillo Catheter: [] Assessment & Plan Assessment/Plan (1) Abdominal wall abscess: PLAN: Wound cx with MRSA. Wbc improved. OR 09/05/[address] Haas. Ok for home with 1 week doxy. Will follow, d/w Dr. Bean (2) History of diabetes mellitus:
== END 2022-09-06 14:22 | disposition home health service (06) | DRG 571 ==
LOC: ED 19:19 → PCU 19:24
PROVIDERS: Surgery; Admitting Provider Internal Medicine; Emergency Provider Emergency Medicine; PCP Internal Medicine; Visit Provider Internal Medicine
PROC: 0JB80ZZ Excision of Abdomen Subcutaneous Tissue and Fascia, Open Approach (ICD-10-PCS; principal; 2022-09-05 13:15)
DX: L02.211 Cutaneous abscess of abdominal wall (principal); Z68.41 Body mass index [BMI] 40.0-44.9, adult; I96 Gangrene, not elsewhere classified; E11.42 Type 2 diabetes mellitus with diabetic polyneuropathy; L02.221 Furuncle of abdominal wall; E03.9 Hypothyroidism, unspecified; D72.829 Elevated white blood cell count, unspecified; B95.62 Methicillin resistant Staphylococcus aureus infection as the cause of diseases classified elsewhere; Z79.4 Long term (current) use of insulin; E66.01 Morbid (severe) obesity due to excess calories; E55.9 Vitamin D deficiency, unspecified; M79.7 Fibromyalgia; F17.210 Nicotine dependence, cigarettes, uncomplicated; I10 Essential (primary) hypertension; E78.5 Hyperlipidemia, unspecified; F12.90 Cannabis use, unspecified, uncomplicated; K21.9 Gastro-esophageal reflux disease without esophagitis; F41.9 Anxiety disorder, unspecified; L03.311 Cellulitis of abdominal wall; Z79.2 Long term (current) use of antibiotics; N83.202 Unspecified ovarian cyst, left side; F32.A Depression, unspecified
CPT/HCPCS: 36415; 74177; 80048; 80053; 82962; 83605; 83735; 84100; 85025; 85610; 85730; 87040; 87070; 87075; 87077; 87186; 87205; 87641; 88304; 93005; 97802; 99285; 99406; J7030; Q9967; A4216; J2405

== ENCOUNTER 2023-04-14 09:21 | Observation (INO) | payer MEDICARE, MEDICAID, SELFPAY ==
[2023-04-14 09:21] VITALS: BP 163/87; PULSE 91; RESP 18; TEMP 36.1; O2SAT 99; BMI 43.7
[2023-04-14] MEDS: Lidocaine/Epi/Tetracaine 50 ML 1 APPLIC TOPICAL (10:01)
[2023-04-14] MEDS: Lidocaine 1% (20 ml mdv) 20 ML Vial 10 ML INFILT (10:02)
[2023-04-14 10:04] LABS: Absolute Lymphocyte Count 2.23 X10^3/uL (0.83-4.51); Absolute Neutrophil Count 10.2 X10^3/uL (2.0-7.7); Basophil# 0.07 X10^3/uL; Basophil% 0.5 % (0-1); Eosinophil# 0.25 X10^3/uL; Eosinophils% 1.8 % (0-5); Hemoglobin 14.1 g/dL (12.0-15.0); Lymphocyte # 2.23 X10^3/ul (0.83-4.51); Lymphocyte % 16.1 % (19-41); Mean Corp Hgb Conc 31.3 g/dL (32-36); Mean Corpuscular Hgb 28.1 pg (27.0-32.0); Mean Corpuscular Volume 89.8 fL (81-99); Mean Platelet Vol. 9.5 fl (6.2-12.0); Monocyte# 0.98 X10^3/uL; Monocyte% 7.1 % (0-10); NRBC Flagged by Analyzer 0 % (0-5); Neutrophil # 10.23 X10^3/uL (2.7-7.7); Platelet Count 255 K/mm3 (150-450); RBC Distribution Width CV 16.2 % (11.6-14.6); RBC Distribution Width SD 53.3 fl (35.1-43.9); Red Blood Count 5.01 M/mm3 (4.2-5.4); White Blood Count 13.8 K/mm3 (4.4-11.0)
--- NOTE | 2023-04-14 10:18 | EX.ED.DYSGE1 ---
HPI History of Present Illness Chief Complaint: Wound Detail of Chief Complaint: Abdominal wall wound with cellulitis. Informant: patient Onset/Context/Timing Onset: Days Context: Gradual Onset Timing: Continuous Current Severity: Mild Maximum Severity: Mild Narrative Narrative: 52-year-old female history of diabetes hypertension. Prior left-sided abdominal wound that needed surgical incision and drainage and hospitalization for IV antibiotics. States she has developed another wound on the right side of her abdomen spent in the last 4 days. Is been draining small amount of blood and pus. It is now scabbed over. States that she had some antibiotic at home she believes it may have been amoxicillin and was taken the last several days but then ran out. States that she has had chills and a fever as high as 102 at home. No nausea or vomiting. States her blood sugars been running higher. Prior similar symptoms: Yes Recent Illness/Hospitalization: No PFSH PFS Medical History Abdominal wall abscess Abdominal wall cellulitis SEUN (acute kidney injury) Amputated toe of right foot Anxiety Chronic pain Chronic ulcer of right foot with fat layer exposed Depression Diabetes Diabetic foot ulcer Essential hypertension Fibromyalgia History of amputation of great toe History of diabetes mellitus Hyperlipidemia Hypothyroidism Meniere disease Obesity Obesity (BMI 30-39.9) Osteomyelitis Osteomyelitis of second toe of right foot Osteomyelitis of toe of right foot Presence of permanent central venous catheter Skin ulcer of left great toe with fat layer exposed Sleep apnea Smoker Type 2 diabetes mellitus with diabetic polyneuropathy Vascular catheter fitting or adjustment Vertigo Home Medications albuterol sulfate 90 mcg/actuation aerosol inhaler 2 puff inhalation Q4H PRN Sob &/Or Wheezing 08/30/19 [History Last Taken 11/08/20] atorvastatin 80 mg tablet 80 mg PO QHS cholesterol 08/30/19 [History Last Taken 09/03/22] duloxetine 60 mg capsule,delayed release 60 mg PO QHS DEPRESSION 03/21/20 [History Last Taken 09/03/22] multivitamin with minerals 1 tab PO DAILY SUPPLEMENT 03/21/20 [History Last Taken 09/04/22] ergocalciferol (vitamin D2) 1,250 mcg (50,000 unit) capsule 50,000 unit PO MO supplement 10/17/20 [History Last Taken 09/02/22] pantoprazole 20 mg tablet,delayed release 20 mg PO BID ACID REFLUX 11/11/20 [History Last Taken 09/04/22] losartan 50 mg tablet 50 mg PO DAILY BLOOD PRESSURE 12/08/20 [History Last Taken 09/04/22] gabapentin 600 mg tablet 600 mg PO BID NERVE PAIN 11/14/21 [History Last Taken 09/04/22] levothyroxine 75 mcg tablet (Levoxyl) 75 mcg PO DAILY THYROID 02/13/22 [History Last Taken 09/04/22] trazodone 100 mg tablet 100 mg PO QHS PRN Sleep 02/13/22 [History Last Taken 09/03/22] meclizine 25 mg tablet (Dramamine (meclizine)) 25 mg PO QHS DIZZINESS 05/16/22 [History Last Taken 09/03/22] flash glucose sensor ([employer] Gómez 2 Sensor kit) #2 ea 08/14/22 [Rx Last Taken Unknown] glimepiride 4 mg tablet 4 mg PO BID DIABETES 09/04/22 [History Last Taken 09/04/22] hydroxyzine HCl 50 mg tablet 100 mg PO QHS PRN Anxiety 09/04/22 [History Last Taken 09/02/22] naproxen 500 mg tablet 500 mg PO BID PRN Pain 09/04/22 [History Last Taken 08/31/22] mupirocin 2 % topical ointment 1 applic NASAL BID #22 grams 09/06/22 [Rx Last Taken Unknown] blood-glucose sensor (Dexcom G6 Sensor device) #3 ea 12/18/22 [Rx Last Taken Unknown] blood-glucose transmitter (Dexcom G6 Transmitter device) #1 ea 12/18/22 [Rx Last Taken Unknown] insulin pump cart,automated,BT (Omnipod 5 G6 Pods (Gen 5) subcutaneous cartridge) #15 ea 12/19/22 [Rx Last Taken Unknown] insulin pump cartridge,automated dose,BT with controller subcutaneous (Omnipod 5 G6 Intro Kit (Gen 5) subcutaneous cartridge with controller) #1 ea 12/19/22 [Rx Last Taken Unknown] Humalog U-100 Insulin 100 unit/mL subcutaneous solution (insulin lispro) 150 unit (1.5 mL) subcut DAILY #50 mL 02/28/23 [Rx Last Taken Unknown] Allergy/AdvReac Type Severity Reaction Status Date / Time clindamycin Allergy Hives Verified 03/20/23 09:43 erythromycin base Allergy Hives Verified 03/20/23 09:43 [From E-Mycin] vancomycin Allergy Hives Verified 03/20/23 09:43 Gadolinium-MRI Contrast AdvReac Other Verified 03/20/23 09:43 Medium [CONTRAST] Iodinated Contrast Media AdvReac Kidney Verified 04/14/23 10:35 [CONTRASTS] failure Surgical History History of appendectomy Status post debridement Social History Smoking Status: Current every day smoker tobacco type: cigarettes alcohol intake: former substance use type: marijuana ROS ROS ED ROS Narrative Abdominal wall wound. Fever. Chills. Review of Systems ROS Unobtainable: Denies due to encephalopathy Constitutional Constitutional ED: Reports chills and fever(s) Eyes Eyes: Denies blurry vision ENT ENT ED: Denies ear pain Cardiovascular Cardiovascular: Denies chest pain Respiratory/Chest Respiratory/Chest: Denies cough or dyspnea Gastrointestinal Gastrointestinal: Reports abdominal pain; Denies constipation, diarrhea, melena, nausea or vomiting Genitourinary Genitourinary ED: Denies dysuria or hematuria Musculoskeletal Musculoskeletal: Denies arthralgias Integumentary Reports abscess Neurologic Neurologic: Denies headache(s) Psychiatric Psychiatric: Denies anxiety Endocrine Endocrinology: Denies cold intolerance Hematologic/Lymphatic Hematologic/Lymphatic: Reports none Allergic/Immunologic Allergic/Immunologic ED: Denies mouth swelling or tongue swelling EXAM Physical Exam Narrative Exam Narrative: 52-year-old female no acute distress. Vital signs stable afebrile. Patient does not look septic or toxic. H EENT exam unremarkable. Moist mucous members. Neck nontender. Lungs clear to auscultation bilaterally. Heart regular rhythm rate about 90 no murmur. Abdomen soft. Nondistended normal bowel sounds no peritoneal signs. She has a quarter to half dollar sized circular wound on her right abdominal wall that appears to be an abscess. It is scabbed over. There is surrounding cellulitis. It is warm and tender to the touch. There is not a lot of fluctuance. There is no abdominal wall crepitance. This is primarily located in the right lower quadrant. Currently there is no discharge. Moving all 4 extremities. Nontender. No edema. Neurologically she is awake and alert with no focal motor deficits. Const Vital Signs: 04/14/23 09:21 Temperature 97 F L Temperature Source Temporal Pulse Rate 91 Respiratory Rate 18 Blood Pressure 163/87 H Blood Pressure Mean 112 Pulse Ox 99 Oxygen Delivery Method Room Air Positive well nourished, well developed and obese; Negative for cachectic, contractures or unkempt General Appearance ED: well developed and NAD; Negative for unkempt, cachectic, contractures, cyanotic or diaphoretic Nutritional Appearance: obese; Negative for cachectic HEENT Reports moist mucous membranes; Denies dry mucous membranes Negative for trauma or tenderness Mouth ED: No dry mucous membranes Mouth: No dry mucous membranes Eyes PERRL and EOMs intact bilaterally General Eye ED: Negative for pale conjunctiva or scleral icterus Neck no lymphadenopathy, supple and no JVD General: Negative for tenderness Lymph Lymphatic: Negative for other Chest Wall inspection of chest normal and palpation of chest normal Chest: Negative for other Resp normal respiratory effort and clear to auscultation bilaterally Effort and Inspection: Negative for retractions Auscultation: Negative for rales, rhonchi or wheezes Cardio regular rate, regular rhythm, S1 normal heart sound, S2 normal heart sound and no murmurs GI normal to inspection, nondistended, normoactive bowel sounds, non-distended and no masses; Negative for non-tender GI Narrative: Wound on the abdominal wall in the right lower quadrant. Consistent with a scabbed over abscess. Surrounding cellulitis. Mildly tender and warm to touch. No crepitance. Inspection: Negative for abdominal distention Auscultation: normoactive bowel sounds Palpation: soft and tender; Negative for guarding, mass or rebound tenderness present Back/Spine no CVA tenderness General Back: Negative for CVA tenderness Cervical Spine: Negative for cervical spine tenderness Thoracic Spine / Upper Back: Negative for thoracic spinal tenderness Lumbar Spine / Lower Back: Negative for lumbar spinal tenderness Extremity General Extremety ED: Negative for edema or tenderness General Extremity: Negative for edema Neuro oriented x3 and CN's II-XII intact bilaterally Sensorium / Orientation: alert; Negative for orientation impaired, lethargic or stuporous Motor Exam: strength 5/5 throughout Psych mental status grossly normal Appearance: Negative for unkempt Attitude: No agitated Mood & Affect: Negative for depressed, anxious or tearful Skin No no rashes or lesions noted, No no wounds and skin turgor normal Skin Narrative: Wound right lower quadrant abdominal wall. Cellulitis. Rashes: rashes noted Wounds: wounds noted MDM MDM MDM Narrative Medical decision making narrative: [id number] diabetic female with abdominal wall wound wound suspect abscess with cellulitis. Last time she had 1 of these she need to be admitted to have surgical debridement. Screening labs to be obtained. She has been started on IV Unasyn. We will obtain a CT abdomen with contrast to try to help better by the abdominal wall abscess and better define the extent of the abdominal wall infection. Repeat exam at 11:15 AM patient doing well. I did locally anesthetize the right lower quadrant abdominal wound. Made about a 1 to 2 inch horizontal incision. Probed the wound and expressed about 3 cc of pus. Patient tolerated procedure well. Aerobic and anaerobic cultures were done in the wound. Nurses will dress it. I did place about 6 inches of plain packing gauze. I have the hospitalist on page for admission. Patient has received her IV antibiotic dose. She is resting comfortably. History & Record Review Discussion w/independent historian: Patient Additional record(s) reviewed:: Prior inpatient record, Prior outpatient record, Prior ED visit and Prior labs Lab Data Attestation: I reviewed the patient's lab results. Lab results narrative: CBC shows no elevated white count 13.8. H&H of 14 and 45. Platelet count of 255. Chemistries are unremarkable gap of 4. Normal BUN and creatinine of 16 and 0.9. Glucose was 241. Labs: Laboratory Results - last 24 hr 04/14/23 09:50 WBC 13.8 H RBC 5.01 Hgb 14.1 Hct 45.0 MCV 89.8 MCH 28.1 MCHC 31.3 L RDW Std Deviation 53.3 H RDW Coeff of Brea 16.2 H Plt Count 255 MPV 9.5 Immature Gran % (Auto) 0.500 Neut % (Auto) 74.0 H Lymph % (Auto) 16.1 L [place] % (Auto) 7.1 Eos % (Auto) 1.8 Baso % (Auto) 0.5 Absolute Neuts (auto) 10.2 H Absolute Lymphs (auto) 2.23 Nucleated RBC % 0 Sodium 136 Potassium 4.0 Chloride 105 Carbon Dioxide 27.0 Anion Gap 4 L BUN 16 Creatinine 0.90 Estim Creat Clear Calc 66.54 Est GFR (MDRD) Af Amer 85 Est GFR (MDRD) Non-Af 70 BUN/Creatinine Ratio 17.9 Glucose 241 H Calcium 8.9 Radiography Diagnostic Testing: Clinical Impression(s) from Imaging Studies Abdomen/Pelvis CT 04/14/23 10:25 IMPRESSION: There is mild subcutaneous soft tissue thickening noted in the right lower pannus measuring 2.5 cm not seen on the prior study. Previously visualized suspected abscess in the left lower pannus has improved in appearance with some minimal residual soft tissue thickening. Clinical correlation recommended. Nonspecific bilateral perinephric infiltrative change without evidence of hydronephrosis or renal stones, appears stable compared to prior study. Prominent left adnexa appears stable. Pelvic ultrasound may be helpful for further evaluation. Electronically Signed: Zane Stokes, at 11:19 EDT , Procedures Other Procedures Procedure(s): Right lower quadrant abdominal wall abscess incision and drainage. Locally anesthetized with Xylocaine. Made a 1 to 2 inch horizontal incision. Probed the wound and was able to express 2 to 3 cc of pus and fluid. Aerobic and anaerobic cultures done. Packed with 1 inch plain packing gauze. Dressed. Patient tolerated procedure well. Discharge Plan Dx/Rx/DC Orders Clinical Impression: Abdominal wall abscess, History of diabetes mellitus, Leukocytosis Disposition Disposition: Acute Care [facility]
--- NOTE | 2023-04-14 10:25 | CT_ITS ---
STUDY: CT ABDOMEN AND PELVIS WITH CONTRAST - URINARY TRACT REASON FOR EXAM: Female, 52 years old. RLQ abd wall abscess RADIATION DOSAGE (If Supplied By Facility): CTDIvol = ( 18.51 ) mGy, DLP = ( 1229.66 ) mGycm TECHNIQUE: IV 100mL Isovue-300 was administered. Transaxial images were obtained from the dome of the diaphragm to the symphysis pubis in the arterial, nephrographic and excretory phases. Multiplanar coronal and sagittal images were reformatted. Individualized Dose Optimization Techniques Were Used For This CT. COMPARISON: September 04, 2022 FINDINGS: The visualized lung bases are unremarkable. The visualized portions of the heart are within normal limits. Normal liver. Normal gallbladder and extrahepatic biliary system. Normal spleen. Normal pancreas. Normal bilateral adrenal glands. Normal visualized stomach. Normal small intestine. Normal colon. Appendix is not well visualized. Normal abdominal aorta. No retroperitoneal adenopathy. There is moderate perinephric infiltrative change involving the right kidney. There is no evidence for hydronephrosis or renal stone. There is mild left perinephric infiltrative change without evidence for hydronephrosis or stone. Normal urinary bladder. The left adnexa appears prominent. There is mild subcutaneous soft tissue thickening noted in the right lower pannus measuring 2.5 cm not seen on the prior study. Previously visualized suspected abscess in the left lower pannus has improved in appearance with some minimal residual soft tissue thickening. Abdominal wall. Normal osseous structures. CT/Abdomen/Pelvis W IV Cont ONLY IMPRESSION: There is mild subcutaneous soft tissue thickening noted in the right lower pannus measuring 2.5 cm not seen on the prior study. Previously visualized suspected abscess in the left lower pannus has improved in appearance with some minimal residual soft tissue thickening. Clinical correlation recommended. Nonspecific bilateral perinephric infiltrative change without evidence of hydronephrosis or renal stones, appears stable compared to prior study. Prominent left adnexa appears stable. Pelvic ultrasound may be helpful for further evaluation. Electronically Signed: Zane Stokes, at 11:19 EDT ,
[2023-04-14 10:35] LABS: Anion Gap 4 (5-15); BUN 16 mg/dL (7-18); BUN/Creat Ratio 17.9 RATIO (10-20); Calcium,Total 8.9 mg/dL (8.5-10.1); Chloride 105 mmol/L (98-107); EST Glomerular Filtration Rate 70 mL/min (>60); Est Glom Filt Rate - Afr Amer 85 mL/min (>60); Estimated Creatinine Clearance 66.54 ml/min; Glucose 241 mg/dL (74-106); Sodium Level 136 mmol/L (136-145)
[2023-04-14 11:23] VITALS: BP 153/92; PULSE 78; RESP 16; TEMP 36.7; O2SAT 98
[2023-04-14 11:45] VITALS: BP 153/92; PULSE 78; RESP 16; TEMP 36.7; O2SAT 98
--- NOTE | 2023-04-14 12:06 | HP.PCM.HOS_ITS ---
HPI - General General Date of Admission: 04/14/23 Date of Service: 04/14/23 Chief Complaint: R lower abd abscess/cellulitis HPI Narrative KATHRYN ESQUIVEL, is a 52 F with a history of type 2 diabetes, hypothyroidism, neuropathy who presented to [facility] 04/14/2023 with worsening of right-sided abdominal pain and swelling and erythema since last Friday with several days of fevers. In the ED she is found to have right-sided abdominal abscess and I&D was performed with 3 cc of pus sent for culture and this was probed and packed. Given her fevers at home with elevated leukocyte count and cellulitis extending from area hospitalist consulted for admission for observation with IV antibiotics. Patient did have CT of her abdomen and pelvis in ED which showed mild soft tissue thickening on the right pannus. Patient evaluated at bedside and reports that she had something similar like this on the left which had I&D before. This has been worsening since Friday, she does report that she had been given an antibiotic for her toe a month ago and had been given extra just in case so several days ago she began taking that which did help somewhat helped with her fever but due to still not feeling well as well as swelling and erythema she presented to the ED. Is feeling better after I&D. Last fever Friday. ROS otherwise negative. In ED patient did have white blood cell count 13.8, lab work-up otherwise fairly benign. BP 153/92 with a heart rate of 78 and temp of 98.1. [facility] Medical History Abdominal wall abscess Abdominal wall cellulitis SEUN (acute kidney injury) Amputated toe of right foot Anxiety Chronic pain Chronic ulcer of right foot with fat layer exposed Depression Diabetes Diabetic foot ulcer Essential hypertension Fibromyalgia History of amputation of great toe History of diabetes mellitus Hyperlipidemia Hypothyroidism Meniere disease Obesity Obesity (BMI 30-39.9) Osteomyelitis Osteomyelitis of second toe of right foot Osteomyelitis of toe of right foot Presence of permanent central venous catheter Skin ulcer of left great toe with fat layer exposed Sleep apnea Smoker Type 2 diabetes mellitus with diabetic polyneuropathy Vascular catheter fitting or adjustment Vertigo Home Medications albuterol sulfate 90 mcg/actuation aerosol inhaler 2 puff inhalation Q4H PRN Sob &/Or Wheezing 08/30/19 [History Last Taken 04/11/23] atorvastatin 80 mg tablet 80 mg PO QHS cholesterol 08/30/19 [History Last Taken 04/14/23] duloxetine 60 mg capsule,delayed release 60 mg PO QHS DEPRESSION 03/21/20 [History Last Taken 04/13/23] multivitamin with minerals 1 tab PO DAILY SUPPLEMENT 03/21/20 [History Last Taken 04/14/23] ergocalciferol (vitamin D2) 1,250 mcg (50,000 unit) capsule 50,000 unit PO MOTH supplement 10/17/20 [History Last Taken 04/10/23] pantoprazole 20 mg tablet,delayed release 20 mg PO BID ACID REFLUX 11/11/20 [History Last Taken 04/14/23] gabapentin 600 mg tablet 600 mg PO BID NERVE PAIN 11/14/21 [History Last Taken 04/14/23] levothyroxine 75 mcg tablet (Levoxyl) 75 mcg PO DAILY THYROID 02/13/22 [History Last Taken 04/14/23] trazodone 100 mg tablet 100 mg PO QHS Sleep 02/13/22 [History Last Taken 04/13/23] meclizine 25 mg tablet (Dramamine (meclizine)) 25 mg PO QHS PRN DIZZINESS 05/16/22 [History Last Taken 09/03/22] flash glucose sensor ([employer] Gómez 2 Sensor kit) #2 ea 08/14/22 [Rx Last Taken Unknown] glimepiride 4 mg tablet 4 mg PO BID DIABETES 09/04/22 [History Last Taken 04/14/23] hydroxyzine HCl 50 mg tablet 50 mg PO BID PRN Anxiety 09/04/22 [History Last Taken 04/13/23] naproxen 500 mg tablet 500 mg PO BID PRN ELBOW PAIN 09/04/22 [History Last Taken 04/13/23] mupirocin 2 % topical ointment 1 applic NASAL BID #22 grams 09/06/22 [Rx Last Taken Unknown] blood-glucose sensor (Dexcom G6 Sensor device) #3 ea 12/18/22 [Rx Last Taken Unknown] blood-glucose transmitter (Dexcom G6 Transmitter device) #1 ea 12/18/22 [Rx Last Taken Unknown] insulin pump cart,automated,BT (Omnipod 5 G6 Pods (Gen 5) subcutaneous cartridge) #15 ea 12/19/22 [Rx Last Taken Unknown] insulin pump cartridge,automated dose,BT with controller subcutaneous (Omnipod 5 G6 Intro Kit (Gen 5) subcutaneous cartridge with controller) #1 ea 12/19/22 [Rx Last Taken Unknown] Humalog U-100 Insulin 100 unit/mL subcutaneous solution (insulin lispro) 150 unit (1.5 mL) subcut DAILY #50 mL 02/28/23 [Rx Last Taken Unknown] losartan 100 mg tablet 100 mg PO QHS BLOOD PRESSURE 04/14/23 [History Last Taken 04/13/23] Allergy/AdvReac Type Severity Reaction Status Date / Time clindamycin Allergy Hives Verified 03/20/23 09:43 erythromycin base Allergy Hives Verified 03/20/23 09:43 [From E-Mycin] vancomycin Allergy Hives Verified 03/20/23 09:43 Gadolinium-MRI Contrast AdvReac Other Verified 03/20/23 09:43 Medium [CONTRAST] Iodinated Contrast Media AdvReac Kidney Verified 04/14/23 10:35 [CONTRASTS] failure Surgical History History of appendectomy Status post debridement Social History Smoking Status: Current every day smoker tobacco type: cigarettes alcohol intake: former substance use type: marijuana ROS ROS Narrative General: Had been having fevers and chills HENT: Denies headache, denies stuffy nose, denies sore throat EYES: Denies changes in vision Resp: Denies cough, denies shortness of breath Cardiac: Denies chest pain GI: Denies abdominal pain, denies changes in bowel, denies nausea/vomiting : Denies changes in urination Extremity: Denies swelling MSK: Denies weakness Neuro: Chronic tingling in lower extremities Heme: Denies any bleeding or bruising Skin: Right-sided abdominal wall erythema and swelling with pain Psychiatric: No complaints voiced Vital Signs Vital Signs Vital Signs: 04/14/23 09:21 04/14/23 11:23 04/14/23 11:45 Temperature 97 F L 98.1 F 98.1 F Temperature Source Temporal Oral Oral Pulse Rate 91 78 78 Respiratory Rate 18 16 16 Blood Pressure 163/87 H 153/92 H 153/92 H Blood Pressure Mean 112 112 112 Pulse Ox 99 98 98 Oxygen Delivery Method Room Air Room Air Room Air Weight Weight: 119.068 kg Body Mass Index (BMI) 43.7 Physical Exam Narrative General: Alert, oriented, no apparent distress HEENT: Atraumatic, normocephalic Eyes: Anicteric, normal conjunctiva, extraocular movements grossly intact Neck: Supple Respiratory: Clear to auscultation bilaterally, normal respiratory effort Cardiovascular: Regular rate and rhythm GI: Soft, nontender, nondistended Extremities: No edema Musculoskeletal: Moving all extremities Neuro: No overt focal neurological deficits Skin: Area on right abdominal wall observed with no active drainage status post I&D, does have roughly 6 inches of surrounding erythema on all sides and is warm Psych: Fairly cooperative Results Lab / Micro Data 04/14/23 09:50 04/14/23 09:50 Labs: Laboratory Results - last 24 hr 04/14/23 09:50: WBC 13.8 H, RBC 5.01, Hgb 14.1, Hct 45.0, MCV 89.8, MCH 28.1, MCHC 31.3 L, RDW Std Deviation 53.3 H, RDW Coeff of Brea 16.2 H, Plt Count 255, MPV 9.5, Immature Gran % (Auto) 0.500, Neut % (Auto) 74.0 H, Lymph % (Auto) 16.1 L, [place] % (Auto) 7.1, Eos % (Auto) 1.8, Baso % (Auto) 0.5, Absolute Neuts (auto) 10.2 H, Absolute Lymphs (auto) 2.23, Nucleated RBC % 0, Sodium 136, Pot assium 4.0, Chloride 105, Carbon Dioxide 27.0, Anion Gap 4 L, BUN 16, Creatinine 0.90, Estim Creat Clear Calc 66.54, Est GFR (MDRD) Af Amer 85, Est GFR (MDRD) Non-Af 70, BUN/Creatinine Ratio 17.9, Glucose 241 H, Calcium 8.9 Radiology Impression Abdomen/Pelvis CT 04/14/23 10:25 IMPRESSION: There is mild subcutaneous soft tissue thickening noted in the right lower pannus measuring 2.5 cm not seen on the prior study. Previously visualized suspected abscess in the left lower pannus has improved in appearance with some minimal residual soft tissue thickening. Clinical correlation recommended. Nonspecific bilateral perinephric infiltrative change without evidence of hydronephrosis or renal stones, appears stable compared to prior study. Prominent left adnexa appears stable. Pelvic ultrasound may be helpful for further evaluation. 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 Did have white blood cell count of 13.8 with left shift with labs otherwise unremarkable #Type 2 diabetes mellitus -Glucose checks and sliding scale insulin as well as patient's home insulin pump #Hypothyroidism -Continue Synthroid -We will check TSH #Peripheral neuropathy -Continue present home gabapentin #Hypertension -Continue home medication #Mood disturbance -Continue Cymbalta and trazodone #DVT ppx: SCDs Ashwini Quinonez MD Time spent in the patient's overall evaluation,decision-making process, review of diagnostic data, adjustment of management, discussion with other providers, nursing nursing and ancillary staff involved in patient's care documentation, 60 minutes Charges/Coding Visit Charges Inpatient E&M: 87308 Init Hosp L2
[2023-04-14 12:46] VITALS: BMI 43.0
[2023-04-14] MEDS: 0.9% Normal Saline 1,000 ML 75 ML IV (13:00)
[2023-04-14 13:02] VITALS: BP 154/87; PULSE 83; RESP 16; TEMP 36.6; O2SAT 94
[2023-04-14] MEDS: Acetaminophen 325 MG Tablet 650 MG PO (15:41)
[2023-04-14] MEDS: Insulin Lispro 100 UNIT/ML INSULN.PEN SC (17:40)
--- NOTE | 2023-04-14 19:38 | NURSING ---
patient put her call light on and when the parts identification technician went in the room she cursed and yelled at her and told her not to come back in her room. When this nurse went in she began cursing at me and when she was told not to talk to staff like that she ripped her iv out and said she was leaving. AMA papers were signed and security called to walk her out. Dr. Espinosa was notified.
--- NOTE | 2023-04-14 19:45 | NURSING ---
pt signed ama form. pt would not say speak to me. Security called
== END 2023-04-14 19:49 | disposition left against medical advice (07) ==
LOC: ED 12:08 → MS3 12:17
PROVIDERS: Admitting Provider Internal Medicine; Emergency Provider Emergency Medicine; PCP Internal Medicine; Visit Provider Internal Medicine
DX: L02.211 Cutaneous abscess of abdominal wall (principal); F39 Unspecified mood [affective] disorder; E11.42 Type 2 diabetes mellitus with diabetic polyneuropathy; Z68.41 Body mass index [BMI] 40.0-44.9, adult; Z79.4 Long term (current) use of insulin; M79.7 Fibromyalgia; I10 Essential (primary) hypertension; F17.210 Nicotine dependence, cigarettes, uncomplicated; E78.5 Hyperlipidemia, unspecified; L03.311 Cellulitis of abdominal wall; E03.9 Hypothyroidism, unspecified; Z96.41 Presence of insulin pump (external) (internal); Z79.899 Other long term (current) drug therapy; Z79.890 Hormone replacement therapy; E66.9 Obesity, unspecified; Z86.14 Personal history of Methicillin resistant Staphylococcus aureus infection
CPT/HCPCS: 10060; 36415; 74177; 80048; 85025; 87040; 87070; 87075; 87077; 87186; 87205; 96361; 96365; 96366; 96367; 99221; 99285; J7030; J7050; Q9967; A4216; G0378; J0295

== ENCOUNTER → 2023-09-15 | Outpatient (CLI) | payer MEDICARE, MEDICAID, SELFPAY | END | disposition home or self-care (01) | PROVIDERS: PCP Internal Medicine; Visit Provider Podiatrist | DX: L03.116 Cellulitis of left lower limb (principal) | CPT/HCPCS: 87070; 87075; 87077; 87186; 87205 ==

== ENCOUNTER → 2023-10-13 | Outpatient (CLI) | payer MEDICARE, MEDICAID, SELFPAY ==
--- NOTE | 2023-10-13 14:00 | MRI_ITS ---
STUDY: MRI LEFT FOREFOOT WITHOUT CONTRAST REASON FOR EXAM: Female, 52 years old. Osteomyelitis first great toe. TECHNIQUE: Standardized fat and water weighted pulse sequences were obtained in all 3 orthogonal planes. COMPARISON: Left foot MRI dated 04/20/2021. FINDINGS: There is degenerative arthrosis at the second through fourth tarsometatarsal joints with adjacent subchondral marrow edema/cyst formation. There is degenerative arthrosis at the first MTP joint with subchondral edema/cyst formation in the first metatarsal head. There is increased T2/STIR marrow signal in the proximal and distal phalanges of the great toe, with preservation of the normal T1 marrow signal, compatible with marrow stress edema. There is no evidence of roberta osteomyelitis. Normal bone marrow of the remainder of the phalanges, metatarsals, and visualized tarsals, without fracture, periostitis, erosions or reactive bone edema. Normal sesamoids without sesamoiditis, fracture or avascular necrosis. There are no significant joint effusions. There are no extraarticular fluid collections. Normal visualized Chopart and Lisfranc joints and normal Lisfranc ligament. There is mild first intermetatarsal space bursitis. Normal visualized extensor digitorum longus, extensor hallucis longus, flexor digitorum brevis and flexor hallucis longus tendons. Normal visualized plantar fascia without fasciitis, fibromatosis or tear. Normal intrinsic muscles of the foot, without soft tissue masses or evidence of denervation atrophy. There is moderate subcutaneous soft tissue edema along the dorsum of the foot. 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 Degenerative arthrosis at the first MTP joint with subchondral edema/cyst formation in the first metatarsal head. Marrow stress edema in the proximal and distal phalanges of the great toe. No evidence of roberta osteomyelitis. Mild first intermetatarsal space bursitis. Moderate subcutaneous soft tissue edema along the dorsum of the foot. Electronically Signed: Moustapha Bean MD at 9:04 EST ,
== END | disposition home or self-care (01) ==
LOC: MRI 13:59
PROVIDERS: PCP Internal Medicine; Referring Provider Podiatrist; Visit Provider Podiatrist
DX: M86.372 Chronic multifocal osteomyelitis, left ankle and foot (principal)
CPT/HCPCS: 73718

== ENCOUNTER 2023-10-20 14:48 | Inpatient (IN) | payer MEDICARE, MEDICAID, SELFPAY ==
[2023-10-20 14:50] VITALS: BP 178/89; PULSE 89; RESP 18; TEMP 36.6; O2SAT 99
--- NOTE | 2023-10-20 15:08 | EDS_ITS ---
HPI <RADHA Moscoso - Last Filed: 10/20/23 17:33> History of Present Illness Chief Complaint: Wound Narrative Narrative: 52-year-old female with type 2 diabetes presents with a left great toe wound. Her skin cracked about a month ago and developed a wound. She has been on 2 different oral antibiotics from Dr. Muniz without improvement. She has chronic osteo of the left great toe. She had an outpatient MRI concerning for infection. He sent her in for medical clearance and admission for amputation. Patient denies fever or chills. She has neuropathy and had pain in the great toe over the weekend but none today. She states occasionally there is bloody drainage but nothing purulent. PFS <RADHA Moscoso - Last Filed: 10/20/23 17:33> COUNTS INCLUDE 234 BEDS AT THE [facility] Medical History Abdominal wall abscess Abdominal wall cellulitis SEUN (acute kidney injury) Amputated toe of right foot Anxiety Chronic pain Chronic ulcer of right foot with fat layer exposed Depression Diabetes Diabetic foot ulcer Dialysis patient Essential hypertension Fibromyalgia History of amputation of great toe History of diabetes mellitus Hyperlipidemia Hypertension Hypothyroidism Meniere disease Obesity Obesity (BMI 30-39.9) Osteomyelitis Osteomyelitis of second toe of right foot Osteomyelitis of toe of right foot Presence of permanent central venous catheter Skin ulcer of left great toe with fat layer exposed Sleep apnea Smoker Type 2 diabetes mellitus with diabetic polyneuropathy Vascular catheter fitting or adjustment Vertigo Home Medications albuterol sulfate 90 mcg/actuation aerosol inhaler 2 puff inhalation Q4H PRN shortness of breath or wheezing 08/30/19 [History Last Taken 10/19/23] atorvastatin 80 mg tablet 80 mg PO QHS cholesterol 08/30/19 [History Last Taken 10/19/23] duloxetine 60 mg capsule,delayed release 60 mg PO QHS DEPRESSION 03/21/20 [History Last Taken 10/19/23] multivitamin with minerals 1 tab PO DAILY SUPPLEMENT 03/21/20 [History Last Taken 10/20/23] ergocalciferol (vitamin D2) 1,250 mcg (50,000 unit) capsule 50,000 unit PO MOTH supplement 10/17/20 [History Last Taken 10/20/23] pantoprazole 20 mg tablet,delayed release 20 mg PO BID ACID REFLUX 11/11/20 [History Last Taken 10/20/23] gabapentin 600 mg tablet 600 mg PO BID NERVE PAIN 11/14/21 [History Last Taken 10/20/23] levothyroxine 75 mcg tablet (Levoxyl) 75 mcg PO DAILY THYROID 02/13/22 [History Last Taken 10/20/23] trazodone 100 mg tablet 100 mg PO QHS Sleep 02/13/22 [History Last Taken 10/19/23] flash glucose sensor (FreeStyle Gómez 2 Sensor kit) #2 ea 08/14/22 [Rx Last Taken Unknown] hydroxyzine HCl 50 mg tablet 50 mg PO BID PRN Anxiety 09/04/22 [History Last Taken 10/17/23] naproxen 500 mg tablet 500 mg PO BID PRN ELBOW PAIN 09/04/22 [History Last Taken 10/20/23] insulin pump cartridge,automated dose,BT with controller subcutaneous (Omnipod 5 G6 Intro Kit (Gen 5) subcutaneous cartridge with controller) #1 ea 12/19/22 [Rx Last Taken Unknown] Humalog U-100 Insulin 100 unit/mL subcutaneous solution (insulin lispro) 150 unit (1.5 mL) subcut DAILY #50 mL 02/28/23 [Rx Last Taken 10/20/23] glimepiride 4 mg tablet 4 mg PO BID DIABETES #180 tabs 04/14/23 [Rx Last Taken 10/20/23] losartan 100 mg tablet 100 mg PO QHS BLOOD PRESSURE 04/14/23 [History Last Taken 10/19/23] blood-glucose transmitter (Dexcom G6 Transmitter device) #1 ea 06/09/23 [Rx Last Taken Unknown] blood-glucose sensor (Dexcom G6 Sensor device) #3 ea 06/30/23 [Rx Last Taken Unknown] insulin pump cart,automated,BT (Omnipod 5 G6 Pods (Gen 5) subcutaneous cartridge) #15 ea 08/08/23 [Rx Last Taken Unknown] meclizine 25 mg tablet (Dramamine (meclizine)) 25 mg PO BID DIZZINESS 09/18/23 [History Last Taken 10/20/23] fluticasone propionate 50 mcg/actuation nasal spray,suspension 2 spray intranasal QODAY nasal congestion 10/20/23 [History Last Taken 10/19/23] hydrochlorothiazide 12.5 mg capsule 12.5 mg PO DAILY htn 10/20/23 [History Last Taken 10/20/23] montelukast 10 mg tablet 10 mg PO QHS allergies 10/20/23 [History Last Taken 10/19/23] tizanidine 4 mg tablet 4 mg PO QHS muscle relaxer 10/20/23 [History Last Taken 10/19/23] Allergy/AdvReac Type Severity Reaction Status Date / Time clindamycin Allergy Hives Verified 10/20/23 14:53 erythromycin base Allergy Hives Verified 10/20/23 14:53 [From E-Mycin] vancomycin Allergy Hives Verified 10/20/23 14:53 Gadolinium-MRI Contrast AdvReac Other Verified 10/20/23 14:53 Medium [CONTRAST] Iodinated Contrast Media AdvReac Kidney Verified 10/20/23 14:53 [CONTRASTS] failure Surgical History History of appendectomy Status post debridement Social History Smoking Status: Current every day smoker tobacco type: cigarettes alcohol intake: former substance use type: marijuana ROS <RADHA Moscoso - Last Filed: 10/20/23 17:33> ROS ED ROS Narrative Constitutional: Negative for fever, chills, malaise. Neuro: Negative for motor/sensory dysfunction. Skin: Positive for wound. Musc: Negative for joint pain, swelling. EXAM <RADHA Moscoso - Last Filed: 10/20/23 17:33> Physical Exam Narrative Exam Narrative: CONST: Patient sitting in no acute distress. EYES: Normal inspection. NECK: Normal inspection. RESP: No respiratory distress, CTAB. CVS: Regular rate and rhythm, no murmur, no gallop. EXTREMITIES: Normal appearance, cracked dry skin with ulceration medial aspect left great toe. There is yellow iodine residue from podiatry office present. There is no fluctuance or drainage, no erythema or lymphangitis. 2+ DP pulse. NEURO: Oriented x4. PSYCH: Normal affect. Const Vital Signs: 10/20/23 14:50 10/20/23 15:52 10/20/23 16:52 Temperature 98 F 98 F 97.9 F Temperature Source Temporal Oral Oral Pulse Rate 89 78 82 Respiratory Rate 18 18 16 Blood Pressure 178/89 H 112/71 110/64 Blood Pressure Mean 118 84 79 Pulse Ox 99 96 96 Oxygen Delivery Method Room Air Room Air Room Air 10/20/23 17:18 Temperature Temperature Source Pulse Rate 71 Respiratory Rate 16 Blood Pressure 110/64 Blood Pressure Mean 79 Pulse Ox 97 Oxygen Delivery Method <Dr. Jd Wilson DO - Last Filed: 10/20/23 16:29> Physical Exam Const Vital Signs: 10/20/23 14:50 10/20/23 15:52 10/20/23 16:52 Temperature 98 F 98 F 97.9 F Temperature Source Temporal Oral Oral Pulse Rate 89 78 82 Respiratory Rate 18 18 16 Blood Pressure 178/89 H 112/71 110/64 Blood Pressure Mean 118 84 79 Pulse Ox 99 96 96 Oxygen Delivery Method Room Air Room Air Room Air 10/20/23 17:18 Temperature Temperature Source Pulse Rate 71 Respiratory Rate 16 Blood Pressure 110/64 Blood Pressure Mean 79 Pulse Ox 97 Oxygen Delivery Method MDM <RADHA Moscoso - Last Filed: 10/20/23 17:33> [facility] Narrative Medical decision making narrative: History gathered from: Patient, podiatry via telephone report Patient with history of diabetes and chronic left great toe osteomyelitis was sent in for medical clearance for left great toe amputation by Dr. Muniz. She appears well and nontoxic. Afebrile with normal vital signs. Left medial great toe has a dry cracked ulceration. There is no evidence of cellulitis or abscess. Neurovascularly intact. Labs show white count of 11.1, CRP 30.6, ESR 39, glucose 100. Left foot x-ray shows no acute findings or evidence of osteomy elitis. ABIs obtained in ED and are normal. I did not order antibiotics to cover for osteomyelitis because she is stable and allergic to vancomycin. Case was discussed with the hospitalist for admission who states he will look into antibiotic coverage choices. Of note in the ED she did receive IV Zofran and meclizine because she was having nausea and vomiting which was a flareup of her M?ni?re's disease due to the weather changing and her symptoms resolved. Patient was admitted in stable condition. Lab Data Attestation: I reviewed the patient's lab results. Labs: Laboratory Results - last 24 hr 10/20/23 15:20 WBC 11.1 H RBC 4.89 Hgb 13.9 Hct 44.2 MCV 90.4 MCH 28.4 MCHC 31.4 L RDW Std Deviation 50.3 H RDW Coeff of Brea 15.0 H Plt Count 283 MPV 10.0 Immature Gran % (Auto) 0.500 Neut % (Auto) 61.9 Lymph % (Auto) 30.2 [place] % (Auto) 5.2 Eos % (Auto) 1.9 Baso % (Auto) 0.3 Absolute Neuts (auto) 6.9 Absolute Lymphs (auto) 3.35 Nucleated RBC % 0 ESR 39 H Sodium 137 Potassium 4.0 Chloride 107 Carbon Dioxide 26.0 Anion Gap 4 L BUN 17 Creatinine 0.86 Estim Creat Clear Calc 98.64 Est GFR (MDRD) Af Amer 89 Est GFR (MDRD) Non-Af 74 BUN/Creatinine Ratio 19.8 Glucose 100 Calcium 8.7 C-React Prot Ext Range 30.60 H Radiography Diagnostic Testing: Clinical Impression(s) from Imaging Studies Foot X-Ray 10/20/23 16:00 IMPRESSION: Normal x-ray examination of the foot. Electronically Signed: Zeferino Duong MD at 16:29 EST Reading Location ID and State: [address] [place] [address] Tel , Service support , ED attending interpretation of left foot x-ray shows no fracture or dislocation, no acute osseous abnormality. <Dr. Jd Wilson, DO - Last Filed: 10/20/23 16:29> [facility] Lab Data Labs: Laboratory Results - last 24 hr 10/20/23 15:20 WBC 11.1 H RBC 4.89 Hgb 13.9 Hct 44.2 MCV 90.4 MCH 28.4 MCHC 31.4 L RDW Std Deviation 50.3 H RDW Coeff of Brea 15.0 H Plt Count 283 MPV 10.0 Immature Gran % (Auto) 0.500 Neut % (Auto) 61.9 Lymph % (Auto) 30.2 [place] % (Auto) 5.2 Eos % (Auto) 1.9 Baso % (Auto) 0.3 Absolute Neuts (auto) 6.9 Absolute Lymphs (auto) 3.35 Nucleated RBC % 0 ESR 39 H Sodium 137 Potassium 4.0 Chloride 107 Carbon Dioxide 26.0 Anion Gap 4 L BUN 17 Creatinine 0.86 Estim Creat Clear Calc 98.64 Est GFR (MDRD) Af Amer 89 Est GFR (MDRD) Non-Af 74 BUN/Creatinine Ratio 19.8 Glucose 100 Calcium 8.7 C-React Prot Ext Range 30.60 H Radiography Diagnostic Testing: Clinical Impression(s) from Imaging Studies Foot X-Ray 10/20/23 16:00 IMPRESSION: Normal x-ray examination of the foot. Electronically Signed: Zeferino Duong MD at 16:29 EST , Treatment and Re-Evaluation :: I have personally performed a face to face assessment of the patient and have reviewed the [facility] Note. I performed a substantive portion of the visit including all aspects of the following. My joel findings include: History: Patient presents with an open radial pulses wound to her left great toe. Patient states this has been getting progressively worse. Patient saw her rn surgery icu who referred to the emergency department for admission and probable amputation of the great toe. Patient has a history of neuropathy and admits to chronic decreased sensation in all of her toes. Patient denies any fevers or chills. Patient denies any discharge or drainage. Patient admits to feelings of vertigo. Patient states she has a history of vertigo and states this feels similar to that. Exam: Vital signs are stable except for an elevated blood pressure 178/89. Patient is afebrile. Patient is in no acute distress. Skin is warm and dry. There is an open wound on the medial aspect of the distal CT scan of the left great toe. There is no purulent discharge or drainage noted. There is no active bleeding noted. There is some mild surrounding erythema. Sensation was intact to light touch in all digits. Capillary refill was less than 2 seconds in all digits. Pedal pulses are equal bilaterally. Medical Decision Making: Differential diagnosis includes osteomyelitis, open wound, and cellulitis. CBC will be obtained to assess for leukocytosis and anemia. Basic metabolic profile will be obtained to assess for electrolyte abnormality and renal function. CRP and sed rate will be obtained to assess for inflammatory markers. X-rays of the left foot will be obtained to assess for osteomyelitis. X-rays of the left foot were obtained. There are 3 views. On my independent interpretation, there is no acute fracture or osteomyelitis. Radiologist also interpreted the x-rays and agrees. CBC was reviewed. There is a mild leukocytosis of 11.1. Basic metabolic profile was reviewed and was within normal limits. C-reactive protein was reviewed and was elevated at 30.6. Sed rate was reviewed and was elevated at 39. Patient was given a dose of meclizine and Zofran. Case will be discussed with the hospitalist for admission. Patient understood and was agreeable with the plan. All questions were answered. Discharge Plan Triage Chief Complaint: Wound ED Midlevel Provider: Angelic Naidu ED Provider: Jd Wilson Dx/Rx/DC Orders Clinical Impression: Osteomyelitis of great toe of left foot, Type 2 diabetes mellitus with diabetic polyneuropathy Prescriptions: No Action gabapentin 600 mg tablet 600 mg PO BID levothyroxine [Levoxyl] 75 mcg tablet 75 mcg PO DAILY Rx Instructions: take 1 & 1/2 tab on sundays meclizine [Dramamine (meclizine)] 25 mg tablet 25 mg PO BID (DME) FreeStyle Gómez 2 Sensor Kit See Rx Instructions .Route Qty: 2 5RF Rx Instructions: As directed (DME) Omnipod 5 G6 Intro Kit (Gen 5) Cartridge See Rx Instructions .Route Qty: 1 0RF Rx Instructions: As directed atorvastatin 80 MG tablet 80 mg PO QHS albuterol sulfate 1 INHALER inhaler 2 puff inhalation Q4H PRN (Reason: shortness of breath or wheezing) multivitamin with minerals 1 EACH tablet 1 tab PO DAILY duloxetine 60 MG capsule,delayed release(DR/EC) 60 mg PO QHS ergocalciferol (vitamin D2) 50,000 UNIT capsule 50,000 unit PO MOTH pantoprazole 20 MG tablet 20 mg PO BID trazodone 100 mg tablet 100 mg PO QHS hydroxyzine HCl 50 mg tablet 50 mg PO BID PRN (Reason: Anxiety) naproxen 500 mg tablet 500 mg PO BID PRN (Reason: ELBOW PAIN) losartan 100 mg tablet 100 mg PO QHS tizanidine 4 mg tablet 4 mg PO QHS hydrochlorothiazide 12.5 mg capsule 12.5 mg PO DAILY Patient Comments: take 1 capsule by mouth once daily montelukast 10 mg tablet 10 mg PO QHS Patient Comments: take 1 tablet by mouth at bedtime fluticasone propionate 50 mcg/actuation spray,suspension 2 spray INTRANASAL QODAY Patient Comments: instill 2 sprays into each nostril once daily Rinse mouth after use insulin lispro [Humalog U-100 Insulin] 100 unit/mL solution 150 unit subcut DAILY Qty: 50 5RF Patient Comments: PT STATES THEY RAN OUT OF THEIR PODS RECENTLY AND HAVEN'T HAD THE CHANCE TO GET TO [facility] TO [facility] OPERATOR MORE Rx Instructions: via insulin pump glimepiride 4 mg tablet 4 mg PO BID Qty: 180 1RF (DME) Dexcom G6 Transmitter Device See Rx Instructions .Route Qty: 1 1RF Rx Instructions: 1 transmitter q 90 days (DME) Dexcom G6 Sensor Device See Rx Instructions .Route Qty: 3 5RF Rx Instructions: 1 sensor q 10 days (DME) Omnipod 5 G6 Pods (Gen 5) Cartridge See Rx Instructions .Route Qty: 15 0RF Rx Instructions: 1 pod q 48 hrs Primary Care Provider: Shirley Garcia Referrals: Shirley Garcia MD [Primary Care Provider] -
[2023-10-20] MEDS: Ondansetron 4 MG/2 ML Vial IV (15:21)
[2023-10-20] MEDS: Meclizine HCl 25 MG Tablet PO ×2 (15:21→21:03)
[2023-10-20 15:23] VITALS: BMI 45.3
--- NOTE | 2023-10-20 15:51 | ART_ITS ---
Reason For Study: Foot wounds Procedure A bilateral lower extremity continuous wave Doppler with analog waveform analysis and ankle brachial indexes. Left Segmental Pressures Left brachial= 134mmHg. Left posterior tibial artery = 162mmHg. Left dorsalis pedis artery = 173mmHg. The left dorsalis pedis waveforms are triphasic. The left posterior tibial artery waveforms are triphasic. Right Segmental Pressures Right brachial= 132mmHg. Right posterior tibial artery = 177mmHg. Right dorsalis pedis artery = 164mmHg. The right dorsalis pedis waveforms are triphasic. The right posterior tibial artery waveforms are triphasic. Indices The right ankle brachial index by the dorsalis pedis is 1.22. The right ankle brachial index by the posterior tibial artery is 1.32. The left ankle brachial index by the dorsalis pedis is 1.29. The left ankle brachial index by the posterior tibial artery is 1.21. VL/Ankle Brachial Index Interpretation Summary Right OSVALDO 1.32, normal. Doppler/PVR waveforms of the right leg normal at rest. Left OSVALDO 1.29, normal. Doppler/PVR waveforms of the left leg normal at rest. Ordering Physician: Angelic Naidu Referring Physician: Shirley Garcia Performed By: Chica Nunez RVT
[2023-10-20 15:52] VITALS: BP 112/71; PULSE 78; RESP 18; TEMP 36.6; O2SAT 96
[2023-10-20 15:54] LABS: Anion Gap 4 (5-15); BUN 17 mg/dL (7-18); BUN/Creat Ratio 19.8 RATIO (10-20); Calcium,Total 8.7 mg/dL (8.5-10.1); Chloride 107 mmol/L (98-107); Creatinine, Serum 0.86 mg/dL (0.55-1.02); EST Glomerular Filtration Rate 74 mL/min (>60); Est Glom Filt Rate - Afr Amer 89 mL/min (>60); Estimated Creatinine Clearance 98.64 ml/min; Glucose 100 mg/dL (74-106); Sodium Level 137 mmol/L (136-145)
--- NOTE | 2023-10-20 16:00 | RAD_ITS ---
STUDY: X-RAY - LEFT FOOT CLINICAL: Female, 52 years old. pain TECHNIQUE: 3 view(s) of the foot. COMPARISON: None. FINDINGS: Normal talus, calcaneus, and tarsal bones. Normal visualized subtalar, talonavicular, calcaneocuboid, tarsal and tarsometatarsal articulations. Normal metatarsi. Normal metatarsophalangeal joint of the great toe. Normal tibial and fibular sesamoid bones. Normal interphalangeal joint of the great toe. Normal phalanges of the great toe. Normal second through fifth metatarsophalangeal joints. Normal interphalangeal joints and phalanges of the lesser toes. The soft tissue structures are unremarkable. RAD/Foot min 3 Views IMPRESSION: Normal x-ray examination of the foot. Electronically Signed: Zeferino Duong MD at 16:29 [facility] ,
[2023-10-20 16:15] LABS: Absolute Lymphocyte Count 3.35 X10^3/uL (0.83-4.51); Absolute Neutrophil Count 6.9 X10^3/uL (2.0-7.7); Basophil# 0.03 X10^3/uL; Basophil% 0.3 % (0-1); Eosinophil# 0.21 X10^3/uL; Eosinophils% 1.9 % (0-5); Hematocrit 44.2 % (37-47); Hemoglobin 13.9 g/dL (12.0-15.0); Lymphocyte # 3.35 X10^3/ul (0.83-4.51); Lymphocyte % 30.2 % (19-41); Mean Corp Hgb Conc 31.4 g/dL (32-36); Mean Corpuscular Hgb 28.4 pg (27.0-32.0); Mean Corpuscular Volume 90.4 fL (81-99); Monocyte# 0.58 X10^3/uL; Monocyte% 5.2 % (0-10); NRBC Flagged by Analyzer 0 % (0-5); Neutrophil # 6.86 X10^3/uL (2.7-7.7); Neutrophil % 61.9 % (47-70); Platelet Count 283 K/mm3 (150-450); RBC Distribution Width SD 50.3 fl (35.1-43.9); Red Blood Count 4.89 M/mm3 (4.2-5.4); White Blood Count 11.1 K/mm3 (4.4-11.0)
[2023-10-20 16:23] LABS: Erythrocyte Sedimentation Rate 39 mm/hr (0-30)
[2023-10-20 16:52] VITALS: BP 110/64; PULSE 82; RESP 16; TEMP 36.6; O2SAT 96
[2023-10-20 17:18] VITALS: BP 110/64; PULSE 71; RESP 16; O2SAT 97
--- NOTE | 2023-10-20 17:23 | HP.PCM.HOS_ITS ---
HPI - General General Date of Admission: 10/20/23 Date of Service: 10/20/23 Chief Complaint: Left great toe osteomyelitis HPI Narrative KATHRYN ESQUIVEL, is a 52 F who presented to [facility] ED on 10/20/2023 for worsening left great toe wound infection. Patient seen at bedside in the ED. Laying comfortably in bed, conversing normally, in no acute distress. She denies any acute pain or discomfort currently. States she does not have any left toe pain and generally has had minimal pain with the toe since the infection began. Patient does state that she has some dizziness right now, but this is chronic for her and usually improves with taking her medications. Patient follows with Dr. Muniz with podiatry. She developed the left great toe wound about 1 to 2 months ago. She has history of insulin-dependent type 2 diabetes with high insulin requirements. Has history of diabetic neuropathy as well. Follows with Dr. Man with endocrinology in the office, uses an insulin pump for insulin ministration and a Dexcom for monitoring her blood sugars. Patient has previous history of right great toe and second toe amputation secondary to diabetic foot wounds. She previously had a left great toe wound back in 2020 but was able to avoid toe amputation at that time. For recurrent left toe infection, patient has now been on 2 different oral antibiotics from podiatry with no improvement. Does have known history of chronic osteomyelitis of the toe. Had a recent outpatient MRI concerning for worsening osteomyelitis, so she was sent in for admission by Dr. Muniz for planned amputation. Patient currently denies any fevers or chills, chest pain, shortness of breath, abdominal pain or discomfort. No other acute concerns at this time. [facility] Medical History Abdominal wall abscess Abdominal wall cellulitis SEUN (acute kidney injury) Amputated toe of right foot Anxiety Chronic pain Chronic ulcer of right foot with fat layer exposed Depression Diabetes Diabetic foot ulcer Dialysis patient Essential hypertension Fibromyalgia History of amputation of great toe History of diabetes mellitus Hyperlipidemia Hypertension Hypothyroidism Meniere disease Obesity Obesity (BMI 30-39.9) Osteomyelitis Osteomyelitis of second toe of right foot Osteomyelitis of toe of right foot Presence of permanent central venous catheter Skin ulcer of left great toe with fat layer exposed Sleep apnea Smoker Type 2 diabetes mellitus with diabetic polyneuropathy Vascular catheter fitting or adjustment Vertigo Home Medications albuterol sulfate 90 mcg/actuation aerosol inhaler 2 puff inhalation Q4H PRN shortness of breath or wheezing 08/30/19 [History Last Taken 10/19/23] atorvastatin 80 mg tablet 80 mg PO QHS cholesterol 08/30/19 [History Last Taken 10/19/23] duloxetine 60 mg capsule,delayed release 60 mg PO QHS DEPRESSION 03/21/20 [History Last Taken 10/19/23] multivitamin with minerals 1 tab PO DAILY SUPPLEMENT 03/21/20 [History Last Taken 10/20/23] ergocalciferol (vitamin D2) 1,250 mcg (50,000 unit) capsule 50,000 unit PO MOTH supplement 10/17/20 [History Last Taken 10/20/23] pantoprazole 20 mg tablet,delayed release 20 mg PO BID ACID REFLUX 11/11/20 [History Last Taken 10/20/23] gabapentin 600 mg tablet 600 mg PO BID NERVE PAIN 11/14/21 [History Last Taken 10/20/23] levothyroxine 75 mcg tablet (Levoxyl) 75 mcg PO DAILY THYROID 02/13/22 [History Last Taken 10/20/23] trazodone 100 mg tablet 100 mg PO QHS Sleep 02/13/22 [History Last Taken 10/19/23] flash glucose sensor ([employer] Sensor kit) #2 ea 08/14/22 [Rx Last Taken Unknown] hydroxyzine HCl 50 mg tablet 50 mg PO BID PRN Anxiety 09/04/22 [History Last Taken 10/17/23] naproxen 500 mg tablet 500 mg PO BID PRN ELBOW PAIN 09/04/22 [History Last Taken 10/20/23] insulin pump cartridge,automated dose,BT with controller subcutaneous (Omnipod 5 G6 Intro Kit (Gen 5) subcutaneous cartridge with controller) #1 ea 12/19/22 [Rx Last Taken Unknown] Humalog U-100 Insulin 100 unit/mL subcutaneous solution (insulin lispro) 150 unit (1.5 mL) subcut DAILY #50 mL 02/28/23 [Rx Last Taken 10/20/23] glimepiride 4 mg tablet 4 mg PO BID DIABETES #180 tabs 04/14/23 [Rx Last Taken 10/20/23] losartan 100 mg tablet 100 mg PO QHS BLOOD PRESSURE 04/14/23 [History Last Taken 10/19/23] blood-glucose transmitter (Dexcom G6 Transmitter device) #1 ea 06/09/23 [Rx Last Taken Unknown] blood-glucose sensor (Dexcom G6 Sensor device) #3 ea 06/30/23 [Rx Last Taken Unknown] insulin pump cart,automated,BT (Omnipod 5 G6 Pods (Gen 5) subcutaneous cartridge) #15 ea 08/08/23 [Rx Last Taken Unknown] meclizine 25 mg tablet (Dramamine (meclizine)) 25 mg PO BID DIZZINESS 09/18/23 [History Last Taken 10/20/23] fluticasone propionate 50 mcg/actuation nasal spray,suspension 2 spray intranasal QODAY nasal congestion 10/20/23 [History Last Taken 10/19/23] hydrochlorothiazide 12.5 mg capsule 12.5 mg PO DAILY htn 10/20/23 [History Last Taken 10/20/23] montelukast 10 mg tablet 10 mg PO QHS allergies 10/20/23 [History Last Taken 10/19/23] tizanidine 4 mg tablet 4 mg PO QHS muscle relaxer 10/20/23 [History Last Taken 0 10/19/23] Allergy/AdvReac Type Severity Reaction Status Date / Time clindamycin Allergy Hives Verified 10/20/23 14:53 erythromycin base Allergy Hives Verified 10/20/23 14:53 [From E-Mycin] vancomycin Allergy Hives Verified 10/20/23 14:53 Gadolinium-MRI Contrast AdvReac Other Verified 10/20/23 14:53 Medium [CONTRAST] Iodinated Contrast Media AdvReac Kidney Verified 10/20/23 14:53 [CONTRASTS] failure Surgical History History of appendectomy Status post debridement Social History Smoking Status: Current every day smoker tobacco type: cigarettes alcohol intake: former substance use type: marijuana ROS Constitutional Constitutional: Denies chills, fatigue, fever(s) or weakness Eyes Eyes: Denies change in vision Cardiovascular Cardiovascular: Denies chest pain Respiratory/Chest Respiratory/Chest: Denies cough Gastrointestinal Gastrointestinal: Denies abdominal pain Musculoskeletal Musculoskeletal: Denies arthralgias or back pain Neurologic Neurologic: Reports dizziness; Denies focal weakness, headache(s), numbness or paresthesias Vital Signs Vital Signs Vital Signs: 10/20/23 14:50 10/20/23 15:52 10/20/23 16:52 Temperature 98 F 98 F 97.9 F Temperature Source Temporal Oral Oral Pulse Rate 89 78 82 Respiratory Rate 18 18 16 Blood Pressure 178/89 H 112/71 110/64 Blood Pressure Mean 118 84 79 Pulse Ox 99 96 96 Oxygen Delivery Method Room Air Room Air Room Air 10/20/23 17:18 Temperature Temperature Source Pulse Rate 71 Respiratory Rate 16 Blood Pressure 110/64 Blood Pressure Mean 79 Pulse Ox 97 Oxygen Delivery Method Weight Weight: 119.8 kg Body Mass Index (BMI) 45.3 Physical Exam Const alert, oriented x3 and no apparent distress Constitutional Narrative: Middle-aged female, morbidly obese, laying comfortably in bed, conversing normally, no acute distress. General Appearance: cooperative and comfortable HEENT normocephalic, head/scalp atraumatic, hearing grossly normal bilaterally, nasal mucous membranes and turbinates normal and moist oral mucous membranes Eyes PERRL, EOMs intact bilaterally and conjunctivae normal Neck full ROM, no lymphadenopathy and supple Lymph Lymphatic: no lymphadenopathy noted Chest inspection of chest normal Resp normal respiratory effort, normal air movement, no use of accessory muscles and clear to auscultation bilaterally Cardio regular rate, regular rhythm, no murmurs and peripheral pulses 2+ throughout GI normal to inspection, nondistended, normoactive bowel sounds, soft to palpation, non-tender and non-distended Back/Spine normal ROM Extremity full ROM and no pedal edema Extremity Narrative: Left great toe wound noted. Neuro moves all extremities and no focal motor deficits Speech: speech normal Psych mental status grossly normal Results Lab / Micro Data 10/20/23 15:20 10/20/23 15:20 Labs: Laboratory Results - last 24 hr 10/20/23 15:20: WBC 11.1 H, RBC 4.89, Hgb 13.9, Hct 44.2, MCV 90.4, MCH 28.4, MCHC 31.4 L, RDW Std Deviation 50.3 H, RDW Coeff of [place] 15.0 H, Plt Count 283, MPV 10.0, Immature Gran % (Auto) 0.500, Neut % (Auto) 61.9, Lymph % (Auto) 30.2, [place] % (Auto) 5.2, Eos % (Auto) 1.9, Baso % (Auto) 0.3, Absolute Neuts (auto) 6.9, Absolute Lymphs (auto) 3.35, Nucleated RBC % 0, ESR 39 H, Sodium 137, Potassium 4.0, Chloride 107, Carbon Dioxide 26.0, Anion Gap 4 L, BUN 17, Creatinine 0.86, Estim Creat Clear Calc 98.64, Est GFR (MDRD) Af Amer 89, Est GFR (MDRD) Non-Af 74, BUN/Creatinine Ratio 19.8, Glucose 100, Calcium 8.7, C- React Prot Ext Range 30.60 H Imagaing Radiology Impression Foot X-Ray 10/20/23 16:00 IMPRESSION: Normal x-ray examination of the foot. Electronically Signed: Zeferino Duong MD at 16:29 EST , Assessment & Plan Assessment/Plan (1) Osteomyelitis of great toe of left foot: (2) Diabetic foot infection: PLAN: Plan Patient is a 52-year-old female who presented to [facility] ED on 10/20/2023 with worsening left great toe wound. 1. Left great toe wound with suspected acute osteomyelitis, in setting of known history of chronic left great toe osteomyelitis Follows with Dr. Muniz with Podiatry. Left toe wound culture from 09/15/2023 grew E. coli, group B strep, MRSA, group G strep and anaerobic cocci. Failed outpatient antibiotic treatment. MRI 10/13 showed moderate subcu soft tissue edema along dorsum of foot, marrow stress edema in proximal and distal phalanges of great toe with no evidence of roberta osteomyelitis. Mild leukocytosis, ESR 39, CRP 30.6 on admit. ? Admit under inpatient status to [facility]. Podiatry consulted. Planning for amputation on Sunday 10/22. N.p.o. at midnight on 10/21. Preoperative evaluation as noted below. Infectious disease consulted. Patient reports history of vancomycin allergy. Will treat with linezolid and Zosyn for now, appreciate ID recs. Wound care consulted. PT/OT/case management consulted. 2. Preoperative evaluation ? NSQIP score: Patient has average risk of complications and of serious complications with this procedure given her risk factors of elevated BMI, insulin-dependent diabetes, medication dependent hypertension, ASA class II with mild systemic disease. ? Labs: Hemoglobin 13.9, normal platelet count, normal electrolytes and kidney function. Recommend CBC and BMP postoperatively. ? Imaging: Left foot MRI on 10/13 as noted above. No further preoperative imaging needed. ? EKG: Ordered. ? Echo: Last echo in 2013 with no abnormalities. No history of anginal symptoms noted per patient, no history of CAD noted. Taking appropriate medications for hypertension, hyperlipidemia, diabetes. No need for echocardiogram prior to low risk procedure. ? Medications: Hold home hydrochlorothiazide and losartan for procedure, likely okay to restart postoperatively. Okay to continue all other home medications. ? Previous procedural complications: No previous complications noted per patient. ? Recommendation: Patient is medically optimized for procedure, no further preoperative workup needed. , 3. Poorly controlled insulin-dependent type 2 diabetes mellitus with neuropathy Follows with Dr. Man with endocrinology. On home insulin pump with Dexcom for glucose monitoring. Most recent A1c 10.4% on 09/18/2023. Blood glucose 100 on admission. ? Discussed with patient and she prefers to continue with home insulin pump for insulin administration and Dexcom for glucose monitoring. Carb controlled diet. Continue home gabapentin. Chronic medical conditions: ? Morbid obesity: BMI 45 on admit. Complicates hospital course, care and prognosis. ? Hyperlipidemia: Continue home statin. ? Hypertension: Holding home losartan and hydrochlorothiazide for planned procedure, likely okay to restart postoperatively. ? Anxiety/depression/insomnia: Continue home duloxetine, hydroxyzine as needed, trazodone at night. ? GERD: Continue home PPI. ? Asthma with seasonal allergies: Continue home albuterol inhaler as needed, mon telukast, Flonase. ? Chronic dizziness: Continue home meclizine. ? Hypothyroidism: Continue home Synthroid. DVT prophylaxis: Lovenox CODE STATUS: Full code, verified Expected disposition: TBD Total clinical time spent by myself addressing the patient's medical issues, reviewing all the data, and collaborating with patient's care team: 55 minutes. Charges/Coding Visit Charges Inpatient E&M: 63541 Init Hosp L2
[2023-10-20 17:50] LABS: Bedside Glucose 74 mg/dL (74-106)
[2023-10-20] MEDS: Piperacil/Tazobactam 4.5 GM in 0.9% Normal Saline (100mL MB+) 100 ML IV (17:57)
--- OUTSIDE RECORDS SUMMARY | 2023-10-20 18:03 | XMS RPT_ITS | CCD ---
Author Name Unknown Address [address] [place] [address] Organization [facility] Care Team Providers Care Jewelry Sales Coordinator Name Role Phone EDPATO MARCELLE GUME Unavailable Unavailable Glenroy Queen Attending Unavailable Glenroy Queen Primary Care Unavailable Glenroy Queen Admitting Unavailable Glenroy Queen Attending Unavailable Glenroy Queen Primary Care Unavailable Villeda, Sirena A Admitting Unavailable Ronal Sirena A Attending Unavailable Glenroy Queen Referring Unavailable Glenroy Queen Primary Care Unavailable Glenroy Queen Consulting Unavailable Glenroy Queen Admitting Unavailable Glenroy Queen Attending Unavailable QueenGlenroy reyes Primary Care Unavailable Glenroy Queen Admitting Unavailable Glenroy Queen Attending Unavailable QueenGlenroy reyes Primary Care Unavailable QueenGlenroy reyes Attending Unavailable QueenGlenroy reyes Primary Care Unavailable QueenGlenroy harper Admitting Unavailable QueenGlenroy reyes Attending Unavailable QueenGlenroy reyes Primary Care Unavailable QueenGlenroy harper Admitting Unavailable Glenroy Queen Attending Unavailable Glenroy Queen Primary Care Unavailable Julio, Wendie Attending Unavailable Glenroy Queen Primary Care Unavailable Glenroy Queen Attending Unavailable Queen, Glenroy Primary Care Unavailable Julio, Wendie Admitting Unavailable Julio, Wendie Attending Unavailable Glenroy Queen Primary Care Unavailable Julio, Wendie Attending Unavailable Queen, Glenroy Primary Care Unavailable Julio, Wendie Attending Unavailable Queen, Glenroy Primary Care Unavailable QueenGlenroy reyes Attending Unavailable QueenGlenroy Primary Care Unavailable Queen, Glenroy Attending Unavailable Glenroy Queen Primary Care Unavailable Glenroy Queen Primary Care Provider ISHMAEL MONTGOMERY JR. Attending Unav ailable GLENROY QUEEN Primary Care Unavailable BARRY AGUILERA Attending Unavailable YOSVANY PEREIRA Referring Unavailable Glenroy Queen Primary Care Provider Pending Provider Unavailable Unavailable Starr Garcia MD Primary Care Provider [facility], Keti Unavailable [facility], Jade Unavailable BERNICEGLENROY Primary Care Unavailable CHEYENNE JONES Attending Unavailabl Starr Ngo MD Primary Care Provider [facility], Keti Unavailable [facility], Jade Unavailable Starr Garcia MD Primary Care Provider [facility], Keti Unavailable [facility], Jade Unavailable Starr Garcia MD Primary Care Provider [facility], Keti Unavailable [facility], Jade Unavailable LEMON, ALISSA Referring Unavailable GANTA, STARR Primary Care Unavailable VETOVITZ, TAMMY Referring Unavailable LEMON, ALISSA Attending Unavailable GANTA, STARR Primary Care Unavailable VETOVITZ, TAMMY Referring Unavailable LEMON, ALISSA Attending Unavailable GANTA, STARR Primary Care Unavailable VETOVITZ, TAMMY Referring Unavailable LEMON, ALISSA Attending Unavailable GANTA, STARR Primary Care Unavailable GANTA, STARR Primary Care Unavailable GANTA, STARR Attending Unavailable OLDER, DANIELLE Referring Unavailable VETOVITZ, TAMMY Attending Unavailable GANTA, STARR Primary Care Unavailable VETOVITZ, TAMMY Attending Unavailable GANTA, STARR Primary Care Unavailable GANTA, STARR Referring Unavailable OLDER, DANIELLE Referring Unavailable GANTA, STARR Primary Care Unavailable GANTA, STARR Primary Care Unavailable GANTA, STARR Referring Unavailable LIDIA MCGUIRE Attending Unavailable GANTA, STARR Primary Care Unavailable GANTA, STARR Primary Care Unavailable GANTA, STARR Referring Unavailable VETOVITZ, TAMMY Referring Unavailable GANTA, STARR Primary Care Unavailable VETOVITZ, TAMMY Referring Unavailable LEMON, ALISAS Attending Unavailable GANTA, STARR Primary Care Unavailable VETOVITZ, TAMMY Referring Unavailable LEMON, ALISSA Attending Unavailable GANTA, STARR Primary Care Unavailable VETOVITZ, TMAMY Referring Unavailable GANTA, STARR Primary Care Unavailable VETOVITZ, TAMMY Referring Unavailable LEMON, ALISSA Attending Unavailable GANTA, STARR Primary Care Unavailable FLETCHER, CASSIUS Attending Unavailable GANTA, STARR Primary Care Unavailable FLETCHER, CASSIUS Referring Unavailable WAYLON, KEKE Attending Unavailable GANTA, STARR Primary Care Unavailable DENBOW, ALPHONSO Attending Unavailable GANTA, STARR Primary Care Unavailable OLDER, DANIELLE Referring Unavailable GANTA, STARR Primary Care Unavailable VETOVITZ, TAMMY Referring Unavailable GANTA, STARR Primary Care Unavailable VETOVITZ, TAMMY Referring Unavailable LEMON, ALISSA Attending Unavailable GANTA, STARR Primary Care Unavailable VETOVITZ, TAMMY Referring Unavailable GANTA, STARR Primary Care Unavailable SARAH, NIMO M Referring Unavailable GANTA, STARR Primary Care Unavailable SARAH, NIMO M Referring Unavailable GANTA, STARR Primary Care Unavailable OLDER, DANIELLE Attending Unavailable GANTA, STARR Primary Care Unavailable OLDER, DANIELLE Referring Unavailable GANTA, STARR Primary Care Unavailable GANTA, STARR Primary Care Unavailable GANTA, STARR Referring Unavailable OLDER, DANIELLE Referring Unavailable GANTA, STARR Primary Care Unavailable DENBOW, ALPHONSO Attending Unavailable GANTA, STARR Primary Care Unavailable GANTA, STARR Primary Care Unavailable GANTA, STARR Primary Care Unavailable GANTA, STARR Attending Unavailable GANTA, STARR Primary Care Unavailable DENBOW, ALPHONSO Attending Unavailable GANTA, STARR Primary Care Unavailable DENBOW, ALPHONSO Referring Unavailable GANTA, STARR Primary Care Unavailable ANGELO LOJA Referring Unavailable GANTA, STARR Primary Care Unavailable OLDER, DANIELLE Attending Unavailable GANTA, STARR Primary Care Unavailable OLDER, DANIELLE Attending Unavailable GANTA, STARR Primary Care Unavailable Allergies Allergy Classification Reported Allergen(s) Allergy Type Date of Onset Reaction(s) Facility Contrast Media (1 source) Contrast media Substance Allergy Hives [facility] [address] DO Work Phone: Glycopeptides (antibiotic) (1 source) Vancomycin; Translations: [vancomycin] Drug Allergy Hives [facility] 1500 DO Work Phone: Lincosamides (antibiotic) (1 source) Clindamycin; Translations: [clindamycin] Drug Allergy Hives [facility] 1500 DO Work Phone: Macrolides (antibiotic) (1 source) Erythromycin; Translations: [erythromycin] Drug Allergy Hives [facility] 1500 DO Work Phone: (20 sources) Erythromycin; Translations: [ERYTHROMYCIN] Drug Allergy 04-28-2012 [facility], [facility] Other [place] [facility] (20 sources) Azithromycin; Translations: [azithromycin] Drug Allergy 02-25-2019 [facility] Repository (20 sources) Clindamycin; Translations: [CLINDAMYCIN] Drug Allergy 03-09-2019 [facility] (20 sources) Vancomycin; Translations: [VANCOMYCIN] Drug Allergy 09-04-2022 [facility] Medications Current Medications Medication Drug Class(es) Dates Sig (Normalized) Sig (Original) acetaminophen 325 mg / HYDROcodone bitartrate 5 mg oral tablet (4 sources) Opioid Agonist Start: 03-28-2019 End: 04-07-2019 take 1 tablet by mouth every four hours as needed HYDROcodone-aceta minophen (NORCO) 5-325 mg per tablet Indications: Diabetic ulcer of toe of right foot associated with type 2 diabetes mellitus, with bone involvement without evidence of necrosis (HCC) Take 1 (one) tablet by mouth every 4 (four) hours as needed . 30 tablet 0 04/07/2019 Active amoxicillin 875 mg oral tablet (1 source) Penicillin-class Antibacterial Start: 12-17-2021 End: 12-27-2021 take 1 tablet by mouth twice daily amoxicillin (AMOXIL) 875 mg tablet Indications: Chronic frontal sinusitis Take 1 tablet by mouth twice daily for 10 days. 20 tablet 0 12/17/2021 12/27/2021 Active Completed/Discontinued Medications Medication Drug Class(es) Dates Sig (Normalized) Sig (Original) acetaminophen 325 mg oral tablet (20 sources) Start: 03-28-2019 End: 04-07-2019 take 1 tablet by mouth every four hours as needed acetaminophen (TYLENOL) tablet 650 mg Problems Active Problems Problem Classification Problem Date Documented Date Episodic/Chronic Acute and unspecified renal failure (1 source) Injury of kidney; Translations: [Acute kidney failure, unspecified] Episodic Acute bronchitis (1 source) Acute bronchitis; Translations: [Acute bronchitis, unspecified] Episodic Anxiety disorders (6 sources) Anxiety; Translations: [Mixed anxiety and depressive disorder] Onset: 03-31-2019 03-31-2019 Chronic Cardiac dysrhythmias (1 source) Palpitations; Translations: [Palpitations] 07-11-2023 Episodic Chronic ulcer of skin (1 source) Ulcer of toe; Translations: [Ulcer of other part of foot] Chronic Complications of surgical procedures or medical care (3 sources) Postsurgical menopause; Translations: [Asymptomatic postprocedural ovarian failure] Onset: 05-26-2023 Chronic Conditions associated with dizziness or vertigo (2 sources) Meniere's disease; Translations: [Meniere's disease, unspecified ear] Onset: 05-16-2023 05-16-2023 Chronic Conditions associated with dizziness or vertigo (1 source) Dizziness; Translations: [Dizziness and giddiness] Episodic Diabetes mellitus with complications (20 sources) Diabetic foot; Translations: [Skin ulcer of toe due to diabetes mellitus type 2] Onset: 03-28-2019 03-28-2019 Chronic Diabetes mellitus without complication (20 sources) Type 2 diabetes mellitus; Translations: [Diabetes with other specified manifestations, type II or unspecified type, not stated as uncontrolled] Onset: 07-27-2013 03-31-2019 Chronic Diabetes mellitus without complication (1 source) Hyperglycemia, unspecified; Translations: [Hyperglycemia, unspecified] Onset: 09-02-2018 Episodic Disorders of lipid metabolism (7 sources) Hyperlipidemia; Translations: [Hyperlipidemia, unspecified] Onset: 03-31-2019 03-31-2019 Chronic Esophageal disorders (20 sources) Gastroesophageal reflux disease without esophagitis; Translations: [Gastro-esophageal reflux disease without esophagitis] Onset: 10-29-2021 10-29-2021 Chronic Essential hypertension (20 sources) Hypertensive disorder; Translations: [Unspecified essential hypertension] Onset: 10-29-2021 10-29-2021 Chronic Genitourinary symptoms and ill-defined conditions (1 source) Genuine stress incontinence; Translations: [Stress incontinence (female) (male)] 07-23-2023 Chronic Genitourinary symptoms and ill-defined conditions (3 sources) Increased frequency of urination; Translations: [Frequency of micturition] Episodic Infective arthritis and osteomyelitis (except that caused by tuberculosis or sexually transmitted disease) (1 source) Acute osteomyelitis of ankle and/or foot; Translations: [Acute osteomyelitis of ankle or foot, unspecified laterality (HCC)] Chronic Mood disorders (1 source) Depressive disorder; Translations: [Depressive disorder, not elsewhere classified] Chronic Mycoses (1 source) Candidiasis of vagina; Translations: [Vaginal shira] Episodic Nutritional deficiencies (20 sources) Vitamin D deficiency; Translations: [Vitamin D deficiency, unspecified] Onset: 05-26-2020 05-26-2020 Chronic Open wounds of extremities (20 sources) Traumatic amputation, lesser toe; Translations: [Partial traumatic amputation of one right lesser toe, subsequent encounter] Onset: 04-14-2023 04-14-2023 Chronic Other aftercare (1 source) Post-discharge follow-up; Translations: [Encounter for follow-up examination after completed treatment for conditions other than malignant neoplasm] Episodic Other connective tissue disease (1 source) Pain of bilateral hands; Translations: [Pain in right hand] Episodic Other connective tissue disease (1 source) Lateral epicondylitis of right humerus; Translations: [Lateral epicondylitis, right elbow] 04-14-2023 Episodic Other injuries and conditions due to external causes (2 sources) Injury of elbow; Translations: [Unspecified injury of right elbow, initial encounter] Episodic Other lower respiratory disease (1 source) Solitary pulmonary nodule; Translations: [Solitary pulmonary nodule] Onset: 09-02-2018 Episodic Other nervous system disorders (4 sources) Neuropathy; Translations: [Polyneuropathy, unspecified] Chronic Other nervous system disorders (1 source) Other chronic pain; Translations: [Chronic right shoulder pain] Onset: 10-09-2023 Chronic Other non-traumatic joint disorders (1 source) Pain in right shoulder; Translations: [Chronic right shoulder pain] Onset: 10-09-2023 Episodic Other non-traumatic joint disorders (1 source) Pain in right elbow; Translations: [Right elbow pain] Onset: 10-09-2023 Episodic Other nutritional; endocrine; and metabolic disorders (3 sources) Obesity; Translations: [Obesity] Onset: 03-31-2019 03-31-2019 Chronic Other nutritional; endocrine; and metabolic disorders (20 sources) Morbid obesity; Translations: [Morbid (severe) obesity due to excess calories] Onset: 11-05-2022 Chronic Other screening for suspected conditions (not mental disorders or infectious disease) (8 sources) CT of pelvis abnormal; Translations: [Abnormal findings on diagnostic imaging of other abdominal regions, including retroperitoneum] Onset: 05-19-2023 05-12-2023 Episodic Other upper respiratory infections (1 source) Chronic frontal sinusitis; Translations: [Chronic frontal sinusitis] Chronic Residual codes; unclassified (20 sources) Obstructive sleep apnea syndrome; Translations: [Obstructive sleep apnea (adult) (pediatric)] Onset: 05-11-2019 05-11-2019 Chronic Residual codes; unclassified (1 source) Tobacco use and exposure - finding; Translations: [Tobacco use] 07-11-2023 Episodic Substance-related disorders (3 sources) Smoker; Translations: [Current smoker] Onset: 03-31-2019 03-31-2019 Chronic Thyroid disorders (20 sources) Hypothyroidism; Translations: [Unspecified acquired hypothyroidism] Onset: 06-08-2019 Chronic Unclassified (1 source) Low back pain, unspecified back pain laterality, unspecified chronicity, unspecified whether sciatica present; Translations: [Low back pain, unspecified back pain laterality, unspecified chronicity, unspecified whether sciatica present] Onset: 06-27-2023 Past or Other Problems Problem Classification Problem Date Documented Da te Episodic/Chronic Abdominal pain (4 sources) Unspecified abdominal pain; Translations: [Adnexal tenderness] Onset: 09-02-2018 05-12-2023 Episodic Contraceptive and procreative management (20 sources) Patient encounter status; Translations: [Encounter for sterilization] Onset: 10-11-2013 09-24-2021 Episodic Nutritional deficiencies (20 sources) Iron deficiency; Translations: [Iron deficiency] Onset: 05-26-2020 05-26-2020 Episodic Open wounds of extremities (20 sources) Open wound of toe; Translations: [Unspecified open wound of unspecified toe(s) without damage to nail, initial encounter] Onset: 04-30-2021 04-30-2021 Episodic Open wounds of head; neck; and trunk (4 sources) Open wound of abdomen; Translations: [Unspecified open wound of abdominal wall, unspecified quadrant without penetration into peritoneal cavity, initial encounter] Onset: 05-16-2023 04-17-2023 Episodic Other aftercare (1 source) Other joint terminal attack controller (current) drug therapy; Translations: [Medication management] Onset: 06-18-2023 Episodic Other connective tissue disease (3 sources) Fibromyalgia; Translations: [Fibromyalgia] Onset: 03-31-2019 03-31-2019 Episodic Other injuries and conditions due to external causes (1 source) Unspecified injury of right elbow, initial encounter; Translations: [Injury of right elbow, initial encounter] Onset: 04-14-2023 Episodic Other lower respiratory disease (3 sources) Chronic cough; Translations: [Chronic cough] Onset: 05-16-2023 05-16-2023 Episodic Other non-traumatic joint disorders (20 sources) Hip pain; Translations: [Pain in left hip] Onset: 03-05-2022 Episodic Other non-traumatic joint disorders (1 source) Pain in left hip; Translations: [Left hip pain] Onset: 12-06-2022 Episodic Residual codes; unclassified (20 sources) History of clinical finding in subject; Translations: [Personal history of other specified conditions] Onset: 09-24-2013 09-24-2021 Episodic Screening and history of mental health and substance abuse codes (20 sources) H/O: depression; Translations: [Personal history of other mental and behavioral disorders] Onset: 09-24-2013 03-31-2019 Episodic Skin and subcutaneous tissue infections (5 sources) Abscess; Translations: [Cutaneous abscess, unspecified] Onset: 04-17-2023 Episodic Spondylosis; intervertebral disc disorders; other back problems (20 sources) Sciatica; Translations: [Sciatica, left side] Onset: 03-05-2022 Episodic Results Test Name Value Interpretation Reference Range Facil ity Vital Signs Date Time Vital Sign Value Performing Clinician Facility 07-23-2023 13:45-0400 Body height 162.6 cm Lidia Mcguire APRN.CNP Work Phone: [facility] 07-23-2023 13:45-0400 Body weight 116.12 kg Lidia Mcguire APRN.SWISS MACHINIST Work Phone: [facility] 07-23-2023 13:45-0400 Diastolic blood pressure 78 mm[Hg] Lidia Mcguire APRN.SWISS MACHINIST Work Phone: [facility] 07-23-2023 13:45-0400 Systolic blood pressure 130 mm[Hg] Lidia Mcguire APRN.SWISS MACHINIST Work Phone: [facility] 07-11-2023 10:10-0400 Body height 162.6 cm Alphonso Denbow PA-C Work Phone: [facility] 07-11-2023 10:10-0400 Body temperature 98.6 [degF] Alphonso Denbow PA-C Work Phone: [facility] 07-11-2023 10:10-0400 Body weight 120.2 kg Alphonso Denbow PA-C Work Phone: [facility] 07-11-2023 10:10-0400 Diastolic blood pressure 62 mm[Hg] Alphonso Denbow PA-C Work Phone: [facility] 07-11-2023 10:10-0400 Heart rate 91 /min Alphonso Denbow PA-C Work Phone: [facility] 07-11-2023 10:10-0400 Respiratory rate 14 /min Alphonso Denbow PA-C Work Phone: [facility] 07-11-2023 10:10-0400 SaO2% (BldA) [Mass fraction] 94 % Alphonso Denbow PA-C Work Phone: [facility] 07-11-2023 10:10-0400 Systolic blood pressure 130 mm[Hg] Alphonso Denbow PA-C Work Phone: [facility] 06-27-2023 13:52-0400 Diastolic blood pressure 84 mm[Hg] Alphonso Denbow PA-C Work Phone: [facility] 06-27-2023 13:52-0400 Systolic blood pressure 147 mm[Hg] Alphonso Denbow PA-C Work Phone: [facility] 06-27-2023 13:44-0400 Body height 162.6 cm Alphonso Denbow PA-C Work Phone: [facility] 06-27-2023 13:44-0400 Body temperature 98.4 [degF] Alphonso Denbow PA-C Work Phone: [facility] 06-27-2023 13:44-0400 Body weight 122.47 kg Alphonso Denbow PA-C Work Phone: [facility] 06-27-2023 13:44-0400 Heart rate 84 /min Alphonso Denbow PA-C Work Phone: [facility] 06-27-2023 13:44-0400 Respiratory rate 16 /min Alphonso Denbow PA-C Work Phone: [facility] 06-27-2023 13:44-0400 SaO2% (BldA) [Mass fraction] 96 % Alphonso Denbow PA-C Work Phone: [facility] 06-06-2023 12:35-0400 Diastolic blood pressure 84 mm[Hg] Alphonso Denbow PA-C Work Phone: [facility] 06-06-2023 12:35-0400 Systolic blood pressure 138 mm[Hg] Alphonso Denbow PA-C Work Phone: [facility] 06-06-2023 12:24-0400 Body height 162.6 cm Alphonso Denbow PA-C Work Phone: [facility] 06-06-2023 12:24-0400 Body temperature 97.7 [degF] Alphonso Denbow PA-C Work Phone: [facility] 06-06-2023 12:24-0400 Body weight 112.04 kg Alphonso Denbow PA-C Work Phone: [facility] 06-06-2023 12:24-0400 Heart rate 83 /min Alphonso Denbow PA-C Work Phone: [facility] 06-06-2023 12:24-0400 Respiratory rate 16 /min Alphonso Marks PA-C Work Phone: [facility] 06-06-2023 12:24-0400 SaO2% (BldA) [Mass fraction] 95 % Alphonso Marks PA-C Work Phone: [facility] 05-16-2023 10:33-0400 Diastolic blood pressure 86 mm[Hg] Danielle Older ADULT PSYCHIATRIST.SWISS MACHINIST Work Phone: [facility] 05-16-2023 10:33-0400 Heart rate 82 /min Danielle Older ADULT PSYCHIATRIST.SWISS MACHINIST Work Phone: [facility] 05-16-2023 10:33-0400 Systolic blood pressure 156 mm[Hg] Danielle Older ADULT PSYCHIATRIST.SWISS MACHINIST Work Phone: [facility] 05-16-2023 10:12-0400 Body temperature 97.59 [degF] Danielle Older ADULT PSYCHIATRIST.SWISS MACHINIST Work Phone: [facility] 05-16-2023 10:12-0400 Body weight 117.94 kg Danielle Older ADULT PSYCHIATRIST.SWISS MACHINIST Work Phone: [facility] 05-16-2023 10:12-0400 Respiratory rate 16 /min Danielle Older ADULT PSYCHIATRIST.SWISS MACHINIST Work Phone: [facility] 05-16-2023 10:12-0400 SaO2% (BldA) [Mass fraction] 95 % Danielle Older ADULT PSYCHIATRIST.SWISS MACHINIST Work Phone: [facility] 05-12-2023 10:12-0400 Body temperature 98.01 [degF] Danielle Older ADULT PSYCHIATRIST.SWISS MACHINIST Work Phone: [facility] 05-12-2023 10:12-0400 Body weight 117.48 kg Danielle Older ADULT PSYCHIATRIST.SWISS MACHINIST Work Phone: [facility] 05-12-2023 10:12-0400 Diastolic blood pressure 86 mm[Hg] Danielle Older ADULT PSYCHIATRIST.SWISS MACHINIST Work Phone: [facility] 05-12-2023 10:12-0400 Heart rate 80 /min Danielle Older ADULT PSYCHIATRIST.SWISS MACHINIST Work Phone: [facility] 05-12-2023 10:12-0400 Respiratory rate 16 /min Danielle Older ADULT PSYCHIATRIST.SWISS MACHINIST Work Phone: [facility] 05-12-2023 10:12-0400 SaO2% (BldA) [Mass fraction] 96 % Danielle Older ADULT PSYCHIATRIST.SWISS MACHINIST Work Phone: [facility] 05-12-2023 10:12-0400 Systolic blood pressure 144 mm[Hg] Danielle Older ADULT PSYCHIATRIST.SWISS MACHINIST Work Phone: [facility] 04-17-2023 09:39-0400 Body height 162.6 cm Keke Waylon PA-C Work Phone: [facility] 04-17-2023 09:39-0400 Body temperature 97.2 [degF] Keke Waylon PA-C Work Phone: [facility] 04-17-2023 09:39-0400 Body weight 118.75 kg Keke Luis Lopez PA-C Work Phone: [facility] 04-17-2023 09:39-0400 Diastolic blood pressure 88 mm[Hg] Keke Luis Lopez PA-C Work Phone: [facility] 04-17-2023 09:39-0400 Heart rate 84 /min Keke Waylon PA-C Work Phone: [facility] 04-17-2023 09:39-0400 SaO2% (BldA) [Mass fraction] 95 % Keke Luis Lopez PA-C Work Phone: [facility] 04-17-2023 09:39-0400 Systolic blood pressure 136 mm[Hg] Keke Luis Lopez PA-C Work Phone: [facility] 04-15-2023 14:01-0400 Body weight 117.94 kg Cassius Fletcher ADULT PSYCHIATRIST.WORKFORCE CONSULTANT Work Phone: [facility] 04-15-2023 14:01-0400 Diastolic blood pressure 80 mm[Hg] Cassius Fletcher ADULT PSYCHIATRIST.WORKFORCE CONSULTANT Work Phone: [facility] 04-15-2023 14:01-0400 Heart rate 60 /min Cassius Fletcher ADULT PSYCHIATRIST.WORKFORCE CONSULTANT Work Phone: [facility] 04-15-2023 14:01-0400 Respiratory rate 16 /min Cassius Fletcher ADULT PSYCHIATRIST.WORKFORCE CONSULTANT Work Phone: [facility] 04-15-2023 14:01-0400 Systolic blood pressure 140 mm[Hg] Cassius Fletcher ADULT PSYCHIATRIST.WORKFORCE CONSULTANT Work Phone: [facility] 04-14-2023 08:15-0400 Body weight 112.49 kg Tammy Zhou PA-C Work Phone: [facility] 03-20-2023 10:46-0400 Body weight 120.2 kg Starr Garcia MD Work Phone: [facility] 03-20-2023 10:46-0400 Diastolic blood pressure 84 mm[Hg] Starr Garcia MD Work Phone: [facility] 03-20-2023 10:46-0400 Heart rate 76 /min Starr Garcia MD Work Phone: [facility] 03-20-2023 10:46-0400 Respiratory rate 16 /min Starr Garcia MD Work Phone: [facility] 03-20-2023 10:46-0400 SaO2% (BldA) [Mass fraction] 97 % Starr Garcia MD Work Phone: [facility] 03-20-2023 10:46-0400 Systolic blood pressure 148 mm[Hg] Starr Garcia MD Work Phone: [facility] 01-29-2023 08:00-0400 Diastolic blood pressure 90 mm[Hg] Alissa Lemon PT [facility] 01-29-2023 08:00-0400 Systolic blood pressure 130 mm[Hg] Alissa Lemon PT [facility] 12-06-2022 08:00-0500 Diastolic blood pressure 84 mm[Hg] Alissa Lemon PT [facility] 12-06-2022 08:00-0500 Systolic blood pressure 128 mm[Hg] Alissa Lemon PT [facility] 11-05-2022 13:58-0500 Body height 162.6 cm Starr Garcia MD Work Phone: [facility] 11-05-2022 13:58-0500 Body temperature 98.1 [degF] Starr Garcia MD Work Phone: [facility] 11-05-2022 13:58-0500 Body weight 113.4 kg Starr Garcia MD Work Phone: [facility] 11-05-2022 13:58-0500 Diastolic blood pressure 60 mm[Hg] Starr Garcia MD Work Phone: [facility] 11-05-2022 13:58-0500 Heart rate 87 /min Starr Garcia MD Work Phone: [facility] 11-05-2022 13:58-0500 Respiratory rate 14 /min Starr Garcia MD Work Phone: [facility] 11-05-2022 13:58-0500 SaO2% (BldA) [Mass fraction] 96 % Starr Garcia MD Work Phone: [facility] 11-05-2022 13:58-0500 Systolic blood pressure 134 mm[Hg] Starr Garcia MD Work Phone: [facility] 09-18-2022 15:50-0500 Body temperature 98.49 [degF] Danielle Older ADULT PSYCHIATRIST.SWISS MACHINIST Work Phone: [facility] 09-18-2022 15:50-0500 Body weight 112.95 kg Danielle Older ADULT PSYCHIATRIST.SWISS MACHINIST Work Phone: [facility] 09-18-2022 15:50-0500 Diastolic blood pressure 80 mm[Hg] Danielle Older ADULT PSYCHIATRIST.SWISS MACHINIST Work Phone: [facility] 09-18-2022 15:50-0500 Heart rate 84 /min Danielle Older ADULT PSYCHIATRIST.SWISS MACHINIST Work Phone: [facility] 09-18-2022 15:50-0500 Respiratory rate 16 /min Danielle Older ADULT PSYCHIATRIST.SWISS MACHINIST Work Phone: [facility] 09-18-2022 15:50-0500 Systolic blood pressure 132 mm[Hg] Danielle Older ADULT PSYCHIATRIST.SWISS MACHINIST Work Phone: [facility] 09-04-2022 14:51-0500 Body temperature 98.71 [degF] Danielle Older ADULT PSYCHIATRIST.SWISS MACHINIST Work Phone: [facility] 09-04-2022 14:51-0500 Body weight 108.41 kg Danielle Older ADULT PSYCHIATRIST.SWISS MACHINIST Work Phone: [facility] 09-04-2022 14:51-0500 Diastolic blood pressure 74 mm[Hg] Danielle Older ADULT PSYCHIATRIST.SWISS MACHINIST Work Phone: [facility] 09-04-2022 14:51-0500 Heart rate 88 /min Danielle Older ADULT PSYCHIATRIST.SWISS MACHINIST Work Phone: [facility] 09-04-2022 14:51-0500 Respiratory rate 16 /min Danielle Older ADULT PSYCHIATRIST.SWISS MACHINIST Work Phone: [facility] 09-04-2022 14:51-0500 SaO2% (BldA) [Mass fraction] 97 % Danielle Older ADULT PSYCHIATRIST.SWISS MACHINIST Work Phone: [facility] 09-04-2022 14:51-0500 Systolic blood pressure 132 mm[Hg] Danielle Older ADULT PSYCHIATRIST.SWISS MACHINIST Work Phone: [facility] 03-18-2022 17:28-0400 Body temperature 98.91 [degF] Kati Bustos ADULT PSYCHIATRIST.SWISS MACHINIST Work Phone: [facility] 03-18-2022 17:28-0400 Body weight 108.77 kg Kati Bustos ADULT PSYCHIATRIST.SWISS MACHINIST Work Phone: [facility] 03-18-2022 17:28-0400 Diastolic blood pressure 72 mm[Hg] Kati Bustos ADULT PSYCHIATRIST.SWISS MACHINIST Work Phone: [facility] 03-18-2022 17:28-0400 Heart rate 90 /min Kati Bustos ADULT PSYCHIATRIST.SWISS MACHINIST Work Phone: [facility] 03-18-2022 17:28-0400 Respiratory rate 18 /min Kati Bustos ADULT PSYCHIATRIST.SWISS MACHINIST Work Phone: [facility] 03-18-2022 17:28-0400 SaO2% (BldA) [Mass fraction] 96 % Kati Bustos ADULT PSYCHIATRIST.SWISS MACHINIST Work Phone: [facility] 03-18-2022 17:28-0400 Systolic blood pressure 128 mm[Hg] Kati Bustos ADULT PSYCHIATRIST.SWISS MACHINIST Work Phone: [facility] 03-01-2022 07:58-0400 Body weight 112.04 kg Danielle Older ADULT PSYCHIATRIST.SWISS MACHINIST Work Phone: [facility] 03-01-2022 07:58-0400 Diastolic blood pressure 82 mm[Hg] Danielle Older ADULT PSYCHIATRIST.SWISS MACHINIST Work Phone: [facility] 03-01-2022 07:58-0400 Heart rate 80 /min Danielle Older ADULT PSYCHIATRIST.SWISS MACHINIST Work Phone: [facility] 03-01-2022 07:58-0400 Respiratory rate 16 /min Danielle Older ADULT PSYCHIATRIST.SWISS MACHINIST Work Phone: [facility] 03-01-2022 07:58-0400 Systolic blood pressure 136 mm[Hg] Danielle Older ADULT PSYCHIATRIST.SWISS MACHINIST Work Phone: [facility] 12-17-2021 14:44-0400 Body height 162.6 cm Starr Garcia MD Work Phone: [facility] 12-17-2021 14:44-0400 Body temperature 98.2 [degF] Starr Garcia MD Work Phone: [facility] 12-17-2021 14:44-0400 Body weight 112.04 kg Starr Garcia MD Work Phone: [facility] 12-17-2021 14:44-0400 Diastolic blood pressure 66 mm[Hg] Starr Garcia MD Work Phone: [facility] 12-17-2021 14:44-0400 Heart rate 93 /min Starr Garcia MD Work Phone: [facility] 12-17-2021 14:44-0400 Respiratory rate 16 /min Starr Garcia MD Work Phone: [facility] 12-17-2021 14:44-0400 SaO2% (BldA) [Mass fraction] 95 % Starr Garcia MD Work Phone: [facility] 12-17-2021 14:44-0400 Systolic blood pressure 134 mm[Hg] Starr Garcia MD Work Phone: [facility] 02-02-2021 10:44-0400 Body height 165.1 cm Choco Pugh MD Work Phone: YY-Rikjunsjpk-AMY [facility] [address] DO Work Phone: 02-02-2021 10:44-0400 Body mass index (BMI) [Ratio] 39.11 kg/m2 Choco Pugh MD Work Phone: JT-Fpeidbypel-AAI [facility] [address] DO Work Phone: 02-02-2021 10:44-0400 Body surface area Derived from formula 2.12 m2 Choco Pugh MD Work Phone: FY-Jhwnshqbjg-MIF [facility] DO Work Phone: 02-02-2021 10:44-0400 Body weight 106.6 kg Choco Pugh MD Work Phone: JX-Kflysbbybn-WQU [facility] [address] DO Work Phone: 02-02-2021 10:44-0400 Diastolic blood pressure 77 mm[Hg] Choco Pugh MD Work Phone: RZ-Zjmobwiuay-MQP [facility] [address] DO Work Phone: 02-02-2021 10:44-0400 Heart rate 78 /min Choco Pugh MD Work Phone: MC-Mlceonqoku-RJM [facility] DO Work Phone: 02-02-2021 10:44-0400 Systolic blood pressure 130 mm[Hg] Choco Pugh MD Work Phone: BB-Jmviblbqcd-RSB [facility] [address] DO Work Phone: 02-02-2021 10:44-0400 0 1 Choco Pugh MD Work Phone: LH-Cckaeozzxj-ZLJ [facility] DO Work Phone: Encounters Encounter Date Encounter Type Care Provider Facility Start: 10-09-2023 End: 10-09-2023 [facility] Facility:[facility] Start: 10-09-2023 End: 10-09-2023 ambulatory [facility] Facility:[facility] Start: 09-01-2023 Refill Danielle Older ADULT PSYCHIATRIST .SWISS MACHINIST Work Phone: [facility] [place] Procedures Date Procedure Procedure Detail Performing Clinician Start: 08-20-2023 Us breast uni real t henrry with image limited Nimo Older ADULT PSYCHIATRIST.SWISS MACHINIST Work Phone: Start: 08-20-2023 Digital breast tomos ynthesis unilateral Nimo Older ADULT PSYCHIATRIST.SWISS MACHINIST Work Phone: Start: 07-11-2023 Urnls dip stick/tabl et rgnt auto w/o microscopy Alphonso Marks PA-C Work Phone: Start: 05-26-2023 Dxa bone density kaycee dy 1/> sites axial skel Starr Garcia MD Work Phone: Start: 05-19-2023 Us pelvic nonobstetr ic image dcmtn limited/f/u Danielle Older ADULT PSYCHIATRIST.SWISS MACHINIST Work Phone: Start: 05-12-2023 Urnls dip stick/tabl et rgnt auto w/o microscopy Danielle Older ADULT PSYCHIATRIST.SWISS MACHINIST Work Phone: Start: 03-18-2022 Urnls dip stick/tabl et rgnt auto w/o microscopy Katya Sanchez ADULT PSYCHIATRIST.SWISS MACHINIST Work Phone: Start: 10-17-2021 Mammography Starr sinclair MD Work Phone: Start: 04-28-2021 Adult depression scr eening assessment Starr Garcia MD Work Phone: Start: 04-07-2019 Glucose [Mass/volume ] in Blood Ziad Payton Work Phone: Start: 04-07-2019 Glucose [Mass/volume ] in Blood Ziad Payton Work Phone: Start: 04-07-2019 Glucose [Mass/volume ] in Blood Ziad Payton Work Phone: Start: 04-07-2019 Glucose [Mass/volume ] in Blood Ziad Payton Work Phone: Start: 04-07-2019 Creatinine [Mass/vol ume] in Serum or Plasma Hien Bustos Start: 04-07-2019 Glucose [Mass/volume ] in Blood Ziad Payton Work Phone: Start: 04-06-2019 Glucose [Mass/volume ] in Blood Ziad Payton Work Phone: Start: 04-06-2019 Glucose [Mass/volume ] in Blood Ziad Payton Work Phone: Start: 04-06-2019 Glucose [Mass/volume ] in Blood Ziad Payton Work Phone: Start: 04-06-2019 Creatine kinase [Enz ymatic activity/volume] in Serum or Plasma Rylie Pierre Start: 04-06-2019 Creatinine [Mass/vol ume] in Serum or Plasma Hien Bustos Start: 04-06-2019 Vancomycin [Mass/vol ume] in Serum or Plasma Mariano Parkerzion Kirkland Work Phone: Start: 04-05-2019 Glucose [Mass/volume ] in Blood Ziad Payton Work Phone: Start: 04-05-2019 Glucose [Mass/volume ] in Blood Ziad Payton Work Phone: Start: 04-05-2019 Glucose [Mass/volume ] in Blood Ziad Payton Work Phone: Start: 04-05-2019 Creatinine [Mass/vol ume] in Serum or Plasma Rylie Pierre Start: 04-05-2019 Vancomycin [Mass/vol ume] in Serum or Plasma --trough Victor Hugo Kilgore Start: 04-05-2019 Glucose [Mass/volume ] in Blood Ziad Payton Work Phone: Start: 04-05-2019 Glucose [Mass/volume ] in Blood Ziad Payton Work Phone: Start: 04-04-2019 Glucose [Mass/volume ] in Blood Ziad Payton Work Phone: Start: 04-04-2019 Glucose [Mass/volume ] in Blood Ziad Payton Work Phone: Start: 04-04-2019 Glucose [Mass/volume ] in Blood Ziad Payton Work Phone: Start: 04-04-2019 Glucose [Mass/volume ] in Blood Ziad Payton Work Phone: Start: 04-03-2019 Glucose [Mass/volume ] in Blood Ziad Payton Work Phone: Start: 04-03-2019 Glucose [Mass/volume ] in Blood Ziad Payton Work Phone: Start: 04-03-2019 Glucose [Mass/volume ] in Blood Ziad Payton Work Phone: Start: 04-03-2019 Creatinine [Mass/vol ume] in Serum or Plasma Hien Bustos Start: 04-03-2019 Glucose [Mass/volume ] in Blood Ziad Payton Work Phone: Start: 04-02-2019 Glucose [Mass/volume ] in Blood Ziad Payton Work Phone: Start: 04-02-2019 Radiologic examinati on foot 2 views Yaritza Cain Work Phone: Start: 04-02-2019 Glucose [Mass/volume ] in Blood Yaritza Cain Work Phone: Start: 04-02-2019 Procedure on tissue specimen Zeferino Geronimo Work Phone: Start: 04-02-2019 Aerobic microbial culture Zeferino Geronimo Work Phone: Start: 04-02-2019 Bacteria identified in Bone by Aerobe culture Zeferino Geronimo Work Phone: Start: 04-02-2019 Bacteria identified in Unspecified specimen by Anaerobe culture Zeferino Geronimo Work Phone: Start: 04-02-2019 Culture bacterial an y source anaerobic iso&id Zeferino Geronimo Work Phone: Start: 04-02-2019 End: 04-02-2019 AMPUTATION TOE(S) Zeferino benjamin Work Phone: Start: 04-02-2019 Glucose [Mass/volume ] in Blood Yaritza Cain Work Phone: Start: 04-02-2019 Glucose [Mass/volume ] in Blood Yaritza Cain Work Phone: Start: 04-02-2019 Choriogonadotropin.b eta subunit ( test) [Presence] in Serum or Plasma Mamadou Hilliard Work Phone: Start: 04-02-2019 Vancomycin [Mass/vol ume] in Serum or Plasma --trough Campos T Plavko Start: 04-02-2019 Glucose [Mass/volume ] in Blood Yaritza Cain Work Phone: Start: 04-01-2019 Glucose [Mass/volume ] in Blood Yaritza Cain Work Phone: Start: 04-01-2019 End: 04-01-2019 Glucose [Mass/volume] in Blood Yaritza Cain Work Phone: Start: 04-01-2019 Basic metabolic 1998 panel - Serum or Plasma Dominick Santos Work Phone: Start: 04-01-2019 Complete blood count with white cell differential, automated Dominick Santos Work Phone: Start: 04-01-2019 Complete blood count with white cell differential, manual Dominick Santos Work Phone: Start: 04-01-2019 Magnesium [Mass/volu me] in Serum or Plasma Dominick Santos Work Phone: Start: 03-31-2019 Glucose [Mass/volume ] in Blood Demetriad Payton Work Phone: Start: 03-31-2019 Glucose [Mass/volume ] in Blood Ziad Payton Work Phone: Start: 03-31-2019 Glucose [Mass/volume ] in Blood Ziad Payton Work Phone: Start: 03-31-2019 Basic metabolic 1998 panel - Serum or Plasma Dominick Santos Work Phone: Start: 03-31-2019 Complete blood count with white cell differential, automated Dominick Santos Work Phone: Start: 03-31-2019 Complete blood count with white cell differential, manual Dominick Santos Work Phone: Start: 03-31-2019 Magnesium [Mass/volu me] in Serum or Plasma Dominick Santos Work Phone: Start: 03-31-2019 Glucose [Mass/volume ] in Blood Ziad Payton Work Phone: Start: 03-31-2019 Vancomycin [Mass/vol ume] in Serum or Plasma --trough Dami Hernandez Start: 03-30-2019 Glucose [Mass/volume ] in Blood Ziad Payton Work Phone: Start: 03-30-2019 Glucose [Mass/volume ] in Blood Ziad Payton Work Phone: Start: 03-30-2019 Glucose [Mass/volume ] in Blood Ziad Payton Work Phone: Start: 03-30-2019 Dup-scan xtr veins unilateral/limited study Charley Dowd [place] Work Phone: Start: 03-30-2019 Mri lower extrem oth /thn jt w/o contr matrl Mariano Kirkland Work Phone: Start: 03-30-2019 Glucose [Mass/volume ] in Blood Yaritza Cain Work Phone: Start: 03-30-2019 Basic metabolic 1998 panel - Serum or Plasma Dominick Santos Work Phone: Start: 03-30-2019 Magnesium [Mass/volu me] in Serum or Plasma Dominick Holguin [facility] Work Phone: Start: 03-30-2019 Complete blood count with white cell differential, automated [employer] [facility] Work Phone: Start: 03-30-2019 Complete blood count with white cell differential, manual Dominick Holguin [facility] Work Phone: Start: 03-30-2019 Bacteria identified in Unspecified specimen by Aerobe culture Mariano Kirkland Work Phone: Start: 03-30-2019 Urinalysis Mariano Kirkland Work Phone: Start: 03-29-2019 Glucose [Mass/volume ] in Blood Yaritza Cain Work Phone: Start: 03-29-2019 Vancomycin [Mass/vol ume] in Serum or Plasma --trough Ryan J Cutlip Start: 03-29-2019 Glucose [Mass/volume ] in Blood Yaritza Bahri Work Phone: Start: 03-29-2019 Electrocardiogram Provi erich Not In System Start: 03-29-2019 Glucose [Mass/volume ] in Blood Demetriad Payton Work Phone: Start: 03-29-2019 Glucose [Mass/volume ] in Blood Demetriad Payton Work Phone: Start: 03-29-2019 Glucose [Mass/volume ] in Blood Yaritza Cain Work Phone: Start: 03-28-2019 Glucose [Mass/volume ] in Blood Yaritza Cain Work Phone: Start: 03-28-2019 Glucose [Mass/volume ] in Blood Yaritza Cain Work Phone: Start: 03-28-2019 Bacteria identified in Blood by Culture Marianokady Kirkland Work Phone: Start: 03-28-2019 C reactive protein [Mass/volume] in Serum or Plasma Marianokady Kirkland Work Phone: Start: 03-28-2019 Erythrocyte sediment ation rate by Westergren method Marianokady Kirkland Work Phone: Start: 03-28-2019 Hemoglobin A1c/Hemoglobin.total in Blood Charley Eldridgewood Work Phone: Start: 03-28-2019 Aerobic microbial culture Marianokady Kirkland Work Phone: Start: 03-28-2019 Urinalysis Yaritza Cain Work Phone: Start: 03-28-2019 Glucose [Mass/volume ] in Blood Yaritza Cain Work Phone: Start: 03-28-2019 Complete blood count with white cell differential, automated [employer] Cain Work Phone: Start: 03-28-2019 Complete blood count with white cell differential, manual [employer] Cain Work Phone: Start: 03-28-2019 Basic metabolic 2000 panel - Serum or Plasma Yaritza Cain Work Phone: Start: 03-28-2019 Glucose [Mass/volume ] in Blood Yaritza Cain Work Phone: Start: 03-28-2019 Troponin measurement Sa ra Zaira Duran Work Phone: Start: 03-28-2019 X-ray of right foot Epifanio Duran Work Phone: Start: 03-28-2019 12 lead ECG Isaac Hsieh Work Phone: Start: 03-28-2019 Bacteria identified in Blood by Culture Dee Marx Work Phone: Start: 03-28-2019 Basic metabolic 2000 panel - Serum or Plasma Isaac Duran Work Phone: Start: 03-28-2019 Choriogonadotropin.b eta subunit ( test) [Presence] in Serum or Plasma Isaac Duran Work Phone: Start: 03-28-2019 Complete blood count with white cell differential, automated Isaac Duran Work Phone: Start: 03-28-2019 Complete blood count with white cell differential, manual Isaac Duran Work Phone: Start: 03-28-2019 Ethanol [Mass/volume ] in Serum or Plasma Isaac Duran Work Phone: Start: 03-28-2019 Hepatic function 200 0 panel - Serum or Plasma Isaac Duran Work Phone: Start: 03-28-2019 Lactate [Moles/volum e] in Serum or Plasma Deekota Marx Work Phone: Start: 03-28-2019 LAVENDER TOP Dee Jese nelson Work Phone: Start: 03-28-2019 LIGHT BLUE TOP Dee Marx Work Phone: Start: 03-28-2019 LIGHT GREEN TOP Dee Marx Work Phone: Start: 03-28-2019 Lipase [Enzymatic activity/volume] in Serum or Plasma Isaac Duran Work Phone: Start: 03-28-2019 MINT GREEN TOP Dee Marx Work Phone: Start: 03-28-2019 RAINBOW DRAW Dee Jese nelson Work Phone: Start: 03-28-2019 Troponin measurement Sa ra Zaira Duran Work Phone: Start: 03-28-2019 3 comp foot exam completed Dee Marx Start: 03-09-2019 12 lead ECG Ishmael Montgomery Work Phone: Start: 03-09-2019 Basic metabolic 2000 panel - Serum or Plasma Ishmael Montgomery Work Phone: Start: 03-09-2019 Complete blood count with white cell differential, automated Ishmael Montgomery Work Phone: Start: 03-09-2019 Complete blood count with white cell differential, manual Ishmael Montgomery Work Phone: Start: 03-09-2019 Hepatic function 200 0 panel - Serum or Plasma Ishmael Montgomery Work Phone: Start: 03-09-2019 Lactate [Moles/volum e] in Serum or Plasma Ishmael Montgomery Work Phone: Start: 03-09-2019 Troponin measurement Golden itzel Montgomery Work Phone: Plan of Treatment Date Care Activity Detail Author Start: 07-23-2024 Mammography Mammogram Screening [facility] Start: 07-11-2024 Annual PCP Team Bag Sealer korey Disease Visit Annual PCP Team Chronic Disease Visit [facility] Start: 06-27-2024 Annual PCP Team Bag Sealer korey Disease Visit Annual PCP Team Chronic Disease Visit [facility] Start: 06-06-2024 ANNUAL PCP TEAM GEOLOGICAL DRAFTER KOREY DISEASE VISIT ANNUAL PCP TEAM CHRONIC DISEASE VISIT [facility] Start: 06-01-2024 HPV TESTING HPV TESTING [facility] Start: 06-01-2024 PAP TESTING PAP TESTING [facility] Start: 05-16-2024 ANNUAL PCP TEAM GEOLOGICAL DRAFTER KOREY DISEASE VISIT ANNUAL PCP TEAM CHRONIC DISEASE VISIT [facility] Start: 05-16-2024 COLORECTAL CANCER SCREENING COLORECTAL CANCER SCREENING [facility] Immunizations Immunization Date Immunization Notes Care Provider Fa cility 2020 hepatitis B vaccine, adult dosage Starr Garcia MD Work Phone: [facility] 2020 hepatitis B vaccine, unspecified formulation Laya Quiles APRN.CNP Work Phone: [facility] 06-14-2014 pneumococcal polysaccharide vaccine, 23 valent Starr Garcia MD Work Phone: [facility] Payers Date Payer Category Payer Medicare [id number] 2021 Medicare [id number] 2020 Medicaid [id number] 2020 Medicare [id number] 2020 Medicare [id number] 2018 Unknown 2017 Medicaid [facility] [place]xx 2017-Present xxxxxxxxxxx [id number] 2017 Medicaid [id number] 2017 Medicaid [facility] [place] [id number] 2017-Present [id number] 1971 Unknown [id number] 1971 Unknown [id number] 1971 Unknown [id number] 1971 Unknown [id number] 1971 Unknown [id number] 1971 Unknown [id number] Social History Date Type Detail Facility Start: 04-20-2019 End: 11-05-2022 Tobacco smoking status NHIS Current every day smoker [facility] History of tobacco use Cigarette Smoker [facility] Start: 04-20-2019 End: 01-29-2023 Cigarettes smoked current (pack per day) - Reported [facility] Start: 03-09-2019 End: 01-29-2022 History SDOH Alcohol Frequency 1 [facility] Start: 1970 Sex Assigned At Not on file [facility] Start: 04-20-2019 End: 11-05-2022 Tobacco use and exposure Never used [facility] Start: 04-20-2019 Alcohol intake Lifetime non-drinker (finding) [facility] Start: 12-17-2021 End: 07-23-2023 Alcohol intake Current non-drinker of alcohol (finding) [facility] Start: 05-23-2020 History SDOH Alcohol Std Drinks [address] [facility] Start: 05-23-2020 End: 09-03-2022 History SDOH Social Connections Phone [address] [facility] Start: 05-23-2020 End: 09-03-2022 History SDOH Social Connections Membership [address] [facility] Start: 05-23-2020 End: 09-03-2022 History SDOH Physical Activity DPW [address] [facility] Start: 05-23-2020 Education [address] [facility] Start: 12-07-2021 End: 03-07-2022 Exposure to SARS-CoV-2 (event) Not sure [facility] Work Phone: Start: 1970 Sex Assigned At Female [facility] Start: 09-03-2022 History SDOH Financial [address] [facility] Start: 09-02-2022 End: 01-29-2023 Social connection and isolation panel [facility] Do you belong to any clubs or organizations such as alevism groups, unions, fraternal or athletic groups, or school groups? No [facility] Are you now , , , , never or living with a partner? [facility] How often to you hav e a drink containing alcohol? Monthly or less [facility] How many standard dr inks containing alcohol do you have on a typical day? 1 or [address] [facility] How often do you hav e 6 or more drinks on 1 occasion? Never [facility] How hard is it for y ou to pay for the very basics like food, housing, medical care, and heating Not very hard [facility] Adult Depression Screening Assessment [address] [facility] Work Phone: (I/We) worried whesarai er (my/our) food would run out before (I/we) got money to buy more. Never true [facility] The food that (I/we) bought just didn't last, and (I/we) didn't have money to get more. Sometimes true [facility] Start: 04-25-2022 Sexual orientation Heterosexual (finding) [facility] Medical Equipment Procedure Code Equipment Code Equipment Origin al Text Equipment Identifier Dates Clip Flsh Int Fa lop Tube Ti - [id number] Start: 01-05-2014 Start: 02-19-2021 End: 03-20-2023 Clinical Notes 12-17-2021 to 10-09-2023 Telephone Encounter - Tala Aleman - 09/01/2023 12:40 PM ESTTelephone Encounter - Carley Escobar Ma - 08/25/2023 9:25 AM ESTTelephone Encounter - Nimo Sandoval APRN.CNP - 08/25/2023 8:36 AM EST Note Date & Type Note Facility 10-09-2023 Note HNO ID: [id number] Author: SIRISHA MANDEL RT(R) Service: Radiology Author Type: Technologist Type: Progress Notes Filed: 10/09/2023 10:48 Note Text: Radiology Service Progress Note PATIENT NAME: Maryanne Minaya DATE OF SERVICE: October 09, 2023 TIME: 10:30 AM PATIENT IDENTITY VERIFICATION COMPLETED USING TWO (2) IDENTIFIERS: Name and Date of confirmed by patient verbally. FALL SCREENING: Has the patient had 2 falls in the last year or 1 fall with injury or currently using an Ambulatory Assistive Device (Walker, Cane, Wheelchair, Crutches, etc.)? No PATIENT GENDER DATA: Female. status: : No status: NO. PATIENT RELEVANT IMPLANT DATA REVIEWED: Yes RADIOLOGY DEPARTMENT: General X-ray: Exam(s) Completed: Upper Extremity X-Ray(s): Shoulder, AP / TRUE AP / AXILLARY right and Elbow, right PERIPHERAL IV DATA: Not applicable SIGNED BY: RT Vidal(R) October 09, 2023 10:30 AM [facility] 10-09-2023 Note HNO ID: [id number] Author: DANIELLE SANDOVAL APRN.SWISS MACHINIST Service: ? Author Type: Nurse Practitioner Type: Progress Notes Filed: 10/09/2023 16:06 Note Text: CC: Patient presents with: Pain (Shoulder Pain): R shoulder and R elbow pain x 2 weeks, no known injury HPI Maryanne Minaya is a 52 year old female who presents today for right shoulder and right elbow pain. First episode was last summer which started without injury and had some improvement with physical therapy. Elbow xray was unremarkable. Pain improved but never fully resolved. Over the last 2 weeks pain is more severe and constant. Tylenol is not helping. Denies any falls or injuries. Pain is worsened by using her right arm even holding her phone. Patient is right hand dominant. Pain is a constant deep ache to her right shoulder and will radiate down to right elbow which is a more severe pain. Nothing resolves pain in shoulder but letting her arm rest decreases severity of shoulder pain and resolves elbow pain. Prior to pain intensifying did notice her shoulder was stiff and making a popping noise. Denies redness, weakness, fever, chills, abnormal change in weight, numbness, or tingling. REVIEW OF SYSTEMS See HPI PAST MEDICAL HISTORY Diagnosis Date Abnormal Pap smear of cervix 2010 DR DORANTES, REPEAT PAP NL Acquired hypothyroidism 06/08/2019 Acute kidney failure (HCC) 10/2020 Chlamydia 1995 Diabetes mellitus (HCC) Diabetes mellitus complicating , antepartum Essential hypertension 10/29/2021 Fibromyalgia Hyperlipidemia Mental disorder DEPRESSION/ANXIETY Neuropathy Non-healing open wound of toe 04/30/2021 RUBIA (obstructive sleep apnea) DME [facility] for PAP machine Osteomyelitis (HCC) 06/15/2019 right toe depression Sleep apnea PAST SURGICAL HISTORY Procedure Laterality Date AMPUTATION FOOT,TRANSMETATARSAL Right 06/15/2019 2nd toe APPENDECTOMY 2014 [facility] (MISSED AB 1ST TRIMESTER) EXCISION TONSIL LESIONS BILATERAL I AND D ABSCESS 04/16/2023 middle abdomen INSJ TUNNELED CVC W/O SUBQ PORT/FRANCHISE CONSULTANT AGE 6 YR/> 11/15/2020 LAPAROSCOPIC TUBAL LIGATION/RING/CLIP 12/2013 PAST SURGICAL HISTORY OF Right 04/02/2019 right great toe amputation ALLERGIES Azithromycin, Clindamycin, Emycin [Erythromycin], and Vancomycin MEDICATIONS gabapentin (NEURONTIN) 600 mg tablet Take 1 tablet by mouth two times a day for 360 days. albuterol HFA (PROAIR HFA) 90 mcg/actuation inhaler Inhale 2 Puffs as instructed every 4 hours as needed. fluticasone (FLONASE) 50 mcg/actuation nasal spray Use 2 Sprays in each nostril once daily. Rinse mouth after use. montelukast (SINGULAIR) 10 mg tablet Take 1 tablet by mouth daily at bedtime. naproxen (NAPROSYN) 500 mg tablet take 1 tablet by mouth twice a day NEEDED FOR PAIN or inflammation with food hydroCHLOROthiazide 12.5 mg capsule Take 1 capsule by mouth once daily. levothyroxine (LEVOXYL) 75 mcg tablet TAKE 1 TABLET ON AN EMPTY STOMACH DAILY BUT TAKE 2 TABLETS ON FRIDAY FOR THYROID traZODone (DESYREL) 100 mg tablet Gauze Bandage 1 X 5 -yard bndg Apply 1 application to affected area once daily. Non-Adherent Bandage (CURITY ABDOMINAL PAD) 5 X 9 bndg Apply 1 application to affected area once daily. Swab (Q-TIPS/SINGLE-TIP APPLICATOR) swab 1 Each once daily. losartan (COZAAR) 100 mg tablet take 1 tablet by mouth once daily ergocalciferol 50,000 unit capsule (VITAMIN D2, DRISDOL) Take 1 capsule by mouth two times a week. TO BE TAKEN ORALLY DIRECTED. Take 1 tablet by mouth twice weekly g6uexal, then decrease to 1 tablet weekly. DEXCOM G6 TRANSMITTER ana use as directed AND CHANGE EVERY 90 DAYS DEXCOM G6 SENSOR ana APPLY 1 SENSOR AND CHANGE EVERY 10 DAYS OMNIPOD 5 G6 PODS, GEN 5, crtg USE 1 POD EVERY 48 HOURS meclizine (ANTIVERT) 25 mg tab TAKE 1 TABLET TWICE A DAY pantoprazole DR (PROTONIX) 20 mg tablet TAKE 1 TABLET TWICE A DAY atorvastatin (LIPITOR) 80 mg tablet take 1 tablet by mouth once daily diclofenac (VOLTAREN) 1 % topical gel apply 2 grams topically to affected area twice a day insulin needles, DISPOSABLE, (PEN NEEDLE) 31 gauge x 5/16 1 Each three times daily. ondansetron orally disintegrating (ZOFRAN ODT) 4 mg disintegrating tablet Take 1 tablet by mouth every 6 hours as needed for Nausea/Vomiting. Outcome Referrals glucose scanning reader ([employer]FI 14 DAY READER) [facility] [place] check blood sugars 4 times daily. alcohol swabs padm Apply 1 application to affected area four times daily. acetaminophen (TYLENOL) 500 mg tablet Take 1,000 mg by mouth every 4 hours as needed. DULoxetine (CYMBALTA) 60 mg capsule Take 60 mg by mouth once daily. Take 60 mg in the evening, along with 30 mg dose in the morning. FAMILY HISTORY Problem Relation Age of Onset Thyroid Mother COPD Mother Asthma Father No Known Problems Sister No Known Problems Sister No Known Problems Sister No Known Problems Brother Heart Maternal Grandmother Ca (more content not included)... [facility] 09-01-2023 Miscellaneous Notes Patient has been identified by name and date of : No Patient phones for refill(s): Requested Prescriptions Pending Prescriptions Disp Refills gabapentin (NEURONTIN) 600 mg tablet [Pharmacy Med Name: GABAPENTIN 600 MG TABLET] 180 tablet 1 Sig: Take 1 tablet by mouth two times a day. Date of last office visit in primary care: 07/11/2023 Date of next office visit in primary care: Visit date not found Last 2 Encounter Wt Readings: Date: Wt: 07/23/2023 116.1 kg (256 lb) 07/11/2023 120.2 kg (265 lb) Previous labs/tests for medication: Not applicable Please advise. Thank you. Tala Aleman. documented in this encounter [facility] 08-25-2023 Miscellaneous Notes Patient notified. Please let the patient know the mammogram showed a small nodule that is probably benign however the radiologist is recommending recheck in 6 months to make sure it remains stable. Nimo Sandoval APRN.CNP documented in this encounter [facility] 08-20-2023 Note HNO ID: [id number] Author: Melvina Jules RDMS Service: ? Author Type: Physician Internist Type: Progress Notes Filed: 08/20/2023 11:11 AM Note Text: Radiology Service Progress Note PATIENT NAME: Maryanne Minaya DATE OF SERVICE: August 20, 2023 TIME: 11:11 AM PATIENT IDENTITY VERIFICATION COMPLETED USING TWO (2) IDENTIFIERS: Name and Date of confirmed by patient verbally. FALL SCREENING: Has the patient had 2 falls in the last year or 1 fall with injury or currently using an Ambulatory Assistive Device (Walker, Cane, Wheelchair, Crutches, etc.)? No PATIENT GENDER DATA: Female. status: : No status: NO. PATIENT RELEVANT IMPLANT DATA REVIEWED: Not Applicable RADIOLOGY DEPARTMENT: Ultrasound PERIPHERAL IV DATA: Not applicable SIGNED BY: Melvina Jules RDMS August 20, 2023 11:11 AM [facility] 08-20-2023 Note HNO ID: [id number] Author: Artem Moreno Mammo Tech Service: ? Author Type: Technologist Type: Progress Notes Filed: 08/20/2023 10:23 AM Note Text: Radiology Service Progress Note PATIENT NAME: Maryanne Minaya DATE OF SERVICE: August 20, 2023 TIME: 10:23 AM PATIENT IDENTITY VERIFICATION COMPLETED USING TWO (2) IDENTIFIERS: Name and Date of confirmed by patient verbally. FALL SCREENING: Has the patient had 2 falls in the last year or 1 fall with injury or currently using an Ambulatory Assistive Device (Walker, Cane, Wheelchair, Crutches, etc.)? No PATIENT GENDER DATA: Female. status: : No status: NO. PATIENT RELEVANT IMPLANT DATA REVIEWED: Not Applicable RADIOLOGY DEPARTMENT: Mammography PERIPHERAL IV DATA: Not applicable SIGNED BY: Michelle Palacio August 20, 2023 10:23 AM [facility] 08-20-2023 History of Present illness Narrative Radiology Service Progress Note PATIENT NAME: Maryanne Minaya DATE OF SERVICE: August 20, 2023 TIME: 11:11 AM PATIENT IDENTITY VERIFICATION COMPLETED USING TWO (2) IDENTIFIERS: Name and Date of confirmed by patient verbally. FALL SCREENING: Has the patient had 2 falls in the last year or 1 fall with injury or currently using an Ambulatory Assistive Device (Walker, Cane, Wheelchair, Crutches, etc.)? No PATIENT GENDER DATA: Female. status: : No status: NO. PATIENT RELEVANT IMPLANT DATA REVIEWED: Not Applicable RADIOLOGY DEPARTMENT: Ultrasound PERIPHERAL IV DATA: Not applicable SIGNED BY: Melvina Jules RDMS August 20, 2023 11:11 AM documented in this encounter [facility] 08-20-2023 History of Present illness Narrative Radiology Service Progress Note PATIENT NAME: Maryanne Minaya DATE OF SERVICE: August 20, 2023 TIME: 10:23 AM PATIENT IDENTITY VERIFICATION COMPLETED USING TWO (2) IDENTIFIERS: Name and Date of confirmed by patient verbally. FALL SCREENING: Has the patient had 2 falls in the last year or 1 fall with injury or currently using an Ambulatory Assistive Device (Walker, Cane, Wheelchair, Crutches, etc.)? No PATIENT GENDER DATA: Female. status: : No status: NO. PATIENT RELEVANT IMPLANT DATA REVIEWED: Not Applicable RADIOLOGY DEPARTMENT: Mammography PERIPHERAL IV DATA: Not applicable SIGNED BY: Michelle Palacio August 20, 2023 10:23 AM documented in this encounter [facility] 07-23-2023 Miscellaneous Notes July 24, 2023 PID: [id number] Maryanne Minaya [address] [place] [address] Dear Ms. Minaya, Your recent breast imaging exam on 07/23/2023 showed a possible finding that requires additional imaging studies for a complete evaluation. Most such findings are probably benign (not cancer). If you have a healthcare provider who ordered/prescribed your screening mammogram: Please call [phone] or [phone]: [phone] to schedule an appointment for your additional imaging (if you have not already done so). If you DO NOT have a healthcare provider (ie you did not have an order/prescription for your screening mammogram): Please call to schedule an appointment for your additional imaging (if you have not already done so). You must have an order/prescription from your physician when calling to schedule your appointment. If your order/prescription is not electronic, you must bring the hard copy with you on the day of your exam to avoid delays. Your imaging studies and reports are kept on file at [facility] as part of your permanent medical record, and are available for your continuing care. Thank you for allowing us to help in meeting your health care needs. Sincerely, Dr. Patten Interpreting Radiologist [facility] (Additional imaging) documented in this encounter [facility] 07-23-2023 Note HNO ID: [id number] Author: Lidia Mcguire APRN.SWISS MACHINIST Service: ? Author Type: Nurse Practitioner Type: Progress Notes Filed: 07/23/2023 4:25 PM Note Text: Broach Operator offered: Patient declines. Madden is a 52 year old who presents for an annual gynecologic exam with complaints, menopausal symptoms. Postmenopausal: No. Becoming irregular. Menstrual cycle every 1-2 months Flow 7 days heavy 3-4 days then tapers for 4 days. Current menses is on day 13 - heavy for 3 days, no bleeding x 1 day and now spotting. Will wipe and not have spotting but then has a little a few hours later. HRT use: tubal sterilization Last Pap: 06/03/2019 normal HPV: 06/03/2019 negative History of abnormal pap: No Last mammogram: today, pending History of abnormal mammogram: Yes 2021 abnormal, needed additional imaging left breast but did not complete Sexually active: Yes History of STDS: chlamydia Patient concerns for STD exposure: No. Time with current partner: 8 months Pain with intercourse: No Postcoital bleeding: No Hot flashes: No but feels generally feels much hotter most of day burning from the inside out Night sweats: Yes, twice in past 6 months OB History T1 L1 SAB0 IAB0 Ectopic0 Multiple0 Live Births1 Digital Media Representative History LMP: 09/17/2019, Having periods Age at Menarche: Age at First : Age at Menopause: Digital [employer] Representative History Comments: Sexual Activity: Yes; Male Contraception: Tubal Ligation PAST MEDICAL HISTORY Diagnosis Date Abnormal Pap smear of cervix 2010 DR DORANTES, REPEAT PAP NL Acquired hypothyroidism 06/08/2019 Acute kidney failure (HCC) 10/2020 Chlamydia 1995 Diabetes mellitus (HCC) Diabetes mellitus complicating , antepartum Essential hypertension 10/29/2021 Fibromyalgia Hyperlipidemia Mental disorder DEPRESSION/ANXIETY Neuropathy Non-healing open wound of toe 04/30/2021 RUBIA (obstructive sleep apnea) DME DASCO for PAP machine Osteomyelitis (HCC) 06/15/2019 right toe depression Sleep apnea PAST SURGICAL HISTORY Procedure Laterality Date AMPUTATION FOOT,TRANSMETATARSAL Right 06/15/2019 2nd toe APPENDECTOMY 2014 [facility] (MISSED AB 1ST TRIMESTER) EXCISION TONSIL LESIONS BILATERAL I AND D ABSCESS 04/16/2023 middle abdomen INSJ TUNNELED CVC W/O SUBQ PORT/FRANCHISE CONSULTANT AGE 6 YR/> 11/15/2020 LAPAROSCOPIC TUBAL LIGATION/RING/CLIP 12/2013 PAST SURGICAL HISTORY OF Right 04/02/2019 right great toe amputation FAMILY HISTORY Problem Relation Age of Onset Thyroid Mother Asthma Father Heart Maternal Grandmother Cancer Maternal Grandfather prostate Diabetes Maternal Aunt Diabetes Maternal Uncle Diabetes Other SOCIAL HISTORY Social History Tobacco Use Smoking status: Every Day Packs/day: 0.50 Years: 25.00 Additional pack years: 0.00 Total pack years: 12.50 Types: Cigarettes Smokeless tobacco: Never Vaping Use Vaping Use: Never used Substance Use Topics Alcohol use: No Drug use: No REVIEW OF SYSTEMS Abdomen: No abdominal pain, nausea, vomiting, diarrhea, or constipation. No bloating, early satiety, indigestion, or increased flatulence. Bladder: No dysuria, gross hematuria, urinary frequency, urinary urgency. Stress incontinence over past 8 months. Breast: No breast lumps, nipple d/c, overlying skin changes, redness or skin retraction Allergies and current medication updated:Yes EXAM: BP 130/78 Ht 5' 4 (1.63m) Wt 256 lb (116.1kg) LMP 07/10/2023 BMI 43.92 kg/(m2). GENERAL: pleasant, female in no apparent distress HEENT: Normocephalic, atraumatic, mucus membranes moist, and no lesions NECK: Supple, full range of motion, no adenopathy, and thyroid normal DERMATOLOGY: Normal, without lesions, non-icteric, and non-hirsute BREAST: soft, non-tender, symmetric, no dominant mass, normal nipple-areolar complex, no lymphadenopathy, and no nipple discharge CHEST: Normal inspiratory effort ABDOMEN: soft, non-tender, and no masses PELVIC: external genitalia normal, normal Bartholin's glands, urethra, Perry's glands, no vulvar lesions, no cervical lesions, physiologic discharge present, normal appearing perineal body and perianal region. Scant amount dark red blood in vaginal vault. BIMANUAL: uterus normal size, shape and consistency, no adnexal masses, and non-tender RECTOVAGINAL: patient declined. NEURO: alert and oriented x3,exam grossly non-focal EXTREMITIES: normal ASSESSMENT/PLAN: 1) Health maintenance: Pap/HPV up to date. Mammogram ordered Nutrition, exercise and routine health maintenance exams reviewed. Calcium/Vitamin D supplementation information provided. Smoking cessation: Benefits of smoking cessation reviewed. Patient encouraged to avoid smoking. Colon cancer screening: patient to discuss with PCP Stress incontinence - - Discussed Kegel exercises and given written instruction. Discussed PFT and will consider. 2) Follow up one year or soone (more content not included)... [facility] 07-23-2023 Note HNO ID: [id number] Author: Laura Beltrán Mammo Tech Service: ? Author Type: Physician Internist Type: Progress Notes Filed: 07/23/2023 1:39 PM Note Text: Radiology Service Progress Note PATIENT NAME: Maryanne Minaya DATE OF SERVICE: July 23, 2023 TIME: 1:15 PM PATIENT IDENTITY VERIFICATION COMPLETED USING TWO (2) IDENTIFIERS: Name and Date of confirmed by patient verbally. FALL SCREENING: Has the patient had 2 falls in the last year or 1 fall with injury or currently using an Ambulatory Assistive Device (Walker, Cane, Wheelchair, Crutches, etc.)? No PATIENT GENDER DATA: Female. status: : No status: NO. PATIENT RELEVANT IMPLANT DATA REVIEWED: Not Applicable RADIOLOGY DEPARTMENT: Mammography PERIPHERAL IV DATA: Not applicable SIGNED BY: Michelle Segura July 23, 2023 1:15 PM [facility] 07-23-2023 Instructions Lidia Mcguire, ZHANNA.ESCOBAR - 07/23/2023 2:16 PM EDT Menopause Symptoms Not all women experiences menopause in the same way. For some, menopause can bring on an array of uncomfortable symptoms. Others may experience few if any discomforts. This information has been prepared to help you manage the most common changes associated with the midlife transition. RELIEVING HOT FLASHES * Identify and avoid your hot flash triggers. Common triggers may include stress, caffeine, alcohol, spicy foods, tight clothing, heat and cigarette smoke. * Keep the bedroom cool. Use fans during the day. Wear light layers of clothes with natural fibers. * Try deep, slow abdominal paced breathing (6 to 8 breaths per minute). Practice deep breathing for 15 minutes in the morning, 15 minutes in the evening and at the onset of hot flashes. * Exercise daily. Walking, swimming, dancing and bicycling with helmet are good choices along with yoga. * Add soy protein in the form of food (40-60 mg) to your diet daily in place of animal protein. Promensil and isoflavone tablets have NOT been shown to significantly help menopausal symptoms * Black cohosh (in the form of Remifemin) can be used for hot flashes and has been approved by [place] [employer] for only 6 months of use, however has NOT been well studied in the [place] for joint terminal attack controller effects and THERE HAVE BEEN REPORTS OF LIVER TOXICITY WITH BLACK COHOSH USE. (Avoid kava kava, valerian root and beware that most herbal products are NOT regulated in the [place] and some have been associated with liver toxicity) NOTE: HORMONE THERAPY (HT) is the MOST EFFECTIVE treatment and the only FDA approved treatment for menopausal symptoms. Any form of hormones, including 'bioidentical' hormones have risks as well as benefits. * Antidepressants like Effexor (venlaflaxine) a NSRI or Pristiq (desvenlafaxine) another agent, Neurontin (gabapentin) may help block hot flashes and all have risks and benefits like any prescription or off the shelf medicine. * Use of Bellergal is discouraged as it contains an addictive barbiturate. RELIEVING INSOMNIA * Keep the bedroom cool to prevent night sweats. Special chill pillows that are cool are available. * Avoid using sleeping pills. * Exercise daily but not right before bedtime. * Avoid caffeine and alcohol at night. * Take a warm shower at bedtime. COPING WITH MOOD SWINGS, FEARS AND DEPRESSION * Find a self-calming skill to practice, such as yoga, meditation or slow deep breathing. * Avoid tranquilizers, if possible, however prescription anti-depressants can be very effective. * Engage in a creative outlet that fosters a sense of achievement. * Stay connected with your family and community; nurture your friendships. RELIEVING PAINFUL INTERCOURSE * Try using a vaginal water-based moisturizing lotion 3 times a week (like Replens or SILK-E) or lubricant during intercourse like KY jelly or Astroglide. *Local estrogen treatments for the vagina/bladder are available as a cream, tablet or vaginal ring. HELPFUL WEB SITES www.menopause.org www.[facility].org/womensheal th How To Perform Pelvic Floor (Kegel) Exercises These exercises help to strengthen the pelvic floor muscles and can help improve bladder control for women. 1. You should have been instructed in the office how to contract these muscles. At home, you can insert two fingers in the vagina and feel the contraction of these muscles as you squeeze. We call these muscles the pelvic floor because they help support the pelvic organs, especially during coughing and sneezing. Squeezing the pelvic floor while standing feels like you are lifting the area around the vagina, and will interrupt the stream of urine while voiding. Once you are certain which muscles to use, do not exercise while urinating. Make sure you are not bearing down, squeezing your buttocks, or straining abdominally: these are not the muscles to be exercised. You may wish to place hands on your buttock muscles to keep these muscles relaxed while performing the exercises. 2. Squeeze these muscles as hard as you can for a slow count of five, eventually working up to a slow count of ten. Rest for 15 seconds, and then start another contraction. At first. these muscles may feel sore, just as other muscles may feel sore after exercise. 3. You should perform 50 squeezes every day: make sure every squeeze count by sabrina as hard as you can! Many women try to do these exercises in sets of five or ten at a time. Remind yourself to do these exercises by starting them every time you are waiting at a red light, watching a television commercial, or on hold on the telephone. If you are having trouble concentrating, you may want to set aside a special time to perform sets of pelvic floor exercises. 4. In addition to the long, hard contractions you are doing try doing some quick flicks of these muscles throughout the day. 5. You should be seen in the office after starting these exercises to make sure you are performing the contraction correctly: you may have never known how to contract these muscles before starting pelvic floor exercises, and many patients mistakenly exercise the wrong muscles. If you still feel frustrated about which muscles to use ask us for help. There are physical therapy specialists who work with pelvic floor muscles. 6. Work hard! As with any exercise program, improvement often is related to how faithfully you adhere to your exercise program. Pelvic floor exercises do not have the side effects and expense associated with other treatments for urinary incontinence, and have been known to help with severe stress incontinence. It may take several months to see the full effect of your exercise program: if you are easily discouraged, see your doctor or doctor at regular visits to assess what progress you are making. Techniques to avoid urinary accidents: Empty your bladder regularly and prior to physical activity. Avoid activity that causes leakage, if possible. Avoid or moderate the intake of alcohol and caffeine products. Try to restrict fluids prior to planned activities. Wear appropriate protection. Prevent chronic coughing which can cause a loss of urinary control. Ways to prevent chronic coughing include treating asthma, restricting smoking, and removing allergy-causing agents from your environment. documented in this encounter [facility] 07-23-2023 History of Present illness Narrative Broach Operator offered: Patient declines. Maryanne is a 52 year old who presents for an annual gynecologic exam with complaints, menopausal symptoms. Postmenopausal: No. Becoming irregular. Menstrual cycle every 1-2 months Flow 7 days heavy 3-4 days then tapers for 4 days. Current menses is on day 13 - heavy for 3 days, no bleeding x 1 day and now spotting. Will wipe and not have spotting but then has a little a few hours later. HRT use: tubal sterilization Last Pap: 06/03/2019 normal HPV: 06/03/2019 negative History of abnormal pap: No Last mammogram: today, pending History of abnormal mammogram: Yes 2021 abnormal, needed additional imaging left breast but did not complete Sexually active: Yes History of STDS: chlamydia Patient concerns for STD exposure: No. Time with current partner: 8 months Pain with intercourse: No Postcoital bleeding: No Hot flashes: No but feels generally feels much hotter most of day burning from the inside out Night sweats: Yes, twice in past 6 months OB History T1 L1 SAB0 IAB0 Ectopic0 Multiple0 Live Births1 Digital Media Representative History LMP: 09/17/2019, Having periods Age at Menarche: Age at First : Age at Menopause: Digital Media Representative History Comments: Sexual Activity: Yes; Male Contraception: Tubal Ligation PAST MEDICAL HISTORY Diagnosis Date Abnormal Pap smear of cervix 2010 DR DORANTES, REPEAT PAP NL Acquired hypothyroidism 06/08/2019 Acute kidney failure (HCC) 10/2020 Chlamydia 1995 Diabetes mellitus ([facility]) Diabetes mellitus complicating , antepartum Essential hypertension 10/29/2021 Fibromyalgia Hyperlipidemia Mental disorder DEPRESSION/ANXIETY Neuropathy Non-healing open wound of toe 04/30/2021 RUBIA (obstructive sleep apnea) DME DASCO for PAP machine Osteomyelitis (HCC) 06/15/2019 right toe depression Sleep apnea PAST SURGICAL HISTORY Procedure Laterality Date AMPUTATION FOOT,TRANSMETATARSAL Right 06/15/2019 2nd toe APPENDECTOMY 2015 D&C (MISSED AB 1ST TRIMESTER) EXCISION TONSIL LESIONS BILATERAL I & D ABSCESS 04/16/2023 middle abdomen INSJ TUNNELED CVC W/O SUBQ PORT/FRANCHISE CONSULTANT AGE 6 YR/> 11/15/2020 LAPAROSCOPIC TUBAL LIGATION/RING/CLIP 12/2013 PAST SURGICAL HISTORY OF Right 04/02/2019 right great toe amputation FAMILY HISTORY Problem Relation Age of Onset Thyroid Mother Asthma Father Heart Maternal Grandmother Cancer Maternal Grandfather prostate Diabetes Maternal Aunt Diabetes Maternal Uncle Diabetes Other SOCIAL HISTORY Social History Tobacco Use Smoking status: Every Day Packs/day: 0.50 Years: 25.00 Additional pack years: 0.00 Total pack years: 12.50 Types: Cigarettes Smokeless tobacco: Never Vaping Use Vaping Use: Never used Substance Use Topics Alcohol use: No Drug use: No REVIEW OF SYSTEMS Abdomen: No abdominal pain, nausea, vomiting, diarrhea, or constipation. No bloating, early satiety, indigestion, or increased flatulence. Bladder: No dysuria, gross hematuria, urinary frequency, urinary urgency. Stress incontinence over past 8 months. Breast: No breast lumps, nipple d/c, overlying skin changes, redness or skin retraction Allergies and current medication updated:Yes EXAM: BP 130/78 Ht 5' 4 (1.63m) Wt 256 lb (116.1kg) LMP 07/10/2023 BMI 43.92 kg/(m^2). GENERAL: pleasant, female in no apparent distress HEENT: Normocephalic, atraumatic, mucus membranes moist, and no lesions NECK: Supple, full range of motion, no adenopathy, and thyroid normal DERMATOLOGY: Normal, without lesions, non-icteric, and non-hirsute BREAST: soft, non-tender, symmetric, no dominant mass, normal nipple-areolar complex, no lymphadenopathy, and no nipple discharge CHEST: Normal inspiratory effort ABDOMEN: soft, non-tender, and no masses PELVIC: external genitalia normal, normal Bartholin's glands, urethra, Perry's glands, no vulvar lesions, no cervical lesions, physiologic discharge present, normal appearing perineal body and perianal region. Scant amount dark red blood in vaginal vault. BIMANUAL: uterus normal size, shape and consistency, no adnexal masses, and non-tender RECTOVAGINAL: patient declined. NEURO: alert and oriented x3,exam grossly non-focal EXTREMITIES: normal ASSESSMENT/PLAN: 1) Health maintenance: Pap/HPV up to date. Mammogram ordered Nutrition, exercise and routine health maintenance exams reviewed. Calcium/Vitamin D supplementation information provided. Smoking cessation: Benefits of smoking cessation reviewed. Patient encouraged to avoid smoking. Colon cancer screening: patient to discuss with PCP Stress incontinence - - Discussed Kegel exercises and given written instruction. Discussed PFT and will consider. 2) Follow up one year or sooner as needed Lidia Mcguire APRN.SWISS MACHINIST documented in this encounter [facility] 07-15-2023 Miscellaneous Notes Patient call in for shortness of breath, diarrhea, vomiting. Nurse Triage assessment completed with protocol recommending for disposition of Go to ED now. Care advice reviewed with patient, patient stated understanding. Reason for Disposition [1] MODERATE difficulty breathing (e.g., speaks in phrases, SOB even at rest, pulse 100-120) AND [2] NEW-onset or WORSE than normal Answer Assessment - Initial Assessment Questions 1. RESPIRATORY STATUS: Wheezing, short of breath 2. ONSET: Friday07/13/2023 3. PATTERN Constant 4. SEVERITY: Moderate to Severe shortness of breath; Patient states that she is sometimes short of breath. 5. RECURRENT SYMPTOM: Yes, patient was diagnosed with pneumonia; bed rest x 3 weeks 6. CARDIAC HISTORY: Denies 7. LUNG HISTORY: Denies lung history 8. CAUSE: Pneumonia 9. OTHER SYMPTOMS: Cough, dizziness, cough (moist cough) fever; diarrhea; vomitting 10. O2 SATURATION MONITOR: Denies, does not have pulsox Protocols used: Breathing [id number] documented in this encounter [facility] 07-11-2023 Note HNO ID: [id number] Author: Alphonso Marks PA-C Service: ? Author Type: Physician Organ Grinder Type: Progress Notes Filed: 07/11/2023 11:00 AM Note Text: CC: Patient presents with: Follow Up: blood pressure, left hip pain and med refills, chest flutter x 2 years comes and goes, HPI Maryanne Minaya is a 52 year old female who presents today for follow-up left hip pain and reassess blood pressure, as it was elevated at previous visit. Last visit was on 06/27/2023, and at that time was complaining of 10 out of 10 left hip pain. X-ray of LS-spine was ordered, and patient was prescribed short course of tramadol for pain relief. XR of left hip had been done in 03/20, which was negative. Symptoms significantly improved from prior visit, although reports she didn't picking tech her tramadol until a couple days ago. She thinks resting and taking the medication both helped her issue. Impression IMPRESSION: Lumbar spine mild degenerative changes. Tobacco Use: State she really wants to quit smoking. Currently smokes 1/2 PPD (which is a lot compared to previous, as she was up to a 1.5 PPD). Has been smoking 20-30 years. C/o heart palpitations chest fluttering that occurs randomly- very sporadic, and hard to pinpoint precipitating factors. Sometimes it feels like it can take her breath away. Could be related to caffeine intake, as she states she drinks a lot between coffee and soda - usually has one soda/day, usually upwards of 2 cups of coffee/day. Also notes dysuria has been excruciating lately x 1 week and she's pretty sure she has a UTI. +Urinary frequency, some stress incontinence with coughing. No hematuria, N/V, flank pain, fevers/chills. REVIEW OF SYSTEMS See HPI All other systems negative. PAST MEDICAL HISTORY Diagnosis Date Abnormal Pap smear of cervix 2010 DR DORANTES, REPEAT PAP NL Acquired hypothyroidism 06/08/2019 Acute kidney failure (HCC) 10/2020 Chlamydia 1994 Diabetes mellitus (HCC) Diabetes mellitus complicating , antepartum Essential hypertension 10/29/2021 Fibromyalgia Hyperlipidemia Mental disorder DEPRESSION/ANXIETY Neuropathy Non-healing open wound of toe 04/30/2021 RUBIA (obstructive sleep apnea) DME DASCO for PAP machine Osteomyelitis (HCC) 06/15/2019 right toe depression Sleep apnea PAST SURGICAL HISTORY Procedure Laterality Date AMPUTATION FOOT,TRANSMETATARSAL Right 06/15/2019 2nd toe APPENDECTOMY 2015 DANDC (MISSED AB 1ST TRIMESTER) EXCISION TONSIL LESIONS BILATERAL I AND D ABSCESS 04/16/2023 middle abdomen INSJ TUNNELED CVC W/O SUBQ PORT/FRANCHISE CONSULTANT AGE 6 YR/> 11/15/2020 LAPAROSCOPIC TUBAL LIGATION/RING/CLIP 12/2013 PAST SURGICAL HISTORY OF Right 04/02/2019 right great toe amputation ALLERGIES Azithromycin, Clindamycin, Emycin [Erythromycin], and Vancomycin MEDICATIONS acetaminophen (TYLENOL) 500 mg tablet Take 1,000 mg by mouth every 4 hours as needed. albuterol HFA (PROAIR HFA) 90 mcg/actuation inhaler Inhale 2 Puffs as instructed every 4 hours as needed. alcohol swabs padm Apply 1 application to affected area four times daily. atorvastatin (LIPITOR) 80 mg tablet take 1 tablet by mouth once daily DEXCOM G6 SENSOR ana APPLY 1 SENSOR AND CHANGE EVERY 10 DAYS DEXCOM G6 TRANSMITTER ana use as directed AND CHANGE EVERY 90 DAYS diclofenac (VOLTAREN) 1 % topical gel apply 2 grams topically to affected area twice a day DULoxetine (CYMBALTA) 60 mg capsule Take 60 mg by mouth once daily. Take 60 mg in the evening, along with 30 mg dose in the morning. ergocalciferol 50,000 unit capsule (VITAMIN D2, DRISDOL) Take 1 capsule by mouth two times a week. TO BE TAKEN ORALLY DIRECTED. Take 1 tablet by mouth twice weekly [id number], then decrease to 1 tablet weekly. flash glucose scanning reader (FREESTYLE SOFI 14 DAY READER) [facility] [place] to check blood sugars 4 times daily. fluticasone (FLONASE) 50 mcg/actuation nasal spray Use 2 Sprays in each nostril once daily. Rinse mouth after use. gabapentin (NEURONTIN) 600 mg tablet Take 1 tablet by mouth twice daily for 180 days. Gauze Bandage 1 X 5 -yard bndg Apply 1 application to affected area once daily. hydroCHLOROthiazide 12.5 mg capsule Take 1 capsule by mouth once daily. insulin needles, DISPOSABLE, (PEN NEEDLE) 31 gauge x 5/16 1 Each three times daily. levothyroxine (LEVOXYL) 75 mcg tablet TAKE 1 TABLET ON AN EMPTY STOMACH DAILY BUT TAKE 2 TABLETS ON FRIDAY FOR THYROID losartan (COZAAR) 100 mg tablet take 1 tablet by mouth once daily meclizine (ANTIVERT) 25 mg tab TAKE 1 TABLET TWICE A DAY montelukast (SINGULAIR) 10 mg tablet take 1 tablet by mouth at bedtime naproxen (NAPROSYN) 500 mg tablet take 1 tablet by mouth twice a day NEEDED FOR PAIN or inflammation with food Non-Adherent Bandage (CURITY ABDOMINAL PAD) 5 X 9 bndg Apply 1 application to affected area once daily. OMNIPOD 5 G6 PODS, GEN 5, crtg USE 1 POD EVERY 48 HOURS ondansetr (more content not included)... [facility] 07-11-2023 History of Present illness Narrative CC: Patient presents with: Follow Up: blood pressure, left hip pain and med refills, chest flutter x 2 years comes and goes, HPI Maryanne Minaya is a 52 year old female who presents today for follow-up left hip pain and reassess blood pressure, as it was elevated at previous visit. Last visit was on 06/27/2023, and at that time was complaining of 10 out of 10 left hip pain. X-ray of LS-spine was ordered, and patient was prescribed short course of tramadol for pain relief. XR of left hip had been done in 03/20, which was negative. Symptoms significantly improved from prior visit, although reports she didn't picking tech her tramadol until a couple days ago. She thinks resting and taking the medication both helped her issue. Impression IMPRESSION: Lumbar spine mild degenerative changes. Tobacco Use: State she really wants to quit smoking. Currently smokes 1/2 PPD (which is a lot compared to previous, as she was up to a 1.5 PPD). Has been smoking 20-30 years. C/o heart palpitations chest fluttering that occurs randomly- very sporadic, and hard to pinpoint precipitating factors. Sometimes it feels like it can take her breath away. Could be related to caffeine intake, as she states she drinks a lot between coffee and soda - usually has one soda/day, usually upwards of 2 cups of coffee/day. Also notes dysuria has been excruciating lately x 1 week and she's pretty sure she has a UTI. +Urinary frequency, some stress incontinence with coughing. No hematuria, N/V, flank pain, fevers/chills. REVIEW OF SYSTEMS See HPI All other systems negative. PAST MEDICAL HISTORY Diagnosis Date Abnormal Pap smear of cervix 2010 DR DORANTES, REPEAT PAP NL Acquired hypothyroidism 06/08/2019 Acute kidney failure (HCC) 10/2020 Chlamydia 1995 Diabetes mellitus (HCC) Diabetes mellitus complicating , antepartum Essential hypertension 10/29/2021 Fibromyalgia Hyperlipidemia Mental disorder DEPRESSION/ANXIETY Neuropathy Non-healing open wound of toe 04/30/2021 RUBIA (obstructive sleep apnea) DME DASCO for PAP machine Osteomyelitis (HCC) 06/15/2019 right toe depression Sleep apnea PAST SURGICAL HISTORY Procedure Laterality Date AMPUTATION FOOT,TRANSMETATARSAL Right 06/15/2019 2nd toe APPENDECTOMY 2015 D&C (MISSED AB 1ST TRIMESTER) EXCISION TONSIL LESIONS BILATERAL I & D ABSCESS 04/16/2023 middle abdomen INSJ TUNNELED CVC W/O SUBQ PORT/FRANCHISE CONSULTANT AGE 6 YR/> 11/15/2020 LAPAROSCOPIC TUBAL LIGATION/RING/CLIP 12/2013 PAST SURGICAL HISTORY OF Right 04/02/2019 right great toe amputation ALLERGIES Azithromycin, Clindamycin, Emycin [Erythromycin], and Vancomycin MEDICATIONS acetaminophen (TYLENOL) 500 mg tablet Take 1,000 mg by mouth every 4 hours as needed. albuterol HFA (PROAIR HFA) 90 mcg/actuation inhaler Inhale 2 Puffs as instructed every 4 hours as needed. alcohol swabs padm Apply 1 application to affected area four times daily. atorvastatin (LIPITOR) 80 mg tablet take 1 tablet by mouth once daily DEXCOM G6 SENSOR ana APPLY 1 SENSOR AND CHANGE EVERY 10 DAYS DEXCOM G6 TRANSMITTER ana use as directed AND CHANGE EVERY 90 DAYS diclofenac (VOLTAREN) 1 % topical gel apply 2 grams topically to affected area twice a day DULoxetine (CYMBALTA) 60 mg capsule Take 60 mg by mouth once daily. Take 60 mg in the evening, along with 30 mg dose in the morning. ergocalciferol 50,000 unit capsule (VITAMIN D2, DRISDOL) Take 1 capsule by mouth two times a week. TO BE TAKEN ORALLY DIRECTED. Take 1 tablet by mouth twice weekly [id number], then decrease to 1 tablet weekly. flash glucose scanning reader (Pandoodle SOFI 14 DAY READER) [facility] [place] to check blood sugars 4 times daily. fluticasone (FLONASE) 50 mcg/actuation nasal spray Use 2 Sprays in each nostril once daily. Rinse mouth after use. gabapentin (NEURONTIN) 600 mg tablet Take 1 tablet by mouth twice daily for 180 days. Gauze Bandage 1 X 5 -yard bndg Apply 1 application to affected area once daily. hydroCHLOROthiazide 12.5 mg capsule Take 1 capsule by mouth once daily. insulin needles, DISPOSABLE, (PEN NEEDLE) 31 gauge x 5/16 1 Each three times daily. levothyroxine (LEVOXYL) 75 mcg tablet TAKE 1 TABLET ON AN EMPTY STOMACH DAILY BUT TAKE 2 TABLETS ON FRIDAY FOR THYROID losartan (COZAAR) 100 mg tablet take 1 tablet by mouth once daily meclizine (ANTIVERT) 25 mg tab TAKE 1 TABLET TWICE A DAY montelukast (SINGULAIR) 10 mg tablet take 1 tablet by mouth at bedtime naproxen (NAPROSYN) 500 mg tablet take 1 tablet by mouth twice a day NEEDED FOR PAIN or inflammation with food Non-Adherent Bandage (CURITY ABDOMINAL PAD) 5 X 9 bndg Apply 1 application to affected area once daily. OMNIPOD 5 G6 PODS, GEN 5, crtg USE 1 POD EVERY 48 HOURS ondansetron orally disintegrating (ZOFRAN ODT) 4 mg disintegrating tablet Take 1 tablet by mouth every 6 hours as needed for Nausea/Vomiting. pantoprazole DR (PROTONIX) 20 mg tablet TAKE 1 TABLET TWICE A DAY Swab (Q-TIPS/SINGLE-TIP APPLICATOR) swab 1 Each once daily. traZODone (DESYREL) 100 mg tablet FAMILY HISTORY Problem Relation Age of Onset Thyroid Mother Asthma Father Heart Maternal Grandmother Cancer Maternal Grandfather prostate Diabetes Maternal Aunt Diabetes Maternal Uncle Diabetes Other Social History Tobacco Use Smoking status: Every Day Packs/day: 0.50 Years: 25.00 Additional pack years: 0.00 Total pack years: 12.50 Types: Cigarettes Smokeless tobacco: Never Vaping Use Vaping Use: Never used Substance Use Topics Alcohol use: No Drug use: No PHYSICAL EXAM BP 130/62 (BP Site: Left Arm, BP Position: Sitting, BP Cuff Size: Large Adult) Pulse 91 Temp 37 C (98.6 F) Resp 14 Ht 162.6 cm (5' 4 ) Wt 120.2 kg (265 lb) LMP 09/17/2019 SpO2 94% BMI 45.49 kg/m General Appearance: well appearing, in no acute distress, alert, obese body habitus Pysch: mood and affect broad and appropriate Skin: Skin color, texture, turgor normal for age; no rashes noted Eyes: conjunctiva pink and moist, no icterus, sclera white, non-injected Oropharynx: Moist mucous membranes Lymph nodes: No cervical lymphadenopathy Lungs: Lungs clear to auscultation. No wheezing, rhonchi, rales. Heart: RRR without murmur, gallop, or rubs. Abdomen: Abdomen soft, non-tender. No masses, organomegaly. No CVA tenderness bilaterally. Extremities: No deformities, edema, skin discoloration, clubbing or cyanosis. BACK: Midline tenderness lower lumbar spine (much less compared to prior) Deep tendon patellar tendon reflexes 2+/4 diminished strength LLE secondary to pain; sensation in tact bilaterally. MSK: Mild TTP with direct pressure L lateral hip (not near what it was prior visit) Neurological: Gait normal. No focal neurological deficits. Sensation grossly intact. ASSESSMENT/PLAN: 1. Left hip pain - ICD9: 719.45, ICD10: M25.552 (primary diagnosis) Significantly improved from prior visit. Reviewed findings on recently obtained x-ray of lumbosacral spine. We will continue to monitor for complete resolution. 2. Essential hypertension - ICD9: 401.9, ICD10: I10 - Improving control after HCTZ added, and not in immense pain w/ hip - Continue current medications - Recommend home blood pressure monitoring, to bring results to next visit - Encouraged sodium restriction, DASH or Mediterranean diet - Recommend regular aerobic exercise 3. Palpitations - ICD9: 785.1, ICD10: R00.2 Patient denies need for EKG in office today. Possibly related to caffeine consumption, so she will work on monitoring this. States that she will continue to monitor over time, and will return if it continues or progresses. 4. Chronic cough - ICD9: 786.2, ICD10: R05.3 Refills provided on medications per pt request. - ALBUTEROL SULFATE HFA 90 MCG/ACTUATION AEROSOL INHALER - FLUTICASONE PROPIONATE 50 MCG/ACTUATION NASAL SPRAY,SUSPENSION - MONTELUKAST 10 MG TABLET 5. Tobacco use - ICD9: 305.1, ICD10: Z72.0 - Cessation encouraged. - Physiologic and physical aspects of tobacco addiction as well as strategies for quitting were discussed. - Counseling was given focusing on the harmful effects of this addiction especially given the patient's medical condition(s) which will be worsened because of the chemicals in tobacco. 6. Dysuria - ICD9: 788.1, ICD10: R30.0 UA findings suggestive of UTI, so will go ahead and empirically treat w/ anitibiotics. Recommend plenty of fluids and rest. Will send out for culture and adjust treatment if necessary pending results - UA DIP, URINE (POC) - URINE CULTURE - NITROFURANTOIN MONOHYDRATE & MACROCRYSTAL 100 MG ORAL CAP F/u 3 months (per pt request, does not want sooner) for HTN, f/u routine issues Prescription instructions reviewed with patient as applicable. Potential red flag symptoms discussed with the patient. Reviewed appropriate action plan to take if red flag symptoms occur. Patient agreeable to treatment plan. Alphonso Marks PA-C documented in this encounter [facility] 06-27-2023 Note HNO ID: [id number] Author: Sirisha Mandel RT(R) Service: Radiology Author Type: Technologist Type: Progress Notes Filed: 06/27/2023 2:51 PM Note Text: Radiology Service Progress Note PATIENT NAME: Maryanne Minaya DATE OF SERVICE: June 27, 2023 TIME: 2:32 PM PATIENT IDENTITY VERIFICATION COMPLETED USING TWO (2) IDENTIFIERS: Name and Date of confirmed by patient verbally. FALL SCREENING: Has the patient had 2 falls in the last year or 1 fall with injury or currently using an Ambulatory Assistive Device (Walker, Cane, Wheelchair, Crutches, etc.)? No PATIENT GENDER DATA: Female. status: : No status: NO. PATIENT RELEVANT IMPLANT DATA REVIEWED: Yes RADIOLOGY DEPARTMENT: General X-ray: Exam(s) Completed: Spine X-Ray(s): Lumbar AP / LAT / L5-S1 PERIPHERAL IV DATA: Not applicable SIGNED BY: RT Vidal(R) June 27, 2023 2:32 PM [facility] 06-27-2023 Note HNO ID: [id number] Author: Alphonso Mraks PA-C Service: ? Author Type: Physician Organ Grinder Type: Progress Notes Filed: 06/27/2023 2:58 PM Note Text: CC: Patient presents with: Follow Up: 2 week follow up-BP and labs, patient c/o left hip pain 10/10 x 3 weeks, retaining fluid drinking water HPI Maryanne Minaya is a 52 year old female who presents today for follow-up on blood pressure, as well as discuss labs. Patient is also in tears because she states she has had terrible hip pain. C/o severe L hip pain, has been 10/10 x3-4 weeks. Turned and stepped down and since then it seems really super angry. I don't know what happened but one day I woke up and it was like this. It is intermittent but once it flares up she states it's there for quite a while. Exacerbated by bending over. Feels best laying down or standing up. Naprosyn doesn't seem to be touching the pain. States this could be why her blood pressure is up. Does endorse altered sensation in her groin. States that her urinary incontinence has gotten worse REVIEW OF SYSTEMS See HPI All other systems negative. PAST MEDICAL HISTORY Diagnosis Date Abnormal Pap smear of cervix 2010 DR DORANTES, REPEAT PAP NL Acquired hypothyroidism 06/08/2019 Acute kidney failure (HCC) 10/2020 Chlamydia 1994 Diabetes mellitus (HCC) Diabetes mellitus complicating , antepartum Essential hypertension 10/29/2021 Fibromyalgia Hyperlipidemia Mental disorder DEPRESSION/ANXIETY Neuropathy Non-healing open wound of toe 04/30/2021 RUBIA (obstructive sleep apnea) DME DASCO for PAP machine Osteomyelitis (HCC) 06/15/2019 right toe depression Sleep apnea PAST SURGICAL HISTORY Procedure Laterality Date AMPUTATION FOOT,TRANSMETATARSAL Right 06/15/2019 2nd toe APPENDECTOMY 2014 DANDC (MISSED AB 1ST TRIMESTER) EXCISION TONSIL LESIONS BILATERAL I AND D ABSCESS 04/16/2023 middle abdomen INSJ TUNNELED CVC W/O SUBQ PORT/FRANCHISE CONSULTANT AGE 6 YR/> 11/15/2020 LAPAROSCOPIC TUBAL LIGATION/RING/CLIP 12/2013 PAST SURGICAL HISTORY OF Right 04/02/2019 right great toe amputation ALLERGIES Azithromycin, Clindamycin, Emycin [Erythromycin], and Vancomycin MEDICATIONS naproxen (NAPROSYN) 500 mg tablet take 1 tablet by mouth twice a day NEEDED FOR PAIN or inflammation with food hydroCHLOROthiazide 12.5 mg capsule Take 1 capsule by mouth once daily. montelukast (SINGULAIR) 10 mg tablet Take 1 tablet by mouth daily at bedtime. levothyroxine (LEVOXYL) 75 mcg tablet TAKE 1 TABLET ON AN EMPTY STOMACH DAILY BUT TAKE 2 TABLETS ON FRIDAY FOR THYROID traZODone (DESYREL) 100 mg tablet Gauze Bandage 1 X 5 -yard bndg Apply 1 application to affected area once daily. Non-Adherent Bandage (CURITY ABDOMINAL PAD) 5 X 9 bndg Apply 1 application to affected area once daily. Swab (Q-TIPS/SINGLE-TIP APPLICATOR) swab 1 Each once daily. losartan (COZAAR) 100 mg tablet take 1 tablet by mouth once daily ergocalciferol 50,000 unit capsule (VITAMIN D2, DRISDOL) Take 1 capsule by mouth two times a week. TO BE TAKEN ORALLY DIRECTED. Take 1 tablet by mouth twice weekly [id number], then decrease to 1 tablet weekly. gabapentin (NEURONTIN) 600 mg tablet Take 1 tablet by mouth twice daily for 180 days. DEXCOM G6 TRANSMITTER ana use as directed AND CHANGE EVERY 90 DAYS DEXCOM G6 SENSOR ana APPLY 1 SENSOR AND CHANGE EVERY 10 DAYS OMNIPOD 5 G6 PODS, GEN 5, crtg USE 1 POD EVERY 48 HOURS meclizine (ANTIVERT) 25 mg tab TAKE 1 TABLET TWICE A DAY pantoprazole DR (PROTONIX) 20 mg tablet TAKE 1 TABLET TWICE A DAY atorvastatin (LIPITOR) 80 mg tablet take 1 tablet by mouth once daily diclofenac (VOLTAREN) 1 % topical gel apply 2 grams topically to affected area twice a day albuterol HFA (PROAIR HFA) 90 mcg/actuation inhaler Inhale 2 Puffs as instructed every 4 hours as needed. fluticasone (FLONASE) 50 mcg/actuation nasal spray Use 2 Sprays in each nostril once daily. Rinse mouth after use. insulin needles, DISPOSABLE, (PEN NEEDLE) 31 gauge x 5/16 1 Each three times daily. ondansetron orally disintegrating (ZOFRAN ODT) 4 mg disintegrating tablet Take 1 tablet by mouth every 6 hours as needed for Nausea/Vomiting. flash glucose scanning reader (Pandoodle SOFI 14 DAY READER) [facility] [place] to check blood sugars 4 times daily. alcohol swabs padm Apply 1 application to affected area four times daily. acetaminophen (TYLENOL) 500 mg tablet Take 1,000 mg by mouth every 4 hours as needed. DULoxetine (CYMBALTA) 60 mg capsule Take 60 mg by mouth once daily. Take 60 mg in the evening, along with 30 mg dose in the morning. FAMILY HISTORY Problem Relation Age of Onset Thyroid Mother Asthma Father Heart Maternal Grandmother Cancer Maternal Grandfather prostate Diabetes Maternal Aunt Diabetes Maternal Uncle Diabetes Other Social History Tobacco Use Smoking status: Every Day Packs/day: 0.50 Years: 25.00 Additional pack years: 0. (more content not included)... [facility] 06-27-2023 History of Present illness Narrative CC: Patient presents with: Follow Up: 2 week follow up-BP and labs, patient c/o left hip pain 10/ x 3 weeks, retaining fluid drinking water HPI Maryanne Minaya is a 52 year old female who presents today for follow-up on blood pressure, as well as discuss labs. Patient is also in tears because she states she has had terrible hip pain. C/o severe L hip pain, has been 07/08 x3-4 weeks. Turned and stepped down and since then it seems really super angry. I don't know what happened but one day I woke up and it was like this. It is intermittent but once it flares up she states it's there for quite a while. Exacerbated by bending over. Feels best laying down or standing up. Naprosyn doesn't seem to be touching the pain. States this could be why her blood pressure is up. Does endorse altered sensation in her groin. States that her urinary incontinence has gotten worse REVIEW OF SYSTEMS See HPI All other systems negative. PAST MEDICAL HISTORY Diagnosis Date Abnormal Pap smear of cervix 2010 DR DORANTES, REPEAT PAP NL Acquired hypothyroidism 06/08/2019 Acute kidney failure (HCC) 10/2020 Chlamydia 1994 Diabetes mellitus (HCC) Diabetes mellitus complicating , antepartum Essential hypertension 10/29/2021 Fibromyalgia Hyperlipidemia Mental disorder DEPRESSION/ANXIETY Neuropathy Non-healing open wound of toe 04/30/2021 RUBIA (obstructive sleep apnea) DME DASCO for PAP machine Osteomyelitis (HCC) 06/15/2019 right toe depression Sleep apnea PAST SURGICAL HISTORY Procedure Laterality Date AMPUTATION FOOT,TRANSMETATARSAL Right 06/15/2019 2nd toe APPENDECTOMY 2015 [facility] (MISSED AB 1ST TRIMESTER) EXCISION TONSIL LESIONS BILATERAL I & D ABSCESS 04/16/2023 middle abdomen INSJ TUNNELED CVC W/O SUBQ PORT/FRANCHISE CONSULTANT AGE 6 YR/> 11/15/2020 LAPAROSCOPIC TUBAL LIGATION/RING/CLIP 12/2013 PAST SURGICAL HISTORY OF Right 04/02/2019 right great toe amputation ALLERGIES Azithromycin, Clindamycin, Emycin [Erythromycin], and Vancomycin MEDICATIONS naproxen (NAPROSYN) 500 mg tablet take 1 tablet by mouth twice a day NEEDED FOR PAIN or inflammation with food hydroCHLOROthiazide 12.5 mg capsule Take 1 capsule by mouth once daily. montelukast (SINGULAIR) 10 mg tablet Take 1 tablet by mouth daily at bedtime. levothyroxine (LEVOXYL) 75 mcg tablet TAKE 1 TABLET ON AN EMPTY STOMACH DAILY BUT TAKE 2 TABLETS ON FRIDAY FOR THYROID traZODone (DESYREL) 100 mg tablet Gauze Bandage 1 X 5 -yard bndg Apply 1 application to affected area once daily. Non-Adherent Bandage (CURITY ABDOMINAL PAD) 5 X 9 bndg Apply 1 application to affected area once daily. Swab (Q-TIPS/SINGLE-TIP APPLICATOR) swab 1 Each once daily. losartan (COZAAR) 100 mg tablet take 1 tablet by mouth once daily ergocalciferol 50,000 unit capsule (VITAMIN D2, DRISDOL) Take 1 capsule by mouth two times a week. TO BE TAKEN ORALLY DIRECTED. Take 1 tablet by mouth twice weekly [id number], then decrease to 1 tablet weekly. gabapentin (NEURONTIN) 600 mg tablet Take 1 tablet by mouth twice daily for 180 days. DEXCOM G6 TRANSMITTER ana use as directed AND CHANGE EVERY 90 DAYS DEXCOM G6 SENSOR ana APPLY 1 SENSOR AND CHANGE EVERY 10 DAYS OMNIPOD 5 G6 PODS, GEN 5, crtg USE 1 POD EVERY 48 HOURS meclizine (ANTIVERT) 25 mg tab TAKE 1 TABLET TWICE A DAY pantoprazole DR (PROTONIX) 20 mg tablet TAKE 1 TABLET TWICE A DAY atorvastatin (LIPITOR) 80 mg tablet take 1 tablet by mouth once daily diclofenac (VOLTAREN) 1 % topical gel apply 2 grams topically to affected area twice a day albuterol HFA (PROAIR HFA) 90 mcg/actuation inhaler Inhale 2 Puffs as instructed every 4 hours as needed. fluticasone (FLONASE) 50 mcg/actuation nasal spray Use 2 Sprays in each nostril once daily. Rinse mouth after use. insulin needles, DISPOSABLE, (PEN NEEDLE) 31 gauge x 5/16 1 Each three times daily. ondansetron orally disintegrating (ZOFRAN ODT) 4 mg disintegrating tablet Take 1 tablet by mouth every 6 hours as needed for Nausea/Vomiting. flash glucose scanning reader (FREESTYLE SOFI 14 DAY READER) [facility] [place] to check blood sugars 4 times daily. alcohol swabs padm Apply 1 application to affected area four times daily. acetaminophen (TYLENOL) 500 mg tablet Take 1,000 mg by mouth every 4 hours as needed. DULoxetine (CYMBALTA) 60 mg capsule Take 60 mg by mouth once daily. Take 60 mg in the evening, along with 30 mg dose in the morning. FAMILY HISTORY Problem Relation Age of Onset Thyroid Mother Asthma Father Heart Maternal Grandmother Cancer Maternal Grandfather prostate Diabetes Maternal Aunt Diabetes Maternal Uncle Diabetes Other Social History Tobacco Use Smoking status: Every Day Packs/day: 0.50 Years: 25.00 Additional pack years: 0.00 Total pack years: 12.50 Types: Cigarettes Smokeless tobacco: Never Vaping Use Vaping Use: Never used Substance Use Topics Alcohol use: No Drug use: No PHYSICAL EXAM BP 147/84 (BP Site: Left Arm, BP Position: Sitting, BP Cuff Size: Large Adult) Pulse 84 Temp 36.9 C (98.4 F) Resp 16 Ht 162.6 cm (5' 4 ) Wt 122.5 kg (270 lb) LMP 09/17/2019 SpO2 96% BMI 46.35 kg/m General Appearance: well appearing, in no acute distress but in obvious discomfort, being brought to tears during exam, alert, obese Pysch: mood and affect broad and appropriate Back: BACK: Normal curvature of spine. Midline tenderness lower lumbar spine. Unable to perform SLR secondary to pain. Deep tendon patellar tendon reflexes 2+/4 diminished strength LLE secondary to pain; sensation in tact bilaterally. Lungs: Lungs clear to auscultation. No wheezing, rhonchi, rales. Heart: RRR without murmur, gallop, or rubs. No ectopy Extremities: No deformities, edema, skin discoloration, clubbing or cyanosis. Good capillary refill. Musculoskeletal: TTP left lateral hip +Christiano 4 maneuver left side, which brought patient to tears Neurological: Slow, apprehensive gait noted. No focal neurological deficits. ASSESSMENT/PLAN: 1. Low back pain, unspecified back pain laterality, unspecified chronicity, unspecified whether sciatica present - ICD9: 724.2, ICD10: M54.50 (primary diagnosis) Suspect to be lumbar spine versus hip. Stretching exercises advised and/or handouts given, application of heat/ice advised, pain control addressed (rx for very short term course of tramadol, as naprosyn is ineffective). Discussed medication indications, proper use, and potential adverse effects. All questions and concerns addressed to patient satisfaction. Pt is to seek further evaluation by PCP if problem persists, or if at any point the condition worsens. - XR LUMBAR GENERAL 3V AP/LAT/L5-S1 - TRAMADOL 50 MG TABLET 2. Left hip pain - ICD9: 719.45, ICD10: M25.552 See above - XR LUMBAR GENERAL 3V AP/LAT/L5-S1 - TRAMADOL 50 MG TABLET 3. Essential hypertension - ICD9: 401.9, ICD10: I10 This is difficult to adequately assess, based on patient's pain that is present today. We will reassess this once acute issue has been adequately addressed. - Continue current medications - Recommend home blood pressure monitoring, to bring results to next visit - Encouraged sodium restriction, DASH or Mediterranean diet - Recommend regular aerobic exercise F/u 2 wks LBP/BP Prescription instructions reviewed with patient as applicable. Potential red flag symptoms discussed with the patient. Reviewed appropriate action plan to take if red flag symptoms occur. Patient agreeable to treatment plan. Alphonso Marks PA-C documented in this encounter [facility] 06-06-2023 Note HNO ID: [id number] Author: Alphonso Marks PA-C Service: ? Author Type: Physician Organ Grinder Type: Progress Notes Filed: 06/06/2023 2:06 PM Note Text: CC: Patient presents with: Follow Up: blood pressure follow up new med HPI Maryanne Minaya is a 52 year old female who presents today for f/u blood pressure, after adding in HCTZ. LV was with Danielle Sandoval CNP on 05/16/23, and at that time, BP was elevated at 164/82 - was only on 100 mg Losartan at the time, hence adding the new medication last visit Just recently got a BP cuff but hasn't really been checking it routinely. Diabetes, type II: Sees Dr. Man (endo) for management of blood sugars. Will be seeing her 05/19. REVIEW OF SYSTEMS See HPI All other systems negative. PAST MEDICAL HISTORY Diagnosis Date Abnormal Pap smear of cervix 2010 DR DORANTES, REPEAT PAP NL Acquired hypothyroidism 06/08/2019 Acute kidney failure (HCC) 10/2020 Chlamydia 1995 Diabetes mellitus (HCC) Diabetes mellitus complicating , antepartum Essential hypertension 10/29/2021 Fibromyalgia Hyperlipidemia Mental disorder DEPRESSION/ANXIETY Neuropathy Non-healing open wound of toe 04/30/2021 RUBIA (obstructive sleep apnea) DME DASCO for PAP machine Osteomyelitis (HCC) 06/15/2019 right toe depression Sleep apnea PAST SURGICAL HISTORY Procedure Laterality Date AMPUTATION FOOT,TRANSMETATARSAL Right 06/15/2019 2nd toe APPENDECTOMY 2014 [facility] (MISSED AB 1ST TRIMESTER) EXCISION TONSIL LESIONS BILATERAL I AND D ABSCESS 04/16/2023 middle abdomen INSJ TUNNELED CVC W/O SUBQ PORT/FRANCHISE CONSULTANT AGE 6 YR/> 11/15/2020 LAPAROSCOPIC TUBAL LIGATION/RING/CLIP 12/2013 PAST SURGICAL HISTORY OF Right 04/02/2019 right great toe amputation ALLERGIES Azithromycin, Clindamycin, Emycin [Erythromycin], and Vancomycin MEDICATIONS hydroCHLOROthiazide 12.5 mg capsule Take 1 capsule by mouth once daily. montelukast (SINGULAIR) 10 mg tablet Take 1 tablet by mouth daily at bedtime. levothyroxine (LEVOXYL) 75 mcg tablet TAKE 1 TABLET ON AN EMPTY STOMACH DAILY BUT TAKE 2 TABLETS ON FRIDAY FOR THYROID traZODone (DESYREL) 100 mg tablet losartan (COZAAR) 100 mg tablet take 1 tablet by mouth once daily ergocalciferol 50,000 unit capsule (VITAMIN D2, DRISDOL) Take 1 capsule by mouth two times a week. TO BE TAKEN ORALLY DIRECTED. Take 1 tablet by mouth twice weekly [id number], then decrease to 1 tablet weekly. gabapentin (NEURONTIN) 600 mg tablet Take 1 tablet by mouth twice daily for 180 days. DEXCOM G6 TRANSMITTER ana use as directed AND CHANGE EVERY 90 DAYS DEXCOM G6 SENSOR ana APPLY 1 SENSOR AND CHANGE EVERY 10 DAYS OMNIPOD 5 G6 PODS, GEN 5, crtg USE 1 POD EVERY 48 HOURS meclizine (ANTIVERT) 25 mg tab TAKE 1 TABLET TWICE A DAY pantoprazole DR (PROTONIX) 20 mg tablet TAKE 1 TABLET TWICE A DAY atorvastatin (LIPITOR) 80 mg tablet take 1 tablet by mouth once daily diclofenac (VOLTAREN) 1 % topical gel apply 2 grams topically to affected area twice a day insulin glargine (LANTUS SOLOSTAR, BASAGLAR KWIKPEN) 100 unit/mL (3 mL) 50 Units. naproxen (NAPROSYN) 500 mg tablet take 1 tablet by mouth twice a day NEEDED FOR PAIN or inflammation with food albuterol HFA (PROAIR HFA) 90 mcg/actuation inhaler Inhale 2 Puffs as instructed every 4 hours as needed. fluticasone (FLONASE) 50 mcg/actuation nasal spray Use 2 Sprays in each nostril once daily. Rinse mouth after use. insulin needles, DISPOSABLE, (PEN NEEDLE) 31 gauge x 5/16 1 Each three times daily. ondansetron orally disintegrating (ZOFRAN ODT) 4 mg disintegrating tablet Take 1 tablet by mouth every 6 hours as needed for Nausea/Vomiting. acetaminophen (TYLENOL) 500 mg tablet Take 1,000 mg by mouth every 4 hours as needed. DULoxetine (CYMBALTA) 60 mg capsule Take 60 mg by mouth once daily. Take 60 mg in the evening, along with 30 mg dose in the morning. Gauze Bandage 1 X 5 -yard bndg Apply 1 application to affected area once daily. Non-Adherent Bandage (CURITY ABDOMINAL PAD) 5 X 9 bndg Apply 1 application to affected area once daily. Swab (Q-TIPS/SINGLE-TIP APPLICATOR) swab 1 Each once daily. flash glucose scanning reader (FREESTYLE SOFI 14 DAY READER) misc Use to check blood sugars 4 times daily. flash glucose sensor (FREESTYLE SOFI 14 DAY SENSOR) kit Use to check blood sugars 4 times daily. alcohol swabs padm Apply 1 application to affected area four times daily. FAMILY HISTORY Problem Relation Age of Onset Thyroid Mother Asthma Father Heart Maternal Grandmother Cancer Maternal Grandfather prostate Diabetes Maternal Aunt Diabetes Maternal Uncle Diabetes Other Social History Tobacco Use Smoking status: Every Day Packs/day: 0.50 Years: 25.00 Additional pack years: 0.00 Total pack years: 12.50 Types: Cigarettes Smokeless tobacco: Never Vaping Use Vaping Use: Never used Substance Use Topics Alcohol use: No Drug use: No PHYSICAL (more content not included)... [facility] 06-06-2023 History of Present illness Narrative CC: Patient presents with: Follow Up: blood pressure follow up new med HPI Maryanne Minaya is a 52 year old female who presents today for f/u blood pressure, after adding in HCTZ. LV was with Danielle Sandoval CNP on 05/16/23, and at that time, BP was elevated at 164/82 - was only on 100 mg Losartan at the time, hence adding the new medication last visit Just recently got a BP cuff but hasn't really been checking it routinely. Diabetes, type II: Sees Dr. Man (endo) for management of blood sugars. Will be seeing her 05/19. REVIEW OF SYSTEMS See HPI All other systems negative. PAST MEDICAL HISTORY Diagnosis Date Abnormal Pap smear of cervix 2010 DR DORANTES, REPEAT PAP NL Acquired hypothyroidism 06/08/2019 Acute kidney failure (HCC) 10/2020 Chlamydia 1995 Diabetes mellitus (HCC) Diabetes mellitus complicating , antepartum Essential hypertension 10/29/2021 Fibromyalgia Hyperlipidemia Mental disorder DEPRESSION/ANXIETY Neuropathy Non-healing open wound of toe 04/30/2021 URBIA (obstructive sleep apnea) DME DASCO for PAP machine Osteomyelitis (HCC) 06/15/2019 right toe depression Sleep apnea PAST SURGICAL HISTORY Procedure Laterality Date AMPUTATION FOOT,TRANSMETATARSAL Right 06/15/2019 2nd toe APPENDECTOMY 2015 D&C (MISSED AB 1ST TRIMESTER) EXCISION TONSIL LESIONS BILATERAL I & D ABSCESS 04/16/2023 middle abdomen INSJ TUNNELED CVC W/O SUBQ PORT/FRANCHISE CONSULTANT AGE 6 YR/> 11/15/2020 LAPAROSCOPIC TUBAL LIGATION/RING/CLIP 12/2013 PAST SURGICAL HISTORY OF Right 04/02/2019 right great toe amputation ALLERGIES Azithromycin, Clindamycin, Emycin [Erythromycin], and Vancomycin MEDICATIONS hydroCHLOROthiazide 12.5 mg capsule Take 1 capsule by mouth once daily. montelukast (SINGULAIR) 10 mg tablet Take 1 tablet by mouth daily at bedtime. levothyroxine (LEVOXYL) 75 mcg tablet TAKE 1 TABLET ON AN EMPTY STOMACH DAILY BUT TAKE 2 TABLETS ON FRIDAY FOR THYROID traZODone (DESYREL) 100 mg tablet losartan (COZAAR) 100 mg tablet take 1 tablet by mouth once daily ergocalciferol 50,000 unit capsule (VITAMIN D2, DRISDOL) Take 1 capsule by mouth two times a week. TO BE TAKEN ORALLY DIRECTED. Take 1 tablet by mouth twice weekly [id number], then decrease to 1 tablet weekly. gabapentin (NEURONTIN) 600 mg tablet Take 1 tablet by mouth twice daily for 180 days. DEXCOM G6 TRANSMITTER ana use as directed AND CHANGE EVERY 90 DAYS DEXCOM G6 SENSOR ana APPLY 1 SENSOR AND CHANGE EVERY 10 DAYS OMNIPOD 5 G6 PODS, GEN 5, crtg USE 1 POD EVERY 48 HOURS meclizine (ANTIVERT) 25 mg tab TAKE 1 TABLET TWICE A DAY pantoprazole DR (PROTONIX) 20 mg tablet TAKE 1 TABLET TWICE A DAY atorvastatin (LIPITOR) 80 mg tablet take 1 tablet by mouth once daily diclofenac (VOLTAREN) 1 % topical gel apply 2 grams topically to affected area twice a day insulin glargine (LANTUS SOLOSTAR, BASAGLAR KWIKPEN) 100 unit/mL (3 mL) 50 Units. naproxen (NAPROSYN) 500 mg tablet take 1 tablet by mouth twice a day NEEDED FOR PAIN or inflammation with food albuterol HFA (PROAIR HFA) 90 mcg/actuation inhaler Inhale 2 Puffs as instructed every 4 hours as needed. fluticasone (FLONASE) 50 mcg/actuation nasal spray Use 2 Sprays in each nostril once daily. Rinse mouth after use. insulin needles, DISPOSABLE, (PEN NEEDLE) 31 gauge x 5/16 1 Each three times daily. ondansetron orally disintegrating (ZOFRAN ODT) 4 mg disintegrating tablet Take 1 tablet by mouth every 6 hours as needed for Nausea/Vomiting. acetaminophen (TYLENOL) 500 mg tablet Take 1,000 mg by mouth every 4 hours as needed. DULoxetine (CYMBALTA) 60 mg capsule Take 60 mg by mouth once daily. Take 60 mg in the evening, along with 30 mg dose in the morning. Gauze Bandage 1 X 5 -yard bndg Apply 1 application to affected area once daily. Non-Adherent Bandage (CURITY ABDOMINAL PAD) 5 X 9 bndg Apply 1 application to affected area once daily. Swab (Q-TIPS/SINGLE-TIP APPLICATOR) swab 1 Each once daily. flash glucose scanning reader (FREESTYLE SOFI 14 DAY READER) [facility] [place] to check blood sugars 4 times daily. flash glucose sensor (FREESTYLE SOFI 14 DAY SENSOR) kit Use to check blood sugars 4 times daily. alcohol swabs padm Apply 1 application to affected area four times daily. FAMILY HISTORY Problem Relation Age of Onset Thyroid Mother Asthma Father Heart Maternal Grandmother Cancer Maternal Grandfather prostate Diabetes Maternal Aunt Diabetes Maternal Uncle Diabetes Other Social History Tobacco Use Smoking status: Every Day Packs/day: 0.50 Years: 25.00 Additional pack years: 0.00 Total pack years: 12.50 Types: Cigarettes Smokeless tobacco: Never Vaping Use Vaping Use: Never used Substance Use Topics Alcohol use: No Drug use: No PHYSICAL EXAM BP 138/84 (BP Site: Left Arm, BP Position: Sitting, BP Cuff Size: Large Adult) Pulse 83 Temp 36.5 C (97.7 F) Resp 16 Ht 162.6 cm (5' 4 ) Wt 112 kg (247 lb) LMP 09/17/2019 SpO2 95% BMI 42.40 kg/m General Appearance: well appearing, in no acute distress, alert Psych: mood and affect broad and appropriate Skin: Skin color, texture, turgor normal for age Lungs: Lungs clear to auscultation. No wheezing, rhonchi, rales. Heart: RRR without murmur, gallop, or rubs. Extremities: No gross deformities, significant edema, skin discoloration, clubbing or cyanosis. Neurological: Gait normal. No focal neurological deficits. Sensation grossly intact. ASSESSMENT/PLAN: 1. Essential hypertension - ICD9: 401.9, ICD10: I10 (primary diagnosis) - Improving control, has only been on HCTZ about 2.5 weeks - Continue current medications. Labs as ordered at prior visit. - Recommend home blood pressure monitoring, to bring results to next visit - Encouraged sodium restriction, DASH or Mediterranean diet - Recommend regular aerobic exercise 2. Left hip pain - ICD9: 719.45, ICD10: M25.552 Refills provided on naprosyn per pt request. - NAPROXEN 500 MG TABLET 3. Other specified hypothyroidism - ICD9: 244.8, ICD10: E03.8 - check TSH today (ordered prior visit). Will make adjustments as necessary pending results. Prescription instructions reviewed with patient as applicable. Potential red flag symptoms discussed with the patient. Reviewed appropriate action plan to take if red flag symptoms occur. Patient agreeable to treatment plan. Alphonso Marks PA-C documented in this encounter [facility] 05-26-2023 Note HNO ID: [id number] Author: Rodolfo Templeton RT(Nara) Service: ? Author Type: Technologist Type: Progress Notes Filed: 05/26/2023 11:07 AM Note Text: Radiology Service Progress Note PATIENT NAME: Maryanne Minaya DATE OF SERVICE: May 26, 2023 TIME: 10:55 AM PATIENT IDENTITY VERIFICATION COMPLETED USING TWO (2) IDENTIFIERS: Name and Date of confirmed by patient verbally. FALL SCREENING: Has the patient had 2 falls in the last year or 1 fall with injury or currently using an Ambulatory Assistive Device (Walker, Cane, Wheelchair, Crutches, etc.)? No PATIENT GENDER DATA: Female. status: : No status: NO. PATIENT RELEVANT IMPLANT DATA REVIEWED: Not Applicable RADIOLOGY DEPARTMENT: Bone Density PERIPHERAL IV DATA: Not applicable SIGNED BY: RT Vlad(R) May 26, 2023 10:55 AM [facility] 05-26-2023 History of Present illness Narrative Radiology Service Progress Note PATIENT NAME: Maryanne Minaya DATE OF SERVICE: May 26, 2023 TIME: 10:55 AM PATIENT IDENTITY VERIFICATION COMPLETED USING TWO (2) IDENTIFIERS: Name and Date of confirmed by patient verbally. FALL SCREENING: Has the patient had 2 falls in the last year or 1 fall with injury or currently using an Ambulatory Assistive Device (Walker, Cane, Wheelchair, Crutches, etc.)? No PATIENT GENDER DATA: Female. status: : No status: NO. PATIENT RELEVANT IMPLANT DATA REVIEWED: Not Applicable RADIOLOGY DEPARTMENT: Bone Density PERIPHERAL IV DATA: Not applicable SIGNED BY: RT Vlad(R) May 26, 2023 10:55 AM documented in this encounter [facility] 05-23-2023 Miscellaneous Notes Patient notified. She needs to follow up with her metal washing machine operator as this may be cause of her intermittent pain. Thank you Danielle Sandoval APRN.CNP Patient notified, states it has been several years since seen by ANESTHETIC ASSISTANT. US with only showing uterine changes that can be seen when the uterine lining grows into the muscle wall of the uterus. I am unsure if this condition could cause your intermittent pain. When was the last time you saw gynecology? Thank you Danielle Sandoval APRN.SWISS MACHINIST documented in this encounter [facility] 05-19-2023 Note HNO ID: [id number] Author: Marcelle Ya RDMS Service: ? Author Type: Boxing Instructor Type: Progress Notes Filed: 05/19/2023 3:14 PM Note Text: Radiology Service Progress Note PATIENT NAME: Maryanne Minaya DATE OF SERVICE: May 19, 2023 TIME: 3:14 PM PATIENT IDENTITY VERIFICATION COMPLETED USING TWO (2) IDENTIFIERS: Name and Date of confirmed by patient verbally. FALL SCREENING: Has the patient had 2 falls in the last year or 1 fall with injury or currently using an Ambulatory Assistive Device (Walker, Cane, Wheelchair, Crutches, etc.)? No PATIENT GENDER DATA: Female. status: : No status: NO. PATIENT RELEVANT IMPLANT DATA REVIEWED: Not Applicable RADIOLOGY DEPARTMENT: Ultrasound PERIPHERAL IV DATA: Not applicable SIGNED BY: Marcelle Ya RDMS RVT May 19, 2023 3:14 PM [facility] 05-19-2023 History of Present illness Narrative Radiology Service Progress Note PATIENT NAME: Maryanne Minaya DATE OF SERVICE: May 19, 2023 TIME: 3:14 PM PATIENT IDENTITY VERIFICATION COMPLETED USING TWO (2) IDENTIFIERS: Name and Date of confirmed by patient verbally. FALL SCREENING: Has the patient had 2 falls in the last year or 1 fall with injury or currently using an Ambulatory Assistive Device (Walker, Cane, Wheelchair, Crutches, etc.)? No PATIENT GENDER DATA: Female. status: : No status: NO. PATIENT RELEVANT IMPLANT DATA REVIEWED: Not Applicable RADIOLOGY DEPARTMENT: Ultrasound PERIPHERAL IV DATA: Not applicable SIGNED BY: Marcelle Ya RDMS RVRaghu May 19, 2023 3:14 PM documented in this encounter [facility] 05-16-2023 Note HNO ID: [id number] Author: Danielle Sandoval APRN.ESCOBAR Service: ? Author Type: Nurse Practitioner Type: Progress Notes Filed: 05/16/2023 4:19 PM Note Text: CC: Patient presents with: Yearly Exam: Yearly exam HPI Maryanne Minaya is a 52 year old female who presents today for follow up on cellulitis and review chronic conditions. Return for cellulitis: Much improvement with the bactrim, still with 3 days left of treatment but drainage has greatly decreased, no redness, no tenderness, fever or chills. DIABETES MELLITUS: Ms. Minaya denies excessive thirst or increased frequency of urination, chest pain or dyspnea , numbness, tingling or pain in extremities, new or unusual visual symptoms, low sugar/hypoglycemic reactions, weight loss/gain, and bowel changes/loose stools. Follows a diabetic diet most of the time. Patient's last HgA1C was Hemoglobin A1C (%) Date Value 05/07/2023 9.4 01/21/2022 7.7 11/13/2021 8.5 07/31/2021 10.1 ) Sees [facility], next appointment is next month. Has not had her CGM but getting it within the next few days. Takes 50 units of lantus. Takes novolog sliding scale depending on carb intake and blood sugar result. Uses 1 for every 5 carbs but was not able to dose regarding blood sugar results as she has not had a way to check her blood sugar. Once received, she is going to start putting dexcom and omnipod on arms as she is concerned this may be cuase of abscesses. HTN and HLD: Ms. Minaya indicates that she is feeling well and denies any symptoms referable to elevated blood pressure. Specifically denies headache, chest pain, palpitations, dyspnea. Patient denies any side effects of her medication(s) and is compliant with their regimen. She does not check BP's generally but did check once with a wrist monitor a few weeks and BP was high. Can't remember what reading was. Maryanne works out regularly 3-4 times per week with walking. She watches her diet for sodium, low fat and low cholesterol most of the time. Last 3 Encounter BP Readings: Date: BP: 05/16/2023 156/86[BP Ervin[ 05/12/2023 144/86 04/17/2023 136/88 Dependant edema: Increases as the day goes on. Decreases with elevation and legs are completely normal in the morning. Menieres Disease: taking meclizine daily, no increase in her occasional dizziness. No official diagnosis of asthma or COPD. Smokes 1ppd. Does have an inhaler she uses on and off but not daily. Does report a chronic nonproductive cough and some wheezing but unsure if it is from sinuses. Denies fever, chills, shortness of breath, or chest pain. REVIEW OF SYSTEMS General: no fevers, no chills, no night sweats, no recurrent infections, no change in appetite, no change in energy, and no significant changes in weight Respiratory: no wheezing, no shortness of breath, no hemoptysis Cardiovascular: no chest pain, no chest pressure, no palpitations, GI: No nausea, vomiting, or diarrhea Neurologic: No headache, weakness, numbness, tingling, memory loss, syncope. PAST MEDICAL HISTORY Diagnosis Date Abnormal Pap smear of cervix 2010 DR DORANTES, REPEAT PAP NL Acquired hypothyroidism 06/08/2019 Acute kidney failure (HCC) 10/2020 Chlamydia 1994 Diabetes mellitus (HCC) Diabetes mellitus complicating , antepartum Essential hypertension 10/29/2021 Fibromyalgia Hyperlipidemia Mental disorder DEPRESSION/ANXIETY Neuropathy Non-healing open wound of toe 04/30/2021 RUBIA (obstructive sleep apnea) DME DASCO for PAP machine Osteomyelitis (HCC) 06/15/2019 right toe depression Sleep apnea PAST SURGICAL HISTORY Procedure Laterality Date AMPUTATION FOOT,TRANSMETATARSAL Right 06/15/2019 2nd toe APPENDECTOMY 2014 [facility] (MISSED AB 1ST TRIMESTER) EXCISION TONSIL LESIONS BILATERAL I AND D ABSCESS 04/16/2023 middle abdomen INSJ TUNNELED CVC W/O SUBQ PORT/FRANCHISE CONSULTANT AGE 6 YR/> 11/15/2020 LAPAROSCOPIC TUBAL LIGATION/RING/CLIP 12/2013 PAST SURGICAL HISTORY OF Right 04/02/2019 right great toe amputation ALLERGIES Azithromycin, Clindamycin, Emycin [Erythromycin], and Vancomycin MEDICATIONS sulfamethoxazole-trimethoprim (BACTRIM DS) 800-160 mg per tablet Take 1 tablet by mouth twice daily for 7 days. levothyroxine (LEVOXYL) 75 mcg tablet TAKE 1 TABLET ON AN EMPTY STOMACH DAILY BUT TAKE 2 TABLETS ON FRIDAY FOR THYROID traZODone (DESYREL) 100 mg tablet Gauze Bandage 1 X 5 -yard bndg Apply 1 application to affected area once daily. Non-Adherent Bandage (CURITY ABDOMINAL PAD) 5 X 9 bndg Apply 1 application to affected area once daily. Swab (Q-TIPS/SINGLE-TIP APPLICATOR) swab 1 Each once daily. losartan (COZAAR) 100 mg tablet take 1 tablet by mouth once daily ergocalciferol 50,000 unit capsule (VITAMIN D2, DRISDOL) Take 1 capsule by mouth two times a week. TO BE TAKEN ORALLY DIRECTED. Take 1 tablet by mouth twice weekly [id number], then decrease to 1 tablet weekly. gabape (more content not included)... [facility] 05-16-2023 Instructions Danielle Sandoval APRN.CNP - 05/16/2023 11:02 AM EDT Get blood work drawn 1-2 weeks after starting hydrochlorothiazide. documented in this encounter [facility] 05-16-2023 History of Present illness Narrative CC: Patient presents with: Yearly Exam: Yearly exam HPI Maryanne Minaya is a 52 year old female who presents today for follow up on cellulitis and review chronic conditions. Return for cellulitis: Much improvement with the bactrim, still with 3 days left of treatment but drainage has greatly decreased, no redness, no tenderness, fever or chills. DIABETES MELLITUS: Ms. Minaya denies excessive thirst or increased frequency of urination, chest pain or dyspnea , numbness, tingling or pain in extremities, new or unusual visual symptoms, low sugar/hypoglycemic reactions, weight loss/gain, and bowel changes/loose stools. Follows a diabetic diet most of the time. Patient's last HgA1C was Hemoglobin A1C (%) Date Value 05/07/2023 9.4 01/21/2022 7.7 11/13/2021 8.5 07/31/2021 10.1 ) Sees [facility], next appointment is next month. Has not had her CGM but getting it within the next few days. Takes 50 units of lantus. Takes novolog sliding scale depending on carb intake and blood sugar result. Uses 1 for every 5 carbs but was not able to dose regarding blood sugar results as she has not had a way to check her blood sugar. Once received, she is going to start putting dexcom and omnipod on arms as she is concerned this may be cuase of abscesses. HTN and HLD: Ms. Minaya indicates that she is feeling well and denies any symptoms referable to elevated blood pressure. Specifically denies headache, chest pain, palpitations, dyspnea. Patient denies any side effects of her medication(s) and is compliant with their regimen. She does not check BP's generally but did check once with a wrist monitor a few weeks and BP was high. Can't remember what reading was. Maryanne works out regularly 3-4 times per week with walking. She watches her diet for sodium, low fat and low cholesterol most of the time. Last 3 Encounter BP Readings: Date: BP: 05/16/2023 156/86[BP Ervin[ 05/12/2023 144/86 04/17/2023 136/88 Dependant edema: Increases as the day goes on. Decreases with elevation and legs are completely normal in the morning. Menieres Disease: taking meclizine daily, no increase in her occasional dizziness. No official diagnosis of asthma or COPD. Smokes 1ppd. Does have an inhaler she uses on and off but not daily. Does report a chronic nonproductive cough and some wheezing but unsure if it is from sinuses. Denies fever, chills, shortness of breath, or chest pain. REVIEW OF SYSTEMS General: no fevers, no chills, no night sweats, no recurrent infections, no change in appetite, no change in energy, and no significant changes in weight Respiratory: no wheezing, no shortness of breath, no hemoptysis Cardiovascular: no chest pain, no chest pressure, no palpitations, GI: No nausea, vomiting, or diarrhea Neurologic: No headache, weakness, numbness, tingling, memory loss, syncope. PAST MEDICAL HISTORY Diagnosis Date Abnormal Pap smear of cervix 2010 DR DORANTES, REPEAT PAP NL Acquired hypothyroidism 06/08/2019 Acute kidney failure (HCC) 10/2020 Chlamydia 1995 Diabetes mellitus (HCC) Diabetes mellitus complicating , antepartum Essential hypertension 10/29/2021 Fibromyalgia Hyperlipidemia Mental disorder DEPRESSION/ANXIETY Neuropathy Non-healing open wound of toe 04/30/2021 RUBIA (obstructive sleep apnea) DME DASCO for PAP machine Osteomyelitis (HCC) 06/15/2019 right toe depression Sleep apnea PAST SURGICAL HISTORY Procedure Laterality Date AMPUTATION FOOT,TRANSMETATARSAL Right 06/15/2019 2nd toe APPENDECTOMY 2015 [facility] (MISSED AB 1ST TRIMESTER) EXCISION TONSIL LESIONS BILATERAL I & D ABSCESS 04/16/2023 middle abdomen INSJ TUNNELED CVC W/O SUBQ PORT/FRANCHISE CONSULTANT AGE 6 YR/> 11/15/2020 LAPAROSCOPIC TUBAL LIGATION/RING/CLIP 12/2013 PAST SURGICAL HISTORY OF Right 04/02/2019 right great toe amputation ALLERGIES Azithromycin, Clindamycin, Emycin [Erythromycin], and Vancomycin MEDICATIONS sulfamethoxazole-trimethoprim (BACTRIM DS) 800-160 mg per tablet Take 1 tablet by mouth twice daily for 7 days. levothyroxine (LEVOXYL) 75 mcg tablet TAKE 1 TABLET ON AN EMPTY STOMACH DAILY BUT TAKE 2 TABLETS ON FRIDAY FOR THYROID traZODone (DESYREL) 100 mg tablet Gauze Bandage 1 X 5 -yard bndg Apply 1 application to affected area once daily. Non-Adherent Bandage (CURITY ABDOMINAL PAD) 5 X 9 bndg Apply 1 application to affected area once daily. Swab (Q-TIPS/SINGLE-TIP APPLICATOR) swab 1 Each once daily. losartan (COZAAR) 100 mg tablet take 1 tablet by mouth once daily ergocalciferol 50,000 unit capsule (VITAMIN D2, DRISDOL) Take 1 capsule by mouth two times a week. TO BE TAKEN ORALLY DIRECTED. Take 1 tablet by mouth twice weekly [id number], then decrease to 1 tablet weekly. gabapentin (NEURONTIN) 600 mg tablet Take 1 tablet by mouth twice daily for 180 days. DEXCOM G6 TRANSMITTER ana use as directed AND CHANGE EVERY 90 DAYS DEXCOM G6 SENSOR ana APPLY 1 SENSOR AND CHANGE EVERY 10 DAYS OMNIPOD 5 G6 PODS, GEN 5, crtg USE 1 POD EVERY 48 HOURS naproxen (NAPROSYN) 500 mg tablet Take 1 tablet by mouth twice daily as needed (for pain/inflammation). Take with food. meclizine (ANTIVERT) 25 mg tab TAKE 1 TABLET TWICE A DAY pantoprazole DR (PROTONIX) 20 mg tablet TAKE 1 TABLET TWICE A DAY atorvastatin (LIPITOR) 80 mg tablet take 1 tablet by mouth once daily diclofenac (VOLTAREN) 1 % topical gel apply 2 grams topically to affected area twice a day insulin glargine (LANTUS SOLOSTAR, BASAGLAR KWIKPEN) 100 unit/mL (3 mL) 50 Units. naproxen (NAPROSYN) 500 mg tablet take 1 tablet by mouth twice a day NEEDED FOR PAIN or inflammation with food albuterol HFA (PROAIR HFA) 90 mcg/actuation inhaler Inhale 2 Puffs as instructed every 4 hours as needed. fluticasone (FLONASE) 50 mcg/actuation nasal spray Use 2 Sprays in each nostril once daily. Rinse mouth after use. insulin needles, DISPOSABLE, (PEN NEEDLE) 31 gauge x 5/16 1 Each three times daily. ondansetron orally disintegrating (ZOFRAN ODT) 4 mg disintegrating tablet Take 1 tablet by mouth every 6 hours as needed for Nausea/Vomiting. flash glucose scanning reader (FREESTYLE SOFI 14 DAY READER) misc Use to check blood sugars 4 times daily. flash glucose sensor (FREESTYLE SOFI 14 DAY SENSOR) kit Use to check blood sugars 4 times daily. alcohol swabs padm Apply 1 application to affected area four times daily. acetaminophen (TYLENOL) 500 mg tablet Take 1,000 mg by mouth every 4 hours as needed. DULoxetine (CYMBALTA) 60 mg capsule Take 60 mg by mouth once daily. Take 60 mg in the evening, along with 30 mg dose in the morning. FAMILY HISTORY Problem Relation Age of Onset Thyroid Mother Asthma Father Heart Maternal Grandmother Cancer Maternal Grandfather prostate Diabetes Maternal Aunt Diabetes Maternal Uncle Diabetes Other Social History Tobacco Use Smoking status: Every Day Packs/day: 0.50 Years: 25.00 Additional pack years: 0.00 Total pack years: 12.50 Types: Cigarettes Smokeless tobacco: Never Vaping Use Vaping Use: Never used Substance Use Topics Alcohol use: No Drug use: No PHYSICAL EXAM BP 164/82 Pulse 80 Temp 36.4 C (97.6 F) (Temporal) Resp 16 Wt 117.9 kg (260 lb) LMP 09/17/2019 SpO2 95% BMI 44.63 kg/m General Appearance: well appearing, in no acute distress, alert Skin: abdominal wound with great improvement. No redness, tenderness, increased warmth, or drainage. Eyes: conjunctiva pink and moist, no icterus, sclera white, non-injected Lungs: Lungs clear to auscultation. No wheezing, rhonchi, rales. Heart: RRR without murmur, gallop, or rubs. No ectopy Extremities: No deformities, edema, skin discoloration, clubbing or cyanosis. Good capillary refill. Health maintenance reviewed with patient: COVID-19 VACCINE(1) Never done DTAP,TDAP,TD(1 - Tdap) Never done PNEUMOCOCCAL(2 - PCV) due on 06/14/2015 COLORECTAL CANCER SCREENING Never done HEPATITIS B(2 of 3 - 19+ 3-dose series) due on 01/02/2021 SHINGRIX VACCINE(1 of 2) Never done BP CONTROLLED (<130/80) due on 04/30/2022 MAMMOGRAM due on 10/17/2022 INFLUENZA(1) due on 05/30/2023 HBA1C due on 08/07/2023 DIABETIC FOOT EXAM due on 11/05/2023 DILATED RETINAL EXAM due on 11/30/2023 URINE ALBUMIN:CREATININE RATIO due on 05/07/2024 LDL CHOLESTEROL due on 05/07/2024 ANNUAL PCP TEAM CHRONIC DISEASE VISIT due on 05/12/2024 PAP TESTING due on 06/01/2024 HPV TESTING due on 06/01/2024 DEPRESSION ASSESSMENT Completed HEPATITIS C SCREENING Completed HIV SCREENING Completed DATA REVIEWED: Most recent labs ASSESSMENT/PLAN: 1. Open wound of abdomen, subsequent encounter - ICD9: V58.89, 879.2, ICD10: S31.109D (primary diagnosis) - healing well - continue with antibiotic as ordered - follow up immediately for any further concerns. 2. Essential hypertension - ICD9: 401.9, ICD10: I10 - Uncontrolled - Continue current medications - adding HCTZ but has history of low sodium needs rechecked in 1-2 weeks - Recommend home blood pressure monitoring, to bring results to next visit - Encouraged sodium restriction, DASH or Mediterranean diet - Recommend regular aerobic exercise - HYDROCHLOROTHIAZIDE 12.5 MG CAPSULE - BASIC METABOLIC PNL 3. Type 1 diabetes mellitus with other specified complication (HCC) - ICD9: 250.81, ICD10: E10.69 - Uncontrolled - Continue current medications - Blood glucose monitoring on a continuous glucose monitoring schedule - Counseled on healthy diet and regular exercise - Discussed need for and benefit of weight loss. BMI 44.63 kg/(m^2) - Start taking insulin as previously ordered once CGM available. Bring blood sugar readings to upcoming endocrinology appointment. 4. Hyperlipidemia, unspecified hyperlipidemia type - ICD9: 272.4, ICD10: E78.5 - Controlled except triglycerides elevated/probable result of uncontrolled diabetes. - Continue current medications - Counseled on healthy diet and regular exercise - Discussed need for and benefit of weight loss. BMI 44.63 kg/(m^2) 5. Meniere's disease, unspecified laterality - ICD9: 386.00, ICD10: H81.09 - controlled with current treatment - hopefully HCTZ is tolerated and this will help to decrease need of meclizine usage 6. Chronic cough - ICD9: 786.2, ICD10: R05.3 - encouraged smoking cessation - asthma versus copd - starting montelukast and will see if any improvement. - recommend PFTs but we can discuss further at your follow up appointment. Prescription instructions reviewed with patient as applicable. Potential red flag symptoms discussed with the patient. Reviewed appropriate action plan to take if red flag symptoms occur. Patient agreeable to treatment plan. Danielle Sandoval APRN.CNP documented in this encounter [facility] 05-12-2023 Note HNO ID: [id number] Author: Danielle Sandoval APRN.CNP Service: ? Author Type: Nurse Practitioner Type: Progress Notes Filed: 05/12/2023 1:01 PM Note Text: urinalyCC: Patient presents with: Recheck: 6 week follow up abscess HPI Maryanne Minaya is a 52 year old female who presents today for abscess follow up. Went to [place] [facility] 04/14/23 for abdominal wound abscess that was noted a few days before. IANDD was completed in ER and given IV antibiotics.. Was going to stay but left AMA. Was given augmentin for 1 week. Saw general surgery on 04/17. Had been consulted to plastic surgery but patient feels everything is improving so does not go. Has been changing her dressing every 2 days. Reports decrease redness and drainage. Did have small amount of creamy drainage on dressing but this has been decreasing and is almost gone. Denies any foul smelling draiange, fever, or chills. Has been more tired over the last month but states she has a lkot in her life right now. History of abdominal abscess to oppositie side of pannus that required surgery and a wound vac. Fully healed at this time Had recent blood work showing increased HgbA1c. Has appointment with endocrinology to discuss further but not until next month. TSH elevated. Has been taking levothyroxine 1 tablet daily. Is not doing the 2 on Friday. At end of visit reports a sharp pain to left serena on and off for years. Pain is a cramp and assumed related to ovarian cysts bursting but never diagnosed with this. CT of abdomen at recent ER visit did show a prominent left adnexal with recommendations of pelvic US for further examination, no kidney stones noted on CT. Denies any difficulty or pain urinating. REVIEW OF SYSTEMS General: no fevers, no chills, no night sweats, no recurrent infections, no change in appetite, and no significant changes in weight Respiratory: no cough, no wheezing, no shortness of breath, no hemoptysis Cardiovascular: no chest pain, no chest pressure, no palpitations, and no swelling Neurologic: No weakness, dizziness, syncope. PAST MEDICAL HISTORY Diagnosis Date Abnormal Pap smear of cervix 2010 DR DORANTES, REPEAT PAP NL Acquired hypothyroidism 06/08/2019 Acute kidney failure (HCC) 10/2020 Chlamydia 1995 Diabetes mellitus (HCC) Diabetes mellitus complicating , antepartum Essential hypertension 10/29/2021 Fibromyalgia Hyperlipidemia Mental disorder DEPRESSION/ANXIETY Neuropathy Non-healing open wound of toe 04/30/2021 RUBIA (obstructive sleep apnea) DME DASCO for PAP machine Osteomyelitis (HCC) 06/15/2019 right toe depression Sleep apnea PAST SURGICAL HISTORY Procedure Laterality Date AMPUTATION FOOT,TRANSMETATARSAL Right 06/15/2019 2nd toe APPENDECTOMY 2014 [facility] (MISSED AB 1ST TRIMESTER) EXCISION TONSIL LESIONS BILATERAL I AND D ABSCESS 04/16/2023 middle abdomen INSJ TUNNELED CVC W/O SUBQ PORT/FRANCHISE CONSULTANT AGE 6 YR/> 11/15/2020 LAPAROSCOPIC TUBAL LIGATION/RING/CLIP 12/2013 PAST SURGICAL HISTORY OF Right 04/02/2019 right great toe amputation ALLERGIES Azithromycin, Clindamycin, Emycin [Erythromycin], and Vancomycin MEDICATIONS traZODone (DESYREL) 100 mg tablet Sodium Chloride (MESALT) 0.75 X 39 bndg Apply 1 application to affected area once daily. Pack lightly into abdominal wound Gauze Bandage 4 X 4 bndg Apply 1 application to affected area once daily. Gauze Bandage 1 X 5 -yard bndg Apply 1 application to affected area once daily. Non-Adherent Bandage (CURITY ABDOMINAL PAD) 5 X 9 bndg Apply 1 application to affected area once daily. Swab (Q-TIPS/SINGLE-TIP APPLICATOR) swab 1 Each once daily. losartan (COZAAR) 100 mg tablet take 1 tablet by mouth once daily ergocalciferol 50,000 unit capsule (VITAMIN D2, DRISDOL) Take 1 capsule by mouth two times a week. TO BE TAKEN ORALLY DIRECTED. Take 1 tablet by mouth twice weekly [id number], then decrease to 1 tablet weekly. gabapentin (NEURONTIN) 600 mg tablet Take 1 tablet by mouth twice daily for 180 days. DEXCOM G6 TRANSMITTER ana use as directed AND CHANGE EVERY 90 DAYS DEXCOM G6 SENSOR ana APPLY 1 SENSOR AND CHANGE EVERY 10 DAYS OMNIPOD 5 G6 PODS, GEN 5, crtg USE 1 POD EVERY 48 HOURS naproxen (NAPROSYN) 500 mg tablet Take 1 tablet by mouth twice daily as needed (for pain/inflammation). Take with food. meclizine (ANTIVERT) 25 mg tab TAKE 1 TABLET TWICE A DAY pantoprazole DR (PROTONIX) 20 mg tablet TAKE 1 TABLET TWICE A DAY atorvastatin (LIPITOR) 80 mg tablet take 1 tablet by mouth once daily diclofenac (VOLTAREN) 1 % topical gel apply 2 grams topically to affected area twice a day levothyroxine (LEVOXYL) 75 mcg tablet TAKE 1 TABLET ON AN EMPTY STOMACH DAILY BUT TAKE 2 TABLETS ON FRIDAY FOR THYROID insulin glargine (LANTUS SOLOSTAR, BASAGLAR KWIKPEN) 100 unit/mL (3 mL) 50 Units. OZEMPIC 0.25 mg or 0.5 mg(2 mg/1.5 mL) pen inject 0.5 milligrams subcutaneously every week (Patient no (more content not included)... [facility] 05-12-2023 History of Present illness Narrative urinalyCC: Patient presents with: Recheck: 6 week follow up abscess HPI Maryanne Minaya is a 52 year old female who presents today for abscess follow up. Went to [place] ER 04/14/23 for abdominal wound abscess that was noted a few days before. I&D was completed in ER and given IV antibiotics.. Was going to stay but left AMA. Was given augmentin for 1 week. Saw general surgery on 04/17. Had been consulted to plastic surgery but patient feels everything is improving so does not go. Has been changing her dressing every 2 days. Reports decrease redness and drainage. Did have small amount of creamy drainage on dressing but this has been decreasing and is almost gone. Denies any foul smelling draiange, fever, or chills. Has been more tired over the last month but states she has a lkot in her life right now. History of abdominal abscess to oppositie side of pannus that required surgery and a wound vac. Fully healed at this time Had recent blood work showing increased HgbA1c. Has appointment with endocrinology to discuss further but not until next month. TSH elevated. Has been taking levothyroxine 1 tablet daily. Is not doing the 2 on Friday. At end of visit reports a sharp pain to left serena on and off for years. Pain is a cramp and assumed related to ovarian cysts bursting but never diagnosed with this. CT of abdomen at recent ER visit did show a prominent left adnexal with recommendations of pelvic US for further examination, no kidney stones noted on CT. Denies any difficulty or pain urinating. REVIEW OF SYSTEMS General: no fevers, no chills, no night sweats, no recurrent infections, no change in appetite, and no significant changes in weight Respiratory: no cough, no wheezing, no shortness of breath, no hemoptysis Cardiovascular: no chest pain, no chest pressure, no palpitations, and no swelling Neurologic: No weakness, dizziness, syncope. PAST MEDICAL HISTORY Diagnosis Date Abnormal Pap smear of cervix 2010 DR DORANTES, REPEAT PAP NL Acquired hypothyroidism 06/08/2019 Acute kidney failure (HCC) 10/2020 Chlamydia 1994 Diabetes mellitus (HCC) Diabetes mellitus complicating , antepartum Essential hypertension 10/29/2021 Fibromyalgia Hyperlipidemia Mental disorder DEPRESSION/ANXIETY Neuropathy Non-healing open wound of toe 04/30/2021 RUBIA (obstructive sleep apnea) DME DASCO for PAP machine Osteomyelitis (HCC) 06/15/2019 right toe depression Sleep apnea PAST SURGICAL HISTORY Procedure Laterality Date AMPUTATION FOOT,TRANSMETATARSAL Right 06/15/2019 2nd toe APPENDECTOMY 2015 [facility] (MISSED AB 1ST TRIMESTER) EXCISION TONSIL LESIONS BILATERAL I & D ABSCESS 04/16/2023 middle abdomen INSJ TUNNELED CVC W/O SUBQ PORT/FRANCHISE CONSULTANT AGE 6 YR/> 11/15/2020 LAPAROSCOPIC TUBAL LIGATION/RING/CLIP 12/2013 PAST SURGICAL HISTORY OF Right 04/02/2019 right great toe amputation ALLERGIES Azithromycin, Clindamycin, Emycin [Erythromycin], and Vancomycin MEDICATIONS traZODone (DESYREL) 100 mg tablet Sodium Chloride (MESALT) 0.75 X 39 bndg Apply 1 application to affected area once daily. Pack lightly into abdominal wound Gauze Bandage 4 X 4 bndg Apply 1 application to affected area once daily. Gauze Bandage 1 X 5 -yard bndg Apply 1 application to affected area once daily. Non-Adherent Bandage (CURITY ABDOMINAL PAD) 5 X 9 bndg Apply 1 application to affected area once daily. Swab (Q-TIPS/SINGLE-TIP APPLICATOR) swab 1 Each once daily. losartan (COZAAR) 100 mg tablet take 1 tablet by mouth once daily ergocalciferol 50,000 unit capsule (VITAMIN D2, DRISDOL) Take 1 capsule by mouth two times a week. TO BE TAKEN ORALLY DIRECTED. Take 1 tablet by mouth twice weekly [id number], then decrease to 1 tablet weekly. gabapentin (NEURONTIN) 600 mg tablet Take 1 tablet by mouth twice daily for 180 days. DEXCOM G6 TRANSMITTER aan use as directed AND CHANGE EVERY 90 DAYS DEXCOM G6 SENSOR ana APPLY 1 SENSOR AND CHANGE EVERY 10 DAYS OMNIPOD 5 G6 PODS, GEN 5, crtg USE 1 POD EVERY 48 HOURS naproxen (NAPROSYN) 500 mg tablet Take 1 tablet by mouth twice daily as needed (for pain/inflammation). Take with food. meclizine (ANTIVERT) 25 mg tab TAKE 1 TABLET TWICE A DAY pantoprazole DR (PROTONIX) 20 mg tablet TAKE 1 TABLET TWICE A DAY atorvastatin (LIPITOR) 80 mg tablet take 1 tablet by mouth once daily diclofenac (VOLTAREN) 1 % topical gel apply 2 grams topically to affected area twice a day levothyroxine (LEVOXYL) 75 mcg tablet TAKE 1 TABLET ON AN EMPTY STOMACH DAILY BUT TAKE 2 TABLETS ON FRIDAY FOR THYROID insulin glargine (LANTUS SOLOSTAR, BASAGLAR KWIKPEN) 100 unit/mL (3 mL) 50 Units. OZEMPIC 0.25 mg or 0.5 mg(2 mg/1.5 mL) pen inject 0.5 milligrams subcutaneously every week (Patient not taking: Reported on 11/25/2022) naproxen (NAPROSYN) 500 mg tablet take 1 tablet by mouth twice a day NEEDED FOR PAIN or inflammation with food albuterol HFA (PROAIR HFA) 90 mcg/actuation inhaler Inhale 2 Puffs as instructed every 4 hours as needed. fluticasone (FLONASE) 50 mcg/actuation nasal spray Use 2 Sprays in each nostril once daily. Rinse mouth after use. insulin needles, DISPOSABLE, (PEN NEEDLE) 31 gauge x 5/16 1 Each three times daily. ondansetron orally disintegrating (ZOFRAN ODT) 4 mg disintegrating tablet Take 1 tablet by mouth every 6 hours as needed for Nausea/Vomiting. flash glucose scanning reader (FREESTYLE SOFI 14 DAY READER) [facility] [place] blood sugars 4 times daily. flash glucose sensor (FREESTYLE SOFI 14 DAY SENSOR) kit Use to check blood sugars 4 times daily. alcohol swabs padm Apply 1 application to affected area four times daily. acetaminophen (TYLENOL) 500 mg tablet Take 1,000 mg by mouth every 4 hours as needed. DULoxetine (CYMBALTA) 60 mg capsule Take 60 mg by mouth once daily. Take 60 mg in the evening, along with 30 mg dose in the morning. FAMILY HISTORY Problem Relation Age of Onset Thyroid Mother Asthma Father Heart Maternal Grandmother Cancer Maternal Grandfather prostate Diabetes Maternal Aunt Diabetes Maternal Uncle Diabetes Other Social History Tobacco Use Smoking status: Every Day Packs/day: 0.50 Years: 25.00 Additional pack years: 0.00 Total pack years: 12.50 Types: Cigarettes Smokeless tobacco: Never Vaping Use Vaping Use: Never used Substance Use Topics Alcohol use: No Drug use: No PHYSICAL EXAM BP 144/86 Pulse 80 Temp 36.7 C (98 F) (Temporal) Resp 16 Wt 117.5 kg (259 lb) LMP 09/17/2019 SpO2 96% BMI 44.46 kg/m General Appearance: well appearing, in no acute distress, alert Skin: DSD removed for evaluation and replaced. Small amount of bloody drainage with small amount of light yellow sloughing to wound at right lower pannus region. Surrounding tissue of wound with redness Eyes: conjunctiva pink and moist, no icterus, sclera white, non-injected Lungs: Lungs clear to auscultation. No wheezing, rhonchi, rales. Heart: RRR without murmur, gallop, or rubs. No ectopy Abdomen: Abdomen soft, Bowel sounds normal. No masses, organomegaly. Pain with grimacing to left adnexal region Health maintenance reviewed with patient: COVID-19 VACCINE(1) Never done DTAP,TDAP,TD(1 - Tdap) Never done PNEUMOCOCCAL(2 - PCV) due on 06/14/2015 COLORECTAL CANCER SCREENING Never done HEPATITIS B(2 of 3 - 19+ 3-dose series) due on 01/02/2021 SHINGRIX VACCINE(1 of 2) Never done BP CONTROLLED (<130/80) due on 04/30/2022 MAMMOGRAM due on 10/17/2022 INFLUENZA(1) due on 05/30/2023 HBA1C due on 08/07/2023 DIABETIC FOOT EXAM due on 11/05/2023 DILATED RETINAL EXAM due on 11/30/2023 ANNUAL PCP TEAM CHRONIC DISEASE VISIT due on 03/20/2024 URINE ALBUMIN:CREATININE RATIO due on 05/07/2024 LDL CHOLESTEROL due on 05/07/2024 PAP TESTING due on 06/01/2024 HPV TESTING due on 06/01/2024 DEPRESSION ASSESSMENT Completed HEPATITIS C SCREENING Completed HIV SCREENING Completed DATA REVIEWED: Most recent labs but needs to come in for better review and discussion of these ASSESSMENT/PLAN: 1. Open wound of abdomen, subsequent encounter - ICD9: V58.89, 879.2, ICD10: S31.109D (primary diagnosis) - healing but still with small amount of redness - bactrim as ordered - follow up in one week are earlier if needed - got to ER for red streaking, fever, chills, or other urgent concern - recommend the visit to see plastic surgery as already ordered by different provider. 2. Left adnexal tenderness - ICD9: 625.9, ICD10: R10.2 - with recent CT recommending pelvic US will do this and also send urine for further testing as she has this pain and dip was positive for blood. - US FEMALE PELVIS TRANSABD LTD - US FEMALE PELVIS TRANSVAG - UA DIP, URINE (POC) - URINALYSIS, WITH MICROSCOPIC - URINE CULTURE 3. Abnormal CT scan, pelvis - ICD9: 793.6, ICD10: R93.5 As above - US FEMALE PELVIS TRANSABD LTD - US FEMALE PELVIS TRANSVAG - UA DIP, URINE (POC) 4. Acquired hypothyroidism - ICD9: 244.9, ICD10: E03.9 - take as ordered - LEVOTHYROXINE 75 MCG TABLET - TSH in 4-6 weeks 5. Hematuria, unspecified type - ICD9: 599.70, ICD10: R31.9 See #2 - URINALYSIS, WITH MICROSCOPIC - URINE CULTURE 6. Medication management - ICD9: V58.69, ICD10: Z79.899 - TSH BLD Prescription instructions reviewed with patient as applicable. Potential red flag symptoms discussed with the patient. Reviewed appropriate action plan to take if red flag symptoms occur. Patient agreeable to treatment plan. Danielle Sandoval APRN.CNP documented in this encounter [facility] 05-09-2023 Miscellaneous Notes Patient notified. Letter printed. Please let patient know. Thank you Danielle Sandoval APRN.CNP Patient is requesting a letter of medical necessity for her dog that is an [employer] that is required every two years. Please notify the patient when letter is complete and ready for picking tech. documented in this encounter [facility] 04-25-2023 Note HNO ID: [id number] Author: Keke Dalton PA-C Service: ? Author Type: Physician Organ Grinder Type: Progress Notes Filed: 04/25/2023 7:59 AM Note Text: HISTORY AND PHYSICAL Maryanne Minaya 1970 REFERRING PHYSICIAN: Cassius Fletcher APRN.WORKFORCE CONSULTANT CHIEF COMPLAINT: abdominal abscess HPI: Maryanne is a 52 year old female with a complaint of an abdomina abscess X approximately 1 week. Seen at ED previously on 04/14/23. She was treated with IV antibiotics for cellulitis and underwent incision and drainage for abscess collection. She had left hospital AMA. Notes improvement in symptoms since that time, decreased pain and redness. Notes some serous discharge from the abscess. Cultures showed staph. she NOTES a history of diabetes. Has had prior abdominal abscess on opposite side of abdomen which was extensive and required a wound vac. The patient was prescribed oral antibiotics but states was unable to get this filled at pharmacy. States she took a couple of amoxicillin-clavulanic acid tablets that she had at home and felt these were helping. SIGNIFICANT MEDICAL PROBLEMS: PAST MEDICAL HISTORY Diagnosis Date Abnormal Pap smear of cervix 2010 DR DORANTES, REPEAT PAP NL Acquired hypothyroidism 06/08/2019 Acute kidney failure (HCC) 10/2020 Chlamydia 1994 Diabetes mellitus (HCC) Diabetes mellitus complicating , antepartum Essential hypertension 10/29/2021 Fibromyalgia Hyperlipidemia Mental disorder DEPRESSION/ANXIETY Neuropathy Non-healing open wound of toe 04/30/2021 [place]UBIA (obstructive sleep apnea) [facility] [place] Osteomyelitis (HCC) 06/15/2019 right toe depression Sleep apnea OPERATIONS: PAST SURGICAL HISTORY Procedure Laterality Date AMPUTATION FOOT,TRANSMETATARSAL Right 06/15/2019 2nd toe APPENDECTOMY 2014 [facility] (MISSED AB 1ST TRIMESTER) EXCISION TONSIL LESIONS BILATERAL I AND D ABSCESS 04/16/2023 middle abdomen INSJ TUNNELED CVC W/O SUBQ PORT/FRANCHISE CONSULTANT AGE 6 YR/> 11/15/2020 LAPAROSCOPIC TUBAL LIGATION/RING/CLIP 12/2013 PAST SURGICAL HISTORY OF Right 04/02/2019 right great toe amputation CURRENT MEDICATIONS: Current Outpatient Medications Medication Sig Dispense Refill traZODone (DESYREL) 100 mg tablet Sodium Chloride (MESALT) 0.75 X 39 bndg Apply 1 application to affected area once daily. Pack lightly into abdominal wound 2 Each 1 Gauze Bandage 4 X 4 bndg Apply 1 application to affected area once daily. 30 Each 0 Gauze Bandage 1 X 5 -yard bndg Apply 1 application to affected area once daily. 2 Each 1 Non-Adherent Bandage (CURITY ABDOMINAL PAD) 5 X 9 bndg Apply 1 application to affected area once daily. 30 Each 0 Swab (Q-TIPS/SINGLE-TIP APPLICATOR) swab 1 Each once daily. 30 Each 0 losartan (COZAAR) 100 mg tablet take 1 tablet by mouth once daily 90 tablet 3 ergocalciferol 50,000 unit capsule (VITAMIN D2, DRISDOL) Take 1 capsule by mouth two times a week. TO BE TAKEN ORALLY DIRECTED. Take 1 tablet by mouth twice weekly [id number], then decrease to 1 tablet weekly. 24 capsule 1 gabapentin (NEURONTIN) 600 mg tablet Take 1 tablet by mouth twice daily for 180 days. 180 tablet 1 DEXCOM G6 TRANSMITTER ana use as directed AND CHANGE EVERY 90 DAYS DEXCOM G6 SENSOR ana APPLY 1 SENSOR AND CHANGE EVERY 10 DAYS OMNIPOD 5 G6 PODS, GEN 5, crtg USE 1 POD EVERY 48 HOURS naproxen (NAPROSYN) 500 mg tablet Take 1 tablet by mouth twice daily as needed (for pain/inflammation). Take with food. 14 tablet 0 meclizine (ANTIVERT) 25 mg tab TAKE 1 TABLET TWICE A DAY [address] (PROTONIX) 20 mg tablet TAKE 1 TABLET TWICE A DAY 180 tablet 3 atorvastatin (LIPITOR) 80 mg tablet take 1 tablet by mouth once daily 90 tablet 1 diclofenac (VOLTAREN) 1 % topical gel apply 2 grams topically to affected area twice a day 100 g 3 levothyroxine (LEVOXYL) 75 mcg tablet TAKE 1 TABLET ON AN EMPTY STOMACH DAILY BUT TAKE 2 TABLETS ON FRIDAY FOR THYROID 34 tablet 11 insulin glargine (LANTUS SOLOSTAR, BASAGLAR KWIKPEN) 100 unit/mL (3 mL) 50 Units. naproxen (NAPROSYN) 500 mg tablet take 1 tablet by mouth twice a day NEEDED FOR PAIN or inflammation with food 30 tablet 0 albuterol HFA (PROAIR HFA) 90 mcg/actuation inhaler Inhale 2 Puffs as instructed every 4 hours as needed. 1 Inhaler 0 fluticasone (FLONASE) 50 mcg/actuation nasal spray Use 2 Sprays in each nostril once daily. Rinse mouth after use. 1 Each 3 insulin needles, DISPOSABLE, (PEN NEEDLE) 31 gauge x 5/16 1 Each three times daily. 90 Each 3 ondansetron orally disintegrating (ZOFRAN ODT) 4 mg disintegrating tablet Take 1 tablet by mouth every 6 hours as needed for Nausea/Vomiting. 30 tablet 2 flash glucose scanning reader (FREESTYLE SOFI 14 DAY READER) misc Use to check blood sugars 4 times daily. 1 Each 0 flash glucose sensor (FREESTYLE SOFI 14 DAY SENSOR) kit Use to check blood sugars 4 times daily. 6 Kit 2 alcohol swabs padm Apply 1 application (more content not included)... [facility] 04-25-2023 History of Present illness Narrative HISTORY AND PHYSICAL Maryanne Reyesroseraghu 1970 REFERRING PHYSICIAN: Cassius Fletcher APRN.WORKFORCE CONSULTANT CHIEF COMPLAINT: abdominal abscess HPI: Maryanne is a 52 year old female with a complaint of an abdomina abscess X approximately 1 week. Seen at ED previously on 04/14/23. She was treated with IV antibiotics for cellulitis and underwent incision and drainage for abscess collection. She had left hospital AMA. Notes improvement in symptoms since that time, decreased pain and redness. Notes some serous discharge from the abscess. Cultures showed staph. she NOTES a history of diabetes. Has had prior abdominal abscess on opposite side of abdomen which was extensive and required a wound vac. The patient was prescribed oral antibiotics but states was unable to get this filled at pharmacy. States she took a couple of amoxicillin-clavulanic acid tablets that she had at home and felt these were helping. SIGNIFICANT MEDICAL PROBLEMS: PAST MEDICAL HISTORY Diagnosis Date Abnormal Pap smear of cervix 2010 DR DORANTES, REPEAT PAP NL Acquired hypothyroidism 06/08/2019 Acute kidney failure (HCC) 10/2020 Chlamydia 1994 Diabetes mellitus (HCC) Diabetes mellitus complicating , antepartum Essential hypertension 10/29/2021 Fibromyalgia Hyperlipidemia Mental disorder DEPRESSION/ANXIETY Neuropathy Non-healing open wound of toe 04/30/2021 RUBIA (obstructive sleep apnea) [facility] for PAP machine Osteomyelitis (HCC) 06/15/2019 right toe depression Sleep apnea OPERATIONS: PAST SURGICAL HISTORY Procedure Laterality Date AMPUTATION FOOT,TRANSMETATARSAL Right 06/15/2019 2nd toe APPENDECTOMY 2015 [facility] (MISSED AB 1ST TRIMESTER) EXCISION TONSIL LESIONS BILATERAL I & D ABSCESS 04/16/2023 middle abdomen INSJ TUNNELED CVC W/O SUBQ PORT/FRANCHISE CONSULTANT AGE 6 YR/> 11/15/2020 LAPAROSCOPIC TUBAL LIGATION/RING/CLIP 12/2013 PAST SURGICAL HISTORY OF Right 04/02/2019 right great toe amputation CURRENT MEDICATIONS: Current Outpatient Medications Medication Sig Dispense Refill traZODone (DESYREL) 100 mg tablet Sodium Chloride (MESALT) 0.75 X 39 bndg Apply 1 application to affected area once daily. Pack lightly into abdominal wound 2 Each 1 Gauze Bandage 4 X 4 bndg Apply 1 application to affected area once daily. 30 Each 0 Gauze Bandage 1 X 5 -yard bndg Apply 1 application to affected area once daily. 2 Each 1 Non-Adherent Bandage (CURITY ABDOMINAL PAD) 5 X 9 bndg Apply 1 application to affected area once daily. 30 Each 0 Swab (Q-TIPS/SINGLE-TIP APPLICATOR) swab 1 Each once daily. 30 Each 0 losartan (COZAAR) 100 mg tablet take 1 tablet by mouth once daily 90 tablet 3 ergocalciferol 50,000 unit capsule (VITAMIN D2, DRISDOL) Take 1 capsule by mouth two times a week. TO BE TAKEN ORALLY DIRECTED. Take 1 tablet by mouth twice weekly [id number], then decrease to 1 tablet weekly. 24 capsule 1 gabapentin (NEURONTIN) 600 mg tablet Take 1 tablet by mouth twice daily for 180 days. 180 tablet 1 DEXCOM G6 TRANSMITTER ana use as directed AND CHANGE EVERY 90 DAYS DEXCOM G6 SENSOR ana APPLY 1 SENSOR AND CHANGE EVERY 10 DAYS OMNIPOD 5 G6 PODS, GEN 5, crtg USE 1 POD EVERY 48 HOURS naproxen (NAPROSYN) 500 mg tablet Take 1 tablet by mouth twice daily as needed (for pain/inflammation). Take with food. 14 tablet 0 meclizine (ANTIVERT) 25 mg tab TAKE 1 TABLET TWICE A DAY [address] (PROTONIX) 20 mg tablet TAKE 1 TABLET TWICE A DAY 180 tablet 3 atorvastatin (LIPITOR) 80 mg tablet take 1 tablet by mouth once daily 90 tablet 1 diclofenac (VOLTAREN) 1 % topical gel apply 2 grams topically to affected area twice a day 100 g 3 levothyroxine (LEVOXYL) 75 mcg tablet TAKE 1 TABLET ON AN EMPTY STOMACH DAILY BUT TAKE 2 TABLETS ON FRIDAY FOR THYROID 34 tablet 11 insulin glargine (LANTUS SOLOSTAR, BASAGLAR KWIKPEN) 100 unit/mL (3 mL) 50 Units. naproxen (NAPROSYN) 500 mg tablet take 1 tablet by mouth twice a day NEEDED FOR PAIN or inflammation with food 30 tablet 0 albuterol HFA (PROAIR HFA) 90 mcg/actuation inhaler Inhale 2 Puffs as instructed every 4 hours as needed. 1 Inhaler 0 fluticasone (FLONASE) 50 mcg/actuation nasal spray Use 2 Sprays in each nostril once daily. Rinse mouth after use. 1 Each 3 insulin needles, DISPOSABLE, (PEN NEEDLE) 31 gauge x 5/16 1 Each three times daily. 90 Each 3 ondansetron orally disintegrating (ZOFRAN ODT) 4 mg disintegrating tablet Take 1 tablet by mouth every 6 hours as needed for Nausea/Vomiting. 30 tablet 2 flash glucose scanning reader (FREESTYLE SOFI 14 DAY READER) misc Use to check blood sugars 4 times daily. 1 Each 0 flash glucose sensor (FREESTYLE SOFI 14 DAY SENSOR) kit Use to check blood sugars 4 times daily. 6 Kit 2 alcohol swabs padm Apply 1 application to affected area four times daily. 400 Each 2 acetaminophen (TYLENOL) 500 mg tablet Take 1,000 mg by mouth every 4 hours as needed. DULoxetine (CYMBALTA) 60 mg capsule Take 60 mg by mouth once daily. Take 60 mg in the evening, along with 30 mg dose in the morning. OZEMPIC 0.25 mg or 0.5 mg(2 mg/1.5 mL) pen inject 0.5 milligrams subcutaneously every week (Patient not taking: Reported on 11/25/2022) insulin aspart U-100 (NOVOLOG FLEXPEN U-100 INSULIN) 100 unit/mL (3 mL) Inject insulin three times daily at first bite of food. Take 15 units with each meal 5 Pen 3 insulin aspart (NOVOLOG PENFILL U-100 INSULIN SUBCUTANEOUS) Inject 10-20 Units subcutaneously w MEALS. Sliding scale No current facility-administered medications for this visit. ALLERGIES: Azithromycin, Clindamycin, Emycin [Erythromycin], and Vancomycin PERSONAL HISTORY: Social History Tobacco Use Smoking status: Every Day Packs/day: 0.50 Years: 25.00 Total pack years: 12.50 Types: Cigarettes Smokeless tobacco: Never Vaping Use Vaping Use: Never used Substance Use Topics Alcohol use: No Drug use: No FAMILY HISTORY: FAMILY HISTORY Problem Relation Age of Onset Thyroid Mother Asthma Father Heart Maternal Grandmother Cancer Maternal Grandfather prostate Diabetes Maternal Aunt Diabetes Maternal Uncle Diabetes Other REVIEW OF SYMPTOMS: negative except as noted above PHYSICAL EXAMINATION: General: The patient is 52 year old female, well nourished, well hydrated in no acute distress. The patient is oriented to time, place, and person. VITALS: Blood pressure 136/88, pulse 84, temperature 36.2 C (97.2 F), height 162.6 cm (5' 4 ), weight 118.8 kg (261 lb 12.8 oz), last menstrual period 09/17/2019, SpO2 95 %. Body mass index is 44.94 kg/m . HEENT: exam deferred Extremities: no clubbing, cyanosis or edema. No adenopathy. Other: right lower abdomen +open wound with 2.5 cm area of yellow and black eschar. Minimal surrounding erythema, no cellulitis or warmth noted LABORATORY VALUES: As Noted RADIOLOGIC STUDIES: As Noted PROCEDURE: debridement of necrotic tissue from abdominal skin abscess After consent was obtained and the site, person, and procedure verified, the patient`s skin was prepped and draped in the usual fashion. A combination of Lidocaine and Marcaine was injected into the skin. Necrotic material was sharply debrided from the wound. The cavity was packed with plain gauze. The patient tolerated the procedure well. Assessment IMPRESSION: STATUS POST debridement of necrotic tissue from abdominal skin abscess PLAN: Maryanne is instructed to remove packing tomorrow and begin packing changes 1-2 times daily. If the dressing becomes soaked or had significant drainage, the dressing should be changed. If there is minor bleeding from this skin edge, the patient should hold pressure on the incision. If there is continued bleeding, the patient should contact our office immediately. The patient should wash the wound with gentle soap and water. she may shower. The wound should not be immersed in a pool, bathtub, or even hot tub. Diagnoses: (S31.109A) Open wound of abdomen, initial encounter (primary encounter diagnosis) (L02.211) Abscess of skin of abdomen Return to Clinic: The patient is instructed to follow-up with me in 7-10 days. The patient verbalized understanding of all above and agreed with the plan Keke Dalton PA-C UNIVERSAL PROTOCOL / SAFETY CHECKLIST Procedure to be Performed: Debridement of abdominal wound Sign In: A Moment of CARE was completed. Personnel directly involved with the procedure wore the appropriate PPE (Personal Protective Equipment). No special equipment needed. Patient/Surrogate Stated/Verified: PATIENT VERIFIED(optional for EMERGENT procedures): Patient name, Date of , Relevant allergies, and The intended procedure Time Out Communication: Intended patient and procedure match the source documents. Consent documented and matches the intended procedure. Relevant labs, photos, and/or imaging studies have been reviewed. Correct side/site marked and visible. Medications required for procedure verified. No fire risk assessment and interventions applicable. No implant(s) inserted. Sign Out: SIGN OUT (optional for EMERGENT procedures): No specimen collected. All instruments, equipment, possible retained foreign bodies accounted for. Post-procedure follow-up management communicated and Plan of Care Visit completed when applicable. Marylou Barry RN documented in this encounter [facility] 04-17-2023 Note HNO ID: [id number] Author: Marylou Barry RN Service: ? Author Type: Registered Nurse Type: Progress Notes Filed: 04/17/2023 10:26 AM Note Text: UNIVERSAL PROTOCOL / SAFETY CHECKLIST Procedure to be Performed: Debridement of abdominal wound Sign In: A Moment of CARE was completed. Personnel directly involved with the procedure wore the appropriate PPE (Personal Protective Equipment). No special equipment needed. Patient/Surrogate Stated/Verified: PATIENT VERIFIED(optional for EMERGENT procedures): Patient name, Date of , Relevant allergies, and The intended procedure Time Out Communication: Intended patient and procedure match the source documents. Consent documented and matches the intended procedure. Relevant labs, photos, and/or imaging studies have been reviewed. Correct side/site marked and visible. Medications required for procedure verified. No fire risk assessment and interventions applicable. No implant(s) inserted. Sign Out: SIGN OUT (optional for EMERGENT procedures): No specimen collected. All instruments, equipment, possible retained foreign bodies accounted for. Post-procedure follow-up management communicated and Plan of Care Visit completed when applicable. Marylou Barry RN [facility] 04-17-2023 Instructions Keke Dalton PA-C - 04/17/2023 10:21 AM EDT The following instructions are important for you related to your office visit today with the [facility] General Surgeons. Instructions After I & D You are instructed to change the packing twice daily. If the dressing becomes soaked or had significant drainage, the dressing should be changed. If there is minor bleeding from this skin edge, you should hold pressure on the incision. If there is continued bleeding, you should contact our office immediately. Wash the wound with gentle antibacterial soap and water. You may shower. The wound should not be immersed in a pool, bathtub, or even hot tub. If the wound shows signs of redness, inflammation, or purulent drainage, you should contact our office immediately. Keep follow-up with wound care center If you note any additional difficulties, questions, or concerns, you should contact our office immediately @ [phone] and ask to be transferred to the General Surgery department. documented in this encounter [facility] 04-17-2023 Nurse Note REVIEW OF SYSTEMS: General: The patient denies fatigue, denies weight loss, NOTES weight gain, denies feeling hot, and denies feelings of cold. Eyes: The patient denies glaucoma, denies eye injury/surgery, does not wear glasses or contacts. Ear/Nose/Throat: The patient NOTES allergies, denies hayfever, denies ear infections, and denies bloody noses. Cardiovascular: The patient denies chest pain, denies heart disease, NOTES high blood pressure,denies cardiac stent, denies prior heart attack, denies irregular heart beat, NOTES high cholesterol, denies poor circulation, denies heart failure, other cardiac issues, denies claudication, denies cold feet, denies peripheral arterial stent. Respiratory: The patient denies tuberculosis, denies pneumonia, denies frequent cough, denies pulmonary embolism, denies shortness of breath, and denies coughing up blood. Gastrointestinal: The patient denies difficulty swallowing, NOTES acid reflux, denies ulcers, denies vomiting, denies jaundice/hepatitis, denies gallbladder problems, denies black or tarry stools, denies hemorrhoids, denies bleeding from rectum, denies diverticulitis, denies constipation, denies diarrhea, denies loss of stool control, and denies hernias. Kidney/Bladder: The patient denies kidney stones, denies urine infections, and denies bloody urine. Skin: The patient denies a history of skin cancer, denies bleeding/changing moles, and denies a history of skin rash. Neurologic: The patient denies a history of epilepsy/convulsions, denies headaches, denies head/spinal injuries, and denies stroke/TIA. Psychiatric: The patient denies psychiatric medications, denies depression, and denies voices, denies substance abuse. Endocrine: The patient denies thyroid disorders, NOTES diabetes, and denies hormonal problems. Hematologic: The patient denies a history of bruising, denies bleeding, and denies anemia, denies blood clots. Infections: The patient denies a history of measles and mumps, denies rheumatic fever, and denies sexually transmitted diseases. Musculoskeletal: The patient denies back pain/injury, denies back problems, denies sciatica, denies knee/foot trouble, denies arthritis, or denies gout. When was patient's last Mammogram screening? 2020 Last Colonoscopy: none Marylou Barry, CHUCK documented in this encounter [facility] 04-15-2023 Note HNO ID: [id number] Author: Cassius Fletcher APRN.WORKFORCE CONSULTANT Service: ? Author Type: Nurse Specialist Type: Progress Notes Filed: 04/15/2023 2:50 PM Note Text: SUBJECTIVE: COVID-19 VACCINE(1) Never done DTAP,TDAP,TD(1 - Tdap) Never done PNEUMOCOCCAL(2 - PCV) due on 06/14/2015 COLORECTAL CANCER SCREENING Never done HEPATITIS B(2 of 3 - 19+ 3-dose series) due on 01/02/2021 SHINGRIX VACCINE(1 of 2) Never done BP CONTROLLED (<130/80) due on 04/30/2022 HBA1C due on 07/23/2022 URINE ALBUMIN:CREATININE RATIO due on 07/31/2022 MAMMOGRAM due on 10/17/2022 LDL CHOLESTEROL due on 01/21/2023 HPI Maryanne Minaya is a 52 year old female. 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 Notes indicate that she had a prior history of left-sided abdominal wound that needed a surgical incision and drainage and hospitalization for IV antibiotics. She reports developing another wound on the right side present for 4 days prior to arrival. Reported it has been draining small amount of blood and pus but was scabbed over in the ER. Reports she took some amoxicillin she had at home but then she ran out. She reported chills and fever at home with temperature of 102 Fahrenheit at the highest. Reported no nausea or vomiting. Reported blood sugars have been running higher with the infection. Past medical history significant for diabetes with insulin pump. Exam revealed circular bruising on the right abdominal wall consistent with abscess. No surrounding cellulitis. Some fluctuance was present. No abdominal wall crepitus. Located in right lower quadrant. No discharge. She was treated with IV Unasyn in the ER. CT abdomen was ordered to better characterize the wound and extent of the abdominal wall infection. Incision and drainage was completed in ER with 3 cc of purulent drainage removed aerobic and anaerobic cultures were obtained. Packed with plain gauze. CT showed mild subcutaneous soft tissue thickening in the right lower pannus measuring 2.5 cm not seen on prior study. The previously visualized abscess in the left lower pannus had improved in appearance with some minimal residual soft tissue thickening. Prominent left adnexa noted. Pelvic ultrasound endorsed. Impression was abdominal wall abscess. WBC elevated in ER. Hospitalist note noted 6 inches of erythema surrounding area of IANDD. 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 Treated with IV doxycycline, if no improvement noted recommended IV daptomycin. Cultures were pending results. Surrounding erythema thought to be a component of staph so Unasyn was continued. Wound care consult was placed. No discharge summary completed. She reports leaving AMA due to floor staff rudeness when she asked about medication. HHC: no Wound dressing: has not yet changed this Drainage:serosanguinous Fever:none reported Wound center appointment: no Antibiotics: no Topical treatment:no She reports previously caring for wounds at home, thinks she can do dressing change. Review of Systems Constitutional: Negative. Skin: Positive for wound. Objective BP 140/80 Pulse 60 Resp 16 Wt 117.9 kg (260 lb) LMP 09/17/2019 BMI 44.63 kg/m? Physical Exam Vitals and nursing note reviewed. Constitutional: General: She is not in acute distress. Appearance: Normal appearance. She is not ill-appearing. HENT: Head: Normocephalic and atraumatic. Eyes: Conjunctiva/sclera: Conjunctivae normal. Cardiovascular: Rate and Rhythm: Normal rate. Pulmonary: Effort: Pulmonary effort is normal. Skin: General: Skin is warm and dry. Comments: Right lower quadrant abdominal wound approximately 1 inch in diameter and 1 inch in depth with necrotic slough at edges, surrounding erythema of about 6 inches, red wound base visible portion, serosanguineous drainage saturating about a 6 inch piece of packing tape. Covered with gauze and ABD. Neurological: Mental Status: She is alert. ALLERGIES Allergen Reactions Azithromycin Rash Clindamycin Rash Emycin [Erythromyci* Rash Vancomycin Rash traZODone (DESYREL) 100 mg tablet losartan (COZAAR) 100 mg tablet take 1 tablet by mouth once daily ergocalciferol 50,000 unit capsule (VITAMIN D2, DRISDOL) Take 1 capsule (more content not included)... [facility] 04-15-2023 Instructions Cassius Fletcher, ZHANNA.WORKFORCE CONSULTANT - 04/15/2023 2:32 PM EDT Keep area clean and dry Change dressing daily Lightly pack wound tape or Mesalt into the open wound using a Q-tip. Cover with gauze and ABD pad and secure with tape. documented in this encounter [facility] 04-15-2023 History of Present illness Narrative Images from the original note were not included. SUBJECTIVE: COVID-19 VACCINE(1) Never done DTAP,TDAP,TD(1 - Tdap) Never done PNEUMOCOCCAL(2 - PCV) due on 06/14/2015 COLORECTAL CANCER SCREENING Never done HEPATITIS B(2 of 3 - 19+ 3-dose series) due on 01/02/2021 SHINGRIX VACCINE(1 of 2) Never done BP CONTROLLED (<130/80) due on 04/30/2022 HBA1C due on 07/23/2022 URINE ALBUMIN:CREATININE RATIO due on 07/31/2022 MAMMOGRAM due on 10/17/2022 LDL CHOLESTEROL due on 01/21/2023 HPI Maryanne Minaya is a 52 year old female. 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 Notes indicate that she had a prior history of left-sided abdominal wound that needed a surgical incision and drainage and hospitalization for IV antibiotics. She reports developing another wound on the right side present for 4 days prior to arrival. Reported it has been draining small amount of blood and pus but was scabbed over in the ER. Reports she took some amoxicillin she had at home but then she ran out. She reported chills and fever at home with temperature of 102 Fahrenheit at the highest. Reported no nausea or vomiting. Reported blood sugars have been running higher with the infection. Past medical history significant for diabetes with insulin pump. Exam revealed circular bruising on the right abdominal wall consistent with abscess. No surrounding cellulitis. Some fluctuance was present. No abdominal wall crepitus. Located in right lower quadrant. No discharge. She was treated with IV Unasyn in the ER. CT abdomen was ordered to better characterize the wound and extent of the abdominal wall infection. Incision and drainage was completed in ER with 3 cc of purulent drainage removed aerobic and anaerobic cultures were obtained. Packed with plain gauze. CT showed mild subcutaneous soft tissue thickening in the right lower pannus measuring 2.5 cm not seen on prior study. The previously visualized abscess in the left lower pannus had improved in appearance with some minimal residual soft tissue thickening. Prominent left adnexa noted. Pelvic ultrasound endorsed. Impression was abdominal wall abscess. WBC elevated in ER. Hospitalist note noted 6 inches of erythema surrounding area of I&D. 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 Treated with IV doxycycline, if no improvement noted recommended IV daptomycin. Cultures were pending results. Surrounding erythema thought to be a component of staph so Unasyn was continued. Wound care consult was placed. No discharge summary completed. She reports leaving AMA due to floor staff rudeness when she asked about medication. HHC: no Wound dressing: has not yet changed this Drainage:serosanguinous Fever:none reported Wound center appointment: no Antibiotics: no Topical treatment:no She reports previously caring for wounds at home, thinks she can do dressing change. Review of Systems Constitutional: Negative. Skin: Positive for wound. Objective BP 140/80 Pulse 60 Resp 16 Wt 117.9 kg (260 lb) LMP 09/17/2019 BMI 44.63 kg/m Physical Exam Vitals and nursing note reviewed. Constitutional: General: She is not in acute distress. Appearance: Normal appearance. She is not ill-appearing. HENT: Head: Normocephalic and atraumatic. Eyes: Conjunctiva/sclera: Conjunctivae normal. Cardiovascular: Rate and Rhythm: Normal rate. Pulmonary: Effort: Pulmonary effort is normal. Skin: General: Skin is warm and dry. Comments: Right lower quadrant abdominal wound approximately 1 inch in diameter and 1 inch in depth with necrotic slough at edges, surrounding erythema of about 6 inches, red wound base visible portion, serosanguineous drainage saturating about a 6 inch piece of packing tape. Covered with gauze and ABD. Neurological: Mental Status: She is alert. ALLERGIES Allergen Reactions Azithromycin Rash Clindamycin Rash Emycin [Erythromyci* Rash Vancomycin Rash traZODone (DESYREL) 100 mg tablet losartan (COZAAR) 100 mg tablet take 1 tablet by mouth once daily ergocalciferol 50,000 unit capsule (VITAMIN D2, DRISDOL) Take 1 capsule by mouth two times a week. TO BE TAKEN ORALLY DIRECTED. Take 1 tablet by mouth twice weekly [id number], then decrease to 1 tablet weekly. gabapentin (NEURONTIN) 600 mg tablet Take 1 tablet by mouth twice daily for 180 days. DEXCOM G6 TRANSMITTER ana use as directed AND CHANGE EVERY 90 DAYS DEXCOM G6 SENSOR ana APPLY 1 SENSOR AND CHANGE EVERY 10 DAYS OMNIPOD 5 G6 PODS, GEN 5, crtg USE 1 POD EVERY 48 HOURS meclizine (ANTIVERT) 25 mg tab TAKE 1 TABLET TWICE A DAY pantoprazole DR (PROTONIX) 20 mg tablet TAKE 1 TABLET TWICE A DAY atorvastatin (LIPITOR) 80 mg tablet take 1 tablet by mouth once daily diclofenac (VOLTAREN) 1 % topical gel apply 2 grams topically to affected area twice a day levothyroxine (LEVOXYL) 75 mcg tablet TAKE 1 TABLET ON AN EMPTY STOMACH DAILY BUT TAKE 2 TABLETS ON FRIDAY FOR THYROID naproxen (NAPROSYN) 500 mg tablet take 1 tablet by mouth twice a day NEEDED FOR PAIN or inflammation with food albuterol HFA (PROAIR HFA) 90 mcg/actuation inhaler Inhale 2 Puffs as instructed every 4 hours as needed. fluticasone (FLONASE) 50 mcg/actuation nasal spray Use 2 Sprays in each nostril once daily. Rinse mouth after use. ondansetron orally disintegrating (ZOFRAN ODT) 4 mg disintegrating tablet Take 1 tablet by mouth every 6 hours as needed for Nausea/Vomiting. flash glucose scanning reader ([employer] SOFI 14 DAY READER) [facility] to check blood sugars 4 times daily. alcohol swabs padm Apply 1 application to affected area four times daily. acetaminophen (TYLENOL) 500 mg tablet Take 1,000 mg by mouth every 4 hours as needed. DULoxetine (CYMBALTA) 60 mg capsule Take 60 mg by mouth once daily. Take 60 mg in the evening, along with 30 mg dose in the morning. Sodium Chloride (MESALT) 0.75 X 39 bndg Apply 1 application to affected area once daily. Pack lightly into abdominal wound Gauze Bandage 4 X 4 bndg Apply 1 application to affected area once daily. Gauze Bandage 1 X 5 -yard bndg Apply 1 application to affected area once daily. Non-Adherent Bandage (CURITY ABDOMINAL PAD) 5 X 9 bndg Apply 1 application to affected area once daily. sulfamethoxazole-trimethoprim (BACTRIM DS) 800-160 mg per tablet Take 1 tablet by mouth twice daily for 10 days. Swab (Q-TIPS/SINGLE-TIP APPLICATOR) swab 1 Each once daily. naproxen (NAPROSYN) 500 mg tablet Take 1 tablet by mouth twice daily as needed (for pain/inflammation). Take with food. (Patient not taking: Reported on 03/20/2023) insulin glargine (LANTUS SOLOSTAR, BASAGLAR KWIKPEN) 100 unit/mL (3 mL) 50 Units. (Patient not taking: Reported on 02/20/2023) OZEMPIC 0.25 mg or 0.5 mg(2 mg/1.5 mL) pen inject 0.5 milligrams subcutaneously every week (Patient not taking: Reported on 11/25/2022) insulin aspart U-100 (NOVOLOG FLEXPEN U-100 INSULIN) 100 unit/mL (3 mL) Inject insulin three times daily at first bite of food. Take 15 units with each meal insulin needles, DISPOSABLE, (PEN NEEDLE) 31 gauge x 5/16 1 Each three times daily. (Patient not taking: Reported on 02/20/2023) flash glucose sensor (FREESTYLE SOFI 14 DAY SENSOR) kit Use to check blood sugars 4 times daily. (Patient not taking: Reported on 02/20/2023) biotin 1 mg cap Take 1 capsule by mouth once daily. (Patient not taking: Reported on 03/20/2023) insulin aspart (NOVOLOG PENFILL U-100 INSULIN SUBCUTANEOUS) Inject 10-20 Units subcutaneously w MEALS. Sliding scale PAST MEDICAL HISTORY Diagnosis Date Abnormal Pap smear of cervix 2010 DR DORANTES, REPEAT PAP NL Acquired hypothyroidism 06/08/2019 Acute kidney failure (HCC) 10/2020 Chlamydia 1995 Diabetes mellitus (HCC) Diabetes mellitus complicating , antepartum Essential hypertension 10/29/2021 Fibromyalgia Hyperlipidemia Mental disorder DEPRESSION/ANXIETY Neuropathy Non-healing open wound of toe 04/30/2021 RUBIA (obstructive sleep apnea) DME DASCO for PAP machine Osteomyelitis ([facility]) 06/15/2019 right toe depression Sleep apnea Social History Tobacco Use Smoking status: Every Day Packs/day: 0.50 Years: 25.00 Total pack years: 12.50 Types: Cigarettes Smokeless tobacco: Never Vaping Use Vaping Use: Never used Substance Use Topics Alcohol use: No Drug use: No Hemoglobin A1C (%) Date Value 01/21/2022 7.7 11/13/2021 8.5 Creatinine Date Value Ref Range Status 01/21/2022 0.67 0.58 - 0.96 mg/dL Final 11/13/2021 0.72 0.58 - 0.96 mg/dL Final 07/31/2021 0.52 (L) 0.58 - 0.96 mg/dL Final 04/19/2020 0.50 (L) 0.58 - 0.96 mg/dL Final ASSESSMENT/PLAN: 1. Abscess of skin of abdomen - ICD9: 682.2, ICD10: L02.211 Left hospital AMA. Wound culture results still pending. Prior history of MRSA. Wound redressed in office. Light packing, covered with gauze dressing/ABD. We will start with Bactrim BID x 10 days until culture results are back She needs to be seen or Friday either by [place], general surgery or wound center. Go back to the hospital for any severe or concerning symptoms. - MESALT 0.75 X 39 BANDAGE or - GAUZE BANDAGE 1 X 5 YARD - GAUZE BANDAGE 4 X 4 - CURITY ABDOMINAL PAD 5 X 9 BANDAGE - SULFAMETHOXAZOLE 800 MG-TRIMETHOPRIM 160 MG TABLET - CONSULT TO GENERAL SURGERY - CONSULT TO WOUND [facility]ALING CENTERV[facility] Advised: Keep area clean and dry Change dressing daily Lightly pack wound tape or Mesalt into the open wound using a Q-tip. Cover with gauze and ABD pad and secure with tape. Cassius Fletcher APRN.WORKFORCE CONSULTANT Medical Decision Making: Problems: Moderate: Acute illness with systemic symptoms Data: Unique source(s) for external note(s) reviewed: 1 Risk: Moderate: Drug management Medical Decision Making Level: 4 - Moderate , documented in this encounter [facility] 04-14-2023 Note HNO ID: [id number] Author: Tammy Zhou PA-C Service: ? Author Type: Physician Organ Grinder Type: Progress Notes Filed: 04/14/2023 9:36 AM Note Text: Tammy Zhou PA-C Department of Orthopaedics [facility] [address] [facility] [address] Dept: [phone] Dept April 14, [address] Starr Garcia for an opinion regarding right elbow pain. My final recommendations will be communicated back to the requesting physician by way of shared Medical record or letter to requesting physician via [place] mail. CHIEF COMPLAINT: Established Patient and Pain of the Right Elbow Ms. Maryanne Minaya is a 52 year old female who presents with pain in her right elbow after multiple injuries. Patient states that few weeks ago she struck the outside of her elbow on her refrigerator. Few days later she struck her elbow in the same way on a friend's refrigerator. She complains of 5 out of 10 aching pain on the lateral aspect of her elbow. She has swelling in that area. She is not taking any type of an oral anti-inflammatory, she reports having kidney damage after being given an IV antibiotic. Patient is a diabetic. She is leaving on vacation in a week. She also tells me that she has a large wound on her abdomen which is concerning, she has been thinking about going to the emergency room for evaluation. She is taking an antibiotic for the wound which she had leftover. ASSESSMENT: M77.11 Lateral epicondylitis of right elbow (primary encounter diagnosis) S59.901A Injury of right elbow, initial encounter PLAN: Patient has lateral epicondylitis. We discussed trying some topical Voltaren up to 4 times a day as well as icing and some gentle stretching. She is also provided with a modabber brace to restrict motion at the wrist. We discussed trying a corticosteroid injection if pain persist despite the topical Voltaren. Patient was advised that she should be seen in the emergency room to have the abdominal wound evaluated. Ms. Maryanne Minaya was advised as to contrast therapies and/or to take analgesics/anti-inflammatories as needed and all contraindications were reviewed. OBJECTIVE: Ms. Maryanne Minaya is a pleasant 52 year old in no apparent distress. Gen:Wt 248 lb (112.5kg) LMP 09/17/2019 nl development, obese, no deformities ENT: Normocephalic, normal hearing, moist mucosa CV: Pulses:Radial= 2+ and symmetric, capillary refill < 2 secs, no peripheral edema/varicosities Skin: no rash, bruising or lesions. Good turgor. Psych: cooperative and appropriate, alert and oriented x 3, good mood and affect. Musculoskeletal: right Elbow: - There is swelling about the elbow - There is tenderness over the lateral epicondyle - There is not tenderness over the medial epicondyle - There is not tenderness over the olecranon - There is not tenderness over the triceps insertion - There is not tenderness over the radial head - There is pain with resisted finger extension only - Tinels sign over the ulnar nerve is negative - Sensation in the hand is normal - The distal biceps tendon is is not tender - Extension is to 0 degrees - Extension is non-painful - Flexion is to 150 - Flexion is non-painful - Pronation is to 160 - Pronation is non-painful - Supination is to 160 - Supination is non-painful - Bicep strength is 5/5 - Tricep strength is 5/5 - Cervical ROM does not produce elbow pain - Shoulder ROM does not produce elbow pain - Distal pulses present Imaging: IMPRESSION: NO ACUTE BONY ABNORMALITY. NO JOINT EFFUSION. Packerhead Machine Operator: PSCB Transcribe Date/Time: Mar 25 2023 3:07P Dictated by : ALLISON NEFF MD This examination was interpreted and the report reviewed and electronically signed by: ALLISON NEFF MD on Mar 25 2023 3:09PM EST Results-Findings * * *Final Report* * * DATE OF EXAM: Mar 20 2023 12:14PM WOX [id number] - XR ELBOW 3V AP/LAT/OTHER RT / PROCEDURE REASON: Injury of right elbow, initial encounter * * * * Physician Interpretation * * * * HISTORY: 52-YEAR-OLD FEMALE WITH Injury of right elbow, initial encounter . Posterior and radial sided right elbow pain after hitting it against a refridgerator mulitple times over the last 3 weeks TECHNIQUE: XR ELBOW 3V AP/LAT/OTHER RT Laterality: RIGHT Number of different views (projections): 3 COMPARISON: 02/20/2023 RESULT: Right elbow: No acute bony abnormality. No fracture. No erosions. No joint effusion. Supporting Subjective Information Below: Past Surgical History: PAST SURGICAL HISTORY Procedure Laterality Date AMPUTATION FOOT,TRANSMETATARSAL Right 06/15/2019 2nd toe APPENDECTOMY 2014 DANVA (MISSED AB 1ST TRIMESTER) EXCISION TONSIL LESIONS BILATERAL INSJ TUNNELED CVC W/O SUBQ PORT/FRANCHISE CONSULTANT AGE 6 YR/> 11/15/2020 LAPAROSCOPIC TUBAL LIGATION/RING/CLIP 12/2013 PAST SURGICAL HISTORY OF Right 04/02/2019 right great t (more content not included)... [facility] 04-14-2023 Note HNO ID: [id number] Author: Cheyenne Fonseca RN Service: ? Author Type: Registered Nurse Type: Progress Notes Filed: 04/14/2023 9:36 AM Note Text: Patient presents with: Right Elbow - Established Patient, Pain AMB ROOMING INTAKE FLOWSHEET DATA Pain Pain Level: 5 Pain Location: Elbow-Right Description: Aching Duration Amount of Time: 1 Duration Units: Months Frequency: Continuous Intervention/Comfort measure: Medication Pt states bumping her right elbow twice on hers and her friend's refrigerator about a month ago. Prior to this, pt states she had the start of tennis elbow. Pt states naproxen and tylenol have been helping, but worries about damaging her kidneys. [facility] 04-14-2023 History of Present illness Narrative Tammy Zhou PA-C Department of Orthopaedics Orthopaedics [address] [facility] [address] Dept: [phone] Dept April 14, [address] Starr Garcia for an opinion regarding right elbow pain. My final recommendations will be communicated back to the requesting physician by way of shared Medical record or letter to requesting physician via [place] mail. CHIEF COMPLAINT: Established Patient and Pain of the Right Elbow Ms. Maryanne Minaya is a 52 year old female who presents with pain in her right elbow after multiple injuries. Patient states that few weeks ago she struck the outside of her elbow on her refrigerator. Few days later she struck her elbow in the same way on a friend's refrigerator. She complains of 5 out of 10 aching pain on the lateral aspect of her elbow. She has swelling in that area. She is not taking any type of an oral anti-inflammatory, she reports having kidney damage after being given an IV antibiotic. Patient is a diabetic. She is leaving on vacation in a week. She also tells me that she has a large wound on her abdomen which is concerning, she has been thinking about going to the emergency room for evaluation. She is taking an antibiotic for the wound which she had leftover. ASSESSMENT: M77.11 Lateral epicondylitis of right elbow (primary encounter diagnosis) S59.901A Injury of right elbow, initial encounter PLAN: Patient has lateral epicondylitis. We discussed trying some topical Voltaren up to 4 times a day as well as icing and some gentle stretching. She is also provided with a modabber brace to restrict motion at the wrist. We discussed trying a corticosteroid injection if pain persist despite the topical Voltaren. Patient was advised that she should be seen in the emergency room to have the abdominal wound evaluated. Ms. Maryanne Mniaya was advised as to contrast therapies and/or to take analgesics/anti-inflammatories as needed and all contraindications were reviewed. OBJECTIVE: Ms. Maryanne Minaya is a pleasant 52 year old in no apparent distress. Gen:Wt 248 lb (112.5kg) LMP 09/17/2019 nl development, obese, no deformities ENT: Normocephalic, normal hearing, moist mucosa CV: Pulses:Radial= 2+ and symmetric, capillary refill < 2 secs, no peripheral edema/varicosities Skin: no rash, bruising or lesions. Good turgor. Psych: cooperative and appropriate, alert and oriented x 3, good mood and affect. Musculoskeletal: right Elbow: - There is swelling about the elbow - There is tenderness over the lateral epicondyle - There is not tenderness over the medial epicondyle - There is not tenderness over the olecranon - There is not tenderness over the triceps insertion - There is not tenderness over the radial head - There is pain with resisted finger extension only - Tinels sign over the ulnar nerve is negative - Sensation in the hand is normal - The distal biceps tendon is is not tender - Extension is to 0 degrees - Extension is non-painful - Flexion is to 150 - Flexion is non-painful - Pronation is to 160 - Pronation is non-painful - Supination is to 160 - Supination is non-painful - Bicep strength is 5/5 - Tricep strength is 5/5 - Cervical ROM does not produce elbow pain - Shoulder ROM does not produce elbow pain - Distal pulses present Imaging: IMPRESSION: NO ACUTE BONY ABNORMALITY. NO JOINT EFFUSION. Packerhead Machine Operator: PSCB Transcribe Date/Time: Mar 25 2023 3:07P Dictated by : ALLISON NEFF MD This examination was interpreted and the report reviewed and electronically signed by: ALLISON NEFF MD on Mar 25 2023 3:09PM EST Results-Findings * * *Final Report* * * DATE OF EXAM: Mar 20 2023 12:14PM WOX [id number] - XR ELBOW 3V AP/LAT/OTHER RT / PROCEDURE REASON: Injury of right elbow, initial encounter * * * * Physician Interpretation * * * * HISTORY: 52-YEAR-OLD FEMALE WITH Injury of right elbow, initial encounter . Posterior and radial sided right elbow pain after hitting it against a refridgerator mulitple times over the last 3 weeks TECHNIQUE: XR ELBOW 3V AP/LAT/OTHER RT Laterality: RIGHT Number of different views (projections): 3 COMPARISON: 02/20/2023 RESULT: Right elbow: No acute bony abnormality. No fracture. No erosions. No joint effusion. Supporting Subjective Information Below: Past Surgical History: PAST SURGICAL HISTORY Procedure Laterality Date AMPUTATION FOOT,TRANSMETATARSAL Right 06/15/2019 2nd toe APPENDECTOMY 2015 [facility] (MISSED AB 1ST TRIMESTER) EXCISION TONSIL LESIONS BILATERAL INSJ TUNNELED CVC W/O SUBQ PORT/FRANCHISE CONSULTANT AGE 6 YR/> 11/15/2020 LAPAROSCOPIC TUBAL LIGATION/RING/CLIP 12/2013 PAST SURGICAL HISTORY OF Right 04/02/2019 right great toe amputation Medications: Current Outpatient Medications Medication Sig losartan (COZAAR) 100 mg tablet take 1 tablet by mouth once daily ergocalciferol 50,000 unit capsule (VITAMIN D2, DRISDOL) Take 1 capsule by mouth two times a week. TO BE TAKEN ORALLY DIRECTED. Take 1 tablet by mouth twice weekly [id number], then decrease to 1 tablet weekly. gabapentin (NEURONTIN) 600 mg tablet Take 1 tablet by mouth twice daily for 180 days. DEXCOM G6 TRANSMITTER ana use as directed AND CHANGE EVERY 90 DAYS DEXCOM G6 SENSOR ana APPLY 1 SENSOR AND CHANGE EVERY 10 DAYS OMNIPOD 5 G6 PODS, GEN 5, crtg USE 1 POD EVERY 48 HOURS meclizine (ANTIVERT) 25 mg tab TAKE 1 TABLET TWICE A DAY pantoprazole DR (PROTONIX) 20 mg tablet TAKE 1 TABLET TWICE A DAY atorvastatin (LIPITOR) 80 mg tablet take 1 tablet by mouth once daily diclofenac (VOLTAREN) 1 % topical gel apply 2 grams topically to affected area twice a day levothyroxine (LEVOXYL) 75 mcg tablet TAKE 1 TABLET ON AN EMPTY STOMACH DAILY BUT TAKE 2 TABLETS ON FRIDAY FOR THYROID naproxen (NAPROSYN) 500 mg tablet take 1 tablet by mouth twice a day NEEDED FOR PAIN or inflammation with food albuterol HFA (PROAIR HFA) 90 mcg/actuation inhaler Inhale 2 Puffs as instructed every 4 hours as needed. fluticasone (FLONASE) 50 mcg/actuation nasal spray Use 2 Sprays in each nostril once daily. Rinse mouth after use. ondansetron orally disintegrating (ZOFRAN ODT) 4 mg disintegrating tablet Take 1 tablet by mouth every 6 hours as needed for Nausea/Vomiting. flash glucose scanning reader (FREESTYLE SOFI 14 DAY READER) [facility] [place] to check blood sugars 4 times daily. alcohol swabs padm Apply 1 application to affected area four times daily. acetaminophen (TYLENOL) 500 mg tablet Take 1,000 mg by mouth every 4 hours as needed. DULoxetine (CYMBALTA) 60 mg capsule Take 60 mg by mouth once daily. Take 60 mg in the evening, along with 30 mg dose in the morning. naproxen (NAPROSYN) 500 mg tablet Take 1 tablet by mouth twice daily as needed (for pain/inflammation). Take with food. (Patient not taking: Reported on 03/20/2023) insulin glargine (LANTUS SOLOSTAR, BASAGLAR MUARAIKPEN) 100 unit/mL (3 mL) 50 Units. (Patient not taking: No sig reported) OZEMPIC 0.25 mg or 0.5 mg(2 mg/1.5 mL) pen inject 0.5 milligrams subcutaneously every week (Patient not taking: Reported on 11/25/2022) insulin aspart U-100 (NOVOLOG FLEXPEN U-100 INSULIN) 100 unit/mL (3 mL) Inject insulin three times daily at first bite of food. Take 15 units with each meal insulin needles, DISPOSABLE, (PEN NEEDLE) 31 gauge x 5/16 1 Each three times daily. (Patient not taking: No sig reported) flash glucose sensor (FREESTYLE SOFI 14 DAY SENSOR) kit Use to check blood sugars 4 times daily. (Patient not taking: Reported on 02/20/2023) biotin 1 mg cap Take 1 capsule by mouth once daily. (Patient not taking: Reported on 03/20/2023) insulin aspart (NOVOLOG PENFILL U-100 INSULIN SUBCUTANEOUS) Inject 10-20 Units subcutaneously w MEALS. Sliding scale No current facility-administered medications for this visit. Allergies: Azithromycin, Clindamycin, Emycin [Erythromycin], and Vancomycin ROS: General (negative for fatigue, malaise, weight loss/gain) HEENT (negative for headache, earache, recent vision changes, sinus pain, sore throat) Respiratory (no recent shortness of breath, hemoptysis) CV (negative for chest tightness, palpitations) Musculoskeletal (see HPI) Psych (no depression, anxiety) This note was partially generated using [employer] voice recognition system, and there may be some incorrect words, spellings, and punctuation that were not noted in checking the note before saving. Tammy Zhou PA-C Patient presents with: Right Elbow - Established Patient, Pain AMB ROOMING INTAKE FLOWSHEET DATA Pain Pain Level: 5 Pain Location: Elbow-Right Description: Aching Duration Amount of Time: 1 Duration Units: Months Frequency: Continuous Intervention/Comfort measure: Medication Pt states bumping her right elbow twice on hers and her friend's refrigerator about a month ago. Prior to this, pt states she had the start of tennis elbow. Pt states naproxen and tylenol have been helping, but worries about damaging her kidneys. documented in this encounter [facility] 03-20-2023 Note HNO ID: [id number] Author: RT Vidal(R) Service: Radiology Author Type: Technologist Type: Progress Notes Filed: 03/20/2023 12:16 PM Note Text: Radiology Service Progress Note PATIENT NAME: Maryanne Minaya DATE OF SERVICE: March 20, 2023 TIME: 12:03 PM PATIENT IDENTITY VERIFICATION COMPLETED USING TWO (2) IDENTIFIERS: Name and Date of confirmed by patient verbally. FALL SCREENING: Has the patient had 2 falls in the last year or 1 fall with injury or currently using an Ambulatory Assistive Device (Walker, Cane, Wheelchair, Crutches, etc.)? No PATIENT GENDER DATA: Female. status: : No status: NO. PATIENT RELEVANT IMPLANT DATA REVIEWED: Yes RADIOLOGY DEPARTMENT: General X-ray: Exam(s) Completed: Upper Extremity X-Ray(s): Elbow, right PERIPHERAL IV DATA: Not applicable SIGNED BY: RT Vidal(R) March 20, 2023 12:03 PM [facility] 03-20-2023 Note HNO ID: [id number] Author: Starr Garcia MD Service: ? Author Type: Physician Type: Progress Notes Filed: 03/20/2023 1:08 PM Note Text: Reason for Visit Patient presents with: Pain (Elbow Pain): Right elbow, injured it 3 weeks ago Maryanne Minaya is a 52 year old female who presents here today for Above Complaints.. Health Maintenance COVID-19 VACCINE(1) DTAP,TDAP,TD(1 - Tdap) PNEUMOCOCCAL(2 - PCV) COLORECTAL CANCER SCREENING HEPATITIS B(2 of 3 - 19+ 3-dose series) SHINGRIX VACCINE(1 of 2) BP CONTROLLED (<130/80) HBA1C URINE ALBUMIN:CREATININE RATIO MAMMOGRAM LDL CHOLESTEROL HPI Elbow,: she hit her elbow on the frigde a couple weeks ago and then just in the past week she hit her elbow again Since then she has been having a lot of pain. She cannot straighten her elbow, and she cannot picking tech any thing, Went to 3 weeks ago and had a xr which showed effusion, but did not have an xr after the second bump She is unable to supinate and flex her forearm. Patient took the naproxen for a few day and she started to feel better. Patient notes the pain is phenomenal sometimes. Patient had her hysterectomy in 2009, she is now 14 years menopausal and we are concerned with bone loss. Her blood pressure is elevated and she has had around 25 pounds weight gain recently That perhaps is the reason her blood pressure is elevated also... We are increasing the losartan today She cannot tolerate the glp 1s and weight gain is a concern for patient possibly gastric sleeve or bypass No problem-specific Assessment AND Plan notes found for this encounter. PAST MEDICAL HISTORY Diagnosis Date Abnormal Pap smear of cervix 2010 DR DORANTES, REPEAT PAP NL Acquired hypothyroidism 06/08/2019 Acute kidney failure (HCC) 10/2020 Chlamydia 1994 Diabetes mellitus (HCC) Diabetes mellitus complicating , antepartum Essential hypertension 10/29/2021 Fibromyalgia Hyperlipidemia Mental disorder DEPRESSION/ANXIETY Neuropathy Non-healing open wound of toe 04/30/2021 RUBIA (obstructive sleep apnea) DME DASCO for PAP machine Osteomyelitis (HCC) 06/15/2019 right toe depression Sleep apnea PAST SURGICAL HISTORY Procedure Laterality Date AMPUTATION FOOT,TRANSMETATARSAL Right 06/15/2019 2nd toe APPENDECTOMY 2014 [facility] (MISSED AB 1ST TRIMESTER) EXCISION TONSIL LESIONS BILATERAL INSJ TUNNELED CVC W/O SUBQ PORT/FRANCHISE CONSULTANT AGE 6 YR/> 11/15/2020 LAPAROSCOPIC TUBAL LIGATION/RING/CLIP 12/2013 PAST SURGICAL HISTORY OF Right 04/02/2019 right great toe amputation FAMILY HISTORY Problem Relation Age of Onset Thyroid Mother Asthma Father Heart Maternal Grandmother Cancer Maternal Grandfather prostate Diabetes Maternal Aunt Diabetes Maternal Uncle Diabetes Other Social History Tobacco Use Smoking status: Every Day Packs/day: 0.50 Years: 25.00 Pack years: 12.50 Types: Cigarettes Smokeless tobacco: Never Vaping Use Vaping Use: Never used Substance Use Topics Alcohol use: No Drug use: No Past medical history, appointments, medications, allergies reviewed. Pertinent Lab/Diagnostic Studies are reviewed and discussed today Current Outpatient Medications: gabapentin (NEURONTIN) 600 mg tablet DEXCOM G6 TRANSMITTER ana DEXCOM G6 SENSOR ana OMNIPOD 5 G6 PODS, GEN 5, crtg meclizine (ANTIVERT) [address] (PROTONIX) 20 mg tablet atorvastatin (LIPITOR) 80 mg tablet diclofenac (VOLTAREN) 1 % topical gel levothyroxine (LEVOXYL) 75 mcg tablet losartan (COZAAR) 50 mg tablet naproxen (NAPROSYN) 500 mg tablet ergocalciferol 50,000 unit capsule (VITAMIN D2, DRISDOL) albuterol HFA (PROAIR HFA) 90 mcg/actuation inhaler fluticasone (FLONASE) 50 mcg/actuation nasal spray ondansetron orally disintegrating (ZOFRAN ODT) 4 mg disintegrating tablet alcohol swabs padm acetaminophen (TYLENOL) 500 mg tablet DULoxetine (CYMBALTA) 60 mg capsule naproxen (NAPROSYN) 500 mg tablet insulin glargine (LANTUS SOLOSTAR, BASAGLAR KWIKPEN) 100 unit/mL (3 mL) OZEMPIC 0.25 mg or 0.5 mg(2 mg/1.5 mL) pen insulin aspart U-100 (NOVOLOG FLEXPEN U-100 INSULIN) 100 unit/mL (3 mL) insulin needles, DISPOSABLE, (PEN NEEDLE) 31 gauge x 5/16 blood sugar diagnostic (BLOOD GLUCOSE TEST) test strip flash glucose scanning reader (FREESTYLE SOFI 14 DAY READER) misc flash glucose sensor (FREESTYLE SOFI 14 DAY SENSOR) kit biotin 1 mg cap CPAP insulin aspart (NOVOLOG PENFILL U-100 INSULIN SUBCUTANEOUS) Review of Systems CONSTITUTIONAL: No fevers, chills night sweats, unintended weight loss CARDIOVASCULAR: No chest pain, dyspnea, palpitations, orthopnea, PND, ankle edema. PULM: No dyspnea, unexplained cough. GI: No dysphagia/odynophagia, problematic reflux, constipation, diarrhea, changes in stool habits, hematochezia, melena. : No new urinary complaints, including dysuria, gross hematuria or pyuria. NEURO: No new balance problems, (more content not included)... [facility] 03-20-2023 History of Present illness Narrative Reason for Visit Patient presents with: Pain (Elbow Pain): Right elbow, injured it 3 weeks ago Maryanne Minaya is a 52 year old female who presents here today for Above Complaints.. Health Maintenance COVID-19 VACCINE(1) DTAP,TDAP,TD(1 - Tdap) PNEUMOCOCCAL(2 - PCV) COLORECTAL CANCER SCREENING HEPATITIS B(2 of 3 - 19+ 3-dose series) SHINGRIX VACCINE(1 of 2) BP CONTROLLED (<130/80) HBA1C URINE ALBUMIN:CREATININE RATIO MAMMOGRAM LDL CHOLESTEROL HPI Elbow,: she hit her elbow on the frigde a couple weeks ago and then just in the past week she hit her elbow again Since then she has been having a lot of pain. She cannot straighten her elbow, and she cannot picking tech any thing, Went to [facility] 3 weeks ago and had a xr which showed effusion, but did not have an xr after the second bump She is unable to supinate and flex her forearm. Patient took the naproxen for a few day and she started to feel better. Patient notes the pain is phenomenal sometimes. Patient had her hysterectomy in 2009, she is now 14 years menopausal and we are concerned with bone loss. Her blood pressure is elevated and she has had around 25 pounds weight gain recently That perhaps is the reason her blood pressure is elevated also... We are increasing the losartan today She cannot tolerate the glp 1s and weight gain is a concern for patient possibly gastric sleeve or bypass No problem-specific Assessment & Plan notes found for this encounter. PAST MEDICAL HISTORY Diagnosis Date Abnormal Pap smear of cervix 2010 DR DORANTES, REPEAT PAP NL Acquired hypothyroidism 06/08/2019 Acute kidney failure (HCC) 10/2020 Chlamydia 1995 Diabetes mellitus (HCC) Diabetes mellitus complicating , antepartum Essential hypertension 10/29/2021 Fibromyalgia Hyperlipidemia Mental disorder DEPRESSION/ANXIETY Neuropathy Non-healing open wound of toe 04/30/2021 RUBIA (obstructive sleep apnea) DME DASCO for PAP machine Osteomyelitis (HCC) 06/15/2019 right toe depression Sleep apnea PAST SURGICAL HISTORY Procedure Laterality Date AMPUTATION FOOT,TRANSMETATARSAL Right 06/15/2019 2nd toe APPENDECTOMY 2015 [facility] (MISSED AB 1ST TRIMESTER) EXCISION TONSIL LESIONS BILATERAL INSJ TUNNELED CVC W/O SUBQ PORT/FRANCHISE CONSULTANT AGE 6 YR/> 11/15/2020 LAPAROSCOPIC TUBAL LIGATION/RING/CLIP 12/2013 PAST SURGICAL HISTORY OF Right 04/02/2019 right great toe amputation FAMILY HISTORY Problem Relation Age of Onset Thyroid Mother Asthma Father Heart Maternal Grandmother Cancer Maternal Grandfather prostate Diabetes Maternal Aunt Diabetes Maternal Uncle Diabetes Other Social History Tobacco Use Smoking status: Every Day Packs/day: 0.50 Years: 25.00 Pack years: 12.50 Types: Cigarettes Smokeless tobacco: Never Vaping Use Vaping Use: Never used Substance Use Topics Alcohol use: No Drug use: No Past medical history, appointments, medications, allergies reviewed. Pertinent Lab/Diagnostic Studies are reviewed and discussed today Current Outpatient Medications: gabapentin (NEURONTIN) 600 mg tablet DEXCOM G6 TRANSMITTER ana DEXCOM G6 SENSOR ana OMNIPOD 5 G6 PODS, GEN 5, crtg meclizine (ANTIVERT) [address] (PROTONIX) 20 mg tablet atorvastatin (LIPITOR) 80 mg tablet diclofenac (VOLTAREN) 1 % topical gel levothyroxine (LEVOXYL) 75 mcg tablet losartan (COZAAR) 50 mg tablet naproxen (NAPROSYN) 500 mg tablet ergocalciferol 50,000 unit capsule (VITAMIN D2, DRISDOL) albuterol HFA (PROAIR HFA) 90 mcg/actuation inhaler fluticasone (FLONASE) 50 mcg/actuation nasal spray ondansetron orally disintegrating (ZOFRAN ODT) 4 mg disintegrating tablet alcohol swabs padm acetaminophen (TYLENOL) 500 mg tablet DULoxetine (CYMBALTA) 60 mg capsule naproxen (NAPROSYN) 500 mg tablet insulin glargine (LANTUS SOLOSTAR, BASAGLAR KWIKPEN) 100 unit/mL (3 mL) OZEMPIC 0.25 mg or 0.5 mg(2 mg/1.5 mL) pen insulin aspart U-100 (NOVOLOG FLEXPEN U-100 INSULIN) 100 unit/mL (3 mL) insulin needles, DISPOSABLE, (PEN NEEDLE) 31 gauge x 5/16 blood sugar diagnostic (BLOOD GLUCOSE TEST) test strip flash glucose scanning reader (FREESTYLE SOFI 14 DAY READER) [facility] flash glucose sensor (FREESTYLE SOFI 14 DAY SENSOR) kit biotin 1 mg cap CPAP insulin aspart (NOVOLOG PENFILL U-100 INSULIN SUBCUTANEOUS) Review of Systems CONSTITUTIONAL: No fevers, chills night sweats, unintended weight loss CARDIOVASCULAR: No chest pain, dyspnea, palpitations, orthopnea, PND, ankle edema. PULM: No dyspnea, unexplained cough. GI: No dysphagia/odynophagia, problematic reflux, constipation, diarrhea, changes in stool habits, hematochezia, melena. : No new urinary complaints, including dysuria, gross hematuria or pyuria. NEURO: No new balance problems, peripheral weakness/paresthesias or numbness of concern. Physical Exam BP 148/84 Pulse 76 Resp 16 Wt 120.2 kg (265 lb) LMP 09/17/2019 SpO2 97% BMI 45.49 kg/m General appearance: Well appearing, alert, in no acute distress, well nourished. Skin: Skin color, texture, turgor normal, no suspicious rashes or lesions Head: Normocephalic, no masses, lesions, tenderness or abnormalities Eyes: Anicteric sclera. Pupils are equally round and reactive to light. Extraocular movements are intact. Lungs: Lungs clear to auscultation. No wheezing, rhonchi, rales Heart: RRR without murmur, gallop, or rubs. Elbow exam: it is currently in a flexed position, some swelling of the elbow is noted too. and there is severe pain to supination and flexion of the right elbow ASSESSMENT/PLAN: 1. Injury of right elbow, initial encounter - ICD9: 959.3, ICD10: S59.901A (primary diagnosis) - XR ELBOW SPECIAL VIEWS AP/LAT/OTHER RIGHT - CONSULT TO ORTHOPAEDICS 2. Vitamin D deficiency - ICD9: 268.9, ICD10: E55.9 - ERGOCALCIFEROL (VITAMIN D2) 1,250 MCG (50,000 UNIT) CAPSULE 3. Surgical menopause - ICD9: 627.4, ICD10: E89.40 It has been more than 10 years since her menopause and would be prudent to have her Dexa scan done and assess for need for osteoporotic medication. - DXA-AXIAL SKELETON 4. Essential hypertension - ICD9: 401.9, ICD10: I1 - LOSARTAN 100 MG TABLET Starr Garcia MD documented in this encounter [facility] 03-14-2023 Miscellaneous Notes Patient has been identified by name and date of : No Patient phones for refill(s): Requested Prescriptions Pending Prescriptions Disp Refills gabapentin (NEURONTIN) 600 mg tablet 180 tablet 1 Sig: Take 1 tablet by mouth twice daily for 180 days. Date of last office visit in primary care: 11/05/22 Last 2 Encounter Wt Readings: Date: Wt: 02/20/2023 117.6 kg (259 lb 3.2 oz) 11/05/2022 113.4 kg (250 lb) Previous labs/tests for medication: Not applicable Please advise. Thank you. Tala Andino LPN Patient has been identified by name and date of : Yes Last office visit in this department: 11/05/2022 RX INSTRUCTIONS: Patient aware RX will be sent to pharmacy. No need to notify patient. Patient phones requesting refills as follows: Requested Prescriptions Pending Prescriptions Disp Refills gabapentin (NEURONTIN) 600 mg tablet 180 tablet 1 Sig: Take 1 tablet by mouth twice daily for 180 days. Please review and advise. Hetal Mandel documented in this encounter [facility] 03-05-2023 Note HNO ID: [id number] Author: Alissa Ware PT Service: ? Author Type: Physical Therapist Type: Progress Notes Filed: 03/05/2023 9:03 AM Note Text: 03/05/2023 [facility] PHYSICAL THERAPY DISCONTINUANCE OF CARE Plan of Care Period: Start of Care Date: 12/06/22 Last Visit Date: 02/10/2023 Therapy Program: The following is a summary of the interventions provided for this episode of care; Therapeutic exercise, Neuromuscular re-education, Manual therapy, Gait training, and Patient/Family/Caregiver Education Assessment: The following is the goal status: Goals for Episode of Care: created on 12/06/22 through 02/05/23 Goals updated on 02/05/2023. Independent in home exercises. (Met) Patient will decrease pain rating by 2 points to meet minimal clinical important difference for numeric pain rating scale. (Partially Met) Restore pain-free lumbar ROM to flexion fingertips to distal tibias/ankles and symmetrical lateral flexion to allow for improved mobility of spine and function. (Partially Met)-ROM improved, not symmetrical laterally Stand / Walk without pain/symptoms. (Partially Met)-able to walk further before pain Maintain proper sitting posture throughout session (Met) Knowledgeable regarding prophylaxis. (Met) Patient will increase strength of core trunk to 4+ to 5/5 to allow for improve gait mechanics/gait pattern, improve ability to complete ADLs, and decrease pain. (Partially Met) Patient Goals: To be able to not have all this pain all the time. To get up and walk, and without excrutiating pain. Based on the most recent progress report, patient was progressing as expected toward functional goals based on documented subjective information on progress and documented objective information regarding overall function, range of motion, and improved gait. Reason for Discontinuation of Care: Patient has not returned to therapy or scheduled additional follow-up appointments. Alissa Ware PT [facility] 02-20-2023 Note HNO ID: [id number] Author: RT Tere(R) Service: ? Author Type: Physician Internist Type: Progress Notes Filed: 02/20/2023 5:44 PM Note Text: Radiology Service Progress Note PATIENT NAME: Maryanne Minaya DATE OF SERVICE: February 20, 2023 TIME: 5:34 PM PATIENT IDENTITY VERIFICATION COMPLETED USING TWO (2) IDENTIFIERS: Name and Date of confirmed by patient verbally. FALL SCREENING: Has the patient had 2 falls in the last year or 1 fall with injury or currently using an Ambulatory Assistive Device (Walker, Cane, Wheelchair, Crutches, etc.)? No PATIENT GENDER DATA: Female. status: : No status: NO. PATIENT RELEVANT IMPLANT DATA REVIEWED: Yes RADIOLOGY DEPARTMENT: General X-ray: Exam(s) Completed: Upper Extremity X-Ray(s): Elbow, right PERIPHERAL IV DATA: Not applicable SIGNED BY: RT Tere(R) February 20, 2023 5:34 PM [facility] 02-20-2023 Note HNO ID: [id number] Author: RADHA Martins Service: ? Author Type: Physician Organ Grinder Type: Progress Notes Filed: 02/20/2023 6:02 PM Note Text: This note was created using [employer]. Subjective Maryanne Minaya is a 52 year old female. HPI 52-year-old female presents for right elbow pain. Patient states that 1 week ago she bumped her right elbow off of her fridge. She states she is having pain over the right lateral elbow. Prior to that, she states that she was having a some pain in her elbow which she thought was tennis elbow from overuse. She denies any injury prior to hitting it off of the fridge 1 week ago. No numbness or tingling in the arm or hand. She is right-hand dominant. No other complaints. PAST MEDICAL HISTORY Diagnosis Date Abnormal Pap smear of cervix 2010 DR DORANTSE, REPEAT PAP NL Acquired hypothyroidism 06/08/2019 Acute kidney failure (HCC) 10/2020 Chlamydia 1994 Diabetes mellitus (HCC) Diabetes mellitus complicating , antepartum Essential hypertension 10/29/2021 Fibromyalgia Hyperlipidemia Mental disorder DEPRESSION/ANXIETY Neuropathy Non-healing open wound of toe 04/30/2021 RUBIA (obstructive sleep apnea) DME DASCO for PAP machine Osteomyelitis (HCC) 06/15/2019 right toe depression Sleep apnea PAST SURGICAL HISTORY Procedure Laterality Date AMPUTATION FOOT,TRANSMETATARSAL Right 06/15/2019 2nd toe APPENDECTOMY 2014 [facility] (MISSED AB 1ST TRIMESTER) EXCISION TONSIL LESIONS BILATERAL INSJ TUNNELED CVC W/O SUBQ PORT/FRANCHISE CONSULTANT AGE 6 YR/> 11/15/2020 LAPAROSCOPIC TUBAL LIGATION/RING/CLIP 12/2013 PAST SURGICAL HISTORY OF Right 04/02/2019 right great toe amputation ALLERGIES Azithromycin, Clindamycin, Emycin [Erythromycin], and Vancomycin MEDICATIONS DEXCOM G6 TRANSMITTER ana use as directed AND CHANGE EVERY 90 DAYS DEXCOM G6 SENSOR ana APPLY 1 SENSOR AND CHANGE EVERY 10 DAYS OMNIPOD 5 G6 PODS, GEN 5, crtg USE 1 POD EVERY 48 HOURS meclizine (ANTIVERT) 25 mg tab TAKE 1 TABLET TWICE A DAY pantoprazole DR (PROTONIX) 20 mg tablet TAKE 1 TABLET TWICE A DAY atorvastatin (LIPITOR) 80 mg tablet take 1 tablet by mouth once daily diclofenac (VOLTAREN) 1 % topical gel apply 2 grams topically to affected area twice a day levothyroxine (LEVOXYL) 75 mcg tablet TAKE 1 TABLET ON AN EMPTY STOMACH DAILY BUT TAKE 2 TABLETS ON FRIDAY FOR THYROID gabapentin (NEURONTIN) 600 mg tablet Take 1 tablet by mouth twice daily for 180 days. losartan (COZAAR) 50 mg tablet take 1 tablet by mouth once daily naproxen (NAPROSYN) 500 mg tablet take 1 tablet by mouth twice a day NEEDED FOR PAIN or inflammation with food ergocalciferol 50,000 unit capsule (VITAMIN D2, DRISDOL) Take 1 capsule by mouth two times a week. TO BE TAKEN ORALLY DIRECTED. Take 1 tablet by mouth twice weekly [id number], then decrease to 1 tablet weekly. albuterol HFA (PROAIR HFA) 90 mcg/actuation inhaler Inhale 2 Puffs as instructed every 4 hours as needed. fluticasone (FLONASE) 50 mcg/actuation nasal spray Use 2 Sprays in each nostril once daily. Rinse mouth after use. ondansetron orally disintegrating (ZOFRAN ODT) 4 mg disintegrating tablet Take 1 tablet by mouth every 6 hours as needed for Nausea/Vomiting. biotin 1 mg cap Take 1 capsule by mouth once daily. alcohol swabs padm Apply 1 application to affected area four times daily. acetaminophen (TYLENOL) 500 mg tablet Take 1,000 mg by mouth every 4 hours as needed. DULoxetine (CYMBALTA) 60 mg capsule Take 60 mg by mouth once daily. Take 60 mg in the evening, along with 30 mg dose in the morning. insulin glargine (LANTUS SOLOSTAR, BASAGLAR KWIKPEN) 100 unit/mL (3 mL) 50 Units. (Patient not taking: Reported on 02/20/2023) OZEMPIC 0.25 mg or 0.5 mg(2 mg/1.5 mL) pen inject 0.5 milligrams subcutaneously every week (Patient not taking: Reported on 11/25/2022) insulin aspart U-100 (NOVOLOG FLEXPEN U-100 INSULIN) 100 unit/mL (3 mL) Inject insulin three times daily at first bite of food. Take 15 units with each meal insulin needles, DISPOSABLE, (PEN NEEDLE) 31 gauge x 5/16 1 Each three times daily. (Patient not taking: Reported on 02/20/2023) blood sugar diagnostic (BLOOD GLUCOSE TEST) test strip TEST BLOOD SUGAR 3 TIMES PER DAY. DX: 250. Uncontrolled Diabetes Mellitus INSULIN DEP: yes flash glucose scanning reader (FREESTYLE SOFI 14 DAY READER) misc Use to check blood sugars 4 times daily. (Patient not taking: Reported on 02/20/2023) flash glucose sensor (FREESTYLE SOFI 14 DAY SENSOR) kit Use to check blood sugars 4 times daily. (Patient not taking: Reported on 02/20/2023) CPAP Initiate Auto PAP @ 5-20 cm of water with humidification. Mask (per patient preference) optional chin strap (if indicated) , filters, tubing, humidifier and lifetime supplies. insulin aspart (NOVOLOG PENFILL U-100 INSULIN SUBCUTANEOUS) Inject 10-20 Units subcutaneously w MEALS. Sliding scale FAMILY HISTORY Problem Relation (more content not included)... [facility] 02-10-2023 Note HNO ID: [id number] Author: Alissa Ware, PT Service: ? Author Type: Physical Therapist Type: Progress Notes Filed: 02/10/2023 11:13 AM Note Text: Episode Visit Count: 12 Therapist That Will Accept/Oversee The Plan Of Care: Alissa Ware Start of Care Date: 12/06/22 Onset Date: 12/06/21 (Continuously for almost a year. Before that it was off and on.) Plan of Care Certification Date: 12/06/22 Next Certification Due Date: 02/05/23 Patient Identified by Name and Date of : Yes REHABILITATION AND SPORTS THERAPY PHYSICAL THERAPY TREATMENT NOTE ASSESSMENT: Maryanne Minaya tolerated the session with no issues. She demonstrated difficulty with resistance band exercises d/t painful gripping on R UE so modified activities today for core strengthening without band. The patient will continue to benefit from ongoing skilled physical therapy for reassessment by supervising therapist and likely discharge. PLAN FOR NEXT VISIT: Plan progress update and discharge next visit. SUBJECTIVE: Patient Reason for Visit: Pt notes she is doing exercises at home, but can't do the prop on elbows as it hurts her elbow. Pain: Pain Pain Level: 0 Pain Location: Buttocks - Left Additional Pain Information : Comments Additional Pain Information Comments: Pt notes pain in R elbow area (notes her tennis elbow is flared up . Post Treatment Pain Post Treatment Pain Level: 0 Post Treatment Pain Location: Buttocks - Left, Hip - Left Post Treatment Symptoms: Pt notes pain in R elbow area (notes her tennis elbow is flared up . OBJECTIVE MEASURES WITH LEVEL OF FUNCTION: TREATMENT: Therapeutic Exercise: 1: Seated isometric abdominals 5 sec holds 2x10 2: *Seated isometric abdominals with alt marching 3x10 B 3: *Seated iso abs with alt arm and leg lifts 3 x 10 4: Seated lumbar ext with green band around upper back 2 x 10 5: Scapular retractions (without band today d/t elbow pain with gripping) 3 x 10 6: *Instructed in standing at wall or counter top for lumbar extensions (decreased wt bearing on UEs) Skilled Intervention: Patient was educated in proper exercise technique and purpose for exercises. Reviewed and educated patient on additions/changes for home exercise program as above (*). Skilled judgment was provided in selection of appropriate interventions. Pt deferred written instruction for home exercise program to facilitate proper performance and compliance. Correct performance of therapeutic exercises was facilitated with verbal and visual cuing. Patient education as noted. Manual Therapy: 1: Foam roller to lower thoracic, lumbar, and gluteal musculature x 10min with pt in prone lying during this time. Skilled Intervention: Manual skills to improve joint mobility, ROM, and decrease pain. Utilized anatomy knowledge of the therapist, and assessment of patient's response to intervention. Billing Therapeutic Exercise Treatment Minutes: 30 Manual TherapyTreatment Minutes: 10 Total Treatment Time Minutes (timed/untimed): 40 Alissa Ware PT [facility] 02-10-2023 History of Present illness Narrative Episode Visit Count: 12 Therapist That Will Accept/Oversee The Plan Of Care: Alissa Ware Start of Care Date: 12/06/22 Onset Date: 12/06/21 (Continuously for almost a year. Before that it was off and on.) Plan of Care Certification Date: 12/06/22 Next Certification Due Date: 02/05/23 Patient Identified by Name and Date of : Yes REHABILITATION AND SPORTS THERAPY PHYSICAL THERAPY TREATMENT NOTE ASSESSMENT: Maryanne Sylvain Minaya tolerated the session with no issues. She demonstrated difficulty with resistance band exercises d/t painful gripping on R UE so modified activities today for core strengthening without band. The patient will continue to benefit from ongoing skilled physical therapy for reassessment by supervising therapist and likely discharge. PLAN FOR NEXT VISIT: Plan progress update and discharge next visit. SUBJECTIVE: Patient Reason for Visit: Pt notes she is doing exercises at home, but can't do the prop on elbows as it hurts her elbow. Pain: Pain Pain Level: 0 Pain Location: Buttocks - Left Additional Pain Information : Comments Additional Pain Information Comments: Pt notes pain in R elbow area (notes her tennis elbow is flared up . Post Treatment Pain Post Treatment Pain Level: 0 Post Treatment Pain Location: Buttocks - Left, Hip - Left Post Treatment Symptoms: Pt notes pain in R elbow area (notes her tennis elbow is flared up . OBJECTIVE MEASURES WITH LEVEL OF FUNCTION: TREATMENT: Therapeutic Exercise: 1: Seated isometric abdominals 5 sec holds 2x10 2: *Seated isometric abdominals with alt marching 3x10 B 3: *Seated iso abs with alt arm and leg lifts 3 x 10 4: Seated lumbar ext with green band around upper back 2 x 10 5: Scapular retractions (without band today d/t elbow pain with gripping) 3 x 10 6: *Instructed in standing at wall or counter top for lumbar extensions (decreased wt bearing on UEs) Skilled Intervention: Patient was educated in proper exercise technique and purpose for exercises. Reviewed and educated patient on additions/changes for home exercise program as above (*). Skilled judgment was provided in selection of appropriate interventions. Pt deferred written instruction for home exercise program to facilitate proper performance and compliance. Correct performance of therapeutic exercises was facilitated with verbal and visual cuing. Patient education as noted. Manual Therapy: 1: Foam roller to lower thoracic, lumbar, and gluteal musculature x 10min with pt in prone lying during this time. Skilled Intervention: Manual skills to improve joint mobility, ROM, and decrease pain. Utilized anatomy knowledge of the therapist, and assessment of patient's response to intervention. Billing Therapeutic Exercise Treatment Minutes: 30 Manual TherapyTreatment Minutes: 10 Total Treatment Time Minutes (timed/untimed): 40 Ailssa Ware PT documented in this encounter [facility] 02-05-2023 Note HNO ID: [id number] Author: Alissa Ware PT Service: ? Author Type: Physical Therapist Type: Progress Notes Filed: 02/05/2023 9:35 AM Note Text: Episode Visit Count: 11 Therapist That Will Accept/Oversee The Plan Of Care: Alissa Ware Start of Care Date: 12/06/22 Onset Date: 12/06/21 (Continuously for almost a year. Before that it was off and on.) Plan of Care Certification Date: 12/06/22 Next Certification Due Date: 02/05/23 Patient Identified by Name and Date of : Yes REHABILITATION AND SPORTS THERAPY PHYSICAL THERAPY PROGRESS REPORT PLAN OF CARE UPDATE: Assessment: Maryanne Minaya demonstrates improvements in sitting, standing, and walking in the community. She has progressed toward goals. Patient continues to present with impairments in overall function, posture, and strength that interfere with standing, walking in the community, physical activities . Current prognosis is Good due to: current objective clinical presentation, good overall health status, within-session changes, good support system/ coping skills . She will benefit from continued skilled therapy services to meet the updated goals for this plan of care as noted below. Goals for Episode of Care: created on 12/06/22 through 02/05/23 Goals updated on 02/05/2023. Independent in home exercises. (Met) Patient will decrease pain rating by 2 points to meet minimal clinical important difference for numeric pain rating scale. (Partially Met) Restore pain-free lumbar ROM to flexion fingertips to distal tibias/ankles and symmetrical lateral flexion to allow for improved mobility of spine and function. (Partially Met)-ROM improved, not symmetrical laterally Stand / Walk without pain/symptoms. (Partially Met)-able to walk further before pain Maintain proper sitting posture throughout session (Met) Knowledgeable regarding prophylaxis. (Met) Patient will increase strength of core trunk to 4+ to 5/5 to allow for improve gait mechanics/gait pattern, improve ability to complete ADLs, and decrease pain. (Partially Met) Patient Goals: To be able to not have all this pain all the time. To get up and walk, and without excrutiating pain. Planned Interventions, Frequency, and Duration: 2x/week, 2 weeks Total Number of Visits Planned: 2 Patient to be seen for Therapeutic exercise ([id number]), Neuromuscular re-education ([id number]), Manual therapy ([id number]), Patient/Family/Caregiver Education PLAN FOR NEXT VISIT: Continue with extension, core strengthening and finalize HEP next 2 visits. SUBJECTIVE: Patient Reason for Visit: Pt states she went for a walk yesterday with her dog. She states by the end of the evening she was tired and sore (legs were aching). She reports feeling about 60% better. She notes the worst pain she has is when washing dishes. Pain is less intense with walking. Functional Limitations: standing, walking in the community, physical activities Pain: Pain Pain Level: 2 Pain Location: Buttocks - Left Post Treatment Pain Post Treatment Pain Level: 0 Post Treatment Pain Location: Buttocks - Left, Hip - Left PROMIS Scales Higher is Better 01/05/2023 2022 03/10/2022 Phys Func - Score 36 (moderate dysfunction) 37 (moderate dysfunction) 39 (moderate dysfunction) Phys Func - Percentile 8 % 10 % 14 % Self-Eff Symptom - Score 46 (Average) 41 (Average) 38 (Low) Self-Eff Symptom - Percentile 34 % 18 % 12 % T-scores: mean of general population = 50. 5 points is clinically meaningfully difference Percentiles provide an indication of how the patient's score ranks in relation to the general population. Higher percentile rankings indicate better function/quality of life. 50th percentile is the average of the general population and indicates half of respondents had a worse score. OBJECTIVE MEASURES WITH LEVEL OF FUNCTION: Lumbar Spine AROM Lumbar Flexion: (fingertips to toes) Lumbar Extension: Normal Lumbar R Side-Bend: (40deg) Lumbar L Side-Bend: (35deg) Gait Gait Observation: Pt ambulating with only slight gait deviation and no assistive device. Pt required verbal and visual correction in form. TREATMENT: Therapeutic Exercise: 1: Seated isometric abdominals 5 sec holds 2x10 2: Seated isometric abdominals with alt marching 3x10 B 3: Seated iso abs with alt arm and leg lifts 3 x 10 4: Palllof's press with GTB 2x10 B 5: Stir the Pot with GTB 2x10 CW and CCW each side 6: Scapular retractiosn with GTB 3x10 7: prone lying x 3 minutes (subjective progress update during this time) Skilled Intervention: Patient was educated in proper exercise technique and purpose for exercises. Reviewed and educated patient on additions/changes for home exercise program. Skilled judgment was provided in selection of appropriate interventions. Correct performance of therapeutic exercises was facilitated with verbal and visual cuing. Additional time necessary for objective measurements and (more content not included)... [facility] 02-03-2023 Miscellaneous Notes Spoke with pt and information listed below given. Pt verbalizes understanding. Sirena Rene LPN Please let patient know fasting blood work orders have been placed. Thank you Danielle Sandoval APRN.SWISS MACHINIST Patient has been identified by name and date of : No Patient phones for refill(s): Requested Prescriptions Pending Prescriptions Disp Refills atorvastatin (LIPITOR) 80 mg tablet [Pharmacy Med Name: ATORVASTATIN 80 MG TABLET] 90 tablet 1 Sig: take 1 tablet by mouth once daily Date of last office visit in primary care: 11/05/22 Last 2 Encounter Wt Readings: Date: Wt: 11/05/2022 113.4 kg (250 lb) 09/18/2022 112.9 kg (249 lb) Previous labs/tests for medication: Cholesterol: HDL Cholesterol (mg/dL) Date Value 01/21/2022 42 11/13/2021 41 LDL Cholesterol (mg/dL) Date Value 01/21/2022 131 11/13/2021 75 ALT (U/L) Date Value 01/21/2022 13 11/13/2021 11 Non HDL Cholesterol (mg/dL) Date Value 01/21/2022 172 11/13/2021 103 Please advise. Thank you. Tala Andino LPN documented in this encounter [facility] 02-03-2023 Note HNO ID: [id number] Author: Alissa Ware, ARCHANA Service: ? Author Type: Physical Therapist Type: Progress Notes Filed: 02/03/2023 10:26 AM Note Text: Episode Visit Count: 10 Therapist That Will Accept/Oversee The Plan Of Care: Alissa Ware Start of Care Date: 12/06/22 Onset Date: 12/06/21 (Continuously for almost a year. Before that it was off and on.) Plan of Care Certification Date: 12/06/22 Next Certification Due Date: 02/05/23 Patient Identified by Name and Date of : Yes REHABILITATION AND SPORTS THERAPY PHYSICAL THERAPY TREATMENT NOTE ASSESSMENT: Maryanne Minaya tolerated the session with fatigue. She demonstrated improvements in tolerance to core strengthening exercises. The patient will continue to benefit from ongoing skilled physical therapy to progress toward set goals. PLAN FOR NEXT VISIT: Progress note. SUBJECTIVE: Patient Reason for Visit: Pt reports that she is feeling better. Pt has new routine for stretches and it seems to be helping a lot. Pt wearing tennis shoes in house and it seems to be making a good difference in symptoms. Pain: Pain Pain Level: 0 Pain Location: Buttocks - Left, Hip - Left Post Treatment Pain Post Treatment Pain Level: 0 Post Treatment Pain Location: Buttocks - Left, Hip - Left OBJECTIVE MEASURES WITH LEVEL OF FUNCTION: Pt more aware of posture throughout entire session. TREATMENT: Therapeutic Exercise: 1: prone lying x 3 minutes 2: Seated isometric abdominals 5 sec holds 2x10 3: Seated isometric abdominals with alt marching 3x10 B 4: Seated iso abs with alt arm and leg lifts 3 x 10 5: *Palllof's press with GTB 2x10 B 6: *Stir the Pot with GTB 1x10 CW and CCW each side 7: *Scapular retractiosn with GTB 2x10 Skilled Intervention: Patient was educated in proper exercise technique and purpose for exercises. Reviewed and educated patient on additions/changes for home exercise program as above (*). Skilled judgment was provided in selection of appropriate interventions. Provided written instruction for home exercise program to facilitate proper performance and compliance. Correct performance of therapeutic exercises was facilitated with verbal and visual cuing. Manual Therapy: 1: Foam roller to lower thoracic, lumbar, and gluteal musculature x 8min with pt in prone lying during this time. Skilled Intervention: Manual skills to improve joint mobility, ROM, and decrease pain. Utilized anatomy knowledge of the therapist, and assessment of patient's response to intervention. Billing Therapeutic Exercise Treatment Minutes: 33 Manual TherapyTreatment Minutes: 8 Total Treatment Time Minutes (timed/untimed): 41 Tiffanie Ozuna, INVESTMENT PROFESSIONAL Alissa Ware, PT [facility] 02-03-2023 History of Present illness Narrative Episode Visit Count: 10 Therapist That Will Accept/Oversee The Plan Of Care: Alissa Ware Start of Care Date: 12/06/22 Onset Date: 12/06/21 (Continuously for almost a year. Before that it was off and on.) Plan of Care Certification Date: 12/06/22 Next Certification Due Date: 02/05/23 Patient Identified by Name and Date of : Yes REHABILITATION AND SPORTS THERAPY PHYSICAL THERAPY TREATMENT NOTE ASSESSMENT: Maryanne Minaya tolerated the session with fatigue. She demonstrated improvements in tolerance to core strengthening exercises. The patient will continue to benefit from ongoing skilled physical therapy to progress toward set goals. PLAN FOR NEXT VISIT: Progress note. SUBJECTIVE: Patient Reason for Visit: Pt reports that she is feeling better. Pt has new routine for stretches and it seems to be helping a lot. Pt wearing tennis shoes in house and it seems to be making a good difference in symptoms. Pain: Pain Pain Level: 0 Pain Location: Buttocks - Left, Hip - Left Post Treatment Pain Post Treatment Pain Level: 0 Post Treatment Pain Location: Buttocks - Left, Hip - Left OBJECTIVE MEASURES WITH LEVEL OF FUNCTION: Pt more aware of posture throughout entire session. TREATMENT: Therapeutic Exercise: 1: prone lying x 3 minutes 2: Seated isometric abdominals 5 sec holds 2x10 3: Seated isometric abdominals with alt marching 3x10 B 4: Seated iso abs with alt arm and leg lifts 3 x 10 5: *Palllof's press with GTB 2x10 B 6: *Stir the Pot with GTB 1x10 CW and CCW each side 7: *Scapular retractiosn with GTB 2x10 Skilled Intervention: Patient was educated in proper exercise technique and purpose for exercises. Reviewed and educated patient on additions/changes for home exercise program as above (*). Skilled judgment was provided in selection of appropriate interventions. Provided written instruction for home exercise program to facilitate proper performance and compliance. Correct performance of therapeutic exercises was facilitated with verbal and visual cuing. Manual Therapy: 1: Foam roller to lower thoracic, lumbar, and gluteal musculature x 8min with pt in prone lying during this time. Skilled Intervention: Manual skills to improve joint mobility, ROM, and decrease pain. Utilized anatomy knowledge of the therapist, and assessment of patient's response to intervention. Billing Therapeutic Exercise Treatment Minutes: 33 Manual TherapyTreatment Minutes: 8 Total Treatment Time Minutes (timed/untimed): 41 LENCHO Clinton PT documented in this encounter [facility] 02-03-2023 Miscellaneous Notes Patient has been identified by name and date of : No Patient phones for refill(s): Requested Prescriptions Pending Prescriptions Disp Refills pantoprazole DR (PROTONIX) 20 mg tablet [Pharmacy Med Name: PANTOPRAZOLE SODIUM DR TABS 20MG] 180 tablet 3 Sig: TAKE 1 TABLET TWICE A DAY Date of last office visit in primary care: 11/05/22 Last 2 Encounter Wt Readings: Date: Wt: 11/05/2022 113.4 kg (250 lb) 09/18/2022 112.9 kg (249 lb) Previous labs/tests for medication: Not applicable Please advise. Thank you. Tala Andino LPN documented in this encounter [facility] 01-29-2023 Note HNO ID: [id number] Author: Alissa Ware PT Service: ? Author Type: Physical Therapist Type: Progress Notes Filed: 01/29/2023 12:35 PM Note Text: Episode Visit Count: 9 Therapist That Will Accept/Oversee The Plan Of Care: Alissa Ware Start of Care Date: 12/06/22 Onset Date: 12/06/21 (Continuously for almost a year. Before that it was off and on.) Plan of Care Certification Date: 12/06/22 Next Certification Due Date: 02/05/23 Patient Identified by Name and Date of : Yes REHABILITATION AND SPORTS THERAPY PHYSICAL THERAPY TREATMENT NOTE ASSESSMENT: Mrayanne Minaya tolerated the session with decreased symptoms. She demonstrated good tolerance to new exercise, but had episode of lightheadedness/nausiousness towards end of session. The patient will continue to benefit from ongoing skilled physical therapy to progress toward set goals. PLAN FOR NEXT VISIT: Continue with core strengthening and prone based exercises, then plan of care update 02/05/23. SUBJECTIVE: Patient Reason for Visit: Pt reports she is sore all over from deep cleaning closets at home yesterday. She reports that overall her sciatica pian is doing much better.Today she describes mostly stiffness from bending over so much yesterday. 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 Pain: Pain Pain Level: 3 Pain Location: Buttocks - Left, Hip - Left Post Treatment Pain Post Treatment Pain Level: 0 Post Treatment Pain Location: Buttocks - Left, Hip - Left OBJECTIVE MEASURES WITH LEVEL OF FUNCTION: At end of treadmill walking, pt noted feeling dizzy/lightheaded and nauseous. She sat down and checked her blood sugar which she reported read 91. She consumed a small carton of grape juice and rested in the chair for 5 minutes. Assessed blood pressure at that time as noted. Pt stated she was feeling better so ended with prone lying for foam roller. At end of session pt reported symptoms were nearly resolved. TREATMENT: Therapeutic Exercise: 1: prone lying x 5 minutes 2: prone prop x 5 minutes 3: Seated isometric abdominals 5 sec holds 2x10 4: Seated isometric abdominals with alt marching 2x10 B 5: Seated iso abs with alt arm and leg lifts 2 x 10 6: Seated scapular retractions 1x10 7: backwards walking on treadmill holding rails 0.5MPH x 2 min Skilled Intervention: Patient was educated in proper exercise technique and purpose for exercises. Reviewed and educated patient on additions/changes for home exercise program. Skilled judgment was provided in selection of appropriate interventions. Correct performance of therapeutic exercises was facilitated with verbal and visual cuing. Patient education as noted. Manual Therapy: 1: Foam roller to lower thoracic, lumbar, and gluteal musculature x 8min with pt in prone lying during this time. Skilled Intervention: Manual skills to improve joint mobility, ROM, and decrease pain. Utilized anatomy knowledge of the therapist, and assessment of patient's response to intervention. Billing Therapeutic Exercise Treatment Minutes: 32 Manual TherapyTreatment Minutes: 8 Total Treatment Time Minutes (timed/untimed): 40 Alissa Ware, PT [facility] 01-29-2023 History of Present illness Narrative Episode Visit Count: 9 Therapist That Will Accept/Oversee The Plan Of Care: Alissa Ware Start of Care Date: 12/06/22 Onset Date: 12/06/21 (Continuously for almost a year. Before that it was off and on.) Plan of Care Certification Date: 12/06/22 Next Certification Due Date: 02/05/23 Patient Identified by Name and Date of : Yes REHABILITATION AND SPORTS THERAPY PHYSICAL THERAPY TREATMENT NOTE ASSESSMENT: Maryanne Minaya tolerated the session with decreased symptoms. She demonstrated good tolerance to new exercise, but had episode of lightheadedness/nausiousness towards end of session. The patient will continue to benefit from ongoing skilled physical therapy to progress toward set goals. PLAN FOR NEXT VISIT: Continue with core strengthening and prone based exercises, then plan of care update 02/05/23. SUBJECTIVE: Patient Reason for Visit: Pt reports she is sore all over from deep cleaning closets at home yesterday. She reports that overall her sciatica pisourav is doing much better.Today she describes mostly stiffness from bending over so much yesterday. 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 Pain: Pain Pain Level: 3 Pain Location: Buttocks - Left, Hip - Left Post Treatment Pain Post Treatment Pain Level: 0 Post Treatment Pain Location: Buttocks - Left, Hip - Left OBJECTIVE MEASURES WITH LEVEL OF FUNCTION: At end of treadmill walking, pt noted feeling dizzy/lightheaded and nauseous. She sat down and checked her blood sugar which she reported read 91. She consumed a small carton of grape juice and rested in the chair for 5 minutes. Assessed blood pressure at that time as noted. Pt stated she was feeling better so ended with prone lying for foam roller. At end of session pt reported symptoms were nearly resolved. TREATMENT: Therapeutic Exercise: 1: prone lying x 5 minutes 2: prone prop x 5 minutes 3: Seated isometric abdominals 5 sec holds 2x10 4: Seated isometric abdominals with alt marching 2x10 B 5: Seated iso abs with alt arm and leg lifts 2 x 10 6: Seated scapular retractions 1x10 7: backwards walking on treadmill holding rails 0.5MPH x 2 min Skilled Intervention: Patient was educated in proper exercise technique and purpose for exercises. Reviewed and educated patient on additions/changes for home exercise program. Skilled judgment was provided in selection of appropriate interventions. Correct performance of therapeutic exercises was facilitated with verbal and visual cuing. Patient education as noted. Manual Therapy: 1: Foam roller to lower thoracic, lumbar, and gluteal musculature x 8min with pt in prone lying during this time. Skilled Intervention: Manual skills to improve joint mobility, ROM, and decrease pain. Utilized anatomy knowledge of the therapist, and assessment of patient's response to intervention. Billing Therapeutic Exercise Treatment Minutes: 32 Manual TherapyTreatment Minutes: 8 Total Treatment Time Minutes (timed/untimed): 40 Alissa Lemon, PT documented in this encounter [facility] 01-22-2023 Note HNO ID: [id number] Author: Alissa Ware PT Service: ? Author Type: Physical Therapist Type: Progress Notes Filed: 01/22/2023 9:48 AM Note Text: Episode Visit Count: 8 Therapist That Will Accept/Oversee The Plan Of Care: Alissa Ware Start of Care Date: 12/06/22 Onset Date: 12/06/21 (Continuously for almost a year. Before that it was off and on.) Plan of Care Certification Date: 12/06/22 Next Certification Due Date: 02/05/23 Patient Identified by Name and Date of : Yes REHABILITATION AND SPORTS THERAPY PHYSICAL THERAPY TREATMENT NOTE ASSESSMENT: Maryanne Minaya tolerated the session with no issues. She demonstrated improvements in decreased pain rating and good tolerance to progression of exercise today. The patient will continue to benefit from ongoing skilled physical therapy to progress toward set goals. PLAN FOR NEXT VISIT: Progress core strengthening exercises if pain remains low to none.May add seated iso abs with alt arm raises and/or seated trunk perturbations. SUBJECTIVE: Patient Reason for Visit: Pt reports she has been feeling better since last treatment. Denies any pain over last 48 hours. She states overall she is feeling about 30% better. Pain: Pain Pain Level: 0 Pain Location: Low Back/Lumbar Spine - Left, Low Back/Lumbar Spine- Midline, Low Back/Lumbar Spine - Right Post Treatment Pain Post Treatment Pain Level: 0 Post Treatment Pain Location: Low Back/Lumbar Spine - Left, Low Back/Lumbar Spine - Right, Low Back/Lumbar Spine- Midline OBJECTIVE MEASURES WITH LEVEL OF FUNCTION: Gait Gait: Independent Gait Device: None Gait Observation: Pt ambulating with only slight gait deviation and no assistive device. TREATMENT: Therapeutic Exercise: 1: Seated isometric abdominals 5 sec holds 2x10 2: Seated isometric abdominals with alt marching 2x10 B 3: Seated scapular retractions 1x10 (No pain with these today.) 4: Seated piriformis stretch 4x15 seconds each leg 5: backwards walking on treadmill holding rails 0.5MPH x 2 min (Pt denied any pain, but notes it felt weird just because of her neuropathy and missing 2 toes on R foot.) 6: prone lying 2 x 5 minutes 7: prone prop x 5 minutes Skilled Intervention: Patient was educated in proper exercise technique and purpose for exercises. Reviewed and educated patient on additions/changes for home exercise program. Skilled judgment was provided in selection of appropriate interventions. Correct performance of therapeutic exercises was facilitated with verbal and visual cuing. Patient education as noted. Manual Therapy: 1: Foam roller to lower thoracic, lumbar, and gluteal musculature x 8min with pt in prone lying during this time. Skilled Intervention: Manual skills to improve joint mobility, ROM, and decrease pain. Utilized anatomy knowledge of the therapist, and assessment of patient's response to intervention. Billing Therapeutic Exercise Treatment Minutes: 34 Manual TherapyTreatment Minutes: 8 Total Treatment Time Minutes (timed/untimed): 42 Alissa Ware, PT [facility] 01-22-2023 History of Present illness Narrative Episode Visit Count: 8 Therapist That Will Accept/Oversee The Plan Of Care: Alissa Ware Start of Care Date: 12/06/22 Onset Date: 12/06/21 (Continuously for almost a year. Before that it was off and on.) Plan of Care Certification Date: 12/06/22 Next Certification Due Date: 02/05/23 Patient Identified by Name and Date of : Yes REHABILITATION AND SPORTS THERAPY PHYSICAL THERAPY TREATMENT NOTE ASSESSMENT: Maryanne Narayan Amygen tolerated the session with no issues. She demonstrated improvements in decreased pain rating and good tolerance to progression of exercise today. The patient will continue to benefit from ongoing skilled physical therapy to progress toward set goals. PLAN FOR NEXT VISIT: Progress core strengthening exercises if pain remains low to none.May add seated iso abs with alt arm raises and/or seated trunk perturbations. SUBJECTIVE: Patient Reason for Visit: Pt reports she has been feeling better since last treatment. Denies any pain over last 48 hours. She states overall she is feeling about 30% better. Pain: Pain Pain Level: 0 Pain Location: Low Back/Lumbar Spine - Left, Low Back/Lumbar Spine- Midline, Low Back/Lumbar Spine - Right Post Treatment Pain Post Treatment Pain Level: 0 Post Treatment Pain Location: Low Back/Lumbar Spine - Left, Low Back/Lumbar Spine - Right, Low Back/Lumbar Spine- Midline OBJECTIVE MEASURES WITH LEVEL OF FUNCTION: Gait Gait: Independent Gait Device: None Gait Observation: Pt ambulating with only slight gait deviation and no assistive device. TREATMENT: Therapeutic Exercise: 1: Seated isometric abdominals 5 sec holds 2x10 2: Seated isometric abdominals with alt marching 2x10 B 3: Seated scapular retractions 1x10 (No pain with these today.) 4: Seated piriformis stretch 4x15 seconds each leg 5: backwards walking on treadmill holding rails 0.5MPH x 2 min (Pt denied any pain, but notes it felt weird just because of her neuropathy and missing 2 toes on R foot.) 6: prone lying 2 x 5 minutes 7: prone prop x 5 minutes Skilled Intervention: Patient was educated in proper exercise technique and purpose for exercises. Reviewed and educated patient on additions/changes for home exercise program. Skilled judgment was provided in selection of appropriate interventions. Correct performance of therapeutic exercises was facilitated with verbal and visual cuing. Patient education as noted. Manual Therapy: 1: Foam roller to lower thoracic, lumbar, and gluteal musculature x 8min with pt in prone lying during this time. Skilled Intervention: Manual skills to improve joint mobility, ROM, and decrease pain. Utilized anatomy knowledge of the therapist, and assessment of patient's response to intervention. Billing Therapeutic Exercise Treatment Minutes: 34 Manual TherapyTreatment Minutes: 8 Total Treatment Time Minutes (timed/untimed): 42 Alissa Ware PT documented in this encounter [facility] 01-20-2023 Note HNO ID: [id number] Author: Jeffrey Gudiry PT Service: ? Author Type: Physical Therapist Type: Progress Notes Filed: 01/20/2023 9:09 AM Note Text: Episode Visit Count: 7 Therapist That Will Accept/Oversee The Plan Of Care: Alissa Ware Start of Care Date: 12/06/22 Onset Date: 12/06/21 (Continuously for almost a year. Before that it was off and on.) Plan of Care Certification Date: 12/06/22 Next Certification Due Date: 02/05/23 Patient Identified by Name and Date of : Yes REHABILITATION AND SPORTS THERAPY PHYSICAL THERAPY TREATMENT NOTE ASSESSMENT: Maryanne Minaya tolerated the session with decreased symptoms. She demonstrated improvements in endurance with exercise. The patient will continue to benefit from ongoing skilled physical therapy to progress toward set goals. PLAN FOR NEXT VISIT: Consider trying a small amount of retro walking on treadmill to facilitate lumbar extension. SUBJECTIVE: Patient Reason for Visit: Pt reports that she is not feeling the greatest this morning. Pain: Pain Pain Level: 7 Pain Location: Low Back/Lumbar Spine - Left, Low Back/Lumbar Spine- Midline, Low Back/Lumbar Spine - Right Description: Stabbing, Aching Frequency: Continuous Post Treatment Pain Post Treatment Pain Level: 3 Post Treatment Pain Location: Low Back/Lumbar Spine - Left, Low Back/Lumbar Spine - Right, Low Back/Lumbar Spine- Midline OBJECTIVE MEASURES WITH LEVEL OF FUNCTION: Good posture noted with seated exercises TREATMENT: Therapeutic Exercise: 1: prone lying x 7 minutes (pain decreased slightly) 2: prone prop x 3 minutes ( not feeling comfrotable today ) 3: Seated piriformis stretch 3x30 seconds B 4: Seated isometrci abdominals 1x10 5: Seated isometric abdominals with alt marching 2x10 B 6: Seated scapular retractions 1x10 (hurt the more the pt did) Skilled Intervention: Patient was educated in proper exercise technique and purpose for exercises. Skilled judgment was provided in selection of appropriate interventions. Correct performance of therapeutic exercises was facilitated with verbal and visual cuing. Manual Therapy: 1: Foam roller to lower thoracic, lumbar, and gluteal musculature x 8min with pt in prone lying during this time. (Pain decreased to 3/10) Skilled Intervention: Manual skills to improve joint mobility, ROM, and decrease pain. Utilized anatomy knowledge of the therapist, and assessment of patient's response to intervention. Billing Therapeutic Exercise Treatment Minutes: 30 Manual TherapyTreatment Minutes: 8 Total Treatment Time Minutes (timed/untimed): 38 Tiffanie Laith, INVESTMENT PROFESSIONAL Jeffrey Guidry, PT [facility] 01-20-2023 History of Present illness Narrative Episode Visit Count: 7 Therapist That Will Accept/Oversee The Plan Of Care: Alissa Ware Start of Care Date: 12/06/22 Onset Date: 12/06/21 (Continuously for almost a year. Before that it was off and on.) Plan of Care Certification Date: 12/06/22 Next Certification Due Date: 02/05/23 Patient Identified by Name and Date of : Yes REHABILITATION AND SPORTS THERAPY PHYSICAL THERAPY TREATMENT NOTE ASSESSMENT: Maryanne Minaya tolerated the session with decreased symptoms. She demonstrated improvements in endurance with exercise. The patient will continue to benefit from ongoing skilled physical therapy to progress toward set goals. PLAN FOR NEXT VISIT: Consider trying a small amount of retro walking on treadmill to facilitate lumbar extension. SUBJECTIVE: Patient Reason for Visit: Pt reports that she is not feeling the greatest this morning. Pain: Pain Pain Level: 7 Pain Location: Low Back/Lumbar Spine - Left, Low Back/Lumbar Spine- Midline, Low Back/Lumbar Spine - Right Description: Stabbing, Aching Frequency: Continuous Post Treatment Pain Post Treatment Pain Level: 3 Post Treatment Pain Location: Low Back/Lumbar Spine - Left, Low Back/Lumbar Spine - Right, Low Back/Lumbar Spine- Midline OBJECTIVE MEASURES WITH LEVEL OF FUNCTION: Good posture noted with seated exercises TREATMENT: Therapeutic Exercise: 1: prone lying x 7 minutes (pain decreased slightly) 2: prone prop x 3 minutes ( not feeling comfrotable today ) 3: Seated piriformis stretch 3x30 seconds B 4: Seated isometrci abdominals 1x10 5: Seated isometric abdominals with alt marching 2x10 B 6: Seated scapular retractions 1x10 (hurt the more the pt did) Skilled Intervention: Patient was educated in proper exercise technique and purpose for exercises. Skilled judgment was provided in selection of appropriate interventions. Correct performance of therapeutic exercises was facilitated with verbal and visual cuing. Manual Therapy: 1: Foam roller to lower thoracic, lumbar, and gluteal musculature x 8min with pt in prone lying during this time. (Pain decreased to 3/10) Skilled Intervention: Manual skills to improve joint mobility, ROM, and decrease pain. Utilized anatomy knowledge of the therapist, and assessment of patient's response to intervention. Billing Therapeutic Exercise Treatment Minutes: 30 Manual TherapyTreatment Minutes: 8 Total Treatment Time Minutes (timed/untimed): 38 Tiffanie Ozuna, LENCHO Guidry PT documented in this encounter [facility] 01-09-2023 Note HNO ID: [id number] Author: Marcelle Moreno PT Service: ? Author Type: Physical Therapist Type: Progress Notes Filed: 01/09/2023 9:31 AM Note Text: Episode Visit Count: 6 Therapist That Will Accept/Oversee The Plan Of Care: Alissa Ware Start of Care Date: 12/06/22 Onset Date: 12/06/21 (Continuously for almost a year. Before that it was off and on.) Plan of Care Certification Date: 12/06/22 Next Certification Due Date: 02/05/23 Patient Identified by Name and Date of : Yes REHABILITATION AND SPORTS THERAPY PHYSICAL THERAPY TREATMENT NOTE ASSESSMENT: Maryanne Minaya tolerated the session with decreased symptoms. She demonstrated improvements in time it took for pain to decrease. The patient will continue to benefit from ongoing skilled physical therapy to progress toward set goals. PLAN FOR NEXT VISIT: Consider trying a small amount of retro walking on treadmill to facilitate lumbar extension. SUBJECTIVE: Patient Reason for Visit: Pt reports that she s feeling a little bit better than at previous session. Pt feels that her sitting posture is affecting her symptoms as she is leaning to one side to get off of sciatic nerve on left leg. Pt presents without AD. Pain: Pain Pain Level: 4 Pain Location: Buttocks - Left, Low Back/Lumbar Spine - Left, Low Back/Lumbar Spine- Midline, Low Back/Lumbar Spine - Right Description: Stabbing Frequency: Continuous Post Treatment Pain Post Treatment Pain Level: 0 OBJECTIVE MEASURES WITH LEVEL OF FUNCTION: TREATMENT: Therapeutic Exercise: 1: prone lying x 7 minutes (pain decreased slightly) 2: prone prop x 5 minutes (no change with pain) 3: *Seated piriformis stretch 3x30 seconds B Skilled Intervention: Patient was educated in proper exercise technique and purpose for exercises. Skilled judgment was provided in selection of appropriate interventions. Correct performance of therapeutic exercises was facilitated with verbal and visual cuing. Manual Therapy: 1: Foam roller to lower thoracic, lumbar, and gluteal musculature x 15min with pt in prone lying during this time. Skilled Intervention: Manual skills to improve joint mobility, ROM, and decrease pain. Utilized anatomy knowledge of the therapist, and assessment of patient's response to intervention. Billing Therapeutic Exercise Treatment Minutes: 25 Manual TherapyTreatment Minutes: 15 Total Treatment Time Minutes (timed/untimed): 40 Tiffanie Ozuna, LENCHO Moreno, PT [facility] 01-09-2023 History of Present illness Narrative Episode Visit Count: 6 Therapist That Will Accept/Oversee The Plan Of Care: Alissa Ware Start of Care Date: 12/06/22 Onset Date: 12/06/21 (Continuously for almost a year. Before that it was off and on.) Plan of Care Certification Date: 12/06/22 Next Certification Due Date: 02/05/23 Patient Identified by Name and Date of : Yes REHABILITATION AND SPORTS THERAPY PHYSICAL THERAPY TREATMENT NOTE ASSESSMENT: Maryanne Minaya tolerated the session with decreased symptoms. She demonstrated improvements in time it took for pain to decrease. The patient will continue to benefit from ongoing skilled physical therapy to progress toward set goals. PLAN FOR NEXT VISIT: Consider trying a small amount of retro walking on treadmill to facilitate lumbar extension. SUBJECTIVE: Patient Reason for Visit: Pt reports that she s feeling a little bit better than at previous session. Pt feels that her sitting posture is affecting her symptoms as she is leaning to one side to get off of sciatic nerve on left leg. Pt presents without AD. Pain: Pain Pain Level: 4 Pain Location: Buttocks - Left, Low Back/Lumbar Spine - Left, Low Back/Lumbar Spine- Midline, Low Back/Lumbar Spine - Right Description: Stabbing Frequency: Continuous Post Treatment Pain Post Treatment Pain Level: 0 OBJECTIVE MEASURES WITH LEVEL OF FUNCTION: TREATMENT: Therapeutic Exercise: 1: prone lying x 7 minutes (pain decreased slightly) 2: prone prop x 5 minutes (no change with pain) 3: *Seated piriformis stretch 3x30 seconds B Skilled Intervention: Patient was educated in proper exercise technique and purpose for exercises. Skilled judgment was provided in selection of appropriate interventions. Correct performance of therapeutic exercises was facilitated with verbal and visual cuing. Manual Therapy: 1: Foam roller to lower thoracic, lumbar, and gluteal musculature x 15min with pt in prone lying during this time. Skilled Intervention: Manual skills to improve joint mobility, ROM, and decrease pain. Utilized anatomy knowledge of the therapist, and assessment of patient's response to intervention. Billing Therapeutic Exercise Treatment Minutes: 25 Manual TherapyTreatment Minutes: 15 Total Treatment Time Minutes (timed/untimed): 40 LENCHO Clinton PT documented in this encounter [facility] 01-06-2023 Note HNO ID: [id number] Author: Alissa Ware PT Service: ? Author Type: Physical Therapist Type: Progress Notes Filed: 01/06/2023 12:36 PM Note Text: Episode Visit Count: 5 Therapist That Will Accept/Oversee The Plan Of Care: Alissa Ware Start of Care Date: 12/06/22 Onset Date: 12/06/21 (Continuously for almost a year. Before that it was off and on.) Plan of Care Certification Date: 12/06/22 Next Certification Due Date: 02/05/23 Patient Identified by Name and Date of : Yes REHABILITATION AND SPORTS THERAPY PHYSICAL THERAPY PROGRESS REPORT PLAN OF CARE UPDATE: Assessment: Maryanne Minaya demonstrates difficulty with rising from a chair, standing, walking, and bending. She has progressed toward goals initially, but over the weekend had an exacerbation of symptoms. Patient continues to present with impairments in gait, overall function, range of motion, and strength that interfere with walking, walking in the community, bending, cleaning, standing . Current prognosis is Good due to: current objective clinical presentation, good overall health status, within-session changes, good support system/ coping skills . Pt demonstrated initial favorable response to treatment noting improvements in pain and overall function. Two days ago she woke up and reports increased pain that has not fully resolved. Pt tolerated today's treatment fairly well and was able to reduce pain intensity rating by 2 points and noted centralization of symptom location. She demonstrates improved posture and verbalizes postural correction during various activities throughout the day. She will benefit from continued skilled therapy services to meet the updated goals for this plan of care as noted below. Goals for Episode of Care: created on 12/06/22 through 02/05/23 Goals updated on 01/06/2023. Independent in home exercises. (Met) Patient will decrease pain rating by 2 points to meet minimal clinical important difference for numeric pain rating scale. (Not Met)- previous improvement, now increased again Restore pain-free lumbar ROM to flexion fingertips to distal tibias/ankles and symmetrical lateral flexion to allow for improved mobility of spine and function. (Not Met) Stand / Walk without pain/symptoms. (Not Met) Maintain proper sitting posture throughout session (Met) Knowledgeable regarding prophylaxis. (Partially Met)- pt performing HEP and good postural correction independently Patient will increase strength of core trunk to 4+ to 5/5 to allow for improve gait mechanics/gait pattern, improve ability to complete ADLs, and decrease pain. (Not assessed today.) Patient Goals: To be able to not have all this pain all the time. To get up and walk, and without excrutiating pain. Planned Interventions, Frequency, and Duration: 2x/week, 4 weeks Total Number of Visits Planned: 8 Patient to be seen for Therapeutic exercise (26615), Neuromuscular re-education (70817), Manual therapy (13960), Patient/Family/Caregiver Education, Ultrasound ([id number]) PLAN FOR NEXT VISIT: Resume exercises per tolerance, continue with prone based positions and exercise, may continue with foam roller per spasming/soft tissue restrictions. SUBJECTIVE: Patient Reason for Visit: Pt states she was doing better and then woke up Friday morning and had increased pain in back and L buttock area. Notes it is a little better today, but was in tears on Friday and had to cancel plans d/t difficulty even walking, or moving around at all. Notes feels like muscle spasm if stays still too long. Functional Limitations: walking, walking in the community, bending, cleaning, standing Pain: Pain Pain Level: 7 Pain Location: Buttocks - Left, Low Back/Lumbar Spine - Left, Low Back/Lumbar Spine- Midline, Low Back/Lumbar Spine - Right Description: Aching ( If turns wrong way it's sharp, deep pain. ) Frequency: Continuous Post Treatment Pain Post Treatment Pain Level: 5 Post Treatment Pain Location: ( More towards/around the tailbone area. ) Post Treatment Pain Description: ( It's eased up a little now. ) PROMIS Scales Higher is Better 01/05/2023 2022 03/10/2022 Phys Func - Score 36 (moderate dysfunction) 37 (moderate dysfunction) 39 (moderate dysfunction) Phys Func - Percentile 8 % 10 % 14 % Self-Eff Symptom - Score 46 (Average) 41 (Average) 38 (Low) Self-Eff Symptom - Percentile 34 % 18 % 12 % T-scores: mean of general population = 50. 5 points is clinically meaningfully difference Percentiles provide an indication of how the patient's score ranks in relation to the general population. Higher percentile rankings indicate better function/quality of life. 50th percentile is the average of the general population and indicates half of respondents had a worse score. OBJECTIVE MEASURES WITH LEVEL OF FUNCTION: Gait Gait: Independent Gait Device: None, Cane ((straight cane after instruction)) Gait Observation: P (more content not included)... [facility] 01-03-2023 Note HNO ID: [id number] Author: Alissa Ware PT Service: ? Author Type: Physical Therapist Type: Progress Notes Filed: 01/03/2023 12:34 PM Note Text: Episode Visit Count: 4 Therapist That Will Accept/Oversee The Plan Of Care: ChazPriyaAlissa Start of Care Date: 12/06/22 Onset Date: 12/06/21 (Continuously for almost a year. Before that it was off and on.) Plan of Care Certification Date: 12/06/22 Next Certification Due Date: 02/05/23 Patient Identified by Name and Date of : Yes REHABILITATION AND SPORTS THERAPY PHYSICAL THERAPY TREATMENT NOTE ASSESSMENT: Maryanne Minaya tolerated the session with decreased symptoms. She demonstrated improvements in endurance with iso abs in sitting. The patient will continue to benefit from ongoing skilled physical therapy to progress toward set goals. PLAN FOR NEXT VISIT: Advance seated core strenghtening exercises. Work on bending/ squatting techniqes for functional tasks. Consider trying sidelying hip exercises. SUBJECTIVE: Patient Reason for Visit: Pt reports that almost a week ago she was walking her dog and he started to get away from her and she stepped on the leash and then fell and hit her left low back. Pt states her back is not hurting on the L side, but seems to having catching sensation on R side with walking or standing and RLE gives out . Pain: Pain Pain Level: 4 Pain Location: Low Back/Lumbar Spine - Left, Buttocks - Left, Hip - Left, Thigh - Left Frequency: Intermittent Post Treatment Pain Post Treatment Pain Level: 1 Post Treatment Pain Location: Low Back/Lumbar Spine - Left, Hip - Left, Buttocks - Left OBJECTIVE MEASURES WITH LEVEL OF FUNCTION: Pt able to maintain core activation with alt marching. TREATMENT: Therapeutic Exercise: 1: prone lying x 5 min 2: prone prop x 5 minutes, and intermittent between sets of press ups 3: Prone press ups 5x5 (rest between sets, pain decerased to 1/10) 4: Seated isometrci abdominals 1x10 5: Seated isometric abdominals with alt marching 2x10 B Skilled Intervention: Patient was educated in proper exercise technique and purpose for exercises. Skilled judgment was provided in selection of appropriate interventions. Correct performance of therapeutic exercises was facilitated with verbal and visual cuing. Manual Therapy: 1: Foam roller to R lumbar, posterior and lateral hip, and buttocks, proximal hamstring musculature to address soft tissue restrictions and reduce pain x 8 min. Pt in prone lying during this time. (Pt had no pain after foam roller) Skilled Intervention: Manual skills to improve joint mobility, ROM, and decrease pain. Utilized anatomy knowledge of the therapist, and assessment of patient's response to intervention. Billing Therapeutic Exercise Treatment Minutes: 35 Manual TherapyTreatment Minutes: 8 Total Treatment Time Minutes (timed/untimed): 43 Tiffanie Laith, INVESTMENT PROFESSIONAL Alissa Ware PT [facility] 12-25-2022 Note HNO ID: [id number] Author: Alissa Ware PT Service: ? Author Type: Physical Therapist Type: Progress Notes Filed: 12/25/2022 10:35 AM Note Text: Episode Visit Count: 3 Therapist That Will Accept/Oversee The Plan Of Care: Alissa Ware Start of Care Date: 12/06/22 Onset Date: 12/06/21 (Continuously for almost a year. Before that it was off and on.) Plan of Care Certification Date: 12/06/22 Next Certification Due Date: 02/05/23 Patient Identified by Name and Date of : Yes REHABILITATION AND SPORTS THERAPY PHYSICAL THERAPY TREATMENT NOTE ASSESSMENT: Maryanne Minaya tolerated the session with increased symptoms and decreased symptoms. She demonstrated improvements in reports of pain intensity and centralization, and lumbar posture (mostly in sitting). The patient will continue to benefit from ongoing skilled physical therapy to progress toward set goals. PLAN FOR NEXT VISIT: Continue with prone progresison exercises. May add core strengthening exercises. Continue with manual techniques using foam roller as needed. SUBJECTIVE: Patient Reason for Visit: Pt reports she is feeling much better. She notes the pain seems to hit her in the evenings. She notes the exercises are fantastic in that they really are helpful in reducing the pain. Pain: Pain Pain Level: 5 Pain Location: Low Back/Lumbar Spine - Left, Buttocks - Left, Hip - Left, Thigh - Left Description: Aching ( Irritated ) Frequency: Intermittent Post Treatment Pain Post Treatment Pain Level: 4 Post Treatment Pain Location: Low Back/Lumbar Spine - Left, Hip - Left, Buttocks - Left OBJECTIVE MEASURES WITH LEVEL OF FUNCTION: LE Flexibility R SLR Flexibility: 60 deg (end range pulling/stretching ) L SLR Flexibility: 45deg (end range pulling back of leg only) TREATMENT: Therapeutic Exercise: 1: prone lying x 5 min 2: prone prop x 5 minutes, and intermittent between sets of press ups 3: Prone press ups 9x5 (rest or other exercise between sets) 4: prone hip extensions 2 x 5 L , 1 x 10 R (Last set caused increased pain L buttock that eventually settled down again after prone props and press ups.) 5: *seated isometric abdominals (TA) 5 sec holds x 10 Skilled Intervention: Patient was educated in proper exercise technique and purpose for exercises. Reviewed and educated patient on additions/changes for home exercise program as above (*). Skilled judgment was provided in selection of appropriate interventions. Provided written instruction for home exercise program to facilitate proper performance and compliance. Correct performance of therapeutic exercises was facilitated with verbal and visual cuing. Patient education as noted. Manual Therapy: 1: Foam roller to R lumbar, posterior and lateral hip, and buttocks, proximal hamstring musculature to address soft tissue restrictions and reduce pain x 8 min. Pt in prone lying during this time. Skilled Intervention: Manual skills to improve joint mobility, ROM, and decrease pain. Utilized anatomy knowledge of the therapist, and assessment of patient's response to intervention. Neuromuscular Re-Education: 1: Discussed sitting posture and pt notes she is using a pillow or towel roll when sitting now and this is really helpful. She notes she is more aware of her back position throughout the day. Pt notes she is no longer getting woke up at night d/t the pain. Discussed sleeping position and pt feels that once she is lying prone, she tends to stay there and sleep well the rest of the night. Skilled Intervention: Education in sitting posture using a lumbar roll and slouch/correction for body awareness. Education in proprioceptive/kinesthetic awareness during sitting and sleeping posture/position. Patient education as noted. Education and demonstration for posture and positioning for pain management. Billing Therapeutic Exercise Treatment Minutes: 30 Manual TherapyTreatment Minutes: 8 Neuromuscular Re-Education Treatment Minutes: 7 Total Treatment Time Minutes (timed/untimed): 45 Alissa Ware, PT [facility] 12-25-2022 History of Present illness Narrative Episode Visit Count: 3 Therapist That Will Accept/Oversee The Plan Of Care: Alissa Ware Start of Care Date: 12/06/22 Onset Date: 12/06/21 (Continuously for almost a year. Before that it was off and on.) Plan of Care Certification Date: 12/06/22 Next Certification Due Date: 02/05/23 Patient Identified by Name and Date of : Yes REHABILITATION AND SPORTS THERAPY PHYSICAL THERAPY TREATMENT NOTE ASSESSMENT: Maryanne Minaya tolerated the session with increased symptoms and decreased symptoms. She demonstrated improvements in reports of pain intensity and centralization, and lumbar posture (mostly in sitting). The patient will continue to benefit from ongoing skilled physical therapy to progress toward set goals. PLAN FOR NEXT VISIT: Continue with prone progresison exercises. May add core strengthening exercises. Continue with manual techniques using foam roller as needed. SUBJECTIVE: Patient Reason for Visit: Pt reports she is feeling much better. She notes the pain seems to hit her in the evenings. She notes the exercises are fantastic in that they really are helpful in reducing the pain. Pain: Pain Pain Level: 5 Pain Location: Low Back/Lumbar Spine - Left, Buttocks - Left, Hip - Left, Thigh - Left Description: Aching ( Irritated ) Frequency: Intermittent Post Treatment Pain Post Treatment Pain Level: 4 Post Treatment Pain Location: Low Back/Lumbar Spine - Left, Hip - Left, Buttocks - Left OBJECTIVE MEASURES WITH LEVEL OF FUNCTION: LE Flexibility R SLR Flexibility: 60 deg (end range pulling/stretching ) L SLR Flexibility: 45deg (end range pulling back of leg only) TREATMENT: Therapeutic Exercise: 1: prone lying x 5 min 2: prone prop x 5 minutes, and intermittent between sets of press ups 3: Prone press ups 9x5 (rest or other exercise between sets) 4: prone hip extensions 2 x 5 L , 1 x 10 R (Last set caused increased pain L buttock that eventually settled down again after prone props and press ups.) 5: *seated isometric abdominals (TA) 5 sec holds x 10 Skilled Intervention: Patient was educated in proper exercise technique and purpose for exercises. Reviewed and educated patient on additions/changes for home exercise program as above (*). Skilled judgment was provided in selection of appropriate interventions. Provided written instruction for home exercise program to facilitate proper performance and compliance. Correct performance of therapeutic exercises was facilitated with verbal and visual cuing. Patient education as noted. Manual Therapy: 1: Foam roller to R lumbar, posterior and lateral hip, and buttocks, proximal hamstring musculature to address soft tissue restrictions and reduce pain x 8 min. Pt in prone lying during this time. Skilled Intervention: Manual skills to improve joint mobility, ROM, and decrease pain. Utilized anatomy knowledge of the therapist, and assessment of patient's response to intervention. Neuromuscular Re-Education: 1: Discussed sitting posture and pt notes she is using a pillow or towel roll when sitting now and this is really helpful. She notes she is more aware of her back position throughout the day. Pt notes she is no longer getting woke up at night d/t the pain. Discussed sleeping position and pt feels that once she is lying prone, she tends to stay there and sleep well the rest of the night. Skilled Intervention: Education in sitting posture using a lumbar roll and slouch/correction for body awareness. Education in proprioceptive/kinesthetic awareness during sitting and sleeping posture/position. Patient education as noted. Education and demonstration for posture and positioning for pain management. Billing Therapeutic Exercise Treatment Minutes: 30 Manual TherapyTreatment Minutes: 8 Neuromuscular Re-Education Treatment Minutes: 7 Total Treatment Time Minutes (timed/untimed): 45 Alissa Ware PT documented in this encounter [facility] 12-10-2022 Note HNO ID: [id number] Author: Marcelle Moreno PT Service: ? Author Type: Physical Therapist Type: Progress Notes Filed: 12/10/2022 4:27 PM Note Text: Episode Visit Count: 2 Therapist That Will Accept/Oversee The Plan Of Care: Alissa Ware Start of Care Date: 12/06/22 Onset Date: 12/06/21 (Continuously for almost a year. Before that it was off and on.) Plan of Care Certification Date: 12/06/22 Next Certification Due Date: 02/05/23 Patient Identified by Name and Date of : Yes REHABILITATION AND SPORTS THERAPY PHYSICAL THERAPY TREATMENT NOTE ASSESSMENT: Maryanne Minaya tolerated the session with decreased symptoms. She demonstrated improvements in lumbar extension with continued reps of press ups. The patient will continue to benefit from ongoing skilled physical therapy to progress toward set goals. PLAN FOR NEXT VISIT: Asses response to prone progression. possibly try PNE. SUBJECTIVE: Patient Reason for Visit: Pt reports that she is feeling okay today.Pt states compliance with HEP stating they helped a little. Pt using towel roll with sitting. Pain: Pain Pain Level: 5 Pain Location: Low Back/Lumbar Spine - Left, Buttocks - Left, Hip - Left, Thigh - Left, Knee - Left Description: Aching Frequency: Intermittent (No pain when lying on stomach in bed.) Post Treatment Pain Post Treatment Pain Level: 2 Post Treatment Pain Location: Low Back/Lumbar Spine - Left, Hip - Left, Thigh - Left OBJECTIVE MEASURES WITH LEVEL OF FUNCTION: Pain centralized with continued reps of prone press ups TREATMENT: Therapeutic Exercise: 1: *prone lying x 5 min 2: *prone prop x 5 minutes, and intermittent between sets of press ups 3: *Prone press ups 5x5 (decreased pain to 2/10 aind increasd lumbar extension noted with continue reps) 4: *Advised not to do SKC as pt reported that started to hurt her back at home Skilled Intervention: Patient was educated in proper exercise technique and purpose for exercises. Reviewed and educated patient on additions/changes for home exercise program as above (*). Skilled judgment was provided in selection of appropriate interventions. Provided written instruction for home exercise program to facilitate proper performance and compliance. Correct performance of therapeutic exercises was facilitated with verbal and visual cuing. Billing Therapeutic Exercise Treatment Minutes: 45 Total Treatment Time Minutes (timed/untimed): 45 Tiffanie Ozuna, LENCHO Moreno, PT [facility] 12-10-2022 History of Present illness Narrative Episode Visit Count: 2 Therapist That Will Accept/Oversee The Plan Of Care: Alissa Ware Start of Care Date: 12/06/22 Onset Date: 12/06/21 (Continuously for almost a year. Before that it was off and on.) Plan of Care Certification Date: 12/06/22 Next Certification Due Date: 02/05/23 Patient Identified by Name and Date of : Yes REHABILITATION AND SPORTS THERAPY PHYSICAL THERAPY TREATMENT NOTE ASSESSMENT: Maryanne Sylvain Minaya tolerated the session with decreased symptoms. She demonstrated improvements in lumbar extension with continued reps of press ups. The patient will continue to benefit from ongoing skilled physical therapy to progress toward set goals. PLAN FOR NEXT VISIT: Asses response to prone progression. possibly try PNE. SUBJECTIVE: Patient Reason for Visit: Pt reports that she is feeling okay today.Pt states compliance with HEP stating they helped a little. Pt using towel roll with sitting. Pain: Pain Pain Level: 5 Pain Location: Low Back/Lumbar Spine - Left, Buttocks - Left, Hip - Left, Thigh - Left, Knee - Left Description: Aching Frequency: Intermittent (No pain when lying on stomach in bed.) Post Treatment Pain Post Treatment Pain Level: 2 Post Treatment Pain Location: Low Back/Lumbar Spine - Left, Hip - Left, Thigh - Left OBJECTIVE MEASURES WITH LEVEL OF FUNCTION: Pain centralized with continued reps of prone press ups TREATMENT: Therapeutic Exercise: 1: *prone lying x 5 min 2: *prone prop x 5 minutes, and intermittent between sets of press ups 3: *Prone press ups 5x5 (decreased pain to 2/10 aind increasd lumbar extension noted with continue reps) 4: *Advised not to do SKC as pt reported that started to hurt her back at home Skilled Intervention: Patient was educated in proper exercise technique and purpose for exercises. Reviewed and educated patient on additions/changes for home exercise program as above (*). Skilled judgment was provided in selection of appropriate interventions. Provided written instruction for home exercise program to facilitate proper performance and compliance. Correct performance of therapeutic exercises was facilitated with verbal and visual cuing. Billing Therapeutic Exercise Treatment Minutes: 45 Total Treatment Time Minutes (timed/untimed): 45 LENCHO Clinton PT documented in this encounter [facility] 12-06-2022 Note HNO ID: [id number] Author: Alissa Ware PT Service: ? Author Type: Physical Therapist Type: Progress Notes Filed: 12/06/2022 4:40 PM Note Text: Episode Visit Count: 1 Therapist That Will Accept/Oversee The Plan Of Care: Alissa Ware Start of Care Date: 12/06/22 Onset Date: 12/06/21 (Continuously for almost a year. Before that it was off and on.) Plan of Care Certification Date: 12/06/22 Next Certification Due Date: 02/05/23 Patient Identified by Name and Date of : Yes REHABILITATION AND SPORTS THERAPY PHYSICAL THERAPY EVALUATION PLAN OF CARE: Assessment: Maryanne Minaya presents with diagnosis of L hip pain and LS radiculopathy that interferes with walking, walking in the community, cleaning, bending, standing . She presents with impairments in gait, overall function, posture, range of motion, and core strength. PROMIS? (Patient-Reported Outcomes Measurement Information System) scores were reviewed and physical function domain and self efficacy domain identified as a rehabilitation concern. Prognosis for therapy is Good due to: current objective clinical presentation, good overall health status, within-session changes, good support system/ coping skills . She will benefit from skilled therapy services to meet the goals established for this plan of care as noted below. Classification Low Back Pain Subgroup Classification: Specific exercise subgroup: recommended visits 8. Specific Exercies Subgroup Classification based on: directional preference Goals for Episode of Care: created on 12/06/22 through 02/05/23 Independent in home exercises. Patient will decrease pain rating by 2 points to meet minimal clinical important difference for numeric pain rating scale. Restore pain-free lumbar ROM to flexion fingertips to distal tibias/ankles and symmetrical lateral flexion to allow for improved mobility of spine and function. Stand / Walk without pain/symptoms. Maintain proper sitting posture throughout session Knowledgeable regarding prophylaxis. Patient will increase strength of core trunk to 4+ to 5/5 to allow for improve gait mechanics/gait pattern, improve ability to complete ADLs, and decrease pain. Patient Goals: To be able to not have all this pain all the time. To get up and walk, and without excrutiating pain. Planned Interventions, Frequency, and Duration: Current Frequency: 2x/week Duration: 8 weeks Total Number of Visits Planned: 16 Planned Treatment Interventions: Therapeutic exercise (10721), Neuromuscular re-education (15160), Manual therapy (14989), Patient/Family/Caregiver Education, Ultrasound (75079) PLAN FOR NEXT VISIT: Assess symptom response following treatment and HEP. Continue with extension based exercises with core strengthening and postural correction. May add manual techniques or ultrasound for localized pain control as needed. Patient demonstrates good understanding of plan of care and treatment. The above goals and plan of care were discussed and agreed upon by patient/family. SUBJECTIVE: Maryanne Minaya is a 52 year old female seen today for Pt notes she has been taking Naproxyn daily. Pain is a little better, cut still takes a while to get moving. More painful when walking around. Pain starts in L mid to low back and follows down back of hip and thigh to knee. Used to be just into the hip/lateral thigh, but lately has been more into lower thigh and knee. Pt also notes her neuropathy has flared up and recently went off one of her medicaitons and her sugar is stabilizing. Patient Goals: To be able to not have all this pain all the time. To get up and walk, and without excrutiating pain. Functional Limitations: walking, walking in the community, cleaning, bending, standing Prior Level of Function: Independent without limitations Relevant History Employment: Unemployed Intake Information: Prescription present Previous Treatment: NSAIDs , Physical Therapy Spine History Pain is Better Always: (prone lying) Sleep Affected by Pain: Not affected by pain Pain: Pain Pain Level: 7 Pain Location: Low Back/Lumbar Spine - Left, Buttocks - Left, Hip - Left, Thigh - Left, Knee - Left Description: Burning (sometimes like a knife) Frequency: Intermittent (No pain when lying on stomach in bed.) Post Treatment Pain Post Treatment Pain Level: 6 Post Treatment Pain Location: Low Back/Lumbar Spine - Left, Hip - Left, Thigh - Left PROMIS Scales Higher is Better 2022 03/10/2022 Phys Func - Score 37 (moderate dysfunction) 39 (moderate dysfunction) Phys Func - Percentile 10 % 14 % Self-Eff Symptom - Score 41 (Average) 38 (Low) Self-Eff Symptom - Percentile 18 % 12 % T-scores: mean of general population = 50. 5 points is clinically meaningfully difference Percentiles provide an indication of how the patient's score ranks in relation to the general population. Higher percentile rankings indicate better fun (more content not included)... [facility] 12-06-2022 History of Present illness Narrative Episode Visit Count: 1 Therapist That Will Accept/Oversee The Plan Of Care: Alissa Ware Start of Care Date: 12/06/22 Onset Date: 12/06/21 (Continuously for almost a year. Before that it was off and on.) Plan of Care Certification Date: 12/06/22 Next Certification Due Date: 02/05/23 Patient Identified by Name and Date of : Yes REHABILITATION AND SPORTS THERAPY PHYSICAL THERAPY EVALUATION PLAN OF CARE: Assessment: Maryanne Minaya presents with diagnosis of L hip pain and LS radiculopathy that interferes with walking, walking in the community, cleaning, bending, standing . She presents with impairments in gait, overall function, posture, range of motion, and core strength. PROMIS (Patient-Reported Outcomes Measurement Information System) scores were reviewed and physical function domain and self efficacy domain identified as a rehabilitation concern. Prognosis for therapy is Good due to: current objective clinical presentation, good overall health status, within-session changes, good support system/ coping skills . She will benefit from skilled therapy services to meet the goals established for this plan of care as noted below. Classification Low Back Pain Subgroup Classification: Specific exercise subgroup: recommended visits 8. Specific Exercies Subgroup Classification based on: directional preference Goals for Episode of Care: created on 12/06/22 through 02/05/23 Independent in home exercises. Patient will decrease pain rating by 2 points to meet minimal clinical important difference for numeric pain rating scale. Restore pain-free lumbar ROM to flexion fingertips to distal tibias/ankles and symmetrical lateral flexion to allow for improved mobility of spine and function. Stand / Walk without pain/symptoms. Maintain proper sitting posture throughout session Knowledgeable regarding prophylaxis. Patient will increase strength of core trunk to 4+ to 5/5 to allow for improve gait mechanics/gait pattern, improve ability to complete ADLs, and decrease pain. Patient Goals: To be able to not have all this pain all the time. To get up and walk, and without excrutiating pain. Planned Interventions, Frequency, and Duration: Current Frequency: 2x/week Duration: 8 weeks Total Number of Visits Planned: 16 Planned Treatment Interventions: Therapeutic exercise (60395), Neuromuscular re-education (22614), Manual therapy (70955), Patient/Family/Caregiver Education, Ultrasound (56476) PLAN FOR NEXT VISIT: Assess symptom response following treatment and HEP. Continue with extension based exercises with core strengthening and postural correction. May add manual techniques or ultrasound for localized pain control as needed. Patient demonstrates good understanding of plan of care and treatment. The above goals and plan of care were discussed and agreed upon by patient/family. SUBJECTIVE: Maraynne Minaya is a 52 year old female seen today for Pt notes she has been taking Naproxyn daily. Pain is a little better, cut still takes a while to get moving. More painful when walking around. Pain starts in L mid to low back and follows down back of hip and thigh to knee. Used to be just into the hip/lateral thigh, but lately has been more into lower thigh and knee. Pt also notes her neuropathy has flared up and recently went off one of her medicaitons and her sugar is stabilizing. Patient Goals: To be able to not have all this pain all the time. To get up and walk, and without excrutiating pain. Functional Limitations: walking, walking in the community, cleaning, bending, standing Prior Level of Function: Independent without limitations Relevant History Employment: Unemployed Intake Information: Prescription present Previous Treatment: NSAIDs , Physical Therapy Spine History Pain is Better Always: (prone lying) Sleep Affected by Pain: Not affected by pain Pain: Pain Pain Level: 7 Pain Location: Low Back/Lumbar Spine - Left, Buttocks - Left, Hip - Left, Thigh - Left, Knee - Left Description: Burning (sometimes like a knife) Frequency: Intermittent (No pain when lying on stomach in bed.) Post Treatment Pain Post Treatment Pain Level: 6 Post Treatment Pain Location: Low Back/Lumbar Spine - Left, Hip - Left, Thigh - Left PROMIS Scales Higher is Better 2022 03/10/2022 Phys Func - Score 37 (moderate dysfunction) 39 (moderate dysfunction) Phys Func - Percentile 10 % 14 % Self-Eff Symptom - Score 41 (Average) 38 (Low) Self-Eff Symptom - Percentile 18 % 12 % T-scores: mean of general population = 50. 5 points is clinically meaningfully difference Percentiles provide an indication of how the patient's score ranks in relation to the general population. Higher percentile rankings indicate better function/quality of life. 50th percentile is the average of the general population and indicates half of respondents had a worse score. OBJECTIVE MEASURES WITH LEVEL OF FUNCTION: Lumbar Spine AROM Lumbar Flexion: (fingertips to mid tibias, pain but it feels good ) Lumbar Extension: Minimal limitation ( It feels good, but a little pain. at end range) Lumbar R Side-Bend: (35deg) Lumbar L Side-Bend: (25 deg, minimal pain) Repeated Test Movements - Lumbar REIL - Symptoms During: (Prone lying decreased pain intensity and centralized from knee to mid-thigh.) LE Flexibility Flexibility: Straight Leg Raise R SLR Flexibility: 45deg L SLR Flexibility: 30deg, pain LE Strength L LE Strength: Attempted hip strength, but with seated hip flexion resistance caused significant pain into L hip, thigh and knee so discontinued. Gait Gait: Independent Gait Deviations: Left Lower Extremity Gait Deviations Left Lower Extremity: Stance time decreased, Step length decreased, Push off during terminal stance decreased, Lacks hip extension beyond mid-stance, Heel strike during initial stance decreased Gait Observation: antalgic pattern L LE Education: Education Learning Preferences: Demonstration, Explanation Barriers: None Learning/educational needs: Home exercise program, Plan of Care, Posture Education Provided: Yes, see treatment interventions for education provided Education Provided To: Patient Education Mode/Type: Demonstration, Explanation/Discussion, Literature/Printed Materials, Performance Response to Education/Teach Back: States/Identifies, Return Demonstration TREATMENT: PT Treatment Interventions: Therapeutic Exercise, Neuromuscular Re-Education Evaluation Therapeutic Exercise: 1: *piriformis stretches 3 x 30 sec holds 2: *prone lying x 5 min 3: *seated TA 5 sec holds x 10 4: *SKC 2 x 30 sec holds Skilled Intervention: Patient was educated in proper exercise technique and purpose for exercises. Skilled judgment was provided in selection of appropriate interventions. Provided written instruction for home exercise program to facilitate proper performance and compliance. Correct performance of therapeutic exercises was facilitated with verbal and visual cuing. Patient education as noted. Neuromuscular Re-Education: 1: Educated pt regarding anatomy of hip and lumbar spine as it relates to her symptoms. Instructed in neutral spine positions and seated posture with lumbar support (pillow, towel roll). Skilled Intervention: Education in sitting posture using a lumbar roll and slouch/correction for body awareness. Education in proprioceptive/kinesthetic awareness during sitting. Education and demonstration for posture and positioning for tone management. Patient education as noted. Education and demonstration for posture and positioning for pain management.^ Billing * Evaluation Low Complexity: 1 Unit Therapeutic Exercise Treatment Minutes: 20 Neuromuscular Re-Education Treatment Minutes: 15 Total Treatment Time Minutes (timed/untimed): 50 Alissa Ware PT documented in this encounter [facility] 11-25-2022 Note HNO ID: [id number] Author: Tammy Zhou PA-C Service: ? Author Type: Physician Organ Grinder Type: Progress Notes Filed: 11/25/2022 11:38 AM Note Text: Tammy Zhou PA-C Department of Orthopaedics Orthopa[facility] [address] [place] [address] Dept: [phone] Dept November 25, [address] Danielle Sandoval CNP for an opinion regarding left hip pain. My final recommendations will be communicated back to the requesting physician by way of shared Medical record or letter to requesting physician via [place] mail. CHIEF COMPLAINT: New of the Left Hip and Referred by Danielle Sandoval Ms. Maryanne Minaya is a 51 year old female who presents with pain in her left buttock region that has been radiating down the posterior aspect of her thigh. Pain is a 7 out of 10 sharp, radiating, burning. She states that she was seeing the chiropractor which was somewhat helpful, unfortunately due to transportation reason she has not been able to return to them. She is also been taking naproxen which is somewhat beneficial. She is only taking naproxen about once per week. She is a diabetic, she states that her most recent hemoglobin A1c was 8.7, unfortunately the test is not available for my review. Patient is eager to get back into working out, she was doing some walking and did lose some weight. 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 ASSESSMENT: M54.17 Radiculopathy, lumbosacral region (primary encounter diagnosis) M25.552 Left hip pain PLAN: Hip exam is benign, her hip x-rays are also within normal limits. She certainly has some sciatic pain. We discussed that this may be related to her elevated blood sugars. We will get her into some physical therapy as it may be more convenient than seeing the chiropractor. I would also like her to be more consistent with the naproxen, we discussed taking it daily for the next 2 weeks. If pain persist we can get her into see one of our spine providers. Patient agrees to plan. Ms. Maryanne Minaya was advised as to contrast therapies and/or to take analgesics/anti-inflammatories as needed and all contraindications were reviewed. OBJECTIVE: Ms. Maryanne Minaya is a pleasant 51 year old in no apparent distress. Gen:LMP 09/17/2019 nl development, obese, no deformities ENT: Normocephalic, normal hearing, moist mucosa CV: Pulses:DP/PT= 2+ and symmetric, capillary refill < 2 secs, no peripheral edema/varicosities Skin: no rash, bruising or lesions. Good turgor. Psych: cooperative and appropriate, alert and oriented x 3, good mood and affect. Musculoskeletal: HIP EXAM: Left: ROM: Extension: Normal Flexion: 110 degrees Internal Rotation: 30 degrees External Rotation: 30 degrees Abduction: 40 degrees Adduction: 30 degrees Strength: Abduction 5/5 and Flexion 5/5 Palpation: Diffusely tender. Tender over the left SI joint, left ASIS and left greater trochanter. Log roll: non-painful. Straight leg raise: Negative Neurovascular Status: Sensation Intact and Moves foot and ankle up AND down Imaging: IMPRESSION: NEGATIVE HIP. Packerhead Machine Operator: BARTOLO Transcribe Date/Time: Mar 01 2022 3:10P Dictated by : MAGGY TOUSSAINT MD This examination was interpreted and the report reviewed and electronically signed by: MAGGY TOUSSAINT MD on Mar 01 2022 3:11PM EST Results-Findings * * *Final Report* * * DATE OF EXAM: Mar 01 2022 9:08AM WOX [id number] - XR HIP 3V PELV+ AP/LAT LT / PROCEDURE REASON: Left hip pain * * * * Physician Interpretation * * * * EXAMINATION: XR HIP 3V PELV+ AP/LAT LT HISTORY: Chronic left posterior to lateral hip pain increasing over the last several weeks. No injury. TECHNIQUE: XR HIP 3V PELV+ AP/LAT LT Laterality: LEFT Number of different views (projections): 3 M: XB_1 COMPARISON: There are no prior relevant examinations available for comparison within the [facility] Imaging Archives. FINDINGS: Supine radiograph of the pelvis as well as AP and frogleg views of the left hip demonstrate the bony pelvic ring intact. The hips are bilaterally symmetric without fracture or dislocation. No acute bony process is noted. The soft tissues are unremarkable. Supporting Subjective Information Below: Past Surgical History: PAST SURGICAL HISTORY Procedure Laterality Date AMPUTATION FOOT,TRANSMETATARSAL Right 06/15/2019 2nd toe APPENDECTOMY 2015 DANDC (MISSED AB 1ST TRIMESTER) EXCISION TONSIL LESIONS BILATERAL INSJ TUNNELED CVC W/O SUBQ PORT/FRANCHISE CONSULTANT AGE 6 YR/> 11/15/2020 LAPAROSCOPIC TUBAL LIGATION/RING/CLIP 12/2013 PAST SURGICAL HISTORY OF Right 04/02/2019 right great toe amputation Medications: Current Outpatient Medications Medication Sig diclofenac (VOLTAREN) 1 % topical gel apply 2 grams topically to affected area twi (more content not included)... [facility] 11-25-2022 Note HNO ID: [id number] Author: Gina Curtis Ma Service: ? Author Type: ? Type: Progress Notes Filed: 11/25/2022 11:38 AM Note Text: Patient presents with: Left Hip - New Referred by Danielle PULIDO RO[facility] INTAKE FLOWSHEET DATA Pain Pain Level: 7 Pain Location: Back-Lower Description: Radiating, Sharp, Spasm Duration Amount of Time: 24 Duration Units: Hours Intervention/Comfort measure: Medication Patient states she is having pain that is radiating from her waist to deep into her buttock. The pain has gotten worse in the past year. Taking Tylenol and Naproxen for the pain. X-rays done on 03/01/23. [facility] 11-25-2022 History of Present illness Narrative Tammy Zhou PA-C Department of Orthopaedics Orthopaedics [address] [facility] [address] Dept: [phone] Dept November 25, [address] Danielle Sandoval CNP for an opinion regarding left hip pain. My final recommendations will be communicated back to the requesting physician by way of shared Medical record or letter to requesting physician via [place] mail. CHIEF COMPLAINT: New of the Left Hip and Referred by Danielle Sandoval Ms. Maryanne Minaya is a 51 year old female who presents with pain in her left buttock region that has been radiating down the posterior aspect of her thigh. Pain is a 7 out of 10 sharp, radiating, burning. She states that she was seeing the chiropractor which was somewhat helpful, unfortunately due to transportation reason she has not been able to return to them. She is also been taking naproxen which is somewhat beneficial. She is only taking naproxen about once per week. She is a diabetic, she states that her most recent hemoglobin A1c was 8.7, unfortunately the test is not available for my review. Patient is eager to get back into working out, she was doing some walking and did lose some weight. 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 ASSESSMENT: M54.17 Radiculopathy, lumbosacral region (primary encounter diagnosis) M25.552 Left hip pain PLAN: Hip exam is benign, her hip x-rays are also within normal limits. She certainly has some sciatic pain. We discussed that this may be related to her elevated blood sugars. We will get her into some physical therapy as it may be more convenient than seeing the chiropractor. I would also like her to be more consistent with the naproxen, we discussed taking it daily for the next 2 weeks. If pain persist we can get her into see one of our spine providers. Patient agrees to plan. Ms. Maryanne Minaya was advised as to contrast therapies and/or to take analgesics/anti-inflammatories as needed and all contraindications were reviewed. OBJECTIVE: Ms. Maryanne Minaya is a pleasant 51 year old in no apparent distress. Gen:LMP 09/17/2019 nl development, obese, no deformities ENT: Normocephalic, normal hearing, moist mucosa CV: Pulses:DP/PT= 2+ and symmetric, capillary refill < 2 secs, no peripheral edema/varicosities Skin: no rash, bruising or lesions. Good turgor. Psych: cooperative and appropriate, alert and oriented x 3, good mood and affect. Musculoskeletal: HIP EXAM: Left: ROM: Extension: Normal Flexion: 110 degrees Internal Rotation: 30 degrees External Rotation: 30 degrees Abduction: 40 degrees Adduction: 30 degrees Strength: Abduction 5/5 and Flexion 5/5 Palpation: Diffusely tender. Tender over the left SI joint, left ASIS and left greater trochanter. Log roll: non-painful. Straight leg raise: Negative Neurovascular Status: Sensation Intact and Moves foot and ankle up & down Imaging: IMPRESSION: NEGATIVE HIP. Packerhead Machine Operator: BARTOLO Transcribe Date/Time: Mar 01 2022 3:10P Dictated by : MAGGY TOUSSAINT MD This examination was interpreted and the report reviewed and electronically signed by: MAGGY TOUSSAINT MD on Mar 01 2022 3:11PM EST Results-Findings * * *Final Report* * * DATE OF EXAM: Mar 01 2022 9:08AM WOX [id number] - XR HIP 3V PELV+ AP/LAT LT / PROCEDURE REASON: Left hip pain * * * * Physician Interpretation * * * * EXAMINATION: XR HIP 3V PELV+ AP/LAT LT HISTORY: Chronic left posterior to lateral hip pain increasing over the last several weeks. No injury. TECHNIQUE: XR HIP 3V PELV+ AP/LAT LT Laterality: LEFT Number of different views (projections): 3 M: XB_1 COMPARISON: There are no prior relevant examinations available for comparison within the [facility] Imaging Archives. FINDINGS: Supine radiograph of the pelvis as well as AP and frogleg views of the left hip demonstrate the bony pelvic ring intact. The hips are bilaterally symmetric without fracture or dislocation. No acute bony process is noted. The soft tissues are unremarkable. Supporting Subjective Information Below: Past Surgical History: PAST SURGICAL HISTORY Procedure Laterality Date AMPUTATION FOOT,TRANSMETATARSAL Right 06/15/2019 2nd toe APPENDECTOMY 2015 D&C (MISSED AB 1ST TRIMESTER) EXCISION TONSIL LESIONS BILATERAL INSJ TUNNELED CVC W/O SUBQ PORT/FRANCHISE CONSULTANT AGE 6 YR/> 11/15/2020 LAPAROSCOPIC TUBAL LIGATION/RING/CLIP 12/2013 PAST SURGICAL HISTORY OF Right 04/02/2019 right great toe amputation Medications: Current Outpatient Medications Medication Sig diclofenac (VOLTAREN) 1 % topical gel apply 2 grams topically to affected area twice a day levothyroxine (LEVOXYL) 75 mcg tablet TAKE 1 TABLET ON AN EMPTY STOMACH DAILY BUT TAKE 2 TABLETS ON FRIDAY FOR THYROID insulin glargine (LANTUS SOLOSTAR, BASAGLAR KWIKPEN) 100 unit/mL (3 mL) 50 Units. gabapentin (NEURONTIN) 600 mg tablet Take 1 tablet by mouth twice daily for 180 days. losartan (COZAAR) 50 mg tablet take 1 tablet by mouth once daily naproxen (NAPROSYN) 500 mg tablet take 1 tablet by mouth twice a day NEEDED FOR PAIN or inflammation with food meclizine (ANTIVERT) 25 mg tab Take 1 tablet by mouth twice daily. ergocalciferol 50,000 unit capsule (VITAMIN D2, DRISDOL) Take 1 capsule by mouth two times a week. TO BE TAKEN ORALLY DIRECTED. Take 1 tablet by mouth twice weekly [id number], then decrease to [address] (PROTONIX) 20 mg tablet Take 1 tablet by mouth twice daily. atorvastatin (LIPITOR) 80 mg tablet Take 1 tablet by mouth once daily. albuterol HFA (PROAIR HFA) 90 mcg/actuation inhaler Inhale 2 Puffs as instructed every 4 hours as needed. fluticasone (FLONASE) 50 mcg/actuation nasal spray Use 2 Sprays in each nostril once daily. Rinse mouth after use. insulin needles, DISPOSABLE, (PEN NEEDLE) 31 gauge x 5/16 1 Each three times daily. ondansetron orally disintegrating (ZOFRAN ODT) 4 mg disintegrating tablet Take 1 tablet by mouth every 6 hours as needed for Nausea/Vomiting. flash glucose scanning reader (FREESTYLE SOFI 14 DAY READER) [facility] to check blood sugars 4 times daily. flash glucose sensor (FREESTYLE SOFI 14 DAY SENSOR) kit Use to check blood sugars 4 times daily. biotin 1 mg cap Take 1 capsule by mouth once daily. alcohol swabs padm Apply 1 application to affected area four times daily. acetaminophen (TYLENOL) 500 mg tablet Take 1,000 mg by mouth every 4 hours as needed. DULoxetine (CYMBALTA) 60 mg capsule Take 60 mg by mouth once daily. Take 60 mg in the evening, along with 30 mg dose in the morning. OZEMPIC 0.25 mg or 0.5 mg(2 mg/1.5 mL) pen inject 0.5 milligrams subcutaneously every week (Patient not taking: Reported on 11/25/2022) insulin aspart U-100 (NOVOLOG FLEXPEN U-100 INSULIN) 100 unit/mL (3 mL) Inject insulin three times daily at first bite of food. Take 15 units with each meal blood sugar diagnostic (BLOOD GLUCOSE TEST) test strip TEST BLOOD SUGAR 3 TIMES PER DAY. DX: 250. Uncontrolled Diabetes Mellitus INSULIN DEP: yes CPAP Initiate Auto PAP @ 5-20 cm of water with humidification. Mask (per patient preference) optional chin strap (if indicated) , filters, tubing, humidifier and lifetime supplies. insulin aspart (NOVOLOG PENFILL U-100 INSULIN SUBCUTANEOUS) Inject 10-20 Units subcutaneously w MEALS. Sliding scale No current facility-administered medications for this visit. Allergies: Azithromycin, Clindamycin, Emycin [Erythromycin], and Vancomycin ROS: General (negative for fatigue, malaise, weight loss/gain) HEENT (negative for headache, earache, recent vision changes, sinus pain, sore throat) Respiratory (no recent shortness of breath, hemoptysis) CV (negative for chest tightness, palpitations) Musculoskeletal (see HPI) Psych (no depression, anxiety) This note was partially generated using [employer] voice recognition system, and there may be some incorrect words, spellings, and punctuation that were not noted in checking the note before saving. Tammy Zhou PA-C Patient presents with: Left Hip - New Referred by Danielle PULIDO [facility] INTAKE FLOWSHEET DATA Pain Pain Level: 7 Pain Location: Back-Lower Description: Radiating, Sharp, Spasm Duration Amount of Time: 24 Duration Units: Hours Intervention/Comfort measure: Medication Patient states she is having pain that is radiating from her waist to deep into her buttock. The pain has gotten worse in the past year. Taking Tylenol and Naproxen for the pain. X-rays done on 03/01/23. documented in this encounter [facility] 11-14-2022 Miscellaneous Notes Pharmacy asking to dispense a 100 g tube. Pt las seen 11/05/22 Next office visit 12/19/22 Please advise. Sirena Rene LPN documented in this encounter [facility] 11-05-2022 Note HNO ID: [id number] Author: Starr Garcia MD Service: ? Author Type: Physician Type: Progress Notes Filed: 11/05/2022 5:29 PM Note Text: Reason for Visit Patient presents with: Hospital F/U: abdomen wound- from a boil- improved Maryanne Minaya is a 51 year old female who presents here today for Above Complaints.. Health Maintenance COVID-19 VACCINE(1) DTAP,TDAP,TD(1 - Tdap) COLORECTAL CANCER SCREENING BP CONTROLLED (<130/80) HBA1C URINE ALBUMIN:CREATININE RATIO DIABETIC FOOT EXAM DEPRESSION ASSESSMENT MAMMOGRAM DILATED RETINAL EXAM HPI Hospital discharge follow up: Had a boil on the pannus, left side, tried to pop it, it got worse, reached out to ER as she was not feeling for a while, she had abx, next day she had surgery, as it was fascitis and then she went home. She was in the hospital for 3 days then went home with the wound vac. She notes that all has healed up since. She was on keflexin. Diabetes Mellitus: thinks he last hba1c was 8.3, her sugars are in the range of 136/ 140. During the day she in the morning she is running high. Over all she is higher in the early night and morning, her insulin was increased and she has been dropping , they are working on getting her sugars better controlled The ozempic is helping her with her weight and appetite. As if she over eats she vomits or has a diarrhea. Bp is good today, she is also trying to cook more at frozen dinners etc. She has no sensation in the feet, uses shoes No problem-specific Assessment AND Plan notes found for this encounter. PAST MEDICAL HISTORY Diagnosis Date Abnormal Pap smear of cervix 2010 DR DORANTES, REPEAT PAP NL Acquired hypothyroidism 06/08/2019 Acute kidney failure (HCC) 10/2020 Chlamydia 1995 Diabetes mellitus (HCC) Diabetes mellitus complicating , antepartum Essential hypertension 10/29/2021 Fibromyalgia Hyperlipidemia Mental disorder DEPRESSION/ANXIETY Neuropathy Non-healing open wound of toe 04/30/2021 RUBIA (obstructive sleep apnea) DME DASCO for PAP machine Osteomyelitis (HCC) 06/15/2019 right toe depression Sleep apnea PAST SURGICAL HISTORY Procedure Laterality Date AMPUTATION FOOT,TRANSMETATARSAL Right 06/15/2019 2nd toe APPENDECTOMY 2014 DANDC (MISSED AB 1ST TRIMESTER) EXCISION TONSIL LESIONS BILATERAL INSJ TUNNELED CVC W/O SUBQ PORT/FRANCHISE CONSULTANT AGE 5 YR/> 11/15/2020 LAPAROSCOPIC TUBAL LIGATION/RING/CLIP 12/2013 PAST SURGICAL HISTORY OF Right 04/02/2019 right great toe amputation FAMILY HISTORY Problem Relation Age of Onset Thyroid Mother Cancer Maternal Grandfather prostate Heart Maternal Grandmother Diabetes Maternal Aunt Diabetes Maternal Uncle Diabetes Other Social History Tobacco Use Smoking status: Every Day Packs/day: 0.50 Years: 25.00 Pack years: 12.50 Types: Cigarettes Smokeless tobacco: Never Vaping Use Vaping Use: Never used Substance Use Topics Alcohol use: No Drug use: No Past medical history, appointments, medications, allergies reviewed. Pertinent Lab/Diagnostic Studies are reviewed and discussed today Current Outpatient Medications: levothyroxine (LEVOXYL) 75 mcg tablet insulin glargine (LANTUS SOLOSTAR, BASAGLAR KWIKPEN) 100 unit/mL (3 mL) OZEMPIC 0.25 mg or 0.5 mg(2 mg/1.5 mL) pen diclofenac (VOLTAREN) 1 % topical gel gabapentin (NEURONTIN) 600 mg tablet losartan (COZAAR) 50 mg tablet naproxen (NAPROSYN) 500 mg tablet meclizine (ANTIVERT) 25 mg tab ergocalciferol 50,000 unit capsule (VITAMIN D2, DRISDOL) pantoprazole DR (PROTONIX) 20 mg tablet atorvastatin (LIPITOR) 80 mg tablet albuterol HFA (PROAIR HFA) 90 mcg/actuation inhaler fluticasone (FLONASE) 50 mcg/actuation nasal spray insulin aspart U-100 (NOVOLOG FLEXPEN U-100 INSULIN) 100 unit/mL (3 mL) insulin needles, DISPOSABLE, (PEN NEEDLE) 31 gauge x 5/16 blood sugar diagnostic (BLOOD GLUCOSE TEST) test strip ondansetron orally disintegrating (ZOFRAN ODT) 4 mg disintegrating tablet flash glucose scanning reader (FREESTYLE SOFI 14 DAY READER) [facility] flash glucose sensor (FREESTYLE SOFI 14 DAY SENSOR) kit biotin 1 mg cap alcohol swabs padm CPAP insulin aspart (NOVOLOG PENFILL U-100 INSULIN SUBCUTANEOUS) acetaminophen (TYLENOL EXTRA STRENGTH) 500 mg tablet DULoxetine (CYMBALTA) 60 mg capsule Review of Systems CONSTITUTIONAL: No fevers, chills night sweats, unintended weight loss CARDIOVASCULAR: No chest pain, dyspnea, palpitations, orthopnea, PND, ankle edema. PULM: No dyspnea, unexplained cough. GI: No dysphagia/odynophagia, problematic reflux, constipation, diarrhea, changes in stool habits, hematochezia, melena. : No new urinary complaints, including dysuria, gross hematuria or pyuria. NEURO: No new balance problems, peripheral weakness/paresthesias or numbness of concern. Physical Exam BP 134/60 (BP Site: Right Arm, BP Position: Sitting, BP Cuff Size: Large Adult) Pulse 87 Tem (more content not included)... [facility] 11-05-2022 History of Present illness Narrative Reason for Visit Patient presents with: Hospital F/U: abdomen wound- from a boil- improved Maryanne Minaya is a 51 year old female who presents here today for Above Complaints.. Health Maintenance COVID-19 VACCINE(1) DTAP,TDAP,TD(1 - Tdap) COLORECTAL CANCER SCREENING BP CONTROLLED (<130/80) HBA1C URINE ALBUMIN:CREATININE RATIO DIABETIC FOOT EXAM DEPRESSION ASSESSMENT MAMMOGRAM DILATED RETINAL EXAM HPI Hospital discharge follow up: Had a boil on the pannus, left side, tried to pop it, it got worse, reached out to ER as she was not feeling for a while, she had abx, next day she had surgery, as it was fascitis and then she went home. She was in the hospital for 3 days then went home with the wound vac. She notes that all has healed up since. She was on keflexin. Diabetes Mellitus: thinks he last hba1c was 8.3, her sugars are in the range of 136/ 140. During the day she in the morning she is running high. Over all she is higher in the early night and morning, her insulin was increased and she has been dropping , they are working on getting her sugars better controlled The ozempic is helping her with her weight and appetite. As if she over eats she vomits or has a diarrhea. Bp is good today, she is also trying to cook more at frozen dinners etc. She has no sensation in the feet, uses shoes No problem-specific Assessment & Plan notes found for this encounter. PAST MEDICAL HISTORY Diagnosis Date Abnormal Pap smear of cervix 2010 DR DORANTES, REPEAT PAP NL Acquired hypothyroidism 06/08/2019 Acute kidney failure (HCC) 10/2020 Chlamydia 1995 Diabetes mellitus (HCC) Diabetes mellitus complicating , antepartum Essential hypertension 10/29/2021 Fibromyalgia Hyperlipidemia Mental disorder DEPRESSION/ANXIETY Neuropathy Non-healing open wound of toe 04/30/2021 RUBIA (obstructive sleep apnea) DME DASCO for PAP machine Osteomyelitis (HCC) 06/15/2019 right toe depression Sleep apnea PAST SURGICAL HISTORY Procedure Laterality Date AMPUTATION FOOT,TRANSMETATARSAL Right 06/15/2019 2nd toe APPENDECTOMY 2015 D&C (MISSED AB 1ST TRIMESTER) EXCISION TONSIL LESIONS BILATERAL INSJ TUNNELED CVC W/O SUBQ PORT/FRANCHISE CONSULTANT AGE 6 YR/> 11/15/2020 LAPAROSCOPIC TUBAL LIGATION/RING/CLIP 12/2013 PAST SURGICAL HISTORY OF Right 04/02/2019 right great toe amputation FAMILY HISTORY Problem Relation Age of Onset Thyroid Mother Cancer Maternal Grandfather prostate Heart Maternal Grandmother Diabetes Maternal Aunt Diabetes Maternal Uncle Diabetes Other Social History Tobacco Use Smoking status: Every Day Packs/day: 0.50 Years: 25.00 Pack years: 12.50 Types: Cigarettes Smokeless tobacco: Never Vaping Use Vaping Use: Never used Substance Use Topics Alcohol use: No Drug use: No Past medical history, appointments, medications, allergies reviewed. Pertinent Lab/Diagnostic Studies are reviewed and discussed today Current Outpatient Medications: levothyroxine (LEVOXYL) 75 mcg tablet insulin glargine (LANTUS SOLOSTAR, BASAGLAR KWIKPEN) 100 unit/mL (3 mL) OZEMPIC 0.25 mg or 0.5 mg(2 mg/1.5 mL) pen diclofenac (VOLTAREN) 1 % topical gel gabapentin (NEURONTIN) 600 mg tablet losartan (COZAAR) 50 mg tablet naproxen (NAPROSYN) 500 mg tablet meclizine (ANTIVERT) 25 mg tab ergocalciferol 50,000 unit capsule (VITAMIN D2, DRISDOL) pantoprazole DR (PROTONIX) 20 mg tablet atorvastatin (LIPITOR) 80 mg tablet albuterol HFA (PROAIR HFA) 90 mcg/actuation inhaler fluticasone (FLONASE) 50 mcg/actuation nasal spray insulin aspart U-100 (NOVOLOG FLEXPEN U-100 INSULIN) 100 unit/mL (3 mL) insulin needles, DISPOSABLE, (PEN NEEDLE) 31 gauge x 5/16 blood sugar diagnostic (BLOOD GLUCOSE TEST) test strip ondansetron orally disintegrating (ZOFRAN ODT) 4 mg disintegrating tablet flash glucose scanning reader (FREESTYLE SOFI 14 DAY READER) misc flash glucose sensor (FREESTYLE SOFI 14 DAY SENSOR) kit biotin 1 mg cap alcohol swabs padm CPAP insulin aspart (NOVOLOG PENFILL U-100 INSULIN SUBCUTANEOUS) acetaminophen (TYLENOL EXTRA STRENGTH) 500 mg tablet DULoxetine (CYMBALTA) 60 mg capsule Review of Systems CONSTITUTIONAL: No fevers, chills night sweats, unintended weight loss CARDIOVASCULAR: No chest pain, dyspnea, palpitations, orthopnea, PND, ankle edema. PULM: No dyspnea, unexplained cough. GI: No dysphagia/odynophagia, problematic reflux, constipation, diarrhea, changes in stool habits, hematochezia, melena. : No new urinary complaints, including dysuria, gross hematuria or pyuria. NEURO: No new balance problems, peripheral weakness/paresthesias or numbness of concern. Physical Exam BP 134/60 (BP Site: Right Arm, BP Position: Sitting, BP Cuff Size: Large Adult) Pulse 87 Temp 36.7 C (98.1 F) Resp 14 Ht 162.6 cm (5' 4 ) Wt 113.4 kg (250 lb) LMP 09/17/2019 SpO2 96% BMI 42.91 kg/m General appearance: Well appearing, alert, in no acute distress, well nourished. Skin: Skin color, texture, turgor normal, no suspicious rashes or lesions Head: Normocephalic, no masses, lesions, tenderness or abnormalities Eyes: Anicteric sclera. Pupils are equally round and reactive to light. Extraocular movements are intact. Lungs: Lungs clear to auscultation. No wheezing, rhonchi, rales Heart: RRR without murmur, gallop, or rubs. Feet: Shoes and socks removed, normal distal pulses, not sensitive to monofilament amputation of right toes , the left toes are present but not sensitive , and there is less distal pulses. ASSESSMENT/PLAN: 1. Hospital discharge follow-up - ICD9: V67.59, ICD10: Z09 (primary diagnosis) Reviewed her notes and history 2. Essential hypertension - ICD9: 401.9, ICD10: I10 - good control - Recommended regular aerobic exercise. - Recommend home blood pressure monitoring, to bring results in on next visit - Goal of BP <130/80 3. Type 1 diabetes mellitus with other specified complication (HCC) - ICD9: 250.81, ICD10: E10.69 Controlled. - Continue current medications 4. Breast cancer screening by mammogram - ICD9: V76.12, ICD10: Z12.31 - Encouraged monthly BSE - Follow up for annual exam in one year. - APARNA SCREENING W EDITH 5. Morbid obesity (HCC) - ICD9: 278.01, ICD10: E66.01 Stable - Eat well program Starr Garcia MD documented in this encounter [facility] 11-05-2022 Nurse Note Sees for eye exam scheduled for . documented in this encounter [facility] 10-24-2022 Miscellaneous Notes Susana at [facility] notified of provider's response below. Sil Mcduffie RN Noted. Regards, Starr Garcia MD Marnie OLSON with [facility] called and reprts they did their evaluation with the Pt and they would like to see the Pt once a week for four weeks. They will be doing dressing changes and monitoring the wound. She reports they will be doing diabetes education and medication education and management. Voice mail is confidential, can leave a message and please leave a name. documented in this encounter [facility] 10-21-2022 Miscellaneous Notes Left message with [facility] nurse Mallory on upcoming appointment with . Tala Andino LPN Noted. Please let patient see me for follow up for this surgery and admission. Regards, Starr Garcia MD Mallory WOODS calling from [facility] to report plan of care for patient and Long-Term will visit patient 1 time a week for 1 week and then plan is to discharge patient from intermediate services. Patient's surgical wound is nearly healed. It has granulation tissue Surgeon is hopefully discharging patient from services next week. Mallory noted that when she visited patient this morning, patient left great toe was wrapped up in a lot of gauze. Patient would not let Mallory look at toe. Patient told Mallory that she was picking at something. Mallory wanted provider aware of this. Please review and Advise, Leny Munguia RN documented in this encounter [facility] 10-08-2022 Miscellaneous Notes Call placed to Muriel with [facility] and verbal ok given as below. Sara Gan RN May give the verbal okay for this. Thanks. Muriel from [facility] is asking for a verbal order for approval of plan of care visits for intermediate. 1x for 1 week 2x for 3 weeks 1x for 1 week. Will be going over with patient wound care, dx progression and medication education documented in this encounter [facility] 09-24-2022 Miscellaneous Notes Patient has been identified by name and date of : No Pharmacy phones for refill(s): Requested Prescriptions Pending Prescriptions Disp Refills levothyroxine (LEVOXYL) 75 mcg tablet [Pharmacy Med Name: LEVOXYL TABS 75MCG] 34 tablet 11 Sig: TAKE 1 TABLET ON AN EMPTY STOMACH DAILY BUT TAKE 2 TABLETS ON FRIDAY FOR THYROID Date of last office visit in primary care: 09/18/2022 Last 2 Encounter Wt Readings: Date: Wt: 09/18/2022 112.9 kg (249 lb) 09/04/2022 108.4 kg (239 lb) Previous labs/tests for medication: Thyroid: TSH Date Value 01/21/2022 4.390 mIU/L 11/13/2021 5.740 uU/mL Please advise. Thank you. Tala Andino LPN documented in this encounter [facility] 09-18-2022 Instructions Danielle Sandoval APRN.SWISS MACHINIST - 09/18/2022 4:23 PM EST [facility] number is [phone] To order new supplies from [employer] the number is documented in this encounter [facility] 09-18-2022 History of Present illness Narrative CC: Patient presents with: Recheck: [facility] Hosp follow up HPI Maryanne Minaya is a 51 year old female who presents today for Hospital follow-up. Facility: [facility] Date of visit: 09/04/22- 09/06/22 Reason for visit: came in for routine exam with complaints of infection the her abdominal wall. Patient with large abscess and systemic symptoms of fever and weakness. Hospital course: I and D with wound vac placement and IV antibiotics. Diagnosis: lower abdominal wall and subQ tissue abcess Discharge: home on PO antibiotics with wound vac and possible future skin graft. Current symptoms: Has completed PO antibiotics and sees surgeon Dr. Haas weekly for wound vac change and has a nurse coming in a few times a week for wound vac changes. Needs new supplies but is frustrated because [employer] keeps hanging up on her, surgeons office told her she would need to contact home health but she does not have their number. Denies fever, chills, body aches, redness, or pain. Has vaginal itching from all the antibiotics. She has used monistat over the counter which fixed the previous white discharge, but not the itching. Hypothyroidism: Sees endocrinology and last visit was this morning. Denies intolerance to heat/cold or abnormal weight changes. Has not had thyroid level drawn recently. DIABETES MELLITUS: Ms. Minaya denies excessive thirst or increased frequency of urination, chest pain or dyspnea , new or unusual visual symptoms, low sugar/hypoglycemic reactions, weight loss/gain, lightheadedness/dizziness, and bowel changes/loose stools. Had a few low blood sugars after infection and treatment so Lantus decreased to 50 units once a day by endocrinology. Follows a diabetic diet most of the time. She is compliant with medication(s) and is tolerating med(s) without any side effects. She reports checking her glucose on a four times a day schedule with sugars in the 120s-150s range. Patient's last HgA1C was 8.2 at [facility] Hemoglobin A1C (%) Date Value 01/21/2022 7.7 11/13/2021 8.5 07/31/2021 10.1 ) Last Ophthalmology exam was within the past 6 months and sees [facility]. HTN: Ms. Minaya indicates that she is feeling well and denies any symptoms referable to elevated blood pressure. Specifically denies headache, chest pain, palpitations, dyspnea, and peripheral edema. Patient denies any side effects of her medication(s) and is compliant with their regimen. She does not check BP's generally. Last 3 Encounter BP Readings: Date: BP: 09/18/2022 132/80 09/04/2022 132/74 03/18/2022 128/72 Depression: Sees psychiatry and feels current medications are workign well. Last saw recently. Sleep: is described as normal Alcohol use: does not drink any alcohol Drug use: No Appetite: good Stresses: Denies any major stressor. Suicidal Thoughts: No suicidal ideation, intent or plan Support: Comes from multiple sources including family At end of visit patient reports: Chronic pain to left hip and both hands. Had a left hip xray that was normal a few months ago and physical therapy but no improvement to pain. Does have intermittent tingling to her hands. No correlation to activity or time of day. Denies any recent or previous injury, edema, redness, decreased ROM, or weakness. REVIEW OF SYSTEMS General: no fevers, no chills, no night sweats, no recurrent infections, no change in appetite, no change in energy, and no significant changes in weight Respiratory: no cough, no wheezing, no shortness of breath, no hemoptysis Cardiovascular: no chest pain, no chest pressure, no palpitations, and no swelling Endocrine: no fatigue, no cold intolerance, no heat intolerance, no polyuria, no polyphagia, and no polydipsia Neurologic: No headache, weakness,dizziness, syncope. PAST MEDICAL HISTORY Diagnosis Date Abnormal Pap smear of cervix 2010 DR DORANTES, REPEAT PAP NL Acquired hypothyroidism 06/08/2019 Acute kidney failure (HCC) 10/2020 Chlamydia 1994 Diabetes mellitus (HCC) Diabetes mellitus complicating , antepartum Essential hypertension 10/29/2021 Fibromyalgia Hyperlipidemia Mental disorder DEPRESSION/ANXIETY Neuropathy Non-healing open wound of toe 04/30/2021 RUBIA (obstructive sleep apnea) DME DASCO for PAP machine Osteomyelitis (HCC) 06/15/2019 right toe depression Sleep apnea PAST SURGICAL HISTORY Procedure Laterality Date AMPUTATION FOOT,TRANSMETATARSAL Right 06/15/2019 2nd toe APPENDECTOMY 2015 D&C (MISSED AB 1ST TRIMESTER) EXCISION TONSIL LESIONS BILATERAL INSJ TUNNELED CVC W/O SUBQ PORT/FRANCHISE CONSULTANT AGE 6 YR/> 11/15/2020 LAPAROSCOPIC TUBAL LIGATION/RING/CLIP 12/2013 PAST SURGICAL HISTORY OF Right 04/02/2019 right great toe amputation ALLERGIES Azithromycin, Clindamycin, Emycin [Erythromycin], and Vancomycin MEDICATIONS gabapentin (NEURONTIN) 600 mg tablet Take 1 tablet by mouth twice daily for 180 days. losartan (COZAAR) 50 mg tablet take 1 tablet by mouth once daily naproxen (NAPROSYN) 500 mg tablet take 1 tablet by mouth twice a day NEEDED FOR PAIN or inflammation with food meclizine (ANTIVERT) 25 mg tab Take 1 tablet by mouth twice daily. ergocalciferol 50,000 unit capsule (VITAMIN D2, DRISDOL) Take 1 capsule by mouth two times a week. TO BE TAKEN ORALLY DIRECTED. Take 1 tablet by mouth twice weekly [id number], then decrease to [address] (PROTONIX) 20 mg tablet Take 1 tablet by mouth twice daily. levothyroxine (LEVOXYL) 75 mcg tablet Take on empty stomach. For Thyroid. Take 1 tablet daily but take 2 tablets on Friday atorvastatin (LIPITOR) 80 mg tablet Take 1 tablet by mouth once daily. albuterol HFA (PROAIR HFA) 90 mcg/actuation inhaler Inhale 2 Puffs as instructed every 4 hours as needed. fluticasone (FLONASE) 50 mcg/actuation nasal spray Use 2 Sprays in each nostril once daily. Rinse mouth after use. dulaglutide (TRULICITY) 0.75 mg/0.5 mL pen injector Inject 0.75 mg subcutaneously one time a week. Inject dose once per week. Discard Pen After insulin aspart U-100 (NOVOLOG FLEXPEN U-100 INSULIN) 100 unit/mL (3 mL) Inject insulin three times daily at first bite of food. Take 15 units with each meal insulin needles, DISPOSABLE, (PEN NEEDLE) 31 gauge x 5/16 1 Each three times daily. blood sugar diagnostic (BLOOD GLUCOSE TEST) test strip TEST BLOOD SUGAR 3 TIMES PER DAY. DX: 250. Uncontrolled Diabetes Mellitus INSULIN DEP: yes ondansetron orally disintegrating (ZOFRAN ODT) 4 mg disintegrating tablet Take 1 tablet by mouth every 6 hours as needed for Nausea/Vomiting. flash glucose scanning reader (FREESTYLE SOFI 14 DAY READER) [facility] to check blood sugars 4 times daily. flash glucose sensor (FREESTYLE SOFI 14 DAY SENSOR) kit Use to check blood sugars 4 times daily. biotin 1 mg cap Take 1 capsule by mouth once daily. alcohol swabs padm Apply 1 application to affected area four times daily. CPAP Initiate Auto PAP @ 5-20 cm of water with humidification. Mask (per patient preference) optional chin strap (if indicated) , filters, tubing, humidifier and lifetime supplies. insulin aspart (NOVOLOG PENFILL U-100 INSULIN SUBCUTANEOUS) Inject 10-20 Units subcutaneously w MEALS. Sliding scale acetaminophen (TYLENOL EXTRA STRENGTH) 500 mg tablet Take 1,000 mg by mouth every 4 hours as needed. DULoxetine (CYMBALTA) 60 mg capsule Take 60 mg by mouth once daily. Take 60 mg in the evening, along with 30 mg dose in the morning. FAMILY HISTORY Problem Relation Age of Onset Thyroid Mother Cancer Maternal Grandfather prostate Heart Maternal Grandmother Diabetes Maternal Aunt Diabetes Maternal Uncle Diabetes Other Social History Tobacco Use Smoking status: Every Day Packs/day: 0.50 Years: 25.00 Pack years: 12.50 Types: Cigarettes Smokeless tobacco: Never Vaping Use Vaping Use: Never used Substance Use Topics Alcohol use: No Drug use: No PHYSICAL EXAM LMP 09/17/2019 General Appearance: well appearing, in no acute distress, alert Pysch: mood and affect broad and appropriate Skin: Skin color, texture, turgor normal for age; wound vac intact to left lower abdomen without redness, or tenderness Eyes: conjunctiva pink and moist, no icterus, sclera white, non-injected Neck: Thyroid normal size and symmetric without palpable nodules, No adenopathy Lymph nodes: No cervical lymphadenopathy, No supraclavicular lymphadenopathy, No axillary lymphadenopathy., and No inguinal lymphadenopathy. Lungs: Lungs clear to auscultation. No wheezing, rhonchi, rales. Heart: RRR without murmur, gallop, or rubs. No ectopy Extremities: No deformities, edema, skin discoloration, clubbing or cyanosis. Good capillary refill. Musculoskeletal: No joint swelling, deformity, or tenderness DEPRESSION ASSESSMENT Never done BP CONTROLLED (<130/80) due on 04/30/2022 INFLUENZA(1) Never done HBA1C due on 07/23/2022 URINE ALBUMIN:CREATININE RATIO due on 07/31/2022 DIABETIC FOOT EXAM due on 09/29/2022 MAMMOGRAM due on 10/17/2022 DTAP,TDAP,TD(1 - Tdap) due on 10/29/2022 COLORECTAL CANCER SCREENING due on 10/29/2022 COVID-19 VACCINE(1) due on 10/29/2022 HEPATITIS B(2 of 3 - 19+ 3-dose series) due on 03/01/2023 SHINGRIX VACCINE(1 of 2) due on 03/01/2023 PNEUMOCOCCAL(2 - PCV) due on 03/01/2023 DILATED RETINAL EXAM due on 11/28/2022 LDL CHOLESTEROL due on 01/21/2023 ANNUAL PCP TEAM CHRONIC DISEASE VISIT due on 09/04/2023 PAP TESTING due on 06/01/2024 HPV TESTING due on 06/01/2024 HEPATITIS C SCREENING Completed HIV SCREENING Completed DATA REVIEWED: Outside chart from [facility] reviewed. ASSESSMENT/PLAN: 1. History of recent hospitalization - ICD9: V13.9, ICD10: Z92.89 (primary diagnosis) - abscess resolved - no further signs of infection - per patient wound is healing well 2. Abscess - ICD9: 682.9, ICD10: L02.91 As above 3. Other specified hypothyroidism - ICD9: 244.8, ICD10: E03.8 - Instructed patient on importance of taking on an empty stomach either first thing in the morning or at bedtime. - TSH BLD 4. Type 1 diabetes mellitus with other specified complication (HCC) - ICD9: 250.81, ICD10: E10.69 poorly controlled and medication changes made by endocrinology. - Continue current medications as ordered by endocrinology - BP goal of <130/80 - LDL goal of <100 - ALBUMIN/CREAT RATIO RND UR 5. Essential hypertension - ICD9: 401.9, ICD10: I10 - good control - Continue current medication(s) - Encouraged dietary sodium restriction/DASH diet - Recommended regular aerobic exercise. - Recommend home blood pressure monitoring, to bring results in on next visit - Goal of BP <130/80 6. History of depression - ICD9: V11.8, ICD10: Z86.59 Controlled on current medication Continue with medications and recommendations by psychiatry - Reviewed concept of neurochemical imbalance wth depression/anxiety, treatment options and benefits of counseling in combination with medication. Also reviewed benefits of sleep hygeine, diet and exercise - Instructed patient to contact office or [id number] after-hours promptly should condition worsen or any new symptoms appear. - Counseling Center [facility] and after hours crisis line 7. Vaginal shira - ICD9: 112.1, ICD10: B37.31 Diflucan as ordered - follow up if no improvement 8. Left hip pain - ICD9: 719.45, ICD10: M25.552 - has had for over a year - last evaluate in February with normal xray, no help with career resource technician or physical therapy - CONSULT TO ORTHOPAEDICS 9. Bilateral hand pain - ICD9: 729.5, ICD10: M79.641, M79.642 Discussed with patient we will start with diclofenac gel and if this continues will do inflammatory testing. My concern is they would be elevated from severe infection. So will re-evaluate at later date - make appointment in a few weeks to further review this. Prescription instructions reviewed with patient as applicable. Potential red flag symptoms discussed with the patient. Reviewed appropriate action plan to take if red flag symptoms occur. Patient agreeable to treatment plan. Danielle Sandoval APRN.ESCOBAR documented in this encounter [facility] 09-12-2022 Miscellaneous Notes Noted Regards, Starr Garcia MD Muriel calling from [facility] to report plan of care for patient and Long-Term will visit patient 3 times a week for first week and 2 times a week for 4 weeks. Long-Term will work with patient on wound care, disease and medication education. Please review and Advise, Leny Munguia RN documented in this encounter [facility] 09-04-2022 History of Present illness Narrative CC: Patient presents with: Recheck: 6 month follow up HPI Maryanne Minaya is a 51 year old female who presents today for routine follow up but has difficulty walking into exam room for what she refers to a boil on her abdomen. Area started as a pimple and she she tried to pop it but nothing would come out. Started with getting very painful, draining a yellow substance, and very red over the past few days. States it is continuing to get larger and more painful and now has had a fever, body aches, nauseated, fatigue and decreased appetite. States highest fever was 101 yesterday. Has history of these which she would be able to take pill antibiotics for but it has never been this aggressive, large, or with other symptoms. REVIEW OF SYSTEMS See HPI PAST MEDICAL HISTORY Diagnosis Date Abnormal Pap smear of cervix 2010 DR DORANTES, REPEAT PAP NL Acquired hypothyroidism 06/08/2019 Acute kidney failure (HCC) 10/2020 Chlamydia 1995 Diabetes mellitus (HCC) Diabetes mellitus complicating , antepartum Essential hypertension 10/29/2021 Fibromyalgia Hyperlipidemia Mental disorder DEPRESSION/ANXIETY Neuropathy Non-healing open wound of toe 04/30/2021 RUBIA (obstructive sleep apnea) DME DASCO for PAP machine Osteomyelitis (HCC) 06/15/2019 right toe depression Sleep apnea PAST SURGICAL HISTORY Procedure Laterality Date AMPUTATION FOOT,TRANSMETATARSAL Right 06/15/2019 2nd toe APPENDECTOMY 2015 D&C (MISSED AB 1ST TRIMESTER) EXCISION TONSIL LESIONS BILATERAL INSJ TUNNELED CVC W/O SUBQ PORT/FRANCHISE CONSULTANT AGE 6 YR/> 11/15/2020 LAPAROSCOPIC TUBAL LIGATION/RING/CLIP 12/2013 PAST SURGICAL HISTORY OF Right 04/02/2019 right great toe amputation ALLERGIES Azithromycin, Clindamycin, Emycin [Erythromycin], and Vancomycin MEDICATIONS gabapentin (NEURONTIN) 600 mg tablet Take 1 tablet by mouth twice daily for 180 days. losartan (COZAAR) 50 mg tablet take 1 tablet by mouth once daily naproxen (NAPROSYN) 500 mg tablet take 1 tablet by mouth twice a day NEEDED FOR PAIN or inflammation with food meclizine (ANTIVERT) 25 mg tab Take 1 tablet by mouth twice daily. ergocalciferol 50,000 unit capsule (VITAMIN D2, DRISDOL) Take 1 capsule by mouth two times a week. TO BE TAKEN ORALLY DIRECTED. Take 1 tablet by mouth twice weekly [id number], then decrease to [address] (PROTONIX) 20 mg tablet Take 1 tablet by mouth twice daily. levothyroxine (LEVOXYL) 75 mcg tablet Take on empty stomach. For Thyroid. Take 1 tablet daily but take 2 tablets on Friday atorvastatin (LIPITOR) 80 mg tablet Take 1 tablet by mouth once daily. albuterol HFA (PROAIR HFA) 90 mcg/actuation inhaler Inhale 2 Puffs as instructed every 4 hours as needed. (Patient not taking: Reported on 03/18/2022 ) fluticasone (FLONASE) 50 mcg/actuation nasal spray Use 2 Sprays in each nostril once daily. Rinse mouth after use. dulaglutide (TRULICITY) 0.75 mg/0.5 mL pen injector Inject 0.75 mg subcutaneously one time a week. Inject dose once per week. Discard Pen After insulin aspart U-100 (NOVOLOG FLEXPEN U-100 INSULIN) 100 unit/mL (3 mL) Inject insulin three times daily at first bite of food. Take 15 units with each meal insulin needles, DISPOSABLE, (PEN NEEDLE) 31 gauge x 5/16 1 Each three times daily. blood sugar diagnostic (BLOOD GLUCOSE TEST) test strip TEST BLOOD SUGAR 3 TIMES PER DAY. DX: 250. Uncontrolled Diabetes Mellitus INSULIN DEP: yes ondansetron orally disintegrating (ZOFRAN ODT) 4 mg disintegrating tablet Take 1 tablet by mouth every 6 hours as needed for Nausea/Vomiting. flash glucose scanning reader (ValencellSTYLE SOFI 14 DAY READER) misc Use to check blood sugars 4 times daily. flash glucose sensor (FREESTYLE SOFI 14 DAY SENSOR) kit Use to check blood sugars 4 times daily. biotin 1 mg cap Take 1 capsule by mouth once daily. alcohol swabs padm Apply 1 application to affected area four times daily. CPAP Initiate Auto PAP @ 5-20 cm of water with humidification. Mask (per patient preference) optional chin strap (if indicated) , filters, tubing, humidifier and lifetime supplies. insulin aspart (NOVOLOG PENFILL U-100 INSULIN SUBCUTANEOUS) Inject 10-20 Units subcutaneously w MEALS. Sliding scale acetaminophen (TYLENOL EXTRA STRENGTH) 500 mg tablet Take 1,000 mg by mouth every 4 hours as needed. DULoxetine (CYMBALTA) 60 mg capsule Take 60 mg by mouth once daily. Take 60 mg in the evening, along with 30 mg dose in the morning. FAMILY HISTORY Problem Relation Age of Onset Thyroid Mother Cancer Maternal Grandfather prostate Heart Maternal Grandmother Diabetes Maternal Aunt Diabetes Maternal Uncle Diabetes Other Social History Tobacco Use Smoking status: Every Day Packs/day: 0.50 Years: 25.00 Pack years: 12.50 Types: Cigarettes Smokeless tobacco: Never Vaping Use Vaping Use: Never used Substance Use Topics Alcohol use: No Drug use: No PHYSICAL EXAM BP 132/74 Pulse 88 Temp 37.1 C (98.7 F) (Temporal) Resp 16 Wt 108.4 kg (239 lb) LMP 09/17/2019 SpO2 97% BMI 41.02 kg/m General Appearance: alert, appears very uncomfortable and in pain Skin: left pannus of abdomen swollen with large amount of redness, firmness, increased warmth, and extremely tender to the touch. Wound itself size of half dollar with blacked center and yellowish drainage. Lungs: Lungs clear to auscultation. No wheezing, rhonchi, rales. Heart: RRR without murmur, gallop, or rubs. No ectopy ASSESSMENT/PLAN: 1. Abscess - ICD9: 682.9, ICD10: L02.91 - with rapid progression of wound, severity of pain and edema, reports of fever and other symptoms - patient sent to ER for IV antibiotics and probable debridement - Dr. Kent at [facility] notified and report given - Keke Dalton with Our general surgery team messaged in case [facility] calls our surgeons for consult Prescription instructions reviewed with patient as applicable. Potential red flag symptoms discussed with the patient. Reviewed appropriate action plan to take if red flag symptoms occur. Patient agreeable to treatment plan. Danielle Sandoval APRN.CNP documented in this encounter [facility] 08-20-2022 Miscellaneous Notes Patient has been identified by name and date of : Yes Pharmacy phones for refill(s): Requested Prescriptions Pending Prescriptions Disp Refills losartan (COZAAR) 50 mg tablet [Pharmacy Med Name: LOSARTAN POTASSIUM 50 MG TAB] 90 tablet 3 Sig: take 1 tablet by mouth once daily Date of last office visit in primary care: 03/01/22 next apt 09/02/22 Last 2 Encounter Wt Readings: Date: Wt: 03/18/2022 108.8 kg (239 lb 12.8 oz) 03/01/2022 112 kg (247 lb) Previous labs/tests for medication: Blood Pressure: BUN (mg/dL) Date Value 01/21/2022 17 11/13/2021 13 Sodium (mmol/L) Date Value 01/21/2022 136 11/13/2021 137 Last 1 Encounter BP Readings: Date: BP: 03/18/2022 128/72 Thank you. Sirena Rene LPN documented in this encounter [facility] 08-19-2022 Miscellaneous Notes Patient has been identified by name and date of : Yes Patient phones for refill(s): Requested Prescriptions Pending Prescriptions Disp Refills gabapentin (NEURONTIN) 600 mg tablet [Pharmacy Med Name: GABAPENTIN 600 MG TABLET] 60 tablet 5 Sig: take 1 tablet by mouth twice a day Date of last office visit in primary care: 03/01/2022 Last 2 Encounter Wt Readings: Date: Wt: 03/18/2022 108.8 kg (239 lb 12.8 oz) 03/01/2022 112 kg (247 lb) Previous labs/tests for medication: Not applicable Please advise. Thank you. Tala Andino LPN documented in this encounter [facility] 08-07-2022 Miscellaneous Notes Noted. Danielle Sandoval APRN.CNP Patient returned call and states she takes her naproxen 1-2 times per week, not daily. She states depending on what activities she does each week she may take more than 1-2 a week. Thank you. Left a message for pt to call the office and ask to speak to a nurse. Also sent a [facility] message asking pt to call the office. Sirena Rene LPN Left a message for pt to call the office and ask to speak to a nurse. Sirena Rene LPN Left message for patient to call office Please call patient and ask if she is using this every day twice a day? This medication can effect kidney function, increase blood pressure, and also increase risk of bleeding. I have refilled this in a small amount, but if she is using this continuously, we need to discuss other options. Thank you Danielle Sandoval APRN.CNP Patient has been identified by name and date of : Yes Patient phones for refill(s): Requested Prescriptions Pending Prescriptions Disp Refills naproxen (NAPROSYN) 500 mg tablet [Pharmacy Med Name: NAPROXEN 500 MG TABLET] 30 tablet 1 Sig: take 1 tablet by mouth twice a day NEEDED FOR PAIN or inflammation with food Date of last office visit in primary care: 03/01/2022 Last 2 Encounter Wt Readings: Date: Wt: 03/18/2022 108.8 kg (239 lb 12.8 oz) 03/01/2022 112 kg (247 lb) Previous labs/tests for medication: Not applicable Please advise. Thank you. Tala Andino LPN documented in this encounter [facility] 07-15-2022 Miscellaneous Notes Patient has been identified by name and date of : Yes Patient phones for refill(s): Requested Prescriptions Pending Prescriptions Disp Refills meclizine (ANTIVERT) 25 mg tab 180 tablet 1 Sig: Take 1 tablet by mouth twice daily. ergocalciferol 50,000 unit capsule (VITAMIN D2, DRISDOL) 24 capsule 3 Sig: Take 1 capsule by mouth two times a week. TO BE TAKEN ORALLY DIRECTED. Take 1 tablet by mouth twice weekly [id number], then decrease to 1 tablet weekly. Patient needing refill and asking for it to go to [facility] instead of [facility]. Date of last office visit with pcp: 03/01/2022 Future appt: 09/02/2022 Last 2 Encounter Wt Readings: Date: Wt: 03/18/2022 108.8 kg (239 lb 12.8 oz) 03/01/2022 112 kg (247 lb) Previous labs/tests for medication: Blood Pressure: BUN (mg/dL) Date Value 01/21/2022 17 11/13/2021 13 Sodium (mmol/L) Date Value 01/21/2022 136 11/13/2021 137 Last 1 Encounter BP Readings: Date: BP: 03/18/2022 128/72 Liver Function: ALT (U/L) Date Value 01/21/2022 13 11/13/2021 11 AST (U/L) Date Value 01/21/2022 16 11/13/2021 13 Please advise. Thank you. Sara Gan RN documented in this encounter [facility] 03-20-2022 Miscellaneous Notes Patient notified letter is ready for picking tech in Medical Records. Patient calling to request to picking tech copy of letter from 12/17/21 re: service dog. Please let her know when she can pick it up in Medical Records. Breanna Silvestre RN documented in this encounter [facility] 03-18-2022 History of Present illness Narrative CC: Patient presents with: Urinary Frequency: burning with urination x 4 days HPI Maryanne Minaya is a 51 year old female who presents with complaint of possible UTI. These symptoms have been present for 4 days. Associated symptoms: burning and urgency Denies: pressure, fever, chills, sweats, abdominal pain and flank pain Treatments: nothing The ROS was otherwise negative. PMH, Medications, labs, allergies, and recent past visits with PCP were reviewed and updated as able. PHYSICAL EXAM: BP 128/72 Pulse 90 Temp 37.2 C (98.9 F) Resp 18 Wt 108.8 kg (239 lb 12.8 oz) LMP 09/17/2019 SpO2 96% BMI 41.16 kg/m General: Well appearing and alert CV: Regular rate and rhythm without obvious murmur Lungs: clear to auscultation bilaterally Back: straight and symmetric Abdomen: soft, nontender, nondistended PAST MEDICAL HISTORY Diagnosis Date Abnormal Pap smear of cervix 2010 DR DORANTES, REPEAT PAP NL Acquired hypothyroidism 06/08/2019 Acute kidney failure (HCC) 10/2020 Chlamydia 1995 Diabetes mellitus (HCC) Diabetes mellitus complicating , antepartum Essential hypertension 10/29/2021 Fibromyalgia Hyperlipidemia Mental disorder DEPRESSION/ANXIETY Neuropathy Non-healing open wound of toe 04/30/2021 RUBIA (obstructive sleep apnea) DME DASCO for PAP machine Osteomyelitis (HCC) 06/15/2019 right toe depression Sleep apnea PAST SURGICAL HISTORY Procedure Laterality Date AMPUTATION FOOT,TRANSMETATARSAL Right 06/15/2019 2nd toe APPENDECTOMY 2015 D&C (MISSED AB 1ST TRIMESTER) EXCISION TONSIL LESIONS BILATERAL INSJ TUNNELED CVC W/O SUBQ PORT/FRANCHISE CONSULTANT AGE 6 YR/> 11/15/2020 LAPAROSCOPIC TUBAL LIGATION/RING/CLIP 12/2013 PAST SURGICAL HISTORY OF Right 04/02/2019 right great toe amputation ALLERGIES Azithromycin, Clindamycin, and Emycin [Erythromycin] MEDICATIONS pantoprazole DR (PROTONIX) 20 mg tablet Take 1 tablet by mouth twice daily. levothyroxine (LEVOXYL) 75 mcg tablet Take on empty stomach. For Thyroid. Take 1 tablet daily but take 2 tablets on Friday naproxen (NAPROSYN) 500 mg tablet Take 1 tablet by mouth twice daily as needed (for pain/inflammation). Take with food. gabapentin (NEURONTIN) 600 mg tablet Take 1 tablet by mouth twice daily for 180 days. atorvastatin (LIPITOR) 80 mg tablet Take 1 tablet by mouth once daily. fluticasone (FLONASE) 50 mcg/actuation nasal spray Use 2 Sprays in each nostril once daily. Rinse mouth after use. dulaglutide (TRULICITY) 0.75 mg/0.5 mL pen injector Inject 0.75 mg subcutaneously one time a week. Inject dose once per week. Discard Pen After losartan (COZAAR) 50 mg tablet take 1 tablet by mouth once daily ergocalciferol 50,000 unit capsule (VITAMIN D2, DRISDOL) Take 1 capsule by mouth two times a week. TO BE TAKEN ORALLY DIRECTED. Take 1 tablet by mouth twice weekly [id number], then decrease to 1 tablet weekly. insulin aspart U-100 (NOVOLOG FLEXPEN U-100 INSULIN) 100 unit/mL (3 mL) Inject insulin three times daily at first bite of food. Take 15 units with each meal insulin needles, DISPOSABLE, (PEN NEEDLE) 31 gauge x 5/16 1 Each three times daily. blood sugar diagnostic (BLOOD GLUCOSE TEST) test strip TEST BLOOD SUGAR 3 TIMES PER DAY. DX: 250. Uncontrolled Diabetes Mellitus INSULIN DEP: yes meclizine (ANTIVERT) 25 mg tab Take 1 tablet by mouth twice daily. ondansetron orally disintegrating (ZOFRAN ODT) 4 mg disintegrating tablet Take 1 tablet by mouth every 6 hours as needed for Nausea/Vomiting. flash glucose scanning reader (FREESTYLE SOFI 14 DAY READER) misc Use to check blood sugars 4 times daily. flash glucose sensor (FREESTYLE SOFI 14 DAY SENSOR) kit Use to check blood sugars 4 times daily. biotin 1 mg cap Take 1 capsule by mouth once daily. alcohol swabs padm Apply 1 application to affected area four times daily. CPAP Initiate Auto PAP @ 5-20 cm of water with humidification. Mask (per patient preference) optional chin strap (if indicated) , filters, tubing, humidifier and lifetime supplies. insulin aspart (NOVOLOG PENFILL U-100 INSULIN SUBCUTANEOUS) Inject 10-20 Units subcutaneously w MEALS. Sliding scale acetaminophen (TYLENOL EXTRA STRENGTH) 500 mg tablet Take 1,000 mg by mouth every 4 hours as needed. DULoxetine (CYMBALTA) 60 mg capsule Take 60 mg by mouth once daily. Take 60 mg in the evening, along with 30 mg dose in the morning. nitrofurantoin monohydrate and macrocrystal (MACROBID) 100 mg capsule Take 1 capsule by mouth twice daily for 5 days. albuterol HFA (PROAIR HFA) 90 mcg/actuation inhaler Inhale 2 Puffs as instructed every 4 hours as needed. FAMILY HISTORY Problem Relation Age of Onset Thyroid Mother Cancer Maternal Grandfather prostate Heart Maternal Grandmother Diabetes Maternal Aunt Diabetes Maternal Uncle Diabetes Other Social History Tobacco Use Smoking status: Current Every Day Smoker Packs/day: 0.50 Years: 25.00 Pack years: 12.50 Types: Cigarettes Smokeless tobacco: Never Used Vaping Use Vaping Use: Never used Substance Use Topics Alcohol use: No Drug use: No ASSESSMENT/PLAN: 1. Urinary frequency - ICD9: 788.41, ICD10: R35.0 acute - Send urine for culture - Begin treatment with Macrobid 100 mg BID for 5 days - UA DIP, URINE (POC) - URINE CULTURE Prescription instructions reviewed with patient as applicable. Potential red flag symptoms discussed with the patient. Reviewed appropriate action plan to take if red flag symptoms occur. Patient agreeable to treatment plan. Kati Bustos APRN.ESCOBAR documented in this encounter [facility] 03-11-2022 History of Present illness Narrative Episode Visit Count: 2 Therapist That Will Oversee The Plan Of Care: Angelic Lopez PT Start of Care Date: 03/05/22 Onset Date: 03/05/21 Plan of Care Certification Date: 03/05/22 Next Certification Due Date: 04/16/22 Patient Identified by Name and Date of : Yes RE[facility]AB[facility] SPORTS THERAPY PHYSICAL THERAPY TREATMENT NOTE ASSESSMENT: Maryanne Minaya tolerated the session with decreased symptoms. She demonstrated improvements in pain and able to advance exs . The patient will continue to benefit from ongoing skilled physical therapy to progress toward set goals. PLAN FOR NEXT VISIT: consider seated hip abduciton with rep band SUBJECTIVE: Patient Reason for Visit: Pt notes that she is doing the stretches. Doing the exs 2x/day. Pain: Pain Pain Level: 5 Pain Location: Buttocks - Left Description: Aching;Shooting Frequency: Continuous Post Treatment Pain Post Treatment Pain Level: 0 Post Treatment Pain Location: Buttocks - Left OBJECTIVE MEASURES WITH LEVEL OF FUNCTION: no gait deviation noted TREATMENT: Therapeutic Exercise: 1: seated pirifomis stretch 30 sec x3 2: supine piriformis stretch 30 sec x3 3: TA hooklying 1x10 4: TA / arm lifts 1x10 5: TA with bent knee fall outs 1x10 6: TA with marches 1x10 7: trial of bridges but painful so discontinued 8: standing hip abduction left 2x10 9: seated hip adduction 1x10 Skilled Intervention: Patient was educated in proper exercise technique and purpose for exercises. Reviewed and educated patient on additions/changes for home exercise program . Skilled judgment was provided in selection of appropriate interventions. Provided written instruction for home exercise program to facilitate proper performance and compliance. Correct performance of therapeutic exercises was facilitated with verbal and visual cuing. Patient education as noted. Home Exercise Program Assigned: 1: add TA series as above 2: standing hip abduction left only 3: isometric seated hip adductiion Billing Therapeutic Exercise Treatment Minutes: 32 Total Treatment Time Minutes (timed/untimed): 32 Angelic Lopez PT documented in this encounter [facility] documented as of this encounter (statuses as of 07/15/2022) [facility] History of Past illness Narrative* Problem Noted Date Resolved Date Left hip pain 03/05/2022 05/02/2022 Sciatica of left side 03/05/2022 05/02/2022 documented as of this encounter (statuses as of 08/07/2022) [facility] History of Past illness Narrative* Problem Noted Date Resolved Date Left hip pain 03/05/2022 05/02/2022 Sciatica of left side 03/05/2022 05/02/2022 documented as of this encounter (statuses as of 08/21/2022) [facility] History of Past illness Narrative* Problem Noted Date Resolved Date Left hip pain 03/05/2022 05/02/2022 Sciatica of left side 03/05/2022 05/02/2022 documented as of this encounter (statuses as of 08/21/2022) [facility] History of Past illness Narrative* Problem Noted Date Resolved Date Left hip pain 03/05/2022 05/02/2022 Sciatica of left side 03/05/2022 05/02/2022 documented as of this encounter (statuses as of 09/04/2022) [facility] History of Past illness Narrative* Problem Noted Date Resolved Date Left hip pain 03/05/2022 05/02/2022 Sciatica of left side 03/05/2022 05/02/2022 documented as of this encounter (statuses as of 09/12/2022) [facility] of Past illness Narrative* Problem Noted Date Resolved Date Left hip pain 03/05/2022 05/02/2022 Sciatica of left side 03/05/2022 05/02/2022 documented as of this encounter (statuses as of 09/18/2022) [facility] of Past illness Narrative* Problem Noted Date Resolved Date Left hip pain 03/05/2022 05/02/2022 Sciatica of left side 03/05/2022 05/02/2022 documented as of this encounter (statuses as of 09/30/2022) [address]-2022 History of Past illness Narrative* Problem Noted Date Resolved Date Left hip pain 03/05/2022 05/02/2022 Sciatica of left side 03/05/2022 05/02/2022 documented as of this encounter (statuses as of 10/08/2022) [facility] of Past illness Narrative* Problem Noted Date Resolved Date Left hip pain 03/05/2022 05/02/2022 Sciatica of left side 03/05/2022 05/02/2022 documented as of this encounter (statuses as of 10/21/2022) [facility] of Past illness Narrative* Problem Noted Date Resolved Date Left hip pain 03/05/2022 05/02/2022 Sciatica of left side 03/05/2022 05/02/2022 documented as of this encounter (statuses as of 10/24/2022) [address]-2022 History of Past illness Narrative* Problem Noted Date Resolved Date Left hip pain 03/05/2022 05/02/2022 Sciatica of left side 03/05/2022 05/02/2022 documented as of this encounter (statuses as of 11/06/2022) [facility] of Past illness Narrative* Problem Noted Date Resolved Date Left hip pain 03/05/2022 05/02/2022 Sciatica of left side 03/05/2022 05/02/2022 documented as of this encounter (statuses as of 11/14/2022) [facility] of Past illness Narrative* Problem Noted Date Resolved Date Left hip pain 03/05/2022 05/02/2022 Sciatica of left side 03/05/2022 05/02/2022 documented as of this encounter (statuses as of 11/25/2022) [facility] of Past illness Narrative* Problem Noted Date Resolved Date Sciatica of left side 03/05/2022 05/02/2022 documented as of this encounter (statuses as of 12/06/2022) [address]-2022 History of Past illness Narrative* Problem Noted Date Resolved Date Sciatica of left side 03/05/2022 05/02/2022 documented as of this encounter (statuses as of 12/11/2022) [address]-2022 History of Past illness Narrative* Problem Noted Date Resolved Date Sciatica of left side 03/05/2022 05/02/2022 documented as of this encounter (statuses as of 12/19/2022) [address]22 History of Past illness Narrative* Problem Noted Date Resolved Date Sciatica of left side 03/05/2022 05/02/2022 documented as of this encounter (statuses as of 12/25/2022) [address]22 History of Past illness Narrative* Problem Noted Date Resolved Date Sciatica of left side 03/05/2022 05/02/2022 documented as of this encounter (statuses as of 01/10/2023) [facility] Narrative* Problem Noted Date Resolved Date Sciatica of left side 03/05/2022 05/02/2022 documented as of this encounter (statuses as of 01/20/2023) [facility] Narrative* Problem Noted Date Resolved Date Sciatica of left side 03/05/2022 05/02/2022 documented as of this encounter (statuses as of 01/22/2023) [address]22 History of Past illness Narrative* Problem Noted Date Resolved Date Sciatica of left side 03/05/2022 05/02/2022 documented as of this encounter (statuses as of 01/29/2023) [address]-2022 History of Past illness Narrative* Problem Noted Date Resolved Date Sciatica of left side 03/05/2022 05/02/2022 documented as of this encounter (statuses as of 02/03/2023) [address]-2022 History of Past illness Narrative* Problem Noted Date Resolved Date Sciatica of left side 03/05/2022 05/02/2022 documented as of this encounter (statuses as of 02/03/2023) [address]22 History of Past illness Narrative* Problem Noted Date Resolved Date Sciatica of left side 03/05/2022 05/02/2022 documented as of this encounter (statuses as of 02/10/2023) [facility] Narrative* Problem Noted Date Resolved Date Sciatica of left side 03/05/2022 05/02/2022 documented as of this encounter (statuses as of 03/14/2023) [facility] Narrative* Problem Noted Date Resolved Date Sciatica of left side 03/05/2022 05/02/2022 documented as of this encounter (statuses as of 03/20/2023) [facility] Narrative* Problem Noted Date Resolved Date Sciatica of left side 03/05/2022 05/02/2022 documented as of this encounter (statuses as of 03/23/2023) [facility] Narrative* Problem Noted Date Diagnosed Date Resolved Date Sciatica of left side 03/05/20222021 documented as of this encounter (statuses as of 04/14/2023) [facility] Narrative* Problem Noted Date Diagnosed Date Resolved Date Sciatica of left side 03/05/20222021 documented as of this encounter (statuses as of 04/16/2023) [facility] Narrative* Problem Noted Date Diagnosed Date Resolved Date Sciatica of left side 03/05/20222021 documented as of this encounter (statuses as of 04/25/2023) [facility] Narrative* Problem Noted Date Diagnosed Date Resolved Date Sciatica of left side 03/05/20222021 documented as of this encounter (statuses as of 05/10/2023) [facility] Narrative* Problem Noted Date Diagnosed Date Resolved Date Sciatica of left side 03/05/20222021 documented as of this encounter (statuses as of 05/13/2023) [facility] Narrative* Problem Noted Date Diagnosed Date Resolved Date Sciatica of left side 03/05/20222021 documented as of this encounter (statuses as of 05/17/2023) [facility] Narrative* Problem Noted Date Diagnosed Date Resolved Date Sciatica of left side 03/05/20222021 documented as of this encounter (statuses as of 05/23/2023) [facility] History of Past illness Narrative* Problem Noted Date Diagnosed Date Resolved Date Sciatica of left side 03/05/20222021 Type 1 diabetes mellitus wit h other specified complication 04/30/2021 06/06/2023 documented as of this encounter (statuses as of 06/06/2023) [facility] History of Past illness Narrative* Problem Noted Date Diagnosed Date Resolved Date Sciatica of left side 03/05/20222021 Type 1 diabetes mellitus wit h other specified complication 04/30/2021 06/06/2023 documented as of this encounter (statuses as of 06/28/2023) [facility] History of Past illness Narrative* Problem Noted Date Diagnosed Date Resolved Date Sciatica of left side 03/05/20222021 Type 1 diabetes mellitus wit h other specified complication 04/30/2021 06/06/2023 documented as of this encounter (statuses as of 07/11/2023) [facility] History of Past illness Narrative* Problem Noted Date Diagnosed Date Resolved Date Sciatica of left side 03/05/20222021 Type 1 diabetes mellitus wit h other specified complication 04/30/2021 06/06/2023 documented as of this encounter (statuses as of 07/16/2023) [facility] History of Past illness Narrative* Problem Noted Date Diagnosed Date Resolved Date Sciatica of left side 03/05/20222021 Type 1 diabetes mellitus wit h other specified complication 04/30/2021 06/06/2023 documented as of this encounter (statuses as of 07/24/2023) [facility] History of Past illness Narrative* Problem Noted Date Diagnosed Date Resolved Date Sciatica of left side 03/05/20222021 Type 1 diabetes mellitus wit h other specified complication 04/30/2021 06/06/2023 documented as of this encounter (statuses as of 07/25/2023) [facility] History of Past illness Narrative* Problem Noted Date Diagnosed Date Resolved Date Sciatica of left side 03/05/20222021 Type 1 diabetes mellitus wit h other specified complication 04/30/2021 06/06/2023 documented as of this encounter (statuses as of 08/03/2023) [facility] History of Past illness Narrative* Problem Noted Date Diagnosed Date Resolved Date Sciatica of left side 03/05/20222021 Type 1 diabetes mellitus wit h other specified complication 04/30/2021 06/06/2023 documented as of this encounter (statuses as of 08/03/2023) [facility] History of Past illness Narrative* Problem Noted Date Diagnosed Date Resolved Date Sciatica of left side 03/05/20222021 Type 1 diabetes mellitus wit h other specified complication 04/30/2021 06/06/2023 documented as of this encounter (statuses as of 08/21/2023) [facility] History of Past illness Narrative* Problem Noted Date Diagnosed Date Resolved Date Sciatica of left side 03/05/20222021 Type 1 diabetes mellitus wit h other specified complication 04/30/2021 06/06/2023 documented as of this encounter (statuses as of 08/21/2023) [facility] History of Past illness Narrative* Problem Noted Date Diagnosed Date Resolved Date Sciatica of left side 03/05/20222021 Type 1 diabetes mellitus wit h other specified complication 04/30/2021 06/06/2023 documented as of this encounter (statuses as of 08/25/2023) [facility] History of Past illness Narrative* Problem Noted Date Diagnosed Date Resolved Date Sciatica of left side 03/05/20222021 Type 1 diabetes mellitus wit h other specified complication 04/30/2021 06/06/2023 documented as of this encounter (statuses as of 09/02/2023) [facility] History of Present illness Narrative* Angelic Lopez, PT - 03/05/2022 10:17 AM EDT Episode Visit Count: Visit count could not be calculated. Make sure you are using a visit which is associated with an episode. Therapist That Will Oversee The Plan Of Care: Angelic Lopez PT Start of Care Date: 03/05/22 Onset Date: 03/05/21 Plan of Care Certification Date: 03/05/22 Next Certification Due Date: 04/16/22 Patient Identified by Name and Date of : Yes REHABILITATION AND SPORTS THERAPY PHYSICAL THERAPY EVALUATION PLAN OF CARE: Assessment: Maryanne Minaya presents with chief complaint of pain in left buttock region that interferes with walking;bending;squatting;rising from a chair . She presents with impairments in ADL's, gait, independence in exercise, overall function, range of motion, strength and tissue tenderness. PROMIS (Patient- Reported Outcomes Measurement Information System) scores were reviewed and physical function domain and social roles domain identified as a rehabilitation concern. Prognosis for therapy is Excellent due to: within-session changes;current objective clinical presentation . She will benefit from skilled therapy services to meet the goals established for this plan of care as noted below. Classification Low Back Pain Subgroup Classification: Core stabilization subgroup: recommended visits 10. Core Stabilization Subgroup Classification based on: pain with transitional movements Goals for Episode of Care: created on 03/05/22 through 04/16/22 Thomas in home exercise program. Patient will decrease pain to 2/10 with functional activities to allow patient to improve ambulation, transfers and standing tolerance for ADLs. Patient will demonstrate increase in core and hip strength to 5/5 during manual muscle testing in order to improve function for prior functional tasks. Patient will increase flexibility of piriformis to WNL to improve mechanics and decrease pain. Normal gait. Reciprocal stair negotiation. Patient Goals: be able to walk longer distances Planned Interventions, Frequency, and Duration: Current Frequency: 1x/week Duration: 4 weeks Total Number of Visits Planned: 4 Planned Treatment Interventions: Therapeutic exercise (52513);Neuromuscular re- education (40257);Manual therapy (58118);Self-assisted management (83152);Gait Training (36555);Patient/Family/Caregiver Education;Body Mechanics Training;Therapeutic activities (03210) PLAN FOR NEXT VISIT: will add possible isometric hip adduciton and TA series. Patient demonstrates good understanding of plan of care and treatment. The above goals and plan of care were discussed and agreed upon by patient/family. SUBJECTIVE: Maryanne Minaya is a 51 year old female seen today for Pain in right buttock and to the side of the hip. Hurts to walk Patient Goals: be able to walk longer distances Functional Limitations: walking;bending;squatting;rising from a chair Prior Level of Function: Independent without limitations Relevant History Preferred Language: [place] Employment: Unemployed Recreation / Current Exercise: walking with dog. Home Environment Patient Lives With: Family Home Type: Apt/Condo Entry To Home: Stairs;With Rail Number Of Stairs Into Home: 8 Intake Information: Prescription present Previous Treatment: Topicals;NSAIDs (tylenol, massage) Red Flags Vertebral Fracture Red Flags: Female Spine History Symptoms Since Onset: Worsening Pain is Worse Always: Standing;Walking Pain is Better Always: Lying Sleeping Position: Side lying right;Side lying left Pain: Pain Pain Level: 7 Pain Location: Buttocks - Left Description: Aching;Shooting Frequency: Continuous Post Treatment Pain Post Treatment Pain Level: Better Post Treatment Pain Location: Buttocks - Left Post Treatment Pain Description: Aching PROMIS Scales Higher is Better 04/28/2021 01/28/2022 01/28/2022 GH Physical - Score 34.9 (Poor) - 39.8 (Fair) GH Physical - Percentile 7 % 15 % 15 % GH Mental - Score 43.5 (Good) - 31.3 (Fair) GH Mental - Percentile 26 % 3 % 3 % T-scores: mean of general population = 50. 5 points is clinically meaningfully difference Percentiles provide an indication of how the patient's score ranks in relation to the general population. Higher percentile rankings indicate better function/quality of life. 50th percentile is the average of the general population and indicates half of respondents had a worse score. T-scores: mean of general population = 50. 5 points is clinically meaningfully difference Percentiles provide an indication of how the patient's score ranks in relation to the general population. Higher percentile rankings indicate better function/quality of life. 50th percentile is the average of the general population and indicates half of respondents had a worse score. OBJECTIVE MEASURES WITH LEVEL OF FUNCTION: Posture / Alignment Posture: Fair Lumbo - Pelvic Alignment: equal iliac crests Sitting Posture: Fair;Right lateral shift Hip Observations L Hip Palpation Tenderness: Piriformis Lumbar Spine AROM Lumbar Flexion: Normal;Increased pain Lumbar Extension: Minimal limitation;Increased pain;End range pain Lumbar R Side-Bend: Normal Lumbar L Side-Bend: Minimal limitation;Increased pain LE AROM R LE AROM: WNL L Hip Flexion: 120 Degrees LE Flexibility Flexibility: Piriformis Flexibility R Piriformis Flexibility: WNL L Piriformis Flexibility: moderate limitation with relief of sx during and after stretching LE Strength Trunk Strength: 3+/5 L Hip Flexion (L2): 5/5 L Hip Internal Rotation: 5/5 (with pain) L Hip External Rotation: 5/5 (no increased jpain) L Knee Extension (L3): 5/5 L Knee Flexion: 5/5 Functional Strength Functional Strength: difficulty with stairs and walking, transfers Gait Weight Bearing Status: FWB Gait: Independent Gait Device: None Gait Deviations: Left Lower Extremity Gait Deviations Left Lower Extremity: Stance time decreased;Weight bearing decreased;Step length decreased;Heel strike during initial stance decreased;Push off during terminal stance decreased Education: Education Learning Preferences: Demonstration;Explanation;Performance;Printed Materials Barriers: None Learning/educational needs: Home exercise program;Plan of Care Education Provided: Yes, see treatment interventions for education provided Education Provided To: Patient Education Mode/Type: Demonstration;Explanation/Discussion;Literature/Printed Materials;Performance Response to Education/Teach Back: States/Identifies;Return Demonstration TREATMENT: PT Treatment Interventions: Therapeutic Exercise;Gait Training Evaluation Therapeutic Exercise: 1: seated pirifomis stretch 30 sec x3 2: supine piriformis stretch 30 sec x3 3: hooklying and seated TA 1x10 each Skilled Intervention: Patient was educated in proper exercise technique and purpose for exercises. Skilled judgment was provided in selection of appropriate interventions. Provided written instruction for home exercise program to facilitate proper performance and compliance. Correct performance of therapeutic exercises was facilitated with verbal and visual cuing. Educated patient on rationale for performing exercises in regards to ROM and function . Patient education as noted. Gait Trainin: st. cane on level surfaces with education in sizing and proper use Skilled Intervention: Patient was provided supervision during pre-gait/gait training to prevent falls and insure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 region- Primary Thoracic or lumbosacral neuritis or radiculitis, unspecified Left hip pain Pain in joint, pelvic region and thigh documented in this encounter [facility] note* Diagnosis Radiculopathy, lumbosacral region- Primary Thoracic or lumbosacral neuritis or radiculitis, unspecified Left hip pain Pain in joint, pelvic region and thigh documented in this encounter [facility] note* Diagnosis Radiculopathy, lumbosacral region- Primary Thoracic or lumbosacral neuritis or radiculitis, unspecified Left hip pain Pain in joint, pelvic region and thigh documented in this encounter [facility] note* Diagnosis Gastroesophageal reflux disease without esophagitis Esophageal reflux documented in this encounter [facility] [place] [facility]* Diagnosis Essential hypertension- Primary Unspecified essential hypertension Type 1 diabetes mellitus with other specified complication (HCC) Acquired hypothyroidism Unspecified hypothyroidism Hyperlipidemia, unspecified hyperlipidemia type documented in this encounter [facility] [place] [facility]* Diagnosis Radiculopathy, lumbosacral region- Primary Thoracic or lumbosacral neuritis or radiculitis, unspecified Left hip pain Pain in joint, pelvic region and thigh documented in this encounter [facility] note* Diagnosis Type 1 diabetes mellitus with other specified complication (HCC) Neuropathy Mononeuritis of unspecified site documented in this encounter [facility] [place] [facility]* Diagnosis Injury of right elbow, initial encounter- Primary Vitamin D deficiency Unspecified vitamin D deficiency Surgical menopause Symptomatic states associated with artificial menopause Essential hypertension Unspecified essential hypertension [facility] [place] [facility]* Diagnosis Essential hypertension Unspecified essential hypertension documented [facility] this [facility] [place] [facility]* Diagnosis Lateral epicondylitis of right elbow- Primary Lateral epicondylitis of elbow Injury of right elbow, initial encounter Partial traumatic amputation of one right lesser toe, subsequent encounter (HCC) Diabetic foot ulcer with osteomyelitis (HCC) Type II or unspecified type diabetes mellitus with other specified manifestations, not stated as uncontrolled Morbid obesity (HCC) Morbid obesity [facility] Diagnosis Abscess of skin of abdomen- Primary Cellulitis and abscess of trunk documented [facility] this encounter [facility] [place] [facility]* Diagnosis Open wound of abdomen, initial encounter- Primary Abscess of skin of abdomen Cellulitis and abscess of trunk [facility] Diagnosis Open wound of abdomen, subsequent encounter- Primary Left adnexal tenderness Unspecified symptom associated with female genital organs Abnormal CT scan, pelvis Nonspecific (abnormal) findings on radiological and other examination of abdominal area, including retroperitoneum Acquired hypothyroidism Unspecified hypothyroidism Hematuria, unspecified type Medication management Encounter for long-term (current) use of other medications [facility] Diagnosis Open wound of abdomen, subsequent encounter- Primary Essential hypertension Unspecified essential hypertension Type 1 diabetes mellitus with other specified complication (HCC) Hyperlipidemia, unspecified hyperlipidemia type Meniere's disease, unspecified laterality Chronic cough Cough [facility] [place] [facility]* Diagnosis Essential hypertension- Primary Unspecified essential hypertension Left hip pain Pain in joint, pelvic region and thigh Other specified hypothyroidism documented in this encounter [facility] [place] [facility]* Diagnosis Low back pain, unspecified back pain laterality, unspecified chronicity, unspecified whether sciatica present- Primary Left hip pain Pain in joint, pelvic region and thigh Essential hypertension Unspecified essential hypertension [facility]* Diagnosis Left hip pain- Primary Pain in joint, pelvic region and thigh Essential hypertension Unspecified essential hypertension Palpitations Chronic cough Cough Tobacco use Tobacco use disorder Dysuria [facility]* Diagnosis Encounter for gynecological examination (general) (routine) without abnormal findings- Primary Encounter for screening mammogram for breast cancer Stress incontinence Female stress incontinence Morbid obesity (HCC) Morbid obesity documented in this encounter [facility] [place] [facility]* Diagnosis Surgical menopause Symptomatic states associated with artificial menopause [facility] Diagnosis Left adnexal tenderness Unspecified symptom associated with female genital organs Abnormal CT scan, pelvis Nonspecific (abnormal) findings on radiological and other examination of abdominal area, including retroperitoneum documented [facility] this encounter [facility]* Diagnosis Abnormal screening mammogram Abnormal mammogram, unspecified documented [facility] this [facility] Diagnosis Abnormal screening mammogram Abnormal mammogram, unspecified documented in this encounter [facility] [place] [facility]* Diagnosis Abnormal mammogram- Primary Abnormal mammogram, unspecified documented [facility] this [facility]* Diagnosis Type 1 diabetes mellitus with other specified complication (HCC) Neuropathy Mononeuritis of unspecified site documented in this encounter [facility] Narrative* Podiatry: Dr. Guillen [facility] * Patient presents to the [facility] outpatient clinic today for an initial evaluation of PAD and a nonhealing left hallux ulcer. * 50 y/o female with PMH of HTN, DM, SEUN, depression, and hypothyroidism. * Patient states she developed the left hallux ulcer back in October. After having dye for the MRI of the toe and being started on Vancomycin she developed SEUN and was on dialysis for 2 weeks. Since then her kidney function has improved and is back to normal. She no longer requires dialysis. Unfortun ately the wound has not gotten any better. She denies any LE rest pain or claudication. Edema limited to the toe. * Vascular testing shows an OSVALDO/TBI on the left of 1.12/1.05. * Denies any CP, SOB, and palpitations. [id number] Valorie Valadez 1500 DO Work Phone: reason for referral (narrative)* Diagnostic Procedure Only (Routine) - Closed Specialty Diagnoses / Procedures Referred By Subha krishnamurthy Referred To Contact XR IMAGING Diagnoses Left hip pain Procedures XR HIP GENERAL 3V PELV/AP/LAT LEFT RADEX HIP UNILATERAL WITH PELVIS 2-3 VIEWS Danielle Sandoval APRN.CNP [address] [place] [address] Xr Imaging Referral ID Status Reason Start Date Expiration Date V isits Requested Visits Authorized [id number] Closed Auto-Generate d Referral 03/01/2022 03/31/2023 1 1 [facility] for referral (narrative)* Diagnostic Procedure Only (Routine) - Pending Review Specialty Diagnoses / Procedures Referred By Contac t Referred To Contact BR IMAGING Diagnoses Breast cancer screening by mammogram Procedures APARNA SCREENING W EDITH SCREENING DIGITAL BREAST TOMOSYNTHESIS BI SCREENING MAMMOGRAPHY BI 2-VIEW BREAST INC CAD Starr Garcia MD [address] [place] [address] Br Imaging [address] [place] [address] Referral ID Status Reason Start Date Expiration Date Visits Requested Visits Authorized [id number] Pending Review Auto-Generat ed Referral 11/05/2022 2023 1 1 [facility] for referral (narrative)* - Pending Review Specialty Diagnoses / Procedures Referred By Christineac t Referred To Contact Physical Therapy Diagnoses Left hip pain Radiculopathy, lumbosacral region Procedures CONSULT TO PHYSICAL THERAPY Tammy Zhou PA-C [address] [place] [id number] Referral ID Status Reason Start Date Expiration Date V isits Requested Visits Authorized [id number] Pending Review 11/25/2022 02/23/2023 [address] [facility] [address] (narrative)* Diagnostic Procedure Only (Routine) - Authorized Specialty Diagnoses / Procedures Referred By Contac t Referred To Contact US IMAGING Diagnoses Left adnexal tenderness Abnormal CT scan, pelvis Procedures US FEMALE PELVIS TRANSVAG US TRANSVAGINAL Danielle Sandoval APRN.CNP [address] [place] [address] Us Imaging Referral ID Status Reason Start Date Expiration Date Visits Requested Visits Authorized [id number] Authorized Auto-Generat ed Referral 05/12/2023 06/10/2024 1 1 * Diagnostic Procedure Only (Routine) - Authorized Specialty Diagnoses / Procedures Referred By Contac t Referred To Contact US IMAGING Diagnoses Left adnexal tenderness Abnormal CT scan, pelvis Procedures US FEMALE PELVIS TRANSABD LTD US PELVIC NONOBSTETRIC IMAGE DCMTN LIMITED/F/U Danielle Sandoval APRN.SWISS MACHINIST [address] [place] [address] Us Imaging Referral ID Status Reason Start Date Expiration Date Visits Requested Visits Authorized [id number] Authorized Auto-Generat ed Referral 05/12/2023 06/10/2024 1 1 [facility] for referral (narrative)* Diagnostic Procedure Only (Urgent) - Closed Specialty Diagnoses / Procedures Referred By Contac t Referred To Contact XR IMAGING Diagnoses Low back pain, unspecified back pain laterality, unspecified chronicity, unspecified whether sciatica present Left hip pain Procedures XR LUMBAR GENERAL 3V AP/LAT/L5-S1 RADEX SPINE LUMBOSACRAL 2/3 VIEWS Alphonso Marks PA-C [address] [place] [address] [place] [id number] Referral ID Status Reason Start Date Expiration Date V isits Requested Visits Authorized [id number] Closed Auto-Generate d Referral 06/27/2023 07/26/2024 1 1 [facility] for referral (narrative)* Diagnostic Procedure Only (Routine) - Authorized Specialty Diagnoses / Procedures Referred By Contac t Referred To Contact BR IMAGING Diagnoses Encounter for gynecological examination (general) (routine) without abnormal findings Encounter for screening mammogram for breast cancer Procedures APARNA SCREENING W EDITH SCREENING DIGITAL BREAST TOMOSYNTHESIS BI SCREENING MAMMOGRAPHY BI 2-VIEW BREAST INC Lidia Hardin APRN.CNP [address] [place] [address] [facility] Imaging [address] [place] [address] Referral ID Status Reason Start Date Expiration Date Visits Requested Visits Authorized [id number] Authorized Auto-Generat ed Referral 08/21/2024 1 1 [facility] for referral (narrative)* Diagnostic Procedure Only (Routine) - Closed Specialty Diagnoses / Procedures Referred By Contac t Referred To Contact US IMAGING Diagnoses Left adnexal tenderness Abnormal CT scan, pelvis Procedures US FEMALE PELVIS TRANSVAG US TRANSVAGINAL Danielle Sandoval APRN.SWISS MACHINIST [address] [place] [address] [place] [address] Referral ID Status Reason Start Date Expiration Date V isits Requested Visits Authorized [id number] Closed Auto-Generate d Referral 05/12/2023 06/10/2024 1 1 * Diagnostic Procedure Only (Routine) - Closed Specialty Diagnoses / Procedures Referred By Contac t Referred To Contact US IMAGING Diagnoses Left adnexal tenderness Abnormal CT scan, pelvis Procedures US FEMALE PELVIS TRANSABD LTD US PELVIC NONOBSTETRIC IMAGE DCMTN LIMITED/F/U Danielle Sandoval APRN.SWISS MACHINIST [address] [place] [address] [place] [address] Referral ID Status Reason Start Date Expiration Date V isits Requested Visits Authorized [id number] Closed Auto-Generate d Referral 05/12/2023 06/10/2024 1 1 [facility] for referral (narrative)* Diagnostic Procedure Only (Routine) - Closed Specialty Diagnoses / Procedures Referred By Contac t Referred To Contact BR IMAGING Diagnoses Abnormal screening mammogram Procedures US BREAST LTD LEFT US BREAST UNI REAL TIME WITH IMAGE LIMITED Nimo Sandoval APRN.SWISS MACHINIST [address] [place] [address] Br Imaging [address] [place] [address] Referral ID Status Reason Start Date Expiration Date V isits Requested Visits Authorized [id number] Closed Auto-Generate d Referral 07/25/2023 08/23/2024 1 1 [facility] for referral (narrative)* Diagnostic Procedure Only (Routine) - Pending Review Specialty Diagnoses / Procedures Referred By Christineac t Referred To Contact BR IMAGING Diagnoses Abnormal mammogram Procedures US BREAST LTD LEFT US BREAST UNI REAL TIME WITH IMAGE LIMITED Nimo Sandoval APRN.SWISS MACHINIST [address] [place] [address] Br Imaging [address] [place] [address] Referral ID Status Reason Start Date Expiration Date Visits Requested Visits Authorized [id number] Pending Review Auto-Generat ed Referral 02/23/2024 09/23/2024 1 1 * Diagnostic Procedure Only (Routine) - Pending Review Specialty Diagnoses / Procedures Referred By Subha t Referred To Contact BR IMAGING Diagnoses Abnormal mammogram Procedures APARNA DIAGNOSTIC LEFT DIAGNOSTIC MAMMOGRAPHY COMPUTER-AIDED DETCJ [facility] Nimo Sandoval APRN.SWISS MACHINIST [address] [place] [address] Br Imaging [address] [place] [address] Referral ID Status Reason Start Date Expiration Date Visits Requested Visits Authorized [id number] Pending Review Auto-Generat ed Referral 02/23/2024 09/23/2024 1 1 [facility] for visit Narrative* Diagnostic Procedure Only (Routine) - Closed Specialty Diagnoses / Procedures Referred By Christineac t Referred To Contact [facility] IMAGING Diagnoses Abnormal screening mammogram Procedures APARNA DIAGNOSTIC LEFT DIAGNOSTIC MAMMOGRAPHY COMPUTER-AIDED DETCJ UNI Nimo Sandoval APRN.SWISS MACHINIST [address] [place] [address] Br Imaging [address] [place] [address] Referral ID Status Reason Start Date Expiration Date V isits Requested Visits Authorized [id number] Closed Auto-Generate d Referral 07/25/2023 08/23/2024 1 1 [facility] for visit Narrative* Diagnostic Procedure Only (Routine) - Closed Specialty Diagnoses / Procedures Referred By Contac t Referred To Contact BR IMAGING Diagnoses Abnormal screening mammogram Procedures US BREAST LTD LEFT US BREAST UNI REAL TIME WITH IMAGE LIMITED Older, Nimo, ADULT PSYCHIATRIST.SWISS MACHINIST [address] [place] [address] Br Imaging [address] [place] [address] Referral ID Status Reason Start Date Expiration Date V isits Requested Visits Authorized [id number] Closed Auto-Generate d Referral 07/25/2023 08/23/2024 [address] 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 Advance Directives and Livin g Will 03/28/2019 6:03 PM Latest Code Status on File Code Status Date Activated Date Inactivated Comments Full Code 03/28/2019 3:18 AM Documents on File Type Date Recorded 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 who is seen in the wound care center for right hallux amputation for osteomyelitis currently on IV antibiotics. States that they haven't had any issues in the last week. Physical: Vascular: DP/PT pulses are palpable +1/4 b/l. Mild lower extremity edema appreciated. Derm: Right hallux amputation site is 100% coapted without any gapping draining or erythema, intactProlene no purulence streaking or lymphangitis. Neuro: sharp dull is blunted. Protective sensation is diminished. Musk: Muscle strength to the lower extremity is 5/5 hallux amputation present, looks well no pain to the surgical site. No fluctuance or crepitation present. Procedures A/P Pt is a female 48 y.o. who is seen in the wound care center for right hallux amputation for acute osteomyelitis which at this point is resolved. Today after an alcohol prep, did remove all stitching.Continue IV antibiotics with the assistance of infectious disease. F/up in office in 1 month for follow-up. For care. Pablo Arcos Jr., DPM documented in this encounter* Haylee Atwood RN - 04/07/2019 6:52 PM EDT [facility] in [place]. Pt packed own belongings and placed on cart with EMS. * Mariano Kirkland MD - 04/07/2019 6:52 PM EDT Patient Name: Maryanne Minaya Admit Date: [id number] MR #: [id number] : 1970 Physicians: Glenroy Queen MD (Family); Dee Marx DO (Referring) Assessment: Patient with 1. Possible osteomyelitis of the right big toe 2. Chronic ulceration of the right big toe 3. Cellulitis of the right foot. 4. Fever 5. Uncontrolled diabetes 6. Vancomycin toxicity Plan. Continue patient on current therapy We will start on daptomycin intravenous Reviewed wound culture, and blood culture Endocrinology evaluation appreciated Follow-up ESR, C-reactive protein, We will follow-up labs and blood culture. Patient was status post right big toe amputation. Follow-up pathology, and bone cultures, with growth of Enterococcus faecalis, and Streptococcus viridans. Increase fluid intake. On Dc, continue on iv daptomycin. Follow-up in 1 to 2 weeks in my office or the wound clinic Follow-up renal function Subjective: No new symptoms, no fever, no chills,. No diarrhea, patient status post amputation of the right big toe Exam: PACU Vitals 04/07/19 0930 BP: Pulse: Resp: 16 Temp: SpO2: Allergies: Azithromycin; Clindamycin; and Erythromycin Current Facility-Administered Medications: acetaminophen (TYLENOL) tablet 650 mg, 650 mg, Oral, Q4H PRN, Yaritza Cain MD, 650 mg at 04/03/192116 alteplase (CATH WINSTON) injection 2 mg, 2 mg, Other, PRN, Mariano Kirkland MD atorvastatin (LIPITOR) tablet 80 mg, 80 mg, Oral, Daily, Yaritza Cain MD, 80 mg at 04/07/19927 DAPTOmycin (CUBICIN) 6 mg/kg = 550 mg in sodium chloride 0.9 % (NS) 61 mL IVPB, 6 mg/kg, Intravenous, Q24H, Mariano Kirkladn MD, Last Rate: 122 mL/hr at 04/07/19 1339, 550 mg at 04/07/19 1339 docusate sodium (COLACE) capsule 100 mg, 100 mg, Oral, BID, Maggy Kimbrough CNP, 100 mg at 04/07/19927 DULoxetine (CYMBALTA) DR capsule 60 mg, 60 mg, Oral, Daily, Yaritza Cain MD, 60 mg at 04/06/192129 enoxaparin (LOVENOX) syringe 40 mg, 40 mg, Subcutaneous, Daily, Yaritza Cain MD, 40 mg at 04/07/19927 famotidine (PEPCID) tablet 20 mg, 20 mg, Oral, BID, Yaritza Cain MD, 20 mg at 04/07/19 09 HYDROcodone-acetaminophen (NORCO) 5-325 mg per tablet 1 tablet, 1 tablet, Oral, Q4H PRN, Yaritza Cain MD, 1 tablet at 04/07/19 170 hydrOXYzine (ATARAX) tablet 100 mg, 100 mg, Oral, Nightly PRN, Maggy Kimbrough CNP, 100 mg at 04/05/192045 insulin glargine (LANTUS) injection 35 Units, 35 Units, Subcutaneous, Nightly, Nigel Chino CNP [START ON 04/08/2019] insulin glargine (LANTUS) injection 40 Units, 40 Units, Subcutaneous, QAM, Nigel Chino CNP insulin lispro (HumaLOG) injection 0-15 Units, 0-15 Units, Subcutaneous, at bedtime, Destiny Harris MD insulin lispro (HumaLOG) injection 0-30 Units, 0-30 Units, Subcutaneous, TID AC, Amarilis Guzmán CNP, 10 Units at 04/07/19 1704 levothyroxine (SYNTHROID, LEVOTHROID) tablet 112 mcg, 112 mcg, Oral, Daily, Haylee Krishnan [facility],PharmD, 112 mcg at 04/07/19 0622 lidocaine 10 mg/mL (1 %) injection 1 mL, 1 mL, Intradermal, Once PRN, Mariano Kirkland MD lisinopril (PRINIVIL,ZESTRIL) tablet 20 mg, 20 mg, Oral, Daily, Yaritza Cain MD, 20 mg at 04/07/19 0927 naloxone (NARCAN) injection 0.1 mg, 0.1 mg, Intravenous, PRN, Yaritza Cain MD naloxone (NARCAN) injection 0.4 mg, 0.4 mg, Intravenous, PRN, Yaritza Cain MD pregabalin (LYRICA) capsule 100 mg, 100 mg, Oral, Daily, Dominick Santos MD, 100 mg at 04/06/19 2134 sodium chloride (PF) (NS) flush 10 mL, 10 mL, Intracatheter, Q8H ASHLEY, Mariano Kirkland MD, 10 mL at 04/07/19 1340 sodium chloride (PF) (NS) flush 10-20 mL, 10-20 mL, Intracatheter, PRN, Mariano Kirkland MD [COMPLETED] Insert peripheral IV, , , Once AND Saline lock IV, , , Once AND sodium chloride(PF) (NS) flush 5 mL, 5 mL, Intravenous, PRN AND sodium chloride 0.9% (NS), 0-150 mL/hr, Intravenous, PRN, Isaac Duran PA-C traZODone (DESYREL) tablet 25 mg, 25 mg, Oral, Nightly, Yaritza Cain MD, 25 mg at 04/06/19 213 Current Outpatient Medications: albuterol (PROAIR HFA) 90 mcg/actuation inhaler, Inhale 2 puffs every 4 (four) hours as needed ., Disp: , Rfl: cyclobenzaprine (FLEXERIL) 10 MG tablet, Take 10 mg by mouth every 8 (eight) hours as needed ., Disp: , Rfl: DULoxetine (CYMBALTA) 60 MG capsule, Take 60 mg by mouth every morning ., Disp: , Rfl: 2 famotidine (PEPCID) 20 MG tablet, Take 20 mg by mouth 2 (two) times a day ., Disp: , Rfl: 0 fluticasone propionate (FLOVENT HFA) 44 mcg/actuation inhaler, Inhale 1 puff 2 (two) times a day asneeded ., Disp: , Rfl: hydrOXYzine (VISTARIL) 100 MG capsule, Take 100 mg by mouth nightly ., Disp: , Rfl: insulin aspart U-100 (NovoLOG) 100 unit/mL injection, Inject under the skin 3 (three) times a day before meals ., Disp: , Rfl: insulin detemir (LEVEMIR FLEXPEN SUBQ), Inject 50 Units under the skin 2 (two) times a day ., Disp:, Rfl: insulin glargine (LANTUS U-100 INSULIN) 100 unit/mL injection, Inject 30 Units under the skin ., Disp: , Rfl: insulin lispro (HumaLOG U-100 Insulin) 100 unit/mL injection, Inject 7 Units under the skin ., Disp: , Rfl: levothyroxine (SYNTHROID, LEVOTHROID) 112 MCG tablet, Take 112 mcg by mouth daily ., Disp: , Rfl: 11 meclizine (ANTIVERT) 25 mg tablet, every 12 (twelve) hours as needed ., Disp: , Rfl: mometasone (NASONEX) 50 mcg/actuation nasal spray, = 2 spray(s), Nasal, Daily, PRN for allergy symptoms, # 17 gram, Refills(s) 0, Disp: , Rfl: omeprazole (PRILOSEC) 40 MG capsule, 40 mg ., Disp: , Rfl: ondansetron (ZOFRAN-ODT) 4 MG disintegrating tablet, 4 mg 2 (two) times a day as needed ., Disp: , Rfl: pregabalin (LYRICA) 25 MG capsule, 25 mg ., Disp: , Rfl: rosuvastatin (CRESTOR) 20 MG tablet, 20 mg daily ., Disp: , Rfl: traZODone (DESYREL) 50 MG tablet, TAKE 1-2 TABLET AT BEDTIME NEEDED, Disp: , Rfl: 2 clonazePAM (KLONOPIN) 0.5 MG tablet, Take 1 (one) tablet (0.5 mg total) by mouth nightly for 10 days ., Disp: 10 tablet, Rfl: 0 DAPTOmycin 550 mg in sodium chloride 0.9 % 50 mL IVPB, Infuse 550 (five hundred fifty) mg into a venous catheter daily Cbc, bmp, esr, crp, cpk weekly x 4 weeks. Follow up with Dr Kirkland in 2 weeks. .,Disp: 30 Intravenous Bag, Rfl: 0 HYDROcodone-acetaminophen (NORCO) 5-325 mg per tablet, Take 1 (one) tablet by mouth every 4 (four) hours as needed ., Disp: 30 tablet, Rfl: 0 PMH/PSH/SH/FH reviewed, no change : Review of Systems: All systems were reviewed no change: Medications Reviewed. Chart Reviewed. Exam Findings: Neck: Supple, no rigidity ENT: No oral candidiasis Chest: Lungs clear bilaterally, no wheezing, or rales CVS: Normal S1 & S2+, Normal Rhythm Abdomen: Normal symmetry, Soft/non-tender. Benign, BS+ Extremities: No Deformities or Edema, right big toe with ulceration, and erythema. Tender to palpation, with dressings Skin: Intact & No Rashes, or excoriations Musculoskeletal: No joint swelling, non tender WORKFORCE CONSULTANT: Awake, and Ox3, with depressive look Wound: Big toe status post amputation, sutures in place, no drainage or wound gaping. Surrounding area with still erythema. Carrillo Catheter: None IV Access: Yes I reviewed Medications. I reviewed Labs. Laboratory and Additional Data Reviewed: Laboratory 04/07/19 7:53 PM Microbiology 04/07/19 7:53 PM Radiology 04/07/19 7:53 PM XR Foot Right 2 Views Final Result 1. Status post amputation of the phalanges of the great toe. No fracture or dislocation noted. 2. Moderate plantar calcaneal spurring. Workstation ID: [id number] Ultrasound duplex venous leg right Final Result MR Foot Right Without Contrast Final Result 1. There is an ulcer along the plantar aspect of the 1st toe medially extending deep into the soft tissues nearly to the plantar cortex of the base of the distal phalanx. There is associated [id number] subcutaneous edema and soft tissue swelling along the plantar aspect of the 1st toe and moderate subcutaneous edema and soft tissue swelling in the midfoot to forefoot suspicious for cellulitis. Correlation for the clinical extent of cellulitis would be helpful. 2. MRI findings are consistent with osteomyelitis in the distal and proximal phalanges of the 1st toe with increased STIR and low T1 signal. There is also suspected joint infection and septic arthritis involving the IP joint of the 1st toe. 3. No focal abscess. JML/jcw Workstation ID: [id number] XR Foot Right 3+ Views (Standard) Final Result 1. Subtle osteolysis of the lateral aspect of the proximal phalanx of 1st digit with soft tissue defect along the plantar surface of the 1st digit concerning for infection of the soft tissue as well as probably osteomyelitis. Further evaluation with 3-phase bone scan or MRI could be performed. 2. No definite fractures or dislocations. [facility] Workstation ID: [id number] Medications 04/07/19 7:53 PM Lab Results Component Value Date WBC 7.72 04/01/2019 HGB 11.0 (L) 04/01/2019 HCT 35.2 (L) 04/01/2019 MCV 88.4 04/01/2019 PLT 268 04/01/2019 Lab Results Component Value Date GLUCOSE 159 (H) 04/01/2019 CALCIUM 7.7 (L) 03/28/2019 NA 142 04/01/2019 K 3.4 (L) 04/01/2019 CL 109 (H) 04/01/2019 BUN 6 (L) 04/01/2019 CREATININE 1.78 (H) 04/07/2019 Problem List Items Addressed This Visit Other History of depression Relevant Medications clonazePAM (KLONOPIN) 0.5 MG tablet Other Visit Diagnoses Diabetic ulcer of toe of right foot associated with type 2 diabetes mellitus, with bone involvementwithout evidence of necrosis (HCC) - Primary Relevant Medications insulin glargine (LANTUS U-100 INSULIN) 100 unit/mL injection insulin lispro (HumaLOG U-100 Insulin) 100 unit/mL injection insulin glargine (LANTUS) injection 30 Units (Completed) insulin lispro (HumaLOG) injection 0-15 Units insulin lispro (HumaLOG) injection 0-30 Units insulin glargine (LANTUS) injection 40 Units (Start on 04/08/2019 9:00 AM) insulin glargine (LANTUS) injection 35 Units (Start on 04/07/2019 9:00 PM) HYDROcodone-acetaminophen (NORCO) 5-325 mg per tablet Other Relevant Orders Ambulatory ref to Long-Term Facili I discussed my management plans with Patient/and or Family member, and also discussed antibiotics therapy including side effects with Patient/and or Family member. Medical Decision Making: High * Javier Jarrell - 04/07/2019 3:34 PM EDT Transportation set up with [facility]. blooming mill supervisor time between [id number]. Nurse notified of picking tech time.Transportation form filled out and on chart ready for DC. * Haylee Atwood, CHUCK - 04/07/2019 3:22 PM EDT Report given to Tim WOODS at [facility] in [facility]. * Alphonso Canada MSW CHROME PLATER HELPER - 04/07/2019 11:42 AM EDT COMPLEX DISCHARGE Date: 04/07/2019 Time: 11:42 AM Patient Name: Maryanne Minaya Date of : 1970 Sex: Female Patient approved for [facility]. Sofia WOODS and patient informed of approval and plans for discharge today. Sofia WOODS to make contact with Dr. Medina for discharge order. Day of discharge bundle to be faxed as soon as discharge order is placed. HENS still to be completed. Javier Hurst to arrange transportation for cot through [facility]. Silk Opener to attachface sheet and transport form on transport envelope and place on patient chart. Extener also to inform Facility, and Sofia WOODS of transport time. No further needs identified. 14:19- Javier Hurst assisted RN with faxing script to DME for walker device. 15:00- Day of discharge bundle faxed and HENS completed. Discharge Plan Shared UM/CC and RN Source of Information: Patient Living Arrangements: Spouse/significant other Support Systems: Spouse/significant other, Family members Functional Status: Independent Type of Residence: Private residence Prior to Admission Home Care Services: No Current Home Equipment: None Insurance Coverage for Prescriptions: Yes Discharge Readiness Barriers to Discharge: No barriers [facility] Disposition D/C Disposition: Long-Term Facility Agency/Destination: ([facility]) Options Reviewed: List provided, Explained services/benefits Reason for Choice: Patient/Family prefernce * Haylee Atwood, RN - 04/07/2019 9:30 AM EDT Pt resting in bed and meds given. Dr. Kirkland in to see pt. And plan for 4wks of IV ATB and F/U with Dr. Kirkland in 2 weeks. Rt great toe amp site with sutures intact. No redness, swelling or drainage noted. Well approximated. Incision washed well with soap and water, patted dry, Incision cleaned with betadine. Adaptic, 4x4 [address]. Pt tolerated well. Up to BR with walker and leg cradle per self to void. Denies further needs. * Nigel Chino CNP - 04/07/2019 9:27 AM EDT Patient ID: Patient Name: Maryanne Minaya Admit Date: 03/27/2019 MR #: [id number] : 1970 Current location: [facility] Physicians: Glenroy Queen MD (Family); Clarice Geronimo DPM (Referring) Reason for consult: Type 2 diabetes out of control Assessment/Plan: Dx: Type 2 diabetes, under poor control Currently taking: No oral hypoglycemic medications Humalog insulin: SS units at breakfast; SS units at lunch; SS units at supper Levemir insulin: 50 units at breakfast; 50 units at bedtime Current Hemoglobin A1C= 14.3% 03/28/19 Lab Results Component Value Date HGBA1C 14.3 (H) 03/28/2019 NOTES: Patient admitted 03/27 with diabetic foot wound on right great toe. Patient has been under the care of podiatry and ID. Patient's A1c 14.3% as an outpatient. Reports taking levemir 50 BID with SS humalog. This regimen was continued until yesterday when she was started on 12 humalog TID in addition to 50 lantus BID. 04/02 BG reviewed. BG well-controlled in hospital. She is n.p.o. today for scheduled surgery. She reports that she was not taking care of herself prior to her admission. She plans to start taking better care of her diabetes after discharge. 04/05: She is s/p toe amputation on 04/02. BG control improving on current doses, appetite is stable. Unsure of plan following d/c. 04/06: BG reviewed over the past 24 hours. Patient is currently receiving Humalog 12 units with meals, 40 units Lantus BID. Her dinner dose of Humalog was held last night d/t BG of 2 (even though the patient ate dinner?) 04/07: Patient's BG reviewed over last 24 hours. Currently on humalog 10 TID with meals and lantus 40 BID. Blood Glucoses: 03/29: 270---231---298---309 03/30: 216---___---281---339 03/31: 283---177---177---136---205 04/01 115---127---154---129 04/02 97 04/03: 298---251---224---223 04/04: 160---148---83---309 04/05: 194---109---82---222 04/06: 148---80----274---128 04/07: 79(271) Plan: 1. Rx changes: none Humalog insulin: 12 units at breakfast; 12 units at lunch; 12 units at supper Lantus insulin: 40 units at breakfast; 40 units at bedtime 04/02 Reduce Lantus to 40 units BID and continue pre-meal Humalog 12 units TID. Hold scheduled insulin today while NPO. Change IV to D5NS at 100 cc/hr. 04/05: Continue current doses. Consult diabetic education. 04/06: Continue Lantus 40BID, Reduce to 10units at meals. 04/07: Continue humalog 10 TID, decrease PM dose of lantus to 35. 2. Education: Reviewed ABCs of diabetes management (respective goals in parentheses): A1C (7.0-8.0), blood pressure (<130/80), and cholesterol (LDL <100). Referral to Diabetes Education Referral to Nutrition therapy Subjective: Interval HPI: 04/02 she denies any chest pain, shortness of breath, abdominal discomfort. She is n.p.o. for surgery. She complains of right ankle and calf pain, as well as some swelling in her right lower leg. She is concerned that she could have a DVT. 04/05: Pt feeling stable this AM, she has felt couped up and has been going on walks, going outside. Her appetite is stable, she has no complaints for our service this AM. She is requesting further diabetic ed. 04/06: Patient denies any complaints today, awaiting dispo plan. She has been bertha. PO well. 04/07: No complaints today. Resting in bed. Brief HPI: Ms. Minaya is a 48-year-old female with a past history of hypertension, hyperlipidemia,type 2 diabetes mellitus and fibromyalgia. Patient presented to [facility] on 03/27/2019 with complaints of right great toe wound. Patient reports she has not seen a seat pack inspector in several months this ulceration appeared approximately 2 months ago. Patient was admitted for furtherevaluation and treatment podiatry care and infectious disease management. Patient's blood glucose levels since admission have been elevated between 177-339 mg/dL. She reports blurred vision, no double vision. She reports pain in her foot. She does report numbness and tingling in her feet as well. Sh e reports no recent weight gain. She has lost approximately 15 pounds she thinks. Patient has had diabetes for 20 years. Patient is reportedly taking Levemir 50 units BID and sliding scale as needed . Patient has taken Insulin for 20 years. Currently the patient is receiving Lantus and humalog. Blood sugar levels since admission have been ranging from 177-339 mg/dL. Complications of diabetes include: Retinopathy: Negative Nephropathy: Positive Peripheral Neuropathy: Positive Autonomic Neuropathy: Negative Allergies: Allergies Allergen Reactions Azithromycin Hives Clindamycin Hives Erythromycin Hives Home Medications: Outpatient Medications Marked as Taking for the 03/27/19 encounter (Hospital Encounter): albuterol (PROAIR HFA) 90 mcg/actuation inhaler, Inhale 2 puffs every 4 (four) hours as needed . atorvastatin (LIPITOR) 80 MG tablet, Take 80 mg by mouth daily . clonazePAM (KLONOPIN) 0.5 MG tablet, Take 0.5 mg by mouth at bedtime as needed . cyclobenzaprine (FLEXERIL) 10 MG tablet, Take 10 mg by mouth every 8 (eight) hours as needed . DULoxetine (CYMBALTA) 60 MG capsule, Take 60 mg by mouth every morning . famotidine (PEPCID) 20 MG tablet, Take 20 mg by mouth 2 (two) times a day . fluticasone propionate (FLOVENT HFA) 44 mcg/actuation inhaler, Inhale 1 puff 2 (two) times a day asneeded . hydroCHLOROthiazide (HYDRODIURIL) 50 MG tablet, Take 50 mg by mouth daily . hydrOXYzine (VISTARIL) 100 MG capsule, Take 100 mg by mouth nightly . insulin aspart U-100 (NovoLOG) 100 unit/mL injection, Inject under the skin 3 (three) times a day before meals . insulin detemir (LEVEMIR FLEXPEN SUBQ), Inject 50 Units under the skin 2 (two) times a day . insulin glargine (LANTUS U-100 INSULIN) 100 unit/mL injection, Inject 30 Units under the skin . insulin lispro (HumaLOG U-100 Insulin) 100 unit/mL injection, Inject 7 Units under the skin . levothyroxine (SYNTHROID, LEVOTHROID) 112 MCG tablet, Take 112 mcg by mouth daily . lisinopril (PRINIVIL,ZESTRIL) 20 MG tablet, Take 20 mg by mouth daily . meclizine (ANTIVERT) 25 mg tablet, every 12 (twelve) hours as needed . mometasone (NASONEX) 50 mcg/actuation nasal spray, = 2 spray(s), Nasal, Daily, PRN for allergy symptoms, # 17 gram, Refills(s) 0 naproxen sodium (ALEVE) 220 MG tablet, Take 220 mg by mouth 2 (two) times a day . omeprazole (PRILOSEC) 40 MG capsule, 40 mg . ondansetron (ZOFRAN-ODT) 4 MG disintegrating tablet, 4 mg 2 (two) times a day as needed . pregabalin (LYRICA) 25 MG capsule, 25 mg . rosuvastatin (CRESTOR) 20 MG tablet, 20 mg daily . traZODone (DESYREL) 50 MG tablet, TAKE 1-2 TABLET AT BEDTIME NEEDED Current Medications: atorvastatin 80 mg Oral Daily DAPTOmycin (CUBICIN) IVPB 6 mg/kg Intravenous Q24H docusate sodium 100 mg Oral BID DULoxetine 60 mg Oral Daily enoxaparin (LOVENOX) injection 40 mg Subcutaneous Daily famotidine 20 mg Oral BID insulin glargine 40 Units Subcutaneous BID lispro insulin 0-15 Units Subcutaneous at bedtime insulin lispro 0-30 Units Subcutaneous TID AC levothyroxine 112 mcg Oral Daily lisinopril 20 mg Oral Daily pregabalin 100 mg Oral Daily sodium chloride (PF) 10 mL Intracatheter Q8H ASHLEY traZODone 25 mg Oral Nightly acetaminophen, alteplase, HYDROcodone-acetaminophen, hydrOXYzine, lidocaine 1%, nalOXone, naloxone,sodium chloride (PF), [COMPLETED] Insert peripheral IV AND Saline lock IV AND sodium chloride (PF) AND sodium chloride 0.9 % Review of Systems: Review of Systems Constitutional: Positive for fatigue and unexpected weight change (weight loss). Eyes: Negative for visual disturbance. Respiratory: Negative for cough and shortness of breath. Cardiovascular: Positive for leg swelling. Negative for chest pain. Gastrointestinal: Negative for abdominal pain, constipation, diarrhea, nausea and vomiting. Endocrine: Negative for polydipsia, polyphagia and polyuria. Genitourinary: Negative for frequency and urgency. Musculoskeletal: Positive for arthralgias. Skin: Positive for color change and wound. Neurological: Positive for weakness and numbness (and tingling). Negative for headaches. Psychiatric/Behavioral: Negative for agitation and sleep disturbance. The patient is not nervous/anxious. History: Past Medical History: Diagnosis Date Acid reflux Diabetes mellitus (HCC) Diabetes mellitus, type 2 (HCC) Disease of thyroid gland hypothyroidism Fibromyalgia Hyperlipidemia Past Surgical History: Procedure Laterality Date AMPUTATION TOE(S) Right 04/02/2019 Procedure: RIGHT GREAT TOE AMPUTATION; Surgeon: Zeferino Geronimo DPM; Location: Main OR; Service: Podiatry APPENDECTOMY TONSILLECTOMY TUBAL LIGATION Family History Problem Relation Age of Onset Thyroid disease Mother Diabetes Maternal Aunt Diabetes Maternal Uncle Cancer Maternal Grandfather Heart disease Paternal Grandmother Social History Tobacco Use Smoking status: Current Every Day Smoker Packs/day: 0.25 Years: 30.00 Pack years: 7.50 Types: Cigarettes Smokeless tobacco: Never Used Substance Use Topics Alcohol use: Never Frequency: Never Drug use: Never The following portions of the patient's history were reviewed and updated as appropriate: allergies, current medications, past family history, past medical history, past social history, past surgicalhistory and problem list. Objective: BP 138/80 (BP Location: Left arm) Pulse 81 Temp 97.4 F (36.3 C) Resp 16 Ht 5' 5 Wt 93 kg(205 lb 0.4 oz) SpO2 95% BMI 34.12 kg/m Wt Readings from Last 3 Encounters: 03/28/19 93 kg (205 lb 0.4 oz) 03/28/19 93 kg (205 lb 0.4 oz) 03/09/19 96.6 kg (213 lb) Physical Exam: Physical Exam Constitutional: She is oriented to person, place, and time. She appears well- developed and well-nourished. HENT: Head: Normocephalic and atraumatic. Eyes: Pupils are equal, round, and reactive to light. Conjunctivae are normal. Neck: Normal range of motion. Neck supple. No thyromegaly present. Cardiovascular: Normal rate, regular rhythm, normal heart sounds and intact distal pulses. Exam reveals no friction rub. No murmur heard. Pulmonary/Chest: Effort normal and breath sounds normal. No respiratory distress. She has no wheezes. Abdominal: Soft. Bowel sounds are normal. She exhibits no distension. Musculoskeletal: Normal range of motion. She exhibits no edema. Right ankle and calf tender to palp Neurological: She is alert and oriented to person, place, and time. Skin: Skin is warm and dry. Right great toe incision with sutures in place, well approximated, no erythema or drainage noted. Psychiatric: She has a normal mood and affect. Her behavior is normal. Judgment and thought contentnormal. Laboratory Review: BP 138/80 (BP Location: Left arm) Pulse 81 Temp 97.4 F (36.3 C) Resp 16 Ht 5' 5 Wt 93 kg(205 lb 0.4 oz) SpO2 95% BMI 34.12 kg/m Lab Results Component Value Date HGBA1C 14.3 (H) 03/28/2019 Glucose (mg/dL) Date Value 04/01/2019 159 (H) Creatinine (mg/dL) Date Value 04/07/2019 1.78 (H) No results found for: CHOL, TRIG, HDL, LDLCALC, LDL No results found for: TSH No results found for: FREET4 Lab Results Component Value Date WBC 7.72 04/01/2019 HGB 11.0 (L) 04/01/2019 HCT 35.2 (L) 04/01/2019 MCV 88.4 04/01/2019 PLT 268 04/01/2019 This SmartLink has not been configured with any valid records. This SmartLink has not been configured with any valid records. Laboratory and Additional Data Reviewed: Laboratory 04/07/19 9:27 AM Medications 04/07/19 9:27 AM Transcriptions, Radiology 04/07/19 9:27 AM Thank you for this consultation, we will continue to follow this patient with you. Electronically signed by: Noel Skelton PA-C, [facility] 04/07/19 9:27 AM Nigel Chino CNP * Victor Hugo Alcaraz DPM - 04/07/2019 7:04 AM EDT Podiatry Inpatient Follow-up 04/07/2019 Victor Hugo Alcaraz DPM [facility] Patient: Maryanne Minaya Date of : 1970 (48 y.o.) PCP: Glenroy Queen MD ASSESSMENT/PLAN: Maryanne Minaya 48 y.o. female with history of 1. Diabetes mellitus with peripheral neuropathy, (hemoglobin A1c 14.3) 2. Fibromyalgia 3. Status post right great toe amputation healing nice. Plan: Patient was seen and evaluated at the bedside, I discussed the findings with the patient. Patient was given opportunity to ask questions. Patient elects to have the following treatment as follows: 1. Patient is 5 days status post right great toe amputation. She is feeling much better. 2. New dry sterile dressing was applied patient can keep dressing dry clean intact ~wound care visit. 3. Noted the bone culture sent from the midportion of the hallux interphalangeal joint which broke apart during the amputation was positive for both light growth enterococcus and Streptococcus group viridans. 4. Intravenous antibiotics per infectious disease. Pt getting PICC today 5. Patient will need outpatient follow-up with the wound care center within 2 days of discharge with Dr. James in the wound center. 6. Patient can be discharged today and podiatry will sign off. SUBJECTIVE: History Since Last Visit: Patient is a 48-year-old diabetic female with severely uncontrolled diabetes. Hemoglobin A1c is 14.3. Patient underwent amputation of her right great toe yesterday. She relates she is doing fine this today. She states she feels better after having it removed. She has no other complaints today. Patient denies nausea, vomiting, fever, chills, and diarrhea. Interpretation of Testing: I personally reviewed the labs and agree with the interpretation(s). Review of Systems: Constitutional:No fever, no weight loss CV:No chest pain. No ankle swelling Integumentary:No skin rash Heme/lymphatic:No apparent lymphadenopathy Allergic/Immunologic:No hives Psych:No unusual mood swings All other systems reviewed and negative other than HPI OBJECTIVE: Physical Examination: BP (!) 91/59 Pulse 76 Temp 97.6 F (36.4 C) (Oral) Resp 16 Ht 5' 5 Wt 93 kg (205 lb 0.4 oz) SpO2 93% BMI 34.12 kg/m Vascular: Peripheral pulses are palpable at 2 out of 4 for the right dorsalis pedis pulse, 2 out of4 for the left dorsalis pedis pulse, 2 out of 4 the right posterior tibial pulse, 2 out of 4 for the left posterior tibial pulse. CFT is less than 3 seconds bilaterally. Skin temperature is warm to warm proximal to distal on right. Nonpitting edema is present today which is significantly decreased from what was present yesterday at the amputation site. No increase in warmth to calf, no proximal streaking or lymphangitis. Neurological: Epicritic sensation is grossly absent bilateral via light touch. Babinski test is plantigrade bilaterally. Achilles reflex is present bilateral. Patient is able to follow 2-step commands. No gross motor deficit appreciated at this time bilateral lower extremities. Dermatologic: Amputation site is well coapted without drainage. Dried blood is noted at the center of the incision line. There is no necrosis present. Postoperative edema has markedly decreased.. No dehiscence is present. Please refer to the clinical pictures below: Musculoskeletal: Range of motion of the lower extremity at the ankle is diminished range of motion.Muscle strength is 5/5 for all muscle groups . Pain is present on palpation to 1 PIP joint severe pain on the right. Right calf pain. Laboratory and Additional Data Reviewed: Reviewed 04/07/19 7:04 AM: Laboratory, Microbiology, Pathology, Medications and Transcriptions * Tin Wilkes PTA - 04/06/2019 2:07 PM EDT Physical Therapy PHYSICAL THERAPY TREATMENT NOTE Skilled Therapy Needs After Discharge Are Skilled Therapy Services Needed After Discharge: Yes Intensity of Skilled Therapy: Up to 5 days per week(pt would like to go to SNF by son and mom) DME Recommendation: (aldair castaneda) DME Rationale: Patient's condition prevents him/her from accomplishing ADL without recommended equipment, Patient's condition creates an increased risk of safety hazard without recommended equipment,Equipment required to maintain weight bearing status per physician orders Rehab Potential: Excellent Outcomes Measures Prior Function - Basic Mobility % Impaired: AM-PAC - Basic Mobility Raw Score: 19 Points AM-PAC - Basic Mobility % Impaired: 36.99% functionally impaired Activity Tolerance fair Therapy Precautions Orthotic Devices: No Weight Bearing Status: X RLE: Non Wt bearing General Rehab Precautions: Fall risk(up with 1 assist with transfer( walker with kneeler)) Balance Sitting Balance - Static: Sits without support for more than 30 seconds Sitting Balance - Dynamic: Moves / returns trunkal midpoint more than 2 inches in all planes Standing Balance - Static: Supports self independantly with both upper extremities Skilled Intervention: PT and INVESTMENT PROFESSIONAL educated Pt on importance of maintaing NWB status with transfer and gait to imporve heeling process per order. Pt has been ambulating and transfering on R heel. Pt states she is unable or willing to amb on L LE only at this time, Pt was educated on amb with aldair, Pt was familiar and was agreeable to trial kneeler attachmenet on walker. Pt was also agreeableto adhere to NWB status on R LE from this point on. Bed Mobility Sit to Supine: Modified Thomas Transfers Sit to Stand: Stand by assistance Bed to Chair: Contact guard Stand Pivot Transfers: Contact guard Media Monitor: Wheeled walker Skilled Intervention: Pt able to maintain NWB status with R LE with functional transfer, Gait/Locomotion Gait Assistance: Contact guard Assistive Device: Wheeled walker(kneeler attachement) Distance: 60 Feet Pattern: Step to Weight Bearing Status: Able to maintain Skilled Intervention: Pt was provided with verbal/visual demonstration for correct tech and sequence with amb using kneeler attachment on walker, Pt able to amb 60 with good tech with slow pace with cues for foot placement an walker control for safety with good carryover Exercise Ankle Pumps: x20 caryn Straight Leg Raise: x20 caryn Quad Sets: x20 caryn Heelslides: x20 caryn Hip Abduction: x20 caryn (hip add x20 ) Short Arc Quad: x20 caryn Skilled Intervention: verbal cues to correct form for strengthening Home Living Type of Home: Apartment Home Layout: One level Bathroom Shower/Tub: Tub/shower unit Bathroom Toilet: Standard Bathroom Equipment: Shower chair Home Equipment: (has shower chair) Additional Comments: Pt lives w/ her SO's mother in a ground floor apt. 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 For complete objective data, detailed plan of care and patient education refer to: PT EVALUATION flow sheet, PT TREATMENT flow sheet, patient Plan of Care, Plan of Care progress note, and Patient Education. This note stands as the current Discharge Summary upon patient discharge from the hospital or completion of Physical Therapy Plan of Care. * Ronald Medina MD - 04/06/2019 1:40 PM EDT [facility] Medicine Inpatient Follow-up 04/06/2019 Ronald Medina MD [facility] Patient: Maryanne Minaya Date of : 1970 (48 y.o.) PCP: Glenroy Queen MD ASSESSMENT/PLAN: Maryanne Minaya 48 y.o. female presented with complains of foot infection Active Problems: Diabetic foot (HCC) Diabetes mellitus type 2, uncontrolled, with complications (HCC) PLAN: 04/05 -- CLINICALLY STABLE -- AFEBRILE -- NO LEUKOCYTOSIS -- KIDNEY FUNCTION IS WORSE TODAY -- VANCOMYCIN WAS DCED -- HOLD HCTZ -- BMP IN AM -- ON ZOSYN IV -- ID IS FOLLOWING -- DC PLANNING: STILL WE DO NOT HAVE CLEAR DC PLANNING FROM ID -- SOCIAL SERVICE CONSULT 04/06 -- CLINICALLY STABLE -- NO COMPLAINTS -- NO FEVER OR CHILLS -- KIDNEY FUNCTION IS SLIGHTLY WORSE -- VANCOMYCIN WAS DCED -- DAPTOMYCINE IV -- ID IS FOLLOWING -- DISCHARGE PLANNING : SNF -- SOCIAL SERVICE CONSULT FOR DC PLANNING SUBJECTIVE: Denies complaints. DOING BETTER All other systems reviewed and negative other than noted above. OBJECTIVE: Physical Examination: BP 128/64 (Patient Position: Lying) Pulse 80 Temp 97.2 F (36.2 C) (Axillary) Resp 16 Ht 5' 5 Wt 93 kg (205 lb 0.4 oz) SpO2 94% BMI 34.12 kg/m General Appearance: Alert, well appearing, and in no acute distress. HEENT: Head - Normocephalic, atraumatic. Eyes - BRANDON bilaterally and EOMI. Ears - normal external appearance, hearing intact. Nose - normal, no erythema. Throat - mucous membranes moist, pharynx without lesions. Neck: Supple, trachea midline. Cardiovascular: S1, S2 normal. No murmurs, rubs, clicks or gallops appreciated. No pedal edema. Respiratory: Lungs clear to auscultation, no wheezes, rales or rhonchi heard. Abdomen: Soft, non-tender, normal bowel sounds, non-distended, no masses or organomegaly appreciated. Neurological: Grossly normal motor and sensory exam. No focal deficits. Musculoskeletal: No joint tenderness, deformity or swelling. Skin: rt foot in dressing Psych: Alert, oriented x 3. Normal mood and affect. CURRENT MEDICATIONS: atorvastatin 80 mg Oral Daily DAPTOmycin (CUBICIN) IVPB 6 mg/kg Intravenous Q24H docusate sodium 100 mg Oral BID DULoxetine 60 mg Oral Daily enoxaparin (LOVENOX) injection 40 mg Subcutaneous Daily famotidine 20 mg Oral BID insulin glargine 40 Units Subcutaneous BID lispro insulin 0-15 Units Subcutaneous at bedtime insulin lispro 0-30 Units Subcutaneous TID AC [START ON 04/07/2019] levothyroxine 112 mcg Oral Daily lisinopril 20 mg Oral Daily pregabalin 100 mg Oral Daily sodium chloride (PF) 10 mL Intracatheter Q8H ASHLEY traZODone 25 mg Oral Nightly Results/Medications Reviewed 04/06/19 1:40 PM: Results from last 7 days Lab Units 04/06/19 0536 04/05/19 1108 04/03/19 0500 04/01/19 0553 03/31/19 0437 SODIUM mmol/L -- -- -- 142 139 POTASSIUM mmol/L -- -- -- 3.4* 3.6 CHLORIDE mmol/L -- -- -- 109* 105 BUN mg/dL -- -- -- 6* 10 CREATININE mg/dL 1.65* 1.52* 0.97 0.44 0.54 GLUCOSE mg/dL -- -- -- 159* 277* Results from last 7 days Lab Units 04/01/19 0551 03/31/19 0437 WBC K/mcL 7.72 7.95 HGB g/dL 11.0* 12.0 HCT % 35.2* 37.9 PLT K/mcL 268 276 Invalid input(s): LABALBU CULTURES: Reviewed 1:40 PM IMAGING: Reviewed 1:40 PM * Alphonso Canada MSW [employer] PLATER HELPER - 04/06/2019 12:04 PM EDT DISCHARGE PLAN PROGRESS NOTE Date: 04/06/2019 Time: 12:04 PM Patient Name: Maryanne Minaya Date of : 1970 Sex: Female OT note completed this AM and therapy notes faxed to Ayde Nguyen at [facility]. Ayde Nguyen at [facility] informed of fax and new fax with Dr. Kirkland's plans. Ayde Nguyen explained she submitted clinicals on 04/05 and will send therapy notes today on 04/06. Attempt to call [facility]ory [facility] through [employer] who left voicemail requesting discharge plans. No extension given and this social economist unable to be transf erred to correct department after several tries. Patient informed of precert process. [facility] following. Discharge Readiness Barriers to Discharge: No barriers [facility] Disposition D/C Disposition: Long-Term Facility Options Reviewed: List provided, Explained services/benefits Reason for Choice: Patient/Family prefernce * Mariano Kirkland MD - 04/06/2019 11:38 AM EDT Patient Name: Maryanne Minaya Admit Date: [id number] MR #: [id number] : 1970 Physicians: Glenroy Queen MD (Family); Dee Marx DO (Referring) Assessment: Patient with 1. Possible osteomyelitis of the right big toe 2. Chronic ulceration of the right big toe 3. Cellulitis of the right foot. 4. Fever 5. Uncontrolled diabetes 6. Vancomycin toxicity Plan. Continue patient on current therapy S/p Discontinue vancomycin We will start on daptomycin intravenous Reviewed wound culture, and blood culture Endocrinology evaluation appreciated Follow-up ESR, C-reactive protein, We will follow-up labs and blood culture. Patient was status post right big toe amputation. Follow-up pathology, and bone cultures, with growth of Enterococcus faecalis, and Streptococcus viridans. Increase fluid intake. On Dc, continue on iv daptomycin. Subjective: No new symptoms, no fever, no chills,. No diarrhea, patient status post amputation of the right big toe Exam: PACU Vitals 04/06/19 0807 BP: 128/64 Pulse: Resp: 16 Temp: 97.2 F (36.2 C) SpO2: 94% Allergies: Azithromycin; Clindamycin; and Erythromycin Current Facility-Administered Medications: acetaminophen (TYLENOL) tablet 650 mg, 650 mg, Oral, Q4H PRN, Yaritza Cain MD, 650 mg at 04/03/19 2117 alteplase (CATH WINSTON) injection 2 mg, 2 mg, Other, PRN, Mariano Kirkland MD atorvastatin (LIPITOR) tablet 80 mg, 80 mg, Oral, Daily, Yaritza Cain MD, 80 mg at 04/06/19 102 DAPTOmycin (CUBICIN) 6 mg/kg = 550 mg in sodium chloride 0.9 % (NS) 61 mL IVPB, 6 mg/kg, Intravenous, Q24H, Mariano Kirkland MD docusate sodium (COLACE) capsule 100 mg, 100 mg, Oral, BID, Maggy Kimbrough CNP, 100 mg at 04/06/191026 DULoxetine (CYMBALTA) DR capsule 60 mg, 60 mg, Oral, Daily, Yaritza Cain MD, 60 mg at 04/05/192045 enoxaparin (LOVENOX) syringe 40 mg, 40 mg, Subcutaneous, Daily, Yaritza Cain MD, 40 mg at 04/06/19817 famotidine (PEPCID) tablet 20 mg, 20 mg, Oral, BID, Yaritza Cain MD, 20 mg at 04/06/19 1028 HYDROcodone-acetaminophen (NORCO) 5-325 mg per tablet 1 tablet, 1 tablet, Oral, Q4H PRN, Yaritza Cain MD, 1 tablet at 04/06/19 1037 hydrOXYzine (ATARAX) tablet 100 mg, 100 mg, Oral, Nightly PRN, Maggy Kimbrough CNP, 100 mg at 04/05/192045 insulin glargine (LANTUS) injection 40 Units, 40 Units, Subcutaneous, BID, Destiny Harris MD, 40 Units at 04/06/197 insulin lispro (HumaLOG) injection 0-15 Units, 0-15 Units, Subcutaneous, at bedtime, Destiny Harris MD insulin lispro (HumaLOG) injection 0-30 Units, 0-30 Units, Subcutaneous, TID AC, Destiny Harris MD, 16 Units at 04/06/19 0818 [START ON 04/07/2019] levothyroxine (SYNTHROID, LEVOTHROID) tablet 112 mcg, 112 mcg, Oral, Daily, Haylee Krishnan RP,PharmD lidocaine 10 mg/mL (1 %) injection 1 mL, 1 mL, Intradermal, Once PRN, Mariano Kirkland MD lisinopril (PRINIVIL,ZESTRIL) tablet 20 mg, 20 mg, Oral, Daily, Yaritza Cain MD, 20 mg at 04/06/19 1030 naloxone (NARCAN) injection 0.1 mg, 0.1 mg, Intravenous, PRN, Yaritza Cain MD naloxone (NARCAN) injection 0.4 mg, 0.4 mg, Intravenous, PRN, Yaritza Cain MD pregabalin (LYRICA) capsule 100 mg, 100 mg, Oral, Daily, Dominick Santos MD, 100 mg at 04/05/192045 sodium chloride (PF) (NS) flush 10 mL, 10 mL, Intracatheter, Q8H ASHLEY, Mariano Kirkland MD, 10 mL at 04/06/19 0600 sodium chloride (PF) (NS) flush 10-20 mL, 10-20 mL, Intracatheter, PRN, Mariano Kirkland MD [COMPLETED] Insert peripheral IV, , , Once AND Saline lock IV, , , Once AND sodium chloride(PF) (NS) flush 5 mL, 5 mL, Intravenous, PRN AND sodium chloride 0.9% (NS), 0-150 mL/hr, Intravenous, PRN, Isaac Duran PA-C traZODone (DESYREL) tablet 25 mg, 25 mg, Oral, Nightly, Yaritza Cain MD, 25 mg at 04/05/192044 PMH/PSH// reviewed, no change : Review of Systems: All systems were reviewed no change: Medications Reviewed. Chart Reviewed. Exam Findings: Neck: Supple, no rigidity ENT: No oral candidiasis Chest: Lungs clear bilaterally, no wheezing, or rales CVS: Normal S1 & S2+, Normal Rhythm Abdomen: Normal symmetry, Soft/non-tender. Benign, BS+ Extremities: No Deformities or Edema, right big toe with ulceration, and erythema. Tender to palpation, with dressings Skin: Intact & No Rashes, or excoriations Musculoskeletal: No joint swelling, non tender WORKFORCE CONSULTANT: Awake, and Ox3, with depressive look Wound: Big toe status post amputation, sutures in place, no drainage or wound gaping. Surrounding area with still erythema. Carrillo Catheter: None IV Access: Yes I reviewed Medications. I reviewed Labs. Laboratory and Additional Data Reviewed: Laboratory 04/06/19 11:38 AM Microbiology 04/06/19 11:38 AM Radiology 04/06/19 11:38 AM XR Foot Right 2 Views Final Result 1. Status post amputation of the phalanges of the great toe. No fracture or dislocation noted. 2. Moderate plantar calcaneal spurring. Workstation ID: [id number] Ultrasound duplex venous leg right Final Result MR Foot Right Without Contrast Final Result 1. There is an ulcer along the plantar aspect of the 1st toe medially extending deep into the soft tissues nearly to the plantar cortex of the base of the distal phalanx. There is associated [id number] subcutaneous edema and soft tissue swelling along the plantar aspect of the 1st toe and moderate subcutaneous edema and soft tissue swelling in the midfoot to forefoot suspicious for cellulitis. Correlation for the clinical extent of cellulitis would be helpful. 2. MRI findings are consistent with osteomyelitis in the distal and proximal phalanges of the 1st toe with increased STIR and low T1 signal. There is also suspected joint infection and septic arthritis involving the IP joint of the 1st toe. 3. No focal abscess. NINFA/rickey Workstation ID: [id number] XR Foot Right 3+ Views (Standard) Final Result 1. Subtle osteolysis of the lateral aspect of the proximal phalanx of 1st digit with soft tissue defect along the plantar surface of the 1st digit concerning for infection of the soft tissue as well as probably osteomyelitis. Further evaluation with 3-phase bone scan or MRI could be performed. 2. No definite fractures or dislocations. [facility] Workstation ID: [id number] Medications 04/06/19 11:38 AM Lab Results Component Value Date WBC 7.72 04/01/2019 HGB 11.0 (L) 04/01/2019 HCT 35.2 (L) 04/01/2019 MCV 88.4 04/01/2019 PLT 268 04/01/2019 Lab Results Component Value Date GLUCOSE 159 (H) 04/01/2019 CALCIUM 7.7 (L) 03/28/2019 NA 142 04/01/2019 K 3.4 (L) 04/01/2019 CL 109 (H) 04/01/2019 BUN 6 (L) 04/01/2019 CREATININE 1.65 (H) 04/06/2019 Problem List Items Addressed This Visit None Visit Diagnoses Diabetic ulcer of toe of right foot associated with type 2 diabetes mellitus, with bone involvementwithout evidence of necrosis (HCC) - Primary Relevant Medications insulin glargine (LANTUS U-100 INSULIN) 100 unit/mL injection insulin lispro (HumaLOG U-100 Insulin) 100 unit/mL injection insulin lispro (HumaLOG) injection 0-30 Units insulin glargine (LANTUS) injection 30 Units (Completed) insulin glargine (LANTUS) injection 40 Units insulin lispro (HumaLOG) injection 0-15 Units Other Relevant Orders Ambulatory ref to [facility] Fac[facility] I discussed my management plans with Patient/and or Family member, and also discussed antibiotics therapy including side effects with Patient/and or Family member. Medical Decision Making: High * Amarilis Guzmán CNP - 04/06/2019 9:58 AM EDT Patient ID: Patient Name: Maryanne Minaya Admit Date: 03/27/2019 MR #: [id number] : 1970 Current location: [facility] Physicians: Glenroy Queen MD (Family); Clarice Geronimo DPM (Referring) Reason for consult: Type 2 diabetes out of control Assessment/Plan: Dx: Type 2 diabetes, under poor control Currently taking: No oral hypoglycemic medications Humalog insulin: SS units at breakfast; SS units at lunch; SS units at supper Levemir insulin: 50 units at breakfast; 50 units at bedtime Current Hemoglobin A1C= 14.3% 03/28/19 Lab Results Component Value Date HGBA1C 14.3 (H) 03/28/2019 NOTES: Patient admitted 03/27 with diabetic foot wound on right great toe. Patient has been under the care of podiatry and ID. Patient's A1c 14.3% as an outpatient. Reports taking levemir 50 BID with SS humalog. This regimen was continued until yesterday when she was started on 12 humalog TID in addition to 50 lantus BID. 04/02 BG reviewed. BG well-controlled in hospital. She is n.p.o. today for scheduled surgery. She reports that she was not taking care of herself prior to her admission. She plans to start taking better care of her diabetes after discharge. 04/05: She is s/p toe amputation on 04/02. BG control improving on current doses, appetite is stable. Unsure of plan following d/c. 04/06: BG reviewed over the past 24 hours. Patient is currently receiving Humalog 12 units with meals, 40 units Lantus BID. Her dinner dose of Humalog was held last night d/t BG of 2 (even though the patient ate dinner?) Blood Glucoses: 03/29: 270---231---298---309 03/30: 216---___---281---339 03/31: 283---177---177---136---205 04/01 115---127---154---129 04/02 97 04/03: 298---251---224---223 04/04: 160---148---83---309 04/05: 194---109---82---222 04/06: 148 Plan: 1. Rx changes: none Humalog insulin: 12 units at breakfast; 12 units at lunch; 12 units at supper Lantus insulin: 40 units at breakfast; 40 units at bedtime 04/02 Reduce Lantus to 40 units BID and continue pre-meal Humalog 12 units TID. Hold scheduled insulin today while NPO. Change IV to D5NS at 100 cc/hr. 04/05: Continue current doses. Consult diabetic education. 04/06: Continue Lantus 40BID, Reduce to 10units at meals. 2. Education: Reviewed ABCs of diabetes management (respective goals in parentheses): A1C (7.0-8.0), blood pressure (<130/80), and cholesterol (LDL <100). Referral to Diabetes Education Referral to Nutrition therapy Subjective: Interval HPI: 04/02 she denies any chest pain, shortness of breath, abdominal discomfort. She is n.p.o. for surgery. She complains of right ankle and calf pain, as well as some swelling in her right lower leg. She is concerned that she could have a DVT. 04/05: Pt feeling stable this AM, she has felt couped up and has been going on walks, going outside. Her appetite is stable, she has no complaints for our service this AM. She is requesting further diabetic ed. 04/06: Patient denies any complaints today, awaiting dispo plan. She has been bertha. PO well. Brief HPI: Ms. Minaya is a 48-year-old female with a past history of hypertension, hyperlipidemia,type 2 diabetes mellitus and fibromyalgia. Patient presented to [facility] on 03/27/2019 with complaints of right great toe wound. Patient reports she has not seen a seat pack inspector in several months this ulceration appeared approximately 2 months ago. Patient was admitted for furtherevaluation and treatment podiatry care and infectious disease management. Patient's blood glucose levels since admission have been elevated between 177-339 mg/dL. She reports blurred vision, no double vision. She reports pain in her foot. She does report numbness and tingling in her feet as well. Sh e reports no recent weight gain. She has lost approximately 15 pounds she thinks. Patient has had diabetes for 20 years. Patient is reportedly taking Levemir 50 units BID and sliding scale as needed . Patient has taken Insulin for 20 years. Currently the patient is receiving Lantus and humalog. Blood sugar levels since admission have been ranging from 177-339 mg/dL. Complications of diabetes include: Retinopathy: Negative Nephropathy: Positive Peripheral Neuropathy: Positive Autonomic Neuropathy: Negative Allergies: Allergies Allergen Reactions Azithromycin Hives Clindamycin Hives Erythromycin Hives Home Medications: Current Facility-Administered Medications Medication Dose Route Frequency Provider Last Rate Last Dose acetaminophen (TYLENOL) tablet 650 mg 650 mg Oral Q4H PRN Yaritza Cain MD 650 mg at 04/03/192116 alteplase (CATH WINSTON) injection 2 mg 2 mg Other PRN Mariano Kirlkand MD atorvastatin (LIPITOR) tablet 80 mg 80 mg Oral Daily Yaritza Cain MD 80 mg at 04/05/19 08 docusate sodium (COLACE) capsule 100 mg 100 mg Oral BID Maggy Kimbrough CNP 100 mg at 07 DULoxetine (CYMBALTA) DR capsule 60 mg 60 mg Oral Daily Yaritza Cain MD 60 mg at 04/05/192045 enoxaparin (LOVENOX) syringe 40 mg 40 mg Subcutaneous Daily Yaritza Cain MD 40 mg at 04/06/19817 famotidine (PEPCID) tablet 20 mg 20 mg Oral BID Yaritza Cain MD 20 mg at 04/05/192044 HYDROcodone-acetaminophen (NORCO) 5-325 mg per tablet 1 tablet 1 tablet Oral Q4H PRN Yaritza Cain MD1 tablet at 04/06/19 010 hydrOXYzine (ATARAX) tablet 100 mg 100 mg Oral Nightly PRN Maggy Kimbrough CNP 100 mg at 04/05/192045 insulin glargine (LANTUS) injection 40 Units 40 Units Subcutaneous BID Destiny Harris MD 40 Units at 04/05/192099 insulin lispro (HumaLOG) injection 0-15 Units 0-15 Units Subcutaneous at bedtime Destiny Harris MD insulin lispro (HumaLOG) injection 0-30 Units 0-30 Units Subcutaneous TID AC Destiny Harris MD16 Units at 04/06/19817 levothyroxine (SYNTHROID, LEVOTHROID) tablet 112 mcg 112 mcg Oral Daily Yaritza Cain MD 112 mcg at 04/05/19851 lidocaine 10 mg/mL (1 %) injection 1 mL 1 mL Intradermal Once PRN Mariano Kirkland MD lisinopril (PRINIVIL,ZESTRIL) tablet 20 mg 20 mg Oral Daily Yaritza Cain MD 20 mg at 04/05/19851 naloxone (NARCAN) injection 0.1 mg 0.1 mg Intravenous PRN Yaritza Cain MD naloxone (NARCAN) injection 0.4 mg 0.4 mg Intravenous PRN Yaritza Cain MD piperacillin-tazobactam (ZOSYN) IVPB 3.375 g (premix) 3.375 g Intravenous Q8H Yaritza Cain MD 12.5 mL/hr at 04/06/19 0540 3.375 g at 04/06/19 0540 pregabalin (LYRICA) capsule 100 mg 100 mg Oral Daily Dominick Santos MD 100 mg at 04/05/192045 sodium chloride (PF) (NS) flush 10 mL 10 mL Intracatheter Q8H ASHLEY Mariano Kirkland MD 10 mL at 04/06/19 0600 sodium chloride (PF) (NS) flush 10-20 mL 10-20 mL Intracatheter PRN Mariano Kirkland MD sodium chloride (PF) (NS) flush 5 mL 5 mL Intravenous PRN Isaac Duran PA-C And sodium chloride 0.9% (NS) 0-150 mL/hr Intravenous PRN Isaac Duran PA-C traZODone (DESYREL) tablet 25 mg 25 mg Oral Nightly Yaritza Cain MD 25 mg at 04/05/192044 Current Medications: atorvastatin 80 mg Oral Daily docusate sodium 100 mg Oral BID DULoxetine 60 mg Oral Daily enoxaparin (LOVENOX) injection 40 mg Subcutaneous Daily famotidine 20 mg Oral BID insulin glargine 40 Units Subcutaneous BID lispro insulin 0-15 Units Subcutaneous at bedtime insulin lispro 0-30 Units Subcutaneous TID AC levothyroxine 112 mcg Oral Daily lisinopril 20 mg Oral Daily piperacillin-tazobactam (ZOSYN) extended infusion 3.375 g Intravenous Q8H pregabalin 100 mg Oral Daily sodium chloride (PF) 10 mL Intracatheter Q8H [facility] traZODone 25 mg Oral Nightly acetaminophen, alteplase, HYDROcodone-acetaminophen, hydrOXYzine, lidocaine 1%, nalOXone, naloxone,sodium chloride (PF), [COMPLETED] Insert peripheral IV AND Saline lock IV AND sodium chloride (PF) AND sodium chloride 0.9 % Review of Systems: Review of Systems Constitutional: Positive for fatigue and unexpected weight change (weight loss). Eyes: Negative for visual disturbance. Respiratory: Negative for cough and shortness of breath. Cardiovascular: Positive for leg swelling. Negative for chest pain. Gastrointestinal: Negative for abdominal pain, constipation, diarrhea, nausea and vomiting. Endocrine: Negative for polydipsia, polyphagia and polyuria. Genitourinary: Negative for frequency and urgency. Musculoskeletal: Positive for arthralgias. Skin: Positive for color change and wound. Neurological: Positive for weakness and numbness (and tingling). Negative for headaches. Psychiatric/Behavioral: Negative for agitation and sleep disturbance. The patient is not nervous/anxious. History: Past Medical History: Diagnosis Date Acid reflux Diabetes mellitus (HCC) Diabetes mellitus, type 2 (HCC) Disease of thyroid gland hypothyroidism Fibromyalgia Hyperlipidemia Past Surgical History: Procedure Laterality Date AMPUTATION TOE(S) Right 04/02/2019 Procedure: RIGHT GREAT TOE AMPUTATION; Surgeon: Zeferino Geronimo DPM; Location: Main OR; Service: Podiatry APPENDECTOMY TONSILLECTOMY TUBAL LIGATION Family History Problem Relation Age of Onset Thyroid disease Mother Diabetes Maternal Aunt Diabetes Maternal Uncle Cancer Maternal Grandfather Heart disease Paternal Grandmother Social History Tobacco Use Smoking status: Current Every Day Smoker Packs/day: 0.25 Years: 30.00 Pack years: 7.50 Types: Cigarettes Smokeless tobacco: Never Used Substance Use Topics Alcohol use: Never Frequency: Never Drug use: Never The following portions of the patient's history were reviewed and updated as appropriate: allergies, current medications, past family history, past medical history, past social history, past surgicalhistory and problem list. Objective: BP 128/64 (Patient Position: Lying) Pulse 80 Temp 97.2 F (36.2 C) (Axillary) Resp 16 Ht 5' 5 Wt 93 kg (205 lb 0.4 oz) SpO2 94% BMI 34.12 kg/m Wt Readings from Last 3 Encounters: 03/28/19 93 kg (205 lb 0.4 oz) 03/28/19 93 kg (205 lb 0.4 oz) 03/09/19 96.6 kg (213 lb) Physical Exam: Physical Exam Constitutional: She is oriented to person, place, and time. She appears well- developed and well-nourished. HENT: Head: Normocephalic and atraumatic. Eyes: Pupils are equal, round, and reactive to light. Conjunctivae are normal. Neck: Normal range of motion. Neck supple. No thyromegaly present. Cardiovascular: Normal rate, regular rhythm, normal heart sounds and intact distal pulses. Exam reveals no friction rub. No murmur heard. Pulmonary/Chest: Effort normal and breath sounds normal. No respiratory distress. She has no wheezes. Abdominal: Soft. Bowel sounds are normal. She exhibits no distension. Musculoskeletal: Normal range of motion. She exhibits no edema. Right ankle and calf tender to palp Neurological: She is alert and oriented to person, place, and time. Skin: Skin is warm and dry. Dressing intact to RLE. Psychiatric: She has a normal mood and affect. Her behavior is normal. Judgment and thought contentnormal. Laboratory Review: BP 128/64 (Patient Position: Lying) Pulse 80 Temp 97.2 F (36.2 C) (Axillary) Resp 16 Ht 5' 5 Wt 93 kg (205 lb 0.4 oz) SpO2 94% BMI 34.12 kg/m Lab Results Component Value Date HGBA1C 14.3 (H) 03/28/2019 Glucose (mg/dL) Date Value 04/01/2019 159 (H) Creatinine (mg/dL) Date Value 04/06/2019 1.65 (H) No results found for: CHOL, TRIG, HDL, LDLCALC, LDL No results found for: TSH No results found for: FREET4 Lab Results Component Value Date WBC 7.72 04/01/2019 HGB 11.0 (L) 04/01/2019 HCT 35.2 (L) 04/01/2019 MCV 88.4 04/01/2019 PLT 268 04/01/2019 This SmartLink has not been configured with any valid records. This SmartLink has not been configured with any valid records. Laboratory and Additional Data Reviewed: Laboratory 04/06/19 9:59 AM Medications 04/06/19 9:59 AM Transcriptions, Radiology 04/06/19 9:59 AM Thank you for this consultation, we will continue to follow this patient with you. Electronically signed by: Noel Skelton PA-C, [facility] 04/06/19 9:59 AM Amarilis Guzmán CNP * Victor Hugo Alcaraz DPM - 04/06/2019 7:20 AM EDT Podiatry Inpatient Follow-up 04/06/2019 Victor Hugo Alcaraz DPM [facility] Patient: Maryanne Minaya Date of : 1970 (48 y.o.) PCP: Glenroy Queen MD ASSESSMENT/PLAN: Maryanne Minaya 48 y.o. female with history of 1. Diabetes mellitus with peripheral neuropathy, (hemoglobin A1c 14.3) 2. Fibromyalgia 3. Status post right great toe amputation healing nice. Plan: Patient was seen and evaluated at the bedside, I discussed the findings with the patient. Patient was given opportunity to ask questions. Patient elects to have the following treatment as follows: 1. Patient is 4 days status post right great toe amputation. She is feeling much better. 2. New dry sterile dressing was applied patient can keep dressing dry clean intact ~wound care visit. 3. Noted the bone culture sent from the midportion of the hallux interphalangeal joint which broke apart during the amputation was positive for both light growth enterococcus and Streptococcus group viridans. 4. Intravenous antibiotics per infectious disease. Pt getting PICC today 5. Patient will need outpatient follow-up with the wound care center within 3 days of discharge with Dr. James in the wound center. 6. Patient can be discharged today and podiatry will sign off. SUBJECTIVE: History Since Last Visit: Patient is a 48-year-old diabetic female with severely uncontrolled diabetes. Hemoglobin A1c is 14.3. Patient underwent amputation of her right great toe yesterday. She relates she is doing fine this today. She states she feels better after having it removed. She has no other complaints today. Patient denies nausea, vomiting, fever, chills, and diarrhea. Pending Lab and Radiology Results Order Current Status Tissue Exam In process Interpretation of Testing: I personally reviewed the labs and agree with the interpretation(s). Review of Systems: Constitutional:No fever, no weight loss CV:No chest pain. No ankle swelling Integumentary:No skin rash Heme/lymphatic:No apparent lymphadenopathy Allergic/Immunologic:No hives Psych:No unusual mood swings All other systems reviewed and negative other than HPI OBJECTIVE: Physical Examination: BP (!) 147/86 Pulse 80 Temp 98.9 F (37.2 C) (Oral) Resp 16 Ht 5' 5 Wt 93 kg (205 lb 0.4 oz) SpO2 93% BMI 34.12 kg/m Vascular: Peripheral pulses are palpable at 2 out of 4 for the right dorsalis pedis pulse, 2 out of4 for the left dorsalis pedis pulse, 2 out of 4 the right posterior tibial pulse, 2 out of 4 for the left posterior tibial pulse. CFT is less than 3 seconds bilaterally. Skin temperature is warm to warm proximal to distal on right. Nonpitting edema is present today which is significantly decreased from what was present yesterday at the amputation site. No increase in warmth to calf, no proximal streaking or lymphangitis. Neurological: Epicritic sensation is grossly absent bilateral via light touch. Babinski test is plantigrade bilaterally. Achilles reflex is present bilateral. Patient is able to follow 2-step commands. No gross motor deficit appreciated at this time bilateral lower extremities. Dermatologic: Amputation site is well coapted without drainage. Dried blood is noted at the center of the incision line. There is no necrosis present. Postoperative edema has markedly decreased.. No dehiscence is present. Please refer to the clinical pictures below: Musculoskeletal: Range of motion of the lower extremity at the ankle is diminished range of motion.Muscle strength is 5/5 for all muscle groups . Pain is present on palpation to 1 PIP joint severe pain on the right. Right calf pain. Laboratory and Additional Data Reviewed: Reviewed 04/06/19 7:20 AM: Laboratory, Microbiology, Pathology, Medications and Transcriptions * Jacob, Charley Dowd DPM - 04/05/2019 5:07 PM EDT Podiatry Inpatient Follow-up 04/05/2019 Charley James DPM [facility] Patient: Maryanne Minaya Date of : 1970 (48 y.o.) PCP: Glenroy Queen MD ASSESSMENT/PLAN: Maryanne Minaya 48 y.o. female with history of 1. Diabetes mellitus with peripheral neuropathy, (hemoglobin A1c 14.3) 2. Fibromyalgia 3. Right great toe osteomyelitis to distal and proximal phalanx with septic interphalangeal joint per MRI -resolved status post right great toe amputation at the level of the metatarsal phalangeal joint Plan: Patient was seen and evaluated at the bedside, I discussed the findings with the patient. Patient was given opportunity to ask questions. Patient elects to have the following treatment as follows: 1. Patient is 3 days status post right great toe amputation. She is feeling much better. 2. New dry sterile dressing was applied 3. Noted the bone culture sent from the midportion of the hallux interphalangeal joint which broke apart during the amputation was positive for both light growth enterococcus and Streptococcus group viridans. 4. Intravenous antibiotics per infectious disease. Pt getting PICC today 5. Patient will need outpatient follow-up with the wound care center within 5 days of discharge. 6. Awaiting ECF placement 7. We will follow while admitted SUBJECTIVE: History Since Last Visit: Patient is a 48-year-old diabetic female with severely uncontrolled diabetes. Hemoglobin A1c is 14.3. Patient underwent amputation of her right great toe yesterday. She relates she is doing fine this today. She states she feels better after having it removed. She has no other complaints today. Patient denies nausea, vomiting, fever, chills, and diarrhea. Pending Lab and Radiology Results Order Current Status Tissue Exam In process Interpretation of Testing: I personally reviewed the labs and agree with the interpretation(s). Review of Systems: Constitutional:No fever, no weight loss CV:No chest pain. No ankle swelling Integumentary:No skin rash Heme/lymphatic:No apparent lymphadenopathy Allergic/Immunologic:No hives Psych:No unusual mood swings All other systems reviewed and negative other than HPI OBJECTIVE: Physical Examination: BP 133/72 Pulse 72 Temp 98.3 F (36.8 C) (Oral) Resp 16 Ht 5' 5 Wt 93 kg (205 lb 0.4 oz) SpO2 95% BMI 34.12 kg/m Vascular: Peripheral pulses are palpable at 2 out of 4 for the right dorsalis pedis pulse, 2 out of4 for the left dorsalis pedis pulse, 2 out of 4 the right posterior tibial pulse, 2 out of 4 for the left posterior tibial pulse. CFT is less than 3 seconds bilaterally. Skin temperature is warm to warm proximal to distal on right. Nonpitting edema is present today which is significantly decreased from what was present yesterday at the amputation site. No increase in warmth to calf, no proximal streaking or lymphangitis. Neurological: Epicritic sensation is grossly absent bilateral via light touch. Babinski test is plantigrade bilaterally. Achilles reflex is present bilateral. Patient is able to follow 2-step commands. No gross motor deficit appreciated at this time bilateral lower extremities. Dermatologic: Amputation site is well coapted without drainage. Dried blood is noted at the center of the incision line. There is no necrosis present. Postoperative edema has markedly decreased.. No dehiscence is present. Please refer to the clinical pictures below: Musculoskeletal: Range of motion of the lower extremity at the ankle is diminished range of motion.Muscle strength is 5/5 for all muscle groups . Pain is present on palpation to 1 PIP joint severe pain on the right. Right calf pain. Laboratory and Additional Data Reviewed: Reviewed 04/05/19 5:08 PM: Laboratory, Microbiology, Pathology, Medications and Transcriptions * Tin Wilkes, LENCHO - 04/05/2019 4:02 PM EDT Physical Therapy PHYSICAL THERAPY TREATMENT NOTE Skilled Therapy Needs After Discharge Are Skilled Therapy Services Needed After Discharge: Yes Intensity of Skilled Therapy: Up to 5 days per week(pt would like to go to SNF by son and mom) DME Recommendation: (aldair castaneda) DME Rationale: Patient's condition prevents him/her from accomplishing ADL without recommended equipment, Patient's condition creates an increased risk of safety hazard without recommended equipment,Equipment required to maintain weight bearing status per physician orders Rehab Potential: Excellent Outcomes Measures Prior Function - Basic Mobility % Impaired: AM-PAC - Basic Mobility Raw Score: 19 Points AM-PAC - Basic Mobility % Impaired: 36.99% functionally impaired Activity Tolerance fair- Therapy Precautions Weight Bearing Status: X RLE: Non Wt bearing General Rehab Precautions: Fall risk(up with 1 assist with walker for transfer) Bed Mobility Rolling: Modified independence Supine to Sit: Modified independence Transfers Sit to Stand: Stand by assistance Bed to Chair: Contact guard Stand Pivot Transfers: Contact guard Media Monitor: Wheeled walker Skilled Intervention: Pt performed SPT with walker from eob to w/c. Pt stood on R heel with transfer and used R heel with pivot. Pt was informed on NWB status on R LE and Pt states she has been ambulating to BR on R heel with nsg. INVESTMENT PROFESSIONAL will comfirm NWB status with PT for next visit. Home Living Type of Home: House Home Layout: (unsure of where she is going to live, lives on box truck) Bathroom Shower/Tub: Tub/shower unit Home Equipment: (has shower chair) Prior Level of Function Level of Thomas: Independent with ADLs and functional transfers, Independent with homemaking with ambulation Lives With: Significant other ADL Assistance: Independent Homemaking Assistance: Independent Vocational: Unemployed Leisure: (watch tv, reading, color, hang out with her son) Comments: inpd without AD For complete objective data, detailed plan of care and patient education refer to: PT EVALUATION flow sheet, PT TREATMENT flow sheet, patient Plan of Care, Plan of Care progress note, and Patient Education. This note stands as the current Discharge Summary upon patient discharge from the hospital or completion of Physical Therapy Plan of Care. * Ronald Medina MD - 04/05/2019 2:45 PM EDT [facility] Medicine Inpatient Follow-up 04/05/2019 Ronald Medina MD [facility] Patient: Maryanne Minaya Date of : 1970 (48 y.o.) PCP: Glenroy Queen MD ASSESSMENT/PLAN: Maryanne Minaya 48 y.o. female presented with complains of foot infection Active Problems: Diabetic foot (HCC) Diabetes mellitus type 2, uncontrolled, with complications (HCC) PLAN: 04/05 -- CLINICALLY STABLE -- AFEBRILE -- NO LEUKOCYTOSIS -- KIDNEY FUNCTION IS WORSE TODAY -- VANCOMYCIN WAS DCED -- HOLD HCTZ -- BMP IN AM -- ON ZOSYN IV -- ID IS FOLLOWING -- DC PLANNING: STILL WE DO NOT HAVE CLEAR DC PLANNING FROM ID -- SOCIAL SERVICE CONSULT SUBJECTIVE: Denies complaints. No shortness of breath. No fever All other systems reviewed and negative other than noted above. OBJECTIVE: Physical Examination: BP 133/72 Pulse 72 Temp 98.3 F (36.8 C) (Oral) Resp 16 Ht 5' 5 Wt 93 kg (205 lb 0.4 oz) SpO2 95% BMI 34.12 kg/m General Appearance: Alert, well appearing, and in no acute distress. HEENT: Head - Normocephalic, atraumatic. Eyes - BRANDON bilaterally and EOMI. Ears - normal external appearance, hearing intact. Nose - normal, no erythema. Throat - mucous membranes moist, pharynx without lesions. Neck: Supple, trachea midline. Cardiovascular: S1, S2 normal. No murmurs, rubs, clicks or gallops appreciated. No pedal edema. Respiratory: Lungs clear to auscultation, no wheezes, rales or rhonchi heard. Abdomen: Soft, non-tender, normal bowel sounds, non-distended, no masses or organomegaly appreciated. Neurological: Grossly normal motor and sensory exam. No focal deficits. Musculoskeletal: No joint tenderness, deformity or swelling. Skin: rt foot in dressing Psych: Alert, oriented x 3. Normal mood and affect. CURRENT MEDICATIONS: atorvastatin 80 mg Oral Daily docusate sodium 100 mg Oral BID DULoxetine 60 mg Oral Daily enoxaparin (LOVENOX) injection 40 mg Subcutaneous Daily famotidine 20 mg Oral BID hydroCHLOROthiazide 50 mg Oral Daily insulin glargine 40 Units Subcutaneous BID lispro insulin 0-15 Units Subcutaneous at bedtime insulin lispro 0-30 Units Subcutaneous TID AC levothyroxine 112 mcg Oral Daily lisinopril 20 mg Oral Daily piperacillin-tazobactam (ZOSYN) extended infusion 3.375 g Intravenous Q8H pregabalin 100 mg Oral Daily sodium chloride (PF) 10 mL Intracatheter Q8H ASHLEY sodium chloride (PF) 10 mL Intracatheter Q8H ASHLEY traZODone 25 mg Oral Nightly Results/Medications Reviewed 04/05/19 2:45 PM: Results from last 7 days Lab Units 04/05/19 1108 04/03/19 0500 04/01/19 0553 03/31/19 0437 03/30/19 0630 SODIUM mmol/L -- -- 142 139 138 POTASSIUM mmol/L -- -- 3.4* 3.6 3.6 CHLORIDE mmol/L -- -- 109* 105 108 BUN mg/dL -- -- 6* 10 10 CREATININE mg/dL 1.52* 0.97 0.44 0.54 0.55 GLUCOSE mg/dL -- -- 159* 277* 231* Results from last 7 days Lab Units 04/01/19 0551 03/31/19 0437 03/30/19 0629 WBC K/mcL 7.72 7.95 8.25 HGB g/dL 11.0* 12.0 11.0* HCT % 35.2* 37.9 34.0* PLT K/mcL 268 276 224 Invalid input(s): LABALBU CULTURES: Reviewed 2:45 PM IMAGING: Reviewed 2:45 PM * Mariano Kirkland MD - 04/05/2019 12:39 PM EDT Patient Name: Maryanne Minaya Admit Date: [id number] MR #: [id number] : 1970 Physicians: Glenroy Queen MD (Family); Dee Marx DO (Referring) Assessment: Patient with 1. Possible osteomyelitis of the right big toe 2. Chronic ulceration of the right big toe 3. Cellulitis of the right foot. 4. Fever 5. Uncontrolled diabetes 6. Vancomycin toxicity Plan. Continue patient on current therapy Hold off on vancomycin, due to increased creatinine Discontinue vancomycin We will consider patient on ceftriaxone intravenously, and ampicillin, or daptomycin intravenous Reviewed wound culture, and blood culture Endocrinology evaluation appreciated Follow-up ESR, C-reactive protein, We will follow-up labs and blood culture. Patient was status post right big toe amputation. Follow-up pathology, and bone cultures, with growth of Enterococcus faecalis, and Streptococcus viridans. Subjective: No new symptoms, no fever, no chills, experiencing pain in the amputated toe. No diarrhea, patient status post amputation of the right big toe Exam: PACU Vitals 04/05/19 1145 BP: 133/72 Pulse: 72 Resp: 16 Temp: 98.3 F (36.8 C) SpO2: 95% Allergies: Azithromycin; Clindamycin; and Erythromycin Current Facility-Administered Medications: acetaminophen (TYLENOL) tablet 650 mg, 650 mg, Oral, Q4H PRN, Yaritza Cain MD, 650 mg at 04/03/192116 alteplase (CATH WINSTON) injection 2 mg, 2 mg, Other, PRN, Mariano Kirkland MD atorvastatin (LIPITOR) tablet 80 mg, 80 mg, Oral, Daily, Yaritza Cain MD, 80 mg at 04/05/19 0852 docusate sodium (COLACE) capsule 100 mg, 100 mg, Oral, BID, Maggy Kimbrough CNP, 100 mg at 04/05/19 0852 DULoxetine (CYMBALTA) DR capsule 60 mg, 60 mg, Oral, Daily, Yaritza Cain MD, 60 mg at 04/04/192139 enoxaparin (LOVENOX) syringe 40 mg, 40 mg, Subcutaneous, Daily, Yaritza Cain MD, 40 mg at 04/05/1952 famotidine (PEPCID) tablet 20 mg, 20 mg, Oral, BID, Yaritza Cain MD, 20 mg at 04/05/1952 hydroCHLOROthiazide (HYDRODIURIL) tablet 50 mg, 50 mg, Oral, Daily, Yaritza Cain MD, 50 mg at 04/05/19 0851 HYDROcodone-acetaminophen (NORCO) 5-325 mg per tablet 1 tablet, 1 tablet, Oral, Q4H PRN, Yaritza Cain MD, 1 tablet at 04/05/19 0551 hydrOXYzine (ATARAX) tablet 100 mg, 100 mg, Oral, Nightly PRN, Maggy Kimbrough CNP, 100 mg at 04/01/19 2030 insulin glargine (LANTUS) injection 40 Units, 40 Units, Subcutaneous, BID, Destiny Harris MD, 40 Units at 04/05/19 0853 insulin lispro (HumaLOG) injection 0-15 Units, 0-15 Units, Subcutaneous, at bedtime, Destiny Harris MD insulin lispro (HumaLOG) injection 0-30 Units, 0-30 Units, Subcutaneous, TID AC, Destiny Harris MD, 12 Units at 04/05/19 1203 levothyroxine (SYNTHROID, LEVOTHROID) tablet 112 mcg, 112 mcg, Oral, Daily, Yaritza Cain MD, 112 mcgat 04/05/19 0852 lidocaine 10 mg/mL (1 %) injection 1 mL, 1 mL, Intradermal, Once PRN, Mariano Kirkland MD lisinopril (PRINIVIL,ZESTRIL) tablet 20 mg, 20 mg, Oral, Daily, Yaritza Cain MD, 20 mg at 04/05/19 0852 naloxone (NARCAN) injection 0.1 mg, 0.1 mg, Intravenous, PRN, Yaritza Cain MD naloxone (NARCAN) injection 0.4 mg, 0.4 mg, Intravenous, PRN, Yaritza Cain MD piperacillin-tazobactam (ZOSYN) IVPB 3.375 g (premix), 3.375 g, Intravenous, Q8H, Yaritza Cain MD, Last Rate: 12.5 mL/hr at 04/05/19 0700 pregabalin (LYRICA) capsule 100 mg, 100 mg, Oral, Daily, Dominick Santos MD, 100 mg at 04/04/19 2139 sodium chloride (PF) (NS) flush 10 mL, 10 mL, Intracatheter, Q8H ASHLEY, Dominick Santos MD, 10mL at 04/03/19 1423 sodium chloride (PF) (NS) flush 10 mL, 10 mL, Intracatheter, Q8H ASHLEY, Mariano Kirkland MD sodium chloride (PF) (NS) flush 10-20 mL, 10-20 mL, Intracatheter, PRN, Mariano Kirkland MD [COMPLETED] Insert peripheral IV, , , Once AND Saline lock IV, , , Once AND sodium chloride(PF) (NS) flush 5 mL, 5 mL, Intravenous, PRN AND sodium chloride 0.9% (NS), 0-150 mL/hr, Intravenous, PRN, Isaac Duran PA-C traZODone (DESYREL) tablet 25 mg, 25 mg, Oral, Nightly, Yaritza Cain MD, 25 mg at 04/04/19 2140 vancomycin per pharmacy 1 each, 1 each, Intravenous, as indicated by pharmacokinetics, Yaritza Cain MD PMH/PSH/SH/ reviewed, no change : Review of Systems: All systems were reviewed no change: Medications Reviewed. Chart Reviewed. Exam Findings: Neck: Supple, no rigidity ENT: No oral candidiasis Chest: Lungs clear bilaterally, no wheezing, or rales CVS: Normal S1 & S2+, Normal Rhythm Abdomen: Normal symmetry, Soft/non-tender. Benign, BS+ Extremities: No Deformities or Edema, right big toe with ulceration, and erythema. Tender to palpation, with dressings Skin: Intact & No Rashes, or excoriations Musculoskeletal: No joint swelling, non tender WORKFORCE CONSULTANT: Awake, and Ox3, with depressive look Wound: Big toe status post amputation, sutures in place, no drainage or wound gaping. Surrounding area with still erythema. Carrillo Catheter: None IV Access: Yes I reviewed Medications. I reviewed Labs. Laboratory and Additional Data Reviewed: Laboratory 04/05/19 12:39 PM Microbiology 04/05/19 12:39 PM Radiology 04/05/19 12:39 PM XR Foot Right 2 Views Final Result 1. Status post amputation of the phalanges of the great toe. No fracture or dislocation noted. 2. Moderate plantar calcaneal spurring. Workstation ID: [id number] Ultrasound duplex venous leg right Final Result MR Foot Right Without Contrast Final Result 1. There is an ulcer along the plantar aspect of the 1st toe medially extending deep into the soft tissues nearly to the plantar cortex of the base of the distal phalanx. There is associated [id number] subcutaneous edema and soft tissue swelling along the plantar aspect of the 1st toe and moderate subcutaneous edema and soft tissue swelling in the midfoot to forefoot suspicious for cellulitis. Correlation for the clinical extent of cellulitis would be helpful. 2. MRI findings are consistent with osteomyelitis in the distal and proximal phalanges of the 1st toe with increased STIR and low T1 signal. There is also suspected joint infection and septic arthritis involving the IP joint of the 1st toe. 3. No focal abscess. NINFA/rickey Workstation ID: [id number] XR Foot Right 3+ Views (Standard) Final Result 1. Subtle osteolysis of the lateral aspect of the proximal phalanx of 1st digit with soft tissue defect along the plantar surface of the 1st digit concerning for infection of the soft tissue as well as probably osteomyelitis. Further evaluation with 3-phase bone scan or MRI could be performed. 2. No definite fractures or dislocations. [facility] Workstation ID: [id number] Medications 04/05/19 12:39 PM Lab Results Component Value Date WBC 7.72 04/01/2019 HGB 11.0 (L) 04/01/2019 HCT 35.2 (L) 04/01/2019 MCV 88.4 04/01/2019 PLT 268 04/01/2019 Lab Results Component Value Date GLUCOSE 159 (H) 04/01/2019 CALCIUM 7.7 (L) 03/28/2019 NA 142 04/01/2019 K 3.4 (L) 04/01/2019 CL 109 (H) 04/01/2019 BUN 6 (L) 04/01/2019 CREATININE 1.52 (H) 04/05/2019 Problem List Items Addressed This Visit None Visit Diagnoses Diabetic ulcer of toe of right foot associated with type 2 diabetes mellitus, with bone involvementwithout evidence of necrosis (HCC) - Primary Relevant Medications insulin glargine (LANTUS U-100 INSULIN) 100 unit/mL injection insulin lispro (HumaLOG U-100 Insulin) 100 unit/mL injection insulin lispro (HumaLOG) injection 0-30 Units insulin glargine (LANTUS) injection 30 Units (Completed) insulin glargine (LANTUS) injection 40 Units insulin lispro (HumaLOG) injection 0-15 Units Other Relevant Orders Ambulatory ref to Long-Term Facili I discussed my management plans with Patient/and or Family member, and also discussed antibiotics therapy including side effects with Patient/and or Family member. Medical Decision Making: High * Alphonso Canada MSW LSW - 04/05/2019 12:30 PM EDT DISCHARGE PLAN PROGRESS NOTE Date: 04/05/2019 Time: 12:30 PM Patient Name: Maryanne Minaya Date of : 1970 Sex: Female In to visit with patient who made choices for [facility], [facility], [facility], and [facility] in this order. Referral calls placed to first two facilities that are willing to review referral. Referrals faxed through [employer] to Ayde Nguyen at [facility] and Bernice at [facility]. Ambulatory order for SNF placed and awaiting physician signature. 14:00- Patient accepted to [facility] and Ayde Nguyen reported DON has requested transition of care for wound care closer to their facility. Patient will need to switch after follow up appointment. Wanda at [facility] plans to submit precert when updated therapy notes are faxed. PT/OT [employer] message sent by Briseyda WOODS in [facility] Following. Discharge Readiness Barriers to Discharge: No barriers [facility] Disposition D/C Disposition: Long-Term Facility Options Reviewed: List provided, Explained services/benefits Reason for Choice: Patient/Family prefernce * Hien Bustos RPh,PharmD - 04/05/2019 12:28 PM EDT PHARMACOTHERAPY NOTE: Antimicrobial Therapy Follow-up Assessment / Plan: Patient initiated on Vancomycin IV 1750mg q12hrs for skin/soft tissue infection and possible osteomyelitis . Vancomycin trough goal is 15-20 mcg/mL. Based on drug level of 48.4 , will hold Vancomycin and draw a random at 2330 (24 hrs post last dose). I did confirm with RN that Vanco was not hanging at the time of the lab draw. I also discussed the level with Dr. Kirkland and advised we are holding the dose until the level falls back in range. Scr change 0.97mg/dL to 1.52mg/dL (04/03-04/05) Will monitor serum creatinine levels and urine output (if available) daily. Pharmacy will continue to follow, order levels, and make adjustments/recommendations as needed. Subjective: Maryanne Minaya is a 48 y.o. female initiated on antimicrobial therapy for skin/soft tissue infection and possible osteomyelitis . Current antibiotic regimen includes day 9 of Vancomycin, day 9 of Zosyn. Objective: Labs include: WBC (K/mcL) Date Value 04/01/2019 7.72 BUN (mg/dL) Date Value 04/01/2019 6 (L) Creatinine (mg/dL) Date Value 04/05/2019 1.52 (H) Estimated Creatinine Clearance: 41.2 mL/min (A) (by C-G formula based on SCr of 1.52 mg/dL (H)). Patient Tmax (last 24 hours): 98.3 Micro: 04/02 WND-NGTD 04/02 Bone-No anaerobic growth x48 hrs 04/02 Bone: Light Growth Enterococcus faecalis Few Streptococcus Group Viridans Therapeutic Drug Monitoring: Last vancomycin dose administered 04/05 @0020 Vancomyicin drug level 04/05@ 1100 : 48.4 11-hour post-dose level. Pharmacist: Hien Bustos RPh,PharmD Contact Number: [phone] * Noel Skelton PA-C - 04/05/2019 12:08 PM EDT Patient ID: Patient Name: Maryanne Minaya Admit Date: 03/27/2019 MR #: [id number] : 1970 Current location: [facility] Physicians: Glenroy Queen MD (Family); Clarice Geronimo DPM (Referring) Reason for consult: Type 2 diabetes out of control Assessment/Plan: Dx: Type 2 diabetes, under poor control Currently taking: No oral hypoglycemic medications Humalog insulin: SS units at breakfast; SS units at lunch; SS units at supper Levemir insulin: 50 units at breakfast; 50 units at bedtime Current Hemoglobin A1C= Lab Results Component Value Date HGBA1C 14.3 (H) 03/28/2019 NOTES: Patient admitted 03/27 with diabetic foot wound on right great toe. Patient has been under the care of podiatry and ID. Patient's A1c 14.3% as an outpatient. Reports taking levemir 50 BID with SS humalog. This regimen was continued until yesterday when she was started on 12 humalog TID in addition to 50 lantus BID. 04/02 BG reviewed. BG well-controlled in hospital. She is n.p.o. today for scheduled surgery. She reports that she was not taking care of herself prior to her admission. She plans to start taking better care of her diabetes after discharge. 04/05: She is s/p toe amputation on 04/02. BG control improving on current doses, appetite is stable. Unsure of plan following d/c. Blood Glucoses: 03/29: 270---231---298---309 03/30: 216---___---281---339 03/31: 283---177---177---136---205 04/01 115---127---154---129 04/02 97 04/03: 298---251---224---223 04/04: 160---148---83---309 04/05: 194--- Plan: 1. Rx changes: none Humalog insulin: 12 units at breakfast; 12 units at lunch; 12 units at supper Lantus insulin: 40 units at breakfast; 40 units at bedtime 04/02 Reduce Lantus to 40 units BID and continue pre-meal Humalog 12 units TID. Hold scheduled insulin today while NPO. Change IV to D5NS at 100 cc/hr. 04/05: Continue current doses. Consult diabetic education. 2. Education: Reviewed ABCs of diabetes management (respective goals in parentheses): A1C (7.0-8.0), blood pressure (<130/80), and cholesterol (LDL <100). Referral to Diabetes Education Referral to Nutrition therapy Subjective: Interval HPI: 04/02 she denies any chest pain, shortness of breath, abdominal discomfort. She is n.p.o. for surgery. She complains of right ankle and calf pain, as well as some swelling in her right lower leg. She is concerned that she could have a DVT. 04/05: Pt feeling stable this AM, she has felt couped up and has been going on walks, going outside. Her appetite is stable, she has no complaints for our service this AM. She is requesting further diabetic ed. Brief HPI: Ms. Minaya is a 48-year-old female with a past history of hypertension, hyperlipidemia,type 2 diabetes mellitus and fibromyalgia. Patient presented to [facility] on 03/27/2019 with complaints of right great toe wound. Patient reports she has not seen a seat pack inspector in several months this ulceration appeared approximately 2 months ago. Patient was admitted for furtherevaluation and treatment podiatry care and infectious disease management. Patient's blood glucose levels since admission have been elevated between 177-339 mg/dL. She reports blurred vision, no double vision. She reports pain in her foot. She does report numbness and tingling in her feet as well. Sh e reports no recent weight gain. She has lost approximately 15 pounds she thinks. Patient has had diabetes for 20 years. Patient is reportedly taking Levemir 50 units BID and sliding scale as needed . Patient has taken Insulin for 20 years. Currently the patient is receiving Lantus and humalog. Blood sugar levels since admission have been ranging from 177-339 mg/dL. Complications of diabetes include: Retinopathy: Negative Nephropathy: Positive Peripheral Neuropathy: Positive Autonomic Neuropathy: Negative Allergies: Allergies Allergen Reactions Azithromycin Hives Clindamycin Hives Erythromycin Hives Home Medications: Current Facility-Administered Medications Medication Dose Route Frequency Provider Last Rate Last Dose acetaminophen (TYLENOL) tablet 650 mg 650 mg Oral Q4H PRN Yaritza Cain MD 650 mg at 04/03/192116 alteplase (CATH WINSTON) injection 2 mg 2 mg Other PRN Mariano Jerrell Kirkland MD atorvastatin (LIPITOR) tablet 80 mg 80 mg Oral Daily Yaritza Cain MD 80 mg at 04/05/19 0852 docusate sodium (COLACE) capsule 100 mg 100 mg Oral BID Maggy Kimbrough CNP 100 mg at 852 DULoxetine (CYMBALTA) DR capsule 60 mg 60 mg Oral Daily Yaritza Cain MD 60 mg at 04/04/190 enoxaparin (LOVENOX) syringe 40 mg 40 mg Subcutaneous Daily Yaritza Cain MD 40 mg at 04/05/19 0852 famotidine (PEPCID) tablet 20 mg 20 mg Oral BID Yaritza Cain MD 20 mg at 04/05/19 0852 hydroCHLOROthiazide (HYDRODIURIL) tablet 50 mg 50 mg Oral Daily Yaritza Cain MD 50 mg at 04/05/19 0851 HYDROcodone-acetaminophen (NORCO) 5-325 mg per tablet 1 tablet 1 tablet Oral Q4H PRN Yaritza Cain MD1 tablet at 04/05/19 0551 hydrOXYzine (ATARAX) tablet 100 mg 100 mg Oral Nightly PRN Maggy Kimbrough CNP 100 mg at 04/01/19 2030 insulin glargine (LANTUS) injection 40 Units 40 Units Subcutaneous BID Destiny Harris MD 40 Units at 04/05/19 0853 insulin lispro (HumaLOG) injection 0-15 Units 0-15 Units Subcutaneous at bedtime Destiny Harris MD insulin lispro (HumaLOG) injection 0-30 Units 0-30 Units Subcutaneous TID AC Destiny Harris MD12 Units at 04/05/19 1203 levothyroxine (SYNTHROID, LEVOTHROID) tablet 112 mcg 112 mcg Oral Daily Yaritza Cain MD 112 mcg at 04/05/19 0852 lidocaine 10 mg/mL (1 %) injection 1 mL 1 mL Intradermal Once PRN Mariano Kirkland MD lisinopril (PRINIVIL,ZESTRIL) tablet 20 mg 20 mg Oral Daily Yaritza Cain MD 20 mg at 04/05/19 0852 naloxone (NARCAN) injection 0.1 mg 0.1 mg Intravenous PRN Yaritza Cain MD naloxone (NARCAN) injection 0.4 mg 0.4 mg Intravenous PRN Yaritza Cain MD piperacillin-tazobactam (ZOSYN) IVPB 3.375 g (premix) 3.375 g Intravenous Q8H Yaritza Cain MD 12.5 mL/hr at 04/05/19 0700 pregabalin (LYRICA) capsule 100 mg 100 mg Oral Daily Dominick Santos MD 100 mg at 04/04/19 2139 sodium chloride (PF) (NS) flush 10 mL 10 mL Intracatheter Q8H ASHLEY Dominick Santos MD 10 mL at 04/03/19 1423 sodium chloride (PF) (NS) flush 10 mL 10 mL Intracatheter Q8H ASHLEY Mariano Kirkland MD sodium chloride (PF) (NS) flush 10-20 mL 10-20 mL Intracatheter PRN Mariano Kirkland MD sodium chloride (PF) (NS) flush 5 mL 5 mL Intravenous PRN Isaac Duran PA-C And sodium chloride 0.9% (NS) 0-150 mL/hr Intravenous PRN Isaac Duran PA-C traZODone (DESYREL) tablet 25 mg 25 mg Oral Nightly Yaritza Cain MD 25 mg at 04/04/19 2140 vancomycin per pharmacy 1 each 1 each Intravenous as indicated by pharmacokinetics Yaritza Cain MD Current Medications: atorvastatin 80 mg Oral Daily docusate sodium 100 mg Oral BID DULoxetine 60 mg Oral Daily enoxaparin (LOVENOX) injection 40 mg Subcutaneous Daily famotidine 20 mg Oral BID hydroCHLOROthiazide 50 mg Oral Daily insulin glargine 40 Units Subcutaneous BID lispro insulin 0-15 Units Subcutaneous at bedtime insulin lispro 0-30 Units Subcutaneous TID AC levothyroxine 112 mcg Oral Daily lisinopril 20 mg Oral Daily piperacillin-tazobactam (ZOSYN) extended infusion 3.375 g Intravenous Q8H pregabalin 100 mg Oral Daily sodium chloride (PF) 10 mL Intracatheter Q8H ASHLEY sodium chloride (PF) 10 mL Intracatheter Q8H ASHLEY traZODone 25 mg Oral Nightly vancomycin per pharmacy 1 each Intravenous as indicated by pharmacokinetics acetaminophen, alteplase, HYDROcodone-acetaminophen, hydrOXYzine, lidocaine 1%, nalOXone, naloxone,sodium chloride (PF), [COMPLETED] Insert peripheral IV AND Saline lock IV AND sodium chloride (PF) AND sodium chloride 0.9 % Review of Systems: Review of Systems Constitutional: Positive for fatigue and unexpected weight change (weight loss). Eyes: Negative for visual disturbance. Respiratory: Negative for cough and shortness of breath. Cardiovascular: Positive for leg swelling. Negative for chest pain. Gastrointestinal: Negative for abdominal pain, constipation, diarrhea, nausea and vomiting. Endocrine: Negative for polydipsia, polyphagia and polyuria. Genitourinary: Negative for frequency and urgency. Musculoskeletal: Positive for arthralgias. Skin: Positive for color change and wound. Neurological: Positive for weakness and numbness (and tingling). Negative for headaches. Psychiatric/Behavioral: Negative for agitation and sleep disturbance. The patient is not nervous/anxious. History: Past Medical History: Diagnosis Date Acid reflux Diabetes mellitus (HCC) Diabetes mellitus, type 2 (HCC) Disease of thyroid gland hypothyroidism Fibromyalgia Hyperlipidemia Past Surgical History: Procedure Laterality Date APPENDECTOMY TONSILLECTOMY TUBAL LIGATION Family History Problem Relation Age of Onset Thyroid disease Mother Diabetes Maternal Aunt Diabetes Maternal Uncle Cancer Maternal Grandfather Heart disease Paternal Grandmother Social History Tobacco Use Smoking status: Current Every Day Smoker Packs/day: 0.25 Years: 30.00 Pack years: 7.50 Types: Cigarettes Smokeless tobacco: Never Used Substance Use Topics Alcohol use: Never Frequency: Never Drug use: Never The following portions of the patient's history were reviewed and updated as appropriate: allergies, current medications, past family history, past medical history, past social history, past surgicalhistory and problem list. Objective: BP 133/72 Pulse 72 Temp 98.3 F (36.8 C) (Oral) Resp 16 Ht 5' 5 Wt 93 kg (205 lb 0.4 oz) SpO2 95% BMI 34.12 kg/m Wt Readings from Last 3 Encounters: 03/28/19 93 kg (205 lb 0.4 oz) 03/28/19 93 kg (205 lb 0.4 oz) 03/09/19 96.6 kg (213 lb) Physical Exam: Physical Exam Constitutional: She is oriented to person, place, and time. She appears well- developed and well-nourished. HENT: Head: Normocephalic and atraumatic. Eyes: Pupils are equal, round, and reactive to light. Conjunctivae are normal. Neck: Normal range of motion. Neck supple. No thyromegaly present. Cardiovascular: Normal rate, regular rhythm, normal heart sounds and intact distal pulses. Exam reveals no friction rub. No murmur heard. Pulmonary/Chest: Effort normal and breath sounds normal. No respiratory distress. She has no wheezes. Abdominal: Soft. Bowel sounds are normal. She exhibits no distension. Musculoskeletal: Normal range of motion. She exhibits no edema. Right ankle and calf tender to palp Neurological: She is alert and oriented to person, place, and time. Skin: Skin is warm and dry. Dressing intact to RLE. Psychiatric: She has a normal mood and affect. Her behavior is normal. Judgment and thought contentnormal. Laboratory Review: BP 133/72 Pulse 72 Temp 98.3 F (36.8 C) (Oral) Resp 16 Ht 5' 5 Wt 93 kg (205 lb 0.4 oz) SpO2 95% BMI 34.12 kg/m Lab Results Component Value Date HGBA1C 14.3 (H) 03/28/2019 Glucose (mg/dL) Date Value 04/01/2019 159 (H) Creatinine (mg/dL) Date Value 04/05/2019 1.52 (H) No results found for: CHOL, TRIG, HDL, LDLCALC, LDL No results found for: TSH No results found for: FREET4 Lab Results Component Value Date WBC 7.72 04/01/2019 HGB 11.0 (L) 04/01/2019 HCT 35.2 (L) 04/01/2019 MCV 88.4 04/01/2019 PLT 268 04/01/2019 This SmartLink has not been configured with any valid records. This SmartLink has not been configured with any valid records. Laboratory and Additional Data Reviewed: Laboratory 04/05/19 12:09 PM Medications 04/05/19 12:09 PM Transcriptions, Radiology 04/05/19 12:09 PM Thank you for this consultation, we will continue to follow this patient with you. Electronically signed by: Noel Skelton PA-C, [facility] 04/05/19 12:12 PM Noel Skelton PA-C * Zeferino Geronimo DPM - 04/04/2019 2:39 PM EDT Podiatry Inpatient Follow-up 04/04/2019 Zeferino Geronimo DPM [facility] Patient: Maryanne Minaya Date of : 1970 (48 y.o.) PCP: Glenroy Queen MD ASSESSMENT/PLAN: Maryanne Minaya 48 y.o. female with history of 1. Diabetes mellitus with peripheral neuropathy, (hemoglobin A1c 14.3) 2. Fibromyalgia 3. Right great toe osteomyelitis to distal and proximal phalanx with septic interphalangeal joint per MRI -resolved status post right great toe amputation at the level of the metatarsal phalangeal joint Plan: Patient was seen and evaluated at the bedside, I discussed the findings with the patient. Patient was given opportunity to ask questions. Patient elects to have the following treatment as follows: 1. Patient is 2 days status post right great toe amputation. She is feeling much better. 2. New dry sterile dressing was applied by nursing today. Informed the patient her edema is much less. 3. Noted the bone culture sent from the midportion of the hallux interphalangeal joint which broke apart during the amputation was positive for both light growth enterococcus and Streptococcus group viridans. Sensitivities are pending. Intravenous antibiotics per infectious disease. Discussed case with infectious disease previously the patient will require intravenous antibiotics postoperatively at discharge. Dr. Kirkland is managing. 4. Patient was provided with a prescription for a knee scooter to stay off of her right foot. Physical therapy can work with her. 5. Patient will need outpatient follow-up with the wound care center within 5 days of discharge. Patient does understand that I am leaving the group and her care will be transitioned to either Dr. James, Dr. Alcaraz, or Dr. Arcos. 6. Podiatry will follow. SUBJECTIVE: History Since Last Visit: Patient is a 48-year-old diabetic female with severely uncontrolled diabetes. Hemoglobin A1c is 14.3. Patient underwent amputation of her right great toe yesterday. She relates she is doing fine this today. She states she feels better after having it removed. She has no other complaints today. Patient denies nausea, vomiting, fever, chills, and diarrhea. Review of Systems: Constitutional:No fever, no weight loss CV:No chest pain. No ankle swelling Resp:No dyspnea. No wheezing Heme/lymphatic:No apparent lymphadenopathy Allergic/Immunologic:No hives Psych:No unusual mood swings All other systems reviewed and negative other than HPI OBJECTIVE: Physical Examination: BP 135/78 Pulse 84 Temp 97.2 F (36.2 C) (Oral) Resp 18 Ht 5' 5 Wt 93 kg (205 lb 0.4 oz) SpO2 97% BMI 34.12 kg/m Podiatric Exam Vascular: Peripheral pulses are palpable at 2 out of 4 for the right dorsalis pedis pulse, 2 out of4 for the left dorsalis pedis pulse, 2 out of 4 the right posterior tibial pulse, 2 out of 4 for the left posterior tibial pulse. CFT is less than 3 seconds bilaterally. Skin temperature is warm to warm proximal to distal on right. Nonpitting edema is present today which is significantly decreased from what was present yesterday at the amputation site. No increase in warmth to calf, no proximal streaking or lymphangitis. Neurological: Epicritic sensation is grossly absent bilateral via light touch. Babinski test is plantigrade bilaterally. Achilles reflex is present bilateral. Patient is able to follow 2-step commands. No gross motor deficit appreciated at this time bilateral lower extremities. Dermatologic: Amputation site is well coapted without drainage. Dried blood is noted at the center of the incision line. There is no necrosis present. Postoperative edema has markedly decreased.. No dehiscence is present. Please refer to the clinical pictures below: Musculoskeletal: Range of motion of the lower extremity at the ankle is diminished range of motion.Muscle strength is 5/5 for all muscle groups . Pain is present on palpation to 1 PIP joint severe pain on the right. Right calf pain. Laboratory and Additional Data Reviewed: Reviewed 04/04/19 2:39 PM: Laboratory, Microbiology and Transcriptions * Dominick Santos MD - 04/04/2019 1:40 PM EDT [facility] Medicine Inpatient Follow-up 04/04/2019 Dominick Santos MD [facility] Patient: Maryanne Minaya Date of : 1970 (48 y.o.) PCP: Glenroy Queen MD ASSESSMENT/PLAN: Maryanne Minaya 48 y.o. female presented with complains of foot infection Active Problems: Diabetic foot (HCC) Diabetes mellitus type 2, uncontrolled, with complications ([facility]) PLAN: s/p amputation 04/02 Afebrile Improved glycemic control, now on lantus 40 bid endo following Will order midline for Thursday 04/05, will need for at least 4 weeks of IV antibiotics per Dr. Reddy. Currently on vancomycin and Zosyn SUBJECTIVE: Denies complaints. No shortness of breath. No fever All other systems reviewed and negative other than noted above. OBJECTIVE: Physical Examination: BP 135/78 Pulse 84 Temp 97.2 F (36.2 C) (Oral) Resp 18 Ht 5' 5 Wt 93 kg (205 lb 0.4 oz) SpO2 97% BMI 34.12 kg/m General Appearance: Alert, well appearing, and in no acute distress. HEENT: Head - Normocephalic, atraumatic. Eyes - BRANDON bilaterally and EOMI. Ears - normal external appearance, hearing intact. Nose - normal, no erythema. Throat - mucous membranes moist, pharynx without lesions. Neck: Supple, trachea midline. Cardiovascular: S1, S2 normal. No murmurs, rubs, clicks or gallops appreciated. No pedal edema. Respiratory: Lungs clear to auscultation, no wheezes, rales or rhonchi heard. Abdomen: Soft, non-tender, normal bowel sounds, non-distended, no masses or organomegaly appreciated. Neurological: Grossly normal motor and sensory exam. No focal deficits. Musculoskeletal: No joint tenderness, deformity or swelling. Skin: rt foot in dressing Psych: Alert, oriented x 3. Normal mood and affect. CURRENT MEDICATIONS: atorvastatin 80 mg Oral Daily docusate sodium 100 mg Oral BID DULoxetine 60 mg Oral Daily enoxaparin (LOVENOX) injection 40 mg Subcutaneous Daily famotidine 20 mg Oral BID hydroCHLOROthiazide 50 mg Oral Daily insulin glargine 40 Units Subcutaneous BID lispro insulin 0-15 Units Subcutaneous at bedtime insulin lispro 0-30 Units Subcutaneous TID AC levothyroxine 112 mcg Oral Daily lisinopril 20 mg Oral Daily piperacillin-tazobactam (ZOSYN) extended infusion 3.375 g Intravenous Q8H pregabalin 100 mg Oral Daily sodium chloride (PF) 10 mL Intracatheter Q8H ASHLEY traZODone 25 mg Oral Nightly vancomycin 1,750 mg Intravenous Q12H vancomycin per pharmacy 1 each Intravenous as indicated by pharmacokinetics Results/Medications Reviewed 04/04/19 1:40 PM: Results from last 7 days Lab Units 04/03/19 0500 04/01/19 0553 03/31/19 0437 03/30/19 0630 SODIUM mmol/L -- 142 139 138 POTASSIUM mmol/L -- 3.4* 3.6 3.6 CHLORIDE mmol/L -- 109* 105 108 BUN mg/dL -- 6* 10 10 CREATININE mg/dL 0.97 0.44 0.54 0.55 GLUCOSE mg/dL -- 159* 277* 231* Results from last 7 days Lab Units 04/01/19 0551 03/31/19 0437 03/30/19 0629 WBC K/mcL 7.72 7.95 8.25 HGB g/dL 11.0* 12.0 11.0* HCT % 35.2* 37.9 34.0* PLT K/mcL 268 276 224 Invalid input(s): LABALBU CULTURES: Reviewed 1:40 PM IMAGING: Reviewed 1:40 PM * Mariano Kirkland MD - 04/04/2019 10:56 AM EDT Patient Name: Maryanne Minaya Admit Date: [id number] MR #: [id number] : 1970 Physicians: Glenroy Queen MD (Family); Dee Marx DO (Referring) Assessment: Patient with 1. Possible osteomyelitis of the right big toe 2. Chronic ulceration of the right big toe 3. Cellulitis of the right foot. 4. Fever 5. Uncontrolled diabetes Plan. Continue patient on current therapy Patient currently on vancomycin intravenously Have Vanco trough level of 15-20 maintained Reviewed wound culture, and blood culture Endocrinology evaluation appreciated Follow-up ESR, C-reactive protein, We will follow-up labs and blood culture. Patient was status post right big toe amputation. Discussed with Dr. Geronimo, the seat pack inspector on management plan. Had indicated that the amputated right big toe was soft and necrotic. Follow-up pathology, and bone cultures Subjective: No new symptoms, no fever, no chills, experiencing pain in the amputated toe. No diarrhea, patient status post amputation of the right big toe Exam: PACU Vitals 04/04/1945 BP: 135/78 Pulse: 84 Resp: 18 Temp: 97.2 F (36.2 C) SpO2: Allergies: Azithromycin; Clindamycin; and Erythromycin Current Facility-Administered Medications: acetaminophen (TYLENOL) tablet 650 mg, 650 mg, Oral, Q4H PRN, Yaritza Cain MD, 650 mg at 04/03/192116 atorvastatin (LIPITOR) tablet 80 mg, 80 mg, Oral, Daily, Yaritza Cain MD, 80 mg at 04/04/19942 docusate sodium (COLACE) capsule 100 mg, 100 mg, Oral, BID, Maggy Kimbrough CNP, 100 mg at 04/04/19942 DULoxetine (CYMBALTA) DR capsule 60 mg, 60 mg, Oral, Daily, Yaritza Cain MD, 60 mg at 04/03/192115 enoxaparin (LOVENOX) syringe 40 mg, 40 mg, Subcutaneous, Daily, Yaritza Cain MD, 40 mg at 04/04/19947 famotidine (PEPCID) tablet 20 mg, 20 mg, Oral, BID, Yaritza Cain MD, 20 mg at 04/04/19942 hydroCHLOROthiazide (HYDRODIURIL) tablet 50 mg, 50 mg, Oral, Daily, Yaritza Cain MD, 50 mg at 04/04/19942 HYDROcodone-acetaminophen (NORCO) 5-325 mg per tablet 1 tablet, 1 tablet, Oral, Q4H PRN, Yaritza Cain MD, 1 tablet at 04/04/19 0943 hydrOXYzine (ATARAX) tablet 100 mg, 100 mg, Oral, Nightly PRN, Maggy Kimbrough, ESCOBAR, 100 mg at 04/01/19 2030 insulin glargine (LANTUS) injection 40 Units, 40 Units, Subcutaneous, BID, Destiny Harris MD, 40 Units at 04/03/19 2355 insulin lispro (HumaLOG) injection 0-15 Units, 0-15 Units, Subcutaneous, at bedtime, Destiny Harris MD insulin lispro (HumaLOG) injection 0-30 Units, 0-30 Units, Subcutaneous, TID AC, Destiny Harris MD, 16 Units at 04/04/19 0945 levothyroxine (SYNTHROID, LEVOTHROID) tablet 112 mcg, 112 mcg, Oral, Daily, Yaritza Cain MD, 112 mcgat 04/04/19 0943 lidocaine 10 mg/mL (1 %) injection 1 mL, 1 mL, Intradermal, Once PRN, Dominick Santos MD lisinopril (PRINIVIL,ZESTRIL) tablet 20 mg, 20 mg, Oral, Daily, Yaritza Cain MD, 20 mg at 04/04/19 0943 naloxone (NARCAN) injection 0.1 mg, 0.1 mg, Intravenous, PRN, Yaritza Cain MD naloxone (NARCAN) injection 0.4 mg, 0.4 mg, Intravenous, PRN, Yaritza Cain MD piperacillin-tazobactam (ZOSYN) IVPB 3.375 g (premix), 3.375 g, Intravenous, Q8H, Yaritza Cain MD, Last Rate: 12.5 mL/hr at 04/04/19 0253, 3.375 g at 04/04/19 0253 pregabalin (LYRICA) capsule 100 mg, 100 mg, Oral, Daily, Dominick Santos MD, 100 mg at 04/03/19 2117 sodium chloride (PF) (NS) flush 10 mL, 10 mL, Intracatheter, Q8H ASHLEY, Dominick Santos MD, 10mL at 04/03/19 1423 sodium chloride (PF) (NS) flush 10-20 mL, 10-20 mL, Intracatheter, PRN, Dominick Santos MD [COMPLETED] Insert peripheral IV, , , Once AND Saline lock IV, , , Once AND sodium chloride(PF) (NS) flush 5 mL, 5 mL, Intravenous, PRN AND sodium chloride 0.9% (NS), 0-150 mL/hr, Intravenous, PRN, Isaac Duran PA-C traZODone (DESYREL) tablet 25 mg, 25 mg, Oral, Nightly, Yaritza Cain MD, 25 mg at 04/03/192116 vancomycin (VANCOCIN) 1750 mg in sodium chloride 0.9% (NS) 500 mL IVPB, 1,750 mg, Intravenous, Q12H, Ryan Crowley Jr., [facility],PharmD, Last Rate: 250 mL/hr at 04/04/19 0000, 1,750 mg at 04/04/19 0000 vancomycin per pharmacy 1 each, 1 each, Intravenous, as indicated by pharmacokinetics, Yaritza Cain MD PMH/PSH/SH/ reviewed, no change : Review of Systems: All systems were reviewed no change: Medications Reviewed. Chart Reviewed. Exam Findings: Neck: Supple, no rigidity ENT: No oral candidiasis Chest: Lungs clear bilaterally, no wheezing, or rales CVS: Normal S1 & S2+, Normal Rhythm Abdomen: Normal symmetry, Soft/non-tender. Benign, BS+ Extremities: No Deformities or Edema, right big toe with ulceration, and erythema. Tender to palpation, with dressings Skin: Intact & No Rashes, or excoriations Musculoskeletal: No joint swelling, non tender WORKFORCE CONSULTANT: Awake, and Ox3, with depressive look Wound: Big toe status post amputation, sutures in place, no drainage or wound gaping. Surrounding area with still erythema. Carrillo Catheter: None IV Access: Yes I reviewed Medications. I reviewed Labs. Laboratory and Additional Data Reviewed: Laboratory 04/04/19 10:57 AM Microbiology 04/04/19 10:57 AM Radiology 04/04/19 10:57 AM XR Foot Right 2 Views Final Result 1. Status post amputation of the phalanges of the great toe. No fracture or dislocation noted. 2. Moderate plantar calcaneal spurring. Workstation ID: [id number] Ultrasound duplex venous leg right Final Result MR Foot Right Without Contrast Final Result 1. There is an ulcer along the plantar aspect of the 1st toe medially extending deep into the soft tissues nearly to the plantar cortex of the base of the distal phalanx. There is associated [id number] subcutaneous edema and soft tissue swelling along the plantar aspect of the 1st toe and moderate subcutaneous edema and soft tissue swelling in the midfoot to forefoot suspicious for cellulitis. Correlation for the clinical extent of cellulitis would be helpful. 2. MRI findings are consistent with osteomyelitis in the distal and proximal phalanges of the 1st toe with increased STIR and low T1 signal. There is also suspected joint infection and septic arthritis involving the IP joint of the 1st toe. 3. No focal abscess. JML/jcw Workstation ID: [id number] XR Foot Right 3+ Views (Standard) Final Result 1. Subtle osteolysis of the lateral aspect of the proximal phalanx of 1st digit with soft tissue defect along the plantar surface of the 1st digit concerning for infection of the soft tissue as well as probably osteomyelitis. Further evaluation with 3-phase bone scan or MRI could be performed. 2. No definite fractures or dislocations. [facility] Workstation ID: [id number] Medications 04/04/19 10:57 AM Lab Results Component Value Date WBC 7.72 04/01/2019 HGB 11.0 (L) 04/01/2019 HCT 35.2 (L) 04/01/2019 MCV 88.4 04/01/2019 PLT 268 04/01/2019 Lab Results Component Value Date GLUCOSE 159 (H) 04/01/2019 CALCIUM 7.7 (L) 03/28/2019 NA 142 04/01/2019 K 3.4 (L) 04/01/2019 CL 109 (H) 04/01/2019 BUN 6 (L) 04/01/2019 CREATININE 0.97 04/03/2019 Problem List Items Addressed This Visit None Visit Diagnoses Diabetic ulcer of toe of right foot associated with type 2 diabetes mellitus, with bone involvementwithout evidence of necrosis (HCC) - Primary Relevant Medications insulin glargine (LANTUS U-100 INSULIN) 100 unit/mL injection insulin lispro (HumaLOG U-100 Insulin) 100 unit/mL injection insulin lispro (HumaLOG) injection 0-30 Units insulin glargine (LANTUS) injection 30 Units (Completed) insulin glargine (LANTUS) injection 40 Units insulin lispro (HumaLOG) injection 0-15 Units I discussed my management plans with Patient/and or Family member, and also discussed antibiotics therapy including side effects with Patient/and or Family member. Medical Decision Making: High * Mariano Kirkland MD - 04/03/2019 3:57 PM EDT Patient Name: Maryanne Minaya Admit Date: [id number] MR #: [id number] : 1970 Physicians: Glenroy Queen MD (Family); Dee Marx DO (Referring) Assessment: Patient with 1. Possible osteomyelitis of the right big toe 2. Chronic ulceration of the right big toe 3. Cellulitis of the right foot. 4. Fever 5. Uncontrolled diabetes Plan. Continue patient on current therapy Patient currently on vancomycin intravenously Have Vanco trough level of 15-20 maintained Reviewed wound culture, and blood culture Endocrinology evaluation appreciated Follow-up ESR, C-reactive protein, We will follow-up labs and blood culture. Patient was status post right big toe amputation. Discussed with Dr. Geronimo, the seat pack inspector on management plan. Had indicated that the amputated right big toe was soft and necrotic. Follow-up pathology, and bone cultures Subjective: No new symptoms, no fever, no chills, still with some foot pain, no diarrhea, patient status post amputation of the right big toe Exam: PACU Vitals 04/03/1946 BP: 94/60 Pulse: (!) 59 Resp: 16 Temp: 97.7 F (36.5 C) SpO2: 97% Allergies: Azithromycin; Clindamycin; and Erythromycin Current Facility-Administered Medications: acetaminophen (TYLENOL) tablet 650 mg, 650 mg, Oral, Q4H PRN, Yaritza Cain MD, 650 mg at 04/03/1946 atorvastatin (LIPITOR) tablet 80 mg, 80 mg, Oral, Daily, Yaritza Cain MD, 80 mg at 04/03/19 0935 docusate sodium (COLACE) capsule 100 mg, 100 mg, Oral, BID, Maggy Laay Luis E, [employer] M[employer], 100 mg at 04/03/19934 DULoxetine (CYMBALTA) DR capsule 60 mg, 60 mg, Oral, Daily, Yaritza Cain MD, 60 mg at 04/02/192038 enoxaparin (LOVENOX) syringe 40 mg, 40 mg, Subcutaneous, Daily, Yaritza Cain MD, 40 mg at 04/03/19742 famotidine (PEPCID) tablet 20 mg, 20 mg, Oral, BID, Yaritza Cain MD, 20 mg at 04/03/19934 hydroCHLOROthiazide (HYDRODIURIL) tablet 50 mg, 50 mg, Oral, Daily, Yaritza Cain MD, 50 mg at 04/03/19934 HYDROcodone-acetaminophen (NORCO) 5-325 mg per tablet 1 tablet, 1 tablet, Oral, Q4H PRN, Yaritza Cain MD, 1 tablet at 04/03/19 1210 hydrOXYzine (ATARAX) tablet 100 mg, 100 mg, Oral, Nightly PRN, Maggy Kimbrough, [employer] M[employer], 100 mg at 04/01/19 2030 insulin glargine (LANTUS) injection 40 Units, 40 Units, Subcutaneous, BID, Destiny Harris MD, 40 Units at 04/02/19 2138 insulin lispro (HumaLOG) injection 0-15 Units, 0-15 Units, Subcutaneous, at bedtime, Destiny Harris MD insulin lispro (HumaLOG) injection 0-30 Units, 0-30 Units, Subcutaneous, TID AC, Destiny Harris MD, 20 Units at 04/03/19 1210 lactated Ringers infusion, 100 mL/hr, Intravenous, Continuous, Dami Lerma MD levothyroxine (SYNTHROID, LEVOTHROID) tablet 112 mcg, 112 mcg, Oral, Daily, Yaritza Cain MD, 112 mcgat 04/03/19934 lidocaine 10 mg/mL (1 %) injection 1 mL, 1 mL, Intradermal, Once PRN, Dominick Santos MD lisinopril (PRINIVIL,ZESTRIL) tablet 20 mg, 20 mg, Oral, Daily, Yaritza Cain MD, 20 mg at 04/03/19 0935 naloxone (NARCAN) injection 0.1 mg, 0.1 mg, Intravenous, PRN, Yaritza Cain MD naloxone (NARCAN) injection 0.4 mg, 0.4 mg, Intravenous, PRN, Yaritza Cain MD piperacillin-tazobactam (ZOSYN) IVPB 3.375 g (premix), 3.375 g, Intravenous, Q8H, Yaritza Cain MD, Stopped at 04/03/19 1021 pregabalin (LYRICA) capsule 100 mg, 100 mg, Oral, Daily, Dominick Santos MD, 100 mg at 04/02/192038 sodium chloride (PF) (NS) flush 10 mL, 10 mL, Intracatheter, Q8H ASHLEY, Dominick Santos MD, 10mL at 04/03/19 142 sodium chloride (PF) (NS) flush 10-20 mL, 10-20 mL, Intracatheter, PRN, Dominick Santos MD [COMPLETED] Insert peripheral IV, , , Once AND Saline lock IV, , , Once AND sodium chloride(PF) (NS) flush 5 mL, 5 mL, Intravenous, PRN AND sodium chloride 0.9% (NS), 0-150 mL/hr, Intravenous, PRN, Isaac Duran PA-C traZODone (DESYREL) tablet 25 mg, 25 mg, Oral, Nightly, Yaritza Cain MD, 25 mg at 04/02/192038 vancomycin (VANCOCIN) 1750 mg in sodium chloride 0.9% (NS) 500 mL IVPB, 1,750 mg, Intravenous, Q12H, Ryan Crowley Jr., [facility],PharmD, Last Rate: 250 mL/hr at 04/03/19 1424, 1,750 mg at 04/03/19 1424 vancomycin per pharmacy 1 each, 1 each, Intravenous, as indicated by pharmacokinetics, Yaritza Cain MD PMH/PSH/SH/ reviewed, no change : Review of Systems: All systems were reviewed no change: Medications Reviewed. Chart Reviewed. Exam Findings: Neck: Supple, no rigidity ENT: No oral candidiasis Chest: Lungs clear bilaterally, no wheezing, or rales CVS: Normal S1 & S2+, Normal Rhythm Abdomen: Normal symmetry, Soft/non-tender. Benign, BS+ Extremities: No Deformities or Edema, right big toe with ulceration, and erythema. Tender to palpation, dressed currently Skin: Intact & No Rashes, or excoriations Musculoskeletal: No joint swelling, non tender WORKFORCE CONSULTANT: Awake, and Ox3, with depressive look Wound: Big toe status post amputation, sutures in place, no drainage or wound gaping. Surrounding area with still erythema. Carrillo Catheter: None IV Access: Yes I reviewed Medications. I reviewed Labs. Laboratory and Additional Data Reviewed: Laboratory 04/03/19 3:57 PM Microbiology 04/03/19 3:57 PM Radiology 04/03/19 3:57 PM XR Foot Right 2 Views Final Result 1. Status post amputation of the phalanges of the great toe. No fracture or dislocation noted. 2. Moderate plantar calcaneal spurring. Workstation ID: [id number] Ultrasound duplex venous leg right Final Result MR Foot Right Without Contrast Final Result 1. There is an ulcer along the plantar aspect of the 1st toe medially extending deep into the soft tissues nearly to the plantar cortex of the base of the distal phalanx. There is associated [id number] subcutaneous edema and soft tissue swelling along the plantar aspect of the 1st toe and moderate subcutaneous edema and soft tissue swelling in the midfoot to forefoot suspicious for cellulitis. Correlation for the clinical extent of cellulitis would be helpful. 2. MRI findings are consistent with osteomyelitis in the distal and proximal phalanges of the 1st toe with increased STIR and low T1 signal. There is also suspected joint infection and septic arthritis involving the IP joint of the 1st toe. 3. No focal abscess. JML/jcw Workstation ID: [id number] XR Foot Right 3+ Views (Standard) Final Result 1. Subtle osteolysis of the lateral aspect of the proximal phalanx of 1st digit with soft tissue defect along the plantar surface of the 1st digit concerning for infection of the soft tissue as well as probably osteomyelitis. Further evaluation with 3-phase bone scan or MRI could be performed. 2. No definite fractures or dislocations. JOSE/c Workstation ID: [id number] Medications 04/03/19 3:57 PM Lab Results Component Value Date WBC 7.72 04/01/2019 HGB 11.0 (L) 04/01/2019 HCT 35.2 (L) 04/01/2019 MCV 88.4 04/01/2019 PLT 268 04/01/2019 Lab Results Component Value Date GLUCOSE 159 (H) 04/01/2019 CALCIUM 7.7 (L) 03/28/2019 NA 142 04/01/2019 K 3.4 (L) 04/01/2019 CL 109 (H) 04/01/2019 BUN 6 (L) 04/01/2019 CREATININE 0.97 04/03/2019 Problem List Items Addressed This Visit None Visit Diagnoses Diabetic ulcer of toe of right foot associated with type 2 diabetes mellitus, with bone involvementwithout evidence of necrosis (HCC) - Primary Relevant Medications insulin glargine (LANTUS U-100 INSULIN) 100 unit/mL injection insulin lispro (HumaLOG U-100 Insulin) 100 unit/mL injection insulin lispro (HumaLOG) injection 0-30 Units insulin glargine (LANTUS) injection 30 Units (Completed) insulin glargine (LANTUS) injection 40 Units insulin lispro (HumaLOG) injection 0-15 Units I discussed my management plans with Patient/and or Family member, and also discussed antibiotics therapy including side effects with Patient/and or Family member. Medical Decision Making: High * Zeferino Geronimo DPM - 04/03/2019 12:45 PM EDT Podiatry Inpatient Follow-up 04/03/2019 Zeferino Geronimo DPM [facility] Patient: Maryanne Minaya Date of : 1970 (48 y.o.) PCP: Glenroy Queen MD ASSESSMENT/PLAN: Maryanne Minaya 48 y.o. female with history of 1. Diabetes mellitus with peripheral neuropathy, (hemoglobin A1c 14.3) 2. Fibromyalgia 3. Right great toe osteomyelitis to distal and proximal phalanx with septic interphalangeal joint per MRI -resolved status post right great toe amputation at the level of the metatarsal phalangeal joint Plan: Patient was seen and evaluated at the bedside, I discussed the findings with the patient. Patient was given opportunity to ask questions. Patient elects to have the following treatment as follows: 1. Patient is day 1 status post right great toe amputation for osteomyelitis with chronic ulceration. She is doing well. Patient understands the need to maintain nonweightbearing status. 2. New dry sterile dressing with compression applied by nursing. Physician will initiate dressing change tomorrow. 3. Noted infectious disease recommendations for IV antibiotics post discharge. I would agree. The amount of tissue destruction within the toe at the time of the amputation was noted to be severe. Dueto the level of the amputation being at the metatarsal phalangeal joint in that area being clean primary closure was proceeded with. 4. Continue intravenous antibiotics per infectious disease at this point. Surgical culture shows normal pamela after 24 hours only. 5. SUBJECTIVE: History Since Last Visit: Patient is a 48-year-old diabetic female with severely uncontrolled diabetes. Hemoglobin A1c is 14.3. Patient underwent amputation of her right great toe yesterday. She relates she is doing fine this morning. She states she feels better after having it removed. She has no other complaints today. Patient denies nausea, vomiting, fever, chills, and diarrhea. Review of Systems: Constitutional:No fever, no weight loss CV:No chest pain. No ankle swelling Resp:No dyspnea. No wheezing Heme/lymphatic:No apparent lymphadenopathy Allergic/Immunologic:No hives Psych:No unusual mood swings All other systems reviewed and negative other than HPI OBJECTIVE: Physical Examination: BP 94/60 Pulse (!) 59 Temp 97.7 F (36.5 C) (Oral) Resp 16 Ht 5' 5 Wt 93 kg (205 lb 0.4 oz) SpO2 97% BMI 34.12 kg/m Podiatric Exam Vascular: Peripheral pulses are palpable at 2 out of 4 for the right dorsalis pedis pulse, 2 out of4 for the left dorsalis pedis pulse, 2 out of 4 the right posterior tibial pulse, 2 out of 4 for the left posterior tibial pulse. CFT is less than 3 seconds bilaterally. Skin temperature is warm to warm proximal to distal on right. +2 pitting edema is present at the amputation site. No increase in warmth to calf, no proximal streaking or lymphangitis. Neurological: Epicritic sensation is grossly absent bilateral via light touch. Babinski test is plantigrade bilaterally. Achilles reflex is present bilateral. Patient is able to follow 2-step commands. No gross motor deficit appreciated at this time bilateral lower extremities. Dermatologic: Amputation site is well coapted without drainage. Dried blood is noted at the center of the incision line. There is no necrosis present. Postoperative edema is present and consistent for day 1 postop. No dehiscence is present. Please refer to the clinical pictures below. Musculoskeletal: Range of motion of the lower extremity at the ankle is diminished range of motion.Muscle strength is 5/5 for all muscle groups . Pain is present on palpation to 1 PIP joint severe pain on the right. Right calf pain. Laboratory and Additional Data Reviewed: Reviewed 04/03/19 12:45 PM: Laboratory, Microbiology and Transcriptions * Dominick Santos MD - 04/03/2019 10:33 AM EDT [facility] Medicine Inpatient Follow-up 04/03/2019 Dominick Santos MD [facility] Patient: Maryanne Minaya Date of : 1970 (48 y.o.) PCP: Glenroy Queen MD ASSESSMENT/PLAN: Maryanne Minaya 48 y.o. female presented with complains of foot infection Active Problems: Diabetic foot (HCC) Diabetes mellitus type 2, uncontrolled, with complications (HCC) PLAN: On empiric vanco and zosyn, ID following E Cultures are NGTD s/p amputation 04/02 Afebrile Improved glycemic control, now on lantus 50 am and 30 pm endo following Will order midline SUBJECTIVE: Denies complaints. No shortness of breath. No fever All other systems reviewed and negative other than noted above. OBJECTIVE: Physical Examination: BP 94/60 Pulse (!) 59 Temp 97.7 F (36.5 C) (Oral) Resp 16 Ht 5' 5 Wt 93 kg (205 lb 0.4 oz) SpO2 97% BMI 34.12 kg/m General Appearance: Alert, well appearing, and in no acute distress. HEENT: Head - Normocephalic, atraumatic. Eyes - BRANDON bilaterally and EOMI. Ears - normal external appearance, hearing intact. Nose - normal, no erythema. Throat - mucous membranes moist, pharynx without lesions. Neck: Supple, trachea midline. Cardiovascular: S1, S2 normal. No murmurs, rubs, clicks or gallops appreciated. No pedal edema. Respiratory: Lungs clear to auscultation, no wheezes, rales or rhonchi heard. Abdomen: Soft, non-tender, normal bowel sounds, non-distended, no masses or organomegaly appreciated. Neurological: Grossly normal motor and sensory exam. No focal deficits. Musculoskeletal: No joint tenderness, deformity or swelling. Skin: rt foot in dressing Psych: Alert, oriented x 3. Normal mood and affect. CURRENT MEDICATIONS: atorvastatin 80 mg Oral Daily docusate sodium 100 mg Oral BID DULoxetine 60 mg Oral Daily enoxaparin (LOVENOX) injection 40 mg Subcutaneous Daily famotidine 20 mg Oral BID hydroCHLOROthiazide 50 mg Oral Daily insulin glargine 40 Units Subcutaneous BID lispro insulin 0-15 Units Subcutaneous at bedtime insulin lispro 0-30 Units Subcutaneous TID AC levothyroxine 112 mcg Oral Daily lisinopril 20 mg Oral Daily piperacillin-tazobactam (ZOSYN) extended infusion 3.375 g Intravenous Q8H pregabalin 100 mg Oral Daily traZODone 25 mg Oral Nightly vancomycin 1,750 mg Intravenous Q12H vancomycin per pharmacy 1 each Intravenous as indicated by pharmacokinetics Results/Medications Reviewed 04/03/19 10:34 AM: Results from last 7 days Lab Units 04/03/19 0500 04/01/19 0553 03/31/19 0437 03/30/19 0630 03/28/19 0505 03/28/19 0027 SODIUM mmol/L -- 142 139 138 139 136 POTASSIUM mmol/L -- 3.4* 3.6 3.6 3.3* 3.4* CHLORIDE mmol/L -- 109* 105 108 106 102 BUN mg/dL -- 6* 10 10 11 10 CREATININE mg/dL 0.97 0.44 0.54 0.55 0.58 0.75 GLUCOSE mg/dL -- 159* 277* 231* 239* 213* CALCIUM mg/dL -- -- -- -- 7.7* 8.8 Results from last 7 days Lab Units 04/01/19 0551 03/31/19 0437 03/30/19 0629 WBC K/mcL 7.72 7.95 8.25 HGB g/dL 11.0* 12.0 11.0* HCT % 35.2* 37.9 34.0* PLT K/mcL 268 276 224 Results from last 7 days Lab Units 03/28/19 0426 03/28/19 0027 TROPONIN I ng/L <15 <15 Results from last 7 days Lab Units 03/28/19 0027 ALK PHOS U/L 117 BILIRUBIN TOTAL mg/dL 0.8 BILIRUBIN DIRECT mg/dL 0.2 TOTAL PROTEIN g/dL 7.3 ALTR U/L 12* AST U/L 11 CULTURES: Reviewed 10:34 AM IMAGING: Reviewed 10:34 AM * Lilia Mckeon RN - 04/02/2019 9:30 PM EDT Patient returned to room. * Lilia Mckeon RN - 04/02/2019 9:04 PM EDT Patient request to leave unit to smoke. Educated patient and male visitor of patient isolation and instructed her not to leave her room. Visitor stated she is going one way or another . Visitor assisted patient off the unit in a wheel chair. Charge nurse Samia covarrubias. * Mariano Kirkland MD - 04/02/2019 7:24 PM EDT Patient Name: Maryanne Minaya Admit Date: [id number] MR #: [id number] : 1970 Physicians: Glenroy Queen MD (Family); Dee Marx DO (Referring) Assessment: Patient with 1. Possible osteomyelitis of the right big toe 2. Chronic ulceration of the right big toe 3. Cellulitis of the right foot. 4. Fever 5. Uncontrolled diabetes Plan. Continue patient on current therapy Patient currently on vancomycin intravenously Have Vanco trough level of 15-20 maintained Reviewed wound culture, and blood culture Endocrinology evaluation appreciated Follow-up ESR, C-reactive protein, We will follow-up labs and blood culture. Podiatric,scheduling for surgery for amputation of the great toe today We will continue patient on IV antibiotics on DC. Subjective: No new symptoms, no fever, no chills, still with some foot pain Exam: PACU Vitals 04/02/19 1701 BP: 112/63 Pulse: 74 Resp: Temp: SpO2: 99% Allergies: Azithromycin; Clindamycin; and Erythromycin Current Facility-Administered Medications: acetaminophen (TYLENOL) tablet 650 mg, 650 mg, Oral, Q4H PRN, Yaritza Cain MD, 650 mg at 03/30/19 0607 atorvastatin (LIPITOR) tablet 80 mg, 80 mg, Oral, Daily, Yaritza Cain MD, 80 mg at 04/02/19 08 docusate sodium (COLACE) capsule 100 mg, 100 mg, Oral, BID, Maggy Kimbrough CNP, 100 mg at 04/02/19 08 DULoxetine (CYMBALTA) DR capsule 60 mg, 60 mg, Oral, Daily, Yaritza Cain MD, 60 mg at 04/01/192029 enoxaparin (LOVENOX) syringe 40 mg, 40 mg, Subcutaneous, Daily, Yaritza Cain MD, Stopped at famotidine (PEPCID) tablet 20 mg, 20 mg, Oral, BID, Yaritza Cain MD, 20 mg at 04/02/19 08 hydroCHLOROthiazide (HYDRODIURIL) tablet 50 mg, 50 mg, Oral, Daily, Yaritza Cain MD, 50 mg at 04/02/19 08 HYDROcodone-acetaminophen (NORCO) 5-325 mg per tablet 1 tablet, 1 tablet, Oral, Q4H PRN, Yaritza Cain MD, 1 tablet at 04/02/19 170 hydrOXYzine (ATARAX) tablet 100 mg, 100 mg, Oral, Nightly PRN, Maggy Kimbrough CNP, 100 mg at 04/01/19 2030 insulin glargine (LANTUS) injection 40 Units, 40 Units, Subcutaneous, BID, Destiny Harris MD insulin lispro (HumaLOG) injection 0-15 Units, 0-15 Units, Subcutaneous, at bedtime, Destiny Harris MD insulin lispro (HumaLOG) injection 0-30 Units, 0-30 Units, Subcutaneous, TID AC, Destiny Harris MD, 16 Units at 04/02/19 1700 lactated Ringers infusion, 100 mL/hr, Intravenous, Continuous, Dami Lerma MD levothyroxine (SYNTHROID, LEVOTHROID) tablet 112 mcg, 112 mcg, Oral, Daily, Yaritza Cain MD, 112 mcgat 04/02/19 0822 lisinopril (PRINIVIL,ZESTRIL) tablet 20 mg, 20 mg, Oral, Daily, Yaritza Cain MD, 20 mg at 04/02/19 0822 naloxone (NARCAN) injection 0.1 mg, 0.1 mg, Intravenous, PRN, Yaritza Cain MD naloxone (NARCAN) injection 0.4 mg, 0.4 mg, Intravenous, PRN, Yaritza Cain MD piperacillin-tazobactam (ZOSYN) IVPB 3.375 g (premix), 3.375 g, Intravenous, Q8H, Yaritza Cain MD, Last Rate: 12.5 mL/hr at 04/02/19 0650, 3.375 g at 04/02/19 0650 pregabalin (LYRICA) capsule 100 mg, 100 mg, Oral, Daily, Dominick Santos MD, 100 mg at 04/01/192051 [COMPLETED] Insert peripheral IV, , , Once AND Saline lock IV, , , Once AND sodium chloride(PF) (NS) flush 5 mL, 5 mL, Intravenous, PRN AND sodium chloride 0.9% (NS), 0-150 mL/hr, Intravenous, PRN, Isaac Duran PA-C traZODone (DESYREL) tablet 25 mg, 25 mg, Oral, Nightly, Yaritza Cain MD, 25 mg at 04/01/192029 vancomycin (VANCOCIN) 1750 mg in sodium chloride 0.9% (NS) 500 mL IVPB, 1,750 mg, Intravenous, Q12H, Ryan Crowley Jr., [facility],PharmD, Last Rate: 250 mL/hr at 04/02/19 1131, 1,750 mg at 04/02/19 1131 vancomycin per pharmacy 1 each, 1 each, Intravenous, as indicated by pharmacokinetics, Yaritza Cain MD PMH/PSH/SH/ reviewed, no change : Review of Systems: All systems were reviewed no change: Medications Reviewed. Chart Reviewed. Exam Findings: Neck: Supple, no rigidity ENT: No oral candidiasis Chest: Lungs clear bilaterally, no wheezing, or rales CVS: Normal S1 & S2+, Normal Rhythm Abdomen: Normal symmetry, Soft/non-tender. Benign, BS+ Extremities: No Deformities or Edema, right big toe with ulceration, and erythema. Tender to palpation, dressed currently Skin: Intact & No Rashes, or excoriations Musculoskeletal: No joint swelling, non tender WORKFORCE CONSULTANT: Awake, and Ox3, with depressive look Wound: Big toe with ulceration, and tender to palpation. Dorsal aspect with erythema but stable. Carrillo Catheter: None IV Access: Yes I reviewed Medications. I reviewed Labs. Laboratory and Additional Data Reviewed: Laboratory 04/02/19 7:24 PM Microbiology 04/02/19 7:24 PM Radiology 04/02/19 7:24 PM XR Foot Right 2 Views Final Result 1. Status post amputation of the phalanges of the great toe. No fracture or dislocation noted. 2. Moderate plantar calcaneal spurring. Workstation ID: [id number] Ultrasound duplex venous leg right Final Result MR Foot Right Without Contrast Final Result 1. There is an ulcer along the plantar aspect of the 1st toe medially extending deep into the soft tissues nearly to the plantar cortex of the base of the distal phalanx. There is associated [id number] subcutaneous edema and soft tissue swelling along the plantar aspect of the 1st toe and moderate subcutaneous edema and soft tissue swelling in the midfoot to forefoot suspicious for cellulitis. Correlation for the clinical extent of cellulitis would be helpful. 2. MRI findings are consistent with osteomyelitis in the distal and proximal phalanges of the 1st toe with increased STIR and low T1 signal. There is also suspected joint infection and septic arthritis involving the IP joint of the 1st toe. 3. No focal abscess. SILVIAL/jcw Workstation ID: [id number] XR Foot Right 3+ Views (Standard) Final Result 1. Subtle osteolysis of the lateral aspect of the proximal phalanx of 1st digit with soft tissue defect along the plantar surface of the 1st digit concerning for infection of the soft tissue as well as probably osteomyelitis. Further evaluation with 3-phase bone scan or MRI could be performed. 2. No definite fractures or dislocations. KKV/rlc Workstation ID: [id number] Medications 04/02/19 7:24 PM Lab Results Component Value Date WBC 7.72 04/01/2019 HGB 11.0 (L) 04/01/2019 HCT 35.2 (L) 04/01/2019 MCV 88.4 04/01/2019 PLT 268 04/01/2019 Lab Results Component Value Date GLUCOSE 159 (H) 04/01/2019 CALCIUM 7.7 (L) 03/28/2019 NA 142 04/01/2019 K 3.4 (L) 04/01/2019 CL 109 (H) 04/01/2019 BUN 6 (L) 04/01/2019 CREATININE 0.44 04/01/2019 Problem List Items Addressed This Visit None Visit Diagnoses Diabetic ulcer of toe of right foot associated with type 2 diabetes mellitus, with bone involvementwithout evidence of necrosis (HCC) - Primary Relevant Medications insulin glargine (LANTUS U-100 INSULIN) 100 unit/mL injection insulin lispro (HumaLOG U-100 Insulin) 100 unit/mL injection insulin lispro (HumaLOG) injection 0-30 Units insulin glargine (LANTUS) injection 30 Units (Completed) insulin glargine (LANTUS) injection 40 Units (Start on 04/02/2019 9:00 PM) insulin lispro (HumaLOG) injection 0-15 Units (Start on 04/02/2019 9:00 PM) I discussed my management plans with Patient/and or Family member, and also discussed antibiotics therapy including side effects with Patient/and or Family member. Medical Decision Making: High * Dominick Santos MD - 04/02/2019 1:44 PM EDT [facility] Medicine Inpatient Follow-up 04/02/2019 Dominick Santos MD [facility] Patient: Maryanne Minaya Date of : 1970 (48 y.o.) PCP: Glenroy Queen MD ASSESSMENT/PLAN: Maryanne Minaya 48 y.o. female presented with complains of foot infection Active Problems: Diabetic foot (HCC) Diabetes mellitus type 2, uncontrolled, with complications (HCC) PLAN: On empiric vanco and zosyn, ID following E Cultures are NGTD Plan for amputation today Afebrile Improved glycemic control, now on lantus 50 am and 30 pm endo following SUBJECTIVE: Denies complaints. No shortness of breath. No fever All other systems reviewed and negative other than noted above. OBJECTIVE: Physical Examination: BP 112/78 Pulse 87 Temp 98 F (36.7 C) (Oral) Resp 16 Ht 5' 5 Wt 93 kg (205 lb 0.4 oz) SpO2 95% BMI 34.12 kg/m General Appearance: Alert, well appearing, and in no acute distress. HEENT: Head - Normocephalic, atraumatic. Eyes - BRANDON bilaterally and EOMI. Ears - normal external appearance, hearing intact. Nose - normal, no erythema. Throat - mucous membranes moist, pharynx without lesions. Neck: Supple, trachea midline. Cardiovascular: S1, S2 normal. No murmurs, rubs, clicks or gallops appreciated. No pedal edema. Respiratory: Lungs clear to auscultation, no wheezes, rales or rhonchi heard. Abdomen: Soft, non-tender, normal bowel sounds, non-distended, no masses or organomegaly appreciated. Neurological: Grossly normal motor and sensory exam. No focal deficits. Musculoskeletal: No joint tenderness, deformity or swelling. Skin: rt foot in dressing Psych: Alert, oriented x 3. Normal mood and affect. CURRENT MEDICATIONS: [NOV Hold] atorvastatin 80 mg Oral Daily [Nov] docusate sodium 100 mg Oral BID [Nov] DULoxetine 60 mg Oral Daily [Nov] enoxaparin (LOVENOX) injection 40 mg Subcutaneous Daily [Nov] famotidine 20 mg Oral BID [Nov] hydroCHLOROthiazide 50 mg Oral Daily [Nov] insulin glargine 40 Units Subcutaneous BID [Nov] lispro insulin 0-15 Units Subcutaneous at bedtime [Nov] insulin lispro 0-30 Units Subcutaneous TID AC [Nov] levothyroxine 112 mcg Oral Daily [Nov] lisinopril 20 mg Oral Daily [Nov] piperacillin-tazobactam (ZOSYN) extended infusion 3.375 g Intravenous Q8H [NOV Hold] pregabalin 100 mg Oral Daily [NOV Hold] traZODone 25 mg Oral Nightly [Nov] vancomycin 1,750 mg Intravenous Q12H [Nov] vancomycin per pharmacy 1 each Intravenous as indicated by pharmacokinetics Results/Medications Reviewed 04/02/19 1:44 PM: Results from last 7 days Lab Units 04/01/19 0553 03/31/19 0437 03/30/19 0630 03/28/19 0505 03/28/19 0027 SODIUM mmol/L 142 139 138 139 136 POTASSIUM mmol/L 3.4* 3.6 3.6 3.3* 3.4* CHLORIDE mmol/L 109* 105 108 106 102 BUN mg/dL 6* 10 10 11 10 CREATININE mg/dL 0.44 0.54 0.55 0.58 0.75 GLUCOSE mg/dL 159* 277* 231* 239* 213* CALCIUM mg/dL -- -- -- 7.7* 8.8 Results from last 7 days Lab Units 04/01/19 0551 03/31/19 0437 03/30/19 0629 WBC K/mcL 7.72 7.95 8.25 HGB g/dL 11.0* 12.0 11.0* HCT % 35.2* 37.9 34.0* PLT K/mcL 268 276 224 Results from last 7 days Lab Units 03/28/19 0426 03/28/19 0027 TROPONIN I ng/L <15 <15 Results from last 7 days Lab Units 03/28/19 0027 ALK PHOS U/L 117 BILIRUBIN TOTAL mg/dL 0.8 BILIRUBIN DIRECT mg/dL 0.2 TOTAL PROTEIN g/dL 7.3 ALTR U/L 12* AST U/L 11 CULTURES: Reviewed 1:44 PM IMAGING: Reviewed 1:44 PM * Alphonso Canada STERILE PROC TECH CHROME PLATER HELPER - 04/02/2019 11:20 AM EDT DISCHARGE PLAN PROGRESS NOTE Date: 04/02/2019 Time: 11:20 AM Patient Name: Maryanne Minaya Date of : 1970 Sex: Female Patient plans are for toe amputation today. In to speak with patient to follow up on discharge plans. Patient reports plans to go to friend in [place] has fallen through and she is not interested in her significant other's mother's home. Patient wanted to discuss this in private without significantother. Patient educated to options for IV antibiotics such as home health and ECF if she cannot come into [facility] daily. Patient requesting ECF. Patient educated to [facility] pre authorization that would be needed. Patient agreeable and requesting [facility]. ECF list and Medicare ratings list for [facility]. Patient given lists and to notify [facility]S if she has choices made today. RN informed that patient will need updated PT/OT notes when precert will be submitted. This will likely happen Friday. [facility] following. Discharge Readiness Barriers to Discharge: No barriers [facility] Disposition D/C Disposition: Home Reason for Choice: Patient/Family prefernce * Destiny Harris MD - 04/02/2019 9:09 AM EDT Patient ID: Patient Name: Maryanne Minaya Admit Date: 03/27/2019 MR #: [id number] : 1970 Current location: [facility] Physicians: Glenroy Queen MD (Family); Clarice Geronimo DPM (Referring) Reason for consult: Type 2 diabetes out of control Assessment/Plan: Dx: Type 2 diabetes, under poor control Currently taking: No oral hypoglycemic medications Humalog insulin: SS units at breakfast; SS units at lunch; SS units at supper Levemir insulin: 50 units at breakfast; 50 units at bedtime Current Hemoglobin A1C= Lab Results Component Value Date HGBA1C 14.3 (H) 03/28/2019 NOTES: Patient admitted 03/27 with diabetic foot wound on right great toe. Patient has been under the care of podiatry and ID. Patient's A1c 14.3% as an outpatient. Reports taking levemir 50 BID with SS humalog. This regimen was continued until yesterday when she was started on 12 humalog TID in addition to 50 lantus BID. 04/02 BG reviewed. BG well-controlled in hospital. She is n.p.o. today for scheduled surgery. She reports that she was not taking care of herself prior to her admission. She plans to start taking better care of her diabetes after discharge. Blood Glucoses: 03/29: 270---231---298---309 03/30: 216---___---281---339 03/31: 283---177---177---136---205 04/01 115---127---154---129 04/02 97 Plan: 1. Rx changes: none Humalog insulin: 12 units at breakfast; 12 units at lunch; 12 units at supper Lantus insulin: 50 units at breakfast; 50 units at bedtime 04/02 Reduce Lantus to 40 units BID and continue pre-meal Humalog 12 units TID. Hold scheduled insulin today while NPO. Change IV to D5NS at 100 cc/hr. Patient is concerned about possible DVT. Nursing will relay concern to hospitalist. 2. Education: Reviewed ABCs of diabetes management (respective goals in parentheses): A1C (7.0-8.0), blood pressure (<130/80), and cholesterol (LDL <100). Referral to Diabetes Education Referral to Nutrition therapy Subjective: Interval HPI: 04/02 she denies any chest pain, shortness of breath, abdominal discomfort. She is n.p.o. for surgery. She complains of right ankle and calf pain, as well as some swelling in her right lower leg. She is concerned that she could have a DVT. Brief HPI: Ms. Minaya is a 48-year-old female with a past history of hypertension, hyperlipidemia,type 2 diabetes mellitus and fibromyalgia. Patient presented to [facility] on 03/27/2019 with complaints of right great toe wound. Patient reports she has not seen a seat pack inspector in several months this ulceration appeared approximately 2 months ago. Patient was admitted for furtherevaluation and treatment podiatry care and infectious disease management. Patient's blood glucose levels since admission have been elevated between 177-339 mg/dL. She reports blurred vision, no double vision. She reports pain in her foot. She does report numbness and tingling in her feet as well. She reports no recent weight gain. She has lost approximately 15 pounds she thinks. Patient has had diabetes for 20 years. Patient is reportedly taking Levemir 50 units BID and sliding scale as needed . Patient has taken Insulin for 20 years. Currently the patient is receiving Lantus and humalog. Blood sugar levels since admission have been ranging from 177-339 mg/dL. Complications of diabetes include: Retinopathy: Negative Nephropathy: Positive Peripheral Neuropathy: Positive Autonomic Neuropathy: Negative Allergies: Allergies Allergen Reactions Azithromycin Hives Clindamycin Hives Erythromycin Hives Home Medications: Current Facility-Administered Medications Medication Dose Route Frequency Provider Last Rate Last Dose acetaminophen (TYLENOL) tablet 650 mg 650 mg Oral Q4H PRN Yaritza Cain MD 650 mg at 03/30/19 0607 atorvastatin (LIPITOR) tablet 80 mg 80 mg Oral Daily Yaritza Cain MD 80 mg at 04/02/19 0822 docusate sodium (COLACE) capsule 100 mg 100 mg Oral BID Maggy Kimbrough CNP 100 mg at 822 DULoxetine (CYMBALTA) DR capsule 60 mg 60 mg Oral Daily Yaritza Cain MD 60 mg at 04/01/192029 enoxaparin (LOVENOX) syringe 40 mg 40 mg Subcutaneous Daily Yaritza Cain MD Stopped at 04/02/19 0800 famotidine (PEPCID) tablet 20 mg 20 mg Oral BID Yaritza Cain MD 20 mg at 04/02/19 0822 hydroCHLOROthiazide (HYDRODIURIL) tablet 50 mg 50 mg Oral Daily Yaritza Cain MD 50 mg at 04/02/19 0822 HYDROcodone-acetaminophen (NORCO) 5-325 mg per tablet 1 tablet 1 tablet Oral Q4H PRN Yaritza Cain MD1 tablet at 04/02/19 0822 hydrOXYzine (ATARAX) tablet 100 mg 100 mg Oral Nightly PRN Maggy Kimbrough CNP 100 mg at 04/01/19 2030 insulin glargine (LANTUS) injection 50 Units 50 Units Subcutaneous BID Dominick Santos MD Stopped at 04/01/19 2100 insulin lispro (HumaLOG) injection 0-15 Units 0-15 Units Subcutaneous at bedtime Dominick Santos MD 2 Units at 03/29/19 2214 insulin lispro (HumaLOG) injection 0-30 Units 0-30 Units Subcutaneous TID DIMA Harris MD16 Units at 04/01/19 1709 levothyroxine (SYNTHROID, LEVOTHROID) tablet 112 mcg 112 mcg Oral Daily Yaritza Cain MD 112 mcg at 04/02/19 0822 lisinopril (PRINIVIL,ZESTRIL) tablet 20 mg 20 mg Oral Daily Yaritza Cain MD 20 mg at 04/02/19 0822 naloxone (NARCAN) injection 0.1 mg 0.1 mg Intravenous PRN Yaritza Cain MD naloxone (NARCAN) injection 0.4 mg 0.4 mg Intravenous PRN Yairtza Cain MD piperacillin-tazobactam (ZOSYN) IVPB 3.375 g (premix) 3.375 g Intravenous Q8H Yaritza Cain MD 12.5 mL/hr at 04/02/19 0650 3.375 g at 04/02/19 0650 pregabalin (LYRICA) capsule 100 mg 100 mg Oral Daily Dominick Santos MD 100 mg at 04/01/192051 sodium chloride (PF) (NS) flush 5 mL 5 mL Intravenous PRN Isaac Duran PA-C And sodium chloride 0.9% (NS) 0-150 mL/hr Intravenous PRN Isaac Duran PA-C sodium chloride 0.9% (NS) 100 mL/hr Intravenous Continuous Yaritza Cain MD 100 mL/hr at 04/01/19 1531 100 mL/hr at 04/01/19 1531 traZODone (DESYREL) tablet 25 mg 25 mg Oral Nightly Yaritza Cain MD 25 mg at 04/01/19 2030 vancomycin (VANCOCIN) 1750 mg in sodium chloride 0.9% (NS) 500 mL IVPB 1,750 mg Intravenous Q12H Ryan Crowley Jr. [facility],PharmD Stopped at 04/02/19 0245 vancomycin per pharmacy 1 each 1 each Intravenous as indicated by pharmacokinetics Yaritza Cain MD Current Medications: atorvastatin 80 mg Oral Daily docusate sodium 100 mg Oral BID DULoxetine 60 mg Oral Daily enoxaparin (LOVENOX) injection 40 mg Subcutaneous Daily famotidine 20 mg Oral BID hydroCHLOROthiazide 50 mg Oral Daily insulin glargine 50 Units Subcutaneous BID lispro insulin 0-15 Units Subcutaneous at bedtime insulin lispro 0-30 Units Subcutaneous TID AC levothyroxine 112 mcg Oral Daily lisinopril 20 mg Oral Daily piperacillin-tazobactam (ZOSYN) extended infusion 3.375 g Intravenous Q8H pregabalin 100 mg Oral Daily traZODone 25 mg Oral Nightly vancomycin 1,750 mg Intravenous Q12H vancomycin per pharmacy 1 each Intravenous as indicated by pharmacokinetics acetaminophen, HYDROcodone-acetaminophen, hydrOXYzine, nalOXone, naloxone, [COMPLETED] Insert peripheral IV AND Saline lock IV AND sodium chloride (PF) AND sodium chloride 0.9 % Review of Systems: Review of Systems Constitutional: Positive for fatigue and unexpected weight change (weight loss). Eyes: Negative for visual disturbance. Respiratory: Negative for cough and shortness of breath. Cardiovascular: Positive for leg swelling. Negative for chest pain. Gastrointestinal: Negative for abdominal pain, constipation, diarrhea, nausea and vomiting. Endocrine: Negative for polydipsia, polyphagia and polyuria. Genitourinary: Negative for frequency and urgency. Musculoskeletal: Positive for arthralgias. Skin: Positive for color change and wound. Neurological: Positive for weakness and numbness (and tingling). Negative for headaches. Psychiatric/Behavioral: Negative for agitation and sleep disturbance. The patient is not nervous/anxious. History: Past Medical History: Diagnosis Date Acid reflux Diabetes mellitus (HCC) Diabetes mellitus, type 2 (HCC) Disease of thyroid gland hypothyroidism Fibromyalgia Hyperlipidemia Past Surgical History: Procedure Laterality Date APPENDECTOMY TONSILLECTOMY TUBAL LIGATION Family History Problem Relation Age of Onset Thyroid disease Mother Diabetes Maternal Aunt Diabetes Maternal Uncle Cancer Maternal Grandfather Heart disease Paternal Grandmother Social History Tobacco Use Smoking status: Current Every Day Smoker Packs/day: 0.25 Years: 30.00 Pack years: 7.50 Types: Cigarettes Smokeless tobacco: Never Used Substance Use Topics Alcohol use: Never Frequency: Never Drug use: Never The following portions of the patient's history were reviewed and updated as appropriate: allergies, current medications, past family history, past medical history, past social history, past surgicalhistory and problem list. Objective: BP 112/78 Pulse 87 Temp 98 F (36.7 C) (Oral) Resp 16 Ht 5' 5 Wt 93 kg (205 lb 0.4 oz) SpO2 95% BMI 34.12 kg/m Wt Readings from Last 3 Encounters: 03/28/19 93 kg (205 lb 0.4 oz) 03/28/19 93 kg (205 lb 0.4 oz) 06/11/19 96.6 kg (213 lb) Physical Exam: Physical Exam Constitutional: She is oriented to person, place, and time. She appears well- developed and well-nourished. HENT: Head: Normocephalic and atraumatic. Eyes: Pupils are equal, round, and reactive to light. Conjunctivae are normal. Neck: Normal range of motion. Neck supple. No thyromegaly present. Cardiovascular: Normal rate, regular rhythm, normal heart sounds and intact distal pulses. Exam reveals no friction rub. No murmur heard. Pulmonary/Chest: Effort normal and breath sounds normal. No respiratory distress. She has no wheezes. Abdominal: Soft. Bowel sounds are normal. She exhibits no distension. Musculoskeletal: Normal range of motion. She exhibits no edema. Right ankle and calf tender to palp Neurological: She is alert and oriented to person, place, and time. Skin: Skin is warm and dry. Dressing intact to RLE. Psychiatric: She has a normal mood and affect. Her behavior is normal. Judgment and thought contentnormal. Laboratory Review: BP 112/78 Pulse 87 Temp 98 F (36.7 C) (Oral) Resp 16 Ht 5' 5 Wt 93 kg (205 lb 0.4 oz) SpO2 95% BMI 34.12 kg/m Lab Results Component Value Date HGBA1C 14.3 (H) 03/28/2019 Glucose (mg/dL) Date Value 04/01/2019 159 (H) Creatinine (mg/dL) Date Value 04/01/2019 0.44 No results found for: CHOL, TRIG, HDL, LDLCALC, LDL No results found for: TSH No results found for: FREET4 Lab Results Component Value Date WBC 7.72 04/01/2019 HGB 11.0 (L) 04/01/2019 HCT 35.2 (L) 04/01/2019 MCV 88.4 04/01/2019 PLT 268 04/01/2019 This SmartLink has not been configured with any valid records. This SmartLink has not been configured with any valid records. Laboratory and Additional Data Reviewed: Laboratory 04/02/19 9:09 AM Medications 04/02/19 9:09 AM Transcriptions, Radiology 04/02/19 9:09 AM Thank you for this consultation, we will continue to follow this patient with you. Destiny Harris MD * David Roberts Thalia - 04/02/2019 8:41 AM EDT Nutrition Care Follow Up Monitoring and Evaluation: PO intake was 75 or greater at most meals Nutrition Diagnosis: Increased energy expenditure related to toe ulcer as evidenced by toe amp. Not Resolved Nutrition Intervention: Continue Meal and Snacks Nutrition Prescription: Diet: CHO Oral nutrition supplement: duncan, L/D Tube Feeding: n/a Nutrition Goals: PO intake > 80% most meals Start Date:04/02/2019 Expected End Date:04/08/2019 Nutrition Education: follow up as needed Educated on: prior admits Assessment: Pertinent clinical information: uncontrolled glucose Current weight: 93 kg (205 lb 0.4 oz) Body mass index is 34.12 kg/m . Weight: 205# Recent intake: 75-100%. Current intake Likely meets estimated needs. Patient/family comments: good appetite, non compliant to dietary restrictions Difficulty Chewing/Swallowing: No Skin Integrity: Surgical incision GI Function: WNL Physical Appearance: no change from initial assessment Labs: Recent Labs 04/01/19 0551 04/01/19 0553 NA -- 142 K -- 3.4* BICARB -- 28 CL -- 109* GLUCOSE -- 159* BUN -- 6* CREATININE -- 0.44 MG 1.9 -- Scheduled Meds: atorvastatin 80 mg Oral Daily docusate sodium 100 mg Oral BID DULoxetine 60 mg Oral Daily enoxaparin (LOVENOX) injection 40 mg Subcutaneous Daily famotidine 20 mg Oral BID hydroCHLOROthiazide 50 mg Oral Daily insulin glargine 50 Units Subcutaneous BID lispro insulin 0-15 Units Subcutaneous at bedtime insulin lispro 0-30 Units Subcutaneous TID AC levothyroxine 112 mcg Oral Daily lisinopril 20 mg Oral Daily piperacillin-tazobactam (ZOSYN) extended infusion 3.375 g Intravenous Q8H pregabalin 100 mg Oral Daily traZODone 25 mg Oral Nightly vancomycin 1,750 mg Intravenous Q12H vancomycin per pharmacy 1 each Intravenous as indicated by pharmacokinetics Continuous Infusions: sodium chloride 0.9 % sodium chloride 0.9 % 100 mL/hr (04/01/19 1531) Estimated Energy Needs Total Energy Estimated Needs: 1700@ 25 kcal/kg abw Total Protein Estimated Needs: 82 gm@ 1.2 gm/kg abw Will monitor and follow as needed David Roberts DTR * Zeferino Geronimo DPM - 04/01/2019 2:08 PM EDT Podiatry Inpatient Follow-up 04/01/2019 Zeferino Geronimo DPM [facility] Patient: Maryanne Minaya Date of : 1970 (48 y.o.) PCP: Glenroy Queen MD ASSESSMENT/PLAN: Maryanne Minaya 48 y.o. female with history of 1. Diabetes mellitus with peripheral neuropathy, (hemoglobin A1c 14.3) 2. Fibromyalgia 3. 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 Patient was given opportunity to ask questions. Patient elects to have the following treatment as follows: 1. Patient to have right great toe amputation tomorrow the level of the metatarsal phalangeal joint. Surgery is scheduled for 1 PM. 2. Informed consent process was completed today with CHUCK Barnes as a witness. Patient did also consent to blood and blood products. 3. I discussed with CHUCK Barnes I will defer patient's glycemic management during her n.p.o. state beginning at midnight tonight to endocrinology given her severely uncontrolled diabetes with hemoglobin A1c 14.3 and the fact that the case will begin later in the day at 1 PM. CHUCK Barnes will reach out to endocrinology today for orders. I appreciate endocrinology's involvement. 4. New dressing applied to patient's right foot by nursing. 5. Podiatry will follow. SUBJECTIVE: History Since Last Visit: Patient is a 48 y.o. female consulted to the Podiatry Service for right hallux ulceration.Patient states that the ulcer began approximately 2 months ago. She was seeing a seat pack inspector in [place] where she was residing, has now moved to the area due to a new boyfriend. 2 weeks ago she was in the emergency room with worsening appearance of the ulceration. She was placed on antibiotics and followed up with a seat pack inspector locally. She lost her antibiotics and never followed up. Over the past few days has had worsening of her right toe swelling pain and drainage. She began feeling quite ill yesterday with fever chills and nausea. Temperature was 102 on admission with associated nausea and vomiting. Patient had MRI completed today which showed osteomyelitis to the distal and proximal phalanx of the right great toe with a septic hallux interphalangeal joint. Patient has elected for amputation of the right great toe tomorrow. She has no new complaints today. Review of Systems: Constitutional:No fever, no weight loss CV:No chest pain. No ankle swelling Resp:No dyspnea. No wheezing Heme/lymphatic:No apparent lymphadenopathy Allergic/Immunologic:No hives Psych:No unusual mood swings All other systems reviewed and negative other than HPI OBJECTIVE: Physical Examination: BP 118/79 Pulse 68 Temp 97.3 F (36.3 C) (Oral) Resp 14 Ht 5' 5 Wt 93 kg (205 lb 0.4 oz) SpO2 97% BMI 34.12 kg/m Podiatric Exam Vascular: Peripheral pulses are palpable at 2 out of 4 for the right dorsalis pedis pulse, 2 out of4 for the left dorsalis pedis pulse, 2 out of 4 the right posterior tibial pulse, 2 out of 4 for the left posterior tibial pulse. CFT is less than 3 seconds bilaterally. Skin temperature is warm to warm proximal to distal on right. Lower extremity edema non-pitting is observed to the right lower extremities. No increase in warmth to calf, no proximal streaking or lymphangitis. Neurological: Epicritic sensation is grossly absent bilateral via light touch. Babinski test is plantigrade bilaterally. Achilles reflex is present bilateral. Patient is able to follow 2-step commands. No gross motor deficit appreciated at this time bilateral lower extremities. Dermatologic: Integument is intact bilateral lower extremity with the exception of wound noted to right 1st toe. Wound measures 1 cm x 1 cm x 1 cm. Wound base is fibrotic. No purulent drainage to thewound to the right hallux is observed. Toenails 1 through 5 are thickened, elongated, and dystrophic with pain on palpation. Webspaces 1-4 bilaterally are clean, dry, and intact. Musculoskeletal: Range of motion of the lower extremity at the ankle is diminished range of motion.Muscle strength is 5/5 for all muscle groups . Pain is present on palpation to 1 PIP joint severe pain on the right. Right calf pain. Laboratory and Additional Data Reviewed: Reviewed 04/01/19 2:08 PM: Laboratory, Microbiology and Transcriptions * Mariano Kirkland MD - 04/01/2019 1:18 PM EDT Patient Name: Maryanne Minaya Admit Date: [id number] MR #: [id number] : 1970 Physicians: Glenroy Queen MD (Family); Dee Marx DO (Referring) Assessment: Patient with 1. Possible osteomyelitis of the right big toe 2. Chronic ulceration of the right big toe 3. Cellulitis of the right foot. 4. Fever 5. Uncontrolled diabetes Plan. Continue patient on current therapy Patient currently on vancomycin intravenously Have Vanco trough level of 15-20 maintained Reviewed wound culture, and blood culture Endocrinology evaluation recommended Follow-up ESR, C-reactive protein, We will follow-up labs and blood culture. Podiatric, still scheduling for surgery for amputation We will continue patient on IV antibiotics on DC. Subjective: No new symptoms, no fever, no chills, still with some foot pain Exam: PACU Vitals 04/01/19 0741 BP: 118/79 Pulse: 68 Resp: 14 Temp: 97.3 F (36.3 C) SpO2: 97% Allergies: Azithromycin; Clindamycin; and Erythromycin Current Facility-Administered Medications: acetaminophen (TYLENOL) tablet 650 mg, 650 mg, Oral, Q4H PRN, Yaritza Cain MD, 650 mg at 03/30/19 0607 atorvastatin (LIPITOR) tablet 80 mg, 80 mg, Oral, Daily, Yaritza Cain MD, 80 mg at 04/01/19 0835 docusate sodium (COLACE) capsule 100 mg, 100 mg, Oral, BID, Maggy Kimbrough CNP, 100 mg at 04/01/19 0834 DULoxetine (CYMBALTA) DR capsule 60 mg, 60 mg, Oral, Daily, Yaritza Cain MD, 60 mg at 03/31/19 2034 enoxaparin (LOVENOX) syringe 40 mg, 40 mg, Subcutaneous, Daily, Yaritza Cain MD, 40 mg at 04/01/19 0835 famotidine (PEPCID) tablet 20 mg, 20 mg, Oral, BID, Yaritza Cain MD, 20 mg at 04/01/19 0834 hydroCHLOROthiazide (HYDRODIURIL) tablet 50 mg, 50 mg, Oral, Daily, Yaritza Cain MD, 50 mg at 04/01/19 0834 HYDROcodone-acetaminophen (NORCO) 5-325 mg per tablet 1 tablet, 1 tablet, Oral, Q4H PRN, Yaritza Cain MD, 1 tablet at 04/01/19 1224 hydrOXYzine (ATARAX) tablet 100 mg, 100 mg, Oral, Nightly PRN, Maggy Kimbrough CNP, 100 mg at 03/29/19 1851 insulin glargine (LANTUS) injection 50 Units, 50 Units, Subcutaneous, BID, Dominick Santos MD, 50 Units at 04/01/19 0835 insulin lispro (HumaLOG) injection 0-15 Units, 0-15 Units, Subcutaneous, at bedtime, Dominick Santos MD, 2 Units at 03/29/19 2214 insulin lispro (HumaLOG) injection 0-30 Units, 0-30 Units, Subcutaneous, TID AC, Destiny Harris MD, 12 Units at 04/01/19 0839 levothyroxine (SYNTHROID, LEVOTHROID) tablet 112 mcg, 112 mcg, Oral, Daily, Yaritza Cain MD, 112 mcgat 04/01/19 0834 lisinopril (PRINIVIL,ZESTRIL) tablet 20 mg, 20 mg, Oral, Daily, Yaritza Cain MD, 20 mg at 04/01/19 0834 naloxone (NARCAN) injection 0.1 mg, 0.1 mg, Intravenous, PRN, Yaritza Cain MD naloxone (NARCAN) injection 0.4 mg, 0.4 mg, Intravenous, PRN, Yaritza Cain MD piperacillin-tazobactam (ZOSYN) IVPB 3.375 g (premix), 3.375 g, Intravenous, Q8H, Yaritza Cain MD, Last Rate: 12.5 mL/hr at 04/01/19558, 3.375 g at 04/01/19558 pregabalin (LYRICA) capsule 100 mg, 100 mg, Oral, Daily, Dominick Santos MD, 100 mg at 03/31/192032 [COMPLETED] Insert peripheral IV, , , Once AND Saline lock IV, , , Once AND sodium chloride(PF) (NS) flush 5 mL, 5 mL, Intravenous, PRN AND sodium chloride 0.9% (NS), 0-150 mL/hr, Intravenous, PRN, Isaac Duran PA-C sodium chloride 0.9% (NS), 100 mL/hr, Intravenous, Continuous, Yaritza Cain MD, Last Rate: 100 mL/hrat 03/31/192057, 100 mL/hr at 03/31/192057 traZODone (DESYREL) tablet 25 mg, 25 mg, Oral, Nightly, Yaritza Cain MD, 25 mg at 03/31/192032 vancomycin (VANCOCIN) 1750 mg in sodium chloride 0.9% (NS) 500 mL IVPB, 1,750 mg, Intravenous, Q12H, Ryan Crowley Jr., [facility],PharmD, Last Rate: 250 mL/hr at 04/01/19 1200, 1,750 mg at 04/01/19 1200 vancomycin per pharmacy 1 each, 1 each, Intravenous, as indicated by pharmacokinetics, Yaritza Cain MD PMH/PSH/SH/ reviewed, no change : Review of Systems: All systems were reviewed no change: Medications Reviewed. Chart Reviewed. Exam Findings: Neck: Supple, no rigidity ENT: No oral candidiasis Chest: Lungs clear bilaterally, no wheezing, or rales CVS: Normal S1 & S2+, Normal Rhythm Abdomen: Normal symmetry, Soft/non-tender. Benign, BS+ Extremities: No Deformities or Edema, right big toe with ulceration, and erythema. Tender to palpation, dressed currently Skin: Intact & No Rashes, or excoriations Musculoskeletal: No joint swelling, non tender WORKFORCE CONSULTANT: Awake, and Ox3, with depressive look Wound: Big toe with ulceration, and tender to palpation. Dorsal aspect with erythema but stable. Carrillo Catheter: None IV Access: Yes I reviewed Medications. I reviewed Labs. Laboratory and Additional Data Reviewed: Laboratory 04/01/19 1:18 PM Microbiology 04/01/19 1:18 PM Radiology 04/01/19 1:18 PM Ultrasound duplex venous leg right Final Result MR Foot Right Without Contrast Final Result 1. There is an ulcer along the plantar aspect of the 1st toe medially extending deep into the soft tissues nearly to the plantar cortex of the base of the distal phalanx. There is associated [id number] subcutaneous edema and soft tissue swelling along the plantar aspect of the 1st toe and moderate subcutaneous edema and soft tissue swelling in the midfoot to forefoot suspicious for cellulitis. Correlation for the clinical extent of cellulitis would be helpful. 2. MRI findings are consistent with osteomyelitis in the distal and proximal phalanges of the 1st toe with increased STIR and low T1 signal. There is also suspected joint infection and septic arthritis involving the IP joint of the 1st toe. 3. No focal abscess. [employer] Workstation ID: [id number] XR Foot Right 3+ Views (Standard) Final Result 1. Subtle osteolysis of the lateral aspect of the proximal phalanx of 1st digit with soft tissue defect along the plantar surface of the 1st digit concerning for infection of the soft tissue as well as probably osteomyelitis. Further evaluation with 3-phase bone scan or MRI could be performed. 2. No definite fractures or dislocations. [facility] Workstation ID: [id number] Medications 04/01/19 1:18 PM Lab Results Component Value Date WBC 7.72 04/01/2019 HGB 11.0 (L) 04/01/2019 HCT 35.2 (L) 04/01/2019 MCV 88.4 04/01/2019 PLT 268 04/01/2019 Lab Results Component Value Date GLUCOSE 159 (H) 04/01/2019 CALCIUM 7.7 (L) 03/28/2019 NA 142 04/01/2019 K 3.4 (L) 04/01/2019 CL 109 (H) 04/01/2019 BUN 6 (L) 04/01/2019 CREATININE 0.44 04/01/2019 Problem List Items Addressed This Visit None Visit Diagnoses Diabetic ulcer of toe of right foot associated with type 2 diabetes mellitus, with bone involvementwithout evidence of necrosis (HCC) - Primary Relevant Medications insulin glargine (LANTUS U-100 INSULIN) 100 unit/mL injection insulin lispro (HumaLOG U-100 Insulin) 100 unit/mL injection insulin lispro (HumaLOG) injection 0-15 Units insulin glargine (LANTUS) injection 50 Units insulin lispro (HumaLOG) injection 0-30 Units I discussed my management plans with Patient/and or Family member, and also discussed antibiotics therapy including side effects with Patient/and or Family member. Medical Decision Making: High * Dominick Santos MD - 04/01/2019 10:18 AM EDT [facility] Medicine Inpatient Follow-up 04/01/2019 Dominick Santos MD [facility] Patient: Maryanne Minaya Date of : 1970 (48 y.o.) PCP: Glenroy Queen MD ASSESSMENT/PLAN: Maryanne Minaya 48 y.o. female presented with complains of foot infection Active Problems: Diabetic foot (HCC) Diabetes mellitus type 2, uncontrolled, with complications (HCC) PLAN: On empiric vanco and zosyn, ID following E Cultures are NGTD Plan for amputation 04/02 Afebrile Improved glycemic control, endo consulted SUBJECTIVE: Denies complaints. No shortness of breath. No fever All other systems reviewed and negative other than noted above. OBJECTIVE: Physical Examination: BP 118/79 Pulse 68 Temp 97.3 F (36.3 C) (Oral) Resp 14 Ht 5' 5 Wt 93 kg (205 lb 0.4 oz) SpO2 97% BMI 34.12 kg/m General Appearance: Alert, well appearing, and in no acute distress. HEENT: Head - Normocephalic, atraumatic. Eyes - BRANDON bilaterally and EOMI. Ears - normal external appearance, hearing intact. Nose - normal, no erythema. Throat - mucous membranes moist, pharynx without lesions. Neck: Supple, trachea midline. Cardiovascular: S1, S2 normal. No murmurs, rubs, clicks or gallops appreciated. No pedal edema. Respiratory: Lungs clear to auscultation, no wheezes, rales or rhonchi heard. Abdomen: Soft, non-tender, normal bowel sounds, non-distended, no masses or organomegaly appreciated. Neurological: Grossly normal motor and sensory exam. No focal deficits. Musculoskeletal: No joint tenderness, deformity or swelling. Skin: rt foot in dressing Psych: Alert, oriented x 3. Normal mood and affect. CURRENT MEDICATIONS: atorvastatin 80 mg Oral Daily docusate sodium 100 mg Oral BID DULoxetine 60 mg Oral Daily enoxaparin (LOVENOX) injection 40 mg Subcutaneous Daily famotidine 20 mg Oral BID hydroCHLOROthiazide 50 mg Oral Daily insulin glargine 50 Units Subcutaneous BID lispro insulin 0-15 Units Subcutaneous at bedtime insulin lispro 0-30 Units Subcutaneous TID AC levothyroxine 112 mcg Oral Daily lisinopril 20 mg Oral Daily piperacillin-tazobactam (ZOSYN) extended infusion 3.375 g Intravenous Q8H pregabalin 100 mg Oral Daily traZODone 25 mg Oral Nightly vancomycin 1,750 mg Intravenous Q12H vancomycin per pharmacy 1 each Intravenous as indicated by pharmacokinetics Results/Medications Reviewed 04/01/19 10:18 AM: Results from last 7 days Lab Units 04/01/19 0553 03/31/19 0437 03/30/19 0630 03/28/19 0505 03/28/19 0027 SODIUM mmol/L 142 139 138 139 136 POTASSIUM mmol/L 3.4* 3.6 3.6 3.3* 3.4* CHLORIDE mmol/L 109* 105 108 106 102 BUN mg/dL 6* 10 10 11 10 CREATININE mg/dL 0.44 0.54 0.55 0.58 0.75 GLUCOSE mg/dL 159* 277* 231* 239* 213* CALCIUM mg/dL -- -- -- 7.7* 8.8 Results from last 7 days Lab Units 04/01/19 0551 03/31/19 0437 03/30/19 0629 WBC K/mcL 7.72 7.95 8.25 HGB g/dL 11.0* 12.0 11.0* HCT % 35.2* 37.9 34.0* PLT K/mcL 268 276 224 Results from last 7 days Lab Units 03/28/19 0426 03/28/19 0027 TROPONIN I ng/L <15 <15 Results from last 7 days Lab Units 03/28/19 0027 ALK PHOS U/L 117 BILIRUBIN TOTAL mg/dL 0.8 BILIRUBIN DIRECT mg/dL 0.2 TOTAL PROTEIN g/dL 7.3 ALTR U/L 12* AST U/L 11 CULTURES: Reviewed 10:18 AM IMAGING: Reviewed 10:18 AM * Mariano Kirkland MD - 03/31/2019 7:36 PM EDT Patient Name: Maryanne Minaya Admit Date: [id number] MR #: [id number] : 1970 Physicians: Glenroy Queen MD (Family); Dee Marx DO (Referring) Assessment: Patient with 1. Possible osteomyelitis of the right big toe 2. Chronic ulceration of the right big toe 3. Cellulitis of the right foot. 4. Fever 5. Uncontrolled diabetes Plan. Continue patient on current therapy Patient currently on vancomycin intravenously Have Vanco trough level of 15-20 maintained Reviewed wound culture, and blood culture Endocrinology evaluation recommended Follow-up ESR, C-reactive protein, We will follow-up labs and blood culture. Podiatric, scheduling for surgery tomorrow for amputation I discussed again with Dr. Santos on management plan We will continue patient on IV antibiotics on DC. I discussed with Dr Geronimo on management plans. Subjective: No new symptoms, no fever, no chills, still with some foot pain Exam: PACU Vitals 03/31/19 1623 BP: 114/75 Pulse: 67 Resp: 16 Temp: 98.2 F (36.8 C) SpO2: 98% Allergies: Azithromycin; Clindamycin; and Erythromycin Current Facility-Administered Medications: acetaminophen (TYLENOL) tablet 650 mg, 650 mg, Oral, Q4H PRN, Yaritza Cain MD, 650 mg at 03/30/19 0607 atorvastatin (LIPITOR) tablet 80 mg, 80 mg, Oral, Daily, Yaritza Cain MD, 80 mg at 03/31/19925 DULoxetine (CYMBALTA) DR capsule 60 mg, 60 mg, Oral, Daily, Yaritza Cain MD, 60 mg at 03/30/191853 enoxaparin (LOVENOX) syringe 40 mg, 40 mg, Subcutaneous, Daily, Yaritza Cain MD, 40 mg at 03/31/19925 famotidine (PEPCID) tablet 20 mg, 20 mg, Oral, BID, Yaritza Cain MD, 20 mg at 03/31/19925 hydroCHLOROthiazide (HYDRODIURIL) tablet 50 mg, 50 mg, Oral, Daily, Yaritza Cain MD, 50 mg at 03/31/19925 HYDROcodone-acetaminophen (NORCO) 5-325 mg per tablet 1 tablet, 1 tablet, Oral, Q4H PRN, Yaritza Cain MD, 1 tablet at 03/31/191916 hydrOXYzine (ATARAX) tablet 100 mg, 100 mg, Oral, Nightly PRN, Maggy Kimbrough, [employer], 100 mg at 03/29/191850 insulin glargine (LANTUS) injection 50 Units, 50 Units, Subcutaneous, BID, Dominick Santos MD, 50 Units at 03/31/19924 insulin lispro (HumaLOG) injection 0-15 Units, 0-15 Units, Subcutaneous, at bedtime, Dominick Santos MD, 2 Units at 03/29/192213 insulin lispro (HumaLOG) injection 0-30 Units, 0-30 Units, Subcutaneous, TID AC, Destiny Harris MD levothyroxine (SYNTHROID, LEVOTHROID) tablet 112 mcg, 112 mcg, Oral, Daily, Yaritza Cain MD, 112 mcgat 03/31/19925 lisinopril (PRINIVIL,ZESTRIL) tablet 20 mg, 20 mg, Oral, Daily, Yaritza Cain MD, 20 mg at 03/31/19925 naloxone (NARCAN) injection 0.1 mg, 0.1 mg, Intravenous, PRN, Yaritza Cain MD naloxone (NARCAN) injection 0.4 mg, 0.4 mg, Intravenous, PRN, Yaritza Cain MD piperacillin-tazobactam (ZOSYN) IVPB 3.375 g (premix), 3.375 g, Intravenous, Q8H, Yaritza Cain MD, Last Rate: 12.5 mL/hr at 03/31/19 1540, 3.375 g at 03/31/19 1540 pregabalin (LYRICA) capsule 100 mg, 100 mg, Oral, Daily, Dominick Santos MD, 100 mg at 03/30/19 185 [COMPLETED] Insert peripheral IV, , , Once AND Saline lock IV, , , Once AND sodium chloride(PF) (NS) flush 5 mL, 5 mL, Intravenous, PRN AND sodium chloride 0.9% (NS), 0-150 mL/hr, Intravenous, PRN, Isaac Duran PA-C sodium chloride 0.9% (NS), 100 mL/hr, Intravenous, Continuous, Yaritza Cain MD, Last Rate: 100 mL/hrat 03/31/19 0700, 100 mL/hr at 03/31/19 0700 traZODone (DESYREL) tablet 25 mg, 25 mg, Oral, Nightly, Yaritza Cain MD, 25 mg at 03/30/191854 vancomycin (VANCOCIN) 1750 mg in sodium chloride 0.9% (NS) 500 mL IVPB, 1,750 mg, Intravenous, Q12H, Ryan Crowley Jr., [facility],PharmD, Last Rate: 250 mL/hr at 03/31/19 1255, 1,750 mg at 03/31/19 1255 vancomycin per pharmacy 1 each, 1 each, Intravenous, as indicated by pharmacokinetics, Yaritza Cain MD PMH/PSH/SH/ reviewed, no change : Review of Systems: All systems were reviewed no change: Medications Reviewed. Chart Reviewed. Exam Findings: Neck: Supple, no rigidity ENT: No oral candidiasis Chest: Lungs clear bilaterally, no wheezing, or rales CVS: Normal S1 & S2+, Normal Rhythm Abdomen: Normal symmetry, Soft/non-tender. Benign, BS+ Extremities: No Deformities or Edema, right big toe with ulceration, and erythema. Tender to palpation, dressed currently Skin: Intact & No Rashes, or excoriations Musculoskeletal: No joint swelling, non tender WORKFORCE CONSULTANT: Awake, and Ox3, with depressive look Wound: Big toe with ulceration, and tender to palpation. Dorsal aspect with erythema but stable. Carrillo Catheter: None IV Access: Yes I reviewed Medications. I reviewed Labs. Laboratory and Additional Data Reviewed: Laboratory 03/31/19 7:36 PM Microbiology 03/31/19 7:36 PM Radiology 03/31/19 7:36 PM Ultrasound duplex venous leg right Final Result MR Foot Right Without Contrast Final Result 1. There is an ulcer along the plantar aspect of the 1st toe medially extending deep into the soft tissues nearly to the plantar cortex of the base of the distal phalanx. There is associated [id number] subcutaneous edema and soft tissue swelling along the plantar aspect of the 1st toe and moderate subcutaneous edema and soft tissue swelling in the midfoot to forefoot suspicious for cellulitis. Correlation for the clinical extent of cellulitis would be helpful. 2. MRI findings are consistent with osteomyelitis in the distal and proximal phalanges of the 1st toe with increased STIR and low T1 signal. There is also suspected joint infection and septic arthritis involving the IP joint of the 1st toe. 3. No focal abscess. [employer] Workstation ID: [id number] XR Foot Right 3+ Views (Standard) Final Result 1. Subtle osteolysis of the lateral aspect of the proximal phalanx of 1st digit with soft tissue defect along the plantar surface of the 1st digit concerning for infection of the soft tissue as well as probably osteomyelitis. Further evaluation with 3-phase bone scan or MRI could be performed. 2. No definite fractures or dislocations. [facility] Workstation ID: [id number] Medications 03/31/19 7:36 PM Lab Results Component Value Date WBC 7.95 03/31/2019 HGB 12.0 03/31/2019 HCT 37.9 03/31/2019 MCV 88.6 03/31/2019 PLT 276 03/31/2019 Lab Results Component Value Date GLUCOSE 277 (H) 03/31/2019 CALCIUM 7.7 (L) 03/28/2019 NA 139 03/31/2019 K 3.6 03/31/2019 CL 105 03/31/2019 BUN 10 03/31/2019 CREATININE 0.54 03/31/2019 Problem List Items Addressed This Visit None Visit Diagnoses Diabetic ulcer of toe of right foot associated with type 2 diabetes mellitus, with bone involvementwithout evidence of necrosis (HCC) - Primary Relevant Medications insulin glargine (LANTUS U-100 INSULIN) 100 unit/mL injection insulin lispro (HumaLOG U-100 Insulin) 100 unit/mL injection insulin lispro (HumaLOG) injection 0-15 Units insulin glargine (LANTUS) injection 50 Units insulin lispro (HumaLOG) injection 0-30 Units I discussed my management plans with Patient/and or Family member, and also discussed antibiotics therapy including side effects with Patient/and or Family member. Medical Decision Making: High * Zeferino Geronimo DPM - 03/31/2019 7:21 PM EDT Podiatry Inpatient Follow-up 03/31/2019 Zeferino Geronimo DPM [facility] Patient: Maryanne Minaya Date of : 1970 (48 y.o.) PCP: Glenroy Queen MD ASSESSMENT/PLAN: Maryanne Minaya 48 y.o. female with history of 1. Diabetes mellitus with peripheral neuropathy, (hemoglobin A1c 14.3) 2. Fibromyalgia 3. 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 Patient was given opportunity to ask questions. Patient elects to have the following treatment as follows: 1. Amputation of the right great toe is planned for this coming Tuesday, April 02, 2019. 2. Appreciate endocrinology's consult. Podiatry would like to defer management of patient's diabetic medications prior to surgery given her recently highly uncontrolled diabetes. Surgery is planned for 1 PM on Tuesday, April 02, 2019. 3. Patient will be n.p.o. at midnight on . 4. Podiatry will see the patient tomorrow and consent for surgery. Continue current dressings to right foot SUBJECTIVE: History Since Last Visit: Patient is a 48 y.o. female consulted to the Podiatry Service for right hallux ulceration.Patient states that the ulcer began approximately 2 months ago. She was seeing a seat pack inspector in [place] where she was residing, has now moved to the area due to a new boyfriend. 2 weeks ago she was in the emergency room with worsening appearance of the ulceration. She was placed on antibiotics and followed up with a seat pack inspector locally. She lost her antibiotics and never followed up. Over the past few days has had worsening of her right toe swelling pain and drainage. She began feeling quite ill yesterday with fever chills and nausea. Temperature was 102 on admission with associated nausea and vomiting. Patient had MRI completed today which showed osteomyelitis to the distal and proximal phalanx of the right great toe with a septic hallux interphalangeal joint. I discussed amputation versus intravenous antibiotics yesterday with the patient. Patient wished to proceed with amputation. Endocrinologywas also consulted and did see the patient today. Pending Lab and Radiology Results Order Current Status Blood Culture #1 Preliminary result Blood Culture #2 Preliminary result Blood Culture Aerobic/Anaerobic Preliminary result Blood Culture Aerobic/Anaerobic Preliminary result Urine Aerobic Culture Preliminary result Interpretation of Testing: I personally reviewed the labs and agree with the interpretation(s). Review of Systems: Constitutional:No fever, no weight loss CV:No chest pain. No ankle swelling Resp:No dyspnea. No wheezing Heme/lymphatic:No apparent lymphadenopathy Allergic/Immunologic:No hives Psych:No unusual mood swings All other systems reviewed and negative other than HPI OBJECTIVE: Physical Examination: BP 114/75 (BP Location: Left arm, Patient Position: Lying) Pulse 67 Temp 98.2 F (36.8 C) (Oral) Resp 16 Ht 5' 5 Wt 93 kg (205 lb 0.4 oz) SpO2 98% BMI 34.12 kg/m Podiatric Exam Vascular: Peripheral pulses are palpable at 2 out of 4 for the right dorsalis pedis pulse, 2 out of4 for the left dorsalis pedis pulse, 2 out of 4 the right posterior tibial pulse, 2 out of 4 for the left posterior tibial pulse. CFT is less than 3 seconds bilaterally. Skin temperature is warm to warm proximal to distal on right. Lower extremity edema non-pitting is observed to the right lower extremities. No increase in warmth to calf, no proximal streaking or lymphangitis. Neurological: Epicritic sensation is grossly absent bilateral via light touch. Babinski test is plantigrade bilaterally. Achilles reflex is present bilateral. Patient is able to follow 2-step commands. No gross motor deficit appreciated at this time bilateral lower extremities. Dermatologic: Integument is intact bilateral lower extremity with the exception of wound noted to right 1st toe. Wound measures 1 cm x 1 cm x 1 cm. Wound base is fibrotic. No purulent drainage to thewound to the right hallux is observed. Toenails 1 through 5 are thickened, elongated, and dystrophic with pain on palpation. Webspaces 1-4 bilaterally are clean, dry, and intact. Musculoskeletal: Range of motion of the lower extremity at the ankle is diminished range of motion.Muscle strength is 5/5 for all muscle groups . Pain is present on palpation to 1 PIP joint severe pain on the right. Right calf pain. Laboratory and Additional Data Reviewed: Reviewed 03/31/19 7:21 PM: Laboratory, Microbiology and Transcriptions * Dominick Santos MD - 03/31/2019 2:12 PM EDT [facility] Medicine Inpatient Follow-up 03/31/2019 Dominick Santos MD [facility] Patient: Maryanne Minaya Date of : 1970 (48 y.o.) PCP: Glenroy Queen MD ASSESSMENT/PLAN: Maryanne Minaya 48 y.o. female presented with complains of foot infection Active Problems: Diabetic foot (HCC) Diabetes mellitus type 2, uncontrolled, with complications ([facility]) PLAN: MRI today showed osteomyelitis in the distal and proximal phalanges of the 1st toe with increased STIR and low T1 signal On empiric vanco and zosyn, ID following E Cultures are NGTd Plan for amputation 04/02 Afebrile Improved glycemic control, endo consulted SUBJECTIVE: Foot pain controlled with po norco All other systems reviewed and negative other than noted above. OBJECTIVE: Physical Examination: BP 110/60 (Patient Position: Sitting) Pulse 80 Temp 97.3 F (36.3 C) (Oral) Resp 16 Ht 5' 5 Wt 93 kg (205 lb 0.4 oz) SpO2 97% BMI 34.12 kg/m General Appearance: Alert, well appearing, and in no acute distress. HEENT: Head - Normocephalic, atraumatic. Eyes - BRANDON bilaterally and EOMI. Ears - normal external appearance, hearing intact. Nose - normal, no erythema. Throat - mucous membranes moist, pharynx without lesions. Neck: Supple, trachea midline. Cardiovascular: S1, S2 normal. No murmurs, rubs, clicks or gallops appreciated. No pedal edema. Respiratory: Lungs clear to auscultation, no wheezes, rales or rhonchi heard. Abdomen: Soft, non-tender, normal bowel sounds, non-distended, no masses or organomegaly appreciated. Neurological: Grossly normal motor and sensory exam. No focal deficits. Musculoskeletal: No joint tenderness, deformity or swelling. Skin: rt foot in dressing Psych: Alert, oriented x 3. Normal mood and affect. CURRENT MEDICATIONS: atorvastatin 80 mg Oral Daily DULoxetine 60 mg Oral Daily enoxaparin (LOVENOX) injection 40 mg Subcutaneous Daily famotidine 20 mg Oral BID hydroCHLOROthiazide 50 mg Oral Daily insulin glargine 50 Units Subcutaneous BID lispro insulin 0-15 Units Subcutaneous at bedtime insulin lispro 0-30 Units Subcutaneous TID AC levothyroxine 112 mcg Oral Daily lisinopril 20 mg Oral Daily piperacillin-tazobactam (ZOSYN) extended infusion 3.375 g Intravenous Q8H pregabalin 100 mg Oral Daily traZODone 25 mg Oral Nightly vancomycin 1,750 mg Intravenous Q12H vancomycin per pharmacy 1 each Intravenous as indicated by pharmacokinetics Results/Medications Reviewed 03/31/19 2:12 PM: Results from last 7 days Lab Units 03/31/19 0437 03/30/19 0630 03/28/19 0505 03/28/19 0027 SODIUM mmol/L 139 138 139 136 POTASSIUM mmol/L 3.6 3.6 3.3* 3.4* CHLORIDE mmol/L 105 108 106 102 BUN mg/dL 10 10 11 10 CREATININE mg/dL 0.54 0.55 0.58 0.75 GLUCOSE mg/dL 277* 231* 239* 213* CALCIUM mg/dL -- -- 7.7* 8.8 Results from last 7 days Lab Units 03/31/19 0437 03/30/19 0629 03/28/19 0506 WBC K/mcL 7.95 8.25 8.24 HGB g/dL 12.0 11.0* 11.9* HCT % 37.9 34.0* 36.4 PLT K/mcL 276 224 231 Results from last 7 days Lab Units 03/28/19 0426 03/28/19 0027 TROPONIN I ng/L <15 <15 Results from last 7 days Lab Units 03/28/19 0027 ALK PHOS U/L 117 BILIRUBIN TOTAL mg/dL 0.8 BILIRUBIN DIRECT mg/dL 0.2 TOTAL PROTEIN g/dL 7.3 ALTR U/L 12* AST U/L 11 CULTURES: Reviewed 2:12 PM IMAGING: Reviewed 2:12 PM * Alphonso Canada MSW LSW - 03/31/2019 9:34 AM EDT DISCHARGE PLAN PROGRESS NOTE Date: 03/31/2019 Time: 9:34 AM Patient Name: Maryanne Minaya Date of : 1970 Sex: Female Podiatry notes plans will are for this Tuesday, April 02, 2019 for great toe amputation. Recommend continuation of intravenous antibiotics in the interim. This social economist to follow Dr. Kirkland's plans for antibiotic Rx after procedure. 11:45- LANDSCAPE DRAFTER reports patient requests director social welfare. In to visit with patient, but patient requestsreturn when she does not have visitors to talk. Discharge Readiness Barriers to Discharge: No barriers [facility] Disposition D/C Disposition: Home Reason for Choice: Patient/Family prefernce * Campos Cabrera [facility],PharmD - 03/31/2019 12:02 AM EDT Pharmacy vancomycin note: S/O: Maryanne Minaya is a 48 y.o. female initiated on antimicrobial therapy for skin/soft tissue infection. Wt Readings from Last 1 Encounters: 03/28/19 93 kg (205 lb 0.4 oz) Current labs: WBC (K/mcL) Date Value 03/30/2019 8.25 Estimated Creatinine Clearance: 113.8 mL/min (by C-G formula based on SCr of 0.55 mg/dL). Micro: wound - few GPC Current vancomycin dose: 1.75 g IV q12h Vancomycin trough: 12/6 (drawn approximately 11.5 hours post-dose) A/P: Goal trough: 15-20. Continue with current regimen. There was a 17 hour gap between doses at one point. Check follow-up level in 2 days. Pharmacy will continue to follow. Campos Cabrera RPh,PharmD * Zeferino Geronimo DPM - 03/30/2019 7:38 PM EDT Podiatry Inpatient Follow-up 03/30/2019 Zeferino Geronimo DPM [facility] Patient: Maryanne Minaya Date of : 1970 (48 y.o.) PCP: Glenroy Queen MD ASSESSMENT/PLAN: Maryanne Minaya 48 y.o. female with history of 1. Diabetes mellitus with peripheral neuropathy, (hemoglobin A1c 14.3) 2. Fibromyalgia 3. 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 Patient was given opportunity to ask questions. Patient elects to have the following treatment as follows: 1. I discussed with the patient her options in light of the positive osteomyelitis based on MRI findings. Ultimately patient elected for right great toe amputation when given options for intravenous antibiotics versus amputation. 2. Due to the patient's uncontrolled diabetes with hemoglobin A1c of 14.3 consultation to endocrinology was placed. It was expressed to the patient that her glycemic control during the postoperative period is very important for wound healing. Patient relayed understanding. 3. Continue current dressings to right lower extremity. 4. I discussed with the patient surgical planning will be for this Tuesday, April 02, 2019 for right great toe amputation. Recommend continuation of intravenous antibiotics in the interim. SUBJECTIVE: History Since Last Visit: Patient is a 48 y.o. female consulted to the Podiatry Service for right hallux ulceration.Patient states that the ulcer began approximately 2 months ago. She was seeing a seat pack inspector in [place] where she was residing, has now moved to the area due to a new boyfriend. 2 weeks ago she was in the emergency room with worsening appearance of the ulceration. She was placed on antibiotics and followed up with a seat pack inspector locally. She lost her antibiotics and never followed up. Over the past few days has had worsening of her right toe swelling pain and drainage. She began feeling quite ill yesterday with fever chills and nausea. Temperature was 102 on admission with associated nausea and vomiting. Patient had MRI completed today. She is anxious to go over the results. She has no other complaints. Pending Lab and Radiology Results Order Current Status Ultrasound duplex venous leg right In process Urine Aerobic Culture In process Blood Culture #1 Preliminary result Blood Culture #2 Preliminary result Blood Culture Aerobic/Anaerobic Preliminary result Blood Culture Aerobic/Anaerobic Preliminary result Interpretation of Testing: I personally reviewed the labs and agree with the interpretation(s). Review of Systems: Constitutional:No fever, no weight loss CV:No chest pain. No ankle swelling Resp:No dyspnea. No wheezing Heme/lymphatic:No apparent lymphadenopathy Allergic/Immunologic:No hives Psych:No unusual mood swings All other systems reviewed and negative other than HPI OBJECTIVE: Physical Examination: BP 108/73 Pulse 71 Temp 97.7 F (36.5 C) (Oral) Resp 12 Ht 5' 5 Wt 93 kg (205 lb 0.4 oz) SpO2 98% BMI 34.12 kg/m Podiatric Exam Vascular: Peripheral pulses are palpable at 2 out of 4 for the right dorsalis pedis pulse, 2 out of4 for the left dorsalis pedis pulse, 2 out of 4 the right posterior tibial pulse, 2 out of 4 for the left posterior tibial pulse. CFT is less than 3 seconds bilaterally. Skin temperature is warm to warm proximal to distal on right. Lower extremity edema non-pitting is observed to the right lower extremities. No increase in warmth to calf, no proximal streaking or lymphangitis. Neurological: Epicritic sensation is grossly absent bilateral via light touch. Babinski test is plantigrade bilaterally. Achilles reflex is present bilateral. Patient is able to follow 2-step commands. No gross motor deficit appreciated at this time bilateral lower extremities. Dermatologic: Integument is intact bilateral lower extremity with the exception of wound noted to right 1st toe. Wound measures 1 cm x 1 cm x 1 cm. Wound base is fibrotic. Toenails 1 through 5 are thickened, elongated, and dystrophic with pain on palpation. Webspaces 1-4 bilaterally are clean, dry,and intact. Musculoskeletal: Range of motion of the lower extremity at the ankle is diminished range of motion.Muscle strength is 5/5 for all muscle groups . Pain is present on palpation to 1 PIP joint severe pain on the right. Right calf pain. Laboratory and Additional Data Reviewed: Reviewed 03/30/19 7:38 PM: Laboratory, Microbiology and Transcriptions * Dominick Santos MD - 03/30/2019 2:06 PM EDT [facility] Medicine Inpatient Follow-up 03/30/2019 Dominick Santos MD [facility] Patient: Maryanne Minaya Date of : 1970 (48 y.o.) PCP: Glenroy Queen MD ASSESSMENT/PLAN: Maryanne Minaya 48 y.o. female presented with complains of foot infection Active Problems: Diabetic foot (HCC) PLAN: MRI today showed osteomyelitis in the distal and proximal phalanges of the 1st toe with increased STIR and low T1 signal On empiric vanco and zosyn, ID following E Cultures are NGTd Will likely need amputation, awiat podiatry input Afebrile Improved glycemic control SUBJECTIVE: Foot pain controlled with po norco All other systems reviewed and negative other than noted above. OBJECTIVE: Physical Examination: BP 108/73 Pulse 71 Temp 97.7 F (36.5 C) (Oral) Resp 12 Ht 5' 5 Wt 93 kg (205 lb 0.4 oz) SpO2 98% BMI 34.12 kg/m General Appearance: Alert, well appearing, and in no acute distress. HEENT: Head - Normocephalic, atraumatic. Eyes - BRANDON bilaterally and EOMI. Ears - normal external appearance, hearing intact. Nose - normal, no erythema. Throat - mucous membranes moist, pharynx without lesions. Neck: Supple, trachea midline. Cardiovascular: S1, S2 normal. No murmurs, rubs, clicks or gallops appreciated. No pedal edema. Respiratory: Lungs clear to auscultation, no wheezes, rales or rhonchi heard. Abdomen: Soft, non-tender, normal bowel sounds, non-distended, no masses or organomegaly appreciated. Neurological: Grossly normal motor and sensory exam. No focal deficits. Musculoskeletal: No joint tenderness, deformity or swelling. Skin: rt foot in dressing Psych: Alert, oriented x 3. Normal mood and affect. CURRENT MEDICATIONS: atorvastatin 80 mg Oral Daily DULoxetine 60 mg Oral Daily enoxaparin (LOVENOX) injection 40 mg Subcutaneous Daily famotidine 20 mg Oral BID hydroCHLOROthiazide 50 mg Oral Daily insulin glargine 50 Units Subcutaneous BID lispro insulin 0-15 Units Subcutaneous at bedtime insulin lispro 0-30 Units Subcutaneous TID AC levothyroxine 112 mcg Oral Daily lisinopril 20 mg Oral Daily piperacillin-tazobactam (ZOSYN) extended infusion 3.375 g Intravenous Q8H pregabalin 100 mg Oral Daily traZODone 25 mg Oral Nightly vancomycin 1,750 mg Intravenous Q12H vancomycin per pharmacy 1 each Intravenous as indicated by pharmacokinetics Results/Medications Reviewed 03/30/19 2:06 PM: Results from last 7 days Lab Units 03/30/19 0630 03/28/19 0505 03/28/19 0027 SODIUM mmol/L 138 139 136 POTASSIUM mmol/L 3.6 3.3* 3.4* CHLORIDE mmol/L 108 106 102 BUN mg/dL 10 11 10 CREATININE mg/dL 0.55 0.58 0.75 GLUCOSE mg/dL 231* 239* 213* CALCIUM mg/dL -- 7.7* 8.8 Results from last 7 days Lab Units 03/30/19 0629 03/28/19 0506 03/28/19 0027 WBC K/mcL 8.25 8.24 10.81 HGB g/dL 11.0* 11.9* 14.1 HCT % 34.0* 36.4 42.4 PLT K/mcL 224 231 265 Results from last 7 days Lab Units 03/28/19 0426 03/28/19 0027 TROPONIN I ng/L <15 <15 Results from last 7 days Lab Units 03/28/19 0027 ALK PHOS U/L 117 BILIRUBIN TOTAL mg/dL 0.8 BILIRUBIN DIRECT mg/dL 0.2 TOTAL PROTEIN g/dL 7.3 ALTR U/L 12* AST U/L 11 CULTURES: Reviewed 2:06 PM IMAGING: Reviewed 2:06 PM * Mariano Kirkland MD - 03/30/2019 11:29 AM EDT Patient Name: Maryanne Minaya Admit Date: [id number] MR #: [id number] : 1970 Physicians: Glenroy Queen MD (Family); Dee Marx DO (Referring) Assessment: Patient with 1. Possible osteomyelitis of the right big toe 2. Chronic ulceration of the right big toe 3. Cellulitis of the right foot. 4. Fever 5. Uncontrolled diabetes Plan. Continue patient on current therapy Patient currently on vancomycin intravenously Have Vanco trough level of 15-20 maintained Status post discontinue Zosyn soon, Appreciate seat pack inspector evaluation, have discussed with patient on amputation. Reviewed wound culture, and blood culture Endocrinology evaluation recommended ESR, C-reactive protein, We will follow-up labs and blood culture. Patient had another MRI of the foot, after patient had quit MRI yesterday due to pain. I discussed again with Dr. Santos on management plan We will continue patient on IV antibiotics on DC. Subjective: No new symptoms, no fever, no chills, had scheduled for MRI of the foot Exam: PACU Vitals 03/30/19 0800 BP: 108/73 Pulse: 71 Resp: 12 Temp: 97.7 F (36.5 C) SpO2: 98% Allergies: Azithromycin; Clindamycin; and Erythromycin Current Facility-Administered Medications: acetaminophen (TYLENOL) tablet 650 mg, 650 mg, Oral, Q4H PRN, Yaritza Cain MD, 650 mg at 03/30/19 0607 atorvastatin (LIPITOR) tablet 80 mg, 80 mg, Oral, Daily, Yaritza Cain MD, 80 mg at 03/30/19 08 DULoxetine (CYMBALTA) DR capsule 60 mg, 60 mg, Oral, Daily, Yaritza Cain MD, 60 mg at 03/29/192211 enoxaparin (LOVENOX) syringe 40 mg, 40 mg, Subcutaneous, Daily, Yaritza Cain MD, 40 mg at 03/30/19 08 famotidine (PEPCID) tablet 20 mg, 20 mg, Oral, BID, Yaritza Cain MD, 20 mg at 03/30/19 08 hydroCHLOROthiazide (HYDRODIURIL) tablet 50 mg, 50 mg, Oral, Daily, Yaritza Cain MD, 50 mg at 03/30/19801 HYDROcodone-acetaminophen (NORCO) 5-325 mg per tablet 1 tablet, 1 tablet, Oral, Q4H PRN, Yaritza Cain MD, 1 tablet at 03/30/19801 hydrOXYzine (ATARAX) tablet 100 mg, 100 mg, Oral, Nightly PRN, Maggy Kimbrough CNP, 100 mg at 03/29/191850 insulin glargine (LANTUS) injection 50 Units, 50 Units, Subcutaneous, BID, Dominick Santos MD, 50 Units at 03/30/19802 insulin lispro (HumaLOG) injection 0-15 Units, 0-15 Units, Subcutaneous, at bedtime, Dominick Santos MD, 2 Units at 03/29/192213 insulin lispro (HumaLOG) injection 0-30 Units, 0-30 Units, Subcutaneous, TID AC, Dominick Santos MD, 6 Units at 03/30/19802 levothyroxine (SYNTHROID, LEVOTHROID) tablet 112 mcg, 112 mcg, Oral, Daily, Yaritza Cain MD, 112 mcgat 03/30/19 08 lisinopril (PRINIVIL,ZESTRIL) tablet 20 mg, 20 mg, Oral, Daily, Yaritza Cain MD, 20 mg at 03/30/19 08 naloxone (NARCAN) injection 0.1 mg, 0.1 mg, Intravenous, PRN, Yaritza Cain MD naloxone (NARCAN) injection 0.4 mg, 0.4 mg, Intravenous, PRN, Yaritza Cain MD piperacillin-tazobactam (ZOSYN) IVPB 3.375 g (premix), 3.375 g, Intravenous, Q8H, Yaritza Cain MD, Last Rate: 12.5 mL/hr at 03/30/19 07 pregabalin (LYRICA) capsule 100 mg, 100 mg, Oral, Daily, Dominick Santos MD, 100 mg at 07/01/19 1851 [COMPLETED] Insert peripheral IV, , , Once AND Saline lock IV, , , Once AND sodium chloride(PF) (NS) flush 5 mL, 5 mL, Intravenous, PRN AND sodium chloride 0.9% (NS), 0-150 mL/hr, Intravenous, PRN, Isaac Duran PA-C sodium chloride 0.9% (NS), 100 mL/hr, Intravenous, Continuous, Yaritza Cain MD, Last Rate: 100 mL/hrat 03/30/190, 100 mL/hr at 03/30/19 0310 traZODone (DESYREL) tablet 25 mg, 25 mg, Oral, Nightly, Yaritza Cain MD, 25 mg at 03/29/19 2211 vancomycin (VANCOCIN) 1750 mg in sodium chloride 0.9% (NS) 500 mL IVPB, 1,750 mg, Intravenous, Q12H, Ryan Crowley Jr., [facility],PharmD, Last Rate: 250 mL/hr at 03/30/19 0026 vancomycin per pharmacy 1 each, 1 each, Intravenous, as indicated by pharmacokinetics, Yaritza Cain MD PMH/PSH/SH/ reviewed, no change : Review of Systems: All systems were reviewed no change: Medications Reviewed. Chart Reviewed. Exam Findings: HEENT: Atraumatic/Pupils equal & reactive Neck: Supple, no rigidity ENT: No oral candidiasis Chest: Lungs clear bilaterally, no wheezing, or rales CVS: Normal S1 & S2+, Normal Rhythm Abdomen: Normal symmetry, Soft/non-tender. Benign, BS+ Extremities: No Deformities or Edema, right big toe with ulceration, and erythema. Tender to palpation, dressed currently Skin: Intact & No Rashes, or excoriations Musculoskeletal: No joint swelling, non tender WORKFORCE CONSULTANT: Awake, and Ox3, with depressive look Wound: Big toe with ulceration, and tender to palpation. Dorsal aspect with erythema but stable. Carrillo Catheter: None IV Access: Yes I reviewed Medications. I reviewed Labs. Laboratory and Additional Data Reviewed: Laboratory 03/30/19 11:29 AM Microbiology 03/30/19 11:29 AM Radiology 03/30/19 11:29 AM XR Foot Right 3+ Views (Standard) Final Result 1. Subtle osteolysis of the lateral aspect of the proximal phalanx of 1st digit with soft tissue defect along the plantar surface of the 1st digit concerning for infection of the soft tissue as well as probably osteomyelitis. Further evaluation with 3-phase bone scan or MRI could be performed. 2. No definite fractures or dislocations. [facility] Workstation ID: [id number] MR Foot Right Without Contrast (Results Pending) Ultrasound duplex venous leg right (Results Pending) Medications 03/30/19 11:29 AM Lab Results Component Value Date WBC 8.25 03/30/2019 HGB 11.0 (L) 03/30/2019 HCT 34.0 (L) 03/30/2019 MCV 88.5 03/30/2019 PLT 224 03/30/2019 Lab Results Component Value Date GLUCOSE 231 (H) 03/30/2019 CALCIUM 7.7 (L) 03/28/2019 NA 138 03/30/2019 K 3.6 03/30/2019 CL 108 03/30/2019 BUN 10 03/30/2019 CREATININE 0.55 03/30/2019 Problem List Items Addressed This Visit None Visit Diagnoses Diabetic ulcer of toe of right foot associated with type 2 diabetes mellitus, with bone involvementwithout evidence of necrosis (HCC) - Primary Relevant Medications insulin glargine (LANTUS U-100 INSULIN) 100 unit/mL injection insulin lispro (HumaLOG U-100 Insulin) 100 unit/mL injection insulin lispro (HumaLOG) injection 0-15 Units insulin glargine (LANTUS) injection 50 Units insulin lispro (HumaLOG) injection 0-30 Units I discussed my management plans with Patient/and or Family member, and also discussed antibiotics therapy including side effects with Patient/and or Family member. Medical Decision Making: High * Alphonso Canada MSW LSW - 03/30/2019 11:08 AM EDT DISCHARGE PLAN PROGRESS NOTE Date: 03/30/2019 Time: 11:08 AM Patient Name: Maryanne Minaya Date of : 1970 Sex: Female PT/OT orders placed for possible ECF placement that will need insurance pre-certification. Discharge Readiness Barriers to Discharge: No barriers [facility] Disposition D/C Disposition: Home Reason for Choice: Patient/Family prefernce * Dami Hernandez RPh,PharmD - 03/29/2019 8:57 PM EDT PHARMACOTHERAPY NOTE: Antimicrobial Therapy Follow-up Assessment / Plan: Patient initiated on vancoycin 1750mg q12h for skin/soft tissue infection. Vancomycin trough goal is 15-20 mcg/mL. Based on drug level of 12.3 , will keep vancomycin dose at 1750mg q12h due to incorrect administration times for doses. Will monitor serum creatinine levels and urine output (if available) daily. Pharmacy will continue to follow, order levels, and make adjustments/recommendations as needed. Will redraw trough after 3 more doses. 03/30 2330 vanco trough = Subjective: Maryanne Minaya is a 48 y.o. female initiated on antimicrobial therapy for skin/soft tissue infection. Current antibiotic regimen includes day 2 of pip/tazo. Objective: Labs include: WBC (K/mcL) Date Value 03/28/2019 8.24 BUN (mg/dL) Date Value 03/28/2019 11 Creatinine (mg/dL) Date Value 03/28/2019 0.58 Estimated Creatinine Clearance: 107.9 mL/min (by C-G formula based on SCr of 0.58 mg/dL). Patient Tmax (last 24 hours): 97.9 F Micro: in progress, no growth Therapeutic Drug Monitoring: Last vancomycin dose administered 03/29 1200 Vancomyicin drug level 12.3 : 1801, 6 hour post-dose level. Pharmacist: Dami Hernandez RPh,PharmD Contact Number: [phone] * Charley James DPM - 03/29/2019 6:43 PM EDT Podiatry Inpatient Follow-up 03/29/2019 Charley James DPM [facility] Patient: Maryanne Minaya Date of : 1970 (48 y.o.) PCP: Glenroy Queen MD ASSESSMENT/PLAN: Maryanne Minaya 48 y.o. female with history of 1. DM with neuropathy 2. Fibromyalgia 3. Right hallux ulceration, rule out osteomyelitis Plan: Patient was seen and evaluated at the bedside, I discussed the findings with the patient. Patient was given opportunity to ask questions. Patient elects to have the following treatment as follows: Patient examined and evaluated Discussed all clinical and radiographic findings Radiographs suggestive of subtle osteolysis the clinically corresponds with the location of the wound Educated patient on the etiology of osteomyelitis and likelihood of underlying osteomyelitis Inflammatory markers are grossly elevated, ESR 57, CRP 110 which correspond with osteomyelitis MRI is ordered to rule out osteomyelitis; pt could not hold still due to pain Attempt again tomorrow Complaints of new calf pain, Ultrasound ordered to rule out DVT Patient was given treatment options for osteomyelitis including 6 weeks of IV antibiotics versus amputation to remove the nidus of infection She wants to consider her options after the MRI and determine course of therapy she would like to take Continue antibiotics for systemic infection Appreciate infectious disease assistance, currently on vancomycin and Zosyn Hemoglobin A1c updated, 14.3% Betadine wet-to-dry to right foot daily We will continue to follow SUBJECTIVE: History Since Last Visit: Patient is a 48 y.o. female consulted to the Podiatry Service for right hallux ulceration.Patient states that the ulcer began approximately 2 months ago. She was seeing a seat pack inspector in [place] where she was residing, has now moved to the area due to a new boyfriend. 2 weeks ago she was in the emergency room with worsening appearance of the ulceration. She was placed on antibiotics and followed up with a seat pack inspector locally. She lost her antibiotics and never followed up. Over the past few days has had worsening of her right toe swelling pain and drainage. She began feeling quite ill yesterday with fever chills and nausea. Temperature was 102 on admission with associated nausea and vomiting. No rigors, diarrhea chest pain or shortness of breath. She denies trauma to the area. Has a pre-ulcerative callus on the left foot as well. Admits to driving back from [place] the day before yesterday and has worsening right leg and calf pain. Pending Lab and Radiology Results Order Current Status Vancomycin Level, Trough Collected (03/29/19 1801) Blood Culture #1 Preliminary result Blood Culture #2 Preliminary result Blood Culture Aerobic/Anaerobic Preliminary result Blood Culture Aerobic/Anaerobic Preliminary result Wound Aerobic Culture Preliminary result Interpretation of Testing: I personally reviewed the labs and agree with the interpretation(s). Review of Systems: Constitutional:No fever, no weight loss CV:No chest pain. No ankle swelling Resp:No dyspnea. No wheezing Heme/lymphatic:No apparent lymphadenopathy Allergic/Immunologic:No hives Psych:No unusual mood swings All other systems reviewed and negative other than HPI OBJECTIVE: Physical Examination: BP 91/62 Pulse 65 Temp 97.7 F (36.5 C) (Oral) Resp 14 Ht 5' 5 Wt 93 kg (205 lb 0.4 oz) SpO2 100% BMI 34.12 kg/m Podiatric Exam Vascular: Peripheral pulses are palpable at 2 out of 4 for the right dorsalis pedis pulse, 2 out of4 for the left dorsalis pedis pulse, 2 out of 4 the right posterior tibial pulse, 2 out of 4 for the left posterior tibial pulse. CFT is less than 3 seconds bilaterally. Skin temperature is warm to hot proximal to distal on right. Lower extremity edema non-pitting is observed to the right lower extremities. No increase in warmth to calf, no proximal streaking or lymphangitis. Neurological: Epicritic sensation is grossly absent bilateral via light touch. Babinski test is plantigrade bilaterally. Achilles reflex is present bilateral. Patient is able to follow 2-step commands. No gross motor deficit appreciated at this time bilateral lower extremities. Dermatologic: Integument is intact bilateral lower extremity with the exception of wound noted to right 1st toe. Wound measures 1 cm x 1 cm x 1 cm. Wound base is fibrotic. Toenails 1 through 5 are thickened, elongated, and dystrophic with pain on palpation. Webspaces 1-4 bilaterally are clean, dry,and intact. Musculoskeletal: Range of motion of the lower extremity at the ankle is diminished range of motion.Muscle strength is 5/5 for all muscle groups . Pain is present on palpation to 1 PIP joint severe pain on the right. Right calf pain. Laboratory and Additional Data Reviewed: Reviewed 03/29/19 6:44 PM: Laboratory, Microbiology and Transcriptions * Dominick Santos MD - 03/29/2019 2:13 PM EDT Hospital Medicine Inpatient Follow-up 03/29/2019 Dominick Santos MD [facility] Patient: Maryanne Minaya Date of : 1970 (48 y.o.) PCP: Glenroy Queen MD ASSESSMENT/PLAN: Maryanne Minaya 48 y.o. female presented with complains of foot infection Active Problems: Diabetic foot (HCC) PLAN: For MRI today On empiric vanco and zosyn, ID following E Cultures pending Afebrile Reviewed home meds with patient, increased lantus to 50 u bid per patient Cont lyrical 100 mg at hs SUBJECTIVE: Foot pain controlled with po norco All other systems reviewed and negative other than noted above. OBJECTIVE: Physical Examination: BP (!) 87/56 (BP Location: Left arm, Patient Position: Lying) Pulse 85 Temp 98.3 F (36.8 C) (Oral) Resp 18 Ht 5' 5 Wt 93 kg (205 lb 0.4 oz) SpO2 91% BMI 34.12 kg/m General Appearance: Alert, well appearing, and in no acute distress. HEENT: Head - Normocephalic, atraumatic. Eyes - BRANDON bilaterally and EOMI. Ears - normal external appearance, hearing intact. Nose - normal, no erythema. Throat - mucous membranes moist, pharynx without lesions. Neck: Supple, trachea midline. Cardiovascular: S1, S2 normal. No murmurs, rubs, clicks or gallops appreciated. No pedal edema. Respiratory: Lungs clear to auscultation, no wheezes, rales or rhonchi heard. Abdomen: Soft, non-tender, normal bowel sounds, non-distended, no masses or organomegaly appreciated. Neurological: Grossly normal motor and sensory exam. No focal deficits. Musculoskeletal: No joint tenderness, deformity or swelling. Skin: rt foot in dressing Psych: Alert, oriented x 3. Normal mood and affect. CURRENT MEDICATIONS: atorvastatin 80 mg Oral Daily DULoxetine 60 mg Oral Daily enoxaparin (LOVENOX) injection 40 mg Subcutaneous Daily famotidine 20 mg Oral BID hydroCHLOROthiazide 50 mg Oral Daily insulin glargine 50 Units Subcutaneous BID lispro insulin 0-15 Units Subcutaneous at bedtime insulin lispro 0-30 Units Subcutaneous TID AC levothyroxine 112 mcg Oral Daily lisinopril 20 mg Oral Daily piperacillin-tazobactam (ZOSYN) extended infusion 3.375 g Intravenous Q8H pregabalin 100 mg Oral Daily traZODone 25 mg Oral Nightly vancomycin 1,750 mg Intravenous Q12H vancomycin per pharmacy 1 each Intravenous as indicated by pharmacokinetics Results/Medications Reviewed 03/29/19 2:13 PM: Results from last 7 days Lab Units 03/28/19 0505 03/28/19 0027 SODIUM mmol/L 139 136 POTASSIUM mmol/L 3.3* 3.4* CHLORIDE mmol/L 106 102 BUN mg/dL 11 10 CREATININE mg/dL 0.58 0.75 GLUCOSE mg/dL 239* 213* CALCIUM mg/dL 7.7* 8.8 Results from last 7 days Lab Units 03/28/19 0506 03/28/19 0027 WBC K/mcL 8.24 10.81 HGB g/dL 11.9* 14.1 HCT % 36.4 42.4 PLT K/mcL 231 265 Results from last 7 days Lab Units 03/28/19 0426 03/28/19 0027 TROPONIN I ng/L <15 <15 Results from last 7 days Lab Units 03/28/19 0027 ALK PHOS U/L 117 BILIRUBIN TOTAL mg/dL 0.8 BILIRUBIN DIRECT mg/dL 0.2 TOTAL PROTEIN g/dL 7.3 ALTR U/L 12* AST U/L 11 CULTURES: Reviewed 2:13 PM IMAGING: Reviewed 2:13 PM * Amarilis Wilde, RD - 03/29/2019 1:40 PM EDT Nutrition Care Initial Assessment Reason for visit: Nursing Referral for toe ulcer/wound Nutrition Diagnosis: Altered nutrition-related lab values , related to endocrine dysfunction as evidenced by HgbA1c 14.3. Nutrition Intervention: staff assist with correct CHO consistent menu planning process Initiate Medical Food Supplement Nutrition Prescription: Diet: CHO consistent Oral nutrition supplement: duncan bid daily Tube Feeding: n/a Nutrition Goals: PO intake > 75% most meals, supplements thru 04/04/19 Nutrition Education: pending prior to discharge, patient willing to try wound healing supplement @ this time Assessment: Pertinent clinical information:admit with cellulitis/diabetic foot ulcer/possible osteomyelitis Past Medical History: Diagnosis Date Acid reflux Diabetes mellitus (HCC) Disease of thyroid gland hypothyroidism Fibromyalgia Hyperlipidemia Height: 5' 5 Current weight: 93 kg (205 lb 0.4 oz) BMI Body mass index is 34.12 kg/m . Weight hx: Wt Readings from Last 5 Encounters: 03/28/19 93 kg (205 lb 0.4 oz) 03/28/19 93 kg (205 lb 0.4 oz) 03/09/19 96.6 kg (213 lb) Current diet order: CHO consistent Recent intake: 75-100%. Current intake meets estimated needs. Patient/family comments: states she likes the food and will try the wound healing supplement Difficulty Chewing/Swallowing: No Skin Integrity: diabetic foot ulcer GI Function: WNL Physical Appearance: no signs or symptoms of malnutrition Labs: Recent Labs 03/28/19 0505 NA 139 K 3.3* BICARB 27 CL 106 GLUCOSE 239* BUN 11 CREATININE 0.58 Scheduled Meds: atorvastatin 80 mg Oral Daily DULoxetine 60 mg Oral Daily enoxaparin (LOVENOX) injection 40 mg Subcutaneous Daily famotidine 20 mg Oral BID hydroCHLOROthiazide 50 mg Oral Daily insulin glargine 50 Units Subcutaneous BID lispro insulin 0-15 Units Subcutaneous at bedtime insulin lispro 0-30 Units Subcutaneous TID AC levothyroxine 112 mcg Oral Daily lisinopril 20 mg Oral Daily piperacillin-tazobactam (ZOSYN) extended infusion 3.375 g Intravenous Q8H pregabalin 100 mg Oral Daily traZODone 25 mg Oral Nightly vancomycin 1,750 mg Intravenous Q12H vancomycin per pharmacy 1 each Intravenous as indicated by pharmacokinetics Continuous Infusions: sodium chloride 0.9 % sodium chloride 0.9 % Stopped (03/29/19 1100) Estimated Energy Needs Total Energy Estimated Needs: 1700@ 25 kcal/kg abw Total Protein Estimated Needs: 82 gm@ 1.2 gm/kg abw Will continue to follow as needed., while in-house. Pager, * Mariano Kirkland MD - 03/29/2019 12:31 PM EDT Patient Name: Maryanne Minaya Admit Date: [id number] MR #: [id number] : 1970 Physicians: Glenroy Queen MD (Family); Dee Marx DO (Referring) Assessment: Patient with 1. Possible osteomyelitis of the right big toe 2. Chronic ulceration of the right big toe 3. Cellulitis of the right foot. 4. Fever 5. Uncontrolled diabetes Plan. Continue patient on current therapy Patient currently on vancomycin intravenously Have Vanco trough level of 15-20 maintained Discontinue Zosyn soon, Have seat pack inspector reevaluate patient, Reviewed wound culture, and blood culture Endocrinology evaluation recommended ESR, C-reactive protein, We will follow-up labs and blood culture. I discussed with the boyfriend. Patient is scheduled for MRI of the foot I discussed with Dr. Santos on management plan Subjective: No reported new symptoms, no fever, no chills, had scheduled for MRI of the foot Exam: PACU Vitals 03/28/19 2334 BP: (!) 87/56 Pulse: 85 Resp: 18 Temp: 98.3 F (36.8 C) SpO2: 91% Allergies: Azithromycin; Clindamycin; and Erythromycin Current Facility-Administered Medications: acetaminophen (TYLENOL) tablet 650 mg, 650 mg, Oral, Q4H PRN, Yaritza Cain MD atorvastatin (LIPITOR) tablet 80 mg, 80 mg, Oral, Daily, Yaritza Cain MD, 80 mg at 03/29/19 0936 DULoxetine (CYMBALTA) DR capsule 60 mg, 60 mg, Oral, Daily, Yaritza Cain MD, 60 mg at 03/28/19 183 enoxaparin (LOVENOX) syringe 40 mg, 40 mg, Subcutaneous, Daily, Yaritza Cain MD, 40 mg at 03/29/19 0940 famotidine (PEPCID) tablet 20 mg, 20 mg, Oral, BID, Yaritza Cain MD, 20 mg at 03/29/19 0936 hydroCHLOROthiazide (HYDRODIURIL) tablet 50 mg, 50 mg, Oral, Daily, Yaritza Cain MD, 50 mg at 03/29/19 0936 HYDROcodone-acetaminophen (NORCO) 5-325 mg per tablet 1 tablet, 1 tablet, Oral, Q4H PRN, Yaritza Cain MD, 1 tablet at 03/29/19 1204 hydrOXYzine (ATARAX) tablet 100 mg, 100 mg, Oral, Nightly PRN, Maggy Kimbrough CNP, 100 mg at 03/28/192030 insulin glargine (LANTUS) injection 50 Units, 50 Units, Subcutaneous, BID, Dominick Santos MD insulin lispro (HumaLOG) injection 0-15 Units, 0-15 Units, Subcutaneous, at bedtime, Dominick Santos MD insulin lispro (HumaLOG) injection 0-30 Units, 0-30 Units, Subcutaneous, TID AC, Dominick Santos MD levothyroxine (SYNTHROID, LEVOTHROID) tablet 112 mcg, 112 mcg, Oral, Daily, Yaritza Cain MD, 112 mcgat 03/29/19 0936 lisinopril (PRINIVIL,ZESTRIL) tablet 20 mg, 20 mg, Oral, Daily, Yaritza Cain MD, 20 mg at 03/29/19 0936 naloxone (NARCAN) injection 0.1 mg, 0.1 mg, Intravenous, PRN, Yaritza Cain MD naloxone (NARCAN) injection 0.4 mg, 0.4 mg, Intravenous, PRN, Yaritza Cain MD piperacillin-tazobactam (ZOSYN) IVPB 3.375 g (premix), 3.375 g, Intravenous, Q8H, Yaritza Cain MD, Stopped at 03/29/19 1100 pregabalin (LYRICA) capsule 100 mg, 100 mg, Oral, Daily, Dominick Santos MD [COMPLETED] Insert peripheral IV, , , Once AND Saline lock IV, , , Once AND sodium chloride(PF) (NS) flush 5 mL, 5 mL, Intravenous, PRN AND sodium chloride 0.9% (NS), 0-150 mL/hr, Intravenous, PRN, Isaac Duran PA-C sodium chloride 0.9% (NS), 100 mL/hr, Intravenous, Continuous, Yaritza Cain MD, Stopped at 03/29/19 1100 traZODone (DESYREL) tablet 25 mg, 25 mg, Oral, Nightly, Yaritza Cain MD, 25 mg at 03/28/192030 vancomycin (VANCOCIN) 1750 mg in sodium chloride 0.9% (NS) 500 mL IVPB, 1,750 mg, Intravenous, Q12H, Ryan Crowley Jr., [facility],PharmD, Last Rate: 250 mL/hr at 03/29/19 1206, 1,750 mg at 03/29/19 1206 vancomycin per pharmacy 1 each, 1 each, Intravenous, as indicated by pharmacokinetics, Yaritza Cain MD PMH/PSH/SH/ reviewed, no change : Review of Systems: All systems were reviewed no change: Medications Reviewed. Chart Reviewed. I reviewed Medications. I reviewed Labs. Laboratory and Additional Data Reviewed: Laboratory 03/29/19 12:31 PM Microbiology 03/29/19 12:31 PM Radiology 03/29/19 12:31 PM XR Foot Right 3+ Views (Standard) Final Result 1. Subtle osteolysis of the lateral aspect of the proximal phalanx of 1st digit with soft tissue defect along the plantar surface of the 1st digit concerning for infection of the soft tissue as well as probably osteomyelitis. Further evaluation with 3-phase bone scan or MRI could be performed. 2. No definite fractures or dislocations. [facility] Workstation ID: [id number] MR Foot Right Without Contrast (Results Pending) Medications 03/29/19 12:31 PM Lab Results Component Value Date WBC 8.24 03/28/2019 HGB 11.9 (L) 03/28/2019 HCT 36.4 03/28/2019 MCV 88.1 03/28/2019 PLT 231 03/28/2019 Lab Results Component Value Date GLUCOSE 239 (H) 03/28/2019 CALCIUM 7.7 (L) 03/28/2019 NA 139 03/28/2019 K 3.3 (L) 03/28/2019 CL 106 03/28/2019 BUN 11 03/28/2019 CREATININE 0.58 03/28/2019 Problem List Items Addressed This Visit None Visit Diagnoses Diabetic ulcer of toe of right foot associated with type 2 diabetes mellitus, with bone involvementwithout evidence of necrosis (HCC) - Primary Relevant Medications insulin glargine (LANTUS U-100 INSULIN) 100 unit/mL injection insulin lispro (HumaLOG U-100 Insulin) 100 unit/mL injection insulin lispro (HumaLOG) injection 0-15 Units (Start on 03/29/2019 9:00 PM) insulin glargine (LANTUS) injection 50 Units (Start on 03/29/2019 9:00 PM) insulin lispro (HumaLOG) injection 0-30 Units I discussed my management plans with Patient/and or Family member, and also discussed antibiotics therapy including side effects with Patient/and or Family member. Medical Decision Making: High * Ryan Crowley Jr., Tino,PharmD - 03/28/2019 5:07 AM EDT PHARMACOTHERAPY NOTE: Antimicrobial Therapy Initiation Assessment / Plan: 1. Patient initiated on Vancomycin 1750 mg IV 12 hours for Severe Diabetic Foot Infection . 2. Trough goal is 15 - 20 mcg/mL 3. Vancomycin Trough on 03/29 1800 before the 4th dose. 4. Pharmacy will continue to follow, order levels, and make adjustments as needed. Please call pharmacy with questions. Subjective: Maryanne Minaya is a 48 y.o. female initiated on antimicrobial therapy for Severe Diabetic Foot Infection . Current antibiotic regimen includes: Vancomycin 03/28 - Zosyn 03/28 - Past medical history reviewed: Past Medical History: Diagnosis Date Acid reflux Diabetes mellitus (HCC) Disease of thyroid gland hypothyroidism Fibromyalgia Hyperlipidemia Objective: Ht Readings from Last 1 Encounters: 03/28/19 5' 5 (165.1 cm) Wt Readings from Last 3 Encounters: 03/28/19 93 kg (205 lb 0.4 oz) 03/09/19 96.6 kg (213 lb) Labs include: Lab Results Component Value Date WBC 10.81 03/28/2019 Lab Results Component Value Date BUN 10 03/28/2019 Estimated Creatinine Clearance: 83.4 mL/min (by C-G formula based on SCr of 0.75 mg/dL). Micro: Pending Pharmacist: Ryan Crowley Jr, Tino,PharmD Contact Number: [phone] documented in this encounter Assessments Diagnosis Acute osteomyelitis of ankle or foot, unspecified laterality (HCC)- Primary Diagnosis Diabetic ulcer of toe of right foot associated with type 2 diabetes mellitus, with bone involvement without evidence of necrosis (HCC)- Primary History of depression Personal history of other mental disorder Diabetic foot (HCC) Type II or unspecified type diabetes mellitus with other specified manifestations, not stated as uncontrolled Diabetes mellitus type 2, uncontrolled, with complications (HCC) Diagnosis 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, with necrosis of muscle (HCC)- Primary Reason for Referral Status Reason Specialty Diagnoses / Procedures Referred By Contact Referred To Contact Authorized Patient Preference Rehabilitation Diagnoses Diabetic ulcer of toe of right foot associated with type 2 diabetes mellitus, with bone involvement without evidence of necrosis (HCC) Ronald Medina MD [address] [place] [id number] Specialty Diagnoses / Procedures Referred By Contac t Referred To Contact [facility] Diagnoses Left hip pain Sciatica of left side Procedures CONSULT TO PHYSICAL THERAPY PHYSICAL THERAPY EVALUATION HIGH COMPLEX 45 MINS Older, ZHANNA Santos.SWISS MACHINIST [address] [place] [address] [facility] [place] [address] [place] [address] Referral ID Status Reason Start Date Expiration Date Visits Requested Visits Authorized [id number] Authorized Auto-Generat ed Referral 03/04/2022 06/28/2022 1 1 Specialty Diagnoses / Procedures Referred By Contac t Referred To Contact [facility] Diagnoses Left hip pain Sciatica of left side Procedures PT REHAB FOLLOW UP ORDER THERAPEUTIC EXERCISES RE, EA 15 MIN. Pt [facility] [address] [place] [address] [facility] [place] [address] [place] [address] Referral ID Status Reason Start Date Expiration Date Visits Requested Visits Authorized [id number] Pending Review PCP Requested Referral Auto-Generate d Referral 03/05/2022 06/03/2022 1 1 Specialty Diagnoses / Procedures Referred By Contac t Referred To Contact Orthopedics Diagnoses Left hip pain Procedures CONSULT TO ORTHOPAEDICS OFFICE/OUTPATIENT [facility] 60-74 MINUTES Danielle Sandoval ADULT PSYCHIATRIST.[employer] [employer]ACHINIST [address] [place] [address] Referral ID Status Reason Start Date Expiration Date Visits Requested Visits Authorized [id number] Authorized PCP Requested Referral 2 09/18/2023 1 1 Specialty Diagnoses / Procedures Referred By Contac t Referred To Contact [facility] Diagnoses Left hip pain Radiculopathy, lumbosacral region Procedures PT REHAB FOLLOW UP ORDER THERAPEUTIC EXERCISES RE, EA 15 MIN. Alissa Ware, PT [facility] [address] [place] [address] Referral ID Status Reason Start Date Expiration Date Visits Requested Visits Authorized [id number] Pending Review PCP Requested Referral Auto-Generate d Referral 12/06/2022 03/06/2023 1 1 Specialty Diagnoses / Procedures Referred By Contac t Referred To Contact Orthopedics Diagnoses Injury of right elbow, initial encounter Procedures CONSULT TO ORTHOPAEDICS OFFICE/OUTPATIENT [facility] 60-74 MINUTES Starr Garcia MD [address] [place] [address] Referral ID Status Reason Start Date Expiration Date Visits Requested Visits Authorized [id number] Authorized PCP Requested Referral 03/20/2023 03/19/2024 1 1 Specialty Diagnoses / Procedures Referred By Contac t Referred To Contact XR IMAGING Diagnoses Injury of right elbow, initial encounter Procedures XR ELBOW SPECIAL VIEWS AP/LAT/OTHER RIGHT RADEX ELBOW COMPLETE MINIMUM 3 VIEWS Starr Garcia MD [address] [place] [address] Xr Imaging Referral ID Status Reason Start Date Expiration Date V isits Requested Visits Authorized [id number] Closed Auto-Generate d Referral 03/20/2023 04/18/2024 1 1 Specialty Diagnoses / Procedures Referred By Contac t Referred To Contact General Surgery Diagnoses Abscess of skin of abdomen Procedures CONSULT TO GENERAL SURGERY OFFICE/OUTPATIENT [facility] 60-74 MINUTES Cassius Fletcher, ADULT PSYCHIATRIST.WORKFORCE CONSULTANT [address] [place] [address] Referral ID Status Reason Start Date Expiration Date Visits Requested Visits Authorized [id number] Authorized PCP Requested Referral 04/15/2023 04/14/2024 1 1 Hospital Course * Ronald Medina MD - 04/07/2019 2:00 PM EDT HOSPITALIST DISCHARGE SUMMARY Patient: Maryanne Minaya Account: [id number] Admitted: 03/27/2019 Discharge Date/Time: 04/07/2019 Clinical Summary FINAL DIAGNOSIS: Active Problems: Diabetic foot (HCC) Diabetes mellitus type 2, uncontrolled, with complications (HCC) REASON FOR HOSPITALIZATION AND ADMITTING DIAGNOSIS: Foot Injury Diabetic ulcer of toe of right foot associated with type 2 diabetes mellitus, with bone involvementwithout evidence of necrosis (HCC) [E11.621, L97.516] Diabetic foot (HCC) [E11.8] HOSPITAL COURSE: 48-year-old white female past medical history of uncontrolled diabetes who was admitted to the hospital for right foot osteomyelitis of the right big toe. ID was consulted. Freight Receiver was consulted. She was started on Zosyn and vancomycin. She underwent right big toe amputation. PICC line was placed. She was discharged to SNF on daptomycin IV for 2 weeks per ID recommendation. CONDITION AT DISCHARGE: Stable Physical Examination: Blood pressure 138/80, pulse 81, temperature 97.4 F (36.3 C), resp. rate 16, height 5' 5 , weight 93 kg (205 lb 0.4 oz), SpO2 95 %. General appearance: alert, cooperative, in no acute distress. Head/Neck: Head- normocephalic. Neck- supple, non-tender, without lymphadenopathy Eyes: No Scleral icterus or pallor; EOMI ENT: Trachea midline. Cardiovascular: regular rate and rhythm; normal S1, S2; no murmurs, rubs, clicks or gallops; No/+ peripheral edema. Respiratory: lungs clear to auscultation; without wheezes, rales or rhonchi. Abdomen: soft, non tender, non-distended; positive bowel sounds. Neurological: alert, oriented, normal speech; no focal findings or movement disorder noted. Musculoskeletal: no significant deformity noted. Skin: normal coloration, texture and turgor; no lesions or eruptions. Procedures: No orders of the defined types were placed in this encounter. Consults: Procedures Hospitalize Patient To : Inpatient consult to Podiatry Inpatient consult to Infectious Diseases Inpatient consult to Care Management Inpatient consult to Endocrinology Inpatient consult to IV Team Inpatient consult to IV Team Inpatient consult to Sleeve Machine Tender Inpatient consult to IV Team Other Tests: No orders of the defined types were placed in this encounter. LAST LABS: Results from last 7 days Lab Units 04/07/19 0440 04/01/19 0553 SODIUM mmol/L -- -- 142 POTASSIUM mmol/L -- -- 3.4* CHLORIDE mmol/L -- -- 109* BUN mg/dL -- -- 6* CREATININE mg/dL 1.78* < > 0.44 GLUCOSE mg/dL -- -- 159* < > = values in this interval not displayed. Invalid input(s): LABALBU Results from last 7 days Lab Units 04/01/19 0551 WBC K/mcL 7.72 HGB g/dL 11.0* HCT % 35.2* PLT K/mcL 268 Allergies: Azithromycin; Clindamycin; and Erythromycin Discharge Diet: Oral nutrition supplements Duncan; [place] At lunch and dinner Diet Special; Diabetic; Carbohydrate Consistent 60g/meal (7452-3812 kCal equivalent) Disposition: SNF Discharge Medications Medication List START taking these medications DAPTOmycin 550 mg in sodium chloride 0.9 % 50 mL IVPB Infuse 550 (five hundred fifty) mg into a venous catheter daily Cbc, bmp, esr, crp, cpk weekly x 4 weeks. Follow up with Dr Kirkland in 2 weeks. . HYDROcodone-acetaminophen 5-325 mg per tablet Commonly known as: NORCO Take 1 (one) tablet by mouth every 4 (four) hours as needed . CHANGE how you take these medications clonazePAM 0.5 MG tablet Commonly known as: KLONOPIN Take 1 (one) tablet (0.5 mg total) by mouth nightly for 10 days . What changed: when to take this reasons to take this CONTINUE taking these medications cyclobenzaprine 10 MG tablet Commonly known as: FLEXERIL DULoxetine 60 MG capsule Commonly known as: CYMBALTA famotidine 20 MG tablet Commonly known as: PEPCID FLOVENT HFA 44 mcg/actuation inhaler Generic drug: fluticasone propionate HumaLOG U-100 Insulin 100 unit/mL injection Generic drug: insulin lispro hydrOXYzine 100 MG capsule Commonly known as: VISTARIL insulin aspart U-100 100 unit/mL injection Commonly known as: NovoLOG LANTUS U-100 INSULIN 100 unit/mL injection Generic drug: insulin glargine LEVEMIR FLEXPEN SUBQ levothyroxine 112 MCG tablet Commonly known as: SYNTHROID, LEVOTHROID LYRICA 25 MG capsule Generic drug: pregabalin meclizine 25 mg tablet Commonly known as: ANTIVERT NASONEX 50 mcg/actuation nasal spray Generic drug: mometasone omeprazole 40 MG capsule Commonly known as: PRILOSEC ondansetron 4 MG disintegrating tablet Commonly known as: ZOFRAN-ODT PROAIR HFA 90 mcg/actuation inhaler Generic drug: albuterol rosuvastatin 20 MG tablet Commonly known as: CRESTOR traZODone 50 MG tablet Commonly known as: DESYREL STOP taking these medications ALEVE 220 MG tablet Generic drug: naproxen sodium atorvastatin 80 MG tablet Commonly known as: LIPITOR hydroCHLOROthiazide 50 MG tablet Commonly known as: HYDRODIURIL lisinopril 20 MG tablet Commonly known as: PRINIVIL,ZESTRIL Where to Get Your Medications You can get these medications from any pharmacy Bring a paper prescription for each of these medications clonazePAM 0.5 MG tablet DAPTOmycin 550 mg in sodium chloride 0.9 % 50 mL IVPB HYDROcodone-acetaminophen 5-325 mg per tablet Physician(s) Family: Glenroy Queen MD, , Address: [address] [place] [address] Follow Up: No follow-up provider specified. Patient instructions, including activity, were given to the patient/family at discharge. Please seethe After Visit Summary in the medical record for details. Time spent on discharge: > 30 minutes Completed by: Ronald Medina on 04/07/19, 2:00 PM documented in this encounter Discharge Instructions * Instructions* Haylee Atwood RN - 04/07/2019 Learning About Preventing MRSA Infection What is a MRSA infection? MRSA stands for methicillin-resistant Staphylococcus aureus. It is a type of bacteria that can cause a staph infection. Staph bacteria normally live on your skin and in your nose, usually without causing problems. Sometimes the bacteria cause infection. Usually you can treat this infection with antibiotics. But MRSA infections are harder to treat than other staph infections. This is because antibiotics may not be able to kill MRSA. For some people, especially those who are weak or ill, MRSA infections can become serious. MRSA can spread from person to person. It is commonly spread from the hands of someone who has MRSA. This could be anyone in a health care setting or in the community. MRSA is more likely to develop when antibiotics are used too often or aren't used the right way. Over time, bacteria can change so that these antibiotics no longer work well. How can you prevent MRSA infection? Practice good hygiene Wash your hands often and thoroughly with soap and clean, running water. You can also use an alcohol-based hand fabric coating supervisor. Hand-washing is the best way to avoid spreading germs. Keep cuts and scrapes clean and covered with a bandage. Avoid contact with other people's wounds orbandages. Don't share personal items such as towels or razors. If you are in the hospital, remind doctors and nurses to wash their hands before they touch you. Use antibiotics wisely Always ask your doctor if antibiotics are the best treatment. They can help treat bacterial infections, but they can't cure viral infections. Don't pressure your doctor to prescribe antibiotics when they won't help you get better. If your doctor prescribed antibiotics, take them as directed. Do not stop taking them just because you feel better. You need to take the full course of antibiotics. Using only part of the medicine may cause antibiotic-resistant bacteria to develop. Do not save any antibiotics. Don't use antibiotics that were prescribed for someone else. What are the symptoms? Symptoms of a MRSA infection depend on where the infection is: If the infection is in a wound, that area of your skin may be red or tender. If the infection is in the skin, you may have boils or abscesses. It may look like you have been bitten by a spider or insect. How is it diagnosed? The doctor will take a sample of your infected wound or take a blood or urine sample. The sample istested to see if antibiotics can kill the bacteria. This test may take several days. You may also be tested to see if you are a MRSA carrier. A carrier is a person who has the bacteriaon his or her skin but who isn't sick. The doctor will take a swab from the inside of your nose forthis test. How is MRSA treated? Your doctor may: Drain your wound. Give you antibiotics as pills or through a needle put in your vein (IV). Give you an ointment to put on your skin or inside your nose. Have you wash your skin daily with an antiseptic soap. You may have to stay in the hospital for treatment. In the hospital, you may be kept apart from others to reduce the chances of spreading the bacteria. Follow-up care is a joel part of your treatment and safety. Be sure to make and go to all appointments, and call your doctor if you are having problems. It's also a good idea to know your test resultsand keep a list of the medicines you take. Where can you learn more? Log into your personal health record on https://Tradiert.[employer]esco and enter D218 in the Education box to learn more about Learning About Preventing MRSA Infection. Current as of: April 27, 2018 Content Version: 12.0 3337-9876 [employer]. Care instructions adapted under license by your healthcare professional. If you have questions about a medical condition or this instruction, always ask your healthcare professional. [employer] disclaims any warranty or liability for your use of this information. Osteomyelitis: Care Instructions Your Care Instructions Osteomyelitis (say vg-iiag-ry-mx-tk-QW-tus ) is a bone infection. It is caused by bacteria. The bacteria can infect the bone where it has been injured, or they can be carried through the blood from another area in the body. Osteomyelitis can be a short- or long-term problem. It is treated with antibiotics. You may get theantibiotics as pills or through a needle in a vein (IV). You will probably get treatment in the hospital at first. The type of treatment depends on the type of bacteria causing the infection, the bones affected, and how bad the infection is. Sometimes people need surgery to drain pus from bone or to fix damaged bone. Short-term osteomyelitis that is treated right away usually can be cured. But the long-term form sometimes comes back after treatment. You can help your chances of stopping the infection by taking your medicines as directed. Follow-up care is a joel part of your treatment and safety. Be sure to make and go to all appointments, and call your doctor if you are having problems. It's also a good idea to know your test resultsand keep a list of the medicines you take. How can you care for yourself at home? Take your antibiotics as directed. Do not stop taking them just because you feel better. You need to take the full course of antibiotics. Take pain medicines exactly as directed. ? If the doctor gave you a prescription medicine for pain, take it as prescribed. ? If you are not taking a prescription pain medicine, ask your doctor if you can take an apsf-pwf-poxgmbg medicine. Do mild exercise and stretching if your doctor says it is okay. This can help keep your bones and muscles healthy. Avoid strenuous work or exercise until your doctor says you can do it. Consider physical therapy if your doctor suggests it. Physical therapy may help you have a normal range of movement. Do not smoke. Smoking can slow healing of the infection. If you need help quitting, talk to your doctor about stop-smoking programs and medicines. These can increase your chances of quitting for good. When should you call for help? Call 911 anytime you think you may need emergency care. For example, call if: You have severe bone pain. Call your doctor now or seek immediate medical care if: You continue to have bone pain. You have signs of infection, such as: ? Increased pain, swelling, warmth, or redness. ? Red streaks leading from a wound. ? Pus draining from a wound. ? A fever. Watch closely for changes in your health, and be sure to contact your doctor if: You do not get better as expected. Where can you learn more? Log into your personal health record on https://Tradiert.[employer]esco and enter B364 in the Education box to learn more about Osteomyelitis: Care Instructions. Current as of: June 24, 2018 Content Version: 12.0 4168-8862 [employer]. Care instructions adapted under license by your healthcare professional. If you have questions about a medical condition or this instruction, always ask your healthcare professional. [employer] disclaims any warranty or liability for your use of this information. Learning About Diabetes Food Guidelines Your Care Instructions Meal planning is important to manage diabetes. It helps keep your blood sugar at a target level (which you set with your doctor). You don't have to eat special foods. You can eat what your family eats, including sweets once in a while. But you do have to pay attention to how often you eat and how much you eat of certain foods. You may want to work with a dietitian or a american board certified orthotist (CDE) to help you plan mealsand snacks. A dietitian or CDE can also help you lose weight if that is one of your goals. What should you know about eating carbs? Managing the amount of carbohydrate (carbs) you eat is an important part of healthy meals when you have diabetes. Carbohydrate is found in many foods. Learn which foods have carbs. And learn the amounts of carbs in different foods. ? Bread, cereal, pasta, and rice have about 15 grams of carbs in a serving. A serving is 1 slice ofbread (1 ounce), cup of cooked cereal, or 1/3 cup of cooked pasta or rice. ? Fruits have 15 grams of carbs in a serving. A serving is 1 small fresh fruit, such as an apple ororange; of a banana; cup of cooked or canned fruit; cup of fruit juice; 1 cup of melon or raspberries; or 2 tablespoons of dried fruit. ? Milk and bp-osuvq-onisa yogurt have 15 grams of carbs in a serving. A serving is 1 cup of milk or2/3 cup of ju-crqlo-laewt yogurt. ? Starchy vegetables have 15 grams of carbs in a serving. A serving is cup of mashed potatoes or sweet potato; 1 cup winter squash; of a small baked potato; cup of cooked beans; or cup cooked corn orgreen peas. Learn how much carbs to eat each day and at each meal. A dietitian or CDE can teach you how to keeptrack of the amount of carbs you eat. This is called carbohydrate counting. If you are not sure how to count carbohydrate grams, use the Plate Method to plan meals. It is a good, quick way to make sure that you have a balanced meal. It also helps you spread carbs throughout the day. ? Divide your plate by types of foods. Put non-starchy vegetables on half the plate, meat or other protein food on one-quarter of the plate, and a grain or starchy vegetable in the final quarter of the plate. To this you can add a small piece of fruit and 1 cup of milk or yogurt, depending on how many carbs you are supposed to eat at a meal. Try to eat about the same amount of carbs at each meal. Do not save up your daily allowance of carbs to eat at one meal. Proteins have very little or no carbs per serving. Examples of proteins are beef, chicken, turkey, fish, eggs, tofu, cheese, cottage cheese, and peanut butter. A serving size of meat is 3 ounces, which is about the size of a deck of cards. Examples of meat substitute serving sizes (equal to 1 ounceof meat) are 1/4 cup of cottage cheese, 1 egg, 1 tablespoon of peanut butter, and cup of tofu. How can you eat out and still eat healthy? Learn to estimate the serving sizes of foods that have carbohydrate. If you measure food at home, it will be easier to estimate the amount in a serving of restaurant food. If the meal you order has too much carbohydrate (such as potatoes, corn, or baked beans), ask to have a low-carbohydrate food instead. Ask for a salad or green vegetables. If you use insulin, check your blood sugar before and after eating out to help you plan how much toeat in the future. If you eat more carbohydrate at a meal than you had planned, take a walk or do other exercise. Thiswill help lower your blood sugar. What else should you know? Limit saturated fat, such as the fat from meat and dairy products. This is a healthy choice becausepeople who have diabetes are at higher risk of heart disease. So choose lean cuts of meat and nonfat or low-fat dairy products. Use olive or canola oil instead of butter or shortening when cooking. Don't skip meals. Your blood sugar may drop too low if you skip meals and take insulin or certain medicines for diabetes. Check with your doctor before you drink alcohol. Alcohol can cause your blood sugar to drop too low. Alcohol can also cause a bad reaction if you take certain diabetes medicines. Follow-up care is a joel part of your treatment and safety. Be sure to make and go to all appointments, and call your doctor if you are having problems. It's also a good idea to know your test resultsand keep a list of the medicines you take. Where can you learn more? Log into your personal health record on https://Octane5 International[employer] and enter I147 in the Education box to learn more about Learning About Diabetes Food Guidelines. Current as of: April 22, 2018 Content Version: 12.0 6918-5200 [employer]. Care instructions adapted under license by your healthcare professional. If you have questions about a medical condition or this instruction, always ask your healthcare professional. [employer] disclaims any warranty or liability for your use of this information. Osteomyelitis: Care Instructions Your Care Instructions Osteomyelitis (say uj-bvdu-ia-ts-ru-BG-tus ) is a bone infection. It is caused by bacteria. The bacteria can infect the bone where it has been injured, or they can be carried through the blood from another area in the body. Osteomyelitis can be a short- or long-term problem. It is treated with antibiotics. You may get theantibiotics as pills or through a needle in a vein (IV). You will probably get treatment in the hospital at first. The type of treatment depends on the type of bacteria causing the infection, the bones affected, and how bad the infection is. Sometimes people need surgery to drain pus from bone or to fix damaged bone. Short-term osteomyelitis that is treated right away usually can be cured. But the long-term form sometimes comes back after treatment. You can help your chances of stopping the infection by taking your medicines as directed. Follow-up care is a joel part of your treatment and safety. Be sure to make and go to all appointments, and call your doctor if you are having problems. It's also a good idea to know your test resultsand keep a list of the medicines you take. How can you care for yourself at home? Take your antibiotics as directed. Do not stop taking them just because you feel better. You need to take the full course of antibiotics. Take pain medicines exactly as directed. ? If the doctor gave you a prescription medicine for pain, take it as prescribed. ? If you are not taking a prescription pain medicine, ask your doctor if you can take an notn-vie-dtyrnzm medicine. Do mild exercise and stretching if your doctor says it is okay. This can help keep your bones and muscles healthy. Avoid strenuous work or exercise until your doctor says you can do it. Consider physical therapy if your doctor suggests it. Physical therapy may help you have a normal range of movement. Do not smoke. Smoking can slow healing of the infection. If you need help quitting, talk to your doctor about stop-smoking programs and medicines. These can increase your chances of quitting for good. When should you call for help? Call 911 anytime you think you may need emergency care. For example, call if: You have severe bone pain. Call your doctor now or seek immediate medical care if: You continue to have bone pain. You have signs of infection, such as: ? Increased pain, swelling, warmth, or redness. ? Red streaks leading from a wound. ? Pus draining from a wound. ? A fever. Watch closely for changes in your health, and be sure to contact your doctor if: You do not get better as expected. Where can you learn more? Log into your personal health record on https://Tradiert.[employer]esco and enter B364 in the Education box to learn more about Osteomyelitis: Care Instructions. Current as of: June 24, 2018 Content Version: 12.0 9119-5060 [employer]. Care instructions adapted under license by your healthcare professional. If you have questions about a medical condition or this instruction, always ask your healthcare professional. [employer] disclaims any warranty or liability for your use of this information. documented in this encounter* Attachments The following attachments cannot be sent through Care Everywhere. * Diabetic Foot Ulcer ([place]) documented in this encounter Additional Source Comments INFORMATION SOURCE (unrecogn ized section and content) DATE CREATED AUTHOR AUTHOR'S ORGANIZ ATION 09/08/2018 [facility] DATE CREATED AUTHOR AUTHOR'S ORGANIZ ATION 09/08/2018 [facility] DATE CREATED AUTHOR AUTHOR'S ORGANIZ ATION 01/20/2019 [facility] DATE CREATED AUTHOR AUTHOR'S ORGANIZ ATION 03/08/2019 [facility] DATE CREATED AUTHOR AUTHOR'S ORGANIZ ATION 05/21/2019 [facility] DATE CREATED AUTHOR AUTHOR'S ORGANIZ ATION 10/11/2019 [facility] DATE CREATED AUTHOR AUTHOR'S ORGANIZ ATION 02/04/2021 [facility] DATE CREATED AUTHOR AUTHOR'S ORGANIZ ATION 02/25/2021 [employer] DATE CREATED AUTHOR AUTHOR'S ORGANIZ ATION 12/28/2021 [facility] DATE CREATED AUTHOR AUTHOR'S ORGANIZ ATION 10/12/2023 [facility] Reason for Visit (unrecogniz ed section and content) Specialty Diagnoses / Procedures Referred By Contac t Referred To Contact PHYSICAL THERAPY Diagnoses Left hip pain Radiculopathy, lumbosacral region Procedures PT REHAB FOLLOW UP ORDER THERAPEUTIC EXERCISES RE, EA 15 MIN. Tammy Zhou PA-C [address] [place] [address] Pt [facility] [address] [facility] [place] [address] Referral ID Status Reason Start Date Expiration Date Visits Requested Visits Authorized [id number] Pending Review PCP Requested Referral Auto-Generate d Referral 12/06/2022 03/06/2023 1 1 Reason Comments Wound Check Reason Comments Foot Injury Status Reason Specialty Diagnoses / Procedures Referre d By Contact Referred To Contact Diagnoses Diabetic ulcer of toe of right foot associated with type 2 diabetes mellitus, with bone involvement without evidence of necrosis (HCC) Diabetic foot (HCC) Reason Comments Toe Pain Skin Ulcer Reason Comments Established Patient sinus issues- drng, cough,sore throat, SOB Specialty Diagnoses / Procedures Referred By Contac t Referred To Contact Internal Medicine / INTERNAL MEDICINE Diagnoses Shoulder/Neck/back pain from accident 11/30/21, [facility] Procedures 4C EST HOSP/ER Starr Gonzalez MD [address] [place] [address] Referral ID Status Reason Start Date Expiration Date Visits Requested Visits Authorized [id number] Outside PCP Financial Clearance Required - Accident 12/17/2021 03/17/2022 1 1 Reason Comments Rx issue Reason Comments Patient Update Reason Onset Date Comments Refill Request 02/07/2022 Reason Comments Refill Request Reason Comments Recheck 3 month follow up Reason Comments Results Reason Comments PT Eval Patient Education Specialty Diagnoses / Procedures Referred By Contac t Referred To Contact [facility] Diagnoses Left hip pain Sciatica of left side Procedures CONSULT TO PHYSICAL THERAPY PHYSICAL THERAPY EVALUATION HIGH COMPLEX 45 MINS Danielle Sandoval APRN.SWISS MACHINIST [address] [place] [address] [facility] [address] [address] Referral ID Status Reason Start Date Expiration Date V isits Requested Visits Authorized [id number] Closed Auto-Generate d Referral 03/04/2022 06/28/2022 1 1 Specialty Diagnoses / Procedures Referred By Contac t Referred To Contact [facility] Diagnoses Left hip pain Sciatica of left side Procedures PT REHAB FOLLOW UP ORDER THERAPEUTIC EXERCISES RE, EA 15 MIN. Danielle Sandoval APRN.SWISS MACHINIST [address] [place] [address] [facility] [address] [address] Referral ID Status Reason Start Date Expiration Date Visits Requested Visits Authorized [id number] Authorized PCP Requested Referral Auto-Generate d Referral 03/06/2022 06/06/2022 8 8 Reason Comments Urinary Frequency burning with urinati on x 4 days Reason Comments Letter Reason Onset Date Comments Refill Request 07/15/2022 Reason Comments Recheck 6 month follow up Reason Comments Long-Term Plan of Care Reason Comments Recheck [facility] Hosp follow up Reason Comments Home Care Management Reason Comments Updated Long-Term Plan of Care Reason Comments Home Health Point of Care Results Orders Reason Comments Hospital F/U abdomen wound- from a boil- improved Reason Comments New Referred by Danielle Sandoval Specialty Diagnoses / Procedures Referred By Contac t Referred To Contact Orthopedics Diagnoses Left hip pain Procedures CONSULT TO ORTHOPAEDICS OFFICE/OUTPATIENT NEW HIGH MDM 60-74 MINUTES Danielle Sandoval APRN.SWISS MACHINIST [address] [place] [address] Referral ID Status Reason Start Date Expiration Date V isits Requested Visits Authorized [id number] Closed PCP Requested Referral 09/18/2022 09/18/2023 1 1 Reason Comments PT Eval Specialty Diagnoses / Procedures Referred By Contac t Referred To Contact Physical Therapy Diagnoses Left hip pain Radiculopathy, lumbosacral region Procedures CONSULT TO PHYSICAL THERAPY Tammy Zhou PA-C [address] [place] [address] [address] [place] [address] Referral ID Status Reason Start Date Expiration Date Visits Re quested Visits Authorized [id number] Closed 2022 02/23/2023 1 1 Specialty Diagnoses / Procedures Referred By Contac t Referred To Contact PHYSICAL THERAPY Diagnoses Pain in left hip Procedures THERAPEUTIC EXERCISES RE, EA 15 MIN. Tammy Zhou PA-C [address] [place] [address] [facility] [address] [place] [address] Referral ID Status Reason Start Date Expiration Date V isits Requested Visits Authorized [id number] Authorized 12/10/2022 09/28/2023 16 16 Reason Onset Date Comments Refill Request 03/14/2023 Reason Comments Pain (Elbow Pain) Right elbow, injured it 3 weeks ago Reason Comments Med Change Request Reason Comments Established Patient Pain Specialty Diagnoses / Procedures Referred By Contac t Referred To Contact Orthopedics Diagnoses Injury of right elbow, initial encounter Procedures CONSULT TO ORTHOPAEDICS OFFICE/OUTPATIENT [facility] 60-74 MINUTES Starr Garcia MD [address] [place] [address] Referral ID Status Reason Start Date Expiration Date V isits Requested Visits Authorized [id number] Closed PCP Requested Referral 03/20/2023 03/19/2024 1 1 Reason Comments Hospital F/U Reason Comments Consult Abscess of abdomen Procedure Specialty Diagnoses / Procedures Referred By Contac t Referred To Contact General Surgery Diagnoses Abscess of skin of abdomen Procedures CONSULT TO GENERAL SURGERY OFFICE/OUTPATIENT [facility] 60-74 MINUTES Cassius Fletcher APRN.WORKFORCE CONSULTANT [address] [place] [address] Referral ID Status Reason Start Date Expiration Date V isits Requested Visits Authorized [id number] Closed PCP Requested Referral 04/15/2023 04/14/2024 1 1 Reason Comments Letter BJ Reason Comments Recheck 6 week follow up abs cess Reason Comments Yearly Exam Yearly exam Reason Comments Results Reason Comments Follow Up blood pressure follo w up new med Reason Comments Follow Up 2 week follow up-BP and labs, patient c/o left hip pain 10/10 x 3 weeks, retaining fluid drinking water Reason Comments Follow Up blood pressure, left hip pain and med refills, chest flutter x 2 years comes and goes, Reason Comments Breathing Problem Diarrhea Reason Comments Well Woman Reason Comments Radiology US Specialty Diagnoses / Procedures Referred By Subha krishnamurthy Referred To Contact US IMAGING Diagnoses Left adnexal tenderness Abnormal CT scan, pelvis Procedures US FEMALE PELVIS TRANSVAG US TRANSVAGINAL Danielle Sandoval ADULT PSYCHIATRIST.SWISS MACHINIST [address] [place] [address] Us Imaging [id number] Referral ID Status Reason Start Date Expiration Date V isits Requested Visits Authorized [id number] Closed Auto-Generate d Referral 05/12/2023 06/10/2024 1 1 Zeferino Geronimo DPM - 04/02/2019 12:51 PM Zeferino Mcdermott DPM - 04/01/2019 2:08 PM Yaritza Sagastume MD - 03/28/2019 5:46 AM EDT H&P Notes (unrecognized sect ion and content) INTERVAL HISTORY AND PHYSICAL Patient Name: Maryanne Minaya Admit Date: [id number] MR #: [id number] : 1970 The H&P has been reviewed and the patient has been examined. I concur with the findings of the H&P. There are no significant changes. It is appropriate to proceed with the planned procedure. Zeferino Geronimo DPM 04/02/2019 12:51 PM Podiatry Inpatient Follow-up 04/01/2019 Zeferino Geronimo, [facility] Patient: Maryanne Minaya Date of : 1970 (48 y.o.) PCP: Glenroy Queen MD ASSESSMENT/PLAN: Maryanne Minaya 48 y.o. female with history of 1. Diabetes mellitus with peripheral neuropathy, (hemoglobin A1c 14.3) 2. Fibromyalgia 3. 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 Patient was given opportunity to ask questions. Patient elects to have the following treatment as follows: 1. Patient to have right great toe amputation tomorrow the level of the metatarsal phalangeal joint. Surgery is scheduled for 1 PM. 2. Informed consent process was completed today with CHUCK Barnes as a witness. Patient did also consent to blood and blood products. 3. I discussed with CHUCK Barnes I will defer patient's glycemic management during her n.p.o. state beginning at midnight tonight to endocrinology given her severely uncontrolled diabetes with hemoglobin A1c 14.3 and the fact that the case will begin later in the day at 1 PM. CHUCK Barnes will reach out to endocrinology today for orders. I appreciate endocrinology's involvement. 4. New dressing applied to patient's right foot by nursing. 5. Podiatry will follow. SUBJECTIVE: History Since Last Visit: Patient is a 48 y.o. female consulted to the Podiatry Service for right hallux ulceration.Patient states that the ulcer began approximately 2 months ago. She was seeing a seat pack inspector in [place] where she was residing, has now moved to the area due to a new boyfriend. 2 weeks ago she was in the emergency room with worsening appearance of the ulceration. She was placed on antibiotics and followed up with a seat pack inspector locally. She lost her antibiotics and never followed up. Over the past few days has had worsening of her right toe swelling pain and drainage. She began feeling quite ill yesterday with fever chills and nausea. Temperature was 102 on admission with associated nausea and vomiting. Patient had MRI completed today which showed osteomyelitis to the distal and proximal phalanx of the right great toe with a septic hallux interphalangeal joint. Patient has elected for amputation of the right great toe tomorrow. She has no new complaints today. Review of Systems: Constitutional:No fever, no weight loss CV:No chest pain. No ankle swelling Resp:No dyspnea. No wheezing Heme/lymphatic:No apparent lymphadenopathy Allergic/Immunologic:No hives Psych:No unusual mood swings All other systems reviewed and negative other than HPI OBJECTIVE: Physical Examination: BP 118/79 Pulse 68 Temp 97.3 F (36.3 C) (Oral) Resp 14 Ht 5' 5 Wt 93 kg (205 lb 0.4 oz) SpO2 97% BMI 34.12 kg/m Podiatric Exam Vascular: Peripheral pulses are palpable at 2 out of 4 for the right dorsalis pedis pulse, 2 out of 4 for the left dorsalis pedis pulse, 2 out of 4 the right posterior tibial pulse, 2 out of 4 for the left posterior tibial pulse. CFT is less than 3 seconds bilaterally. Skin temperature is warm to warm proximal to distal on right. Lower extremity edema non-pitting is observed to the right lower extremities. No increase in warmth to calf, no proximal streaking or lymphangitis. Neurological: Epicritic sensation is grossly absent bilateral via light touch. Babinski test is plantigrade bilaterally. Achilles reflex is present bilateral. Patient is able to follow 2-step commands. No gross motor deficit appreciated at this time bilateral lower extremities. Dermatologic: Integument is intact bilateral lower extremity with the exception of wound noted to right 1st toe. Wound measures 1 cm x 1 cm x 1 cm. Wound base is fibrotic. No purulent drainage to the wound to the right hallux is observed. Toenails 1 through 5 are thickened, elongated, and dystrophic with pain on palpation. Webspaces 1-4 bilaterally are clean, dry, and intact. Musculoskeletal: Range of motion of the lower extremity at the ankle is diminished range of motion. Muscle strength is 5/5 for all muscle groups . Pain is present on palpation to 1 PIP joint severe pain on the right. Right calf pain. Laboratory and Additional Data Reviewed: Reviewed 04/01/19 2:08 PM: Laboratory, Microbiology and Transcriptions [facility] Medicine Inpatient H&P 03/28/2019 Yaritza Cain MD [facility] Patient: Maryanne Minaya Date of : 1970 (48 y.o.) PCP: Glenroy Queen MD Assessment Maryanne Minaya 48 y.o. female with history of Diabetes Mellitus 1.Cellulitis 2.Diabetic foot ulcer 3.Uncontrolled diabetes 4. Hypokalemia Active Problems: Diabetic foot (HCC) Plan: [facility]Vancomycin IV as per pharmacist to dose.Zosyn 3.375 g IV every 8 hours.Podiatry consult infectious disease consult.Insulin sliding scale coverage before meals and at bedtime. DVT prophylaxis with Lovenox we will continue Tylenol orally as needed for fever SUBJECTIVE: Chief Complaint: Foot ulcer History of Presenting Illness: Maryanne Minaya is a 48 y.o. female presenting from Home with complaint of Foot ulcer. Patient Came to emergency room for a nonhealing wound on her right great toe. She states that she picked a callus off of it about 2 months ago and is been dealing with it ever since it is now developed an ulceration with a foul-smelling discharge her entire toe and forefoot is erythematous and painful. She states she is diabetic and her sugars been running high. She was seeing a seat pack inspector in [place] and then a seat pack inspector here at [place] and then the wound clinic but none of these things are helping and it seems to be getting worse. States she has had fevers at home she finished Bactrim and Keflex 2 days ago and is gotten worse since finishing the antibiotics. Review of Systems: 10 systems reviewed and negative other than noted in HPI History: Past Medical History: Diagnosis Date Acid reflux Diabetes mellitus (HCC) Disease of thyroid gland hypothyroidism Fibromyalgia Hyperlipidemia Past Surgical History: Procedure Laterality Date APPENDECTOMY TONSILLECTOMY TUBAL LIGATION History reviewed. No pertinent family history. Social History Tobacco Use Smoking Status Current Every Day Smoker Packs/day: 0.25 Years: 30.00 Pack years: 7.50 Types: Cigarettes Smokeless Tobacco Never Used Social History Substance and Sexual Activity Alcohol Use Never Frequency: Never Family and Social History reviewed and non-pertinent to this visit Allergies: Azithromycin; Clindamycin; and Erythromycin Home Medications: Outpatient Medications as of 03/28/2019 Medication Sig albuterol (PROAIR HFA) 90 mcg/actuation inhaler Inhale 2 puffs every 4 (four) hours as needed . atorvastatin (LIPITOR) 80 MG tablet Take 80 mg by mouth daily . clonazePAM (KLONOPIN) 0.5 MG tablet Take 0.5 mg by mouth at bedtime as needed . cyclobenzaprine (FLEXERIL) 10 MG tablet Take 10 mg by mouth every 8 (eight) hours as needed . DULoxetine (CYMBALTA) 60 MG capsule Take 60 mg by mouth every morning . famotidine (PEPCID) 20 MG tablet Take 20 mg by mouth 2 (two) times a day . fluticasone propionate (FLOVENT HFA) 44 mcg/actuation inhaler Inhale 1 puff 2 (two) times a day as needed . hydroCHLOROthiazide (HYDRODIURIL) 50 MG tablet Take 50 mg by mouth daily . insulin aspart U-100 (NovoLOG) 100 unit/mL injection Inject under the skin 3 (three) times a day before meals . insulin detemir (LEVEMIR FLEXPEN SUBQ) Inject 50 Units under the skin 2 (two) times a day . insulin glargine (LANTUS U-100 INSULIN) 100 unit/mL injection Inject 30 Units under the skin . insulin lispro (HumaLOG U-100 Insulin) 100 unit/mL injection Inject 7 Units under the skin . levothyroxine (SYNTHROID, LEVOTHROID) 112 MCG tablet Take 112 mcg by mouth daily . lisinopril (PRINIVIL,ZESTRIL) 20 MG tablet Take 20 mg by mouth daily . meclizine (ANTIVERT) 25 mg tablet every 12 (twelve) hours as needed . mometasone (NASONEX) 50 mcg/actuation nasal spray = 2 spray(s), Nasal, Daily, PRN for allergy symptoms, # 17 gram, Refills(s) 0 naproxen sodium (ALEVE) 220 MG tablet Take 220 mg by mouth 2 (two) times a day . omeprazole (PRILOSEC) 40 MG capsule 40 mg . ondansetron (ZOFRAN-ODT) 4 MG disintegrating tablet 4 mg 2 (two) times a day as needed . pregabalin (LYRICA) 25 MG capsule 25 mg . rosuvastatin (CRESTOR) 20 MG tablet 20 mg daily . traZODone (DESYREL) 50 MG tablet TAKE 1-2 TABLET AT BEDTIME NEEDED OBJECTIVE: Physical Examination: BP 116/70 (BP Location: Right arm, Patient Position: Lying) Pulse 92 Temp (!) 100.9 F (38.3 C) (Oral) Resp 16 Ht 5' 5 Wt 93 kg (205 lb 0.4 oz) LMP 02/26/2019 SpO2 93% BMI 34.12 kg/m General Appearance: Alert, well appearing, and in no acute distress. HEENT: Head - Normocephalic, atraumatic. Eyes - BRANDON bilaterally and EOMI. Ears - normal external appearance, hearing intact. Nose - normal, no erythema. Throat - mucous membranes moist, pharynx without lesions. Neck: Supple, trachea midline. Cardiovascular: S1, S2 normal. No murmurs, rubs, clicks or gallops appreciated. No pedal edema. Respiratory: Lungs clear to auscultation, no wheezes, rales or rhonchi heard. Abdomen: Soft, non-tender, normal bowel sounds, non-distended, no masses or organomegaly appreciated. Neurological: Grossly normal motor and sensory exam. No focal deficits. Musculoskeletal: No joint tenderness, deformity or swelling. Skin: Normal coloration and turgor. No rashes. Psych: Alert, oriented x 3. Normal mood and affect. Right foot: ..Foot is wrapped in a clean dressing please see your note for full exam of that foot Laboratory and Additional Data Reviewed: Results/Medications Reviewed 03/28/19 5:46 AM: Results from last 7 days Lab Units 03/28/19 0027 SODIUM mmol/L 136 POTASSIUM mmol/L 3.4* CHLORIDE mmol/L 102 BUN mg/dL 10 CREATININE mg/dL 0.75 GLUCOSE mg/dL 213* CALCIUM mg/dL 8.8 Results from last 7 days Lab Units 03/28/19 0506 03/28/19 0027 WBC K/mcL 8.24 10.81 HGB g/dL 11.9* 14.1 HCT % 36.4 42.4 PLT K/mcL 231 265 Results from last 7 days Lab Units 03/28/19 0426 03/28/19 0027 TROPONIN I ng/L <15 <15 Results from last 7 days Lab Units 03/28/19 0027 ALK PHOS U/L 117 BILIRUBIN TOTAL mg/dL 0.8 BILIRUBIN DIRECT mg/dL 0.2 TOTAL PROTEIN g/dL 7.3 ALTR U/L 12* AST U/L 11 CULTURES: Reviewed 5:46 AM IMAGING: Reviewed 5:46 AM documented in this encounter Med Todd, OT - 04/06/2019 10:34 AM Breanna Norris RN - 04/06/2019 10:20 AM Breanna Norris RN - 04/05/2019 10:48 AM Karen Fenton, PT - 04/03/2019 8:53 AM EDT Consult Notes (unrecognized section and content) Occupational Therapy OCCUPATIONAL THERAPY EVALUATION NOTE Skilled Therapy Needs After Discharge Are Skilled Therapy Services Needed After Discharge: No(Benefit from PT and nursing for IV ATB.) EVALUATION ONLY Outcomes Measures Prior Function Daily Activity: Raw Score: 24 Prior Function Daily Activity % Impaired: 0% functionally impaired AM-PAC Daily Activity: Raw Score: 24 AM-PAC Daily Activity % Impaired: (Pt will need Min adaptive techniques for dressing andshower ) Occupational Therapy Assessment The patient presents with musculoskeletal impairment(s) in right lower extremity which create performance deficits including balance. These performance impairments limit participation in bathing and functional mobility in the chosen occupational roles of premorbid level individual. The patient's co morbidities do not affect patient performance in the above activities and roles. The patient's home setup is a cnmt for return to prior level of function. The patient's awareness of own capacity and performance is a cnmt to return to prior level of function. During the assessment, no modification of task was required and limited treatment options were identified in the plan of care. This consultation required brief review of the medical and therapy history. Activity Tolerance Activity Tolerance: Endurance does not limit participation in activity Therapy Precautions Orthotic Devices: No Weight Bearing Status: X RLE: Non Wt bearing General Rehab Precautions: Fall risk Cognition Overall Cognitive Status: Within Functional Limits Arousal/Alertness: Appropriate responses to stimuli Orientation Level: Oriented X4 Executive functioning: WFL Safety Judgment: Good awareness of safety precautions Problem Solving: Able to problem solve independently Attention: Attends to distracted environment Hearing Status: WFL Social Interaction: WFL Skilled Intervention: Pt was pleasant and cooperative during this session. ADL/IADL LE Dressing: Modified independence Skilled Intervention: Pt verbalized understanding of importance of maintaining NWB status of R foot for healing purposes. Bed Mobility Rolling: Independent Supine to Sit: Independent Sit to Supine: Independent Functional Transfers Exercise Interventions Home Living Type of Home: Apartment Home Layout: One level Bathroom Shower/Tub: Tub/shower unit Bathroom Toilet: Standard Bathroom Equipment: Shower chair Home Equipment: (has shower chair) Additional Comments: Pt lives w/ her SO's mother in a ground floor apt. 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 Past Medical History: Diagnosis Date Acid reflux Diabetes mellitus (HCC) Diabetes mellitus, type 2 (HCC) Disease of thyroid gland hypothyroidism Fibromyalgia Hyperlipidemia Past Surgical History: Procedure Laterality Date AMPUTATION TOE(S) Right 04/02/2019 Procedure: RIGHT GREAT TOE AMPUTATION; Surgeon: Zeferino Geronimo DPM; Location: Main OR; Service: Podiatry APPENDECTOMY TONSILLECTOMY TUBAL LIGATION For complete objective data, detailed plan of care and patient education refer to: OT EVALUATION flow sheet, OT TREATMENT flow sheet, patient Plan of Care, Plan of Care progress note, and Patient Education. This note stands as the current Discharge Summary upon patient discharge from the hospital or completion of Occupational Therapy Plan of Care. Met with patient for Diabetes self management education. F/U diabetes education from previous visit on 04/05/2019 A1C: Diabetes home medications: Ordered medications while in hospital: Learning needs: Support person: Dietary education: Physical activity: Blood glucose monitoring: Discussed option for using a CGM for BG monitoring but pt. Had indicated that [facility] would not cover this device for her. Reports that was about 6 months or so ago. Informed pt. That I had checked with [place] Rep regarding Medicaid covering the device and the response from the rep was that for someone with DM2, using insulin and one other criteria: A1c <6 or >8.5% (Caresource >7%) or Mealtime injections of 3 x daily; fingerstick 4x / day, FBS >150, reoccurring hypoglycemia <50, history of hypoglycemia unawarness, inadequate control despite documents of compliance and alterations by provider. Pt. Appreciative of information. Encouraged when she gets home to begin checking BG 4x daily, recording and she will have documentation that she is checking with f/u from provider. Hypoglycemia & Hyperglycemia: Barriers to education: Goals developed: 1. Consider use of Freestyle Sofi for BG monitoring and discuss with provider for RX. Associated Order(s): IP CONSULT TO PSYCHOLOGIST MILITARY PERSONNEL Met with patient for Diabetes self management education. A1C: 14.3%. Discussed results and implications/risk for detention complications. Pt. Tearful and states I have always taken care of everyone else and not myself and I have been in denial but beginning to realize I need to take care of myself and be here for my son. Diabetes home medications: Has used insulin in the past. I just got tired for doing all of it. Ordered medications while in hospital: Lantus/Humalog. Learning needs: Pt. Reports that she has had diabetes education in the past, used to CHO count and feels she knows what to do but has been in denial and just gotten tired of doing it. I feel like I'm cursed. Support person: None present. Mentions her mother. Dietary education: Would benefit from RD. Does recall that 15gms of CHO is = to a serving. Discussed that general guidelines for women = 45-60gms of CHO for women. States she does not recall what her recommendations were in the past. Will ask RD to see pt. During hospital stay. Pt. Anticipates DC home tomorrow. Physical activity: Limited at this time due to foot wound/restrictions. Blood glucose monitoring: Reports she has a freestyle meter at home and current test strips but got tired of sore fingers. Provided BG log for recording and reporting of BG levels and encouraged ongoing f/u support. Hypoglycemia & Hyperglycemia: Revewied s/s, causes, treatment, prevention of hypoglycemia. Barriers to education: Pt. Reports she has been in denial about having Diabetes. Goals developed: 1. Start taking better care of myself and my diabetes. 2. Consider support resources to help me take better care of myself: Follow up with Dr. Harris as OP, consider support group, shared medical appointment, OP diabetes education. Handouts: Diabetes and You book A1c BG targets Hypoglycemia [place] information. Physical Therapy PHYSICAL THERAPY EVALUATION NOTE Skilled Therapy Needs After Discharge Are Skilled Therapy Services Needed After Discharge: Yes Intensity of Skilled Therapy: Up to 5 days per week(pt would like to go to SNF by son and mom) DME Recommendation: (aldair castaneda) DME Rationale: Patient's condition prevents him/her from accomplishing ADL without recommended equipment, Patient's condition creates an increased risk of safety hazard without recommended equipment, Equipment required to maintain weight bearing status per physician orders Rehab Potential: Excellent She may go over to her boyfriend's mom's house. 2 LINDSEY without HR. Has platform type steps. Walker will fit into bathroom and bedroom. She is disheveled and not sure on where she is going to live. She was unclear of where she was currently living. Wants to get closer to her mom and son though. She wants to go to SNF. Has meniers disease with dizziness and nauseated. None noted on eval. Outcomes Measures Prior Function - Basic Mobility % Impaired: AM-PAC - Basic Mobility Raw Score: 19 Points AM-PAC - Basic Mobility % Impaired: Physical Therapy Assessment History: The following factors influence the patient's participation in the PT plan of care: Personal factors: limited compliance, decreased insight, impulsive behavior, age and body habitus Environmental factors: steps to enter home, lives alone, no local family, family unavailable to assist and lack of transportation The following co-morbidities (from this admission or prior) influence the patient's participation in this plan of care: neuropathy, decreased balance, decreased endurance, decreased strength Number of History elements affecting this patient's PT plan of care: 1-2 Examination of Body Systems: The patient presents with impairments of strength, ROM, pain, functional endurance. These impairments result in limitations of gait, functional transfers, stair-climbing, safety awareness, wheelchair mobility, activity tolerance and insight. These impairments result in restrictions of household mobility, community mobility and leisure activities. Number of Body Systems elements affecting this patient's PT plan of care: 1-2 Clinical Presentation: The patient's clinical presentation for this PT evaluation is stable as evidenced by current PT documentation. Activity Tolerance Therapy Precautions Weight Bearing Status: X RLE: Non Wt bearing General Rehab Precautions: Fall risk(contact prec.) Balance Sitting Balance - Static: (good) Standing Balance - Static: (fair- with UE support) Bed Mobility Rolling: Modified independence Supine to Sit: Modified independence Sit to Supine: Modified Thomas Transfers Sit to Stand: Stand by assistance(needs cues for NWB of right LE) Bed to Chair: Contact guard(with walker) Stand Pivot Transfers: Contact guard Media Monitor: Wheeled walker Gait/Locomotion Gait Assistance: Contact guard Assistive Device: Wheeled walker Distance: 17 Feet Pattern: Step to Weight Bearing Status: Able to maintain Exercise Home Living Type of Home: House Home Layout: (unsure of where she is going to live, lives on box truck) Bathroom Shower/Tub: Tub/shower unit Home Equipment: (has shower chair) Prior Level of Function Level of Thomas: Independent with ADLs and functional transfers, Independent with homemaking with ambulation Lives With: Significant other ADL Assistance: Independent Homemaking Assistance: Independent Vocational: Unemployed Leisure: (watch tv, reading, color, hang out with her son) Comments: inpd without AD Past Medical History: Diagnosis Date Acid reflux Diabetes mellitus (HCC) Diabetes mellitus, type 2 (HCC) Disease of thyroid gland hypothyroidism Fibromyalgia Hyperlipidemia Past Surgical History: Procedure Laterality Date APPENDECTOMY TONSILLECTOMY TUBAL LIGATION For complete objective data, detailed plan of care and patient education refer to: PT EVALUATION flow sheet, PT TREATMENT flow sheet, patient Plan of Care, Plan of Care progress note, and Patient Education. This note stands as the current Discharge Summary upon patient discharge from the hospital or completion of Physical Therapy Plan of Care. Patient ID: Patient Name: Maryanne Minaya Admit Date: 03/27/2019 MR #: [id number] : 1970 Current location: [facility] Physicians: Glenroy Queen MD (Family); Clarice Geronimo DPM (Referring) Reason for consult: Type 2 diabetes out of control Assessment/Plan: Dx: Type 2 diabetes, under poor control Currently taking: No oral hypoglycemic medications Humalog insulin: SS units at breakfast; SS units at lunch; SS units at supper Levemir insulin: 50 units at breakfast; 50 units at bedtime Current Hemoglobin A1C= Lab Results Component Value Date HGBA1C 14.3 (H) 03/28/2019 NOTES: Patient admitted 03/27 with diabetic foot wound on right great toe. Patient has been under the care of podiatry and ID. Patient's A1c 14.3% as an outpatient. Reports taking levemir 50 BID with SS humalog. This regimen was continued until yesterday when she was started on 12 humalog TID in addition to 50 lantus BID. Blood Glucoses: 03/29: 270---231---298---309 03/30: 216---___---281---339 03/31: 283 Plan: 1. Rx changes: none Humalog insulin: 12 units at breakfast; 12 units at lunch; 12 units at supper Lantus insulin: 50 units at breakfast; 50 units at bedtime 2. Education: Reviewed ABCs of diabetes management (respective goals in parentheses): A1C (7.0-8.0), blood pressure (<130/80), and cholesterol (LDL <100). Referral to Diabetes Education Referral to Nutrition therapy Subjective: Brief HPI: Ms. Minaya is a 48-year-old female with a past history of hypertension, hyperlipidemia, type 2 diabetes mellitus and fibromyalgia. Patient presented to [facility] on 03/27/2019 with complaints of right great toe wound. Patient reports she has not seen a seat pack inspector in several months this ulceration appeared approximately 2 months ago. Patient was admitted for further evaluation and treatment podiatry care and infectious disease management. Patient's blood glucose levels since admission have been elevated between 177-339 mg/dL. She reports blurred vision, no double vision. She reports pain in her foot. She does report numbness and tingling in her feet as well. She reports no recent weight gain. She has lost approximately 15 pounds she thinks. Patient has had diabetes for 20 years. Patient is reportedly taking Levemir 50 units BID and sliding scale as needed . Patient has taken Insulin for 20 years. Currently the patient is receiving Lantus and humalog. Blood sugar levels since admission have been ranging from 177-339 mg/dL. Complications of diabetes include: Retinopathy: Negative Nephropathy: Positive Peripheral Neuropathy: Positive Autonomic Neuropathy: Negative Allergies: Allergies Allergen Reactions Azithromycin Hives Clindamycin Hives Erythromycin Hives Home Medications: Current Facility-Administered Medications Medication Dose Route Frequency Provider Last Rate Last Dose acetaminophen (TYLENOL) tablet 650 mg 650 mg Oral Q4H PRN Yaritza Cain MD 650 mg at 03/30/19 0607 atorvastatin (LIPITOR) tablet 80 mg 80 mg Oral Daily Yaritza Cain MD 80 mg at 03/31/19 0926 DULoxetine (CYMBALTA) DR capsule 60 mg 60 mg Oral Daily Yaritza Cain MD 60 mg at 03/30/19 185 enoxaparin (LOVENOX) syringe 40 mg 40 mg Subcutaneous Daily Yaritza Cain MD 40 mg at 03/31/19 09 famotidine (PEPCID) tablet 20 mg 20 mg Oral BID Yaritza Cain MD 20 mg at 03/31/19 0926 hydroCHLOROthiazide (HYDRODIURIL) tablet 50 mg 50 mg Oral Daily Yaritza Cain MD 50 mg at 03/31/19 0926 HYDROcodone-acetaminophen (NORCO) 5-325 mg per tablet 1 tablet 1 tablet Oral Q4H PRN Yaritza Cain MD 1 tablet at 03/31/19 0936 hydrOXYzine (ATARAX) tablet 100 mg 100 mg Oral Nightly PRN Maggy Kimbrough CNP 100 mg at 03/29/19 185 insulin glargine (LANTUS) injection 50 Units 50 Units Subcutaneous BID Dominick Santos MD 50 Units at 03/31/19 09 insulin lispro (HumaLOG) injection 0-15 Units 0-15 Units Subcutaneous at bedtime Dominick Santos MD 2 Units at 03/29/19 2214 insulin lispro (HumaLOG) injection 0-30 Units 0-30 Units Subcutaneous TID Destiny Harris MD levothyroxine (SYNTHROID, LEVOTHROID) tablet 112 mcg 112 mcg Oral Daily Yaritza Cain MD 112 mcg at 03/31/19 0926 lisinopril (PRINIVIL,ZESTRIL) tablet 20 mg 20 mg Oral Daily Yaritza Cain MD 20 mg at 03/31/19 0926 naloxone (NARCAN) injection 0.1 mg 0.1 mg Intravenous PRN Yaritza Cain MD naloxone (NARCAN) injection 0.4 mg 0.4 mg Intravenous PRN Yaritza Cain MD piperacillin-tazobactam (ZOSYN) IVPB 3.375 g (premix) 3.375 g Intravenous Q8H Yaritza Cain MD 12.5 mL/hr at 03/31/19 0551 3.375 g at 03/31/19 0551 pregabalin (LYRICA) capsule 100 mg 100 mg Oral Daily Dominick Santos MD 100 mg at 03/30/19 1855 sodium chloride (PF) (NS) flush 5 mL 5 mL Intravenous PRN Isaac Duran PA-C And sodium chloride 0.9% (NS) 0-150 mL/hr Intravenous PRN Isaac Duran PA-C sodium chloride 0.9% (NS) 100 mL/hr Intravenous Continuous Yaritza Cain MD 100 mL/hr at 03/31/19 0700 100 mL/hr at 03/31/19 0700 traZODone (DESYREL) tablet 25 mg 25 mg Oral Nightly Yaritza Cain MD 25 mg at 03/30/19 1855 vancomycin (VANCOCIN) 1750 mg in sodium chloride 0.9% (NS) 500 mL IVPB 1,750 mg Intravenous Q12H Ryan Crowley Jr., [facility],PharmD 250 mL/hr at 03/31/19 0700 vancomycin per pharmacy 1 each 1 each Intravenous as indicated by pharmacokinetics Yaritza Cain MD Current Medications: atorvastatin 80 mg Oral Daily DULoxetine 60 mg Oral Daily enoxaparin (LOVENOX) injection 40 mg Subcutaneous Daily famotidine 20 mg Oral BID hydroCHLOROthiazide 50 mg Oral Daily insulin glargine 50 Units Subcutaneous BID lispro insulin 0-15 Units Subcutaneous at bedtime insulin lispro 0-30 Units Subcutaneous TID AC levothyroxine 112 mcg Oral Daily lisinopril 20 mg Oral Daily piperacillin-tazobactam (ZOSYN) extended infusion 3.375 g Intravenous Q8H pregabalin 100 mg Oral Daily traZODone 25 mg Oral Nightly vancomycin 1,750 mg Intravenous Q12H vancomycin per pharmacy 1 each Intravenous as indicated by pharmacokinetics acetaminophen, HYDROcodone-acetaminophen, hydrOXYzine, nalOXone, naloxone, [COMPLETED] Insert peripheral IV AND Saline lock IV AND sodium chloride (PF) AND sodium chloride 0.9 % Review of Systems: Review of Systems Constitutional: Positive for fatigue and unexpected weight change (weight loss). Eyes: Negative for visual disturbance. Respiratory: Negative for cough and shortness of breath. Cardiovascular: Negative for chest pain and leg swelling. Gastrointestinal: Negative for abdominal pain, constipation, diarrhea, nausea and vomiting. Endocrine: Negative for polydipsia, polyphagia and polyuria. Genitourinary: Negative for frequency and urgency. Skin: Positive for color change and wound. Neurological: Positive for weakness and numbness (and tingling). Negative for headaches. Psychiatric/Behavioral: Negative for agitation and sleep disturbance. The patient is not nervous/anxious. History: Past Medical History: Diagnosis Date Acid reflux Diabetes mellitus (HCC) Diabetes mellitus, type 2 (HCC) Disease of thyroid gland hypothyroidism Fibromyalgia Hyperlipidemia Past Surgical History: Procedure Laterality Date APPENDECTOMY TONSILLECTOMY TUBAL LIGATION Family History Problem Relation Age of Onset Thyroid disease Mother Diabetes Maternal Aunt Diabetes Maternal Uncle Cancer Maternal Grandfather Heart disease Paternal Grandmother Social History Tobacco Use Smoking status: Current Every Day Smoker Packs/day: 0.25 Years: 30.00 Pack years: 7.50 Types: Cigarettes Smokeless tobacco: Never Used Substance Use Topics Alcohol use: Never Frequency: Never Drug use: Never The following portions of the patient's history were reviewed and updated as appropriate: allergies, current medications, past family history, past medical history, past social history, past surgical history and problem list. Objective: BP 110/60 (Patient Position: Sitting) Pulse 80 Temp 97.3 F (36.3 C) (Oral) Resp 16 Ht 5' 5 Wt 93 kg (205 lb 0.4 oz) SpO2 97% BMI 34.12 kg/m Wt Readings from Last 3 Encounters: 03/28/19 93 kg (205 lb 0.4 oz) 03/28/19 93 kg (205 lb 0.4 oz) 03/09/19 96.6 kg (213 lb) Physical Exam: Physical Exam Constitutional: She is oriented to person, place, and time. She appears well-developed and well-nourished. HENT: Head: Normocephalic and atraumatic. Eyes: Pupils are equal, round, and reactive to light. Conjunctivae are normal. Neck: Normal range of motion. Neck supple. No thyromegaly present. Cardiovascular: Normal rate, regular rhythm, normal heart sounds and intact distal pulses. Exam reveals no friction rub. No murmur heard. Pulmonary/Chest: Effort normal and breath sounds normal. No respiratory distress. She has no wheezes. Abdominal: Soft. Bowel sounds are normal. She exhibits no distension. Musculoskeletal: Normal range of motion. She exhibits no edema. Neurological: She is alert and oriented to person, place, and time. Skin: Skin is warm and dry. Dressing intact to RLE. Patient reprots [id number] wound. Psychiatric: She has a normal mood and affect. Her behavior is normal. Judgment and thought content normal. Laboratory Review: BP 110/60 (Patient Position: Sitting) Pulse 80 Temp 97.3 F (36.3 C) (Oral) Resp 16 Ht 5' 5 Wt 93 kg (205 lb 0.4 oz) SpO2 97% BMI 34.12 kg/m Lab Results Component Value Date HGBA1C 14.3 (H) 03/28/2019 Glucose (mg/dL) Date Value 03/31/2019 277 (H) Creatinine (mg/dL) Date Value 03/31/2019 0.54 No results found for: CHOL, TRIG, HDL, LDLCALC, LDL No results found for: TSH No results found for: FREET4 Lab Results Component Value Date WBC 7.95 03/31/2019 HGB 12.0 03/31/2019 HCT 37.9 03/31/2019 MCV 88.6 03/31/2019 PLT 276 03/31/2019 This SmartLink has not been configured with any valid records. This SmartLink has not been configured with any valid records. Laboratory and Additional Data Reviewed: Laboratory 03/31/19 11:16 AM Medications 03/31/19 11:16 AM Transcriptions 03/31/19 11:16 AM Thank you for this consultation, we will continue to follow this patient with you. Nigel Chino CNP Associated Order(s): IP CONSULT TO CARE MANAGEMENT COMPLEX DISCHARGE Date: 03/29/2019 Time: 3:52 PM Patient Name: Maryanne Minaya Date of : 1970 Sex: Female Initial assessment completed with patient. Patient educated to social work role. Patient Dx is Diabetic Foot . Patient is from home with spouse and plans to return at discharge. Patient has PCP Dr. Queen [facility] and is currently inpatient status. Patient will likely use family for transportation. Patient has no reported DME, but was driving prior to hospitalization. Patient to have MRI completed, as she was unable to follow through due to pain today. No indication of abuse or neglect. No further needs identified. CC following. Discharge Plan Shared UM/CC and RN Source of Information: Patient Living Arrangements: Spouse/significant other Support Systems: Spouse/significant other, Family members Functional Status: Independent Type of Residence: Private residence Prior to Admission Home Care Services: No Current Home Equipment: None Insurance Coverage for Prescriptions: Yes Discharge Readiness Barriers to Discharge: No barriers [facility] Disposition D/C Disposition: Home Reason for Choice: Patient/Family prefernce Associated Order(s): IP CONSULT TO PODIATRY PODIATRY CONSULTATION Patient Name: Maryanne Minaya. . Date of : 1970, 48 y.o.. Gender: female. Date of Consultation: 03/28/2019. Author: Charley James Thank you Yaritza Cain MD for this consultation. We appreciate the opportunity to help care for your patient. Below you will find our findings and recommendations: Reason for Consultation: Right foot ulcer, possible osteo Assessment: 48 y.o. female with the following pedal anomalies: 1. DM with neuropathy 2. Fibromyalgia 3. Right hallux ulceration, rule out osteomyelitis Plan: Patient was seen and evaluated at the bedside, I discussed the findings with the patient. Patient was given opportunity to ask questions. Patient elects to have the following treatment as follows: Patient examined and evaluated Discussed all clinical and radiographic findings Radiographs suggestive of subtle osteolysis the clinically corresponds with the location of the wound Educated patient on the etiology of osteomyelitis and likelihood of underlying osteomyelitis Inflammatory markers are grossly elevated, ESR 57, CRP 110 which correspond with osteomyelitis MRI is ordered to rule out osteomyelitis Patient was given treatment options for osteomyelitis including 6 weeks of IV antibiotics versus amputation to remove the nidus of infection She wants to consider her options after the MRI and determine course of therapy she would like to take Continue antibiotics for systemic infection Appreciate infectious disease assistance, currently on vancomycin and Zosyn New hemoglobin A1c ordered Betadine wet-to-dry to right foot daily We will continue to follow Thank you for this consult and allowing us to participate in this patient's care History of Present Illness: Patient is a 48 y.o. female consulted to the Podiatry Service for right hallux ulceration.Patient states that the ulcer began approximately 2 months ago. She was seeing a seat pack inspector in [place] where she was residing, has now moved to the area due to a new boyfriend. 2 weeks ago she was in the emergency room with worsening appearance of the ulceration. She was placed on antibiotics and followed up with a seat pack inspector locally. She lost her antibiotics and never followed up. Over the past few days has had worsening of her right toe swelling pain and drainage. She began feeling quite ill yesterday with fever chills and nausea. Temperature was 102 on admission with associated nausea and vomiting. No rigors, diarrhea chest pain or shortness of breath. She denies trauma to the area. Has a pre-ulcerative callus on the left foot as well. Estimated body mass index is 34.12 kg/m as calculated from the following: Height as of this encounter: 5' 5 . Weight as of this encounter: 93 kg (205 lb 0.4 oz). Allergies: Allergies Allergen Reactions Azithromycin Hives Clindamycin Hives Erythromycin Hives . Scheduled Meds: atorvastatin 80 mg Oral Daily DULoxetine 60 mg Oral Daily enoxaparin (LOVENOX) injection 40 mg Subcutaneous Daily famotidine 20 mg Oral BID hydroCHLOROthiazide 50 mg Oral Daily insulin glargine 40 Units Subcutaneous QAM lispro insulin 0-15 Units Subcutaneous at bedtime insulin lispro 0-30 Units Subcutaneous QAM AC levothyroxine 112 mcg Oral Daily lisinopril 20 mg Oral Daily piperacillin-tazobactam (ZOSYN) extended infusion 3.375 g Intravenous Q8H pregabalin 25 mg Oral Daily traZODone 25 mg Oral Nightly vancomycin 1,750 mg Intravenous Q12H vancomycin per pharmacy 1 each Intravenous as indicated by pharmacokinetics . Continuous Infusions: sodium chloride 0.9 % sodium chloride 0.9 % 100 mL/hr (03/28/19 0602) . PRN Meds: acetaminophen, HYDROcodone-acetaminophen, nalOXone, naloxone, ondansetron, [COMPLETED] Insert peripheral IV AND Saline lock IV AND sodium chloride (PF) AND sodium chloride 0.9 %. Medical History: Past Medical History: Diagnosis Date Acid reflux Diabetes mellitus (HCC) Disease of thyroid gland hypothyroidism Fibromyalgia Hyperlipidemia . Surgical History: Past Surgical History: Procedure Laterality Date APPENDECTOMY TONSILLECTOMY TUBAL LIGATION . Social History: Social History Socioeconomic History Marital status: Legally Spouse name: Not on file Number of children: Not on file Years of education: Not on file Highest education level: Not on file Occupational History Not on file Social Needs Financial resource strain: Not on file Food insecurity: Worry: Not on file Inability: Not on file Transportation needs: Medical: Not on file Non-medical: Not on file Tobacco Use Smoking status: Current Every Day Smoker Packs/day: 0.25 Years: 30.00 Pack years: 7.50 Types: Cigarettes Smokeless tobacco: Never Used Substance and Sexual Activity Alcohol use: Never Frequency: Never Drug use: Never Sexual activity: Yes Partners: Male Lifestyle Physical activity: Days per week: Not on file Minutes per session: Not on file Stress: Not on file Relationships Social connections: Talks on phone: Not on file Gets together: Not on file Attends baptism service: Not on file Active member of club or organization: Not on file Attends meetings of clubs or organizations: Not on file Relationship status: Not on file Other Topics Concern Not on file Social History Narrative Not on file Family History: History reviewed. No pertinent family history. Review of Systems: Pertinent positives and negatives as mentioned above, otherwise full review of systems is negative unless mentioned below: Patient currently denies Nausea/Vomiting/Fever/Chills/Shortness of Breath/Chest Pain. Physical Examination: BP 94/64 Pulse 84 Temp 98.6 F (37 C) (Oral) Resp 18 Ht 5' 5 Wt 93 kg (205 lb 0.4 oz) LMP 02/26/2019 SpO2 95% BMI 34.12 kg/m General Appearance: Alert, cooperative, no distress, appears older than stated age. Podiatric Exam Vascular: Peripheral pulses are palpable at 2 out of 4 for the right dorsalis pedis pulse, 2 out of 4 for the left dorsalis pedis pulse, 2 out of 4 the right posterior tibial pulse, 2 out of 4 for the left posterior tibial pulse. CFT is less than 3 seconds bilaterally. Skin temperature is warm to hot proximal to distal on right. Lower extremity edema non-pitting is observed to the right lower extremities. Neurological: Epicritic sensation is grossly absent bilateral via light touch. Babinski test is plantigrade bilaterally. Achilles reflex is present bilateral. Patient is able to follow 2-step commands. No gross motor deficit appreciated at this time bilateral lower extremities. Dermatologic: Integument is intact bilateral lower extremity with the exception of wound noted to right 1st toe. Wound measures 1 cm x 1 cm x 1 cm. Wound base is Mixed fibro-granular. Toenails 1 through 5 are thickened, elongated, and dystrophic with pain on palpation. Webspaces 1-4 bilaterally are clean, dry, and intact. Musculoskeletal: Range of motion of the lower extremity at the ankle is diminished range of motion. Muscle strength is 5/5 for all muscle groups . Pain is present on palpation to 1 PIP joint severe pain on the right. Laboratory Data: Lab Results Component Value Date WBC 8.24 03/28/2019 HGB 11.9 (L) 03/28/2019 HCT 36.4 03/28/2019 PLT 231 03/28/2019 BUN 11 03/28/2019 CREATININE 0.58 03/28/2019 CRP 110.0 (H) 03/28/2019 SEDRATE 57 (H) 03/28/2019 Radiographs: 03/28 1. Subtle osteolysis of the lateral aspect of the proximal phalanx of 1st digit with soft tissue defect along the plantar surface of the 1st digit concerning for infection of the soft tissue as well as probably osteomyelitis. Further evaluation with 3-phase bone scan or MRI could be performed. 2. No definite fractures or dislocations. Again, thank you for the opportunity to help care for your patient. Charley James Patient Name: Maryanne Minaya MR #: [id number] : 1970 Physicians: Glenroy Queen MD (Family); Dee Marx DO (Referring) Chief complaint: Maryanne Minaya is a 48 y.o. female in with fever, right foot drainage pain. History: I have reviewed the patient's past medical history, past surgical history, family history, social history. Patient is seen today, she is no with history of uncontrolled diabetes, and thyroid disease, she is also no with history of hyperlipidemia. She had presented about 1 day ago with worsening history of right big toe swelling and pain and drainage. She said that has been going on for quite some while, it all started like a callus and she removed the callus she had some associated fever, temperature was said to be up to 102 on admission, she also had associated nausea and vomiting. But denied any diarrhea or abdominal pain. She was found on admission with no obvious leukocytosis had a wound culture which had shown previously Enterococcus faecalis and Staphylococcus methicillin-resistant. She had been followed previously by the seat pack inspector from the office. Empirically she has been started on IV antibiotics with vancomycin and Zosyn, evaluation is for suspected osteomyelitis of the right big toe ulceration and cellulitis and also for antibiotics management. Past Medical History: Diagnosis Date Acid reflux Diabetes mellitus (HCC) Disease of thyroid gland hypothyroidism Fibromyalgia Hyperlipidemia Past Surgical History: Procedure Laterality Date APPENDECTOMY TONSILLECTOMY TUBAL LIGATION History reviewed. No pertinent family history. Social History Socioeconomic History Marital status: Legally Spouse name: Not on file Number of children: Not on file Years of education: Not on file Highest education level: Not on file Occupational History Not on file Social Needs Financial resource strain: Not on file Food insecurity: Worry: Not on file Inability: Not on file Transportation needs: Medical: Not on file Non-medical: Not on file Tobacco Use Smoking status: Current Every Day Smoker Packs/day: 0.25 Years: 30.00 Pack years: 7.50 Types: Cigarettes Smokeless tobacco: Never Used Substance and Sexual Activity Alcohol use: Never Frequency: Never Drug use: Never Sexual activity: Yes Partners: Male Lifestyle Physical activity: Days per week: Not on file Minutes per session: Not on file Stress: Not on file Relationships Social connections: Talks on phone: Not on file Gets together: Not on file Attends baptism service: Not on file Active member of club or organization: Not on file Attends meetings of clubs or organizations: Not on file Relationship status: Not on file Other Topics Concern Not on file Social History Narrative Not on file Medications: I have reviewed the patient's medications. Scheduled Meds: atorvastatin 80 mg Oral Daily DULoxetine 60 mg Oral Daily enoxaparin (LOVENOX) injection 40 mg Subcutaneous Daily famotidine 20 mg Oral BID hydroCHLOROthiazide 50 mg Oral Daily insulin glargine 40 Units Subcutaneous QAM lispro insulin 0-15 Units Subcutaneous at bedtime insulin lispro 0-30 Units Subcutaneous QAM AC levothyroxine 112 mcg Oral Daily lisinopril 20 mg Oral Daily piperacillin-tazobactam (ZOSYN) extended infusion 3.375 g Intravenous Q8H pregabalin 25 mg Oral Daily traZODone 25 mg Oral Nightly vancomycin 1,750 mg Intravenous Q12H vancomycin per pharmacy 1 each Intravenous as indicated by pharmacokinetics Allergy Information: I have reviewed the patient's allergies. Azithromycin; Clindamycin; and Erythromycin Review of Systems: Review of Systems Constitutional: Positive for chills and fever. Negative for fatigue. Respiratory: Negative for cough, shortness of breath and wheezing. Cardiovascular: Negative for chest pain, palpitations and leg swelling. Gastrointestinal: Positive for nausea and vomiting. Negative for abdominal distention, abdominal pain, constipation and diarrhea. Endocrine: Negative for polydipsia, polyphagia and polyuria. Genitourinary: Negative for dysuria, flank pain, frequency and hematuria. Musculoskeletal: Negative for joint swelling, neck pain and neck stiffness. Skin: Positive for wound. Negative for color change, pallor and rash. Right big toe ulceration Neurological: Negative for dizziness, weakness, numbness and headaches. Psychiatric/Behavioral: Negative for confusion. Labs: Lab Results Component Value Date WBC 8.24 03/28/2019 HGB 11.9 (L) 03/28/2019 HCT 36.4 03/28/2019 MCV 88.1 03/28/2019 PLT 231 03/28/2019 No results found for: HGBA1C No results found for: SEDRATE No results found for: CRP Radiology: Physical Examination: Vital Signs: BP (!) 90/56 Pulse 88 Temp 98.8 F (37.1 C) (Oral) Resp 18 Ht 5' 5 Wt 93 kg (205 lb 0.4 oz) LMP 02/26/2019 SpO2 94% BMI 34.12 kg/m Physical Exam Constitutional: She is oriented to person, place, and time. She appears well-developed and well-nourished. Patient sleepy HENT: Head: Normocephalic. Eyes: Pupils are equal, round, and reactive to light. Left eye exhibits no discharge. Neck: Normal range of motion. Neck supple. Cardiovascular: Normal rate, regular rhythm and normal heart sounds. Pulmonary/Chest: No respiratory distress. She has no wheezes. She has no rales. She exhibits no tenderness. Abdominal: She exhibits no distension. There is no tenderness. There is no rebound. Musculoskeletal: She exhibits no edema or tenderness. Right big toe with some erythema, and swelling. Plantar aspect of right big toe has ulceration, warm to palpation. Dorsalis pedis pulses were palpable. Neurological: She is alert and oriented to person, place, and time. Skin: Skin is warm. No rash noted. No pallor. Psychiatric: She has a normal mood and affect. Her behavior is normal. Thought content normal. Assessment and Plan: Patient with 1. Possible osteomyelitis of the right big toe 2. Chronic ulceration of the right big toe 3. Cellulitis of the right foot. 4. Fever 5. Uncontrolled diabetes Plan. Continue patient on current therapy Patient currently on vancomycin intravenously Have Vanco trough level of 15-20 maintained Patient on Zosyn, will de-escalate as soon as possible Have seat pack inspector reevaluate patient, Get wound culture, and blood culture Endocrinology evaluation recommended MRI of the foot recommended ESR, C-reactive protein, We will follow-up labs and blood culture. Problem List Items Addressed This Visit None Visit Diagnoses Diabetic ulcer of toe of right foot associated with type 2 diabetes mellitus, with bone involvement without evidence of necrosis (HCC) - Primary Relevant Medications insulin glargine (LANTUS) injection 40 Units insulin lispro (HumaLOG) injection 0-15 Units (Start on 03/28/2019 9:00 PM) insulin lispro (HumaLOG) injection 0-30 Units insulin glargine (LANTUS U-100 INSULIN) 100 unit/mL injection insulin lispro (HumaLOG U-100 Insulin) 100 unit/mL injection I have taken time to review patient's information and having discussions, I appreciate seeing your patient, will continue to follow with you, and adjust with more information. Medical decision making. Moderate documented in this encounter OR PreOp - Lacie Pastrana CNP - 04/02/2019 7:26 AM EDT OR Notes (unrecognized secti on and content) ANESTHESIA PREPROCEDURE EVALUATION Review of Systems / Medical History Pulmonary - negative Neurological / Psychological Positive: neuromuscular disease (Fibromyalgia; peripheral neuropathy) depression, anxiety Cardiovascular Positive: hyperlipidemia Gastrointestinal / Hepatic / Renal Positive: GERD Endocrine / Musculoskeletal Comment: Right great toe osteomyelitis to distal and proximal phalanx with septic interphalangeal joint per MRI Positive: diabetes poorly controlled hypothyroidism, obesity Other Positive: a smoker Per Chart Review documented in this encounter Esteban Bucio RN - 03/28/2019 2:31 AM ALFREDOTEsteban Bucio RN - 03/28/2019 2:27 AM Isaac Leigh PA-C - 03/28/2019 2:00 AM Vivienne Nunn LPN - 03/28/2019 1:31 AM EDT ED Notes (unrecognized secti on and content) Food given per isaac lyn with that per pt request Isaac amador. [facility] ED Provider Note: NAME: Maryanne Minaya 48 y.o. CSN: [id number] PCP: Glenroy Queen MD History: Chief Complaint: Foot Injury HPI: The history was obtained from the patient. She is a 48 y.o. female who presents with a chief complaint of Foot Injury. Patient states she is here tonight with a nonhealing wound on her right great toe. She states that she picked a callus off of it about 2 months ago and is been dealing with it ever since it is now developed an ulceration with a foul-smelling discharge her entire toe and forefoot is erythematous and painful. She states she is diabetic and her sugars been running high. She was seeing a seat pack inspector in [place] and then a seat pack inspector here at [place] and then the wound clinic but none of these things are helping and it seems to be getting worse. States she has had fevers at home she finished Bactrim and Keflex 2 days ago and is gotten worse since finishing the antibiotics. PMHx: Past Medical History: Diagnosis Date Acid reflux Diabetes mellitus (HCC) Disease of thyroid gland hypothyroidism Fibromyalgia Hyperlipidemia PMSx: Past Surgical History: Procedure Laterality Date APPENDECTOMY TUBAL LIGATION FAM. Hx: History reviewed. No pertinent family history. SOC. Hx: Social History Socioeconomic History Marital status: Legally Spouse name: Not on file Number of children: Not on file Years of education: Not on file Highest education level: Not on file Occupational History Not on file Social Needs Financial resource strain: Not on file Food insecurity: Worry: Not on file Inability: Not on file Transportation needs: Medical: Not on file Non-medical: Not on file Tobacco Use Smoking status: Current Every Day Smoker Packs/day: 0.50 Types: Cigarettes Smokeless tobacco: Never Used Substance and Sexual Activity Alcohol use: Never Frequency: Never Drug use: Never Sexual activity: Not on file Lifestyle Physical activity: Days per week: Not on file Minutes per session: Not on file Stress: Not on file Relationships Social connections: Talks on phone: Not on file Gets together: Not on file Attends baptism service: Not on file Active member of club or organization: Not on file Attends meetings of clubs or organizations: Not on file Relationship status: Not on file Other Topics Concern Not on file Social History Narrative Not on file MEDs: Previous Medications Medication Sig atorvastatin (LIPITOR) 80 MG tablet Take 80 mg by mouth daily . DULoxetine (CYMBALTA) 60 MG capsule Take 60 mg by mouth every morning . famotidine (PEPCID) 20 MG tablet Take 20 mg by mouth 2 (two) times a day . hydroCHLOROthiazide (HYDRODIURIL) 50 MG tablet Take 50 mg by mouth daily . insulin aspart U-100 (NovoLOG) 100 unit/mL injection Inject under the skin 3 (three) times a day before meals . insulin detemir (LEVEMIR FLEXPEN SUBQ) Inject 50 Units under the skin 2 (two) times a day . levothyroxine (SYNTHROID, LEVOTHROID) 112 MCG tablet Take 112 mcg by mouth daily . lisinopril (PRINIVIL,ZESTRIL) 20 MG tablet Take 20 mg by mouth daily . pregabalin (LYRICA) 25 MG capsule 25 mg . traZODone (DESYREL) 50 MG tablet TAKE 1-2 TABLET AT BEDTIME NEEDED ALL: Allergies Allergen Reactions Azithromycin Hives Clindamycin Hives Erythromycin Hives ROS: Positives and pertinent negatives as per HPI. All other systems were reviewed and are negative. Physical Exam: Patient Vitals for the past 24 hrs: BP Temp Temp src Pulse Resp SpO2 Height Weight 03/28/19 0227 101/60 93 (!) 20 96 % 03/28/19 0131 99.8 F (37.7 C) 03/28/19 0004 5' 5 96.6 kg (213 lb) 03/27/19 2352 108/75 (!) 102 F (38.9 C) Oral (!) 117 (!) 20 96 % Physical Exam Constitutional: She is oriented to person, place, and time. She appears well-developed and well-nourished. No distress. HENT: Head: Normocephalic and atraumatic. Eyes: Conjunctivae and EOM are normal. Neck: Normal range of motion. Neck supple. Cardiovascular: Normal rate, regular rhythm and normal heart sounds. Pulmonary/Chest: Effort normal and breath sounds normal. No respiratory distress. Abdominal: Soft. She exhibits no distension. There is no tenderness. Musculoskeletal: Normal range of motion. She exhibits no tenderness or deformity. Patient's right foot is erythematous and swollen from the midfoot down to the toes with the greatest amount of swelling and erythema being at the great toe. There is an open ulceration 1 x 2 cm on the plantar medial aspect of the toe. There is a yellow discharge coming from the wound and a foul smell. Neurological: She is alert and oriented to person, place, and time. No cranial nerve deficit. She exhibits normal muscle tone. Coordination normal. Skin: Skin is warm. No rash noted. Psychiatric: She has a normal mood and affect. Her behavior is normal. Judgment and thought content normal. Nursing note and vitals reviewed. Laboratory & Radiological Imaging (if done): Labs Reviewed BASIC METABOLIC PANEL - Abnormal; Notable for the following components: Result Value Potassium 3.4 (*) Glucose 213 (*) All other components within normal limits Narrative: The eGFR should be used for monitoring renal function only and not for medication dosing. HEPATIC FUNCTION PANEL - Abnormal; Notable for the following components: Albumin 2.7 (*) ALT 12 (*) All other components within normal limits LIPASE - Abnormal; Notable for the following components: Lipase 69 (*) All other components within normal limits CBC WITH AUTO DIFFERENTIAL - Abnormal; Notable for the following components: Neutrophils Abs 9.17 (*) All other components within normal limits LACTIC ACID, PLASMA - Normal ALCOHOL, MEDICAL - Normal HCG, SERUM, QUALITATIVE - Normal Narrative: Negative: The result is less than or equal to 5 mIU/mL of HCG. BLOOD CULTURE AEROBIC/ANAEROBIC BLOOD CULTURE AEROBIC/ANAEROBIC CBC AND DIFFERENTIAL Narrative: The following orders were created for panel order CBC w/ Diff. Procedure Abnormality Status --------- ------ CBC Auto Differential[[id number]] Abnormal Final result Please view results for these tests on the individual orders. TROPONIN TROPONIN URINALYSIS XR Foot Right 3+ Views (Standard) Non-public Result 1. Subtle osteolysis of the lateral aspect of the proximal phalanx of 1st digit with soft tissue defect along the plantar surface of the 1st digit concerning for infection of the soft tissue as well as probably osteomyelitis. Further evaluation with 3 phase in post scan or MRI could be performed. 2. No definite fractures or dislocations. Workstation ID: [id number] EKG Patient had an EKG which was interpreted by the attending physician to show normal sinus rhythm at a rate of 93min. Gaston was normal, and no evidence of acute ST or T-wave changes, and no STEMI. An old EKG to compare it to was not available. Procedures: Procedures ED Course / Medical Decision Making: Patient will be admitted for further evaluation and antibiotic treatment. X-rays do show some osteomyelitis beginning to form in the distal phalanx. Laboratory evaluation shows no significantly elevated WBC or a lactic acid but I still feel like she would definitely benefit from IV antibiotics and admission and further evaluation from podiatry they will likely need to do some debridement of the area. She was admitted in stable condition Clinical Impression: SNOMED CT(R) 1. 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 EKG DELAY D/T CRITICAL PT ARRIVAL, OTHER RN DOING EKG. PT PICKED CALLOUS MONTH AGO, STATES HAS HOLE IN R FOOT GREAT TOE, HAS BANDAGE ON IT, AND HAS LEAKAGE THROUGH IT. documented in this encounter Toe cleaned and dressing applied. Pt tolerated well. Per Lab - critical glucose of 470. Physician aware. Associated Order(s): EKG 12-lead ED PROVIDER NOTE [facility] EMERGENCY DEPARTMENT NAME: Maryanne Minaya AGE: 48 y.o. : 1970 VISIT DATE: 03/09/2019 CSN: [id number] PCP: Glenroy Queen MD Chief Complaint Patient presents with Toe Pain Skin Ulcer She has an ulcer on her right great toe for over a month. She was initially treated with an antibiotic but it is not healing. She now feels like there is infection all through me. She last checked her blood sugar 2 or 3 days ago and it was 240, which is not too bad for me. Past Medical History: Diagnosis Date Acid reflux Diabetes mellitus (HCC) Disease of thyroid gland hypothyroidism Fibromyalgia Hyperlipidemia Past Surgical History: Procedure Laterality Date APPENDECTOMY TUBAL LIGATION History reviewed. No pertinent family history. Social History Socioeconomic History Marital status: Legally Spouse name: Not on file Number of children: Not on file Years of education: Not on file Highest education level: Not on file Occupational History Not on file Social Needs Financial resource strain: Not on file Food insecurity: Worry: Not on file Inability: Not on file Transportation needs: Medical: Not on file Non-medical: Not on file Tobacco Use Smoking status: Current Every Day Smoker Packs/day: 0.50 Types: Cigarettes Smokeless tobacco: Never Used Substance and Sexual Activity Alcohol use: Never Frequency: Never Drug use: Never Sexual activity: Not on file Lifestyle Physical activity: Days per week: Not on file Minutes per session: Not on file Stress: Not on file Relationships Social connections: Talks on phone: Not on file Gets together: Not on file Attends baptism service: Not on file Active member of club or organization: Not on file Attends meetings of clubs or organizations: Not on file Relationship status: Not on file Other Topics Concern Not on file Social History Narrative Not on file Previous Medications Medication Sig insulin aspart U-100 (NovoLOG) 100 unit/mL injection Inject under the skin 3 (three) times a day before meals . insulin detemir (LEVEMIR FLEXPEN SUBQ) Inject 50 Units under the skin 2 (two) times a day . pregabalin (LYRICA) 25 MG capsule 25 mg . atorvastatin (LIPITOR) 80 MG tablet Take 80 mg by mouth daily . DULoxetine (CYMBALTA) 60 MG capsule Take 60 mg by mouth every morning . famotidine (PEPCID) 20 MG tablet Take 20 mg by mouth 2 (two) times a day . hydroCHLOROthiazide (HYDRODIURIL) 50 MG tablet Take 50 mg by mouth daily . levothyroxine (SYNTHROID, LEVOTHROID) 112 MCG tablet Take 112 mcg by mouth daily . lisinopril (PRINIVIL,ZESTRIL) 20 MG tablet Take 20 mg by mouth daily . traZODone (DESYREL) 50 MG tablet TAKE 1-2 TABLET AT BEDTIME NEEDED Allergies Allergen Reactions Azithromycin Hives Clindamycin Hives Erythromycin Hives Review of Systems Skin: Positive for wound. All other systems reviewed and are negative. Patient Vitals for the past 24 hrs: BP Temp Temp src Pulse Resp SpO2 Height Weight 03/09/19 1734 135/86 98.1 F (36.7 C) Oral (!) 102 18 97 % 5' 5 96.6 kg (213 lb) Physical Exam Constitutional: She is oriented to person, place, and time. She appears well-developed and well-nourished. HENT: Head: Normocephalic and atraumatic. Right Ear: External ear normal. Left Ear: External ear normal. Nose: Nose normal. Mouth/Throat: Oropharynx is clear and moist. Eyes: Conjunctivae and EOM are normal. Neck: Normal range of motion. Cardiovascular: Normal rate, regular rhythm and normal heart sounds. Pulmonary/Chest: Effort normal and breath sounds normal. Abdominal: Soft. She exhibits no distension. Musculoskeletal: Normal range of motion. Neurological: She is alert and oriented to person, place, and time. No cranial nerve deficit. Skin: Skin is warm and dry. The plantar aspect of the right great toe has a ulcer involving the skin and subcutaneous tissues. There is some erythema of the foot, but I am able to palpate a 1+ dorsalis pedis pulse in the right foot. Psychiatric: She has a normal mood and affect. Her behavior is normal. Nursing note and vitals reviewed. Laboratory & Radiographic Imaging (if done): Results for orders placed or performed during the hospital encounter of 03/09/19 BMP Result Value Ref Range Sodium 132 (L) 135 - 145 mmol/L Potassium 3.9 3.5 - 5.1 mmol/L Chloride 98 98 - 108 mmol/L Bicarbonate 27 21 - 32 mmol/L Anion Gap 11 10 - 20 mmol/L Glucose 470 (CH) 65 - 99 mg/dL BUN 19 8 - 25 mg/dL Creatinine 1.20 (H) 0.40 - 1.10 mg/dL eGFR 54 (L) >=60 mL/min/1.73 m2 BUN/Creatinine Ratio 15.8 10.0 - 20.0 Calcium 8.7 8.4 - 10.2 mg/dL Hepatic Function Panel (LFT) Result Value Ref Range Total Protein 7.4 6.0 - 8.0 g/dL Albumin 3.4 3.2 - 5.2 g/dL Total Bilirubin 0.7 0.0 - 1.3 mg/dL Bilirubin, Direct 0.2 0.0 - 0.4 mg/dL Alkaline Phosphatase 143 40 - 150 U/L AST 12 0 - 45 U/L ALT 22 14 - 65 U/L Troponin Result Value Ref Range Troponin I <15 <=45 ng/L Troponin I Interpretation Normal Lactic Acid, Plasma Result Value Ref Range Lactic Acid 1.3 0.6 - 2.0 mmol/L EKG 12-lead Result Value Ref Range Ventricular Rate 87 BPM Atrial Rate 87 BPM P-R Interval 150 ms QRS Duration 82 ms Q-T Interval 388 ms QTC Calculation (Bezet) 466 ms P Gaston 54 degrees R Gaston 77 degrees T Gaston 45 degrees CBC Auto Differential Result Value Ref Range WBC 8.99 4.50 - 11.00 K/mcL RBC 5.31 (H) 4.00 - 5.20 M/mcL Hemoglobin 15.3 12.0 - 16.0 g/dL Hematocrit 45.5 36.0 - 46.0 % MCV 85.7 80.0 - 100.0 fL MCH 28.8 26.0 - 34.0 pg MCHC 33.6 31.0 - 37.0 g/dL Platelets 271 150 - 400 K/mcL RDW - CV 13.4 11.6 - 14.8 % MPV 9.2 9.0 - 15.5 fL Neutrophils 62.5 % Lymphocytes 25.7 % Monocytes 9.1 % Eosinophils 2.2 % Basophils 0.2 % IG Percent 0.30 % Neutrophils Abs 5.61 1.70 - 7.00 K/mcL Lymphocytes Abs 2.31 0.90 - 4.00 K/mcL Monocytes Abs 0.82 0.30 - 0.90 K/mcL Eosinophils Abs 0.20 0.00 - 0.50 K/mcL Basophils Abs 0.02 0.00 - 0.30 K/mcL IG Absolute 0.03 0.00 - 0.30 K/mcL No orders to display EKG 12-lead Date/Time: 03/09/2019 6:36 PM Performed by: Ishmael Montgomery Jr., MD Authorized by: Ishmael Montgomery Jr., MD Interpreted by ED attending physician Previous ECG: no previous ECG available BPM: 87 Conduction: conduction normal ST Segments: ST segments normal T Waves: T waves normal Clinical impression: normal ECG MDM Number of Diagnoses or Management Options Diagnosis management comments: Patient will be instructed in wound care including keeping the area covered clean and dry; antibiotics will be initiated. Referral will be made to the wound care clinic at [facility]. Patient should follow-up with primary care physician within 48 to 72 hours or return and be reevaluated if there is change worsening or new concern that arises. She should treat her elevated blood sugar with her standard home sliding scale. The patient has been informed that they may have pre-hypertension or hypertension based on a blood pressure reading in the Emergency Department. I recommend that the patient call the primary care provider listed on their discharge instructions or a physician of their choice as soon as possible to arrange follow-up in the next 4 weeks for further evaluation of possible pre-hypertension or hypertension. . Clinical Impression: SNOMED CT(R) 1. 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 Follow-up Information 1. Glenroy Queen MD. Specialty: Family Medicine Why: CAM to schedule appointment in 1-3 days [address] [facility] [id number] 2. Jorge Luis Pettit MD. Specialty: Infectious Diseases Why: CAM to schedule appointment in 1-3 days [address] [facility] [address] [id number] Contact information for after-discharge care Follow-up information has not been specified. New Prescriptions cephALEXin (KEFLEX) 500 MG capsule Take 1 (one) capsule (500 mg total) by mouth 2 (two) times a day for 14 doses . sulfamethoxazole-trimethoprim (BACTRIM DS,SEPTRA DS) 800-160 mg per tablet Take 2 (two) tablets by mouth 2 (two) times a day for 14 doses . Ishmael Montgomery Jr., MD 03/09/191933 Report given to CHUCK Garcia. Multiple ulcerations noted on bilat arms/legs/back. Wound to toe demonstrates no obvious drainage. C/o R great toe infection x 1 month and multiple scabs/ulcerations to legs/hands from clindamycin use. Pt states she was treated previously for her toe infection at [facility] in [place] 1 month ago. Pt states she believes that the clindamycin is what caused the scabs/ulceration all over her body. Pt states her toe is more red today. Pain rated 8/10 currently. Pt unsure of any fevers. documented in this encounter Plan of Care - Berenice Corbin RN - 04/07/2019 6:12 AM EDTQurandall Note - Briseyda Welsh RN - 04/06/2019 8:00 AM EDTQurandall Note - Namrata Arango RN - 04/05/2019 8:27 PM EDT Miscellaneous Notes (unrecog nized section and content) Problem: Actual or potential alteration in health Goal: Absence of healthcare acquired conditions Outcome: Partially Met Goal: Knowledge of Interdisciplinary Plan of Care Outcome: Partially Met Goal: Knowledge of [employer] Outcome: Partially Met Problem: Pain Goal: Manage acute pain Outcome: Partially Met Goal: Manage chronic pain Outcome: Partially Met Goal: Reduced pain sensation Outcome: Partially Met Goal: Achievement of comfort function goal Outcome: Partially Met Problem: Falls, Risk of Goal: Absence of falls Outcome: Partially Met Problem: Isolation (Transmission Based Precautions) Goal: Able to perform proper infection control measures Outcome: Partially Met Goal: Knowledge of isolation precautions Outcome: Partially Met Problem: Skin Integrity - Impaired Goal: Wound healing Outcome: Partially Met Goal: Absence of new skin breakdown Outcome: Partially Met Isolation measures maintained, Dressing removed by Dr. Alcaraz . Right great toe sutures intact, Betadine applied and adaptic and wrapped with kerlex than jessica wrap, Pt tolerated well Patient c/o vaginal itching. States history of yeast infections. Maggy Kimbrough SWISS MACHINIST notified, new order for Diflucan 150 mg po OT dose. OCCUPATIONAL THERAPY VISIT VARIANCE NOTE Attempted to see patient at this time, but unable secondary to: OT Visit Variance: Patient Unavailable (comment)(PT waiting outside room to work w/pt after line is placed. Unable to complete OT evaluation today per above.). Will follow up as appropriate. [place] day 8 - pt is pod 3 - iv vanco d/c'd today - awaiting new orders for new atb - pt requesting intermediate facility at d/c - referrals made and are pending insurance auth - [facility] following Pharmacist notified of critical Vanco level of 48.4. Pt receiving IV ATBs. Pt to have line placed Friday and discharge with IV ATBs for 2 weeks MARYANNE MINAYA [facility] [id number] 1970 DATE 04/02/2019 OPERATIVE REPORT SURGEON ZEFERINO GERONIMO DPM PREOPERATIVE DIAGNOSES 1. Right great toe osteomyelitis. 2. Uncontrolled diabetes mellitus with hemoglobin A1c of 14.3. 3. Chronic ulcer, right great toe. POSTOPERATIVE DIAGNOSES 1. Right great toe osteomyelitis. 2. Uncontrolled diabetes mellitus with hemoglobin A1c of 14.3. 3. Chronic ulcer, right great toe. PROCEDURE PERFORMED Right great toe amputation at the level of the 1st metatarsophalangeal joint. ANESTHESIA Monitored anesthesia care with local block of 1% lidocaine plain and 0.5% Marcaine plain. HEMOSTASIS Right pneumatic ankle tourniquet 250 mmHg. ESTIMATED BLOOD LOSS Minimal. MATERIALS USED 3-0 Vicryl, 3-0 Prolene. SPECIMENS Amputated right great toe sent to Pathology. Necrotic bone from hallux interphalangeal joint, sent to Microbiology for culture and sensitivity. First metatarsophalangeal joint fluid sent to Microbiology. COMPLICATIONS None. INDICATIONS FOR PROCEDURE Ms. Minaya is a 48-year-old severely uncontrolled diabetic female with a hemoglobin A1c of 14.3. The patient has chronic ulceration to the right hallux. MRI of the area revealed a septic hallux interphalangeal joint with osteomyelitis of both the 1st distal phalanx and 1st proximal phalanx of the hallux. Due to the patient's infection, I recommended amputation over intravenous antibiotics, but intravenous antibiotics were provided as an option for the patient. Following discussion of the risks, benefits, and alternatives to both, patient ultimately elected for right great toe amputation. Patient was consented for the procedure. She had all questions answered and wished to proceed. There were absolutely no promises or guarantees given nor implied to the patient, and her n.p.o. status was confirmed. DESCRIPTION OF PROCEDURE The patient was brought to the operating room and transferred from the cart to the operating room table and placed supinely on the table. Following induction of monitored anesthesia care, right great toe was anesthetized via a [place] block utilizing 1% lidocaine plain and 0.5% Marcaine plain. Foot was then sterilely prepped, scrubbed, and draped in standard aseptic fashion. Incision was made just distal to the hallux interphalangeal joint and distal phalanx was disarticulated. Bone was noted to be crumbling as the amputation was performed secondary to the severe infection that was present at the distal phlananx and distal portion of the proximal phalanx. A culture of the hallux interphalangeal joint bone was sent to Microbiology. Ulcer was excised. Then, the incision was extended dorsally full-thickness down to bone towards the metatarsophalangeal joint. Post disarticulation of the hallux at the metatarsophalangeal joint, the area was irrigated with copious amounts of sterile saline. First metatarsal head was noted to be hard. No purulence was noted. Following irrigation, there was no necrotic tissue or devitalized material noted. The extensor and flexor tendons were transected. Patient then had the area irrigated again, and closure was performed utilizing 3-0 Vicryl for deep closure, and skin was closed with 3-0 Prolene. Postoperative block of 0.5% Marcaine plain was given. Dressings consisted of Adaptic, 4x4s, Kerlix, and Jessica wrap. Patient tolerated procedure well and was transferred from the operative room to recovery room with vital signs stable and vascular status intact to the preoperative levels of the right foot of the remaining digits. The patient is to keep the dressing clean, dry, and intact. Continue intravenous antibiotics at this time. Patient is to be nonweightbearing to the right lower extremity. I did have roberta discussion with the patient and her family postoperatively that she needs to control her diabetes, and if she does not control her diabetes, her healing outcome will be poor. I explained to her it is important that she follows up with Endocrinology post discharge from the hospital. Patient related understanding. ZEFERINO GERONIMO DPM D 04/02/2019 16:19 [id number] T 04/02/2019 17:54 KMH/MODL Patient refusing to finish post op VS. VS stable Xray being done. Dr Geronimo into see pt Brief Post Operative Note Patient Name: Maryanne Minaya : 1970 (48 y.o.) Date of Service: 04/02/2019 CSN: [id number] Procedure(s): RIGHT GREAT TOE AMPUTATION AT LEVEL OF THE METATARSOPHALANGEAL JOINT Pre-Operative Diagnoses: Right great toe osteomyelitis Uncontrolled Diabetes mellitus, HbA1c 14.3 Chronic right great toe ulcer Post-Operative Diagnoses: Same Surgeon(s) and Role: * Zeferino Geronimo DPM - Primary Anesthesiologist: Dami Lerma MD BLOCKER AND POLISHER GOLD WHEEL: Humaira Diez CRNA Restaurant Service Manager: Octavio Tejada RN Scrub Person: Chica Skinner LPN Operative findings: See full operative report Intra and immediate post-operative complications: None Type of anesthesia used: Monitor Anesthesia Care Estimated blood loss: 1 mL Estimated urine output: Refer to surgical log Specimen(s): ID Type Source Tests Collected by Time Destination 1 : Bone Culture Right Great Toe Bone Foot, Right BONE AEROBIC CULTURE, BONE ANAEROBIC CULTURE Zeferino Geronimo DPM 04/02/2019 1342 2 : RIght Great Toe Amputaton Site-Tissue Culture Swab Foot, Right WOUND AEROBIC CULTURE, SURGICAL SITE AEROBIC CULTURE Zeferino Mamadou Geronimo DPM 04/02/2019 1344 A : Right Great Toe Amputation Tissue Foot, Right TISSUE EXAM Zeferino Cedillo DAMION Geronimo 04/02/2019 1348 Implant(s): * No implants in log * Drain(s): * No LDAs found * Wound(s): Incision 04/02/19 Foot Right (Active) Reassessment Unchd 04/02/2019 2:35 PM Dressing Status Dry;Intact;Clean 04/02/2019 2:35 PM Zeferino Geronimo DPM 04/02/2019 2:49 PM PHYSICAL THERAPY VISIT VARIANCE NOTE Attempted to see patient at this time, but unable secondary to: PT Visit Variance: Awaiting Medical Clearance (comment)(in surgery today.). Will follow up as appropriate. Nurse attempts to call Dr Harris in regards to Dr Diana request of potentially holding insulin orders while the patient is NPO. No answer, nurse awaiting for a phone call back. Bill from pharmacy contacted about pt having vancomycin and zosyn compatibility. Bill Pharmacist states both medications are compatible. Dressing change competed to right toe per orders. OCCUPATIONAL THERAPY VISIT VARIANCE NOTE Attempted to see patient at this time, but unable secondary to: OT Visit Variance: Awaiting Medical Clearance Is to have right great toe amp 04-02-19.. Will follow up as appropriate. PHYSICAL THERAPY VISIT VARIANCE NOTE Attempted to see patient at this time, but unable secondary to: PT Visit Variance: Awaiting Medical Clearance (comment)(Pt to have R great toe amputation 04/02/19.). Will follow up as appropriate. 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 but she does not wish to return to this at d/c - pt reports she plans to go stay with her friend that lives in [place] / but has not told her boyfriend about this yet - resources for housing offered but pt declines at this time - discussed possible ecf placement at d/ and pt does not want to do that but PT and OT ordered just in case - pt had an MRI today and the results are pending - surgery may be occurring in the next day or so and cc will be following for d/c needs and disposition - Patient continues IV ATB's and is scheduled to have an MRI and ultrasound duplex venous to her right leg today to rule out osteomyelitis and DVT. ED Attestation: I did not see this patient. However, I was personally available for consult in the ED for this patient, if the Advanced Practice Provider (WOLFGANG) needed any assistance. The WOLFGANG evaluated the patient independently for a complaint of Foot Injury, and completed their own examination, documentation, and discharge. POC initiated documented in this encounter Source Comments (unrecognize d section and content) In the event this informatio n is protected by the Federal Confidentiality of Alcohol and Drug Abuse Patient Records regulations: The Federal rules restrict any use of the information to criminally investigate or prosecute any alcohol or drug abuse patient.[facility] CenterIn the event this information is protected by the Federal Confidentiality of Alcohol and Drug Abuse Patient Records regulations: The Federal rules restrict any use of the information to criminally investigate or prosecute any alcohol or drug abuse patient.[facility] CenterIn the event this information is protected by the Federal Confidentiality of Alcohol and Drug Abuse Patient Records regulations: The Federal rules restrict any use of the information to criminally investigate or prosecute any alcohol or drug abuse patient.[facility] CenterIn the event this information is protected by the Federal Confidentiality of Alcohol and Drug Abuse Patient Records regulations: The Federal rules restrict any use of the information to criminally investigate or prosecute any alcohol or drug abuse patient.[facility] CenterIn the event this information is protected by the Federal Confidentiality of Alcohol and Drug Abuse Patient Records regulations: The Federal rules restrict any use of the information to criminally investigate or prosecute any alcohol or drug abuse patient.[facility] CenterIn the event this information is protected by the Federal Confidentiality of Alcohol and Drug Abuse Patient Records regulations: The Federal rules restrict any use of the information to criminally investigate or prosecute any alcohol or drug abuse patient.[facility] CenterIn the event this information is protected by the Federal Confidentiality of Alcohol and Drug Abuse Patient Records regulations: The Federal rules restrict any use of the information to criminally investigate or prosecute any alcohol or drug abuse patient.[facility] CenterIn the event this information is protected by the Federal Confidentiality of Alcohol and Drug Abuse Patient Records regulations: The Federal rules restrict any use of the information to criminally investigate or prosecute any alcohol or drug abuse patient.[facility] CenterIn the event this information is protected by the Federal Confidentiality of Alcohol and Drug Abuse Patient Records regulations: The Federal rules restrict any use of the information to criminally investigate or prosecute any alcohol or drug abuse patient.[facility] CenterIn the event this information is protected by the Federal Confidentiality of Alcohol and Drug Abuse Patient Records regulations: The Federal rules restrict any use of the information to criminally investigate or prosecute any alcohol or drug abuse patient.[facility] CenterIn the event this information is protected by the Federal Confidentiality of Alcohol and Drug Abuse Patient Records regulations: The Federal rules restrict any use of the information to criminally investigate or prosecute any alcohol or drug abuse patient.[facility] CenterIn the event this information is protected by the Federal Confidentiality of Alcohol and Drug Abuse Patient Records regulations: The Federal rules restrict any use of the information to criminally investigate or prosecute any alcohol or drug abuse patient.[facility] CenterIn the event this information is protected by the Federal Confidentiality of Alcohol and Drug Abuse Patient Records regulations: The Federal rules restrict any use of the information to criminally investigate or prosecute any alcohol or drug abuse patient.[facility] CenterIn the event this information is protected by the Federal Confidentiality of Alcohol and Drug Abuse Patient Records regulations: The Federal rules restrict any use of the information to criminally investigate or prosecute any alcohol or drug abuse patient.[facility] CenterIn the event this information is protected by the Federal Confidentiality of Alcohol and Drug Abuse Patient Records regulations: The Federal rules restrict any use of the information to criminally investigate or prosecute any alcohol or drug abuse patient.[facility] CenterIn the event this information is protected by the Federal Confidentiality of Alcohol and Drug Abuse Patient Records regulations: The Federal rules restrict any use of the information to criminally investigate or prosecute any alcohol or drug abuse patient.[facility] CenterIn the event this information is protected by the Federal Confidentiality of Alcohol and Drug Abuse Patient Records regulations: The Federal rules restrict any use of the information to criminally investigate or prosecute any alcohol or drug abuse patient.[facility] CenterIn the event this information is protected by the Federal Confidentiality of Alcohol and Drug Abuse Patient Records regulations: The Federal rules restrict any use of the information to criminally investigate or prosecute any alcohol or drug abuse patient.[facility] CenterIn the event this information is protected by the Federal Confidentiality of Alcohol and Drug Abuse Patient Records regulations: The Federal rules restrict any use of the information to criminally investigate or prosecute any alcohol or drug abuse patient.[facility] CenterIn the event this information is protected by the Federal Confidentiality of Alcohol and Drug Abuse Patient Records regulations: The Federal rules restrict any use of the information to criminally investigate or prosecute any alcohol or drug abuse patient.[facility] CenterIn the event this information is protected by the Federal Confidentiality of Alcohol and Drug Abuse Patient Records regulations: The Federal rules restrict any use of the information to criminally investigate or prosecute any alcohol or drug abuse patient.[facility] CenterIn the event this information is protected by the Federal Confidentiality of Alcohol and Drug Abuse Patient Records regulations: The Federal rules restrict any use of the information to criminally investigate or prosecute any alcohol or drug abuse patient.[facility] CenterIn the event this information is protected by the Federal Confidentiality of Alcohol and Drug Abuse Patient Records regulations: The Federal rules restrict any use of the information to criminally investigate or prosecute any alcohol or drug abuse patient.[facility] CenterIn the event this information is protected by the Federal Confidentiality of Alcohol and Drug Abuse Patient Records regulations: The Federal rules restrict any use of the information to criminally investigate or prosecute any alcohol or drug abuse patient.[facility] CenterIn the event this information is protected by the Federal Confidentiality of Alcohol and Drug Abuse Patient Records regulations: The Federal rules restrict any use of the information to criminally investigate or prosecute any alcohol or drug abuse patient.[facility] CenterIn the event this information is protected by the Federal Confidentiality of Alcohol and Drug Abuse Patient Records regulations: The Federal rules restrict any use of the information to criminally investigate or prosecute any alcohol or drug abuse patient.[facility] CenterIn the event this information is protected by the Federal Confidentiality of Alcohol and Drug Abuse Patient Records regulations: The Federal rules restrict any use of the information to criminally investigate or prosecute any alcohol or drug abuse patient.[facility] CenterIn the event this information is protected by the Federal Confidentiality of Alcohol and Drug Abuse Patient Records regulations: The Federal rules restrict any use of the information to criminally investigate or prosecute any alcohol or drug abuse patient.[facility] CenterIn the event this information is protected by the Federal Confidentiality of Alcohol and Drug Abuse Patient Records regulations: The Federal rules restrict any use of the information to criminally investigate or prosecute any alcohol or drug abuse patient.[facility] CenterIn the event this information is protected by the Federal Confidentiality of Alcohol and Drug Abuse Patient Records regulations: The Federal rules restrict any use of the information to criminally investigate or prosecute any alcohol or drug abuse patient.[facility] CenterIn the event this information is protected by the Federal Confidentiality of Alcohol and Drug Abuse Patient Records regulations: The Federal rules restrict any use of the information to criminally investigate or prosecute any alcohol or drug abuse patient.[facility] CenterIn the event this information is protected by the Federal Confidentiality of Alcohol and Drug Abuse Patient Records regulations: The Federal rules restrict any use of the information to criminally investigate or prosecute any alcohol or drug abuse patient.[facility] CenterIn the event this information is protected by the Federal Confidentiality of Alcohol and Drug Abuse Patient Records regulations: The Federal rules restrict any use of the information to criminally investigate or prosecute any alcohol or drug abuse patient.[facility] CenterIn the event this information is protected by the Federal Confidentiality of Alcohol and Drug Abuse Patient Records regulations: The Federal rules restrict any use of the information to criminally investigate or prosecute any alcohol or drug abuse patient.[facility] CenterIn the event this information is protected by the Federal Confidentiality of Alcohol and Drug Abuse Patient Records regulations: The Federal rules restrict any use of the information to criminally investigate or prosecute any alcohol or drug abuse patient.[facility] CenterIn the event this information is protected by the Federal Confidentiality of Alcohol and Drug Abuse Patient Records regulations: The Federal rules restrict any use of the information to criminally investigate or prosecute any alcohol or drug abuse patient.[facility] CenterIn the event this information is protected by the Federal Confidentiality of Alcohol and Drug Abuse Patient Records regulations: The Federal rules restrict any use of the information to criminally investigate or prosecute any alcohol or drug abuse patient.[facility] CenterIn the event this information is protected by the Federal Confidentiality of Alcohol and Drug Abuse Patient Records regulations: The Federal rules restrict any use of the information to criminally investigate or prosecute any alcohol or drug abuse patient.[facility] CenterIn the event this information is protected by the Federal Confidentiality of Alcohol and Drug Abuse Patient Records regulations: The Federal rules restrict any use of the information to criminally investigate or prosecute any alcohol or drug abuse patient.[facility] CenterIn the event this information is protected by the Federal Confidentiality of Alcohol and Drug Abuse Patient Records regulations: The Federal rules restrict any use of the information to criminally investigate or prosecute any alcohol or drug abuse patient.[facility] CenterIn the event this information is protected by the Federal Confidentiality of Alcohol and Drug Abuse Patient Records regulations: The Federal rules restrict any use of the information to criminally investigate or prosecute any alcohol or drug abuse patient.[facility] CenterIn the event this information is protected by the Federal Confidentiality of Alcohol and Drug Abuse Patient Records regulations: The Federal rules restrict any use of the information to criminally investigate or prosecute any alcohol or drug abuse patient.[facility] CenterIn the event this information is protected by the Federal Confidentiality of Alcohol and Drug Abuse Patient Records regulations: The Federal rules restrict any use of the information to criminally investigate or prosecute any alcohol or drug abuse patient.[facility] CenterIn the event this information is protected by the Federal Confidentiality of Alcohol and Drug Abuse Patient Records regulations: The Federal rules restrict any use of the information to criminally investigate or prosecute any alcohol or drug abuse patient.[facility] CenterIn the event this information is protected by the Federal Confidentiality of Alcohol and Drug Abuse Patient Records regulations: The Federal rules restrict any use of the information to criminally investigate or prosecute any alcohol or drug abuse patient.[facility] CenterIn the event this information is protected by the Federal Confidentiality of Alcohol and Drug Abuse Patient Records regulations: The Federal rules restrict any use of the information to criminally investigate or prosecute any alcohol or drug abuse patient.[facility] CenterIn the event this information is protected by the Federal Confidentiality of Alcohol and Drug Abuse Patient Records regulations: The Federal rules restrict any use of the information to criminally investigate or prosecute any alcohol or drug abuse patient.[facility] CenterIn the event this information is protected by the Federal Confidentiality of Alcohol and Drug Abuse Patient Records regulations: The Federal rules restrict any use of the information to criminally investigate or prosecute any alcohol or drug abuse patient.[facility] CenterIn the event this information is protected by the Federal Confidentiality of Alcohol and Drug Abuse Patient Records regulations: The Federal rules restrict any use of the information to criminally investigate or prosecute any alcohol or drug abuse patient.[facility] CenterIn the event this information is protected by the Federal Confidentiality of Alcohol and Drug Abuse Patient Records regulations: The Federal rules restrict any use of the information to criminally investigate or prosecute any alcohol or drug abuse patient.[facility] CenterIn the event this information is protected by the Federal Confidentiality of Alcohol and Drug Abuse Patient Records regulations: The Federal rules restrict any use of the information to criminally investigate or prosecute any alcohol or drug abuse patient.[facility] CenterIn the event this information is protected by the Federal Confidentiality of Alcohol and Drug Abuse Patient Records regulations: The Federal rules restrict any use of the information to criminally investigate or prosecute any alcohol or drug abuse patient.[facility] CenterIn the event this information is protected by the Federal Confidentiality of Alcohol and Drug Abuse Patient Records regulations: The Federal rules restrict any use of the information to criminally investigate or prosecute any alcohol or drug abuse patient.[facility] CenterIn the event this information is protected by the Federal Confidentiality of Alcohol and Drug Abuse Patient Records regulations: The Federal rules restrict any use of the information to criminally investigate or prosecute any alcohol or drug abuse patient.[facility] CenterIn the event this information is protected by the Federal Confidentiality of Alcohol and Drug Abuse Patient Records regulations: The Federal rules restrict any use of the information to criminally investigate or prosecute any alcohol or drug abuse patient.[facility] CenterIn the event this information is protected by the Federal Confidentiality of Alcohol and Drug Abuse Patient Records regulations: The Federal rules restrict any use of the information to criminally investigate or prosecute any alcohol or drug abuse patient.[facility] CenterIn the event this information is protected by the Federal Confidentiality of Alcohol and Drug Abuse Patient Records regulations: The Federal rules restrict any use of the information to criminally investigate or prosecute any alcohol or drug abuse patient.[facility] CenterIn the event this information is protected by the Federal Confidentiality of Alcohol and Drug Abuse Patient Records regulations: The Federal rules restrict any use of the information to criminally investigate or prosecute any alcohol or drug abuse patient.[facility] CenterIn the event this information is protected by the Federal Confidentiality of Alcohol and Drug Abuse Patient Records regulations: The Federal rules restrict any use of the information to criminally investigate or prosecute any alcohol or drug abuse patient.[facility] Care Teams (unrecognized sec tion and content) Jewelry Sales Coordinator Relationship Specialty Start Date End Date Starr Garcia MD [address] [facility] [place] [address] PCP - General Internal Medicine 05/11/19 Ge Rincon, [facility] [address] [facility] [place] [address] Pharmacist Pharmacy 07/14/19 Jade Lu, [facility] [address] [facility] [place] [address] Pharmacist Pharmacy 05/01/21 Jewelry Sales Coordinator Relationship Specialty Start Date End Date Starr Garcia MD [address] [facility] [place] [address] PCP - General Internal Medicine 05/11/19 Ge Rincon, [facility] [address] [facility] [place] [address] Pharmacist Pharmacy 07/14/19 [facility] [address] [facility] [place] [address] Pharmacist Pharmacy 05/01/21 Jewelry Sales Coordinator Relationship Specialty Start Date End Date Starr Garcia MD [address] [facility] [place] [address] PCP - General Internal Medicine 05/11/19 Ge Rincon, [facility] [address] [facility] [place] [address] Pharmacist Pharmacy 07/14/19 Jade Lu, [facility] [address] [facility] [place] [address] Pharmacist Pharmacy 05/01/21 Jewelry Sales Coordinator Relationship Specialty Start Date End Date Starr Garcia MD [address] [place] [address] PCP - General Internal Medicine 05/11/19 Ge Rincon, [facility] [address] [place] [address] Pharmacist Pharmacy 07/14/19 [facility] [address] [place] [address] Pharmacist Pharmacy 05/01/21 Jewelry Sales Coordinator Relationship Specialty Start Date End Date Starr Garcia MD [address] [place] [address] PCP - General Internal Medicine 05/11/19 Ge Rincon, [facility] [address] [place] [address] Pharmacist Pharmacy 07/14/19 Jade Lu, [facility] [address] [place] [address] Pharmacist Pharmacy 05/01/21 Jewelry Sales Coordinator Relationship Specialty Start Date End Date Starr Garcia MD [address] [place] [address] PCP - General Internal Medicine 05/11/19 Ge Rincon, [facility] [address] [place] [address] Pharmacist Pharmacy 07/14/19 Jade Lu, [facility] [address] [place] [address] Pharmacist Pharmacy 05/01/21 Jewelry Sales Coordinator Relationship Specialty Start Date End Date Starr Garcia MD [address] [place] [address] PCP - General Internal Medicine 05/11/19 Ge Rincon, [facility] [address] [place] [address] Pharmacist Pharmacy 07/14/19 Jade Lu, [facility] [address] [place] [address] Pharmacist Pharmacy 05/01/21 Jewelry Sales Coordinator Relationship Specialty Start Date End Date Starr Garcia MD [address] [place] [address] PCP - General Internal Medicine 05/11/19 Ge Rincon, [facility] [address] [place] [address] Pharmacist Pharmacy 07/14/19 Jade Lu, [facility] [address] [facility] [place] [address] Pharmacist Pharmacy 05/01/21 Jewelry Sales Coordinator Relationship Specialty Start Date End Date Starr Garcia MD [address] [facility] [place] [address] PCP - General Internal Medicine 05/11/19 Ge Rincon, [facility] [address] [place] [address] Pharmacist Pharmacy 07/14/19 Jade Lu, [facility] [address] [place] [address] Pharmacist Pharmacy 05/01/21 Jewelry Sales Coordinator Relationship Specialty Start Date End Date Starr Garcia MD [address] [facility] [place] [address] PCP - General Internal Medicine 05/11/19 Ge Rincon, [facility] [address] [place] [address] Pharmacist Pharmacy 07/14/19 Jade Lu, [facility] [address] [place] [address] Pharmacist Pharmacy 05/01/21 Jewelry Sales Coordinator Relationship Specialty Start Date End Date Starr Garcia MD [address] [place] [address] PCP - General Internal Medicine 05/11/19 Ge Rincon, [facility] [address] [place] [address] Pharmacist Pharmacy 07/14/19 Jade Lu, [facility] [address] [place] [address] Pharmacist Pharmacy 05/01/21 Jewelry Sales Coordinator Relationship Specialty Start Date End Date Starr Garcia MD [address] [place] [place] [address] PCP - General Internal Medicine 05/11/19 Ge Rincon, [facility] [address] [place] [address] Pharmacist Pharmacy 07/14/19 Jade Lu, [facility] [address] [place] [address] Pharmacist Pharmacy 05/01/21 Jewelry Sales Coordinator Relationship Specialty Start Date End Date Starr Garcia MD [address] [place] [address] PCP - General Internal Medicine 05/11/19 Ge Rincon, [facility] [address] [place] [address] Pharmacist Pharmacy 07/14/19 Jade Lu, [facility] [address] [place] [address] Pharmacist Pharmacy 05/01/21 Jewelry Sales Coordinator Relationship Specialty Start Date End Date Starr Garcia MD [address] [place] [address] PCP - General Internal Medicine 05/11/19 Ge Rincon, [facility] [address] [place] [address] Pharmacist Pharmacy 07/14/19 Jade Lu, [facility] [address] [place] [address] Pharmacist Pharmacy 05/01/21 Jewelry Sales Coordinator Relationship Specialty Start Date End Date Starr Garcia MD [address] [place] [address] PCP - General Internal Medicine 05/11/19 Ge Rincon, [facility] [address] [place] [address] Pharmacist Pharmacy 07/14/19 Jade Lu, [facility] [address] [place] [address] Pharmacist Pharmacy 05/01/21 Jewelry Sales Coordinator Relationship Specialty Start Date End Date Starr Garcia MD [address] [place] [address] PCP - General Internal Medicine 05/11/19 Ge Rincon, [facility] [address] [place] [address] Pharmacist Pharmacy 07/14/19 Jade Lu, [facility] [address] [place] [address] Pharmacist Pharmacy 05/01/21 Jewelry Sales Coordinator Relationship Specialty Start Date End Date Starr Garcia MD [address] [place] [address] PCP - General Internal Medicine 05/11/19 Ge Rincon, [facility] [address] [place] [address] Pharmacist Pharmacy 07/14/19 Jade Lu, [facility] [address] [place] [address] Pharmacist Pharmacy 05/01/21 Jewelry Sales Coordinator Relationship Specialty Start Date End Date Starr Garcia MD [address] [place] [address] PCP - General Internal Medicine 05/11/19 Ge Rincon, [facility] [address] [place] [address] Pharmacist Pharmacy 07/14/19 Jade Lu, [facility] [address] [place] [address] Pharmacist Pharmacy 05/01/21 Jewelry Sales Coordinator Relationship Specialty Start Date End Date Starr Garcia MD [address] [place] [address] PCP - General Internal Medicine 05/11/19 Ge Rincon, [facility] [address] [place] [address] Pharmacist Pharmacy 07/14/19 Jade Lu, [facility] [address] [place] [address] Pharmacist Pharmacy 05/01/21 Jewelry Sales Coordinator Relationship Specialty Start Date End Date Starr Garcia MD [address] [place] [address] PCP - General Internal Medicine 05/11/19 Ge Rincon, [facility] [address] [place] [address] Pharmacist Pharmacy 07/14/19 Jade Lu, [facility] [address] [place] [address] Pharmacist Pharmacy 05/01/21 Jewelry Sales Coordinator Relationship Specialty Start Date End Date Starr Garcia MD [address] [place] [address] PCP - General Internal Medicine 05/11/19 Ge Rincon, [facility] [address] [place] [address] Pharmacist Pharmacy 07/14/19 Jade Lu, [facility] [address] [place] [address] Pharmacist Pharmacy 05/01/21 Jewelry Sales Coordinator Relationship Specialty Start Date End Date Starr Garcia MD [address] [place] [address] PCP - General Internal Medicine 05/11/19 Ge Rincon, [facility] [address] [place] [address] Pharmacist Pharmacy 07/14/19 Jade Lu, [facility] [address] [place] [address] Pharmacist Pharmacy 05/01/21 Jewelry Sales Coordinator Relationship Specialty Start Date End Date Starr Garcia MD [address] [place] [address] PCP - General Internal Medicine 05/11/19 Ge Rincon, [facility] [address] [place] [address] Pharmacist Pharmacy 07/14/19 Jade Lu, [facility] [address] [place] [address] Pharmacist Pharmacy 05/01/21 Jewelry Sales Coordinator Relationship Specialty Start Date End Date Starr Garcia MD [address] [place] [address] PCP - General Internal Medicine 05/11/19 Juniorjorje Ge, [facility] [address] [place] [address] Pharmacist Pharmacy 07/14/19 Jade Lu, [facility] [address] [place] [address] Pharmacist Pharmacy 05/01/21 Jewelry Sales Coordinator Relationship Specialty Start Date End Date Starr Garcia MD [address] [place] [address] PCP - General Internal Medicine 05/11/19 Juniorjorje Tiffanierita, [facility] [address] [place] [address] Pharmacist Pharmacy 07/14/19 Jade Lu, [facility] [address] [place] [address] Pharmacist Pharmacy 05/01/21 Jewelry Sales Coordinator Relationship Specialty Start Date End Date Starr Garcia MD [address] [place] [address] PCP - General Internal Medicine 05/11/19 Mckenzie Tiffanierita, [facility] [address] [place] [address] Pharmacist Pharmacy 07/14/19 04/23/23 Jade Lu, [facility] [address] [place] [address] Pharmacist Pharmacy 05/01/21 04/23/23 Jewelry Sales Coordinator Relationship Specialty Start Date End Date Starr Garcia MD [address] [place] [address] PCP - General Internal Medicine 05/11/19 Jewelry Sales Coordinator Relationship Specialty Start Date End Date Starr Garcia MD [address] [place] [address] PCP - General Internal Medicine 05/11/19 Jewelry Sales Coordinator Relationship Specialty Start Date End Date Starr Garcia MD [address] [place] [address] PCP - General Internal Medicine 05/11/19 Jewelry Sales Coordinator Relationship Specialty Start Date End Date Starr Garcia MD [address] [place] [address] PCP - General Internal Medicine 05/11/19 Jewelry Sales Coordinator Relationship Specialty Start Date End Date Starr Garcia MD [address] [place] [address] PCP - General Internal Medicine 05/11/19 Jewelry Sales Coordinator Relationship Specialty Start Date End Date Starr Garcia MD [address] [place] [address] PCP - General Internal Medicine 05/11/19 Jewelry Sales Coordinator Relationship Specialty Start Date End Date Starr Garcia MD [address] [place] [address] PCP - General Internal Medicine 05/11/19 Jewelry Sales Coordinator Relationship Specialty Start Date End Date Starr Garcia MD [address] [place] [address] PCP - General Internal Medicine 05/11/19 Jewelry Sales Coordinator Relationship Specialty Start Date End Date Starr Garcia MD [address] [place] [address] PCP - General Internal Medicine 05/11/19 Jewelry Sales Coordinator Relationship Specialty Start Date End Date Starr Garcia MD [address] [place] [address] PCP - General Internal Medicine 05/11/19 Jewelry Sales Coordinator Relationship Specialty Start Date End Date Starr Garcia MD [address] [facility] [place] [address] PCP - General Internal Medicine 05/11/19 Jewelry Sales Coordinator Relationship Specialty Start Date End Date Starr Garcia MD [address] [facility] [place] [address] PCP - General Internal Medicine 05/11/19 Jewelry Sales Coordinator Relationship Specialty Start Date End Date Starr Garcia MD [address] [facility] [place] [address] PCP - General Internal Medicine 05/11/19 Jewelry Sales Coordinator Relationship Specialty Start Date End Date Starr Garcia MD [address] [facility] [place] [address] PCP - General Internal Medicine 05/11/19 FOR RECORDS PERTAINING TO PATIENTS WHO ARE OR HAVE BEEN ENROLLED IN A CHEMICAL DEPENDENCY/SUBSTANCEABUSE PROGRAM, SOME INFORMATION MAY BE OMITTED. This clinical summary was aggregated from multiple sources. Caution should be exercised in using it in the provision of clinical care. This summary normalizes information from multiple sources, and as a consequence, information in this document may materially change the coding, format and clinical context of patient data. In addition, data may be omitted in some cases. CLINICAL DECISIONS SHOULD BE BASED ON THE PRIMARY CLINICAL RECORDS. [facility]. provides no warranty or guarantee of the accuracy or completeness of information in this document.
[2023-10-20] MEDS: Linezolid 600 MG 600 MG/300 ML BAG 200 MG IV (19:19)
[2023-10-20 20:22] VITALS: BP 136/58; PULSE 77; RESP 18; TEMP 36.6; O2SAT 95
[2023-10-20 20:34] VITALS: BMI 44.6
[2023-10-20] MEDS: Gabapentin 600 MG Tablet PO (20:58)
[2023-10-20] MEDS: Pantoprazole Sodium 20 MG Tablet PO (21:03)
[2023-10-20] MEDS: Atorvastatin Calcium 80 MG Tablet PO (21:03)
[2023-10-20] MEDS: tiZANidine HCl 2 MG Tablet 4 MG PO (21:03)
[2023-10-20] MEDS: Montelukast 10 MG Tablet PO (21:03)
[2023-10-20] MEDS: Acetaminophen 325 MG Tablet 650 MG PO (21:11)
[2023-10-21 04:10] VITALS: BP 113/62; PULSE 63; RESP 18; TEMP 36.4; O2SAT 93
[2023-10-21] MEDS: Piperacil/Tazobactam 3.375 GM in 0.9% Normal Saline (50mL MB+) 50 ML IV ×3 (05:34→22:49)
[2023-10-21] MEDS: Levothyroxine 75 MCG Tablet PO (05:39)
--- NOTE | 2023-10-21 05:40 | NURSING ---
Pt's blood sugar is 120 via pt's own device
[2023-10-21 06:51] LABS: Hematocrit 40.9 % (37-47); Hemoglobin 12.9 g/dL (12.0-15.0); Mean Corp Hgb Conc 31.5 g/dL (32-36); Mean Corpuscular Hgb 28.7 pg (27.0-32.0); Mean Corpuscular Volume 91.1 fL (81-99); Mean Platelet Vol. 9.2 fl (6.2-12.0); Platelet Count 238 K/mm3 (150-450); RBC Distribution Width CV 14.9 % (11.6-14.6); RBC Distribution Width SD 49.8 fl (35.1-43.9); Red Blood Count 4.49 M/mm3 (4.2-5.4); White Blood Count 8.7 K/mm3 (4.4-11.0)
[2023-10-21 07:10] LABS: Prothrombin Time (Protime)PT. 12.8 SECONDS (11.7-14.9)
[2023-10-21 07:17] LABS: Anion Gap 2 (5-15); BUN 15 mg/dL (7-18); BUN/Creat Ratio 19.1 RATIO (10-20); Calcium,Total 8.3 mg/dL (8.5-10.1); Chloride 110 mmol/L (98-107); Creatinine, Serum 0.78 mg/dL (0.55-1.02); EST Glomerular Filtration Rate 82 mL/min (>60); Est Glom Filt Rate - Afr Amer 99 mL/min (>60); Estimated Creatinine Clearance 107.79 ml/min; Glucose 113 mg/dL (74-106); Potassium 3.8 mmol/L (3.5-5.1); Sodium Level 139 mmol/L (136-145)
--- NOTE | 2023-10-21 07:34 | PCM.CONS.GEN ---
Assessment & Plan Assessment/Plan (1) Osteomyelitis of great toe of left foot: PLAN: Patient was examined evaluated. All findings were discussed with the patient. All questions were answered to the patient satisfaction. Patient was seen at bedside today with the wound care nurse. The patient shows evidence of 2 full-thickness ulceration which are stable at this time. There is concern for chronic osteomyelitis to the distal phalanx of the left great toe. Will plan for surgical removal of the distal phalanx via partial excision of bone with advancement flap closure with endoscopic gastroc recession of the left lower extremity. All risk and benefits were discussed with patient great detail. She is willing to move forward with surgery to left lower extremity. Surgery will be planned for 3:30 PM on 10/22/2023. Please clear the patient medically with recommendation and have a patient n.p.o. midnight tonight. Cx: (09/15/23): E coli, S agalactiae, MRSA, Strept Group G Medicine: On board, medical management, IV antibiotics Zosyn ID: Consult pending Wound Care: following PT/OT/SW: consult pending WBC: 11.1 -> 8.7 ESR: 39 CRP: 30.6 Glu: 113 HbA1c: pending Please reach out to Dr. Velazco with any questions or concerns. Thank you for the consultation! (2) Tightness of left heel cord: (3) Acute painful diabetic polyneuropathy: HPI Consult Data Date of Consult: 10/21/23 HPI Narrative Reason for Consultation: Osteomyelitis left big toe HPI Narrative: KATHRYN ESQUIVEL, is a 52 F who presents to [facility] emergency department for admission secondary to chronic osteomyelitis to the left hallux. Patient is well-known to our office as a patient Dr. Muniz. She was seen by me in the office with concerns of worsening infection to the left hallux with concern of chronic osteomyelitis. In office x-rays show evidence of periosteal reaction to the distal phalanx of the left hallux. MRI shows concern for bone infection to the distal phalanx of the left hallux as well. Patient was ultimately seen in the emergency department where she had blood work done which showed elevation of white count and inflammatory markers as well as pulse volume recordings which are normal. Patient was seen at bedside today for surgical consultation and we will plan for partial excision of bone with advancement flap closure to the left hallux with endoscopic gastroc recession, left lower extremity, 10/22/2023. All risk and benefits were discussed with the patient great detail. She is understanding of her condition and is willing to move forward with surgery. She denies trauma. Denies constitutional symptoms. No other pedal complaints at this time. FORMERLY [facility], [facility] Medical History Abdominal wall abscess Abdominal wall cellulitis SEUN (acute kidney injury) Amputated toe of right foot Anxiety Chronic pain Chronic ulcer of right foot with fat layer exposed Depression Diabetes Diabetic foot ulcer Dialysis patient Essential hypertension Fibromyalgia History of amputation of great toe History of diabetes mellitus Hyperlipidemia Hypertension Hypothyroidism Meniere disease Obesity Obesity (BMI 30-39.9) Osteomyelitis Osteomyelitis of second toe of right foot Osteomyelitis of toe of right foot Presence of permanent central venous catheter Skin ulcer of left great toe with fat layer exposed Sleep apnea Smoker Type 2 diabetes mellitus with diabetic polyneuropathy Vascular catheter fitting or adjustment Vertigo Home Medications albuterol sulfate 90 mcg/actuation aerosol inhaler 2 puff inhalation Q4H PRN shortness of breath or wheezing 08/30/19 [History Last Taken 10/19/23] atorvastatin 80 mg tablet 80 mg PO QHS cholesterol 08/30/19 [History Last Taken 10/19/23] duloxetine 60 mg capsule,delayed release 60 mg PO QHS DEPRESSION 03/21/20 [History Last Taken 10/19/23] multivitamin with minerals 1 tab PO DAILY SUPPLEMENT 03/21/20 [History Last Taken 10/20/23] ergocalciferol (vitamin D2) 1,250 mcg (50,000 unit) capsule 50,000 unit PO MOTH supplement 10/17/20 [History Last Taken 10/20/23] pantoprazole 20 mg tablet,delayed release 20 mg PO BID ACID REFLUX 11/11/20 [History Last Taken 10/20/23] gabapentin 600 mg tablet 600 mg PO BID NERVE PAIN 11/14/21 [History Last Taken 10/20/23] levothyroxine 75 mcg tablet (Levoxyl) 75 mcg PO DAILY THYROID 02/13/22 [History Last Taken 10/20/23] trazodone 100 mg tablet 100 mg PO QHS Sleep 02/13/22 [History Last Taken 10/19/23] flash glucose sensor (FreeStyle Gómez 2 Sensor kit) #2 ea 08/14/22 [Rx Last Taken Unknown] hydroxyzine HCl 50 mg tablet 50 mg PO BID PRN Anxiety 09/04/22 [History Last Taken 10/17/23] naproxen 500 mg tablet 500 mg PO BID PRN ELBOW PAIN 09/04/22 [History Last Taken 10/20/23] insulin pump cartridge,automated dose,BT with controller subcutaneous (Omnipod 5 G6 Intro Kit (Gen 5) subcutaneous cartridge with controller) #1 ea 12/19/22 [Rx Last Taken Unknown] Humalog U-100 Insulin 100 unit/mL subcutaneous solution (insulin lispro) 150 unit (1.5 mL) subcut DAILY #50 mL 02/28/23 [Rx Last Taken 10/20/23] glimepiride 4 mg tablet 4 mg PO BID DIABETES #180 tabs 04/14/23 [Rx Last Taken 10/20/23] losartan 100 mg tablet 100 mg PO QHS BLOOD PRESSURE 04/14/23 [History Last Taken 10/19/23] blood-glucose transmitter (Dexcom G6 Transmitter device) #1 ea 06/09/23 [Rx Last Taken Unknown] blood-glucose sensor (Dexcom G6 Sensor device) #3 ea 06/30/23 [Rx Last Taken Unknown] insulin pump cart,automated,BT (Omnipod 5 G6 Pods (Gen 5) subcutaneous cartridge) #15 ea 08/08/23 [Rx Last Taken Unknown] meclizine 25 mg tablet (Dramamine (meclizine)) 25 mg PO BID DIZZINESS 09/18/23 [History Last Taken 10/20/23] fluticasone propionate 50 mcg/actuation nasal spray,suspension 2 spray intranasal QODAY nasal congestion 10/20/23 [History Last Taken 10/19/23] hydrochlorothiazide 12.5 mg capsule 12.5 mg PO DAILY htn 10/20/23 [History Last Taken 10/20/23] montelukast 10 mg tablet 10 mg PO QHS allergies 10/20/23 [History Last Taken 10/19/23] tizanidine 4 mg tablet 4 mg PO QHS muscle relaxer 10/20/23 [History Last Taken 10/19/23] Allergy/AdvReac Type Severity Reaction Status Date / Time clindamycin Allergy Hives Verified 10/20/23 14:53 erythromycin base Allergy Hives Verified 10/20/23 14:53 [From E-Mycin] vancomycin Allergy Hives Verified 10/20/23 14:53 Gadolinium-MRI Contrast AdvReac Other Verified 10/20/23 14:53 Medium [CONTRAST] Iodinated Contrast Media AdvReac Kidney Verified 10/20/23 14:53 [CONTRASTS] failure Surgical History History of appendectomy Status post debridement Social History Smoking Status: Current every day smoker tobacco type: cigarettes alcohol intake: former substance use type: marijuana Physical Exam Narrative Vascular: DP and PT pulse are palpable. CFT is brisk. Evidence of nonpitting edema appreciated to the left hallux with blanchable erythema. Neurological: Light touch intact. Protective sensation is absent. Dermatological: 2 full-thickness ulceration to left hallux which are stable with 100% granular tissue. No gross drainage at this time. Skin shows evidence of dystrophic changes which concerning for chronic osteomyelitis. Musculoskeletal: No pain to palpation to the left hallux. Ankle joint range of motion is decreased in dorsiflexion knee extended and increasing dorsiflexion with knee flexed. No pain with calf pressure. Lab / Micro Data 10/21/23 06:15 10/21/23 06:15 Labs: Laboratory Results - last 24 hr 10/20/23 15:20: WBC 11.1 H, RBC 4.89, Hgb 13.9, Hct 44.2, MCV 90.4, MCH 28.4, MCHC 31.4 L, RDW Std Deviation 50.3 H, RDW Coeff of Brea 15.0 H, Plt Count 283, MPV 10.0, Immature Gran % (Auto) 0.500, Neut % (Auto) 61.9, Lymph % (Auto) 30.2, [place] % (Auto) 5.2, Eos % (Auto) 1.9, Baso % (Auto) 0.3, Absolute Neuts (auto) 6.9, Absolute Lymphs (auto) 3.35, Nucleated RBC % 0, ESR 39 H, Sodium 137, Potassium 4.0, Chloride 107, Carbon Dioxide 26.0, Anion Gap 4 L, BUN 17, Creatinine 0.86, Estim Creat Clear Calc 98.64, Est GFR (MDRD) Af Amer 89, Est GFR (MDRD) Non-Af 74, BUN/Creatinine Ratio 19.8, Glucose 100, Calcium 8.7, C-React Prot Ext Range 30.60 H 10/20/23 17:30: POC Glucose 74 10/21/23 06:15: WBC 8.7, RBC 4.49, Hgb 12.9, Hct 40.9, MCV 91.1, MCH 28.7, MCHC 31.5 L, RDW Std Deviation 49.8 H, RDW Coeff of Brea 14.9 H, Plt Count 238, MPV 9.2, PT 12.8, INR 1.0, Sodium 139, Potassium 3.8, Chloride 110 H, Carbon Dioxide 27.0, Anion Gap 2 L, BUN 15, Creatinine 0.78, Estim Creat Clear Calc 107.79, Est GFR (MDRD) Af Amer 99, Est GFR (MDRD) Non-Af 82, BUN/Creatinine Ratio 19.1, Glucose 113 H, Calcium 8.3 L Imagaing Radiology Impression Foot X-Ray 10/20/23 16:00 IMPRESSION: Normal x-ray examination of the foot. Electronically Signed: Zeferino Duong MD at 16:29 EST ,
[2023-10-21 07:35] LABS: Thyroid Stim Hormone (TSH) 3.89 uIU/mL (0.358-3.74)
[2023-10-21 07:50] LABS: Hemoglobin A1c 8.9 % (3.8-5.6)
[2023-10-21 08:02] VITALS: BP 156/71; PULSE 72; RESP 16; TEMP 36.6; O2SAT 94
[2023-10-21] MEDS: Glucerna Shake 120 ML LIQUID PO (08:18)
[2023-10-21 08:26] LABS: Bedside Glucose 75 mg/dL (74-106)
--- NOTE | 2023-10-21 08:35 | WOUNDNOTE ---
wound photo: left great toe
--- NOTE | 2023-10-21 08:36 | WOUNDNOTE ---
wound photo: left great toe
[2023-10-21] MEDS: Pantoprazole Sodium 20 MG Tablet PO ×2 (10:18→21:11)
[2023-10-21] MEDS: Linezolid 600 MG 600 MG/300 ML BAG 200 MG IV ×2 (10:18→21:09)
[2023-10-21] MEDS: Meclizine HCl 25 MG Tablet PO ×2 (10:18→21:11)
[2023-10-21] MEDS: Gabapentin 600 MG Tablet PO ×2 (10:20→21:11)
--- NOTE | 2023-10-21 10:38 | CON.PCM.ID_ITS ---
Assessment & Plan Assessment/Plan (1) Osteomyelitis of great toe of left foot: PLAN: OR planned. On linezolid/zosyn. Last wound cx in 08/2023 with ecoli, GBS, MRSA, strep, anaerobes. Will follow, thank you (2) Neuropathy: (3) History of diabetes mellitus: HPI Consult Data Date of Consult: 10/21/23 HPI Narrative Reason for Consultation: osteo HPI Narrative: KATHRYN ESQUIVEL, is a 52 F with DM neuropathy, presented with one month worsening wound on L hallux. Had redness, swelling, mild pain, drainage. No fever or chills. Finished course of abx about 2 weeks ago but sx worsened. Admitted on linezolid/zosyn, seen by podiatry, OR planned. No n/v/d. Full ROS performed and neg except as noted above. [facility] Medical History Abdominal wall abscess Abdominal wall cellulitis SEUN (acute kidney injury) Amputated toe of right foot Anxiety Chronic pain Chronic ulcer of right foot with fat layer exposed Depression Diabetes Diabetic foot ulcer Dialysis patient Essential hypertension Fibromyalgia History of amputation of great toe History of diabetes mellitus Hyperlipidemia Hypertension Hypothyroidism Meniere disease Obesity Obesity (BMI 30-39.9) Osteomyelitis Osteomyelitis of second toe of right foot Osteomyelitis of toe of right foot Presence of permanent central venous catheter Skin ulcer of left great toe with fat layer exposed Sleep apnea Smoker Type 2 diabetes mellitus with diabetic polyneuropathy Vascular catheter fitting or adjustment Vertigo Home Medications albuterol sulfate 90 mcg/actuation aerosol inhaler 2 puff inhalation Q4H PRN shortness of breath or wheezing 08/30/19 [History Last Taken 10/19/23] atorvastatin 80 mg tablet 80 mg PO QHS cholesterol 08/30/19 [History Last Taken 10/19/23] duloxetine 60 mg capsule,delayed release 60 mg PO QHS DEPRESSION 03/21/20 [History Last Taken 10/19/23] multivitamin with minerals 1 tab PO DAILY SUPPLEMENT 03/21/20 [History Last Taken 10/20/23] ergocalciferol (vitamin D2) 1,250 mcg (50,000 unit) capsule 50,000 unit PO MOTH supplement 10/17/20 [History Last Taken 10/20/23] pantoprazole 20 mg tablet,delayed release 20 mg PO BID ACID REFLUX 11/11/20 [History Last Taken 10/20/23] gabapentin 600 mg tablet 600 mg PO BID NERVE PAIN 11/14/21 [History Last Taken 10/20/23] levothyroxine 75 mcg tablet (Levoxyl) 75 mcg PO DAILY THYROID 02/13/22 [History Last Taken 10/20/23] trazodone 100 mg tablet 100 mg PO QHS Sleep 02/13/22 [History Last Taken 10/19/23] flash glucose sensor (FreeStyle Gómez 2 Sensor kit) #2 ea 08/14/22 [Rx Last Taken Unknown] hydroxyzine HCl 50 mg tablet 50 mg PO BID PRN Anxiety 09/04/22 [History Last Taken 10/17/23] naproxen 500 mg tablet 500 mg PO BID PRN ELBOW PAIN 09/04/22 [History Last Taken 10/20/23] insulin pump cartridge,automated dose,BT with controller subcutaneous (Omnipod 5 G6 Intro Kit (Gen 5) subcutaneous cartridge with controller) #1 ea 12/19/22 [Rx Last Taken Unknown] Humalog U-100 Insulin 100 unit/mL subcutaneous solution (insulin lispro) 150 unit (1.5 mL) subcut DAILY #50 mL 02/28/23 [Rx Last Taken 10/20/23] glimepiride 4 mg tablet 4 mg PO BID DIABETES #180 tabs 04/14/23 [Rx Last Taken 10/20/23] losartan 100 mg tablet 100 mg PO QHS BLOOD PRESSURE 04/14/23 [History Last Taken 10/19/23] blood-glucose transmitter (Dexcom G6 Transmitter device) #1 ea 06/09/23 [Rx Last Taken Unknown] blood-glucose sensor (Dexcom G6 Sensor device) #3 ea 06/30/23 [Rx Last Taken Unknown] insulin pump cart,automated,BT (Omnipod 5 G6 Pods (Gen 5) subcutaneous cartridge) #15 ea 08/08/23 [Rx Last Taken Unknown] meclizine 25 mg tablet (Dramamine (meclizine)) 25 mg PO BID DIZZINESS 09/18/23 [History Last Taken 10/20/23] fluticasone propionate 50 mcg/actuation nasal spray,suspension 2 spray intranasal QODAY nasal congestion 10/20/23 [History Last Taken 10/19/23] hydrochlorothiazide 12.5 mg capsule 12.5 mg PO DAILY htn 10/20/23 [History Last Taken 10/20/23] montelukast 10 mg tablet 10 mg PO QHS allergies 10/20/23 [History Last Taken 10/19/23] tizanidine 4 mg tablet 4 mg PO QHS muscle relaxer 10/20/23 [History Last Taken 10/19/23] Allergy/AdvReac Type Severity Reaction Status Date / Time clindamycin Allergy Hives Verified 10/20/23 14:53 erythromycin base Allergy Hives Verified 10/20/23 14:53 [From E-Mycin] vancomycin Allergy Hives Verified 10/20/23 14:53 Gadolinium-MRI Contrast AdvReac Other Verified 10/20/23 14:53 Medium [CONTRAST] Iodinated Contrast Media AdvReac Kidney Verified 10/20/23 14:53 [CONTRASTS] failure Surgical History History of appendectomy Status post debridement Social History Smoking Status: Current every day smoker tobacco type: cigarettes alcohol intake: former substance use type: marijuana Physical Exam Const alert, oriented x3 and no apparent distress General Appearance: cooperative HEENT normocephalic and head/scalp atraumatic Eyes PERRL and EOMs intact bilaterally Neck supple and No nodes Resp normal air movement and clear to auscultation bilaterally Cardio regular rate and regular rhythm GI soft to palpation, non-tender and non-distended Extremity General Extremity: Negative for edema Skin Skin Narrative: reviewed photo L hallux Neuro CN's II-XII intact bilaterally Lab / Micro Data Attestation: I reviewed the patient's lab results. 10/21/23 06:15 10/21/23 06:15 Labs: Laboratory Results - last 24 hr 10/20/23 15:20: WBC 11.1 H, RBC 4.89, Hgb 13.9, Hct 44.2, MCV 90.4, MCH 28.4, MCHC 31.4 L, RDW Std Deviation 50.3 H, RDW Coeff of Brea 15.0 H, Plt Count 283, MPV 10.0, Immature Gran % (Auto) 0.500, Neut % (Auto) 61.9, Lymph % (Auto) 30.2, [place] % (Auto) 5.2, Eos % (Auto) 1.9, Baso % (Auto) 0.3, Absolute Neuts (auto) 6.9, Absolute Lymphs (auto) 3.35, Nucleated RBC % 0, ESR 39 H, Sodium 137, Potassium 4.0, Chloride 107, Carbon Dioxide 26.0, Anion Gap 4 L, BUN 17, Creatinine 0.86, Estim Creat Clear Calc 98.64, Est GFR (MDRD) Af Amer 89, Est GFR (MDRD) Non-Af 74, BUN/Creatinine Ratio 19.8, Glucose 100, Calcium 8.7, C- React Prot Ext Range 30.60 H 10/20/23 17:30: POC Glucose 74 10/21/23 06:15: WBC 8.7, RBC 4.49, Hgb 12.9, Hct 40.9, MCV 91.1, MCH 28.7, MCHC 31.5 L, RDW Std Deviation 49.8 H, RDW Coeff of Brea 14.9 H, Plt Count 238, MPV 9.2, PT 12.8, INR 1.0, Sodium 139, Potassium 3.8, Chloride 110 H, Carbon Dioxide 27.0, Anion Gap 2 L, BUN 15, Creatinine 0.78, Estim Creat Clear Calc 107.79, Est GFR (MDRD) Af Amer 99, Est GFR (MDRD) Non-Af 82, BUN/Creatinine Ratio 19.1, Glucose 113 H, Hemoglobin A1c 8.9 H, Calcium 8.3 L, TSH 3.89 H 10/21/23 08:08: POC Glucose 75 Imagaing Radiology Impression Foot X-Ray 10/20/23 16:00 IMPRESSION: Normal x-ray examination of the foot. Electronically Signed: Zeferino Duong MD at 16:29 EST ,
[2023-10-21 13:08] LABS: Internal QC Validated? YES +Cl - CLEAR BKGD; Pregnancy, Urine Negative Negative
--- NOTE | 2023-10-21 13:45 | CASEMGMT ---
CHUCK JACK Assessment Face to Face with patient for initial transition planning/care coordination assessment. CHUCK JACK introduced self and role at [facility], pt voices understanding. Pt is A&Ox4 and is resting comfortably in bed and is calm. Care providers, pharmacy, and demographics verified. Admitting dx: Lt Great toe Osteomyelitis LACE Strata: 2 PCP: Radha Specialists: [facility] Bl[facility]) Preferred Pharmacy: [facility] Insurance: [employer], [facility] [employer] Prescription Benefit: Yes LNOK: Monserrat Crenshaw (POA/ Sister), Breanna Martínez (Mother) Living Arrangements: Pt lives alone in a single story apartment with 6 steps to enter with handrails and no issues entering. ADLs/IADLs: Ind Transportation: Pt states she can drive but she does not have a car. Pt states she uses Provide a ride through her insurance DME: Pt states that she has enough supplied at home to check her BS. Pt has a walker and cane at home but does not use. Denies other DME. HHC/SNF: States she has Rt toe amputation x5 years ago and was homeless at that time and went to [facility] ([place]). Pt also states that she was seen by our HH x2 years ago for a stomach wound for about 1 month. Pt?s goal: DC Home by Friday. Plan: Pt states that she is leaving here by Friday no matter what. Pt states that she has a dog at home that she needs to care for him/her. Pt is planned for Sx tomorrow and may potentially need IV ATB after DC. Pt updated on what this entails and states her son would be the teachable caregiver. PT/OT to see pt yet. Will follow for needs. Francisco Krishnan RN, CM
--- NOTE | 2023-10-21 14:55 | PN_ITS ---
Subjective Subjective Patient seen and examined. She had no active complaints. Review of systems otherwise negative. She is being managed for left great toe osteomyelitis. Objective Data Objective Data Vital Signs: Vital Signs Temp Pulse Resp BP Pulse Ox O2 Del Method 97.8 F 72 16 156/71 H 94 Room Air 10/21/23 08:02 10/21/23 08:02 10/21/23 08:02 10/21/23 08:02 10/21/23 08:02 10/21/23 08:10 Oxygen Delivery Method Room Air Weight: 260 lb 2.327 oz Body Mass Index (BMI) 44.6 Intake & Output: Intake and Output for Last 24 Hours 10/19/23 10/20/23 10/21/23 23:59 23:59 23:59 Intake Total 700 / 700 50 / 50 Balance 700 / 700 50 / 50 Lab / Micro Data 10/21/23 06:15 10/21/23 06:15 Labs: Laboratory Results - last 24 hr 10/20/23 15:20: WBC 11.1 H, RBC 4.89, Hgb 13.9, Hct 44.2, MCV 90.4, MCH 28.4, MCHC 31.4 L, RDW Std Deviation 50.3 H, RDW Coeff of Brea 15.0 H, Plt Count 283, MPV 10.0, Immature Gran % (Auto) 0.500, Neut % (Auto) 61.9, Lymph % (Auto) 30.2, [place] % (Auto) 5.2, Eos % (Auto) 1.9, Baso % (Auto) 0.3, Absolute Neuts (auto) 6.9, Absolute Lymphs (auto) 3.35, Nucleated RBC % 0, ESR 39 H, Sodium 137, Potassium 4.0, Chloride 107, Carbon Dioxide 26.0, Anion Gap 4 L, BUN 17, Creatinine 0.86, Estim Creat Clear Calc 98.64, Est GFR (MDRD) Af Amer 89, Est GFR (MDRD) Non-Af 74, BUN/Creatinine Ratio 19.8, Glucose 100, Calcium 8.7, C- React Prot Ext Range 30.60 H 10/20/23 17:30: POC Glucose 74 10/21/23 06:15: WBC 8.7, RBC 4.49, Hgb 12.9, Hct 40.9, MCV 91.1, MCH 28.7, MCHC 31.5 L, RDW Std Deviation 49.8 H, RDW Coeff of Brea 14.9 H, Plt Count 238, MPV 9.2, PT 12.8, INR 1.0, Sodium 139, Potassium 3.8, Chloride 110 H, Carbon Dioxide 27.0, Anion Gap 2 L, BUN 15, Creatinine 0.78, Estim Creat Clear Calc 107.79, Est GFR (MDRD) Af Amer 99, Est GFR (MDRD) Non-Af 82, BUN/Creatinine Ratio 19.1, Glucose 113 H, Hemoglobin A1c 8.9 H, Calcium 8.3 L, TSH 3.89 H 10/21/23 08:08: POC Glucose 75 10/21/23 12:45: Urine Test Negative Radiography Diagnostic Testing: Radiology Impression Foot X-Ray 10/20/23 16:00 IMPRESSION: Normal x-ray examination of the foot. Electronically Signed: Zeferino Duong MD at 16:29 EST , Physical Exam Const alert, oriented x3, no apparent distress and well nourished General Appearance: cooperative and well developed HEENT normocephalic, head/scalp atraumatic, moist oral mucous membranes and oropharynx normal Eyes PERRL and EOMs intact bilaterally Neck no lymphadenopathy, supple and no JVD Lymph Lymphatic: no lymphadenopathy noted and no lymphedema noted Resp normal respiratory effort, normal air movement and clear to auscultation bilaterally Cardio regular rate, regular rhythm, S1 normal heart sound, S2 normal heart sound and no murmurs GI normal to inspection, nondistended, normoactive bowel sounds, soft to palpation, non-tender and non-distended Extremity Extremity Narrative: left great toe wrapped in bandage Skin Skin Narrative: left great toe wrapped in bandage Neuro CN's II-XII intact bilaterally, no focal motor deficits, no sensory deficits noted and deep tendon reflexes 2+ bilaterally Motor Exam: strength 5/5 throughout Psych thought process normal, cooperative and affect normal Appearance: appropriate Assessment & Plan Assessment/Plan (1) Osteomyelitis of great toe of left foot: PLAN: Plan #Osteomyelitis of left great toe * podiatry on board * MRI of the left foot on 10/13/2023 showed n evidence of roberta osteomyelitis and showed moderate subcutaneous soft tissue edema along the dorsum of the foot and with stress edema in proximal and distal phalanges of great toe * Per podiatry, for amputation of the left great toe on 10/22/2023. * ID also on board. Currently on IV linezolid and Zosyn. * Wound care also on board. * #Type 2 diabetes mellitus with neuropathy * Currently on insulin pump. A1c done on admission is 8.9. Insulin sliding scale. Accu-Cheks ACHS. * To follow-up with endocrinology on outpatient basis. #Hypertension: On hydrochlorothiazide and losartan. IV hydralazine as needed. #Hyperlipidemia: On statin #Anxiety and depression: On duloxetine and trazodone as well as hydroxyzine #GERD: On PPI #Asthma: On breathing treatments bronchodilators. #Chronic dizziness: Meclizine #Hypothyroidism: On Synthroid. TSH is 3.89. Follow-up with endocrinology on outpatient basis. #Morbid obesity: BMI is 44.7. Complicates acute care, expected recovery and p rognosis. DVT prophylaxis: Lovenox Charges/Coding Visit Charges Inpatient E&M: 72888 Subs Hosp L2
[2023-10-21 14:58] VITALS: BP 152/78; PULSE 72; RESP 18; TEMP 36.9; O2SAT 94
[2023-10-21] MEDS: Acetaminophen 325 MG Tablet 650 MG PO (15:05)
[2023-10-21 21:07] VITALS: BP 173/83; PULSE 84; RESP 18; TEMP 36.2; O2SAT 97
[2023-10-21] MEDS: Atorvastatin Calcium 80 MG Tablet PO (21:11)
[2023-10-21] MEDS: Montelukast 10 MG Tablet PO (21:11)
[2023-10-21] MEDS: tiZANidine HCl 2 MG Tablet 4 MG PO (21:11)
[2023-10-21] MEDS: Losartan Potassium 100 MG Tablet PO (21:30)
[2023-10-21] MEDS: hydrOXYzine PAM 25 MG Capsule 50 MG PO (21:30)
[2023-10-21 22:13] VITALS: BP 140/64; PULSE 71
[2023-10-21] MEDS: traZODone 100 MG Tablet PO (22:50)
[2023-10-22] VITALS (10 sets, daily range): BP systolic 113–159; BP diastolic 59–83; PULSE 63–81; RESP 16–18; TEMP 36.2–37; O2SAT 92–99; BMI 44.6
--- NOTE | 2023-10-22 | BON_PTH ---
PATHOLOGY RESULTS PATIENT: KATHRYN ESQUIVEL LOC: MS3 U#:[id number] AGE/SX: 52/F ROOM: WA318 RE10/20/[address]: Dr. Jenni Robertson MD : 1970 BED: 1 DIS: 10/24/2023 SPEC #: [id number] RECD: 10/22/23 18:31 STATUS: GALILEO SZYMANSKI #: [id number] MARIE: 10/22/23 00:[address]: Jenni Robertson DEPT: SURGICAL PATHOLOGY RECD BY: Ab Medina ENTERED: 10/23/23 08:45 SP TYPE: Bone OTHR DR: DO Dr. Shirley Dempsey MD Dr. Jeffrey Wunning, DPM Dr. Roger Lorenzo MD Tissues: Bone of foot, NOS Procedures: Decalcification bone/plaque Surgery Specimen Level IV HEADER OPERATION: Endoscopic gastroc resection, partial excision of bone. PRE-OP DIAGNOSIS: Osteomyelitis of great toe of left foot, diabetic foot infection TISSUE SUBMITTED: Bone culture left hallux MICROSCOPIC DIAGNOSIS Bone of left great toe, excision: Chronic reparative and reactive change. No evidence of acute osteomyelitis. AM:jt 10/27/2023 MICROSCOPIC DESCRIPTION Slides are reviewed. GROSS DESCRIPTION Received in fixative is one container labeled with the patient's name and designated Bone culture left hallux. The specimen consists of two pieces of bone measuring in aggregate 1.5 x 1.0 x 0.4 cm. The entire specimen is submitted in one cassette after decalcification. / SJ:jt 10/23/2023 TC:5 CPT: 86354, 79810
[2023-10-22] MEDS: Piperacil/Tazobactam 3.375 GM in 0.9% Normal Saline (50mL MB+) 50 ML IV ×3 (05:17→22:52)
[2023-10-22] MEDS: Levothyroxine 75 MCG Tablet PO (05:17)
[2023-10-22 06:36] LABS: Absolute Lymphocyte Count 2.94 X10^3/uL (0.83-4.51); Absolute Neutrophil Count 5.3 X10^3/uL (2.0-7.7); Basophil# 0.04 X10^3/uL; Basophil% 0.4 % (0-1); Eosinophil# 0.26 X10^3/uL; Eosinophils% 2.8 % (0-5); Hematocrit 38.8 % (37-47); Lymphocyte # 2.94 X10^3/ul (0.83-4.51); Lymphocyte % 32.2 % (19-41); Mean Corp Hgb Conc 30.9 g/dL (32-36); Mean Corpuscular Hgb 28.4 pg (27.0-32.0); Mean Corpuscular Volume 91.9 fL (81-99); Mean Platelet Vol. 9.5 fl (6.2-12.0); Monocyte# 0.62 X10^3/uL; Monocyte% 6.8 % (0-10); NRBC Flagged by Analyzer 0 % (0-5); Neutrophil # 5.26 X10^3/uL (2.7-7.7); Neutrophil % 57.6 % (47-70); Platelet Count 248 K/mm3 (150-450); RBC Distribution Width CV 15.1 % (11.6-14.6); RBC Distribution Width SD 51.6 fl (35.1-43.9); Red Blood Count 4.22 M/mm3 (4.2-5.4); White Blood Count 9.1 K/mm3 (4.4-11.0)
[2023-10-22 07:05] LABS: Anion Gap -1 (5-15); BUN 16 mg/dL (7-18); BUN/Creat Ratio 18.3 RATIO (10-20); Calcium,Total 8.6 mg/dL (8.5-10.1); Chloride 111 mmol/L (98-107); Creatinine, Serum 0.87 mg/dL (0.55-1.02); EST Glomerular Filtration Rate 73 mL/min (>60); Est Glom Filt Rate - Afr Amer 88 mL/min (>60); Estimated Creatinine Clearance 96.64 ml/min; Glucose 130 mg/dL (74-106); Potassium 4.1 mmol/L (3.5-5.1); Sodium Level 139 mmol/L (136-145)
[2023-10-22] MEDS: Gabapentin 600 MG Tablet PO ×2 (08:03→21:10)
[2023-10-22] MEDS: hydroCHLOROthiazide 12.5mg 12.5 MG PO (08:03)
[2023-10-22] MEDS: Meclizine HCl 25 MG Tablet PO ×2 (08:03→21:11)
[2023-10-22] MEDS: Pantoprazole Sodium 20 MG Tablet PO ×2 (08:03→21:10)
--- NOTE | 2023-10-22 08:16 | WOUNDNOTE ---
Pt is scheduled for surgery later today. will leave dressing in place. pt currently resting with eyes closed.
[2023-10-22] MEDS: Linezolid 600 MG 600 MG/300 ML BAG 200 MG IV ×2 (09:41→21:07)
[2023-10-22 11:12] LABS: Bedside Glucose 174 mg/dL (74-106)
--- NOTE | 2023-10-22 12:02 | PN_ITS ---
Subjective Subjective Patient seen and examined. She had no active complaints today. Review of systems otherwise negative. She is due for surgery today. Objective Data Objective Data Vital Signs: Vital Signs Temp Pulse Resp BP Pulse Ox O2 Del Method 98.2 F 71 16 142/72 H 97 Room Air 10/22/23 08:11 10/22/23 08:11 10/22/23 08:11 10/22/23 08:11 10/22/23 08:11 10/22/23 08:11 Oxygen Delivery Method Room Air Weight: 260 lb 2.327 oz Body Mass Index (BMI) 44.6 Intake & Output: Intake and Output for Last 24 Hours 10/20/23 10/21/23 10/22/23 23:59 23:59 23:59 Intake Total 700 / 700 1650 / 1650 400 / 400 Balance 700 / 700 1650 / 1650 400 / 400 Lab / Micro Data 10/22/23 05:45 10/22/23 05:45 Labs: Laboratory Results - last 24 hr 10/21/23 12:45: Urine Test Negative 10/22/23 05:45: WBC 9.1, RBC 4.22, Hgb 12.0, Hct 38.8, MCV 91.9, MCH 28.4, MCHC 30.9 L, RDW Std Deviation 51.6 H, RDW Coeff of Brea 15.1 H, Plt Count 248, MPV 9.5, Immature Gran % (Auto) 0.200, Neut % (Auto) 57.6, Lymph % (Auto) 32.2, [place] % (Auto) 6.8, Eos % (Auto) 2.8, Baso % (Auto) 0.4, Absolute Neuts (auto) 5.3, Absolute Lymphs (auto) 2.94, Nucleated RBC % 0, Sodium 139, Potassium 4.1, Chloride 111 H, Carbon Dioxide 29.0, Anion Gap -1 L, BUN 16, Creatinine 0.87, Estim Creat Clear Calc 96.64, Est GFR (MDRD) Af Amer 88, Est GFR (MDRD) Non-Af 73, BUN/Creatinine Ratio 18.3, Glucose 130 H, Calcium 8.6 10/22/23 10:54: POC Glucose 174 H Radiography Diagnostic Testing: Radiology Impression Ankle Brachial Index 10/20/23 15:51 Interpretation Summary Right OSVALDO 1.32, normal. Doppler/PVR waveforms of the right leg normal at rest. Left OSVALDO 1.29, normal. Doppler/PVR waveforms of the left leg normal at rest. Ordering Physician: Angelic Naidu Referring Physician: Shirley Garcia Performed By: Chica Nunez RVT Physical Exam Const alert, oriented x3, no apparent distress and well nourished General Appearance: cooperative, comfortable and well developed HEENT normocephalic, head/scalp atraumatic, hearing grossly normal bilaterally, nasal mucous membranes and turbinates normal, moist oral mucous membranes and oropharynx normal Eyes PERRL, EOMs intact bilaterally and conjunctivae normal Neck full ROM, no lymphadenopathy, supple and no JVD Lymph Lymphatic: no lymphadenopathy noted and no lymphedema noted Chest inspection of chest normal Resp normal respiratory effort, normal air movement, no use of accessory muscles and clear to auscultation bilaterally Cardio regular rate, regular rhythm, S1 normal heart sound, S2 normal heart sound, no murmurs and peripheral pulses 2+ throughout GI normal to inspection, nondistended, normoactive bowel sounds, soft to palpation, non-tender and non-distended Back/Spine normal ROM Extremity full ROM and no pedal edema Extremity Narrative: left great toe wrapped in bandage Skin Skin Narrative: left great toe wrapped in bandage Neuro CN's II-XII intact bilaterally, moves all extremities, no focal motor deficits, no sensory deficits noted and deep tendon reflexes 2+ bilaterally Speech: speech normal Motor Exam: strength 5/5 throughout Psych mental status grossly normal, thought process normal, cooperative and affect normal Appearance: appropriate Assessment & Plan Assessment/Plan (1) Osteomyelitis of great toe of left foot: PLAN: Plan #Osteomyelitis of left great toe * podiatry on board * MRI of the left foot on 10/13/2023 showed n evidence of roberta osteomyelitis and showed moderate subcutaneous soft tissue edema along the dorsum of the foot and with stress edema in proximal and distal phalanges of great toe * Per podiatry, for amputation of the left great toe on 10/22/2023. * ID also on board. Currently on IV linezolid and Zosyn. * Wound care also on board. * for surgery today * #Type 2 diabetes mellitus with neuropathy * Currently on insulin pump. A1c done on admission is 8.9. Insulin sliding scale. Accu-Cheks ACHS. * To follow-up with endocrinology on outpatient basis. #Hypertension: On hydrochlorothiazide and losartan. IV hydralazine as needed. #Hyperlipidemia: On statin #Anxiety and depression: On duloxetine and trazodone as well as hydroxyzine #GERD: On PPI #Asthma: On breathing treatments bronchodilators. #Chronic dizziness: Meclizine #Hypothyroidism: On Synthroid. TSH is 3.89. Follow-up with endocrinology on outpatient basis. #Morbid obesity: BMI is 44.7. Complicates acute care, expected recovery and prognosis. DVT prophylaxis: Lovenox Charges/Coding Visit Charges Inpatient E&M: 13358 Subs Hosp L2
[2023-10-22] MEDS: 0.9% Normal Saline (1000mL) 1,000 ML 15 ML IV (14:47)
[2023-10-22 15:43] LABS: Troponin-I HS 19 pg/mL (3.0-54.0)
[2023-10-22] MEDS: Bupivacaine Mpf 0.5% 30 ML VIAL (16:58)
--- NOTE | 2023-10-22 17:13 | OP.PCM_ITS ---
Problems Associated Problem List Diagnoses (1) Osteomyelitis of great toe of left foot: (2) Tightness of left heel cord: (3) Acute painful diabetic polyneuropathy: Report of Operation Date of Procedure: 10/22/23 Pre-Operative Diagnosis: 1. Osteomyelitis, hallux, left foot 2. Tight Achilles cord, left lower extremity 3. Diabetes mellitus type 2 with peripheral neuropathy Post-Operative Diagnosis: 1. Osteomyelitis, hallux, left foot 2. Tight Achilles cord, left lower extremity 3. Diabetes mellitus type 2 with peripheral neuropathy Surgery/Procedure Performed:: 1. Endoscopic gastroc recession, left lower extremity 2. Partial excision of bone, left hallux 3. Advancement flap closure, left hallux Description of Surgical Findings:: 1. Evidence of periosteal reaction and softening of the bone to the distal phalanx, left hallux 2. Increased range of motion past neutral to left lower extremity after gastroc recession. Surgeon: Asher Velazco chemical lab technician: Treva Herrera Type of Anesthesia: General and Local Anesthesiologist: Ricardo Moses Special Medications: Per anesthesia Specimen's removed: 1. Distal phalanx to microbiology culture and sensitivity 2. Distal phalanx to pathology Drains: None Estimated Blood Loss (mL): 20 mL Fluids Replaced: Per anesthesia Description of Procedure: Indications For Operation: Ms. Minaya is a 52-year-old diabetic female who was admitted to [facility] for concern of osteomyelitis to the left hallux. Patient is well-known to our office and has been seen by Dr. Muniz for outpatient wound care. The patient has failed 2 courses of oral antibiotics. The patient received plain film x-rays in the office which showed concern for increased per iosteal reaction to the distal phalanx of the left hallux. The patient also underwent MRI with concerns of osteomyelitis to the distal phalanx of the left hallux. Due to the chronicity of the patient's full-thickness wound and concern for osteomyelitis of the left hallux it had deemed necessary at this time to send the patient to the hospital for admission, medical clearance and IV antibiotics so that she may be taken to the operating room to perform the above procedure. The nature of the problem, anticipated procedures, postop recovery/convalences and risk/complications include but not limited to infection, wound healing complications, hypertrophic scarring, numbness, tingling, chronic pain, CRPS, over and under correction, recurrence of deformity, DVT and or PE and the need for further surgery have been discussed in great detail with the patient. All questions have been answered to the patient's satisfaction. There are no guarantees given as to the outcome of the procedure. Description of Procedure: Under mild sedation, the patient was brought into the operating room and placed on the operating table in supine position. Once the patient was under general anesthesia with laryngeal mask airway, the left lower extremity was blocked using approximately 10 cc 0.5% Marcaine plain. Next, a well-padded thigh tourniquet was applied to the left lower extremity. Next, the left lower extremity was prepped and draped in normal aseptic manner. Next, a timeout was then undertaken verifying the correct patient, extremity, visibility of preoperative markings, availability of the equipment. Procedure #1, endoscopic gastroc recession, left lower extremity Next, attention was directed to the aponeurosis of the gastrocnemius muscle. A small stab incision was placed approximately 2 to 3 cm from the gastroc insertion. Using the Arthrex cracking and fanning machine operator the aponeurosis was bow strong and then advanced to the lateral aspect of the left lower extremity. Once tenting of the skin was identified a small stab incision was made with a 15 blade. Using the Arthrex obturator and cannula, it was advanced through both incisions. Using th e Arthrex mini scope there showed evidence of the aponeurosis of the gastrocnemius muscle. There was evidence of a positive Silfverskiold test for gastrocnemius equinus prior to surgery. Using the wraps the muscle fibers were removed from the aponeurosis tissue. Using the Arthrex mini scope and hook blade careful incision across the aponeurosis was made half laterally then half medially until released. After release of the aponeurosis the ankle was put through range of motion with the knee extended as well as flexed and showed to be increased past 90 in both positions. Both incisions were flushed with copious harry of warm saline. The skin was reapproximated and closed with 3-0 nylon in simple interrupted suture technique. Procedure #2, partial excision of bone, left hallux Next, attention was directed to the left hallux. There showed evidence of indurated skin with concerns of osteomyelitis. The incision was marked out in a trapdoor fashion encompassing the nail bed. Using a #15 blade a trapdoor type incision was made around the distal left hallux. The skin was carefully dissected off the distal phalanx and removed, and passed the back table to be discarded. Partial excision of the distal phalanx was carried out with pickup and 15 blade and the distal phalanx was removed in total and passed to the back table to be split in half to send half to pathology and half to micro for culture and sensitivity. Procedure #3, advancement flap closure, left hallux Next, the left thigh tourniquet was deflated and reperfusion was noted to the left lower extremity. Further attention was directed to the remaining soft tissue flap of the left hallux. There showed evidence of sanguinous drainage. There was no sign of infection after flushing the flap with copious harry of normal saline. All bleeders were cauterized as necessary. Remaining tissue was closed and advancement flap fashion, the subcutaneous tissue was closed with 3-0 Vicryl in buried suture technique. The skin was advanced and reapproximated and closed using 3-0 nylon in simple interrupted suture technique. The left lower extremity was wiped clean and patted dry. All incisions were dressed with Betadine soaked Adaptic, 4 x 4's, dry sterile dressing and a 2 layer Munguia AO splint was donned to the left lower extremity in 90 degree fashion. The patient tolerated the procedure and anesthesia well and apparent satisfactory condition and was transported to the PACU for further monitoring prior to discharge back to the floor. Vital signs stable and vascular status intact to all digits bilateral. Post Operative Plan: Weightbearing: Nonweightbearing to left lower extremity. Full weightbearing to the right lower extremity Antibiotics: IV antibiotics Zosyn DVT Prophylaxis: Gris Carrillo: None Dressing: Betadine soaked Adaptic, dry sterile dressing, 2 layer Munguia compression AO splint at 90 degrees. X-Rays: None Pain Medication: Percocet 5/325, Dilaudid 0.5 mg as needed Follow-up: The patient can follow-up with Dr. Velazco at the wound care center once cleared by medicine for discharge. The patient is cleared from a podiatry perspective to discharge home. Grafts/Implants Used: None Complications None Admit VTE Documentation VTE Present on Admission: No VTE Mechan Device Prophylaxis: SCD's VTE Pharm Prophylaxis ordered?: Yes
[2023-10-22 17:57] LABS: Bedside Glucose 143 mg/dL (74-106)
[2023-10-22] MEDS: Oxycodone/Apap 5/325 Tablet PO (18:10)
[2023-10-22] MEDS: 0.9% Saline Lock 10 ML Syringe IV (18:10)
[2023-10-22] MEDS: Montelukast 10 MG Tablet PO (21:10)
[2023-10-22] MEDS: tiZANidine HCl 2 MG Tablet 4 MG PO (21:10)
[2023-10-22] MEDS: Losartan Potassium 100 MG Tablet PO (21:10)
[2023-10-22] MEDS: Atorvastatin Calcium 80 MG Tablet PO (21:10)
[2023-10-22] MEDS: traZODone 100 MG Tablet PO (22:53)
[2023-10-23] VITALS (7 sets, daily range): BP systolic 117–158; BP diastolic 62–68; PULSE 67–85; RESP 16–18; TEMP 36.4–37.2; O2SAT 91–97
--- NOTE | 2023-10-23 02:37 | PCM.HOSP.N ---
Hospitalist Note Patient insulin pump depleted. Requested attempt to have pharmacy refill but if unable will transition to accu checks with [facility] temporarily.
[2023-10-23] MEDS: Piperacil/Tazobactam 3.375 GM in 0.9% Normal Saline (50mL MB+) 50 ML IV ×3 (05:50→22:29)
[2023-10-23] MEDS: Levothyroxine 75 MCG Tablet PO (05:51)
[2023-10-23] MEDS: Oxycodone/Apap 5/325 Tablet PO ×2 (05:58→13:57)
[2023-10-23] MEDS: Insulin Lispro 100 UNIT/ML INSULN.PEN SC ×2 (06:09→11:55)
[2023-10-23 06:24] LABS: Bedside Glucose 215 mg/dL (74-106)
[2023-10-23 07:34] LABS: Absolute Lymphocyte Count 1.92 X10^3/uL (0.83-4.51); Absolute Neutrophil Count 11.5 X10^3/uL (2.0-7.7); Basophil# 0.02 X10^3/uL; Basophil% 0.1 % (0-1); Eosinophil# 0.03 X10^3/uL; Eosinophils% 0.2 % (0-5); Hematocrit 46.1 % (37-47); Hemoglobin 13.8 g/dL (12.0-15.0); Lymphocyte # 1.92 X10^3/ul (0.83-4.51); Lymphocyte % 13.7 % (19-41); Mean Corp Hgb Conc 29.9 g/dL (32-36); Mean Corpuscular Hgb 27.7 pg (27.0-32.0); Mean Corpuscular Volume 92.6 fL (81-99); Monocyte# 0.47 X10^3/uL; Monocyte% 3.4 % (0-10); NRBC Flagged by Analyzer 0 % (0-5); Neutrophil # 11.52 X10^3/uL (2.7-7.7); Neutrophil % 82.2 % (47-70); Platelet Count 250 K/mm3 (150-450); RBC Distribution Width CV 14.9 % (11.6-14.6); RBC Distribution Width SD 50.9 fl (35.1-43.9); Red Blood Count 4.98 M/mm3 (4.2-5.4)
[2023-10-23 08:01] LABS: Anion Gap 2 (5-15); BUN 15 mg/dL (7-18); BUN/Creat Ratio 15.7 RATIO (10-20); Calcium,Total 9.1 mg/dL (8.5-10.1); Chloride 105 mmol/L (98-107); Creatinine, Serum 0.96 mg/dL (0.55-1.02); EST Glomerular Filtration Rate 65 mL/min (>60); Est Glom Filt Rate - Afr Amer 79 mL/min (>60); Estimated Creatinine Clearance 87.58 ml/min; Glucose 270 mg/dL (74-106); Potassium 4.2 mmol/L (3.5-5.1); Sodium Level 134 mmol/L (136-145)
[2023-10-23] MEDS: Fluticasone 0.05% 1 SPRAY NASAL.SRY 2 SPRAY NASAL (08:48)
[2023-10-23] MEDS: Pantoprazole Sodium 20 MG Tablet PO ×2 (08:49→19:55)
[2023-10-23] MEDS: Meclizine HCl 25 MG Tablet PO ×2 (08:49→19:56)
[2023-10-23] MEDS: hydroCHLOROthiazide 12.5mg 12.5 MG PO (08:49)
[2023-10-23] MEDS: Gabapentin 600 MG Tablet PO ×2 (08:49→20:06)
--- NOTE | 2023-10-23 09:59 | CASEMGMT ---
Addendum entered by Wilfred Krishnan 10/23/23 15:54: [facility] called and they do not carry either piece of equipment. [facility] called and they state they do not have the sling. They do have the transfer bench available but they state they do not run insurance and the pt is wanting these items through her insurance. Addendum entered by Wilfred Krishnan 10/23/23 10:07: [facility] states they cannot get them. Will discuss with pt the options to go through the [employer] for the extended tub bench or [employer] for these pieces of equipment. Original Note: Per PT/OT pt is requesting a knee sling for her walker and also an extended bench for her tub. Duane from [facility] [place] they do not carry or order either of these items. [facility] called and they are seeing if they have the capability. Awaiting return call.
--- NOTE | 2023-10-23 10:12 | PN_ITS ---
Subjective Subjective Patient seen and examined. She had no active complaints and had an uneventful night. Review of systems is otherwise negative. She has remained hemodynamically stable. She had partial excision of the left hallux bone yesterday. Today is POD 1. Objective Data Objective Data Vital Signs: Vital Signs Temp Pulse Resp BP Pulse Ox O2 Del Method O2 Flow Rate 98.3 F 78 16 139/65 H 97 Room Air 2 10/23/23 08:45 10/23/23 08:45 10/23/23 08:45 10/23/23 08:45 10/23/23 08:45 10/23/23 08:54 10/22/23 22:51 Oxygen Flow Rate (L/min) 2 Oxygen Delivery Method Room Air Weight: 260 lb 2.327 oz Body Mass Index (BMI) 44.6 Intake & Output: Intake and Output for Last 24 Hours 10/21/23 10/22/23 10/23/23 23:59 23:59 23:59 Intake Total 1650 / 1650 1476.75 / 1476.75 400 / 400 Balance 1650 / 1650 1476.75 / 1476.75 400 / 400 Lab / Micro Data 10/23/23 07:19 10/23/23 07:19 Labs: Laboratory Results - last 24 hr 10/22/23 05:45: Troponin I High Sens 19 10/22/23 10:54: POC Glucose 174 H 10/22/23 17:31: POC Glucose 143 H 10/23/23 06:05: POC Glucose 215 H 10/23/23 07:19: WBC 14.0 H, RBC 4.98, Hgb 13.8, Hct 46.1, MCV 92.6, MCH 27.7, MCHC 29.9 L, RDW Std Deviation 50.9 H, RDW Coeff of Brea 14.9 H, Plt Count 250, MPV 9.0, Immature Gran % (Auto) 0.400, Neut % (Auto) 82.2 H, Lymph % (Auto) 13.7 L, [place] % (Auto) 3.4, Eos % (Auto) 0.2, Baso % (Auto) 0.1, Absolute Neuts (auto) 11.5 H, Absolute Lymphs (auto) 1.92, Nucleated RBC % 0, Sodium 134 L, Potassium 4.2, Chloride 105, Carbon Dioxide 27.0, Anion Gap 2 L, BUN 15, Creatinine 0.96, Estim Creat Clear Calc 87.58, Est GFR (MDRD) Af Amer 79, Est GFR (MDRD) Non-Af 65, BUN/Creatinine Ratio 15.7, Glucose 270 H, Calcium 9.1 Physical Exam Const alert, oriented x3, no apparent distress and well nourished General Appearance: cooperative, comfortable and well developed HEENT normocephalic, head/scalp atraumatic, hearing grossly normal bilaterally, nasal mucous membranes and turbinates normal, moist oral mucous membranes and oropharynx normal Eyes PERRL, EOMs intact bilaterally and conjunctivae normal Neck full ROM, no lymphadenopathy, supple and no JVD Lymph Lymphatic: no lymphadenopathy noted and no lymphedema noted Chest inspection of chest normal Resp normal respiratory effort, normal air movement, no use of accessory muscles and clear to auscultation bilaterally Cardio regular rate, regular rhythm, S1 normal heart sound, S2 normal heart sound, no murmurs and peripheral pulses 2+ throughout GI normal to inspection, nondistended, normoactive bowel sounds, soft to palpation, non-tender and non-distended Back/Spine normal ROM Extremity full ROM and no pedal edema Extremity Narrative: left foot wrapped in bandage. Skin Skin Narrative: left foot wrapped in bandage. Neuro CN's II-XII intact bilaterally, moves all extremities, no focal motor deficits, no sensory deficits noted and deep tendon reflexes 2+ bilaterally Speech: speech normal Motor Exam: strength 5/5 throughout Psych mental status grossly normal, thought process normal, cooperative and affect normal Appearance: appropriate Assessment & Plan Assessment/Plan (1) Osteomyelitis of great toe of left foot: PLAN: Plan #Osteomyelitis of left great toe * podiatry on board * MRI of the left foot on 10/13/2023 showed no evidence of roberta osteomyelitis and showed moderate subcutaneous soft tissue edema along the dorsum of the f oot and with stress edema in proximal and distal phalanges of great toe * S/p partial excision of the left hallux wound with advancement flap closure. * ID also on board. Currently on IV linezolid and Zosyn. * Wound care also on board. * for surgery today * wbc is 14. * per ID, for PO doxycycline and PO augmentin x 5 more days after discharge. If pathology or culture show residual osteomyelitis, then she will need 6 weeks of antibiotics PO. * #Type 2 diabetes mellitus with neuropathy * Currently on insulin pump. A1c done on admission is 8.9. Insulin sliding scale. Accu-Cheks ACHS. * To follow-up with endocrinology on outpatient basis. * blood sugar running in the 300s, and she has run out of her insulin in her pump #Hypertension: On hydrochlorothiazide and losartan. IV hydralazine as needed. #Hyperlipidemia: On statin #Anxiety and depression: On duloxetine and trazodone as well as hydroxyzine #GERD: On PPI #Asthma: On breathing treatments bronchodilators. #Chronic dizziness: Meclizine #Hypothyroidism: On Synthroid. TSH is 3.89. Follow-up with endocrinology on outpatient basis. #Morbid obesity: BMI is 44.7. Complicates acute care, expected recovery and prognosis. DVT prophylaxis: Lovenox Charges/Coding Visit Charges Inpatient E&M: 64989 Subs Hosp L2
--- NOTE | 2023-10-23 10:15 | PCM.PN.ID ---
Physical Exam Narrative Feeling fine, no pain in foot, no fever Const alert and no apparent distress General Appearance: cooperative Resp normal air movement and clear to auscultation bilaterally Cardio regular rate and regular rhythm GI soft to palpation, non-tender and non-distended Extremity Extremity Narrative: L foot wrapped Skin no rashes or lesions noted ID ID: Route of nutrition/ use of supplements: [] Nutritional Intake: [] IV Site: [] Carrillo Catheter: [] Assessment & Plan Assessment/Plan (1) Osteomyelitis of great toe of left foot: PLAN: OR 10/22/[address] Velazco. On linezolid/zosyn. Last wound cx in 08/2023 with ecoli, GBS, MRSA, strep, anaerobes. Plan is for short course of po doxy 100mg bid and augmentin 875mg bid for 5 more days at discharge. If path or clearance cx show residual osteo, will need 6 weeks po abx. Will follow, thank you (2) Neuropathy: (3) History of diabetes mellitus:
--- NOTE | 2023-10-23 10:16 | NURSING ---
Pt reports that her personal insulin monitor is reading 317. Pt says that her insulin pump would normally give a bolus at this time and was wondering if she could get a dose of insulin to cover this elevated blood sugar. Dr Robertson ordered 12u of humalog insulin to cover this elevated blood sugar. Pt to have a visitor bring in her home insulin for personal pump later today, unsure what time.
[2023-10-23] MEDS: Insulin Lispro 100 UNIT/ML INSULN.PEN 12 UNIT SC (10:40)
[2023-10-23] MEDS: Linezolid 600 MG 600 MG/300 ML BAG 200 MG IV ×2 (10:41→19:56)
--- NOTE | 2023-10-23 16:04 | CASEMGMT ---
TC to [facility] to see if they have a knee sling available for a walker, they do not. TC to [facility], left requesting this information as well. Will await returned call.
[2023-10-23] MEDS: tiZANidine HCl 2 MG Tablet 4 MG PO (19:55)
[2023-10-23] MEDS: Atorvastatin Calcium 80 MG Tablet PO (19:55)
[2023-10-23] MEDS: Montelukast 10 MG Tablet PO (19:55)
[2023-10-23] MEDS: Losartan Potassium 100 MG Tablet PO (19:56)
--- NOTE | 2023-10-23 20:12 | NURSING ---
GLUCOSE on pt monitor 195
[2023-10-23] MEDS: traZODone 100 MG Tablet PO (22:29)
[2023-10-24] MEDS: Piperacil/Tazobactam 3.375 GM in 0.9% Normal Saline (50mL MB+) 50 ML IV (05:57)
[2023-10-24] MEDS: Levothyroxine 75 MCG Tablet PO (05:57)
[2023-10-24 06:03] VITALS: BP 120/64; PULSE 64; RESP 16; TEMP 36.3; O2SAT 95
--- NOTE | 2023-10-24 06:05 | NURSING ---
GLUCOSE 116 ON DEXCOM, PT doesnt want fingerstick
[2023-10-24 06:34] LABS: Absolute Lymphocyte Count 3.38 X10^3/uL (0.83-4.51); Absolute Neutrophil Count 5.5 X10^3/uL (2.0-7.7); Basophil# 0.04 X10^3/uL; Basophil% 0.4 % (0-1); Eosinophil# 0.21 X10^3/uL; Eosinophils% 2.1 % (0-5); Hematocrit 38.9 % (37-47); Hemoglobin 12.1 g/dL (12.0-15.0); Lymphocyte # 3.38 X10^3/ul (0.83-4.51); Lymphocyte % 34.5 % (19-41); Mean Corp Hgb Conc 31.1 g/dL (32-36); Mean Corpuscular Hgb 28.7 pg (27.0-32.0); Mean Corpuscular Volume 92.2 fL (81-99); Mean Platelet Vol. 9.4 fl (6.2-12.0); Monocyte# 0.66 X10^3/uL; Monocyte% 6.7 % (0-10); NRBC Flagged by Analyzer 0 % (0-5); Neutrophil # 5.48 X10^3/uL (2.7-7.7); Neutrophil % 55.9 % (47-70); Platelet Count 225 K/mm3 (150-450); RBC Distribution Width CV 15.2 % (11.6-14.6); RBC Distribution Width SD 51.1 fl (35.1-43.9); Red Blood Count 4.22 M/mm3 (4.2-5.4); White Blood Count 9.8 K/mm3 (4.4-11.0)
[2023-10-24 07:08] LABS: Anion Gap 3 (5-15); BUN 29 mg/dL (7-18); BUN/Creat Ratio 23.8 RATIO (10-20); Calcium,Total 8.7 mg/dL (8.5-10.1); Chloride 106 mmol/L (98-107); Creatinine, Serum 1.22 mg/dL (0.55-1.02); EST Glomerular Filtration Rate 49 mL/min (>60); Est Glom Filt Rate - Afr Amer 60 mL/min (>60); Estimated Creatinine Clearance 68.92 ml/min; Glucose 142 mg/dL (74-106); Potassium 3.8 mmol/L (3.5-5.1); Sodium Level 136 mmol/L (136-145)
[2023-10-24] MEDS: Pantoprazole Sodium 20 MG Tablet PO (09:51)
[2023-10-24] MEDS: Gabapentin 600 MG Tablet PO (09:51)
[2023-10-24] MEDS: hydroCHLOROthiazide 12.5mg 12.5 MG PO (09:52)
[2023-10-24] MEDS: Meclizine HCl 25 MG Tablet PO (09:52)
[2023-10-24 10:02] VITALS: BP 158/89; PULSE 74; RESP 18; TEMP 36.6; O2SAT 97
[2023-10-24] MEDS: Linezolid 600 MG 600 MG/300 ML BAG 200 MG IV (11:18)
--- NOTE | 2023-10-24 11:21 | NURSING ---
pt on 5u continuous basal reg insulin via pump-just checked blood sugar by her scanner (refusing our) Blood sugar currently 151 (trending up)-pt bolused for late breakfast (just finished) for 16units for 32 carbs
--- NOTE | 2023-10-24 11:39 | PCM.PN.SRG ---
Subjective Subjective Ms. Tu Morin is a 52-year-old diabetic female status post endoscopic gastroc recession, partial excision of bone, advancement flap closure to left hallux. Patient is POD #2. At time of interview the patient was discharged home. Patient was seen and managed by internal medicine. Patient also had consultations by podiatry and infectious disease. Patient was discharged on p.o. doxycycline and p.o. Augmentin for 5 days. If the patient does show residual bone infection antibiotics will be extended for additional 6 weeks. Patient will follow-up next week with Dr. Velazco for evaluation. Objective Data Objective Data Vital Signs: Vital Signs Temp Pulse Resp BP Pulse Ox O2 Del Method O2 Flow Rate 97.9 F 74 18 158/89 H 97 Room Air 2 10/24/23 10:02 10/24/23 10:02 10/24/23 10:02 10/24/23 10:02 10/24/23 10:02 10/24/23 10:02 10/22/23 22:51 Oxygen Flow Rate (L/min) 2 Oxygen Delivery Method Room Air Weight: 118 kg Body Mass Index (BMI) 44.6 Intake & Output: Intake and Output for Last 24 Hours 10/22/23 10/23/23 10/24/23 23:59 23:59 23:59 Intake Total 1476.75 / 1476.75 1050 / 1050 100 / 100 Balance 1476.75 / 1476.75 1050 / 1050 100 / 100 Lab / Micro Data 10/24/23 05:55 10/24/23 05:55 Labs: Laboratory Results - last 24 hr 10/24/23 05:55: WBC 9.8, RBC 4.22, Hgb 12.1, Hct 38.9, MCV 92.2, MCH 28.7, MCHC 31.1 L, RDW Std Deviation 51.1 H, RDW Coeff of Brea 15.2 H, Plt Count 225, MPV 9.4, Immature Gran % (Auto) 0.400, Neut % (Auto) 55.9, Lymph % (Auto) 34.5, [place] % (Auto) 6.7, Eos % (Auto) 2.1, Baso % (Auto) 0.4, Absolute Neuts (auto) 5.5, Absolute Lymphs (auto) 3.38, Nucleated RBC % 0, Sodium 136, Potassium 3.8, Chloride 106, Carbon Dioxide 27.0, Anion Gap 3 L, BUN 29 H, Creatinine 1.22 H, Estim Creat Clear Calc 68.92, Est GFR (MDRD) Af Amer 60, Est GFR (MDRD) Non-Af 49 L, BUN/Creatinine Ratio 23.8 H, Glucose 142 H, Calcium 8.7 Micro: Microbiology 10/22/23 16:36 Tissue - Toe Gram Stain - Final 10/22/23 16:36 Tissue - Toe Wound Culture - Preliminary No growth-Final to follow 10/22/23 16:36 Tissue - Toe Anaerobic Culture - Preliminary No growth in 48 hours. Assessment & Plan Assessment/Plan (1) Osteomyelitis of great toe of left foot: PLAN: Patient is status post endoscopic gastroc recession, partial excision of bone, advancement flap closure to left hallux. Patient is POD #2. At time of interview the patient was discharged home. Patient was seen and managed by internal medicine. Patient also had consultations by podiatry and infectious disease. Patient was discharged on p.o. doxycycline and p.o. Augmentin for 5 days. If the patient does show residual bone infection antibiotics will be extended for additional 6 weeks. Patient will follow-up next week with Dr. Velazco for evaluation. (2) Tightness of left heel cord: (3) Acute painful diabetic polyneuropathy:
--- NOTE | 2023-10-24 12:49 | CASEMGMT ---
Addendum entered by Wilfred Krishnan 10/24/23 14:09: Per pt RN, pt was in a hurry to DC. This RN had Rx for knee sling and Extended tub bench to give the pt. The pt was not in the room and this RN was able to meet the pt in the DC lot and was given the Rx. No further needs at this time. Original Note: Return call from Kay at [facility], they do not carry knee slings.
--- NOTE | 2023-10-24 13:32 | DS.PCM_ITS ---
Providers Date of Admission: 10/20/23 Date of Discharge: 10/24/23 Primary Care Physician: Dr. Shirley Garcia MD Consultations 10/20/23 19:17 Consult: Infectious Disease Routine Consulting Provider: Roger Lorenzo Reason for Consult: Great toe osteomyelitis, wound cx w/ polymicrobial growth EMERGENT Consult: No Notified: Yes Date Notified: 10/20/23 Time Notified: 20:30 Method of Notification: Answering Service Consult: Onc/Wound/travel nurse Routine Comment: Reason for Consult:: Great toe osteomyelitis with plan for amputation Consult: Podiatry Routine Consulting Provider: Baldomero Muniz Reason for Consult: Left great toe osteomyelitis EMERGENT Consult: No Notified: Yes Date Notified: 10/20/23 Time Notified: 20:13 Method of Notification: Text Reason For Visit: LEFT GREAT TOE OSTEOMYELITIS Diagnosis Discharge Diagnosis (1) Osteomyelitis of great toe of left foot: Status: Acute Code(s): M86.9 - Osteomyelitis, unspecified (2) Neuropathy: Status: Chronic Code(s): G62.9 - Polyneuropathy, unspecified (3) History of diabetes mellitus: Status: Acute Code(s): Z86.39 - Personal history of other endocrine, nutritional and metabolic disease Plan #Osteomyelitis of left great toe * podiatry on board * MRI of the left foot on 10/13/2023 showed no evidence of roberta osteomyelitis and showed moderate subcutaneous soft tissue edema along the dorsum of the foot and with stress edema in proximal and distal phalanges of great toe * S/p partial excision of the left hallux wound with advancement flap closure. * ID also on board. Currently on IV linezolid and Zosyn. * Wound care also on board. * for surgery today * wbc is 14. * per ID, for PO doxycycline and PO augmentin x 5 more days after discharge. If pathology or culture show residual osteomyelitis, then she will need 6 weeks of antibiotics PO. * #Type 2 diabetes mellitus with neuropathy * Currently on insulin pump. A1c done on admission is 8.9. Insulin sliding scale. Accu-Cheks ACHS. * To follow-up with endocrinology on outpatient basis. * blood sugar running in the 300s, and she has run out of her insulin in her pump #Hypertension: On hydrochlorothiazide and losartan. IV hydralazine as needed. #Hyperlipidemia: On statin #Anxiety and depression: On duloxetine and trazodone as well as hydroxyzine #GERD: On PPI #Asthma: On breathing treatments bronchodilators. #Chronic dizziness: Meclizine #Hypothyroidism: On Synthroid. TSH is 3.89. Follow-up with endocrinology on outpatient basis. #Morbid obesity: BMI is 44.7. Complicates acute care, expected recovery and prognosis. DVT prophylaxis: Lovenox Medications at Discharge Home Medications albuterol sulfate 90 mcg/actuation aerosol inhaler 2 puff inhalation Q4H PRN shortness of breath or wheezing 08/30/19 atorvastatin 80 mg tablet 80 mg PO QHS cholesterol 08/30/19 duloxetine 60 mg capsule,delayed release 60 mg PO QHS DEPRESSION 03/21/20 multivitamin with minerals 1 tab PO DAILY SUPPLEMENT 03/21/20 ergocalciferol (vitamin D2) 1,250 mcg (50,000 unit) capsule 50,000 unit PO MOTH supplement 10/17/20 pantoprazole 20 mg tablet,delayed release 20 mg PO BID ACID REFLUX 11/11/20 gabapentin 600 mg tablet 600 mg PO BID NERVE PAIN 11/14/21 levothyroxine 75 mcg tablet (Levoxyl) 75 mcg PO DAILY THYROID 02/13/22 trazodone 100 mg tablet 100 mg PO QHS Sleep 02/13/22 flash glucose sensor (FreeStyle Gómez 2 Sensor kit) #2 ea 08/14/22 hydroxyzine HCl 50 mg tablet 50 mg PO BID PRN Anxiety 09/04/22 naproxen 500 mg tablet 500 mg PO BID PRN ELBOW PAIN 09/04/22 insulin pump cartridge,automated dose,BT with controller subcutaneous (Omnipod 5 G6 Intro Kit (Gen 5) subcutaneous cartridge with controller) #1 ea 12/19/22 Humalog U-100 Insulin 100 unit/mL subcutaneous solution (insulin lispro) 150 unit (1.5 mL) subcut DAILY #50 mL 02/28/23 glimepiride 4 mg tablet 4 mg PO BID DIABETES #180 tabs 04/14/23 losartan 100 mg tablet 100 mg PO QHS BLOOD PRESSURE 04/14/23 blood-glucose transmitter (Dexcom G6 Transmitter device) #1 ea 06/09/23 blood-glucose sensor (Dexcom G6 Sensor device) #3 ea 06/30/23 insulin pump cart,automated,BT (Omnipod 5 G6 Pods (Gen 5) subcutaneous cartridge) #15 ea 08/08/23 meclizine 25 mg tablet (Dramamine (meclizine)) 25 mg PO BID DIZZINESS 09/18/23 fluticasone propionate 50 mcg/actuation nasal spray,suspension 2 spray intranasal QODAY nasal congestion 10/20/23 hydrochlorothiazide 12.5 mg capsule 12.5 mg PO DAILY htn 10/20/23 montelukast 10 mg tablet 10 mg PO QHS allergies 10/20/23 tizanidine 4 mg tablet 4 mg PO QHS muscle relaxer 10/20/23 amoxicillin 875 mg-potassium clavulanate 125 mg tablet 1 tab PO BID #10 tabs 10/24/23 doxycycline hyclate 100 mg tablet 100 mg PO BID #10 tabs 10/24/23 Hospital Course Operations - (Partial excision of the left helix wound with advancement flap closure) Procedures None Summary of Care Provided Minutes Spent on Discharge: 48 Hospital Course: Patient is a 52-year-old female with a past medical history as outlined was admitted to the ED on 10/20/2023 with complaint of worsening left great toe infection. She followed with podiatry and had developed a left great toe wound about 1 to 2 months ago. Patient was diabetic and on insulin. She has been on oral antibiotics on outpatient basis but the wound was not improving so she came into the ED. She had an MRI of the left foot on outpatient basis which was concerning for osteomyelitis so she was admitted for surgery. She was started on IV linezolid and Zosyn and ID and podiatry were consulted. She had left hallux partial excision with advancement flap closure on 10/22/2023. Wound culture showed no growth at time of discharge. Per ID recommendation she was discharged home on p.o. Augmentin and p.o. doxycycline for 5 days. She is follow-up with her primary care doctor, ID and podiatry within 1 to 2 weeks. Per ID, if final pathology results come back positive osteomyelitis, oral antibiotics will be extended to 6 weeks. Patient seen and examined prior to discharge. She had no complaints and had an uneventful night. Review of systems otherwise negative. Labs and vitals reviewed. Medication reviewed and reconciled. Physical Exam Const alert, oriented x3, no apparent distress and well nourished Constitutional Narrative: General Appearance: cooperative, comfortable, well kempt and well developed HEENT normocephalic, head/scalp atraumatic, hearing grossly normal bilaterally, nasal mucous membranes and turbinates normal, moist oral mucous membranes and oropharynx normal Mouth: oral and palatal mucosa normal Eyes PERRL, EOMs intact bilaterally and conjunctivae normal Neck full ROM, no lymphadenopathy, supple and no JVD Lymph Lymphatic: no lymphadenopathy noted and no lymphedema noted Chest inspection of chest normal Resp normal respiratory effort, normal air movement, no retractions, no use of accessory muscles and clear to auscultation bilaterally Cardio regular rate, regular rhythm, S1 normal heart sound, S2 normal heart sound, no murmurs and peripheral pulses 2+ throughout GI normal to inspection, nondistended, normoactive bowel sounds, soft to palpation, non-tender and non-distended Back/Spine normal ROM Extremity full ROM and no pedal edema Extremity Narrative: left foot wrapped in bandage. Skin Skin Narrative: left foot wrapped in bandage. Neuro CN's II-XII intact bilaterally, moves all extremities, no focal motor deficits, no sensory deficits noted and deep tendon reflexes 2+ bilaterally Speech: speech normal Motor Exam: strength 5/5 throughout Psych mental status grossly normal, thought process normal, cooperative and affect normal Appearance: appropriate Weight / BMI Weight Weight: 260 lb 2.327 oz Body Mass Index (BMI) 44.6 ABG / Lab / Microbiology Data 10/24/23 05:55 10/24/23 05:55 Laboratory: Laboratory Results - last 24 hr 10/24/23 05:55: WBC 9.8, RBC 4.22, Hgb 12.1, Hct 38.9, MCV 92.2, MCH 28.7, MCHC 31.1 L, RDW Std Deviation 51.1 H, RDW Coeff of Brea 15.2 H, Plt Count 225, MPV 9.4, Immature Gran % (Auto) 0.400, Neut % (Auto) 55.9, Lymph % (Auto) 34.5, [place] % (Auto) 6.7, Eos % (Auto) 2.1, Baso % (Auto) 0.4, Absolute Neuts (auto) 5.5, Absolute Lymphs (auto) 3.38, Nucleated RBC % 0, Sodium 136, Potassium 3.8, Chloride 106, Carbon Dioxide 27.0, Anion Gap 3 L, BUN 29 H, Creatinine 1.22 H, Estim Creat Clear Calc 68.92, Est GFR (MDRD) Af Amer 60, Est GFR (MDRD) Non-Af 49 L, BUN/Creatinine Ratio 23.8 H, Glucose 142 H, Calcium 8.7 Microbiology: Microbiology 10/22/23 16:36 Tissue - Toe Gram Stain - Final 10/22/23 16:36 Tissue - Toe Wound Culture - Preliminary No growth-Final to follow 10/22/23 16:36 Tissue - Toe Anaerobic Culture - Preliminary No growth in 48 hours. D/C Instructions Discharge Diet: Low fat / Low cholesterol Discharge Activity: Return to Normal Activity Weight Bearing Status: Weight bearing as tolerated Call your doctor if your incision/area has: Continuous Slow Oozing, Sudden Increased Bleeding, Increased Pain/ Swelling, Increased Redness, Foul Smelling Discharge and Swelling at the incision site Call your doctor if you observe: Fever of 101 or Higher, Shortness of breath, Swelling in the ankles and Uncontrolled pain Meaningful Use Info Meaningful Use Diagnoses (Choose all that apply): None applicable Discharge Plan Admission Admit Date/Time: 10/20/23 17:27 Primary Reason for Your Visit: osteomyelitis of the foot Attending Provider: Jenni Robertson Primary Care Provider: Shirley Garcia Consulting Providers: Zach Morrison; Roger Lorenzo; Baldomero Muniz Instructions Patient Instructions: Osteomyelitis Dc Discharge Orders/Prescriptions Prescriptions: New doxycycline hyclate 100 mg tablet 100 mg PO BID Qty: 10 0RF amoxicillin-pot clavulanate 875-125 mg tablet 1 tab PO BID Qty: 10 0RF Continued gabapentin 600 mg tablet 600 mg PO BID levothyroxine [Levoxyl] 75 mcg tablet 75 mcg PO DAILY Rx Instructions: take 1 & 1/2 tab on sundays meclizine [Dramamine (meclizine)] 25 mg tablet 25 mg PO BID (DME) FreeStyle Gómez 2 Sensor Kit See Rx Instructions .Route Qty: 2 5RF Rx Instructions: As directed (DME) Omnipod 5 G6 Intro Kit (Gen 5) Cartridge See Rx Instructions .Route Qty: 1 0RF Rx Instructions: As directed atorvastatin 80 MG tablet 80 mg PO QHS albuterol sulfate 1 INHALER inhaler 2 puff inhalation Q4H PRN (Reason: shortness of breath or wheezing) multivitamin with minerals 1 EACH tablet 1 tab PO DAILY duloxetine 60 MG capsule,delayed release(DR/EC) 60 mg PO QHS ergocalciferol (vitamin D2) 50,000 UNIT capsule 50,000 unit PO MOTH pantoprazole 20 MG tablet 20 mg PO BID trazodone 100 mg tablet 100 mg PO QHS hydroxyzine HCl 50 mg tablet 50 mg PO BID PRN (Reason: Anxiety) naproxen 500 mg tablet 500 mg PO BID PRN (Reason: ELBOW PAIN) losartan 100 mg tablet 100 mg PO QHS tizanidine 4 mg tablet 4 mg PO QHS hydrochlorothiazide 12.5 mg capsule 12.5 mg PO DAILY Patient Comments: take 1 capsule by mouth once daily montelukast 10 mg tablet 10 mg PO QHS Patient Comments: take 1 tablet by mouth at bedtime fluticasone propionate 50 mcg/actuation spray,suspension 2 spray INTRANASAL QODAY Patient Comments: instill 2 sprays into each nostril once daily Rinse mouth after use insulin lispro [Humalog U-100 Insulin] 100 unit/mL solution 150 unit subcut DAILY Qty: 50 5RF Patient Comments: PT STATES THEY RAN OUT OF THEIR PODS RECENTLY AND HAVEN'T HAD THE CHANCE TO GET TO [facility] TO [place] [facility] MORE Rx Instructions: via insulin pump glimepiride 4 mg tablet 4 mg PO BID Qty: 180 1RF (DME) Dexcom G6 Transmitter Device See Rx Instructions .Route Qty: 1 1RF Rx Instructions: 1 transmitter q 90 days (DME) Dexcom G6 Sensor Device See Rx Instructions .Route Qty: 3 5RF Rx Instructions: 1 sensor q 10 days (DME) Omnipod 5 G6 Pods (Gen 5) Cartridge See Rx Instructions .Route Qty: 15 0RF Rx Instructions: 1 pod q 48 hrs Referrals / Follow Up: Shirley Garcia MD [Primary Care Provider] - Within 2 Weeks Baldomero Muniz DPM [Med Staff - Active Staff] - Within 1 Week Roger Lorenzo MD [Med Staff - Active Staff] - Within 1 Week Disposition Disposition (needs filled in before D/C Order can be placed): Home, Self Care Charges/Coding Visit Charges Inpatient E&M: 28515 Disch Hosp >30min
--- NOTE | 2023-10-24 13:54 | PHA.DC_ITS ---
Pharmacy [facility] has performed discharge medication reconciliation and counseling for this patient. The patient's discharge medication list was reviewed for discrepancies and discrepancies were resolved. The patient was counseled on the following discharge medications and changes in medications for homegoing were reviewed. The Reason for Use, instructions for use, and potential side effects were reviewed for all new medications. The patient's questions regarding all of their medications were answered. 1. Amoxicillin/clavulanate 875/125 mg PO BID x 5 days 2. Doxycycline 100 mg PO BID x 5 days The patient was able to verbally demonstrate an understanding of their discharge medications. Medications at Discharge Home Medications albuterol sulfate 90 mcg/actuation aerosol inhaler 2 puff inhalation Q4H PRN shortness of breath or wheezing 08/30/19 atorvastatin 80 mg tablet 80 mg PO QHS cholesterol 08/30/19 duloxetine 60 mg capsule,delayed release 60 mg PO QHS DEPRESSION 03/21/20 multivitamin with minerals 1 tab PO DAILY SUPPLEMENT 03/21/20 ergocalciferol (vitamin D2) 1,250 mcg (50,000 unit) capsule 50,000 unit PO MOTH supplement 10/17/20 pantoprazole 20 mg tablet,delayed release 20 mg PO BID ACID REFLUX 11/11/20 gabapentin 600 mg tablet 600 mg PO BID NERVE PAIN 11/14/21 levothyroxine 75 mcg tablet (Levoxyl) 75 mcg PO DAILY THYROID 02/13/22 trazodone 100 mg tablet 100 mg PO QHS Sleep 02/13/22 flash glucose sensor (FreeStyle Gómez 2 Sensor kit) #2 ea 08/14/22 hydroxyzine HCl 50 mg tablet 50 mg PO BID PRN Anxiety 09/04/22 naproxen 500 mg tablet 500 mg PO BID PRN ELBOW PAIN 09/04/22 insulin pump cartridge,automated dose,BT with controller subcutaneous (Omnipod 5 G6 Intro Kit (Gen 5) subcutaneous cartridge with controller) #1 ea 12/19/22 Humalog U-100 Insulin 100 unit/mL subcutaneous solution (insulin lispro) 150 unit (1.5 mL) subcut DAILY #50 mL 02/28/23 glimepiride 4 mg tablet 4 mg PO BID DIABETES #180 tabs 04/14/23 losartan 100 mg tablet 100 mg PO QHS BLOOD PRESSURE 04/14/23 blood-glucose transmitter (Dexcom G6 Transmitter device) #1 ea 06/09/23 blood-glucose sensor (Dexcom G6 Sensor device) #3 ea 06/30/23 insulin pump cart,automated,BT (Omnipod 5 G6 Pods (Gen 5) subcutaneous cartridge) #15 ea 08/08/23 meclizine 25 mg tablet (Dramamine (meclizine)) 25 mg PO BID DIZZINESS 09/18/23 fluticasone propionate 50 mcg/actuation nasal spray,suspension 2 spray intranasal QODAY nasal congestion 10/20/23 hydrochlorothiazide 12.5 mg capsule 12.5 mg PO DAILY htn 10/20/23 montelukast 10 mg tablet 10 mg PO QHS allergies 10/20/23 tizanidine 4 mg tablet 4 mg PO QHS muscle relaxer 10/20/23 amoxicillin 875 mg-potassium clavulanate 125 mg tablet 1 tab PO BID #10 tabs 10/24/23 doxycycline hyclate 100 mg tablet 100 mg PO BID #10 tabs 10/24/23
== END 2023-10-24 13:59 | disposition home or self-care (01) | DRG 629 ==
LOC: ED 15:16 → MS3 17:52
PROVIDERS: Anesthesiology; Physician Assistant; Podiatrist Foot & Ankle Surgery; Admitting Provider Hospitalist; Emergency Provider Emergency Medicine; PCP Internal Medicine; Visit Provider Student in an Organized Health Care Education/Training Program
PROC: 0QBR0ZZ Excision of Left Toe Phalanx, Open Approach (ICD-10-PCS; CPT 29999; principal; 2023-10-22 15:15)
DX: E11.69 Type 2 diabetes mellitus with other specified complication (principal); Z68.42 Body mass index [BMI] 45.0-49.9, adult; M86.172 Other acute osteomyelitis, left ankle and foot; L97.529 Non-pressure chronic ulcer of other part of left foot with unspecified severity; E11.42 Type 2 diabetes mellitus with diabetic polyneuropathy; E11.621 Type 2 diabetes mellitus with foot ulcer; E03.9 Hypothyroidism, unspecified; B95.62 Methicillin resistant Staphylococcus aureus infection as the cause of diseases classified elsewhere; E11.628 Type 2 diabetes mellitus with other skin complications; E11.65 Type 2 diabetes mellitus with hyperglycemia; Z79.4 Long term (current) use of insulin; E66.01 Morbid (severe) obesity due to excess calories; I10 Essential (primary) hypertension; J45.909 Unspecified asthma, uncomplicated; F32.A Depression, unspecified; F12.90 Cannabis use, unspecified, uncomplicated; F17.200 Nicotine dependence, unspecified, uncomplicated; M79.7 Fibromyalgia; E78.5 Hyperlipidemia, unspecified; K21.9 Gastro-esophageal reflux disease without esophagitis; S91.102A Unspecified open wound of left great toe without damage to nail, initial encounter; Z86.39 Personal history of other endocrine, nutritional and metabolic disease; R42 Dizziness and giddiness
CPT/HCPCS: 36415; 73630; 80048; 81025; 82962; 83036; 84443; 84484; 85025; 85027; 85610; 85652; 86140; 87070; 87075; 87102; 87176; 87205; 87206; 88304; 88305; 88311; 93005; 93922; 94668; 97162; 97166; 97802; 99252; 99284; J2020; J7030; J7040; A4216; G0463; J2405

== ENCOUNTER 2023-10-29 12:42 | Outpatient (RCR) | payer MEDICARE, MEDICAID, SELFPAY ==
[2023-10-29 13:14] VITALS: BP 186/98; PULSE 82; RESP 16; TEMP 36.1; BMI 27.4
--- NOTE | 2023-10-29 14:20 | PCM.WC.PN ---
History of Present Illness Date of Service: 10/29/23 Chief Complaint: Left hallux wound History of Wound: Patient is a 50 year old female who presents with chronic nonhealing plantar left hallux ulceration. Patient has had multiple previous infections to this wound. Patient has had both cellulitis and osteomyelitis noted to this wound. She has been hospitalized for this on multiple occasions. She had previously been following up with infectious disease with Dr. Lorenzo for management. 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 She did follow up with Dr. Guillen at the wound healing center prior and apparently discussed potential amputation. Patient states that she has been fed up with having this wound for over a year and a half now and would like to consider amputation after the holidays and would like referred to podiatry for surgery. The patient does have a history of being noncompliant. Today in office she is not utilizing her offloading shoe for her ulcer and she is actually wearing cowboy boots with a very narrow toe space. She was previously set up for HBO therapy but missed those appointments earlier in the year. She does note that she is following up with endocrinology Dr. Man on getting her blood sugars under control. Her most recent A1c was 10.3. She currently has been utilizing silver cell and covering with gauze. She denies any systemic or localized signs of infection at this time. Past medical, family, and social history reviewed and not pertinent to the current visit and all other systems reviewed and negative with exception of those listed above. Subjective Subjective Mr. Minaya is a 52-year-old diabetic female presenting to the wound care center today for follow-up and evaluation of status post Gastroc recession,incision bone cortex with advancement flap closure to the left hallux and left lower extremity. Date of surgery 10/18/2023. Patient is recovering well. She has kept her posterior splint clean dry and intact. She has presented with her cam walking boot today. Is having strict blood sugar control. She denies trauma. Denies constitutional symptoms. No other pedal complaints at this time. She is Objective Data Objective Data Vital Signs: Vital Signs Temp Pulse Resp BP O2 Del Method 97.0 F L 82 16 186/98 H Room Air 10/29/23 13:14 10/29/23 13:14 10/29/23 13:14 10/29/23 13:14 10/29/23 13:14 Oxygen Delivery Method Room Air Weight: 72.575 kg Body Mass Index (BMI) 27.4 Physical Exam Narrative Neurovascular status is unchanged. Advancement flap closure appreciated left hallux. Incision well coapted with suture. Evidence of sanguinous crust throughout sutures. No evidence of surgical wound dehiscence, erythema or sign of infection at this time. Ankle range of motion is within normal limits. No evidence of surgical wound dehiscence to the calf incisions. No pain with calf pression. Debridement Note Debridement Note Post-Debridement Measurements and Additional Note: Post-Debridement Measurements/Treatment - Nurse 1 - General Ulcer Assessment Start: 10/29/23 13:09 Freq: Status: Active Protocol: NANCY Activity Type Activity Date Activity User E-sign Co-sign Detail Recorded Client Recorded Date Recorded By Document 10/29/23 13:14 [employer]W [employer] 10/29/23 13:23 KW 10/29/23 13:14 WC - Today's Visit Information Type of service Initial Visit Arrival Mode Ambulatory Patient Identification Verified (Name & Yes ) Finger Stick Blood Sugar(mg/dl) (if 117 indicated): Blood Sugar Stated by Patient Height and Weight Height 5 ft 4 in Weight 72.575 kg Weight in Pounds 160.0 lbs Body Mass Index (BMI) 27.4 BMI Classification Overweight BSA - Syed 1.78 Vital Signs Temperature (97.8 F-99.1 F) 97.0 F L Temperature Source Temporal Pulse Rate (60-100) 82 Pulse Location Monitor Respiratory Rate (12-18) 16 Respiratory rate source Observation Oxygen Delivery Method Room Air Blood Pressure (90/60-120/80) 186/98 H Blood Pressure Mean (mm Hg) 127 Source Monitor Position Semi-Fowlers Blood Pressure Location Left Arm History Since Last Visit- (Skip if this is Patient's initial visit) Left Footwear Removable Cast Walker/Walking Boot Right Footwear Regular Shoe Pain Scale: 0-10 Numeric Is Patient Pain Free? Yes - Nurse 1 - General Ulcer Measurement Start: 10/29/23 13:09 Freq: Status: Active Protocol: Activity Type Activity Date Activity User E-sign Co-sign Detail Recorded Client Recorded Date Recorded By Document 10/29/23 13:14 [email or web address] 10/29/23 13:23 KW 10/29/23 13:14 Wound Center Nurse 1 #4 LT Hallux Post-Op -Date of Last Picture (Recall this 10/29/23 field) -Photo Taken Yes -Wound Comment(s) post incision- sutures intact Left Calf (cm) 39.7 Left Ankle (cm) 21.5 - Nurse 2 - General Ulcer CM Notes Start: 10/29/23 13:09 Freq: Status: Active Protocol: Activity Type Activity Date Activity User E-sign Co-sign Detail Recorded Client Recorded Date Recorded By Document 10/29/23 13:30 Laptop 10/29/23 13:33 10/29/23 13:30 Wound Center Nurse 2 #4 LT Hallux Post-Op -Correct Patient No -Correct Side, Site, Position No -Correct Procedure No -Procedure Performed No -Wound/Ulcer Outcome Healed- Surgical Closure Pain Scale: 0-10 Numeric Is Patient Pain Free? Yes - Nurse 3 - General Ulcer D/C NN Start: 10/29/23 13:09 Freq: Status: Active Protocol: Activity Type Activity Date Activity User E-sign Co-sign Detail Recorded Client Recorded Date Recorded By Document 10/29/23 13:43 C$ [email or web address] 10/29/23 13:43 10/29/23 13:43 Wound Care Center Nurse 3 #4 LT Hallux Post-Op -Ulcer Cleansing Rinsed/ Irrigated with Saline -Foul Odor after Cleansing No -Primary Dressing Applied NonAdherent Contact Layer -Other Dressing betadine -Primary Dressing Covered/Secured with Dry Gauze & Roll Gauze, Secured with Tape Left -Compression Wrap Matthew Wrap Pain Scale: 0-10 Numeric Is Patient Pain Free? Yes - Visit Discharge Discharge Condition Stable Ambulatory Status Ambulatory Transportation Private Auto Medication Reconcilliation completed & Yes provided to patient/care provider Clinical Summary of Care Provided Yes Assessment/Plan Assessment/Plan (1) Osteomyelitis of great toe of left foot: CODE(S): M86.9 - Osteomyelitis, unspecified PLAN: Patient was examined and evaluated. All findings were discussed with the patient. All questions were answered to the patient's satisfaction. Patient is recovering well from her surgery consisting of gastroc recession, excision of bone cortex with advancement flap closure to the left hallux and left lower extremity. Patient instructed to watch her weightbearing and continue to rest ice and elevate her left lower extremity. She was educated on strict blood sugar control which she was understanding of. The patient's left lower extremity incisions were dressed with Betadine paint, Betadine soaked Adaptic, 4 x 4's and a single layer [place] compression bandage was donned to left lower extremity followed by marie castañeda. Patient was instructed to watch her weightbearing and will follow-up in 1 week. Follow-up at the wound care center with Dr. Velazco in 1 week. (2) Tightness of left heel cord: CODE(S): M67.02 - Short Achilles tendon (acquired), left ankle (3) Acute painful diabetic polyneuropathy: CODE(S): E11.42 - Type 2 diabetes mellitus with diabetic polyneuropathy
== END 2023-10-29 23:59 | disposition home or self-care (01) ==
LOC: WC 12:42
PROVIDERS: PCP Internal Medicine; Referring Provider Podiatrist Foot & Ankle Surgery; Visit Provider Podiatrist Foot & Ankle Surgery
DX: M86.9 Osteomyelitis, unspecified (principal); L97.529 Non-pressure chronic ulcer of other part of left foot with unspecified severity; E11.42 Type 2 diabetes mellitus with diabetic polyneuropathy; M67.02 Short Achilles tendon (acquired), left ankle
CPT/HCPCS: 99214; G0463

== ENCOUNTER 2023-11-19 13:30 | Outpatient (RCR) | payer MEDICARE, MEDICAID, SELFPAY ==
[2023-10-30 00:36] VITALS: BP 186/98; PULSE 82; RESP 16; TEMP 36.1; BMI 27.4
[2023-11-05 13:26] VITALS: BP 166/91; PULSE 88; RESP 18; TEMP 36.3; BMI 27.4
--- NOTE | 2023-11-05 14:25 | PCM.WC.PN ---
History of Present Illness Date of Service: 11/05/23 Chief Complaint: Left hallux wound History of Wound: Patient is a 50 year old female who presents with chronic nonhealing plantar left hallux ulceration. Patient has had multiple previous infections to this wound. Patient has had both cellulitis and osteomyelitis noted to this wound. She has been hospitalized for this on multiple occasions. She had previously been following up with infectious disease with Dr. Lorenzo for management. 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 She did follow up with Dr. Guillen at the wound healing center prior and apparently discussed potential amputation. Patient states that she has been fed up with having this wound for over a year and a half now and would like to consider amputation after the holidays and would like referred to podiatry for surgery. The patient does have a history of being noncompliant. Today in office she is not utilizing her offloading shoe for her ulcer and she is actually wearing cowboy boots with a very narrow toe space. She was previously set up for HBO therapy but missed those appointments earlier in the year. She does note that she is following up with endocrinology Dr. Man on getting her blood sugars under control. Her most recent A1c was 10.3. She currently has been utilizing silver cell and covering with gauze. She denies any systemic or localized signs of infection at this time. Past medical, family, and social history reviewed and not pertinent to the current visit and all other systems reviewed and negative with exception of those listed above. Subjective Subjective Mr. Minaya is a 52-year-old diabetic female presenting to the wound care center today for follow-up and evaluation of status post Gastroc recession,incision bone cortex with advancement flap closure to the left hallux and left lower extremity. Date of surgery 10/18/2023. Patient is recovering well. She has kept her dressing clean dry and intact. She has presented with her cam walking boot today. Is having strict blood sugar control. She denies trauma. Denies constitutional symptoms. No other pedal complaints at this time. Objective Data Objective Data Vital Signs: Vital Signs Temp Pulse Resp BP O2 Del Method 97.3 F L 88 18 166/91 H Room Air 11/05/23 13:26 11/05/23 13:26 11/05/23 13:26 11/05/23 13:26 11/05/23 13:26 Oxygen Delivery Method Room Air Weight: 72.575 kg Body Mass Index (BMI) 27.4 Physical Exam Narrative Neurovascular status is unchanged. Nonpitting edema appreciated bilateral lower extremity. Advancement flap closure appreciated left hallux. Incision well coapted with suture. Evidence of sanguinous crust throughout sutures. No evidence of surgical wound dehiscence, erythema or sign of infection at this time. Ankle range of motion is within normal limits. No evidence of surgical wound dehiscence to the calf incisions. No pain with calf pression. Debridement Note Debridement Note Post-Debridement Measurements and Additional Note: Post-Debridement Measurements/Treatment - Nurse 1 - General Ulcer Assessment Start: 11/05/23 13:26 Freq: Status: Active Protocol: NANCY Activity Type Activity Date Activity User E-sign Co-sign Detail Recorded Client Recorded Date Recorded By Document 11/05/23 13:26 Desktop 11/05/23 13:34 11/05/23 13:26 - Today's Visit Information Type of service Follow-up Visit (Physician/DIRECTOR OF REAL ESTATE ) Arrival Mode Ambulatory Transfer Assistance None Patient Identification Verified (Name & Yes ) Patient Requires Transmission-Based No Precautions Height and Weight Body Mass Index (BMI) 27.4 BMI Classification Overweight Vital Signs Temperature (97.8 F-99.1 F) 97.3 F L Temperature Source Temporal Pulse Rate (60-100) 88 Pulse Location Monitor Respiratory Rate (12-18) 18 Respiratory rate source Observation Oxygen Delivery Method Room Air Blood Pressure (90/60-120/80) 166/91 H Blood Pressure Mean (mm Hg) 116 Source Monitor Position Sitting Blood Pressure Location Right Arm History Since Last Visit- (Skip if this is Patient's initial visit) Have you changed medications since your No last visit? Any new allergies or adverse reactions No Had a fall/change in ADL's that may No increase risk of falls Signs or symptoms of abuse and/or No neglect since last visit Have you been in the hospital since your No last visit? Has dressing in place as prescribed Yes Has compression in place as prescribed Yes Has offloadiing in place as prescribed Yes Experienced any changes in pain level or No management Left Footwear Removable Cast Walker/Walking Boot Right Footwear Regular Shoe Pain Scale: 0-10 Numeric Is Patient Pain Free? Yes - Nurse 1 - General Ulcer Measurement Start: 11/05/23 13:26 Freq: Status: Active Protocol: Activity Type Activity Date Activity User E-sign Co-sign Detail Recorded Client Recorded Date Recorded By Document 11/05/23 13:26 GM Desktop 11/05/23 13:34 GM Edit Result 11/05/23 13:26 GM (1) Desktop 11/05/23 13:35 GM (1) Left Calf (cm) => 36.7 Left Ankle (cm) => 22.2 11/05/23 13:26 Wound Center Nurse 1 #4 LT Hallux Post-Op -Current Size (cm) - Length 0.1 -Current Size (cm) - Width 0.1 -Current Size (cm) - Depth 0.1 -Total Square Cm 0.01 -Exudate Amt None Present -Texture (Sherin-wound Skin Appearance) Assessed -Moisture (Sherin-wound Skin Appearance) Assessed -Color (Sherin-wound Skin Appearance) Assessed -Temperature (Sherin-wound Skin No Abnormality Appearance) (Pt Warm) -Tenderness on Palpation (Sherin-wound No Skin Appearance) -Ulcer Cleansing Soap and Water -Foul Odor after Cleansing No Left Calf (cm) 36.7 Left Ankle (cm) 22.2 WC - Nurse 2 - General Ulcer CM Notes Start: 11/05/23 13:26 Freq: Status: Active Protocol: Activity Type Activity Date Activity User E-sign Co-sign Detail Recorded Client Recorded Date Recorded By Document 11/05/23 13:51 JF Laptop 11/05/23 13:55 11/05/23 13:51 Wound Center Nurse 2 #3 left great toe -Correct Patient No -Correct Side, Site, Position No -Correct Procedure No -Procedure Performed No #4 LT Hallux Post-Op -Correct Patient No -Correct Side, Site, Position No -Correct Procedure No -Procedure Performed No -Wound/Ulcer Outcome Healed- Surgical Closure Pain Scale: 0-10 Numeric Is Patient Pain Free? Yes WC - Nurse 3 - General Ulcer D/C NN Start: 11/05/23 13:26 Freq: Status: Active Protocol: Activity Type Activity Date Activity User E-sign Co-sign Detail Recorded Client Recorded Date Recorded By Document 11/05/23 14:03 KW Desktop 11/05/23 14:04 KW 11/05/23 14:03 Wound Care Center Nurse 3 #4 LT Hallux Post-Op -Primary Dressing Applied NonAdherent Contact Layer -Primary Dressing Covered/Secured with Dry Gauze & Roll Gauze, Secured with Tape Right -Tubular Bandage Single Layer -Size of Tubigrip Used Size E -Size E ($) 1 Left -Tubular Bandage Single Layer -Size of Tubigrip Used Size E -Size E ($) 1 Pain Scale: 0-10 Numeric Is Patient Pain Free? Yes WC - Visit Discharge Discharge Condition Stable Ambulatory Status Ambulatory Transportation Private Auto Medication Reconcilliation completed & No provided to patient/care provider Clinical Summary of Care Provided Yes Assessment/Plan Assessment/Plan (1) Osteomyelitis: CODE(S): M86.9 - Osteomyelitis, unspecified QUALIFIERS: Osteomyelitis type: other chronic Osteomyelitis location: foot Laterality: left Qualified Code(s): M86.672 - Other chronic osteomyelitis, left ankle and foot PLAN: Patient was examined and evaluated. All findings were discussed with the patient. All questions were answered to the patient's satisfaction. Patient is recovering well after surgery. Sutures removed from the medial lateral side of the Without incident. Steri-Strips were donned. Sutures remain intact to the left hallux. Patient shows evidence of nonpitting edema to the bilateral lower extremity and will be donned bilateral Tubigrip's. The incision to left hallux was dressed with Betadine paint, Betadine soaked gauze dry sterile dressing and single-layer Tubigrip. Educated the patient continue strict blood sugar control which she is doing. Patient is grateful for her care. Follow-up at the wound care center with Dr. Velazco in 1 week. 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 (4) Localized edema: CODE(S): R60.0 - Localized edema
[2023-11-12 13:13] VITALS: BP 175/93; PULSE 84; RESP 18; TEMP 36.2; BMI 27.4
--- NOTE | 2023-11-12 13:38 | PN.PCM_ITS ---
History of Present Illness Date of Service: 11/12/23 Chief Complaint: Left hallux wound History of Wound: Patient is a 50 year old female who presents with chronic nonhealing plantar left hallux ulceration. Patient has had multiple previous infections to this wound. Patient has had both cellulitis and osteomyelitis noted to this wound. She has been hospitalized for this on multiple occasions. She had previously been following up with infectious disease with Dr. Lorenzo for management. 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 She did follow up with Dr. Guillen at the wound healing center prior and apparently discussed potential amputation. Patient states that she has been fed up with having this wound for over a year and a half now and would like to consider amputation after the holidays and would like referred to podiatry for surgery. The patient does have a history of being noncompliant. Today in office she is not utilizing her offloading shoe for her ulcer and she is actually wearing cowboy boots with a very narrow toe space. She was previously set up for HBO therapy but missed those appointments earlier in the year. She does note that she is following up with endocrinology Dr. Man on getting her blood sugars under control. Her most recent A1c was 10.3. She currently has been utilizing silver cell and covering with gauze. She denies any systemic or localized signs of infection at this time. Past medical, family, and social history reviewed and not pertinent to the current visit and all other systems reviewed and negative with exception of those listed above. Subjective Subjective Mr. Minaya is a 52-year-old diabetic female presenting to the wound care center today for follow-up and evaluation of status post Gastroc recession,incision bone cortex with advancement flap closure to the left hallux and left lower extremity. Date of surgery 10/18/2023. Patient is recovering well. She has kept her dressing clean dry and intact. She has presented with her surgical shoe today. She admits to having strict blood sugar control. She also admits to smoking half to a full pack of cigarettes per day. Denies trauma. Denies constitutional symptoms. No other pedal complaints at this time. Objective Data Objective Data Vital Signs: Vital Signs Temp Pulse Resp BP O2 Del Method 97.1 F L 84 18 175/93 H Room Air 11/12/23 13:13 11/12/23 13:13 11/12/23 13:13 11/12/23 13:13 11/12/23 13:13 Oxygen Delivery Method Room Air Weight: 72.575 kg Body Mass Index (BMI) 27.4 Physical Exam Narrative Neurovascular status is unchanged. Nonpitting edema appreciated bilateral lower extremity. Advancement flap closure appreciated left hallux. Incision well coapted with suture. Evidence of sanguinous crust throughout sutures. No ev idence of surgical wound dehiscence, erythema or sign of infection at this time. Ankle range of motion is within normal limits. No evidence of surgical wound dehiscence to the calf incisions. No pain with calf pression Debridement Note Debridement Note Post-Debridement Measurements and Additional Note: Post-Debridement Measurements/Treatment - Nurse 1 - General Ulcer Assessment Start: 11/05/23 13:26 Freq: Status: Active Protocol: NANCY Activity Type Activity Date Activity User E-sign Co-sign Detail Recorded Client Recorded Date Recorded By Document 11/05/23 13:26 Desktop 11/05/23 13:34 Document 11/12/23 13:13 Desktop 11/12/23 13:17 11/05/23 11/12/23 13:26 13:13 - Today's Visit Information Type of service Follow-up Visit Follow-up Visit (Physician/INDUSTRIAL MAINTENANCE MANAGER (Physician/INDUSTRIAL MAINTENANCE MANAGER ) ) Arrival Mode Ambulatory Ambulatory Transfer Assistance None None Patient Identification Verified (Name & Yes Yes ) Patient Requires Transmission-Based No No Precautions Safety Precautions NA Height and Weight Body Mass Index (BMI) 27.4 27.4 BMI Classification Overweight Overweight Vital Signs Temperature (97.8 F-99.1 F) 97.3 F L 97.1 F L Temperature Source Temporal Temporal Pulse Rate (60-100) 88 84 Pulse Location Monitor Monitor Respiratory Rate (12-18) 18 18 Respiratory rate source Observation Observation Oxygen Delivery Method Room Air Room Air Blood Pressure (90/60-120/80) 166/91 H 175/93 H Blood Pressure Mean (mm Hg) 116 120 Source Monitor Monitor Position Sitting Sitting Blood Pressure Location Right Arm Left Arm History Since Last Visit- (Skip if this is Patient's initial visit) Have you changed medications since your No No last visit? Any new allergies or adverse reactions No No Had a fall/change in ADL's that may No No increase risk of falls Signs or symptoms of abuse and/or No No neglect since last visit Have you been in the hospital since your No No last visit? Has dressing in place as prescribed Yes Yes Has compression in place as prescribed Yes No Has offloadiing in place as prescribed Yes No Experienced any changes in pain level or No No management Left Footwear Removable Cast Surgical Shoe Walker/Walking with pressure Boot relief insole Right Footwear Regular Shoe Regular Shoe Pain Scale: 0-10 Numeric Is Patient Pain Free? Yes Yes WC - Nurse 1 - General Ulcer Measurement Start: 11/05/23 13:26 Freq: Status: Active Protocol: Activity Type Activity Date Activity User E-sign Co-sign Detail Recorded Client Recorded Date Recorded By Document 11/05/23 13:26 GM Desktop 11/05/23 13:34 GM Edit Result 11/05/23 13:26 GM (1) Desktop 11/05/23 13:35 GM Document 11/12/23 13:13 GM Desktop 11/12/23 13:17 GM (1) Left Calf (cm) => 36.7 Left Ankle (cm) => 22.2 11/05/23 11/12/23 13:26 13:13 Wound Center Nurse 1 #4 LT Hallux Post-Op -Current Size (cm) - Length 0.1 0.1 -Current Size (cm) - Width 0.1 0.1 -Current Size (cm) - Depth 0.1 0.1 -Total Square Cm 0.01 0.01 -Photo Taken No -Tunneling No -Undermining/Tunneling No -Circular Undermining No -Exudate Amt None Present None Present -Texture (Sherin-wound Skin Appearance) Assessed Assessed -Moisture (Sherin-wound Skin Appearance) Assessed Assessed -Color (Sherin-wound Skin Appearance) Assessed Assessed -Temperature (Sherin-wound Skin No Abnormality No Abnormality Appearance) (Pt Warm) (Pt Warm) -Tenderness on Palpation (Sherin-wound No Skin Appearance) -Ulcer Cleansing Soap and Water Rinsed/ Irrigated with Saline -Foul Odor after Cleansing No No Left Calf (cm) 36.7 Left Ankle (cm) 22.2 WC - Nurse 2 - General Ulcer CM Notes Start: 11/05/23 13:26 Freq: Status: Active Protocol: Activity Type Activity Date Activity User E-sign Co-sign Detail Recorded Client Recorded Date Recorded By Document 11/05/23 13:51 Laptop 11/05/23 13:55 Document 11/12/23 13:31 Laptop 11/12/23 13:35 11/05/23 11/12/23 13:51 13:31 Wound Center Nurse 2 #3 left great toe -Correct Patient No -Correct Side, Site, Position No -Correct Procedure No -Procedure Performed No #4 LT Hallux Post-Op -Correct Patient No No -Correct Side, Site, Position No No -Correct Procedure No No -Procedure Performed No No -Post Debridement (cm) - Length 0.1 -Post Debridement (cm) - Width 0.1 -Post Debridement (cm) - Depth 0.1 -Total Square (Post) (cm) 0.01 -Area of Debridement (cm) - Length 0.1 -Area of Debridement (cm) - Width 0.1 -Total Square (Area) (cm) 0.01 -Wound/Ulcer Outcome Healed- Not Healed Surgical Closure -Offloading Yes -Type of Offloading Surgical Shoe -Debridement - Subq, 1st 20sq cm No Pain Scale: 0-10 Numeric Is Patient Pain Free? Yes Yes - Nurse 3 - General Ulcer D/C NN Start: 11/05/23 13:26 Freq: Status: Active Protocol: Activity Type Activity Date Activity User E-sign Co-sign Detail Recorded Client Recorded Date Recorded By Document 11/05/23 14:03 Desktop 11/05/23 14:04 11/05/23 14:03 Wound Care Center Nurse 3 #4 LT Hallux Post-Op -Primary Dressing Applied NonAdherent Contact Layer -Primary Dressing Covered/Secured with Dry Gauze & Roll Gauze, Secured with Tape Right -Tubular Bandage Single Layer -Size of Tubigrip Used Size E -Size E ($) 1 Left -Tubular Bandage Single Layer -Size of Tubigrip Used Size E -Size E ($) 1 Pain Scale: 0-10 Numeric Is Patient Pain Free? Yes - Visit Discharge Discharge Condition Stable Ambulatory Status Ambulatory Transportation Private Auto Medication Reconcilliation completed & No provided to patient/care provider Clinical Summary of Care Provided Yes Assessment/Plan Assessment/Plan (1) Osteomyelitis of great toe of left foot: CODE(S): M86.9 - Osteomyelitis, unspecified PLAN: Patient was examined and evaluated. All findings were discussed with the patient. All questions were answered to the patient's satisfaction. Patient is doing well after surgery. The remaining sutures in the left hallux were removed on incident. The skin edges are well coapted. Additional Steri- Strips were applied to the left hallux and painted with Betadine and Tubigrip. Patient was instructed to leave these clean dry and intact and not removed. Patient will continue to keep the left hallux stump dry and not to get it wet. She will continue use her shower boot to do so. Educated the patient continue strict blood sugar control. Educated the patient on smoking cessation and that smoking a cigarette decreases the blood flow by 30 minutes to her bilateral lower extremity. Patient expressed understanding of this. Follow-up at the wound care center with Dr. Velazco in 1 week. 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
[2023-11-19 13:41] VITALS: RESP 18; TEMP 35.9; BMI 27.4
--- NOTE | 2023-11-19 14:41 | PN.PCM_ITS ---
History of Present Illness Date of Service: 11/19/23 Chief Complaint: Left hallux wound History of Wound: Patient is a 50 year old female who presents with chronic nonhealing plantar left hallux ulceration. Patient has had multiple previous infections to this wound. Patient has had both cellulitis and osteomyelitis noted to this wound. She has been hospitalized for this on multiple occasions. She had previously been following up with infectious disease with Dr. Lorenzo for management. 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 She did follow up with Dr. Guillen at the wound healing center prior and apparently discussed potential amputation. Patient states that she has been fed up with having this wound for over a year and a half now and would like to consider amputation after the holidays and would like referred to podiatry for surgery. The patient does have a history of being noncompliant. Today in office she is not utilizing her offloading shoe for her ulcer and she is actually wearing cowboy boots with a very narrow toe space. She was previously set up for HBO therapy but missed those appointments earlier in the year. She does note that she is following up with endocrinology Dr. Man on getting her blood sugars under control. Her most recent A1c was 10.3. She currently has been utilizing silver cell and covering with gauze. She denies any systemic or localized signs of infection at this time. Past medical, family, and social history reviewed and not pertinent to the current visit and all other systems reviewed and negative with exception of those listed above. Subjective Subjective Mr. Minaya is a 52-year-old diabetic female presenting to the wound care center today for follow-up and evaluation of status post Gastroc recession,incision bone cortex with advancement flap closure to the left hallux and left lower extremity. Date of surgery 10/18/2023. Patient is recovering well. She has kept her dressing clean dry and intact. She has presented with her surgical shoe today. She admits to having strict blood sugar control. She also admits to smoking half to a full pack of cigarettes per day. Denies trauma. Denies constitutional symptoms. No other pedal complaints at this time. Objective Data Objective Data Vital Signs: Vital Signs Temp Pulse Resp BP O2 Del Method 96.7 F L 84 18 175/93 H Room Air 11/19/23 13:41 11/12/23 13:13 11/19/23 13:41 11/12/23 13:13 11/19/23 13:41 Oxygen Delivery Method Room Air Weight: 72.575 kg Body Mass Index (BMI) 27.4 Physical Exam Narrative Neurovascular status is unchanged. Nonpitting edema appreciated bilateral lower extremity. Advancement flap closure appreciated left hallux. Incision well coapted. Evidence of hyperkeratotic skin across the incision. No evidence of surgical wound dehiscence, erythema or sign of infection at this time. Ankle range of motion is within normal limits. No evidence of surgical wound dehiscence to the calf incisions. No pain with calf pressio Debridement Note Debridement Note Post-Debridement Measurements and Additional Note: Post-Debridement Measurements/Treatment - Nurse 1 - General Ulcer Assessment Start: 11/05/23 13:26 Freq: Status: Active Protocol: EVIN.GAIL Activity Type Activity Date Activity User E-sign Co-sign Detail Recorded Client Recorded Date Recorded By Document 11/05/23 13:26 [employer] Desktop 11/05/23 13:34 GM Document 11/12/23 13:13 GM Desktop 11/12/23 13:17 GM Document 11/19/23 13:41 KW Desktop 11/19/23 13:45 KW 11/05/23 11/12/23 11/19/23 13:26 13:13 13:41 - Today's Visit Information Type of service Follow-up Visit Follow-up Visit Follow-up Visit (Physician/MANAGER COMMUNICATION (Physician/MANAGER COMMUNICATION (Physician/MANAGER COMMUNICATION ) ) ) Arrival Mode Ambulatory Ambulatory Ambulatory Transfer Assistance None None Patient Identification Verified (Name & Yes Yes Yes ) Patient Requires Transmission-Based No No Precautions Safety Precautions NA Height and Weight Body Mass Index (BMI) 27.4 27.4 27.4 BMI Classification Overweight Overweight Overweight Vital Signs Temperature (97.8 F-99.1 F) 97.3 F L 97.1 F L 96.7 F L Temperature Source Temporal Temporal Temporal Pulse Rate (60-100) 88 84 Pulse Location Monitor Monitor Monitor Respiratory Rate (12-18) 18 18 18 Respiratory rate source Observation Observation Observation Oxygen Delivery Method Room Air Room Air Room Air Blood Pressure (90/60-120/80) 166/91 H 175/93 H Blood Pressure Mean (mm Hg) 116 120 Source Monitor Monitor Monitor Position Sitting Sitting Semi-Fowlers Blood Pressure Location Right Arm Left Arm Left Arm History Since Last Visit- (Skip if this is Patient's initial visit) Have you changed medications since your No No No last visit? Any new allergies or adverse reactions No No No Had a fall/change in ADL's that may No No No increase risk of falls Signs or symptoms of abuse and/or No No No neglect since last visit Have you been in the hospital since your No No No last visit? Has dressing in place as prescribed Yes Yes Yes Has compression in place as prescribed Yes No N/A Has offloadiing in place as prescribed Yes No N/A Experienced any changes in pain level or No No No management Left Footwear Removable Cast Surgical Shoe Regular Shoe Walker/Walking with pressure Boot relief insole Right Footwear Regular Shoe Regular Shoe Regular Shoe Pain Scale: 0-10 Numeric Is Patient Pain Free? Yes Yes Yes WC - Nurse 1 - General Ulcer Measurement Start: 11/05/23 13:26 Freq: Status: Active Protocol: Activity Type Activity Date Activity User E-sign Co-sign Detail Recorded Client Recorded Date Recorded By Document 11/05/23 13:26 GM Desktop 11/05/23 13:34 GM Edit Result 11/05/23 13:26 GM (1) Desktop 11/05/23 13:35 GM Document 11/12/23 13:13 GM Desktop 11/12/23 13:17 GM Document 11/19/23 13:41 KW Desktop 11/19/23 13:45 KW (1) Left Calf (cm) => 36.7 Left Ankle (cm) => 22.2 11/05/23 11/12/23 11/19/23 13:26 13:13 13:41 Wound Center Nurse 1 #4 LT Hallux Post-Op -Current Size (cm) - Length 0.1 0.1 0.1 -Current Size (cm) - Width 0.1 0.1 0.1 -Current Size (cm) - Depth 0.1 0.1 0.1 -Total Square Cm 0.01 0.01 0.01 -Date of Last Picture (Recall this 11/19/23 field) -Photo Taken No Yes -Tunneling No -Undermining/Tunneling No -Circular Undermining No -Exudate Amt None Present None Present None Present -Texture (Sherin-wound Skin Appearance) Assessed Assessed -Moisture (Sherin-wound Skin Appearance) Assessed Assessed -Color (Sherin-wound Skin Appearance) Assessed Assessed -Temperature (Sherin-wound Skin No Abnormality No Abnormality Appearance) (Pt Warm) (Pt Warm) -Tenderness on Palpation (Sherin-wound No Skin Appearance) -Ulcer Cleansing Soap and Water Rinsed/ Irrigated with Saline -Foul Odor after Cleansing No No Left Calf (cm) 36.7 Left Ankle (cm) 22.2 WC - Nurse 2 - General Ulcer CM Notes Start: 11/05/23 13:26 Freq: Status: Active Protocol: Activity Type Activity Date Activity User E-sign Co-sign Detail Recorded Client Recorded Date Recorded By Document 11/05/23 13:51 Laptop 11/05/23 13:55 Document 11/12/23 13:31 Laptop 11/12/23 13:35 Document 11/19/23 13:53 Laptop 11/19/23 13:56 11/05/23 11/12/23 11/19/23 13:51 13:31 13:53 Wound Center Nurse 2 #4 LT Hallux Post-Op -Correct Patient No No No -Correct Side, Site, Position No No No -Correct Procedure No No No -Procedure Performed No No No -Post Debridement (cm) - Length 0.1 0 -Post Debridement (cm) - Width 0.1 0 -Post Debridement (cm) - Depth 0.1 0 -Total Square (Post) (cm) 0.01 0 -Area of Debridement (cm) - Length 0.1 0 -Area of Debridement (cm) - Width 0.1 0 -Total Square (Area) (cm) 0.01 0 -Wound/Ulcer Outcome Healed- Not Healed Healed- Surgical Epithelialized Closure -Offloading Yes -Type of Offloading Surgical Shoe -Debridement - Subq, 1st 20sq cm No #3 left great toe -Correct Patient No -Correct Side, Site, Position No -Correct Procedure No -Procedure Performed No Pain Scale: 0-10 Numeric Is Patient Pain Free? Yes Yes Yes EVIN - Nurse 3 - General Ulcer D/C NN Start: 11/05/23 13:26 Freq: Status: Active Protocol: Activity Type Activity Date Activity User E-sign Co-sign Detail Recorded Client Recorded Date Recorded By Document 11/05/23 14:03 Desktop 11/05/23 14:04 Document 11/12/23 13:48 GM Desktop 11/12/23 13:49 GM Document 11/19/23 13:56 Laptop 11/19/23 13:59 11/05/23 11/12/23 11/19/23 14:03 13:48 13:56 Wound Care Center Nurse 3 #4 LT Hallux Post-Op -Ulcer Cleansing Not Cleansed -Foul Odor after Cleansing No -Primary Dressing Applied NonAdherent Contact Layer -Primary Dressing Covered/Secured with Dry Gauze & Roll Gauze, Secured with Tape Right -Tubular Bandage Single Layer -Size of Tubigrip Used Size E -Size E ($) 1 Left -Lotion applied to leg before No compression wrap -Tubular Bandage Single Layer Single Layer Single Layer -Size of Tubigrip Used Size E Size D Size E -Size D ($) 1 -Size E ($) 1 1 Pain Scale: 0-10 Numeric Is Patient Pain Free? Yes Yes Yes Teaching: Wound Center Foot Care -Person Taught Patient -Teaching Method Discussion -Response to teaching Verbalize understanding WC - Visit Discharge Discharge Condition Stable Stable Stable Ambulatory Status Ambulatory Ambulatory Transportation Private Auto Private Auto Private Auto Medication Reconcilliation completed & No Yes Yes provided to patient/care provider Clinical Summary of Care Provided Yes Yes Yes Assessment/Plan Assessment/Plan (1) Osteomyelitis of great toe of left foot: CODE(S): M86.9 - Osteomyelitis, unspecified PLAN: Patient was examined and evaluated. All findings were discussed with the patient. All questions were answered to the patient's satisfaction. Patient has recovered well from her surgery. There is no evidence of surgical wound dehiscence or flap compromise. The hyperkeratotic tissue was removed without incident with 15 blade. The patient will be discharged from the wound care center and can follow-up in private office with Dr. Velazco. She was educated to continue strict blood sugar control as well as smoking cessation upon which the patient was understanding. The patient will follow-up with Dr. Velazco in private office and will follow-up with the wound care center when needed. She left the office pleased with the visit. (2) Localized edema: CODE(S): R60.0 - Localized edema (3) Tightness of left heel cord: CODE(S): M67.02 - Short Achilles tendon (acquired), left ankle (4) Type 2 diabetes mellitus with diabetic polyneuropathy: CODE(S): E11.42 - Type 2 diabetes mellitus with diabetic polyneuropathy QUALIFIERS: Diabetes mellitus shelter insulin use: unspecified medical terminologist insulin use status Qualified Code(s): E11.42 - Type 2 diabetes mellitus with diabetic polyneuropathy
== END 2023-11-20 09:05 | disposition home or self-care (01) ==
LOC: WC 13:30
PROVIDERS: PCP Internal Medicine; Referring Provider Podiatrist Foot & Ankle Surgery; Visit Provider Podiatrist Foot & Ankle Surgery
DX: E11.69 Type 2 diabetes mellitus with other specified complication (principal); M86.672 Other chronic osteomyelitis, left ankle and foot; E11.42 Type 2 diabetes mellitus with diabetic polyneuropathy; F17.210 Nicotine dependence, cigarettes, uncomplicated; M67.02 Short Achilles tendon (acquired), left ankle; R60.0 Localized edema; Z91.199 Patient's noncompliance with other medical treatment and regimen due to unspecified reason
CPT/HCPCS: 99213; G0463

== ENCOUNTER 2024-06-27 17:23 | Emergency (ER) | payer MEDICARE, MEDICAID, SELFPAY ==
[2024-06-27 17:23] VITALS: BP 164/73; PULSE 86; RESP 18; TEMP 36.5; O2SAT 97; BMI 44.7
--- NOTE | 2024-06-27 17:38 | EDS_ITS ---
HPI History of Present Illness Chief Complaint: Lower Extremity Injury Narrative Narrative: 53-year-old female past medical history of diabetes presents with right knee pain that she has had since evening, 3 to 4 days ago. She denies any recent fall or trauma but did state that her friend's dog hit her in the right knee and bent it backwards while she was standing remotely. No fevers or chills. Is worse with standing and movement. Right below the knee. She has a pain that is relieved with Tylenol, stating that it cuts the pain in half. No discoloration of the skin around the area. [facility] Medical History Acute painful diabetic polyneuropathy Tightness of left heel cord Sleep apnea Osteomyelitis of great toe of left foot Dialysis patient Hypertension History of diabetes mellitus Neuropathy Amputated toe of right foot History of diabetes mellitus Abdominal wall cellulitis Abdominal wall abscess Essential hypertension Obesity Anxiety Depression Hypothyroidism Chronic pain Diabetes Smoker Diabetic foot infection Presence of permanent central venous catheter Vascular catheter fitting or adjustment SEUN (acute kidney injury) Osteomyelitis Diabetic foot ulcer Skin ulcer of left great toe with fat layer exposed Osteomyelitis of toe of right foot Osteomyelitis of second toe of right foot Meniere disease Chronic ulcer of right foot with fat 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 Obesity (BMI 30-39.9) Vertigo Hyperlipidemia Fibromyalgia Home Medications ?Medication ?Instructions ?Recorded ?Last Taken ?Type albuterol sulfate 90 mcg/actuation 2 puff inhalation Q4H PRN 08/30/19 10/19/23 History aerosol inhaler shortness of breath or wheezing atorvastatin 80 mg tablet 80 mg PO QHS cholesterol 08/30/19 10/19/23 History duloxetine 60 mg capsule,delayed 60 mg PO QHS DEPRESSION 03/21/20 10/19/23 History release multivitamin with minerals 1 tab PO DAILY SUPPLEMENT 03/21/20 10/20/23 History ergocalciferol (vitamin D2) 1,250 50,000 unit PO MOTH supplement 10/17/20 10/20/23 History mcg (50,000 unit) capsule pantoprazole 20 mg tablet,delayed 20 mg PO BID ACID REFLUX 11/11/20 10/20/23 History release gabapentin 600 mg tablet 600 mg PO BID NERVE PAIN 11/14/21 10/20/23 History trazodone 100 mg tablet 100 mg PO QHS Sleep 02/13/22 10/19/23 History hydroxyzine HCl 50 mg tablet 50 mg PO BID PRN Anxiety 09/04/22 10/17/23 History naproxen 500 mg tablet 500 mg PO BID PRN ELBOW PAIN 09/04/22 10/20/23 History insulin pump cartridge,automated #1 ea 12/19/22 Unknown Rx dose,BT with controller subcutaneous (Omnipod 5 G6 Intro Kit (Gen 5) subcutaneous cartridge with controller) losartan 100 mg tablet 100 mg PO QHS BLOOD PRESSURE 04/14/23 10/19/23 History meclizine 25 mg tablet (Dramamine 25 mg PO BID DIZZINESS 09/18/23 10/20/23 History (meclizine)) fluticasone propionate 50 2 spray intranasal QODAY nasal 10/20/23 10/19/23 History mcg/actuation nasal congestion spray,suspension Humalog U-100 Insulin 100 unit/mL 150 unit (1.5 mL) subcut DAILY 03/09/24 Unknown Rx subcutaneous solution (insulin #140 mL lispro) blood-glucose sensor (Dexcom G6 #9 ea 03/09/24 Unknown Rx Sensor device) blood-glucose transmitter (Dexcom #1 ea 03/09/24 Unknown Rx G6 Transmitter device) glimepiride 4 mg tablet 4 mg PO BID DIABETES #180 tabs 03/09/24 Unknown Rx hydrochlorothiazide 12.5 mg capsule 12.5 mg PO DAILY htn 04/15/24 Unknown History levothyroxine 112 mcg tablet 112 mcg PO DAILY #90 tabs 04/15/24 Unknown Rx tizanidine 4 mg tablet 4 mg PO QHS PRN muscle relaxer 04/15/24 Unknown History insulin pump cart,automated,BT #15 ea 06/21/24 Unknown Rx (Omnipod 5 G6 Pods (Gen 5) subcutaneous cartridge) Allergy/AdvReac Type Severity Reaction Status Date / Time clindamycin Allergy Hives Verified 06/27/24 17:29 erythromycin base (From Allergy Hives Verified 06/27/24 17:29 E-Mycin) vancomycin Allergy Hives Verified 06/27/24 17:29 Gadolinium-MRI Contrast AdvReac Other Verified 06/27/24 17:29 Medium (CONTRAST) Iodinated Contrast Media AdvReac Kidney Verified 06/27/24 17:29 (CONTRASTS) failure Surgical History Status post debridement History of amputation of great toe History of appendectomy Social History Smoking Status: Current every day smoker tobacco type: cigarettes alcohol intake: former substance use type: marijuana ROS ROS ED ROS Narrative Constitutional: No fever, no chills. HEENT: No sore throat. No neck pain. No loss of vision. No rhinorrhea. Cardiovascular: No chest pain. No palpitations. No pedal edema. Respiratory: No cough, no shortness of breath. Abdominal: No abdominal pain. No nausea. No vomiting. Genitourinary: No dysuria. No hematuria. Musculoskeletal: No myalgias. Positive arthralgias worse with standing and walking. Neurologic: No headaches. No dizziness. No lightheadedness. Skin: No rash. No change in color. Psychiatric: No depression. No anxiety. EXAM Physical Exam Narrative Exam Narrative: Afebrile. Vital signs noted. Nontoxic-appearing. HEENT: Normocephalic. Atraumatic. PERRL, EOMI. Neck soft and supple. No point tenderness or step off. Cardiovascular: Regular rate and rhythm. No murmurs, rubs, or gallops appreciated. Respiratory: No tachypnea. Lungs clear to auscultation bilaterally. Gastrointestinal: Abdomen soft, nontender, with normoactive bowel sounds. No rebound or guarding. Neurological: Awake. Alert. Nonfocal, nonlateralizing. Skin: No rash. Normal color. No pallor. Musculoskeletal: No pedal edema. Positive tenderness to palpation in prepatellar bursa area, over the proximal tibia. Range of motion is intact including flexion and extension, but limited secondary to pain. No erythema, no crepitance. Neurovascular intact distally with palpable dorsalis pedis pulse, right foot. Const Vital Signs: 06/27/24 17:23 Temperature 97.7 F L Temperature Source Oral Pulse Rate 86 Respiratory Rate 18 Blood Pressure 164/73 H Blood Pressure Mean 103 Pulse Ox 97 Oxygen Delivery Method Room Air MDM MDM MDM Narrative Medical decision making narrative: Differential diagnosis includes but not limited to prepatellar bursitis versus knee sprain versus strain versus tibial plateau fracture. I have low clinical suspicion for fracture as history and physical does not support this. X-rays were obtained of the right knee and 4 views to rule out fracture and to see if there is an effusion. Right knee x-rays interpreted by myself independently in 4 views shows no evidence of acute fracture or effusion. I reviewed the radiology report which confirms my independent interpretation. At this point in time, she will be placed in an Matthew wrap for support and follow-up with her primary care provider. She was also referred to orthopedics. She states she has crutches at home that she can use. She will continue [id number] medications which I feel are adequate for pain control. Return instructions to the emergency department were reviewed. Disposition is discharged home in stable condition. History & Record Review Discussion w/independent historian: Patient Radiography Diagnostic Testing: Clinical Impression(s) from Imaging Studies Knee X-Ray 06/27/24 17:45 IMPRESSION: Negative. Electronically Signed: Roberto Naidu DO at 18:39 EDT Reading Location ID and State: [facility] / [place] Tel [phone], Service support , Discharge Plan Triage Chief Complaint: Lower Extremity Injury ED Provider: Moe Jaramillo Dx/Rx/DC Orders Clinical Impression: Acute knee pain, Patellar bursitis of right knee Instructions: ED Knee Pain of Uncertain Cause Prescriptions: No Action gabapentin 600 mg tablet 600 mg PO BID meclizine [Dramamine (meclizine)] 25 mg tablet 25 mg PO BID (DME) Omnipod 5 G6 Intro Kit (Gen 5) Cartridge See Rx Instructions .Route Qty: 1 0RF Rx Instructions: As directed levothyroxine 112 mcg tablet 112 mcg PO DAILY Qty: 90 0RF atorvastatin 80 MG tablet 80 mg PO QHS albuterol sulfate 1 INHALER inhaler 2 puff inhalation Q4H PRN (Reason: shortness of breath or wheezing) multivitamin with minerals 1 EACH tablet 1 tab PO DAILY duloxetine 60 MG capsule,delayed release(DR/EC) 60 mg PO QHS ergocalciferol (vitamin D2) 50,000 UNIT capsule 50,000 unit PO MOTH pantoprazole 20 MG tablet 20 mg PO BID trazodone 100 mg tablet 100 mg PO QHS hydroxyzine HCl 50 mg tablet 50 mg PO BID PRN (Reason: Anxiety) naproxen 500 mg tablet 500 mg PO BID PRN (Reason: ELBOW PAIN) losartan 100 mg tablet 100 mg PO QHS fluticasone propionate 50 mcg/actuation spray,suspension 2 spray INTRANASAL QODAY Patient Comments: instill 2 sprays into each nostril once daily Rinse mouth after use hydrochlorothiazide 12.5 mg capsule 12.5 mg PO DAILY Patient Comments: take 1 capsule by mouth once daily tizanidine 4 mg tablet 4 mg PO QHS PRN (Reason: muscle relaxer) (DME) Dexcom G6 Sensor Device See Rx Instructions .Route Qty: 9 1RF Rx Instructions: 1 sensor q 10 days (DME) Dexcom G6 Transmitter Device See Rx Instructions .Route Qty: 1 1RF Rx Instructions: 1 transmitter q 90 days glimepiride 4 mg tablet 4 mg PO BID Qty: 180 1RF insulin lispro [Humalog U-100 Insulin] 100 unit/mL solution 150 unit subcut DAILY Qty: 140 1RF Patient Comments: PT STATES THEY RAN OUT OF THEIR PODS RECENTLY AND HAVEN'T HAD THE CHANCE 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 Follow-up with your primary care provider and/or orthopedics in 1 week if not improving. Continue ice and elevation of your right knee when possible. Use crutches as needed. Print Language: Kiswahili Disposition Disposition: Home, Self Care
--- NOTE | 2024-06-27 17:45 | RAD_ITS ---
INDICATION: pain EXAMINATION/TECHNIQUE: X-RAY - RIGHT XR Knee Complete 4 Views COMPARISON: FINDINGS: SOFT TISSUES: No soft tissue swelling or gas. No radiopaque foreign body. BONES/JOINTS: No acute fracture or subluxation.. Normal alignment. Preservation of the joint space.. No sclerotic or destructive changes observed. RAD/Knee 4 or More Views IMPRESSION: Negative. Electronically Signed: Roberto Naidu DO at 18:39 EDT ,
== END 2024-06-27 19:12 | disposition home or self-care (01) ==
PROVIDERS: Emergency Provider Emergency Medicine; PCP Internal Medicine; Visit Provider Emergency Medicine
DX: M25.561 Pain in right knee (principal); Z79.4 Long term (current) use of insulin; E11.9 Type 2 diabetes mellitus without complications; E78.5 Hyperlipidemia, unspecified; F17.210 Nicotine dependence, cigarettes, uncomplicated; M70.51 Other bursitis of knee, right knee; I10 Essential (primary) hypertension; W54.1XXA Struck by dog, initial encounter; F32.A Depression, unspecified; Z79.899 Other long term (current) drug therapy; Z79.84 Long term (current) use of oral hypoglycemic drugs; Z79.890 Hormone replacement therapy; E03.9 Hypothyroidism, unspecified; Z90.49 Acquired absence of other specified parts of digestive tract
CPT/HCPCS: 73564; 99282

== ENCOUNTER 2024-07-02 09:00 | Outpatient (RCR) | payer MEDICARE, MEDICAID, SELFPAY ==
--- NOTE | 2024-03-09 08:51 | HP.PTEVAL ---
Patient's Visit Information Visit Information Visit Information: KATHRYN ESQUIVEL is a 53 year old F referred to Physical Therapy by Dr. Asher Velazco DPM with a diagnosis of Balance Issues. Date of Evaluation: 03/09/24 Physical Therapist: Ritika Vaugnh DPT Visit Plan Frequency: 2x /Week Duration: 4 Weeks Plan: Aquatics- focus on LE and core strength/stabilization and proprioception HEP Given IE: hip abd, extn and SLS Subjective Subjective: Patient reports that she has balance issues and leg and sciatic issues- 3 years- but its continues to get worse. The balance issue comes from the fact that she can't feel her toes and she is missing 2.5 toes and the sciatica she is unsure about. She is doing stretches laying on her bed and pulling it to her but it does not really help. The pain is located in her left buttock and radiates into the low back and her feet hurt all the time. Her leg strength is horrible- she can't squat down and she has to bend over. She has disc problems in her spine but she does not see a doctor for that. She is missing two toes on the right and half of her big toe on the left. She had an infection- and she waited to long- the big toe on the right was removed in 2020 the 2nd toe was removed in 2021 and the left one was removed about 3 months ago- not the whole toe just the top phalanx. The legs feel like they want to go the other direction and she also has Meniere's Disease. Her last fall was about 4 months ago and she fell on her right knee. Her numbness comes to right about her ankle. The feet do hurt- the top of the feet- agg: not taking the Gabapentin. Eases: medication, Tylenol, movement. She use to be more active but not at this time- she wants to be more active. She feels that she needs more leg strength- She does intermittent things but has to sit back down due to her back pain more comfortable to sit on the couch. Work: on disability. No open wounds currently. Sleep: not disturbed- she takes medication that helps her sleep- side/back sleeper. More pain in her back throughout the day. She has had recent x-rays on her back which showed that L3-4-5 have bulging discs- she has not done PT for her back. PMhx/Meds: No changes since endo in november 2023 Objective Objective: Posture: Forward head, rounded shoulders- can correct but does not maintain Gait: antalgic- decreased stance bilateral- wide SAMANTHA- decreased michael- takes increased time to get started once standing HR/TR: decreased by 50% SLS: weight shit unsafe to SLS- left >right Sensation: diminished bilateral gross touch bilateral feet below the malleolus ROM: WFL bilateral LE Strength: Core: poor, Hip: 4-/5 throughout, Knee: 4+/5, Ankle: 4/5 throughout Flex: HS: severe, Gastroc: moderate Balance/Special Test Scores Functional Gait Assessment Score: 14 % Disability: 53.3400 CATSIB Score (Max score 120 seconds): 80 Lower Extremity Functional Score: 20 Goals Goal 1:: Patient will be I with HEP and progression Goal Time Frame: 4-6 Weeks Goal 2:: Patient will SLS for 10 sec bilateral without LOB Goal Time Frame: 4-6 Weeks Goal 3:: Patient will ambulate >150 feet with a normalized gait pattern Goal Time Frame: 4-6 Weeks Goal 4:: Patient will report 80% improvement Goal Time Frame: 4-6 Weeks Rehabilitation Potential Physical Therapy Diagnosis: Patient presents with hypomobility- she has decreased LE and core strength/stabilization, proprioception, flex and muscular endurance leading to abnormal gait and increased difficulty with ADL's. Rehabilitation Potential: Fair Anticipated Interventions Patient/Client Instruction: Educate patient on: Benefits of Fitness Program Therapeutic Exercise to Include: Strength training, Endurance training, Balance training, Coordination, Agility training, Body mechanics, Postural training, Flexibilty training, Gait and locomotor training, Neuromotor development, In an aquatic setting, Dynamic Lumbar Stabilization and Scapular Strength/Stabilization For the Purpose of:: To improve muscle performance and motor function Text: Thank you for the opportunity to evaluate your patient. For Medicare and Medicare HMO plans, please review the plan of care and approve it. It will need to be FAXED BACK to us at [phone] for Medicare purposes. For Medicare only, by signing this I certify the plan of care. Please let me know if there are questions or concerns regarding this plan of care. Physician Signature: Date:
--- NOTE | 2024-04-22 11:56 | HP.PTREVAL ---
Re-Evaluation Intro: Dr. Asher Velazco, DPVincent, It has been my pleasure to treat KATHRYN ESQUIVEL over the last 8 visits for Balance Issues. Please see the progress note below for an update on the physical therapy plan of care! Subjective Subjective: Patient reports that she is making progress- she feels that balance is getting easier- she was unaware that her ankles are more of her issue- she feels that she is learning things that she can apply. Pain level today is a 9/10- the rainy weather Objective Objective/Function: Posture: Forward head, rounded shoulders- can correct but does not maintain Gait: no deviation noted HR/TR: WNL with UE A SLS: 2 sec with SBA for safety Sensation: diminished bilateral gross touch bilateral feet below the malleolus ROM: WFL bilateral LE Strength: Core: fair minus, Hip: 4-/5 throughout, Knee: 4+/5, Ankle: 4+/5 throughout Flex: HS: severe, Gastroc: moderate Plan Plan Plan: Continue 2x a week for 4 weeks-Aquatics- focus on LE and core strength/stabilization and proprioception Balance/Gait/Functional tests Balance/Special Test Scores Functional Gait Assessment Score: 14 % Disability: 53.3400 CATSIB Score (Max score 120 seconds): 80 Lower Extremity Functional Score: 28 Goals Goals Goal 1:: Patient will be I with HEP and progression Goal Time Frame: 4-6 Weeks Goal Progress: Progressing Goal 2:: Patient will SLS for 10 sec bilateral without LOB Goal Time Frame: 4-6 Weeks Goal Progress: Progressing Goal 3:: Patient will ambulate >150 feet with a normalized gait pattern Goal Time Frame: 4-6 Weeks Goal Progress: Progressing Goal 4:: Patient will report 80% improvement Goal Time Frame: 4-6 Weeks Goal Progress: Progressing Anticipated Interventions Anticipated Interventions Patient/Client Instruction: Educate patient on: Benefits of Fitness Program Therapeutic Exercise to Include: Strength training, Endurance training, Balance training, Coordination, Agility training, Body mechanics, Postural training, Flexibilty training, Gait and locomotor training, Neuromotor development, In an aquatic setting, Dynamic Lumbar Stabilization and Scapular Strength/Stabilization For the Purpose of:: To improve muscle performance and motor function Re-Evaluation Ending Re-evaluation ending: Please do not hesitate to contact me at [phone] by phone or if you have questions or concerns regarding this new plan of care! Sincerely, FRANCIS IrwinT
--- NOTE | 2024-06-01 09:47 | HP.PTREVAL ---
Re-Evaluation Intro: Dr. Asher Velazco, DAMION, It has been my pleasure to treat KATHRYN ESQUIVEL over the last 16 visits for Balance Issues. Please see the progress note below for an update on the physical therapy plan of care! Subjective Subjective: Pt. reports having 5/10 pain today in her low back and down her L leg. Pt. reports balance issues are doing better. Pt. does Objective Objective/Function: MMT: R knee: ext 25.7#, flexion 18.9#; hip: flexion 19.1# L knee: ext 15.7#, flexion 11.8#; hip: flexion 11.2# Core strength: poor. SLS: L 6sec, R 11sec. GAIT: Pt did okay with gait without AD., but was walking with her dog. She had a few imbalance situations, but I believe this is more due to her back then her LLE. TU.3sec without AD. Plan Plan Plan: Pt. to continue in aquatic setting x2 for 4 weeks. Work on BLE strengthening, core strengthening. Add in dynamic SLS balance on both LE with focus on progressing to I program. Balance/Gait/Functional tests Balance/Special Test Scores Functional Gait Assessment Score: 14 % Disability: 53.3400 CATSIB Score (Max score 120 seconds): 80 Lower Extremity Functional Score: 28 Goals Goals Goal 1:: Patient will be I with HEP and progression Goal Time Frame: 4-6 Weeks Goal Progress: Progressing Goal 2:: Patient will SLS for 10 sec bilateral without LOB Goal Time Frame: 4-6 Weeks Goal Progress: Progressing Goal 3:: Patient will ambulate >150 feet with a normalized gait pattern Goal Time Frame: 4-6 Weeks Goal Progress: Progressing Goal 4:: Patient will report 80% improvement Goal Time Frame: 4-6 Weeks Goal Progress: Progressing Goal 5:: LTG: Pt. to have symmetrical BLE strength. Goal Time Frame: 4-6 Weeks Goal Progress: Progressing Goal 6:: LTG: pt. to complete TUG with less than 10sec indicating proper functional stability. Goal Time Frame: 4-6 Weeks Goal Progress: Progressing Anticipated Interventions Anticipated Interventions Patient/Client Instruction: Educate patient on: Benefits of Fitness Program Therapeutic Exercise to Include: Strength training, Endurance training, Balance training, Coordination, Agility training, Body mechanics, Postural training, Flexibilty training, Gait and locomotor training, Neuromotor development, In an aquatic setting, Dynamic Lumbar Stabilization and Scapular Strength/Stabilization For the Purpose of:: To improve muscle performance and motor function Re-Evaluation Ending Re-evaluation ending: Please do not hesitate to contact me at [phone] by phone or if you have questions or concerns regarding this new plan of care! Sincerely, FRANCIS SavageT
--- NOTE | 2024-07-02 09:26 | HP.PTDCSUM ---
Discharge Summary D/C summary: It has been my pleasure to treat KATHRYN ESQUIVEL referred by Dr. Asher Velazco DPM, with the diagnosis of Balance Issues for a total of 23 visit(s). Discharge Date: 07/02/24 Please see the following information for a summary of their discharge status. Subjective Subjective: Pt. is here today for her recheck. Pt. reports that her knee is bothering her for some reason. Her R knee has been checked out and is a strain. Pt. reports that her balance is doing better. Pt. to reports to physician in 6 weeks. Pt. is more concerned with her water retention and knee R knee at this point in time. He is checking back in with her PCP next week. Pain LBP: Pain Intensity (Out of 10): 6 L hip/thigh: Pain Intensity (Out of 10): 6 R knee: Pain Intensity (Out of 10): 2 Overall Improvement % Improvement: 80 Objective Objective/Function: Pt. reports being HEP with aquatic HEP at this point in time. She plans to start doing this at local [facility]. Pt. also reports starting PT at alternate facility for her sciatic pain. SLS 21sec on LLE, SLS 4 sec on R due to R knee pain. TUsec without AD. She was limited with her R knee pain. MMT: LLE: knee: ext 37.8#, flexion 23.9#. RLE hard to test due to R knee pain. Overall she is doing well. I talked to her about continuing her aquatic exercises. I did suggest that she follow up with physician about her R knee to check her out. She has been seen in PT for 23 visits and will be DC from PT to I HEP at this point in time. Goals Goal 1:: Patient will be I with HEP and progression Goal Progress: Goal Met Goal 2:: Patient will SLS for 10 sec bilateral without LOB Goal Progress: Progressing Goal 3:: Patient will ambulate >150 feet with a normalized gait pattern Goal Progress: Progressing Goal 4:: Patient will report 80% improvement Goal Progress: Progressing Goal 5:: LTG: Pt. to have symmetrical BLE strength. Goal Progress: Progressing Goal 6:: LTG: pt. to complete TUG with less than 10sec indicating proper functional stability. Goal Progress: Progressing Plan Plan: DC to I aquatic program. D/C Information d/c sentence: If there are questions or concerns regarding this patient's physical therapy, please feel free to call me at [phone]. Thank you for the referral of this patient. Sincerely, Ridge Colin, DPT Balance/Gait/Functional tests Balance/Special Test Scores Functional Gait Assessment Score: 14 % Disability: 53.3400 CATSIB Score (Max score 120 seconds): 80 Lower Extremity Functional Score: 28 Improvement % Improvement: 80
== END 2024-07-02 19:00 | disposition home or self-care (01) ==
LOC: PT 09:00
PROVIDERS: PCP Internal Medicine; Referring Provider Podiatrist Foot & Ankle Surgery; Visit Provider Podiatrist Foot & Ankle Surgery
DX: E11.42 Type 2 diabetes mellitus with diabetic polyneuropathy (principal)
CPT/HCPCS: 97113; 97162; 97530

== ENCOUNTER → 2024-07-26 | Outpatient (CLI) | payer MEDICARE, SELFPAY ==
--- NOTE | 2024-07-26 10:45 | MRI_ITS ---
STUDY: MRI BRAIN WITH AND WITHOUT CONTRAST (ATTENTION INTERNAL AUDITORY CANALS - I.A.C.''s) REASON FOR EXAM: Female, 53 years old. LT HEARING LOSS TECHNIQUE: Standardized multiplanar fat and water weighted pulse sequences were obtained. IV 23ml Clariscan was administered for the contrast portion of the examination. COMPARISON: None. FINDINGS: Normal bilateral temporal bones. Normal bilateral internal auditory canals. There is no demonstrated intracanalicular or cisternal vestibular schwannoma ( acoustic neuroma ). There is no enhancement of the bilateral VIIth or VIIIth cranial nerves. Normal bilateral cochlea, vestibules and semicircular canals. Normal size of the ventricles and extra-axial spaces for the patient''s age. Normal white matter tracts of the supratentorial brain. Normal bilateral basal ganglia. Normal thalami. Normal flow voids within the major intracranial circulation suggesting patency by spin echo criteria. Normal venous enhancement. There is no enhancing intra-axial or extra-axial abnormality. There is no extra-axial fluid accumulation. Normal sella turcica, pituitary gland, infundibular stalk, optic chiasm and hypothalamus. Normal tectal plate and pineal gland. Normal midbrain, holli and medulla. Normal cerebellum. Normal basal cisterns. No demonstrated orbital abnormality, within the constraints of a routine brain study. Normal visualized paranasal sinuses. Normal calvarium and skull base. Normal visualized soft tissue structures. Normal visualized upper cervical spine. MRI/Brain W/WO Contrast IMPRESSION: 1. Normal unenhanced and enhanced MRI of the bilateral internal auditory canals (I.A.C''s). 2. No significant interval change when compared to 11/13/2021. Electronically Signed: Moe Godinez MD at 9:40 EDT ,
[2024-07-26 10:50] LABS: CREATININE FINGERSTICK < 1.0 mg/dL (0.55-1.02); EGFR FINGERSTICK > 60.0000 mL/min (>60)
== END | disposition home or self-care (01) ==
LOC: MRI 10:02
PROVIDERS: PCP Internal Medicine; Referring Provider Otolaryngology Otolaryngology/Facial Plastic Surgery; Visit Provider Otolaryngology Otolaryngology/Facial Plastic Surgery
DX: H90.41 Sensorineural hearing loss, unilateral, right ear, with unrestricted hearing on the contralateral side (principal)
CPT/HCPCS: 70553; A9575

== ENCOUNTER 2024-08-06 19:26 | Emergency (ER) | payer MEDICARE, MEDICAID, SELFPAY ==
[2024-08-06] VITALS (11 sets, daily range): BP systolic 119–208; BP diastolic 57–109; PULSE 67–88; RESP 16–20; TEMP 36.6–36.9; O2SAT 94–98; BMI 46.9
[2024-08-06 19:58] LABS: Bedside Glucose 229 mg/dL (74-106)
[2024-08-06] MEDS: Labetalol (Prefilled) 20 MG/4 ML Vial IV (20:03)
[2024-08-06 20:13] LABS: Absolute Lymphocyte Count 2.75 X10^3/uL (0.83-4.51); Absolute Neutrophil Count 10.7 X10^3/uL (2.0-7.7); Basophil# 0.06 X10^3/uL; Basophil% 0.4 % (0-1); Eosinophil# 0.02 X10^3/uL; Eosinophils% 0.1 % (0-5); Hematocrit 49.5 % (37-47); Hemoglobin 16.4 g/dL (12.0-15.0); Lymphocyte # 2.75 X10^3/ul (0.83-4.51); Lymphocyte % 18.7 % (19-41); Mean Corp Hgb Conc 33.1 g/dL (32-36); Mean Corpuscular Hgb 30.1 pg (27.0-32.0); Mean Platelet Vol. 8.9 fl (6.2-12.0); Monocyte# 1.09 X10^3/uL; Monocyte% 7.4 % (0-10); NRBC Flagged by Analyzer 0 % (0-5); Neutrophil # 10.66 X10^3/uL (2.7-7.7); Neutrophil % 72.7 % (47-70); Platelet Count 279 K/mm3 (150-450); RBC Distribution Width CV 14.3 % (11.6-14.6); RBC Distribution Width SD 48.1 fl (35.1-43.9); Red Blood Count 5.44 M/mm3 (4.2-5.4); White Blood Count 14.7 K/mm3 (4.4-11.0)
[2024-08-06 20:23] LABS: Partial Thromboplast Time 24.5 Seconds (24.1-36.2)
[2024-08-06 20:30] LABS: Anion Gap 5 (5-15); BUN 27 mg/dL (7-18); BUN/Creat Ratio 26.7 RATIO (10-20); Calcium,Total 9.3 mg/dL (8.5-10.1); Chloride 107 mmol/L (98-107); Creatinine, Serum 1.01 mg/dL (0.55-1.02); EST Glomerular Filtration Rate 61 mL/min (>60); Est Glom Filt Rate - Afr Amer 74 mL/min (>60); Estimated Creatinine Clearance 87.84 ml/min; Glucose 236 mg/dL (74-106); Potassium 3.9 mmol/L (3.5-5.1); Sodium Level 139 mmol/L (136-145); Troponin-I HS 14 pg/mL (3.0-54.0)
[2024-08-06] MEDS: Nicardipine HCl-0.9% Sod Chlor 20 MG/200 ML IV.SOLN 50 MG CONT INF (20:31)
[2024-08-06] MEDS: Morphine 4 MG/ML Syringe IV (20:51)
[2024-08-06] MEDS: Ondansetron 4 MG/2 ML Vial IV (20:51)
== END 2024-08-06 20:59 | disposition other institution (70) ==
PROVIDERS: Emergency Provider Emergency Medicine; PCP Internal Medicine; Visit Provider Emergency Medicine
DX: I62.9 Nontraumatic intracranial hemorrhage, unspecified (principal); E11.42 Type 2 diabetes mellitus with diabetic polyneuropathy; F41.9 Anxiety disorder, unspecified; G93.9 Disorder of brain, unspecified; E78.5 Hyperlipidemia, unspecified; I10 Essential (primary) hypertension; R47.81 Slurred speech; F17.210 Nicotine dependence, cigarettes, uncomplicated; Z99.2 Dependence on renal dialysis; E03.9 Hypothyroidism, unspecified; G47.33 Obstructive sleep apnea (adult) (pediatric); F32.A Depression, unspecified
CPT/HCPCS: 70450; 80048; 82962; 84484; 85025; 85610; 85730; 93005; 96374; 96375; 99285; A4216; J2405

== ENCOUNTER 2024-09-01 15:08 | Emergency (ER) | payer MEDICARE, MEDICAID, SELFPAY ==
[2024-09-01] VITALS (23 sets, daily range): BP systolic 82–206; BP diastolic 54–159; PULSE 67–116; RESP 16–28; TEMP 36.6–36.7; O2SAT 90–97; BMI 45.5
[2024-09-01] MEDS: LORazepam 2 MG/ML Syringe 1 MG IV ×2 (15:13→15:53)
--- NOTE | 2024-09-01 15:16 | EKG12_ITS ---
Test Reason : ED2 Blood Pressure : */* mmHG Vent. Rate : 92 BPM Atrial Rate : 92 BPM P-R Int : 150 ms QRS Dur : 84 ms QT Int : 362 ms P-R-T Axes : 50 66 75 degrees QTcB Int : 447 ms Normal sinus rhythm Nonspecific ST and T wave abnormality Abnormal ECG Confirmed by Mamadou Gregory ([id number]), magazine editor ALL PALOMINO ([id number]) on 09/02/2024 1:07:54 PM Referred By: Confirmed By: Mamadou Gregory
--- NOTE | 2024-09-01 15:17 | EX.ED.DYSGE1 ---
HPI History of Present Illness Chief Complaint: Unresponsive Informant: EMS and other (Unable to get a history from the patient at this time. Due to her overall mental status.) Onset/Context/Timing Onset: Today Context: Sudden Onset Timing: Continuous Current Severity: Severe Maximum Severity: Severe Narrative Narrative: 53-year-old female brought in by EMS. Approximately 2:30 pm this afternoon she started acting with an altered level of consciousness reportedly had a recent stroke and was hospitalized at [facility]. Family called the squad who and route the patient was having posturing of her upper extremities they were unsure if she was seizing so they gave her 5 of Versed nasally. They did not have an IV at that time. She has a blood sugar of 104 per the squad. There is no family currently here for additional history. Prior similar symptoms: No Recent Illness/Hospitalization: Yes [facility] Medical History Acute painful diabetic polyneuropathy Tightness of left heel cord Sleep apnea Osteomyelitis of great toe of left foot Dialysis patient Hypertension History of diabetes mellitus Neuropathy Amputated toe of right foot History of diabetes mellitus Abdominal wall cellulitis Abdominal wall abscess Essential hypertension Obesity Anxiety Depression Hypothyroidism Chronic pain Diabetes Smoker Diabetic foot infection Presence of permanent central venous catheter Vascular catheter fitting or adjustment SEUN (acute kidney injury) Osteomyelitis Diabetic foot ulcer Skin ulcer of left great toe with fat layer exposed Osteomyelitis of toe of right foot Osteomyelitis of second toe of right foot Meniere disease Chronic ulcer of right foot with fat 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 Obesity (BMI 30-39.9) Vertigo Hyperlipidemia Fibromyalgia Home Medications ?Medication ?Instructions ?Recorded ?Last Taken ?Type albuterol sulfate 90 mcg/actuation 2 puff inhalation Q4H PRN 08/30/19 10/19/23 History aerosol inhaler shortness of breath or wheezing atorvastatin 80 mg tablet 80 mg PO QHS cholesterol 08/30/19 10/19/23 History duloxetine 60 mg capsule,delayed 60 mg PO QHS DEPRESSION 03/21/20 10/19/23 History release multivitamin with minerals 1 tab PO DAILY SUPPLEMENT 03/21/20 10/20/23 History ergocalciferol (vitamin D2) 1,250 50,000 unit PO MOTH supplement 10/17/20 10/20/23 History mcg (50,000 unit) capsule pantoprazole 20 mg tablet,delayed 20 mg PO BID ACID REFLUX 11/11/20 10/20/23 History release gabapentin 600 mg tablet 600 mg PO BID NERVE PAIN 11/14/21 10/20/23 History hydroxyzine HCl 50 mg tablet 50 mg PO BID PRN Anxiety 09/04/22 10/17/23 History naproxen 500 mg tablet 500 mg PO BID PRN ELBOW PAIN 09/04/22 10/20/23 History insulin pump cartridge,automated #1 ea 12/19/22 Unknown Rx dose,BT with controller subcutaneous (Omnipod 5 G6 Intro Kit (Gen 5) subcutaneous cartridge with controller) losartan 100 mg tablet 100 mg PO QHS BLOOD PRESSURE 04/14/23 10/19/23 History meclizine 25 mg tablet (Dramamine 25 mg PO BID DIZZINESS 09/18/23 10/20/23 History (meclizine)) fluticasone propionate 50 2 spray intranasal QODAY nasal 10/20/23 10/19/23 History mcg/actuation nasal congestion spray,suspension Humalog U-100 Insulin 100 unit/mL 150 unit (1.5 mL) subcut DAILY 03/09/24 Unknown Rx subcutaneous solution (insulin #140 mL lispro) glimepiride 4 mg tablet 4 mg PO BID DIABETES #180 tabs 03/09/24 Unknown Rx hydrochlorothiazide 12.5 mg capsule 12.5 mg PO DAILY htn 04/15/24 Unknown History tizanidine 4 mg tablet 4 mg PO QHS PRN muscle relaxer 04/15/24 Unknown History levothyroxine 112 mcg tablet 112 mcg PO DAILY #90 tabs 07/08/24 Unknown Rx trazodone 100 mg tablet 100 mg PO QHS PRN Sleep 07/15/24 Unknown History blood-glucose sensor (Dexcom G6 #9 ea 08/03/24 Unknown Rx Sensor device) blood-glucose transmitter (Dexcom #1 ea 08/03/24 Unknown Rx G6 Transmitter device) insulin pump cart,automated,BT #15 ea 08/03/24 Unknown Rx Allergy/AdvReac Type Severity Reaction Status Date / Time clindamycin Allergy Hives Verified 08/06/24 19:27 erythromycin base (From Allergy Hives Verified 08/06/24 19:27 E-Mycin) vancomycin Allergy Hives Verified 08/06/24 19:27 Gadolinium-MRI Contrast AdvReac Other Verified 08/06/24 19:27 Medium (CONTRAST) Iodinated Contrast Media AdvReac Kidney Verified 08/06/24 19:27 (CONTRASTS) failure Surgical History Status post debridement History of amputation of great toe History of appendectomy Social History Smoking Status: Current every day smoker tobacco type: cigarettes alcohol intake: former substance use type: marijuana ROS ROS ED ROS Narrative Unknown at this time to the patient's mental status. Review of Systems ROS Unobtainable: due to mental status EXAM Physical Exam Narrative Exam Narrative: 53-year-old female vital signs are stable and her blood pressure is 206/159. She is afebrile. Her pulse ox 94% on 3 L. She brought in by squad. Patient has her arms up in the air and she is moaning. She is not following any commands or answering any questions. Prior to arrival did receive Versed. H EENT exam eyes are closed when I pry them open pupils round reactive light. Neck nontender. No lymphadenopathy. Lungs clear to auscultation bilaterally. Heart regular rhythm rate about 110 no murmur. Chest wall ribs nontender. Abdomen soft nontender. She will lift both arms. She does not follow any commands psych cannot assess her lower extremities. There are no 1 deformed without any edema. Neurologically she has a mental status change. She appears to be having a seizure. She is not answering questions. After treated with IV Ativan the seizure appeared to resolve. Const Vital Signs: 09/01/24 15:09 09/01/24 15:20 09/01/24 15:38 Temperature 97.8 F Temperature Source Temporal Pulse Rate 116 H Respiratory Rate 26 H Blood Pressure 206/159 H 100/58 L Blood Pressure Mean 174 72 Pulse Ox 94 Oxygen Delivery Method Nasal Cannula Nasal Cannula Oxygen Flow Rate (L/min) 3 3 09/01/24 16:03 Temperature Temperature Source Pulse Rate 89 Respiratory Rate 26 H Blood Pressure 114/68 Blood Pressure Mean 83 Pulse Ox 94 Oxygen Delivery Method Nasal Cannula Oxygen Flow Rate (L/min) 2 Positive well nourished and well developed; Negative for cachectic, contractures or unkempt General Appearance ED: well developed; Negative for unkempt, cachectic, contractures, cyanotic, diaphoretic, NAD or pallor Nutritional Appearance: Negative for cachectic HEENT Reports moist mucous membranes Negative for trauma or tenderness Eyes PERRL and EOMs intact bilaterally General Eye ED: Negative for pale conjunctiva or scleral icterus Neck no lymphadenopathy, supple and no JVD General: Negative for tenderness Chest Wall inspection of chest normal and palpation of chest normal Resp normal respiratory effort and clear to auscultation bilaterally Effort and Inspection: Negative for retractions Auscultation: Negative for rales, rhonchi, wheezes or diminished lung sounds Cardio regular rhythm, S1 normal heart sound, S2 normal heart sound and no murmurs; Negative for regular rate Rate: tachycardic GI normal to inspection, nondistended, normoactive bowel sounds, non-tender, non-distended and no masses Auscultation: normoactive bowel sounds Palpation: soft; Negative for tender, guarding, mass or rebound tenderness present Back/Spine no CVA tenderness General Back: Negative for CVA tenderness Cervical Spine: Negative for cervical spine tenderness Thoracic Spine / Upper Back: Negative for thoracic spinal tenderness or paraspinal muscle tenderness Lumbar Spine / Lower Back: Negative for lumbar spinal tenderness Extremity normal to inspection General Extremety ED: Negative for edema or tenderness General Extremity: Negative for edema Neuro No oriented x3 Neuro Narrative: Seizing on arrival. Resolved after Ativan. Nonresponsive to verbal or noxious stimuli. Sensorium / Orientation: alert and orientation impaired Motor Exam: Negative for strength 5/5 throughout Psych Psych Narrative: Unable to obtain. Appearance: Negative for unkempt Skin no rashes or lesions noted, no wounds and skin turgor normal General Skin Exam: Negative for jaundice or pallor Lesions: No lesion noted Rashes: No rashes noted Trauma: Negative for abrasion Wounds: Negative for wounds noted MDM MDM MDM Narrative Medical decision making narrative: 53-year-old female recent stroke reportedly. Appears to be having a seizure which resolved after IV Ativan here in the emergency department. Squatted previously given her Versed which did not seem to make a significant difference. She is going to be under stroke protocol and being taken to CAT scan. Ativan on repeat exam seen improved the patient's seizure and resolved and then she had a second seizure was given a second dose of Ativan. Labs chest x-ray and EKG are unremarkable. CAT scan shows the prior hemorrhagic stroke. It is improving. I think this is all secondary to a new onset seizure after her hemorrhagic stroke. Repeat exam patient is doing well at 4:20 PM. I spoke to family members x 2 at the bedside. Explained him I thought this was a seizure post her recent hemorrhagic stroke. Currently patient is not seizing. I have the hospitalist on page for admission. History & Record Review Discussion w/independent historian: Patient Additional record(s) reviewed:: Prior inpatient record, Prior outpatient record, Prior ED visit and Prior labs Lab Data Attestation: I reviewed the patient's lab results. Lab results narrative: CBC shows a white count of 13.9. H&H 14 and 45. Platelets 253. PT/INR of 12 and 0.9. PTT 27. Electrolytes show a sodium 137. Gap 4. BUN of 22 creatinine 1. Glucose 108. Troponin 18. Chest x-ray unremarkable. Cardiology CT of the brain shows a prior improving Right temporal lobe intraparenchymal bleed which she had recently. No new acute findings. Labs: Laboratory Results - last 24 hr 09/01/24 15:15 WBC 13.9 H RBC 4.96 Hgb 14.9 Hct 45.6 MCV 91.9 MCH 30.0 MCHC 32.7 RDW Std Deviation 47.8 H RDW Coeff of Brea 14.3 Plt Count 253 MPV 9.5 Immature Gran % (Auto) 0.500 Neut % (Auto) 64.9 Lymph % (Auto) 26.5 [place] % (Auto) 6.3 Eos % (Auto) 1.2 Baso % (Auto) 0.6 Absolute Neuts (auto) 9.1 H Absolute Lymphs (auto) 3.69 Nucleated RBC % 0 PT 12.4 INR 0.9 APTT 27.9 Sodium 137 Potassium 4.3 Chloride 105 Carbon Dioxide 28.0 Anion Gap 4 L BUN 22 H Creatinine 1.08 H Estim Creat Clear Calc 80.61 Est GFR (MDRD) Af Amer 68 Est GFR (MDRD) Non-Af 57 L BUN/Creatinine Ratio 20.4 H Glucose 108 H Calcium 9.5 Troponin I High Sens 18 Radiography Chest X-Ray - ED: 1 View and Read by ED Physician Diagnostic Testing: Clinical Impression(s) from Imaging Studies Brain CT 09/01/24 15:25 IMPRESSION: 1. Moderate decrease in the size of the intraparenchymal hemorrhage in the mid to posterior aspect of the right temporal lobe with a halo of vasogenic edema maximally measuring 4.25 x 2.14 cm on the current study, compared to the prior measurement of 5.66 x 3.22 cm. 2. No new focus of intraparenchymal or subarachnoid hemorrhage is present. 3. No demonstrated midline shift or hydrocephalus 4. Concern for stroke/positive symptomatology should be further evaluated with CT brain perfusion/CTA or MRI of the brain for further assessment. N.B. : The above Results were Read Back by Diogenes Serrano MD to Hernan Figueroa MD, and understanding confirmed on 09/01/2024 15:40:15 (ET). Electronically Signed: Diogenes Serrano MD at 15:42 EST , ADDENDUM: 09/01/24 1549 IMPRESSION: 1. Moderate decrease in the size of the intraparenchymal hemorrhage in the mid to posterior aspect of the right temporal lobe with a halo of vasogenic edema maximally measuring 4.25 x 2.14 cm on the current study, compared to the prior measurement of 5.66 x 3.22 cm. 2. No new focus of intraparenchymal or subarachnoid hemorrhage is present. 3. No demonstrated midline shift or hydrocephalus 4. Concern for stroke/positive symptomatology should be further evaluated with CT brain perfusion/CTA or MRI of the brain for further assessment. N.B. : The above Results were Read Back by Diogenes Serrano MD to Hernan Figueroa MD, and understanding confirmed on 09/01/2024 15:40:15 (ET). Electronically Signed: Diogenes Serrano MD at 15:42 EST , Rhythm Strip Rhythm Strip: Sinus Rhythm Rate: 92 Ectopy: None EKG Initial EKG: Attestation: I personally reviewed and interpreted this EKG as follows: Interpretation: Sinus Rhythm and No Acute Injury Pattern Comments: Normal sinus rhythm rate 92 no acute signs of dysrhythmia or ischemia. Critical Care Time Critical Care Time: Yes Critical care time (excluding procedures): 30-74 minutes, Including time spent:, Discussing w/Patient &/or Family/Concrete Truck Driver, Discussing w/Consultants, Arranging Admission or Transfer, Performing Direct Patient Care at Bedside and - (35 minutes) Discharge Plan Dx/Rx/DC Orders Clinical Impression: New onset seizure, History of stroke, History of intracranial hemorrhage, History of diabetes mellitus Disposition Disposition: Acute Care Hospital [facility]
--- NOTE | 2024-09-01 15:25 | CT_ITS ---
STUDY: STROKE PROTOCOL CT BRAIN WITHOUT CONTRAST REASON FOR EXAM: Female, 53 years old. Neuro deficit, acute, stroke suspected RADIATION DOSAGE (If Supplied By Facility): CTDIvol = ( ) mGy, DLP = ( ) mGycm TECHNIQUE: Transaxial CT imaging of the brain was performed without administration of intravenous contrast material. Individualized dose optimization techniques were used for this CT. Mild motion artifact is present limiting assessment. COMPARISON: Head CT dated August 06, 2024 FINDINGS: * Moderate decrease in the size of the intraparenchymal hemorrhage in the mid to posterior aspect of the right temporal lobe with a halo of vasogenic edema maximally measuring 4.25 x 2.14 cm on the current study, compared to the prior measurement of 5.66 x 3.22 cm. * No new focus of intraparenchymal or subarachnoid hemorrhage is present. * No demonstrated subdural bleed * No demonstrated midline shift or hydrocephalus * No visualized dense MCA sign Normal soft tissue structures. Normal calvarium. Normal size ventricles and extra-axial spaces for the patient''s age. Normal remaining white matter tracts of the cerebral hemispheres. Normal basal ganglia and thalami. Normal brainstem. Normal cerebellum. There are no findings of an acute ischemic infarction. Normal visualized paranasal sinuses. ASPECTS Score for Acute Strokes: 10 CT/STROKE Brain/Head without Cont IMPRESSION: 1. Moderate decrease in the size of the intraparenchymal hemorrhage in the mid to posterior aspect of the right temporal lobe with a halo of vasogenic edema maximally measuring 4.25 x 2.14 cm on the current study, compared to the prior measurement of 5.66 x 3.22 cm. 2. No new focus of intraparenchymal or subarachnoid hemorrhage is present. 3. No demonstrated midline shift or hydrocephalus 4. Concern for stroke/positive symptomatology should be further evaluated with CT brain perfusion/CTA or MRI of the brain for further assessment. N.B. : The above Results were Read Back by Diogenes Serrano MD to Hernan Figueroa MD, and understanding confirmed on 09/01/2024 15:40:15 (ET). Electronically Signed: Diogenes Serrano MD at 15:42 EST ,
[2024-09-01 15:28] LABS: Absolute Lymphocyte Count 3.69 X10^3/uL (0.83-4.51); Absolute Neutrophil Count 9.1 X10^3/uL (2.0-7.7); Basophil# 0.08 X10^3/uL; Basophil% 0.6 % (0-1); Eosinophil# 0.17 X10^3/uL; Eosinophils% 1.2 % (0-5); Hematocrit 45.6 % (37-47); Hemoglobin 14.9 g/dL (12.0-15.0); Lymphocyte # 3.69 X10^3/ul (0.83-4.51); Lymphocyte % 26.5 % (19-41); Mean Corp Hgb Conc 32.7 g/dL (32-36); Mean Corpuscular Volume 91.9 fL (81-99); Mean Platelet Vol. 9.5 fl (6.2-12.0); Monocyte# 0.88 X10^3/uL; Monocyte% 6.3 % (0-10); NRBC Flagged by Analyzer 0 % (0-5); Neutrophil # 9.05 X10^3/uL (2.7-7.7); Neutrophil % 64.9 % (47-70); Platelet Count 253 K/mm3 (150-450); RBC Distribution Width CV 14.3 % (11.6-14.6); RBC Distribution Width SD 47.8 fl (35.1-43.9); Red Blood Count 4.96 M/mm3 (4.2-5.4); White Blood Count 13.9 K/mm3 (4.4-11.0)
[2024-09-01] MEDS: 0.9% Normal Saline (500mL Bag) 500 ML 999 ML IV (15:38)
[2024-09-01 15:46] LABS: International Normalized Ratio 0.9; Partial Thromboplast Time 27.9 Seconds (24.1-36.2); Prothrombin Time (Protime)PT. 12.4 SECONDS (11.7-14.9)
[2024-09-01 15:48] LABS: Anion Gap 4 (5-15); BUN 22 mg/dL (7-18); BUN/Creat Ratio 20.4 RATIO (10-20); Calcium,Total 9.5 mg/dL (8.5-10.1); Chloride 105 mmol/L (98-107); Creatinine, Serum 1.08 mg/dL (0.55-1.02); EST Glomerular Filtration Rate 57 mL/min (>60); Est Glom Filt Rate - Afr Amer 68 mL/min (>60); Estimated Creatinine Clearance 80.61 ml/min; Glucose 108 mg/dL (74-106); Potassium 4.3 mmol/L (3.5-5.1); Sodium Level 137 mmol/L (136-145); Troponin-I HS 18 pg/mL (3.0-54.0)
--- NOTE | 2024-09-01 15:50 | RAD_ITS ---
INDICATION: Neuro deficit, acute, stroke suspected EXAMINATION/TECHNIQUE: X-RAY - XR Chest 1 View COMPARISON: FINDINGS: LINES/DEVICES: None. LUNGS: No consolidation, edema or effusion. No pneumothorax. MEDIASTINUM AND CARDIOVASCULAR STRUCTURES: Cardiac silhouette not enlarged. Central airways and mediastinal contour are unremarkable. BONES AND SOFT TISSUES: Unremarkable. RAD/Chest 1 View IMPRESSION: No radiographic evidence of acute cardiopulmonary disease. Electronically Signed: Roberto Naidu DO at 17:01 EST ,
[2024-09-01] MEDS: VALPROATE SODIUM IV (19:00)
[2024-09-01] MEDS: WATER IV (19:00)
[2024-09-01] MEDS: DEXTROSE 5% IV (19:00)
--- NOTE | 2024-09-01 19:03 | ED.RN ---
pt. placed in soft wrist restraints to deter from pulling and lines and getting out of bed.
--- NOTE | 2024-09-01 19:26 | ED.RN ---
DAY SHIFT COMMUNICATIONS ENGINEER CALLED [facility] FOR [facility] 1 TRANSPORT APPROX 1830- ETA E WAS 4 HOURS. ASKED TO OUTSOURCE DUE TO PRIORITY. THIS COMMUNICATIONS ENGINEER CALLED [facility] APPROX 1915 FOR UPDATE, SPOKE Jairo COLEY WHO SAID NO LUCK YET, WERE STILL TRYING. WILL CALL AGAIN AROUND 1999.
--- NOTE | 2024-09-01 23:01 | ED.RN ---
2130 soft wrist dcd, pt is grabbing nasal cannula,but not enough to keep restraints on.
== END 2024-09-01 23:15 | disposition short-term general hospital (02) ==
PROVIDERS: Emergency Provider Emergency Medicine; PCP Nurse Practitioner; Visit Provider Emergency Medicine
DX: R56.9 Unspecified convulsions (principal); I61.8 Other nontraumatic intracerebral hemorrhage; E11.40 Type 2 diabetes mellitus with diabetic neuropathy, unspecified; I10 Essential (primary) hypertension; E78.5 Hyperlipidemia, unspecified; Z86.73 Personal history of transient ischemic attack (TIA), and cerebral infarction without residual deficits; E03.9 Hypothyroidism, unspecified; Z79.899 Other long term (current) drug therapy; R41.82 Altered mental status, unspecified; R94.31 Abnormal electrocardiogram [ECG] [EKG]; M79.7 Fibromyalgia; Z96.41 Presence of insulin pump (external) (internal); F17.210 Nicotine dependence, cigarettes, uncomplicated; F12.90 Cannabis use, unspecified, uncomplicated
CPT/HCPCS: 70450; 71045; 80048; 84484; 85025; 85610; 85730; 93005; 96361; 96374; 99285; A4216

== ENCOUNTER 2024-09-30 11:00 | Outpatient (RCR) | payer MEDICARE, MEDICAID, SELFPAY ==
--- NOTE | 2024-08-19 10:40 | HP.PTEVAL_ITS ---
Patient's Visit Information Visit Information Visit Information: KATHRYN ESQUIVEL is a 53 year old F referred to Physical Therapy by DAVION TOBAR with a diagnosis of Hemmorhagic stroke. Date of Evaluation: 08/19/24 Physical Therapist: Jd Sinha, DPT, OCS, CSCS Visit Plan Frequency: 2x /Week Duration: 4-6 Weeks Plan: 2x/week for 4-6 weeks for teaching and progressing balance and gait ex. Lots of walking with challenges and pregait - balance exercises until I. is doing standing sink ex at home which were reviewed today to 3x10, can get more aggressive with HEP as safety allows, also reviewed balance safety and benefits of walker and cane. Subjective Subjective: 2 weeks ago had stroke adn [facility] life flighted to [place] and ICU for several days. Had HTN and and hemmorhagic and embolic in R occipital lobe. Effects vision memory and balance and seen eye doctors. Also has DM and has several to amputations. Neuropathy in feet from DM and had pool therapy for that before. 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 Has to look around before she walks. Started sitting on couch and posterior head hurt and called mom and got wrose and family took to ER. Slurred speech at the time. ICU 3 days, floor for 2 days. Discharged home with memory problems and some cognitive deficits not noticing familiar items. Balance has been OK, sometimes hard to tell with Meinieres and neuropathy. Has walker and cane but does not use them, feels I. Fell earlier in the year due to sciatic. Not weak or more numb since this. Lives alone, apartment with steps into with railing and they are no problem. Basic ADLs are all getting done I. Has not driven in a couple years. Uses provide a ride or friends to get to grocery store. Not employed. Sleeping OK. No pain. Hobbies: glass bottles decorations but has not done that. Spends day doing dishes, straightening house. Doesn't feel like doing big projects(clothes clean out etc.) No regular exercises outside of some LE movements. Needs vision therapy but not set up yet. Objective Objective: Walks slowly but I with slight wide SAMANTHA back to PT, hesitant upon standing at first to view her surroundings. Slow gait. I trasnfers with UE. Bed trasnfers I. Standing balance eo i, ec wavers but I. seems to have peripheral vision in all directions and good eye control in all directions with pursuit and saccades. hard to close R eye but able to close L. UE AROM WNL and without asymmetries in strength. LE AROM WFL, tightness in psoas and HS at -25 90/90 test. Min tightness quads. reflexes 0/3 patella and achilles Sensation LE WNL to gross light touch. strength hips 3+, knees 4- and ankles 4/5 without asymmetries. coordination to reciprocal toe and heel tap is fair. Sister leaves half way through session and patient cries shortly after feeling alone and unfamiliar, easily consoled and taken to OT. Balance/Special Test Scores Functional Gait Assessment Score: 23 % Disability: 23.3400 CATSIB Score (Max score 120 seconds): 82 Lower Extremity Functional Score: 45 TUG Test Time Seconds: 20 Goals Goal 1:: 25/30 FGA to diminish fall risk Goal Time Frame: 4-6 Weeks Goal 2:: Pt feel 100% back to normal balance Goal Time Frame: 4-6 Weeks Goal 3:: Pt able to rise from chair and walk without hesitation with TUG under 13 sseconds Goal Time Frame: 4-6 Weeks Goal 4:: I appropriate HEP to limit future problems Goal Time Frame: 4-6 Weeks Rehabilitation Potential Physical Therapy Diagnosis: imbalance and weakness leading to mobility deficits Rehabilitation Potential: Good Anticipated Interventions Patient/Client Instruction: Educate patient on: Condition and Risk Factors For the Purpose of:: To improve muscle performance and motor function, To increase tolerance to activity/condition/position, To improve ability of physical actions for home/community/work/leisure and To improve gait and locomotor functions Therapeutic Exercise to Include: Strength training, Balance training, Postural training and Gait and locomotor training For the Purpose of:: To improve nutrient delivery to tissue, To improve muscle performance and motor function and To increase tolerance to activity/con dition/position Text: Thank you for the opportunity to evaluate your patient. For Medicare and Medicare HMO plans, please review the plan of care and approve it. It will need to be FAXED BACK to us at [phone] for Medicare purposes. For Medicare only, by signing this I certify the plan of care. Please let me know if there are questions or concerns regarding this plan of care. Physician Signature: Date:
--- NOTE | 2024-08-19 10:50 | HP.OTEVAL_ITS ---
Patient's Visit Information Visit Information Visit Information: KATHRYN ESQUIVEL is a 53 year old F, referred to Occupational Therapy by DAVION TOBAR, with a diagnosis of intraparenchymal hematoma R brain. Date of Evaluation: 08/19/24 Occupational Therapist: Bere Goetz Subjective Subjective: This 53 year old female arrived with dx of intraparenchymal hematoma R side of brain which happened Nov 2023. pt complains mostly of eye sight as well as balance. Letters do not look right to pt and requires increased time to think about how things are spelled. pt has not had any falls since the stroke occurred. visual field missing L peripheral and R central portion. Pt is R hand dominant and denies any weakness in either arm. pt not working. pt likes to get out of house and go to stores/ be outside. likes to be with dog. Objective Objective/Observation: pt arrives no AD to get back to therapy location. ROM ROM Comments: BUE AROM WFL Strength Shoulder: L shoulder flex 16.2# R shoulder flex 15.2# Elbow: L bicep 27.5# R bicep 26.0# L tricep 31# R tricep 28.7# Strength Comments: L ER 27.4# R ER 25.8# Sensation Sensation Comments: denies numbness or tingling Visual/Perceptual Skills Visual Field Cut: Yes (L eye peripheral R eye center) Comments: able to draw clock correctly including setting time properly however a lternates between L and R hand to complete star cancellation screening tool score 33/54 indicating unilateral spatial neglect Cognitive Skills Follows Directions: Yes Oriented to (Check all that apply): Place Short Term Memory Impaired: No Cognitive Comments: pt with difficulty comprehending written information and requires increased time for writing out sentences/ words. pt will incorrectly use letters in words. Nine Hole Peg Right: 24 sec Left: 28 sec Quick DASH-Disab of Arm,Shoulder& Hand Quick DASH Score: 2.2723 Goals Goal:: pt will improve R shoulder flexion strength euqual to L arm in order to maximize I in IADL and day to day tasks pt will improve R bicep and tricep strength equal to L arm in order to maximize I in IADL and day to day tasks Goal:: pt will improve star cancellation score to 40 or more in order to improve ability to perform day to day tasks Goal:: pt will demonstrate 100% accuracy in UB strengthening HEP prior to discharge Rehabilitation General Assessment: This 53 year old female arrives with dx of intraparenchymal hematoma of R side of brain. Pt presents this date with decreased strength of R dominant side as well as visual field cuts L eye peripheral vision and R eye center vision. Pt would benefit from OT services 1x a week for 4 weeks in order to improve strength and work on compensatory strategies to address new vision impairments impacting pt day to day tasks. Rehabilitation Potential: Good Anticipated Interventions Anticipated Interventions: A/AAROM/PROM, Strengthening, Visual/Perceptual Skills, Education re Diagnosis and Home Program Visit Plan Frequency: 1x/Week Duration: 4 Weeks General Plan: visual compensatory strategies strengthening TEXT: Thank you for the opportunity to evaluate your patient. For Medicare and Medicare HMO plans, please review the plan of care and approve it. It will need to be FAXED BACK to us at [phone] for Medicare purposes. Please let me know if there are questions or concerns regarding this plan of care. Physician Signature: Date:
--- NOTE | 2024-11-15 13:33 | HP.PT.NRP ---
Patient Information Patient Information: KATHRYN ESQUIVEL was seen in my office for initial evaluation on 08/19/24. The following Plan of Care was established for this patient: POC Established Initial Frequency: 2x /Week Initial Duration: 4-6 Weeks Anticipated Interventions Patient/Client Instruction: Educate patient on: Condition and Risk Factors For the Purpose of:: To improve muscle performance and motor function, To increase tolerance to activity/condition/position, To improve ability of physical actions for home/community/work/leisure and To improve gait and locomotor functions Therapeutic Exercise to Include: Strength training, Balance training, Postural training and Gait and locomotor training For the Purpose of:: To improve nutrient delivery to tissue, To improve muscle performance and motor function and To increase tolerance to activity/condition/position Last Seen Last Seen: This patient was last seen in our office 09/30/24. Pertinent comments regarding their Physical therapy will appear below: Pt seen 5 visits of POC but did not schedule or attend any further. at this point, it has been over 6 weeks and I will discontinue due to nonattendance. At this point I will be discontinuing this patient from physical therapy. I would be happy to see this patient again in the future if found appropriate by the physician. Thank you! Jd Sinha, DPT, OCS, CSCS Balance/Gait/Functional tests Balance/Special Test Scores Functional Gait Assessment Score: 23 % Disability: 23.3400 CATSIB Score (Max score 120 seconds): 82 Lower Extremity Functional Score: 45 TUG Test Time Seconds: 18.41 Tug Test: <20 sec.=mostly independent
== END 2024-09-30 19:00 | disposition home or self-care (01) ==
LOC: PT 11:00
PROVIDERS: PCP Internal Medicine
DX: S06.310D Contusion and laceration of right cerebrum without loss of consciousness, subsequent encounter (principal)
CPT/HCPCS: 97110; 97116; 97163; 97165; 97530

== ENCOUNTER 2024-11-15 15:12 | Emergency (ER) | payer MEDICARE, MEDICAID, SELFPAY ==
[2024-11-15 15:14] VITALS: BP 108/71; PULSE 92; RESP 15; TEMP 36.6; O2SAT 96
== END 2024-11-15 17:17 | disposition left against medical advice (07) ==
LOC: ED 17:17
PROVIDERS: PCP Nurse Practitioner
DX: R42 Dizziness and giddiness (principal)
CPT/HCPCS: 99281

== ENCOUNTER 2025-03-30 13:53 | Emergency (ER) | payer MEDICARE, MEDICAID, SELFPAY ==
[2025-03-30 13:54] VITALS: BP 155/133; PULSE 116; RESP 30; TEMP 36.3; O2SAT 94; BMI 45.1
--- NOTE | 2025-03-30 14:07 | EDS_ITS ---
HPI History of Present Illness Chief Complaint: Seizure [facility] Medical History Acute painful diabetic polyneuropathy Tightness of left heel cord Sleep apnea Osteomyelitis of great toe of left foot Dialysis patient Hypertension History of diabetes mellitus Neuropathy Amputated toe of right foot History of diabetes mellitus Abdominal wall cellulitis Abdominal wall abscess Essential hypertension Obesity Anxiety Depression Hypothyroidism Chronic pain Diabetes Smoker Diabetic foot infection Presence of permanent central venous catheter Vascular catheter fitting or adjustment SEUN (acute kidney injury) Osteomyelitis Diabetic foot ulcer Skin ulcer of left great toe with fat layer exposed Osteomyelitis of toe of right foot Osteomyelitis of second toe of right foot Meniere disease Chronic ulcer of right foot with fat 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 Obesity (BMI 30-39.9) Vertigo Hyperlipidemia Fibromyalgia Home Medications ?Medication ?Instructions ?Recorded ?Last Taken ?Type albuterol sulfate 90 mcg/actuation 2 puff inhalation Q 4H PRN 08/30/19 10/19/23 History aerosol inhaler shortness of breath or wheez ing atorvastatin 80 mg tablet 80 mg PO QHS cholesterol 11/1703/30/25 History duloxetine 60 mg capsule,delayed 60 mg PO QHS DEPRESSI ON 03/21/20 03/29/25 History release multivitamin with minerals 1 tab PO DAILY SUPPLEMENT 0 03/21/20 03/30/25 History insulin pump cartridge,automated #1 ea 12/19/22 Unknow n Rx dose,BT with controller subcutaneous (Omnipod 5 G6 Intro Kit (Gen 5) subcutaneous cartridge with controller) fluticasone propionate 50 2 spray intranasal QODAY PRN nasal 10/20/23 10/19/23 History mcg/actuation nasal congestion spray,suspension blood-glucose sensor (Dexcom G6 #9 ea 08/03/24 Unknown Rx Sensor device) blood-glucose transmitter (Dexcom #1 ea 08/03/24 Unkno wn Rx G6 Transmitter device) levetiracetam 1,000 mg tablet 1,000 mg PO BID 10/14/24 03/30/25 History (Keppra) Humalog U-100 Insulin 100 unit/mL 150 unit (1.5 mL) wells bcut DAILY 10/22/24 Unknown Rx subcutaneous solution (insulin #140 mL lispro) insulin syringe-needle U-100 0.5 #100 ea 12/14/24 Unkn own Rx mL 31 gauge x 5/16 (BD Insulin Syringe Ultra-Fine) aspirin 81 mg tablet,delayed 81 mg PO QDAY 01/17/25 History release (Adult Aspirin Regimen) insulin pump cart,automated,BT #15 ea 03/29/25 Unknown Rx levothyroxine 112 mcg tablet 112 mcg PO DAILY #90 tabs 03/29/25 03/30/25 Rx allopurinol 100 mg tablet 100 mg PO DAILY 03/30/2510/23 History furosemide 20 mg tablet 20 mg PO DAILY 03/30/2511/23 History glimepiride 4 mg tablet 4 mg PO BID 03/30/25 Unknown History hydrochlorothiazide 25 mg tablet 50 mg PO DAILY 03/30/25 History insulin pump cart,auto,BT,G6/7 #45 ea 03/30/25 Unknown Rx (Omnipod 5 G6-G7 Pods (Gen 5) subcutaneous cartridge) lisinopril 40 mg tablet 40 mg PO DAILY 03/30/2510/23 History loratadine 10 mg tablet 10 mg PO DAILY PRN allergy s ymptoms 03/30/25 03/30/25 History (Allerclear) pantoprazole 40 mg tablet,delayed 40 mg PO DAILY 03/3003/30/25 History release Allergy/AdvReac Type Severity Reaction Status Date / Time clindamycin Allergy Hives Verified 03/30/25 13:59 erythromycin base (From Allergy Hives Verified 03/30/25 13:59 E-Mycin) vancomycin Allergy Hives Verified 03/30/25 13:59 Gadolinium-MRI Contrast AdvReac Other Verified 03/30/25 13:59 Medium (CONTRAST) Iodinated Contrast Media AdvReac Kidney Verified 03/30/25 13:59 (CONTRASTS) failure Surgical History Status post debridement History of amputation of great toe History of appendectomy Social History Smoking Status: Current every day smoker tobacco type: cigarettes alcohol intake: former substance use type: marijuana EXAM Physical Exam Const Vital Signs: 03/30/25 13:54 03/30/25 15:00 03/30/25 16:00 Temperature 97.4 F L Temperature Source Axillary Pulse Rate 116 H 87 89 Respiratory Rate 30 H 17 16 Blood Pressure 155/133 H 124/63 H 91/66 Blood Pressure Mean 140 83 76 Pulse Ox 94 96 95 Oxygen Delivery Method Room Air 03/30/25 17:00 Temperature 98 F Temperature Source Pulse Rate 78 Respiratory Rate 20 H Blood Pressure 114/67 Blood Pressure Mean 82 Pulse Ox [address] [facility] Narrative Medical decision making narrative: HISTORY OF PRESENT ILLNESS: Chief complaint: Seizure 54-year-old female history of seizure, ICH, type 2 diabetes, hyperlipidemia, fibromyalgia, osteomyelitis, status post amputation of right great toe presents concern for possible seizure. The patient says she is unsure of what happened. She states she has severe headache and feels similar to when she had an intracranial hemorrhage. Denies falls or other trauma. Denies focal weakness or loss of sensation or slurred speech. REVIEW OF SYSTEMS: Pertinent positives: Headache, questionable seizure Pertinent negatives: Chest pain, shortness of breath, abdominal pain, vomiting, diarrhea, urinary complaint PHYSICAL EXAM: Nursing triage notes reviewed, Vital signs reviewed Constitutional: please see [facility] HENT: MMM Eyes: Pupils equal round and reactive to light, Extraocular muscles intact Neck: No stridor, no JVD, full neck ROM Lungs: Clear to auscultation, No wheezing or rales. No increased work of breathing, no conversational dyspnea, no accessory muscle use, no nasal flaring. No respiratory distress noted Heart: Regular rate and rhythm, No murmurs, No rubs and No gallops, 2+ distal pulses (radial, femoral, posterior tibial) in all extremities Abdomen: Soft, there is no tenderness, rigidity, rebound or guarding, no obvious peritoneal signs, no palpable pulsatile abdominal masses, no auscultated abdominal bruit : No CVAT Extremities: No edema Neuro: No new focal neurological deficits, cranial nerves II through XII intact, 5/5 strength in all present extremities. Intact sensation to light touch in all present extremities, 2+ reflexes bilateral patella tendons. Skin: No rash or lesions noted MEDICAL DECISION MAKING: Chief Complaint: please see [facility] External records reviewed: Reviewed prior imaging: Reviewed CT scan of the brain from August 2024 showed intraparenchymal hemorrhage Factors affecting care: n as per HPI Social determinants of health: n history of tobacco use, former alcohol abuse History obtained from others: none Consults: none [facility] Narrative: The patient was initially hypertensive with a blood pressure 155/113, tachycardic with a heart rate of 116, tachypneic with respiratory 30 she was afebrile saturating 94% room air patient appeared nontoxic. I suspect her vital sign abnormalities are secondary to anxiety as patient is very anxious and emotional initial evaluation. I considered the following differential diagnosis: ICH, seizure, electrolyte disturbance, UTI, pneumonia, anemia, hypoglycemia I obtained a broad lab and image workup to further determine if the patient was suffering from a life-threatening etiology. Initially treated the patient with IV Ativan, IV Keppra to assure the patient would not have any seizures. ALL IMAGES (IF OBTAINED) HAVE BEEN PERSONALLY REVIEWED AND INTERPRETED BY MYSELF. CBC leukocytosis consistent with systemic inflammation however this is similar to prior studies, no anemia or thrombocytopenia noted Initial puncture glucose was acceptable at 138 BMP shows evidence of metabolic acidosis that is consistent with postictal state, there is no elevation anion gap. There is acute kidney injury consistent with dehydration. Chest x-ray was read reviewed personally myself and showed no acute abnormality. Looks similar to prior x-ray. Given radiologist read pulmonary venous congestion I did add on a BNP to further assess for any sign of significant volume overload or increased ventricular stretch. BNP wnl - reassuring Upon reassessment patient's vital signs improved the blood pressure 124/63, heart rate improved to 87, respiratory to 17 Trousseau saturating 96% room air was afebrile. Noncon CT head of the brain shows no evidence of ICH. On third reevaluation the patient remained neuro intact. She denied vomiting or nausea. Discussed findings of her labs images. Noted acute kidney injury offer additional IV fluids repeat labs in potential admission however patient was alert and orient x 3 and displayed capacity to make individual medical decision refused admission at this time and lieu of home oral hydration. She notes she has a neurologist and will follow-up with him as an outpatient. Discussed return precautions. Discussed seizure precaution including no driving, swimming or operating heavy machinery. The patient and/or family, caregivers express understanding. The patient and/or family, caregivers agrees with the plan. Shared decision making: I will have a discussion with the patient and or visitors regarding risk/benefits of further testing or admission. They will be made aware of of the risk/benefits inherent in this decision they will be given the opportunity to voice understanding. Total critical care time today provided was at least 0 minutes. This excludes separately billable procedures. Critical care time (if documented) is secondary to the patient having high probability of clinically significant/life threatening deterioration in the patient's condition which required my urgent intervention. Impression: 1. Seizure 2. History of seizures 3. Dehydration 4. Acute kidney Dispo: Discharge home This note was generated with [employer] dictation software. It may contain incorrect words, spelling, and punctuation that were not noted in review of the chart prior to signing. Lab Data Labs: Laboratory Results - last 24 hr 03/30/25 03/30/25 03/30/25 14:01 14:16 15:20 WBC 14.3 H RBC 4.74 Hgb 14.5 Hct 44.5 MCV 93.9 MCH 30.6 MCHC 32.6 RDW Std Deviation 47.6 H RDW Coeff of Brea 13.9 Plt Count 278 MPV 10.0 Immature Gran % (Auto) 0.300 Neut % (Auto) 61.6 Lymph % (Auto) 29.0 [place] % (Auto) 6.1 Eos % (Auto) 2.4 Baso % (Auto) 0.6 Absolute Neuts (auto) 8.8 H Absolute Lymphs (auto) 4.16 Nucleated RBC % 0 Sodium 140 Potassium 4.2 Chloride 104 Carbon Dioxide 20.7 L Anion Gap 15 BUN 39 H Creatinine 1.62 H Estim Creat Clear Calc 52.86 Est GFR (MDRD) Non-Af 38 L BUN/Creatinine Ratio 24.3 H Glucose 136 H Calcium 9.9 NT pro BNP II 117 Urine Color Yellow Urine Clarity Sl. Cloudy Urine pH 5.0 Ur Specific [place] 1.015 Urine Protein 30 H Urine Glucose (UA) Normal Urine Ketones Negative Urine Occult Blood Negative Urine Nitrite Negative Urine Bilirubin Negative Urine Urobilinogen 1 H Ur Leukocyte Esterase 100 H Urine RBC 0-5 SEEN Urine WBC 5-10 SEEN Ur Squamous Epith Cells 10-25 SEEN Amorphous Sediment 1+ Urine Bacteria 1+ Urine Mucus 0 SEEN POC Glucose 138 H Radiography Chest X-Ray - ED: Read by ED Physician Diagnostic Testing: Clinical Impression(s) from Imaging Studies Brain CT 03/30/25 14:45 IMPRESSION: 1. Ill-defined hypodense lesion in the white matter of the right temporal lobe, likely from ischemic changes from prior hemorrhage. 2. No acute intracranial hemorrhage, midline shift or mass effect. If symptoms persist, further evaluation with MRI is recommended. Reading Location: [facility] Chest X-Ray 03/30/25 14:50 IMPRESSION: Pulmonary venous congestion. Reading Location: [facility] Discharge Plan Triage Chief Complaint: Seizure ED Provider: Rodrigo Ken Dx/Rx/DC Orders Clinical Impression: Seizure Instructions: ED Seizure, Recurrent (Adult) Prescriptions: No Action (DME) Omnipod 5 G6 Intro Kit (Gen 5) Cartridge See Rx Instructions .Route Qty: 1 0RF Rx Instructions: As directed levetiracetam [Keppra] 1,000 mg tablet 1,000 mg PO BID aspirin [Adult Aspirin Regimen] 81 mg tablet,delayed release (DR/EC) 81 mg PO QDAY atorvastatin 80 MG tablet 80 mg PO QHS albuterol sulfate 1 INHALER inhaler 2 puff inhalation Q4H PRN (Reason: shortness of breath or wheezing) multivitamin with minerals 1 EACH tablet 1 tab PO DAILY duloxetine 60 MG capsule,delayed release(DR/EC) 60 mg PO QHS fluticasone propionate 50 mcg/actuation spray,suspension 2 spray INTRANASAL QODAY PRN (Reason: nasal congestion) Patient Comments: instill 2 sprays into each nostril once daily Rinse mouth after use pantoprazole 40 mg tablet,delayed release (DR/EC) 40 mg PO DAILY hydrochlorothiazide 25 mg tablet 50 mg PO DAILY furosemide 20 mg tablet 20 mg PO DAILY lisinopril 40 mg tablet 40 mg PO DAILY allopurinol 100 mg tablet 100 mg PO DAILY glimepiride 4 mg tablet 4 mg PO BID loratadine [Allerclear] 10 mg tablet 10 mg PO DAILY PRN (Reason: allergy symptoms) (DME) Dexcom G6 Sensor Device See Rx Instructions .Route Qty: 9 1RF Rx Instructions: 1 sensor q 10 days (DME) Dexcom G6 Transmitter Device See Rx Instructions .Route Qty: 1 1RF Rx Instructions: 1 transmitter q 90 days insulin lispro [Humalog U-100 Insulin] 100 unit/mL solution 150 unit subcut DAILY Qty: 140 1RF Patient Comments: PT STATES THEY RAN OUT OF THEIR PODS RECENTLY AND H[facility]EN'[facility] Rx Instructions: via insulin pump (DME) insulin syringe-needle U-100 [BD Insulin Syringe Ultra-Fine] 0.5 mL 31 gauge x 5/16 syringe See Rx Instructions .Route Qty: 100 0RF Rx Instructions: to be used as backup for pump failure levothyroxine 112 mcg tablet 112 mcg PO DAILY Qty: 90 0RF (DME) insulin pump cart,automated,BT Cartridge See Rx Instructions .Route Qty: 15 3RF Rx Instructions: 1 pod q 48 hrs (DME) Omnipod 5 G6-G7 Pods (Gen 5) Cartridge See Rx Instructions .Route Qty: 45 1RF Rx Instructions: 1 pod q 48 hrs Primary Care Provider: PANCHO DIA Referrals: Your Neurologist [Other] PANCHO DIA NP-C [Primary Care Provider] - Activity Restrictions/Additional Instructions: Thank you for trusting us with your care today! Your labs and images are reassuring. Specifically the CT scan of your head did not show signs of bleeding in the brain. Please take Tylenol (2 pills, 650 mg), ibuprofen (2 pills, 400 mg) every 6 hours as needed for pain and fever control. Please return to the emergency department if your symptoms change or worsen. Please follow with your primary care physician and/or neurologist for further outpatient evaluation and management. Print Language: Yoruba Disposition Disposition: Home, Self Care Discharge Date/Time: 03/30/25 17:23
--- NOTE | 2025-03-30 14:09 | EKG12_ITS ---
Test Reason : SEIZURE/NEURO Blood Pressure : */* mmHG Vent. Rate : 99 BPM Atrial Rate : 99 BPM P-R Int : 134 ms QRS Dur : 86 ms QT Int : 366 ms P-R-T Axes : 69 77 53 degrees QTcB Int : 469 ms Normal sinus rhythm Normal ECG Confirmed by DESIREE SEGOVIA, PHOEBE ([id number]), freelance art director AMI TOUSSAINT ([id number]) on 03/31/2025 10:08:21 AM Referred By: Rodrigo Ken Confirmed By: PHOEBE RAMÍREZ MD
--- NOTE | 2025-03-30 14:09 | EKG12_ITS ---
Test Reason : SEIZURE/NEURO Blood Pressure : */* mmHG Vent. Rate : 99 BPM Atrial Rate : 99 BPM P-R Int : 134 ms QRS Dur : 86 ms QT Int : 366 ms P-R-T Axes : 69 77 53 degrees QTcB Int : 469 ms Normal sinus rhythm Normal ECG Confirmed by DESIREE SEGOVIA, PHOEBE ([id number]), editorial intern AMI TOUSSAINT ([id number]) on 03/31/2025 10:08:21 AM Referred By: Rodrigo Ken Confirmed By: PHOEBE RAMÍREZ MD
[2025-03-30] MEDS: levETIRAcetam IV 1,000 MG/100 ML BAG 400 MG IV (14:21)
[2025-03-30] MEDS: Lorazepam 2 MG/ML WCH Syringe 1 MG IV (14:21)
[2025-03-30] MEDS: 0.9% Normal Saline (500mL Bag) 500 ML 1000 ML IV (14:22)
--- NOTE | 2025-03-30 14:45 | CT_ITS ---
EXAM: CT Head Without Intravenous Contrast CLINICAL INDICATION: SEIZURE, HISTORY OF ICH TECHNIQUE: Axial computed tomography images of the head/brain without intravenous contrast. This CT exam was performed using one or more of the following dose reduction techniques: automated exposure control, adjustment of the mA and/or kV according to patient size, and/or use of iterative reconstruction technique. COMPARISON: CT Head dated 09/01/2024 FINDINGS: BRAIN AND EXTRA-AXIAL SPACES: Ill-defined hypodense lesion in the white matter of the right temporal lobe, likely from ischemic changes from prior hemorrhage. No acute intracranial hemorrhage, midline shift or mass effect. If symptoms persist, further evaluation with MRI is recommended. BONES/JOINTS: Unremarkable. No acute fracture. SOFT TISSUES: Unremarkable. SINUSES: Unremarkable as visualized. No acute sinusitis. MASTOID AIR CELLS: Unremarkable as visualized. No mastoid effusion. CT/Brain/Head without Contrast IMPRESSION: 1. Ill-defined hypodense lesion in the white matter of the right temporal lobe , likely from ischemic changes from prior hemorrhage. 2. No acute intracranial hemorrhage, midline shift or mass effect. If symptoms persist, further evaluation with MRI is recommended. Reading [facility]
--- NOTE | 2025-03-30 14:45 | CT_ITS ---
EXAM: CT Head Without Intravenous Contrast CLINICAL INDICATION: SEIZURE, HISTORY OF ICH TECHNIQUE: Axial computed tomography images of the head/brain without intravenous contrast. This CT exam was performed using one or more of the following dose reduction techniques: automated exposure control, adjustment of the mA and/or kV according to patient size, and/or use of iterative reconstruction technique. COMPARISON: CT Head dated 09/01/2024 FINDINGS: BRAIN AND EXTRA-AXIAL SPACES: Ill-defined hypodense lesion in the white matter of the right temporal lobe, likely from ischemic changes from prior hemorrhage. No acute intracranial hemorrhage, midline shift or mass effect. If symptoms persist, further evaluation with MRI is recommended. BONES/JOINTS: Unremarkable. No acute fracture. SOFT TISSUES: Unremarkable. SINUSES: Unremarkable as visualized. No acute sinusitis. MASTOID AIR CELLS: Unremarkable as visualized. No mastoid effusion. CT/Brain/Head without Contrast IMPRESSION: 1. Ill-defined hypodense lesion in the white matter of the right temporal lobe , likely from ischemic changes from prior hemorrhage. 2. No acute intracranial hemorrhage, midline shift or mass effect. If symptoms persist, further evaluation with MRI is recommended. Reading [facility]
[2025-03-30 14:50] LABS: Hematocrit 44.5 % (37-47); Hemoglobin 14.5 g/dL (12.0-15.0); Immature Granulocytes Count 0.040 X10^3/uL (0.0-0.0); Mean Corp Hgb Conc 32.6 g/dL (32-36); Mean Corpuscular Volume 93.9 fL (81-99); Mean Platelet Vol. 10.0 fl (6.2-12.0); NRBC Flagged by Analyzer 0 % (0-5); Platelet Count 278 K/mm3 (150-450); RBC Distribution Width CV 13.9 % (11.6-14.6); RBC Distribution Width SD 47.6 fl (35.1-43.9); Red Blood Count 4.74 M/mm3 (4.2-5.4); White Blood Count 14.3 K/mm3 (4.4-11.0)
--- NOTE | 2025-03-30 14:50 | RAD_ITS ---
EXAM: XR Chest, 1 View CLINICAL INDICATION: SEIZURE TECHNIQUE: Frontal view of the chest. COMPARISON: No relevant prior studies available. FINDINGS: LUNGS AND PLEURAL SPACES: Pulmonary venous congestion. No consolidation. No pneumothorax. HEART: Unremarkable. No cardiomegaly. MEDIASTINUM: Unremarkable. Normal mediastinal contour. BONES/JOINTS: Unremarkable. No acute fracture. RAD/Chest 1 View (Portable) IMPRESSION: Pulmonary venous congestion. Reading [facility]
--- NOTE | 2025-03-30 14:50 | RAD_ITS ---
EXAM: XR Chest, 1 View CLINICAL INDICATION: SEIZURE TECHNIQUE: Frontal view of the chest. COMPARISON: No relevant prior studies available. FINDINGS: LUNGS AND PLEURAL SPACES: Pulmonary venous congestion. No consolidation. No pneumothorax. HEART: Unremarkable. No cardiomegaly. MEDIASTINUM: Unremarkable. Normal mediastinal contour. BONES/JOINTS: Unremarkable. No acute fracture. RAD/Chest 1 View (Portable) IMPRESSION: Pulmonary venous congestion. Reading Location[facility]
[2025-03-30 15:00] VITALS: BP 124/63; PULSE 87; RESP 17; O2SAT 96
[2025-03-30 15:02] LABS: Anion Gap 15 (5-15); BUN 39 mg/dL (4-19); BUN/Creat Ratio 24.3 RATIO (10-20); Calcium,Total 9.9 mg/dL (7.6-11.0); Carbon Dioxide 20.7 mmol/L (21.0-32.0); Chloride 104 mmol/L (98-108); Estimated Creatinine Clearance 52.86 ml/min (50-250); Glucose 136 mg/dL (70-99); Potassium 4.2 mmol/L (3.3-5.1)
[2025-03-30 15:33] LABS: Mucous, Urine 0 SEEN /hpf (<or=2+)
[2025-03-30 16:00] VITALS: BP 91/66; PULSE 89; RESP 16; O2SAT 95
[2025-03-30 16:09] LABS: Pro- Brain NATRIURETIC PEPTIDE 117 pg/mL (<=900)
[2025-03-30 16:39] LABS: Color, Urine Yellow (Yellow); Glucose, Dipstick Normal (Normal); Ketone-Dipstick Negative (Negative); Leukocyte Esterase-Dipstick 100 /ul (Negative); Nitrite-Dipstick Negative (Negative); Occult Blood-Urine Negative /ul (Negative); Protein-Dipstick 30 mg/dl (Negative); Specific Gravity, Urine 1.015 (1.002-1.030); Urine Bilirubin Dipstick Negative (Negative)
[2025-03-30 17:00] VITALS: BP 114/67; PULSE 78; RESP 20; TEMP 36.6; O2SAT 94
[2025-03-30 17:55] LABS: Squamous Epithelial Cells - UA 10-25 SEEN /hpf (5-10)
[2025-03-30 17:56] LABS: Red Blood Cells-Urine 0-5 SEEN /hpf (0-5)
== END 2025-03-30 17:23 | disposition home or self-care (01) ==
PROVIDERS: Emergency Provider Emergency Medicine; PCP Nurse Practitioner; Referring Provider Emergency Medicine; Visit Provider Emergency Medicine
DX: R56.9 Unspecified convulsions (principal); E11.42 Type 2 diabetes mellitus with diabetic polyneuropathy; Z79.4 Long term (current) use of insulin; I10 Essential (primary) hypertension; Z89.411 Acquired absence of right great toe; E86.0 Dehydration; E78.5 Hyperlipidemia, unspecified; Z79.82 Long term (current) use of aspirin; Z79.85 Long-term (current) use of injectable non-insulin antidiabetic drugs; Z79.899 Other long term (current) drug therapy; F17.210 Nicotine dependence, cigarettes, uncomplicated; E03.9 Hypothyroidism, unspecified; Z79.890 Hormone replacement therapy; R51.9 Headache, unspecified; N17.9 Acute kidney failure, unspecified
CPT/HCPCS: 70450; 71045; 80048; 81001; 82962; 83880; 85025; 93005; 96365; 96375; 99283; A4216